=== PATIENT | male | born 1950 | race Caucasian/White ===

== ENCOUNTER 2019-01-24 13:00 | Inpatient (IN) | payer MEDICARE, MEDICAID ==
[~2019-01-24] VITALS: Ht 170.2 cm; Wt 74.9 kg
[2019-01-24] VITALS (24 sets, daily range): BP systolic 48–145; BP diastolic 33–108
[~2019-01-24 13:00] MED LIST: Cefepime HCl 1 GM in D5W 55 ML IVPB ONE; Vancomycin 1.5 GM in NS 275 ML IVPB ONE
--- NOTE | 2019-01-24 13:12 | NUR ---
ED Nurse Note: Pt brought in to ER by ambulance from [facility] due to chest congestion and low O2 sat. upon arrival pt had 3L/min via NC and O2 sat 76%. switched to non breather mask with 15L/min and RT at bedside but still 85%. ERMD at bedside and made aware. nasal suction done by RT. pt aao x 0 and non verbal, response to deep pain only. labored, lapid breathing noted with barking and congestion sound. pt is in gown and on layer up.
--- NOTE | 2019-01-24 13:52 | NUR ---
RESPIRATORY NOTE: Attemped ABG per MD order. Unable to successfully draw. Dr. Tavarez then attempted with the aid of ultrasound and was also unable to successfully draw. Will wait for pt's pressures to rise then will re-attempt draw at later time per MD.
[2019-01-24 13:53] LABS: BASOPHILS % (AUTO) 0.8 % (0.0-2.0); EOSINOPHILS % (AUTO) 0.3 % (0.0-3.0); HEMATOCRIT 44.8 % (42.0-52.0); HEMOGLOBIN 14.2 G/DL (14.2-18.0); LYMPHOCYTES % (AUTO) 21.5 % (20.0-45.0); MEAN CORPUSCULAR VOLUME 96 FL (80-99); MONOCYTES % (AUTO) 4.4 % (1.0-10.0); NEUTROPHILS % (AUTO) 73.1 % (45.0-75.0); PLATELET COUNT 240 K/UL (150-450); RED BLOOD COUNT 4.66 M/UL (4.70-6.10); RED CELL DISTRIBUTION WIDTH 13.8 % (11.6-14.8); WHITE BLOOD COUNT 13.9 K/UL (4.8-10.8)
--- NOTE | 2019-01-24 14:00 | NUR ---
HAND-OFF: Report given to EUGENIA Sterling. 1st IV ATB completed.
--- NOTE | 2019-01-24 14:09 | NUR ---
ED Nurse Note: RT at bedside for Bi-pap.
[2019-01-24 14:20] LABS: APPEARANCE,URINE SLIGHTLY CLOUDY; BILIRUBIN, URINE NEGATIVE (NEGATIVE); GLUCOSE, URINE (UA) NEGATIVE (NEGATIVE); KETONES,URINE NEGATIVE (NEGATIVE); LEUKOCYTE ESTERASE ,URINE 1+ (NEGATIVE); NITRITE,URINE POSITIVE (NEGATIVE); PH,URINE 6 (4.5-8.0); PROTEIN,URINE 1+ (NEGATIVE); UROBILINOGEN,URINE NORMAL MG/DL (0.0-1.0)
[2019-01-24 14:24] LABS: COLOR,URINE YELLOW
--- NOTE | 2019-01-24 14:27 | Emergency Room Report ---
History of Present Illness General Chief Complaint: Dyspnea/Respdistress Source: Medical Record (Kendall Tavarez MD) Present Illness HPI Patient is a 68-year-old male sent in by private ambulance after increased congestion and fever. Patient a prior history of COPD. He was noted to have increased temperature as well as increased difficulty with respirations. He had been previously hospitalized at [facility]. He is noted to have some COPD. History is limited by patient's mental status. (Kendall Tavarez MD) Allergies: Coded Allergies: No Known Allergies (Unverified , 01/24/19) Patient History Past Medical History: see triage record Reviewed Nursing Documentation: PMH: Agreed; PSxH: Agreed (Kendall Tavarez MD) Nursing Documentation-PMH Past Medical History: No History, Except For Hx Cardiac Problems: No - Anemia Hx Hypertension: Yes Hx COPD: Yes Hx Cancer: Yes - Hx Kidney CA, Hx Dialysis: No - Chronic Renal Disease Hx Neurological Problems: No - Osteoarthritis (Kendall Tavarez MD) Review of Systems All Other Systems: limited - Review of systems: Review systems is limited by patient's being a poor historian (Kendall Tavarez MD) Physical Exam Vital Signs Date Time Temp Pulse Resp B/P (MAP) Pulse Ox O2 Delivery O2 Flow Rate FiO2 01/24/19 13:02 97.9 116 20 129/76 (93) 97 Nasal Cannula 3.0 General Appearance: alert, mild distress, Chronically Ill Eyes: bilateral eye PERRL ENT: hearing grossly normal, dry mucus membranes, nasal congestion, pharyngeal erythema Neck: limited range of motion Respiratory: other - Coarse breath sounds bilaterally Cardiovascular #1: no JVD, other - Pulses present Gastrointestinal: normal inspection, normal bowel sounds, non tender, soft Musculoskeletal: decreased range of motion Neurologic: alert, responsive Skin: no rash (Kendall Tavarez MD) Procedures Critical Care Time Critical Care Time Given the critical condition in which the patient arrived, the patient was immediately assessed by myself and the nurse, and cardiac monitoring initiated due to the potential for rapid decompensation of the patient's clinical condition. During the course of the patient's stay, I spent a considerable amount of time at the bedside performing serial re-evaluations of the patient's hemodynamic and clinical status because of the recognized potential threat to life or limb in this condition. I then had a chance to review not only all of the available current laboratory and radiographic studies obtained today, but I also reviewed old records available to me at the time. Additionally, any ancillary information available including academic coordinator records were reviewed. Sequential vital signs were obtained. Critical Care time of 32 minutes was performed exclusive of billable procedures. (Dave Stevens MD) Central Line Central Line : Consent: Emergent Maximal Sterile Barrier Tech: yes cap, yes mask, yes sterile gown, yes sterile gloves, yes large sterile sheet, yes hand hygiene, yes chlorhexidine prep No Max Barrier Tech Because: emergency insertion Central Line Postion: femoral (R) Anesthesia: Lidocaine cc's of anesthesia: 5 Complications: none Central Line Post Position: sutured, good blood return Attempts: One Patient Tolerated: Well Complications: None (Dave Stevens MD) Intubation Intubation : Consent: Emergent Time of Intubation: 17:50 Intubation Method: orotracheal Tube Size (cm): 7.5 Medications: Etomidate, Rocuronium Breath Sounds after Intubation: equal Intubation Complications: no complications Post Intubation Xray: Yes Attempts: One Patient Tolerated: Well Complications: None (Dave Stevens MD) Medical Decision Making Diagnostic Impression: Primary Impression: Sepsis Qualified Codes: A41.9 - Sepsis, unspecified organism Additional Impressions: COPD (chronic obstructive pulmonary disease) Qualified Codes: J44.9 - Chronic obstructive pulmonary disease, unspecified Dehydration ER Course Patient presented for fever and increased congestion. Differential diagnosis include was not limited to pneumonia, chronic bronchitis, sepsis, among others. Because of complexity of patient's case laboratory tests and imaging studies were ordered. EKG interpreted by me showed sinus tachycardia. Patient was noted to have initial somnolence and was started on supplemental oxygen due to decreased oxygen saturation. He was noted to have symptoms consistent with sepsis and was started on IV antibiotics after blood cultures were obtained. Patient was noted to be normotensive. Patient is given IV fluids as well as IV antibiotics. He was started on BiPAP as well as end-tidal CO2 monitoring. Dr. Corey Short was contacted for inpatient management. Patient was endorsed to Dr. Stevens pending ABG. Labs Test 01/24/19 13:20 01/24/19 13:35 White Blood Count 13.9 K/UL (4.8-10.8) Red Blood Count 4.66 M/UL (4.70-6.10) Hemoglobin 14.2 G/DL (14.2-18.0) Hematocrit 44.8 % (42.0-52.0) Mean Corpuscular Volume 96 FL (80-99) Mean Corpuscular Hemoglobin 30.4 PG (27.0-31.0) Mean Corpuscular Hemoglobin Concent 31.6 G/DL (32.0-36.0) Red Cell Distribution Width 13.8 % (11.6-14.8) Platelet Count 240 K/UL (150-450) Mean Platelet Volume 6.2 FL (6.5-10.1) Neutrophils (%) (Auto) 73.1 % (45.0-75.0) Lymphocytes (%) (Auto) 21.5 % (20.0-45.0) Monocytes (%) (Auto) 4.4 % (1.0-10.0) Eosinophils (%) (Auto) 0.3 % (0.0-3.0) Basophils (%) (Auto) 0.8 % (0.0-2.0) Urine Color Yellow Urine Appearance Slightly cloudy Urine pH 6 (4.5-8.0) Urine Specific Stoddard 1.015 (1.005-1.035) Urine Protein 1+ (NEGATIVE) Urine Glucose (UA) Negative (NEGATIVE) Urine Ketones Negative (NEGATIVE) Urine Blood 2+ (NEGATIVE) Urine Nitrite Positive (NEGATIVE) Urine Bilirubin Negative (NEGATIVE) Urine Urobilinogen Normal MG/DL (0.0-1.0) Urine Leukocyte Esterase 1+ (NEGATIVE) Urine RBC 5-10 /HPF (0 - 0) Urine WBC 2-4 /HPF (0 - 0) Urine Squamous Epithelial Cells Few /LPF (NONE/OCC) Urine Bacteria Occasional /HPF (NONE) (Kendall Tavarez MD) ER Course Reevaluation 5:35 PM, patient became obtunded, hypotensive systolic blood pressure 70, requiring central line placement as well as intubation Patient will be upgraded to ICU Reevaluation 6:18 PM, blood pressures improving, fluid boluses started, norepinephrine titrated to effect Vent orders changed Dr. Short notified Laboratory Tests Test 01/24/19 13:20 01/24/19 13:35 01/24/19 15:15 White Blood Count 13.9 K/UL (4.8-10.8) H Red Blood Count 4.66 M/UL (4.70-6.10) L Hemoglobin 14.2 G/DL (14.2-18.0) Hematocrit 44.8 % (42.0-52.0) Mean Corpuscular Volume 96 FL (80-99) Mean Corpuscular Hemoglobin 30.4 PG (27.0-31.0) Mean Corpuscular Hemoglobin Concent 31.6 G/DL (32.0-36.0) L Red Cell Distribution Width 13.8 % (11.6-14.8) Platelet Count 240 K/UL (150-450) Mean Platelet Volume 6.2 FL (6.5-10.1) L Neutrophils (%) (Auto) 73.1 % (45.0-75.0) Lymphocytes (%) (Auto) 21.5 % (20.0-45.0) Monocytes (%) (Auto) 4.4 % (1.0-10.0) Eosinophils (%) (Auto) 0.3 % (0.0-3.0) Basophils (%) (Auto) 0.8 % (0.0-2.0) Urine Color Yellow Urine Appearance Slightly cloudy Urine pH 6 (4.5-8.0) Urine Specific Stoddard 1.015 (1.005-1.035) Urine Protein 1+ (NEGATIVE) H Urine Glucose (UA) Negative (NEGATIVE) Urine Ketones Negative (NEGATIVE) Urine Blood 2+ (NEGATIVE) H Urine Nitrite Positive (NEGATIVE) H Urine Bilirubin Negative (NEGATIVE) Urine Urobilinogen Normal MG/DL (0.0-1.0) Urine Leukocyte Esterase 1+ (NEGATIVE) H Urine RBC 5-10 /HPF (0 - 0) H Urine WBC 2-4 /HPF (0 - 0) Urine Squamous Epithelial Cells Few /LPF (NONE/OCC) Urine Bacteria Occasional /HPF (NONE) Arterial Blood pH 7.240 (7.350-7.450) Arterial Blood Partial Pressure CO2 61.6 mmHg (35.0-45.0) *H Arterial Blood Partial Pressure O2 23.0 mmHg (75.0-100.0) Arterial Blood HCO3 25.8 mmol/L (22.0-26.0) Arterial Blood Oxygen Saturation 28.5 % (95-100) *L Arterial Blood Base Excess -2.7 (-2-2) L Kvng Test N/a Microbiology Date/Time Source Procedure Growth Status 11/10/19 13:35 Nasal Nares - Final Complete 01/24/19 13:35 Nasal Nares - Final Complete (Dave Stevens MD) EKG Diagnostic Results Rate: tachycardiac Rhythm: NSR ST Segments: no acute changes (Kendall Tavarez MD) Last Vital Signs Date Time Temp Pulse Resp B/P (MAP) Pulse Ox O2 Delivery O2 Flow Rate FiO2 01/24/19 13:10 116 20 Non-Rebreather 15.0 01/24/19 13:10 97.9 98/56 78 Status: unchanged (Kendall Tavarez MD) Disposition: ADMITTED INPATIENT Condition: Serious Referrals: Corey Short DO (PCP) Kendall Tavarez MD Jan 24, 2019 14:27 Dave Stevens MD Jan 24, 2019 17:45
[2019-01-24] MEDS ORDERED: MULTIVITAMINS1 EAC2 ORAL (16:42)
[2019-01-24] MEDS ORDERED: LIDODERM700 M1 TOPIC (16:42)
[2019-01-24] MEDS ORDERED: ZINC SULFATE220 M1 ORAL (16:42)
[2019-01-24] MEDS ORDERED: PLAVIX75 MG ORAL (16:42)
[2019-01-24] MEDS ORDERED: FERROUS SULFAT325 MG ORAL (16:42)
[2019-01-24] MEDS ORDERED: ARICEPT5 MG ORAL (16:42)
[2019-01-24] MEDS ORDERED: PROTONIX40 MG ORAL (16:42)
[2019-01-24] MEDS ORDERED: VITAMIN B-12500 MCG ORAL (16:42)
[2019-01-24] MEDS ORDERED: NEURONTIN100 MG ORAL (16:42)
[2019-01-24] MEDS ORDERED: VITAMIN C500 M1 ORAL (16:42)
[2019-01-24] MEDS ORDERED: LOVENOX10 M4 SUBQ (16:42)
--- NOTE | 2019-01-24 17:15 | NUR ---
ED Nurse Note: ERMD at bedside, inserting central line in R femoral after BP found to be 88/45, pt tolerated well. Verbal order to start levophed per order and 2L NS. Levophed at 15mcg initially, monitoring at bedside. Please disregard 7391 entry on IV flow sheet.
--- NOTE | 2019-01-24 17:16 | NUR ---
NURSE NOTES: Report received from EUGENIA Fritz. awaiting for arrival to room 246-B.
[2019-01-24] MEDS ORDERED: Levophed 4mg/4mL Inj IV ONE (17:28)
[2019-01-24] MEDS ORDERED: Etomidate 40mg/20ml Inj IV ONE ×2 (17:45→20:37)
[2019-01-24] MEDS ORDERED: Rocuronium Bromide 50mg/5ml Inj IV ONE ×2 (17:45→20:37)
--- NOTE | 2019-01-24 17:45 | NUR ---
ED Nurse Note: ERMD at bedside intubating pt, RT present. Pt tolerating well. INtubation medications given per MD order.
--- NOTE | 2019-01-24 18:20 | NUR ---
ED Nurse Note: Levo titrated down to 10mcg. BP 147/72, ERMD aware
--- NOTE | 2019-01-24 18:25 | NUR ---
ED Nurse Note: Levo titrated down to 56mcg per ERMD order, BP 127/82
--- NOTE | 2019-01-24 18:40 | NUR ---
TRANSFER TO FLOOR: Patient transferred to as ordered, per DR Short. Report given to EUGENIA Cortes. Belongings and medications given to . Family and or S/O informed of transfer.
--- NOTE | 2019-01-24 19:00 | NUR ---
NURSE NOTES: Patient arrived from ICU with Levophed at 5mcg/min and propofol at 5mcg/kg/min, patient is saturating at 93-96% with RR of 22, Ventilator setting of ac 22, tv 480, FIO2 of 30% with peep of 5. ET-tube is 7.5 at 26 and awaiting for chest x-ray,
--- NOTE | 2019-01-24 19:30 | NUR ---
NURSE NOTES: Received report from Sebastian BELLO. patient in bed sedated Rass score -2, currently receiving Diprivan at 5mcg/kg/min and Levophed at 30mcg/min. pt bp @1914 48/36. Right femoral TLC intact, dressing dry and intact. s/p intubation in ER. Vent setting ETT 7.5/26cm AC 22, TV 480,Fi02 30%, peep of 5 satting 98%. SR on sous chef kitchen manager HR 88. Briar Shop Supervisor to redraw blood, previous lab drawn was hemolyzed.body assessment done. will follow wound care order. bed alarm on. bed locked and in low position. Will continue plan of care. will call MD for admission orders.
--- NOTE | 2019-01-24 19:31 | NUR ---
HAND-OFF: Report given to EUGENIA Winter.
--- NOTE | 2019-01-24 19:31 | NUR ---
NURSE NOTES: spoke with Dr. Anthony per he will place the admission order, and per MD D/C the Diprivan medication.
--- NOTE | 2019-01-24 19:50 | NUR ---
NURSE NOTES: Dr. Anthony placed an order noted and carried out.
[2019-01-24] MEDS ORDERED: Albuterol/Ipratropium 3ml neb HHN PRN (20:00)
[2019-01-24] MEDS ORDERED: Morphine Sulfate 4mg/ml Inj (IV USE ONLY) IVP PRN (20:00)
--- NOTE | 2019-01-24 20:00 | NUR ---
NURSE NOTES: Inserted OGT and Costello catheter per Md's order.
--- NOTE | 2019-01-24 20:00 | NUR ---
NURSE NOTES: Patient in bed sedated, no moaning no facial grimaces. Continue on Levophed @ 30mcg/min BP 127/61. turned and repositioned. Costello draining with dark danelle color urine. Kept clean and dry. No s/s of acute distress noted. frequent visual checks continued.
[2019-01-24] MEDS ORDERED: Norepinephrine Bitartrate 8 MG in D5W 500ml 550 ML IV SCH (20:15)
[2019-01-24] MEDS: Heparin 5000 units/ml inj SUBQ SCH (20:21)
[2019-01-24] MEDS ORDERED: Dyna-Hex 2% Top Sol 2oz TOPIC SCH (20:30)
[2019-01-24] MEDS: Norepinephrine Bitartrate 8 MG in D5W 500ml 492 ML IV SCH (20:58)
--- NOTE | 2019-01-24 21:07 | Diagnostic Imaging Report ---
Indication: NG tube placement Comparison: None Single view of the abdomen obtained Findings: The proximal port in the distal ports are both within the stomach. IMPRESSION: NG tube is satisfactory in position
[2019-01-24 21:12] LABS: ANION GAP 11 mmol/L (5-15); BLOOD UREA NITROGEN 33 mg/dL (7-18); CALCIUM 7.7 MG/DL (8.5-10.1); CARBON DIOXIDE 24 MMOL/L (21-32); CHLORIDE 109 MMOL/L (98-107); CREATININE 2.6 MG/DL (0.55-1.30); POTASSIUM 4.4 MMOL/L (3.5-5.1); SODIUM 144 MMOL/L (136-145)
[2019-01-24 21:25] LABS: ALANINE AMINOTRANSFERASE 18 U/L (12-78); ALBUMIN/GLOBULIN RATIO 0.4 (1.0-2.7); ALKALINE PHOSPHATASE 121 U/L (46-116); ASPARTATE AMINO TRANSFERASE 29 U/L (15-37); BILIRUBIN,TOTAL 0.9 MG/DL (0.2-1.0); CKMB 1.9 NG/ML (0.0-3.6); CREATINE KINASE 177 U/L (26-308); PHOSPHORUS 2.5 MG/DL (2.5-4.9)
[2019-01-24] MEDS ORDERED: Amikacin 1,000 MG in NS 110 ML IV SCH (22:00)
[2019-01-24] MEDS: Ertapenem 1 GM in NS 55 ML IV SCH (22:14)
[2019-01-24] MEDS ORDERED: Vancomycin 1 GM in D5W 275 ML IV SCH (23:45)
[2019-01-25] VITALS (64 sets, daily range): BP systolic 49–133; BP diastolic 31–90
--- NOTE | 2019-01-25 | NUR ---
NURSE NOTES: patient waking up with episode of trying to pull out tubing reality orientation provided, talk therapy provided and reposition patient not effective. MD aware with order bilateral soft wrist restraint. Titrated Levophed at 28mcg/min BP 127/61. will continue plan of care
--- NOTE | 2019-01-25 02:00 | NUR ---
NURSE NOTES: Bed bath given. temp 98 axillary. no s/s of acute distress noted.
[2019-01-25] MEDS: Norepinephrine Bitartrate 8 MG in D5W 500ml 492 ML IV SCH ×4 (02:05→17:29)
--- NOTE | 2019-01-25 03:00 | NUR ---
NURSE NOTES: Titrate Levophed at 26mcg/min BP 119/61, patient in bed with episode of pulling out tubing, bilateral soft wrist restraint checked every 2 hours. turned and repositioned. suctioned and oral care provided. frequent visual checks continued.
--- NOTE | 2019-01-25 04:31 | NUR ---
NURSE NOTES: wasted Diprivan 90ml with Charge Nurse, and signed wasted in Pyxis.
[2019-01-25 05:20] LABS: HEMATOCRIT 33.3 % (42.0-52.0); HEMOGLOBIN 10.6 G/DL (14.2-18.0); MEAN CORPUSCULAR VOLUME 95 FL (80-99); PLATELET COUNT 194 K/UL (150-450); RED BLOOD COUNT 3.53 M/UL (4.70-6.10); RED CELL DISTRIBUTION WIDTH 13.5 % (11.6-14.8)
[2019-01-25 05:40] LABS: WHITE BLOOD COUNT 29.7 K/UL (4.8-10.8)
[2019-01-25 05:46] LABS: ALANINE AMINOTRANSFERASE 11 U/L (12-78); ALBUMIN 1.6 G/DL (3.4-5.0); ALBUMIN/GLOBULIN RATIO 0.3 (1.0-2.7); ALKALINE PHOSPHATASE 104 U/L (46-116); ANION GAP 6 mmol/L (5-15); ASPARTATE AMINO TRANSFERASE 28 U/L (15-37); BILIRUBIN,DIRECT 0.1 MG/DL (0.0-0.3); BILIRUBIN,TOTAL 0.3 MG/DL (0.2-1.0); BLOOD UREA NITROGEN 29 mg/dL (7-18); CALCIUM 6.9 MG/DL (8.5-10.1); CARBON DIOXIDE 23 MMOL/L (21-32); CHLORIDE 111 MMOL/L (98-107); CREATININE 2.3 MG/DL (0.55-1.30); POTASSIUM 4.5 MMOL/L (3.5-5.1); SODIUM 140 MMOL/L (136-145)
--- NOTE | 2019-01-25 07:10 | NUR ---
HAND-OFF: Report given to Isreal Gracia RN.Endorsed to am nurse to follow up WBC to DR. Tesfaye. Dr. Anthony gave order for magnesium 1.7. give magnesium sulfate 2 gram noted and carried out.patient in bed resting. no s/s of acute distress noted.
--- NOTE | 2019-01-25 07:11 | NUR ---
NURSE NOTES: Received PT and report from EUGENIA Winter; PT received intubated ETT 7.5 @ 26cm at R-lip, vent settings AC 22; TV 500; 40%; peep 5; saturating at 100%; no respiratory distress noted, bilateral upper extremity is warm to touch, bilateral lower extremity is cool to touch, morning R-axillary temperature is 97.6; opens eyes with light sternal pain, has bilateral wrist restraints no S/S of injury, bilateral radial pulses present, will continue to monitor. VS stable, monitor showing SR @ HR 72; has R-fem TLC received infusing levophed @ 26mcg/min and NS @ 100cc. PT has mcmahon, patent and intact. Morning labs shows low Mg, will give PT Mg, followup on PT BS if sliding scale is needed. Will continue with plan of care and monitor PT.
[2019-01-25] MEDS: Pantoprazole Inj IVP SCH (08:43)
[2019-01-25] MEDS: Heparin 5000 units/ml inj SUBQ SCH ×2 (08:44→20:33)
--- NOTE | 2019-01-25 08:59 | NUR ---
NURSE NOTES: Morning meds given; PT has large oral sections, suctioning given, will continue to monitor. PT saturating at 99% after vent changes made.
[2019-01-25] MEDS ORDERED: NS 275ml ONE ×2 (09:03→16:21)
[2019-01-25] MEDS ORDERED: Tubing IV Secondary IV ONE ×2 (09:03→16:21)
[2019-01-25] MEDS ORDERED: NS Irrig 1000ml ONE (09:03)
[2019-01-25] MEDS ORDERED: Vancomycin 1.25gm/NS Premix q24h IVPB SCH (10:00)
--- NOTE | 2019-01-25 10:19 | Consultation ---
History of Present Illness General Date patient seen: Jan 25, 2019 Chief Complaint: Dyspnea/Respdistress Present Illness HPI 68 year old make with hx of dementia, schizophrenia, PVD with grafts, COPD, ? renal cell cancer, retirement resident presented to ER with CC of increasing shortness of breath. He was in respiratory failure in ER and got intubated and put on ventilator. He was hypotensive as well and needed Levophed drip. Allergies: Coded Allergies: No Known Allergies (Unverified , 01/24/19) Medication History Scheduled Ascorbic Acid* (Vitamin C*), 500 MG ORAL DAILY, (Reported) Clopidogrel Bisulfate* (Plavix*), 75 MG ORAL DAILY, (Reported) Cyanocobalamin (Vitamin B-12)* (Vitamin B-12*), 1,000 MCG ORAL QHS, (Reported) Donepezil Hcl* (Aricept*), 5 MG ORAL DAILY, (Reported) Enoxaparin* (Lovenox*), 40 MG SUBQ DAILY, (Reported) Ferrous Sulfate* (Ferrous Sulfate*), 325 MG ORAL DAILY, (Reported) Gabapentin* (Neurontin*), 300 MG ORAL THREE TIMES A DAY, (Reported) Lidocaine Patch* (Lidoderm Patch*), 1 PATCH TOPIC DAILY, (Reported) Multivitamins* (Multivitamins*), 1 TAB ORAL DAILY, (Reported) Pantoprazole* (Protonix*), 40 MG ORAL DAILY, (Reported) Zinc Sulfate (Zinc Sulfate*), 220 MG ORAL DAILY, (Reported) Patient History Healthcare decision maker Self Resuscitation status Full Code Advanced Directive on File No Past Medical/Surgical History Past Medical/Surgical History: (1) COPD (chronic obstructive pulmonary disease) (2) Chronic kidney disease (3) Malignant neoplasm of right kidney (4) PVD (peripheral vascular disease) (5) Schizophrenia Review of Systems All Other Systems: negative except mentioned in HPI Physical Exam General Appearance: WD/WN, no apparent distress Lines, tubes and drains: peripheral HEENT: normocephalic, atraumatic Neck: non-tender, normal alignment Respiratory/Chest: chest wall non-tender, lungs clear Breasts: no masses Cardiovascular/Chest: normal peripheral pulses Abdomen: normal bowel sounds, non tender Genitourinary/Rectal: normal genital exam, normal rectal exam Extremities: normal range of motion, non-tender Skin Exam: normal pigmentation 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 Last 24 Hour Vital Signs Date Time Temp Pulse Resp B/P (MAP) Pulse Ox O2 Delivery O2 Flow Rate FiO2 01/25/19 09:25 70 22 35 01/25/19 09:18 112/52 01/25/19 09:00 77 14 112/52 (72) 99 01/25/19 08:30 79 26 115/53 (73) 95 01/25/19 08:18 108/61 01/25/19 08:00 Mechanical Ventilator 01/25/19 08:00 40 01/25/19 08:00 74 22 108/61 (77) 99 01/25/19 07:30 97.6 71 23 121/57 (78) 100 01/25/19 07:18 106/87 01/25/19 07:07 67 22 106/87 (93) 93 01/25/19 07:06 74 23 40 01/25/19 07:05 65 22 49/31 (37) 95 01/25/19 07:00 66 22 55/33 (40) 97 01/25/19 07:00 106/87 01/25/19 06:45 66 22 112/52 (72) 97 01/25/19 06:30 62 22 115/56 (75) 99 01/25/19 06:15 62 22 111/56 (74) 99 01/25/19 06:00 63 22 112/59 (76) 99 01/25/19 06:00 111/56 01/25/19 05:45 67 22 115/60 (78) 99 01/25/19 05:30 68 22 115/57 (76) 100 01/25/19 05:15 65 22 40 01/25/19 05:15 67 21 114/57 (76) 100 01/25/19 05:00 114/57 01/25/19 05:00 68 21 112/56 (74) 100 01/25/19 04:45 69 22 115/58 (77) 98 01/25/19 04:30 71 24 118/58 (78) 99 01/25/19 04:19 73 19 113/56 (75) 100 01/25/19 04:15 72 22 87/51 (63) 100 01/25/19 04:00 40 01/25/19 04:00 116/58 01/25/19 04:00 97.9 71 22 116/58 (77) 99 01/25/19 04:00 Mechanical Ventilator 01/25/19 04:00 84 01/25/19 03:45 72 21 99/61 (74) 99 01/25/19 03:30 70 21 112/81 (91) 99 01/25/19 03:15 68 23 112/59 (76) 98 01/25/19 03:00 69 23 119/61 (80) 99 01/25/19 03:00 66 22 40 01/25/19 03:00 119/61 01/25/19 02:45 68 23 109/67 (81) 98 01/25/19 02:30 69 22 119/62 (81) 99 01/25/19 02:15 69 21 118/61 (80) 99 01/25/19 02:05 118/60 01/25/19 02:00 68 22 118/60 (79) 98 01/25/19 02:00 123/38 01/25/19 01:45 67 22 110/61 (77) 98 01/25/19 01:30 68 22 120/62 (81) 98 01/25/19 01:15 69 22 122/62 (82) 99 01/25/19 01:14 68 22 40 01/25/19 01:00 125/49 01/25/19 01:00 67 22 123/62 (82) 100 01/25/19 00:45 68 22 121/61 (81) 98 01/25/19 00:30 71 19 128/57 (80) 98 01/25/19 00:15 70 19 127/61 (83) 99 01/25/19 00:00 Mechanical Ventilator 01/25/19 00:00 Mechanical Ventilator 01/25/19 00:00 81 01/25/19 00:00 99.0 73 24 127/61 (83) 98 01/25/19 00:00 127/61 01/24/19 23:45 71 22 130/62 (84) 98 01/24/19 23:30 72 22 128/62 (84) 98 01/24/19 23:15 72 22 132/64 (86) 97 01/24/19 23:08 72 23 40 01/24/19 23:00 132/64 01/24/19 23:00 73 22 129/63 (85) 98 01/24/19 22:15 76 22 130/62 (84) 97 01/24/19 22:00 78 22 132/63 (86) 100 01/24/19 22:00 132/63 01/24/19 21:45 79 22 137/63 (87) 100 01/24/19 21:30 79 22 134/58 (83) 100 01/24/19 21:21 81 22 40 01/24/19 21:15 79 22 124/57 (79) 100 01/24/19 21:00 79 22 126/55 (78) 99 01/24/19 20:58 84/51 01/24/19 20:57 68/47 01/24/19 20:45 80 22 68/47 (54) 99 01/24/19 20:30 83 22 115/59 (77) 97 01/24/19 20:15 88 22 123/65 (84) 94 01/24/19 20:00 78 01/24/19 20:00 Mechanical Ventilator 01/24/19 20:00 30 01/24/19 20:00 123/65 01/24/19 20:00 89 22 122/62 (82) 94 01/24/19 19:45 89 22 122/62 (82) 94 01/24/19 19:30 22 127/62 Mechanical Ventilator 30 01/24/19 19:30 Endotracheal Tube 01/24/19 19:30 86 22 118/62 (80) 94 01/24/19 19:29 86 01/24/19 19:22 88 19 96 Mechanical Ventilator 30 01/24/19 19:15 99.4 89 22 48/36 (40) 94 01/24/19 19:14 48/36 01/24/19 19:05 96 01/24/19 19:00 100.0 96 22 125/66 (85) 92 01/24/19 18:56 90 22 30 01/24/19 18:40 98.2 95 25 127/82 100 Mechanical Ventilator 21 01/24/19 18:40 97.9 122 25 117/65 100 Mechanical Ventilator 6.0 21 01/24/19 18:38 25 117/65 Mechanical Ventilator 21 01/24/19 18:25 128/89 01/24/19 18:23 25 99/57 Mechanical Ventilator 21 01/24/19 18:20 147/80 01/24/19 18:10 90 24 21 01/24/19 17:53 77/52 01/24/19 17:52 77/52 01/24/19 17:30 98.4 105 25 77/52 100 21 01/24/19 17:00 94 24 100 Facial 100 01/24/19 17:00 98.2 96 25 60/33 100 6.0 100 01/24/19 15:00 97.9 126 25 145/105 100 6.0 100 01/24/19 15:00 88 26 100 Facial 100 01/24/19 14:00 90 24 98 Facial 40 01/24/19 14:00 97.9 122 24 118/108 98 Simple Mask 40 01/24/19 14:00 80 22 88 Simple Mask 6.0 44 01/24/19 13:10 116 20 Non-Rebreather 15.0 01/24/19 13:10 97.9 122 20 98/56 78 Non-Rebreather 15.0 01/24/19 13:02 97.9 116 20 129/76 (93) 97 Nasal Cannula 3.0 Intake and Output 01/24/19 01/25/19 19:00 07:00 Intake Total 0 ml 2593.898 ml Output Total 120 ml 900 ml Balance -120 ml 1693.898 ml Intake Oral 0 ml IV Total 2593.898 ml Output Urine Total 120 ml 900 ml Laboratory Tests Test 01/24/19 13:20 01/24/19 13:35 01/24/19 15:15 01/24/19 19:36 White Blood Count 13.9 K/UL (4.8-10.8) H Red Blood Count 4.66 M/UL (4.70-6.10) L Hemoglobin 14.2 G/DL (14.2-18.0) Hematocrit 44.8 % (42.0-52.0) Mean Corpuscular Volume 96 FL (80-99) Mean Corpuscular Hemoglobin 30.4 PG (27.0-31.0) Mean Corpuscular Hemoglobin Concent 31.6 G/DL (32.0-36.0) L Red Cell Distribution Width 13.8 % (11.6-14.8) Platelet Count 240 K/UL (150-450) Mean Platelet Volume 6.2 FL (6.5-10.1) L Neutrophils (%) (Auto) 73.1 % (45.0-75.0) Lymphocytes (%) (Auto) 21.5 % (20.0-45.0) Monocytes (%) (Auto) 4.4 % (1.0-10.0) Eosinophils (%) (Auto) 0.3 % (0.0-3.0) Basophils (%) (Auto) 0.8 % (0.0-2.0) Urine Color Yellow Urine Appearance Slightly cloudy Urine pH 6 (4.5-8.0) Urine Specific [place] 1.015 (1.005-1.035) Urine Protein 1+ (NEGATIVE) H Urine Glucose (UA) Negative (NEGATIVE) Urine Ketones Negative (NEGATIVE) Urine Blood 2+ (NEGATIVE) H Urine Nitrite Positive (NEGATIVE) H Urine Bilirubin Negative (NEGATIVE) Urine Urobilinogen Normal MG/DL (0.0-1.0) Urine Leukocyte Esterase 1+ (NEGATIVE) H Urine RBC 5-10 /HPF (0 - 0) H Urine WBC 2-4 /HPF (0 - 0) Urine Squamous Epithelial Cells Few /LPF (NONE/OCC) Urine Bacteria Occasional /HPF (NONE) Arterial Blood pH 7.240 (7.350-7.450) 7.381 (7.350-7.450) Arterial Blood Partial Pressure CO2 61.6 mmHg (35.0-45.0) *H 36.3 mmHg (35.0-45.0) Arterial Blood Partial Pressure O2 23.0 mmHg (75.0-100.0) 81.2 mmHg (75.0-100.0) Arterial Blood HCO3 25.8 mmol/L (22.0-26.0) 21.0 mmol/L (22.0-26.0) L Arterial Blood Oxygen Saturation 28.5 % (95-100) *L 95.0 % (95-100) Arterial Blood Base Excess -2.7 (-2-2) L -3.5 (-2-2) L Kvng Test N/a Positive Test 01/24/19 20:45 01/24/19 23:00 01/25/19 04:00 01/25/19 04:05 Sodium Level 144 MMOL/L (136-145) 140 MMOL/L (136-145) Potassium Level 4.4 MMOL/L (3.5-5.1) 4.5 MMOL/L (3.5-5.1) Chloride Level 109 MMOL/L (98-107) H 111 MMOL/L (98-107) H Carbon Dioxide Level 24 MMOL/L (21-32) 23 MMOL/L (21-32) Anion Gap 11 mmol/L (5-15) 6 mmol/L (5-15) Blood Urea Nitrogen 33 mg/dL (7-18) H 29 mg/dL (7-18) H Creatinine 2.6 MG/DL (0.55-1.30) H 2.3 MG/DL (0.55-1.30) H Estimat Glomerular Filtration Rate 24.7 mL/min (>60) 28.4 mL/min (>60) Glucose Level 222 MG/DL (74-106) H 260 MG/DL (74-106) H Lactic Acid Level 2.70 mmol/L (0.4-2.0) H 2.10 mmol/L (0.66-2.22) 2.80 mmol/L (0.4-2.0) H Calcium Level 7.7 MG/DL (8.5-10.1) L 6.9 MG/DL (8.5-10.1) L Phosphorus Level 2.5 MG/DL (2.5-4.9) Magnesium Level 1.7 MG/DL (1.8-2.4) L 1.6 MG/DL (1.8-2.4) L Total Bilirubin 0.9 MG/DL (0.2-1.0) 0.3 MG/DL (0.2-1.0) Aspartate Amino Transf (AST/SGOT) 29 U/L (15-37) 28 U/L (15-37) Alanine Aminotransferase (ALT/SGPT) 18 U/L (12-78) 11 U/L (12-78) L Alkaline Phosphatase 121 U/L (46-116) H 104 U/L (46-116) Total Creatine Kinase 177 U/L (26-308) Creatine Kinase MB 1.9 NG/ML (0.0-3.6) Creatine Kinase MB Relative Index 1.0 Troponin I 0.017 ng/mL (0.000-0.056) Pro-B-Type Natriuretic Peptide 2369 pg/mL (0-125) H Total Protein 6.9 G/DL (6.4-8.2) 6.2 G/DL (6.4-8.2) L Albumin 2.0 G/DL (3.4-5.0) L 1.6 G/DL (3.4-5.0) L Globulin 4.9 g/dL 4.6 g/dL Albumin/Globulin Ratio 0.4 (1.0-2.7) L 0.3 (1.0-2.7) L Triglycerides Level 61 MG/DL (30-150) Arterial Blood pH 7.357 (7.350-7.450) Arterial Blood Partial Pressure CO2 37.3 mmHg (35.0-45.0) Arterial Blood Partial Pressure O2 131.5 mmHg (75.0-100.0) H Arterial Blood HCO3 20.5 mmol/L (22.0-26.0) L Arterial Blood Oxygen Saturation 98.3 % (95-100) Arterial Blood Base Excess -4.5 (-2-2) L Kvng Test Positive White Blood Count 29.7 K/UL (4.8-10.8) #*H Red Blood Count 3.53 M/UL (4.70-6.10) L Hemoglobin 10.6 G/DL (14.2-18.0) L Hematocrit 33.3 % (42.0-52.0) L Mean Corpuscular Volume 95 FL (80-99) Mean Corpuscular Hemoglobin 30.2 PG (27.0-31.0) Mean Corpuscular Hemoglobin Concent 31.9 G/DL (32.0-36.0) L Red Cell Distribution Width 13.5 % (11.6-14.8) Platelet Count 194 K/UL (150-450) Mean Platelet Volume 5.6 FL (6.5-10.1) L Neutrophils (%) (Auto) % (45.0-75.0) Lymphocytes (%) (Auto) % (20.0-45.0) Monocytes (%) (Auto) % (1.0-10.0) Eosinophils (%) (Auto) % (0.0-3.0) Basophils (%) (Auto) % (0.0-2.0) Differential Total Cells Counted 100 Neutrophils % (Manual) 73 % (45-75) Lymphocytes % (Manual) 12 % (20-45) L Monocytes % (Manual) 9 % (1-10) Eosinophils % (Manual) 0 % (0-3) Basophils % (Manual) 0 % (0-2) Band Neutrophils 6 % (0-8) Platelet Estimate Adequate Platelet Morphology Normal Red Blood Cell Morphology Normal Direct Bilirubin 0.1 MG/DL (0.0-0.3) Random Vancomycin Level 12.7 ug/mL Test 01/25/19 06:20 Lactic Acid Level 2.20 mmol/L (0.66-2.22) Microbiology Date/Time Source Procedure Growth Status 01/24/19 13:35 Nasal Nares - Final Complete 01/24/19 13:35 Nasal Nares - Final Complete Height (Feet): 5 Height (Inches): 6.00 Weight (Pounds): 147 Medications Current Medications Medications (Trade) Dose Ordered Sig/Ricardo Route PRN Reason Start Time Stop Time Status Last Admin Dose Admin Acetaminophen (Tylenol) 650 mg Q4H PRN ORAL fever 01/24/19 20:00 02/23/19 19:59 Albuterol/ Ipratropium (Albuterol/ Ipratropium) 3 ml Q4H PRN HHN Shortness of Breath 01/24/19 20:00 01/29/19 19:59 Amikacin Sulfate 1000 mg/Sodium Chloride 114 ml @ 114 mls/hr ONCE IV 01/24/19 22:00 01/31/19 21:59 01/24/19 22:14 Chlorhexidine Gluconate (Roseanna-Hex 2%) 1 applic DAILY@2000 TOPIC 01/25/19 20:00 02/24/19 19:59 Dextrose (Dextrose 50%) 25 ml Q30M PRN IV Hypoglycemia 01/24/19 21:30 02/23/19 21:29 Dextrose (Dextrose 50%) 50 ml Q30M PRN IV Hypoglycemia 01/24/19 21:30 02/23/19 21:29 Ertapenem 1 gm/ Sodium Chloride 55 ml @ 110 mls/hr Q24H IV 01/24/19 23:00 01/29/19 22:59 01/24/19 22:14 Heparin Sodium (Porcine) (Heparin 5000 units/ml) 5,000 units EVERY 12 HOURS SUBQ 01/24/19 21:00 02/23/19 20:59 01/25/19 08:44 Lorazepam (Ativan 2mg/ml 1ml) 2 mg Q2H PRN IV For Anxiety 01/24/19 20:00 01/31/19 19:59 Magnesium Sulfate 100 ml @ 100 mls/hr Q1H IVPB 01/25/19 09:00 01/25/19 10:59 01/25/19 09:56 Morphine Sulfate (Morphine Sulfate) 4 mg Q4H PRN IVP Severe Pain (Pain Scale 7-10) 01/24/19 20:00 01/31/19 19:59 Norepinephrine Bitartrate 8 mg/ Dextrose 500 ml @ 0 mls/hr Q24H IV 01/24/19 21:00 02/23/19 20:14 01/25/19 07:18 Ondansetron HCl (Zofran) 4 mg Q6H PRN IVP Nausea & Vomiting 01/24/19 20:00 02/23/19 19:59 Pantoprazole (Protonix) 40 mg DAILY IVP 01/25/19 09:00 02/24/19 08:59 01/25/19 08:43 Polyethylene Glycol (Miralax) 17 gm DAILYPRN PRN ORAL Constipation 01/24/19 20:00 02/23/19 19:59 Propofol 100 ml @ 0 mls/hr Q24H IV 01/24/19 17:45 01/26/19 17:44 01/24/19 18:23 Sodium Chloride 1,000 ml @ 100 mls/hr Q10H IVLG 01/24/19 19:49 02/23/19 19:48 01/25/19 05:55 Vancomycin HCl (Vanco rx to dose) 1 ea DAILY PRN MISC . 01/25/19 06:15 02/24/19 06:14 Vancomycin/Sodium Chloride 275 ml @ 183.333 mls/hr ONCE IVPB 01/25/19 10:00 01/25/19 12:00 01/25/19 09:59 Assessment/Plan Problem List: (1) Acute respiratory failure ICD Codes: J96.00 - Acute respiratory failure, unspecified whether with hypoxia or hypercapnia SNOMED: 46953551 (2) Septic shock ICD Codes: A41.9 - Sepsis, unspecified organism; R65.21 - Severe sepsis with septic shock SNOMED: 59272406 (3) COPD (chronic obstructive pulmonary disease) ICD Codes: J44.9 - Chronic obstructive pulmonary disease, unspecified SNOMED: 92486417 Qualifiers: Qualified Codes: J44.9 - Chronic obstructive pulmonary disease, unspecified (4) Chronic kidney disease ICD Codes: N18.9 - Chronic kidney disease, unspecified SNOMED: 686510318 (5) Malignant neoplasm of right kidney ICD Codes: C64.1 - Malignant neoplasm of right kidney, except renal pelvis SNOMED: 358262482 (6) PVD (peripheral vascular disease) ICD Codes: I73.9 - Peripheral vascular disease, unspecified SNOMED: 431737849 (7) Schizophrenia ICD Codes: F20.9 - Schizophrenia, unspecified SNOMED: 90460085 Respiratory: monitor respiratory rate, adjust FIO2 Renal: F/U I&O, check electrolytes Infectious Disease: check cultures, add antibiotics Gastrointestinal: continue feedings/current rate Endocrine: monitor blood sugar Hematologic: monitor H/H, transfuse if hgb<8.5 Neurologic: PRN Ativan, keep patient comfortable Affect: PRN ativan Prophylaxis: Protonix Time Spent (Minutes): 30 Notes 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
--- NOTE | 2019-01-25 10:30 | NUR ---
NURSE NOTES: Late entry: Urine sample collected per MD Raj orders.
[2019-01-25 10:36] LABS: CREATINE KINASE 288 U/L (26-308)
[2019-01-25] MEDS: Hydrocortisone 100mg Inj IV SCH ×2 (10:57→21:33)
[2019-01-25] MEDS: NovoLOG Insulin Flexpen SUBQ SCH ×3 (11:02→23:43)
--- NOTE | 2019-01-25 11:30 | NUR ---
NURSE NOTES: PT remains on Levophed drip @ 26mcg/min, BP @ 117/57 on monitor. Will continue to monitor.
--- NOTE | 2019-01-25 11:44 | NUR ---
RD ASSESSMENT & RECOMMENDATIONS SEE CARE ACTIVITY FOR COMPLETE ASSESSMENT DAILY ESTIMATED NEEDS: Needs based on Critical care, sepsis, wounds 69kg 22-30 kcals/kg 3209-2462 total kcals 1.25-2 g protein/kg 86-138 g total protein 25-30 mL/kg 9073-5113 total fluid mLs NUTRITION DIAGNOSIS: Increased kcal and pro needs r/t sepsis, wound healing, and underweight status as evidenced by pt w respiratory distress now intubated, critically elev WBC (*29.7), elev BG (200's), w/ multiple wounds (refer to eval), pt is @88% if [place] Body Weight. CURRENT TF: Glucerna 1.2 @30ml ENTERAL NUTRITION RECOMMENDATIONS: VITAL AF 1.2 @60ml/hr x24 hrs to provide 1440ml, 1728 kcal, 108g pro, 1168ml free H2O - WITH HEMODYNAMIC STABILITY, rec TF change to VITAL 1.2 to better meet est needs. Start @20ml/hr for 6 hrs. Advance as tolerated 10ml/hr q4-6 hrs to goal. - Flush per MD. HOB over 30 degrees If pt remains on pressor support, rec trophic feeds of Vital 1.2 @5-10ml/hr to maintain gut integrity. ------ ADDITIONAL RECOMMENDATIONS: 1) Per SNF: HT 71 inches, 152 lbs (69.1kg) 2) Wound care: Add DANIELA in 4oz water BID via OGT + VIT C 250mg BID (f/up w/ WC specialist) 3) Monitor lytes daily, replete as needed 4) Daily calibrated bed scale wts
[2019-01-25 11:51] LABS: APPEARANCE,URINE CLEAR; BILIRUBIN, URINE NEGATIVE (NEGATIVE); COLOR,URINE PALE YELLOW; GLUCOSE, URINE (UA) NEGATIVE (NEGATIVE); KETONES,URINE NEGATIVE (NEGATIVE); LEUKOCYTE ESTERASE ,URINE 2+ (NEGATIVE); NITRITE,URINE NEGATIVE (NEGATIVE); PH,URINE 5 (4.5-8.0); PROTEIN,URINE 1+ (NEGATIVE); UROBILINOGEN,URINE NORMAL MG/DL (0.0-1.0)
--- NOTE | 2019-01-25 12:21 | NUR ---
NURSE NOTES: PT opened eyes, responds to questions, advised him that he is at a hospital in the ICU, asked if he wanted some medication for anxiety or comfort, PT denied by motioning his head left and right. PT remains on Levophed 26 mcg/min, will continue to monitor.
--- NOTE | 2019-01-25 12:52 | Diagnostic Imaging Report ---
Indication:Elevated Bun and Creatinine. Technique: Grayscale and duplex Doppler imaging of the kidneys performed. Comparison: None Findings: There are multiple cysts within the left kidney and a 3 cm simple cyst in the upper pole the right kidney. There are also echogenic foci in the left kidney possibly due to nonobstructive stones. There is no hydronephrosis. Visualization is in general limited due to body habitus.. The right kidney measures 10.1 cm. in length. The left kidney measures 10.4 cm. in length. The IVC is patent. Urinary bladder is unremarkable. IMPRESSION: Nonobstructive stones in the left kidney demonstrated. Bilateral renal cysts. Limited evaluation due to body habitus
--- NOTE | 2019-01-25 13:14 | Consultation ---
Consult Note Consult Note HPI: 68yo gentleman with PMH below presents with fever(100.1 is highest recorded in transfer packet) and worsened congestion from SNF. In the ED, pt was placed on oxygen then BiPAP but ultimately intubated. ID consulted for antimicrobial recommendation. ROS: unable to obtain PMH: h/o UTI COPD HTN Kidney cancer OA CKD Anemia Schizophrenia PVD CHF Meds: reviewed NKDA SHx: [facility] resident. h/o cigarette and etoh use. FHX: unable to obtain VS: afebrile Gen: NAD HEENT: ETT CV: RRR Resp: coarse. RRR Abd: soft. normoactive BS+. nondistended RLE: skin graft LE: no edema Neuro: sedated Labs: reviewed Assessment: Tmax 100.1 at long-term Leukocytosis, uptrending. no steroids. Lactic acidosis, fluctuating Shock on levophed, sepsis vs cardiogenic Possible PNA? COPD? CHF? thick secretions per nurse flu swab negative CXR: P TTE with EF 30-35% Possible UTI? new mcmahon placed in ED 01/25 UA 15-20 WBC Renal US: Nonobstructive stones in the left kidney demonstrated. Bilateral renal cysts. Limited evaluation due to body habitus. No diarrhea Ileus? RLE skin graft b/l LE heel pressure ulcers and sacral ulcer Tobacco abuse COPD HTN Kidney cancer OA CKD Anemia Schizophrenia PVD CHF Plan: continue ertapenem, amikacin, vancomycin #1 SP cefepime #1 SP flagyl #1 SP vancomycin #1 f/u Ucx f/u BCx f/u sputum cx HIV test urine legionella Thank you for this consult. [facility] will continue to follow the patient with you. Pili Lenz MD Jan 25, 2019 13:14
--- NOTE | 2019-01-25 14:24 | NUR ---
NURSE NOTES:WOUND CARE NOTES:Pt presented on admission with non-blanching erythema without induration to sacrum, R and L buttocks. Scattered darker areas noted within base of wound. Unstageable pressure injury L heel. Base of wound is q
--- NOTE | 2019-01-25 14:25 | Consultation ---
Consult Note Consult Note I was asked to evaluate at the request of Dr Short for renal failure Seen in ICU room B- Discussed with EUGENIA Bach examined data reviewed intubated has Costello Has OG tube ER: Patient is a 68-year-old male sent in by private ambulance after increased congestion and fever. Patient a prior history of COPD. He was noted to have increased temperature as well as increased difficulty with respirations. He had been previously hospitalized at [facility]. He is noted to have some COPD. History is limited by patient's mental status. No Known Allergies (Unverified , 01/24/19) Past Medical History: No History, Except For Hx Cardiac Problems: No - Anemia Hx Hypertension: Yes Hx COPD: Yes Hx Cancer: Yes - Hx Kidney CA, Hx Dialysis: No - Chronic Renal Disease Hx Neurological Problems: No - Osteoarthritis . Assessment/Plan Renal failure- Likely acute on Chronic Acute respiratory failure- intubated on Vent Septic Shock- On pressors COPD PVD Schizophrenia Hydrate 2D Echo Avoid nephrotoxics monitor renal parameters urine studies ADRIAN IMPRESSION: Nonobstructive stones in the left kidney demonstrated. Bilateral renal cysts. Bienvenido Gonzalez MD Jan 25, 2019 14:25
--- NOTE | 2019-01-25 14:29 | NUR ---
NURSE NOTES:WOUND CARE NOTES:Pt presented on admission with multiple pressure injuries.Non-blanching erythema without induration noted to sacrum ,R and L buttocks. Scattered areas that are darker and maroon in colour noted within base of wound.Scrotum is also erythematous. Unstageable pressure injury noted to L heel. Base of wound is 100% necrotic but with fluctuance.Erythematous margins with surrounding non-blanching erythema.(L)3.2cm x (W)3cm. R heel is boggy with non-blanching erythema.. Keloid scar noted distal R tibia. Partial thickness ulcer noted to dorsal R foot. Base of wound is moist and viable. Small amt serous exudate noted. Scattered small dry scabs noted to dorsal R foot. Tx.Plan: Swab Dorsal R foot and R heel with Betadine. Cover with Optifoam drsg. Change every 3 days and prn. Apply Moisture Barrier Paste to buttocks. Cover sacrum with Optifoam drsg. Change every 3 days and prn. Apply Cavilon Skin Barrier to L heel.Cover with Optifoam drsg. Change every 7 days and prn. APM/JELLY mattress. Reposition at least every 2hours or as tolerated. Off-load heels with pillow.
--- NOTE | 2019-01-25 15:37 | Diagnostic Imaging Report ---
Indication: Dyspnea Comparison: None A single view chest radiograph was obtained. Findings: Extensive opacities within upper lobes demonstrated. In addition there is generalized interstitial densities throughout both lung craig. Heart size is normal. The bones are osteopenic. IMPRESSION: Mixed interstitial alveolar infiltrates as described above.
--- NOTE | 2019-01-25 15:42 | Diagnostic Imaging Report ---
Indication: Dyspnea Comparison: 01/24/2019 A single view chest radiograph was obtained. Findings: Endotracheal tube is projected over the cristina and should be pulled back slightly. Bilateral infiltrates appear fairly extensive but unchanged. Heart size is stable. IMPRESSION: Endotracheal tube at the level of the cristina. This should be pulled back slightly. Bilateral infiltrates unchanged
--- NOTE | 2019-01-25 15:54 | Consultation ---
History of Present Illness General Date patient seen: Jan 25, 2019 Chief Complaint: Dyspnea/Respdistress Present Illness HPI I was asked by patient's physician of record to see patient in the intensive care unit and assist with the management. This is a very unfortunate 68-year- old male with multiple medical comorbidities who was brought in by EMS to the emergency department at [facility] for respiratory distress found to be in significant discomfort and distress. Patient was intubated and in the intensive care unit for remainder of care and management. He is currently on the ventilator support and very ill. He was noted to have worsening leukocytosis, anemia, resolving lactic acidosis, abnormal labs. Furthermore he was identified to have multiple wounds requiring care and management. Given his condition and care plan surgery was called to evaluate and assist with care and management. Patient seen, patient evaluated, chart reviewed. Patient on vent support minimally responsive only eyes open in the intensive care unit. Allergies: Coded Allergies: No Known Allergies (Unverified , 01/24/19) Medication History Scheduled Ascorbic Acid* (Vitamin C*), 500 MG ORAL DAILY, (Reported) Clopidogrel Bisulfate* (Plavix*), 75 MG ORAL DAILY, (Reported) Cyanocobalamin (Vitamin B-12)* (Vitamin B-12*), 1,000 MCG ORAL QHS, (Reported) Donepezil Hcl* (Aricept*), 5 MG ORAL DAILY, (Reported) Enoxaparin* (Lovenox*), 40 MG SUBQ DAILY, (Reported) Ferrous Sulfate* (Ferrous Sulfate*), 325 MG ORAL DAILY, (Reported) Gabapentin* (Neurontin*), 300 MG ORAL THREE TIMES A DAY, (Reported) Lidocaine Patch* (Lidoderm Patch*), 1 PATCH TOPIC DAILY, (Reported) Multivitamins* (Multivitamins*), 1 TAB ORAL DAILY, (Reported) Pantoprazole* (Protonix*), 40 MG ORAL DAILY, (Reported) Zinc Sulfate (Zinc Sulfate*), 220 MG ORAL DAILY, (Reported) Patient History Limited by: medical condition History Provided By: Medical Record, PMD Healthcare decision maker Self Resuscitation status Full Code Advanced Directive on File No Past Medical/Surgical History Past Medical/Surgical History: (1) COPD (chronic obstructive pulmonary disease) (2) Sepsis (3) Wound, open (4) Chronic kidney disease (5) Malignant neoplasm of right kidney (6) PVD (peripheral vascular disease) (7) Schizophrenia (8) Acute respiratory failure (9) Septic shock (10) Systolic heart failure Review of Systems ROS Narrative cannot obtain given patients medical condition Physical Exam General Appearance: mild distress Lines, tubes and drains: peripheral HEENT: mucous membranes moist Neck: normal inspection Respiratory/Chest: decreased breath sounds, on vent Cardiovascular/Chest: tachycardia Abdomen: soft, no organomegaly, no mass Skin Exam: warm/dry Neurologic: unresponsiveness Last 24 Hour Vital Signs Date Time Temp Pulse Resp B/P (MAP) Pulse Ox O2 Delivery O2 Flow Rate FiO2 01/25/19 15:30 80 23 35 01/25/19 15:25 124/81 01/25/19 15:00 72 18 125/61 (82) 98 01/25/19 14:30 74 27 103/79 (87) 99 01/25/19 14:25 125/61 01/25/19 14:00 70 26 120/55 (76) 99 01/25/19 13:30 67 27 120/59 (79) 99 01/25/19 13:27 65 22 35 01/25/19 13:25 120/59 01/25/19 13:00 65 27 118/58 (78) 97 01/25/19 12:30 65 31 118/58 (78) 98 01/25/19 12:25 111/57 01/25/19 12:00 40 01/25/19 12:00 98.3 67 23 111/57 (75) 98 01/25/19 12:00 Mechanical Ventilator 01/25/19 11:30 76 24 117/57 (77) 98 01/25/19 11:29 78 01/25/19 11:18 107/57 01/25/19 11:10 79 23 35 01/25/19 11:00 78 20 107/57 (74) 96 01/25/19 10:30 84 20 116/90 (99) 98 01/25/19 10:18 116/90 01/25/19 10:00 88 19 101/54 (70) 96 01/25/19 09:30 70 22 109/49 (69) 98 01/25/19 09:25 70 22 35 01/25/19 09:18 112/52 01/25/19 09:00 77 14 112/52 (72) 99 01/25/19 08:30 79 26 115/53 (73) 95 01/25/19 08:18 108/61 01/25/19 08:00 Mechanical Ventilator 01/25/19 08:00 40 01/25/19 08:00 73 01/25/19 08:00 74 22 108/61 (77) 99 01/25/19 07:30 97.6 71 23 121/57 (78) 100 01/25/19 07:18 106/87 01/25/19 07:07 67 22 106/87 (93) 93 01/25/19 07:06 74 23 40 01/25/19 07:05 65 22 49/31 (37) 95 01/25/19 07:00 66 22 55/33 (40) 97 01/25/19 07:00 106/87 01/25/19 06:45 66 22 112/52 (72) 97 01/25/19 06:30 62 22 115/56 (75) 99 01/25/19 06:15 62 22 111/56 (74) 99 01/25/19 06:00 63 22 112/59 (76) 99 01/25/19 06:00 111/56 01/25/19 05:45 67 22 115/60 (78) 99 01/25/19 05:30 68 22 115/57 (76) 100 01/25/19 05:15 65 22 40 01/25/19 05:15 67 21 114/57 (76) 100 01/25/19 05:00 114/57 01/25/19 05:00 68 21 112/56 (74) 100 01/25/19 04:45 69 22 115/58 (77) 98 01/25/19 04:30 71 24 118/58 (78) 99 01/25/19 04:19 73 19 113/56 (75) 100 01/25/19 04:15 72 22 87/51 (63) 100 01/25/19 04:00 40 01/25/19 04:00 116/58 01/25/19 04:00 97.9 71 22 116/58 (77) 99 01/25/19 04:00 Mechanical Ventilator 01/25/19 04:00 84 01/25/19 03:45 72 21 99/61 (74) 99 01/25/19 03:30 70 21 112/81 (91) 99 01/25/19 03:15 68 23 112/59 (76) 98 01/25/19 03:00 69 23 119/61 (80) 99 01/25/19 03:00 66 22 40 01/25/19 03:00 119/61 01/25/19 02:45 68 23 109/67 (81) 98 01/25/19 02:30 69 22 119/62 (81) 99 01/25/19 02:15 69 21 118/61 (80) 99 01/25/19 02:05 118/60 01/25/19 02:00 68 22 118/60 (79) 98 01/25/19 02:00 123/38 01/25/19 01:45 67 22 110/61 (77) 98 01/25/19 01:30 68 22 120/62 (81) 98 01/25/19 01:15 69 22 122/62 (82) 99 01/25/19 01:14 68 22 40 01/25/19 01:00 125/49 01/25/19 01:00 67 22 123/62 (82) 100 01/25/19 00:45 68 22 121/61 (81) 98 01/25/19 00:30 71 19 128/57 (80) 98 01/25/19 00:15 70 19 127/61 (83) 99 01/25/19 00:00 Mechanical Ventilator 01/25/19 00:00 Mechanical Ventilator 01/25/19 00:00 81 01/25/19 00:00 99.0 73 24 127/61 (83) 98 01/25/19 00:00 127/61 01/24/19 23:45 71 22 130/62 (84) 98 01/24/19 23:30 72 22 128/62 (84) 98 01/24/19 23:15 72 22 132/64 (86) 97 01/24/19 23:08 72 23 40 01/24/19 23:00 132/64 01/24/19 23:00 73 22 129/63 (85) 98 01/24/19 22:15 76 22 130/62 (84) 97 01/24/19 22:00 78 22 132/63 (86) 100 01/24/19 22:00 132/63 01/24/19 21:45 79 22 137/63 (87) 100 01/24/19 21:30 79 22 134/58 (83) 100 01/24/19 21:21 81 22 40 01/24/19 21:15 79 22 124/57 (79) 100 01/24/19 21:00 79 22 126/55 (78) 99 01/24/19 20:58 84/51 01/24/19 20:57 68/47 01/24/19 20:45 80 22 68/47 (54) 99 01/24/19 20:30 83 22 115/59 (77) 97 01/24/19 20:15 88 22 123/65 (84) 94 01/24/19 20:00 78 01/24/19 20:00 Mechanical Ventilator 01/24/19 20:00 30 01/24/19 20:00 123/65 01/24/19 20:00 89 22 122/62 (82) 94 01/24/19 19:45 89 22 122/62 (82) 94 01/24/19 19:30 22 127/62 Mechanical Ventilator 30 01/24/19 19:30 Endotracheal Tube 01/24/19 19:30 86 22 118/62 (80) 94 01/24/19 19:29 86 01/24/19 19:22 88 19 96 Mechanical Ventilator 30 01/24/19 19:15 99.4 89 22 48/36 (40) 94 01/24/19 19:14 48/36 01/24/19 19:05 96 01/24/19 19:00 100.0 96 22 125/66 (85) 92 01/24/19 18:56 90 22 30 01/24/19 18:40 98.2 95 25 127/82 100 Mechanical Ventilator 21 01/24/19 18:40 97.9 122 25 117/65 100 Mechanical Ventilator 6.0 21 01/24/19 18:38 25 117/65 Mechanical Ventilator 21 01/24/19 18:25 128/89 01/24/19 18:23 25 99/57 Mechanical Ventilator 21 01/24/19 18:20 147/80 01/24/19 18:10 90 24 21 01/24/19 17:53 77/52 01/24/19 17:52 77/52 01/24/19 17:30 98.4 105 25 77/52 100 21 01/24/19 17:00 94 24 100 Facial 100 01/24/19 17:00 98.2 96 25 60/33 100 6.0 100 Intake and Output 01/24/19 01/25/19 19:00 07:00 Intake Total 0 ml 2593.898 ml Output Total 120 ml 900 ml Balance -120 ml 1693.898 ml Intake Oral 0 ml IV Total 2593.898 ml Output Urine Total 120 ml 900 ml Laboratory Tests Test 01/24/19 19:36 01/24/19 20:45 01/24/19 23:00 01/25/19 04:00 Arterial Blood pH 7.381 (7.350-7.450) 7.357 (7.350-7.450) Arterial Blood Partial Pressure CO2 36.3 mmHg (35.0-45.0) 37.3 mmHg (35.0-45.0) Arterial Blood Partial Pressure O2 81.2 mmHg (75.0-100.0) 131.5 mmHg (75.0-100.0) H Arterial Blood HCO3 21.0 mmol/L (22.0-26.0) L 20.5 mmol/L (22.0-26.0) L Arterial Blood Oxygen Saturation 95.0 % (95-100) 98.3 % (95-100) Arterial Blood Base Excess -3.5 (-2-2) L -4.5 (-2-2) L Kvng Test Positive Positive Sodium Level 144 MMOL/L (136-145) Potassium Level 4.4 MMOL/L (3.5-5.1) Chloride Level 109 MMOL/L (98-107) H Carbon Dioxide Level 24 MMOL/L (21-32) Anion Gap 11 mmol/L (5-15) Blood Urea Nitrogen 33 mg/dL (7-18) H Creatinine 2.6 MG/DL (0.55-1.30) H Estimat Glomerular Filtration Rate 24.7 mL/min (>60) Glucose Level 222 MG/DL (74-106) H Lactic Acid Level 2.70 mmol/L (0.4-2.0) H 2.10 mmol/L (0.66-2.22) Calcium Level 7.7 MG/DL (8.5-10.1) L Phosphorus Level 2.5 MG/DL (2.5-4.9) Magnesium Level 1.7 MG/DL (1.8-2.4) L Total Bilirubin 0.9 MG/DL (0.2-1.0) Aspartate Amino Transf (AST/SGOT) 29 U/L (15-37) Alanine Aminotransferase (ALT/SGPT) 18 U/L (12-78) Alkaline Phosphatase 121 U/L (46-116) H Total Creatine Kinase 177 U/L (26-308) Creatine Kinase MB 1.9 NG/ML (0.0-3.6) Creatine Kinase MB Relative Index 1.0 Troponin I 0.017 ng/mL (0.000-0.056) Pro-B-Type Natriuretic Peptide 2369 pg/mL (0-125) H Total Protein 6.9 G/DL (6.4-8.2) Albumin 2.0 G/DL (3.4-5.0) L Globulin 4.9 g/dL Albumin/Globulin Ratio 0.4 (1.0-2.7) L Triglycerides Level 61 MG/DL (30-150) Test 01/25/19 04:05 01/25/19 06:20 01/25/19 10:30 01/25/19 13:15 White Blood Count 29.7 K/UL (4.8-10.8) #*H Red Blood Count 3.53 M/UL (4.70-6.10) L Hemoglobin 10.6 G/DL (14.2-18.0) L Hematocrit 33.3 % (42.0-52.0) L Mean Corpuscular Volume 95 FL (80-99) Mean Corpuscular Hemoglobin 30.2 PG (27.0-31.0) Mean Corpuscular Hemoglobin Concent 31.9 G/DL (32.0-36.0) L Red Cell Distribution Width 13.5 % (11.6-14.8) Platelet Count 194 K/UL (150-450) Mean Platelet Volume 5.6 FL (6.5-10.1) L Neutrophils (%) (Auto) % (45.0-75.0) Lymphocytes (%) (Auto) % (20.0-45.0) Monocytes (%) (Auto) % (1.0-10.0) Eosinophils (%) (Auto) % (0.0-3.0) Basophils (%) (Auto) % (0.0-2.0) Differential Total Cells Counted 100 Neutrophils % (Manual) 73 % (45-75) Lymphocytes % (Manual) 12 % (20-45) L Monocytes % (Manual) 9 % (1-10) Eosinophils % (Manual) 0 % (0-3) Basophils % (Manual) 0 % (0-2) Band Neutrophils 6 % (0-8) Platelet Estimate Adequate Platelet Morphology Normal Red Blood Cell Morphology Normal Sodium Level 140 MMOL/L (136-145) Potassium Level 4.5 MMOL/L (3.5-5.1) Chloride Level 111 MMOL/L (98-107) H Carbon Dioxide Level 23 MMOL/L (21-32) Anion Gap 6 mmol/L (5-15) Blood Urea Nitrogen 29 mg/dL (7-18) H Creatinine 2.3 MG/DL (0.55-1.30) H Estimat Glomerular Filtration Rate 28.4 mL/min (>60) Glucose Level 260 MG/DL (74-106) H Hemoglobin A1c 5.4 % (4.3-6.0) Lactic Acid Level 2.80 mmol/L (0.4-2.0) H 2.20 mmol/L (0.66-2.22) 1.70 mmol/L (0.4-2.0) Uric Acid 6.1 MG/DL (2.6-7.2) Calcium Level 6.9 MG/DL (8.5-10.1) L Magnesium Level 1.6 MG/DL (1.8-2.4) L Total Bilirubin 0.3 MG/DL (0.2-1.0) Direct Bilirubin 0.1 MG/DL (0.0-0.3) Aspartate Amino Transf (AST/SGOT) 28 U/L (15-37) Alanine Aminotransferase (ALT/SGPT) 11 U/L (12-78) L Alkaline Phosphatase 104 U/L (46-116) Total Creatine Kinase 288 U/L (26-308) Total Protein 6.2 G/DL (6.4-8.2) L Albumin 1.6 G/DL (3.4-5.0) L Globulin 4.6 g/dL Albumin/Globulin Ratio 0.3 (1.0-2.7) L Random Amikacin Level Pending Random Vancomycin Level 12.7 ug/mL HIV (1&2) Antibody Rapid Negative (NEGATIVE) Urine Color Pale yellow Urine Appearance Clear Urine pH 5 (4.5-8.0) Urine Specific [place] 1.010 (1.005-1.035) Urine Protein 1+ (NEGATIVE) H Urine Glucose (UA) Negative (NEGATIVE) Urine Ketones Negative (NEGATIVE) Urine Blood 2+ (NEGATIVE) H Urine Nitrite Negative (NEGATIVE) Urine Bilirubin Negative (NEGATIVE) Urine Urobilinogen Normal MG/DL (0.0-1.0) Urine Leukocyte Esterase 2+ (NEGATIVE) H Urine RBC 2-4 /HPF (0 - 0) H Urine WBC 15-20 /HPF (0 - 0) H Urine Squamous Epithelial Cells Occasional /LPF Urine Bacteria Occasional /HPF (NONE) Urine Eosinophils None seen (NONE SEEN) Urine Osmolality 323 mOsm/kg (429-449) L Urine Random Creatinine Pending Urine Random Microalbumin Pending Urine Random Sodium 98 mmol/L (20-110) Urine Microalbumin/Creatinine Ratio Pending Microbiology Date/Time Source Procedure Growth Status 01/25/19 03:00 Sputum Gram Stain - Final Resulted 01/25/19 03:00 Sputum Sputum Culture Pending Resulted Height (Feet): 5 Height (Inches): 6.00 Weight (Pounds): 147 Medications Current Medications Medications (Trade) Dose Ordered Sig/Ricardo Route PRN Reason Start Time Stop Time Status Last Admin Dose Admin Acetaminophen (Tylenol) 650 mg Q4H PRN ORAL fever 01/24/19 20:00 02/23/19 19:59 Albuterol/ Ipratropium (Albuterol/ Ipratropium) 3 ml Q4H PRN HHN Shortness of Breath 01/24/19 20:00 01/29/19 19:59 Amikacin Sulfate 1000 mg/Sodium Chloride 114 ml @ 114 mls/hr ONCE IV 01/24/19 22:00 01/31/19 21:59 01/24/19 22:14 Chlorhexidine Gluconate (Roseanna-Hex 2%) 1 applic DAILY@2000 TOPIC 01/25/19 20:00 02/24/19 19:59 Dextrose (Dextrose 50%) 25 ml Q30M PRN IV Hypoglycemia 01/24/19 21:30 02/23/19 21:29 Dextrose (Dextrose 50%) 50 ml Q30M PRN IV Hypoglycemia 01/24/19 21:30 02/23/19 21:29 Ertapenem 1 gm/ Sodium Chloride 55 ml @ 110 mls/hr Q24H IV 01/24/19 23:00 01/29/19 22:59 01/24/19 22:14 Heparin Sodium (Porcine) (Heparin 5000 units/ml) 5,000 units EVERY 12 HOURS SUBQ 01/24/19 21:00 02/23/19 20:59 01/25/19 08:44 Hydrocortisone (Solu-CORTEF) 100 mg EVERY 8 HOURS IV 01/25/19 11:00 02/24/19 10:59 01/25/19 10:57 Insulin Aspart (NovoLOG) BEFORE MEALS AND HS SUBQ 01/25/19 11:30 02/24/19 11:29 01/25/19 11:02 Lorazepam (Ativan 2mg/ml 1ml) 2 mg Q2H PRN IV For Anxiety 01/24/19 20:00 01/31/19 19:59 Morphine Sulfate (Morphine Sulfate) 4 mg Q4H PRN IVP Severe Pain (Pain Scale 7-10) 01/24/19 20:00 01/31/19 19:59 Norepinephrine Bitartrate 8 mg/ Dextrose 500 ml @ 0 mls/hr Q24H IV 01/24/19 21:00 02/23/19 20:14 01/25/19 12:25 Ondansetron HCl (Zofran) 4 mg Q6H PRN IVP Nausea & Vomiting 01/24/19 20:00 02/23/19 19:59 Pantoprazole (Protonix) 40 mg DAILY IVP 01/25/19 09:00 02/24/19 08:59 01/25/19 08:43 Polyethylene Glycol (Miralax) 17 gm DAILYPRN PRN ORAL Constipation 01/24/19 20:00 02/23/19 19:59 Propofol 100 ml @ 0 mls/hr Q24H IV 01/24/19 17:45 01/26/19 17:44 01/24/19 18:23 Sodium Chloride 1,000 ml @ 150 mls/hr Q6H40M IVLG 01/25/19 10:19 02/24/19 10:18 01/25/19 10:45 Vancomycin HCl (Vanco rx to dose) 1 ea DAILY PRN MISC . 01/25/19 06:15 02/24/19 06:14 Assessment/Plan Problem List: (1) Sepsis Assessment & Plan: low grade fever t max 100 tachycardic worsening leukocytosis lactic acidosis resolved ill appearing in ICU on vent support -IV fluids resuscitation -IV abx as per ID -trend labs -CXR noted; AM repeat -will follow with recs thank you ICD Codes: A41.9 - Sepsis, unspecified organism SNOMED: 03436812 Qualifiers: Qualified Codes: A41.9 - Sepsis, unspecified organism (2) Septic shock ICD Codes: A41.9 - Sepsis, unspecified organism; R65.21 - Severe sepsis with septic shock SNOMED: 88484339 (3) Wound, open Assessment & Plan: Patient presented on admission with multiple pressure injuries being identified. Non-blanching erythema without induration noted to sacrum ,Right and Left buttocks. Scattered areas that are darker and maroon in color noted within base of wound. Scrotum is also erythematous. Unstageable pressure injury noted to Left heel. Base of wound is 100% necrotic but soft. Erythematous margins with surrounding non-blanching erythema.(L)3.2cm x (W)3cm. no drainage Right heel is boggy with non-blanching erythema.. Keloid scar noted distal R tibia. Partial thickness ulcer noted to dorsal R foot. Base of wound is moist and viable. Small amt serous exudate noted. Scattered small dry scabs noted to dorsal R foot. Tx.Plan: Swab Dorsal R foot and R heel with Betadine. Cover with Optifoam drsg. Change every 3 days and prn. Apply Moisture Barrier Paste to buttocks. Cover sacrum with Optifoam drsg. Change every 3 days and prn. Apply Cavilon Skin Barrier to L heel.Cover with Optifoam drsg. Change every 7 days and prn. APM/JELLY mattress. Reposition at least every 2hours or as tolerated. Off-load heels with pillow. Nutritional Optimization Will monitor while in critical condition ICD Codes: T14.8XXA - Other injury of unspecified body region, initial encounter SNOMED: 518832156 Mauricio Anne Jan 25, 2019 15:54
[2019-01-25] MEDS: LORazepam Inj 2mg/ml 1ml IV PRN ×2 (15:55→21:33)
--- NOTE | 2019-01-25 16:10 | Diagnostic Imaging Report ---
Indication: Dyspnea Comparison: 01/24/2019 A single view chest radiograph was obtained. Findings: There is an increasing infiltrate at the right lung base. Stable upper lobe infiltrates and left basilar infiltrate and generalized interstitial prominence noted. Endotracheal tube is in good position about 2 cm above the cristina. Heart size is stable. IMPRESSION: Slightly increasing right basilar infiltrate. Fairly extensive bilateral upper lobe infiltrates and generalized interstitial disease noted
--- NOTE | 2019-01-25 16:29 | NUR ---
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 97.9 HR 116 RR 20 B/P 129/76 AC 22 TV 499 FIO2 1005 PEEP 5 WBC 13.9 BUN 33 CR 2.6 LACTID ACID 2.70 BNP 2369 PH 7.24 PCO2 61.6 PO2 23.0 O2 SAT 25.5 UA+ PROTEIN,BLOOD,NITRITES,LEUKOCYTE ESTERASE,RBC,WBC CXR= MIXED INTERSTITIAL ALVEOLAR INFILTRATES IS: VANCO IV CEFEPIME IV FLAGYL IV ADMITTED TO ICU ICU STATUS DCP PENDING HOSPITAL STAY
--- NOTE | 2019-01-25 16:45 | History and Physical Report ---
DATE OF ADMISSION: 01/24/2019 DATE AND TIME SEEN: 01/25/2019 at 10 a.m. CONSULTANTS: 1. Ron Anthony M.D. 2. Sammy Helm M.D. 3. Mauricio Anne M.D. 4. Michael Tesfaye M.D. CHIEF COMPLAINT: Respiratory failure, fever, sepsis, tachycardia, right heel and sacral wound. BRIEF HISTORY: This is a 68-year-old male from [facility], presented with above-mentioned diagnosis, went into respiratory failure, was intubated and admitted to ICU. Currently, intubated, sedated, lethargic in ICU, nonverbal. REVIEW OF SYSTEMS: Unavailable. PAST MEDICAL HISTORY: Include COPD, CKD, malignant neoplasm of the right kidney, PVD, schizophrenia. PAST SURGICAL HISTORY: Unknown. ALLERGIES: Denies. MEDICATIONS: Include chlorhexidine, vancomycin, pantoprazole, magnesium, ertapenem, norepinephrine, albuterol, lorazepam. SOCIAL HISTORY: Unable to obtain secondary to the patient's condition. PHYSICAL EXAMINATION: GENERAL: Intubated, sedated, lethargic in ICU, nonverbal. VITAL SIGNS: Pulse 70, respirations 20, blood pressure 112/52. CARDIOVASCULAR: No murmur. LUNGS: Poor air exchange. ABDOMEN: Bowel sounds distant. EXTREMITIES: No cyanosis or edema. LABORATORY AND DIAGNOSTIC DATA: Labs at this time show white count 29, H and H 10/33, and platelets 197,000. BMP shows sodium 111, BUN/creatinine 20/2.3. Calcium 6.9. Albumin 1.6. A 1+ leukocyte esterase in the urine. Urine tox is none available. ASSESSMENT: 1. Respiratory failure. 2. Fever. 3. Cough. 4. Leukocytosis. 5. Sepsis. 6. . 7. Tachycardia. 8. Right heel and sacral decubitus. 9. COPD. 10. CKD. 11. Cancer, right kidney. 12. PVD. 13. Schizophrenia. PLAN: 1. Vent per Pulmonary. 2. Antibiotics . 3. Wound care. 4. Blood pressure and blood sugar control. 5. We will add Nephrology evaluation. Corey Short D.O. DR: DANTE JOB#: [id number] CC:
--- NOTE | 2019-01-25 17:44 | NUR ---
NURSE NOTES: PT is more aware, but does not listen to commands. Bilateral wrist restraints still in place, no skin issues, bilateral radial pulses still present. PT is clean, no BM noted. Total linens changed. Will continue to monitor PT.
--- NOTE | 2019-01-25 19:15 | NUR ---
HAND-OFF: Report and PT given to Jaeln Weir RN.
--- NOTE | 2019-01-25 19:30 | NUR ---
NURSE NOTES: PATIENT OPEN EYES, RESPONSE TO NAME, ON ETT TO VENT, AC22/TV500/FIO2 35%/PEEP5, O2 SATURATION OVER 97% NOTED, HEART RATE 70'S/MIN SR NOTED, ABDOMEN SOFT, NON TENDER, NO BM NOTED, OGT INTACT AND PATENT, NO N/V STATUS, F/C INTACT AND PATENT, YELLOW URINE OUTED, TLC TO RIGHT FEMORAL, INTACT AND PATENT, ONGOING NS AT 150ML/HR AND LEVOPHED 24MCG/MIN VIA TLC, 2 POINT SOFT RESTRAINTS FOR SAFETY, ON P200 BED, LOCKED BED, KEPT HOB 30 DEGREES AND BED ALARM, PROVIDED CALL LIGHT WITHIN REACH, WILL CONTINUE TO MONITOR.
[2019-01-25] MEDS: Dyna-Hex 2% Top Sol 2oz TOPIC SCH (19:55)
[2019-01-25] MEDS ORDERED: Amikacin Rx to dose MISC PRN (20:45)
--- NOTE | 2019-01-25 21:33 | NUR ---
NURSE NOTES: GIVEN ATIVAN 2MG BY IVP SLOWLY PRN ORDER FOR ANXIETY, WILL CONTINUE TO MONITOR.
--- NOTE | 2019-01-25 22:10 | NUR ---
NURSE NOTES: PATIENT CALM, SLEEPING STATUS, WILL CONTINUE PLAN OF CARE.
[2019-01-25] MEDS: Ertapenem 1 GM in NS 55 ML IV SCH (22:40)
[2019-01-26] VITALS (50 sets, daily range): BP systolic 86–134; BP diastolic 53–105
[2019-01-26] MEDS: Norepinephrine Bitartrate 8 MG in D5W 500ml 492 ML IV SCH ×2 (00:12→11:00)
--- NOTE | 2019-01-26 00:30 | NUR ---
NURSE NOTES: PATIENT AWOKE, IRRITABLE IN BED, ORAL CARE WAS DONE, TRIED TO TOUCH ENDOTUBE, SECURED RESTRAINTS FOR SAFETY.
--- NOTE | 2019-01-26 02:22 | NUR ---
NURSE NOTES: VSS, ON LEVOPHED DRIP 14MCG/MIN VIA TLC, NO PAIN OR DISTRESS NOTED AT THIS TIME.
--- NOTE | 2019-01-26 04:10 | NUR ---
NURSE NOTES: MORNING CARE WAS DONE, NO BOWEL MOVEMENT STATUS.
[2019-01-26 05:09] LABS: HEMATOCRIT 32.1 % (42.0-52.0); HEMOGLOBIN 10.6 G/DL (14.2-18.0); MEAN CORPUSCULAR VOLUME 93 FL (80-99); PLATELET COUNT 215 K/UL (150-450); RED BLOOD COUNT 3.44 M/UL (4.70-6.10); RED CELL DISTRIBUTION WIDTH 13.5 % (11.6-14.8)
[2019-01-26 05:21] LABS: INR 1.1 (0.9-1.1)
[2019-01-26 05:31] LABS: ALANINE AMINOTRANSFERASE 17 U/L (12-78); ALBUMIN 1.7 G/DL (3.4-5.0); ALBUMIN/GLOBULIN RATIO 0.4 (1.0-2.7); ALKALINE PHOSPHATASE 109 U/L (46-116); ANION GAP 9 mmol/L (5-15); ASPARTATE AMINO TRANSFERASE 37 U/L (15-37); BILIRUBIN,TOTAL 0.3 MG/DL (0.2-1.0); BLOOD UREA NITROGEN 20 mg/dL (7-18); CALCIUM 7.3 MG/DL (8.5-10.1); CARBON DIOXIDE 24 MMOL/L (21-32); CHLORIDE 109 MMOL/L (98-107); CREATININE 1.6 MG/DL (0.55-1.30); PHOSPHORUS 2.2 MG/DL (2.5-4.9); POTASSIUM 3.9 MMOL/L (3.5-5.1); SODIUM 142 MMOL/L (136-145)
[2019-01-26 05:46] LABS: WHITE BLOOD COUNT 23.9 K/UL (4.8-10.8)
[2019-01-26] MEDS: Hydrocortisone 100mg Inj IV SCH ×3 (05:46→21:26)
[2019-01-26] MEDS: NovoLOG Insulin Flexpen SUBQ SCH ×4 (05:47→23:32)
[2019-01-26 05:52] LABS: FERRITIN 199 NG/ML (8-388); LACTATE DEHYDROGENASE 206 U/L (81-234)
--- NOTE | 2019-01-26 06:00 | NUR ---
NURSE NOTES: STARTED GLUCERNA 1.2 FEEDING AT 10ML/HR VIA OGT AT 0300AM, NO RESIDUE NOTED AT THIS TIME, KEPT HOB 30 DEGREES.
[2019-01-26 06:17] LABS: % IRON SATURATION 15 % (15-50); IRON 24 ug/dL (50-175); TOTAL IRON BINDING CAPACITY 159 ug/dL (250-450)
--- NOTE | 2019-01-26 06:20 | NUR ---
NURSE NOTES: NO ACUTE DISTRESS NOTED AT THIS SHIFT.
--- NOTE | 2019-01-26 06:32 | NUR ---
RESPIRATORY NOTE: Received pt on ETT 7.5@25cm lip line, secured with anchor fast, with current vent settings: AC 22-500-35%- peep 5. Pt is unable to follow commands, respond to stimuli. No SOB or resp distress noted at this time. Alarms are set and audible, vent is plugged into the red outlet, ambu bag is at bedside. Vent circuits and suction tubing are secured and out of the way. Will continue to monitor pt.
--- NOTE | 2019-01-26 07:05 | NUR ---
NURSE NOTES: ACCORDING TO THE RT, WEANING WILL BE START AT 0830AM, HOLD FEEDING. Addendum: 01/26/19 at 0734 aminah HIGHTOWER RN NURSE NOTES: WRONG PATIENT.
--- NOTE | 2019-01-26 07:15 | NUR ---
HAND-OFF: Report given to EUGENIA BOB. Addendum: 01/26/19 at 4660 aminah HIGHTOWER RN NURSE NOTES: WRONG PATIENT.
--- NOTE | 2019-01-26 07:32 | NUR ---
HAND-OFF: Report given to CN. MIKAYLA
--- NOTE | 2019-01-26 08:30 | NUR ---
NURSE NOTES: Received pt from EUGENIA Forde. Pt is obtunded, responds to shaking and deep pain. Levophed gtt running @ 14mcg/kg/hr via right femoral TLC. Orally intubated with ETT 7.5/26cm at lip line, AC 22/TV500/Fio2 35%/+5, SPO2 96%. moderate thick secretions. Bilateral wrist restraints in place, skin intact and warm to touch. SR on case monitor. Afebrile; ax temp 98.7. OGT running Glucerna 1.2@20ml/hr, HOB 35 degrees, no residual, tolerating well. Bed locked, alarmed and in lowest position. Oral care done.
--- NOTE | 2019-01-26 08:45 | NUR ---
RESPIRATORY NOTE: Placed pt on CPAP PS 8 per weaning protocol. Pt passed everything except for NIF -8.4. Pt failed the weaning criteria. Placed pt back on AC mode per weaning protocol. EUGENIA Dubon made aware. Awaiting for MD's order. Will continue to monitor pt.
--- NOTE | 2019-01-26 08:55 | NUR ---
RADIOLOGY DEPT.,CHEST X-RAY DONE.-P.DYE
[2019-01-26] MEDS: Pantoprazole Inj IVP SCH (09:25)
[2019-01-26] MEDS: Heparin 5000 units/ml inj SUBQ SCH ×2 (09:25→20:30)
--- NOTE | 2019-01-26 09:30 | NUR ---
NURSE NOTES: Titrated Levophed to 8mcg/min, BP 127/78. Turned and repositioned.
--- NOTE | 2019-01-26 10:06 | Pulmonolgy Critical Care Note ---
Critical Care - Asmt/Plan Problems: (1) Acute respiratory failure (2) Septic shock (3) Systolic heart failure (4) Chronic kidney disease (5) Malignant neoplasm of right kidney (6) COPD (chronic obstructive pulmonary disease) (7) Schizophrenia Respiratory: monitor respiratory rate, adjust FIO2, CXR Cardiac: continue pressors, continue to monitor HR/BP Renal: F/U I&O, check electrolytes Infectious Disease: check cultures, continue antibiotics Gastrointestinal: continue feedings/current rate, hold feedings Endocrine: monitor blood sugar, continue sliding scale insulin Hematologic: monitor H/H Neurologic: PRN Ativan Affect: PRN ativan Prophylaxis: Protonix Disposition: keep in ICU Notes Reviewed: cardio, renal Discussed with: nurses, consultants, high risk case managerrn manager - Objective Last 24 Hour Vital Signs Date Time Temp Pulse Resp B/P (MAP) Pulse Ox O2 Delivery O2 Flow Rate FiO2 01/26/19 09:30 82 20 115/68 (84) 97 01/26/19 09:28 83 22 121/73 (89) 97 01/26/19 09:00 87 25 133/77 (95) 96 01/26/19 08:45 88 29 35 01/26/19 08:30 97.6 92 24 127/77 (94) 95 01/26/19 08:00 90 24 133/77 (95) 95 01/26/19 08:00 127/77 01/26/19 08:00 35 01/26/19 08:00 90 01/26/19 08:00 Mechanical Ventilator 01/26/19 07:30 91 24 108/80 (89) 95 01/26/19 07:00 95 26 125/74 (91) 95 01/26/19 06:32 94 24 35 01/26/19 06:21 95 28 134/72 (92) 96 01/26/19 06:00 92 25 117/105 (109) 94 01/26/19 06:00 117/105 01/26/19 05:30 79 21 131/75 (93) 98 01/26/19 05:10 82 22 35 01/26/19 05:00 121/68 01/26/19 05:00 78 22 121/68 (85) 97 01/26/19 04:30 87 30 118/70 (86) 95 01/26/19 04:12 97.5 83 22 127/71 (89) 96 01/26/19 04:00 Mechanical Ventilator 01/26/19 04:00 35 01/26/19 03:49 83 01/26/19 03:20 78 22 35 01/26/19 03:16 80 29 117/72 (87) 96 01/26/19 03:00 86/74 01/26/19 03:00 76 21 86/74 (78) 97 01/26/19 02:30 79 23 118/73 (88) 95 01/26/19 02:00 121/80 01/26/19 02:00 76 22 121/80 (94) 98 01/26/19 01:30 84 24 123/71 (88) 97 01/26/19 01:03 80 27 35 01/26/19 01:00 86 23 121/72 (88) 96 01/26/19 01:00 121/72 01/26/19 00:30 81 26 120/72 (88) 97 01/26/19 00:12 121/74 01/26/19 00:00 80 01/26/19 00:00 35 01/26/19 00:00 97.8 80 28 121/74 (90) 98 01/26/19 00:00 Mechanical Ventilator 01/25/19 23:30 77 26 126/77 (93) 98 01/25/19 23:00 79 25 122/72 (89) 97 01/25/19 23:00 122/72 01/25/19 22:40 77 26 35 01/25/19 22:30 78 26 131/72 (91) 97 01/25/19 22:00 133/77 01/25/19 22:00 81 33 132/77 (95) 98 01/25/19 21:30 81 27 121/65 (83) 97 01/25/19 21:00 130/73 01/25/19 21:00 84 27 35 01/25/19 21:00 77 23 130/73 (92) 98 01/25/19 20:30 83 31 129/76 (93) 98 01/25/19 20:30 129/76 01/25/19 20:00 Mechanical Ventilator 01/25/19 20:00 35 01/25/19 20:00 80 01/25/19 20:00 133/71 01/25/19 20:00 97.7 80 32 133/71 (91) 98 01/25/19 19:30 119/69 01/25/19 19:30 80 26 119/69 (86) 97 01/25/19 19:00 80 38 133/74 (93) 100 01/25/19 18:54 83 30 35 01/25/19 18:29 127/76 01/25/19 18:00 77 26 131/76 (94) 99 01/25/19 17:30 76 13 122/81 (95) 99 01/25/19 17:29 100/59 01/25/19 17:29 27 100/59 Mechanical Ventilator 35 01/25/19 17:25 100/59 01/25/19 17:00 97.8 79 27 100/59 (73) 96 01/25/19 16:47 78 23 35 01/25/19 16:30 78 28 129/84 (99) 100 01/25/19 16:25 129/84 01/25/19 16:00 Mechanical Ventilator 01/25/19 16:00 97.8 82 23 120/65 (83) 99 01/25/19 16:00 78 01/25/19 16:00 35 01/25/19 15:30 80 20 124/81 (95) 99 01/25/19 15:30 80 23 35 01/25/19 15:25 124/81 01/25/19 15:00 72 18 125/61 (82) 98 01/25/19 14:30 74 27 103/79 (87) 99 01/25/19 14:25 125/61 01/25/19 14:00 70 26 120/55 (76) 99 01/25/19 13:30 67 27 120/59 (79) 99 01/25/19 13:27 65 22 35 01/25/19 13:25 120/59 01/25/19 13:00 65 27 118/58 (78) 97 01/25/19 12:30 65 31 118/58 (78) 98 01/25/19 12:25 111/57 01/25/19 12:00 35 01/25/19 12:00 98.3 67 23 111/57 (75) 98 01/25/19 12:00 Mechanical Ventilator 01/25/19 11:30 76 24 117/57 (77) 98 01/25/19 11:29 78 01/25/19 11:18 107/57 01/25/19 11:10 79 23 35 01/25/19 11:00 78 20 107/57 (74) 96 01/25/19 10:30 84 20 116/90 (99) 98 01/25/19 10:18 116/90 Status: obtunded Condition: critical HEENT: atraumatic Lungs: clear, chest wall tender Heart: HR/BP stable Abdomen: soft, active bowel sounds Extremities: no C/C/E Decubiti: location Micro: Microbiology Date/Time Source Procedure Growth Status 01/24/19 15:15 Blood Blood Culture - Preliminary NO GROWTH AFTER 24 HOURS Resulted 01/24/19 13:25 Blood Blood Culture - Preliminary NO GROWTH AFTER 24 HOURS Resulted 01/25/19 03:00 Sputum Gram Stain - Final Resulted 01/25/19 03:00 Sputum Sputum Culture Pending Resulted 01/24/19 16:20 Nasal Nares MRSA Culture - Final Staphylococcus Aureus - Mrsa Complete 01/24/19 13:35 Nasal Nares - Final Complete 01/24/19 13:35 Nasal Nares - Final Complete Accucheck: 162 Critical Care - Subjective ROS Limited/Unobtainable: Yes Condition: critical EKG Rhythm: Sinus Rhythm FI02: 35 Vent Support Breath Rate: 22 Vent Support Mode: AC Vent Tidal Volume: 500 Sputum Amount: Large PEEP: 5.0 PIP: 24 Tube Feeding Amount: 20 I&O: Intake and Output 01/25/19 01/26/19 19:00 07:00 Intake Total 3055.000 ml 2574.8 ml Output Total 985 ml 1435 ml Balance 2070.000 ml 1139.8 ml IV Total 3055.000 ml 2534.8 ml Tube Feeding 40 ml Output Urine Total 985 ml 1435 ml ET-Tube: 7.5 ET Position: 25 Labs: Laboratory Tests Test 01/25/19 10:30 01/25/19 13:15 01/25/19 21:04 01/26/19 02:50 Urine Color Pale yellow Urine Appearance Clear Urine pH 5 (4.5-8.0) Urine Specific Dorothy 1.010 (1.005-1.035) Urine Protein 1+ (NEGATIVE) H Urine Glucose (UA) Negative (NEGATIVE) Urine Ketones Negative (NEGATIVE) Urine Blood 2+ (NEGATIVE) H Urine Nitrite Negative (NEGATIVE) Urine Bilirubin Negative (NEGATIVE) Urine Urobilinogen Normal MG/DL (0.0-1.0) Urine Leukocyte Esterase 2+ (NEGATIVE) H Urine RBC 2-4 /HPF (0 - 0) H Urine WBC 15-20 /HPF (0 - 0) H Urine Squamous Epithelial Cells Occasional /LPF Urine Bacteria Occasional /HPF (NONE) Urine Eosinophils None seen (NONE SEEN) Urine Osmolality 323 mOsm/kg (429-449) L Urine Random Creatinine Pending Urine Random Microalbumin Pending Urine Random Sodium 98 mmol/L (20-110) 91 mmol/L (20-110) Urine Microalbumin/Creatinine Ratio Pending Lactic Acid Level 1.70 mmol/L (0.4-2.0) Urine Legionella Antigen Pending White Blood Count 23.9 K/UL (4.8-10.8) *H Red Blood Count 3.44 M/UL (4.70-6.10) L Hemoglobin 10.6 G/DL (14.2-18.0) L Hematocrit 32.1 % (42.0-52.0) L Mean Corpuscular Volume 93 FL (80-99) Mean Corpuscular Hemoglobin 30.7 PG (27.0-31.0) Mean Corpuscular Hemoglobin Concent 32.9 G/DL (32.0-36.0) Red Cell Distribution Width 13.5 % (11.6-14.8) Platelet Count 215 K/UL (150-450) Mean Platelet Volume 6.1 FL (6.5-10.1) L Neutrophils (%) (Auto) % (45.0-75.0) Lymphocytes (%) (Auto) % (20.0-45.0) Monocytes (%) (Auto) % (1.0-10.0) Eosinophils (%) (Auto) % (0.0-3.0) Basophils (%) (Auto) % (0.0-2.0) Differential Total Cells Counted 100 Neutrophils % (Manual) 90 % (45-75) H Lymphocytes % (Manual) 8 % (20-45) L Monocytes % (Manual) 2 % (1-10) Eosinophils % (Manual) 0 % (0-3) Basophils % (Manual) 0 % (0-2) Band Neutrophils 0 % (0-8) Platelet Estimate Adequate Platelet Morphology Normal Red Blood Cell Morphology Normal Erythrocyte Sedimentation Rate 100 MM/HR (0-20) H Reticulocyte Count Pending Prothrombin Time 12.0 SEC (9.30-11.50) H Prothromb Time International Ratio 1.1 (0.9-1.1) Activated Partial Thromboplast Time 31 SEC (23-33) Sodium Level 142 MMOL/L (136-145) Potassium Level 3.9 MMOL/L (3.5-5.1) Chloride Level 109 MMOL/L (98-107) H Carbon Dioxide Level 24 MMOL/L (21-32) Anion Gap 9 mmol/L (5-15) Blood Urea Nitrogen 20 mg/dL (7-18) H Creatinine 1.6 MG/DL (0.55-1.30) H Estimat Glomerular Filtration Rate 43.2 mL/min (>60) Glucose Level 129 MG/DL (74-106) #H Uric Acid 5.3 MG/DL (2.6-7.2) Calcium Level 7.3 MG/DL (8.5-10.1) L Phosphorus Level 2.2 MG/DL (2.5-4.9) L Magnesium Level 1.7 MG/DL (1.8-2.4) L Iron Level 24 ug/dL (50-175) L Total Iron Binding Capacity 159 ug/dL (250-450) L Percent Iron Saturation 15 % (15-50) Unsaturated Iron Binding 135 ug/dL (112-346) Ferritin 199 NG/ML (8-388) Total Bilirubin 0.3 MG/DL (0.2-1.0) Aspartate Amino Transf (AST/SGOT) 37 U/L (15-37) Alanine Aminotransferase (ALT/SGPT) 17 U/L (12-78) Alkaline Phosphatase 109 U/L (46-116) Lactate Dehydrogenase 206 U/L (81-234) C-Reactive Protein, Quantitative 24.8 mg/dL (0.00-0.90) H Pro-B-Type Natriuretic Peptide > 67429 pg/mL (0-125) H Total Protein 6.3 G/DL (6.4-8.2) L Albumin 1.7 G/DL (3.4-5.0) L Globulin 4.6 g/dL Albumin/Globulin Ratio 0.4 (1.0-2.7) L Carcinoembryonic Antigen Pending Vitamin B12 Level 989 PG/ML (193-986) H Folate 9.4 NG/ML (8.6-58.9) Test 01/26/19 04:35 01/26/19 09:24 Urine Eosinophils None seen (NONE SEEN) Arterial Blood pH 7.412 (7.350-7.450) Arterial Blood Partial Pressure CO2 33.2 mmHg (35.0-45.0) L Arterial Blood Partial Pressure O2 78.8 mmHg (75.0-100.0) Arterial Blood HCO3 20.7 mmol/L (22.0-26.0) L Arterial Blood Oxygen Saturation 95.6 % (95-100) Arterial Blood Base Excess -3.3 (-2-2) L Kvng Test Positive Ron Anthony MD Jan 26, 2019 10:06
[2019-01-26] MEDS: Amikacin 950 MG in NS 110 ML IV SCH (10:29)
[2019-01-26] MEDS ORDERED: Potassium Phosphate 30 MM in NS 275 ML IV ONE (11:00)
--- NOTE | 2019-01-26 11:20 | NUR ---
NURSE NOTES: Notified Dr. Lenz regarding positive MRSA in nares. No new orders given.
--- NOTE | 2019-01-26 11:38 | Infectious Diseases Prog Note ---
Assessment/Plan Assessment/Plan 68yo gentleman with PMH below presents with fever(100.1 is highest recorded in transfer packet) and worsened congestion from SNF. In the ED, pt was placed on oxygen then BiPAP but ultimately intubated. ID consulted for antimicrobial recommendation. Tmax 100.1 at long term Leukocytosis, uptrending, now improving. no steroids. Lactic acidosis, fluctuating Shock on levophed, sepsis vs cardiogenic Likely PNA COPD? CHF? thick secretions per nurse flu swab negative 01/24 CXR: Extensive opacities within upper lobes demonstrated. In addition there is generalized interstitial densities throughout both lung craig. 01/25 CXR: Bilateral infiltrates appear fairly extensive but unchanged. TTE with EF 30-35% 01/25 sputum cx: P 01/25 urine legionella ag: P Possible UTI? new mcmahon placed in ED 01/25 UA 15-20 WBC 01/25 Ucx: P Renal US: Nonobstructive stones in the left kidney demonstrated. Bilateral renal cysts. Limited evaluation due to body habitus. r/o bacteremia 01/25 BCx: P No diarrhea HIV test negative MRSA screen positive RLE skin graft b/l LE heel pressure ulcers and sacral ulcer Tobacco abuse COPD HTN Kidney cancer OA CKD Anemia Schizophrenia PVD CHF Plan: continue ertapenem, amikacin, vancomycin #2 while pending cultures SP cefepime #1 SP flagyl #1 SP vancomycin #1 f/u Ucx f/u BCx f/u sputum cx urine legionella Thank you for this consult. [facility] will continue to follow the patient with you. Subjective Allergies: Coded Allergies: No Known Allergies (Unverified , 01/24/19) Subjective Afebrile. Levophed @4. FiO2 down to 35% Objective Vital Signs Last 24 Hour Vital Signs Date Time Temp Pulse Resp B/P (MAP) Pulse Ox O2 Delivery O2 Flow Rate FiO2 01/26/19 11:00 115/68 01/26/19 10:53 84 23 35 01/26/19 09:30 82 20 115/68 (84) 97 01/26/19 09:28 83 22 121/73 (89) 97 01/26/19 09:00 87 25 133/77 (95) 96 01/26/19 08:45 88 29 35 01/26/19 08:30 97.6 92 24 127/77 (94) 95 01/26/19 08:00 90 24 133/77 (95) 95 01/26/19 08:00 127/77 01/26/19 08:00 35 01/26/19 08:00 90 01/26/19 08:00 Mechanical Ventilator 01/26/19 07:30 91 24 108/80 (89) 95 01/26/19 07:00 95 26 125/74 (91) 95 01/26/19 06:32 94 24 35 01/26/19 06:21 95 28 134/72 (92) 96 01/26/19 06:00 92 25 117/105 (109) 94 01/26/19 06:00 117/105 01/26/19 05:30 79 21 131/75 (93) 98 01/26/19 05:10 82 22 35 01/26/19 05:00 121/68 01/26/19 05:00 78 22 121/68 (85) 97 01/26/19 04:30 87 30 118/70 (86) 95 01/26/19 04:12 97.5 83 22 127/71 (89) 96 01/26/19 04:00 Mechanical Ventilator 01/26/19 04:00 35 01/26/19 03:49 83 01/26/19 03:20 78 22 35 01/26/19 03:16 80 29 117/72 (87) 96 01/26/19 03:00 86/74 01/26/19 03:00 76 21 86/74 (78) 97 01/26/19 02:30 79 23 118/73 (88) 95 01/26/19 02:00 121/80 01/26/19 02:00 76 22 121/80 (94) 98 01/26/19 01:30 84 24 123/71 (88) 97 01/26/19 01:03 80 27 35 01/26/19 01:00 86 23 121/72 (88) 96 01/26/19 01:00 121/72 01/26/19 00:30 81 26 120/72 (88) 97 01/26/19 00:12 121/74 01/26/19 00:00 80 01/26/19 00:00 35 01/26/19 00:00 97.8 80 28 121/74 (90) 98 01/26/19 00:00 Mechanical Ventilator 01/25/19 23:30 77 26 126/77 (93) 98 01/25/19 23:00 79 25 122/72 (89) 97 01/25/19 23:00 122/72 01/25/19 22:40 77 26 35 01/25/19 22:30 78 26 131/72 (91) 97 01/25/19 22:00 133/77 01/25/19 22:00 81 33 132/77 (95) 98 01/25/19 21:30 81 27 121/65 (83) 97 01/25/19 21:00 130/73 01/25/19 21:00 84 27 35 01/25/19 21:00 77 23 130/73 (92) 98 01/25/19 20:30 83 31 129/76 (93) 98 01/25/19 20:30 129/76 01/25/19 20:00 Mechanical Ventilator 01/25/19 20:00 35 01/25/19 20:00 80 01/25/19 20:00 133/71 01/25/19 20:00 97.7 80 32 133/71 (91) 98 01/25/19 19:30 119/69 01/25/19 19:30 80 26 119/69 (86) 97 01/25/19 19:00 80 38 133/74 (93) 100 01/25/19 18:54 83 30 35 01/25/19 18:29 127/76 01/25/19 18:00 77 26 131/76 (94) 99 01/25/19 17:30 76 13 122/81 (95) 99 01/25/19 17:29 100/59 01/25/19 17:29 27 100/59 Mechanical Ventilator 35 01/25/19 17:25 100/59 01/25/19 17:00 97.8 79 27 100/59 (73) 96 01/25/19 16:47 78 23 35 01/25/19 16:30 78 28 129/84 (99) 100 01/25/19 16:25 129/84 01/25/19 16:00 Mechanical Ventilator 01/25/19 16:00 97.8 82 23 120/65 (83) 99 01/25/19 16:00 78 01/25/19 16:00 35 01/25/19 15:30 80 20 124/81 (95) 99 01/25/19 15:30 80 23 35 01/25/19 15:25 124/81 01/25/19 15:00 72 18 125/61 (82) 98 01/25/19 14:30 74 27 103/79 (87) 99 01/25/19 14:25 125/61 01/25/19 14:00 70 26 120/55 (76) 99 01/25/19 13:30 67 27 120/59 (79) 99 01/25/19 13:27 65 22 35 01/25/19 13:25 120/59 01/25/19 13:00 65 27 118/58 (78) 97 01/25/19 12:30 65 31 118/58 (78) 98 01/25/19 12:25 111/57 01/25/19 12:00 35 01/25/19 12:00 98.3 67 23 111/57 (75) 98 01/25/19 12:00 Mechanical Ventilator Height (Feet): 5 Height (Inches): 6.00 Weight (Pounds): 154 Objective Gen: NAD HEENT: anicteric sclera. ETT CV: RRR. Resp: coarse. equal chest rise. Abd: soft. normoactive Bs+ Neuro: sedated Skin: RLE skin graft Microbiology Date/Time Source Procedure Growth Status 01/24/19 15:15 Blood Blood Culture - Preliminary NO GROWTH AFTER 24 HOURS Resulted 01/24/19 13:25 Blood Blood Culture - Preliminary NO GROWTH AFTER 24 HOURS Resulted 01/25/19 03:00 Sputum Gram Stain - Final Resulted 01/25/19 03:00 Sputum Sputum Culture Pending Resulted 01/24/19 16:20 Nasal Nares MRSA Culture - Final Staphylococcus Aureus - Mrsa Complete 01/24/19 13:35 Nasal Nares - Final Complete 01/24/19 13:35 Nasal Nares - Final Complete Laboratory Tests Test 01/25/19 13:15 01/25/19 21:04 01/26/19 02:50 01/26/19 04:35 Lactic Acid Level 1.70 mmol/L (0.4-2.0) Urine Random Sodium 91 mmol/L (20-110) Urine Legionella Antigen Pending White Blood Count 23.9 K/UL (4.8-10.8) *H Red Blood Count 3.44 M/UL (4.70-6.10) L Hemoglobin 10.6 G/DL (14.2-18.0) L Hematocrit 32.1 % (42.0-52.0) L Mean Corpuscular Volume 93 FL (80-99) Mean Corpuscular Hemoglobin 30.7 PG (27.0-31.0) Mean Corpuscular Hemoglobin Concent 32.9 G/DL (32.0-36.0) Red Cell Distribution Width 13.5 % (11.6-14.8) Platelet Count 215 K/UL (150-450) Mean Platelet Volume 6.1 FL (6.5-10.1) L Neutrophils (%) (Auto) % (45.0-75.0) Lymphocytes (%) (Auto) % (20.0-45.0) Monocytes (%) (Auto) % (1.0-10.0) Eosinophils (%) (Auto) % (0.0-3.0) Basophils (%) (Auto) % (0.0-2.0) Differential Total Cells Counted 100 Neutrophils % (Manual) 90 % (45-75) H Lymphocytes % (Manual) 8 % (20-45) L Monocytes % (Manual) 2 % (1-10) Eosinophils % (Manual) 0 % (0-3) Basophils % (Manual) 0 % (0-2) Band Neutrophils 0 % (0-8) Platelet Estimate Adequate Platelet Morphology Normal Red Blood Cell Morphology Normal Erythrocyte Sedimentation Rate 100 MM/HR (0-20) H Reticulocyte Count 1.0 % (0.5-2.0) Prothrombin Time 12.0 SEC (9.30-11.50) H Prothromb Time International Ratio 1.1 (0.9-1.1) Activated Partial Thromboplast Time 31 SEC (23-33) Sodium Level 142 MMOL/L (136-145) Potassium Level 3.9 MMOL/L (3.5-5.1) Chloride Level 109 MMOL/L (98-107) H Carbon Dioxide Level 24 MMOL/L (21-32) Anion Gap 9 mmol/L (5-15) Blood Urea Nitrogen 20 mg/dL (7-18) H Creatinine 1.6 MG/DL (0.55-1.30) H Estimat Glomerular Filtration Rate 43.2 mL/min (>60) Glucose Level 129 MG/DL (74-106) #H Uric Acid 5.3 MG/DL (2.6-7.2) Calcium Level 7.3 MG/DL (8.5-10.1) L Phosphorus Level 2.2 MG/DL (2.5-4.9) L Magnesium Level 1.7 MG/DL (1.8-2.4) L Iron Level 24 ug/dL (50-175) L Total Iron Binding Capacity 159 ug/dL (250-450) L Percent Iron Saturation 15 % (15-50) Unsaturated Iron Binding 135 ug/dL (112-346) Ferritin 199 NG/ML (8-388) Total Bilirubin 0.3 MG/DL (0.2-1.0) Aspartate Amino Transf (AST/SGOT) 37 U/L (15-37) Alanine Aminotransferase (ALT/SGPT) 17 U/L (12-78) Alkaline Phosphatase 109 U/L (46-116) Lactate Dehydrogenase 206 U/L (81-234) C-Reactive Protein, Quantitative 24.8 mg/dL (0.00-0.90) H Pro-B-Type Natriuretic Peptide > 45390 pg/mL (0-125) H Total Protein 6.3 G/DL (6.4-8.2) L Albumin 1.7 G/DL (3.4-5.0) L Globulin 4.6 g/dL Albumin/Globulin Ratio 0.4 (1.0-2.7) L Carcinoembryonic Antigen Pending Vitamin B12 Level 989 PG/ML (193-986) H Folate 9.4 NG/ML (8.6-58.9) Urine Eosinophils None seen (NONE SEEN) Test 01/26/19 09:24 Arterial Blood pH 7.412 (7.350-7.450) Arterial Blood Partial Pressure CO2 33.2 mmHg (35.0-45.0) L Arterial Blood Partial Pressure O2 78.8 mmHg (75.0-100.0) Arterial Blood HCO3 20.7 mmol/L (22.0-26.0) L Arterial Blood Oxygen Saturation 95.6 % (95-100) Arterial Blood Base Excess -3.3 (-2-2) L Kvng Test Positive Current Medications Medications (Trade) Dose Ordered Sig/Ricardo Route PRN Reason Start Time Stop Time Status Last Admin Dose Admin Acetaminophen (Tylenol) 650 mg Q4H PRN ORAL fever 01/24/19 20:00 02/23/19 19:59 Albuterol/ Ipratropium (Albuterol/ Ipratropium) 3 ml Q4H PRN HHN Shortness of Breath 01/24/19 20:00 01/29/19 19:59 Amikacin Protocol (Amikacin pharmacy to dose) 1 ea DAILY PRN MISC PER RX PROTOCOL 01/25/19 20:45 02/24/19 20:44 Amikacin Sulfate 950 mg/Sodium Chloride 113.8 ml @ 113.8 mls/ hr Q36H IV 01/26/19 10:00 02/02/19 09:59 01/26/19 10:29 Chlorhexidine Gluconate (Roseanna-Hex 2%) 1 applic DAILY@2000 TOPIC 01/25/19 20:00 02/24/19 19:59 01/25/19 19:55 Dextrose (Dextrose 50%) 25 ml Q30M PRN IV Hypoglycemia 01/25/19 19:00 02/24/19 18:59 Dextrose (Dextrose 50%) 50 ml Q30M PRN IV Hypoglycemia 01/25/19 19:00 02/24/19 18:59 Ertapenem 1 gm/ Sodium Chloride 55 ml @ 110 mls/hr Q24H IV 01/24/19 23:00 01/29/19 22:59 01/25/19 22:40 Heparin Sodium (Porcine) (Heparin 5000 units/ml) 5,000 units EVERY 12 HOURS SUBQ 01/24/19 21:00 02/23/19 20:59 01/26/19 09:25 Hydrocortisone (Solu-CORTEF) 100 mg EVERY 8 HOURS IV 01/25/19 11:00 02/24/19 10:59 01/26/19 05:46 Insulin Aspart (NovoLOG) EVERY 6 HOURS SUBQ 01/26/19 00:00 02/25/19 00:00 01/26/19 05:47 Lorazepam (Ativan 2mg/ml 1ml) 2 mg Q2H PRN IV For Anxiety 01/24/19 20:00 01/31/19 19:59 01/25/19 21:33 Magnesium Sulfate 100 ml @ 100 mls/hr Q1H IVPB 01/26/19 10:00 01/26/19 11:59 01/26/19 10:29 Morphine Sulfate (Morphine Sulfate) 4 mg Q4H PRN IVP Severe Pain (Pain Scale 7-10) 01/24/19 20:00 01/31/19 19:59 Norepinephrine Bitartrate 8 mg/ Dextrose 500 ml @ 0 mls/hr Q24H IV 01/24/19 21:00 02/23/19 20:14 01/26/19 11:00 Ondansetron HCl (Zofran) 4 mg Q6H PRN IVP Nausea & Vomiting 01/24/19 20:00 02/23/19 19:59 Pantoprazole (Protonix) 40 mg DAILY IVP 01/25/19 09:00 02/24/19 08:59 01/26/19 09:25 Polyethylene Glycol (Miralax) 17 gm DAILYPRN PRN ORAL Constipation 01/24/19 20:00 02/23/19 19:59 Potassium Phosphate 30 mm/ Sodium Chloride 285 ml @ 47.5 mls/hr ONCE ONCE IV 01/26/19 11:00 01/26/19 16:59 Sodium Chloride 1,000 ml @ 150 mls/hr Q6H40M IVLG 01/25/19 10:19 02/24/19 10:18 01/26/19 05:52 Vancomycin HCl (Vanco rx to dose) 1 ea DAILY PRN MISC . 01/25/19 06:15 02/24/19 06:14 Pili Lenz MD Jan 26, 2019 11:38
--- NOTE | 2019-01-26 11:45 | NUR ---
NURSE NOTES: Titrated Levophed to 4mcg/min, BP 117/69.
--- NOTE | 2019-01-26 12:15 | Nephrology Progress Note ---
Assessment/Plan Problem List: (1) Renal failure (ARF), acute on chronic (2) Acute respiratory failure (3) Septic shock (4) Cardiomyopathy Assessment Renal failure- Likely acute on Chronic- Cr lower Acute respiratory failure- intubated on Vent Septic Shock- On pressors COPD PVD Schizophrenia Plan down on hydration One dose IV Lasix mag and Phos and K supplement as needed 2D Echo Low Ej Fx - Global Hypokinesis Avoid nephrotoxics afterload reduction monitor renal parameters urine studies ADRIAN IMPRESSION: Nonobstructive stones in the left kidney demonstrated. Bilateral renal cysts. Subjective ROS Limited/Unobtainable: Yes Objective Objective Last 24 Hour Vital Signs Date Time Temp Pulse Resp B/P (MAP) Pulse Ox O2 Delivery O2 Flow Rate FiO2 01/26/19 11:45 111/72 01/26/19 11:00 115/68 01/26/19 10:53 84 23 35 01/26/19 09:30 82 20 115/68 (84) 97 01/26/19 09:28 83 22 121/73 (89) 97 01/26/19 09:00 87 25 133/77 (95) 96 01/26/19 08:45 88 29 35 01/26/19 08:30 97.6 92 24 127/77 (94) 95 01/26/19 08:00 90 24 133/77 (95) 95 01/26/19 08:00 127/77 01/26/19 08:00 35 01/26/19 08:00 90 01/26/19 08:00 Mechanical Ventilator 01/26/19 07:30 91 24 108/80 (89) 95 01/26/19 07:00 95 26 125/74 (91) 95 01/26/19 06:32 94 24 35 01/26/19 06:21 95 28 134/72 (92) 96 01/26/19 06:00 92 25 117/105 (109) 94 01/26/19 06:00 117/105 01/26/19 05:30 79 21 131/75 (93) 98 01/26/19 05:10 82 22 35 01/26/19 05:00 121/68 01/26/19 05:00 78 22 121/68 (85) 97 01/26/19 04:30 87 30 118/70 (86) 95 01/26/19 04:12 97.5 83 22 127/71 (89) 96 01/26/19 04:00 Mechanical Ventilator 01/26/19 04:00 35 01/26/19 03:49 83 01/26/19 03:20 78 22 35 01/26/19 03:16 80 29 117/72 (87) 96 01/26/19 03:00 86/74 01/26/19 03:00 76 21 86/74 (78) 97 01/26/19 02:30 79 23 118/73 (88) 95 01/26/19 02:00 121/80 01/26/19 02:00 76 22 121/80 (94) 98 01/26/19 01:30 84 24 123/71 (88) 97 01/26/19 01:03 80 27 35 01/26/19 01:00 86 23 121/72 (88) 96 01/26/19 01:00 121/72 01/26/19 00:30 81 26 120/72 (88) 97 01/26/19 00:12 121/74 01/26/19 00:00 80 01/26/19 00:00 35 01/26/19 00:00 97.8 80 28 121/74 (90) 98 01/26/19 00:00 Mechanical Ventilator 01/25/19 23:30 77 26 126/77 (93) 98 01/25/19 23:00 79 25 122/72 (89) 97 01/25/19 23:00 122/72 01/25/19 22:40 77 26 35 01/25/19 22:30 78 26 131/72 (91) 97 01/25/19 22:00 133/77 01/25/19 22:00 81 33 132/77 (95) 98 01/25/19 21:30 81 27 121/65 (83) 97 01/25/19 21:00 130/73 01/25/19 21:00 84 27 35 01/25/19 21:00 77 23 130/73 (92) 98 01/25/19 20:30 83 31 129/76 (93) 98 01/25/19 20:30 129/76 01/25/19 20:00 Mechanical Ventilator 01/25/19 20:00 35 01/25/19 20:00 80 01/25/19 20:00 133/71 01/25/19 20:00 97.7 80 32 133/71 (91) 98 01/25/19 19:30 119/69 01/25/19 19:30 80 26 119/69 (86) 97 01/25/19 19:00 80 38 133/74 (93) 100 01/25/19 18:54 83 30 35 01/25/19 18:29 127/76 01/25/19 18:00 77 26 131/76 (94) 99 01/25/19 17:30 76 13 122/81 (95) 99 01/25/19 17:29 100/59 01/25/19 17:29 27 100/59 Mechanical Ventilator 35 01/25/19 17:25 100/59 01/25/19 17:00 97.8 79 27 100/59 (73) 96 01/25/19 16:47 78 23 35 01/25/19 16:30 78 28 129/84 (99) 100 01/25/19 16:25 129/84 01/25/19 16:00 Mechanical Ventilator 01/25/19 16:00 97.8 82 23 120/65 (83) 99 01/25/19 16:00 78 01/25/19 16:00 35 01/25/19 15:30 80 20 124/81 (95) 99 01/25/19 15:30 80 23 35 01/25/19 15:25 124/81 01/25/19 15:00 72 18 125/61 (82) 98 01/25/19 14:30 74 27 103/79 (87) 99 01/25/19 14:25 125/61 01/25/19 14:00 70 26 120/55 (76) 99 01/25/19 13:30 67 27 120/59 (79) 99 01/25/19 13:27 65 22 35 01/25/19 13:25 120/59 01/25/19 13:00 65 27 118/58 (78) 97 01/25/19 12:30 65 31 118/58 (78) 98 01/25/19 12:25 111/57 Intake and Output 01/25/19 01/26/19 19:00 07:00 Intake Total 3055.000 ml 2574.8 ml Output Total 985 ml 1435 ml Balance 2070.000 ml 1139.8 ml IV Total 3055.000 ml 2534.8 ml Tube Feeding 40 ml Output Urine Total 985 ml 1435 ml Laboratory Tests 01/25/19 13:15: Lactic Acid Level 1.70 01/25/19 21:04: Urine Random Sodium 91, Urine Legionella Antigen [Pending] 01/26/19 02:50: White Blood Count 23.9*H, Red Blood Count 3.44L, Hemoglobin 10.6L, Hematocrit 32.1L, Mean Corpuscular Volume 93, Mean Corpuscular Hemoglobin 30.7, Mean Corpuscular Hemoglobin Concent 32.9, Red Cell Distribution Width 13.5, Platelet Count 215, Mean Platelet Volume 6.1L, Neutrophils (%) (Auto) , Lymphocytes (%) ( Auto) , Monocytes (%) (Auto) , Eosinophils (%) (Auto) , Basophils (%) (Auto) , Differential Total Cells Counted 100, Neutrophils % (Manual) 90H, Lymphocytes % (Manual) 8L, Monocytes % (Manual) 2, Eosinophils % (Manual) 0, Basophils % ( Manual) 0, Band Neutrophils 0, Platelet Estimate Adequate, Platelet Morphology Normal, Red Blood Cell Morphology Normal, Erythrocyte Sedimentation Rate 100H, Reticulocyte Count 1.0, Prothrombin Time 12.0H, Prothromb Time International Ratio 1.1, Activated Partial Thromboplast Time 31, Sodium Level 142, Potassium Level 3.9, Chloride Level 109H, Carbon Dioxide Level 24, Anion Gap 9, Blood Urea Nitrogen 20H, Creatinine 1.6H, Estimat Glomerular Filtration Rate 43.2, Glucose Level 129#H, Uric Acid 5.3, Calcium Level 7.3L, Phosphorus Level 2.2L, Magnesium Level 1.7L, Iron Level 24L, Total Iron Binding Capacity 159L, Percent Iron Saturation 15, Unsaturated Iron Binding 135, Ferritin 199, Total Bilirubin 0.3, Aspartate Amino Transf (AST/SGOT) 37, Alanine Aminotransferase (ALT/SGPT) 17, Alkaline Phosphatase 109, Lactate Dehydrogenase 206, C-Reactive Protein, Quantitative 24.8H, Pro-B-Type Natriuretic Peptide > 60477Y, Total Protein 6.3L , Albumin 1.7L, Globulin 4.6, Albumin/Globulin Ratio 0.4L, Carcinoembryonic Antigen [Pending], Vitamin B12 Level 989H, Folate 9.4 01/26/19 04:35: Urine Eosinophils None seen 01/26/19 09:24: Arterial Blood pH 7.412, Arterial Blood Partial Pressure CO2 33.2L, Arterial Blood Partial Pressure O2 78.8, Arterial Blood HCO3 20.7L, Arterial Blood Oxygen Saturation 95.6, Arterial Blood Base Excess -3.3L, Kvng Test Positive Height (Feet): 5 Height (Inches): 6.00 Weight (Pounds): 154 General Appearance: no apparent distress EENT: other - vented Cardiovascular: normal rate Respiratory/Chest: decreased breath sounds Abdomen: distended Bienvenido Gonzalez MD Jan 26, 2019 12:15
--- NOTE | 2019-01-26 14:22 | Diagnostic Imaging Report ---
Indication: Dyspnea Comparison: 03/27/2018 A single view chest radiograph was obtained. Findings: Extensive bilateral infiltrates demonstrated. Endotracheal tube is stable and just above the cristina. NG tube is in good position. Bones are osteopenic. Heart size is stable. IMPRESSION: Extensive infiltrates. No change
--- NOTE | 2019-01-26 14:50 | General Progress Note ---
Assessment/Plan Problem List: (1) Renal failure (ARF), acute on chronic ICD Codes: N17.9 - Acute kidney failure, unspecified; N18.9 - Chronic kidney disease, unspecified SNOMED: 179996341 (2) Sepsis ICD Codes: A41.9 - Sepsis, unspecified organism SNOMED: 19441980 Qualifiers: Qualified Codes: A41.9 - Sepsis, unspecified organism (3) Malignant neoplasm of right kidney ICD Codes: C64.1 - Malignant neoplasm of right kidney, except renal pelvis SNOMED: 634867485 (4) Acute respiratory failure ICD Codes: J96.00 - Acute respiratory failure, unspecified whether with hypoxia or hypercapnia SNOMED: 37408461 (5) PVD (peripheral vascular disease) ICD Codes: I73.9 - Peripheral vascular disease, unspecified SNOMED: 799534570 Status: unchanged Assessment/Plan: vent abx wound care cbc bmp am Subjective Constitutional: Reports: weakness Allergies: Coded Allergies: No Known Allergies (Unverified , 01/24/19) All Systems: reviewed and negative except above Subjective intubated in icu Objective Last 24 Hour Vital Signs Date Time Temp Pulse Resp B/P (MAP) Pulse Ox O2 Delivery O2 Flow Rate FiO2 01/26/19 14:00 70 24 101/54 (70) 95 01/26/19 13:30 72 24 101/54 (70) 95 01/26/19 13:00 91/68 01/26/19 13:00 79 20 104/62 (76) 96 01/26/19 12:50 76 22 35 01/26/19 12:30 78 22 104/64 (77) 96 01/26/19 12:15 69 22 99/54 (69) 96 01/26/19 12:00 Mechanical Ventilator 01/26/19 12:00 35 01/26/19 12:00 78 01/26/19 12:00 98.9 72 23 102/57 (72) 96 01/26/19 11:45 111/72 01/26/19 11:45 78 21 111/72 (85) 99 01/26/19 11:30 77 22 91/69 (76) 96 01/26/19 11:15 78 21 106/71 (83) 96 01/26/19 11:00 84 24 114/66 (82) 98 01/26/19 11:00 115/68 01/26/19 10:53 84 23 35 01/26/19 10:45 79 22 112/67 (82) 96 01/26/19 10:30 77 22 114/65 (81) 97 01/26/19 10:15 79 21 109/65 (80) 96 01/26/19 10:00 79 22 110/66 (81) 97 01/26/19 09:45 81 22 112/64 (80) 96 01/26/19 09:30 82 20 115/68 (84) 97 01/26/19 09:28 83 22 121/73 (89) 97 01/26/19 09:00 87 25 133/77 (95) 96 01/26/19 08:45 88 29 35 01/26/19 08:30 97.6 92 24 127/77 (94) 95 01/26/19 08:00 90 24 133/77 (95) 95 01/26/19 08:00 127/77 01/26/19 08:00 35 01/26/19 08:00 90 01/26/19 08:00 Mechanical Ventilator 01/26/19 07:30 91 24 108/80 (89) 95 01/26/19 07:00 95 26 125/74 (91) 95 01/26/19 06:32 94 24 35 01/26/19 06:21 95 28 134/72 (92) 96 01/26/19 06:00 92 25 117/105 (109) 94 01/26/19 06:00 117/105 01/26/19 05:30 79 21 131/75 (93) 98 01/26/19 05:10 82 22 35 01/26/19 05:00 121/68 01/26/19 05:00 78 22 121/68 (85) 97 01/26/19 04:30 87 30 118/70 (86) 95 01/26/19 04:12 97.5 83 22 127/71 (89) 96 01/26/19 04:00 Mechanical Ventilator 01/26/19 04:00 35 01/26/19 03:49 83 01/26/19 03:20 78 22 35 01/26/19 03:16 80 29 117/72 (87) 96 01/26/19 03:00 86/74 01/26/19 03:00 76 21 86/74 (78) 97 01/26/19 02:30 79 23 118/73 (88) 95 01/26/19 02:00 121/80 01/26/19 02:00 76 22 121/80 (94) 98 01/26/19 01:30 84 24 123/71 (88) 97 01/26/19 01:03 80 27 35 01/26/19 01:00 86 23 121/72 (88) 96 01/26/19 01:00 121/72 01/26/19 00:30 81 26 120/72 (88) 97 01/26/19 00:12 121/74 01/26/19 00:00 80 01/26/19 00:00 35 01/26/19 00:00 97.8 80 28 121/74 (90) 98 01/26/19 00:00 Mechanical Ventilator 01/25/19 23:30 77 26 126/77 (93) 98 01/25/19 23:00 79 25 122/72 (89) 97 01/25/19 23:00 122/72 01/25/19 22:40 77 26 35 01/25/19 22:30 78 26 131/72 (91) 97 01/25/19 22:00 133/77 01/25/19 22:00 81 33 132/77 (95) 98 01/25/19 21:30 81 27 121/65 (83) 97 01/25/19 21:00 130/73 01/25/19 21:00 84 27 35 01/25/19 21:00 77 23 130/73 (92) 98 01/25/19 20:30 83 31 129/76 (93) 98 01/25/19 20:30 129/76 01/25/19 20:00 Mechanical Ventilator 01/25/19 20:00 35 01/25/19 20:00 80 01/25/19 20:00 133/71 01/25/19 20:00 97.7 80 32 133/71 (91) 98 01/25/19 19:30 119/69 01/25/19 19:30 80 26 119/69 (86) 97 01/25/19 19:00 80 38 133/74 (93) 100 01/25/19 18:54 83 30 35 01/25/19 18:29 127/76 01/25/19 18:00 77 26 131/76 (94) 99 01/25/19 17:30 76 13 122/81 (95) 99 01/25/19 17:29 100/59 01/25/19 17:29 27 100/59 Mechanical Ventilator 35 01/25/19 17:25 100/59 01/25/19 17:00 97.8 79 27 100/59 (73) 96 01/25/19 16:47 78 23 35 01/25/19 16:30 78 28 129/84 (99) 100 01/25/19 16:25 129/84 01/25/19 16:00 Mechanical Ventilator 01/25/19 16:00 97.8 82 23 120/65 (83) 99 01/25/19 16:00 78 01/25/19 16:00 35 01/25/19 15:30 80 20 124/81 (95) 99 01/25/19 15:30 80 23 35 01/25/19 15:25 124/81 01/25/19 15:00 72 18 125/61 (82) 98 Intake and Output 01/25/19 01/26/19 19:00 07:00 Intake Total 3055.000 ml 2574.8 ml Output Total 985 ml 1435 ml Balance 2070.000 ml 1139.8 ml IV Total 3055.000 ml 2534.8 ml Tube Feeding 40 ml Output Urine Total 985 ml 1435 ml Laboratory Tests 01/25/19 21:04: Urine Random Sodium 91, Urine Legionella Antigen [Pending] 01/26/19 02:50: White Blood Count 23.9*H, Red Blood Count 3.44L, Hemoglobin 10.6L, Hematocrit 32.1L, Mean Corpuscular Volume 93, Mean Corpuscular Hemoglobin 30.7, Mean Corpuscular Hemoglobin Concent 32.9, Red Cell Distribution Width 13.5, Platelet Count 215, Mean Platelet Volume 6.1L, Neutrophils (%) (Auto) , Lymphocytes (%) ( Auto) , Monocytes (%) (Auto) , Eosinophils (%) (Auto) , Basophils (%) (Auto) , Differential Total Cells Counted 100, Neutrophils % (Manual) 90H, Lymphocytes % (Manual) 8L, Monocytes % (Manual) 2, Eosinophils % (Manual) 0, Basophils % ( Manual) 0, Band Neutrophils 0, Other Cell Type Pathologist review, Platelet Estimate Adequate, Platelet Morphology Normal, Red Blood Cell Morphology Normal , Erythrocyte Sedimentation Rate 100H, Reticulocyte Count 1.0, Prothrombin Time 12.0H, Prothromb Time International Ratio 1.1, Activated Partial Thromboplast Time 31, Sodium Level 142, Potassium Level 3.9, Chloride Level 109H, Carbon Dioxide Level 24, Anion Gap 9, Blood Urea Nitrogen 20H, Creatinine 1.6H, Estimat Glomerular Filtration Rate 43.2, Glucose Level 129#H, Uric Acid 5.3, Calcium Level 7.3L, Phosphorus Level 2.2L, Magnesium Level 1.7L, Iron Level 24L , Total Iron Binding Capacity 159L, Percent Iron Saturation 15, Unsaturated Iron Binding 135, Ferritin 199, Total Bilirubin 0.3, Aspartate Amino Transf (AST /SGOT) 37, Alanine Aminotransferase (ALT/SGPT) 17, Alkaline Phosphatase 109, Lactate Dehydrogenase 206, C-Reactive Protein, Quantitative 24.8H, Pro-B-Type Natriuretic Peptide > 52797M, Total Protein 6.3L, Albumin 1.7L, Globulin 4.6, Albumin/Globulin Ratio 0.4L, Carcinoembryonic Antigen [Pending], Vitamin B12 Level 989H, Folate 9.4 01/26/19 04:35: Urine Eosinophils None seen 01/26/19 09:24: Arterial Blood pH 7.412, Arterial Blood Partial Pressure CO2 33.2L, Arterial Blood Partial Pressure O2 78.8, Arterial Blood HCO3 20.7L, Arterial Blood Oxygen Saturation 95.6, Arterial Blood Base Excess -3.3L, Kvng Test Positive Height (Feet): 5 Height (Inches): 6.00 Weight (Pounds): 154 General Appearance: lethargic EENT: normal ENT inspection Neck: normal alignment Cardiovascular: normal peripheral pulses, normal rate, regular rhythm Respiratory/Chest: chest wall non-tender, lungs clear, normal breath sounds Abdomen: normal bowel sounds, non tender, soft Extremities: normal inspection Edema: no edema noted Arm (L), no edema noted Arm (R), no edema noted Leg (L), no edema noted Leg (R), no edema noted Pedal (L), no edema noted Pedal (R), no edema noted Generalized Neurologic: motor weakness Skin: normal pigmentation, warm/dry Corey Short DO Jan 26, 2019 14:50
--- NOTE | 2019-01-26 14:53 | NUR ---
NURSE NOTES: Turned and repositioned. Kept dry and clean. IVF changed to NS@40ml/hr, lasix ivp given.
--- NOTE | 2019-01-26 15:34 | Surgery Progress Note ---
Surgery Progress Note Subjective Additional Comments patient seen and examined at bedside a bit more responsive today and moving extremities on tube feeds at 20cc/hr tolerating levophed on pressors leukocytosis trending down Objective Last 24 Hour Vital Signs Date Time Temp Pulse Resp B/P (MAP) Pulse Ox O2 Delivery O2 Flow Rate FiO2 01/26/19 15:00 87 22 120/63 (82) 94 01/26/19 14:45 93 22 112/68 (83) 96 01/26/19 14:30 81 21 99/60 (73) 94 01/26/19 14:30 81 24 35 01/26/19 14:00 70 24 101/54 (70) 95 01/26/19 13:30 72 24 101/54 (70) 95 01/26/19 13:00 91/68 01/26/19 13:00 79 20 104/62 (76) 96 01/26/19 12:50 76 22 35 01/26/19 12:30 78 22 104/64 (77) 96 01/26/19 12:15 69 22 99/54 (69) 96 01/26/19 12:00 Mechanical Ventilator 01/26/19 12:00 35 01/26/19 12:00 78 01/26/19 12:00 98.9 72 23 102/57 (72) 96 01/26/19 11:45 111/72 01/26/19 11:45 78 21 111/72 (85) 99 01/26/19 11:30 77 22 91/69 (76) 96 01/26/19 11:15 78 21 106/71 (83) 96 01/26/19 11:00 84 24 114/66 (82) 98 01/26/19 11:00 115/68 01/26/19 10:53 84 23 35 01/26/19 10:45 79 22 112/67 (82) 96 01/26/19 10:30 77 22 114/65 (81) 97 01/26/19 10:15 79 21 109/65 (80) 96 01/26/19 10:00 79 22 110/66 (81) 97 01/26/19 09:45 81 22 112/64 (80) 96 01/26/19 09:30 82 20 115/68 (84) 97 01/26/19 09:28 83 22 121/73 (89) 97 01/26/19 09:00 87 25 133/77 (95) 96 01/26/19 08:45 88 29 35 01/26/19 08:30 97.6 92 24 127/77 (94) 95 01/26/19 08:00 90 24 133/77 (95) 95 01/26/19 08:00 127/77 01/26/19 08:00 35 01/26/19 08:00 90 01/26/19 08:00 Mechanical Ventilator 01/26/19 07:30 91 24 108/80 (89) 95 01/26/19 07:00 95 26 125/74 (91) 95 01/26/19 06:32 94 24 35 01/26/19 06:21 95 28 134/72 (92) 96 01/26/19 06:00 92 25 117/105 (109) 94 01/26/19 06:00 117/105 01/26/19 05:30 79 21 131/75 (93) 98 01/26/19 05:10 82 22 35 01/26/19 05:00 121/68 01/26/19 05:00 78 22 121/68 (85) 97 01/26/19 04:30 87 30 118/70 (86) 95 01/26/19 04:12 97.5 83 22 127/71 (89) 96 01/26/19 04:00 Mechanical Ventilator 01/26/19 04:00 35 01/26/19 03:49 83 01/26/19 03:20 78 22 35 01/26/19 03:16 80 29 117/72 (87) 96 01/26/19 03:00 86/74 01/26/19 03:00 76 21 86/74 (78) 97 01/26/19 02:30 79 23 118/73 (88) 95 01/26/19 02:00 121/80 01/26/19 02:00 76 22 121/80 (94) 98 01/26/19 01:30 84 24 123/71 (88) 97 01/26/19 01:03 80 27 35 01/26/19 01:00 86 23 121/72 (88) 96 01/26/19 01:00 121/72 01/26/19 00:30 81 26 120/72 (88) 97 01/26/19 00:12 121/74 01/26/19 00:00 80 01/26/19 00:00 35 01/26/19 00:00 97.8 80 28 121/74 (90) 98 01/26/19 00:00 Mechanical Ventilator 01/25/19 23:30 77 26 126/77 (93) 98 01/25/19 23:00 79 25 122/72 (89) 97 01/25/19 23:00 122/72 01/25/19 22:40 77 26 35 01/25/19 22:30 78 26 131/72 (91) 97 01/25/19 22:00 133/77 01/25/19 22:00 81 33 132/77 (95) 98 01/25/19 21:30 81 27 121/65 (83) 97 01/25/19 21:00 130/73 01/25/19 21:00 84 27 35 01/25/19 21:00 77 23 130/73 (92) 98 01/25/19 20:30 83 31 129/76 (93) 98 01/25/19 20:30 129/76 01/25/19 20:00 Mechanical Ventilator 01/25/19 20:00 35 01/25/19 20:00 80 01/25/19 20:00 133/71 01/25/19 20:00 97.7 80 32 133/71 (91) 98 01/25/19 19:30 119/69 01/25/19 19:30 80 26 119/69 (86) 97 01/25/19 19:00 80 38 133/74 (93) 100 01/25/19 18:54 83 30 35 01/25/19 18:29 127/76 01/25/19 18:00 77 26 131/76 (94) 99 01/25/19 17:30 76 13 122/81 (95) 99 01/25/19 17:29 100/59 01/25/19 17:29 27 100/59 Mechanical Ventilator 35 01/25/19 17:25 100/59 01/25/19 17:00 97.8 79 27 100/59 (73) 96 01/25/19 16:47 78 23 35 01/25/19 16:30 78 28 129/84 (99) 100 01/25/19 16:25 129/84 01/25/19 16:00 Mechanical Ventilator 01/25/19 16:00 97.8 82 23 120/65 (83) 99 01/25/19 16:00 78 01/25/19 16:00 35 I&O Intake and Output 01/25/19 01/26/19 19:00 07:00 Intake Total 3055.000 ml 2574.8 ml Output Total 985 ml 1435 ml Balance 2070.000 ml 1139.8 ml IV Total 3055.000 ml 2534.8 ml Tube Feeding 40 ml Output Urine Total 985 ml 1435 ml Dressing: other Wound: other Drains: other Cardiovascular: RSR Respiratory: decreased breath sounds Abdomen: soft, non-distended, decreased bowel sounds Extremities: no cyanosis, other Laboratory Tests Test 01/25/19 21:04 01/26/19 02:50 01/26/19 04:35 01/26/19 09:24 Urine Random Sodium 91 mmol/L (20-110) Urine Legionella Antigen Pending White Blood Count 23.9 K/UL (4.8-10.8) *H Red Blood Count 3.44 M/UL (4.70-6.10) L Hemoglobin 10.6 G/DL (14.2-18.0) L Hematocrit 32.1 % (42.0-52.0) L Mean Corpuscular Volume 93 FL (80-99) Mean Corpuscular Hemoglobin 30.7 PG (27.0-31.0) Mean Corpuscular Hemoglobin Concent 32.9 G/DL (32.0-36.0) Red Cell Distribution Width 13.5 % (11.6-14.8) Platelet Count 215 K/UL (150-450) Mean Platelet Volume 6.1 FL (6.5-10.1) L Neutrophils (%) (Auto) % (45.0-75.0) Lymphocytes (%) (Auto) % (20.0-45.0) Monocytes (%) (Auto) % (1.0-10.0) Eosinophils (%) (Auto) % (0.0-3.0) Basophils (%) (Auto) % (0.0-2.0) Differential Total Cells Counted 100 Neutrophils % (Manual) 90 % (45-75) H Lymphocytes % (Manual) 8 % (20-45) L Monocytes % (Manual) 2 % (1-10) Eosinophils % (Manual) 0 % (0-3) Basophils % (Manual) 0 % (0-2) Band Neutrophils 0 % (0-8) Other Cell Type Pathologist review Platelet Estimate Adequate Platelet Morphology Normal Red Blood Cell Morphology Normal Erythrocyte Sedimentation Rate 100 MM/HR (0-20) H Reticulocyte Count 1.0 % (0.5-2.0) Prothrombin Time 12.0 SEC (9.30-11.50) H Prothromb Time International Ratio 1.1 (0.9-1.1) Activated Partial Thromboplast Time 31 SEC (23-33) Sodium Level 142 MMOL/L (136-145) Potassium Level 3.9 MMOL/L (3.5-5.1) Chloride Level 109 MMOL/L (98-107) H Carbon Dioxide Level 24 MMOL/L (21-32) Anion Gap 9 mmol/L (5-15) Blood Urea Nitrogen 20 mg/dL (7-18) H Creatinine 1.6 MG/DL (0.55-1.30) H Estimat Glomerular Filtration Rate 43.2 mL/min (>60) Glucose Level 129 MG/DL (74-106) #H Uric Acid 5.3 MG/DL (2.6-7.2) Calcium Level 7.3 MG/DL (8.5-10.1) L Phosphorus Level 2.2 MG/DL (2.5-4.9) L Magnesium Level 1.7 MG/DL (1.8-2.4) L Iron Level 24 ug/dL (50-175) L Total Iron Binding Capacity 159 ug/dL (250-450) L Percent Iron Saturation 15 % (15-50) Unsaturated Iron Binding 135 ug/dL (112-346) Ferritin 199 NG/ML (8-388) Total Bilirubin 0.3 MG/DL (0.2-1.0) Aspartate Amino Transf (AST/SGOT) 37 U/L (15-37) Alanine Aminotransferase (ALT/SGPT) 17 U/L (12-78) Alkaline Phosphatase 109 U/L (46-116) Lactate Dehydrogenase 206 U/L (81-234) C-Reactive Protein, Quantitative 24.8 mg/dL (0.00-0.90) H Pro-B-Type Natriuretic Peptide > 53559 pg/mL (0-125) H Total Protein 6.3 G/DL (6.4-8.2) L Albumin 1.7 G/DL (3.4-5.0) L Globulin 4.6 g/dL Albumin/Globulin Ratio 0.4 (1.0-2.7) L Carcinoembryonic Antigen Pending Vitamin B12 Level 989 PG/ML (193-986) H Folate 9.4 NG/ML (8.6-58.9) Urine Eosinophils None seen (NONE SEEN) Arterial Blood pH 7.412 (7.350-7.450) Arterial Blood Partial Pressure CO2 33.2 mmHg (35.0-45.0) L Arterial Blood Partial Pressure O2 78.8 mmHg (75.0-100.0) Arterial Blood HCO3 20.7 mmol/L (22.0-26.0) L Arterial Blood Oxygen Saturation 95.6 % (95-100) Arterial Blood Base Excess -3.3 (-2-2) L Kvng Test Positive Plan Problems: (1) Sepsis Assessment & Plan: low grade fever t max 100 tachycardic leukocytosis trending down lactic acidosis resolved ill appearing in ICU on vent support -IV fluids resuscitation -IV abx as per ID -trend labs -CXR noted -cont tube feeds -will follow with recs thank you (2) Septic shock (3) Wound, open Assessment & Plan: Patient presented on admission with multiple pressure injuries being identified. Non-blanching erythema without induration noted to sacrum ,Right and Left buttocks. Scattered areas that are darker and maroon in color noted within base of wound. Scrotum is also erythematous. Unstageable pressure injury noted to Left heel. Base of wound is 100% necrotic but soft. Erythematous margins with surrounding non-blanching erythema.(L)3.2cm x (W)3cm. no drainage Right heel is boggy with non-blanching erythema.. Keloid scar noted distal R tibia. Partial thickness ulcer noted to dorsal R foot. Base of wound is moist and viable. Small amt serous exudate noted. Scattered small dry scabs noted to dorsal R foot. Tx.Plan: Swab Dorsal R foot and R heel with Betadine. Cover with Optifoam drsg. Change every 3 days and prn. Apply Moisture Barrier Paste to buttocks. Cover sacrum with Optifoam drsg. Change every 3 days and prn. Apply Cavilon Skin Barrier to L heel.Cover with Optifoam drsg. Change every 7 days and prn. APM/JELLY mattress. Reposition at least every 2hours or as tolerated. Off-load heels with pillow. Nutritional Optimization Will monitor while in critical condition Mauricio Anne Jan 26, 2019 15:34
--- NOTE | 2019-01-26 16:36 | NUR ---
NURSE NOTES: Turned Levophed off. MAP has been consistently >70 for 3 hours.
--- NOTE | 2019-01-26 16:52 | Cardiology Progress Note ---
Assessment/Plan Assessment/Plan [id number] echo poor lv fucntion to review vent dupport abx watch fluid administration repeat ekg and trop Objective Last 24 Hour Vital Signs Date Time Temp Pulse Resp B/P (MAP) Pulse Ox O2 Delivery O2 Flow Rate FiO2 01/26/19 16:00 35 01/26/19 16:00 110/61 01/26/19 16:00 Mechanical Ventilator 01/26/19 16:00 94 01/26/19 16:00 98.1 93 22 124/83 (97) 100 01/26/19 15:00 87 22 120/63 (82) 94 01/26/19 14:45 93 22 112/68 (83) 96 01/26/19 14:30 81 21 99/60 (73) 94 01/26/19 14:30 81 24 35 01/26/19 14:00 70 24 101/54 (70) 95 01/26/19 13:30 72 24 101/54 (70) 95 01/26/19 13:00 91/68 01/26/19 13:00 79 20 104/62 (76) 96 01/26/19 12:50 76 22 35 01/26/19 12:30 78 22 104/64 (77) 96 01/26/19 12:15 69 22 99/54 (69) 96 01/26/19 12:00 Mechanical Ventilator 01/26/19 12:00 35 01/26/19 12:00 78 01/26/19 12:00 98.9 72 23 102/57 (72) 96 01/26/19 11:45 111/72 01/26/19 11:45 78 21 111/72 (85) 99 01/26/19 11:30 77 22 91/69 (76) 96 01/26/19 11:15 78 21 106/71 (83) 96 01/26/19 11:00 84 24 114/66 (82) 98 01/26/19 11:00 115/68 01/26/19 10:53 84 23 35 01/26/19 10:45 79 22 112/67 (82) 96 01/26/19 10:30 77 22 114/65 (81) 97 01/26/19 10:15 79 21 109/65 (80) 96 01/26/19 10:00 79 22 110/66 (81) 97 01/26/19 09:45 81 22 112/64 (80) 96 01/26/19 09:30 82 20 115/68 (84) 97 01/26/19 09:28 83 22 121/73 (89) 97 01/26/19 09:00 87 25 133/77 (95) 96 01/26/19 08:45 88 29 35 01/26/19 08:30 97.6 92 24 127/77 (94) 95 01/26/19 08:00 90 24 133/77 (95) 95 01/26/19 08:00 127/77 01/26/19 08:00 35 01/26/19 08:00 90 01/26/19 08:00 Mechanical Ventilator 01/26/19 07:30 91 24 108/80 (89) 95 01/26/19 07:00 95 26 125/74 (91) 95 01/26/19 06:32 94 24 35 01/26/19 06:21 95 28 134/72 (92) 96 01/26/19 06:00 92 25 117/105 (109) 94 01/26/19 06:00 117/105 01/26/19 05:30 79 21 131/75 (93) 98 01/26/19 05:10 82 22 35 01/26/19 05:00 121/68 01/26/19 05:00 78 22 121/68 (85) 97 01/26/19 04:30 87 30 118/70 (86) 95 01/26/19 04:12 97.5 83 22 127/71 (89) 96 01/26/19 04:00 Mechanical Ventilator 01/26/19 04:00 35 01/26/19 03:49 83 01/26/19 03:20 78 22 35 01/26/19 03:16 80 29 117/72 (87) 96 01/26/19 03:00 86/74 01/26/19 03:00 76 21 86/74 (78) 97 01/26/19 02:30 79 23 118/73 (88) 95 01/26/19 02:00 121/80 01/26/19 02:00 76 22 121/80 (94) 98 01/26/19 01:30 84 24 123/71 (88) 97 01/26/19 01:03 80 27 35 01/26/19 01:00 86 23 121/72 (88) 96 01/26/19 01:00 121/72 01/26/19 00:30 81 26 120/72 (88) 97 01/26/19 00:12 121/74 01/26/19 00:00 80 01/26/19 00:00 35 01/26/19 00:00 97.8 80 28 121/74 (90) 98 01/26/19 00:00 Mechanical Ventilator 01/25/19 23:30 77 26 126/77 (93) 98 01/25/19 23:00 79 25 122/72 (89) 97 01/25/19 23:00 122/72 01/25/19 22:40 77 26 35 01/25/19 22:30 78 26 131/72 (91) 97 01/25/19 22:00 133/77 01/25/19 22:00 81 33 132/77 (95) 98 01/25/19 21:30 81 27 121/65 (83) 97 01/25/19 21:00 130/73 01/25/19 21:00 84 27 35 01/25/19 21:00 77 23 130/73 (92) 98 01/25/19 20:30 83 31 129/76 (93) 98 01/25/19 20:30 129/76 01/25/19 20:00 Mechanical Ventilator 01/25/19 20:00 35 01/25/19 20:00 80 01/25/19 20:00 133/71 01/25/19 20:00 97.7 80 32 133/71 (91) 98 01/25/19 19:30 119/69 01/25/19 19:30 80 26 119/69 (86) 97 01/25/19 19:00 80 38 133/74 (93) 100 01/25/19 18:54 83 30 35 01/25/19 18:29 127/76 01/25/19 18:00 77 26 131/76 (94) 99 01/25/19 17:30 76 13 122/81 (95) 99 01/25/19 17:29 100/59 01/25/19 17:29 27 100/59 Mechanical Ventilator 35 01/25/19 17:25 100/59 01/25/19 17:00 97.8 79 27 100/59 (73) 96 Intake and Output 01/25/19 01/26/19 19:00 07:00 Intake Total 3055.000 ml 2574.8 ml Output Total 985 ml 1435 ml Balance 2070.000 ml 1139.8 ml IV Total 3055.000 ml 2534.8 ml Tube Feeding 40 ml Output Urine Total 985 ml 1435 ml Laboratory Tests Test 01/25/19 21:04 01/26/19 02:50 01/26/19 04:35 01/26/19 09:24 Urine Random Sodium 91 mmol/L (20-110) Urine Legionella Antigen Pending White Blood Count 23.9 K/UL (4.8-10.8) *H Red Blood Count 3.44 M/UL (4.70-6.10) L Hemoglobin 10.6 G/DL (14.2-18.0) L Hematocrit 32.1 % (42.0-52.0) L Mean Corpuscular Volume 93 FL (80-99) Mean Corpuscular Hemoglobin 30.7 PG (27.0-31.0) Mean Corpuscular Hemoglobin Concent 32.9 G/DL (32.0-36.0) Red Cell Distribution Width 13.5 % (11.6-14.8) Platelet Count 215 K/UL (150-450) Mean Platelet Volume 6.1 FL (6.5-10.1) L Neutrophils (%) (Auto) % (45.0-75.0) Lymphocytes (%) (Auto) % (20.0-45.0) Monocytes (%) (Auto) % (1.0-10.0) Eosinophils (%) (Auto) % (0.0-3.0) Basophils (%) (Auto) % (0.0-2.0) Differential Total Cells Counted 100 Neutrophils % (Manual) 90 % (45-75) H Lymphocytes % (Manual) 8 % (20-45) L Monocytes % (Manual) 2 % (1-10) Eosinophils % (Manual) 0 % (0-3) Basophils % (Manual) 0 % (0-2) Band Neutrophils 0 % (0-8) Other Cell Type Pathologist review Platelet Estimate Adequate Platelet Morphology Normal Red Blood Cell Morphology Normal Erythrocyte Sedimentation Rate 100 MM/HR (0-20) H Reticulocyte Count 1.0 % (0.5-2.0) Prothrombin Time 12.0 SEC (9.30-11.50) H Prothromb Time International Ratio 1.1 (0.9-1.1) Activated Partial Thromboplast Time 31 SEC (23-33) Sodium Level 142 MMOL/L (136-145) Potassium Level 3.9 MMOL/L (3.5-5.1) Chloride Level 109 MMOL/L (98-107) H Carbon Dioxide Level 24 MMOL/L (21-32) Anion Gap 9 mmol/L (5-15) Blood Urea Nitrogen 20 mg/dL (7-18) H Creatinine 1.6 MG/DL (0.55-1.30) H Estimat Glomerular Filtration Rate 43.2 mL/min (>60) Glucose Level 129 MG/DL (74-106) #H Uric Acid 5.3 MG/DL (2.6-7.2) Calcium Level 7.3 MG/DL (8.5-10.1) L Phosphorus Level 2.2 MG/DL (2.5-4.9) L Magnesium Level 1.7 MG/DL (1.8-2.4) L Iron Level 24 ug/dL (50-175) L Total Iron Binding Capacity 159 ug/dL (250-450) L Percent Iron Saturation 15 % (15-50) Unsaturated Iron Binding 135 ug/dL (112-346) Ferritin 199 NG/ML (8-388) Total Bilirubin 0.3 MG/DL (0.2-1.0) Aspartate Amino Transf (AST/SGOT) 37 U/L (15-37) Alanine Aminotransferase (ALT/SGPT) 17 U/L (12-78) Alkaline Phosphatase 109 U/L (46-116) Lactate Dehydrogenase 206 U/L (81-234) C-Reactive Protein, Quantitative 24.8 mg/dL (0.00-0.90) H Pro-B-Type Natriuretic Peptide > 19317 pg/mL (0-125) H Total Protein 6.3 G/DL (6.4-8.2) L Albumin 1.7 G/DL (3.4-5.0) L Globulin 4.6 g/dL Albumin/Globulin Ratio 0.4 (1.0-2.7) L Carcinoembryonic Antigen Pending Vitamin B12 Level 989 PG/ML (193-986) H Folate 9.4 NG/ML (8.6-58.9) Urine Eosinophils None seen (NONE SEEN) Arterial Blood pH 7.412 (7.350-7.450) Arterial Blood Partial Pressure CO2 33.2 mmHg (35.0-45.0) L Arterial Blood Partial Pressure O2 78.8 mmHg (75.0-100.0) Arterial Blood HCO3 20.7 mmol/L (22.0-26.0) L Arterial Blood Oxygen Saturation 95.6 % (95-100) Arterial Blood Base Excess -3.3 (-2-2) L Kvng Test Positive Microbiology Date/Time Source Procedure Growth Status 01/24/19 15:15 Blood Blood Culture - Preliminary NO GROWTH AFTER 24 HOURS Resulted 01/24/19 13:25 Blood Blood Culture - Preliminary NO GROWTH AFTER 24 HOURS Resulted 01/25/19 03:00 Sputum Gram Stain - Final Resulted 01/25/19 03:00 Sputum Sputum Culture Pending Resulted 01/24/19 16:20 Nasal Nares MRSA Culture - Final Staphylococcus Aureus - Mrsa Complete 01/24/19 13:35 Nasal Nares - Final Complete 01/24/19 13:35 Nasal Nares - Final Complete Sammy Helm MD Jan 26, 2019 16:52
--- NOTE | 2019-01-26 17:29 | Consultation ---
History of Present Illness General Chief Complaint: Dyspnea/Respdistress Reason for Consultation: Left heel ulcer Present Illness HPI Asked to evaluated patient who was admitted from SNF for respiratory distress. He was intubated upon admission and is currently in ICU on pressor support. He is not able to given history due to medical status. Upon presentation he was noted to have an ulcer of the left heel. It is unclear whether he has been bedridden for an extensive period of time. Allergies: Coded Allergies: No Known Allergies (Unverified , 01/24/19) Medication History Scheduled Ascorbic Acid* (Vitamin C*), 500 MG ORAL DAILY, (Reported) Clopidogrel Bisulfate* (Plavix*), 75 MG ORAL DAILY, (Reported) Cyanocobalamin (Vitamin B-12)* (Vitamin B-12*), 1,000 MCG ORAL QHS, (Reported) Donepezil Hcl* (Aricept*), 5 MG ORAL DAILY, (Reported) Enoxaparin* (Lovenox*), 40 MG SUBQ DAILY, (Reported) Ferrous Sulfate* (Ferrous Sulfate*), 325 MG ORAL DAILY, (Reported) Gabapentin* (Neurontin*), 300 MG ORAL THREE TIMES A DAY, (Reported) Lidocaine Patch* (Lidoderm Patch*), 1 PATCH TOPIC DAILY, (Reported) Multivitamins* (Multivitamins*), 1 TAB ORAL DAILY, (Reported) Pantoprazole* (Protonix*), 40 MG ORAL DAILY, (Reported) Zinc Sulfate (Zinc Sulfate*), 220 MG ORAL DAILY, (Reported) Patient History Limited by: medical condition History Provided By: Medical Record Healthcare decision maker Self Resuscitation status Full Code Advanced Directive on File No Past Medical/Surgical History Past Medical/Surgical History: (1) Renal failure (ARF), acute on chronic (2) Cardiomyopathy (3) Schizophrenia (4) PVD (peripheral vascular disease) Review of Systems ROS Narrative Unable to obtain Physical Exam Lines, tubes and drains: peripheral, endotracheal tube, mcmahon cath Cardiovascular/Chest: other - Pedal pulses not palpable on the left. Skin Exam: other - Left heel with unstageable pressure injury. Eschar present but adherent. Periskin with no erythema or warmth. No crepitus. Left groin with healed incision similar to vascular intervention. Right dorsal distal leg with evidence of radial forearm free flap reconstruction over the tendon. Multiple healed STSG donor sites on b/l anterior thighs. Small superficial wound on the dorsal right foot. Last 24 Hour Vital Signs Date Time Temp Pulse Resp B/P (MAP) Pulse Ox O2 Delivery O2 Flow Rate FiO2 01/26/19 16:00 35 01/26/19 16:00 110/61 01/26/19 16:00 Mechanical Ventilator 01/26/19 16:00 94 01/26/19 16:00 98.1 93 22 124/83 (97) 100 01/26/19 15:00 87 22 120/63 (82) 94 01/26/19 14:45 93 22 112/68 (83) 96 01/26/19 14:30 81 21 99/60 (73) 94 01/26/19 14:30 81 24 35 01/26/19 14:00 70 24 101/54 (70) 95 01/26/19 13:30 72 24 101/54 (70) 95 01/26/19 13:00 91/68 01/26/19 13:00 79 20 104/62 (76) 96 01/26/19 12:50 76 22 35 01/26/19 12:30 78 22 104/64 (77) 96 01/26/19 12:15 69 22 99/54 (69) 96 01/26/19 12:00 Mechanical Ventilator 01/26/19 12:00 35 01/26/19 12:00 78 01/26/19 12:00 98.9 72 23 102/57 (72) 96 01/26/19 11:45 111/72 01/26/19 11:45 78 21 111/72 (85) 99 01/26/19 11:30 77 22 91/69 (76) 96 01/26/19 11:15 78 21 106/71 (83) 96 01/26/19 11:00 84 24 114/66 (82) 98 01/26/19 11:00 115/68 01/26/19 10:53 84 23 35 01/26/19 10:45 79 22 112/67 (82) 96 01/26/19 10:30 77 22 114/65 (81) 97 01/26/19 10:15 79 21 109/65 (80) 96 01/26/19 10:00 79 22 110/66 (81) 97 01/26/19 09:45 81 22 112/64 (80) 96 01/26/19 09:30 82 20 115/68 (84) 97 01/26/19 09:28 83 22 121/73 (89) 97 01/26/19 09:00 87 25 133/77 (95) 96 01/26/19 08:45 88 29 35 01/26/19 08:30 97.6 92 24 127/77 (94) 95 01/26/19 08:00 90 24 133/77 (95) 95 01/26/19 08:00 127/77 01/26/19 08:00 35 01/26/19 08:00 90 01/26/19 08:00 Mechanical Ventilator 01/26/19 07:30 91 24 108/80 (89) 95 01/26/19 07:00 95 26 125/74 (91) 95 01/26/19 06:32 94 24 35 01/26/19 06:21 95 28 134/72 (92) 96 01/26/19 06:00 92 25 117/105 (109) 94 01/26/19 06:00 117/105 01/26/19 05:30 79 21 131/75 (93) 98 01/26/19 05:10 82 22 35 01/26/19 05:00 121/68 01/26/19 05:00 78 22 121/68 (85) 97 01/26/19 04:30 87 30 118/70 (86) 95 01/26/19 04:12 97.5 83 22 127/71 (89) 96 01/26/19 04:00 Mechanical Ventilator 01/26/19 04:00 35 01/26/19 03:49 83 01/26/19 03:20 78 22 35 01/26/19 03:16 80 29 117/72 (87) 96 01/26/19 03:00 86/74 01/26/19 03:00 76 21 86/74 (78) 97 01/26/19 02:30 79 23 118/73 (88) 95 01/26/19 02:00 121/80 01/26/19 02:00 76 22 121/80 (94) 98 01/26/19 01:30 84 24 123/71 (88) 97 01/26/19 01:03 80 27 35 01/26/19 01:00 86 23 121/72 (88) 96 01/26/19 01:00 121/72 01/26/19 00:30 81 26 120/72 (88) 97 01/26/19 00:12 121/74 01/26/19 00:00 80 01/26/19 00:00 35 01/26/19 00:00 97.8 80 28 121/74 (90) 98 01/26/19 00:00 Mechanical Ventilator 01/25/19 23:30 77 26 126/77 (93) 98 01/25/19 23:00 79 25 122/72 (89) 97 01/25/19 23:00 122/72 01/25/19 22:40 77 26 35 01/25/19 22:30 78 26 131/72 (91) 97 01/25/19 22:00 133/77 01/25/19 22:00 81 33 132/77 (95) 98 01/25/19 21:30 81 27 121/65 (83) 97 01/25/19 21:00 130/73 01/25/19 21:00 84 27 35 01/25/19 21:00 77 23 130/73 (92) 98 01/25/19 20:30 83 31 129/76 (93) 98 01/25/19 20:30 129/76 01/25/19 20:00 Mechanical Ventilator 01/25/19 20:00 35 01/25/19 20:00 80 01/25/19 20:00 133/71 01/25/19 20:00 97.7 80 32 133/71 (91) 98 01/25/19 19:30 119/69 01/25/19 19:30 80 26 119/69 (86) 97 01/25/19 19:00 80 38 133/74 (93) 100 01/25/19 18:54 83 30 35 01/25/19 18:29 127/76 01/25/19 18:00 77 26 131/76 (94) 99 01/25/19 17:30 76 13 122/81 (95) 99 01/25/19 17:29 100/59 01/25/19 17:29 27 100/59 Mechanical Ventilator 35 01/25/19 17:25 100/59 Intake and Output 01/25/19 01/26/19 19:00 07:00 Intake Total 3055.000 ml 2574.8 ml Output Total 985 ml 1435 ml Balance 2070.000 ml 1139.8 ml IV Total 3055.000 ml 2534.8 ml Tube Feeding 40 ml Output Urine Total 985 ml 1435 ml Laboratory Tests Test 01/25/19 21:04 01/26/19 02:50 01/26/19 04:35 01/26/19 09:24 Urine Random Sodium 91 mmol/L (20-110) Urine Legionella Antigen Pending White Blood Count 23.9 K/UL (4.8-10.8) *H Red Blood Count 3.44 M/UL (4.70-6.10) L Hemoglobin 10.6 G/DL (14.2-18.0) L Hematocrit 32.1 % (42.0-52.0) L Mean Corpuscular Volume 93 FL (80-99) Mean Corpuscular Hemoglobin 30.7 PG (27.0-31.0) Mean Corpuscular Hemoglobin Concent 32.9 G/DL (32.0-36.0) Red Cell Distribution Width 13.5 % (11.6-14.8) Platelet Count 215 K/UL (150-450) Mean Platelet Volume 6.1 FL (6.5-10.1) L Neutrophils (%) (Auto) % (45.0-75.0) Lymphocytes (%) (Auto) % (20.0-45.0) Monocytes (%) (Auto) % (1.0-10.0) Eosinophils (%) (Auto) % (0.0-3.0) Basophils (%) (Auto) % (0.0-2.0) Differential Total Cells Counted 100 Neutrophils % (Manual) 90 % (45-75) H Lymphocytes % (Manual) 8 % (20-45) L Monocytes % (Manual) 2 % (1-10) Eosinophils % (Manual) 0 % (0-3) Basophils % (Manual) 0 % (0-2) Band Neutrophils 0 % (0-8) Other Cell Type Pathologist review Platelet Estimate Adequate Platelet Morphology Normal Red Blood Cell Morphology Normal Erythrocyte Sedimentation Rate 100 MM/HR (0-20) H Reticulocyte Count 1.0 % (0.5-2.0) Prothrombin Time 12.0 SEC (9.30-11.50) H Prothromb Time International Ratio 1.1 (0.9-1.1) Activated Partial Thromboplast Time 31 SEC (23-33) Sodium Level 142 MMOL/L (136-145) Potassium Level 3.9 MMOL/L (3.5-5.1) Chloride Level 109 MMOL/L (98-107) H Carbon Dioxide Level 24 MMOL/L (21-32) Anion Gap 9 mmol/L (5-15) Blood Urea Nitrogen 20 mg/dL (7-18) H Creatinine 1.6 MG/DL (0.55-1.30) H Estimat Glomerular Filtration Rate 43.2 mL/min (>60) Glucose Level 129 MG/DL (74-106) #H Uric Acid 5.3 MG/DL (2.6-7.2) Calcium Level 7.3 MG/DL (8.5-10.1) L Phosphorus Level 2.2 MG/DL (2.5-4.9) L Magnesium Level 1.7 MG/DL (1.8-2.4) L Iron Level 24 ug/dL (50-175) L Total Iron Binding Capacity 159 ug/dL (250-450) L Percent Iron Saturation 15 % (15-50) Unsaturated Iron Binding 135 ug/dL (112-346) Ferritin 199 NG/ML (8-388) Total Bilirubin 0.3 MG/DL (0.2-1.0) Aspartate Amino Transf (AST/SGOT) 37 U/L (15-37) Alanine Aminotransferase (ALT/SGPT) 17 U/L (12-78) Alkaline Phosphatase 109 U/L (46-116) Lactate Dehydrogenase 206 U/L (81-234) C-Reactive Protein, Quantitative 24.8 mg/dL (0.00-0.90) H Pro-B-Type Natriuretic Peptide > 18705 pg/mL (0-125) H Total Protein 6.3 G/DL (6.4-8.2) L Albumin 1.7 G/DL (3.4-5.0) L Globulin 4.6 g/dL Albumin/Globulin Ratio 0.4 (1.0-2.7) L Carcinoembryonic Antigen Pending Vitamin B12 Level 989 PG/ML (193-986) H Folate 9.4 NG/ML (8.6-58.9) Urine Eosinophils None seen (NONE SEEN) Arterial Blood pH 7.412 (7.350-7.450) Arterial Blood Partial Pressure CO2 33.2 mmHg (35.0-45.0) L Arterial Blood Partial Pressure O2 78.8 mmHg (75.0-100.0) Arterial Blood HCO3 20.7 mmol/L (22.0-26.0) L Arterial Blood Oxygen Saturation 95.6 % (95-100) Arterial Blood Base Excess -3.3 (-2-2) L Kvng Test Positive Height (Feet): 5 Height (Inches): 6.00 Weight (Pounds): 154 Medications Current Medications Medications (Trade) Dose Ordered Sig/Ricardo Route PRN Reason Start Time Stop Time Status Last Admin Dose Admin Acetaminophen (Tylenol) 650 mg Q4H PRN ORAL fever 01/24/19 20:00 02/23/19 19:59 Albuterol/ Ipratropium (Albuterol/ Ipratropium) 3 ml Q4H PRN HHN Shortness of Breath 01/24/19 20:00 01/29/19 19:59 Amikacin Protocol (Amikacin pharmacy to dose) 1 ea DAILY PRN MISC PER RX PROTOCOL 01/25/19 20:45 02/24/19 20:44 Amikacin Sulfate 950 mg/Sodium Chloride 113.8 ml @ 113.8 mls/ hr Q36H IV 01/26/19 10:00 02/02/19 09:59 01/26/19 10:29 Chlorhexidine Gluconate (Roseanna-Hex 2%) 1 applic DAILY@2000 TOPIC 01/25/19 20:00 02/24/19 19:59 01/25/19 19:55 Dextrose (Dextrose 50%) 25 ml Q30M PRN IV Hypoglycemia 01/25/19 19:00 02/24/19 18:59 Dextrose (Dextrose 50%) 50 ml Q30M PRN IV Hypoglycemia 01/25/19 19:00 02/24/19 18:59 Ertapenem 1 gm/ Sodium Chloride 55 ml @ 110 mls/hr Q24H IV 01/24/19 23:00 01/29/19 22:59 01/25/19 22:40 Heparin Sodium (Porcine) (Heparin 5000 units/ml) 5,000 units EVERY 12 HOURS SUBQ 01/24/19 21:00 02/23/19 20:59 01/26/19 09:25 Hydrocortisone (Solu-CORTEF) 100 mg EVERY 8 HOURS IV 01/25/19 11:00 02/24/19 10:59 01/26/19 14:44 Insulin Aspart (NovoLOG) EVERY 6 HOURS SUBQ 01/26/19 00:00 02/25/19 00:00 01/26/19 12:04 Lorazepam (Ativan 2mg/ml 1ml) 2 mg Q2H PRN IV For Anxiety 01/24/19 20:00 01/31/19 19:59 01/25/19 21:33 Morphine Sulfate (Morphine Sulfate) 4 mg Q4H PRN IVP Severe Pain (Pain Scale 7-10) 01/24/19 20:00 01/31/19 19:59 Norepinephrine Bitartrate 8 mg/ Dextrose 500 ml @ 0 mls/hr Q24H IV 01/24/19 21:00 02/23/19 20:14 01/26/19 11:00 Ondansetron HCl (Zofran) 4 mg Q6H PRN IVP Nausea & Vomiting 01/24/19 20:00 02/23/19 19:59 Pantoprazole (Protonix) 40 mg DAILY IVP 01/25/19 09:00 02/24/19 08:59 01/26/19 09:25 Polyethylene Glycol (Miralax) 17 gm DAILYPRN PRN ORAL Constipation 01/24/19 20:00 02/23/19 19:59 Sodium Chloride 1,000 ml @ 40 mls/hr Q24H IVLG 01/26/19 12:30 02/25/19 12:29 01/26/19 12:39 Vancomycin HCl (Vanco rx to dose) 1 ea DAILY PRN MISC . 01/25/19 06:15 02/24/19 06:14 Assessment/Plan Assessment/Plan: Patient with multiple medical issues currently. Although cannot rule out an arterial outflow issue as a contributing factor to the left heel ulcer, it is more likely to be a pressure injury in light of the clinical appearance and history. Recommend therahoney to loosen the eschar. Need to offload and best way is to float both feet with pillows. Need to delineate vascular status with arterial duplex as well. Likely needs to be more stable hemodynamically prior to obtaining this. No surgical intervention warranted at this time but once the eschar has loosened, it can be excised at the bedside. Discussed the care with the nurse. Thank you for involving me in the care of this patient. Surjit Daniel MD Jan 26, 2019 17:29
--- NOTE | 2019-01-26 18:10 | NUR ---
NURSE NOTES: Turned and repositioned. Pt had 2800ml output from mcmahon catheter during shift. no signs of distress. Dr. Daniel at bedside assessing patient's wounds. left heel is unstageable with eschar per Dr. Daniel.
--- NOTE | 2019-01-26 19:00 | NUR ---
HAND-OFF: Report given to Bhavani Castellanos RN.
--- NOTE | 2019-01-26 19:40 | NUR ---
NURSE NOTES: PATIENT RESPONSE TO NAME, ON ETT TO VENT, AC22/TV500/FIO2 40%/PEEP5, O2 SATURATION OVER 100% NOTED, HEART RATE 90'S/MIN SR NOTED, ABDOMEN SOFT, NON TENDER, NO BM NOTED, OGT INTACT AND PATENT, ONGOING GLUCERNA 1.2 AT 30ML/HR, RESIDUE 40ML NOTED, NO N/V STATUS, F/C INTACT AND PATENT, YELLOW URINE OUTED, TLC TO RIGHT FEMORAL, INTACT AND PATENT, ONGOING NS AT 40ML/HR VIA TLC, 2 POINT SOFT RESTRAINTS FOR SAFETY, ON P200 BED, LOCKED BED, KEPT HOB 30 DEGREES AND BED ALARM, PROVIDED CALL LIGHT WITHIN REACH, WILL CONTINUE TO MONITOR.
[2019-01-26] MEDS: Miralax 17gm pkt ORAL PRN (19:46)
[2019-01-26] MEDS: Dyna-Hex 2% Top Sol 2oz TOPIC SCH (19:46)
[2019-01-26] MEDS: LORazepam Inj 2mg/ml 1ml IV PRN (21:26)
--- NOTE | 2019-01-26 21:26 | NUR ---
NURSE NOTES: PATIENT ANXIOUS STATUS, GIVEN ATIVAN 2MG BY IVP SLOWLY PRN ORDER, WILL CONTINUE TO MONITOR.
--- NOTE | 2019-01-26 22:07 | NUR ---
NURSE NOTES: PATIENT ASLEEP STATUS, NO PAIN OR DISTRESS NOTED AT THIS TIME.
--- NOTE | 2019-01-26 22:30 | Consultation ---
DATE OF CONSULTATION: 01/26/2019 CARDIOLOGY CONSULTATION CONSULTING PHYSICIAN: Sammy Helm M.D. REFERRING PHYSICIAN: Corey Short D.O. REASON FOR REFERRAL: Hypotension and tachycardia. HISTORY OF PRESENT ILLNESS: This is a very unfortunate 68-year-old gentleman, who is really not able to provide any meaningful history whatsoever. Information is obtained from review of the patient's chart. I have attempted to see if any records from [facility] that I can review, unfortunately none available at that facility either. The patient is a resident of [facility] and has history of multiple medical problems and was transferred to [facility] because of respiratory issues, fever, sepsis, tachycardia, and he was noted to have significant tachycardia and respiratory failure, was intubated and he is on a mechanical ventilator at the present time. He is not able to provide any meaningful history whatsoever. PAST MEDICAL HISTORY: According to the records, he has history of urinary tract infection, leukocytosis, sepsis, peripheral vascular disease, status post left femoral-popliteal bypass surgery and left iliofemoral endarterectomy, and infected wound of the left foot with peripheral arterial disease. He has chronic kidney disease, chronic obstructive pulmonary disease, osteoarthritis, dementia, polyneuropathy, , anemia of chronic disease, protein-calorie malnutrition, schizophrenia, and history of anemia. SOCIAL HISTORY: He is a resident of [facility] and he apparently has a history of smoking and alcohol use previously. REVIEW OF SYSTEMS: Really, unable to obtain at the present time as the patient is on a mechanical ventilator. The patient's medications from the facility where he is residing includes Ativan, Seroquel, Tylenol, and [place]. Unfortunately, difficult to find the remainder of the list. PHYSICAL EXAMINATION: GENERAL: Shows an elderly gentleman, on a mechanical ventilator, looks older than stated age of 68, noncommunicative, but he ia minimally responsive, and agitated. VITAL SIGNS: The patient's latest vital signs, blood pressure has been ranging between 99/62, most recently 124/83, temperature 98.1 with the heart rate in the 90s, and his T-max overnight has been 100 degrees only. NECK: Supple. LUNGS: Anteriorly clear. CARDIAC: Regular rhythm. Tachycardic. ABDOMEN: Soft and nontender. Positive bowel sounds. EXTREMITIES: There is no edema. He does have demarcated area on the lateral aspect of the right leg below the knee, may be ischemia or skin graft. His blood tests, sodium 142, potassium 3.9, chloride 109, bicarb 20, and creatinine 1.6, creatinine was 2.6 at the time of his admission. dropped to 1.6 and glucose of 129. A1c of 5.3. Calcium is 7.3. Phosphorus of 2.2. Magnesium 1.7. Iron of 24, 15% saturation. Liver function tests are normal. Total protein of 6.3. Albumin of 1.7. B12 of 989. Folic acid of 9.1. ProBNP is greater than 35,000. CRP of 24.8. PH is 7.4, pCO2 32, pO2 of 78, and bicarbonate of 20. White count was 13.9, now 23.9, hemoglobin was 14.2, now 10.6, and platelet count of 242,000, now is 215,000. He has 90% polys and 8 lymphocytes. Sedimentation rate of 100. Retic count of 1. Coags, INR 1 and PTT of 31. Urinalysis shows evidence of urinary tract infection with 15 to 20 wbc's, 2 to 4 rbc's, and 2+ leukocyte esterase. Urine osmolality of 323. Urine sodium of 91. Urine eosinophils, none seen. Telemetry shows sinus rhythm. Electrocardiogram shows sinus tachycardia at the rate of 120, really no nonspecific T-wave changes are noted on this EKG. A chest x-ray was performed, which I reviewed personally, evidence of pneumonia, extensive bilateral infiltrate as read by the radiologist with the endotracheal tube above the cristina. ASSESSMENT AND PLAN: 1. Septic syndrome. 2. Respiratory failure requiring intubation. 3. Pneumonia. 4. Schizophrenia and dementia. 5. Urinary tract infection. 6. Renal failure. 7. Hypoalbuminemia/malnutrition. 8. Sinus tachycardia secondary to above. 9. Left ventricular systolic dysfunction. PLAN: Dr. Short, this patient was seen in cardiac consultation. The patient has had an echocardiogram that was technically difficult showing ejection fraction 30% to 35% on a preliminary report, which needs to be reviewed with the moderate diastolic dysfunction that has been documented on that echocardiogram. He does have respiratory failure, getting intravenous antibiotics, and ventilator support. In light of the fact that he has decreased LV dysfunction, we probably should be careful with the administration of intravenous piggyback to IV fluids if possible as they develop heart failure on top of his pneumonia thus worsening his failure. I will review the echocardiogram. Repeat the cardiac enzymes and EKG in the morning. Vasopressin support for any hypotension may be indicated rather than large doses of IV fluid boluses in the setting of cardiomyopathy although he has had some fluid administration already about 3 liters positive over the day today. I will follow the patient along with you. Sammy Helm M.D. DR: LA JOB#: [id number] CC:
[2019-01-26] MEDS: Ertapenem 1 GM in NS 55 ML IV SCH (22:34)
[2019-01-27] VITALS (29 sets, daily range): BP systolic 73–122; BP diastolic 36–76
--- NOTE | 2019-01-27 00:05 | NUR ---
NURSE NOTES: PATIENT ASLEEP STATUS, ORAL CARE WAS DONE, TOLERATED OGT FEEDING, KEPT HOB 30 DEGREES, RELEASED RESTRAINTS AND REAPPLIED, WILL CONTINUE TO MONITOR.
--- NOTE | 2019-01-27 02:10 | NUR ---
NURSE NOTES: NO ACUTE DISTRESS NOTED AT THIS TIME.
--- NOTE | 2019-01-27 04:00 | NUR ---
NURSE NOTES: MORNING CARE AND ORAL CARE WAS DONE.
[2019-01-27 05:16] LABS: BASOPHILS % (AUTO) 0.1 % (0.0-2.0); HEMATOCRIT 28.8 % (42.0-52.0); HEMOGLOBIN 9.4 G/DL (14.2-18.0); LYMPHOCYTES % (AUTO) 13.3 % (20.0-45.0); MEAN CORPUSCULAR VOLUME 93 FL (80-99); MONOCYTES % (AUTO) 3.8 % (1.0-10.0); NEUTROPHILS % (AUTO) 82.7 % (45.0-75.0); PLATELET COUNT 196 K/UL (150-450); RED BLOOD COUNT 3.12 M/UL (4.70-6.10); RED CELL DISTRIBUTION WIDTH 13.6 % (11.6-14.8); WHITE BLOOD COUNT 14.2 K/UL (4.8-10.8)
[2019-01-27] MEDS: Hydrocortisone 100mg Inj IV SCH ×3 (05:41→22:10)
[2019-01-27] MEDS: NovoLOG Insulin Flexpen SUBQ SCH ×4 (05:43→23:40)
[2019-01-27 05:58] LABS: ALANINE AMINOTRANSFERASE 46 U/L (12-78); ALBUMIN 1.6 G/DL (3.4-5.0); ALBUMIN/GLOBULIN RATIO 0.4 (1.0-2.7); ALKALINE PHOSPHATASE 97 U/L (46-116); ANION GAP 6 mmol/L (5-15); ASPARTATE AMINO TRANSFERASE 73 U/L (15-37); BILIRUBIN,TOTAL 0.3 MG/DL (0.2-1.0); BLOOD UREA NITROGEN 19 mg/dL (7-18); CALCIUM 7.4 MG/DL (8.5-10.1); CARBON DIOXIDE 28 MMOL/L (21-32); CHLORIDE 107 MMOL/L (98-107); CREATININE 1.5 MG/DL (0.55-1.30); POTASSIUM 3.1 MMOL/L (3.5-5.1); SODIUM 141 MMOL/L (136-145)
[2019-01-27 06:12] LABS: CHOLESTEROL 95 MG/DL (< 200); HDL CHOLESTEROL 31 MG/DL (40-60); TRIGLYCERIDES 51 MG/DL (30-150)
--- NOTE | 2019-01-27 06:26 | NUR ---
NURSE NOTES: HELD FEEDING SINCE 0400AM DUE TO WEANING PROTOCOLS, OLIGURIA NOTED, WILL CONTINUE TO MONITOR.
--- NOTE | 2019-01-27 07:14 | NUR ---
HAND-OFF: Report given to Sara EPPS RN.
--- NOTE | 2019-01-27 07:15 | NUR ---
NURSE NOTES: Received pt from EUGENIA Rao. Pt responds to name and touch. Orally intubated with ETT 7.5/26cm at lip line, AC 22/TV 500/Fio2 40%, Peep +5, Spo2 96%. Mary Beth heard bilateral b/s. OGT clamped and TF held for weaning trial. NS@40ml/hr running via right femoral TLC. Costello catheter draining clear yellow urine well to gravity. Bilateral soft wrist restraints in place, skin is intact and warm to touch. Bed locked, alarmed and in lowest position. Will continue plan of care.
[2019-01-27] MEDS: Pantoprazole Inj IVP SCH (08:11)
[2019-01-27] MEDS: Heparin 5000 units/ml inj SUBQ SCH ×2 (08:12→20:28)
--- NOTE | 2019-01-27 08:37 | NUR ---
NURSE NOTES: Received orders to start weaning for this patient today, per Dr. Anthony
--- NOTE | 2019-01-27 09:11 | NUR ---
RESPIRATORY NOTE: Placed pt on CPAP PS 8 per weaning protocol. Pt did not pass NIF -14 and VC 235. ABG done. Dr. Anthony aware. Placed pt back on AC mode. EUGENIA Dubon aware.
--- NOTE | 2019-01-27 09:33 | General Progress Note ---
Assessment/Plan Problem List: (1) Renal failure (ARF), acute on chronic ICD Codes: N17.9 - Acute kidney failure, unspecified; N18.9 - Chronic kidney disease, unspecified SNOMED: 831339918 (2) Sepsis ICD Codes: A41.9 - Sepsis, unspecified organism SNOMED: 06738439 Qualifiers: Qualified Codes: A41.9 - Sepsis, unspecified organism (3) Malignant neoplasm of right kidney ICD Codes: C64.1 - Malignant neoplasm of right kidney, except renal pelvis SNOMED: 209060811 (4) Acute respiratory failure ICD Codes: J96.00 - Acute respiratory failure, unspecified whether with hypoxia or hypercapnia SNOMED: 13747842 (5) PVD (peripheral vascular disease) ICD Codes: I73.9 - Peripheral vascular disease, unspecified SNOMED: 859822776 Status: unchanged Assessment/Plan: vent abx wound care cbc bmp am Subjective Constitutional: Reports: weakness Allergies: Coded Allergies: No Known Allergies (Unverified , 01/24/19) All Systems: reviewed and negative except above Subjective intubated in icu Objective Last 24 Hour Vital Signs Date Time Temp Pulse Resp B/P (MAP) Pulse Ox O2 Delivery O2 Flow Rate FiO2 01/27/19 09:21 97 01/27/19 09:11 69 24 40 01/27/19 09:00 71 24 97/53 (68) 98 01/27/19 08:30 64 20 107/54 (71) 98 01/27/19 08:00 98.6 61 22 100/52 (68) 98 01/27/19 08:00 Mechanical Ventilator 01/27/19 08:00 40 01/27/19 07:30 70 19 103/55 (71) 98 01/27/19 07:00 66 17 107/75 (86) 96 01/27/19 07:00 78 22 40 01/27/19 07:00 66 17 107/75 (86) 96 01/27/19 06:00 75 26 109/66 (80) 99 01/27/19 05:02 82 22 40 01/27/19 05:00 78 19 110/76 (87) 98 01/27/19 04:00 Mechanical Ventilator 01/27/19 04:00 98.2 78 15 110/74 (86) 97 01/27/19 04:00 40 01/27/19 03:20 83 01/27/19 03:06 82 25 40 01/27/19 03:00 78 36 107/72 (84) 96 01/27/19 02:30 96 18 122/73 (89) 93 01/27/19 02:00 77 21 99/36 (57) 96 01/27/19 01:30 84 22 102/57 (72) 98 01/27/19 01:26 84 18 104/43 (63) 97 01/27/19 01:00 82 20 73/57 (62) 95 01/27/19 00:39 79 23 40 01/27/19 00:00 Mechanical Ventilator 01/27/19 00:00 98.2 76 21 94/49 (64) 94 01/27/19 00:00 40 01/26/19 23:38 86 01/26/19 23:00 80 20 102/53 (69) 96 01/26/19 22:55 81 27 40 01/26/19 22:00 79 20 120/77 (91) 95 01/26/19 21:00 85 23 101/63 (76) 97 01/26/19 20:52 94 24 40 01/26/19 20:04 89 01/26/19 20:00 Mechanical Ventilator 01/26/19 20:00 98.6 93 22 101/59 (73) 96 01/26/19 20:00 40 01/26/19 19:00 90 23 107/90 (96) 98 01/26/19 18:35 92 26 40 01/26/19 18:00 91 23 106/69 (81) 96 01/26/19 17:30 89 24 114/66 (82) 96 01/26/19 17:00 87 18 94/58 (70) 95 01/26/19 16:32 91 26 40 01/26/19 16:30 94 25 110/61 (77) 93 01/26/19 16:00 35 01/26/19 16:00 110/61 01/26/19 16:00 Mechanical Ventilator 01/26/19 16:00 94 01/26/19 16:00 98.1 93 22 124/83 (97) 100 01/26/19 15:30 98 23 114/73 (87) 89 01/26/19 15:00 87 22 120/63 (82) 94 01/26/19 14:45 93 22 112/68 (83) 96 01/26/19 14:30 81 21 99/60 (73) 94 01/26/19 14:30 81 24 35 01/26/19 14:00 70 24 101/54 (70) 95 01/26/19 13:30 72 24 101/54 (70) 95 01/26/19 13:00 91/68 01/26/19 13:00 79 20 104/62 (76) 96 01/26/19 12:50 76 22 35 01/26/19 12:30 78 22 104/64 (77) 96 01/26/19 12:15 69 22 99/54 (69) 96 01/26/19 12:00 Mechanical Ventilator 01/26/19 12:00 35 01/26/19 12:00 78 01/26/19 12:00 98.9 72 23 102/57 (72) 96 01/26/19 11:45 111/72 01/26/19 11:45 78 21 111/72 (85) 99 01/26/19 11:30 77 22 91/69 (76) 96 01/26/19 11:15 78 21 106/71 (83) 96 01/26/19 11:00 84 24 114/66 (82) 98 01/26/19 11:00 115/68 01/26/19 10:53 84 23 35 01/26/19 10:45 79 22 112/67 (82) 96 01/26/19 10:30 77 22 114/65 (81) 97 01/26/19 10:15 79 21 109/65 (80) 96 01/26/19 10:00 79 22 110/66 (81) 97 01/26/19 09:45 81 22 112/64 (80) 96 Intake and Output 01/26/19 01/27/19 19:00 07:00 Intake Total 1453.0 ml 835 ml Output Total 2700 ml 755 ml Balance -1247.0 ml 80 ml Free Water 120 ml IV Total 1093.0 ml 535 ml Tube Feeding 240 ml 240 ml Other 60 ml Output Urine Total 2700 ml 755 ml Laboratory Tests 01/27/19 04:00: White Blood Count 14.2H, Red Blood Count 3.12L, Hemoglobin 9.4L, Hematocrit 28.8L, Mean Corpuscular Volume 93, Mean Corpuscular Hemoglobin 30.3, Mean Corpuscular Hemoglobin Concent 32.7, Red Cell Distribution Width 13.6, Platelet Count 196, Mean Platelet Volume 5.9L, Neutrophils (%) (Auto) 82.7H, Lymphocytes (%) (Auto) 13.3L, Monocytes (%) (Auto) 3.8, Eosinophils (%) (Auto) 0.0, Basophils (%) (Auto) 0.1, Sodium Level 141, Potassium Level 3.1L, Chloride Level 107, Carbon Dioxide Level 28, Anion Gap 6, Blood Urea Nitrogen 19H, Creatinine 1.5H, Estimat Glomerular Filtration Rate 46.5, Glucose Level 129H, Calcium Level 7.4L, Phosphorus Level 3.0, Magnesium Level 2.1, Total Bilirubin 0.3, Aspartate Amino Transf (AST/SGOT) 73H, Alanine Aminotransferase (ALT/SGPT) 46, Alkaline Phosphatase 97, Troponin I 0.333H, C-Reactive Protein, Quantitative 10.0H, Pro-B-Type Natriuretic Peptide > 94024F, Total Protein 6.0L , Albumin 1.6L, Globulin 4.4, Albumin/Globulin Ratio 0.4L, Triglycerides Level 51, Cholesterol Level 95, LDL Cholesterol 53, HDL Cholesterol 31L, Cholesterol/ HDL Ratio 3.1L, Thyroid Stimulating Hormone (TSH) 2.057, Random Vancomycin Level 9.7 Height (Feet): 5 Height (Inches): 6.00 Weight (Pounds): 153 General Appearance: lethargic EENT: normal ENT inspection Neck: normal alignment Cardiovascular: normal peripheral pulses, normal rate, regular rhythm Respiratory/Chest: chest wall non-tender, lungs clear, normal breath sounds Abdomen: normal bowel sounds, non tender, soft Extremities: normal inspection Edema: no edema noted Arm (L), no edema noted Arm (R), no edema noted Leg (L), no edema noted Leg (R), no edema noted Pedal (L), no edema noted Pedal (R), no edema noted Generalized Neurologic: motor weakness Skin: normal pigmentation, warm/dry Corey Short DO Jan 27, 2019 09:33
--- NOTE | 2019-01-27 09:57 | NUR ---
RADIOLOGY DEPT., CHEST X-RAY DONE.-P.DYE
[2019-01-27] MEDS ORDERED: Vancomycin 1.5gm/NS Premix q24h IVPB SCH (10:00)
--- NOTE | 2019-01-27 10:12 | NUR ---
NURSE NOTES: Turned and repositioned. Kept dry and clean. IVF infusing well. Sxn provided via ETT, moderate thick secretions noted.
--- NOTE | 2019-01-27 10:15 | Pulmonolgy Critical Care Note ---
Critical Care - Asmt/Plan Problems: (1) Acute respiratory failure (2) Septic shock (3) Systolic heart failure (4) Chronic kidney disease (5) Malignant neoplasm of right kidney (6) COPD (chronic obstructive pulmonary disease) (7) Schizophrenia Respiratory: monitor respiratory rate, adjust FIO2, CXR Cardiac: continue to monitor HR/BP Renal: F/U I&O, check electrolytes Infectious Disease: check cultures, continue antibiotics Gastrointestinal: continue feedings/current rate Endocrine: monitor blood sugar Hematologic: monitor H/H Neurologic: PRN Ativan, keep patient comfortable Affect: PRN ativan Time Spent (Minutes): 40 Notes Reviewed: managing consultant, cardio Discussed with: nurses, consultants, shoe parts 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 electronic - Objective Last 24 Hour Vital Signs Date Time Temp Pulse Resp B/P (MAP) Pulse Ox O2 Delivery O2 Flow Rate FiO2 01/27/19 09:21 97 01/27/19 09:11 69 24 01/27/19 09:00 71 24 97/53 (68) 98 01/27/19 08:30 64 20 107/54 (71) 98 01/27/19 08:00 98.6 61 22 100/52 (68) 98 01/27/19 08:00 Mechanical Ventilator 01/27/19 08:00 40 01/27/19 07:30 70 19 103/55 (71) 98 01/27/19 07:00 66 17 107/75 (86) 96 01/27/19 07:00 78 22 40 01/27/19 07:00 66 17 107/75 (86) 96 01/27/19 06:00 75 26 109/66 (80) 99 01/27/19 05:02 82 22 40 01/27/19 05:00 78 19 110/76 (87) 98 01/27/19 04:00 Mechanical Ventilator 01/27/19 04:00 98.2 78 15 110/74 (86) 97 01/27/19 04:00 40 01/27/19 03:20 83 01/27/19 03:06 82 25 40 01/27/19 03:00 78 36 107/72 (84) 96 01/27/19 02:30 96 18 122/73 (89) 93 01/27/19 02:00 77 21 99/36 (57) 96 01/27/19 01:30 84 22 102/57 (72) 98 01/27/19 01:26 84 18 104/43 (63) 97 01/27/19 01:00 82 20 73/57 (62) 95 01/27/19 00:39 79 23 40 01/27/19 00:00 Mechanical Ventilator 01/27/19 00:00 98.2 76 21 94/49 (64) 94 01/27/19 00:00 40 01/26/19 23:38 86 01/26/19 23:00 80 20 102/53 (69) 96 01/26/19 22:55 81 27 40 01/26/19 22:00 79 20 120/77 (91) 95 01/26/19 21:00 85 23 101/63 (76) 97 01/26/19 20:52 94 24 40 01/26/19 20:04 89 01/26/19 20:00 Mechanical Ventilator 01/26/19 20:00 98.6 93 22 101/59 (73) 96 01/26/19 20:00 40 01/26/19 19:00 90 23 107/90 (96) 98 01/26/19 18:35 92 26 40 01/26/19 18:00 91 23 106/69 (81) 96 01/26/19 17:30 89 24 114/66 (82) 96 01/26/19 17:00 87 18 94/58 (70) 95 01/26/19 16:32 91 26 40 01/26/19 16:30 94 25 110/61 (77) 93 01/26/19 16:00 35 01/26/19 16:00 110/61 01/26/19 16:00 Mechanical Ventilator 01/26/19 16:00 94 01/26/19 16:00 98.1 93 22 124/83 (97) 100 01/26/19 15:30 98 23 114/73 (87) 89 01/26/19 15:00 87 22 120/63 (82) 94 01/26/19 14:45 93 22 112/68 (83) 96 01/26/19 14:30 81 21 99/60 (73) 94 01/26/19 14:30 81 24 35 01/26/19 14:00 70 24 101/54 (70) 95 01/26/19 13:30 72 24 101/54 (70) 95 01/26/19 13:00 91/68 01/26/19 13:00 79 20 104/62 (76) 96 01/26/19 12:50 76 22 35 01/26/19 12:30 78 22 104/64 (77) 96 01/26/19 12:15 69 22 99/54 (69) 96 01/26/19 12:00 Mechanical Ventilator 01/26/19 12:00 35 01/26/19 12:00 78 01/26/19 12:00 98.9 72 23 102/57 (72) 96 01/26/19 11:45 111/72 01/26/19 11:45 78 21 111/72 (85) 99 01/26/19 11:30 77 22 91/69 (76) 96 01/26/19 11:15 78 21 106/71 (83) 96 01/26/19 11:00 84 24 114/66 (82) 98 01/26/19 11:00 115/68 01/26/19 10:53 84 23 35 01/26/19 10:45 79 22 112/67 (82) 96 01/26/19 10:30 77 22 114/65 (81) 97 01/26/19 10:15 79 21 109/65 (80) 96 Status: sedated Heart: HR/BP stable Abdomen: soft, active bowel sounds Extremities: no C/C/E Decubiti: location Micro: Microbiology Date/Time Source Procedure Growth Status 01/24/19 15:15 Blood Blood Culture - Preliminary NO GROWTH AFTER 48 HOURS Resulted 01/24/19 13:25 Blood Blood Culture - Preliminary NO GROWTH AFTER 48 HOURS Resulted 01/25/19 03:00 Sputum Gram Stain - Final Resulted 01/25/19 03:00 Sputum Sputum Culture Pending Resulted 01/24/19 16:20 Nasal Nares MRSA Culture - Final Staphylococcus Aureus - Mrsa Complete 01/24/19 13:35 Nasal Nares - Final Complete 01/24/19 13:35 Nasal Nares - Final Complete 01/25/19 10:30 Urine,Clean Catch Urine Culture - Preliminary NO GROWTH Resulted 01/24/19 16:20 Rectum - Final NO CARBAPENEM-RESISTANT ENTEROBACTERI... Complete 01/24/19 16:20 Rectum VRE Culture - Final Enterococcus Faecium - Vre Complete Accucheck: 128 Critical Care - Subjective ROS Limited/Unobtainable: No Condition: critical EKG Rhythm: Sinus Rhythm Vent Support Mode: CPAP Sputum Amount: Small PEEP: 5.0 PIP: 24 Tube Feeding Amount: 0 I&O: Intake and Output 01/26/19 01/27/19 19:00 07:00 Intake Total 1453.0 ml 835 ml Output Total 2700 ml 755 ml Balance -1247.0 ml 80 ml Free Water 120 ml IV Total 1093.0 ml 535 ml Tube Feeding 240 ml 240 ml Other 60 ml Output Urine Total 2700 ml 755 ml CXR: bilateral infiltrate ET-Tube: 7.5 ET Position: 25 Labs: Laboratory Tests Test 01/27/19 04:00 01/27/19 09:54 White Blood Count 14.2 K/UL (4.8-10.8) H Red Blood Count 3.12 M/UL (4.70-6.10) L Hemoglobin 9.4 G/DL (14.2-18.0) L Hematocrit 28.8 % (42.0-52.0) L Mean Corpuscular Volume 93 FL (80-99) Mean Corpuscular Hemoglobin 30.3 PG (27.0-31.0) Mean Corpuscular Hemoglobin Concent 32.7 G/DL (32.0-36.0) Red Cell Distribution Width 13.6 % (11.6-14.8) Platelet Count 196 K/UL (150-450) Mean Platelet Volume 5.9 FL (6.5-10.1) L Neutrophils (%) (Auto) 82.7 % (45.0-75.0) H Lymphocytes (%) (Auto) 13.3 % (20.0-45.0) L Monocytes (%) (Auto) 3.8 % (1.0-10.0) Eosinophils (%) (Auto) 0.0 % (0.0-3.0) Basophils (%) (Auto) 0.1 % (0.0-2.0) Sodium Level 141 MMOL/L (136-145) Potassium Level 3.1 MMOL/L (3.5-5.1) L Chloride Level 107 MMOL/L (98-107) Carbon Dioxide Level 28 MMOL/L (21-32) Anion Gap 6 mmol/L (5-15) Blood Urea Nitrogen 19 mg/dL (7-18) H Creatinine 1.5 MG/DL (0.55-1.30) H Estimat Glomerular Filtration Rate 46.5 mL/min (>60) Glucose Level 129 MG/DL (74-106) H Calcium Level 7.4 MG/DL (8.5-10.1) L Phosphorus Level 3.0 MG/DL (2.5-4.9) Magnesium Level 2.1 MG/DL (1.8-2.4) Total Bilirubin 0.3 MG/DL (0.2-1.0) Aspartate Amino Transf (AST/SGOT) 73 U/L (15-37) H Alanine Aminotransferase (ALT/SGPT) 46 U/L (12-78) Alkaline Phosphatase 97 U/L (46-116) Troponin I 0.333 ng/mL (0.000-0.056) C-Reactive Protein, Quantitative 10.0 mg/dL (0.00-0.90) H Pro-B-Type Natriuretic Peptide > 89466 pg/mL (0-125) H Total Protein 6.0 G/DL (6.4-8.2) L Albumin 1.6 G/DL (3.4-5.0) L Globulin 4.4 g/dL Albumin/Globulin Ratio 0.4 (1.0-2.7) L Triglycerides Level 51 MG/DL (30-150) Cholesterol Level 95 MG/DL (< 200) LDL Cholesterol 53 mg/dL (<100) HDL Cholesterol 31 MG/DL (40-60) L Cholesterol/HDL Ratio 3.1 (3.3-4.4) L Thyroid Stimulating Hormone (TSH) 2.057 uiU/mL (0.358-3.740) Random Vancomycin Level 9.7 ug/mL Arterial Blood pH 7.453 (7.350-7.450) Arterial Blood Partial Pressure CO2 34.7 mmHg (35.0-45.0) L Arterial Blood Partial Pressure O2 75.0 mmHg (75.0-100.0) Arterial Blood HCO3 23.7 mmol/L (22.0-26.0) Arterial Blood Oxygen Saturation 94.6 % (95-100) L Arterial Blood Base Excess 0.1 (-2-2) Kvng Test Positive Ron Anthony MD Jan 27, 2019 10:15
--- NOTE | 2019-01-27 11:35 | Nephrology Progress Note ---
Assessment/Plan Problem List: (1) Renal failure (ARF), acute on chronic (2) Acute respiratory failure (3) Septic shock (4) Cardiomyopathy Assessment Renal failure- Likely acute on Chronic- Cr lower Acute respiratory failure- intubated on Vent Septic Shock- On pressors COPD PVD Schizophrenia Plan K supplement down on hydration One dose IV Lasix mag and Phos and K supplement as needed 2D Echo Low Ej Fx - Global Hypokinesis Avoid nephrotoxics afterload reduction monitor renal parameters urine studies ADRIAN IMPRESSION: Nonobstructive stones in the left kidney demonstrated. Bilateral renal cysts. Subjective ROS Limited/Unobtainable: Yes Objective Objective Last 24 Hour Vital Signs Date Time Temp Pulse Resp B/P (MAP) Pulse Ox O2 Delivery O2 Flow Rate FiO2 01/27/19 09:21 97 01/27/19 09:11 69 24 01/27/19 09:00 71 24 97/53 (68) 98 01/27/19 08:30 64 20 107/54 (71) 98 01/27/19 08:00 98.6 61 22 100/52 (68) 98 01/27/19 08:00 Mechanical Ventilator 01/27/19 08:00 40 01/27/19 07:30 70 19 103/55 (71) 98 01/27/19 07:00 66 17 107/75 (86) 96 01/27/19 07:00 78 22 40 01/27/19 07:00 66 17 107/75 (86) 96 01/27/19 06:00 75 26 109/66 (80) 99 01/27/19 05:02 82 22 40 01/27/19 05:00 78 19 110/76 (87) 98 01/27/19 04:00 Mechanical Ventilator 01/27/19 04:00 98.2 78 15 110/74 (86) 97 01/27/19 04:00 40 01/27/19 03:20 83 01/27/19 03:06 82 25 40 01/27/19 03:00 78 36 107/72 (84) 96 01/27/19 02:30 96 18 122/73 (89) 93 01/27/19 02:00 77 21 99/36 (57) 96 01/27/19 01:30 84 22 102/57 (72) 98 01/27/19 01:26 84 18 104/43 (63) 97 01/27/19 01:00 82 20 73/57 (62) 95 01/27/19 00:39 79 23 40 01/27/19 00:00 Mechanical Ventilator 01/27/19 00:00 98.2 76 21 94/49 (64) 94 01/27/19 00:00 40 01/26/19 23:38 86 01/26/19 23:00 80 20 102/53 (69) 96 01/26/19 22:55 81 27 40 01/26/19 22:00 79 20 120/77 (91) 95 01/26/19 21:00 85 23 101/63 (76) 97 01/26/19 20:52 94 24 40 01/26/19 20:04 89 01/26/19 20:00 Mechanical Ventilator 01/26/19 20:00 98.6 93 22 101/59 (73) 96 01/26/19 20:00 40 01/26/19 19:00 90 23 107/90 (96) 98 01/26/19 18:35 92 26 40 01/26/19 18:00 91 23 106/69 (81) 96 01/26/19 17:30 89 24 114/66 (82) 96 01/26/19 17:00 87 18 94/58 (70) 95 01/26/19 16:32 91 26 40 01/26/19 16:30 94 25 110/61 (77) 93 01/26/19 16:00 35 01/26/19 16:00 110/61 01/26/19 16:00 Mechanical Ventilator 01/26/19 16:00 94 01/26/19 16:00 98.1 93 22 124/83 (97) 100 01/26/19 15:30 98 23 114/73 (87) 89 01/26/19 15:00 87 22 120/63 (82) 94 01/26/19 14:45 93 22 112/68 (83) 96 01/26/19 14:30 81 21 99/60 (73) 94 01/26/19 14:30 81 24 35 01/26/19 14:00 70 24 101/54 (70) 95 01/26/19 13:30 72 24 101/54 (70) 95 01/26/19 13:00 91/68 01/26/19 13:00 79 20 104/62 (76) 96 01/26/19 12:50 76 22 35 01/26/19 12:30 78 22 104/64 (77) 96 01/26/19 12:15 69 22 99/54 (69) 96 01/26/19 12:00 Mechanical Ventilator 01/26/19 12:00 35 01/26/19 12:00 78 01/26/19 12:00 98.9 72 23 102/57 (72) 96 01/26/19 11:45 111/72 01/26/19 11:45 78 21 111/72 (85) 99 Intake and Output 01/26/19 01/27/19 19:00 07:00 Intake Total 1453.0 ml 835 ml Output Total 2700 ml 755 ml Balance -1247.0 ml 80 ml Free Water 120 ml IV Total 1093.0 ml 535 ml Tube Feeding 240 ml 240 ml Other 60 ml Output Urine Total 2700 ml 755 ml Laboratory Tests 01/27/19 04:00: White Blood Count 14.2H, Red Blood Count 3.12L, Hemoglobin 9.4L, Hematocrit 28.8L, Mean Corpuscular Volume 93, Mean Corpuscular Hemoglobin 30.3, Mean Corpuscular Hemoglobin Concent 32.7, Red Cell Distribution Width 13.6, Platelet Count 196, Mean Platelet Volume 5.9L, Neutrophils (%) (Auto) 82.7H, Lymphocytes (%) (Auto) 13.3L, Monocytes (%) (Auto) 3.8, Eosinophils (%) (Auto) 0.0, Basophils (%) (Auto) 0.1, Sodium Level 141, Potassium Level 3.1L, Chloride Level 107, Carbon Dioxide Level 28, Anion Gap 6, Blood Urea Nitrogen 19H, Creatinine 1.5H, Estimat Glomerular Filtration Rate 46.5, Glucose Level 129H, Calcium Level 7.4L, Phosphorus Level 3.0, Magnesium Level 2.1, Total Bilirubin 0.3, Aspartate Amino Transf (AST/SGOT) 73H, Alanine Aminotransferase (ALT/SGPT) 46, Alkaline Phosphatase 97, Troponin I 0.333H, C-Reactive Protein, Quantitative 10.0H, Pro-B-Type Natriuretic Peptide > 54527T, Total Protein 6.0L , Albumin 1.6L, Globulin 4.4, Albumin/Globulin Ratio 0.4L, Triglycerides Level 51, Cholesterol Level 95, LDL Cholesterol 53, HDL Cholesterol 31L, Cholesterol/ HDL Ratio 3.1L, Thyroid Stimulating Hormone (TSH) 2.057, Random Vancomycin Level 9.7 01/27/19 09:54: Arterial Blood pH 7.453H, Arterial Blood Partial Pressure CO2 34.7L, Arterial Blood Partial Pressure O2 75.0, Arterial Blood HCO3 23.7, Arterial Blood Oxygen Saturation 94.6L, Arterial Blood Base Excess 0.1, Kvng Test Positive Height (Feet): 5 Height (Inches): 6.00 Weight (Pounds): 153 General Appearance: no apparent distress EENT: other - vented Cardiovascular: normal rate Respiratory/Chest: decreased breath sounds Abdomen: distended Bienvenido Gonzalez MD Jan 27, 2019 11:35
--- NOTE | 2019-01-27 11:49 | Diagnostic Imaging Report ---
Indication: Dyspnea Comparison: 01/26/2019 A single view chest radiograph was obtained. Findings: Extensive infiltrates bilaterally. Some degree of a superimposed interstitial edema has improved since the last exam. Endotracheal tube and NG tube remain in satisfactory in position. IMPRESSION: Improved pulmonary edema. Extensive bilateral infiltrates noted currently
--- NOTE | 2019-01-27 12:10 | NUR ---
NURSE NOTES: Turned and repositioned. VSS. RT titrated Fio2 to 35%, Spo2 98%, secretions are moderate and thick.
[2019-01-27] MEDS: LORazepam Inj 2mg/ml 1ml IV PRN ×2 (13:24→20:25)
--- NOTE | 2019-01-27 14:20 | NUR ---
NURSE NOTES: Oral care done. Kept dry and clean. Turned and repositioned. No signs of distress.
[2019-01-27] MEDS ORDERED: NS 275ml ONE ×3 (15:51→16:07)
--- NOTE | 2019-01-27 16:04 | Surgery Progress Note ---
Surgery Progress Note Subjective Additional Comments leukocytosis trending down labs improving exam stable ill appearing in ICU Objective Last 24 Hour Vital Signs Date Time Temp Pulse Resp B/P (MAP) Pulse Ox O2 Delivery O2 Flow Rate FiO2 01/27/19 14:40 78 24 30 01/27/19 13:02 78 23 35 01/27/19 13:00 81 21 106/66 (79) 95 01/27/19 12:00 30 01/27/19 12:00 Mechanical Ventilator 01/27/19 12:00 73 22 106/66 (79) 98 01/27/19 11:19 78 24 35 01/27/19 11:00 79 24 117/59 (78) 95 01/27/19 10:00 80 23 102/63 (76) 96 01/27/19 09:21 97 01/27/19 09:11 69 24 01/27/19 09:00 71 24 97/53 (68) 98 01/27/19 08:30 64 20 107/54 (71) 98 01/27/19 08:00 98.6 61 22 100/52 (68) 98 01/27/19 08:00 Mechanical Ventilator 01/27/19 08:00 40 01/27/19 07:30 70 19 103/55 (71) 98 01/27/19 07:00 66 17 107/75 (86) 96 01/27/19 07:00 78 22 40 01/27/19 07:00 66 17 107/75 (86) 96 01/27/19 06:00 75 26 109/66 (80) 99 01/27/19 05:02 82 22 40 01/27/19 05:00 78 19 110/76 (87) 98 01/27/19 04:00 Mechanical Ventilator 01/27/19 04:00 98.2 78 15 110/74 (86) 97 01/27/19 04:00 40 01/27/19 03:20 83 01/27/19 03:06 82 25 40 01/27/19 03:00 78 36 107/72 (84) 96 01/27/19 02:30 96 18 122/73 (89) 93 01/27/19 02:00 77 21 99/36 (57) 96 01/27/19 01:30 84 22 102/57 (72) 98 01/27/19 01:26 84 18 104/43 (63) 97 01/27/19 01:00 82 20 73/57 (62) 95 01/27/19 00:39 79 23 40 01/27/19 00:00 Mechanical Ventilator 01/27/19 00:00 98.2 76 21 94/49 (64) 94 01/27/19 00:00 40 01/26/19 23:38 86 01/26/19 23:00 80 20 102/53 (69) 96 01/26/19 22:55 81 27 40 01/26/19 22:00 79 20 120/77 (91) 95 01/26/19 21:00 85 23 101/63 (76) 97 01/26/19 20:52 94 24 40 01/26/19 20:04 89 01/26/19 20:00 Mechanical Ventilator 01/26/19 20:00 98.6 93 22 101/59 (73) 96 01/26/19 20:00 40 01/26/19 19:00 90 23 107/90 (96) 98 01/26/19 18:35 92 26 40 01/26/19 18:00 91 23 106/69 (81) 96 01/26/19 17:30 89 24 114/66 (82) 96 01/26/19 17:00 87 18 94/58 (70) 95 01/26/19 16:32 91 26 40 01/26/19 16:30 94 25 110/61 (77) 93 I&O Intake and Output 01/26/19 01/27/19 19:00 07:00 Intake Total 1453.0 ml 835 ml Output Total 2700 ml 755 ml Balance -1247.0 ml 80 ml Free Water 120 ml IV Total 1093.0 ml 535 ml Tube Feeding 240 ml 240 ml Other 60 ml Output Urine Total 2700 ml 755 ml Dressing: dry Wound: clean Cardiovascular: RSR Respiratory: decreased breath sounds Abdomen: soft, non-distended, decreased bowel sounds Extremities: no tenderness, no cyanosis, other Laboratory Tests Test 01/27/19 04:00 01/27/19 09:54 White Blood Count 14.2 K/UL (4.8-10.8) H Red Blood Count 3.12 M/UL (4.70-6.10) L Hemoglobin 9.4 G/DL (14.2-18.0) L Hematocrit 28.8 % (42.0-52.0) L Mean Corpuscular Volume 93 FL (80-99) Mean Corpuscular Hemoglobin 30.3 PG (27.0-31.0) Mean Corpuscular Hemoglobin Concent 32.7 G/DL (32.0-36.0) Red Cell Distribution Width 13.6 % (11.6-14.8) Platelet Count 196 K/UL (150-450) Mean Platelet Volume 5.9 FL (6.5-10.1) L Neutrophils (%) (Auto) 82.7 % (45.0-75.0) H Lymphocytes (%) (Auto) 13.3 % (20.0-45.0) L Monocytes (%) (Auto) 3.8 % (1.0-10.0) Eosinophils (%) (Auto) 0.0 % (0.0-3.0) Basophils (%) (Auto) 0.1 % (0.0-2.0) Sodium Level 141 MMOL/L (136-145) Potassium Level 3.1 MMOL/L (3.5-5.1) L Chloride Level 107 MMOL/L (98-107) Carbon Dioxide Level 28 MMOL/L (21-32) Anion Gap 6 mmol/L (5-15) Blood Urea Nitrogen 19 mg/dL (7-18) H Creatinine 1.5 MG/DL (0.55-1.30) H Estimat Glomerular Filtration Rate 46.5 mL/min (>60) Glucose Level 129 MG/DL (74-106) H Calcium Level 7.4 MG/DL (8.5-10.1) L Phosphorus Level 3.0 MG/DL (2.5-4.9) Magnesium Level 2.1 MG/DL (1.8-2.4) Total Bilirubin 0.3 MG/DL (0.2-1.0) Aspartate Amino Transf (AST/SGOT) 73 U/L (15-37) H Alanine Aminotransferase (ALT/SGPT) 46 U/L (12-78) Alkaline Phosphatase 97 U/L (46-116) Troponin I 0.333 ng/mL (0.000-0.056) C-Reactive Protein, Quantitative 10.0 mg/dL (0.00-0.90) H Pro-B-Type Natriuretic Peptide > 39934 pg/mL (0-125) H Total Protein 6.0 G/DL (6.4-8.2) L Albumin 1.6 G/DL (3.4-5.0) L Globulin 4.4 g/dL Albumin/Globulin Ratio 0.4 (1.0-2.7) L Triglycerides Level 51 MG/DL (30-150) Cholesterol Level 95 MG/DL (< 200) LDL Cholesterol 53 mg/dL (<100) HDL Cholesterol 31 MG/DL (40-60) L Cholesterol/HDL Ratio 3.1 (3.3-4.4) L Thyroid Stimulating Hormone (TSH) 2.057 uiU/mL (0.358-3.740) Random Vancomycin Level 9.7 ug/mL Arterial Blood pH 7.453 (7.350-7.450) Arterial Blood Partial Pressure CO2 34.7 mmHg (35.0-45.0) L Arterial Blood Partial Pressure O2 75.0 mmHg (75.0-100.0) Arterial Blood HCO3 23.7 mmol/L (22.0-26.0) Arterial Blood Oxygen Saturation 94.6 % (95-100) L Arterial Blood Base Excess 0.1 (-2-2) Kvng Test Positive Plan Problems: (1) Sepsis Assessment & Plan: low grade fever t max 100 tachycardic leukocytosis trending down lactic acidosis resolved ill appearing in ICU on vent support -IV fluids resuscitation -IV abx as per ID -trend labs -CXR noted -cont tube feeds -will follow with recs thank you (2) Septic shock (3) Wound, open Assessment & Plan: Patient presented on admission with multiple pressure injuries being identified. Non-blanching erythema without induration noted to sacrum ,Right and Left buttocks. Scattered areas that are darker and maroon in color noted within base of wound. Scrotum is also erythematous. Unstageable pressure injury noted to Left heel. Base of wound is 100% necrotic but soft. Erythematous margins with surrounding non-blanching erythema.(L)3.2cm x (W)3cm. no drainage Right heel is boggy with non-blanching erythema.. Keloid scar noted distal R tibia. Partial thickness ulcer noted to dorsal R foot. Base of wound is moist and viable. Small amt serous exudate noted. Scattered small dry scabs noted to dorsal R foot. Tx.Plan: Swab Dorsal R foot and R heel with Betadine. Cover with Optifoam drsg. Change every 3 days and prn. Apply Moisture Barrier Paste to buttocks. Cover sacrum with Optifoam drsg. Change every 3 days and prn. Apply Cavilon Skin Barrier to L heel.Cover with Optifoam drsg. Change every 7 days and prn. APM/JELLY mattress. Reposition at least every 2hours or as tolerated. Off-load heels with pillow. Nutritional Optimization Will monitor while in critical condition DAILY ESTIMATED NEEDS: Needs based on Critical care, sepsis, wounds 69kg 22-30 kcals/kg 0556-4411 total kcals 1.25-2 g protein/kg 86-138 g total protein 25-30 mL/kg 7616-5602 total fluid mLs NUTRITION DIAGNOSIS: Increased kcal and pro needs r/t sepsis, wound healing, and underweight status as evidenced by pt w respiratory distress now intubated, critically elev WBC (*29.7), elev BG (200's), w/ multiple wounds (refer to eval), pt is @88% if [place] Body Weight. CURRENT TF: Glucerna 1.2 @30ml ENTERAL NUTRITION RECOMMENDATIONS: VITAL AF 1.2 @60ml/hr x24 hrs to provide 1440ml, 1728 kcal, 108g pro, 1168ml free H2O - WITH HEMODYNAMIC STABILITY, rec TF change to VITAL 1.2 to better meet est needs. Start @20ml/hr for 6 hrs. Advance as tolerated 10ml/hr q4-6 hrs to goal. - Flush per HOB over 30 degrees If pt remains on pressor support, rec trophic feeds of Vital 1.2 @5-10ml/hr to maintain gut integrity. ------ ADDITIONAL RECOMMENDATIONS: 1) Per SNF: HT 71 inches, 152 lbs (69.1kg) 2) Wound care: Add DANIELA in 4oz water BID via OGT + VIT C 250mg BID (f/up w/ WC specialist) 3) Monitor lytes daily, replete as needed 4) Daily calibrated bed scale wts Mauricio Anne Jan 27, 2019 16:04
[2019-01-27] MEDS ORDERED: Tubing IV Secondary IV ONE (16:06)
--- NOTE | 2019-01-27 16:29 | Infectious Diseases Prog Note ---
Assessment/Plan Assessment/Plan 68yo gentleman with PMH below presents with fever(100.1 is highest recorded in transfer packet) and worsened congestion from SNF. In the ED, pt was placed on oxygen then BiPAP but ultimately intubated. ID consulted for antimicrobial recommendation. Tmax 100.1 at retirement Leukocytosis, uptrending, now improving. no steroids. Lactic acidosis, fluctuating Shock on levophed, sepsis vs cardiogenic Likely PNA COPD? CHF? thick secretions per nurse flu swab negative 01/24 CXR: Extensive opacities within upper lobes demonstrated. In addition there is generalized interstitial densities throughout both lung craig. 01/25 CXR: Bilateral infiltrates appear fairly extensive but unchanged. TTE with EF 30-35% 01/25 sputum cx: P 01/25 urine legionella ag: P Possible UTI? new mcmahon placed in ED 01/25 UA 15-20 WBC 01/25 Ucx: P Renal US: Nonobstructive stones in the left kidney demonstrated. Bilateral renal cysts. Limited evaluation due to body habitus. r/o bacteremia 01/25 BCx: P No diarrhea HIV test negative MRSA screen positive RLE skin graft b/l LE heel pressure ulcers and sacral ulcer Tobacco abuse COPD HTN Kidney cancer OA CKD Anemia Schizophrenia PVD CHF Plan: continue ertapenem, amikacin, vancomycin #3 while pending cultures SP cefepime #1 SP flagyl #1 SP vancomycin #1 f/u Ucx f/u BCx f/u sputum cx urine legionella Thank you for this consult. [facility] will continue to follow the patient with you. Subjective Allergies: Coded Allergies: No Known Allergies (Unverified , 01/24/19) Subjective Afebrile. off levophed. improved secretion. failed weaning. no diarrhea wbc better Objective Vital Signs Last 24 Hour Vital Signs Date Time Temp Pulse Resp B/P (MAP) Pulse Ox O2 Delivery O2 Flow Rate FiO2 01/27/19 16:00 Mechanical Ventilator 01/27/19 16:00 74 01/27/19 16:00 30 01/27/19 15:00 76 27 116/56 (76) 95 01/27/19 14:40 78 24 30 01/27/19 14:00 76 27 106/66 (79) 95 01/27/19 13:02 78 23 35 01/27/19 13:00 81 21 106/66 (79) 95 01/27/19 12:00 30 01/27/19 12:00 Mechanical Ventilator 01/27/19 12:00 73 22 106/66 (79) 98 01/27/19 12:00 76 01/27/19 11:19 78 24 35 01/27/19 11:00 79 24 117/59 (78) 95 01/27/19 10:00 80 23 102/63 (76) 96 01/27/19 09:21 97 01/27/19 09:11 69 24 01/27/19 09:00 71 24 97/53 (68) 98 01/27/19 08:30 64 20 107/54 (71) 98 01/27/19 08:00 98.6 61 22 100/52 (68) 98 01/27/19 08:00 75 01/27/19 08:00 Mechanical Ventilator 01/27/19 08:00 40 01/27/19 07:30 70 19 103/55 (71) 98 01/27/19 07:00 66 17 107/75 (86) 96 01/27/19 07:00 78 22 40 01/27/19 07:00 66 17 107/75 (86) 96 01/27/19 06:00 75 26 109/66 (80) 99 01/27/19 05:02 82 22 40 01/27/19 05:00 78 19 110/76 (87) 98 01/27/19 04:00 Mechanical Ventilator 01/27/19 04:00 98.2 78 15 110/74 (86) 97 01/27/19 04:00 40 01/27/19 03:20 83 01/27/19 03:06 82 25 40 01/27/19 03:00 78 36 107/72 (84) 96 01/27/19 02:30 96 18 122/73 (89) 93 01/27/19 02:00 77 21 99/36 (57) 96 01/27/19 01:30 84 22 102/57 (72) 98 01/27/19 01:26 84 18 104/43 (63) 97 01/27/19 01:00 82 20 73/57 (62) 95 01/27/19 00:39 79 23 40 01/27/19 00:00 Mechanical Ventilator 01/27/19 00:00 98.2 76 21 94/49 (64) 94 01/27/19 00:00 40 01/26/19 23:38 86 01/26/19 23:00 80 20 102/53 (69) 96 01/26/19 22:55 81 27 40 01/26/19 22:00 79 20 120/77 (91) 95 01/26/19 21:00 85 23 101/63 (76) 97 01/26/19 20:52 94 24 40 01/26/19 20:04 89 01/26/19 20:00 Mechanical Ventilator 01/26/19 20:00 98.6 93 22 101/59 (73) 96 01/26/19 20:00 40 01/26/19 19:00 90 23 107/90 (96) 98 01/26/19 18:35 92 26 40 01/26/19 18:00 91 23 106/69 (81) 96 01/26/19 17:30 89 24 114/66 (82) 96 01/26/19 17:00 87 18 94/58 (70) 95 01/26/19 16:32 91 26 40 01/26/19 16:30 94 25 110/61 (77) 93 Height (Feet): 5 Height (Inches): 6.00 Weight (Pounds): 153 Objective Gen: NAD HEENT: anicteric sclera. ETT CV: RRR. Resp: coarse. equal chest rise. Abd: soft. normoactive Bs+ Neuro: sedated Skin: RLE skin graft Microbiology Date/Time Source Procedure Growth Status 01/25/19 03:00 Sputum Gram Stain - Final Resulted 01/25/19 03:00 Sputum Sputum Culture Pending Resulted 01/25/19 10:30 Urine,Clean Catch Urine Culture - Preliminary NO GROWTH Resulted Laboratory Tests Test 01/27/19 04:00 01/27/19 09:54 White Blood Count 14.2 K/UL (4.8-10.8) H Red Blood Count 3.12 M/UL (4.70-6.10) L Hemoglobin 9.4 G/DL (14.2-18.0) L Hematocrit 28.8 % (42.0-52.0) L Mean Corpuscular Volume 93 FL (80-99) Mean Corpuscular Hemoglobin 30.3 PG (27.0-31.0) Mean Corpuscular Hemoglobin Concent 32.7 G/DL (32.0-36.0) Red Cell Distribution Width 13.6 % (11.6-14.8) Platelet Count 196 K/UL (150-450) Mean Platelet Volume 5.9 FL (6.5-10.1) L Neutrophils (%) (Auto) 82.7 % (45.0-75.0) H Lymphocytes (%) (Auto) 13.3 % (20.0-45.0) L Monocytes (%) (Auto) 3.8 % (1.0-10.0) Eosinophils (%) (Auto) 0.0 % (0.0-3.0) Basophils (%) (Auto) 0.1 % (0.0-2.0) Sodium Level 141 MMOL/L (136-145) Potassium Level 3.1 MMOL/L (3.5-5.1) L Chloride Level 107 MMOL/L (98-107) Carbon Dioxide Level 28 MMOL/L (21-32) Anion Gap 6 mmol/L (5-15) Blood Urea Nitrogen 19 mg/dL (7-18) H Creatinine 1.5 MG/DL (0.55-1.30) H Estimat Glomerular Filtration Rate 46.5 mL/min (>60) Glucose Level 129 MG/DL (74-106) H Calcium Level 7.4 MG/DL (8.5-10.1) L Phosphorus Level 3.0 MG/DL (2.5-4.9) Magnesium Level 2.1 MG/DL (1.8-2.4) Total Bilirubin 0.3 MG/DL (0.2-1.0) Aspartate Amino Transf (AST/SGOT) 73 U/L (15-37) H Alanine Aminotransferase (ALT/SGPT) 46 U/L (12-78) Alkaline Phosphatase 97 U/L (46-116) Troponin I 0.333 ng/mL (0.000-0.056) C-Reactive Protein, Quantitative 10.0 mg/dL (0.00-0.90) H Pro-B-Type Natriuretic Peptide > 09636 pg/mL (0-125) H Total Protein 6.0 G/DL (6.4-8.2) L Albumin 1.6 G/DL (3.4-5.0) L Globulin 4.4 g/dL Albumin/Globulin Ratio 0.4 (1.0-2.7) L Triglycerides Level 51 MG/DL (30-150) Cholesterol Level 95 MG/DL (< 200) LDL Cholesterol 53 mg/dL (<100) HDL Cholesterol 31 MG/DL (40-60) L Cholesterol/HDL Ratio 3.1 (3.3-4.4) L Thyroid Stimulating Hormone (TSH) 2.057 uiU/mL (0.358-3.740) Random Vancomycin Level 9.7 ug/mL Arterial Blood pH 7.453 (7.350-7.450) Arterial Blood Partial Pressure CO2 34.7 mmHg (35.0-45.0) L Arterial Blood Partial Pressure O2 75.0 mmHg (75.0-100.0) Arterial Blood HCO3 23.7 mmol/L (22.0-26.0) Arterial Blood Oxygen Saturation 94.6 % (95-100) L Arterial Blood Base Excess 0.1 (-2-2) Kvng Test Positive Current Medications Medications (Trade) Dose Ordered Sig/Ricardo Route PRN Reason Start Time Stop Time Status Last Admin Dose Admin Acetaminophen (Tylenol) 650 mg Q4H PRN ORAL fever 01/24/19 20:00 02/23/19 19:59 Albuterol/ Ipratropium (Albuterol/ Ipratropium) 3 ml Q4H PRN HHN Shortness of Breath 01/24/19 20:00 01/29/19 19:59 Amikacin Protocol (Amikacin pharmacy to dose) 1 ea DAILY PRN MISC PER RX PROTOCOL 01/25/19 20:45 02/24/19 20:44 Amikacin Sulfate 950 mg/Sodium Chloride 113.8 ml @ 113.8 mls/ hr Q36H IV 01/26/19 10:00 02/02/19 09:59 01/26/19 10:29 Ascorbic Acid (Vitamin C) 250 mg TWICE A DAY ORAL 01/27/19 18:00 02/26/19 17:59 Chlorhexidine Gluconate (Roseanna-Hex 2%) 1 applic DAILY@2000 TOPIC 01/25/19 20:00 02/24/19 19:59 01/26/19 19:46 Dextrose (Dextrose 50%) 25 ml Q30M PRN IV Hypoglycemia 01/25/19 19:00 02/24/19 18:59 Dextrose (Dextrose 50%) 50 ml Q30M PRN IV Hypoglycemia 01/25/19 19:00 02/24/19 18:59 Ertapenem 1 gm/ Sodium Chloride 55 ml @ 110 mls/hr Q24H IV 01/24/19 23:00 01/29/19 22:59 01/26/19 22:34 Heparin Sodium (Porcine) (Heparin 5000 units/ml) 5,000 units EVERY 12 HOURS SUBQ 01/24/19 21:00 02/23/19 20:59 01/27/19 08:12 Hydrocortisone (Solu-CORTEF) 100 mg EVERY 8 HOURS IV 01/25/19 11:00 02/24/19 10:59 01/27/19 13:06 Insulin Aspart (NovoLOG) EVERY 6 HOURS SUBQ 01/26/19 00:00 02/25/19 00:00 01/27/19 13:06 Lorazepam (Ativan 2mg/ml 1ml) 2 mg Q2H PRN IV For Anxiety 01/24/19 20:00 01/31/19 19:59 01/27/19 13:24 Morphine Sulfate (Morphine Sulfate) 4 mg Q4H PRN IVP Severe Pain (Pain Scale 7-10) 01/24/19 20:00 01/31/19 19:59 Norepinephrine Bitartrate 8 mg/ Dextrose 500 ml @ 0 mls/hr Q24H IV 01/24/19 21:00 02/23/19 20:14 01/26/19 11:00 Ondansetron HCl (Zofran) 4 mg Q6H PRN IVP Nausea & Vomiting 01/24/19 20:00 02/23/19 19:59 Pantoprazole (Protonix) 40 mg DAILY IVP 01/25/19 09:00 02/24/19 08:59 01/27/19 08:11 Polyethylene Glycol (Miralax) 17 gm DAILYPRN PRN ORAL Constipation 01/24/19 20:00 02/23/19 19:59 01/26/19 19:46 Potassium Chloride (K-Dur) 40 meq TWICE A DAY NG 01/27/19 11:45 02/26/19 11:44 01/27/19 13:24 Vancomycin HCl (Vanco rx to dose) 1 ea DAILY PRN MISC . 01/25/19 06:15 02/24/19 06:14 Pili Lenz MD Jan 27, 2019 16:29
--- NOTE | 2019-01-27 16:35 | NUR ---
NURSE NOTES: No signs of distress noted. Turned and repositioned. Afebrile. IVF infusing well.
[2019-01-27] MEDS: Ascorbic Acid 500mg tab ORAL SCH (17:59)
[2019-01-27] MEDS ORDERED: DULCOLAX10 MG RC (18:40)
[2019-01-27] MEDS ORDERED: LACTULOSE20 GM/301 ORAL (18:40)
[2019-01-27] MEDS ORDERED: DOCUSATE SODIU100 MG ORAL (18:40)
[2019-01-27] MEDS ORDERED: FLEET ENEMA133 ML RECTAL (18:40)
[2019-01-27] MEDS ORDERED: MILK OF MA400 MG/51 ORAL (18:43)
[2019-01-27] MEDS ORDERED: NORCO 5-325 TA1 EACH ORAL (18:43)
[2019-01-27] MEDS ORDERED: MULTIVITAMINS1 EAC8 ORAL (18:43)
[2019-01-27] MEDS ORDERED: VITAMIN B-121000 MCG PO (18:52)
--- NOTE | 2019-01-27 18:57 | NUR ---
NURSE NOTES: Turned and repositioned. Oral care done. No signs of distress.
[2019-01-27] MEDS ORDERED: SENNA8.6 M2 PO (18:58)
[2019-01-27] MEDS ORDERED: SEROQUEL100 MG ORAL (19:00)
[2019-01-27] MEDS ORDERED: QUETIAPINE FUM200 MG ORAL (19:00)
[2019-01-27] MEDS ORDERED: ACETAMINOPHEN325 M1 ORAL (19:04)
--- NOTE | 2019-01-27 19:14 | NUR ---
HAND-OFF: Report given to Bhavani Castellanos RN.
--- NOTE | 2019-01-27 19:18 | Cardiology Progress Note ---
Assessment/Plan Assessment/Plan 1. Septic syndrome. 2. Respiratory failure requiring intubation. 3. Pneumonia. 4. Schizophrenia and dementia. 5. Urinary tract infection. 6. Renal failure. 7. Hypoalbuminemia/malnutrition. 8. Sinus tachycardia secondary to above. 9. Left ventricular systolic dysfunction.\ cxr reviewed rernal fxn improved tele sinus off pressor will consider acei in futuer if renal fxn improves and bp remain strable Subjective ROS Limited/Unobtainable: Yes Objective Last 24 Hour Vital Signs Date Time Temp Pulse Resp B/P (MAP) Pulse Ox O2 Delivery O2 Flow Rate FiO2 01/27/19 19:01 79 23 30 01/27/19 19:00 89 24 113/63 (80) 97 01/27/19 18:00 84 24 104/65 (78) 94 01/27/19 17:00 98.9 76 24 112/60 (77) 95 01/27/19 16:40 75 22 30 01/27/19 16:00 Mechanical Ventilator 01/27/19 16:00 74 01/27/19 16:00 77 24 108/59 (75) 95 01/27/19 16:00 30 01/27/19 15:00 76 27 116/56 (76) 95 01/27/19 14:40 78 24 30 01/27/19 14:00 76 27 106/66 (79) 95 01/27/19 13:02 78 23 35 01/27/19 13:00 81 21 106/66 (79) 95 01/27/19 12:00 30 01/27/19 12:00 Mechanical Ventilator 01/27/19 12:00 73 22 106/66 (79) 98 01/27/19 12:00 76 01/27/19 11:19 78 24 35 01/27/19 11:00 79 24 117/59 (78) 95 01/27/19 10:00 80 23 102/63 (76) 96 01/27/19 09:21 97 01/27/19 09:11 69 24 01/27/19 09:00 71 24 97/53 (68) 98 01/27/19 08:30 64 20 107/54 (71) 98 01/27/19 08:00 98.6 61 22 100/52 (68) 98 01/27/19 08:00 75 01/27/19 08:00 Mechanical Ventilator 01/27/19 08:00 40 01/27/19 07:30 70 19 103/55 (71) 98 01/27/19 07:00 66 17 107/75 (86) 96 01/27/19 07:00 78 22 40 01/27/19 07:00 66 17 107/75 (86) 96 01/27/19 06:00 75 26 109/66 (80) 99 01/27/19 05:02 82 22 40 01/27/19 05:00 78 19 110/76 (87) 98 01/27/19 04:00 Mechanical Ventilator 01/27/19 04:00 98.2 78 15 110/74 (86) 97 01/27/19 04:00 40 01/27/19 03:20 83 01/27/19 03:06 82 25 40 01/27/19 03:00 78 36 107/72 (84) 96 01/27/19 02:30 96 18 122/73 (89) 93 01/27/19 02:00 77 21 99/36 (57) 96 01/27/19 01:30 84 22 102/57 (72) 98 01/27/19 01:26 84 18 104/43 (63) 97 01/27/19 01:00 82 20 73/57 (62) 95 01/27/19 00:39 79 23 40 01/27/19 00:00 Mechanical Ventilator 01/27/19 00:00 98.2 76 21 94/49 (64) 94 01/27/19 00:00 40 01/26/19 23:38 86 01/26/19 23:00 80 20 102/53 (69) 96 01/26/19 22:55 81 27 40 01/26/19 22:00 79 20 120/77 (91) 95 01/26/19 21:00 85 23 101/63 (76) 97 01/26/19 20:52 94 24 40 01/26/19 20:04 89 01/26/19 20:00 Mechanical Ventilator 01/26/19 20:00 98.6 93 22 101/59 (73) 96 01/26/19 20:00 40 General Appearance: on vent, patient on isolation Cardiovascular: normal rate Respiratory/Chest: rhonchi - bilaterally - min Abdomen: normal bowel sounds, non tender, soft Extremities: no swelling Intake and Output 01/26/19 01/27/19 19:00 07:00 Intake Total 1453.0 ml 835 ml Output Total 2700 ml 755 ml Balance -1247.0 ml 80 ml Free Water 120 ml IV Total 1093.0 ml 535 ml Tube Feeding 240 ml 240 ml Other 60 ml Output Urine Total 2700 ml 755 ml Laboratory Tests Test 01/27/19 04:00 01/27/19 09:54 White Blood Count 14.2 K/UL (4.8-10.8) H Red Blood Count 3.12 M/UL (4.70-6.10) L Hemoglobin 9.4 G/DL (14.2-18.0) L Hematocrit 28.8 % (42.0-52.0) L Mean Corpuscular Volume 93 FL (80-99) Mean Corpuscular Hemoglobin 30.3 PG (27.0-31.0) Mean Corpuscular Hemoglobin Concent 32.7 G/DL (32.0-36.0) Red Cell Distribution Width 13.6 % (11.6-14.8) Platelet Count 196 K/UL (150-450) Mean Platelet Volume 5.9 FL (6.5-10.1) L Neutrophils (%) (Auto) 82.7 % (45.0-75.0) H Lymphocytes (%) (Auto) 13.3 % (20.0-45.0) L Monocytes (%) (Auto) 3.8 % (1.0-10.0) Eosinophils (%) (Auto) 0.0 % (0.0-3.0) Basophils (%) (Auto) 0.1 % (0.0-2.0) Sodium Level 141 MMOL/L (136-145) Potassium Level 3.1 MMOL/L (3.5-5.1) L Chloride Level 107 MMOL/L (98-107) Carbon Dioxide Level 28 MMOL/L (21-32) Anion Gap 6 mmol/L (5-15) Blood Urea Nitrogen 19 mg/dL (7-18) H Creatinine 1.5 MG/DL (0.55-1.30) H Estimat Glomerular Filtration Rate 46.5 mL/min (>60) Glucose Level 129 MG/DL (74-106) H Calcium Level 7.4 MG/DL (8.5-10.1) L Phosphorus Level 3.0 MG/DL (2.5-4.9) Magnesium Level 2.1 MG/DL (1.8-2.4) Total Bilirubin 0.3 MG/DL (0.2-1.0) Aspartate Amino Transf (AST/SGOT) 73 U/L (15-37) H Alanine Aminotransferase (ALT/SGPT) 46 U/L (12-78) Alkaline Phosphatase 97 U/L (46-116) Troponin I 0.333 ng/mL (0.000-0.056) C-Reactive Protein, Quantitative 10.0 mg/dL (0.00-0.90) H Pro-B-Type Natriuretic Peptide > 66904 pg/mL (0-125) H Total Protein 6.0 G/DL (6.4-8.2) L Albumin 1.6 G/DL (3.4-5.0) L Globulin 4.4 g/dL Albumin/Globulin Ratio 0.4 (1.0-2.7) L Triglycerides Level 51 MG/DL (30-150) Cholesterol Level 95 MG/DL (< 200) LDL Cholesterol 53 mg/dL (<100) HDL Cholesterol 31 MG/DL (40-60) L Cholesterol/HDL Ratio 3.1 (3.3-4.4) L Thyroid Stimulating Hormone (TSH) 2.057 uiU/mL (0.358-3.740) Random Vancomycin Level 9.7 ug/mL Arterial Blood pH 7.453 (7.350-7.450) Arterial Blood Partial Pressure CO2 34.7 mmHg (35.0-45.0) L Arterial Blood Partial Pressure O2 75.0 mmHg (75.0-100.0) Arterial Blood HCO3 23.7 mmol/L (22.0-26.0) Arterial Blood Oxygen Saturation 94.6 % (95-100) L Arterial Blood Base Excess 0.1 (-2-2) Kvng Test Positive Microbiology Date/Time Source Procedure Growth Status 01/25/19 03:00 Sputum Gram Stain - Final Resulted 01/25/19 03:00 Sputum Sputum Culture Pending Resulted 01/25/19 10:30 Urine,Clean Catch Urine Culture - Preliminary NO GROWTH Resulted Sammy Helm MD Jan 27, 2019 19:18
--- NOTE | 2019-01-27 19:40 | NUR ---
NURSE NOTES: PATIENT IRRITABLE IN BED, ON ETT TO VENT, AC22/TV500/FIO2 30%/PEEP5, O2 SATURATION OVER 100% NOTED, HEART RATE 80'S/MIN SR NOTED, ABDOMEN SOFT, NON TENDER, NO BM NOTED, OGT INTACT AND PATENT, ONGOING GLUCERNA 1.2 AT 45ML/HR, NO RESIDUE NOTED, NO N/V STATUS, F/C INTACT AND PATENT, YELLOW URINE OUTED, TLC TO RIGHT FEMORAL, INTACT AND PATENT, 2 POINT SOFT RESTRAINTS FOR SAFETY, ON P200 BED, LOCKED BED, KEPT HOB 30 DEGREES AND BED ALARM, PROVIDED CALL LIGHT WITHIN REACH, WILL CONTINUE TO MONITOR.
[2019-01-27] MEDS: Dyna-Hex 2% Top Sol 2oz TOPIC SCH (20:01)
[2019-01-27] MEDS: Norepinephrine Bitartrate 8 MG in D5W 500ml 492 ML IV SCH (21:00)
--- NOTE | 2019-01-27 21:28 | NUR ---
NURSE NOTES: GIVEN ATIVAN 2MG BY IVP SLOWLY FOR ANXIOUS AND AGITATION AT 2024PM. PATIENT CALM STATUS AT THIS TIME.
--- NOTE | 2019-01-27 21:50 | NUR ---
NURSE NOTES: PENDING AMIKACIN TROUGH LEVEL AT THIS TIME.
[2019-01-27] MEDS: Amikacin 950 MG in NS 110 ML IV SCH (22:10)
[2019-01-27] MEDS: Ertapenem 1 GM in NS 55 ML IV SCH (22:44)
[2019-01-28] VITALS (35 sets, daily range): BP systolic 90–146; BP diastolic 49–94
--- NOTE | 2019-01-28 | NUR ---
NURSE NOTES: PATIENT SLEEPING ON AND OFF, TRIED TO TOUCH ENDOTUBE WHEN RELEASED RESTRAINTS, SECURED RESTRAINTS, WILL CONTINUE TO MONITOR.
--- NOTE | 2019-01-28 02:00 | NUR ---
NURSE NOTES: PATIENT ASLEEP STATUS, REPOSITIONED, NO RESISTANCE TO CARE, HR 50'S AGUILAR CARDIA NOTED, WILL CONTINUE TO MONITOR.
--- NOTE | 2019-01-28 03:40 | NUR ---
NURSE NOTES: MORNING CARE AND ORAL CARE WAS DONE, NO BOWEL MOVEMENT STATUS.
[2019-01-28] MEDS: Hydrocortisone 100mg Inj IV SCH ×3 (05:35→21:39)
[2019-01-28] MEDS: NovoLOG Insulin Flexpen SUBQ SCH ×4 (05:35→23:42)
--- NOTE | 2019-01-28 05:45 | NUR ---
NURSE NOTES: HEAT RATE 50'S/MIN SB NOTED, NO PAIN OR DISTRESS NOTED.
[2019-01-28 05:57] LABS: BASOPHILS % (AUTO) 0.3 % (0.0-2.0); HEMATOCRIT 30.1 % (42.0-52.0); HEMOGLOBIN 9.8 G/DL (14.2-18.0); LYMPHOCYTES % (AUTO) 13.2 % (20.0-45.0); MEAN CORPUSCULAR VOLUME 93 FL (80-99); MONOCYTES % (AUTO) 5.8 % (1.0-10.0); NEUTROPHILS % (AUTO) 80.8 % (45.0-75.0); PLATELET COUNT 202 K/UL (150-450); RED BLOOD COUNT 3.23 M/UL (4.70-6.10); RED CELL DISTRIBUTION WIDTH 13.6 % (11.6-14.8); WHITE BLOOD COUNT 12.6 K/UL (4.8-10.8)
[2019-01-28 06:25] LABS: ALANINE AMINOTRANSFERASE 44 U/L (12-78); ALBUMIN 1.7 G/DL (3.4-5.0); ALBUMIN/GLOBULIN RATIO 0.4 (1.0-2.7); ALKALINE PHOSPHATASE 99 U/L (46-116); ANION GAP 3 mmol/L (5-15); ASPARTATE AMINO TRANSFERASE 52 U/L (15-37); BILIRUBIN,TOTAL 0.2 MG/DL (0.2-1.0); BLOOD UREA NITROGEN 25 mg/dL (7-18); CALCIUM 7.5 MG/DL (8.5-10.1); CARBON DIOXIDE 31 MMOL/L (21-32); CHLORIDE 109 MMOL/L (98-107); CREATININE 1.5 MG/DL (0.55-1.30); PHOSPHORUS 2.4 MG/DL (2.5-4.9); POTASSIUM 4.3 MMOL/L (3.5-5.1); SODIUM 143 MMOL/L (136-145)
--- NOTE | 2019-01-28 07:15 | NUR ---
HAND-OFF: Report given to EUGENIA LIRA.
--- NOTE | 2019-01-28 07:17 | NUR ---
RESPIRATORY NOTES: Weaning trial started on Patient at 0717, however Patient did not pass NIF or VC. Patients NIF would not trigger, VC 175mL, Spontaneous VT 412mL, Spontaneous Rate 19, RSBI 45, VE 8. Will continue to have patient spontaneously breath and will draw ABG within the hour.
--- NOTE | 2019-01-28 07:25 | NUR ---
RESPIRATORY NOTES: Received Patient on ACVC 22, VT 500, FIO2 30%, Peep +5. Patient intubated with a 7.5 ETT at 25 cm at the lip. Patient currently in bed sleeping. Suctioned minimal clear secretions from ETT. Vent plugged into red outlet. Alarms are on and audible. Will continue to monitor.
--- NOTE | 2019-01-28 07:30 | NUR ---
RESPIRATORY NOTES: Patient failed weaning. VT dropped to below <200mL. RN aware. Placed back onto previous ACVC settings.
[2019-01-28] MEDS ORDERED: Vancomycin 1gm/D5W 275ml IVPB ONE ×2 (08:00)
--- NOTE | 2019-01-28 08:00 | NUR ---
NURSE NOTES: Received change of shift report from Jalen RN. Pt is asleep, awakens to touch, withdraws to pain. Pt is orally intubated, ETT 7.5 at 26cm right lipline, with vent settings, AC 22, VT 500, Peep 5.0, FIO2 30% with 96% O2Sat and bilateral diminished lung sounds. air sampling and monitoring displays SB, with heart rate in low 50's to high 40's, and weak peripheral pulses on palpation. Temp 97.7F axillary. Pt has central line on right femoral, TLC, currently TKO, patent/intact, dressing changed on 01/25/19. Abdomen is round, soft, nontender to touch with hypoactive bowel sounds. Pt has orogastric tube with feeding Glucerna 1.2 at 45ml/hour with no residual. Costello catheter is noted, draining clear/yellow urine. Pt is on P200 pressure releasing mattress, with head of bed at 30 degrees, and bilateral lower extremities elevated on pillows. Pt has bilateral soft wrist restraints to prevent self extubation, and pulling of the central femoral line, as pt is observed reaching for the ET tube and IV lines. Skin integrity at restraint site is within normal limits. Will continue to monitor and follow plan of care.
[2019-01-28] MEDS: DOPamine 400mg/250ml 250 ML IV SCH ×3 (09:00→21:40)
--- NOTE | 2019-01-28 09:00 | NUR ---
RADIOLOGY DEPT., CHEST X-RAY DONE.-P.DYE
[2019-01-28] MEDS: Pantoprazole Inj IVP SCH (09:19)
[2019-01-28] MEDS: Ascorbic Acid 500mg tab ORAL SCH ×2 (09:20→18:01)
[2019-01-28] MEDS: Heparin 5000 units/ml inj SUBQ SCH ×2 (09:22→20:37)
[2019-01-28] MEDS ORDERED: DOPamine 400mg/250ml 250 ML IV SCH (09:30)
[2019-01-28] MEDS ORDERED: Phospha 250 Neutral tab NG SCH (10:00)
--- NOTE | 2019-01-28 10:00 | NUR ---
NURSE NOTES: Pt was seen by Dr Gonzalez. aware of bradycardia and order was received for Dopamine to titrate. Order was processed and followed. Oral care was done and pt repositioned. Addendum: 01/28/19 at 1503 by ESTEFANI VALLEJO RN Dopamine drip was started per order at 10mcg/kg/min to maintain SBP above 90 and HR above 50.
--- NOTE | 2019-01-28 10:12 | Nephrology Progress Note ---
Assessment/Plan Problem List: (1) Renal failure (ARF), acute on chronic (2) Acute respiratory failure (3) Septic shock (4) Cardiomyopathy Assessment Renal failure- Likely acute on Chronic- Cr lower Acute respiratory failure- intubated on Vent Septic Shock- On pressors COPD PVD Schizophrenia Plan renal dose dopamin for low HR K supplement down on hydration One dose IV Lasix mag and Phos and K supplement as needed 2D Echo Low Ej Fx - Global Hypokinesis Avoid nephrotoxics afterload reduction monitor renal parameters urine studies ADRIAN IMPRESSION: Nonobstructive stones in the left kidney demonstrated. Bilateral renal cysts. Subjective ROS Limited/Unobtainable: Yes Objective Objective Last 24 Hour Vital Signs Date Time Temp Pulse Resp B/P (MAP) Pulse Ox O2 Delivery O2 Flow Rate FiO2 01/28/19 09:30 90 22 113/79 (90) 95 01/28/19 09:00 47 22 90/50 (63) 95 01/28/19 08:39 48 22 30 01/28/19 08:30 48 22 91/52 (65) 96 01/28/19 08:00 97.7 57 16 109/69 (82) 97 01/28/19 07:21 100 01/28/19 07:17 54 20 30 01/28/19 07:00 53 22 90/49 (63) 96 01/28/19 06:00 58 22 110/57 (74) 96 01/28/19 05:20 60 25 30 01/28/19 05:00 56 18 111/61 (78) 95 01/28/19 04:00 56 01/28/19 04:00 Mechanical Ventilator 01/28/19 04:00 30 01/28/19 04:00 97.6 56 22 107/55 (72) 95 01/28/19 03:17 66 24 30 01/28/19 03:00 71 18 114/66 (82) 97 01/28/19 02:00 56 22 108/60 (76) 98 01/28/19 01:30 49 22 30 01/28/19 01:00 49 22 97/58 (71) 94 01/28/19 00:00 Mechanical Ventilator 01/28/19 00:00 98.2 53 28 110/58 (75) 94 01/28/19 00:00 53 01/27/19 23:23 59 22 30 01/27/19 23:00 60 25 108/58 (75) 96 01/27/19 22:00 60 30 108/56 (73) 95 01/27/19 21:00 72 27 111/61 (78) 97 01/27/19 21:00 111/61 01/27/19 20:55 75 24 30 01/27/19 20:00 Mechanical Ventilator 01/27/19 20:00 98.1 76 19 115/75 (88) 96 01/27/19 20:00 30 01/27/19 19:19 78 01/27/19 19:01 79 23 30 01/27/19 19:00 89 24 113/63 (80) 97 01/27/19 18:00 84 24 104/65 (78) 94 01/27/19 17:00 98.9 76 24 112/60 (77) 95 01/27/19 16:40 75 22 30 01/27/19 16:00 Mechanical Ventilator 01/27/19 16:00 74 01/27/19 16:00 77 24 108/59 (75) 95 01/27/19 16:00 30 01/27/19 15:00 76 27 116/56 (76) 95 01/27/19 14:40 78 24 30 01/27/19 14:00 76 27 106/66 (79) 95 01/27/19 13:02 78 23 35 01/27/19 13:00 81 21 106/66 (79) 95 01/27/19 12:00 30 01/27/19 12:00 Mechanical Ventilator 01/27/19 12:00 73 22 106/66 (79) 98 01/27/19 12:00 76 01/27/19 11:19 78 24 35 01/27/19 11:00 79 24 117/59 (78) 95 Intake and Output 01/27/19 01/28/19 19:00 07:00 Intake Total 890 ml 713.8 ml Output Total 830 ml 465 ml Balance 60 ml 248.8 ml Free Water 120 ml 50 ml IV Total 380 ml 168.8 ml Tube Feeding 390 ml 495 ml Output Urine Total 830 ml 465 ml Laboratory Tests 01/27/19 20:38: Amikacin Level Trough 3.7L 01/28/19 04:00: Urine Eosinophils None seen 01/28/19 04:45: White Blood Count 12.6H, Red Blood Count 3.23L, Hemoglobin 9.8L, Hematocrit 30.1L, Mean Corpuscular Volume 93, Mean Corpuscular Hemoglobin 30.4, Mean Corpuscular Hemoglobin Concent 32.6, Red Cell Distribution Width 13.6, Platelet Count 202, Mean Platelet Volume 5.8L, Neutrophils (%) (Auto) 80.8H, Lymphocytes (%) (Auto) 13.2L, Monocytes (%) (Auto) 5.8, Eosinophils (%) (Auto) 0.0, Basophils (%) (Auto) 0.3, Sodium Level 143, Potassium Level 4.3, Chloride Level 109H, Carbon Dioxide Level 31, Anion Gap 3L, Blood Urea Nitrogen 25H, Creatinine 1.5H, Estimat Glomerular Filtration Rate 46.5, Glucose Level 153H, Calcium Level 7.5L, Phosphorus Level 2.4L, Magnesium Level 2.0, Total Bilirubin 0.2, Aspartate Amino Transf (AST/SGOT) 52H, Alanine Aminotransferase (ALT/SGPT) 44, Alkaline Phosphatase 99, Total Protein 5.9L, Albumin 1.7L, Globulin 4.2, Albumin/Globulin Ratio 0.4L, Random Vancomycin Level 16.9 Height (Feet): 5 Height (Inches): 6.00 Weight (Pounds): 157 General Appearance: no apparent distress EENT: other - vented Cardiovascular: bradycardia Respiratory/Chest: decreased breath sounds Abdomen: distended Bienvenido Gonzalez MD Jan 28, 2019 10:12
--- NOTE | 2019-01-28 11:00 | NUR ---
NURSE NOTES: Dopamine drip was titrated down to 6mcg/kg/min. RT at bedside, FIO2 was increased now to 50% to maintain O2Sat above 90, as pt is noted to desaturate.
--- NOTE | 2019-01-28 11:19 | Surgery Progress Note ---
Surgery Progress Note Subjective Additional Comments ill appearing in ICU leukocytosis trending down exam unchanged labs stable on support Objective Last 24 Hour Vital Signs Date Time Temp Pulse Resp B/P (MAP) Pulse Ox O2 Delivery O2 Flow Rate FiO2 01/28/19 10:57 122 24 50 01/28/19 09:30 90 22 113/79 (90) 95 01/28/19 09:00 47 22 90/50 (63) 95 01/28/19 08:39 48 22 30 01/28/19 08:30 48 22 91/52 (65) 96 01/28/19 08:00 97.7 57 16 109/69 (82) 97 01/28/19 07:21 100 01/28/19 07:17 54 20 30 01/28/19 07:00 53 22 90/49 (63) 96 01/28/19 06:00 58 22 110/57 (74) 96 01/28/19 05:20 60 25 30 01/28/19 05:00 56 18 111/61 (78) 95 01/28/19 04:00 56 01/28/19 04:00 Mechanical Ventilator 01/28/19 04:00 30 01/28/19 04:00 97.6 56 22 107/55 (72) 95 01/28/19 03:17 66 24 30 01/28/19 03:00 71 18 114/66 (82) 97 01/28/19 02:00 56 22 108/60 (76) 98 01/28/19 01:30 49 22 30 01/28/19 01:00 49 22 97/58 (71) 94 01/28/19 00:00 Mechanical Ventilator 01/28/19 00:00 98.2 53 28 110/58 (75) 94 01/28/19 00:00 53 01/27/19 23:23 59 22 30 01/27/19 23:00 60 25 108/58 (75) 96 01/27/19 22:00 60 30 108/56 (73) 95 01/27/19 21:00 72 27 111/61 (78) 97 01/27/19 21:00 111/61 01/27/19 20:55 75 24 30 01/27/19 20:00 Mechanical Ventilator 01/27/19 20:00 98.1 76 19 115/75 (88) 96 01/27/19 20:00 30 01/27/19 19:19 78 01/27/19 19:01 79 23 30 01/27/19 19:00 89 24 113/63 (80) 97 01/27/19 18:00 84 24 104/65 (78) 94 01/27/19 17:00 98.9 76 24 112/60 (77) 95 01/27/19 16:40 75 22 30 01/27/19 16:00 Mechanical Ventilator 01/27/19 16:00 74 01/27/19 16:00 77 24 108/59 (75) 95 01/27/19 16:00 30 01/27/19 15:00 76 27 116/56 (76) 95 01/27/19 14:40 78 24 30 01/27/19 14:00 76 27 106/66 (79) 95 01/27/19 13:02 78 23 35 01/27/19 13:00 81 21 106/66 (79) 95 01/27/19 12:00 30 01/27/19 12:00 Mechanical Ventilator 01/27/19 12:00 73 22 106/66 (79) 98 01/27/19 12:00 76 I&O Intake and Output 01/27/19 01/28/19 19:00 07:00 Intake Total 890 ml 713.8 ml Output Total 830 ml 465 ml Balance 60 ml 248.8 ml Free Water 120 ml 50 ml IV Total 380 ml 168.8 ml Tube Feeding 390 ml 495 ml Output Urine Total 830 ml 465 ml Dressing: other Wound: other Drains: other Cardiovascular: RSR Respiratory: decreased breath sounds Abdomen: soft, non-distended, decreased bowel sounds Extremities: no cyanosis, other Laboratory Tests Test 01/27/19 20:38 01/28/19 04:00 01/28/19 04:45 01/28/19 10:18 Amikacin Level Trough 3.7 ug/mL (4.0-8.0) L Urine Eosinophils None seen (NONE SEEN) White Blood Count 12.6 K/UL (4.8-10.8) H Red Blood Count 3.23 M/UL (4.70-6.10) L Hemoglobin 9.8 G/DL (14.2-18.0) L Hematocrit 30.1 % (42.0-52.0) L Mean Corpuscular Volume 93 FL (80-99) Mean Corpuscular Hemoglobin 30.4 PG (27.0-31.0) Mean Corpuscular Hemoglobin Concent 32.6 G/DL (32.0-36.0) Red Cell Distribution Width 13.6 % (11.6-14.8) Platelet Count 202 K/UL (150-450) Mean Platelet Volume 5.8 FL (6.5-10.1) L Neutrophils (%) (Auto) 80.8 % (45.0-75.0) H Lymphocytes (%) (Auto) 13.2 % (20.0-45.0) L Monocytes (%) (Auto) 5.8 % (1.0-10.0) Eosinophils (%) (Auto) 0.0 % (0.0-3.0) Basophils (%) (Auto) 0.3 % (0.0-2.0) Sodium Level 143 MMOL/L (136-145) Potassium Level 4.3 MMOL/L (3.5-5.1) Chloride Level 109 MMOL/L (98-107) H Carbon Dioxide Level 31 MMOL/L (21-32) Anion Gap 3 mmol/L (5-15) L Blood Urea Nitrogen 25 mg/dL (7-18) H Creatinine 1.5 MG/DL (0.55-1.30) H Estimat Glomerular Filtration Rate 46.5 mL/min (>60) Glucose Level 153 MG/DL (74-106) H Calcium Level 7.5 MG/DL (8.5-10.1) L Phosphorus Level 2.4 MG/DL (2.5-4.9) L Magnesium Level 2.0 MG/DL (1.8-2.4) Total Bilirubin 0.2 MG/DL (0.2-1.0) Aspartate Amino Transf (AST/SGOT) 52 U/L (15-37) H Alanine Aminotransferase (ALT/SGPT) 44 U/L (12-78) Alkaline Phosphatase 99 U/L (46-116) Total Protein 5.9 G/DL (6.4-8.2) L Albumin 1.7 G/DL (3.4-5.0) L Globulin 4.2 g/dL Albumin/Globulin Ratio 0.4 (1.0-2.7) L Random Vancomycin Level 16.9 ug/mL Arterial Blood pH 7.483 (7.350-7.450) Arterial Blood Partial Pressure CO2 36.2 mmHg (35.0-45.0) Arterial Blood Partial Pressure O2 55.1 mmHg (75.0-100.0) L Arterial Blood HCO3 26.5 mmol/L (22.0-26.0) H Arterial Blood Oxygen Saturation 88.6 % (95-100) *L Arterial Blood Base Excess 3.2 (-2-2) H Kvng Test Positive Plan Problems: (1) Sepsis Assessment & Plan: afebrile, HD improving tachycardic leukocytosis trending down lactic acidosis resolved ill appearing in ICU on vent support -IV fluids resuscitation -IV abx as per ID -trend labs -CXR noted -cont tube feeds -will follow with recs thank you (2) Septic shock (3) Wound, open Assessment & Plan: Patient presented on admission with multiple pressure injuries being identified. Non-blanching erythema without induration noted to sacrum ,Right and Left buttocks. Scattered areas that are darker and maroon in color noted within base of wound. Scrotum is also erythematous. Unstageable pressure injury noted to Left heel. Base of wound is 100% necrotic but soft. Erythematous margins with surrounding non-blanching erythema.(L)3.2cm x (W)3cm. no drainage Right heel is boggy with non-blanching erythema.. Keloid scar noted distal R tibia. Partial thickness ulcer noted to dorsal R foot. Base of wound is moist and viable. Small amt serous exudate noted. Scattered small dry scabs noted to dorsal R foot. Tx.Plan: Swab Dorsal R foot and R heel with Betadine. Cover with Optifoam drsg. Change every 3 days and prn. Apply Moisture Barrier Paste to buttocks. Cover sacrum with Optifoam drsg. Change every 3 days and prn. Apply Cavilon Skin Barrier to L heel.Cover with Optifoam drsg. Change every 7 days and prn. APM/JELLY mattress. Reposition at least every 2hours or as tolerated. Off-load heels with pillow. Nutritional Optimization Will monitor while in critical condition DAILY ESTIMATED NEEDS: Needs based on Critical care, sepsis, wounds 69kg 22-30 kcals/kg 6097-1113 total kcals 1.25-2 g protein/kg 86-138 g total protein 25-30 mL/kg 0264-2175 total fluid mLs NUTRITION DIAGNOSIS: Increased kcal and pro needs r/t sepsis, wound healing, and underweight status as evidenced by pt w respiratory distress now intubated, critically elev WBC (*29.7), elev BG (200's), w/ multiple wounds (refer to eval), pt is @88% if [place] Body Weight. CURRENT TF: Glucerna 1.2 @30ml ENTERAL NUTRITION RECOMMENDATIONS: VITAL AF 1.2 @60ml/hr x24 hrs to provide 1440ml, 1728 kcal, 108g pro, 1168ml free H2O - WITH HEMODYNAMIC STABILITY, rec TF change to VITAL 1.2 to better meet est needs. Start @20ml/hr for 6 hrs. Advance as tolerated 10ml/hr q4-6 hrs to goal. - Flush per . HOB over 30 degrees If pt remains on pressor support, rec trophic feeds of Vital 1.2 @5-10ml/hr to maintain gut integrity. ------ ADDITIONAL RECOMMENDATIONS: 1) Per SNF: HT 71 inches, 152 lbs (69.1kg) 2) Wound care: Add DANIELA in 4oz water BID via OGT + VIT C 250mg BID (f/up w/ WC specialist) 3) Monitor lytes daily, replete as needed 4) Daily calibrated bed scale wts Mauricio Anne Jan 28, 2019 11:19
--- NOTE | 2019-01-28 11:40 | NUR ---
RD ASSESSMENT & RECOMMENDATIONS SEE CARE ACTIVITY FOR COMPLETE ASSESSMENT DAILY ESTIMATED NEEDS: Needs based on Critical care, sepsis, wounds 69kg 22-30 kcals/kg 6017-8890 total kcals 1.25-2 g protein/kg 86-138 g total protein 25-30 mL/kg 2842-5021 total fluid mLs NUTRITION DIAGNOSIS: Increased kcal and pro needs r/t sepsis, wound healing, and underweight status as evidenced by pt w respiratory distress now intubated, critically elev WBC (*29.7-> 12.6 trend down), elev BG (200's-> POC 127-167 improved), w/ multiple wounds (refer to eval), pt is @88% if [place] Body Weight. CURRENT TF: Glucerna 1.2 @ 45ml/hr x 24 hrs ENTERAL NUTRITION RECOMMENDATIONS: Glucerna 1.5 @ 50ml/hr x 24 hrs to provide 1200ml, 1800kcal, 99g prot, 911ml free water - Rec TF change to Glucerna 1.5 for less free fluids (BNP >13560) - Start @ 30ml/hr for 6 hrs, advance as tolerated 10ml/hr q4-6 hrs to goal. - Flush per MD. HOB over 30 degrees ADDITIONAL RECOMMENDATIONS: 1) Per SNF: HT 71 inches, 152 lbs (69.1kg) 2) Wound care: Add DANIELA in 4oz water BID via OGT : Continue VIT C 250mg BID 3) Monitor lytes daily, replete as needed (low phos) 4) Daily calibrated bed scale wts 5) Consider adding daily bowel regimen (no BM recorded since adm)
--- NOTE | 2019-01-28 11:53 | Pulmonolgy Critical Care Note ---
Critical Care - Asmt/Plan Problems: (1) Acute respiratory failure (2) Septic shock (3) Systolic heart failure (4) Chronic kidney disease (5) Malignant neoplasm of right kidney (6) COPD (chronic obstructive pulmonary disease) (7) Schizophrenia Respiratory: monitor respiratory rate, adjust FIO2, CXR Cardiac: start pressors - on dopamin, continue to monitor HR/BP Renal: F/U I&O Infectious Disease: check cultures, continue antibiotics Gastrointestinal: continue feedings/current rate Endocrine: monitor blood sugar Hematologic: monitor H/H Neurologic: PRN Morphine Prophylaxis: Protonix, Heparin Disposition: keep in ICU Time Spent (Minutes): 40 Notes 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, 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, ID Discussed with: nurses, consultants, shelter case managerlegal support manager - Objective Last 24 Hour Vital Signs Date Time Temp Pulse Resp B/P (MAP) Pulse Ox O2 Delivery O2 Flow Rate FiO2 01/28/19 11:22 98/52 01/28/19 10:57 122 24 50 01/28/19 09:30 90 22 113/79 (90) 95 01/28/19 09:00 47 22 90/50 (63) 95 01/28/19 08:39 48 22 30 01/28/19 08:30 48 22 91/52 (65) 96 01/28/19 08:00 97.7 57 16 109/69 (82) 97 01/28/19 07:21 100 01/28/19 07:17 54 20 30 01/28/19 07:00 53 22 90/49 (63) 96 01/28/19 06:00 58 22 110/57 (74) 96 01/28/19 05:20 60 25 30 01/28/19 05:00 56 18 111/61 (78) 95 01/28/19 04:00 56 01/28/19 04:00 Mechanical Ventilator 01/28/19 04:00 30 01/28/19 04:00 97.6 56 22 107/55 (72) 95 01/28/19 03:17 66 24 30 01/28/19 03:00 71 18 114/66 (82) 97 01/28/19 02:00 56 22 108/60 (76) 98 01/28/19 01:30 49 22 30 01/28/19 01:00 49 22 97/58 (71) 94 01/28/19 00:00 Mechanical Ventilator 01/28/19 00:00 98.2 53 28 110/58 (75) 94 01/28/19 00:00 53 01/27/19 23:23 59 22 30 01/27/19 23:00 60 25 108/58 (75) 96 01/27/19 22:00 60 30 108/56 (73) 95 01/27/19 21:00 72 27 111/61 (78) 97 01/27/19 21:00 111/61 01/27/19 20:55 75 24 30 01/27/19 20:00 Mechanical Ventilator 01/27/19 20:00 98.1 76 19 115/75 (88) 96 01/27/19 20:00 30 01/27/19 19:19 78 01/27/19 19:01 79 23 30 01/27/19 19:00 89 24 113/63 (80) 97 01/27/19 18:00 84 24 104/65 (78) 94 01/27/19 17:00 98.9 76 24 112/60 (77) 95 01/27/19 16:40 75 22 30 01/27/19 16:00 Mechanical Ventilator 01/27/19 16:00 74 01/27/19 16:00 77 24 108/59 (75) 95 01/27/19 16:00 30 01/27/19 15:00 76 27 116/56 (76) 95 01/27/19 14:40 78 24 30 01/27/19 14:00 76 27 106/66 (79) 95 01/27/19 13:02 78 23 35 01/27/19 13:00 81 21 106/66 (79) 95 01/27/19 12:00 30 01/27/19 12:00 Mechanical Ventilator 01/27/19 12:00 73 22 106/66 (79) 98 01/27/19 12:00 76 Status: sedated Condition: critical HEENT: atraumatic Neck: full ROM Lungs: rales, rhonchi Heart: HR/BP stable Abdomen: soft, non-tender Extremities: no C/C/E, edema Accucheck: 167 Critical Care - Subjective ROS Limited/Unobtainable: Yes Condition: critical, improving EKG Rhythm: Sinus Rhythm FI02: 50 Vent Support Breath Rate: 22 Vent Support Mode: AC Vent Tidal Volume: 500 Sputum Amount: Moderate PEEP: 5.0 PIP: 22 Drips: dopamin drip Tube Feeding Amount: 0 I&O: Intake and Output 01/27/19 01/28/19 19:00 07:00 Intake Total 890 ml 713.8 ml Output Total 830 ml 465 ml Balance 60 ml 248.8 ml Free Water 120 ml 50 ml IV Total 380 ml 168.8 ml Tube Feeding 390 ml 495 ml Output Urine Total 830 ml 465 ml CXR: extensive bilateral infiltrate ET-Tube: 7.5 ET Position: 25 Labs: Laboratory Tests Test 01/27/19 20:38 01/28/19 04:00 01/28/19 04:45 01/28/19 10:18 Amikacin Level Trough 3.7 ug/mL (4.0-8.0) L Urine Eosinophils None seen (NONE SEEN) White Blood Count 12.6 K/UL (4.8-10.8) H Red Blood Count 3.23 M/UL (4.70-6.10) L Hemoglobin 9.8 G/DL (14.2-18.0) L Hematocrit 30.1 % (42.0-52.0) L Mean Corpuscular Volume 93 FL (80-99) Mean Corpuscular Hemoglobin 30.4 PG (27.0-31.0) Mean Corpuscular Hemoglobin Concent 32.6 G/DL (32.0-36.0) Red Cell Distribution Width 13.6 % (11.6-14.8) Platelet Count 202 K/UL (150-450) Mean Platelet Volume 5.8 FL (6.5-10.1) L Neutrophils (%) (Auto) 80.8 % (45.0-75.0) H Lymphocytes (%) (Auto) 13.2 % (20.0-45.0) L Monocytes (%) (Auto) 5.8 % (1.0-10.0) Eosinophils (%) (Auto) 0.0 % (0.0-3.0) Basophils (%) (Auto) 0.3 % (0.0-2.0) Sodium Level 143 MMOL/L (136-145) Potassium Level 4.3 MMOL/L (3.5-5.1) Chloride Level 109 MMOL/L (98-107) H Carbon Dioxide Level 31 MMOL/L (21-32) Anion Gap 3 mmol/L (5-15) L Blood Urea Nitrogen 25 mg/dL (7-18) H Creatinine 1.5 MG/DL (0.55-1.30) H Estimat Glomerular Filtration Rate 46.5 mL/min (>60) Glucose Level 153 MG/DL (74-106) H Calcium Level 7.5 MG/DL (8.5-10.1) L Phosphorus Level 2.4 MG/DL (2.5-4.9) L Magnesium Level 2.0 MG/DL (1.8-2.4) Total Bilirubin 0.2 MG/DL (0.2-1.0) Aspartate Amino Transf (AST/SGOT) 52 U/L (15-37) H Alanine Aminotransferase (ALT/SGPT) 44 U/L (12-78) Alkaline Phosphatase 99 U/L (46-116) Total Protein 5.9 G/DL (6.4-8.2) L Albumin 1.7 G/DL (3.4-5.0) L Globulin 4.2 g/dL Albumin/Globulin Ratio 0.4 (1.0-2.7) L Random Vancomycin Level 16.9 ug/mL Arterial Blood pH 7.483 (7.350-7.450) Arterial Blood Partial Pressure CO2 36.2 mmHg (35.0-45.0) Arterial Blood Partial Pressure O2 55.1 mmHg (75.0-100.0) L Arterial Blood HCO3 26.5 mmol/L (22.0-26.0) H Arterial Blood Oxygen Saturation 88.6 % (95-100) *L Arterial Blood Base Excess 3.2 (-2-2) H Kvng Test Positive Ron Anthony MD Jan 28, 2019 11:53
--- NOTE | 2019-01-28 12:00 | NUR ---
NURSE NOTES: Pt was repositioned with bilateral extremities elevated on pillows. Oral care was done.
--- NOTE | 2019-01-28 12:30 | NUR ---
NURSE NOTES: Pt was seen by Dr Anthony. updated on pt's status. Pt is maintained on Dopamine, and rate was titrated down to 4mcg/min. New order was noted and pt is started on NS at 125ml/hour.
--- NOTE | 2019-01-28 12:39 | Diagnostic Imaging Report ---
Indication: Dyspnea Comparison: 01/27/2019 A single view chest radiograph was obtained. Findings: Extensive bilateral infiltrates are again demonstrated without change. Tubes and lines are stable. IMPRESSION: No change from the prior day
--- NOTE | 2019-01-28 14:00 | NUR ---
NURSE NOTES: Dopamine drip is maintained and rate is now titrated up to 8mcg/kg/min to maintain HR and BP above 90 for renal perfusion per Dr Gonzalez's order. NS is infusing at 125ml/hour. Pt remains afebrile.
--- NOTE | 2019-01-28 14:31 | General Progress Note ---
Assessment/Plan Problem List: (1) Renal failure (ARF), acute on chronic ICD Codes: N17.9 - Acute kidney failure, unspecified; N18.9 - Chronic kidney disease, unspecified SNOMED: 743779776 (2) Sepsis ICD Codes: A41.9 - Sepsis, unspecified organism SNOMED: 49541640 Qualifiers: Qualified Codes: A41.9 - Sepsis, unspecified organism (3) Malignant neoplasm of right kidney ICD Codes: C64.1 - Malignant neoplasm of right kidney, except renal pelvis SNOMED: 697227583 (4) Acute respiratory failure ICD Codes: J96.00 - Acute respiratory failure, unspecified whether with hypoxia or hypercapnia SNOMED: 83336249 (5) PVD (peripheral vascular disease) ICD Codes: I73.9 - Peripheral vascular disease, unspecified SNOMED: 712375598 Status: unchanged Assessment/Plan: vent abx wound care cbc bmp am Subjective Constitutional: Reports: weakness Allergies: Coded Allergies: No Known Allergies (Unverified , 01/24/19) All Systems: reviewed and negative except above Subjective intubated in icu Objective Last 24 Hour Vital Signs Date Time Temp Pulse Resp B/P (MAP) Pulse Ox O2 Delivery O2 Flow Rate FiO2 01/28/19 14:00 52 22 128/59 (82) 100 01/28/19 13:02 84 22 50 01/28/19 13:00 70 20 146/72 (96) 99 01/28/19 12:00 50 01/28/19 12:00 86 01/28/19 12:00 98.5 63 21 131/67 (88) 98 01/28/19 12:00 Mechanical Ventilator 01/28/19 11:30 73 21 137/61 (86) 99 01/28/19 11:22 98/52 01/28/19 11:00 115 16 132/93 (106) 100 01/28/19 10:57 122 24 50 01/28/19 10:30 57 22 123/55 (77) 97 01/28/19 10:00 79 19 130/68 (88) 92 01/28/19 09:30 90 22 113/79 (90) 95 01/28/19 09:00 47 22 90/50 (63) 95 01/28/19 08:39 48 22 30 01/28/19 08:30 48 22 91/52 (65) 96 01/28/19 08:00 58 01/28/19 08:00 30 01/28/19 08:00 97.7 57 16 109/69 (82) 97 01/28/19 08:00 Mechanical Ventilator 01/28/19 07:21 100 01/28/19 07:17 54 20 30 01/28/19 07:00 53 22 90/49 (63) 96 01/28/19 06:00 58 22 110/57 (74) 96 01/28/19 05:20 60 25 30 01/28/19 05:00 56 18 111/61 (78) 95 01/28/19 04:00 56 01/28/19 04:00 Mechanical Ventilator 01/28/19 04:00 30 01/28/19 04:00 97.6 56 22 107/55 (72) 95 01/28/19 03:17 66 24 30 01/28/19 03:00 71 18 114/66 (82) 97 01/28/19 02:00 56 22 108/60 (76) 98 01/28/19 01:30 49 22 30 01/28/19 01:00 49 22 97/58 (71) 94 01/28/19 00:00 Mechanical Ventilator 01/28/19 00:00 98.2 53 28 110/58 (75) 94 01/28/19 00:00 53 01/27/19 23:23 59 22 30 01/27/19 23:00 60 25 108/58 (75) 96 01/27/19 22:00 60 30 108/56 (73) 95 01/27/19 21:00 72 27 111/61 (78) 97 01/27/19 21:00 111/61 01/27/19 20:55 75 24 30 01/27/19 20:00 Mechanical Ventilator 01/27/19 20:00 98.1 76 19 115/75 (88) 96 01/27/19 20:00 30 01/27/19 19:19 78 01/27/19 19:01 79 23 30 01/27/19 19:00 89 24 113/63 (80) 97 01/27/19 18:00 84 24 104/65 (78) 94 01/27/19 17:00 98.9 76 24 112/60 (77) 95 01/27/19 16:40 75 22 30 11/13/19 16:00 Mechanical Ventilator 01/27/19 16:00 74 01/27/19 16:00 77 24 108/59 (75) 95 01/27/19 16:00 30 01/27/19 15:00 76 27 116/56 (76) 95 01/27/19 14:40 78 24 30 Intake and Output 01/27/19 01/28/19 19:00 07:00 Intake Total 890 ml 713.8 ml Output Total 830 ml 465 ml Balance 60 ml 248.8 ml Free Water 120 ml 50 ml IV Total 380 ml 168.8 ml Tube Feeding 390 ml 495 ml Output Urine Total 830 ml 465 ml Laboratory Tests 01/27/19 20:38: Amikacin Level Trough 3.7L 01/28/19 04:00: Urine Eosinophils None seen 01/28/19 04:45: White Blood Count 12.6H, Red Blood Count 3.23L, Hemoglobin 9.8L, Hematocrit 30.1L, Mean Corpuscular Volume 93, Mean Corpuscular Hemoglobin 30.4, Mean Corpuscular Hemoglobin Concent 32.6, Red Cell Distribution Width 13.6, Platelet Count 202, Mean Platelet Volume 5.8L, Neutrophils (%) (Auto) 80.8H, Lymphocytes (%) (Auto) 13.2L, Monocytes (%) (Auto) 5.8, Eosinophils (%) (Auto) 0.0, Basophils (%) (Auto) 0.3, Sodium Level 143, Potassium Level 4.3, Chloride Level 109H, Carbon Dioxide Level 31, Anion Gap 3L, Blood Urea Nitrogen 25H, Creatinine 1.5H, Estimat Glomerular Filtration Rate 46.5, Glucose Level 153H, Calcium Level 7.5L, Phosphorus Level 2.4L, Magnesium Level 2.0, Total Bilirubin 0.2, Aspartate Amino Transf (AST/SGOT) 52H, Alanine Aminotransferase (ALT/SGPT) 44, Alkaline Phosphatase 99, Total Protein 5.9L, Albumin 1.7L, Globulin 4.2, Albumin/Globulin Ratio 0.4L, Random Vancomycin Level 16.9 01/28/19 10:18: Arterial Blood pH 7.483H, Arterial Blood Partial Pressure CO2 36.2, Arterial Blood Partial Pressure O2 55.1L, Arterial Blood HCO3 26.5H, Arterial Blood Oxygen Saturation 88.6*L, Arterial Blood Base Excess 3.2H, Kvng Test Positive Height (Feet): 5 Height (Inches): 6.00 Weight (Pounds): 157 General Appearance: lethargic EENT: normal ENT inspection Neck: normal alignment Cardiovascular: normal peripheral pulses, normal rate, regular rhythm Respiratory/Chest: chest wall non-tender, lungs clear, normal breath sounds Abdomen: normal bowel sounds, non tender, soft Extremities: normal inspection Edema: no edema noted Arm (L), no edema noted Arm (R), no edema noted Leg (L), no edema noted Leg (R), no edema noted Pedal (L), no edema noted Pedal (R), no edema noted Generalized Neurologic: motor weakness Skin: normal pigmentation, warm/dry Corey Short DO Jan 28, 2019 14:31
--- NOTE | 2019-01-28 14:45 | Infectious Diseases Prog Note ---
Assessment/Plan Assessment/Plan 68yo gentleman with PMH below presents with fever(100.1 is highest recorded in transfer packet) and worsened congestion from SNF. In the ED, pt was placed on oxygen then BiPAP but ultimately intubated. ID consulted for antimicrobial recommendation. Tmax 100.1 at long term, SP Leukocytosis, uptrending, now improving. no steroids. Lactic acidosis, SP Shock, was on levophed, titrated off, but now on dopamine Likely PNA COPD? CHF? thick secretions per nurse flu swab negative 01/24 CXR: Extensive opacities within upper lobes demonstrated. In addition there is generalized interstitial densities throughout both lung craig. 01/25 CXR: Bilateral infiltrates appear fairly extensive but unchanged. TTE with EF 30-35% 01/25 sputum cx: MRSA 01/25 urine legionella ag: P 01/27 CXR: Extensive infiltrates bilaterally. Some degree of a superimposed interstitial edema has improved since the last exam. Endotracheal tube and NG tube remain in satisfactory in position. 01/28 CXR: Extensive bilateral infiltrates are again demonstrated without change. Tubes and lines are stable. Possible UTI? new mcmahon placed in ED 01/25 UA 15-20 WBC 01/25 Ucx: P Renal US: Nonobstructive stones in the left kidney demonstrated. Bilateral renal cysts. Limited evaluation due to body habitus. r/o bacteremia 01/25 BCx: ngtd No diarrhea HIV test negative MRSA screen positive RLE skin graft b/l LE heel pressure ulcers and sacral ulcer Tobacco abuse COPD HTN Kidney cancer OA CKD Anemia Schizophrenia PVD CHF Plan: continue ertapenem, amikacin and vancomycin #4 Azithromycin #1 for atypicals SP cefepime #1 SP flagyl #1 SP vancomycin #1 f/u Ucx f/u BCx repeat sputum cx given desat urine legionella Thank you for this consult. [facility] will continue to follow the patient with you. Subjective Allergies: Coded Allergies: No Known Allergies (Unverified , 01/24/19) Subjective Afebrile. WBC better Became alanna, hypotensive and hypoxic. dopamine started. FiO2 increased to 50% Objective Vital Signs Last 24 Hour Vital Signs Date Time Temp Pulse Resp B/P (MAP) Pulse Ox O2 Delivery O2 Flow Rate FiO2 01/28/19 14:00 52 22 128/59 (82) 100 01/28/19 13:02 84 22 50 01/28/19 13:00 70 20 146/72 (96) 99 01/28/19 12:00 50 01/28/19 12:00 86 01/28/19 12:00 98.5 63 21 131/67 (88) 98 01/28/19 12:00 Mechanical Ventilator 01/28/19 11:30 73 21 137/61 (86) 99 01/28/19 11:22 98/52 01/28/19 11:00 115 16 132/93 (106) 100 01/28/19 10:57 122 24 50 01/28/19 10:30 57 22 123/55 (77) 97 01/28/19 10:00 79 19 130/68 (88) 92 01/28/19 09:30 90 22 113/79 (90) 95 01/28/19 09:00 47 22 90/50 (63) 95 01/28/19 08:39 48 22 30 01/28/19 08:30 48 22 91/52 (65) 96 01/28/19 08:00 58 01/28/19 08:00 30 01/28/19 08:00 97.7 57 16 109/69 (82) 97 01/28/19 08:00 Mechanical Ventilator 01/28/19 07:21 100 01/28/19 07:17 54 20 30 01/28/19 07:00 53 22 90/49 (63) 96 01/28/19 06:00 58 22 110/57 (74) 96 01/28/19 05:20 60 25 30 01/28/19 05:00 56 18 111/61 (78) 95 01/28/19 04:00 56 01/28/19 04:00 Mechanical Ventilator 01/28/19 04:00 30 01/28/19 04:00 97.6 56 22 107/55 (72) 95 01/28/19 03:17 66 24 30 01/28/19 03:00 71 18 114/66 (82) 97 01/28/19 02:00 56 22 108/60 (76) 98 01/28/19 01:30 49 22 30 01/28/19 01:00 49 22 97/58 (71) 94 01/28/19 00:00 Mechanical Ventilator 01/28/19 00:00 98.2 53 28 110/58 (75) 94 01/28/19 00:00 53 11/13/19 23:23 59 22 30 01/27/19 23:00 60 25 108/58 (75) 96 01/27/19 22:00 60 30 108/56 (73) 95 01/27/19 21:00 72 27 111/61 (78) 97 01/27/19 21:00 111/61 01/27/19 20:55 75 24 30 01/27/19 20:00 Mechanical Ventilator 01/27/19 20:00 98.1 76 19 115/75 (88) 96 01/27/19 20:00 30 01/27/19 19:19 78 01/27/19 19:01 79 23 30 01/27/19 19:00 89 24 113/63 (80) 97 01/27/19 18:00 84 24 104/65 (78) 94 01/27/19 17:00 98.9 76 24 112/60 (77) 95 01/27/19 16:40 75 22 30 01/27/19 16:00 Mechanical Ventilator 01/27/19 16:00 74 01/27/19 16:00 77 24 108/59 (75) 95 01/27/19 16:00 30 01/27/19 15:00 76 27 116/56 (76) 95 Height (Feet): 5 Height (Inches): 6.00 Weight (Pounds): 157 Objective Gen: NAD HEENT: anicteric sclera. ETT CV: RRR. Resp: coarse. equal chest rise. Abd: soft. normoactive Bs+ Neuro: sedated Skin: RLE skin graft Laboratory Tests Test 01/27/19 20:38 01/28/19 04:00 01/28/19 04:45 01/28/19 10:18 Amikacin Level Trough 3.7 ug/mL (4.0-8.0) L Urine Eosinophils None seen (NONE SEEN) White Blood Count 12.6 K/UL (4.8-10.8) H Red Blood Count 3.23 M/UL (4.70-6.10) L Hemoglobin 9.8 G/DL (14.2-18.0) L Hematocrit 30.1 % (42.0-52.0) L Mean Corpuscular Volume 93 FL (80-99) Mean Corpuscular Hemoglobin 30.4 PG (27.0-31.0) Mean Corpuscular Hemoglobin Concent 32.6 G/DL (32.0-36.0) Red Cell Distribution Width 13.6 % (11.6-14.8) Platelet Count 202 K/UL (150-450) Mean Platelet Volume 5.8 FL (6.5-10.1) L Neutrophils (%) (Auto) 80.8 % (45.0-75.0) H Lymphocytes (%) (Auto) 13.2 % (20.0-45.0) L Monocytes (%) (Auto) 5.8 % (1.0-10.0) Eosinophils (%) (Auto) 0.0 % (0.0-3.0) Basophils (%) (Auto) 0.3 % (0.0-2.0) Sodium Level 143 MMOL/L (136-145) Potassium Level 4.3 MMOL/L (3.5-5.1) Chloride Level 109 MMOL/L (98-107) H Carbon Dioxide Level 31 MMOL/L (21-32) Anion Gap 3 mmol/L (5-15) L Blood Urea Nitrogen 25 mg/dL (7-18) H Creatinine 1.5 MG/DL (0.55-1.30) H Estimat Glomerular Filtration Rate 46.5 mL/min (>60) Glucose Level 153 MG/DL (74-106) H Calcium Level 7.5 MG/DL (8.5-10.1) L Phosphorus Level 2.4 MG/DL (2.5-4.9) L Magnesium Level 2.0 MG/DL (1.8-2.4) Total Bilirubin 0.2 MG/DL (0.2-1.0) Aspartate Amino Transf (AST/SGOT) 52 U/L (15-37) H Alanine Aminotransferase (ALT/SGPT) 44 U/L (12-78) Alkaline Phosphatase 99 U/L (46-116) Total Protein 5.9 G/DL (6.4-8.2) L Albumin 1.7 G/DL (3.4-5.0) L Globulin 4.2 g/dL Albumin/Globulin Ratio 0.4 (1.0-2.7) L Random Vancomycin Level 16.9 ug/mL Arterial Blood pH 7.483 (7.350-7.450) Arterial Blood Partial Pressure CO2 36.2 mmHg (35.0-45.0) Arterial Blood Partial Pressure O2 55.1 mmHg (75.0-100.0) L Arterial Blood HCO3 26.5 mmol/L (22.0-26.0) H Arterial Blood Oxygen Saturation 88.6 % (95-100) *L Arterial Blood Base Excess 3.2 (-2-2) H Kvng Test Positive Current Medications Medications (Trade) Dose Ordered Sig/Ricardo Route PRN Reason Start Time Stop Time Status Last Admin Dose Admin Acetaminophen (Tylenol) 650 mg Q4H PRN ORAL fever 01/24/19 20:00 02/23/19 19:59 Albuterol/ Ipratropium (Albuterol/ Ipratropium) 3 ml Q4H PRN HHN Shortness of Breath 01/24/19 20:00 01/29/19 19:59 Amikacin Protocol (Amikacin pharmacy to dose) 1 ea DAILY PRN MISC PER RX PROTOCOL 01/25/19 20:45 02/24/19 20:44 Amikacin Sulfate 950 mg/Sodium Chloride 113.8 ml @ 113.8 mls/ hr Q36H IV 01/26/19 10:00 02/02/19 09:59 01/27/19 22:10 Ascorbic Acid (Vitamin C) 250 mg TWICE A DAY ORAL 01/27/19 18:00 02/26/19 17:59 01/28/19 09:20 Chlorhexidine Gluconate (Roseanna-Hex 2%) 1 applic DAILY@2000 TOPIC 01/25/19 20:00 02/24/19 19:59 01/27/19 20:01 Dextrose (Dextrose 50%) 25 ml Q30M PRN IV Hypoglycemia 01/25/19 19:00 02/24/19 18:59 Dextrose (Dextrose 50%) 50 ml Q30M PRN IV Hypoglycemia 01/25/19 19:00 02/24/19 18:59 Dopamine HCl/ Dextrose 250 ml @ 0 mls/hr Q24H IV 01/28/19 10:45 02/27/19 10:44 01/28/19 11:22 Ertapenem 1 gm/ Sodium Chloride 55 ml @ 110 mls/hr Q24H IV 01/24/19 23:00 01/29/19 22:59 01/27/19 22:44 Heparin Sodium (Porcine) (Heparin 5000 units/ml) 5,000 units EVERY 12 HOURS SUBQ 01/24/19 21:00 02/23/19 20:59 01/28/19 09:22 Hydrocortisone (Solu-CORTEF) 100 mg EVERY 8 HOURS IV 01/25/19 11:00 02/24/19 10:59 01/28/19 12:51 Insulin Aspart (NovoLOG) EVERY 6 HOURS SUBQ 01/26/19 00:00 02/25/19 00:00 01/28/19 12:52 Lorazepam (Ativan 2mg/ml 1ml) 2 mg Q2H PRN IV For Anxiety 01/24/19 20:00 01/31/19 19:59 01/27/19 20:25 Morphine Sulfate (Morphine Sulfate) 4 mg Q4H PRN IVP Severe Pain (Pain Scale 7-10) 01/24/19 20:00 01/31/19 19:59 Norepinephrine Bitartrate 8 mg/ Dextrose 500 ml @ 0 mls/hr Q24H IV 01/24/19 21:00 02/23/19 20:14 01/26/19 11:00 Ondansetron HCl (Zofran) 4 mg Q6H PRN IVP Nausea & Vomiting 01/24/19 20:00 02/23/19 19:59 Pantoprazole (Protonix) 40 mg DAILY IVP 01/25/19 09:00 02/24/19 08:59 01/28/19 09:19 Polyethylene Glycol (Miralax) 17 gm DAILYPRN PRN ORAL Constipation 01/24/19 20:00 02/23/19 19:59 01/26/19 19:46 Potassium Chloride (K-Dur) 40 meq TWICE A DAY NG 01/27/19 11:45 02/26/19 11:44 01/28/19 09:20 Sodium Chloride 1,000 ml @ 125 mls/hr Q8H IV 01/28/19 12:00 02/27/19 11:59 01/28/19 12:50 Vancomycin HCl (Vanco rx to dose) 1 ea DAILY PRN MISC . 01/25/19 06:15 02/24/19 06:14 Pili Lenz MD Jan 28, 2019 14:45
[2019-01-28] MEDS: LORazepam Inj 2mg/ml 1ml IV PRN (16:12)
--- NOTE | 2019-01-28 16:16 | NUR ---
NURSE NOTES: Pt was administered Ativan per PRN order for anxiety as he is noted to be very restless. Will reassess.
--- NOTE | 2019-01-28 18:00 | NUR ---
NURSE NOTES: Pt is maintained on Dopamine drip at 8mcg/kg/min for renal perfusion per Dr Gonzalez. Pt was cleaned, gown/bed linens were changed, dressing was changed. Pt was repositioned with bilateral lower extremities elevated on pillows.
--- NOTE | 2019-01-28 19:27 | NUR ---
HAND-OFF: Report given to Jalen RN. VS stable. Endorsed plan of care.
[2019-01-28] MEDS: Dyna-Hex 2% Top Sol 2oz TOPIC SCH (19:39)
--- NOTE | 2019-01-28 19:45 | NUR ---
NURSE NOTES: PATIENT ASLEEP, RESPONSE TO VOICE, ON ETT TO VENT, AC22/TV500/FIO2 50%/PEEP5, O2 SATURATION OVER 98% NOTED, HEART RATE 90'S/MIN SR NOTED, ABDOMEN SOFT, NON TENDER, NO BM NOTED, OGT INTACT AND PATENT, HELD GLUCERNA 1.2 AT 45ML/HR STATUS, NO RESIDUE NOTED, NO N/V STATUS, F/C INTACT AND PATENT, YELLOW URINE OUTED, TLC TO RIGHT FEMORAL, INTACT AND PATENT, ONGOING DOPAMINE 8MCG/KG/MIN AND NS AT 125ML/HR VIA TLC, 2 POINT SOFT RESTRAINTS FOR SAFETY, ON P200 BED, LOCKED BED, KEPT HOB 30 DEGREES AND BED ALARM, PROVIDED CALL LIGHT WITHIN REACH, WILL CONTINUE TO MONITOR.
[2019-01-28] MEDS ORDERED: Azithromycin 500 MG in D5W 275 ML IV ONE (20:00)
--- NOTE | 2019-01-28 20:13 | Cardiology Progress Note ---
Assessment/Plan Assessment/Plan 1. Septic syndrome. 2. Respiratory failure requiring intubation. 3. Pneumonia. 4. Schizophrenia and dementia. 5. Urinary tract infection. 6. Renal failure. 7. Hypoalbuminemia/malnutrition. 8. Sinus tachycardia secondary to above. 9. Left ventricular systolic dysfunction. 10. sinus alanna cxr reviewed rernal fxn improved tele sinus / lopez on dopamin for hr will consider acei in futuer if renal fxn improves and bp remain strable Subjective ROS Limited/Unobtainable: Yes Objective Last 24 Hour Vital Signs Date Time Temp Pulse Resp B/P (MAP) Pulse Ox O2 Delivery O2 Flow Rate FiO2 01/28/19 19:00 55 24 50 01/28/19 19:00 134/66 01/28/19 19:00 92 22 134/66 (88) 99 01/28/19 18:30 65 22 129/65 (86) 99 01/28/19 18:00 129/65 01/28/19 18:00 53 22 119/62 (81) 98 01/28/19 17:11 100 22 50 01/28/19 17:00 120 24 140/94 (109) 98 01/28/19 17:00 127/80 01/28/19 16:30 52 22 122/66 (84) 100 01/28/19 16:00 98.5 112 19 138/80 (99) 99 01/28/19 16:00 50 01/28/19 16:00 107 01/28/19 16:00 126/80 01/28/19 16:00 Mechanical Ventilator 01/28/19 15:29 97 24 50 01/28/19 15:00 89 24 145/85 (105) 100 01/28/19 15:00 120/70 01/28/19 14:00 52 22 128/59 (82) 100 01/28/19 14:00 127/63 01/28/19 13:02 84 22 50 01/28/19 13:00 70 20 146/72 (96) 99 01/28/19 13:00 113/62 01/28/19 12:00 50 01/28/19 12:00 86 01/28/19 12:00 122/79 01/28/19 12:00 98.5 63 21 131/67 (88) 98 01/28/19 12:00 Mechanical Ventilator 01/28/19 11:30 73 21 137/61 (86) 99 01/28/19 11:00 115 16 132/93 (106) 100 01/28/19 11:00 137/61 01/28/19 10:57 122 24 50 01/28/19 10:30 57 22 123/55 (77) 97 01/28/19 10:00 113/79 01/28/19 10:00 79 19 130/68 (88) 92 01/28/19 09:30 90 22 113/79 (90) 95 01/28/19 09:00 90/59 01/28/19 09:00 47 22 90/50 (63) 95 01/28/19 08:39 48 22 30 01/28/19 08:30 48 22 91/52 (65) 96 01/28/19 08:00 58 01/28/19 08:00 30 01/28/19 08:00 97.7 57 16 109/69 (82) 97 01/28/19 08:00 Mechanical Ventilator 01/28/19 07:21 100 01/28/19 07:17 54 20 30 01/28/19 07:00 53 22 90/49 (63) 96 01/28/19 06:00 58 22 110/57 (74) 96 01/28/19 05:20 60 25 30 01/28/19 05:00 56 18 111/61 (78) 95 01/28/19 04:00 56 01/28/19 04:00 Mechanical Ventilator 01/28/19 04:00 30 01/28/19 04:00 97.6 56 22 107/55 (72) 95 01/28/19 03:17 66 24 30 01/28/19 03:00 71 18 114/66 (82) 97 01/28/19 02:00 56 22 108/60 (76) 98 01/28/19 01:30 49 22 30 01/28/19 01:00 49 22 97/58 (71) 94 01/28/19 00:00 Mechanical Ventilator 01/28/19 00:00 98.2 53 28 110/58 (75) 94 01/28/19 00:00 53 01/27/19 23:23 59 22 30 01/27/19 23:00 60 25 108/58 (75) 96 01/27/19 22:00 60 30 108/56 (73) 95 01/27/19 21:00 72 27 111/61 (78) 97 01/27/19 21:00 111/61 01/27/19 20:55 75 24 30 General Appearance: on vent, patient on isolation Neck: supple Cardiovascular: normal rate, bradycardia - borderline Respiratory/Chest: rhonchi - bilaterally Abdomen: normal bowel sounds, non tender, soft Extremities: no swelling Intake and Output 01/27/19 01/28/19 19:00 07:00 Intake Total 890 ml 713.8 ml Output Total 830 ml 465 ml Balance 60 ml 248.8 ml Free Water 120 ml 50 ml IV Total 380 ml 168.8 ml Tube Feeding 390 ml 495 ml Output Urine Total 830 ml 465 ml Laboratory Tests Test 01/27/19 20:38 01/28/19 04:00 01/28/19 04:45 01/28/19 10:18 Amikacin Level Trough 3.7 ug/mL (4.0-8.0) L Urine Eosinophils None seen (NONE SEEN) White Blood Count 12.6 K/UL (4.8-10.8) H Red Blood Count 3.23 M/UL (4.70-6.10) L Hemoglobin 9.8 G/DL (14.2-18.0) L Hematocrit 30.1 % (42.0-52.0) L Mean Corpuscular Volume 93 FL (80-99) Mean Corpuscular Hemoglobin 30.4 PG (27.0-31.0) Mean Corpuscular Hemoglobin Concent 32.6 G/DL (32.0-36.0) Red Cell Distribution Width 13.6 % (11.6-14.8) Platelet Count 202 K/UL (150-450) Mean Platelet Volume 5.8 FL (6.5-10.1) L Neutrophils (%) (Auto) 80.8 % (45.0-75.0) H Lymphocytes (%) (Auto) 13.2 % (20.0-45.0) L Monocytes (%) (Auto) 5.8 % (1.0-10.0) Eosinophils (%) (Auto) 0.0 % (0.0-3.0) Basophils (%) (Auto) 0.3 % (0.0-2.0) Sodium Level 143 MMOL/L (136-145) Potassium Level 4.3 MMOL/L (3.5-5.1) Chloride Level 109 MMOL/L (98-107) H Carbon Dioxide Level 31 MMOL/L (21-32) Anion Gap 3 mmol/L (5-15) L Blood Urea Nitrogen 25 mg/dL (7-18) H Creatinine 1.5 MG/DL (0.55-1.30) H Estimat Glomerular Filtration Rate 46.5 mL/min (>60) Glucose Level 153 MG/DL (74-106) H Calcium Level 7.5 MG/DL (8.5-10.1) L Phosphorus Level 2.4 MG/DL (2.5-4.9) L Magnesium Level 2.0 MG/DL (1.8-2.4) Total Bilirubin 0.2 MG/DL (0.2-1.0) Aspartate Amino Transf (AST/SGOT) 52 U/L (15-37) H Alanine Aminotransferase (ALT/SGPT) 44 U/L (12-78) Alkaline Phosphatase 99 U/L (46-116) Total Protein 5.9 G/DL (6.4-8.2) L Albumin 1.7 G/DL (3.4-5.0) L Globulin 4.2 g/dL Albumin/Globulin Ratio 0.4 (1.0-2.7) L Random Vancomycin Level 16.9 ug/mL Arterial Blood pH 7.483 (7.350-7.450) Arterial Blood Partial Pressure CO2 36.2 mmHg (35.0-45.0) Arterial Blood Partial Pressure O2 55.1 mmHg (75.0-100.0) L Arterial Blood HCO3 26.5 mmol/L (22.0-26.0) H Arterial Blood Oxygen Saturation 88.6 % (95-100) *L Arterial Blood Base Excess 3.2 (-2-2) H Kvng Test Positive Sammy Helm MD Jan 28, 2019 20:13
--- NOTE | 2019-01-28 20:28 | NUR ---
NURSE NOTES: SEEN THE PATIENT BY DR. SCHAEFER.
[2019-01-28] MEDS: Norepinephrine Bitartrate 8 MG in D5W 500ml 492 ML IV SCH (21:00)
[2019-01-28] MEDS: Miralax 17gm pkt ORAL PRN (21:39)
--- NOTE | 2019-01-28 22:10 | NUR ---
NURSE NOTES: REPOSITIONED, RELEASED RESTRAINTS AND REAPPLIED FOR SAFETY.
[2019-01-28] MEDS: Ertapenem 1 GM in NS 55 ML IV SCH (23:09)
[2019-01-29] VITALS (41 sets, daily range): BP systolic 107–147; BP diastolic 57–96
--- NOTE | 2019-01-29 | NUR ---
NURSE NOTES: ORAL CARE AND REPOSITIONED, PATIENT TRIED TO TOUCH ENDOTUBE, SECURED RESTRAINTS, WILL CONTINUE TO MONITOR.
--- NOTE | 2019-01-29 02:00 | NUR ---
NURSE NOTES: NO PAIN OR DISTRESS NOTED, VSS STABLE ON DOPAMINE 8MCG/KG/MIN.
--- NOTE | 2019-01-29 03:40 | NUR ---
NURSE NOTES: MORNING CARE AND ORAL CARE WAS DONE, NO BOWEL MOVEMENT STATUS.
[2019-01-29] MEDS: Hydrocortisone 100mg Inj IV SCH ×3 (05:43→22:32)
[2019-01-29] MEDS: NovoLOG Insulin Flexpen SUBQ SCH ×4 (05:44→23:57)
[2019-01-29 05:48] LABS: HEMATOCRIT 39.1 % (42.0-52.0); HEMOGLOBIN 12.8 G/DL (14.2-18.0); MEAN CORPUSCULAR VOLUME 92 FL (80-99); PLATELET COUNT 279 K/UL (150-450); RED BLOOD COUNT 4.23 M/UL (4.70-6.10); RED CELL DISTRIBUTION WIDTH 13.8 % (11.6-14.8)
--- NOTE | 2019-01-29 06:00 | NUR ---
NURSE NOTES: HELD FEEDING SINCE 0400AM DUE TO WEANING PROTOCOLS, NO ACUTE DISTRESS NOTED AT THIS SHIFT.
[2019-01-29 06:18] LABS: ALANINE AMINOTRANSFERASE 48 U/L (12-78); ALBUMIN/GLOBULIN RATIO 0.4 (1.0-2.7); ALKALINE PHOSPHATASE 124 U/L (46-116); ANION GAP 10 mmol/L (5-15); ASPARTATE AMINO TRANSFERASE 46 U/L (15-37); BILIRUBIN,TOTAL 0.3 MG/DL (0.2-1.0); BLOOD UREA NITROGEN 21 mg/dL (7-18); CARBON DIOXIDE 27 MMOL/L (21-32); CHLORIDE 109 MMOL/L (98-107); CREATININE 1.3 MG/DL (0.55-1.30); POTASSIUM 3.6 MMOL/L (3.5-5.1); SODIUM 146 MMOL/L (136-145)
[2019-01-29 06:19] LABS: PHOSPHORUS 3.1 MG/DL (2.5-4.9)
--- NOTE | 2019-01-29 06:55 | NUR ---
RESPIRATORY NOTE: received pt orally intubated with ETT 7.5 placed 25cm at the lip. no resp distress noted on current vent settings. pt presents small amounts of thick, white secretions when sxn'd. etCO2 monitor attached with reading of 24. ETT is secured via anchor fast with no visible redness or skin wounds. will attempt to wean later this morning and cont to monitor. alarms are set and audible with ambu bag at bedside.
--- NOTE | 2019-01-29 07:10 | NUR ---
HAND-OFF: Report given to EUGENIA LIRA.
[2019-01-29] MEDS ORDERED: Vancomycin 1gm/D5W 275ml IVPB ONE ×2 (08:00)
--- NOTE | 2019-01-29 08:00 | NUR ---
NURSE NOTES: Received change of shift report from Jalen RN. Pt is awake, withdraws to pain. Pt is orally intubated, ETT 7.5 at 26cm left lipline, with vent settings, AC 22, VT 500, Peep 5.0, FIO2 50% with 100% O2Sat and bilateral diminished lung sounds. patient monitor displays SR, heart rate in the 80's while pt is maintained on Dopamine 8mcg/kg/min via central line on right femoral site. Abdomen is round, soft, nontender to touch with hypoactive bowel sounds. Pt has orogastric tube with feeding Glucerna 1.2 currently on hold for possible weaning if pt can be titrated off of Dopamine. Costello catheter is present, draining clear/yellow urine. Pt is on P200 pressure releasing mattress, with head of bed at 30 degrees, and bilateral lower extremities elevated on pillows. Pt has bilateral soft wrist restraints to prevent self extubation, and pulling of the central femoral line, as pt is observed reaching for the ET tube and IV lines. Skin integrity at restraint site is within normal limits. Will continue to monitor and follow plan of care.
--- NOTE | 2019-01-29 08:11 | Infectious Diseases Prog Note ---
Assessment/Plan Assessment/Plan 68yo gentleman with PMH below presents with fever(100.1 is highest recorded in transfer packet) and worsened congestion from SNF. In the ED, pt was placed on oxygen then BiPAP but ultimately intubated. ID consulted for antimicrobial recommendation. Tmax 100.1 at senior care, SP Leukocytosis, uptrending, hydrocortisone from 01/25 Lactic acidosis, SP Shock, was on levophed, titrated off, but now on dopamine Likely PNA COPD? CHF? thick secretions per nurse flu swab negative 01/24 CXR: Extensive opacities within upper lobes demonstrated. In addition there is generalized interstitial densities throughout both lung craig. 01/25 CXR: Bilateral infiltrates appear fairly extensive but unchanged. TTE with EF 30-35% 01/25 sputum cx: MRSA 01/25 urine legionella ag: P 01/27 CXR: Extensive infiltrates bilaterally. Some degree of a superimposed interstitial edema has improved since the last exam. Endotracheal tube and NG tube remain in satisfactory in position. 01/28 CXR: Extensive bilateral infiltrates are again demonstrated without change. Tubes and lines are stable. 01/28 sputum cx: P Possible UTI? new mcmahon placed in ED 01/25 UA 15-20 WBC 01/25 Ucx: NG Renal US: Nonobstructive stones in the left kidney demonstrated. Bilateral renal cysts. Limited evaluation due to body habitus. r/o bacteremia 01/25 BCx: ngtd No diarrhea HIV test negative MRSA screen positive RLE skin graft b/l LE heel pressure ulcers and sacral ulcer Tobacco abuse COPD HTN Kidney cancer OA CKD Anemia Schizophrenia PVD CHF Plan: continue ertapenem, amikacin and vancomycin #5 pending repeat cx Azithromycin #2 for atypicals SP cefepime #1 SP flagyl #1 SP vancomycin #1 f/u BCx f/u 01/28 repeat sputum cx given desat urine legionella Thank you for this consult. [facility] will continue to follow the patient with you. Subjective Allergies: Coded Allergies: No Known Allergies (Unverified , 01/24/19) Subjective Afebrile. Yesterday started on dopamine and FiO2 increased to 50%. Today WBC worse. FiO2 down to 40% and is tolerating weaning. dopamine still at 8 Objective Vital Signs Last 24 Hour Vital Signs Date Time Temp Pulse Resp B/P (MAP) Pulse Ox O2 Delivery O2 Flow Rate FiO2 01/29/19 08:03 40 01/29/19 07:00 135/77 01/29/19 07:00 73 27 135/77 (96) 100 01/29/19 06:50 75 22 50 01/29/19 06:30 70 21 137/69 (91) 100 01/29/19 06:00 67 23 128/74 (92) 99 01/29/19 06:00 128/74 01/29/19 05:30 84 22 134/67 (89) 98 01/29/19 05:10 84 22 50 01/29/19 05:00 58 22 133/66 (88) 98 01/29/19 05:00 133/66 01/29/19 04:30 83 23 134/86 (102) 98 01/29/19 04:00 98.2 69 23 131/77 (95) 98 01/29/19 04:00 50 01/29/19 04:00 131/77 01/29/19 04:00 Mechanical Ventilator 01/29/19 03:30 84 23 132/80 (97) 98 01/29/19 03:02 62 22 50 01/29/19 03:00 107/72 01/29/19 03:00 90 22 107/72 (84) 93 01/29/19 02:59 91 01/29/19 02:30 76 11 132/86 (101) 99 01/29/19 02:00 123/69 01/29/19 02:00 83 18 123/96 (105) 100 01/29/19 01:58 61 24 50 01/29/19 01:30 53 31 126/67 (86) 99 01/29/19 01:00 124/66 01/29/19 01:00 57 23 124/66 (85) 98 01/29/19 00:30 58 32 129/72 (91) 98 01/29/19 00:00 98.3 73 32 131/73 (92) 98 01/29/19 00:00 50 01/29/19 00:00 131/73 01/29/19 00:00 Mechanical Ventilator 01/28/19 23:30 74 40 130/71 (90) 97 01/28/19 23:30 86 22 50 01/28/19 23:23 81 01/28/19 23:00 129/85 01/28/19 23:00 70 23 129/85 (100) 98 01/28/19 22:30 76 21 134/81 (98) 98 01/28/19 22:00 87 20 131/79 (96) 98 01/28/19 22:00 131/79 01/28/19 21:40 126/80 01/28/19 21:30 96 22 126/80 (95) 100 01/28/19 21:29 96 24 50 01/28/19 21:00 99 22 118/78 (91) 98 01/28/19 21:00 118/78 01/28/19 21:00 126/80 01/28/19 20:30 90 22 119/77 (91) 98 01/28/19 20:00 Mechanical Ventilator 01/28/19 20:00 98.4 57 22 118/63 (81) 100 01/28/19 20:00 50 01/28/19 20:00 118/63 01/28/19 19:30 88 23 126/85 (99) 98 01/28/19 19:28 79 01/28/19 19:00 55 24 50 01/28/19 19:00 134/66 01/28/19 19:00 92 22 134/66 (88) 99 01/28/19 18:30 65 22 129/65 (86) 99 01/28/19 18:00 129/65 01/28/19 18:00 53 22 119/62 (81) 98 01/28/19 17:11 100 22 50 01/28/19 17:00 120 24 140/94 (109) 98 01/28/19 17:00 127/80 01/28/19 16:30 52 22 122/66 (84) 100 01/28/19 16:00 98.5 112 19 138/80 (99) 99 01/28/19 16:00 50 01/28/19 16:00 107 01/28/19 16:00 126/80 01/28/19 16:00 Mechanical Ventilator 01/28/19 15:29 97 24 50 01/28/19 15:00 89 24 145/85 (105) 100 01/28/19 15:00 120/70 01/28/19 14:00 52 22 128/59 (82) 100 01/28/19 14:00 127/63 01/28/19 13:02 84 22 50 01/28/19 13:00 70 20 146/72 (96) 99 01/28/19 13:00 113/62 01/28/19 12:00 50 01/28/19 12:00 86 01/28/19 12:00 122/79 01/28/19 12:00 98.5 63 21 131/67 (88) 98 01/28/19 12:00 Mechanical Ventilator 01/28/19 11:30 73 21 137/61 (86) 99 01/28/19 11:00 115 16 132/93 (106) 100 01/28/19 11:00 137/61 01/28/19 10:57 122 24 50 01/28/19 10:30 57 22 123/55 (77) 97 01/28/19 10:00 113/79 01/28/19 10:00 79 19 130/68 (88) 92 01/28/19 09:30 90 22 113/79 (90) 95 01/28/19 09:00 90/59 01/28/19 09:00 47 22 90/50 (63) 95 01/28/19 08:39 48 22 30 01/28/19 08:30 48 22 91/52 (65) 96 Height (Feet): 5 Height (Inches): 6.00 Weight (Pounds): 158 Objective Gen: NAD HEENT: anicteric sclera. ETT CV: RRR. Resp: coarse. equal chest rise. Abd: soft. normoactive Bs+ Neuro: sedated Skin: RLE skin graft Laboratory Tests Test 01/28/19 10:18 01/29/19 04:45 01/29/19 07:55 Arterial Blood pH 7.483 (7.350-7.450) 7.448 (7.350-7.450) Arterial Blood Partial Pressure CO2 36.2 mmHg (35.0-45.0) 36.6 mmHg (35.0-45.0) Arterial Blood Partial Pressure O2 55.1 mmHg (75.0-100.0) L 98.5 mmHg (75.0-100.0) Arterial Blood HCO3 26.5 mmol/L (22.0-26.0) H 24.8 mmol/L (22.0-26.0) Arterial Blood Oxygen Saturation 88.6 % (95-100) *L 97.2 % (95-100) Arterial Blood Base Excess 3.2 (-2-2) H 1.0 (-2-2) Kvng Test Positive Positive White Blood Count 20.0 K/UL (4.8-10.8) #H Red Blood Count 4.23 M/UL (4.70-6.10) L Hemoglobin 12.8 G/DL (14.2-18.0) #L Hematocrit 39.1 % (42.0-52.0) L Mean Corpuscular Volume 92 FL (80-99) Mean Corpuscular Hemoglobin 30.2 PG (27.0-31.0) Mean Corpuscular Hemoglobin Concent 32.7 G/DL (32.0-36.0) Red Cell Distribution Width 13.8 % (11.6-14.8) Platelet Count 279 K/UL (150-450) Mean Platelet Volume 5.2 FL (6.5-10.1) L Neutrophils (%) (Auto) % (45.0-75.0) Lymphocytes (%) (Auto) % (20.0-45.0) Monocytes (%) (Auto) % (1.0-10.0) Eosinophils (%) (Auto) % (0.0-3.0) Basophils (%) (Auto) % (0.0-2.0) Neutrophils % (Manual) Pending Lymphocytes % (Manual) Pending Platelet Estimate Pending Platelet Morphology Pending Sodium Level 146 MMOL/L (136-145) H Potassium Level 3.6 MMOL/L (3.5-5.1) Chloride Level 109 MMOL/L (98-107) H Carbon Dioxide Level 27 MMOL/L (21-32) Anion Gap 10 mmol/L (5-15) Blood Urea Nitrogen 21 mg/dL (7-18) H Creatinine 1.3 MG/DL (0.55-1.30) Estimat Glomerular Filtration Rate 54.9 mL/min (>60) Glucose Level 170 MG/DL (74-106) H Uric Acid 5.3 MG/DL (2.6-7.2) Calcium Level 8.0 MG/DL (8.5-10.1) L Phosphorus Level 3.1 MG/DL (2.5-4.9) Magnesium Level 1.8 MG/DL (1.8-2.4) Total Bilirubin 0.3 MG/DL (0.2-1.0) Aspartate Amino Transf (AST/SGOT) 46 U/L (15-37) H Alanine Aminotransferase (ALT/SGPT) 48 U/L (12-78) Alkaline Phosphatase 124 U/L (46-116) H Total Protein 7.1 G/DL (6.4-8.2) Albumin 2.0 G/DL (3.4-5.0) L Globulin 5.1 g/dL Albumin/Globulin Ratio 0.4 (1.0-2.7) L Random Vancomycin Level 17.2 ug/mL Current Medications Medications (Trade) Dose Ordered Sig/Ricardo Route PRN Reason Start Time Stop Time Status Last Admin Dose Admin Acetaminophen (Tylenol) 650 mg Q4H PRN ORAL fever 01/24/19 20:00 02/23/19 19:59 Albuterol/ Ipratropium (Albuterol/ Ipratropium) 3 ml Q4H PRN HHN Shortness of Breath 01/24/19 20:00 01/29/19 19:59 Amikacin Protocol (Amikacin pharmacy to dose) 1 ea DAILY PRN MISC PER RX PROTOCOL 01/25/19 20:45 02/24/19 20:44 Amikacin Sulfate 950 mg/Sodium Chloride 113.8 ml @ 113.8 mls/ hr Q36H IV 01/26/19 10:00 02/02/19 09:59 01/27/19 22:10 Ascorbic Acid (Vitamin C) 250 mg TWICE A DAY ORAL 01/27/19 18:00 02/26/19 17:59 01/28/19 18:01 Chlorhexidine Gluconate (Roseanna-Hex 2%) 1 applic DAILY@2000 TOPIC 01/25/19 20:00 02/24/19 19:59 01/28/19 19:39 Dextrose (Dextrose 50%) 25 ml Q30M PRN IV Hypoglycemia 01/25/19 19:00 02/24/19 18:59 Dextrose (Dextrose 50%) 50 ml Q30M PRN IV Hypoglycemia 01/25/19 19:00 02/24/19 18:59 Dopamine HCl/ Dextrose 250 ml @ 0 mls/hr Q24H IV 01/28/19 10:45 02/27/19 10:44 01/28/19 21:40 Ertapenem 1 gm/ Sodium Chloride 55 ml @ 110 mls/hr Q24H IV 01/24/19 23:00 01/29/19 22:59 01/28/19 23:09 Heparin Sodium (Porcine) (Heparin 5000 units/ml) 5,000 units EVERY 12 HOURS SUBQ 01/24/19 21:00 02/23/19 20:59 01/28/19 20:37 Hydrocortisone (Solu-CORTEF) 100 mg EVERY 8 HOURS IV 01/25/19 11:00 02/24/19 10:59 01/29/19 05:43 Insulin Aspart (NovoLOG) EVERY 6 HOURS SUBQ 01/26/19 00:00 02/25/19 00:00 01/29/19 05:44 Lorazepam (Ativan 2mg/ml 1ml) 2 mg Q2H PRN IV For Anxiety 01/24/19 20:00 01/31/19 19:59 01/28/19 16:12 Morphine Sulfate (Morphine Sulfate) 4 mg Q4H PRN IVP Severe Pain (Pain Scale 7-10) 01/24/19 20:00 01/31/19 19:59 Norepinephrine Bitartrate 8 mg/ Dextrose 500 ml @ 0 mls/hr Q24H IV 01/24/19 21:00 02/23/19 20:14 01/26/19 11:00 Pantoprazole (Protonix) 40 mg DAILY IVP 01/25/19 09:00 02/24/19 08:59 01/28/19 09:19 Polyethylene Glycol (Miralax) 17 gm DAILYPRN PRN ORAL Constipation 01/24/19 20:00 02/23/19 19:59 01/28/19 21:39 Potassium Chloride (K-Dur) 40 meq TWICE A DAY NG 01/27/19 11:45 02/26/19 11:44 01/28/19 18:01 Sodium Chloride 1,000 ml @ 125 mls/hr Q8H IV 01/28/19 12:00 02/27/19 11:59 01/29/19 03:58 Vancomycin HCl (Vanco rx to dose) 1 ea DAILY PRN MISC . 01/25/19 06:15 02/24/19 06:14 Vancomycin HCl 1 gm/Dextrose 275 ml @ 183.708 mls/hr NOW ONCE IVPB 01/29/19 08:00 01/29/19 09:29 Pili Lenz MD Jan 29, 2019 08:11
[2019-01-29] MEDS: Pantoprazole Inj IVP SCH (08:46)
[2019-01-29] MEDS: Ascorbic Acid 500mg tab ORAL SCH ×2 (08:46→18:07)
[2019-01-29] MEDS: Azithromycin 250mg tab ORAL SCH (08:46)
[2019-01-29] MEDS: Amikacin 950 MG in NS 110 ML IV SCH (08:47)
[2019-01-29] MEDS: Heparin 5000 units/ml inj SUBQ SCH ×2 (08:48→20:57)
--- NOTE | 2019-01-29 08:54 | NUR ---
RESPIRATORY NOTE: placed pt on CPAP PS8 fio2 40%. no resp distress noted. pt tolerating well. RN notified. will cont to monitor
--- NOTE | 2019-01-29 09:00 | NUR ---
NURSE NOTES: AM meds were administered. Oral care was done. Pt was repositioned in bed. Pt was seen by Dr Anthony. Per , no need for weaning while pt is still on Dopamine. RT at bedside, and pt is placed back on AC mode, with 100% O2Sat.
[2019-01-29] MEDS: DOPamine 400mg/250ml 250 ML IV SCH ×2 (09:06→20:56)
--- NOTE | 2019-01-29 09:34 | General Progress Note ---
Assessment/Plan Problem List: (1) Renal failure (ARF), acute on chronic ICD Codes: N17.9 - Acute kidney failure, unspecified; N18.9 - Chronic kidney disease, unspecified SNOMED: 713984282 (2) Sepsis ICD Codes: A41.9 - Sepsis, unspecified organism SNOMED: 37900253 Qualifiers: Qualified Codes: A41.9 - Sepsis, unspecified organism (3) Malignant neoplasm of right kidney ICD Codes: C64.1 - Malignant neoplasm of right kidney, except renal pelvis SNOMED: 369875050 (4) Acute respiratory failure ICD Codes: J96.00 - Acute respiratory failure, unspecified whether with hypoxia or hypercapnia SNOMED: 00501963 (5) PVD (peripheral vascular disease) ICD Codes: I73.9 - Peripheral vascular disease, unspecified SNOMED: 213901974 Status: unchanged Assessment/Plan: vent abx wound care cbc bmp am ltach eval Subjective Constitutional: Reports: weakness Allergies: Coded Allergies: No Known Allergies (Unverified , 01/24/19) All Systems: reviewed and negative except above Subjective intubated in icu Objective Last 24 Hour Vital Signs Date Time Temp Pulse Resp B/P (MAP) Pulse Ox O2 Delivery O2 Flow Rate FiO2 01/29/19 09:06 122/70 01/29/19 08:51 96 01/29/19 08:51 82 21 40 40 01/29/19 08:03 40 01/29/19 07:00 135/77 01/29/19 07:00 73 27 135/77 (96) 100 01/29/19 06:50 75 22 50 01/29/19 06:30 70 21 137/69 (91) 100 01/29/19 06:00 67 23 128/74 (92) 99 01/29/19 06:00 128/74 01/29/19 05:30 84 22 134/67 (89) 98 01/29/19 05:10 84 22 50 01/29/19 05:00 58 22 133/66 (88) 98 01/29/19 05:00 133/66 01/29/19 04:30 83 23 134/86 (102) 98 01/29/19 04:00 98.2 69 23 131/77 (95) 98 01/29/19 04:00 50 01/29/19 04:00 131/77 01/29/19 04:00 Mechanical Ventilator 01/29/19 03:30 84 23 132/80 (97) 98 01/29/19 03:02 62 22 50 01/29/19 03:00 107/72 01/29/19 03:00 90 22 107/72 (84) 93 01/29/19 02:59 91 01/29/19 02:30 76 11 132/86 (101) 99 01/29/19 02:00 123/69 01/29/19 02:00 83 18 123/96 (105) 100 01/29/19 01:58 61 24 50 01/29/19 01:30 53 31 126/67 (86) 99 01/29/19 01:00 124/66 01/29/19 01:00 57 23 124/66 (85) 98 01/29/19 00:30 58 32 129/72 (91) 98 01/29/19 00:00 98.3 73 32 131/73 (92) 98 01/29/19 00:00 50 01/29/19 00:00 131/73 01/29/19 00:00 Mechanical Ventilator 01/28/19 23:30 74 40 130/71 (90) 97 01/28/19 23:30 86 22 50 01/28/19 23:23 81 01/28/19 23:00 129/85 01/28/19 23:00 70 23 129/85 (100) 98 01/28/19 22:30 76 21 134/81 (98) 98 01/28/19 22:00 87 20 131/79 (96) 98 01/28/19 22:00 131/79 01/28/19 21:40 126/80 01/28/19 21:30 96 22 126/80 (95) 100 01/28/19 21:29 96 24 50 01/28/19 21:00 99 22 118/78 (91) 98 01/28/19 21:00 118/78 01/28/19 21:00 126/80 01/28/19 20:30 90 22 119/77 (91) 98 01/28/19 20:00 Mechanical Ventilator 01/28/19 20:00 98.4 57 22 118/63 (81) 100 01/28/19 20:00 50 01/28/19 20:00 118/63 01/28/19 19:30 88 23 126/85 (99) 98 01/28/19 19:28 79 01/28/19 19:00 55 24 50 01/28/19 19:00 134/66 01/28/19 19:00 92 22 134/66 (88) 99 01/28/19 18:30 65 22 129/65 (86) 99 01/28/19 18:00 129/65 01/28/19 18:00 53 22 119/62 (81) 98 01/28/19 17:11 100 22 50 01/28/19 17:00 120 24 140/94 (109) 98 01/28/19 17:00 127/80 01/28/19 16:30 52 22 122/66 (84) 100 01/28/19 16:00 98.5 112 19 138/80 (99) 99 01/28/19 16:00 50 01/28/19 16:00 107 01/28/19 16:00 126/80 01/28/19 16:00 Mechanical Ventilator 01/28/19 15:29 97 24 50 01/28/19 15:00 89 24 145/85 (105) 100 01/28/19 15:00 120/70 01/28/19 14:00 52 22 128/59 (82) 100 01/28/19 14:00 127/63 01/28/19 13:02 84 22 50 01/28/19 13:00 70 20 146/72 (96) 99 01/28/19 13:00 113/62 01/28/19 12:00 50 01/28/19 12:00 86 01/28/19 12:00 122/79 01/28/19 12:00 98.5 63 21 131/67 (88) 98 01/28/19 12:00 Mechanical Ventilator 01/28/19 11:30 73 21 137/61 (86) 99 01/28/19 11:00 115 16 132/93 (106) 100 01/28/19 11:00 137/61 01/28/19 10:57 122 24 50 01/28/19 10:30 57 22 123/55 (77) 97 01/28/19 10:00 113/79 01/28/19 10:00 79 19 130/68 (88) 92 Intake and Output 01/28/19 01/29/19 18:59 06:59 Intake Total 987.172 ml 2272.184 ml Output Total 480 ml 1010 ml Balance 507.172 ml 1262.184 ml Free Water 180 ml IV Total 807.172 ml 1812.184 ml Tube Feeding 0 ml 360 ml Other 100 ml Output Urine Total 480 ml 1010 ml Laboratory Tests 01/28/19 10:18: Arterial Blood pH 7.483H, Arterial Blood Partial Pressure CO2 36.2, Arterial Blood Partial Pressure O2 55.1L, Arterial Blood HCO3 26.5H, Arterial Blood Oxygen Saturation 88.6*L, Arterial Blood Base Excess 3.2H, Kvng Test Positive 01/29/19 04:45: White Blood Count 20.0#H, Red Blood Count 4.23L, Hemoglobin 12.8#L, Hematocrit 39.1L, Mean Corpuscular Volume 92, Mean Corpuscular Hemoglobin 30.2, Mean Corpuscular Hemoglobin Concent 32.7, Red Cell Distribution Width 13.8, Platelet Count 279, Mean Platelet Volume 5.2L, Neutrophils (%) (Auto) , Lymphocytes (%) ( Auto) , Monocytes (%) (Auto) , Eosinophils (%) (Auto) , Basophils (%) (Auto) , Differential Total Cells Counted 100, Neutrophils % (Manual) 87H, Lymphocytes % (Manual) 11L, Monocytes % (Manual) 2, Eosinophils % (Manual) 0, Basophils % ( Manual) 0, Band Neutrophils 0, Platelet Estimate Adequate, Platelet Morphology Normal, Sodium Level 146H, Potassium Level 3.6, Chloride Level 109H, Carbon Dioxide Level 27, Anion Gap 10, Blood Urea Nitrogen 21H, Creatinine 1.3, Estimat Glomerular Filtration Rate 54.9, Glucose Level 170H, Uric Acid 5.3, Calcium Level 8.0L, Phosphorus Level 3.1, Magnesium Level 1.8, Total Bilirubin 0.3, Aspartate Amino Transf (AST/SGOT) 46H, Alanine Aminotransferase (ALT/SGPT) 48, Alkaline Phosphatase 124H, Total Protein 7.1, Albumin 2.0L, Globulin 5.1, Albumin/Globulin Ratio 0.4L, Random Vancomycin Level 17.2 01/29/19 07:55: Arterial Blood pH 7.448, Arterial Blood Partial Pressure CO2 36.6, Arterial Blood Partial Pressure O2 98.5, Arterial Blood HCO3 24.8, Arterial Blood Oxygen Saturation 97.2, Arterial Blood Base Excess 1.0, Kvng Test Positive Height (Feet): 5 Height (Inches): 6.00 Weight (Pounds): 158 General Appearance: lethargic EENT: normal ENT inspection Neck: normal alignment Cardiovascular: normal peripheral pulses, normal rate, regular rhythm Respiratory/Chest: chest wall non-tender, lungs clear, normal breath sounds Abdomen: normal bowel sounds, non tender, soft Extremities: normal inspection Edema: no edema noted Arm (L), no edema noted Arm (R), no edema noted Leg (L), no edema noted Leg (R), no edema noted Pedal (L), no edema noted Pedal (R), no edema noted Generalized Neurologic: motor weakness Skin: normal pigmentation, warm/dry Corey Short DO Jan 29, 2019 09:34
--- NOTE | 2019-01-29 10:02 | Nephrology Progress Note ---
Assessment/Plan Problem List: (1) Renal failure (ARF), acute on chronic (2) Acute respiratory failure (3) Septic shock (4) Cardiomyopathy Assessment Renal failure- Likely acute on Chronic- Cr lower Acute respiratory failure- intubated on Vent Septic Shock- On pressors COPD PVD Schizophrenia Plan stop IV fluid renal dose dopamin for low HR K supplement down on hydration One dose IV Lasix mag and Phos and K supplement as needed 2D Echo Low Ej Fx - Global Hypokinesis Avoid nephrotoxics afterload reduction monitor renal parameters urine studies ADRIAN IMPRESSION: Nonobstructive stones in the left kidney demonstrated. Bilateral renal cysts. Subjective ROS Limited/Unobtainable: Yes Objective Objective Last 24 Hour Vital Signs Date Time Temp Pulse Resp B/P (MAP) Pulse Ox O2 Delivery O2 Flow Rate FiO2 01/29/19 09:06 122/70 01/29/19 08:51 96 01/29/19 08:51 82 21 40 40 01/29/19 08:03 40 01/29/19 07:00 135/77 01/29/19 07:00 73 27 135/77 (96) 100 01/29/19 06:50 75 22 50 01/29/19 06:30 70 21 137/69 (91) 100 01/29/19 06:00 67 23 128/74 (92) 99 01/29/19 06:00 128/74 01/29/19 05:30 84 22 134/67 (89) 98 01/29/19 05:10 84 22 50 01/29/19 05:00 58 22 133/66 (88) 98 01/29/19 05:00 133/66 01/29/19 04:30 83 23 134/86 (102) 98 01/29/19 04:00 98.2 69 23 131/77 (95) 98 01/29/19 04:00 50 01/29/19 04:00 131/77 01/29/19 04:00 Mechanical Ventilator 01/29/19 03:30 84 23 132/80 (97) 98 01/29/19 03:02 62 22 50 01/29/19 03:00 107/72 01/29/19 03:00 90 22 107/72 (84) 93 01/29/19 02:59 91 01/29/19 02:30 76 11 132/86 (101) 99 01/29/19 02:00 123/69 01/29/19 02:00 83 18 123/96 (105) 100 01/29/19 01:58 61 24 50 01/29/19 01:30 53 31 126/67 (86) 99 01/29/19 01:00 124/66 01/29/19 01:00 57 23 124/66 (85) 98 01/29/19 00:30 58 32 129/72 (91) 98 01/29/19 00:00 98.3 73 32 131/73 (92) 98 01/29/19 00:00 50 01/29/19 00:00 131/73 01/29/19 00:00 Mechanical Ventilator 01/28/19 23:30 74 40 130/71 (90) 97 01/28/19 23:30 86 22 50 01/28/19 23:23 81 01/28/19 23:00 129/85 01/28/19 23:00 70 23 129/85 (100) 98 01/28/19 22:30 76 21 134/81 (98) 98 01/28/19 22:00 87 20 131/79 (96) 98 01/28/19 22:00 131/79 01/28/19 21:40 126/80 01/28/19 21:30 96 22 126/80 (95) 100 01/28/19 21:29 96 24 50 01/28/19 21:00 99 22 118/78 (91) 98 01/28/19 21:00 118/78 01/28/19 21:00 126/80 01/28/19 20:30 90 22 119/77 (91) 98 01/28/19 20:00 Mechanical Ventilator 01/28/19 20:00 98.4 57 22 118/63 (81) 100 01/28/19 20:00 50 01/28/19 20:00 118/63 01/28/19 19:30 88 23 126/85 (99) 98 01/28/19 19:28 79 01/28/19 19:00 55 24 50 01/28/19 19:00 134/66 01/28/19 19:00 92 22 134/66 (88) 99 01/28/19 18:30 65 22 129/65 (86) 99 01/28/19 18:00 129/65 01/28/19 18:00 53 22 119/62 (81) 98 01/28/19 17:11 100 22 50 01/28/19 17:00 120 24 140/94 (109) 98 01/28/19 17:00 127/80 01/28/19 16:30 52 22 122/66 (84) 100 01/28/19 16:00 98.5 112 19 138/80 (99) 99 01/28/19 16:00 50 01/28/19 16:00 107 01/28/19 16:00 126/80 01/28/19 16:00 Mechanical Ventilator 01/28/19 15:29 97 24 50 01/28/19 15:00 89 24 145/85 (105) 100 01/28/19 15:00 120/70 01/28/19 14:00 52 22 128/59 (82) 100 01/28/19 14:00 127/63 01/28/19 13:02 84 22 50 01/28/19 13:00 70 20 146/72 (96) 99 01/28/19 13:00 113/62 01/28/19 12:00 50 01/28/19 12:00 86 01/28/19 12:00 122/79 01/28/19 12:00 98.5 63 21 131/67 (88) 98 01/28/19 12:00 Mechanical Ventilator 01/28/19 11:30 73 21 137/61 (86) 99 01/28/19 11:00 115 16 132/93 (106) 100 01/28/19 11:00 137/61 01/28/19 10:57 122 24 50 01/28/19 10:30 57 22 123/55 (77) 97 01/28/19 10:00 113/79 01/28/19 10:00 79 19 130/68 (88) 92 Intake and Output 01/28/19 01/29/19 18:59 06:59 Intake Total 987.172 ml 2272.184 ml Output Total 480 ml 1010 ml Balance 507.172 ml 1262.184 ml Free Water 180 ml IV Total 807.172 ml 1812.184 ml Tube Feeding 0 ml 360 ml Other 100 ml Output Urine Total 480 ml 1010 ml Laboratory Tests 01/28/19 10:18: Arterial Blood pH 7.483H, Arterial Blood Partial Pressure CO2 36.2, Arterial Blood Partial Pressure O2 55.1L, Arterial Blood HCO3 26.5H, Arterial Blood Oxygen Saturation 88.6*L, Arterial Blood Base Excess 3.2H, Kvng Test Positive 01/29/19 04:45: White Blood Count 20.0#H, Red Blood Count 4.23L, Hemoglobin 12.8#L, Hematocrit 39.1L, Mean Corpuscular Volume 92, Mean Corpuscular Hemoglobin 30.2, Mean Corpuscular Hemoglobin Concent 32.7, Red Cell Distribution Width 13.8, Platelet Count 279, Mean Platelet Volume 5.2L, Neutrophils (%) (Auto) , Lymphocytes (%) ( Auto) , Monocytes (%) (Auto) , Eosinophils (%) (Auto) , Basophils (%) (Auto) , Differential Total Cells Counted 100, Neutrophils % (Manual) 87H, Lymphocytes % (Manual) 11L, Monocytes % (Manual) 2, Eosinophils % (Manual) 0, Basophils % ( Manual) 0, Band Neutrophils 0, Platelet Estimate Adequate, Platelet Morphology Normal, Sodium Level 146H, Potassium Level 3.6, Chloride Level 109H, Carbon Dioxide Level 27, Anion Gap 10, Blood Urea Nitrogen 21H, Creatinine 1.3, Estimat Glomerular Filtration Rate 54.9, Glucose Level 170H, Uric Acid 5.3, Calcium Level 8.0L, Phosphorus Level 3.1, Magnesium Level 1.8, Total Bilirubin 0.3, Aspartate Amino Transf (AST/SGOT) 46H, Alanine Aminotransferase (ALT/SGPT) 48, Alkaline Phosphatase 124H, Total Protein 7.1, Albumin 2.0L, Globulin 5.1, Albumin/Globulin Ratio 0.4L, Random Vancomycin Level 17.2 01/29/19 07:55: Arterial Blood pH 7.448, Arterial Blood Partial Pressure CO2 36.6, Arterial Blood Partial Pressure O2 98.5, Arterial Blood HCO3 24.8, Arterial Blood Oxygen Saturation 97.2, Arterial Blood Base Excess 1.0, Kvng Test Positive Height (Feet): 5 Height (Inches): 6.00 Weight (Pounds): 158 General Appearance: no apparent distress EENT: other - vented Cardiovascular: normal rate Respiratory/Chest: decreased breath sounds Abdomen: distended Bienvenido Gonzalez MD Jan 29, 2019 10:02
--- NOTE | 2019-01-29 10:16 | Pulmonolgy Critical Care Note ---
Critical Care - Asmt/Plan Problems: (1) Acute respiratory failure (2) Septic shock (3) Systolic heart failure (4) Chronic kidney disease (5) Malignant neoplasm of right kidney (6) COPD (chronic obstructive pulmonary disease) (7) Schizophrenia Respiratory: monitor respiratory rate, adjust FIO2, CXR Cardiac: stop pressors, continue to monitor HR/BP Renal: F/U I&O Infectious Disease: continue antibiotics Gastrointestinal: continue feedings/current rate Endocrine: monitor blood sugar Hematologic: monitor H/H, transfuse if hgb<8.5 Neurologic: PRN Ativan, keep patient comfortable Time Spent (Minutes): 40 Notes Reviewed: outpatient interviewing clerk, cardio Discussed with: nurses, consultants, case management manageroutside sales account manager - Objective Last 24 Hour Vital Signs Date Time Temp Pulse Resp B/P (MAP) Pulse Ox O2 Delivery O2 Flow Rate FiO2 01/29/19 09:06 122/70 01/29/19 08:51 96 01/29/19 08:51 82 21 40 40 01/29/19 08:03 40 01/29/19 07:00 135/77 01/29/19 07:00 73 27 135/77 (96) 100 01/29/19 06:50 75 22 50 01/29/19 06:30 70 21 137/69 (91) 100 01/29/19 06:00 67 23 128/74 (92) 99 01/29/19 06:00 128/74 01/29/19 05:30 84 22 134/67 (89) 98 01/29/19 05:10 84 22 50 01/29/19 05:00 58 22 133/66 (88) 98 01/29/19 05:00 133/66 01/29/19 04:30 83 23 134/86 (102) 98 01/29/19 04:00 98.2 69 23 131/77 (95) 98 01/29/19 04:00 50 01/29/19 04:00 131/77 01/29/19 04:00 Mechanical Ventilator 01/29/19 03:30 84 23 132/80 (97) 98 01/29/19 03:02 62 22 50 01/29/19 03:00 107/72 01/29/19 03:00 90 22 107/72 (84) 93 01/29/19 02:59 91 01/29/19 02:30 76 11 132/86 (101) 99 01/29/19 02:00 123/69 01/29/19 02:00 83 18 123/96 (105) 100 01/29/19 01:58 61 24 50 01/29/19 01:30 53 31 126/67 (86) 99 01/29/19 01:00 124/66 01/29/19 01:00 57 23 124/66 (85) 98 01/29/19 00:30 58 32 129/72 (91) 98 01/29/19 00:00 98.3 73 32 131/73 (92) 98 01/29/19 00:00 50 01/29/19 00:00 131/73 01/29/19 00:00 Mechanical Ventilator 01/28/19 23:30 74 40 130/71 (90) 97 01/28/19 23:30 86 22 50 01/28/19 23:23 81 01/28/19 23:00 129/85 01/28/19 23:00 70 23 129/85 (100) 98 01/28/19 22:30 76 21 134/81 (98) 98 01/28/19 22:00 87 20 131/79 (96) 98 01/28/19 22:00 131/79 01/28/19 21:40 126/80 01/28/19 21:30 96 22 126/80 (95) 100 01/28/19 21:29 96 24 50 01/28/19 21:00 99 22 118/78 (91) 98 01/28/19 21:00 118/78 01/28/19 21:00 126/80 01/28/19 20:30 90 22 119/77 (91) 98 01/28/19 20:00 Mechanical Ventilator 01/28/19 20:00 98.4 57 22 118/63 (81) 100 01/28/19 20:00 50 01/28/19 20:00 118/63 01/28/19 19:30 88 23 126/85 (99) 98 01/28/19 19:28 79 01/28/19 19:00 55 24 50 01/28/19 19:00 134/66 01/28/19 19:00 92 22 134/66 (88) 99 01/28/19 18:30 65 22 129/65 (86) 99 01/28/19 18:00 129/65 01/28/19 18:00 53 22 119/62 (81) 98 01/28/19 17:11 100 22 50 01/28/19 17:00 120 24 140/94 (109) 98 01/28/19 17:00 127/80 01/28/19 16:30 52 22 122/66 (84) 100 01/28/19 16:00 98.5 112 19 138/80 (99) 99 01/28/19 16:00 50 01/28/19 16:00 107 01/28/19 16:00 126/80 01/28/19 16:00 Mechanical Ventilator 01/28/19 15:29 97 24 50 01/28/19 15:00 89 24 145/85 (105) 100 01/28/19 15:00 120/70 01/28/19 14:00 52 22 128/59 (82) 100 01/28/19 14:00 127/63 01/28/19 13:02 84 22 50 01/28/19 13:00 70 20 146/72 (96) 99 01/28/19 13:00 113/62 01/28/19 12:00 50 01/28/19 12:00 86 01/28/19 12:00 122/79 01/28/19 12:00 98.5 63 21 131/67 (88) 98 01/28/19 12:00 Mechanical Ventilator 01/28/19 11:30 73 21 137/61 (86) 99 01/28/19 11:00 115 16 132/93 (106) 100 01/28/19 11:00 137/61 01/28/19 10:57 122 24 50 01/28/19 10:30 57 22 123/55 (77) 97 Status: awake Condition: critical HEENT: atraumatic Neck: full ROM Lungs: clear Heart: HR/BP stable, regular Abdomen: soft Extremities: no C/C/E, edema Decubiti: location Micro: Microbiology Date/Time Source Procedure Growth Status 01/28/19 19:55 Sputum Gram Stain - Final Resulted 01/28/19 19:55 Sputum Sputum Culture Pending Resulted Accucheck: 159 Critical Care - Subjective ROS Limited/Unobtainable: Yes Interval Events: pt doesn't have any family member and doesn't have anybody to sing his consents. He is not capable of signing his consents. He needs a PICC line to receive iv abx. Condition: critical FI02: 40 Vent Support Breath Rate: 22 Vent Support Mode: CPAP Vent Tidal Volume: 500 Sputum Amount: Scant PEEP: 5.0 PIP: 14 Tube Feeding Amount: 0 I&O: Intake and Output 01/28/19 01/29/19 18:59 06:59 Intake Total 987.172 ml 2272.184 ml Output Total 480 ml 1010 ml Balance 507.172 ml 1262.184 ml Free Water 180 ml IV Total 807.172 ml 1812.184 ml Tube Feeding 0 ml 360 ml Other 100 ml Output Urine Total 480 ml 1010 ml CXR: extensive infiltrate ET-Tube: 7.5 ET Position: 25 Labs: Laboratory Tests Test 01/28/19 10:18 01/29/19 04:45 01/29/19 07:55 Arterial Blood pH 7.483 (7.350-7.450) 7.448 (7.350-7.450) Arterial Blood Partial Pressure CO2 36.2 mmHg (35.0-45.0) 36.6 mmHg (35.0-45.0) Arterial Blood Partial Pressure O2 55.1 mmHg (75.0-100.0) L 98.5 mmHg (75.0-100.0) Arterial Blood HCO3 26.5 mmol/L (22.0-26.0) H 24.8 mmol/L (22.0-26.0) Arterial Blood Oxygen Saturation 88.6 % (95-100) *L 97.2 % (95-100) Arterial Blood Base Excess 3.2 (-2-2) H 1.0 (-2-2) Kvng Test Positive Positive White Blood Count 20.0 K/UL (4.8-10.8) #H Red Blood Count 4.23 M/UL (4.70-6.10) L Hemoglobin 12.8 G/DL (14.2-18.0) #L Hematocrit 39.1 % (42.0-52.0) L Mean Corpuscular Volume 92 FL (80-99) Mean Corpuscular Hemoglobin 30.2 PG (27.0-31.0) Mean Corpuscular Hemoglobin Concent 32.7 G/DL (32.0-36.0) Red Cell Distribution Width 13.8 % (11.6-14.8) Platelet Count 279 K/UL (150-450) Mean Platelet Volume 5.2 FL (6.5-10.1) L Neutrophils (%) (Auto) % (45.0-75.0) Lymphocytes (%) (Auto) % (20.0-45.0) Monocytes (%) (Auto) % (1.0-10.0) Eosinophils (%) (Auto) % (0.0-3.0) Basophils (%) (Auto) % (0.0-2.0) Differential Total Cells Counted 100 Neutrophils % (Manual) 87 % (45-75) H Lymphocytes % (Manual) 11 % (20-45) L Monocytes % (Manual) 2 % (1-10) Eosinophils % (Manual) 0 % (0-3) Basophils % (Manual) 0 % (0-2) Band Neutrophils 0 % (0-8) Platelet Estimate Adequate Platelet Morphology Normal Sodium Level 146 MMOL/L (136-145) H Potassium Level 3.6 MMOL/L (3.5-5.1) Chloride Level 109 MMOL/L (98-107) H Carbon Dioxide Level 27 MMOL/L (21-32) Anion Gap 10 mmol/L (5-15) Blood Urea Nitrogen 21 mg/dL (7-18) H Creatinine 1.3 MG/DL (0.55-1.30) Estimat Glomerular Filtration Rate 54.9 mL/min (>60) Glucose Level 170 MG/DL (74-106) H Uric Acid 5.3 MG/DL (2.6-7.2) Calcium Level 8.0 MG/DL (8.5-10.1) L Phosphorus Level 3.1 MG/DL (2.5-4.9) Magnesium Level 1.8 MG/DL (1.8-2.4) Total Bilirubin 0.3 MG/DL (0.2-1.0) Aspartate Amino Transf (AST/SGOT) 46 U/L (15-37) H Alanine Aminotransferase (ALT/SGPT) 48 U/L (12-78) Alkaline Phosphatase 124 U/L (46-116) H Total Protein 7.1 G/DL (6.4-8.2) Albumin 2.0 G/DL (3.4-5.0) L Globulin 5.1 g/dL Albumin/Globulin Ratio 0.4 (1.0-2.7) L Random Vancomycin Level 17.2 ug/mL Ron Anthony MD Jan 29, 2019 10:16
[2019-01-29] MEDS ORDERED: Heparin1,000 units/500ml Premix(Conc:2 units/ml) IV PRN (10:30)
[2019-01-29] MEDS ORDERED: Lidocaine 1% Plain 30 ml INJ PRN (10:30)
--- NOTE | 2019-01-29 10:55 | NUR ---
*-* DISCHARGE PLANNING *-* PATIENT HAS BEEN REFERRED TO: [facility] P: [phone] [facility] F: [phone]
--- NOTE | 2019-01-29 11:24 | NUR ---
RADIOLOGY DEPT., CHEST X-RAY DONE.-P.DYE
--- NOTE | 2019-01-29 11:50 | Diagnostic Imaging Report ---
Indication: Dyspnea Comparison: 01/28/2019 A single view chest radiograph was obtained. Findings: Patchy interstitial/alveolar infiltrates demonstrated bilaterally. Heart size remains normal. Endotracheal tube is just above the cristina. NG tube tip and proximal port are both in the stomach. Graph impression: No change from the previous examination done one day earlier
--- NOTE | 2019-01-29 11:55 | NUR ---
RADIOLOGY NOTE: RIGHT UPPER EXTREMITY PICC PLACED.
--- NOTE | 2019-01-29 12:00 | NUR ---
NURSE NOTES: Pt is maintained on Dopamine drip at 8mcg/kg/min to maintain HR/SBP above 50's and 90. VS currently stable. Pt was seen by Dr Gonzalez. Order was noted, and IV fluid NS was discontinued. GT feeding is infusing at goal rate and pt is tolerating feeding well, no residual noted.
--- NOTE | 2019-01-29 13:00 | NUR ---
NURSE NOTES: PICC line was placed on right upper arm by radiologist, per Dr Anthony's order. Awaiting for xray and radiologist confirmation for correct placement.
--- NOTE | 2019-01-29 13:37 | NUR ---
Social Work This Sw received a consult to address end of life issues/decision making. Patient is currently in the ICU, confused and unable to make own decisions. Patient does not have a POLST on chart. This SW verified with Huseyin Frost that patient does not have any family or a decision maker. This Sw consulted with Dr. Galvez, Bioethics regarding code status/end of life decision making, who will review on Friday.
--- NOTE | 2019-01-29 13:45 | NUR ---
X RAY SERVICE TECHNICIANRADIOLOGY SUPERVISOR SI: RESP FAILURE ETT/VENT SUPPORT,SEPSIS T. 98.4 HR 56 RR 21 B/P 123/87 AC 22 TV 500 FIO2 50% PEEP 5 WBC 20.0 NA 146 BUN 21 AST 46 ALK PHOS 124 CXR=PATCHY INTERSTITIAL ALVEOLAR INFILTRATION IS: VANCO IV ERTAPENEM IV DOPAMINE GTT HEPARIN SUBC ICU STATUS
--- NOTE | 2019-01-29 14:09 | Diagnostic Imaging Report ---
Indication: supervisor intermediates venous access Findings: After the indications, procedure, risks, complications, and alternatives of the procedure were explained, written informed consent was obtained. The right upper extremity was prepped with alcohol. All elements of maximal sterile barrier technique were followed including usage of a cap, mask, sterile gown, sterile gloves, hand hygiene and a large sterile sheet. Sonographic evaluation of the upper extremity was performed demonstrating a patent and compressible basilic vein. Access was obtained under real-time ultrasound guidance (with utilization of sterile gel and sterile probe cover) and digital image was saved and archived. An .018 wire was introduced. Needle exchanged for a 5 Barb[place] peel-away sheath. Measurements were obtained. A 5 [place] dual-lumen Power PICC line catheter was cut to 35 cm and introduced over the wire. Peel-away sheath and wire were removed.Catheter was secured to the skin using 2-0 Prolene suture. Both ports aspirate and flush easily. Post procedure chest x-ray demonstrates good position of the PICC line catheter within the SVC. Impression: Successful placement of an upper extremity PICC line catheter
--- NOTE | 2019-01-29 15:42 | Surgery Progress Note ---
Surgery Progress Note Subjective Additional Comments picc line inserted leukocytosis h/h noted and okay exam unchanged ill appearing Dopa at 8 Objective Last 24 Hour Vital Signs Date Time Temp Pulse Resp B/P (MAP) Pulse Ox O2 Delivery O2 Flow Rate FiO2 01/29/19 15:00 81 33 130/73 (92) 97 01/29/19 14:39 84 23 50 01/29/19 14:30 78 21 131/75 (93) 99 01/29/19 14:00 72 20 113/65 (81) 96 01/29/19 13:30 72 22 129/67 (87) 96 01/29/19 13:00 63 22 125/70 (88) 97 01/29/19 12:41 56 22 50 01/29/19 12:00 98.4 56 21 123/57 (79) 95 01/29/19 12:00 40 01/29/19 12:00 83 01/29/19 12:00 Mechanical Ventilator 01/29/19 11:00 81 24 133/73 (93) 96 01/29/19 10:30 88 26 132/75 (94) 100 01/29/19 10:25 96 25 50 01/29/19 10:00 89 24 134/77 (96) 97 01/29/19 09:30 85 23 133/79 (97) 97 01/29/19 09:06 122/70 01/29/19 09:00 86 26 127/75 (92) 95 01/29/19 08:51 96 01/29/19 08:51 82 21 40 40 01/29/19 08:30 75 21 128/63 (84) 96 01/29/19 08:03 40 01/29/19 08:00 72 01/29/19 08:00 40 01/29/19 08:00 Mechanical Ventilator 01/29/19 08:00 98.4 56 23 131/64 (86) 99 01/29/19 07:00 135/77 01/29/19 07:00 73 27 135/77 (96) 100 01/29/19 06:50 75 22 50 01/29/19 06:30 70 21 137/69 (91) 100 01/29/19 06:00 67 23 128/74 (92) 99 01/29/19 06:00 128/74 01/29/19 05:30 84 22 134/67 (89) 98 01/29/19 05:10 84 22 50 01/29/19 05:00 58 22 133/66 (88) 98 01/29/19 05:00 133/66 01/29/19 04:30 83 23 134/86 (102) 98 01/29/19 04:00 98.2 69 23 131/77 (95) 98 01/29/19 04:00 50 01/29/19 04:00 131/77 01/29/19 04:00 Mechanical Ventilator 01/29/19 03:30 84 23 132/80 (97) 98 01/29/19 03:02 62 22 50 01/29/19 03:00 107/72 01/29/19 03:00 90 22 107/72 (84) 93 01/29/19 02:59 91 01/29/19 02:30 76 11 132/86 (101) 99 01/29/19 02:00 123/69 01/29/19 02:00 83 18 123/96 (105) 100 01/29/19 01:58 61 24 50 01/29/19 01:30 53 31 126/67 (86) 99 01/29/19 01:00 124/66 01/29/19 01:00 57 23 124/66 (85) 98 01/29/19 00:30 58 32 129/72 (91) 98 01/29/19 00:00 98.3 73 32 131/73 (92) 98 01/29/19 00:00 50 01/29/19 00:00 131/73 01/29/19 00:00 Mechanical Ventilator 01/28/19 23:30 74 40 130/71 (90) 97 01/28/19 23:30 86 22 50 01/28/19 23:23 81 01/28/19 23:00 129/85 01/28/19 23:00 70 23 129/85 (100) 98 01/28/19 22:30 76 21 134/81 (98) 98 01/28/19 22:00 87 20 131/79 (96) 98 01/28/19 22:00 131/79 01/28/19 21:40 126/80 01/28/19 21:30 96 22 126/80 (95) 100 01/28/19 21:29 96 24 50 01/28/19 21:00 99 22 118/78 (91) 98 01/28/19 21:00 118/78 01/28/19 21:00 126/80 01/28/19 20:30 90 22 119/77 (91) 98 01/28/19 20:00 Mechanical Ventilator 01/28/19 20:00 98.4 57 22 118/63 (81) 100 01/28/19 20:00 50 01/28/19 20:00 118/63 01/28/19 19:30 88 23 126/85 (99) 98 01/28/19 19:28 79 01/28/19 19:00 55 24 50 01/28/19 19:00 134/66 01/28/19 19:00 92 22 134/66 (88) 99 01/28/19 18:30 65 22 129/65 (86) 99 01/28/19 18:00 129/65 01/28/19 18:00 53 22 119/62 (81) 98 01/28/19 17:11 100 22 50 01/28/19 17:00 120 24 140/94 (109) 98 01/28/19 17:00 127/80 01/28/19 16:30 52 22 122/66 (84) 100 01/28/19 16:00 98.5 112 19 138/80 (99) 99 01/28/19 16:00 50 01/28/19 16:00 107 01/28/19 16:00 126/80 01/28/19 16:00 Mechanical Ventilator I&O Intake and Output 01/28/19 01/29/19 19:00 07:00 Intake Total 1133.604 ml 2272.184 ml Output Total 485 ml 1085 ml Balance 648.604 ml 1187.184 ml Free Water 180 ml IV Total 953.604 ml 1812.184 ml Tube Feeding 0 ml 360 ml Other 100 ml Output Urine Total 485 ml 1085 ml Dressing: other Wound: other Drains: other Cardiovascular: RSR Respiratory: decreased breath sounds Abdomen: soft, non-distended Extremities: no cyanosis, other Laboratory Tests Test 01/29/19 04:45 01/29/19 07:55 White Blood Count 20.0 K/UL (4.8-10.8) #H Red Blood Count 4.23 M/UL (4.70-6.10) L Hemoglobin 12.8 G/DL (14.2-18.0) #L Hematocrit 39.1 % (42.0-52.0) L Mean Corpuscular Volume 92 FL (80-99) Mean Corpuscular Hemoglobin 30.2 PG (27.0-31.0) Mean Corpuscular Hemoglobin Concent 32.7 G/DL (32.0-36.0) Red Cell Distribution Width 13.8 % (11.6-14.8) Platelet Count 279 K/UL (150-450) Mean Platelet Volume 5.2 FL (6.5-10.1) L Neutrophils (%) (Auto) % (45.0-75.0) Lymphocytes (%) (Auto) % (20.0-45.0) Monocytes (%) (Auto) % (1.0-10.0) Eosinophils (%) (Auto) % (0.0-3.0) Basophils (%) (Auto) % (0.0-2.0) Differential Total Cells Counted 100 Neutrophils % (Manual) 87 % (45-75) H Lymphocytes % (Manual) 11 % (20-45) L Monocytes % (Manual) 2 % (1-10) Eosinophils % (Manual) 0 % (0-3) Basophils % (Manual) 0 % (0-2) Band Neutrophils 0 % (0-8) Platelet Estimate Adequate Platelet Morphology Normal Sodium Level 146 MMOL/L (136-145) H Potassium Level 3.6 MMOL/L (3.5-5.1) Chloride Level 109 MMOL/L (98-107) H Carbon Dioxide Level 27 MMOL/L (21-32) Anion Gap 10 mmol/L (5-15) Blood Urea Nitrogen 21 mg/dL (7-18) H Creatinine 1.3 MG/DL (0.55-1.30) Estimat Glomerular Filtration Rate 54.9 mL/min (>60) Glucose Level 170 MG/DL (74-106) H Uric Acid 5.3 MG/DL (2.6-7.2) Calcium Level 8.0 MG/DL (8.5-10.1) L Phosphorus Level 3.1 MG/DL (2.5-4.9) Magnesium Level 1.8 MG/DL (1.8-2.4) Total Bilirubin 0.3 MG/DL (0.2-1.0) Aspartate Amino Transf (AST/SGOT) 46 U/L (15-37) H Alanine Aminotransferase (ALT/SGPT) 48 U/L (12-78) Alkaline Phosphatase 124 U/L (46-116) H Total Protein 7.1 G/DL (6.4-8.2) Albumin 2.0 G/DL (3.4-5.0) L Globulin 5.1 g/dL Albumin/Globulin Ratio 0.4 (1.0-2.7) L Random Vancomycin Level 17.2 ug/mL Arterial Blood pH 7.448 (7.350-7.450) Arterial Blood Partial Pressure CO2 36.6 mmHg (35.0-45.0) Arterial Blood Partial Pressure O2 98.5 mmHg (75.0-100.0) Arterial Blood HCO3 24.8 mmol/L (22.0-26.0) Arterial Blood Oxygen Saturation 97.2 % (95-100) Arterial Blood Base Excess 1.0 (-2-2) Kvng Test Positive Plan Problems: (1) Sepsis Assessment & Plan: afebrile, HD improving tachycardic leukocytosis lactic acidosis resolved ill appearing in ICU on support -IV fluids resuscitation -IV abx as per ID -trend labs -CXR noted -cont tube feeds -will follow with recs thank you (2) Septic shock (3) Wound, open Assessment & Plan: Patient presented on admission with multiple pressure injuries being identified. Non-blanching erythema without induration noted to sacrum ,Right and Left buttocks. Scattered areas that are darker and maroon in color noted within base of wound. Scrotum is also erythematous. Unstageable pressure injury noted to Left heel. Base of wound is 100% necrotic but soft. Erythematous margins with surrounding non-blanching erythema.(L)3.2cm x (W)3cm. no drainage Right heel is boggy with non-blanching erythema.. Keloid scar noted distal R tibia. Partial thickness ulcer noted to dorsal R foot. Base of wound is moist and viable. Small amt serous exudate noted. Scattered small dry scabs noted to dorsal R foot. Tx.Plan: Swab Dorsal R foot and R heel with Betadine. Cover with Optifoam drsg. Change every 3 days and prn. Apply Moisture Barrier Paste to buttocks. Cover sacrum with Optifoam drsg. Change every 3 days and prn. Apply Cavilon Skin Barrier to L heel.Cover with Optifoam drsg. Change every 7 days and prn. APM/JELLY mattress. Reposition at least every 2hours or as tolerated. Off-load heels with pillow. Nutritional Optimization Will monitor while in critical condition DAILY ESTIMATED NEEDS: Needs based on Critical care, sepsis, wounds 69kg 22-30 kcals/kg 6109-1749 total kcals 1.25-2 g protein/kg 86-138 g total protein 25-30 mL/kg 0808-1880 total fluid mLs NUTRITION DIAGNOSIS: Increased kcal and pro needs r/t sepsis, wound healing, and underweight status as evidenced by pt w respiratory distress now intubated, critically elev WBC (*29.7), elev BG (200's), w/ multiple wounds (refer to eval), pt is @88% if Shushan Body Weight. CURRENT TF: Glucerna 1.2 @30ml ENTERAL NUTRITION RECOMMENDATIONS: VITAL AF 1.2 @60ml/hr x24 hrs to provide 1440ml, 1728 kcal, 108g pro, 1168ml free H2O - WITH HEMODYNAMIC STABILITY, rec TF change to VITAL 1.2 to better meet est needs. Start @20ml/hr for 6 hrs. Advance as tolerated 10ml/hr q4-6 hrs to goal. - Flush per . HOB over 30 degrees If pt remains on pressor support, rec trophic feeds of Vital 1.2 @5-10ml/hr to maintain gut integrity. ------ ADDITIONAL RECOMMENDATIONS: 1) Per SNF: HT 71 inches, 152 lbs (69.1kg) 2) Wound care: Add DANIELA in 4oz water BID via OGT + VIT C 250mg BID (f/up w/ WC specialist) 3) Monitor lytes daily, replete as needed 4) Daily calibrated bed scale wtMauricio Harrison Jan 29, 2019 15:42
--- NOTE | 2019-01-29 16:00 | NUR ---
NURSE NOTES: Pt was repositioned. Oral care was done. VS stable while pt is maintained on Dopamine drip via central line.
--- NOTE | 2019-01-29 18:00 | NUR ---
NURSE NOTES: Femoral TLC central line was removed per MD order, and dressing placed on site, bleeding stopped. Right upper arm PICC is being used now, per radiologist note from xray confirming correct placement. Pt was cleaned, gown, bed linens were changed. Pt was repositioned, with bilateral extremities elevated on pillows. Pt is restless, attempting to reach ET tube, bilateral soft wrist restraints remain on pt to prevent self extubation. VS stable while pt remains on Dopamine at 8mcg/kg/min.
--- NOTE | 2019-01-29 19:30 | NUR ---
HAND-OFF: Report given to Yesy BELLO. Endorsed plan of care.
--- NOTE | 2019-01-29 19:31 | NUR ---
NURSE NOTES: Endorsement received from EUGENIA Bond. Opens eyes spontaneously, withdraws to pain. Does not track. Patient sinus rhythm on the monitor. Orally intubated, ET 7.5. 26 lipline. AC 22 VT 500, PEEP 5, 40%. OGT, placement rechecked per auscultation. On Glucerna 1.2, 45ml/hr. No residual. Right upper arm PICC. On Dopamine 8mcg/kg/min. IV pump parameters rechecked. Costello catheter in place. On P200 mattress. Head of bed elevated. Bed locked, in low position. Bed alarm on.
[2019-01-29] MEDS ORDERED: Dyna-Hex 2% Top Sol 2oz TOPIC SCH (20:00)
[2019-01-29] MEDS: Dyna-Hex 2% Top Sol 2oz TOPIC SCH (20:01)
[2019-01-29] MEDS: Norepinephrine Bitartrate 8 MG in D5W 500ml 492 ML IV SCH (20:59)
--- NOTE | 2019-01-29 21:00 | NUR ---
NURSE NOTES: Secretions suctioned. Patient repositioned.
--- NOTE | 2019-01-29 22:30 | NUR ---
NURSE NOTES: Patient tachycardic, 115bpm, SBP at 130s. Dopamine decreased to 6 mcg/kg/min
[2019-01-29] MEDS: Ertapenem 1 GM in NS 55 ML IV SCH (22:32)
--- NOTE | 2019-01-29 23:00 | NUR ---
NURSE NOTES: Heart rate at 55bpm, dopamine increased back to 8mcg/kg/min.
[2019-01-30] VITALS (52 sets, daily range): BP systolic 82–146; BP diastolic 49–101
--- NOTE | 2019-01-30 01:00 | NUR ---
NURSE NOTES: Patient asleep. Tolerating feeding. Head of bed kept elevated. Afebrile.
--- NOTE | 2019-01-30 03:00 | NUR ---
NURSE NOTES: Bed bath, oral care, change of linens done.
--- NOTE | 2019-01-30 05:00 | NUR ---
NURSE NOTES: Patient maintaining heart rate60 and above on dopamine at 8mcg/kg/min
[2019-01-30] MEDS: NovoLOG Insulin Flexpen SUBQ SCH ×4 (05:35→23:48)
[2019-01-30] MEDS: Hydrocortisone 100mg Inj IV SCH ×3 (05:38→22:29)
[2019-01-30] MEDS: Miralax 17gm pkt ORAL PRN (06:07)
[2019-01-30 06:09] LABS: HEMATOCRIT 38.8 % (42.0-52.0); HEMOGLOBIN 12.9 G/DL (14.2-18.0); MEAN CORPUSCULAR VOLUME 92 FL (80-99); PLATELET COUNT 297 K/UL (150-450); RED BLOOD COUNT 4.21 M/UL (4.70-6.10); RED CELL DISTRIBUTION WIDTH 13.3 % (11.6-14.8); WHITE BLOOD COUNT 19.7 K/UL (4.8-10.8)
--- NOTE | 2019-01-30 06:22 | NUR ---
NURSE NOTES: Blood sugar checked and covered as per sliding scale. PRN Miralax given.
--- NOTE | 2019-01-30 07:12 | NUR ---
HAND-OFF: Report given to EUGENIA Calvert.
--- NOTE | 2019-01-30 07:20 | NUR ---
NURSE NOTES: Report received from EUGENIA Winter
[2019-01-30 07:21] LABS: PHOSPHORUS 2.6 MG/DL (2.5-4.9)
[2019-01-30 07:23] LABS: ALANINE AMINOTRANSFERASE 42 U/L (12-78); ALBUMIN 1.9 G/DL (3.4-5.0); ALBUMIN/GLOBULIN RATIO 0.4 (1.0-2.7); ALKALINE PHOSPHATASE 117 U/L (46-116); ANION GAP 7 mmol/L (5-15); ASPARTATE AMINO TRANSFERASE 38 U/L (15-37); BILIRUBIN,TOTAL 0.3 MG/DL (0.2-1.0); BLOOD UREA NITROGEN 18 mg/dL (7-18); CALCIUM 7.5 MG/DL (8.5-10.1); CARBON DIOXIDE 32 MMOL/L (21-32); CHLORIDE 104 MMOL/L (98-107); CREATININE 1.2 MG/DL (0.55-1.30); POTASSIUM 3.5 MMOL/L (3.5-5.1); SODIUM 143 MMOL/L (136-145)
[2019-01-30] MEDS ORDERED: Morphine Sulfate 4mg/ml Inj (IV USE ONLY) IVP PRN (08:00)
[2019-01-30] MEDS ORDERED: LORazepam Inj 2mg/ml 1ml IV PRN (08:00)
[2019-01-30] MEDS ORDERED: Albuterol/Ipratropium 3ml neb HHN PRN (08:00)
[2019-01-30] MEDS: Ascorbic Acid 500mg tab ORAL SCH ×2 (08:07→17:17)
[2019-01-30] MEDS: Pantoprazole Inj IVP SCH (08:09)
[2019-01-30] MEDS: Azithromycin 250mg tab ORAL SCH (08:11)
[2019-01-30] MEDS: Heparin 5000 units/ml inj SUBQ SCH ×2 (08:15→21:06)
--- NOTE | 2019-01-30 08:15 | NUR ---
NURSE NOTES: Patient awake when received, restless will follow up with medication.Awake and non verbal, no apparent acute distress.Orally intubated with current settings AC 22 Vt 500 FiO2 40% Peep 5.Picc line right UA running dopamine at 8mcg/hr. Sacral redness and left heel unstageable pressure injury with dark tissues, right heel DTI , wound clean and dry and protocol treatment done.Dressing changed and picture taken.Costello catheter in place draining yellow urine with no sediments.Abdomen soft and non distended with bowel sounds present in all 4 quadrants.Will continue close monitoring
[2019-01-30] MEDS ORDERED: Vancomycin 1gm/D5W 275ml IVPB SCH ×2 (09:00)
[2019-01-30] MEDS: DOPamine 400mg/250ml 250 ML IV SCH ×2 (09:03→21:05)
--- NOTE | 2019-01-30 10:12 | General Progress Note ---
Assessment/Plan Problem List: (1) Renal failure (ARF), acute on chronic ICD Codes: N17.9 - Acute kidney failure, unspecified; N18.9 - Chronic kidney disease, unspecified SNOMED: 072581020 (2) Sepsis ICD Codes: A41.9 - Sepsis, unspecified organism SNOMED: 75133186 Qualifiers: Qualified Codes: A41.9 - Sepsis, unspecified organism (3) Malignant neoplasm of right kidney ICD Codes: C64.1 - Malignant neoplasm of right kidney, except renal pelvis SNOMED: 467047951 (4) Acute respiratory failure ICD Codes: J96.00 - Acute respiratory failure, unspecified whether with hypoxia or hypercapnia SNOMED: 20088979 (5) PVD (peripheral vascular disease) ICD Codes: I73.9 - Peripheral vascular disease, unspecified SNOMED: 008878347 Status: unchanged Assessment/Plan: vent abx wound care cbc bmp am ltach eval Subjective Constitutional: Reports: weakness Allergies: Coded Allergies: No Known Allergies (Unverified , 01/24/19) All Systems: reviewed and negative except above Subjective intubated in icu Objective Last 24 Hour Vital Signs Date Time Temp Pulse Resp B/P (MAP) Pulse Ox O2 Delivery O2 Flow Rate FiO2 01/30/19 09:37 65 22 40 01/30/19 09:03 53/37 01/30/19 07:03 75 22 40 01/30/19 07:00 60 22 123/68 (86) 97 01/30/19 06:30 66 22 126/53 (77) 97 01/30/19 06:00 69 20 109/57 (74) 96 01/30/19 06:00 109/57 01/30/19 05:30 62 21 117/56 (76) 97 01/30/19 05:12 78 22 40 01/30/19 05:00 129/73 01/30/19 05:00 80 23 129/73 (91) 96 01/30/19 04:30 78 18 125/79 (94) 96 01/30/19 04:00 98.2 75 19 132/77 (95) 97 01/30/19 04:00 Mechanical Ventilator 01/30/19 04:00 132/77 01/30/19 04:00 40 01/30/19 04:00 65 01/30/19 03:30 78 18 132/81 (98) 97 01/30/19 03:29 77 22 40 01/30/19 03:00 82 18 126/75 (92) 01/30/19 03:00 126/75 01/30/19 02:30 103 25 123/77 (92) 01/30/19 02:00 84 21 136/79 (98) 97 01/30/19 02:00 136/79 01/30/19 01:30 69 21 130/75 (93) 97 01/30/19 01:00 128/80 01/30/19 01:00 70 21 128/80 (96) 96 01/30/19 00:50 86 26 40 01/30/19 00:30 87 20 136/82 (100) 96 01/30/19 00:00 73 01/30/19 00:00 98.3 91 22 139/86 (103) 96 01/30/19 00:00 139/86 01/30/19 00:00 Mechanical Ventilator 01/30/19 00:00 40 01/29/19 23:30 91 20 137/86 (103) 97 01/29/19 23:16 82 23 40 01/29/19 23:00 58 21 122/69 (86) 95 01/29/19 23:00 122/69 01/29/19 22:45 83 18 113/60 (77) 95 01/29/19 22:30 116 15 138/95 (109) 96 01/29/19 22:00 82 20 138/76 (96) 97 01/29/19 22:00 138/76 01/29/19 21:30 85 22 123/83 (96) 96 01/29/19 21:00 116/66 01/29/19 21:00 78 22 116/66 (83) 96 01/29/19 20:59 131/72 01/29/19 20:56 131/72 01/29/19 20:37 85 24 97 Mechanical Ventilator 40 01/29/19 20:36 85 24 40 01/29/19 20:30 78 23 131/72 (91) 96 01/29/19 20:00 84 01/29/19 20:00 98.1 80 20 147/67 (93) 97 01/29/19 20:00 40 01/29/19 20:00 Mechanical Ventilator 01/29/19 20:00 147/67 01/29/19 19:28 63 23 40 01/29/19 19:00 77 19 128/60 (82) 97 01/29/19 19:00 123/67 01/29/19 18:00 79 22 123/67 (85) 97 01/29/19 18:00 131/69 01/29/19 17:00 98.4 84 19 131/69 (89) 98 01/29/19 17:00 132/77 01/29/19 16:49 86 22 40 01/29/19 16:00 84 01/29/19 16:00 40 01/29/19 16:00 82 22 126/72 (90) 98 01/29/19 16:00 130/71 01/29/19 16:00 Mechanical Ventilator 01/29/19 15:00 81 33 130/73 (92) 97 01/29/19 15:00 130/73 01/29/19 14:39 84 23 40 01/29/19 14:30 78 21 131/75 (93) 99 01/29/19 14:00 72 20 113/65 (81) 96 01/29/19 14:00 131/75 01/29/19 13:30 72 22 129/67 (87) 96 01/29/19 13:00 113/65 01/29/19 13:00 63 22 125/70 (88) 97 01/29/19 12:41 56 22 40 01/29/19 12:00 98.4 56 21 123/57 (79) 95 01/29/19 12:00 40 01/29/19 12:00 83 01/29/19 12:00 125/70 01/29/19 12:00 Mechanical Ventilator 01/29/19 11:00 81 24 133/73 (93) 96 01/29/19 11:00 134/77 01/29/19 10:30 88 26 132/75 (94) 100 01/29/19 10:25 96 25 40 Intake and Output 01/29/19 01/30/19 18:59 06:59 Intake Total 1310.984 ml 996.826 ml Output Total 660 ml 1340 ml Balance 650.984 ml -343.174 ml Free Water 150 ml IV Total 995.984 ml 306.826 ml Tube Feeding 315 ml 540 ml Output Urine Total 660 ml 1340 ml Laboratory Tests 01/30/19 04:00: Arterial Blood pH 7.549H, Arterial Blood Partial Pressure CO2 34.2L, Arterial Blood Partial Pressure O2 82.9, Arterial Blood HCO3 29.2H, Arterial Blood Oxygen Saturation 96.1, Arterial Blood Base Excess 6.8H, Kvng Test Positive 01/30/19 04:55: White Blood Count 19.7H, Red Blood Count 4.21L, Hemoglobin 12.9L, Hematocrit 38.8L, Mean Corpuscular Volume 92, Mean Corpuscular Hemoglobin 30.5, Mean Corpuscular Hemoglobin Concent 33.2, Red Cell Distribution Width 13.3, Platelet Count 297, Mean Platelet Volume 5.0L, Neutrophils (%) (Auto) , Lymphocytes (%) ( Auto) , Monocytes (%) (Auto) , Eosinophils (%) (Auto) , Basophils (%) (Auto) , Neutrophils % (Manual) [Pending], Lymphocytes % (Manual) [Pending], Platelet Estimate [Pending], Platelet Morphology [Pending], Sodium Level 143, Potassium Level 3.5, Chloride Level 104, Carbon Dioxide Level 32, Anion Gap 7, Blood Urea Nitrogen 18, Creatinine 1.2, Estimat Glomerular Filtration Rate > 60, Glucose Level 174H, Calcium Level 7.5L, Phosphorus Level 2.6, Magnesium Level 1.6L, Total Bilirubin 0.3, Aspartate Amino Transf (AST/SGOT) 38H, Alanine Aminotransferase (ALT/SGPT) 42, Alkaline Phosphatase 117H, Total Protein 6.5, Albumin 1.9L, Globulin 4.6, Albumin/Globulin Ratio 0.4L Height (Feet): 5 Height (Inches): 6.00 Weight (Pounds): 155 General Appearance: lethargic EENT: normal ENT inspection Neck: normal alignment Cardiovascular: normal peripheral pulses, normal rate, regular rhythm Respiratory/Chest: chest wall non-tender, lungs clear, normal breath sounds Abdomen: normal bowel sounds, non tender, soft Extremities: normal inspection Edema: no edema noted Arm (L), no edema noted Arm (R), no edema noted Leg (L), no edema noted Leg (R), no edema noted Pedal (L), no edema noted Pedal (R), no edema noted Generalized Neurologic: motor weakness Skin: normal pigmentation, warm/dry Corey Short DO Jan 30, 2019 10:12
--- NOTE | 2019-01-30 10:24 | NUR ---
NURSE NOTES: Seen by Dr Gonzalez and will follow up with new orders.Magnesium covered, turned and repositioned for skin management.Will continue to monitor
--- NOTE | 2019-01-30 10:30 | Diagnostic Imaging Report ---
EXAM: XR Chest, 1 View CLINICAL HISTORY: DYSPNEA TECHNIQUE: Frontal view of the chest. COMPARISON: Chest radiograph on 01 29 2019 FINDINGS: Hardware: Endotracheal tube terminates in the region of the lower thoracic aorta above the cristina. Enteric tube courses past the diaphragm and out of the [id number], but the sidehole is seen near the GE junction. Lungs pleura: Overall similar patchy opacities in the lungs, most prominently in the right upper lung and right mid and lower lung. Probable small bilateral pleural effusions. Mild elevation of the right hemidiaphragm. Heart mediastinum: Atherosclerotic calcifications in the aorta. No cardiomegaly. Soft tissues: Unremarkable. Bones: No acute fracture. Degenerative changes of the acromioclavicular joints and spine. Upper abdomen: Normal. IMPRESSION: 1. Overall similar patchy opacities in the lungs, most prominently in the right upper lung and right mid and lower lung. Probable small bilateral pleural effusions. 2. Endotracheal tube terminates in the region of the lower thoracic aorta above the cristina. Enteric tube courses past the diaphragm and out of the [id number], but the sidehole is seen near the GE junction.
--- NOTE | 2019-01-30 10:56 | Pulmonolgy Critical Care Note ---
Critical Care - Asmt/Plan Assessment/Plan: ASSESSMENT Acute respiratory failure requiring intubation Septic shock Probably pneumonia Acute on chronic renal failure Anemia Sinus bradycardia Systolic dysfunction Cardiomyopathy with EF 30 to 35% COPD Diabetes mellitus Multiple pressure injury present on admission Schizophrenia Hypo Mg PLAN OF CARE ICU vent support , pulmonary toilet ABG noted this am , decrease AC rate to 20 fup with CXR and ABG wean as tolerated when ready off Levophed now on dopamine /not renal dose- 8 mcg/kg/min ; HR stabilized on current dose, titrate to wean abx as per ID Echo with EF 30 to 35% global LV hypokinesis creat trending down ; monitor renal parameters, lytes ; correct electrolytes as needed ; avoid nephrotoxic replace Mg DVT prophylaxis BS management with SSI monitor H&H with goal to keep Hgb above 7 wound care as per surgeon recommendation strict aspiration precaution ; tube feeding supportive care case discussed and evaluated by supervising physician Critical Care - Objective Last 24 Hour Vital Signs Date Time Temp Pulse Resp B/P (MAP) Pulse Ox O2 Delivery O2 Flow Rate FiO2 01/30/19 10:30 60 22 127/69 (88) 97 01/30/19 10:00 79 36 135/76 (95) 97 01/30/19 09:37 65 22 40 01/30/19 09:30 61 23 130/68 (88) 98 01/30/19 09:03 53/37 01/30/19 09:00 70 22 128/70 (89) 94 01/30/19 08:30 63 22 128/70 (89) 98 01/30/19 08:15 62 22 129/72 (91) 97 01/30/19 08:00 98.8 80 20 133/77 (95) 98 01/30/19 07:03 75 22 40 01/30/19 07:00 60 22 123/68 (86) 97 01/30/19 06:30 66 22 126/53 (77) 97 01/30/19 06:00 69 20 109/57 (74) 96 01/30/19 06:00 109/57 01/30/19 05:30 62 21 117/56 (76) 97 01/30/19 05:12 78 22 40 01/30/19 05:00 129/73 01/30/19 05:00 80 23 129/73 (91) 96 11/16/19 04:30 78 18 125/79 (94) 96 01/30/19 04:00 98.2 75 19 132/77 (95) 97 01/30/19 04:00 Mechanical Ventilator 01/30/19 04:00 132/77 01/30/19 04:00 40 01/30/19 04:00 65 01/30/19 03:30 78 18 132/81 (98) 97 01/30/19 03:29 77 22 40 01/30/19 03:00 82 18 126/75 (92) 01/30/19 03:00 126/75 01/30/19 02:30 103 25 123/77 (92) 01/30/19 02:00 84 21 136/79 (98) 97 01/30/19 02:00 136/79 01/30/19 01:30 69 21 130/75 (93) 97 01/30/19 01:00 128/80 01/30/19 01:00 70 21 128/80 (96) 96 01/30/19 00:50 86 26 40 01/30/19 00:30 87 20 136/82 (100) 96 01/30/19 00:00 73 01/30/19 00:00 98.3 91 22 139/86 (103) 96 01/30/19 00:00 139/86 01/30/19 00:00 Mechanical Ventilator 01/30/19 00:00 40 01/29/19 23:30 91 20 137/86 (103) 97 01/29/19 23:16 82 23 40 01/29/19 23:00 58 21 122/69 (86) 95 01/29/19 23:00 122/69 01/29/19 22:45 83 18 113/60 (77) 95 01/29/19 22:30 116 15 138/95 (109) 96 01/29/19 22:00 82 20 138/76 (96) 97 01/29/19 22:00 138/76 01/29/19 21:30 85 22 123/83 (96) 96 01/29/19 21:00 116/66 01/29/19 21:00 78 22 116/66 (83) 96 01/29/19 20:59 131/72 01/29/19 20:56 131/72 01/29/19 20:37 85 24 97 Mechanical Ventilator 40 01/29/19 20:36 85 24 40 01/29/19 20:30 78 23 131/72 (91) 96 01/29/19 20:00 84 01/29/19 20:00 98.1 80 20 147/67 (93) 97 01/29/19 20:00 40 01/29/19 20:00 Mechanical Ventilator 01/29/19 20:00 147/67 01/29/19 19:28 63 23 40 01/29/19 19:00 77 19 128/60 (82) 97 01/29/19 19:00 123/67 01/29/19 18:00 79 22 123/67 (85) 97 01/29/19 18:00 131/69 01/29/19 17:00 98.4 84 19 131/69 (89) 98 01/29/19 17:00 132/77 01/29/19 16:49 86 22 40 01/29/19 16:00 84 01/29/19 16:00 40 01/29/19 16:00 82 22 126/72 (90) 98 01/29/19 16:00 130/71 01/29/19 16:00 Mechanical Ventilator 01/29/19 15:00 81 33 130/73 (92) 97 01/29/19 15:00 130/73 01/29/19 14:39 84 23 40 01/29/19 14:30 78 21 131/75 (93) 99 01/29/19 14:00 72 20 113/65 (81) 96 01/29/19 14:00 131/75 01/29/19 13:30 72 22 129/67 (87) 96 01/29/19 13:00 113/65 01/29/19 13:00 63 22 125/70 (88) 97 01/29/19 12:41 56 22 40 01/29/19 12:00 98.4 56 21 123/57 (79) 95 01/29/19 12:00 40 01/29/19 12:00 83 01/29/19 12:00 125/70 01/29/19 12:00 Mechanical Ventilator 01/29/19 11:00 81 24 133/73 (93) 96 01/29/19 11:00 134/77 Status: sedated Condition: critical HEENT: atraumatic, normocephalic, other - OP with ET in place, intact, OP with TF Lungs: rhonchi - few isoalted Heart: HR/BP stable Abdomen: soft, non-tender, other - [place] Extremities: no C/C/E Micro: Microbiology Date/Time Source Procedure Growth Status 01/28/19 19:55 Sputum Gram Stain - Final Resulted 01/28/19 19:55 Sputum Culture - Preliminary Staphylococcus Aureus Resulted Accucheck: 180 Critical Care - Subjective ROS Limited/Unobtainable: Yes Interval Events: off Levophed started on Dopamine renal dose for low HR, HR stable, BP stable, however now on 8 mcg/kg/min still with leukocytosis, no fever no signs of resp distress ABG noted with resp alkalosis Mg-1.6 Condition: critical IV Access: PICC - RUE intact EKG Rhythm: Sinus Rhythm FI02: 40 Vent Support Breath Rate: 22 Vent Support Mode: AC Vent Tidal Volume: 500 Sputum Amount: Scant PEEP: 5.0 PIP: 25 Drips: Dopamine gtt 8 mcg/kg/min Tube Feeding Amount: 45 I&O: Intake and Output 01/29/19 01/30/19 18:59 06:59 Intake Total 1310.984 ml 996.826 ml Output Total 660 ml 1340 ml Balance 650.984 ml -343.174 ml Free Water 150 ml IV Total 995.984 ml 306.826 ml Tube Feeding 315 ml 540 ml Output Urine Total 660 ml 1340 ml CXR: CXR 01/30 1. Overall similar patchy opacities in the lungs, most prominently in the right upper lung and right mid and lower lung. Probable small bilateral pleural effusions. 2. Endotracheal tube terminates in the region of the lower thoracic aorta above the cristina. Enteric tube courses past the diaphragm and out of the [id number], but the sidehole is seen near the GE junction. ET-Tube: 7.5 ET Position: 26 Thelma Cano NP Jan 30, 2019 10:56
--- NOTE | 2019-01-30 11:53 | Nephrology Progress Note ---
Assessment/Plan Problem List: (1) Renal failure (ARF), acute on chronic (2) Acute respiratory failure (3) Septic shock (4) Cardiomyopathy Assessment Renal failure- Likely acute on Chronic- Cr lower Acute respiratory failure- intubated on Vent Septic Shock- On pressors COPD PVD Schizophrenia Plan stop IV fluid renal dose dopamin for low HR K supplement down on hydration One dose IV Lasix mag and Phos and K supplement as needed 2D Echo Low Ej Fx - Global Hypokinesis Avoid nephrotoxics afterload reduction monitor renal parameters urine studies ADRIAN IMPRESSION: Nonobstructive stones in the left kidney demonstrated. Bilateral renal cysts. Subjective ROS Limited/Unobtainable: Yes Objective Objective Last 24 Hour Vital Signs Date Time Temp Pulse Resp B/P (MAP) Pulse Ox O2 Delivery O2 Flow Rate FiO2 01/30/19 11:19 35 01/30/19 11:02 73 22 40 01/30/19 11:00 64 22 127/67 (87) 96 01/30/19 10:30 60 22 127/69 (88) 97 01/30/19 10:00 79 36 135/76 (95) 97 01/30/19 09:37 65 22 40 01/30/19 09:30 61 23 130/68 (88) 98 01/30/19 09:09 98.8 01/30/19 09:03 53/37 01/30/19 09:00 70 22 128/70 (89) 94 01/30/19 08:30 63 22 128/70 (89) 98 01/30/19 08:15 62 22 129/72 (91) 97 01/30/19 08:00 98.8 80 20 133/77 (95) 98 01/30/19 08:00 40 01/30/19 08:00 84 01/30/19 08:00 Mechanical Ventilator 01/30/19 07:03 75 22 40 01/30/19 07:00 60 22 123/68 (86) 97 01/30/19 06:30 66 22 126/53 (77) 97 01/30/19 06:00 69 20 109/57 (74) 96 01/30/19 06:00 109/57 01/30/19 05:30 62 21 117/56 (76) 97 01/30/19 05:12 78 22 40 01/30/19 05:00 129/73 01/30/19 05:00 80 23 129/73 (91) 96 01/30/19 04:30 78 18 125/79 (94) 96 01/30/19 04:00 98.2 75 19 132/77 (95) 97 01/30/19 04:00 Mechanical Ventilator 01/30/19 04:00 132/77 01/30/19 04:00 40 01/30/19 04:00 65 01/30/19 03:30 78 18 132/81 (98) 97 01/30/19 03:29 77 22 40 01/30/19 03:00 82 18 126/75 (92) 01/30/19 03:00 126/75 01/30/19 02:30 103 25 123/77 (92) 01/30/19 02:00 84 21 136/79 (98) 97 01/30/19 02:00 136/79 01/30/19 01:30 69 21 130/75 (93) 97 01/30/19 01:00 128/80 01/30/19 01:00 70 21 128/80 (96) 96 01/30/19 00:50 86 26 40 01/30/19 00:30 87 20 136/82 (100) 96 01/30/19 00:00 73 01/30/19 00:00 98.3 91 22 139/86 (103) 96 01/30/19 00:00 139/86 01/30/19 00:00 Mechanical Ventilator 01/30/19 00:00 40 01/29/19 23:30 91 20 137/86 (103) 97 01/29/19 23:16 82 23 40 01/29/19 23:00 58 21 122/69 (86) 95 01/29/19 23:00 122/69 01/29/19 22:45 83 18 113/60 (77) 95 01/29/19 22:30 116 15 138/95 (109) 96 01/29/19 22:00 82 20 138/76 (96) 97 01/29/19 22:00 138/76 01/29/19 21:30 85 22 123/83 (96) 96 01/29/19 21:00 116/66 01/29/19 21:00 78 22 116/66 (83) 96 01/29/19 20:59 131/72 01/29/19 20:56 131/72 01/29/19 20:37 85 24 97 Mechanical Ventilator 40 01/29/19 20:36 85 24 40 01/29/19 20:30 78 23 131/72 (91) 96 01/29/19 20:00 84 01/29/19 20:00 98.1 80 20 147/67 (93) 97 01/29/19 20:00 40 01/29/19 20:00 Mechanical Ventilator 01/29/19 20:00 147/67 01/29/19 19:28 63 23 40 01/29/19 19:00 77 19 128/60 (82) 97 01/29/19 19:00 123/67 01/29/19 18:00 79 22 123/67 (85) 97 01/29/19 18:00 131/69 01/29/19 17:00 98.4 84 19 131/69 (89) 98 01/29/19 17:00 132/77 01/29/19 16:49 86 22 40 01/29/19 16:00 84 01/29/19 16:00 40 01/29/19 16:00 82 22 126/72 (90) 98 01/29/19 16:00 130/71 01/29/19 16:00 Mechanical Ventilator 01/29/19 15:00 81 33 130/73 (92) 97 01/29/19 15:00 130/73 01/29/19 14:39 84 23 40 01/29/19 14:30 78 21 131/75 (93) 99 01/29/19 14:00 72 20 113/65 (81) 96 01/29/19 14:00 131/75 01/29/19 13:30 72 22 129/67 (87) 96 01/29/19 13:00 113/65 01/29/19 13:00 63 22 125/70 (88) 97 01/29/19 12:41 56 22 40 01/29/19 12:00 98.4 56 21 123/57 (79) 95 01/29/19 12:00 40 01/29/19 12:00 83 01/29/19 12:00 125/70 01/29/19 12:00 Mechanical Ventilator Intake and Output 01/29/19 01/30/19 18:59 06:59 Intake Total 1310.984 ml 996.826 ml Output Total 660 ml 1340 ml Balance 650.984 ml -343.174 ml Free Water 150 ml IV Total 995.984 ml 306.826 ml Tube Feeding 315 ml 540 ml Output Urine Total 660 ml 1340 ml Laboratory Tests 01/30/19 04:00: Arterial Blood pH 7.549H, Arterial Blood Partial Pressure CO2 34.2L, Arterial Blood Partial Pressure O2 82.9, Arterial Blood HCO3 29.2H, Arterial Blood Oxygen Saturation 96.1, Arterial Blood Base Excess 6.8H, Kvng Test Positive 01/30/19 04:55: White Blood Count 19.7H, Red Blood Count 4.21L, Hemoglobin 12.9L, Hematocrit 38.8L, Mean Corpuscular Volume 92, Mean Corpuscular Hemoglobin 30.5, Mean Corpuscular Hemoglobin Concent 33.2, Red Cell Distribution Width 13.3, Platelet Count 297, Mean Platelet Volume 5.0L, Neutrophils (%) (Auto) , Lymphocytes (%) ( Auto) , Monocytes (%) (Auto) , Eosinophils (%) (Auto) , Basophils (%) (Auto) , Differential Total Cells Counted 100, Neutrophils % (Manual) 79H, Lymphocytes % (Manual) 14L, Monocytes % (Manual) 7, Eosinophils % (Manual) 0, Basophils % ( Manual) 0, Band Neutrophils 0, Platelet Estimate Adequate, Platelet Morphology Normal, Red Blood Cell Morphology Normal, Sodium Level 143, Potassium Level 3.5 , Chloride Level 104, Carbon Dioxide Level 32, Anion Gap 7, Blood Urea Nitrogen 18, Creatinine 1.2, Estimat Glomerular Filtration Rate > 60, Glucose Level 174H , Calcium Level 7.5L, Phosphorus Level 2.6, Magnesium Level 1.6L, Total Bilirubin 0.3, Aspartate Amino Transf (AST/SGOT) 38H, Alanine Aminotransferase ( ALT/SGPT) 42, Alkaline Phosphatase 117H, Total Protein 6.5, Albumin 1.9L, Globulin 4.6, Albumin/Globulin Ratio 0.4L Height (Feet): 5 Height (Inches): 6.00 Weight (Pounds): 155 General Appearance: no apparent distress EENT: other - vented Cardiovascular: normal rate Respiratory/Chest: decreased breath sounds Abdomen: distended Bienvenido Gonzalez MD Jan 30, 2019 11:53
--- NOTE | 2019-01-30 12:10 | NUR ---
NURSE NOTES: Turned and repositioned for comfort and skin management.No significant change of conditions at this time, will continue to monitor, mouth care done and suctioned as tolerated
--- NOTE | 2019-01-30 13:10 | General Progress Note ---
Assessment/Plan Status: stable, unchanged Assessment/Plan: Patient with multiple medical issues currently. Need to continue therahoney to the ulcer to loosen the eschar enough to allow removal of it. Continue to float the heels on pillows. Once the eschar has loosened can excise at the bedside. THis will then allow more definite wound care recommendations as well as define the true stage of the ulcer. Subjective Date patient seen: Jan 30, 2019 Time patient seen: 13:06 Allergies: Coded Allergies: No Known Allergies (Unverified , 01/24/19) Subjective Follow up evaluation on patient with a left heel unstageable pressure ulcer. Patient is still intubated. Biotene dressing in place and heels are floating. Objective Last 24 Hour Vital Signs Date Time Temp Pulse Resp B/P (MAP) Pulse Ox O2 Delivery O2 Flow Rate FiO2 01/30/19 12:00 61 01/30/19 12:00 97.8 77 20 111/59 (76) 95 01/30/19 12:00 Mechanical Ventilator 01/30/19 12:00 35 01/30/19 11:30 67 20 127/61 (83) 95 01/30/19 11:19 35 01/30/19 11:02 73 22 40 01/30/19 11:00 64 22 127/67 (87) 96 01/30/19 10:30 60 22 127/69 (88) 97 01/30/19 10:00 79 36 135/76 (95) 97 01/30/19 09:37 65 22 40 01/30/19 09:30 61 23 130/68 (88) 98 01/30/19 09:09 98.8 01/30/19 09:03 53/37 01/30/19 09:00 70 22 128/70 (89) 94 01/30/19 08:30 63 22 128/70 (89) 98 01/30/19 08:15 62 22 129/72 (91) 97 01/30/19 08:00 98.8 80 20 133/77 (95) 98 01/30/19 08:00 40 01/30/19 08:00 84 01/30/19 08:00 Mechanical Ventilator 01/30/19 07:03 75 22 40 01/30/19 07:00 60 22 123/68 (86) 97 01/30/19 06:30 66 22 126/53 (77) 97 01/30/19 06:00 69 20 109/57 (74) 96 01/30/19 06:00 109/57 01/30/19 05:30 62 21 117/56 (76) 97 01/30/19 05:12 78 22 40 01/30/19 05:00 129/73 01/30/19 05:00 80 23 129/73 (91) 96 01/30/19 04:30 78 18 125/79 (94) 96 01/30/19 04:00 98.2 75 19 132/77 (95) 97 01/30/19 04:00 Mechanical Ventilator 01/30/19 04:00 132/77 01/30/19 04:00 40 01/30/19 04:00 65 01/30/19 03:30 78 18 132/81 (98) 97 01/30/19 03:29 77 22 40 01/30/19 03:00 82 18 126/75 (92) 01/30/19 03:00 126/75 01/30/19 02:30 103 25 123/77 (92) 01/30/19 02:00 84 21 136/79 (98) 97 01/30/19 02:00 136/79 01/30/19 01:30 69 21 130/75 (93) 97 01/30/19 01:00 128/80 01/30/19 01:00 70 21 128/80 (96) 96 01/30/19 00:50 86 26 40 01/30/19 00:30 87 20 136/82 (100) 96 01/30/19 00:00 73 01/30/19 00:00 98.3 91 22 139/86 (103) 96 01/30/19 00:00 139/86 01/30/19 00:00 Mechanical Ventilator 01/30/19 00:00 40 01/29/19 23:30 91 20 137/86 (103) 97 01/29/19 23:16 82 23 40 01/29/19 23:00 58 21 122/69 (86) 95 01/29/19 23:00 122/69 01/29/19 22:45 83 18 113/60 (77) 95 01/29/19 22:30 116 15 138/95 (109) 96 01/29/19 22:00 82 20 138/76 (96) 97 01/29/19 22:00 138/76 01/29/19 21:30 85 22 123/83 (96) 96 01/29/19 21:00 116/66 01/29/19 21:00 78 22 116/66 (83) 96 01/29/19 20:59 131/72 01/29/19 20:56 131/72 01/29/19 20:37 85 24 97 Mechanical Ventilator 40 01/29/19 20:36 85 24 40 01/29/19 20:30 78 23 131/72 (91) 96 01/29/19 20:00 84 01/29/19 20:00 98.1 80 20 147/67 (93) 97 01/29/19 20:00 40 01/29/19 20:00 Mechanical Ventilator 01/29/19 20:00 147/67 01/29/19 19:28 63 23 40 01/29/19 19:00 77 19 128/60 (82) 97 01/29/19 19:00 123/67 01/29/19 18:00 79 22 123/67 (85) 97 01/29/19 18:00 131/69 01/29/19 17:00 98.4 84 19 131/69 (89) 98 01/29/19 17:00 132/77 01/29/19 16:49 86 22 40 01/29/19 16:00 84 01/29/19 16:00 40 01/29/19 16:00 82 22 126/72 (90) 98 01/29/19 16:00 130/71 01/29/19 16:00 Mechanical Ventilator 01/29/19 15:00 81 33 130/73 (92) 97 01/29/19 15:00 130/73 01/29/19 14:39 84 23 40 01/29/19 14:30 78 21 131/75 (93) 99 01/29/19 14:00 72 20 113/65 (81) 96 01/29/19 14:00 131/75 01/29/19 13:30 72 22 129/67 (87) 96 Intake and Output 01/29/19 01/30/19 18:59 06:59 Intake Total 1310.984 ml 996.826 ml Output Total 660 ml 1340 ml Balance 650.984 ml -343.174 ml Free Water 150 ml IV Total 995.984 ml 306.826 ml Tube Feeding 315 ml 540 ml Output Urine Total 660 ml 1340 ml Laboratory Tests 01/30/19 04:00: Arterial Blood pH 7.549H, Arterial Blood Partial Pressure CO2 34.2L, Arterial Blood Partial Pressure O2 82.9, Arterial Blood HCO3 29.2H, Arterial Blood Oxygen Saturation 96.1, Arterial Blood Base Excess 6.8H, Kvng Test Positive 01/30/19 04:55: White Blood Count 19.7H, Red Blood Count 4.21L, Hemoglobin 12.9L, Hematocrit 38.8L, Mean Corpuscular Volume 92, Mean Corpuscular Hemoglobin 30.5, Mean Corpuscular Hemoglobin Concent 33.2, Red Cell Distribution Width 13.3, Platelet Count 297, Mean Platelet Volume 5.0L, Neutrophils (%) (Auto) , Lymphocytes (%) ( Auto) , Monocytes (%) (Auto) , Eosinophils (%) (Auto) , Basophils (%) (Auto) , Differential Total Cells Counted 100, Neutrophils % (Manual) 79H, Lymphocytes % (Manual) 14L, Monocytes % (Manual) 7, Eosinophils % (Manual) 0, Basophils % ( Manual) 0, Band Neutrophils 0, Platelet Estimate Adequate, Platelet Morphology Normal, Red Blood Cell Morphology Normal, Sodium Level 143, Potassium Level 3.5 , Chloride Level 104, Carbon Dioxide Level 32, Anion Gap 7, Blood Urea Nitrogen 18, Creatinine 1.2, Estimat Glomerular Filtration Rate > 60, Glucose Level 174H , Calcium Level 7.5L, Phosphorus Level 2.6, Magnesium Level 1.6L, Total Bilirubin 0.3, Aspartate Amino Transf (AST/SGOT) 38H, Alanine Aminotransferase ( ALT/SGPT) 42, Alkaline Phosphatase 117H, Total Protein 6.5, Albumin 1.9L, Globulin 4.6, Albumin/Globulin Ratio 0.4L Height (Feet): 5 Height (Inches): 6.00 Weight (Pounds): 155 General Appearance: no apparent distress Skin: other - Eschar on the left heel ulcer still dry and intact. Periskin with no erythema or warmth. No fluctuance. Surjit Daniel MD Jan 30, 2019 13:09
[2019-01-30] MEDS: Midodrine 10mg tab NG SCH ×2 (13:11→17:17)
--- NOTE | 2019-01-30 13:17 | Cardiology Progress Note ---
Assessment/Plan Problem List: (1) Cardiomyopathy (2) COPD (chronic obstructive pulmonary disease) (3) Sepsis (4) Chronic kidney disease (5) Acute respiratory failure (6) Septic shock Status: stable, not improved, unchanged Status Narrative Mr Riojas remains sedated/ on vent and pressor (dopamine) support. His HRs have improved, to 70s, sinus rhythm, and BP 90s systolic Cultures - + staph aureus in sputum. CXR w/ upper lobe infiltrates. He has cardiomyopathy, ? ischemic vs dilated, w/ EF 30-35% by echo this adm Assessment/Plan Continue vent support, wean as tolerated Continue dopamine to maintain SBP > 90/ MAP 60 Iv antibiotics and followup culture results. Decreased LV systolic fxn by echo, but does not clinically appear in CHF. Monitor vol status. Subjective ROS Limited/Unobtainable: Yes Subjective Intubated, not responsive Objective Last 24 Hour Vital Signs Date Time Temp Pulse Resp B/P (MAP) Pulse Ox O2 Delivery O2 Flow Rate FiO2 01/30/19 12:00 61 01/30/19 12:00 97.8 77 20 111/59 (76) 95 01/30/19 12:00 Mechanical Ventilator 01/30/19 12:00 35 01/30/19 11:30 67 20 127/61 (83) 95 01/30/19 11:19 35 01/30/19 11:02 73 22 40 01/30/19 11:00 64 22 127/67 (87) 96 01/30/19 10:30 60 22 127/69 (88) 97 01/30/19 10:00 79 36 135/76 (95) 97 01/30/19 09:37 65 22 40 01/30/19 09:30 61 23 130/68 (88) 98 01/30/19 09:09 98.8 01/30/19 09:03 53/37 01/30/19 09:00 70 22 128/70 (89) 94 01/30/19 08:30 63 22 128/70 (89) 98 01/30/19 08:15 62 22 129/72 (91) 97 01/30/19 08:00 98.8 80 20 133/77 (95) 98 01/30/19 08:00 40 01/30/19 08:00 84 01/30/19 08:00 Mechanical Ventilator 11/16/19 07:03 75 22 40 01/30/19 07:00 60 22 123/68 (86) 97 01/30/19 06:30 66 22 126/53 (77) 97 01/30/19 06:00 69 20 109/57 (74) 96 01/30/19 06:00 109/57 01/30/19 05:30 62 21 117/56 (76) 97 01/30/19 05:12 78 22 40 01/30/19 05:00 129/73 01/30/19 05:00 80 23 129/73 (91) 96 01/30/19 04:30 78 18 125/79 (94) 96 01/30/19 04:00 98.2 75 19 132/77 (95) 97 01/30/19 04:00 Mechanical Ventilator 01/30/19 04:00 132/77 01/30/19 04:00 40 01/30/19 04:00 65 01/30/19 03:30 78 18 132/81 (98) 97 01/30/19 03:29 77 22 40 01/30/19 03:00 82 18 126/75 (92) 01/30/19 03:00 126/75 01/30/19 02:30 103 25 123/77 (92) 01/30/19 02:00 84 21 136/79 (98) 97 01/30/19 02:00 136/79 01/30/19 01:30 69 21 130/75 (93) 97 01/30/19 01:00 128/80 01/30/19 01:00 70 21 128/80 (96) 96 01/30/19 00:50 86 26 40 01/30/19 00:30 87 20 136/82 (100) 96 01/30/19 00:00 73 01/30/19 00:00 98.3 91 22 139/86 (103) 96 01/30/19 00:00 139/86 01/30/19 00:00 Mechanical Ventilator 01/30/19 00:00 40 01/29/19 23:30 91 20 137/86 (103) 97 01/29/19 23:16 82 23 40 01/29/19 23:00 58 21 122/69 (86) 95 01/29/19 23:00 122/69 01/29/19 22:45 83 18 113/60 (77) 95 01/29/19 22:30 116 15 138/95 (109) 96 01/29/19 22:00 82 20 138/76 (96) 97 01/29/19 22:00 138/76 01/29/19 21:30 85 22 123/83 (96) 96 01/29/19 21:00 116/66 01/29/19 21:00 78 22 116/66 (83) 96 01/29/19 20:59 131/72 01/29/19 20:56 131/72 01/29/19 20:37 85 24 97 Mechanical Ventilator 40 01/29/19 20:36 85 24 40 01/29/19 20:30 78 23 131/72 (91) 96 01/29/19 20:00 84 01/29/19 20:00 98.1 80 20 147/67 (93) 97 01/29/19 20:00 40 01/29/19 20:00 Mechanical Ventilator 01/29/19 20:00 147/67 01/29/19 19:28 63 23 40 01/29/19 19:00 77 19 128/60 (82) 97 01/29/19 19:00 123/67 01/29/19 18:00 79 22 123/67 (85) 97 01/29/19 18:00 131/69 01/29/19 17:00 98.4 84 19 131/69 (89) 98 01/29/19 17:00 132/77 01/29/19 16:49 86 22 40 01/29/19 16:00 84 01/29/19 16:00 40 01/29/19 16:00 82 22 126/72 (90) 98 01/29/19 16:00 130/71 01/29/19 16:00 Mechanical Ventilator 01/29/19 15:00 81 33 130/73 (92) 97 01/29/19 15:00 130/73 01/29/19 14:39 84 23 40 01/29/19 14:30 78 21 131/75 (93) 99 01/29/19 14:00 72 20 113/65 (81) 96 01/29/19 14:00 131/75 01/29/19 13:30 72 22 129/67 (87) 96 General Appearance: lethargic, on vent EENT: other - et tube Neck: no JVD Rhythm: NSR Cardiovascular: normal rate, regular rhythm, no gallop/murmur Respiratory/Chest: other - occ rhonchi bilat Abdomen: non tender, soft, no mass Extremities: no swelling Intake and Output 01/29/19 01/30/19 18:59 06:59 Intake Total 1310.984 ml 996.826 ml Output Total 660 ml 1340 ml Balance 650.984 ml -343.174 ml Free Water 150 ml IV Total 995.984 ml 306.826 ml Tube Feeding 315 ml 540 ml Output Urine Total 660 ml 1340 ml Laboratory Tests Test 01/30/19 04:00 01/30/19 04:55 Arterial Blood pH 7.549 (7.350-7.450) Arterial Blood Partial Pressure CO2 34.2 mmHg (35.0-45.0) L Arterial Blood Partial Pressure O2 82.9 mmHg (75.0-100.0) Arterial Blood HCO3 29.2 mmol/L (22.0-26.0) H Arterial Blood Oxygen Saturation 96.1 % (95-100) Arterial Blood Base Excess 6.8 (-2-2) H Kvng Test Positive White Blood Count 19.7 K/UL (4.8-10.8) H Red Blood Count 4.21 M/UL (4.70-6.10) L Hemoglobin 12.9 G/DL (14.2-18.0) L Hematocrit 38.8 % (42.0-52.0) L Mean Corpuscular Volume 92 FL (80-99) Mean Corpuscular Hemoglobin 30.5 PG (27.0-31.0) Mean Corpuscular Hemoglobin Concent 33.2 G/DL (32.0-36.0) Red Cell Distribution Width 13.3 % (11.6-14.8) Platelet Count 297 K/UL (150-450) Mean Platelet Volume 5.0 FL (6.5-10.1) L Neutrophils (%) (Auto) % (45.0-75.0) Lymphocytes (%) (Auto) % (20.0-45.0) Monocytes (%) (Auto) % (1.0-10.0) Eosinophils (%) (Auto) % (0.0-3.0) Basophils (%) (Auto) % (0.0-2.0) Differential Total Cells Counted 100 Neutrophils % (Manual) 79 % (45-75) H Lymphocytes % (Manual) 14 % (20-45) L Monocytes % (Manual) 7 % (1-10) Eosinophils % (Manual) 0 % (0-3) Basophils % (Manual) 0 % (0-2) Band Neutrophils 0 % (0-8) Platelet Estimate Adequate Platelet Morphology Normal Red Blood Cell Morphology Normal Sodium Level 143 MMOL/L (136-145) Potassium Level 3.5 MMOL/L (3.5-5.1) Chloride Level 104 MMOL/L (98-107) Carbon Dioxide Level 32 MMOL/L (21-32) Anion Gap 7 mmol/L (5-15) Blood Urea Nitrogen 18 mg/dL (7-18) Creatinine 1.2 MG/DL (0.55-1.30) Estimat Glomerular Filtration Rate > 60 mL/min (>60) Glucose Level 174 MG/DL (74-106) H Calcium Level 7.5 MG/DL (8.5-10.1) L Phosphorus Level 2.6 MG/DL (2.5-4.9) Magnesium Level 1.6 MG/DL (1.8-2.4) L Total Bilirubin 0.3 MG/DL (0.2-1.0) Aspartate Amino Transf (AST/SGOT) 38 U/L (15-37) H Alanine Aminotransferase (ALT/SGPT) 42 U/L (12-78) Alkaline Phosphatase 117 U/L (46-116) H Total Protein 6.5 G/DL (6.4-8.2) Albumin 1.9 G/DL (3.4-5.0) L Globulin 4.6 g/dL Albumin/Globulin Ratio 0.4 (1.0-2.7) L Microbiology Date/Time Source Procedure Growth Status 01/28/19 19:55 Sputum Gram Stain - Final Resulted 01/28/19 19:55 Sputum Culture - Preliminary Staphylococcus Aureus Resulted Rolanda Shahid MD Jan 30, 2019 13:17
--- NOTE | 2019-01-30 14:00 | NUR ---
NURSE NOTES: No significant change of condition at this time, Dopamine titrated to 6 mcg with a drop of HR to 51 in less than a minute, put back to 8mcg/hr.Will continue to monitor
--- NOTE | 2019-01-30 14:30 | Surgery Progress Note ---
Surgery Progress Note Subjective Additional Comments ill appearing in ICU on vent support non responsive exam unchanged restrains leukocytosis Objective Last 24 Hour Vital Signs Date Time Temp Pulse Resp B/P (MAP) Pulse Ox O2 Delivery O2 Flow Rate FiO2 01/30/19 14:00 69 20 93/68 (76) 97 01/30/19 13:30 72 20 93/61 (72) 97 01/30/19 13:20 73 20 35 01/30/19 13:00 69 20 95/62 (73) 96 01/30/19 12:00 61 01/30/19 12:00 97.8 77 20 111/59 (76) 95 01/30/19 12:00 Mechanical Ventilator 01/30/19 12:00 35 01/30/19 11:30 67 20 127/61 (83) 95 01/30/19 11:19 35 01/30/19 11:02 73 22 40 01/30/19 11:00 64 22 127/67 (87) 96 01/30/19 10:30 60 22 127/69 (88) 97 01/30/19 10:00 79 36 135/76 (95) 97 01/30/19 09:37 65 22 40 01/30/19 09:30 61 23 130/68 (88) 98 01/30/19 09:09 98.8 01/30/19 09:03 53/37 01/30/19 09:00 70 22 128/70 (89) 94 01/30/19 08:30 63 22 128/70 (89) 98 01/30/19 08:15 62 22 129/72 (91) 97 01/30/19 08:00 98.8 80 20 133/77 (95) 98 01/30/19 08:00 40 01/30/19 08:00 84 01/30/19 08:00 Mechanical Ventilator 01/30/19 07:03 75 22 40 01/30/19 07:00 60 22 123/68 (86) 97 01/30/19 06:30 66 22 126/53 (77) 97 01/30/19 06:00 69 20 109/57 (74) 96 01/30/19 06:00 109/57 01/30/19 05:30 62 21 117/56 (76) 97 01/30/19 05:12 78 22 40 01/30/19 05:00 129/73 01/30/19 05:00 80 23 129/73 (91) 96 01/30/19 04:30 78 18 125/79 (94) 96 01/30/19 04:00 98.2 75 19 132/77 (95) 97 01/30/19 04:00 Mechanical Ventilator 01/30/19 04:00 132/77 01/30/19 04:00 40 01/30/19 04:00 65 01/30/19 03:30 78 18 132/81 (98) 97 01/30/19 03:29 77 22 40 01/30/19 03:00 82 18 126/75 (92) 01/30/19 03:00 126/75 01/30/19 02:30 103 25 123/77 (92) 01/30/19 02:00 84 21 136/79 (98) 97 01/30/19 02:00 136/79 01/30/19 01:30 69 21 130/75 (93) 97 01/30/19 01:00 128/80 01/30/19 01:00 70 21 128/80 (96) 96 01/30/19 00:50 86 26 40 01/30/19 00:30 87 20 136/82 (100) 96 01/30/19 00:00 73 01/30/19 00:00 98.3 91 22 139/86 (103) 96 01/30/19 00:00 139/86 01/30/19 00:00 Mechanical Ventilator 01/30/19 00:00 40 01/29/19 23:30 91 20 137/86 (103) 97 01/29/19 23:16 82 23 40 01/29/19 23:00 58 21 122/69 (86) 95 01/29/19 23:00 122/69 01/29/19 22:45 83 18 113/60 (77) 95 01/29/19 22:30 116 15 138/95 (109) 96 01/29/19 22:00 82 20 138/76 (96) 97 01/29/19 22:00 138/76 01/29/19 21:30 85 22 123/83 (96) 96 01/29/19 21:00 116/66 01/29/19 21:00 78 22 116/66 (83) 96 01/29/19 20:59 131/72 01/29/19 20:56 131/72 01/29/19 20:37 85 24 97 Mechanical Ventilator 40 01/29/19 20:36 85 24 40 01/29/19 20:30 78 23 131/72 (91) 96 01/29/19 20:00 84 01/29/19 20:00 98.1 80 20 147/67 (93) 97 01/29/19 20:00 40 01/29/19 20:00 Mechanical Ventilator 01/29/19 20:00 147/67 01/29/19 19:28 63 23 40 01/29/19 19:00 77 19 128/60 (82) 97 01/29/19 19:00 123/67 01/29/19 18:00 79 22 123/67 (85) 97 01/29/19 18:00 131/69 01/29/19 17:00 98.4 84 19 131/69 (89) 98 01/29/19 17:00 132/77 01/29/19 16:49 86 22 40 01/29/19 16:00 84 01/29/19 16:00 40 01/29/19 16:00 82 22 126/72 (90) 98 01/29/19 16:00 130/71 01/29/19 16:00 Mechanical Ventilator 01/29/19 15:00 81 33 130/73 (92) 97 01/29/19 15:00 130/73 01/29/19 14:39 84 23 40 01/29/19 14:30 78 21 131/75 (93) 99 I&O Intake and Output 01/29/19 01/30/19 19:00 07:00 Intake Total 1230.984 ml 996.826 ml Output Total 590 ml 1400 ml Balance 640.984 ml -403.174 ml Free Water 150 ml IV Total 870.984 ml 306.826 ml Tube Feeding 360 ml 540 ml Output Urine Total 590 ml 1400 ml Dressing: dry Wound: clean Cardiovascular: RSR Respiratory: decreased breath sounds Abdomen: soft, present bowel sounds, non-distended Extremities: no cyanosis, other Laboratory Tests Test 01/30/19 04:00 01/30/19 04:55 Arterial Blood pH 7.549 (7.350-7.450) Arterial Blood Partial Pressure CO2 34.2 mmHg (35.0-45.0) L Arterial Blood Partial Pressure O2 82.9 mmHg (75.0-100.0) Arterial Blood HCO3 29.2 mmol/L (22.0-26.0) H Arterial Blood Oxygen Saturation 96.1 % (95-100) Arterial Blood Base Excess 6.8 (-2-2) H Kvng Test Positive White Blood Count 19.7 K/UL (4.8-10.8) H Red Blood Count 4.21 M/UL (4.70-6.10) L Hemoglobin 12.9 G/DL (14.2-18.0) L Hematocrit 38.8 % (42.0-52.0) L Mean Corpuscular Volume 92 FL (80-99) Mean Corpuscular Hemoglobin 30.5 PG (27.0-31.0) Mean Corpuscular Hemoglobin Concent 33.2 G/DL (32.0-36.0) Red Cell Distribution Width 13.3 % (11.6-14.8) Platelet Count 297 K/UL (150-450) Mean Platelet Volume 5.0 FL (6.5-10.1) L Neutrophils (%) (Auto) % (45.0-75.0) Lymphocytes (%) (Auto) % (20.0-45.0) Monocytes (%) (Auto) % (1.0-10.0) Eosinophils (%) (Auto) % (0.0-3.0) Basophils (%) (Auto) % (0.0-2.0) Differential Total Cells Counted 100 Neutrophils % (Manual) 79 % (45-75) H Lymphocytes % (Manual) 14 % (20-45) L Monocytes % (Manual) 7 % (1-10) Eosinophils % (Manual) 0 % (0-3) Basophils % (Manual) 0 % (0-2) Band Neutrophils 0 % (0-8) Platelet Estimate Adequate Platelet Morphology Normal Red Blood Cell Morphology Normal Sodium Level 143 MMOL/L (136-145) Potassium Level 3.5 MMOL/L (3.5-5.1) Chloride Level 104 MMOL/L (98-107) Carbon Dioxide Level 32 MMOL/L (21-32) Anion Gap 7 mmol/L (5-15) Blood Urea Nitrogen 18 mg/dL (7-18) Creatinine 1.2 MG/DL (0.55-1.30) Estimat Glomerular Filtration Rate > 60 mL/min (>60) Glucose Level 174 MG/DL (74-106) H Calcium Level 7.5 MG/DL (8.5-10.1) L Phosphorus Level 2.6 MG/DL (2.5-4.9) Magnesium Level 1.6 MG/DL (1.8-2.4) L Total Bilirubin 0.3 MG/DL (0.2-1.0) Aspartate Amino Transf (AST/SGOT) 38 U/L (15-37) H Alanine Aminotransferase (ALT/SGPT) 42 U/L (12-78) Alkaline Phosphatase 117 U/L (46-116) H Total Protein 6.5 G/DL (6.4-8.2) Albumin 1.9 G/DL (3.4-5.0) L Globulin 4.6 g/dL Albumin/Globulin Ratio 0.4 (1.0-2.7) L Plan Problems: (1) Sepsis Assessment & Plan: afebrile, HD improving tachycardic leukocytosis lactic acidosis resolved ill appearing in ICU on support -IV fluids resuscitation -IV abx as per ID -trend labs -CXR noted -cont tube feeds -will follow with recs thank you (2) Septic shock (3) Wound, open Assessment & Plan: Patient presented on admission with multiple pressure injuries being identified. Non-blanching erythema without induration noted to sacrum ,Right and Left buttocks. Scattered areas that are darker and maroon in color noted within base of wound. Scrotum is also erythematous. Unstageable pressure injury noted to Left heel. Base of wound is 100% necrotic but soft. Erythematous margins with surrounding non-blanching erythema.(L)3.2cm x (W)3cm. no drainage Right heel is boggy with non-blanching erythema.. Keloid scar noted distal R tibia. Partial thickness ulcer noted to dorsal R foot. Base of wound is moist and viable. Small amt serous exudate noted. Scattered small dry scabs noted to dorsal R foot. Tx.Plan: Swab Dorsal R foot and R heel with Betadine. Cover with Optifoam drsg. Change every 3 days and prn. Apply Moisture Barrier Paste to buttocks. Cover sacrum with Optifoam drsg. Change every 3 days and prn. Apply Cavilon Skin Barrier to L heel.Cover with Optifoam drsg. Change every 7 days and prn. APM/JELLY mattress. Reposition at least every 2hours or as tolerated. Off-load heels with pillow. Nutritional Optimization Will monitor while in critical condition DAILY ESTIMATED NEEDS: Needs based on Critical care, sepsis, wounds 69kg 22-30 kcals/kg 8523-5050 total kcals 1.25-2 g protein/kg 86-138 g total protein 25-30 mL/kg 4601-6173 total fluid mLs NUTRITION DIAGNOSIS: Increased kcal and pro needs r/t sepsis, wound healing, and underweight status as evidenced by pt w respiratory distress now intubated, critically elev WBC (*29.7), elev BG (200's), w/ multiple wounds (refer to eval), pt is @88% if [place] Body Weight. CURRENT TF: Glucerna 1.2 @30ml ENTERAL NUTRITION RECOMMENDATIONS: VITAL AF 1.2 @60ml/hr x24 hrs to provide 1440ml, 1728 kcal, 108g pro, 1168ml free H2O - WITH HEMODYNAMIC STABILITY, rec TF change to VITAL 1.2 to better meet est needs. Start @20ml/hr for 6 hrs. Advance as tolerated 10ml/hr q4-6 hrs to goal. - Flush per . HOB over 30 degrees If pt remains on pressor support, rec trophic feeds of Vital 1.2 @5-10ml/hr to maintain gut integrity. ------ ADDITIONAL RECOMMENDATIONS: 1) Per SNF: HT 71 inches, 152 lbs (69.1kg) 2) Wound care: Add DANIELA in 4oz water BID via OGT + VIT C 250mg BID (f/up w/ WC specialist) 3) Monitor lytes daily, replete as needed 4) Daily calibrated bed scale wts Mauricio Anne Jan 30, 2019 14:30
--- NOTE | 2019-01-30 16:11 | NUR ---
NURSE NOTES: Patient turned and repositioned.Mouth care done, will continue to monitor.No significant change in condition at this time.
--- NOTE | 2019-01-30 18:22 | NUR ---
NURSE NOTES: ADLS DONE, PT TURNED AND REPOSITIONED.HOB ELEVATED AT 35 DEGREE TO PREVENT ASPIRATION.NO SIGNIFICANT CHANGE IN CONDITION.WILL CONTINUE SAME CARE PLAN
--- NOTE | 2019-01-30 19:03 | NUR ---
HAND-OFF: Report given to EUGENIA Hayward.
--- NOTE | 2019-01-30 19:04 | NUR ---
NURSE NOTES: Endorsement received from EUGENIA Calvert. Opens eyes spontaneously, does not track. Withdraws to pain. Patient sinus rhythm on the monitor. Orally intubated, ET 7.5. 26 lipline. AC 20 VT 500, PEEP 5, 35% FiO2. With OGT. Rechecked placement per auscultation. Receiving Glucerna 1.2, 45ml/hr. No residual. Right upper arm PICC. On Dopamine 8mcg/kg/min. Costello catheter in place. On P200 mattress. Head of bed elevated. Bed locked, in low position. Bed alarm on.
[2019-01-30] MEDS: Dyna-Hex 2% Top Sol 2oz TOPIC SCH (19:46)
[2019-01-30] MEDS: Norepinephrine Bitartrate 8 MG in D5W 500ml 492 ML IV SCH (21:00)
--- NOTE | 2019-01-30 22:00 | NUR ---
NURSE NOTES: Patient still bradycardic, 52-55 BPM on Dopamine 8mcg/kg/min. Increased to 10mcg/kg/min. Will continue to monitor
[2019-01-30] MEDS: Amikacin 950 MG in NS 110 ML IV SCH (22:29)
--- NOTE | 2019-01-30 23:00 | NUR ---
NURSE NOTES: Patient on 8mck/kg/min
[2019-01-30] MEDS: Ertapenem 1 GM in NS 55 ML IV SCH (23:48)
[2019-01-31] VITALS (60 sets, daily range): BP systolic 71–155; BP diastolic 48–92
--- NOTE | 2019-01-31 01:00 | NUR ---
NURSE NOTES: Patient appears comfortable, no sign of pain or discomfort. Tolerating feeding. Oral care, bed bath change of linens done
--- NOTE | 2019-01-31 03:00 | NUR ---
NURSE NOTES: Bed bath. Oral care, change of linens done.
[2019-01-31 04:46] LABS: HEMATOCRIT 38.9 % (42.0-52.0); HEMOGLOBIN 13.2 G/DL (14.2-18.0); MEAN CORPUSCULAR VOLUME 91 FL (80-99); PLATELET COUNT 313 K/UL (150-450); RED BLOOD COUNT 4.27 M/UL (4.70-6.10); RED CELL DISTRIBUTION WIDTH 13.5 % (11.6-14.8); WHITE BLOOD COUNT 20.6 K/UL (4.8-10.8)
--- NOTE | 2019-01-31 05:00 | NUR ---
NURSE NOTES: Patient heart rate between high 40s to low 50s when asleep, sinus rhythm when awake on dopamine 8mcg/kg/min
[2019-01-31 05:14] LABS: ANION GAP 3 mmol/L (5-15); BLOOD UREA NITROGEN 19 mg/dL (7-18); CALCIUM 7.9 MG/DL (8.5-10.1); CARBON DIOXIDE 34 MMOL/L (21-32); CHLORIDE 103 MMOL/L (98-107); CREATININE 1.4 MG/DL (0.55-1.30); POTASSIUM 3.9 MMOL/L (3.5-5.1); SODIUM 140 MMOL/L (136-145)
[2019-01-31] MEDS: Hydrocortisone 100mg Inj IV SCH ×3 (05:26→22:44)
[2019-01-31] MEDS: Miralax 17gm pkt ORAL PRN (05:26)
[2019-01-31 05:27] LABS: ALANINE AMINOTRANSFERASE 55 U/L (12-78); ALBUMIN 1.9 G/DL (3.4-5.0); ALKALINE PHOSPHATASE 130 U/L (46-116); ASPARTATE AMINO TRANSFERASE 40 U/L (15-37); BILIRUBIN,DIRECT 0.1 MG/DL (0.0-0.3); BILIRUBIN,TOTAL 0.3 MG/DL (0.2-1.0)
[2019-01-31] MEDS: NovoLOG Insulin Flexpen SUBQ SCH ×3 (05:28→17:49)
--- NOTE | 2019-01-31 07:10 | NUR ---
HAND-OFF: Report given to EUGENIA Diaz.
--- NOTE | 2019-01-31 07:11 | NUR ---
NURSE NOTES: Endorsement received from EUGENIA Hayward. Opens eyes spontaneously, does not track. Withdraws to pain. Sinus bradycardia on the cardiac technologist. Orally intubated, ET 7.5, 26 @ lipline. AC 20 VT 500, PEEP 5, 35% FiO2. With OGT, auscultated to check placement, receiving Glucerna 1.2, 45ml/hr. No residual noted. Right upper arm double lumen PICC. Increased Dopamine to 9mcg/kg/min. Costello catheter in place, draining yellow urine. On P200 mattress. Head of bed elevated. Bed locked, in low position. Bed alarm on. Will resume plan of care. Addendum: 01/31/19 at 1015 by Emily Sagastume RN Dopamine remains at 8mcg/kg/min.
--- NOTE | 2019-01-31 07:12 | NUR ---
RESPIRATORY NOTE: Received pt on ETT 7.5@25cm lip line, secured with anchor fast, with current vent settings: AC 20-500-35%- peep 5. Pt is resting in bed, unable to follow commands, respond to stimuli. No SOB or resp distress noted at this time. oral care done, moved ETT to the right. Alarms are set and audible, vent is plugged into the red outlet, ambu bag is at bedside. Vent circuits and suction tubing are secured and out of the way. Will continue to monitor pt.
--- NOTE | 2019-01-31 08:01 | Infectious Diseases Prog Note ---
Assessment/Plan Assessment/Plan 68yo gentleman with PMH below presents with fever(100.1 is highest recorded in transfer packet) and worsened congestion from SNF. In the ED, pt was placed on oxygen then BiPAP but ultimately intubated. ID consulted for antimicrobial recommendation. Tmax 100.1 at snf, SP Leukocytosis, uptrending, hydrocortisone from 01/25 Lactic acidosis, SP Shock, was on levophed, titrated off, but now on dopamine Likely MRSA PNA COPD? CHF? thick secretions per nurse flu swab negative 01/24 CXR: Extensive opacities within upper lobes demonstrated. In addition there is generalized interstitial densities throughout both lung craig. 01/25 CXR: Bilateral infiltrates appear fairly extensive but unchanged. TTE with EF 30-35% 01/25 sputum cx: MRSA 01/25 urine legionella ag: P 01/27 CXR: Extensive infiltrates bilaterally. Some degree of a superimposed interstitial edema has improved since the last exam. Endotracheal tube and NG tube remain in satisfactory in position. 01/28 CXR: Extensive bilateral infiltrates are again demonstrated without change. Tubes and lines are stable. 01/28 sputum cx: MRSA 01/30 CXR: 1. Overall similar patchy opacities in the lungs, most prominently in the right upper lung and right mid and lower lung. Probable small bilateral pleural effusions. 2. Endotracheal tube terminates in the region of the lower thoracic aorta above the cristina. Enteric tube courses past the diaphragm and out of the [id number], but the sidehole is seen near the GE junction. Possible UTI? new mcmahon placed in ED 01/25 UA 15-20 WBC 01/25 Ucx: NG Renal US: Nonobstructive stones in the left kidney demonstrated. Bilateral renal cysts. Limited evaluation due to body habitus. r/o bacteremia 01/25 BCx: ngtd No diarrhea HIV test negative MRSA screen positive RLE skin graft b/l LE heel pressure ulcers and sacral ulcer Tobacco abuse COPD HTN Kidney cancer OA CKD Anemia Schizophrenia PVD CHF Plan: Linezolid #1 DC Amikacin and vancomycin #6 continue ertapenem #7 Azithromycin #4 for atypicals SP cefepime #1 SP flagyl #1 SP vancomycin #1 repeat bcx aspiration precaution, elevate HOB, ETT care, oral care DVT PPX Thank you for this consult. [facility] will continue to follow the patient with you. Subjective Allergies: Coded Allergies: No Known Allergies (Unverified , 01/24/19) Subjective Afebrile. Persistent leukocytosis Still on dopamine FiO2 35% Objective Vital Signs Last 24 Hour Vital Signs Date Time Temp Pulse Resp B/P (MAP) Pulse Ox O2 Delivery O2 Flow Rate FiO2 01/31/19 07:30 48 20 122/53 (76) 99 01/31/19 07:12 47 20 35 01/31/19 07:00 47 20 113/55 (74) 98 01/31/19 06:00 133/57 01/31/19 06:00 51 20 132/56 (81) 98 01/31/19 05:30 55 20 121/52 (75) 99 01/31/19 05:05 55 20 35 01/31/19 05:00 71 18 123/55 (77) 98 01/31/19 05:00 117/51 01/31/19 04:30 46 20 125/52 (76) 98 01/31/19 04:00 35 01/31/19 04:00 98.1 51 20 126/58 (80) 98 01/31/19 04:00 122/53 01/31/19 04:00 Mechanical Ventilator 01/31/19 04:00 60 01/31/19 03:30 51 20 121/62 (81) 98 01/31/19 03:09 64 19 35 01/31/19 03:00 121/58 01/31/19 03:00 53 20 132/68 (89) 98 01/31/19 02:30 53 21 112/58 (76) 98 01/31/19 02:00 50 20 119/58 (78) 98 01/31/19 02:00 119/58 01/31/19 01:45 50 20 121/59 (79) 98 01/31/19 01:30 77 24 113/56 (75) 98 01/31/19 01:25 50 20 35 01/31/19 01:00 81 26 131/65 (87) 99 01/31/19 01:00 131/65 01/31/19 00:45 72 19 127/67 (87) 97 01/31/19 00:30 52 19 130/74 (92) 97 01/31/19 00:15 54 18 122/63 (82) 96 01/31/19 00:00 Mechanical Ventilator 01/31/19 00:00 62 01/31/19 00:00 92/52 01/31/19 00:00 98.0 56 20 92/53 (66) 97 01/30/19 23:45 58 20 100/56 (71) 97 01/30/19 23:30 58 20 114/59 (77) 97 01/30/19 23:16 64 20 35 01/30/19 23:15 64 20 119/70 (86) 97 01/30/19 23:00 111 18 144/101 (115) 98 01/30/19 23:00 144/101 01/30/19 22:45 74 20 146/82 (103) 98 01/30/19 22:30 52 20 130/58 (82) 98 01/30/19 22:15 53 20 131/64 (86) 98 01/30/19 22:00 54 20 130/63 (85) 98 01/30/19 22:00 130/63 01/30/19 21:45 52 20 127/69 (88) 98 01/30/19 21:30 53 20 131/61 (84) 98 01/30/19 21:15 53 20 130/63 (85) 98 01/30/19 21:05 128/63 01/30/19 21:01 55 20 35 01/30/19 21:00 128/63 01/30/19 21:00 128/63 01/30/19 21:00 56 20 128/63 (84) 98 01/30/19 20:45 57 19 128/66 (86) 98 01/30/19 20:30 71 18 128/66 (86) 98 01/30/19 20:15 52 20 125/61 (82) 98 01/30/19 20:00 35 01/30/19 20:00 Mechanical Ventilator 01/30/19 20:00 113/56 01/30/19 20:00 98.3 52 20 113/56 (75) 98 01/30/19 20:00 54 01/30/19 19:30 61 22 130/65 (86) 97 01/30/19 19:02 55 20 35 01/30/19 19:00 129/62 01/30/19 19:00 54 20 129/62 (84) 98 01/30/19 18:00 70 20 127/64 (85) 98 01/30/19 18:00 125/68 01/30/19 17:30 50 20 118/60 (79) 97 01/30/19 17:03 51 20 35 01/30/19 17:00 53 20 82/49 (60) 97 01/30/19 17:00 82/49 01/30/19 16:30 55 20 114/57 (76) 97 01/30/19 16:00 58 01/30/19 16:00 Mechanical Ventilator 01/30/19 16:00 98.4 54 20 117/58 (77) 97 01/30/19 16:00 117/58 01/30/19 16:00 35 01/30/19 15:03 54 20 35 01/30/19 15:00 53 20 114/58 (76) 97 01/30/19 14:00 69 20 93/68 (76) 97 01/30/19 14:00 109/56 01/30/19 13:30 72 20 93/61 (72) 97 01/30/19 13:20 73 20 35 01/30/19 13:00 91/60 01/30/19 13:00 69 20 95/62 (73) 96 01/30/19 12:00 61 01/30/19 12:00 85/53 01/30/19 12:00 97.8 77 20 111/59 (76) 95 01/30/19 12:00 Mechanical Ventilator 01/30/19 12:00 35 01/30/19 11:30 67 20 127/61 (83) 95 01/30/19 11:19 35 01/30/19 11:02 73 22 40 01/30/19 11:00 64 22 127/67 (87) 96 01/30/19 11:00 115/60 01/30/19 10:30 60 22 127/69 (88) 97 01/30/19 10:00 79 36 135/76 (95) 97 01/30/19 10:00 130/69 01/30/19 09:37 65 22 40 01/30/19 09:30 61 23 130/68 (88) 98 01/30/19 09:09 98.8 01/30/19 09:03 53/37 01/30/19 09:00 70 22 128/70 (89) 94 01/30/19 08:30 63 22 128/70 (89) 98 01/30/19 08:15 62 22 129/72 (91) 97 01/30/19 08:00 98.8 80 20 133/77 (95) 98 01/30/19 08:00 40 01/30/19 08:00 133/77 01/30/19 08:00 84 01/30/19 08:00 Mechanical Ventilator Height (Feet): 5 Height (Inches): 6.00 Weight (Pounds): 155 Objective Gen: NAD HEENT: anicteric sclera. ETT CV: RRR. Resp: coarse. equal chest rise. Abd: soft. normoactive Bs+ Neuro: sedated Skin: RLE skin graft Microbiology Date/Time Source Procedure Growth Status 01/28/19 19:55 Sputum Gram Stain - Final Complete 01/28/19 19:55 Sputum Culture - Final Staphylococcus Aureus - Mrsa Complete Laboratory Tests Test 01/31/19 04:05 White Blood Count 20.6 K/UL (4.8-10.8) H Red Blood Count 4.27 M/UL (4.70-6.10) L Hemoglobin 13.2 G/DL (14.2-18.0) L Hematocrit 38.9 % (42.0-52.0) L Mean Corpuscular Volume 91 FL (80-99) Mean Corpuscular Hemoglobin 30.9 PG (27.0-31.0) Mean Corpuscular Hemoglobin Concent 33.9 G/DL (32.0-36.0) Red Cell Distribution Width 13.5 % (11.6-14.8) Platelet Count 313 K/UL (150-450) Mean Platelet Volume 4.9 FL (6.5-10.1) L Neutrophils (%) (Auto) % (45.0-75.0) Lymphocytes (%) (Auto) % (20.0-45.0) Monocytes (%) (Auto) % (1.0-10.0) Eosinophils (%) (Auto) % (0.0-3.0) Basophils (%) (Auto) % (0.0-2.0) Neutrophils % (Manual) Pending Lymphocytes % (Manual) Pending Platelet Estimate Pending Platelet Morphology Pending Sodium Level 140 MMOL/L (136-145) Potassium Level 3.9 MMOL/L (3.5-5.1) Chloride Level 103 MMOL/L (98-107) Carbon Dioxide Level 34 MMOL/L (21-32) H Anion Gap 3 mmol/L (5-15) L Blood Urea Nitrogen 19 mg/dL (7-18) H Creatinine 1.4 MG/DL (0.55-1.30) H Estimat Glomerular Filtration Rate 50.4 mL/min (>60) Glucose Level 185 MG/DL (74-106) H Uric Acid 5.0 MG/DL (2.6-7.2) Calcium Level 7.9 MG/DL (8.5-10.1) L Phosphorus Level 3.0 MG/DL (2.5-4.9) Magnesium Level 2.5 MG/DL (1.8-2.4) H Total Bilirubin 0.3 MG/DL (0.2-1.0) Direct Bilirubin 0.1 MG/DL (0.0-0.3) Aspartate Amino Transf (AST/SGOT) 40 U/L (15-37) H Alanine Aminotransferase (ALT/SGPT) 55 U/L (12-78) Alkaline Phosphatase 130 U/L (46-116) H Total Protein 6.1 G/DL (6.4-8.2) L Albumin 1.9 G/DL (3.4-5.0) L Current Medications Medications (Trade) Dose Ordered Sig/Ricardo Route PRN Reason Start Time Stop Time Status Last Admin Dose Admin Acetaminophen (Tylenol) 650 mg Q4H PRN ORAL fever 01/24/19 20:00 02/23/19 19:59 Albuterol/ Ipratropium (Albuterol/ Ipratropium) 3 ml Q4HRT PRN HHN sob 01/30/19 08:00 02/04/19 07:59 Amikacin Protocol (Amikacin pharmacy to dose) 1 ea DAILY PRN MISC PER RX PROTOCOL 01/25/19 20:45 02/24/19 20:44 Amikacin Sulfate 950 mg/Sodium Chloride 113.8 ml @ 113.8 mls/ hr Q36H IV 01/26/19 10:00 02/02/19 09:59 01/30/19 22:29 Ascorbic Acid (Vitamin C) 250 mg TWICE A DAY ORAL 01/27/19 18:00 02/26/19 17:59 01/30/19 17:17 Azithromycin (Zithromax) 250 mg DAILY ORAL 01/29/19 09:00 02/05/19 08:59 01/30/19 08:11 Chlorhexidine Gluconate (Roseanna-Hex 2%) 1 applic DAILY@2000 TOPIC 01/25/19 20:00 02/24/19 19:59 01/30/19 19:46 Dextrose (Dextrose 50%) 25 ml Q30M PRN IV Hypoglycemia 01/25/19 19:00 02/24/19 18:59 Dextrose (Dextrose 50%) 50 ml Q30M PRN IV Hypoglycemia 01/25/19 19:00 02/24/19 18:59 Dopamine HCl/ Dextrose 250 ml @ 0 mls/hr Q24H IV 01/28/19 10:45 02/27/19 10:44 01/30/19 21:05 Ertapenem 1 gm/ Sodium Chloride 55 ml @ 110 mls/hr Q24H IV 01/24/19 23:00 02/01/19 22:59 01/30/19 23:48 Heparin Sodium (Porcine) (Heparin 5000 units/ml) 5,000 units EVERY 12 HOURS SUBQ 01/24/19 21:00 02/23/19 20:59 01/30/19 21:06 Heparin Sodium/ Sodium Chloride (Heparin 1000 units/500ml Premix) 1,000 unit ONCE PRN IV PICC LINE 01/29/19 10:30 01/31/19 10:29 Hydrocortisone (Solu-CORTEF) 100 mg EVERY 8 HOURS IV 01/25/19 11:00 02/24/19 10:59 01/31/19 05:26 Insulin Aspart (NovoLOG) EVERY 6 HOURS SUBQ 01/26/19 00:00 02/25/19 00:00 01/31/19 05:28 Lidocaine HCl (Xylocaine 1% 30ml) 30 ml ONCE PRN INJ PICC LINE 01/29/19 10:30 01/31/19 10:30 Lorazepam (Ativan 2mg/ml 1ml) 2 mg Q2H PRN IV For Anxiety 01/30/19 08:00 02/06/19 07:59 Midodrine (Pro-Amatine) 10 mg THREE TIMES A DAY NG 01/30/19 13:00 03/01/19 12:59 01/30/19 17:17 Morphine Sulfate (Morphine Sulfate) 4 mg Q4H PRN IVP Severe Pain (Pain Scale 7-10) 01/30/19 08:00 02/06/19 07:59 01/30/19 08:39 Norepinephrine Bitartrate 8 mg/ Dextrose 500 ml @ 0 mls/hr Q24H IV 01/24/19 21:00 02/23/19 20:14 01/26/19 11:00 Pantoprazole (Protonix) 40 mg DAILY IVP 01/25/19 09:00 02/24/19 08:59 01/30/19 08:09 Polyethylene Glycol (Miralax) 17 gm DAILYPRN PRN ORAL Constipation 01/24/19 20:00 02/23/19 19:59 01/31/19 05:26 Potassium Chloride (K-Dur) 40 meq TWICE A DAY NG 01/27/19 11:45 02/26/19 11:44 01/30/19 17:17 Vancomycin HCl (Vanco rx to dose) 1 ea DAILY PRN MISC . 01/25/19 06:15 02/24/19 06:14 Vancomycin HCl 1 gm/Dextrose 275 ml @ 183.708 mls/hr Q24H IVPB 01/30/19 09:00 02/04/19 08:59 01/30/19 11:55 Pili Lenz MD Jan 31, 2019 08:01
[2019-01-31] MEDS: Midodrine 10mg tab NG SCH ×3 (08:17→17:47)
[2019-01-31] MEDS: Pantoprazole Inj IVP SCH (08:17)
[2019-01-31] MEDS: Ascorbic Acid 500mg tab ORAL SCH ×2 (08:19→17:47)
[2019-01-31] MEDS: Azithromycin 250mg tab ORAL SCH (08:19)
[2019-01-31] MEDS: DOPamine 400mg/250ml 250 ML IV SCH ×2 (08:22→22:40)
[2019-01-31] MEDS: Heparin 5000 units/ml inj SUBQ SCH ×2 (08:25→20:25)
--- NOTE | 2019-01-31 09:06 | General Progress Note ---
Assessment/Plan Problem List: (1) Renal failure (ARF), acute on chronic ICD Codes: N17.9 - Acute kidney failure, unspecified; N18.9 - Chronic kidney disease, unspecified SNOMED: 802876499 (2) Sepsis ICD Codes: A41.9 - Sepsis, unspecified organism SNOMED: 65196183 Qualifiers: Qualified Codes: A41.9 - Sepsis, unspecified organism (3) Malignant neoplasm of right kidney ICD Codes: C64.1 - Malignant neoplasm of right kidney, except renal pelvis SNOMED: 945048271 (4) Acute respiratory failure ICD Codes: J96.00 - Acute respiratory failure, unspecified whether with hypoxia or hypercapnia SNOMED: 99420087 (5) PVD (peripheral vascular disease) ICD Codes: I73.9 - Peripheral vascular disease, unspecified SNOMED: 893506372 Status: unchanged Assessment/Plan: vent abx wound care cbc bmp am ltach eval Subjective Constitutional: Reports: weakness Allergies: Coded Allergies: No Known Allergies (Unverified , 01/24/19) All Systems: reviewed and negative except above Subjective intubated in icu Objective Last 24 Hour Vital Signs Date Time Temp Pulse Resp B/P (MAP) Pulse Ox O2 Delivery O2 Flow Rate FiO2 01/31/19 08:59 53 20 35 01/31/19 08:30 98.3 74 16 94/55 (68) 98 01/31/19 08:22 121/51 01/31/19 08:00 35 01/31/19 08:00 75 21 118/72 (87) 98 01/31/19 08:00 Mechanical Ventilator 01/31/19 07:30 48 20 122/53 (76) 99 01/31/19 07:12 47 20 35 01/31/19 07:00 47 20 113/55 (74) 98 01/31/19 06:00 133/57 01/31/19 06:00 51 20 132/56 (81) 98 01/31/19 05:30 55 20 121/52 (75) 99 01/31/19 05:05 55 20 35 01/31/19 05:00 71 18 123/55 (77) 98 01/31/19 05:00 117/51 01/31/19 04:30 46 20 125/52 (76) 98 01/31/19 04:00 35 01/31/19 04:00 98.1 51 20 126/58 (80) 98 01/31/19 04:00 122/53 01/31/19 04:00 Mechanical Ventilator 01/31/19 04:00 60 01/31/19 03:30 51 20 121/62 (81) 98 01/31/19 03:09 64 19 35 01/31/19 03:00 121/58 01/31/19 03:00 53 20 132/68 (89) 98 01/31/19 02:30 53 21 112/58 (76) 98 01/31/19 02:00 50 20 119/58 (78) 98 01/31/19 02:00 119/58 01/31/19 01:45 50 20 121/59 (79) 98 01/31/19 01:30 77 24 113/56 (75) 98 01/31/19 01:25 50 20 35 01/31/19 01:00 81 26 131/65 (87) 99 01/31/19 01:00 131/65 01/31/19 00:45 72 19 127/67 (87) 97 01/31/19 00:30 52 19 130/74 (92) 97 01/31/19 00:15 54 18 122/63 (82) 96 01/31/19 00:00 Mechanical Ventilator 01/31/19 00:00 62 01/31/19 00:00 92/52 01/31/19 00:00 98.0 56 20 92/53 (66) 97 01/30/19 23:45 58 20 100/56 (71) 97 01/30/19 23:30 58 20 114/59 (77) 97 01/30/19 23:16 64 20 35 01/30/19 23:15 64 20 119/70 (86) 97 01/30/19 23:00 111 18 144/101 (115) 98 01/30/19 23:00 144/101 01/30/19 22:45 74 20 146/82 (103) 98 01/30/19 22:30 52 20 130/58 (82) 98 01/30/19 22:15 53 20 131/64 (86) 98 01/30/19 22:00 54 20 130/63 (85) 98 01/30/19 22:00 130/63 01/30/19 21:45 52 20 127/69 (88) 98 01/30/19 21:30 53 20 131/61 (84) 98 01/30/19 21:15 53 20 130/63 (85) 98 01/30/19 21:05 128/63 01/30/19 21:01 55 20 35 01/30/19 21:00 128/63 01/30/19 21:00 128/63 01/30/19 21:00 56 20 128/63 (84) 98 01/30/19 20:45 57 19 128/66 (86) 98 01/30/19 20:30 71 18 128/66 (86) 98 01/30/19 20:15 52 20 125/61 (82) 98 01/30/19 20:00 35 01/30/19 20:00 Mechanical Ventilator 01/30/19 20:00 113/56 01/30/19 20:00 98.3 52 20 113/56 (75) 98 01/30/19 20:00 54 01/30/19 19:30 61 22 130/65 (86) 97 01/30/19 19:02 55 20 35 01/30/19 19:00 129/62 01/30/19 19:00 54 20 129/62 (84) 98 01/30/19 18:00 70 20 127/64 (85) 98 01/30/19 18:00 125/68 01/30/19 17:30 50 20 118/60 (79) 97 01/30/19 17:03 51 20 35 01/30/19 17:00 53 20 82/49 (60) 97 01/30/19 17:00 82/49 01/30/19 16:30 55 20 114/57 (76) 97 01/30/19 16:00 58 01/30/19 16:00 Mechanical Ventilator 01/30/19 16:00 98.4 54 20 117/58 (77) 97 01/30/19 16:00 117/58 01/30/19 16:00 35 01/30/19 15:03 54 20 35 01/30/19 15:00 53 20 114/58 (76) 97 01/30/19 14:00 69 20 93/68 (76) 97 01/30/19 14:00 109/56 01/30/19 13:30 72 20 93/61 (72) 97 01/30/19 13:20 73 20 35 01/30/19 13:00 91/60 01/30/19 13:00 69 20 95/62 (73) 96 01/30/19 12:00 61 01/30/19 12:00 85/53 01/30/19 12:00 97.8 77 20 111/59 (76) 95 01/30/19 12:00 Mechanical Ventilator 01/30/19 12:00 35 01/30/19 11:30 67 20 127/61 (83) 95 01/30/19 11:19 35 01/30/19 11:02 73 22 40 01/30/19 11:00 64 22 127/67 (87) 96 01/30/19 11:00 115/60 01/30/19 10:30 60 22 127/69 (88) 97 01/30/19 10:00 79 36 135/76 (95) 97 01/30/19 10:00 130/69 01/30/19 09:37 65 22 40 01/30/19 09:30 61 23 130/68 (88) 98 01/30/19 09:09 98.8 Intake and Output 01/30/19 01/31/19 19:00 07:00 Intake Total 1584.600 ml 1049.910 ml Output Total 1340 ml 860 ml Balance 244.600 ml 189.910 ml Free Water 120 ml 100 ml IV Total 924.600 ml 409.910 ml Tube Feeding 540 ml 540 ml Output Urine Total 1340 ml 860 ml Laboratory Tests 01/31/19 04:05: White Blood Count 20.6H, Red Blood Count 4.27L, Hemoglobin 13.2L, Hematocrit 38.9L, Mean Corpuscular Volume 91, Mean Corpuscular Hemoglobin 30.9, Mean Corpuscular Hemoglobin Concent 33.9, Red Cell Distribution Width 13.5, Platelet Count 313, Mean Platelet Volume 4.9L, Neutrophils (%) (Auto) , Lymphocytes (%) ( Auto) , Monocytes (%) (Auto) , Eosinophils (%) (Auto) , Basophils (%) (Auto) , Differential Total Cells Counted 100, Neutrophils % (Manual) 88H, Lymphocytes % (Manual) 9L, Monocytes % (Manual) 3, Eosinophils % (Manual) 0, Basophils % ( Manual) 0, Band Neutrophils 0, Platelet Estimate Adequate, Platelet Morphology Normal, Red Blood Cell Morphology Normal, Sodium Level 140, Potassium Level 3.9 , Chloride Level 103, Carbon Dioxide Level 34H, Anion Gap 3L, Blood Urea Nitrogen 19H, Creatinine 1.4H, Estimat Glomerular Filtration Rate 50.4, Glucose Level 185H, Uric Acid 5.0, Calcium Level 7.9L, Phosphorus Level 3.0, Magnesium Level 2.5H, Total Bilirubin 0.3, Direct Bilirubin 0.1, Aspartate Amino Transf ( AST/SGOT) 40H, Alanine Aminotransferase (ALT/SGPT) 55, Alkaline Phosphatase 130H , Total Protein 6.1L, Albumin 1.9L 01/31/19 07:49: Arterial Blood pH 7.497H, Arterial Blood Partial Pressure CO2 37.7, Arterial Blood Partial Pressure O2 88.6, Arterial Blood HCO3 28.5H, Arterial Blood Oxygen Saturation 96.7, Arterial Blood Base Excess 5.2H, Kvng Test Positive Height (Feet): 5 Height (Inches): 6.00 Weight (Pounds): 155 General Appearance: lethargic EENT: normal ENT inspection Neck: normal alignment Cardiovascular: normal peripheral pulses, normal rate, regular rhythm Respiratory/Chest: chest wall non-tender, lungs clear, normal breath sounds Abdomen: normal bowel sounds, non tender, soft Extremities: normal inspection Edema: no edema noted Arm (L), no edema noted Arm (R), no edema noted Leg (L), no edema noted Leg (R), no edema noted Pedal (L), no edema noted Pedal (R), no edema noted Generalized Neurologic: motor weakness Skin: normal pigmentation, warm/dry Corey Short DO Jan 31, 2019 09:06
--- NOTE | 2019-01-31 09:18 | Pulmonolgy Critical Care Note ---
Critical Care - Asmt/Plan Assessment/Plan: ASSESSMENT Acute respiratory failure requiring intubation Septic shock Probably pneumonia Acute on chronic renal failure Anemia Sinus bradycardia Systolic dysfunction Cardiomyopathy with EF 30 to 35% COPD Diabetes mellitus Multiple pressure injury present on admission Schizophrenia Hypo Mg PLAN OF CARE ICU vent support , pulmonary toilet ABG this am, noted, better with AC 20 fup with CXR and ABG wean as tolerated when ready-failing off Levophed now on dopamine /not renal dose- 8 mcg/kg/min ; abx as per ID Echo with EF 30 to 35% global LV hypokinesis monitor renal parameters, lytes ; correct electrolytes as needed ; avoid nephrotoxic DVT prophylaxis BS management with SSI monitor H&H with goal to keep Hgb above 7 wound care as per surgeon recommendation strict aspiration precaution ; tube feeding supportive care case discussed and evaluated by supervising physician Critical Care - Objective Last 24 Hour Vital Signs Date Time Temp Pulse Resp B/P (MAP) Pulse Ox O2 Delivery O2 Flow Rate FiO2 01/31/19 08:59 53 20 35 01/31/19 08:30 98.3 74 16 94/55 (68) 98 01/31/19 08:22 121/51 01/31/19 08:00 35 01/31/19 08:00 75 21 118/72 (87) 98 01/31/19 08:00 Mechanical Ventilator 01/31/19 07:30 48 20 122/53 (76) 99 01/31/19 07:12 47 20 35 01/31/19 07:00 47 20 113/55 (74) 98 01/31/19 06:00 133/57 01/31/19 06:00 51 20 132/56 (81) 98 01/31/19 05:30 55 20 121/52 (75) 99 01/31/19 05:05 55 20 35 01/31/19 05:00 71 18 123/55 (77) 98 01/31/19 05:00 117/51 01/31/19 04:30 46 20 125/52 (76) 98 01/31/19 04:00 35 01/31/19 04:00 98.1 51 20 126/58 (80) 98 01/31/19 04:00 122/53 01/31/19 04:00 Mechanical Ventilator 01/31/19 04:00 60 01/31/19 03:30 51 20 121/62 (81) 98 01/31/19 03:09 64 19 35 01/31/19 03:00 121/58 01/31/19 03:00 53 20 132/68 (89) 98 01/31/19 02:30 53 21 112/58 (76) 98 01/31/19 02:00 50 20 119/58 (78) 98 01/31/19 02:00 119/58 01/31/19 01:45 50 20 121/59 (79) 98 01/31/19 01:30 77 24 113/56 (75) 98 01/31/19 01:25 50 20 35 01/31/19 01:00 81 26 131/65 (87) 99 01/31/19 01:00 131/65 01/31/19 00:45 72 19 127/67 (87) 97 01/31/19 00:30 52 19 130/74 (92) 97 01/31/19 00:15 54 18 122/63 (82) 96 01/31/19 00:00 Mechanical Ventilator 01/31/19 00:00 62 01/31/19 00:00 92/52 01/31/19 00:00 98.0 56 20 92/53 (66) 97 01/30/19 23:45 58 20 100/56 (71) 97 01/30/19 23:30 58 20 114/59 (77) 97 01/30/19 23:16 64 20 35 01/30/19 23:15 64 20 119/70 (86) 97 01/30/19 23:00 111 18 144/101 (115) 98 01/30/19 23:00 144/101 01/30/19 22:45 74 20 146/82 (103) 98 01/30/19 22:30 52 20 130/58 (82) 98 01/30/19 22:15 53 20 131/64 (86) 98 01/30/19 22:00 54 20 130/63 (85) 98 01/30/19 22:00 130/63 01/30/19 21:45 52 20 127/69 (88) 98 01/30/19 21:30 53 20 131/61 (84) 98 01/30/19 21:15 53 20 130/63 (85) 98 01/30/19 21:05 128/63 11/16/19 21:01 55 20 35 01/30/19 21:00 128/63 01/30/19 21:00 128/63 01/30/19 21:00 56 20 128/63 (84) 98 01/30/19 20:45 57 19 128/66 (86) 98 01/30/19 20:30 71 18 128/66 (86) 98 01/30/19 20:15 52 20 125/61 (82) 98 01/30/19 20:00 35 01/30/19 20:00 Mechanical Ventilator 01/30/19 20:00 113/56 01/30/19 20:00 98.3 52 20 113/56 (75) 98 01/30/19 20:00 54 01/30/19 19:30 61 22 130/65 (86) 97 01/30/19 19:02 55 20 35 01/30/19 19:00 129/62 01/30/19 19:00 54 20 129/62 (84) 98 01/30/19 18:00 70 20 127/64 (85) 98 01/30/19 18:00 125/68 01/30/19 17:30 50 20 118/60 (79) 97 01/30/19 17:03 51 20 35 01/30/19 17:00 53 20 82/49 (60) 97 01/30/19 17:00 82/49 01/30/19 16:30 55 20 114/57 (76) 97 01/30/19 16:00 58 01/30/19 16:00 Mechanical Ventilator 01/30/19 16:00 98.4 54 20 117/58 (77) 97 01/30/19 16:00 117/58 01/30/19 16:00 35 01/30/19 15:03 54 20 35 01/30/19 15:00 53 20 114/58 (76) 97 01/30/19 14:00 69 20 93/68 (76) 97 01/30/19 14:00 109/56 01/30/19 13:30 72 20 93/61 (72) 97 01/30/19 13:20 73 20 35 01/30/19 13:00 91/60 01/30/19 13:00 69 20 95/62 (73) 96 01/30/19 12:00 61 01/30/19 12:00 85/53 01/30/19 12:00 97.8 77 20 111/59 (76) 95 01/30/19 12:00 Mechanical Ventilator 01/30/19 12:00 35 01/30/19 11:30 67 20 127/61 (83) 95 01/30/19 11:19 35 01/30/19 11:02 73 22 40 01/30/19 11:00 64 22 127/67 (87) 96 01/30/19 11:00 115/60 01/30/19 10:30 60 22 127/69 (88) 97 01/30/19 10:00 79 36 135/76 (95) 97 01/30/19 10:00 130/69 01/30/19 09:37 65 22 40 01/30/19 09:30 61 23 130/68 (88) 98 Objective: Status: sedated Condition: critical HEENT: atraumatic, normocephalic, OP with ET in place, intact, OP with TF Lungs: rhonchi - few isolated Heart: alanna, Abdomen: soft, non-tender, [place] Extremities: no C/C/E Micro: Microbiology Date/Time Source Procedure Growth Status 01/28/19 19:55 Sputum Gram Stain - Final Complete 01/28/19 19:55 Sputum Culture - Final Staphylococcus Aureus - Mrsa Complete Accucheck: 199 Critical Care - Subjective ROS Limited/Unobtainable: Yes Condition: critical IV Access: PICC - RUE intact EKG Rhythm: Sinus Bradycardia FI02: 35 Vent Support Breath Rate: 20 Vent Support Mode: AC Vent Tidal Volume: 500 Sputum Amount: Small PEEP: 5.0 PIP: 23 Drips: Dopamine gtt at 8 mcg/kg/min Tube Feeding Amount: 45 I&O: Intake and Output 01/30/19 01/31/19 19:00 07:00 Intake Total 1584.600 ml 1049.910 ml Output Total 1340 ml 860 ml Balance 244.600 ml 189.910 ml Free Water 120 ml 100 ml IV Total 924.600 ml 409.910 ml Tube Feeding 540 ml 540 ml Output Urine Total 1340 ml 860 ml CXR: CXR 01/30 1. Overall similar patchy opacities in the lungs, most prominently in the right upper lung and right mid and lower lung. Probable small bilateral pleural effusions. 2. Endotracheal tube terminates in the region of the lower thoracic aorta above the cristina. Enteric tube courses past the diaphragm and out of the [id number], but the sidehole is seen near the GE junction. ET-Tube: 7.5 ET Position: 26 Thelma Cano NP Jan 31, 2019 09:18
--- NOTE | 2019-01-31 10:00 | NUR ---
NURSE NOTES: Pt remains on 2 point wrist restraints for safety. Pulses palpable. Dopamine continues to run at 8mcg/kg/min. Heart rate continues to be bradycardic, 40's-50's when pt is asleep. Dr Gonzalez assessed pt. Updated him on patients current condition. No new orders at this time.
--- NOTE | 2019-01-31 10:05 | Nephrology Progress Note ---
Assessment/Plan Problem List: (1) Renal failure (ARF), acute on chronic (2) Acute respiratory failure (3) Septic shock (4) Cardiomyopathy (5) Bradyarrhythmia Assessment Renal failure- Likely acute on Chronic- Cr lower Acute respiratory failure- intubated on Vent Septic Shock- On pressors COPD PVD Schizophrenia Plan stop IV fluid renal dose dopamin for low HR K supplement down on hydration One dose IV Lasix mag and Phos and K supplement as needed 2D Echo Low Ej Fx - Global Hypokinesis Avoid nephrotoxics afterload reduction monitor renal parameters urine studies ADRIAN IMPRESSION: Nonobstructive stones in the left kidney demonstrated. Bilateral renal cysts. Subjective ROS Limited/Unobtainable: Yes Objective Objective Last 24 Hour Vital Signs Date Time Temp Pulse Resp B/P (MAP) Pulse Ox O2 Delivery O2 Flow Rate FiO2 01/31/19 08:59 53 20 35 01/31/19 08:30 98.3 74 16 94/55 (68) 98 01/31/19 08:22 121/51 01/31/19 08:00 35 01/31/19 08:00 75 21 118/72 (87) 98 01/31/19 08:00 Mechanical Ventilator 01/31/19 07:30 48 20 122/53 (76) 99 01/31/19 07:12 47 20 35 01/31/19 07:00 47 20 113/55 (74) 98 01/31/19 06:00 133/57 01/31/19 06:00 51 20 132/56 (81) 98 01/31/19 05:30 55 20 121/52 (75) 99 01/31/19 05:05 55 20 35 01/31/19 05:00 71 18 123/55 (77) 98 01/31/19 05:00 117/51 01/31/19 04:30 46 20 125/52 (76) 98 01/31/19 04:00 35 01/31/19 04:00 98.1 51 20 126/58 (80) 98 01/31/19 04:00 122/53 01/31/19 04:00 Mechanical Ventilator 01/31/19 04:00 60 01/31/19 03:30 51 20 121/62 (81) 98 01/31/19 03:09 64 19 35 01/31/19 03:00 121/58 01/31/19 03:00 53 20 132/68 (89) 98 01/31/19 02:30 53 21 112/58 (76) 98 01/31/19 02:00 50 20 119/58 (78) 98 01/31/19 02:00 119/58 01/31/19 01:45 50 20 121/59 (79) 98 01/31/19 01:30 77 24 113/56 (75) 98 01/31/19 01:25 50 20 35 01/31/19 01:00 81 26 131/65 (87) 99 01/31/19 01:00 131/65 01/31/19 00:45 72 19 127/67 (87) 97 01/31/19 00:30 52 19 130/74 (92) 97 01/31/19 00:15 54 18 122/63 (82) 96 01/31/19 00:00 Mechanical Ventilator 01/31/19 00:00 62 01/31/19 00:00 92/52 01/31/19 00:00 98.0 56 20 92/53 (66) 97 01/30/19 23:45 58 20 100/56 (71) 97 01/30/19 23:30 58 20 114/59 (77) 97 01/30/19 23:16 64 20 35 01/30/19 23:15 64 20 119/70 (86) 97 01/30/19 23:00 111 18 144/101 (115) 98 01/30/19 23:00 144/101 01/30/19 22:45 74 20 146/82 (103) 98 01/30/19 22:30 52 20 130/58 (82) 98 01/30/19 22:15 53 20 131/64 (86) 98 01/30/19 22:00 54 20 130/63 (85) 98 01/30/19 22:00 130/63 01/30/19 21:45 52 20 127/69 (88) 98 01/30/19 21:30 53 20 131/61 (84) 98 01/30/19 21:15 53 20 130/63 (85) 98 01/30/19 21:05 128/63 01/30/19 21:01 55 20 35 01/30/19 21:00 128/63 01/30/19 21:00 128/63 01/30/19 21:00 56 20 128/63 (84) 98 01/30/19 20:45 57 19 128/66 (86) 98 01/30/19 20:30 71 18 128/66 (86) 98 01/30/19 20:15 52 20 125/61 (82) 98 01/30/19 20:00 35 01/30/19 20:00 Mechanical Ventilator 01/30/19 20:00 113/56 01/30/19 20:00 98.3 52 20 113/56 (75) 98 01/30/19 20:00 54 01/30/19 19:30 61 22 130/65 (86) 97 01/30/19 19:02 55 20 35 01/30/19 19:00 129/62 01/30/19 19:00 54 20 129/62 (84) 98 01/30/19 18:00 70 20 127/64 (85) 98 01/30/19 18:00 125/68 01/30/19 17:30 50 20 118/60 (79) 97 01/30/19 17:03 51 20 35 01/30/19 17:00 53 20 82/49 (60) 97 01/30/19 17:00 82/49 01/30/19 16:30 55 20 114/57 (76) 97 01/30/19 16:00 58 01/30/19 16:00 Mechanical Ventilator 01/30/19 16:00 98.4 54 20 117/58 (77) 97 01/30/19 16:00 117/58 01/30/19 16:00 35 01/30/19 15:03 54 20 35 01/30/19 15:00 53 20 114/58 (76) 97 01/30/19 14:00 69 20 93/68 (76) 97 01/30/19 14:00 109/56 01/30/19 13:30 72 20 93/61 (72) 97 01/30/19 13:20 73 20 35 01/30/19 13:00 91/60 01/30/19 13:00 69 20 95/62 (73) 96 01/30/19 12:00 61 01/30/19 12:00 85/53 01/30/19 12:00 97.8 77 20 111/59 (76) 95 01/30/19 12:00 Mechanical Ventilator 01/30/19 12:00 35 01/30/19 11:30 67 20 127/61 (83) 95 01/30/19 11:19 35 01/30/19 11:02 73 22 40 01/30/19 11:00 64 22 127/67 (87) 96 01/30/19 11:00 115/60 01/30/19 10:30 60 22 127/69 (88) 97 Intake and Output 01/30/19 01/31/19 18:59 06:59 Intake Total 1524.600 ml 1131.342 ml Output Total 1300 ml 865 ml Balance 224.600 ml 266.342 ml Free Water 60 ml 160 ml IV Total 924.600 ml 431.342 ml Tube Feeding 540 ml 540 ml Output Urine Total 1300 ml 865 ml Laboratory Tests 01/31/19 04:05: White Blood Count 20.6H, Red Blood Count 4.27L, Hemoglobin 13.2L, Hematocrit 38.9L, Mean Corpuscular Volume 91, Mean Corpuscular Hemoglobin 30.9, Mean Corpuscular Hemoglobin Concent 33.9, Red Cell Distribution Width 13.5, Platelet Count 313, Mean Platelet Volume 4.9L, Neutrophils (%) (Auto) , Lymphocytes (%) ( Auto) , Monocytes (%) (Auto) , Eosinophils (%) (Auto) , Basophils (%) (Auto) , Differential Total Cells Counted 100, Neutrophils % (Manual) 88H, Lymphocytes % (Manual) 9L, Monocytes % (Manual) 3, Eosinophils % (Manual) 0, Basophils % ( Manual) 0, Band Neutrophils 0, Platelet Estimate Adequate, Platelet Morphology Normal, Red Blood Cell Morphology Normal, Sodium Level 140, Potassium Level 3.9 , Chloride Level 103, Carbon Dioxide Level 34H, Anion Gap 3L, Blood Urea Nitrogen 19H, Creatinine 1.4H, Estimat Glomerular Filtration Rate 50.4, Glucose Level 185H, Uric Acid 5.0, Calcium Level 7.9L, Phosphorus Level 3.0, Magnesium Level 2.5H, Total Bilirubin 0.3, Direct Bilirubin 0.1, Aspartate Amino Transf ( AST/SGOT) 40H, Alanine Aminotransferase (ALT/SGPT) 55, Alkaline Phosphatase 130H , Total Protein 6.1L, Albumin 1.9L 01/31/19 07:49: Arterial Blood pH 7.497H, Arterial Blood Partial Pressure CO2 37.7, Arterial Blood Partial Pressure O2 88.6, Arterial Blood HCO3 28.5H, Arterial Blood Oxygen Saturation 96.7, Arterial Blood Base Excess 5.2H, Kvng Test Positive Height (Feet): 5 Height (Inches): 6.00 Weight (Pounds): 155 General Appearance: no apparent distress EENT: other - vented Cardiovascular: bradycardia Respiratory/Chest: decreased breath sounds Abdomen: distended Bienvenido Gonzalez MD Jan 31, 2019 10:05
--- NOTE | 2019-01-31 10:31 | Diagnostic Imaging Report ---
EXAM: XR Chest, 1 View CLINICAL HISTORY: SOB TECHNIQUE: Frontal view of the chest. COMPARISON: Chest radiograph on 01 30 2019 FINDINGS: Hardware: Endotracheal tube terminates in the region of the mid lower thoracic trachea. Right-sided PICC line terminates in the region of the SVC. Enteric tube terminates in the region of the stomach with sidehole near the GE junction. Lungs pleura: Similar small right pleural effusion and possible small left pleural effusion. Stable patchy opacities at the lung bases and lung apices. Heart mediastinum: Atherosclerotic calcifications of the aorta. No cardiomegaly. Soft tissues: Unremarkable. Bones: No acute fracture. Degenerative changes of the spine. Upper abdomen: Normal. IMPRESSION: 1. Similar small right pleural effusion and possible small left pleural effusion. Stable patchy opacities at the lung bases and lung apices. 2. Stable lines and tubes.
--- NOTE | 2019-01-31 11:00 | NUR ---
NURSE NOTES: Dopamine 8mcg/kg/min decreased to Dopamine 6mcg/kg/min. B/P: 145/90, HR: 121
[2019-01-31] MEDS ORDERED: Tubing IV Secondary IV ONE ×2 (11:04→11:05)
[2019-01-31] MEDS ORDERED: NS 275ml ONE (11:04)
[2019-01-31] MEDS ORDERED: Sterile Water Irrig 1000ml IRRIG ONE (11:05)
--- NOTE | 2019-01-31 11:10 | Surgery Progress Note ---
Surgery Progress Note Subjective Additional Comments more awake and responsive today on vent support comfortable appearing labs noted Objective Last 24 Hour Vital Signs Date Time Temp Pulse Resp B/P (MAP) Pulse Ox O2 Delivery O2 Flow Rate FiO2 01/31/19 10:00 132/58 01/31/19 10:00 54 20 134/55 (81) 98 01/31/19 09:30 82 20 143/73 (96) 98 01/31/19 09:00 53 20 134/60 (84) 99 01/31/19 09:00 137/56 01/31/19 08:59 53 20 35 01/31/19 08:30 98.3 74 16 94/55 (68) 98 01/31/19 08:22 121/51 01/31/19 08:00 35 01/31/19 08:00 118/72 01/31/19 08:00 75 21 118/72 (87) 98 01/31/19 08:00 Mechanical Ventilator 01/31/19 07:50 49 01/31/19 07:30 48 20 122/53 (76) 99 01/31/19 07:12 47 20 35 01/31/19 07:00 123/54 01/31/19 07:00 47 20 113/55 (74) 98 01/31/19 06:00 133/57 01/31/19 06:00 51 20 132/56 (81) 98 01/31/19 05:30 55 20 121/52 (75) 99 01/31/19 05:05 55 20 35 01/31/19 05:00 71 18 123/55 (77) 98 01/31/19 05:00 117/51 01/31/19 04:30 46 20 125/52 (76) 98 01/31/19 04:00 35 01/31/19 04:00 98.1 51 20 126/58 (80) 98 01/31/19 04:00 122/53 01/31/19 04:00 Mechanical Ventilator 01/31/19 04:00 60 01/31/19 03:30 51 20 121/62 (81) 98 01/31/19 03:09 64 19 35 01/31/19 03:00 121/58 01/31/19 03:00 53 20 132/68 (89) 98 01/31/19 02:30 53 21 112/58 (76) 98 01/31/19 02:00 50 20 119/58 (78) 98 01/31/19 02:00 119/58 01/31/19 01:45 50 20 121/59 (79) 98 01/31/19 01:30 77 24 113/56 (75) 98 01/31/19 01:25 50 20 35 01/31/19 01:00 81 26 131/65 (87) 99 01/31/19 01:00 131/65 01/31/19 00:45 72 19 127/67 (87) 97 01/31/19 00:30 52 19 130/74 (92) 97 01/31/19 00:15 54 18 122/63 (82) 96 01/31/19 00:00 Mechanical Ventilator 01/31/19 00:00 62 01/31/19 00:00 92/52 01/31/19 00:00 98.0 56 20 92/53 (66) 97 01/30/19 23:45 58 20 100/56 (71) 97 01/30/19 23:30 58 20 114/59 (77) 97 01/30/19 23:16 64 20 35 01/30/19 23:15 64 20 119/70 (86) 97 01/30/19 23:00 111 18 144/101 (115) 98 01/30/19 23:00 144/101 01/30/19 22:45 74 20 146/82 (103) 98 01/30/19 22:30 52 20 130/58 (82) 98 01/30/19 22:15 53 20 131/64 (86) 98 01/30/19 22:00 54 20 130/63 (85) 98 01/30/19 22:00 130/63 01/30/19 21:45 52 20 127/69 (88) 98 01/30/19 21:30 53 20 131/61 (84) 98 01/30/19 21:15 53 20 130/63 (85) 98 01/30/19 21:05 128/63 01/30/19 21:01 55 20 35 01/30/19 21:00 128/63 01/30/19 21:00 128/63 01/30/19 21:00 56 20 128/63 (84) 98 01/30/19 20:45 57 19 128/66 (86) 98 01/30/19 20:30 71 18 128/66 (86) 98 01/30/19 20:15 52 20 125/61 (82) 98 01/30/19 20:00 35 01/30/19 20:00 Mechanical Ventilator 01/30/19 20:00 113/56 01/30/19 20:00 98.3 52 20 113/56 (75) 98 01/30/19 20:00 54 01/30/19 19:30 61 22 130/65 (86) 97 01/30/19 19:02 55 20 35 01/30/19 19:00 129/62 01/30/19 19:00 54 20 129/62 (84) 98 01/30/19 18:00 70 20 127/64 (85) 98 01/30/19 18:00 125/68 01/30/19 17:30 50 20 118/60 (79) 97 01/30/19 17:03 51 20 35 01/30/19 17:00 53 20 82/49 (60) 97 01/30/19 17:00 82/49 01/30/19 16:30 55 20 114/57 (76) 97 01/30/19 16:00 58 01/30/19 16:00 Mechanical Ventilator 01/30/19 16:00 98.4 54 20 117/58 (77) 97 01/30/19 16:00 117/58 01/30/19 16:00 35 01/30/19 15:03 54 20 35 01/30/19 15:00 53 20 114/58 (76) 97 01/30/19 14:00 69 20 93/68 (76) 97 01/30/19 14:00 109/56 01/30/19 13:30 72 20 93/61 (72) 97 01/30/19 13:20 73 20 35 01/30/19 13:00 91/60 01/30/19 13:00 69 20 95/62 (73) 96 01/30/19 12:00 61 01/30/19 12:00 85/53 01/30/19 12:00 97.8 77 20 111/59 (76) 95 01/30/19 12:00 Mechanical Ventilator 01/30/19 12:00 35 01/30/19 11:30 67 20 127/61 (83) 95 01/30/19 11:19 35 I&O Intake and Output 01/30/19 01/31/19 19:00 07:00 Intake Total 1584.600 ml 1071.342 ml Output Total 1340 ml 860 ml Balance 244.600 ml 211.342 ml Free Water 120 ml 100 ml IV Total 924.600 ml 431.342 ml Tube Feeding 540 ml 540 ml Output Urine Total 1340 ml 860 ml Dressing: other Wound: other Drains: other Cardiovascular: RSR Respiratory: decreased breath sounds Abdomen: soft, present bowel sounds Extremities: no cyanosis Laboratory Tests Test 01/31/19 04:05 01/31/19 07:49 White Blood Count 20.6 K/UL (4.8-10.8) H Red Blood Count 4.27 M/UL (4.70-6.10) L Hemoglobin 13.2 G/DL (14.2-18.0) L Hematocrit 38.9 % (42.0-52.0) L Mean Corpuscular Volume 91 FL (80-99) Mean Corpuscular Hemoglobin 30.9 PG (27.0-31.0) Mean Corpuscular Hemoglobin Concent 33.9 G/DL (32.0-36.0) Red Cell Distribution Width 13.5 % (11.6-14.8) Platelet Count 313 K/UL (150-450) Mean Platelet Volume 4.9 FL (6.5-10.1) L Neutrophils (%) (Auto) % (45.0-75.0) Lymphocytes (%) (Auto) % (20.0-45.0) Monocytes (%) (Auto) % (1.0-10.0) Eosinophils (%) (Auto) % (0.0-3.0) Basophils (%) (Auto) % (0.0-2.0) Differential Total Cells Counted 100 Neutrophils % (Manual) 88 % (45-75) H Lymphocytes % (Manual) 9 % (20-45) L Monocytes % (Manual) 3 % (1-10) Eosinophils % (Manual) 0 % (0-3) Basophils % (Manual) 0 % (0-2) Band Neutrophils 0 % (0-8) Platelet Estimate Adequate Platelet Morphology Normal Red Blood Cell Morphology Normal Sodium Level 140 MMOL/L (136-145) Potassium Level 3.9 MMOL/L (3.5-5.1) Chloride Level 103 MMOL/L (98-107) Carbon Dioxide Level 34 MMOL/L (21-32) H Anion Gap 3 mmol/L (5-15) L Blood Urea Nitrogen 19 mg/dL (7-18) H Creatinine 1.4 MG/DL (0.55-1.30) H Estimat Glomerular Filtration Rate 50.4 mL/min (>60) Glucose Level 185 MG/DL (74-106) H Uric Acid 5.0 MG/DL (2.6-7.2) Calcium Level 7.9 MG/DL (8.5-10.1) L Phosphorus Level 3.0 MG/DL (2.5-4.9) Magnesium Level 2.5 MG/DL (1.8-2.4) H Total Bilirubin 0.3 MG/DL (0.2-1.0) Direct Bilirubin 0.1 MG/DL (0.0-0.3) Aspartate Amino Transf (AST/SGOT) 40 U/L (15-37) H Alanine Aminotransferase (ALT/SGPT) 55 U/L (12-78) Alkaline Phosphatase 130 U/L (46-116) H Total Protein 6.1 G/DL (6.4-8.2) L Albumin 1.9 G/DL (3.4-5.0) L Arterial Blood pH 7.497 (7.350-7.450) Arterial Blood Partial Pressure CO2 37.7 mmHg (35.0-45.0) Arterial Blood Partial Pressure O2 88.6 mmHg (75.0-100.0) Arterial Blood HCO3 28.5 mmol/L (22.0-26.0) H Arterial Blood Oxygen Saturation 96.7 % (95-100) Arterial Blood Base Excess 5.2 (-2-2) H Kvng Test Positive Plan Problems: (1) Sepsis Assessment & Plan: afebrile, HD improving tachycardic leukocytosis lactic acidosis resolved ill appearing in ICU on support -IV fluids resuscitation -IV abx as per ID -trend labs -CXR noted -cont tube feeds -will follow with recs thank you (2) Septic shock (3) Wound, open Assessment & Plan: Patient presented on admission with multiple pressure injuries being identified. Non-blanching erythema without induration noted to sacrum ,Right and Left buttocks. Scattered areas that are darker and maroon in color noted within base of wound. Scrotum is also erythematous. Unstageable pressure injury noted to Left heel. Base of wound is 100% necrotic but soft. Erythematous margins with surrounding non-blanching erythema.(L)3.2cm x (W)3cm. no drainage Right heel is boggy with non-blanching erythema.. Keloid scar noted distal R tibia. Partial thickness ulcer noted to dorsal R foot. Base of wound is moist and viable. Small amt serous exudate noted. Scattered small dry scabs noted to dorsal R foot. Tx.Plan: Swab Dorsal R foot and R heel with Betadine. Cover with Optifoam drsg. Change every 3 days and prn. Apply Moisture Barrier Paste to buttocks. Cover sacrum with Optifoam drsg. Change every 3 days and prn. Apply Cavilon Skin Barrier to L heel.Cover with Optifoam drsg. Change every 7 days and prn. APM/JELLY mattress. Reposition at least every 2hours or as tolerated. Off-load heels with pillow. Nutritional Optimization Will monitor while in critical condition DAILY ESTIMATED NEEDS: Needs based on Critical care, sepsis, wounds 69kg 22-30 kcals/kg 5668-1159 total kcals 1.25-2 g protein/kg 86-138 g total protein 25-30 mL/kg 5169-2890 total fluid mLs NUTRITION DIAGNOSIS: Increased kcal and pro needs r/t sepsis, wound healing, and underweight status as evidenced by pt w respiratory distress now intubated, critically elev WBC (*29.7), elev BG (200's), w/ multiple wounds (refer to eval), pt is @88% if [place] Body Weight. CURRENT TF: Glucerna 1.2 @30ml ENTERAL NUTRITION RECOMMENDATIONS: VITAL AF 1.2 @60ml/hr x24 hrs to provide 1440ml, 1728 kcal, 108g pro, 1168ml free H2O - WITH HEMODYNAMIC STABILITY, rec TF change to VITAL 1.2 to better meet est needs. Start @20ml/hr for 6 hrs. Advance as tolerated 10ml/hr q4-6 hrs to goal. - Flush per MD. HOB over 30 degrees If pt remains on pressor support, rec trophic feeds of Vital 1.2 @5-10ml/hr to maintain gut integrity. ------ ADDITIONAL RECOMMENDATIONS: 1) Per SNF: HT 71 inches, 152 lbs (69.1kg) 2) Wound care: Add DANIELA in 4oz water BID via OGT + VIT C 250mg BID (f/up w/ WC specialist) 3) Monitor lytes daily, replete as needed 4) Daily calibrated bed scale wts Mauricio Anne Jan 31, 2019 11:10
--- NOTE | 2019-01-31 14:00 | NUR ---
NURSE NOTES: Pt repositioned and oral care completed. No distress noted at this time. Pt remains on Dopamine 6mcg/kg/min. Will continue to monitor.
--- NOTE | 2019-01-31 14:07 | Cardiology Progress Note ---
Assessment/Plan Problem List: (1) Cardiomyopathy (2) COPD (chronic obstructive pulmonary disease) (3) Sepsis (4) Chronic kidney disease (5) Acute respiratory failure (6) Septic shock Status: stable, progressing Status Narrative Mr Riojas remains sedated/ on vent . Dopamine is being weaned. His HRs have improved, to 70s, sinus rhythm, and BP 90s systolic Cultures - + staph aureus in sputum. CXR w/ upper lobe infiltrates. He has cardiomyopathy, ? ischemic vs dilated, w/ EF 30-35% by echo this adm Assessment/Plan Continue vent support, wean as tolerated Attempt to wean off dopamine, keeping MAP > 60 Iv antibiotics and followup culture results. Decreased LV systolic fxn by echo, but does not clinically appear in CHF. Monitor vol status. Consider w/u for ischemia when more stable. Subjective ROS Limited/Unobtainable: Yes Subjective Intubated, opens eyes to voice Objective Last 24 Hour Vital Signs Date Time Temp Pulse Resp B/P (MAP) Pulse Ox O2 Delivery O2 Flow Rate FiO2 01/31/19 13:30 107 20 131/77 (95) 98 01/31/19 13:00 118 22 144/91 (108) 100 01/31/19 13:00 146/87 01/31/19 12:54 108 20 35 01/31/19 12:30 90 19 140/77 (98) 98 01/31/19 12:00 Mechanical Ventilator 01/31/19 12:00 35 01/31/19 12:00 145/76 01/31/19 12:00 98.7 104 25 142/80 (100) 97 01/31/19 11:30 118 27 130/77 (94) 96 01/31/19 11:27 120 01/31/19 11:00 123 17 145/90 (108) 98 01/31/19 11:00 145/90 01/31/19 10:56 75 20 35 01/31/19 10:00 132/58 01/31/19 10:00 54 20 134/55 (81) 98 01/31/19 09:30 82 20 143/73 (96) 98 01/31/19 09:00 53 20 134/60 (84) 99 01/31/19 09:00 137/56 01/31/19 08:59 53 20 35 01/31/19 08:30 98.3 74 16 94/55 (68) 98 01/31/19 08:22 121/51 01/31/19 08:00 35 01/31/19 08:00 118/72 01/31/19 08:00 75 21 118/72 (87) 98 01/31/19 08:00 Mechanical Ventilator 01/31/19 07:50 49 01/31/19 07:30 48 20 122/53 (76) 99 01/31/19 07:12 47 20 35 01/31/19 07:00 123/54 01/31/19 07:00 47 20 113/55 (74) 98 01/31/19 06:00 133/57 01/31/19 06:00 51 20 132/56 (81) 98 01/31/19 05:30 55 20 121/52 (75) 99 01/31/19 05:05 55 20 35 01/31/19 05:00 71 18 123/55 (77) 98 01/31/19 05:00 117/51 01/31/19 04:30 46 20 125/52 (76) 98 01/31/19 04:00 35 01/31/19 04:00 98.1 51 20 126/58 (80) 98 01/31/19 04:00 122/53 01/31/19 04:00 Mechanical Ventilator 01/31/19 04:00 60 01/31/19 03:30 51 20 121/62 (81) 98 01/31/19 03:09 64 19 35 01/31/19 03:00 121/58 01/31/19 03:00 53 20 132/68 (89) 98 01/31/19 02:30 53 21 112/58 (76) 98 01/31/19 02:00 50 20 119/58 (78) 98 01/31/19 02:00 119/58 01/31/19 01:45 50 20 121/59 (79) 98 01/31/19 01:30 77 24 113/56 (75) 98 01/31/19 01:25 50 20 35 01/31/19 01:00 81 26 131/65 (87) 99 01/31/19 01:00 131/65 01/31/19 00:45 72 19 127/67 (87) 97 01/31/19 00:30 52 19 130/74 (92) 97 01/31/19 00:15 54 18 122/63 (82) 96 01/31/19 00:00 Mechanical Ventilator 01/31/19 00:00 62 01/31/19 00:00 92/52 01/31/19 00:00 98.0 56 20 92/53 (66) 97 01/30/19 23:45 58 20 100/56 (71) 97 01/30/19 23:30 58 20 114/59 (77) 97 01/30/19 23:16 64 20 35 01/30/19 23:15 64 20 119/70 (86) 97 01/30/19 23:00 111 18 144/101 (115) 98 01/30/19 23:00 144/101 01/30/19 22:45 74 20 146/82 (103) 98 01/30/19 22:30 52 20 130/58 (82) 98 01/30/19 22:15 53 20 131/64 (86) 98 01/30/19 22:00 54 20 130/63 (85) 98 01/30/19 22:00 130/63 01/30/19 21:45 52 20 127/69 (88) 98 01/30/19 21:30 53 20 131/61 (84) 98 01/30/19 21:15 53 20 130/63 (85) 98 01/30/19 21:05 128/63 01/30/19 21:01 55 20 35 01/30/19 21:00 128/63 01/30/19 21:00 128/63 01/30/19 21:00 56 20 128/63 (84) 98 01/30/19 20:45 57 19 128/66 (86) 98 01/30/19 20:30 71 18 128/66 (86) 98 01/30/19 20:15 52 20 125/61 (82) 98 01/30/19 20:00 35 01/30/19 20:00 Mechanical Ventilator 01/30/19 20:00 113/56 01/30/19 20:00 98.3 52 20 113/56 (75) 98 01/30/19 20:00 54 01/30/19 19:30 61 22 130/65 (86) 97 01/30/19 19:02 55 20 35 01/30/19 19:00 129/62 01/30/19 19:00 54 20 129/62 (84) 98 01/30/19 18:00 70 20 127/64 (85) 98 01/30/19 18:00 125/68 01/30/19 17:30 50 20 118/60 (79) 97 01/30/19 17:03 51 20 35 01/30/19 17:00 53 20 82/49 (60) 97 01/30/19 17:00 82/49 01/30/19 16:30 55 20 114/57 (76) 97 01/30/19 16:00 58 01/30/19 16:00 Mechanical Ventilator 01/30/19 16:00 98.4 54 20 117/58 (77) 97 01/30/19 16:00 117/58 01/30/19 16:00 35 01/30/19 15:03 54 20 35 01/30/19 15:00 53 20 114/58 (76) 97 General Appearance: WD/WN, on vent EENT: PERRL/EOMI, other - et , og tubes Neck: no JVD Rhythm: NSR, SB Cardiovascular: bradycardia, systolic murmur Respiratory/Chest: lungs clear Abdomen: non tender, soft, no mass Extremities: no swelling, other - r foot surg scar, dressing over ulceration Intake and Output 01/30/19 01/31/19 18:59 06:59 Intake Total 1524.600 ml 1131.342 ml Output Total 1300 ml 865 ml Balance 224.600 ml 266.342 ml Free Water 60 ml 160 ml IV Total 924.600 ml 431.342 ml Tube Feeding 540 ml 540 ml Output Urine Total 1300 ml 865 ml Laboratory Tests Test 01/31/19 04:05 01/31/19 07:49 White Blood Count 20.6 K/UL (4.8-10.8) H Red Blood Count 4.27 M/UL (4.70-6.10) L Hemoglobin 13.2 G/DL (14.2-18.0) L Hematocrit 38.9 % (42.0-52.0) L Mean Corpuscular Volume 91 FL (80-99) Mean Corpuscular Hemoglobin 30.9 PG (27.0-31.0) Mean Corpuscular Hemoglobin Concent 33.9 G/DL (32.0-36.0) Red Cell Distribution Width 13.5 % (11.6-14.8) Platelet Count 313 K/UL (150-450) Mean Platelet Volume 4.9 FL (6.5-10.1) L Neutrophils (%) (Auto) % (45.0-75.0) Lymphocytes (%) (Auto) % (20.0-45.0) Monocytes (%) (Auto) % (1.0-10.0) Eosinophils (%) (Auto) % (0.0-3.0) Basophils (%) (Auto) % (0.0-2.0) Differential Total Cells Counted 100 Neutrophils % (Manual) 88 % (45-75) H Lymphocytes % (Manual) 9 % (20-45) L Monocytes % (Manual) 3 % (1-10) Eosinophils % (Manual) 0 % (0-3) Basophils % (Manual) 0 % (0-2) Band Neutrophils 0 % (0-8) Platelet Estimate Adequate Platelet Morphology Normal Red Blood Cell Morphology Normal Sodium Level 140 MMOL/L (136-145) Potassium Level 3.9 MMOL/L (3.5-5.1) Chloride Level 103 MMOL/L (98-107) Carbon Dioxide Level 34 MMOL/L (21-32) H Anion Gap 3 mmol/L (5-15) L Blood Urea Nitrogen 19 mg/dL (7-18) H Creatinine 1.4 MG/DL (0.55-1.30) H Estimat Glomerular Filtration Rate 50.4 mL/min (>60) Glucose Level 185 MG/DL (74-106) H Uric Acid 5.0 MG/DL (2.6-7.2) Calcium Level 7.9 MG/DL (8.5-10.1) L Phosphorus Level 3.0 MG/DL (2.5-4.9) Magnesium Level 2.5 MG/DL (1.8-2.4) H Total Bilirubin 0.3 MG/DL (0.2-1.0) Direct Bilirubin 0.1 MG/DL (0.0-0.3) Aspartate Amino Transf (AST/SGOT) 40 U/L (15-37) H Alanine Aminotransferase (ALT/SGPT) 55 U/L (12-78) Alkaline Phosphatase 130 U/L (46-116) H Total Protein 6.1 G/DL (6.4-8.2) L Albumin 1.9 G/DL (3.4-5.0) L Arterial Blood pH 7.497 (7.350-7.450) Arterial Blood Partial Pressure CO2 37.7 mmHg (35.0-45.0) Arterial Blood Partial Pressure O2 88.6 mmHg (75.0-100.0) Arterial Blood HCO3 28.5 mmol/L (22.0-26.0) H Arterial Blood Oxygen Saturation 96.7 % (95-100) Arterial Blood Base Excess 5.2 (-2-2) H Kvng Test Positive Microbiology Date/Time Source Procedure Growth Status 01/28/19 19:55 Sputum Gram Stain - Final Complete 01/28/19 19:55 Sputum Culture - Final Staphylococcus Aureus - Mrsa Complete Rolanda Shahid MD Jan 31, 2019 14:07
--- NOTE | 2019-01-31 18:00 | NUR ---
NURSE NOTES: Dopamine increased to 8mcg/kg/min. B/P: 73/49 HR: 62. Pt cleaned, repositioned, oral care completed. No distress noted at this time. Will continue to monitor.
--- NOTE | 2019-01-31 19:04 | NUR ---
HAND-OFF: Report given to EUGENIA Hayward.
--- NOTE | 2019-01-31 19:05 | NUR ---
NURSE NOTES: Endorsement received from EUGENIA Diaz. Opens eyes spontaneously. Does not track, does make eye contact. Withdraws to pain. Patient sinus rhythm on the monitor. Orally intubated, ET 7.5. 26 lipline. AC 20 VT 500, PEEP 5, 35% FiO2. With OGT. Rechecked placement per auscultation. Receiving Glucerna 1.2, 45ml/hr. No residual. Right upper arm PICC. On Dopamine 6mcg/kg/min. Costello catheter in place. On P200 mattress. Head of bed elevated. Bed locked, in low position. Bed alarm on.
[2019-01-31] MEDS: Dyna-Hex 2% Top Sol 2oz TOPIC SCH (20:23)
[2019-01-31] MEDS: Norepinephrine Bitartrate 8 MG in D5W 500ml 492 ML IV SCH (21:00)
--- NOTE | 2019-01-31 21:00 | NUR ---
NURSE NOTES: Patient awake, follows simple commands periodically.
[2019-01-31] MEDS ORDERED: Ertapenem 1 GM in NS 55 ML IVPB SCH (23:00)
--- NOTE | 2019-01-31 23:00 | NUR ---
NURSE NOTES: Secretions suctioned. Tolerating feeding
[2019-02-01] VITALS (59 sets, daily range): BP systolic 85–165; BP diastolic 48–105
[2019-02-01] MEDS: NovoLOG Insulin Flexpen SUBQ SCH ×5 (00:45→23:31)
--- NOTE | 2019-02-01 01:00 | NUR ---
NURSE NOTES: Patient asleep. Vital signs stable. Dopamine at 4mcg/kg/min
--- NOTE | 2019-02-01 03:00 | NUR ---
NURSE NOTES: Bed bath, oral care, change of linens done
[2019-02-01 05:09] LABS: BASOPHILS % (AUTO) 0.6 % (0.0-2.0); HEMATOCRIT 37.8 % (42.0-52.0); HEMOGLOBIN 13.2 G/DL (14.2-18.0); LYMPHOCYTES % (AUTO) 10.8 % (20.0-45.0); MEAN CORPUSCULAR VOLUME 88 FL (80-99); MONOCYTES % (AUTO) 7.8 % (1.0-10.0); NEUTROPHILS % (AUTO) 80.8 % (45.0-75.0); PLATELET COUNT 306 K/UL (150-450); RED CELL DISTRIBUTION WIDTH 12.4 % (11.6-14.8); WHITE BLOOD COUNT 16.7 K/UL (4.8-10.8)
[2019-02-01 05:41] LABS: ALANINE AMINOTRANSFERASE 96 U/L (12-78); ALBUMIN 1.8 G/DL (3.4-5.0); ALBUMIN/GLOBULIN RATIO 0.4 (1.0-2.7); ALKALINE PHOSPHATASE 135 U/L (46-116); ANION GAP 6 mmol/L (5-15); ASPARTATE AMINO TRANSFERASE 89 U/L (15-37); BILIRUBIN,TOTAL 0.3 MG/DL (0.2-1.0); BLOOD UREA NITROGEN 23 mg/dL (7-18); CALCIUM 7.6 MG/DL (8.5-10.1); CARBON DIOXIDE 33 MMOL/L (21-32); CHLORIDE 104 MMOL/L (98-107); CREATININE 1.3 MG/DL (0.55-1.30); PHOSPHORUS 2.8 MG/DL (2.5-4.9); POTASSIUM 3.5 MMOL/L (3.5-5.1); SODIUM 143 MMOL/L (136-145)
[2019-02-01] MEDS: Miralax 17gm pkt ORAL PRN (05:47)
[2019-02-01] MEDS: Hydrocortisone 100mg Inj IV SCH ×3 (05:47→22:31)
--- NOTE | 2019-02-01 06:00 | NUR ---
NURSE NOTES: Blood sugar checked and covered per sliding scale. PRN Miralax given
--- NOTE | 2019-02-01 07:00 | NUR ---
HAND-OFF: Report given to Ling Bolden RN.
--- NOTE | 2019-02-01 07:01 | NUR ---
NURSE NOTES: Received patient from EUGENIA Hayward. Patient opens eyes and follows some commands and makes eye contact. Patient HR low at 55 at this time. Patient on dopamine drip at 4mcg/kg/min at this time. Will continue to monitor HR and titrate dopamine per protocol. All other vital sign stable. Patient orally intubated with ET tube 7.5cm with 26cm at the lip line. Ventilator setting AC 20, tidal volume 500, FiO2 30%, and PEEP 5. Patient has oral gastric tube that is patient, asymptomatic, verified with auscultation and aspiration, and running Glucerna 1.2 at 45mL/hr at this time. Patient has not had a BM since 01/27 despite multiple administrations of laxatives. Will follow with primary MD. Patient has Costello for urine retention that is patent, asymptomatic, and draining straw yellow urine. Patient on low air loss mattress with left heel unstageable pressure ulcer and right heel DTI. All dressing dry and intact. Patient has right upper arm PICC line that is patent, asymptomatic, and running dopamine at 4mcg/kg/min at this time. Patient bed in low position with bed alarm on and call light in reach at this time. Patient repositioned and oral care performed at this time.
--- NOTE | 2019-02-01 07:30 | NUR ---
NURSE NOTES: Patient HR in the 40's at this time. Dopamine increased to 6mcg/kg/min at 0715 and increased to 8mcg/kg/min at 0730. Will continue to monitor and titrate per protocol.
--- NOTE | 2019-02-01 08:07 | NUR ---
NURSE NOTES: HR 92 and BP 145/87 at this time. Dopamine decreased to 6mcg/kg/min at this time. Will continue to monitor and titrate per protocol.
[2019-02-01] MEDS: Pantoprazole Inj IVP SCH (09:17)
[2019-02-01] MEDS: Azithromycin 250mg tab ORAL SCH (09:18)
[2019-02-01] MEDS: Midodrine 10mg tab NG SCH ×3 (09:18→18:00)
[2019-02-01] MEDS: Ascorbic Acid 500mg tab ORAL SCH ×2 (09:18→18:00)
[2019-02-01] MEDS: Heparin 5000 units/ml inj SUBQ SCH ×2 (09:19→20:55)
--- NOTE | 2019-02-01 09:48 | General Progress Note ---
Assessment/Plan Problem List: (1) Renal failure (ARF), acute on chronic ICD Codes: N17.9 - Acute kidney failure, unspecified; N18.9 - Chronic kidney disease, unspecified SNOMED: 913183081 (2) Sepsis ICD Codes: A41.9 - Sepsis, unspecified organism SNOMED: 95285713 Qualifiers: Qualified Codes: A41.9 - Sepsis, unspecified organism (3) Malignant neoplasm of right kidney ICD Codes: C64.1 - Malignant neoplasm of right kidney, except renal pelvis SNOMED: 669629470 (4) Acute respiratory failure ICD Codes: J96.00 - Acute respiratory failure, unspecified whether with hypoxia or hypercapnia SNOMED: 99950650 (5) PVD (peripheral vascular disease) ICD Codes: I73.9 - Peripheral vascular disease, unspecified SNOMED: 882787959 Status: unchanged Assessment/Plan: vent abx wound care cbc bmp am ltach eval Subjective Constitutional: Reports: weakness Allergies: Coded Allergies: No Known Allergies (Unverified , 01/24/19) All Systems: reviewed and negative except above Subjective intubated in icu Objective Last 24 Hour Vital Signs Date Time Temp Pulse Resp B/P (MAP) Pulse Ox O2 Delivery O2 Flow Rate FiO2 02/01/19 09:10 55 20 35 02/01/19 08:15 87 21 145/87 (106) 98 02/01/19 08:00 Mechanical Ventilator 02/01/19 08:00 35 02/01/19 08:00 145/87 02/01/19 08:00 98.5 87 21 145/87 (106) 98 02/01/19 07:45 67 20 152/85 (107) 100 02/01/19 07:30 114/58 02/01/19 07:30 44 20 114/58 (76) 99 02/01/19 07:15 114/58 02/01/19 07:15 57 19 122/57 (78) 100 02/01/19 07:11 56 20 35 02/01/19 07:00 122/57 02/01/19 07:00 56 19 109/56 (73) 99 02/01/19 06:30 52 11 116/56 (76) 99 02/01/19 06:00 119/83 02/01/19 06:00 56 20 115/57 (76) 98 02/01/19 05:45 57 18 103/60 (74) 98 02/01/19 05:30 57 18 109/58 (75) 98 02/01/19 05:20 57 21 35 02/01/19 05:00 108/57 02/01/19 05:00 60 20 101/52 (68) 98 02/01/19 04:30 59 20 98/58 (71) 98 02/01/19 04:00 35 02/01/19 04:00 98/57 02/01/19 04:00 98.0 57 20 105/59 (74) 98 02/01/19 04:00 Mechanical Ventilator 02/01/19 04:00 79 02/01/19 03:30 61 20 127/65 (85) 98 02/01/19 03:30 63 21 35 02/01/19 03:15 61 20 94/56 (69) 98 02/01/19 03:00 80/52 02/01/19 03:00 63 22 85/56 (66) 97 02/01/19 02:30 66 20 118/65 (82) 99 02/01/19 02:00 115/62 02/01/19 02:00 69 0 105/61 (76) 98 02/01/19 01:30 67 21 35 02/01/19 01:30 70 19 102/53 (69) 98 02/01/19 01:00 126/66 02/01/19 01:00 74 21 119/65 (83) 97 02/01/19 00:30 72 126/66 (86) 97 02/01/19 00:15 76 128/75 (92) 97 02/01/19 00:00 35 02/01/19 00:00 128/75 02/01/19 00:00 Mechanical Ventilator 02/01/19 00:00 98.7 82 21 113/66 (82) 97 02/01/19 00:00 84 01/31/19 23:45 87 20 106/73 (84) 97 01/31/19 23:30 85 19 125/70 (88) 97 01/31/19 23:15 80 21 143/75 (97) 97 01/31/19 23:00 143/75 01/31/19 23:00 88 20 154/84 (107) 97 01/31/19 22:49 83 22 35 11/17/19 22:45 74 23 143/81 (101) 97 01/31/19 22:40 71/49 01/31/19 22:30 95 18 71/49 (56) 95 01/31/19 22:15 103 28 143/88 (106) 97 01/31/19 22:00 143/88 01/31/19 22:00 112 21 137/83 (101) 96 01/31/19 21:45 112 19 150/92 (111) 97 01/31/19 21:30 105 23 155/88 (110) 97 01/31/19 21:15 101 22 151/84 (106) 98 01/31/19 21:09 72 20 35 01/31/19 21:00 151/84 01/31/19 21:00 154/85 01/31/19 21:00 89 27 154/85 (108) 98 01/31/19 20:45 79 21 152/79 (103) 99 01/31/19 20:30 72 24 136/68 (90) 98 01/31/19 20:15 75 16 128/64 (85) 98 01/31/19 20:00 Mechanical Ventilator 01/31/19 20:00 98.0 71 16 133/66 (88) 98 01/31/19 20:00 35 01/31/19 20:00 128/64 01/31/19 20:00 76 01/31/19 19:30 69 21 35 01/31/19 19:30 73 23 129/68 (88) 98 01/31/19 19:00 83 20 134/69 (90) 97 01/31/19 19:00 134/69 01/31/19 18:45 83 23 155/86 (109) 98 01/31/19 18:45 155/86 01/31/19 18:30 86 20 144/85 (104) 99 01/31/19 18:15 58 23 148/69 (95) 99 01/31/19 18:02 58 19 83/51 (62) 97 01/31/19 18:00 62 19 79/48 (58) 97 01/31/19 18:00 79/48 01/31/19 17:30 73 26 90/52 (65) 100 01/31/19 17:00 108 26 117/88 (98) 100 01/31/19 17:00 117/88 01/31/19 16:45 89 20 35 01/31/19 16:30 78 26 146/77 (100) 99 01/31/19 16:00 98.9 81 22 144/73 (96) 98 01/31/19 16:00 Mechanical Ventilator 01/31/19 16:00 144/73 01/31/19 16:00 35 01/31/19 15:30 73 01/31/19 15:30 70 29 147/72 (97) 99 01/31/19 15:00 85 41 143/74 (97) 98 01/31/19 15:00 145/73 01/31/19 14:30 75 22 35 01/31/19 14:15 86 22 142/61 (88) 99 01/31/19 14:00 142/61 01/31/19 14:00 78 22 137/70 (92) 99 01/31/19 13:30 107 20 131/77 (95) 98 01/31/19 13:00 118 22 144/91 (108) 100 01/31/19 13:00 146/87 01/31/19 12:54 108 20 35 01/31/19 12:30 90 19 140/77 (98) 98 01/31/19 12:00 Mechanical Ventilator 01/31/19 12:00 35 01/31/19 12:00 145/76 01/31/19 12:00 98.7 104 25 142/80 (100) 97 01/31/19 11:30 118 27 130/77 (94) 96 01/31/19 11:27 120 01/31/19 11:00 123 17 145/90 (108) 98 01/31/19 11:00 145/90 01/31/19 10:56 75 20 35 01/31/19 10:00 132/58 01/31/19 10:00 54 20 134/55 (81) 98 Intake and Output 01/31/19 02/01/19 19:00 07:00 Intake Total 1338.606 ml 694.666 ml Output Total 1570 ml 1300 ml Balance -231.394 ml -605.334 ml Free Water 100 ml IV Total 538.606 ml 199.666 ml Tube Feeding 540 ml 495 ml Other 160 ml Output Urine Total 1570 ml 1300 ml Laboratory Tests 02/01/19 04:20: White Blood Count 16.7H, Red Blood Count 4.30L, Hemoglobin 13.2L, Hematocrit 37.8L, Mean Corpuscular Volume 88, Mean Corpuscular Hemoglobin 30.8, Mean Corpuscular Hemoglobin Concent 35.0, Red Cell Distribution Width 12.4, Platelet Count 306, Mean Platelet Volume 5.0L, Neutrophils (%) (Auto) 80.8H, Lymphocytes (%) (Auto) 10.8L, Monocytes (%) (Auto) 7.8, Eosinophils (%) (Auto) 0.0, Basophils (%) (Auto) 0.6, Sodium Level 143, Potassium Level 3.5, Chloride Level 104, Carbon Dioxide Level 33H, Anion Gap 6, Blood Urea Nitrogen 23H, Creatinine 1.3, Estimat Glomerular Filtration Rate 54.9, Glucose Level 178H, Calcium Level 7.6L, Phosphorus Level 2.8, Magnesium Level 2.1, Total Bilirubin 0.3, Aspartate Amino Transf (AST/SGOT) 89H, Alanine Aminotransferase (ALT/SGPT) 96H, Alkaline Phosphatase 135H, C-Reactive Protein, Quantitative 1.4H, Pro-B-Type Natriuretic Peptide > 98347F, Total Protein 5.9L, Albumin 1.8L, Globulin 4.1, Albumin/ Globulin Ratio 0.4L Height (Feet): 5 Height (Inches): 6.00 Weight (Pounds): 155 General Appearance: lethargic EENT: normal ENT inspection Neck: normal alignment Cardiovascular: normal peripheral pulses, normal rate, regular rhythm Respiratory/Chest: chest wall non-tender, lungs clear, normal breath sounds Abdomen: normal bowel sounds, non tender, soft Extremities: normal inspection Edema: no edema noted Arm (L), no edema noted Arm (R), no edema noted Leg (L), no edema noted Leg (R), no edema noted Pedal (L), no edema noted Pedal (R), no edema noted Generalized Neurologic: motor weakness Skin: normal pigmentation, warm/dry Corey Short DO Feb 01, 2019 09:48
--- NOTE | 2019-02-01 09:59 | Infectious Diseases Prog Note ---
Assessment/Plan Assessment/Plan 68yo gentleman with PMH below presents with fever(100.1 is highest recorded in transfer packet) and worsened congestion from SNF. In the ED, pt was placed on oxygen then BiPAP but ultimately intubated. ID consulted for antimicrobial recommendation. Tmax 100.1 at half-way, SP Leukocytosis, uptrending, hydrocortisone from 01/25 Lactic acidosis, SP Shock, was on levophed, titrated off, but now on dopamine Likely MRSA PNA COPD? CHF? thick secretions per nurse flu swab negative 01/24 CXR: Extensive opacities within upper lobes demonstrated. In addition there is generalized interstitial densities throughout both lung craig. 01/25 CXR: Bilateral infiltrates appear fairly extensive but unchanged. TTE with EF 30-35% 01/25 sputum cx: MRSA 01/25 urine legionella ag: P 01/27 CXR: Extensive infiltrates bilaterally. Some degree of a superimposed interstitial edema has improved since the last exam. Endotracheal tube and NG tube remain in satisfactory in position. 01/28 CXR: Extensive bilateral infiltrates are again demonstrated without change. Tubes and lines are stable. 01/28 sputum cx: MRSA 01/30 CXR: 1. Overall similar patchy opacities in the lungs, most prominently in the right upper lung and right mid and lower lung. Probable small bilateral pleural effusions. 2. Endotracheal tube terminates in the region of the lower thoracic aorta above the cristina. Enteric tube courses past the diaphragm and out of the [id number], but the sidehole is seen near the GE junction. Possible UTI? new mcmahon placed in ED 01/25 UA 15-20 WBC 01/25 Ucx: NG Renal US: Nonobstructive stones in the left kidney demonstrated. Bilateral renal cysts. Limited evaluation due to body habitus. r/o bacteremia 01/25 BCx: ngtd No diarrhea HIV test negative MRSA screen positive RLE skin graft b/l LE heel pressure ulcers and sacral ulcer Tobacco abuse COPD HTN Kidney cancer OA CKD Anemia Schizophrenia PVD CHF Plan: Linezolid #2 Azithromycin #5/5 for atypicals 01/31 Ertapenem #8 01/31 DC Amikacin and vancomycin #6 SP cefepime #1 SP flagyl #1 SP vancomycin #1 repeat bcx aspiration precaution, elevate HOB, ETT care, oral care DVT PPX discussed with RN Thank you for this consult. [facility] will continue to follow the patient with you. Subjective Allergies: Coded Allergies: No Known Allergies (Unverified , 01/24/19) Subjective Afebrile. still on dopamine. WBC better Secretion better No bowel movement Objective Vital Signs Last 24 Hour Vital Signs Date Time Temp Pulse Resp B/P (MAP) Pulse Ox O2 Delivery O2 Flow Rate FiO2 02/01/19 09:10 55 20 35 02/01/19 08:15 87 21 145/87 (106) 98 02/01/19 08:00 Mechanical Ventilator 02/01/19 08:00 35 02/01/19 08:00 145/87 02/01/19 08:00 98.5 87 21 145/87 (106) 98 02/01/19 07:45 67 20 152/85 (107) 100 02/01/19 07:30 114/58 02/01/19 07:30 44 20 114/58 (76) 99 02/01/19 07:15 114/58 02/01/19 07:15 57 19 122/57 (78) 100 02/01/19 07:11 56 20 35 02/01/19 07:00 122/57 02/01/19 07:00 56 19 109/56 (73) 99 02/01/19 06:30 52 11 116/56 (76) 99 02/01/19 06:00 119/83 02/01/19 06:00 56 20 115/57 (76) 98 02/01/19 05:45 57 18 103/60 (74) 98 02/01/19 05:30 57 18 109/58 (75) 98 02/01/19 05:20 57 21 35 02/01/19 05:00 108/57 02/01/19 05:00 60 20 101/52 (68) 98 02/01/19 04:30 59 20 98/58 (71) 98 02/01/19 04:00 35 02/01/19 04:00 98/57 02/01/19 04:00 98.0 57 20 105/59 (74) 98 02/01/19 04:00 Mechanical Ventilator 02/01/19 04:00 79 02/01/19 03:30 61 20 127/65 (85) 98 02/01/19 03:30 63 21 35 02/01/19 03:15 61 20 94/56 (69) 98 02/01/19 03:00 80/52 02/01/19 03:00 63 22 85/56 (66) 97 02/01/19 02:30 66 20 118/65 (82) 99 02/01/19 02:00 115/62 02/01/19 02:00 69 0 105/61 (76) 98 02/01/19 01:30 67 21 35 02/01/19 01:30 70 19 102/53 (69) 98 02/01/19 01:00 126/66 02/01/19 01:00 74 21 119/65 (83) 97 02/01/19 00:30 72 126/66 (86) 97 02/01/19 00:15 76 128/75 (92) 97 02/01/19 00:00 35 02/01/19 00:00 128/75 02/01/19 00:00 Mechanical Ventilator 02/01/19 00:00 98.7 82 21 113/66 (82) 97 02/01/19 00:00 84 01/31/19 23:45 87 20 106/73 (84) 97 01/31/19 23:30 85 19 125/70 (88) 97 01/31/19 23:15 80 21 143/75 (97) 97 01/31/19 23:00 143/75 01/31/19 23:00 88 20 154/84 (107) 97 01/31/19 22:49 83 22 35 01/31/19 22:45 74 23 143/81 (101) 97 01/31/19 22:40 71/49 01/31/19 22:30 95 18 71/49 (56) 95 01/31/19 22:15 103 28 143/88 (106) 97 01/31/19 22:00 143/88 01/31/19 22:00 112 21 137/83 (101) 96 01/31/19 21:45 112 19 150/92 (111) 97 01/31/19 21:30 105 23 155/88 (110) 97 01/31/19 21:15 101 22 151/84 (106) 98 01/31/19 21:09 72 20 35 01/31/19 21:00 151/84 01/31/19 21:00 154/85 01/31/19 21:00 89 27 154/85 (108) 98 01/31/19 20:45 79 21 152/79 (103) 99 01/31/19 20:30 72 24 136/68 (90) 98 01/31/19 20:15 75 16 128/64 (85) 98 01/31/19 20:00 Mechanical Ventilator 01/31/19 20:00 98.0 71 16 133/66 (88) 98 01/31/19 20:00 35 01/31/19 20:00 128/64 01/31/19 20:00 76 01/31/19 19:30 69 21 35 01/31/19 19:30 73 23 129/68 (88) 98 01/31/19 19:00 83 20 134/69 (90) 97 01/31/19 19:00 134/69 01/31/19 18:45 83 23 155/86 (109) 98 01/31/19 18:45 155/86 01/31/19 18:30 86 20 144/85 (104) 99 01/31/19 18:15 58 23 148/69 (95) 99 01/31/19 18:02 58 19 83/51 (62) 97 01/31/19 18:00 62 19 79/48 (58) 97 01/31/19 18:00 79/48 01/31/19 17:30 73 26 90/52 (65) 100 01/31/19 17:00 108 26 117/88 (98) 100 01/31/19 17:00 117/88 01/31/19 16:45 89 20 35 01/31/19 16:30 78 26 146/77 (100) 99 01/31/19 16:00 98.9 81 22 144/73 (96) 98 01/31/19 16:00 Mechanical Ventilator 01/31/19 16:00 144/73 01/31/19 16:00 35 01/31/19 15:30 73 01/31/19 15:30 70 29 147/72 (97) 99 01/31/19 15:00 85 41 143/74 (97) 98 01/31/19 15:00 145/73 01/31/19 14:30 75 22 35 01/31/19 14:15 86 22 142/61 (88) 99 01/31/19 14:00 142/61 01/31/19 14:00 78 22 137/70 (92) 99 01/31/19 13:30 107 20 131/77 (95) 98 01/31/19 13:00 118 22 144/91 (108) 100 01/31/19 13:00 146/87 01/31/19 12:54 108 20 35 01/31/19 12:30 90 19 140/77 (98) 98 01/31/19 12:00 Mechanical Ventilator 01/31/19 12:00 35 01/31/19 12:00 145/76 01/31/19 12:00 98.7 104 25 142/80 (100) 97 01/31/19 11:30 118 27 130/77 (94) 96 01/31/19 11:27 120 01/31/19 11:00 123 17 145/90 (108) 98 01/31/19 11:00 145/90 01/31/19 10:56 75 20 35 01/31/19 10:00 132/58 01/31/19 10:00 54 20 134/55 (81) 98 Height (Feet): 5 Height (Inches): 6.00 Weight (Pounds): 155 Objective Gen: NAD HEENT: anicteric sclera. ETT CV: RRR. Resp: coarse. equal chest rise. Abd: soft. normoactive Bs+ Neuro: sedated Skin: RLE skin graft Laboratory Tests Test 02/01/19 04:20 White Blood Count 16.7 K/UL (4.8-10.8) H Red Blood Count 4.30 M/UL (4.70-6.10) L Hemoglobin 13.2 G/DL (14.2-18.0) L Hematocrit 37.8 % (42.0-52.0) L Mean Corpuscular Volume 88 FL (80-99) Mean Corpuscular Hemoglobin 30.8 PG (27.0-31.0) Mean Corpuscular Hemoglobin Concent 35.0 G/DL (32.0-36.0) Red Cell Distribution Width 12.4 % (11.6-14.8) Platelet Count 306 K/UL (150-450) Mean Platelet Volume 5.0 FL (6.5-10.1) L Neutrophils (%) (Auto) 80.8 % (45.0-75.0) H Lymphocytes (%) (Auto) 10.8 % (20.0-45.0) L Monocytes (%) (Auto) 7.8 % (1.0-10.0) Eosinophils (%) (Auto) 0.0 % (0.0-3.0) Basophils (%) (Auto) 0.6 % (0.0-2.0) Sodium Level 143 MMOL/L (136-145) Potassium Level 3.5 MMOL/L (3.5-5.1) Chloride Level 104 MMOL/L (98-107) Carbon Dioxide Level 33 MMOL/L (21-32) H Anion Gap 6 mmol/L (5-15) Blood Urea Nitrogen 23 mg/dL (7-18) H Creatinine 1.3 MG/DL (0.55-1.30) Estimat Glomerular Filtration Rate 54.9 mL/min (>60) Glucose Level 178 MG/DL (74-106) H Calcium Level 7.6 MG/DL (8.5-10.1) L Phosphorus Level 2.8 MG/DL (2.5-4.9) Magnesium Level 2.1 MG/DL (1.8-2.4) Total Bilirubin 0.3 MG/DL (0.2-1.0) Aspartate Amino Transf (AST/SGOT) 89 U/L (15-37) H Alanine Aminotransferase (ALT/SGPT) 96 U/L (12-78) H Alkaline Phosphatase 135 U/L (46-116) H C-Reactive Protein, Quantitative 1.4 mg/dL (0.00-0.90) H Pro-B-Type Natriuretic Peptide > 76030 pg/mL (0-125) H Total Protein 5.9 G/DL (6.4-8.2) L Albumin 1.8 G/DL (3.4-5.0) L Globulin 4.1 g/dL Albumin/Globulin Ratio 0.4 (1.0-2.7) L Current Medications Medications (Trade) Dose Ordered Sig/Ricardo Route PRN Reason Start Time Stop Time Status Last Admin Dose Admin Acetaminophen (Tylenol) 650 mg Q4H PRN ORAL fever 01/24/19 20:00 02/23/19 19:59 Albuterol/ Ipratropium (Albuterol/ Ipratropium) 3 ml Q4HRT PRN HHN sob 01/30/19 08:00 02/04/19 07:59 Ascorbic Acid (Vitamin C) 250 mg TWICE A DAY ORAL 01/27/19 18:00 02/26/19 17:59 02/01/19 09:18 Azithromycin (Zithromax) 250 mg DAILY ORAL 01/29/19 09:00 02/05/19 08:59 02/01/19 09:18 Chlorhexidine Gluconate (Roseanna-Hex 2%) 1 applic DAILY@2000 TOPIC 01/25/19 20:00 02/24/19 19:59 01/31/19 20:23 Dextrose (Dextrose 50%) 25 ml Q30M PRN IV Hypoglycemia 01/25/19 19:00 02/24/19 18:59 Dextrose (Dextrose 50%) 50 ml Q30M PRN IV Hypoglycemia 01/25/19 19:00 02/24/19 18:59 Dopamine HCl/ Dextrose 250 ml @ 0 mls/hr Q24H IV 01/28/19 10:45 02/27/19 10:44 01/31/19 22:40 Ertapenem 1 gm/ Sodium Chloride 55 ml @ 110 mls/hr Q24H IVPB 01/31/19 23:00 02/05/19 22:59 01/31/19 22:42 Heparin Sodium (Porcine) (Heparin 5000 units/ml) 5,000 units EVERY 12 HOURS SUBQ 01/24/19 21:00 02/23/19 20:59 02/01/19 09:19 Hydrocortisone (Solu-CORTEF) 100 mg EVERY 8 HOURS IV 01/25/19 11:00 02/24/19 10:59 02/01/19 05:47 Insulin Aspart (NovoLOG) EVERY 6 HOURS SUBQ 01/26/19 00:00 02/25/19 00:00 02/01/19 05:47 Linezolid 300 ml @ 300 mls/hr Q12HR IVPB 01/31/19 09:00 02/07/19 08:59 02/01/19 09:17 Lorazepam (Ativan 2mg/ml 1ml) 2 mg Q2H PRN IV For Anxiety 01/30/19 08:00 02/06/19 07:59 Midodrine (Pro-Amatine) 10 mg THREE TIMES A DAY NG 01/30/19 13:00 03/01/19 12:59 02/01/19 09:18 Morphine Sulfate (Morphine Sulfate) 4 mg Q4H PRN IVP Severe Pain (Pain Scale 7-10) 01/30/19 08:00 02/06/19 07:59 01/30/19 08:39 Norepinephrine Bitartrate 8 mg/ Dextrose 500 ml @ 0 mls/hr Q24H IV 01/24/19 21:00 02/23/19 20:14 01/26/19 11:00 Pantoprazole (Protonix) 40 mg DAILY IVP 01/25/19 09:00 02/24/19 08:59 02/01/19 09:17 Polyethylene Glycol (Miralax) 17 gm DAILYPRN PRN ORAL Constipation 01/24/19 20:00 02/23/19 19:59 02/01/19 05:47 Potassium Chloride (K-Dur) 40 meq TWICE A DAY NG 01/27/19 11:45 02/26/19 11:44 02/01/19 09:18 Pili Lenz MD Feb 01, 2019 09:59
--- NOTE | 2019-02-01 10:00 | NUR ---
NURSE NOTES: Patient cleaned and repositioned at this time. Patient had a large, soft bowel movement at this time. Patient HR 95 and blood pressure 158/91. Dopamine drip running at 6mcg/kg/min at this time. Will continue to monitor and titrate per protocol. Patient showing no sign of acute distress. Spoke with Dr Lenz, Dr Mcdaniel, Dr Anthony, and Dr Short regarding patient's current condition this morning when they rounded on the patient. Dr Anthony ordered for patient to begin weaning trials. Will await order to be placed and follow up with respiratory therapist when order is in. Will continue to monitor.
--- NOTE | 2019-02-01 10:18 | Pulmonolgy Critical Care Note ---
Critical Care - Asmt/Plan Problems: (1) Acute respiratory failure (2) Septic shock (3) Systolic heart failure (4) Chronic kidney disease (5) Malignant neoplasm of right kidney (6) COPD (chronic obstructive pulmonary disease) (7) Schizophrenia Respiratory: monitor respiratory rate, adjust FIO2, CXR Cardiac: continue to monitor HR/BP Renal: F/U I&O, keep IV fluid Infectious Disease: check cultures Gastrointestinal: continue feedings/current rate, hold feedings Endocrine: monitor blood sugar Hematologic: transfuse if hgb<8.5 Neurologic: PRN Ativan, keep patient comfortable Affect: PRN ativan Prophylaxis: Heparin Disposition: keep in ICU Notes Reviewed: 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, renal Discussed with: nurses, consultants, 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 - Objective Last 24 Hour Vital Signs Date Time Temp Pulse Resp B/P (MAP) Pulse Ox O2 Delivery O2 Flow Rate FiO2 02/01/19 09:10 55 20 35 02/01/19 08:15 87 21 145/87 (106) 98 02/01/19 08:00 Mechanical Ventilator 02/01/19 08:00 35 02/01/19 08:00 145/87 02/01/19 08:00 98.5 87 21 145/87 (106) 98 02/01/19 07:45 67 20 152/85 (107) 100 02/01/19 07:30 114/58 02/01/19 07:30 44 20 114/58 (76) 99 02/01/19 07:15 114/58 02/01/19 07:15 57 19 122/57 (78) 100 02/01/19 07:11 56 20 35 02/01/19 07:00 122/57 02/01/19 07:00 56 19 109/56 (73) 99 02/01/19 06:30 52 11 116/56 (76) 99 02/01/19 06:00 119/83 02/01/19 06:00 56 20 115/57 (76) 98 02/01/19 05:45 57 18 103/60 (74) 98 02/01/19 05:30 57 18 109/58 (75) 98 02/01/19 05:20 57 21 35 02/01/19 05:00 108/57 02/01/19 05:00 60 20 101/52 (68) 98 11/18/19 04:30 59 20 98/58 (71) 98 02/01/19 04:00 35 02/01/19 04:00 98/57 02/01/19 04:00 98.0 57 20 105/59 (74) 98 02/01/19 04:00 Mechanical Ventilator 02/01/19 04:00 79 02/01/19 03:30 61 20 127/65 (85) 98 02/01/19 03:30 63 21 35 02/01/19 03:15 61 20 94/56 (69) 98 02/01/19 03:00 80/52 02/01/19 03:00 63 22 85/56 (66) 97 02/01/19 02:30 66 20 118/65 (82) 99 02/01/19 02:00 115/62 02/01/19 02:00 69 0 105/61 (76) 98 02/01/19 01:30 67 21 35 02/01/19 01:30 70 19 102/53 (69) 98 02/01/19 01:00 126/66 02/01/19 01:00 74 21 119/65 (83) 97 02/01/19 00:30 72 126/66 (86) 97 02/01/19 00:15 76 128/75 (92) 97 02/01/19 00:00 35 02/01/19 00:00 128/75 02/01/19 00:00 Mechanical Ventilator 02/01/19 00:00 98.7 82 21 113/66 (82) 97 02/01/19 00:00 84 01/31/19 23:45 87 20 106/73 (84) 97 01/31/19 23:30 85 19 125/70 (88) 97 01/31/19 23:15 80 21 143/75 (97) 97 01/31/19 23:00 143/75 01/31/19 23:00 88 20 154/84 (107) 97 01/31/19 22:49 83 22 35 01/31/19 22:45 74 23 143/81 (101) 97 01/31/19 22:40 71/49 01/31/19 22:30 95 18 71/49 (56) 95 01/31/19 22:15 103 28 143/88 (106) 97 01/31/19 22:00 143/88 01/31/19 22:00 112 21 137/83 (101) 96 01/31/19 21:45 112 19 150/92 (111) 97 01/31/19 21:30 105 23 155/88 (110) 97 01/31/19 21:15 101 22 151/84 (106) 98 01/31/19 21:09 72 20 35 01/31/19 21:00 151/84 01/31/19 21:00 154/85 01/31/19 21:00 89 27 154/85 (108) 98 01/31/19 20:45 79 21 152/79 (103) 99 01/31/19 20:30 72 24 136/68 (90) 98 01/31/19 20:15 75 16 128/64 (85) 98 01/31/19 20:00 Mechanical Ventilator 01/31/19 20:00 98.0 71 16 133/66 (88) 98 01/31/19 20:00 35 01/31/19 20:00 128/64 01/31/19 20:00 76 01/31/19 19:30 69 21 35 01/31/19 19:30 73 23 129/68 (88) 98 01/31/19 19:00 83 20 134/69 (90) 97 01/31/19 19:00 134/69 01/31/19 18:45 83 23 155/86 (109) 98 01/31/19 18:45 155/86 01/31/19 18:30 86 20 144/85 (104) 99 01/31/19 18:15 58 23 148/69 (95) 99 01/31/19 18:02 58 19 83/51 (62) 97 01/31/19 18:00 62 19 79/48 (58) 97 01/31/19 18:00 79/48 01/31/19 17:30 73 26 90/52 (65) 100 01/31/19 17:00 108 26 117/88 (98) 100 01/31/19 17:00 117/88 01/31/19 16:45 89 20 35 01/31/19 16:30 78 26 146/77 (100) 99 01/31/19 16:00 98.9 81 22 144/73 (96) 98 01/31/19 16:00 Mechanical Ventilator 01/31/19 16:00 144/73 01/31/19 16:00 35 01/31/19 15:30 73 01/31/19 15:30 70 29 147/72 (97) 99 01/31/19 15:00 85 41 143/74 (97) 98 01/31/19 15:00 145/73 01/31/19 14:30 75 22 35 01/31/19 14:15 86 22 142/61 (88) 99 01/31/19 14:00 142/61 01/31/19 14:00 78 22 137/70 (92) 99 01/31/19 13:30 107 20 131/77 (95) 98 01/31/19 13:00 118 22 144/91 (108) 100 01/31/19 13:00 146/87 01/31/19 12:54 108 20 35 01/31/19 12:30 90 19 140/77 (98) 98 01/31/19 12:00 Mechanical Ventilator 01/31/19 12:00 35 01/31/19 12:00 145/76 01/31/19 12:00 98.7 104 25 142/80 (100) 97 01/31/19 11:30 118 27 130/77 (94) 96 01/31/19 11:27 120 01/31/19 11:00 123 17 145/90 (108) 98 01/31/19 11:00 145/90 01/31/19 10:56 75 20 35 Status: awake Condition: critical HEENT: atraumatic Neck: full ROM Lungs: chest wall tender Heart: HR/BP stable Abdomen: soft, active bowel sounds Extremities: no C/C/E Accucheck: 162 Critical Care - Subjective ROS Limited/Unobtainable: Yes Condition: critical EKG Rhythm: Sinus Rhythm FI02: 35 Vent Support Breath Rate: 20 Vent Support Mode: AC Vent Tidal Volume: 500 Sputum Amount: Scant PEEP: 5.0 PIP: 23 Tube Feeding Amount: 45 I&O: Intake and Output 01/31/19 02/01/19 19:00 07:00 Intake Total 1338.606 ml 739.666 ml Output Total 1570 ml 1400 ml Balance -231.394 ml -660.334 ml Free Water 100 ml IV Total 538.606 ml 199.666 ml Tube Feeding 540 ml 540 ml Other 160 ml Output Urine Total 1570 ml 1400 ml CXR: ET in good position, minimal pulmonary edema ET-Tube: 7.5 ET Position: 26 Labs: Laboratory Tests Test 02/01/19 04:20 White Blood Count 16.7 K/UL (4.8-10.8) H Red Blood Count 4.30 M/UL (4.70-6.10) L Hemoglobin 13.2 G/DL (14.2-18.0) L Hematocrit 37.8 % (42.0-52.0) L Mean Corpuscular Volume 88 FL (80-99) Mean Corpuscular Hemoglobin 30.8 PG (27.0-31.0) Mean Corpuscular Hemoglobin Concent 35.0 G/DL (32.0-36.0) Red Cell Distribution Width 12.4 % (11.6-14.8) Platelet Count 306 K/UL (150-450) Mean Platelet Volume 5.0 FL (6.5-10.1) L Neutrophils (%) (Auto) 80.8 % (45.0-75.0) H Lymphocytes (%) (Auto) 10.8 % (20.0-45.0) L Monocytes (%) (Auto) 7.8 % (1.0-10.0) Eosinophils (%) (Auto) 0.0 % (0.0-3.0) Basophils (%) (Auto) 0.6 % (0.0-2.0) Sodium Level 143 MMOL/L (136-145) Potassium Level 3.5 MMOL/L (3.5-5.1) Chloride Level 104 MMOL/L (98-107) Carbon Dioxide Level 33 MMOL/L (21-32) H Anion Gap 6 mmol/L (5-15) Blood Urea Nitrogen 23 mg/dL (7-18) H Creatinine 1.3 MG/DL (0.55-1.30) Estimat Glomerular Filtration Rate 54.9 mL/min (>60) Glucose Level 178 MG/DL (74-106) H Calcium Level 7.6 MG/DL (8.5-10.1) L Phosphorus Level 2.8 MG/DL (2.5-4.9) Magnesium Level 2.1 MG/DL (1.8-2.4) Total Bilirubin 0.3 MG/DL (0.2-1.0) Aspartate Amino Transf (AST/SGOT) 89 U/L (15-37) H Alanine Aminotransferase (ALT/SGPT) 96 U/L (12-78) H Alkaline Phosphatase 135 U/L (46-116) H C-Reactive Protein, Quantitative 1.4 mg/dL (0.00-0.90) H Pro-B-Type Natriuretic Peptide > 97271 pg/mL (0-125) H Total Protein 5.9 G/DL (6.4-8.2) L Albumin 1.8 G/DL (3.4-5.0) L Globulin 4.1 g/dL Albumin/Globulin Ratio 0.4 (1.0-2.7) L Ron Anthony MD Feb 01, 2019 10:18
--- NOTE | 2019-02-01 10:32 | NUR ---
RADIOLOGY DEPT., CHEST X-RAY DONE.-P.DYE
--- NOTE | 2019-02-01 10:33 | Diagnostic Imaging Report ---
Indication: Dyspnea Technique: One view of the chest Comparison: 01/31/2019 Findings: Stable positions of endotracheal tube, nasogastric tube, right arm PICC. Mostly interstitial opacities are again demonstrated bilaterally, unchanged. There is probably trace pleural fluid bilaterally Impression: Unchanged, over one day, findings as above.
--- NOTE | 2019-02-01 10:35 | Nephrology Progress Note ---
Assessment/Plan Problem List: (1) Renal failure (ARF), acute on chronic (2) Acute respiratory failure (3) Septic shock (4) Cardiomyopathy (5) Bradyarrhythmia Assessment Renal failure- Likely acute on Chronic- Cr lower Acute respiratory failure- intubated on Vent Septic Shock- On pressors COPD PVD Schizophrenia Plan stop IV fluid renal dose dopamin for low HR K supplement down on hydration One dose IV Lasix mag and Phos and K supplement as needed 2D Echo Low Ej Fx - Global Hypokinesis Avoid nephrotoxics afterload reduction monitor renal parameters urine studies ADIRAN IMPRESSION: Nonobstructive stones in the left kidney demonstrated. Bilateral renal cysts. Subjective ROS Limited/Unobtainable: Yes Objective Objective Last 24 Hour Vital Signs Date Time Temp Pulse Resp B/P (MAP) Pulse Ox O2 Delivery O2 Flow Rate FiO2 02/01/19 10:00 51 21 141/72 (95) 98 02/01/19 09:30 62 17 116/65 (82) 98 02/01/19 09:15 71 16 126/62 (83) 98 02/01/19 09:10 55 20 35 02/01/19 09:00 69 14 121/59 (79) 98 02/01/19 08:45 57 20 132/59 (83) 98 02/01/19 08:30 69 19 128/63 (84) 98 02/01/19 08:15 87 21 145/87 (106) 98 02/01/19 08:00 Mechanical Ventilator 02/01/19 08:00 35 02/01/19 08:00 145/87 02/01/19 08:00 98.5 87 21 145/87 (106) 98 02/01/19 07:45 67 20 152/85 (107) 100 02/01/19 07:30 114/58 02/01/19 07:30 44 20 114/58 (76) 99 02/01/19 07:15 114/58 02/01/19 07:15 57 19 122/57 (78) 100 02/01/19 07:11 56 20 35 02/01/19 07:00 122/57 02/01/19 07:00 56 19 109/56 (73) 99 02/01/19 06:30 52 11 116/56 (76) 99 02/01/19 06:00 119/83 02/01/19 06:00 56 20 115/57 (76) 98 02/01/19 05:45 57 18 103/60 (74) 98 02/01/19 05:30 57 18 109/58 (75) 98 02/01/19 05:20 57 21 35 02/01/19 05:00 108/57 02/01/19 05:00 60 20 101/52 (68) 98 02/01/19 04:30 59 20 98/58 (71) 98 02/01/19 04:00 35 02/01/19 04:00 98/57 02/01/19 04:00 98.0 57 20 105/59 (74) 98 02/01/19 04:00 Mechanical Ventilator 02/01/19 04:00 79 02/01/19 03:30 61 20 127/65 (85) 98 02/01/19 03:30 63 21 35 02/01/19 03:15 61 20 94/56 (69) 98 02/01/19 03:00 80/52 02/01/19 03:00 63 22 85/56 (66) 97 02/01/19 02:30 66 20 118/65 (82) 99 02/01/19 02:00 115/62 02/01/19 02:00 69 0 105/61 (76) 98 02/01/19 01:30 67 21 35 02/01/19 01:30 70 19 102/53 (69) 98 02/01/19 01:00 126/66 02/01/19 01:00 74 21 119/65 (83) 97 02/01/19 00:30 72 126/66 (86) 97 02/01/19 00:15 76 128/75 (92) 97 02/01/19 00:00 35 02/01/19 00:00 128/75 02/01/19 00:00 Mechanical Ventilator 02/01/19 00:00 98.7 82 21 113/66 (82) 97 02/01/19 00:00 84 01/31/19 23:45 87 20 106/73 (84) 97 01/31/19 23:30 85 19 125/70 (88) 97 01/31/19 23:15 80 21 143/75 (97) 97 01/31/19 23:00 143/75 01/31/19 23:00 88 20 154/84 (107) 97 01/31/19 22:49 83 22 35 01/31/19 22:45 74 23 143/81 (101) 97 01/31/19 22:40 71/49 01/31/19 22:30 95 18 71/49 (56) 95 01/31/19 22:15 103 28 143/88 (106) 97 01/31/19 22:00 143/88 01/31/19 22:00 112 21 137/83 (101) 96 01/31/19 21:45 112 19 150/92 (111) 97 01/31/19 21:30 105 23 155/88 (110) 97 01/31/19 21:15 101 22 151/84 (106) 98 01/31/19 21:09 72 20 35 01/31/19 21:00 151/84 01/31/19 21:00 154/85 01/31/19 21:00 89 27 154/85 (108) 98 01/31/19 20:45 79 21 152/79 (103) 99 01/31/19 20:30 72 24 136/68 (90) 98 01/31/19 20:15 75 16 128/64 (85) 98 01/31/19 20:00 Mechanical Ventilator 01/31/19 20:00 98.0 71 16 133/66 (88) 98 01/31/19 20:00 35 01/31/19 20:00 128/64 01/31/19 20:00 76 01/31/19 19:30 69 21 35 01/31/19 19:30 73 23 129/68 (88) 98 01/31/19 19:00 83 20 134/69 (90) 97 01/31/19 19:00 134/69 01/31/19 18:45 83 23 155/86 (109) 98 01/31/19 18:45 155/86 01/31/19 18:30 86 20 144/85 (104) 99 01/31/19 18:15 58 23 148/69 (95) 99 01/31/19 18:02 58 19 83/51 (62) 97 01/31/19 18:00 62 19 79/48 (58) 97 01/31/19 18:00 79/48 01/31/19 17:30 73 26 90/52 (65) 100 01/31/19 17:00 108 26 117/88 (98) 100 01/31/19 17:00 117/88 01/31/19 16:45 89 20 35 01/31/19 16:30 78 26 146/77 (100) 99 01/31/19 16:00 98.9 81 22 144/73 (96) 98 01/31/19 16:00 Mechanical Ventilator 01/31/19 16:00 144/73 01/31/19 16:00 35 01/31/19 15:30 73 01/31/19 15:30 70 29 147/72 (97) 99 01/31/19 15:00 85 41 143/74 (97) 98 01/31/19 15:00 145/73 01/31/19 14:30 75 22 35 01/31/19 14:15 86 22 142/61 (88) 99 01/31/19 14:00 142/61 01/31/19 14:00 78 22 137/70 (92) 99 01/31/19 13:30 107 20 131/77 (95) 98 01/31/19 13:00 118 22 144/91 (108) 100 01/31/19 13:00 146/87 01/31/19 12:54 108 20 35 01/31/19 12:30 90 19 140/77 (98) 98 01/31/19 12:00 Mechanical Ventilator 01/31/19 12:00 35 01/31/19 12:00 145/76 01/31/19 12:00 98.7 104 25 142/80 (100) 97 01/31/19 11:30 118 27 130/77 (94) 96 01/31/19 11:27 120 01/31/19 11:00 123 17 145/90 (108) 98 01/31/19 11:00 145/90 01/31/19 10:56 75 20 35 Intake and Output 01/31/19 02/01/19 19:00 07:00 Intake Total 1338.606 ml 739.666 ml Output Total 1570 ml 1400 ml Balance -231.394 ml -660.334 ml Free Water 100 ml IV Total 538.606 ml 199.666 ml Tube Feeding 540 ml 540 ml Other 160 ml Output Urine Total 1570 ml 1400 ml Laboratory Tests 02/01/19 04:20: White Blood Count 16.7H, Red Blood Count 4.30L, Hemoglobin 13.2L, Hematocrit 37.8L, Mean Corpuscular Volume 88, Mean Corpuscular Hemoglobin 30.8, Mean Corpuscular Hemoglobin Concent 35.0, Red Cell Distribution Width 12.4, Platelet Count 306, Mean Platelet Volume 5.0L, Neutrophils (%) (Auto) 80.8H, Lymphocytes (%) (Auto) 10.8L, Monocytes (%) (Auto) 7.8, Eosinophils (%) (Auto) 0.0, Basophils (%) (Auto) 0.6, Sodium Level 143, Potassium Level 3.5, Chloride Level 104, Carbon Dioxide Level 33H, Anion Gap 6, Blood Urea Nitrogen 23H, Creatinine 1.3, Estimat Glomerular Filtration Rate 54.9, Glucose Level 178H, Calcium Level 7.6L, Phosphorus Level 2.8, Magnesium Level 2.1, Total Bilirubin 0.3, Aspartate Amino Transf (AST/SGOT) 89H, Alanine Aminotransferase (ALT/SGPT) 96H, Alkaline Phosphatase 135H, C-Reactive Protein, Quantitative 1.4H, Pro-B-Type Natriuretic Peptide > 22224H, Total Protein 5.9L, Albumin 1.8L, Globulin 4.1, Albumin/ Globulin Ratio 0.4L Height (Feet): 5 Height (Inches): 6.00 Weight (Pounds): 155 General Appearance: no apparent distress EENT: other - vented Cardiovascular: bradycardia Abdomen: distended Bienvenido Gonzalez MD Feb 01, 2019 10:35
--- NOTE | 2019-02-01 10:36 | Surgery Progress Note ---
Surgery Progress Note Subjective Additional Comments leukocytosis improving on dopa HR still very variable and sudden alanna somewhat responsive tolerating feeds on vent support Objective Last 24 Hour Vital Signs Date Time Temp Pulse Resp B/P (MAP) Pulse Ox O2 Delivery O2 Flow Rate FiO2 02/01/19 10:00 51 21 141/72 (95) 98 02/01/19 09:30 62 17 116/65 (82) 98 02/01/19 09:15 71 16 126/62 (83) 98 02/01/19 09:10 55 20 35 02/01/19 09:00 69 14 121/59 (79) 98 02/01/19 08:45 57 20 132/59 (83) 98 02/01/19 08:30 69 19 128/63 (84) 98 02/01/19 08:15 87 21 145/87 (106) 98 02/01/19 08:00 Mechanical Ventilator 02/01/19 08:00 35 02/01/19 08:00 145/87 02/01/19 08:00 98.5 87 21 145/87 (106) 98 02/01/19 07:45 67 20 152/85 (107) 100 02/01/19 07:30 114/58 02/01/19 07:30 44 20 114/58 (76) 99 02/01/19 07:15 114/58 02/01/19 07:15 57 19 122/57 (78) 100 02/01/19 07:11 56 20 35 02/01/19 07:00 122/57 02/01/19 07:00 56 19 109/56 (73) 99 02/01/19 06:30 52 11 116/56 (76) 99 02/01/19 06:00 119/83 02/01/19 06:00 56 20 115/57 (76) 98 02/01/19 05:45 57 18 103/60 (74) 98 02/01/19 05:30 57 18 109/58 (75) 98 02/01/19 05:20 57 21 35 02/01/19 05:00 108/57 02/01/19 05:00 60 20 101/52 (68) 98 02/01/19 04:30 59 20 98/58 (71) 98 02/01/19 04:00 35 02/01/19 04:00 98/57 02/01/19 04:00 98.0 57 20 105/59 (74) 98 02/01/19 04:00 Mechanical Ventilator 02/01/19 04:00 79 02/01/19 03:30 61 20 127/65 (85) 98 02/01/19 03:30 63 21 35 02/01/19 03:15 61 20 94/56 (69) 98 02/01/19 03:00 80/52 02/01/19 03:00 63 22 85/56 (66) 97 02/01/19 02:30 66 20 118/65 (82) 99 02/01/19 02:00 115/62 02/01/19 02:00 69 0 105/61 (76) 98 02/01/19 01:30 67 21 35 02/01/19 01:30 70 19 102/53 (69) 98 02/01/19 01:00 126/66 02/01/19 01:00 74 21 119/65 (83) 97 02/01/19 00:30 72 126/66 (86) 97 02/01/19 00:15 76 128/75 (92) 97 02/01/19 00:00 35 02/01/19 00:00 128/75 02/01/19 00:00 Mechanical Ventilator 02/01/19 00:00 98.7 82 21 113/66 (82) 97 02/01/19 00:00 84 01/31/19 23:45 87 20 106/73 (84) 97 01/31/19 23:30 85 19 125/70 (88) 97 01/31/19 23:15 80 21 143/75 (97) 97 01/31/19 23:00 143/75 01/31/19 23:00 88 20 154/84 (107) 97 01/31/19 22:49 83 22 35 01/31/19 22:45 74 23 143/81 (101) 97 01/31/19 22:40 71/49 01/31/19 22:30 95 18 71/49 (56) 95 01/31/19 22:15 103 28 143/88 (106) 97 01/31/19 22:00 143/88 01/31/19 22:00 112 21 137/83 (101) 96 01/31/19 21:45 112 19 150/92 (111) 97 01/31/19 21:30 105 23 155/88 (110) 97 01/31/19 21:15 101 22 151/84 (106) 98 01/31/19 21:09 72 20 35 01/31/19 21:00 151/84 01/31/19 21:00 154/85 01/31/19 21:00 89 27 154/85 (108) 98 01/31/19 20:45 79 21 152/79 (103) 99 01/31/19 20:30 72 24 136/68 (90) 98 01/31/19 20:15 75 16 128/64 (85) 98 01/31/19 20:00 Mechanical Ventilator 01/31/19 20:00 98.0 71 16 133/66 (88) 98 01/31/19 20:00 35 01/31/19 20:00 128/64 01/31/19 20:00 76 01/31/19 19:30 69 21 35 01/31/19 19:30 73 23 129/68 (88) 98 01/31/19 19:00 83 20 134/69 (90) 97 01/31/19 19:00 134/69 01/31/19 18:45 83 23 155/86 (109) 98 01/31/19 18:45 155/86 01/31/19 18:30 86 20 144/85 (104) 99 01/31/19 18:15 58 23 148/69 (95) 99 01/31/19 18:02 58 19 83/51 (62) 97 01/31/19 18:00 62 19 79/48 (58) 97 01/31/19 18:00 79/48 01/31/19 17:30 73 26 90/52 (65) 100 01/31/19 17:00 108 26 117/88 (98) 100 01/31/19 17:00 117/88 01/31/19 16:45 89 20 35 01/31/19 16:30 78 26 146/77 (100) 99 01/31/19 16:00 98.9 81 22 144/73 (96) 98 01/31/19 16:00 Mechanical Ventilator 01/31/19 16:00 144/73 01/31/19 16:00 35 01/31/19 15:30 73 01/31/19 15:30 70 29 147/72 (97) 99 01/31/19 15:00 85 41 143/74 (97) 98 01/31/19 15:00 145/73 01/31/19 14:30 75 22 35 01/31/19 14:15 86 22 142/61 (88) 99 01/31/19 14:00 142/61 01/31/19 14:00 78 22 137/70 (92) 99 01/31/19 13:30 107 20 131/77 (95) 98 01/31/19 13:00 118 22 144/91 (108) 100 01/31/19 13:00 146/87 01/31/19 12:54 108 20 35 01/31/19 12:30 90 19 140/77 (98) 98 01/31/19 12:00 Mechanical Ventilator 01/31/19 12:00 35 01/31/19 12:00 145/76 01/31/19 12:00 98.7 104 25 142/80 (100) 97 01/31/19 11:30 118 27 130/77 (94) 96 01/31/19 11:27 120 01/31/19 11:00 123 17 145/90 (108) 98 01/31/19 11:00 145/90 01/31/19 10:56 75 20 35 I&O Intake and Output 01/31/19 02/01/19 19:00 07:00 Intake Total 1338.606 ml 739.666 ml Output Total 1570 ml 1400 ml Balance -231.394 ml -660.334 ml Free Water 100 ml IV Total 538.606 ml 199.666 ml Tube Feeding 540 ml 540 ml Other 160 ml Output Urine Total 1570 ml 1400 ml Dressing: other Wound: other Drains: other Cardiovascular: RSR Respiratory: clear Abdomen: soft, non-tender, present bowel sounds Extremities: no cyanosis Laboratory Tests Test 02/01/19 04:20 White Blood Count 16.7 K/UL (4.8-10.8) H Red Blood Count 4.30 M/UL (4.70-6.10) L Hemoglobin 13.2 G/DL (14.2-18.0) L Hematocrit 37.8 % (42.0-52.0) L Mean Corpuscular Volume 88 FL (80-99) Mean Corpuscular Hemoglobin 30.8 PG (27.0-31.0) Mean Corpuscular Hemoglobin Concent 35.0 G/DL (32.0-36.0) Red Cell Distribution Width 12.4 % (11.6-14.8) Platelet Count 306 K/UL (150-450) Mean Platelet Volume 5.0 FL (6.5-10.1) L Neutrophils (%) (Auto) 80.8 % (45.0-75.0) H Lymphocytes (%) (Auto) 10.8 % (20.0-45.0) L Monocytes (%) (Auto) 7.8 % (1.0-10.0) Eosinophils (%) (Auto) 0.0 % (0.0-3.0) Basophils (%) (Auto) 0.6 % (0.0-2.0) Sodium Level 143 MMOL/L (136-145) Potassium Level 3.5 MMOL/L (3.5-5.1) Chloride Level 104 MMOL/L (98-107) Carbon Dioxide Level 33 MMOL/L (21-32) H Anion Gap 6 mmol/L (5-15) Blood Urea Nitrogen 23 mg/dL (7-18) H Creatinine 1.3 MG/DL (0.55-1.30) Estimat Glomerular Filtration Rate 54.9 mL/min (>60) Glucose Level 178 MG/DL (74-106) H Calcium Level 7.6 MG/DL (8.5-10.1) L Phosphorus Level 2.8 MG/DL (2.5-4.9) Magnesium Level 2.1 MG/DL (1.8-2.4) Total Bilirubin 0.3 MG/DL (0.2-1.0) Aspartate Amino Transf (AST/SGOT) 89 U/L (15-37) H Alanine Aminotransferase (ALT/SGPT) 96 U/L (12-78) H Alkaline Phosphatase 135 U/L (46-116) H C-Reactive Protein, Quantitative 1.4 mg/dL (0.00-0.90) H Pro-B-Type Natriuretic Peptide > 21423 pg/mL (0-125) H Total Protein 5.9 G/DL (6.4-8.2) L Albumin 1.8 G/DL (3.4-5.0) L Globulin 4.1 g/dL Albumin/Globulin Ratio 0.4 (1.0-2.7) L Plan Problems: (1) Sepsis Assessment & Plan: afebrile, HD improving HR sick sinus leukocytosis improving lactic acidosis resolved ill appearing in ICU on support -IV abx as per ID -trend labs -CXR noted -cont tube feeds -wean vent; sbt -will follow with recs thank you (2) Septic shock (3) Wound, open Assessment & Plan: Patient presented on admission with multiple pressure injuries being identified. Non-blanching erythema without induration noted to sacrum ,Right and Left buttocks. Scattered areas that are darker and maroon in color noted within base of wound. Scrotum is also erythematous. Unstageable pressure injury noted to Left heel. Base of wound is 100% necrotic but soft. Erythematous margins with surrounding non-blanching erythema.(L)3.2cm x (W)3cm. no drainage Right heel is boggy with non-blanching erythema.. Keloid scar noted distal R tibia. Partial thickness ulcer noted to dorsal R foot. Base of wound is moist and viable. Small amt serous exudate noted. Scattered small dry scabs noted to dorsal R foot. Tx.Plan: Swab Dorsal R foot and R heel with Betadine. Cover with Optifoam drsg. Change every 3 days and prn. Apply Moisture Barrier Paste to buttocks. Cover sacrum with Optifoam drsg. Change every 3 days and prn. Apply Cavilon Skin Barrier to L heel.Cover with Optifoam drsg. Change every 7 days and prn. APM/JELLY mattress. Reposition at least every 2hours or as tolerated. Off-load heels with pillow. Nutritional Optimization Will monitor while in critical condition DAILY ESTIMATED NEEDS: Needs based on Critical care, sepsis, wounds 69kg 22-30 kcals/kg 2451-8944 total kcals 1.25-2 g protein/kg 86-138 g total protein 25-30 mL/kg 4617-2050 total fluid mLs NUTRITION DIAGNOSIS: Increased kcal and pro needs r/t sepsis, wound healing, and underweight status as evidenced by pt w respiratory distress now intubated, critically elev WBC (*29.7), elev BG (200's), w/ multiple wounds (refer to eval), pt is @88% if [place] Body Weight. CURRENT TF: Glucerna 1.2 @30ml ENTERAL NUTRITION RECOMMENDATIONS: VITAL AF 1.2 @60ml/hr x24 hrs to provide 1440ml, 1728 kcal, 108g pro, 1168ml free H2O - WITH HEMODYNAMIC STABILITY, rec TF change to VITAL 1.2 to better meet est needs. Start @20ml/hr for 6 hrs. Advance as tolerated 10ml/hr q4-6 hrs to goal. - Flush per MD. HOB over 30 degrees If pt remains on pressor support, rec trophic feeds of Vital 1.2 @5-10ml/hr to maintain gut integrity. ------ ADDITIONAL RECOMMENDATIONS: 1) Per SNF: HT 71 inches, 152 lbs (69.1kg) 2) Wound care: Add DANIELA in 4oz water BID via OGT + VIT C 250mg BID (f/up w/ WC specialist) 3) Monitor lytes daily, replete as needed 4) Daily calibrated bed scale wts Mauricio Anne Feb 01, 2019 10:36
--- NOTE | 2019-02-01 12:00 | NUR ---
NURSE NOTES: Patient opens eyes and follows some commands and makes eye contact. Patient HR stable at 64 at this time with dopamine running at 4mcg/kg/min at this time. Will continue to monitor HR and titrate dopamine per protocol. Patient orally intubated with ET tube 7.5cm with 26cm at the lip line. Ventilator setting AC 20, tidal volume 500, FiO2 30%, and PEEP 5. Oral gastric tube remains patent, asymptomatic, reverified with auscultation and aspiration, and running Glucerna 1.2 at 45mL/hr at this time with no residual. Patient had a large bowel movement this morning. Costello remains patent, asymptomatic, and draining straw yellow urine. All wound dressing dry and intact. Right upper arm PICC line remains patent, asymptomatic, and running dopamine at 4mcg/kg/min at this time. Patient bed in low position with bed alarm on and call light in reach at this time. Patient repositioned and oral care performed at this time.
--- NOTE | 2019-02-01 13:24 | NUR ---
RESPIRATORY NOTE: Pt placed on CPAP +5, PS 8 35%. Pt tolerating well. No respiratory distress noted. SaO2 98%. Will continue to monitor. Ling BELLO aware.
--- NOTE | 2019-02-01 14:30 | NUR ---
NURSE NOTES: Patient HR 61 beats per minute and blood pressure 125/66 on dopamine 4mcg/kg/min. Will continue to monitor and titrate dopamine drip per protocol. Patient repositioned and bed bath done at this time. HOB 30 degrees. Patient on CPAP with pressure support 8 with 35% FiO2 at this time. Patient tolerating weaning without sign of respiratory distress. Will continue to monitor.Bed in low position with bed bed alarm on and call light in reach at this time.
--- NOTE | 2019-02-01 14:55 | NUR ---
RESPIRATORY NOTE: Pt extubated, per Dr. Anthony. Pt placed on cool aerosol 30% 6LPM. SaO2 96%. No signs of distress. Will continue to monitor. EUGENIA jane.
--- NOTE | 2019-02-01 15:31 | NUR ---
RD ASSESSMENT & RECOMMENDATIONS SEE CARE ACTIVITY FOR COMPLETE ASSESSMENT DAILY ESTIMATED NEEDS: Needs based on Critical care, sepsis, wounds 69kg 22-30 kcals/kg 2846-4832 total kcals 1.25-2 g protein/kg 86-138 g total protein 25-30 mL/kg 4831-4680 total fluid mLs NUTRITION DIAGNOSIS: Increased kcal and pro needs r/t sepsis, wound healing, and underweight status as evidenced by pt w respiratory distress now intubated, critically elev WBC (*29.7-> 16.7), elev BGs w/ POC (162-210), w/ multiple wounds (refer to eval), pt is @88% if [place] Body Weight. CURRENT TF: Glucerna 1.2 @ 45ml/hr x 24 hrs PO DIET RECOMMENDATIONS: GRAVEL WEIGHER eval post extubation -> CCHO MED, LOW NA ENTERAL NUTRITION RECOMMENDATIONS: Glucerna 1.5 @ 50ml/hr x 24 hrs to provide 1200ml, 1800kcal, 99g prot, 911ml free water - Rec TF change to Glucerna 1.5 for less free fluids (BNP >14233) - Start @ 30ml/hr for 6 hrs, advance as tolerated 10ml/hr q4-6 hrs to goal. - Flush per MD. HOB over 30 degrees ADDITIONAL RECOMMENDATIONS: 1) Per SNF: HT 71 inches, 152 lbs (69.1kg) 2) Wound care: Add DANIELA in 4oz water BID via OGT : Continue VIT C 250mg BID 3) Monitor lytes daily, replete as needed 4) Daily calibrated bed scale wts 5) Monitor BGs closely, need for long acting insulin -> elev BGs + on steroidal med
--- NOTE | 2019-02-01 15:37 | NUR ---
NURSE NOTES: Left telephone message for Dr Anthony. Reported ABG result and current status on weaning trial with CPAP pressure support 8, 30% FiO2. Awaiting call back.
--- NOTE | 2019-02-01 15:51 | NUR ---
RESPIRATORY NOTE: Pt placed back on AC R20 VT 500 FIO2 35% PEEP +5. ABG drawn. No new orders from Dr. Anthony. EUGENIA Dubon aware.
--- NOTE | 2019-02-01 16:00 | NUR ---
INDIRA NOTES: Patient opens eyes and follows some commands and makes eye contact. Patient HR stable at 70 at this time with dopamine running at 4mcg/kg/min at this time. Will continue to monitor HR and titrate dopamine per protocol. Patient orally intubated with ET tube 7.5cm with 26cm at the lip line. Ventilator setting AC 20, tidal volume 500, FiO2 30%, and PEEP 5. Oral gastric tube remains patent, asymptomatic, reverified with auscultation and aspiration, and running Glucerna 1.2 at 45mL/hr at this time with no residual. Patient had a large bowel movement this morning. Costello remains patent, asymptomatic, and draining straw yellow urine. All wound dressing dry and intact. Right upper arm PICC line remains patent, asymptomatic, and running dopamine at 4mcg/kg/min at this time. Patient bed in low position with bed alarm on and call light in reach at this time. Patient repositioned and oral care performed at this time.
--- NOTE | 2019-02-01 16:01 | NUR ---
NURSE NOTES: Received telephone order from Dr Anthony for extubation and cool aerosol mask post extubation. Asked if he wanted ABG post extubation. He reported that he does not want ABG post extubation. Orders read back, verified, and placed at this time. RT notified.
--- NOTE | 2019-02-01 16:40 | NUR ---
DISCHARGE PLANNING Discharge order noted Patient has been referred to [facility] Await Acceptance
--- NOTE | 2019-02-01 17:30 | NUR ---
NURSE NOTES: Patient extubated at 1655 and placed on cool aerosol mask at 40% FiO2. Patient tolerating mask at 99% SpO2. Attempted to placed new NGT as previous OGT removed with extubation. Insertion of NGT unsuccessful. senior resident care director also attempted new NGT insertion unsuccessfully. OGT placed. Will follow up with [facility]. placement confirmed with auscultation and aspiration.
--- NOTE | 2019-02-01 18:10 | Diagnostic Imaging Report ---
Indication: Post nasogastric tube placement Technique: Supine view of the upper abdomen Comparison: 01/24/2019 Findings: Nasogastric tube tip projects at the level of the gastric fundus body junction. However, the proximal port projects at the level of the gastroesophageal junction. The visualized lungs demonstrate interstitial disease diffusely. Impression: Slightly high position of nasogastric tube. Advancement recommended. Other findings as noted This agrees with the preliminary interpretation provided overnight by [facility] teleradiology service.
--- NOTE | 2019-02-01 18:30 | NUR ---
NURSE NOTES: Patient oxygen saturation dropped to 88% and he is coughing around the OGT tube. OGT removed at this time. Oxygen saturation now 98-99%. Dr Short notified. Received telephone order for GI consult for Dr Valderrama. Will follow up with Dr Valderrama for further orders. Patient will remain NPO at this time.
[2019-02-01] MEDS: DOPamine 400mg/250ml 250 ML IV SCH (19:02)
--- NOTE | 2019-02-01 19:15 | NUR ---
HAND-OFF: Report given to EUGENIA Henry. Patient vital signs stable. Blood pressure dropped to 84/44. DOpamine increased to 6mcg/kg/min at this time. Endorsed to follow up and endorsed to follow up with Dr Valderrama for NPO order.
--- NOTE | 2019-02-01 19:30 | NUR ---
NURSE NOTES: Received pt in no acute distress. Awake, alert but confused. Moves all extremities and quite restless and combative. Pt able to talk clearly. Swears. No respiratory difficulty noted. On 35% cool aerosol and saturating 97%.. chest sounds with scattered rhonchi. NSR on the monitor. No alanna arrythmic episode noted. BP stable. Afebrile. Bilateral soft wrist restraints maintained as pt tends to be impulsive and pulls O2 and lines out. PICC on JONATHAN intact, dressing clean and dry. Currently with Dopamine gtt infusing at 6mcg/kg/min. FC intact, draining large amt of clear light danelle urine. Will continue to monitor for alanna arrythmias and BP.
--- NOTE | 2019-02-01 20:00 | NUR ---
NURSE NOTES: Incontinent for large amt of soft semi liquid stool. Bathed and applied optifoam to buttock area.
[2019-02-01] MEDS: Dyna-Hex 2% Top Sol 2oz TOPIC SCH (20:52)
[2019-02-01] MEDS: Norepinephrine Bitartrate 8 MG in D5W 500ml 492 ML IV SCH (21:00)
--- NOTE | 2019-02-01 22:00 | NUR ---
NURSE NOTES: Awake but calm, passive. Remains restrained. BP elevated, HR stable; titrated Dopamine down to 3mcg/kg/min. Will continue to monitor
[2019-02-02] VITALS (46 sets, daily range): BP systolic 81–177; BP diastolic 39–85
--- NOTE | 2019-02-02 | NUR ---
NURSE NOTES: Sleeping, no distress. Afebrile. HR 57 BP stable. On Dopamine at 3mcg/kg/min. Calm, passive. Hand off to Leno Moreno RN
--- NOTE | 2019-02-02 | NUR ---
NURSE NOTES: Received pt and report from EUGENIA Henry. Pt's resting in bed in no acute distress, asleep with eyes closed. Bed locked and in low position. Call light within reach. Will continue to monitor.
--- NOTE | 2019-02-02 02:00 | NUR ---
NURSE NOTES: Pt's resting in bed, in no acute distress, asleep with eyes closed. O2 sat 97% with cool air aerosol 35% . VS stable. Will continue to monitor.
--- NOTE | 2019-02-02 04:00 | NUR ---
NURSE NOTES: Pt's resting in bed, in no acute distress. VS stable. Asleep with eyes closed. Will continue to monitor.
[2019-02-02 04:36] LABS: BASOPHILS % (AUTO) 0.5 % (0.0-2.0); EOSINOPHILS % (AUTO) 0.1 % (0.0-3.0); HEMATOCRIT 38.1 % (42.0-52.0); MEAN CORPUSCULAR VOLUME 90 FL (80-99); MONOCYTES % (AUTO) 5.1 % (1.0-10.0); NEUTROPHILS % (AUTO) 84.3 % (45.0-75.0); PLATELET COUNT 279 K/UL (150-450); RED BLOOD COUNT 4.23 M/UL (4.70-6.10); RED CELL DISTRIBUTION WIDTH 13.1 % (11.6-14.8); WHITE BLOOD COUNT 16.6 K/UL (4.8-10.8)
[2019-02-02 05:07] LABS: ALANINE AMINOTRANSFERASE 116 U/L (12-78); ALBUMIN 1.9 G/DL (3.4-5.0); ALBUMIN/GLOBULIN RATIO 0.5 (1.0-2.7); ALKALINE PHOSPHATASE 136 U/L (46-116); ANION GAP 4 mmol/L (5-15); ASPARTATE AMINO TRANSFERASE 70 U/L (15-37); BILIRUBIN,TOTAL 0.3 MG/DL (0.2-1.0); BLOOD UREA NITROGEN 24 mg/dL (7-18); CALCIUM 7.5 MG/DL (8.5-10.1); CARBON DIOXIDE 35 MMOL/L (21-32); CHLORIDE 103 MMOL/L (98-107); CREATININE 1.2 MG/DL (0.55-1.30); POTASSIUM 3.4 MMOL/L (3.5-5.1); SODIUM 142 MMOL/L (136-145)
[2019-02-02] MEDS: Hydrocortisone 100mg Inj IV SCH (05:54)
[2019-02-02] MEDS: NovoLOG Insulin Flexpen SUBQ SCH ×4 (05:55→23:42)
--- NOTE | 2019-02-02 06:00 | NUR ---
NURSE NOTES: Pt's resting in bed, in no acute distress, increased Dopamine to 4mcg/kig/min due to drop of BP. Will continue to monitor.
--- NOTE | 2019-02-02 07:11 | NUR ---
HAND-OFF: Report given to EUGENIA Cortes.
--- NOTE | 2019-02-02 08:15 | NUR ---
NURSE NOTES: Patient orally suctioned since saturations was 85-87% while on cool aerosol mask at 35%, after suctioning saturations increased to 95-97%, thick white sputum suctioned from mouth and throat.
--- NOTE | 2019-02-02 09:04 | NUR ---
RADIOLOGY DEPT., CHEST X-RAY DONE.-P.DYE
--- NOTE | 2019-02-02 09:05 | Cardiology Progress Note ---
Assessment/Plan Assessment/Plan 1. Septic syndrome. 2. Respiratory failure now extubated 3. Pneumonia. 4. Schizophrenia and dementia. 5. Urinary tract infection. 6. Renal failure. 7. Hypoalbuminemia/malnutrition. 8. Sinus tachycardia secondary to above resolved 9. Left ventricular systolic dysfunction. 10. sinus alanna cxr reviewed personally rernal fxn improved tele sinus / alanna off dopamine will consider acei in future if renal fxn improves and bp remain strable is now extubated heart rate in the 50s he seem ore awake still with some sbp less thatn 100 but mostly above avoid any neg chronotropic agents echo report not availabe will need to review with dept Subjective Cardiovascular: Denies: chest pain Respiratory: Denies: shortness of breath Gastrointestinal/Abdominal: Denies: abdominal pain Genitourinary: Reports: no symptoms Objective Last 24 Hour Vital Signs Date Time Temp Pulse Resp B/P (MAP) Pulse Ox O2 Delivery O2 Flow Rate FiO2 02/02/19 07:00 113/56 02/02/19 07:00 54 19 113/56 (75) 97 02/02/19 06:54 97 Cool Aerosol 8.0 30 02/02/19 06:30 58 16 119/51 (73) 97 02/02/19 06:00 57 7 94/45 (61) 91 02/02/19 06:00 82/40 02/02/19 05:46 65 19 100 Cool Aerosol 8.0 30 62 17 98 02/02/19 05:00 55 7 103/52 (69) 97 02/02/19 05:00 116/52 02/02/19 04:30 55 15 117/51 (73) 97 02/02/19 04:00 56 13 100/52 (68) 98 02/02/19 04:00 100/52 02/02/19 04:00 Venturi Mask 10.0 Venturi Mask 02/02/19 04:00 57 02/02/19 03:30 58 18 107/51 (69) 99 02/02/19 03:00 110/56 02/02/19 03:00 98.0 58 16 110/57 (74) 97 02/02/19 02:30 55 19 116/50 (72) 97 02/02/19 02:00 57 18 114/49 (70) 100 02/02/19 02:00 116/54 02/02/19 01:35 100 Cool Aerosol 8.0 30 02/02/19 01:00 55 13 106/47 (66) 99 02/02/19 01:00 106/47 02/02/19 00:00 58 13 114/57 (76) 99 02/02/19 00:00 54 02/02/19 00:00 Venturi Mask 10.0 Venturi Mask 02/02/19 00:00 114/57 02/01/19 23:30 97.7 66 17 146/68 (94) 100 02/01/19 23:00 141/64 02/01/19 23:00 64 14 141/64 (89) 99 02/01/19 22:30 89 16 137/75 (95) 98 02/01/19 22:00 164/90 02/01/19 22:00 85 16 164/90 (114) 99 02/01/19 21:30 72 16 161/76 (104) 99 02/01/19 21:00 59 18 147/57 (87) 99 02/01/19 21:00 147/57 02/01/19 21:00 164/90 02/01/19 20:30 77 17 142/55 (84) 97 02/01/19 20:00 98.5 79 16 158/61 (93) 99 02/01/19 20:00 159/61 02/01/19 20:00 Venturi Mask 10.0 Venturi Mask 02/01/19 20:00 67 02/01/19 19:30 67 15 158/48 (84) 99 02/01/19 19:05 84/44 02/01/19 19:02 97 Cool Aerosol 8.0 30 02/01/19 19:02 84/44 02/01/19 19:00 119/52 02/01/19 18:57 80 13 136/63 (87) 98 02/01/19 18:30 75 12 119/52 (74) 93 02/01/19 18:00 138/60 02/01/19 18:00 72 18 138/60 (86) 92 02/01/19 17:30 79 16 135/63 (87) 97 02/01/19 17:00 76 16 125/64 (84) 97 02/01/19 17:00 125/64 02/01/19 16:30 73 17 140/57 (84) 97 02/01/19 16:00 35 02/01/19 16:00 98.6 63 14 144/62 (89) 100 02/01/19 16:00 Mechanical Ventilator 02/01/19 16:00 144/62 02/01/19 16:00 58 02/01/19 15:30 58 14 144/76 (98) 100 02/01/19 15:01 58 16 35 02/01/19 15:00 83 16 141/66 (91) 100 02/01/19 15:00 141/66 02/01/19 14:55 Venturi Mask 6.0 30 02/01/19 14:30 92 13 104/69 (81) 97 02/01/19 14:00 71 14 146/64 (91) 97 02/01/19 14:00 146/64 02/01/19 13:30 65 13 129/59 (82) 99 02/01/19 13:24 63 12 35 02/01/19 13:24 98 02/01/19 13:00 62 8 112/54 (73) 94 02/01/19 13:00 112/54 02/01/19 12:30 55 20 131/60 (83) 96 02/01/19 12:00 Mechanical Ventilator 02/01/19 12:00 35 02/01/19 12:00 50 02/01/19 12:00 112/63 02/01/19 12:00 98.5 65 20 112/63 (79) 98 02/01/19 11:45 70 18 107/60 (76) 99 02/01/19 11:30 65 20 104/63 (77) 98 02/01/19 11:20 55 20 35 02/01/19 11:15 56 20 126/56 (79) 98 02/01/19 11:00 146/82 02/01/19 11:00 102 20 146/82 (103) 98 02/01/19 10:45 165/105 02/01/19 10:45 109 20 165/105 (125) 98 02/01/19 10:30 112 19 134/98 (110) 88 02/01/19 10:00 51 21 141/72 (95) 98 02/01/19 10:00 158/91 02/01/19 09:30 62 17 116/65 (82) 98 02/01/19 09:15 71 16 126/62 (83) 98 02/01/19 09:10 55 20 35 General Appearance: no apparent distress, alert, patient on isolation Cardiovascular: normal rate Respiratory/Chest: lungs clear Abdomen: normal bowel sounds, non tender, soft Extremities: no swelling Intake and Output 02/01/19 02/02/19 19:00 07:00 Intake Total 885.0235 ml 417.876 ml Output Total 1240 ml 1575 ml Balance -354.9765 ml -1157.124 ml Free Water 30 ml IV Total 450.0235 ml 417.876 ml Tube Feeding 405 ml 0 ml Output Urine Total 1240 ml 1575 ml # Bowel Movements 3 1 Laboratory Tests Test 02/01/19 15:21 02/02/19 02:45 Arterial Blood pH 7.526 (7.350-7.450) Arterial Blood Partial Pressure CO2 41.0 mmHg (35.0-45.0) Arterial Blood Partial Pressure O2 87.2 mmHg (75.0-100.0) Arterial Blood HCO3 33.2 mmol/L (22.0-26.0) H Arterial Blood Oxygen Saturation 96.7 % (95-100) Arterial Blood Base Excess 9.6 (-2-2) *H Kvng Test Positive White Blood Count 16.6 K/UL (4.8-10.8) H Red Blood Count 4.23 M/UL (4.70-6.10) L Hemoglobin 13.0 G/DL (14.2-18.0) L Hematocrit 38.1 % (42.0-52.0) L Mean Corpuscular Volume 90 FL (80-99) Mean Corpuscular Hemoglobin 30.6 PG (27.0-31.0) Mean Corpuscular Hemoglobin Concent 34.1 G/DL (32.0-36.0) Red Cell Distribution Width 13.1 % (11.6-14.8) Platelet Count 279 K/UL (150-450) Mean Platelet Volume 4.9 FL (6.5-10.1) L Neutrophils (%) (Auto) 84.3 % (45.0-75.0) H Lymphocytes (%) (Auto) 10.0 % (20.0-45.0) L Monocytes (%) (Auto) 5.1 % (1.0-10.0) Eosinophils (%) (Auto) 0.1 % (0.0-3.0) Basophils (%) (Auto) 0.5 % (0.0-2.0) Sodium Level 142 MMOL/L (136-145) Potassium Level 3.4 MMOL/L (3.5-5.1) L Chloride Level 103 MMOL/L (98-107) Carbon Dioxide Level 35 MMOL/L (21-32) H Anion Gap 4 mmol/L (5-15) L Blood Urea Nitrogen 24 mg/dL (7-18) H Creatinine 1.2 MG/DL (0.55-1.30) Estimat Glomerular Filtration Rate > 60 mL/min (>60) Glucose Level 169 MG/DL (74-106) H Calcium Level 7.5 MG/DL (8.5-10.1) L Total Bilirubin 0.3 MG/DL (0.2-1.0) Aspartate Amino Transf (AST/SGOT) 70 U/L (15-37) H Alanine Aminotransferase (ALT/SGPT) 116 U/L (12-78) H Alkaline Phosphatase 136 U/L (46-116) H Pro-B-Type Natriuretic Peptide 01516 pg/mL (0-125) H Total Protein 5.9 G/DL (6.4-8.2) L Albumin 1.9 G/DL (3.4-5.0) L Globulin 4.0 g/dL Albumin/Globulin Ratio 0.5 (1.0-2.7) L Microbiology Date/Time Source Procedure Growth Status 01/31/19 10:10 Blood Blood Culture - Preliminary NO GROWTH AFTER 24 HOURS Resulted 01/31/19 09:55 Blood Blood Culture - Preliminary NO GROWTH AFTER 24 HOURS Resulted Sammy Helm MD Feb 02, 2019 09:05
--- NOTE | 2019-02-02 09:35 | NUR ---
NURSE NOTES: Dr. Gonzalez ordered to have a magnesium and phosphorus labs drawn. green top taken to lab for analysis.
[2019-02-02 09:43] LABS: PHOSPHORUS 3.6 MG/DL (2.5-4.9)
[2019-02-02] MEDS: Pantoprazole Inj IVP SCH (10:01)
[2019-02-02] MEDS: Ascorbic Acid 500mg tab ORAL SCH ×2 (10:02→20:36)
[2019-02-02] MEDS: Midodrine 10mg tab NG SCH ×3 (10:02→20:36)
[2019-02-02] MEDS: Heparin 5000 units/ml inj SUBQ SCH ×2 (10:04→20:38)
[2019-02-02] MEDS ORDERED: Heparin1,000 units/500ml Premix(Conc:2 units/ml) ONE (10:21)
[2019-02-02] MEDS ORDERED: Lidocaine 1% Plain 30 ml INJ ONE (10:21)
--- NOTE | 2019-02-02 10:22 | Surgery Progress Note ---
Surgery Progress Note Subjective Additional Comments patient seen and examined at bedside he has since been extubated and doing well responsive eyes open to command leukocytosis lft's mildly elevated not tolerated ng or og tube Objective Last 24 Hour Vital Signs Date Time Temp Pulse Resp B/P (MAP) Pulse Ox O2 Delivery O2 Flow Rate FiO2 02/02/19 07:00 113/56 02/02/19 07:00 54 19 113/56 (75) 97 02/02/19 06:54 97 Cool Aerosol 8.0 30 02/02/19 06:30 58 16 119/51 (73) 97 02/02/19 06:00 57 7 94/45 (61) 91 02/02/19 06:00 82/40 02/02/19 05:46 65 19 100 Cool Aerosol 8.0 30 62 17 98 02/02/19 05:00 55 7 103/52 (69) 97 02/02/19 05:00 116/52 02/02/19 04:30 55 15 117/51 (73) 97 02/02/19 04:00 56 13 100/52 (68) 98 02/02/19 04:00 100/52 02/02/19 04:00 Venturi Mask 10.0 Venturi Mask 02/02/19 04:00 57 02/02/19 03:30 58 18 107/51 (69) 99 02/02/19 03:00 110/56 02/02/19 03:00 98.0 58 16 110/57 (74) 97 02/02/19 02:30 55 19 116/50 (72) 97 02/02/19 02:00 57 18 114/49 (70) 100 02/02/19 02:00 116/54 02/02/19 01:35 100 Cool Aerosol 8.0 30 02/02/19 01:00 55 13 106/47 (66) 99 02/02/19 01:00 106/47 02/02/19 00:00 58 13 114/57 (76) 99 02/02/19 00:00 54 02/02/19 00:00 Venturi Mask 10.0 Venturi Mask 02/02/19 00:00 114/57 02/01/19 23:30 97.7 66 17 146/68 (94) 100 02/01/19 23:00 141/64 02/01/19 23:00 64 14 141/64 (89) 99 02/01/19 22:30 89 16 137/75 (95) 98 02/01/19 22:00 164/90 02/01/19 22:00 85 16 164/90 (114) 99 02/01/19 21:30 72 16 161/76 (104) 99 02/01/19 21:00 59 18 147/57 (87) 99 02/01/19 21:00 147/57 02/01/19 21:00 164/90 02/01/19 20:30 77 17 142/55 (84) 97 02/01/19 20:00 98.5 79 16 158/61 (93) 99 02/01/19 20:00 159/61 02/01/19 20:00 Venturi Mask 10.0 Venturi Mask 02/01/19 20:00 67 02/01/19 19:30 67 15 158/48 (84) 99 02/01/19 19:05 84/44 02/01/19 19:02 97 Cool Aerosol 8.0 30 02/01/19 19:02 84/44 02/01/19 19:00 119/52 02/01/19 18:57 80 13 136/63 (87) 98 02/01/19 18:30 75 12 119/52 (74) 93 02/01/19 18:00 138/60 02/01/19 18:00 72 18 138/60 (86) 92 02/01/19 17:30 79 16 135/63 (87) 97 02/01/19 17:00 76 16 125/64 (84) 97 02/01/19 17:00 125/64 02/01/19 16:30 73 17 140/57 (84) 97 02/01/19 16:00 35 02/01/19 16:00 98.6 63 14 144/62 (89) 100 02/01/19 16:00 Mechanical Ventilator 02/01/19 16:00 144/62 02/01/19 16:00 58 02/01/19 15:30 58 14 144/76 (98) 100 02/01/19 15:01 58 16 35 02/01/19 15:00 83 16 141/66 (91) 100 02/01/19 15:00 141/66 02/01/19 14:55 Venturi Mask 6.0 30 02/01/19 14:30 92 13 104/69 (81) 97 02/01/19 14:00 71 14 146/64 (91) 97 02/01/19 14:00 146/64 02/01/19 13:30 65 13 129/59 (82) 99 02/01/19 13:24 63 12 35 02/01/19 13:24 98 02/01/19 13:00 62 8 112/54 (73) 94 02/01/19 13:00 112/54 02/01/19 12:30 55 20 131/60 (83) 96 02/01/19 12:00 Mechanical Ventilator 02/01/19 12:00 35 02/01/19 12:00 50 02/01/19 12:00 112/63 02/01/19 12:00 98.5 65 20 112/63 (79) 98 02/01/19 11:45 70 18 107/60 (76) 99 02/01/19 11:30 65 20 104/63 (77) 98 02/01/19 11:20 55 20 35 02/01/19 11:15 56 20 126/56 (79) 98 02/01/19 11:00 146/82 02/01/19 11:00 102 20 146/82 (103) 98 02/01/19 10:45 165/105 02/01/19 10:45 109 20 165/105 (125) 98 02/01/19 10:30 112 19 134/98 (110) 88 I&O Intake and Output 02/01/19 02/02/19 19:00 07:00 Intake Total 885.0235 ml 417.876 ml Output Total 1240 ml 1575 ml Balance -354.9765 ml -1157.124 ml Free Water 30 ml IV Total 450.0235 ml 417.876 ml Tube Feeding 405 ml 0 ml Output Urine Total 1240 ml 1575 ml # Bowel Movements 3 1 Dressing: other Wound: other Drains: other Cardiovascular: RSR Respiratory: decreased breath sounds Abdomen: soft, non-distended, decreased bowel sounds Extremities: no cyanosis, other Laboratory Tests Test 02/01/19 15:21 02/02/19 02:45 Arterial Blood pH 7.526 (7.350-7.450) Arterial Blood Partial Pressure CO2 41.0 mmHg (35.0-45.0) Arterial Blood Partial Pressure O2 87.2 mmHg (75.0-100.0) Arterial Blood HCO3 33.2 mmol/L (22.0-26.0) H Arterial Blood Oxygen Saturation 96.7 % (95-100) Arterial Blood Base Excess 9.6 (-2-2) *H Kvng Test Positive White Blood Count 16.6 K/UL (4.8-10.8) H Red Blood Count 4.23 M/UL (4.70-6.10) L Hemoglobin 13.0 G/DL (14.2-18.0) L Hematocrit 38.1 % (42.0-52.0) L Mean Corpuscular Volume 90 FL (80-99) Mean Corpuscular Hemoglobin 30.6 PG (27.0-31.0) Mean Corpuscular Hemoglobin Concent 34.1 G/DL (32.0-36.0) Red Cell Distribution Width 13.1 % (11.6-14.8) Platelet Count 279 K/UL (150-450) Mean Platelet Volume 4.9 FL (6.5-10.1) L Neutrophils (%) (Auto) 84.3 % (45.0-75.0) H Lymphocytes (%) (Auto) 10.0 % (20.0-45.0) L Monocytes (%) (Auto) 5.1 % (1.0-10.0) Eosinophils (%) (Auto) 0.1 % (0.0-3.0) Basophils (%) (Auto) 0.5 % (0.0-2.0) Sodium Level 142 MMOL/L (136-145) Potassium Level 3.4 MMOL/L (3.5-5.1) L Chloride Level 103 MMOL/L (98-107) Carbon Dioxide Level 35 MMOL/L (21-32) H Anion Gap 4 mmol/L (5-15) L Blood Urea Nitrogen 24 mg/dL (7-18) H Creatinine 1.2 MG/DL (0.55-1.30) Estimat Glomerular Filtration Rate > 60 mL/min (>60) Glucose Level 169 MG/DL (74-106) H Calcium Level 7.5 MG/DL (8.5-10.1) L Phosphorus Level 3.6 MG/DL (2.5-4.9) Magnesium Level 2.0 MG/DL (1.8-2.4) Total Bilirubin 0.3 MG/DL (0.2-1.0) Aspartate Amino Transf (AST/SGOT) 70 U/L (15-37) H Alanine Aminotransferase (ALT/SGPT) 116 U/L (12-78) H Alkaline Phosphatase 136 U/L (46-116) H Pro-B-Type Natriuretic Peptide 51653 pg/mL (0-125) H Total Protein 5.9 G/DL (6.4-8.2) L Albumin 1.9 G/DL (3.4-5.0) L Globulin 4.0 g/dL Albumin/Globulin Ratio 0.5 (1.0-2.7) L Plan Problems: (1) Sepsis Assessment & Plan: afebrile, HD improving HR -noted cardiology input leukocytosis lactic acidosis resolved slowly improving -IV abx as per ID -trend labs -swallow eval once more responsive -will follow with recs thank you (2) Septic shock (3) Wound, open Assessment & Plan: Patient presented on admission with multiple pressure injuries being identified. Non-blanching erythema without induration noted to sacrum ,Right and Left buttocks. Scattered areas that are darker and maroon in color noted within base of wound. Scrotum is also erythematous. Unstageable pressure injury noted to Left heel. Base of wound is 100% necrotic but soft. Erythematous margins with surrounding non-blanching erythema.(L)3.2cm x (W)3cm. no drainage Right heel is boggy with non-blanching erythema.. Keloid scar noted distal R tibia. Partial thickness ulcer noted to dorsal R foot. Base of wound is moist and viable. Small amt serous exudate noted. Scattered small dry scabs noted to dorsal R foot. Tx.Plan: Swab Dorsal R foot and R heel with Betadine. Cover with Optifoam drsg. Change every 3 days and prn. Apply Moisture Barrier Paste to buttocks. Cover sacrum with Optifoam drsg. Change every 3 days and prn. Apply Cavilon Skin Barrier to L heel.Cover with Optifoam drsg. Change every 7 days and prn. APM/JELLY mattress. Reposition at least every 2hours or as tolerated. Off-load heels with pillow. Nutritional Optimization Will monitor while in critical condition DAILY ESTIMATED NEEDS: Needs based on Critical care, sepsis, wounds 69kg 22-30 kcals/kg 4607-9161 total kcals 1.25-2 g protein/kg 86-138 g total protein 25-30 mL/kg 3944-7433 total fluid mLs NUTRITION DIAGNOSIS: Increased kcal and pro needs r/t sepsis, wound healing, and underweight status as evidenced by pt w respiratory distress now intubated, critically elev WBC (*29.7), elev BG (200's), w/ multiple wounds (refer to eval), pt is @88% if [place] Body Weight. CURRENT TF: Glucerna 1.2 @30ml ENTERAL NUTRITION RECOMMENDATIONS: VITAL AF 1.2 @60ml/hr x24 hrs to provide 1440ml, 1728 kcal, 108g pro, 1168ml free H2O - WITH HEMODYNAMIC STABILITY, rec TF change to VITAL 1.2 to better meet est needs. Start @20ml/hr for 6 hrs. Advance as tolerated 10ml/hr q4-6 hrs to goal. - Flush per . HOB over 30 degrees If pt remains on pressor support, rec trophic feeds of Vital 1.2 @5-10ml/hr to maintain gut integrity. ------ ADDITIONAL RECOMMENDATIONS: 1) Per SNF: HT 71 inches, 152 lbs (69.1kg) 2) Wound care: Add DANIELA in 4oz water BID via OGT + VIT C 250mg BID (f/up w/ WC specialist) 3) Monitor lytes daily, replete as needed 4) Daily calibrated bed scale wtMauricio Harrisno Feb 02, 2019 10:22
--- NOTE | 2019-02-02 10:34 | Diagnostic Imaging Report ---
Indication: Shortness of breath Technique: One view of the chest Comparison: 02/01/2019 Findings: Interim removal of previously demonstrated nasogastric tube and endotracheal tube. Right arm PICC remains. Bilateral fairly extensive interstitial opacities persist, unchanged. There is a small left pleural effusion again demonstrated Impression: Interim endotracheal and nasogastric extubation Otherwise little blade changer one day
--- NOTE | 2019-02-02 10:35 | Pulmonolgy Critical Care Note ---
Critical Care - Asmt/Plan Problems: (1) Acute respiratory failure (2) Septic shock (3) Systolic heart failure (4) Chronic kidney disease (5) Malignant neoplasm of right kidney (6) COPD (chronic obstructive pulmonary disease) (7) Schizophrenia Respiratory: monitor respiratory rate, adjust FIO2 Cardiac: continue to monitor HR/BP, cardiac imaging - echo ordered, f/u BNP Renal: F/U I&O Infectious Disease: check cultures, continue antibiotics Gastrointestinal: continue feedings/current rate Endocrine: monitor blood sugar, other - dc steroids Hematologic: monitor H/H, transfuse if hgb<8.5 Neurologic: PRN Ativan, keep patient comfortable Affect: PRN ativan Prophylaxis: Heparin Disposition: keep in ICU Notes Reviewed: renal Discussed with: nurses, consultants, rn field case managerservices account manager - Objective Last 24 Hour Vital Signs Date Time Temp Pulse Resp B/P (MAP) Pulse Ox O2 Delivery O2 Flow Rate FiO2 02/02/19 07:00 113/56 02/02/19 07:00 54 19 113/56 (75) 97 02/02/19 06:54 97 Cool Aerosol 8.0 30 02/02/19 06:30 58 16 119/51 (73) 97 02/02/19 06:00 57 7 94/45 (61) 91 02/02/19 06:00 82/40 02/02/19 05:46 65 19 100 Cool Aerosol 8.0 30 62 17 98 02/02/19 05:00 55 7 103/52 (69) 97 02/02/19 05:00 116/52 02/02/19 04:30 55 15 117/51 (73) 97 02/02/19 04:00 56 13 100/52 (68) 98 02/02/19 04:00 100/52 02/02/19 04:00 Venturi Mask 10.0 Venturi Mask 02/02/19 04:00 57 02/02/19 03:30 58 18 107/51 (69) 99 02/02/19 03:00 110/56 02/02/19 03:00 98.0 58 16 110/57 (74) 97 02/02/19 02:30 55 19 116/50 (72) 97 02/02/19 02:00 57 18 114/49 (70) 100 02/02/19 02:00 116/54 02/02/19 01:35 100 Cool Aerosol 8.0 30 02/02/19 01:00 55 13 106/47 (66) 99 02/02/19 01:00 106/47 02/02/19 00:00 58 13 114/57 (76) 99 02/02/19 00:00 54 02/02/19 00:00 Venturi Mask 10.0 Venturi Mask 02/02/19 00:00 114/57 02/01/19 23:30 97.7 66 17 146/68 (94) 100 02/01/19 23:00 141/64 02/01/19 23:00 64 14 141/64 (89) 99 02/01/19 22:30 89 16 137/75 (95) 98 02/01/19 22:00 164/90 02/01/19 22:00 85 16 164/90 (114) 99 02/01/19 21:30 72 16 161/76 (104) 99 02/01/19 21:00 59 18 147/57 (87) 99 02/01/19 21:00 147/57 02/01/19 21:00 164/90 02/01/19 20:30 77 17 142/55 (84) 97 02/01/19 20:00 98.5 79 16 158/61 (93) 99 02/01/19 20:00 159/61 02/01/19 20:00 Venturi Mask 10.0 Venturi Mask 02/01/19 20:00 67 02/01/19 19:30 67 15 158/48 (84) 99 02/01/19 19:05 84/44 02/01/19 19:02 97 Cool Aerosol 8.0 30 02/01/19 19:02 84/44 02/01/19 19:00 119/52 02/01/19 18:57 80 13 136/63 (87) 98 02/01/19 18:30 75 12 119/52 (74) 93 02/01/19 18:00 138/60 02/01/19 18:00 72 18 138/60 (86) 92 02/01/19 17:30 79 16 135/63 (87) 97 02/01/19 17:00 76 16 125/64 (84) 97 02/01/19 17:00 125/64 02/01/19 16:30 73 17 140/57 (84) 97 02/01/19 16:00 35 02/01/19 16:00 98.6 63 14 144/62 (89) 100 02/01/19 16:00 Mechanical Ventilator 02/01/19 16:00 144/62 02/01/19 16:00 58 02/01/19 15:30 58 14 144/76 (98) 100 02/01/19 15:01 58 16 35 02/01/19 15:00 83 16 141/66 (91) 100 02/01/19 15:00 141/66 02/01/19 14:55 Venturi Mask 6.0 30 02/01/19 14:30 92 13 104/69 (81) 97 02/01/19 14:00 71 14 146/64 (91) 97 02/01/19 14:00 146/64 02/01/19 13:30 65 13 129/59 (82) 99 02/01/19 13:24 63 12 35 02/01/19 13:24 98 02/01/19 13:00 62 8 112/54 (73) 94 02/01/19 13:00 112/54 02/01/19 12:30 55 20 131/60 (83) 96 02/01/19 12:00 Mechanical Ventilator 02/01/19 12:00 35 02/01/19 12:00 50 02/01/19 12:00 112/63 02/01/19 12:00 98.5 65 20 112/63 (79) 98 02/01/19 11:45 70 18 107/60 (76) 99 02/01/19 11:30 65 20 104/63 (77) 98 02/01/19 11:20 55 20 35 02/01/19 11:15 56 20 126/56 (79) 98 02/01/19 11:00 146/82 02/01/19 11:00 102 20 146/82 (103) 98 02/01/19 10:45 165/105 02/01/19 10:45 109 20 165/105 (125) 98 02/01/19 10:30 112 19 134/98 (110) 88 Status: awake Condition: critical Neck: full ROM Lungs: rales, rhonchi Heart: HR/BP stable Abdomen: soft, non-tender Extremities: no C/C/E Micro: Microbiology Date/Time Source Procedure Growth Status 01/31/19 10:10 Blood Blood Culture - Preliminary NO GROWTH AFTER 24 HOURS Resulted 01/31/19 09:55 Blood Blood Culture - Preliminary NO GROWTH AFTER 24 HOURS Resulted Accucheck: 146 Critical Care - Subjective ICU Day: 9 Interval Events: more awake, tolerating extubation FI02: 30 Vent Support Breath Rate: 20 Vent Support Mode: CPAP Vent Tidal Volume: 500 Sputum Amount: None PEEP: 5.0 PIP: 13 Tube Feeding Amount: 0 I&O: Intake and Output 02/01/19 02/02/19 19:00 07:00 Intake Total 885.0235 ml 417.876 ml Output Total 1240 ml 1575 ml Balance -354.9765 ml -1157.124 ml Free Water 30 ml IV Total 450.0235 ml 417.876 ml Tube Feeding 405 ml 0 ml Output Urine Total 1240 ml 1575 ml # Bowel Movements 3 1 CXR: interstitial infiltrate ET-Tube: 7.5 ET Position: 26 Labs: Laboratory Tests Test 02/01/19 15:21 02/02/19 02:45 Arterial Blood pH 7.526 (7.350-7.450) Arterial Blood Partial Pressure CO2 41.0 mmHg (35.0-45.0) Arterial Blood Partial Pressure O2 87.2 mmHg (75.0-100.0) Arterial Blood HCO3 33.2 mmol/L (22.0-26.0) H Arterial Blood Oxygen Saturation 96.7 % (95-100) Arterial Blood Base Excess 9.6 (-2-2) *H Kvng Test Positive White Blood Count 16.6 K/UL (4.8-10.8) H Red Blood Count 4.23 M/UL (4.70-6.10) L Hemoglobin 13.0 G/DL (14.2-18.0) L Hematocrit 38.1 % (42.0-52.0) L Mean Corpuscular Volume 90 FL (80-99) Mean Corpuscular Hemoglobin 30.6 PG (27.0-31.0) Mean Corpuscular Hemoglobin Concent 34.1 G/DL (32.0-36.0) Red Cell Distribution Width 13.1 % (11.6-14.8) Platelet Count 279 K/UL (150-450) Mean Platelet Volume 4.9 FL (6.5-10.1) L Neutrophils (%) (Auto) 84.3 % (45.0-75.0) H Lymphocytes (%) (Auto) 10.0 % (20.0-45.0) L Monocytes (%) (Auto) 5.1 % (1.0-10.0) Eosinophils (%) (Auto) 0.1 % (0.0-3.0) Basophils (%) (Auto) 0.5 % (0.0-2.0) Sodium Level 142 MMOL/L (136-145) Potassium Level 3.4 MMOL/L (3.5-5.1) L Chloride Level 103 MMOL/L (98-107) Carbon Dioxide Level 35 MMOL/L (21-32) H Anion Gap 4 mmol/L (5-15) L Blood Urea Nitrogen 24 mg/dL (7-18) H Creatinine 1.2 MG/DL (0.55-1.30) Estimat Glomerular Filtration Rate > 60 mL/min (>60) Glucose Level 169 MG/DL (74-106) H Calcium Level 7.5 MG/DL (8.5-10.1) L Phosphorus Level 3.6 MG/DL (2.5-4.9) Magnesium Level 2.0 MG/DL (1.8-2.4) Total Bilirubin 0.3 MG/DL (0.2-1.0) Aspartate Amino Transf (AST/SGOT) 70 U/L (15-37) H Alanine Aminotransferase (ALT/SGPT) 116 U/L (12-78) H Alkaline Phosphatase 136 U/L (46-116) H Pro-B-Type Natriuretic Peptide 38940 pg/mL (0-125) H Total Protein 5.9 G/DL (6.4-8.2) L Albumin 1.9 G/DL (3.4-5.0) L Globulin 4.0 g/dL Albumin/Globulin Ratio 0.5 (1.0-2.7) L Ron Anthony MD Feb 02, 2019 10:35
--- NOTE | 2019-02-02 10:35 | Nephrology Progress Note ---
Assessment/Plan Problem List: (1) Renal failure (ARF), acute on chronic (2) Acute respiratory failure (3) Septic shock (4) Cardiomyopathy (5) Bradyarrhythmia Assessment Renal failure- Likely acute on Chronic- Cr lower Acute respiratory failure- intubated on Vent Septic Shock- On pressors COPD PVD Schizophrenia Plan Now ( 02/02) extubated pulmonary support stop IV fluid renal dose dopamin for low HR K supplement down on hydration One dose IV Lasix mag and Phos and K supplement as needed 2D Echo Low Ej Fx - Global Hypokinesis Avoid nephrotoxics afterload reduction monitor renal parameters urine studies ADRIAN IMPRESSION: Nonobstructive stones in the left kidney demonstrated. Bilateral renal cysts. Subjective ROS Limited/Unobtainable: No Constitutional: Reports: malaise, weakness Objective Objective Last 24 Hour Vital Signs Date Time Temp Pulse Resp B/P (MAP) Pulse Ox O2 Delivery O2 Flow Rate FiO2 02/02/19 07:00 113/56 02/02/19 07:00 54 19 113/56 (75) 97 02/02/19 06:54 97 Cool Aerosol 8.0 30 02/02/19 06:30 58 16 119/51 (73) 97 02/02/19 06:00 57 7 94/45 (61) 91 02/02/19 06:00 82/40 02/02/19 05:46 65 19 100 Cool Aerosol 8.0 30 62 17 98 02/02/19 05:00 55 7 103/52 (69) 97 02/02/19 05:00 116/52 02/02/19 04:30 55 15 117/51 (73) 97 02/02/19 04:00 56 13 100/52 (68) 98 02/02/19 04:00 100/52 02/02/19 04:00 Venturi Mask 10.0 Venturi Mask 02/02/19 04:00 57 02/02/19 03:30 58 18 107/51 (69) 99 02/02/19 03:00 110/56 02/02/19 03:00 98.0 58 16 110/57 (74) 97 02/02/19 02:30 55 19 116/50 (72) 97 02/02/19 02:00 57 18 114/49 (70) 100 02/02/19 02:00 116/54 02/02/19 01:35 100 Cool Aerosol 8.0 30 02/02/19 01:00 55 13 106/47 (66) 99 02/02/19 01:00 106/47 02/02/19 00:00 58 13 114/57 (76) 99 02/02/19 00:00 54 02/02/19 00:00 Venturi Mask 10.0 Venturi Mask 02/02/19 00:00 114/57 02/01/19 23:30 97.7 66 17 146/68 (94) 100 02/01/19 23:00 141/64 02/01/19 23:00 64 14 141/64 (89) 99 02/01/19 22:30 89 16 137/75 (95) 98 02/01/19 22:00 164/90 02/01/19 22:00 85 16 164/90 (114) 99 02/01/19 21:30 72 16 161/76 (104) 99 02/01/19 21:00 59 18 147/57 (87) 99 02/01/19 21:00 147/57 02/01/19 21:00 164/90 02/01/19 20:30 77 17 142/55 (84) 97 02/01/19 20:00 98.5 79 16 158/61 (93) 99 02/01/19 20:00 159/61 02/01/19 20:00 Venturi Mask 10.0 Venturi Mask 02/01/19 20:00 67 02/01/19 19:30 67 15 158/48 (84) 99 02/01/19 19:05 84/44 02/01/19 19:02 97 Cool Aerosol 8.0 30 02/01/19 19:02 84/44 02/01/19 19:00 119/52 02/01/19 18:57 80 13 136/63 (87) 98 02/01/19 18:30 75 12 119/52 (74) 93 02/01/19 18:00 138/60 02/01/19 18:00 72 18 138/60 (86) 92 02/01/19 17:30 79 16 135/63 (87) 97 02/01/19 17:00 76 16 125/64 (84) 97 02/01/19 17:00 125/64 02/01/19 16:30 73 17 140/57 (84) 97 02/01/19 16:00 35 02/01/19 16:00 98.6 63 14 144/62 (89) 100 02/01/19 16:00 Mechanical Ventilator 02/01/19 16:00 144/62 02/01/19 16:00 58 02/01/19 15:30 58 14 144/76 (98) 100 02/01/19 15:01 58 16 35 02/01/19 15:00 83 16 141/66 (91) 100 02/01/19 15:00 141/66 02/01/19 14:55 Venturi Mask 6.0 30 02/01/19 14:30 92 13 104/69 (81) 97 02/01/19 14:00 71 14 146/64 (91) 97 02/01/19 14:00 146/64 02/01/19 13:30 65 13 129/59 (82) 99 02/01/19 13:24 63 12 35 02/01/19 13:24 98 02/01/19 13:00 62 8 112/54 (73) 94 02/01/19 13:00 112/54 02/01/19 12:30 55 20 131/60 (83) 96 02/01/19 12:00 Mechanical Ventilator 02/01/19 12:00 35 02/01/19 12:00 50 02/01/19 12:00 112/63 02/01/19 12:00 98.5 65 20 112/63 (79) 98 02/01/19 11:45 70 18 107/60 (76) 99 02/01/19 11:30 65 20 104/63 (77) 98 02/01/19 11:20 55 20 35 02/01/19 11:15 56 20 126/56 (79) 98 02/01/19 11:00 146/82 02/01/19 11:00 102 20 146/82 (103) 98 02/01/19 10:45 165/105 02/01/19 10:45 109 20 165/105 (125) 98 Intake and Output 02/01/19 02/02/19 19:00 07:00 Intake Total 885.0235 ml 417.876 ml Output Total 1240 ml 1575 ml Balance -354.9765 ml -1157.124 ml Free Water 30 ml IV Total 450.0235 ml 417.876 ml Tube Feeding 405 ml 0 ml Output Urine Total 1240 ml 1575 ml # Bowel Movements 3 1 Laboratory Tests 02/01/19 15:21: Arterial Blood pH 7.526H, Arterial Blood Partial Pressure CO2 41.0, Arterial Blood Partial Pressure O2 87.2, Arterial Blood HCO3 33.2H, Arterial Blood Oxygen Saturation 96.7, Arterial Blood Base Excess 9.6*H, Kvng Test Positive 02/02/19 02:45: White Blood Count 16.6H, Red Blood Count 4.23L, Hemoglobin 13.0L, Hematocrit 38.1L, Mean Corpuscular Volume 90, Mean Corpuscular Hemoglobin 30.6, Mean Corpuscular Hemoglobin Concent 34.1, Red Cell Distribution Width 13.1, Platelet Count 279, Mean Platelet Volume 4.9L, Neutrophils (%) (Auto) 84.3H, Lymphocytes (%) (Auto) 10.0L, Monocytes (%) (Auto) 5.1, Eosinophils (%) (Auto) 0.1, Basophils (%) (Auto) 0.5, Sodium Level 142, Potassium Level 3.4L, Chloride Level 103, Carbon Dioxide Level 35H, Anion Gap 4L, Blood Urea Nitrogen 24H, Creatinine 1.2, Estimat Glomerular Filtration Rate > 60, Glucose Level 169H, Calcium Level 7.5L, Phosphorus Level 3.6, Magnesium Level 2.0, Total Bilirubin 0.3, Aspartate Amino Transf (AST/SGOT) 70H, Alanine Aminotransferase (ALT/SGPT) 116H, Alkaline Phosphatase 136H, Pro-B-Type Natriuretic Peptide 36566Z, Total Protein 5.9L, Albumin 1.9L, Globulin 4.0, Albumin/Globulin Ratio 0.5L Height (Feet): 5 Height (Inches): 6.00 Weight (Pounds): 154 General Appearance: no apparent distress, lethargic Cardiovascular: bradycardia Respiratory/Chest: decreased breath sounds Abdomen: distended Bienvenido Gonzalez MD Feb 02, 2019 10:35
--- NOTE | 2019-02-02 10:55 | NUR ---
NURSE NOTES: Dr. Anthony placed ordered for patient after reviewing chart, no verbal orders given at this time.
--- NOTE | 2019-02-02 11:30 | NUR ---
NURSE NOTES: 2D-Echo competed at the bedside and awaiting for results.
--- NOTE | 2019-02-02 11:55 | NUR ---
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 98.6 HR 54 RR 17 B/P 98/49 VENTI MASK WBC 16.6 BUN 24 K 3.4 BNP 13194 AST 70 ALT 116 ALK PHOS 136 IS: DOPAMINE GTT ZYVOX IV PROTONIX IV ICU STATUS
--- NOTE | 2019-02-02 12:16 | NUR ---
RD ASSESSMENT & RECOMMENDATIONS SEE CARE ACTIVITY FOR COMPLETE ASSESSMENT DAILY ESTIMATED NEEDS: Needs based on Pulmonary, sepsis, wounds 69kg 28-33 kcals/kg 4458-1829 total kcals 1.25-2 g protein/kg 86-138 g total protein 25-30 mL/kg 8896-8433 total fluid mLs NUTRITION DIAGNOSIS: Increased kcal and pro needs r/t sepsis, wound healing, and underweight status as evidenced by pt w respiratory distress now s/p extubation, critically elev WBC (*29.7-> 16.7), elev BGs w/ POC (162-210), w/ multiple wounds (refer to eval), pt is @88% if [place] Body Weight. (CURRENT TF:Glucerna 1.2 @45) PO DIET RECOMMENDATIONS: SOFTWARE DEVELOPMENT ADVISOR eval post extubation -> CCHO MED, LOW NA + Glucerna w/ meals ADDITIONAL RECOMMENDATIONS: 1) Per SNF: HT 71 inches, 152 lbs (69.1kg) 2) Wound care: Add DANIELA in 4oz water BID via OGT Continue VIT C 250mg BID 3) Monitor lytes daily, replete as needed (K low) 4) Daily calibrated bed scale wts 5) Monitor BGs closely, need for long acting insulin -> elev BGs + on steroidal med
--- NOTE | 2019-02-02 12:18 | Cardiology Report ---
APPROVED REPORT EXAM: Two-dimensional and M-mode echocardiogram with Doppler and color Doppler. INDICATION 2ND DEGREE HEART BLOCK M-Mode DIMENSIONS IVSd1.0 (0.7-1.1cm)Left Atrium (MM)3.7 (1.6-4.0cm) LVDd4.4 (3.5-5.6cm)Aortic Root3.3 (2.0-3.7cm) PWd0.8 (0.7-1.1cm)Aortic Cusp Exc.1.5 (1.5-2.0cm) IVSs1.1 cm LVDs3.4 (2.5-4.0cm) PWs1.2 cm Technically difficult study due to poor acoustical windows. Study quality precludes accurate assessment of regional wall motion. Global hypokinesis to the extent visulaized , EF estimated 35-40% No left ventricular hypertrophy. No pericardial effusion. All other cardiac chamber sizes are within normal limits. Focal aortic valve sclerosis with adequate cusp excursion. Moderately thickened mitral valve leaflets with normal excursion. Mitral annulus and aortic root calcification. Pulmonic valve not well visualized. Normal tricuspid valve structure. A color flow and spectral Doppler study was performed and revealed: No aortic insufficiency. Trace mitral regurgitation. Mitral diastolic velocities suggest reduced left ventricular relaxation c/w mild LV diastolic dysfunction (Grade I ). Trace tricuspid regurgitation. Tricuspid systolic velocities suggests peak right ventricular systolic pressure of 18 mmHg.
--- NOTE | 2019-02-02 12:54 | NUR ---
ST NOTES: REFERRED BY DR ORTIZ FOR A SWALLOW EVALUATION, SEE FULL REPORT. DYSPHAGIA RISK FACTORS FOR THIS 68 Y.O.M.: ACUTE ISSUES: POSSIBLE PNA AND H/O PNA (?ASPIRATION HE HAS A H/O DYSPHAGIA WAS AT [facility] PREVIOUSLY), LUNG CONGESTION/FEVER, RESPIRATORY DISTRESS/FAILURE INTUBATED AND OGT PLACED 01/24 TO 02/01/19 (ONE DAY POST EXTUBATION), AMS AND RESTLESSNESS, SEPTIC SHOCK (UROSEPSIS), DEHYDRATION H/O ADVANCED AGE, DYSPHAGIA AT SNF, GERD MEDS, PROTEIN-MAGGIE MALNUTRITION, (UNDERWEIGHT PER RD), DEMENTIA, PNA, COPD, PSYCH (SCHIZOPHRENIA AND ANXIETY ON SEROQUEL), CKD, HTN, CARDIAC D/O, RECENT FEMORAL BYPASS SURGERY 12/14/18, SMOKING DEP. NO POLST/AD REGARDING TF. HAD OGT FROM 01/25 TO 02/01/19 PULLED OUT WHEN EXTUBATED YESTERDAY (WAS ON GLUCERNA FORMULA) AND NOW NPO EXCEPT MEDS AT SNF ON AMANDA PUREED AND NTL (WAS ON MECH SOFT CHOPPED AND NTL) AND SAW ST PER RD WHEN GIVEN PO, ORDER CCHO-MED LOW NA DIET TYPE. ALERT BUT CONFUSED AND NOT ALWAYS FOLLOWING ORAL COMMANDS NOR ANSWERING SOME QUESTIONS. HAD SOME DENTITION. PT SAID HE HAD A MOD BARIUM SWALLOW STUDY A LONG TIME AGO. INITIAL IMPRESSIONS: HIGH RISK FOR PERSISTENT OR WORSENED OROPHARYNGEAL DYSPHAGIA OP DYSPHAGIA FOR ORAL SECRETIONS PER RT AND RN (NEEDS ORAL SUCTION) HIGH RISK FOR SILENT ASPIRATION GIVEN HIS DX OF DEMENTIA AND COPD (HIGH RESP RATE TO 24 AT TIMES) RECOMMENDATIONS: KEEP NPO NO PO MEDS AND INITIATE NGT FEEDINGS (12 COSTA RICAN) AND CONTINUE WITH ORAL CARE/SUCTION AND ASPIRATION PRECAUTIONS WITH SECRETIONS AND FUTURE NGT FEEDINGS. MOD BARIUM SWALLOW STUDY WHEN READY AND IF RECEPTIVE. SKILLED DYSPHAGIA MANAGEMENT AND TX AND COG-COM EVAL/TX D/W DR ORTIZ WHO AGREED TO RECOMMENDATION D/W EUGENIA [place] Addendum: 11/19/19 at 1257 by BERKLEY EDMOND PER FELIX BELLO, PATIENT APPEARED TO TOLERATE CRUSHED MEDS AND APPLESAUCE W/O OVERT ASPIRATION.
--- NOTE | 2019-02-02 12:57 | Infectious Diseases Prog Note ---
Assessment/Plan Assessment/Plan 68yo gentleman with PMH below presents with fever(100.1 is highest recorded in transfer packet) and worsened congestion from SNF. In the ED, pt was placed on oxygen then BiPAP but ultimately intubated. ID consulted for antimicrobial recommendation. Tmax 100.1 at retirement, SP Leukocytosis, uptrending, hydrocortisone 01/25-02/02 Lactic acidosis, SP Shock, was on levophed, titrated off, but now on dopamine Likely MRSA PNA COPD? CHF? thick secretions per nurse flu swab negative 01/24 CXR: Extensive opacities within upper lobes demonstrated. In addition there is generalized interstitial densities throughout both lung craig. 01/25 CXR: Bilateral infiltrates appear fairly extensive but unchanged. TTE with EF 30-35% 01/25 sputum cx: MRSA 01/25 urine legionella ag: P 01/27 CXR: Extensive infiltrates bilaterally. Some degree of a superimposed interstitial edema has improved since the last exam. Endotracheal tube and NG tube remain in satisfactory in position. 01/28 CXR: Extensive bilateral infiltrates are again demonstrated without change. Tubes and lines are stable. 01/28 sputum cx: MRSA 01/30 CXR: 1. Overall similar patchy opacities in the lungs, most prominently in the right upper lung and right mid and lower lung. Probable small bilateral pleural effusions. 2. Endotracheal tube terminates in the region of the lower thoracic aorta above the cristina. Enteric tube courses past the diaphragm and out of the [id number], but the sidehole is seen near the GE junction. 02/02 CXR: Interim removal of previously demonstrated nasogastric tube and endotracheal tube. Right arm PICC remains. Bilateral fairly extensive interstitial opacities persist, unchanged. There is a small left pleural effusion again demonstrated Possible UTI? new mcmahon placed in ED 01/25 UA 15-20 WBC 01/25 Ucx: NG Renal US: Nonobstructive stones in the left kidney demonstrated. Bilateral renal cysts. Limited evaluation due to body habitus. r/o bacteremia 01/25 BCx: ngtd 01/31 bcx: ngtd No diarrhea HIV test negative MRSA screen positive RLE skin graft b/l LE heel pressure ulcers and sacral ulcer Tobacco abuse COPD HTN Kidney cancer OA CKD Anemia Schizophrenia PVD CHF Plan: Linezolid #3/10 02/01 SP Azithromycin #5/5 for atypicals 01/31 Ertapenem #8 01/31 DC Amikacin and vancomycin #6 SP cefepime #1 SP flagyl #1 SP vancomycin #1 repeat bcx aspiration precaution, elevate HOB, ETT care, oral care pulmonary toilet, chest PT DVT PPX discussed with RN Thank you for this consult. [facility] will continue to follow the patient with you. Subjective Allergies: Coded Allergies: No Known Allergies (Unverified , 01/24/19) Subjective Afebrile. extubated yesterday. WBC stable still on dopamine awake alert. states he is comfortable Objective Vital Signs Last 24 Hour Vital Signs Date Time Temp Pulse Resp B/P (MAP) Pulse Ox O2 Delivery O2 Flow Rate FiO2 02/02/19 11:30 76 15 159/78 (105) 97 02/02/19 11:00 64 15 154/73 (100) 99 02/02/19 10:30 66 15 110/59 (76) 98 02/02/19 10:00 55 15 108/54 (72) 98 02/02/19 09:30 55 16 103/53 (70) 99 02/02/19 09:00 55 15 90/52 (65) 98 02/02/19 08:30 56 15 113/52 (72) 97 02/02/19 08:00 Venturi Mask 10.0 Venturi Mask 02/02/19 08:00 98.6 57 17 98/49 (65) 94 02/02/19 08:00 54 02/02/19 07:30 56 18 113/51 (71) 97 02/02/19 07:00 113/56 02/02/19 07:00 54 19 113/56 (75) 97 02/02/19 06:54 97 Cool Aerosol 8.0 30 02/02/19 06:30 58 16 119/51 (73) 97 02/02/19 06:00 57 7 94/45 (61) 91 02/02/19 06:00 82/40 02/02/19 05:46 65 19 100 Cool Aerosol 8.0 30 62 17 98 02/02/19 05:00 55 7 103/52 (69) 97 02/02/19 05:00 116/52 02/02/19 04:30 55 15 117/51 (73) 97 02/02/19 04:00 56 13 100/52 (68) 98 02/02/19 04:00 100/52 02/02/19 04:00 Venturi Mask 10.0 Venturi Mask 02/02/19 04:00 57 02/02/19 03:30 58 18 107/51 (69) 99 02/02/19 03:00 110/56 02/02/19 03:00 98.0 58 16 110/57 (74) 97 02/02/19 02:30 55 19 116/50 (72) 97 02/02/19 02:00 57 18 114/49 (70) 100 02/02/19 02:00 116/54 02/02/19 01:35 100 Cool Aerosol 8.0 30 02/02/19 01:00 55 13 106/47 (66) 99 02/02/19 01:00 106/47 02/02/19 00:00 58 13 114/57 (76) 99 02/02/19 00:00 54 02/02/19 00:00 Venturi Mask 10.0 Venturi Mask 02/02/19 00:00 114/57 02/01/19 23:30 97.7 66 17 146/68 (94) 100 02/01/19 23:00 141/64 02/01/19 23:00 64 14 141/64 (89) 99 02/01/19 22:30 89 16 137/75 (95) 98 02/01/19 22:00 164/90 02/01/19 22:00 85 16 164/90 (114) 99 02/01/19 21:30 72 16 161/76 (104) 99 02/01/19 21:00 59 18 147/57 (87) 99 02/01/19 21:00 147/57 02/01/19 21:00 164/90 02/01/19 20:30 77 17 142/55 (84) 97 02/01/19 20:00 98.5 79 16 158/61 (93) 99 02/01/19 20:00 159/61 02/01/19 20:00 Venturi Mask 10.0 Venturi Mask 02/01/19 20:00 67 02/01/19 19:30 67 15 158/48 (84) 99 02/01/19 19:05 84/44 02/01/19 19:02 97 Cool Aerosol 8.0 30 02/01/19 19:02 84/44 02/01/19 19:00 119/52 02/01/19 18:57 80 13 136/63 (87) 98 02/01/19 18:30 75 12 119/52 (74) 93 02/01/19 18:00 138/60 02/01/19 18:00 72 18 138/60 (86) 92 02/01/19 17:30 79 16 135/63 (87) 97 02/01/19 17:00 76 16 125/64 (84) 97 02/01/19 17:00 125/64 02/01/19 16:30 73 17 140/57 (84) 97 02/01/19 16:00 35 02/01/19 16:00 98.6 63 14 144/62 (89) 100 02/01/19 16:00 Mechanical Ventilator 02/01/19 16:00 144/62 02/01/19 16:00 58 02/01/19 15:30 58 14 144/76 (98) 100 02/01/19 15:01 58 16 35 02/01/19 15:00 83 16 141/66 (91) 100 02/01/19 15:00 141/66 02/01/19 14:55 Venturi Mask 6.0 30 02/01/19 14:30 92 13 104/69 (81) 97 02/01/19 14:00 71 14 146/64 (91) 97 02/01/19 14:00 146/64 02/01/19 13:30 65 13 129/59 (82) 99 02/01/19 13:24 63 12 35 02/01/19 13:24 98 02/01/19 13:00 62 8 112/54 (73) 94 02/01/19 13:00 112/54 Height (Feet): 5 Height (Inches): 6.00 Weight (Pounds): 154 Objective Gen: NAD HEENT: anicteric sclera. CV: RRR. Resp: coarse. equal chest rise. Abd: soft. normoactive Bs+ Neuro: awake. appropriate Skin: RLE skin graft Microbiology Date/Time Source Procedure Growth Status 01/31/19 10:10 Blood Blood Culture - Preliminary NO GROWTH AFTER 24 HOURS Resulted 01/31/19 09:55 Blood Blood Culture - Preliminary NO GROWTH AFTER 24 HOURS Resulted Laboratory Tests Test 02/01/19 15:21 02/02/19 02:45 Arterial Blood pH 7.526 (7.350-7.450) Arterial Blood Partial Pressure CO2 41.0 mmHg (35.0-45.0) Arterial Blood Partial Pressure O2 87.2 mmHg (75.0-100.0) Arterial Blood HCO3 33.2 mmol/L (22.0-26.0) H Arterial Blood Oxygen Saturation 96.7 % (95-100) Arterial Blood Base Excess 9.6 (-2-2) *H Kvng Test Positive White Blood Count 16.6 K/UL (4.8-10.8) H Red Blood Count 4.23 M/UL (4.70-6.10) L Hemoglobin 13.0 G/DL (14.2-18.0) L Hematocrit 38.1 % (42.0-52.0) L Mean Corpuscular Volume 90 FL (80-99) Mean Corpuscular Hemoglobin 30.6 PG (27.0-31.0) Mean Corpuscular Hemoglobin Concent 34.1 G/DL (32.0-36.0) Red Cell Distribution Width 13.1 % (11.6-14.8) Platelet Count 279 K/UL (150-450) Mean Platelet Volume 4.9 FL (6.5-10.1) L Neutrophils (%) (Auto) 84.3 % (45.0-75.0) H Lymphocytes (%) (Auto) 10.0 % (20.0-45.0) L Monocytes (%) (Auto) 5.1 % (1.0-10.0) Eosinophils (%) (Auto) 0.1 % (0.0-3.0) Basophils (%) (Auto) 0.5 % (0.0-2.0) Sodium Level 142 MMOL/L (136-145) Potassium Level 3.4 MMOL/L (3.5-5.1) L Chloride Level 103 MMOL/L (98-107) Carbon Dioxide Level 35 MMOL/L (21-32) H Anion Gap 4 mmol/L (5-15) L Blood Urea Nitrogen 24 mg/dL (7-18) H Creatinine 1.2 MG/DL (0.55-1.30) Estimat Glomerular Filtration Rate > 60 mL/min (>60) Glucose Level 169 MG/DL (74-106) H Calcium Level 7.5 MG/DL (8.5-10.1) L Phosphorus Level 3.6 MG/DL (2.5-4.9) Magnesium Level 2.0 MG/DL (1.8-2.4) Total Bilirubin 0.3 MG/DL (0.2-1.0) Aspartate Amino Transf (AST/SGOT) 70 U/L (15-37) H Alanine Aminotransferase (ALT/SGPT) 116 U/L (12-78) H Alkaline Phosphatase 136 U/L (46-116) H Pro-B-Type Natriuretic Peptide 98794 pg/mL (0-125) H Total Protein 5.9 G/DL (6.4-8.2) L Albumin 1.9 G/DL (3.4-5.0) L Globulin 4.0 g/dL Albumin/Globulin Ratio 0.5 (1.0-2.7) L Current Medications Medications (Trade) Dose Ordered Sig/Ricardo Route PRN Reason Start Time Stop Time Status Last Admin Dose Admin Acetaminophen (Tylenol) 650 mg Q4H PRN ORAL fever 01/24/19 20:00 02/23/19 19:59 Albuterol/ Ipratropium (Albuterol/ Ipratropium) 3 ml Q4HRT PRN HHN sob 01/30/19 08:00 02/04/19 07:59 02/02/19 05:45 Ascorbic Acid (Vitamin C) 250 mg TWICE A DAY ORAL 01/27/19 18:00 02/26/19 17:59 02/02/19 10:02 Chlorhexidine Gluconate (Roseanna-Hex 2%) 1 applic DAILY@2000 TOPIC 01/25/19 20:00 02/24/19 19:59 02/01/19 20:52 Dextrose (Dextrose 50%) 25 ml Q30M PRN IV Hypoglycemia 01/25/19 19:00 02/24/19 18:59 Dextrose (Dextrose 50%) 50 ml Q30M PRN IV Hypoglycemia 01/25/19 19:00 02/24/19 18:59 Dopamine HCl/ Dextrose 250 ml @ 0 mls/hr Q24H IV 01/28/19 10:45 02/27/19 10:44 02/01/19 19:02 Heparin Sodium (Porcine) (Heparin 5000 units/ml) 5,000 units EVERY 12 HOURS SUBQ 01/24/19 21:00 02/23/19 20:59 02/02/19 10:04 Insulin Aspart (NovoLOG) EVERY 6 HOURS SUBQ 01/26/19 00:00 02/25/19 00:00 02/01/19 11:59 Linezolid 300 ml @ 300 mls/hr Q12HR IVPB 01/31/19 09:00 02/07/19 08:59 02/02/19 10:02 Lorazepam (Ativan 2mg/ml 1ml) 2 mg Q2H PRN IV For Anxiety 01/30/19 08:00 02/06/19 07:59 Midodrine (Pro-Amatine) 10 mg THREE TIMES A DAY NG 01/30/19 13:00 03/01/19 12:59 02/02/19 10:02 Pantoprazole (Protonix) 40 mg DAILY IVP 01/25/19 09:00 02/24/19 08:59 02/02/19 10:01 Polyethylene Glycol (Miralax) 17 gm DAILYPRN PRN ORAL Constipation 01/24/19 20:00 02/23/19 19:59 02/01/19 05:47 Potassium Chloride (K-Dur) 40 meq TWICE A DAY NG 01/27/19 11:45 02/26/19 11:44 02/02/19 10:02 Pili Lenz MD Feb 02, 2019 12:57
--- NOTE | 2019-02-02 13:51 | GI Initial Consult Note ---
History of Present Illness General Date patient seen: Feb 02, 2019 Time patient seen: 13:46 Reason for Hospitalization: Dyspnea/Respdistress Referring physician: MARLEN MANE Reason for Consultation: TF INTOLERANCE/PEG EVALUATION Present Illness HPI Patient is a 68-year-old male sent in by private ambulance after increased congestion and fever. Patient a prior history of COPD. He was noted to have increased temperature as well as increased difficulty with respirations. He had been previously hospitalized at [facility]. He is noted to have some COPD. History is limited by patient's mental status. GI consulted for reported tube feeding intolerance versus PEG evaluation. ROS limited, patient seen in ICU status post extubation yesterday. Patient is pending video swallow evaluation study, which was unable to be performed due to to the patient's medical status. At the time of evaluation, the nasogastric tube has been self removed pending replacement today. Home Meds Reported Medications Acetaminophen* (ACETAMINOPHEN 325MG TABLET*) 325 Mg Tablet, 650 MG ORAL Q4H PRN for Mild Pain/Temp > 100.5, TAB 01/27/19 Quetiapine Fumarate* (SEROQUEL*) 200 Mg Tablet, 200 MG ORAL QHS, TAB 01/27/19 Quetiapine Fumarate* (SEROQUEL*) 100 Mg Tablet, 100 MG ORAL TWICE A DAY, TAB 01/27/19 Sennosides (SENNA) 8.6 Mg Tablet, 2 TAB PO QHS, TAB 01/27/19 Cyanocobalamin (Vitamin B-12) (VITAMIN B-12) 1,000 Mcg Tablet, 1000 MCG PO DAILY , TAB 01/27/19 Hydrocodone Bit/Acetaminophen 5-325* (NORCO 5-325*) 1 Each Tablet, 1 TAB ORAL Q4H PRN for Severe Pain (Pain Scale 7-10), TAB 01/27/19 Magnesium Hydroxide* (MILK OF MAGNESIA*) 400 Mg/5 Ml Oral.susp, 30 ML ORAL DAILY PRN for Constipation, ML 01/27/19 Multivitamin With Minerals (MULTIVITAMINS WITH MINERALS*) 1 Each Tablet, 1 TAB ORAL DAILY, TAB 01/27/19 Lactulose (LACTULOSE*) 20 Gm/30 Ml Solution, 30 ML ORAL DAILY, ML 0 Refills 01/27/19 Na Phos,M-B/Na Phos,Di-Ba* (FLEET ENEMA*) 133 Ml Enema, 133 ML RECTAL DAILY PRN for IF DULCOLAX INEFFECTIVE, ML 0 Refills 01/27/19 Bisacodyl (DULCOLAX) 10 Mg Supp.rect, 10 MG RC PRN PRN for IF MOM INEFFECTIVE, SUPP 01/27/19 Docusate Sodium* (DOCUSATE SODIUM*) 100 Mg Capsule, 100 MG ORAL DAILY, CAP 01/27/19 Clopidogrel Bisulfate* (PLAVIX*) 75 Mg Tablet, 75 MG ORAL DAILY, TAB 01/24/19 Ferrous Sulfate* (FERROUS SULFATE*) 325 Mg Tablet, 325 MG ORAL DAILY, #30 TAB 0 Refills 01/24/19 Zinc Sulfate (ZINC SULFATE*) 220 Mg Capsule, 220 MG ORAL DAILY, CAP 0 Refills 01/24/19 Donepezil Hcl* (ARICEPT*) 5 Mg Tablet, 5 MG ORAL DAILY, TAB 01/24/19 Gabapentin* (NEURONTIN*) 100 Mg Capsule, 300 MG ORAL THREE TIMES A DAY, CAP 0 Refills 01/24/19 Lidocaine Patch* (Lidoderm Patch*) 1 Each Adh..patch, 1 PATCH TOPIC DAILY, PATCH 0 Refills Patch(es) may remain in place for up to 12 hours in any 24-hour period. 01/24/19 Pantoprazole* (PROTONIX*) 40 Mg Tablet.dr, 40 MG ORAL DAILY, TAB 01/24/19 Ascorbic Acid* (VITAMIN C*) 500 Mg Tablet, 500 MG ORAL DAILY, #30 TAB 0 Refills 01/24/19 Enoxaparin* (LOVENOX*) 40 Mg/0.4 Ml Inj, 40 MG SUBQ DAILY 01/24/19 Discontinued Reported Medications Multivitamins* (MULTIVITAMINS*) 1 Each Tablet, 1 TAB ORAL DAILY, TAB 0 Refills 01/24/19 Cyanocobalamin (Vitamin B-12)* (VITAMIN B-12*) 500 Mcg Tablet, 1000 MCG ORAL QHS , #30 TAB 0 Refills 01/24/19 Med list reviewed/reconciled: Yes Allergies: Coded Allergies: No Known Allergies (Unverified , 01/24/19) Patient History Limited by: medical condition History Provided By: Medical Record PMH Narrative Past Medical History: see triage record Reviewed Nursing Documentation: PMH: Agreed; PSxH: Agreed Nursing Documentation-PM Past Medical History: No History, Except For Hx Cardiac Problems: No - Anemia Hx Hypertension: Yes Hx COPD: Yes Hx Cancer: Yes - Hx Kidney CA, Hx Dialysis: No - Chronic Renal Disease Hx Neurological Problems: No - Osteoarthritis Review of Systems All Other Systems: limited Physical Exam Vital Signs Date Time Temp Pulse Resp B/P (MAP) Pulse Ox O2 Delivery O2 Flow Rate FiO2 01/29/19 07:00 73 27 135/77 (96) 100 01/29/19 08:00 98.4 01/29/19 08:00 Mechanical Ventilator 01/29/19 08:00 40 02/01/19 14:55 6.0 Sp02 EP Interpretation: reviewed Labs Laboratory Tests Test 02/01/19 15:21 02/02/19 02:45 Arterial Blood pH 7.526 (7.350-7.450) Arterial Blood Partial Pressure CO2 41.0 mmHg (35.0-45.0) Arterial Blood Partial Pressure O2 87.2 mmHg (75.0-100.0) Arterial Blood HCO3 33.2 mmol/L (22.0-26.0) H Arterial Blood Oxygen Saturation 96.7 % (95-100) Arterial Blood Base Excess 9.6 (-2-2) *H Kvng Test Positive White Blood Count 16.6 K/UL (4.8-10.8) H Red Blood Count 4.23 M/UL (4.70-6.10) L Hemoglobin 13.0 G/DL (14.2-18.0) L Hematocrit 38.1 % (42.0-52.0) L Mean Corpuscular Volume 90 FL (80-99) Mean Corpuscular Hemoglobin 30.6 PG (27.0-31.0) Mean Corpuscular Hemoglobin Concent 34.1 G/DL (32.0-36.0) Red Cell Distribution Width 13.1 % (11.6-14.8) Platelet Count 279 K/UL (150-450) Mean Platelet Volume 4.9 FL (6.5-10.1) L Neutrophils (%) (Auto) 84.3 % (45.0-75.0) H Lymphocytes (%) (Auto) 10.0 % (20.0-45.0) L Monocytes (%) (Auto) 5.1 % (1.0-10.0) Eosinophils (%) (Auto) 0.1 % (0.0-3.0) Basophils (%) (Auto) 0.5 % (0.0-2.0) Sodium Level 142 MMOL/L (136-145) Potassium Level 3.4 MMOL/L (3.5-5.1) L Chloride Level 103 MMOL/L (98-107) Carbon Dioxide Level 35 MMOL/L (21-32) H Anion Gap 4 mmol/L (5-15) L Blood Urea Nitrogen 24 mg/dL (7-18) H Creatinine 1.2 MG/DL (0.55-1.30) Estimat Glomerular Filtration Rate > 60 mL/min (>60) Glucose Level 169 MG/DL (74-106) H Calcium Level 7.5 MG/DL (8.5-10.1) L Phosphorus Level 3.6 MG/DL (2.5-4.9) Magnesium Level 2.0 MG/DL (1.8-2.4) Total Bilirubin 0.3 MG/DL (0.2-1.0) Aspartate Amino Transf (AST/SGOT) 70 U/L (15-37) H Alanine Aminotransferase (ALT/SGPT) 116 U/L (12-78) H Alkaline Phosphatase 136 U/L (46-116) H Pro-B-Type Natriuretic Peptide 39697 pg/mL (0-125) H Total Protein 5.9 G/DL (6.4-8.2) L Albumin 1.9 G/DL (3.4-5.0) L Globulin 4.0 g/dL Albumin/Globulin Ratio 0.5 (1.0-2.7) L General Appearance: no apparent distress Head: normocephalic EENT: normal ENT inspection Neck: supple Respiratory: normal breath sounds Cardiovascular: normal rate Gastrointestinal: soft Rectal: deferred Neurologic: alert, responsive Psychiatric: normal inspection, judgement/insight normal Current Medications Current Medications Medications (Trade) Dose Ordered Sig/Ricardo Route PRN Reason Start Time Stop Time Status Last Admin Dose Admin Acetaminophen (Tylenol) 650 mg Q4H PRN ORAL fever 01/24/19 20:00 02/23/19 19:59 Albuterol/ Ipratropium (Albuterol/ Ipratropium) 3 ml Q4HRT PRN HHN sob 01/30/19 08:00 02/04/19 07:59 02/02/19 05:45 Ascorbic Acid (Vitamin C) 250 mg TWICE A DAY ORAL 01/27/19 18:00 02/26/19 17:59 02/02/19 10:02 Chlorhexidine Gluconate (Roseanna-Hex 2%) 1 applic DAILY@2000 TOPIC 01/25/19 20:00 02/24/19 19:59 02/01/19 20:52 Dextrose (Dextrose 50%) 25 ml Q30M PRN IV Hypoglycemia 01/25/19 19:00 02/24/19 18:59 Dextrose (Dextrose 50%) 50 ml Q30M PRN IV Hypoglycemia 01/25/19 19:00 02/24/19 18:59 Dopamine HCl/ Dextrose 250 ml @ 0 mls/hr Q24H IV 01/28/19 10:45 02/27/19 10:44 02/01/19 19:02 Heparin Sodium (Porcine) (Heparin 5000 units/ml) 5,000 units EVERY 12 HOURS SUBQ 01/24/19 21:00 02/23/19 20:59 02/02/19 10:04 Insulin Aspart (NovoLOG) EVERY 6 HOURS SUBQ 01/26/19 00:00 02/25/19 00:00 02/01/19 11:59 Linezolid 300 ml @ 300 mls/hr Q12HR IVPB 01/31/19 09:00 02/07/19 08:59 02/02/19 10:02 Lorazepam (Ativan 2mg/ml 1ml) 2 mg Q2H PRN IV For Anxiety 01/30/19 08:00 02/06/19 07:59 Midodrine (Pro-Amatine) 10 mg THREE TIMES A DAY NG 01/30/19 13:00 03/01/19 12:59 02/02/19 10:02 Pantoprazole (Protonix) 40 mg DAILY IVP 01/25/19 09:00 02/24/19 08:59 02/02/19 10:01 Polyethylene Glycol (Miralax) 17 gm DAILYPRN PRN ORAL Constipation 01/24/19 20:00 02/23/19 19:59 02/01/19 05:47 Potassium Chloride (K-Dur) 40 meq TWICE A DAY NG 01/27/19 11:45 02/26/19 11:44 02/02/19 10:02 GI: Plan Problems: (1) Encounter for PEG (percutaneous endoscopic gastrostomy) (2) Dysphagia (3) Sepsis Plan Status post extubation yesterday Will consider PEG placement if necessary. Follow-up swallow evaluation Reinsert nasogastric tube Start tube feedings after imaging confirmation Follow-up on a daily basis with additional recommendations Discussed with Dr. Valderrama. Thank you for this patient referral, we will follow. The patient was seen and examined at bedside and all new and available data was reviewed in the patients chart. I agree with the above findings, impression and plan. (Patient seen earlier today. Signature stamp does not reflect patient encounter time.). - MD Milka SweeneyCity [facility], [place] DIRECTOR [employer] Feb 02, 2019 13:51
--- NOTE | 2019-02-02 14:39 | General Progress Note ---
Assessment/Plan Problem List: (1) Renal failure (ARF), acute on chronic ICD Codes: N17.9 - Acute kidney failure, unspecified; N18.9 - Chronic kidney disease, unspecified SNOMED: 718251132 (2) Sepsis ICD Codes: A41.9 - Sepsis, unspecified organism SNOMED: 97578492 Qualifiers: Qualified Codes: A41.9 - Sepsis, unspecified organism (3) Malignant neoplasm of right kidney ICD Codes: C64.1 - Malignant neoplasm of right kidney, except renal pelvis SNOMED: 224503405 (4) Acute respiratory failure ICD Codes: J96.00 - Acute respiratory failure, unspecified whether with hypoxia or hypercapnia SNOMED: 09842404 (5) PVD (peripheral vascular disease) ICD Codes: I73.9 - Peripheral vascular disease, unspecified SNOMED: 321701516 Status: unchanged Assessment/Plan: vent abx wound care cbc bmp am ltach eval Subjective Constitutional: Reports: weakness Respiratory: Reports: shortness of breath Allergies: Coded Allergies: No Known Allergies (Unverified , 01/24/19) All Systems: reviewed and negative except above Subjective o2 mask in icu Objective Last 24 Hour Vital Signs Date Time Temp Pulse Resp B/P (MAP) Pulse Ox O2 Delivery O2 Flow Rate FiO2 02/02/19 12:00 78 02/02/19 11:30 76 15 159/78 (105) 97 02/02/19 11:00 64 15 154/73 (100) 99 02/02/19 10:30 66 15 110/59 (76) 98 02/02/19 10:00 55 15 108/54 (72) 98 02/02/19 09:30 55 16 103/53 (70) 99 02/02/19 09:00 55 15 90/52 (65) 98 02/02/19 08:30 56 15 113/52 (72) 97 02/02/19 08:00 Venturi Mask 10.0 Venturi Mask 02/02/19 08:00 98.6 57 17 98/49 (65) 94 02/02/19 08:00 54 02/02/19 07:30 56 18 113/51 (71) 97 02/02/19 07:00 113/56 02/02/19 07:00 54 19 113/56 (75) 97 11/19/19 06:54 97 Cool Aerosol 8.0 30 02/02/19 06:30 58 16 119/51 (73) 97 02/02/19 06:00 57 7 94/45 (61) 91 02/02/19 06:00 82/40 02/02/19 05:46 65 19 100 Cool Aerosol 8.0 30 62 17 98 02/02/19 05:00 55 7 103/52 (69) 97 02/02/19 05:00 116/52 02/02/19 04:30 55 15 117/51 (73) 97 02/02/19 04:00 56 13 100/52 (68) 98 02/02/19 04:00 100/52 02/02/19 04:00 Venturi Mask 10.0 Venturi Mask 02/02/19 04:00 57 02/02/19 03:30 58 18 107/51 (69) 99 02/02/19 03:00 110/56 02/02/19 03:00 98.0 58 16 110/57 (74) 97 02/02/19 02:30 55 19 116/50 (72) 97 02/02/19 02:00 57 18 114/49 (70) 100 02/02/19 02:00 116/54 02/02/19 01:35 100 Cool Aerosol 8.0 30 02/02/19 01:00 55 13 106/47 (66) 99 02/02/19 01:00 106/47 02/02/19 00:00 58 13 114/57 (76) 99 02/02/19 00:00 54 02/02/19 00:00 Venturi Mask 10.0 Venturi Mask 02/02/19 00:00 114/57 02/01/19 23:30 97.7 66 17 146/68 (94) 100 02/01/19 23:00 141/64 02/01/19 23:00 64 14 141/64 (89) 99 02/01/19 22:30 89 16 137/75 (95) 98 02/01/19 22:00 164/90 02/01/19 22:00 85 16 164/90 (114) 99 02/01/19 21:30 72 16 161/76 (104) 99 02/01/19 21:00 59 18 147/57 (87) 99 02/01/19 21:00 147/57 02/01/19 21:00 164/90 02/01/19 20:30 77 17 142/55 (84) 97 02/01/19 20:00 98.5 79 16 158/61 (93) 99 02/01/19 20:00 159/61 02/01/19 20:00 Venturi Mask 10.0 Venturi Mask 02/01/19 20:00 67 02/01/19 19:30 67 15 158/48 (84) 99 02/01/19 19:05 84/44 02/01/19 19:02 97 Cool Aerosol 8.0 30 02/01/19 19:02 84/44 02/01/19 19:00 119/52 02/01/19 18:57 80 13 136/63 (87) 98 02/01/19 18:30 75 12 119/52 (74) 93 02/01/19 18:00 138/60 02/01/19 18:00 72 18 138/60 (86) 92 02/01/19 17:30 79 16 135/63 (87) 97 02/01/19 17:00 76 16 125/64 (84) 97 02/01/19 17:00 125/64 02/01/19 16:30 73 17 140/57 (84) 97 02/01/19 16:00 35 02/01/19 16:00 98.6 63 14 144/62 (89) 100 02/01/19 16:00 Mechanical Ventilator 02/01/19 16:00 144/62 02/01/19 16:00 58 02/01/19 15:30 58 14 144/76 (98) 100 02/01/19 15:01 58 16 35 02/01/19 15:00 83 16 141/66 (91) 100 02/01/19 15:00 141/66 02/01/19 14:55 Venturi Mask 6.0 30 Intake and Output 02/01/19 02/02/19 19:00 07:00 Intake Total 885.0235 ml 417.876 ml Output Total 1240 ml 1575 ml Balance -354.9765 ml -1157.124 ml Free Water 30 ml IV Total 450.0235 ml 417.876 ml Tube Feeding 405 ml 0 ml Output Urine Total 1240 ml 1575 ml # Bowel Movements 3 1 Laboratory Tests 02/01/19 15:21: Arterial Blood pH 7.526H, Arterial Blood Partial Pressure CO2 41.0, Arterial Blood Partial Pressure O2 87.2, Arterial Blood HCO3 33.2H, Arterial Blood Oxygen Saturation 96.7, Arterial Blood Base Excess 9.6*H, Kvng Test Positive 02/02/19 02:45: White Blood Count 16.6H, Red Blood Count 4.23L, Hemoglobin 13.0L, Hematocrit 38.1L, Mean Corpuscular Volume 90, Mean Corpuscular Hemoglobin 30.6, Mean Corpuscular Hemoglobin Concent 34.1, Red Cell Distribution Width 13.1, Platelet Count 279, Mean Platelet Volume 4.9L, Neutrophils (%) (Auto) 84.3H, Lymphocytes (%) (Auto) 10.0L, Monocytes (%) (Auto) 5.1, Eosinophils (%) (Auto) 0.1, Basophils (%) (Auto) 0.5, Sodium Level 142, Potassium Level 3.4L, Chloride Level 103, Carbon Dioxide Level 35H, Anion Gap 4L, Blood Urea Nitrogen 24H, Creatinine 1.2, Estimat Glomerular Filtration Rate > 60, Glucose Level 169H, Calcium Level 7.5L, Phosphorus Level 3.6, Magnesium Level 2.0, Total Bilirubin 0.3, Aspartate Amino Transf (AST/SGOT) 70H, Alanine Aminotransferase (ALT/SGPT) 116H, Alkaline Phosphatase 136H, Pro-B-Type Natriuretic Peptide 69424P, Total Protein 5.9L, Albumin 1.9L, Globulin 4.0, Albumin/Globulin Ratio 0.5L Height (Feet): 5 Height (Inches): 6.00 Weight (Pounds): 154 General Appearance: lethargic EENT: normal ENT inspection Neck: normal alignment Cardiovascular: normal peripheral pulses, normal rate, regular rhythm Respiratory/Chest: chest wall non-tender, lungs clear, normal breath sounds Abdomen: normal bowel sounds, non tender, soft Extremities: normal inspection Edema: no edema noted Arm (L), no edema noted Arm (R), no edema noted Leg (L), no edema noted Leg (R), no edema noted Pedal (L), no edema noted Pedal (R), no edema noted Generalized Neurologic: motor weakness Skin: normal pigmentation, warm/dry Corey Short DO Feb 02, 2019 14:39
--- NOTE | 2019-02-02 16:30 | NUR ---
NURSE NOTES: NG-tube placed on second attempt, first attempt patient cough up tube and had to be repositioned, on second attempt tube went down with no resistance and is at 70cm on the right NAre, patient remains saturating at 95-97% on face mask at 35%, placed air in tube and confirmed with another RN but awaiting for abdominal X-ray confirmation on NG tip location, he has a gag reflex and is able to cough up phlegm to back of throat,
--- NOTE | 2019-02-02 18:24 | NUR ---
NURSE NOTES: patient remains NPO, awaiting for X-ray taken and awaiting for results to initiate tube feeding.
--- NOTE | 2019-02-02 18:52 | Diagnostic Imaging Report ---
Indication: Post nasogastric tube placement Technique: Supine view of the abdomen Comparison: 02/01/2019 Findings: Interim advancement of the nasogastric tube, now coiled in the gastric fundus with the tip projecting at the level of the antrum body junction. Considerable bowel gas is seen in the upper abdomen, predominantly within the colon Impression: Satisfactory position of nasogastric tube This agrees with the preliminary interpretation provided overnight by [facility] teleradiology service.
--- NOTE | 2019-02-02 19:31 | NUR ---
HAND-OFF: Report given to EUGENIA Rao.
[2019-02-02] MEDS: DOPamine 400mg/250ml 250 ML IV SCH (19:35)
--- NOTE | 2019-02-02 19:40 | NUR ---
NURSE NOTES: PATIENT AWOKE, CONFUSED TO TIME, PLACE AND SITUATION, ON FIO2 30 % COOL AEROSOL MASK, O2 SATURATION OVER 98% NOTED, HEART RATE 90'S/MIN SR NOTED, ABDOMEN SOFT, NON TENDER, NO BM NOTED, RIGHT SIDE NGT INTACT AND PATENT, HELD FEEDING STATUS DUE TO PENDING X-RAY RESULT, NO N/V STATUS, F/C INTACT AND PATENT, THIN YELLOW URINE OUTED, PICC LINE TO RIGHT UPPER ARM, INTACT AND PATENT, ONGOING DOPAMINE 4MCG/KG/MIN VIA PICC LINE, 2 POINT SOFT RESTRAINTS FOR SAFETY, ON P200 BED, LOCKED BED, KEPT HOB 30 DEGREES AND BED ALARM, PROVIDED CALL LIGHT WITHIN REACH, WILL CONTINUE TO MONITOR.
[2019-02-02] MEDS: Dyna-Hex 2% Top Sol 2oz TOPIC SCH (19:50)
--- NOTE | 2019-02-02 21:50 | NUR ---
NURSE NOTES: PATIENT TRIED TO PULL NGT OUT, GIVEN REDIRECTION AND SECURED RESTRAINTS FOR SAFETY, WILL CONTINUE TO MONITOR.
--- NOTE | 2019-02-02 23:55 | NUR ---
NURSE NOTES: ORAL CARE WAS DONE, DENIED PAIN OR SOB AT THIS TIME, ONGOING DOPAMINE 4MCG/KG/MIN VIA PICC LINE, WILL CONTINUE PLAN OF CARE.
[2019-02-03] VITALS (48 sets, daily range): BP systolic 56–147; BP diastolic 40–79
--- NOTE | 2019-02-03 01:50 | NUR ---
NURSE NOTES: PATIENT AWOKE, CALM IN BED, CONFUSED, ABLE TO COMMUNICATION AT THIS TIME, WILL CONTINUE TO MONITOR.
--- NOTE | 2019-02-03 03:50 | NUR ---
NURSE NOTES: MORNING CARE AND ORAL CARE WAS DONE, NO RESISTANCE TO CARE WHILE CARE.
--- NOTE | 2019-02-03 05:30 | NUR ---
NURSE NOTES: TOLERATED NGT FEEDING, NO RESIDUE NOTED, NO PAIN OR DISTRESS NOTED AT THIS SHIFT.
[2019-02-03 05:33] LABS: BASOPHILS % (AUTO) 1.3 % (0.0-2.0); HEMATOCRIT 40.5 % (42.0-52.0); LYMPHOCYTES % (AUTO) 10.1 % (20.0-45.0); MEAN CORPUSCULAR VOLUME 95 FL (80-99); MONOCYTES % (AUTO) 6.7 % (1.0-10.0); NEUTROPHILS % (AUTO) 81.8 % (45.0-75.0); PLATELET COUNT 302 K/UL (150-450); RED BLOOD COUNT 4.27 M/UL (4.70-6.10); RED CELL DISTRIBUTION WIDTH 14.5 % (11.6-14.8); WHITE BLOOD COUNT 16.5 K/UL (4.8-10.8)
[2019-02-03] MEDS: NovoLOG Insulin Flexpen SUBQ SCH ×3 (05:50→17:19)
[2019-02-03 05:51] LABS: ALANINE AMINOTRANSFERASE 109 U/L (12-78); ALBUMIN/GLOBULIN RATIO 0.5 (1.0-2.7); ALKALINE PHOSPHATASE 124 U/L (46-116); ANION GAP 3 mmol/L (5-15); ASPARTATE AMINO TRANSFERASE 75 U/L (15-37); BILIRUBIN,TOTAL 0.3 MG/DL (0.2-1.0); BLOOD UREA NITROGEN 25 mg/dL (7-18); CALCIUM 7.5 MG/DL (8.5-10.1); CARBON DIOXIDE 35 MMOL/L (21-32); CHLORIDE 102 MMOL/L (98-107); CREATININE 1.3 MG/DL (0.55-1.30); POTASSIUM 3.6 MMOL/L (3.5-5.1); SODIUM 140 MMOL/L (136-145)
--- NOTE | 2019-02-03 06:42 | NUR ---
NURSE NOTES: PATIENT SLEEPING STATUS, VSS ON DOPAMINE 4MCG/KG/MIN, WILL CONTINUE PLAN OF CARE.
--- NOTE | 2019-02-03 07:10 | NUR ---
HAND-OFF: Report given to EUGENIA HUDSON.
--- NOTE | 2019-02-03 07:11 | NUR ---
NURSE NOTES: RECEIVED REPORT FROM EUGENIA OLIVAS. PATIENT OBSERVED LAYING IN BED, ALERT, FOLLOWING COMMANDS, WITH PERIODS OF CONFUSION. ON FIO2 30 % COOL AEROSOL MASK, O2 SATURATION 99%, RIGHT SIDE NGT INTACT AND PATENT. TUBE FEEDS CURRENTLY ON HOLD FOR VIDEO SWALLOW EVAL THAT IS SCHEDULED FOR TODAY. F/C INTACT AND PATENT DRAINING YELLOW URINE. RIGHT UPPER ARM PICC LINE, INTACT AND PATENT, RUNNING DOPAMINE 4MCG/KG/MIN. RECEIVED AND MAINTAINED ON 2 POINT SOFT RESTRAINTS FOR SAFETY D/T PT ATTEMPTING TO PULL AT MEDICALLY NECESSARY TUBING, ON P200 BED, BED LOCKED AND IN LOWEST POSITION, KEPT HOB 30 DEGREES AND BED ALARM ON, CALL LIGHT WITHIN REACH, WILL WILL RESUME PLAN OF CARE.
--- NOTE | 2019-02-03 08:07 | Infectious Diseases Prog Note ---
Assessment/Plan Assessment/Plan 68yo gentleman with PMH below presents with fever(100.1 is highest recorded in transfer packet) and worsened congestion from SNF. In the ED, pt was placed on oxygen then BiPAP but ultimately intubated. ID consulted for antimicrobial recommendation. Tmax 100.1 at assisted, SP Leukocytosis, hydrocortisone 01/25-02/02 Lactic acidosis, SP Shock, was on levophed, titrated off, but now on dopamine Likely MRSA PNA COPD? CHF? thick secretions per nurse flu swab negative 01/24 CXR: Extensive opacities within upper lobes demonstrated. In addition there is generalized interstitial densities throughout both lung craig. 01/25 CXR: Bilateral infiltrates appear fairly extensive but unchanged. TTE with EF 30-35% 01/25 sputum cx: MRSA 01/25 urine legionella ag: P 01/27 CXR: Extensive infiltrates bilaterally. Some degree of a superimposed interstitial edema has improved since the last exam. Endotracheal tube and NG tube remain in satisfactory in position. 01/28 CXR: Extensive bilateral infiltrates are again demonstrated without change. Tubes and lines are stable. 01/28 sputum cx: MRSA 01/30 CXR: 1. Overall similar patchy opacities in the lungs, most prominently in the right upper lung and right mid and lower lung. Probable small bilateral pleural effusions. 2. Endotracheal tube terminates in the region of the lower thoracic aorta above the cristina. Enteric tube courses past the diaphragm and out of the [id number], but the sidehole is seen near the GE junction. 02/02 CXR: Interim removal of previously demonstrated nasogastric tube and endotracheal tube. Right arm PICC remains. Bilateral fairly extensive interstitial opacities persist, unchanged. There is a small left pleural effusion again demonstrated Possible UTI? new mcmahon placed in ED 01/25 UA 15-20 WBC 01/25 Ucx: NG Renal US: Nonobstructive stones in the left kidney demonstrated. Bilateral renal cysts. Limited evaluation due to body habitus. r/o bacteremia 01/25 BCx: ngtd 01/31 bcx: ngtd No diarrhea HIV test negative MRSA screen positive RLE skin graft b/l LE heel pressure ulcers and sacral ulcer Tobacco abuse COPD HTN Kidney cancer OA CKD Anemia Schizophrenia PVD CHF Plan: Linezolid #4/10 02/01 SP Azithromycin #5/5 for atypicals 01/31 Ertapenem #8 01/31 DC Amikacin and vancomycin #6 SP cefepime #1 SP flagyl #1 SP vancomycin #1 f/u repeat bcx aspiration precaution, elevate HOB, oral care, frequent suction pulmonary toilet, chest PT DVT PPX discussed with RN Thank you for this consult. [facility] will continue to follow the patient with you. Subjective Allergies: Coded Allergies: No Known Allergies (Unverified , 01/24/19) Subjective Afebrile. WBC slowly downtrending. Still on dopamine @4. Denies SOB. lots of upper airway secretion stable 8L Objective Vital Signs Last 24 Hour Vital Signs Date Time Temp Pulse Resp B/P (MAP) Pulse Ox O2 Delivery O2 Flow Rate FiO2 02/03/19 07:09 77 21 81/40 (54) 95 02/03/19 07:02 98 Cool Aerosol 8.0 30 02/03/19 07:00 76 19 71/43 (52) 98 02/03/19 07:00 71/43 02/03/19 06:31 62 19 90/50 (63) 98 02/03/19 06:30 63 19 88/48 (61) 98 02/03/19 06:05 58 4 90/43 (59) 97 02/03/19 06:00 89/45 02/03/19 06:00 64 16 89/45 (60) 100 02/03/19 05:30 64 9 91/48 (62) 91 02/03/19 05:00 115/56 02/03/19 05:00 70 17 115/56 (75) 100 02/03/19 04:30 60 7 131/60 (83) 98 02/03/19 04:06 89 18 88/58 (68) 98 02/03/19 04:00 Simple Mask 8.0 02/03/19 04:00 56/44 02/03/19 04:00 97.7 75 19 56/44 (48) 89 02/03/19 03:30 60 02/03/19 03:30 59 22 93/51 (65) 99 02/03/19 03:00 66 0 119/55 (76) 99 02/03/19 03:00 119/55 02/03/19 02:30 60 17 114/57 (76) 99 02/03/19 02:00 63 20 125/65 (85) 96 02/03/19 02:00 125/65 02/03/19 01:30 63 12 123/59 (80) 96 02/03/19 01:00 67 19 127/76 (93) 99 02/03/19 01:00 127/76 02/03/19 00:41 99 Cool Aerosol 8.0 30 02/03/19 00:30 60 15 132/55 (80) 99 02/03/19 00:00 Simple Mask 8.0 02/03/19 00:00 147/66 02/03/19 00:00 97.4 60 17 147/66 (93) 97 02/02/19 23:30 64 15 148/66 (93) 98 02/02/19 23:17 61 02/02/19 23:00 150/65 02/02/19 23:00 65 16 150/65 (93) 97 02/02/19 22:30 50 18 165/71 (102) 99 02/02/19 22:27 50 12 154/59 (90) 98 02/02/19 22:00 60 19 81/50 (60) 92 02/02/19 22:00 81/50 02/02/19 21:30 92 18 177/85 (115) 98 02/02/19 21:00 63 14 127/63 (84) 98 02/02/19 21:00 127/63 02/02/19 20:30 59 13 136/61 (86) 100 02/02/19 20:00 148/73 02/02/19 20:00 97.7 64 15 148/73 (98) 99 02/02/19 20:00 Simple Mask 8.0 02/02/19 19:35 84/56 02/02/19 19:30 86 17 84/56 (65) 96 02/02/19 19:01 101 02/02/19 19:01 96 Cool Aerosol 8.0 30 02/02/19 19:00 82 17 130/77 (94) 97 02/02/19 18:30 62 11 136/53 (80) 98 02/02/19 18:00 62 13 137/65 (89) 93 02/02/19 17:30 70 14 105/85 (92) 95 02/02/19 17:00 69 16 109/53 (71) 100 02/02/19 16:30 73 18 98/47 (64) 98 02/02/19 16:00 Venturi Mask 10.0 02/02/19 16:00 58 02/02/19 16:00 97.7 76 17 116/55 (75) 94 02/02/19 15:30 60 13 144/43 (76) 95 02/02/19 15:00 57 12 138/40 (72) 100 02/02/19 14:37 98 Cool Aerosol 8.0 30 02/02/19 14:30 54 18 107/43 (64) 98 02/02/19 14:00 55 17 123/49 (73) 99 02/02/19 13:30 59 12 108/42 (64) 98 02/02/19 13:00 60 15 110/39 (62) 98 02/02/19 12:30 66 16 155/65 (95) 97 02/02/19 12:00 Venturi Mask 10.0 Venturi Mask 02/02/19 12:00 97.3 66 15 155/74 (101) 97 02/02/19 12:00 78 02/02/19 11:30 76 15 159/78 (105) 97 02/02/19 11:00 64 15 154/73 (100) 99 02/02/19 10:30 66 15 110/59 (76) 98 02/02/19 10:00 55 15 108/54 (72) 98 02/02/19 09:30 55 16 103/53 (70) 99 02/02/19 09:00 55 15 90/52 (65) 98 02/02/19 08:30 56 15 113/52 (72) 97 Height (Feet): 5 Height (Inches): 6.00 Weight (Pounds): 143 Objective Gen: NAD HEENT: anicteric sclera. CV: RRR. Resp: coarse. equal chest rise. Abd: soft. normoactive Bs+ Neuro: awake. appropriate Skin: RLE skin graft Microbiology Date/Time Source Procedure Growth Status 01/31/19 10:10 Blood Blood Culture - Preliminary NO GROWTH AFTER 48 HOURS Resulted 01/31/19 09:55 Blood Blood Culture - Preliminary NO GROWTH AFTER 48 HOURS Resulted Laboratory Tests Test 02/03/19 03:25 White Blood Count 16.5 K/UL (4.8-10.8) H Red Blood Count 4.27 M/UL (4.70-6.10) L Hemoglobin 13.0 G/DL (14.2-18.0) L Hematocrit 40.5 % (42.0-52.0) L Mean Corpuscular Volume 95 FL (80-99) Mean Corpuscular Hemoglobin 30.5 PG (27.0-31.0) Mean Corpuscular Hemoglobin Concent 32.1 G/DL (32.0-36.0) Red Cell Distribution Width 14.5 % (11.6-14.8) Platelet Count 302 K/UL (150-450) Mean Platelet Volume 4.5 FL (6.5-10.1) L Neutrophils (%) (Auto) 81.8 % (45.0-75.0) H Lymphocytes (%) (Auto) 10.1 % (20.0-45.0) L Monocytes (%) (Auto) 6.7 % (1.0-10.0) Eosinophils (%) (Auto) 0.0 % (0.0-3.0) Basophils (%) (Auto) 1.3 % (0.0-2.0) Sodium Level 140 MMOL/L (136-145) Potassium Level 3.6 MMOL/L (3.5-5.1) Chloride Level 102 MMOL/L (98-107) Carbon Dioxide Level 35 MMOL/L (21-32) H Anion Gap 3 mmol/L (5-15) L Blood Urea Nitrogen 25 mg/dL (7-18) H Creatinine 1.3 MG/DL (0.55-1.30) Estimat Glomerular Filtration Rate 54.9 mL/min (>60) Glucose Level 130 MG/DL (74-106) H Calcium Level 7.5 MG/DL (8.5-10.1) L Total Bilirubin 0.3 MG/DL (0.2-1.0) Aspartate Amino Transf (AST/SGOT) 75 U/L (15-37) H Alanine Aminotransferase (ALT/SGPT) 109 U/L (12-78) H Alkaline Phosphatase 124 U/L (46-116) H Pro-B-Type Natriuretic Peptide 55562 pg/mL (0-125) H Total Protein 6.0 G/DL (6.4-8.2) L Albumin 2.0 G/DL (3.4-5.0) L Globulin 4.0 g/dL Albumin/Globulin Ratio 0.5 (1.0-2.7) L Current Medications Medications (Trade) Dose Ordered Sig/Ricardo Route PRN Reason Start Time Stop Time Status Last Admin Dose Admin Acetaminophen (Tylenol) 650 mg Q4H PRN ORAL fever 01/24/19 20:00 02/23/19 19:59 Albuterol/ Ipratropium (Albuterol/ Ipratropium) 3 ml Q4HRT PRN HHN sob 01/30/19 08:00 02/04/19 07:59 02/02/19 05:45 Ascorbic Acid (Vitamin C) 250 mg TWICE A DAY ORAL 01/27/19 18:00 02/26/19 17:59 02/02/19 20:36 Chlorhexidine Gluconate (Roseanna-Hex 2%) 1 applic DAILY@1999 TOPIC 01/25/19 20:00 02/24/19 19:59 02/02/19 19:50 Dextrose (Dextrose 50%) 25 ml Q30M PRN IV Hypoglycemia 01/25/19 19:00 02/24/19 18:59 Dextrose (Dextrose 50%) 50 ml Q30M PRN IV Hypoglycemia 01/25/19 19:00 02/24/19 18:59 Dopamine HCl/ Dextrose 250 ml @ 0 mls/hr Q24H IV 01/28/19 10:45 02/27/19 10:44 02/02/19 19:35 Heparin Sodium (Porcine) (Heparin 5000 units/ml) 5,000 units EVERY 12 HOURS SUBQ 01/24/19 21:00 02/23/19 20:59 02/02/19 20:38 Insulin Aspart (NovoLOG) EVERY 6 HOURS SUBQ 01/26/19 00:00 02/25/19 00:00 02/03/19 05:50 Linezolid 300 ml @ 300 mls/hr Q12HR IVPB 01/31/19 09:00 02/07/19 08:59 02/02/19 20:36 Lorazepam (Ativan 2mg/ml 1ml) 2 mg Q2H PRN IV For Anxiety 01/30/19 08:00 02/06/19 07:59 Midodrine (Pro-Amatine) 10 mg THREE TIMES A DAY NG 01/30/19 13:00 03/01/19 12:59 02/02/19 20:36 Pantoprazole (Protonix) 40 mg DAILY IVP 01/25/19 09:00 02/24/19 08:59 02/02/19 10:01 Polyethylene Glycol (Miralax) 17 gm DAILYPRN PRN ORAL Constipation 01/24/19 20:00 02/23/19 19:59 02/01/19 05:47 Potassium Chloride (K-Dur) 40 meq TWICE A DAY NG 01/27/19 11:45 02/26/19 11:44 02/02/19 20:37 Pili Lenz MD Feb 03, 2019 08:07
--- NOTE | 2019-02-03 08:13 | Cardiology Report ---
APPROVED REPORT EXAM: Two-dimensional and M-mode echocardiogram with Doppler and color Doppler. INDICATION LV FUNCTION M-Mode DIMENSIONS IVSd0.9 (0.7-1.1cm)Left Atrium (MM)4.0 (1.6-4.0cm) LVDd3.1 (3.5-5.6cm)Aortic Root2.5 (2.0-3.7cm) PWd1.0 (0.7-1.1cm)Aortic Cusp Exc.1.7 (1.5-2.0cm) IVSs1.4 cm LVDs2.6 (2.5-4.0cm) PWs1.3 cm Technically difficult study due to poor acoustical windows. Normal left ventricular chamber size. Global left ventricular hypokinesia except the basal segemnts, apical ballooning syndrome or Takotsubo cardiomyopathy cannot be excluded. Left ventricular ejection fraction estimated to be 30-35%. Study quality precludes accurate assessment of regional wall motion. All other cardiac chamber sizes are within normal limits. Focal aortic valve sclerosis with adequate cusp excursion. Thickened mitral valve leaflets with normal excursion. Mitral annulus and aortic root calcification. Pulmonic valve not well visualized. Normal tricuspid valve structure. IVC at normal size without physiologic collapse. A color flow and spectral Doppler study was performed and revealed: Trace mitral regurgitation. Mitral inflow velocities indicates possible pseudo normalization pattern implying moderately elevated left atrial pressure (Grade II ). Mild tricuspid regurgitation. Tricuspid systolic velocities suggests peak right ventricular systolic pressure of 19 mmHg.
[2019-02-03] MEDS: Ascorbic Acid 500mg tab ORAL SCH ×2 (08:25→17:05)
[2019-02-03] MEDS: Pantoprazole Inj IVP SCH (08:25)
[2019-02-03] MEDS: Midodrine 10mg tab NG SCH ×3 (08:25→17:05)
[2019-02-03] MEDS: Heparin 5000 units/ml inj SUBQ SCH ×2 (08:27→20:37)
[2019-02-03 08:35] LABS: PHOSPHORUS 3.4 MG/DL (2.5-4.9)
--- NOTE | 2019-02-03 08:39 | Cardiology Report ---
APPROVED REPORT EKG Measurement Heart [id number] Sinus tachycardia Rightward axis Borderline ECG
--- NOTE | 2019-02-03 10:00 | NUR ---
NURSE NOTES: NGT completely clogged, despite several attempts to unclog it. Tube was removed and medical writer will reinsert after video swallow eval later today.
--- NOTE | 2019-02-03 10:23 | Pulmonolgy Critical Care Note ---
Critical Care - Asmt/Plan Problems: (1) Acute respiratory failure (2) Septic shock (3) Systolic heart failure (4) Chronic kidney disease (5) Malignant neoplasm of right kidney (6) COPD (chronic obstructive pulmonary disease) (7) Schizophrenia Respiratory: monitor respiratory rate, adjust FIO2, CXR Cardiac: continue to monitor HR/BP Renal: F/U I&O, check electrolytes Infectious Disease: check cultures Gastrointestinal: continue feedings/current rate Endocrine: monitor blood sugar, check TSH Hematologic: monitor H/H, transfuse if hgb<8.5 Neurologic: PRN Ativan, keep patient comfortable Affect: PRN ativan Prophylaxis: Protonix, Heparin Notes 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, 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 Discussed with: nurses, consultants, case foldermanager credit - Objective Last 24 Hour Vital Signs Date Time Temp Pulse Resp B/P (MAP) Pulse Ox O2 Delivery O2 Flow Rate FiO2 02/03/19 10:00 108/64 02/03/19 10:00 70 19 108/64 (79) 99 02/03/19 09:30 80 24 145/70 (95) 100 02/03/19 09:00 145/70 02/03/19 09:00 58 23 108/79 (89) 100 02/03/19 08:00 Simple Mask 8.0 02/03/19 08:00 98.7 67 21 83/44 (57) 93 02/03/19 08:00 83/44 02/03/19 08:00 64 02/03/19 07:09 77 21 81/40 (54) 95 02/03/19 07:02 98 Cool Aerosol 8.0 30 02/03/19 07:00 76 19 71/43 (52) 98 02/03/19 07:00 71/43 02/03/19 06:31 62 19 90/50 (63) 98 02/03/19 06:30 63 19 88/48 (61) 98 02/03/19 06:05 58 4 90/43 (59) 97 02/03/19 06:00 89/45 02/03/19 06:00 64 16 89/45 (60) 100 02/03/19 05:30 64 9 91/48 (62) 91 02/03/19 05:00 115/56 02/03/19 05:00 70 17 115/56 (75) 100 02/03/19 04:30 60 7 131/60 (83) 98 02/03/19 04:06 89 18 88/58 (68) 98 02/03/19 04:00 Simple Mask 8.0 02/03/19 04:00 56/44 02/03/19 04:00 97.7 75 19 56/44 (48) 89 02/03/19 03:30 60 02/03/19 03:30 59 22 93/51 (65) 99 02/03/19 03:00 66 0 119/55 (76) 99 02/03/19 03:00 119/55 02/03/19 02:30 60 17 114/57 (76) 99 02/03/19 02:00 63 20 125/65 (85) 96 02/03/19 02:00 125/65 02/03/19 01:30 63 12 123/59 (80) 96 02/03/19 01:00 67 19 127/76 (93) 99 02/03/19 01:00 127/76 02/03/19 00:41 99 Cool Aerosol 8.0 30 02/03/19 00:30 60 15 132/55 (80) 99 02/03/19 00:00 Simple Mask 8.0 02/03/19 00:00 147/66 02/03/19 00:00 97.4 60 17 147/66 (93) 97 02/02/19 23:30 64 15 148/66 (93) 98 02/02/19 23:17 61 02/02/19 23:00 150/65 02/02/19 23:00 65 16 150/65 (93) 97 02/02/19 22:30 50 18 165/71 (102) 99 02/02/19 22:27 50 12 154/59 (90) 98 02/02/19 22:00 60 19 81/50 (60) 92 02/02/19 22:00 81/50 02/02/19 21:30 92 18 177/85 (115) 98 02/02/19 21:00 63 14 127/63 (84) 98 02/02/19 21:00 127/63 02/02/19 20:30 59 13 136/61 (86) 100 02/02/19 20:00 148/73 02/02/19 20:00 97.7 64 15 148/73 (98) 99 02/02/19 20:00 Simple Mask 8.0 02/02/19 19:35 84/56 02/02/19 19:30 86 17 84/56 (65) 96 02/02/19 19:01 101 02/02/19 19:01 96 Cool Aerosol 8.0 30 02/02/19 19:00 82 17 130/77 (94) 97 02/02/19 18:30 62 11 136/53 (80) 98 02/02/19 18:00 62 13 137/65 (89) 93 02/02/19 17:30 70 14 105/85 (92) 95 02/02/19 17:00 69 16 109/53 (71) 100 02/02/19 16:30 73 18 98/47 (64) 98 02/02/19 16:00 Venturi Mask 10.0 02/02/19 16:00 58 02/02/19 16:00 97.7 76 17 116/55 (75) 94 02/02/19 15:30 60 13 144/43 (76) 95 02/02/19 15:00 57 12 138/40 (72) 100 02/02/19 14:37 98 Cool Aerosol 8.0 30 02/02/19 14:30 54 18 107/43 (64) 98 02/02/19 14:00 55 17 123/49 (73) 99 02/02/19 13:30 59 12 108/42 (64) 98 02/02/19 13:00 60 15 110/39 (62) 98 02/02/19 12:30 66 16 155/65 (95) 97 02/02/19 12:00 Venturi Mask 10.0 Venturi Mask 02/02/19 12:00 97.3 66 15 155/74 (101) 97 02/02/19 12:00 78 02/02/19 11:30 76 15 159/78 (105) 97 02/02/19 11:00 64 15 154/73 (100) 99 02/02/19 10:30 66 15 110/59 (76) 98 Status: awake Condition: critical, improving HEENT: atraumatic Neck: full ROM Lungs: chest wall tender Heart: HR/BP stable Abdomen: soft, non-tender Extremities: no C/C/E Decubiti: location Accucheck: 111 Critical Care - Subjective ROS Limited/Unobtainable: No ICU Day: 10 Interval Events: tolerating extubation, lots of secretions. FI02: 30 Vent Support Breath Rate: 20 Vent Support Mode: CPAP Vent Tidal Volume: 500 Sputum Amount: None PEEP: 5.0 PIP: 13 I&O: Intake and Output 02/02/19 02/03/19 19:00 07:00 Intake Total 478.592 ml 713.234 ml Output Total 1090 ml 1740 ml Balance -611.408 ml -1026.766 ml IV Total 428.592 ml 423.234 ml Tube Feeding 210 ml Other 50 ml 80 ml Output Urine Total 1090 ml 1740 ml # Bowel Movements 2 CXR: no change ET-Tube: 7.5 ET Position: 26 Labs: Laboratory Tests Test 02/03/19 03:25 White Blood Count 16.5 K/UL (4.8-10.8) H Red Blood Count 4.27 M/UL (4.70-6.10) L Hemoglobin 13.0 G/DL (14.2-18.0) L Hematocrit 40.5 % (42.0-52.0) L Mean Corpuscular Volume 95 FL (80-99) Mean Corpuscular Hemoglobin 30.5 PG (27.0-31.0) Mean Corpuscular Hemoglobin Concent 32.1 G/DL (32.0-36.0) Red Cell Distribution Width 14.5 % (11.6-14.8) Platelet Count 302 K/UL (150-450) Mean Platelet Volume 4.5 FL (6.5-10.1) L Neutrophils (%) (Auto) 81.8 % (45.0-75.0) H Lymphocytes (%) (Auto) 10.1 % (20.0-45.0) L Monocytes (%) (Auto) 6.7 % (1.0-10.0) Eosinophils (%) (Auto) 0.0 % (0.0-3.0) Basophils (%) (Auto) 1.3 % (0.0-2.0) Sodium Level 140 MMOL/L (136-145) Potassium Level 3.6 MMOL/L (3.5-5.1) Chloride Level 102 MMOL/L (98-107) Carbon Dioxide Level 35 MMOL/L (21-32) H Anion Gap 3 mmol/L (5-15) L Blood Urea Nitrogen 25 mg/dL (7-18) H Creatinine 1.3 MG/DL (0.55-1.30) Estimat Glomerular Filtration Rate 54.9 mL/min (>60) Glucose Level 130 MG/DL (74-106) H Calcium Level 7.5 MG/DL (8.5-10.1) L Phosphorus Level 3.4 MG/DL (2.5-4.9) Magnesium Level 2.1 MG/DL (1.8-2.4) Total Bilirubin 0.3 MG/DL (0.2-1.0) Aspartate Amino Transf (AST/SGOT) 75 U/L (15-37) H Alanine Aminotransferase (ALT/SGPT) 109 U/L (12-78) H Alkaline Phosphatase 124 U/L (46-116) H Pro-B-Type Natriuretic Peptide 54461 pg/mL (0-125) H Total Protein 6.0 G/DL (6.4-8.2) L Albumin 2.0 G/DL (3.4-5.0) L Globulin 4.0 g/dL Albumin/Globulin Ratio 0.5 (1.0-2.7) L Ron Anthony MD Feb 03, 2019 10:23
--- NOTE | 2019-02-03 10:36 | General Progress Note ---
Assessment/Plan Problem List: (1) DM (diabetes mellitus) ICD Codes: E11.9 - Type 2 diabetes mellitus without complications SNOMED: 55604907 (2) cardiomyopathy with EF of 35% (3) Encounter for PEG (percutaneous endoscopic gastrostomy) ICD Codes: Z43.1 - Encounter for attention to gastrostomy SNOMED: 600397282, 963438850 (4) Dysphagia ICD Codes: R13.10 - Dysphagia, unspecified SNOMED: 97376201, 839377513 (5) Bradyarrhythmia ICD Codes: I49.8 - Other specified cardiac arrhythmias SNOMED: 838061934 (6) Systolic heart failure ICD Codes: I50.20 - Unspecified systolic (congestive) heart failure SNOMED: 697635376 (7) Schizophrenia ICD Codes: F20.9 - Schizophrenia, unspecified SNOMED: 84539367 (8) COPD (chronic obstructive pulmonary disease) ICD Codes: J44.9 - Chronic obstructive pulmonary disease, unspecified SNOMED: 50928311 Qualifiers: Qualified Codes: J44.9 - Chronic obstructive pulmonary disease, unspecified Status: unchanged Assessment/Plan: NGT clogged and removed pending VAS consider PEG if fails and family agrees abd us repeat LFTS in am Subjective ROS Limited/Unobtainable: No Allergies: Coded Allergies: No Known Allergies (Unverified , 01/24/19) Objective Last 24 Hour Vital Signs Date Time Temp Pulse Resp B/P (MAP) Pulse Ox O2 Delivery O2 Flow Rate FiO2 02/03/19 10:00 108/64 02/03/19 10:00 70 19 108/64 (79) 99 02/03/19 09:30 80 24 145/70 (95) 100 02/03/19 09:00 145/70 02/03/19 09:00 58 23 108/79 (89) 100 02/03/19 08:00 Simple Mask 8.0 02/03/19 08:00 98.7 67 21 83/44 (57) 93 02/03/19 08:00 83/44 02/03/19 08:00 64 02/03/19 07:09 77 21 81/40 (54) 95 02/03/19 07:02 98 Cool Aerosol 8.0 30 02/03/19 07:00 76 19 71/43 (52) 98 11/20/19 07:00 71/43 02/03/19 06:31 62 19 90/50 (63) 98 02/03/19 06:30 63 19 88/48 (61) 98 02/03/19 06:05 58 4 90/43 (59) 97 02/03/19 06:00 89/45 02/03/19 06:00 64 16 89/45 (60) 100 02/03/19 05:30 64 9 91/48 (62) 91 02/03/19 05:00 115/56 02/03/19 05:00 70 17 115/56 (75) 100 02/03/19 04:30 60 7 131/60 (83) 98 02/03/19 04:06 89 18 88/58 (68) 98 02/03/19 04:00 Simple Mask 8.0 02/03/19 04:00 56/44 02/03/19 04:00 97.7 75 19 56/44 (48) 89 02/03/19 03:30 60 02/03/19 03:30 59 22 93/51 (65) 99 02/03/19 03:00 66 0 119/55 (76) 99 02/03/19 03:00 119/55 02/03/19 02:30 60 17 114/57 (76) 99 02/03/19 02:00 63 20 125/65 (85) 96 02/03/19 02:00 125/65 02/03/19 01:30 63 12 123/59 (80) 96 02/03/19 01:00 67 19 127/76 (93) 99 02/03/19 01:00 127/76 02/03/19 00:41 99 Cool Aerosol 8.0 30 02/03/19 00:30 60 15 132/55 (80) 99 02/03/19 00:00 Simple Mask 8.0 02/03/19 00:00 147/66 02/03/19 00:00 97.4 60 17 147/66 (93) 97 02/02/19 23:30 64 15 148/66 (93) 98 02/02/19 23:17 61 02/02/19 23:00 150/65 02/02/19 23:00 65 16 150/65 (93) 97 02/02/19 22:30 50 18 165/71 (102) 99 02/02/19 22:27 50 12 154/59 (90) 98 02/02/19 22:00 60 19 81/50 (60) 92 02/02/19 22:00 81/50 02/02/19 21:30 92 18 177/85 (115) 98 02/02/19 21:00 63 14 127/63 (84) 98 02/02/19 21:00 127/63 02/02/19 20:30 59 13 136/61 (86) 100 02/02/19 20:00 148/73 02/02/19 20:00 97.7 64 15 148/73 (98) 99 02/02/19 20:00 Simple Mask 8.0 02/02/19 19:35 84/56 02/02/19 19:30 86 17 84/56 (65) 96 02/02/19 19:01 101 02/02/19 19:01 96 Cool Aerosol 8.0 30 02/02/19 19:00 82 17 130/77 (94) 97 02/02/19 18:30 62 11 136/53 (80) 98 02/02/19 18:00 62 13 137/65 (89) 93 02/02/19 17:30 70 14 105/85 (92) 95 02/02/19 17:00 69 16 109/53 (71) 100 02/02/19 16:30 73 18 98/47 (64) 98 02/02/19 16:00 Venturi Mask 10.0 02/02/19 16:00 58 02/02/19 16:00 97.7 76 17 116/55 (75) 94 02/02/19 15:30 60 13 144/43 (76) 95 02/02/19 15:00 57 12 138/40 (72) 100 02/02/19 14:37 98 Cool Aerosol 8.0 30 02/02/19 14:30 54 18 107/43 (64) 98 02/02/19 14:00 55 17 123/49 (73) 99 02/02/19 13:30 59 12 108/42 (64) 98 02/02/19 13:00 60 15 110/39 (62) 98 02/02/19 12:30 66 16 155/65 (95) 97 02/02/19 12:00 Venturi Mask 10.0 Venturi Mask 02/02/19 12:00 97.3 66 15 155/74 (101) 97 02/02/19 12:00 78 02/02/19 11:30 76 15 159/78 (105) 97 02/02/19 11:00 64 15 154/73 (100) 99 Intake and Output 02/02/19 02/03/19 19:00 07:00 Intake Total 478.592 ml 713.234 ml Output Total 1090 ml 1740 ml Balance -611.408 ml -1026.766 ml IV Total 428.592 ml 423.234 ml Tube Feeding 210 ml Other 50 ml 80 ml Output Urine Total 1090 ml 1740 ml # Bowel Movements 2 Laboratory Tests 02/03/19 03:25: White Blood Count 16.5H, Red Blood Count 4.27L, Hemoglobin 13.0L, Hematocrit 40.5L, Mean Corpuscular Volume 95, Mean Corpuscular Hemoglobin 30.5, Mean Corpuscular Hemoglobin Concent 32.1, Red Cell Distribution Width 14.5, Platelet Count 302, Mean Platelet Volume 4.5L, Neutrophils (%) (Auto) 81.8H, Lymphocytes (%) (Auto) 10.1L, Monocytes (%) (Auto) 6.7, Eosinophils (%) (Auto) 0.0, Basophils (%) (Auto) 1.3, Sodium Level 140, Potassium Level 3.6, Chloride Level 102, Carbon Dioxide Level 35H, Anion Gap 3L, Blood Urea Nitrogen 25H, Creatinine 1.3, Estimat Glomerular Filtration Rate 54.9, Glucose Level 130H, Calcium Level 7.5L, Phosphorus Level 3.4, Magnesium Level 2.1, Total Bilirubin 0.3, Aspartate Amino Transf (AST/SGOT) 75H, Alanine Aminotransferase (ALT/SGPT) 109H, Alkaline Phosphatase 124H, Pro-B-Type Natriuretic Peptide 66225I, Total Protein 6.0L, Albumin 2.0L, Globulin 4.0, Albumin/Globulin Ratio 0.5L Height (Feet): 5 Height (Inches): 6.00 Weight (Pounds): 143 General Appearance: confused EENT: normal ENT inspection Neck: supple Cardiovascular: tachycardia Respiratory/Chest: accessory muscle use Abdomen: normal bowel sounds, non tender, soft Extremities: non-tender Leonel Valderrama MD Feb 03, 2019 10:36
--- NOTE | 2019-02-03 10:40 | Nephrology Progress Note ---
Assessment/Plan Problem List: (1) Renal failure (ARF), acute on chronic (2) Acute respiratory failure (3) Septic shock (4) Bradyarrhythmia Assessment Renal failure- Likely acute on Chronic- Cr lower Acute respiratory failure- intubated on Vent Septic Shock- On pressors COPD PVD Schizophrenia Plan Now ( 02/02) extubated- tolerating well pulmonary support stop IV fluid renal dose dopamin for low HR K supplement down on hydration One dose IV Lasix mag and Phos and K supplement as needed 2D Echo Low Ej Fx - Global Hypokinesis Avoid nephrotoxics afterload reduction monitor renal parameters urine studies ADRIAN IMPRESSION: Nonobstructive stones in the left kidney demonstrated. Bilateral renal cysts. Subjective ROS Limited/Unobtainable: No Constitutional: Reports: malaise, weakness Objective Objective Last 24 Hour Vital Signs Date Time Temp Pulse Resp B/P (MAP) Pulse Ox O2 Delivery O2 Flow Rate FiO2 02/03/19 10:00 108/64 02/03/19 10:00 70 19 108/64 (79) 99 02/03/19 09:30 80 24 145/70 (95) 100 02/03/19 09:00 145/70 02/03/19 09:00 58 23 108/79 (89) 100 02/03/19 08:00 Simple Mask 8.0 02/03/19 08:00 98.7 67 21 83/44 (57) 93 02/03/19 08:00 83/44 02/03/19 08:00 64 02/03/19 07:09 77 21 81/40 (54) 95 02/03/19 07:02 98 Cool Aerosol 8.0 30 02/03/19 07:00 76 19 71/43 (52) 98 02/03/19 07:00 71/43 02/03/19 06:31 62 19 90/50 (63) 98 02/03/19 06:30 63 19 88/48 (61) 98 02/03/19 06:05 58 4 90/43 (59) 97 02/03/19 06:00 89/45 02/03/19 06:00 64 16 89/45 (60) 100 02/03/19 05:30 64 9 91/48 (62) 91 02/03/19 05:00 115/56 02/03/19 05:00 70 17 115/56 (75) 100 02/03/19 04:30 60 7 131/60 (83) 98 02/03/19 04:06 89 18 88/58 (68) 98 02/03/19 04:00 Simple Mask 8.0 02/03/19 04:00 56/44 02/03/19 04:00 97.7 75 19 56/44 (48) 89 02/03/19 03:30 60 02/03/19 03:30 59 22 93/51 (65) 99 02/03/19 03:00 66 0 119/55 (76) 99 02/03/19 03:00 119/55 02/03/19 02:30 60 17 114/57 (76) 99 02/03/19 02:00 63 20 125/65 (85) 96 02/03/19 02:00 125/65 02/03/19 01:30 63 12 123/59 (80) 96 02/03/19 01:00 67 19 127/76 (93) 99 02/03/19 01:00 127/76 02/03/19 00:41 99 Cool Aerosol 8.0 30 02/03/19 00:30 60 15 132/55 (80) 99 02/03/19 00:00 Simple Mask 8.0 02/03/19 00:00 147/66 02/03/19 00:00 97.4 60 17 147/66 (93) 97 02/02/19 23:30 64 15 148/66 (93) 98 02/02/19 23:17 61 02/02/19 23:00 150/65 02/02/19 23:00 65 16 150/65 (93) 97 02/02/19 22:30 50 18 165/71 (102) 99 02/02/19 22:27 50 12 154/59 (90) 98 02/02/19 22:00 60 19 81/50 (60) 92 02/02/19 22:00 81/50 02/02/19 21:30 92 18 177/85 (115) 98 02/02/19 21:00 63 14 127/63 (84) 98 02/02/19 21:00 127/63 02/02/19 20:30 59 13 136/61 (86) 100 02/02/19 20:00 148/73 02/02/19 20:00 97.7 64 15 148/73 (98) 99 02/02/19 20:00 Simple Mask 8.0 02/02/19 19:35 84/56 02/02/19 19:30 86 17 84/56 (65) 96 02/02/19 19:01 101 02/02/19 19:01 96 Cool Aerosol 8.0 30 02/02/19 19:00 82 17 130/77 (94) 97 02/02/19 18:30 62 11 136/53 (80) 98 02/02/19 18:00 62 13 137/65 (89) 93 02/02/19 17:30 70 14 105/85 (92) 95 02/02/19 17:00 69 16 109/53 (71) 100 02/02/19 16:30 73 18 98/47 (64) 98 02/02/19 16:00 Venturi Mask 10.0 02/02/19 16:00 58 02/02/19 16:00 97.7 76 17 116/55 (75) 94 02/02/19 15:30 60 13 144/43 (76) 95 02/02/19 15:00 57 12 138/40 (72) 100 02/02/19 14:37 98 Cool Aerosol 8.0 30 02/02/19 14:30 54 18 107/43 (64) 98 02/02/19 14:00 55 17 123/49 (73) 99 02/02/19 13:30 59 12 108/42 (64) 98 02/02/19 13:00 60 15 110/39 (62) 98 02/02/19 12:30 66 16 155/65 (95) 97 02/02/19 12:00 Venturi Mask 10.0 Venturi Mask 02/02/19 12:00 97.3 66 15 155/74 (101) 97 02/02/19 12:00 78 02/02/19 11:30 76 15 159/78 (105) 97 02/02/19 11:00 64 15 154/73 (100) 99 Intake and Output 02/02/19 02/03/19 19:00 07:00 Intake Total 478.592 ml 713.234 ml Output Total 1090 ml 1740 ml Balance -611.408 ml -1026.766 ml IV Total 428.592 ml 423.234 ml Tube Feeding 210 ml Other 50 ml 80 ml Output Urine Total 1090 ml 1740 ml # Bowel Movements 2 Laboratory Tests 02/03/19 03:25: White Blood Count 16.5H, Red Blood Count 4.27L, Hemoglobin 13.0L, Hematocrit 40.5L, Mean Corpuscular Volume 95, Mean Corpuscular Hemoglobin 30.5, Mean Corpuscular Hemoglobin Concent 32.1, Red Cell Distribution Width 14.5, Platelet Count 302, Mean Platelet Volume 4.5L, Neutrophils (%) (Auto) 81.8H, Lymphocytes (%) (Auto) 10.1L, Monocytes (%) (Auto) 6.7, Eosinophils (%) (Auto) 0.0, Basophils (%) (Auto) 1.3, Sodium Level 140, Potassium Level 3.6, Chloride Level 102, Carbon Dioxide Level 35H, Anion Gap 3L, Blood Urea Nitrogen 25H, Creatinine 1.3, Estimat Glomerular Filtration Rate 54.9, Glucose Level 130H, Calcium Level 7.5L, Phosphorus Level 3.4, Magnesium Level 2.1, Total Bilirubin 0.3, Aspartate Amino Transf (AST/SGOT) 75H, Alanine Aminotransferase (ALT/SGPT) 109H, Alkaline Phosphatase 124H, Pro-B-Type Natriuretic Peptide 94010Z, Total Protein 6.0L, Albumin 2.0L, Globulin 4.0, Albumin/Globulin Ratio 0.5L Height (Feet): 5 Height (Inches): 6.00 Weight (Pounds): 143 General Appearance: no apparent distress Cardiovascular: normal rate Respiratory/Chest: decreased breath sounds Abdomen: soft, distended Bienveniod Gonzalez MD Feb 03, 2019 10:40
[2019-02-03] MEDS: DOPamine 400mg/250ml 250 ML IV SCH (11:37)
--- NOTE | 2019-02-03 11:51 | NUR ---
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 98.7 HR 58 RR 21 B/P 83/44 WBC 16.5 BUN 25 AST 75 ALT 109 ALK PHOS 124 BNP [id number] IS: ZYVOX IV DOPAMINE GTT PROTONIX IV HEPARIN SUBC ICU STATUS
--- NOTE | 2019-02-03 12:00 | NUR ---
NURSE NOTES: Oral care performed. Pt remains on restraints for safety, removed and reapplied at this time. Pulses palpable, no swelling noted. Will continue to monitor.
--- NOTE | 2019-02-03 14:00 | NUR ---
NURSE NOTES: Pt unable to have video swallow eval today d/t radiology being unavailable. Speech therapist was on the unit, did a repeat swallow eval. Pt tolerated nectar thick water well. Diet remains NPO except for ice chips and Meds. Meds to be given with nectar thick water. Pt observed in bed, awake and alert, no distress noted, O2Sat: 97%. Pt remains on Dopamine 4mcg/kg/min to maintain HR >60. Will continue to monitor.
--- NOTE | 2019-02-03 14:50 | General Progress Note ---
Assessment/Plan Problem List: (1) Renal failure (ARF), acute on chronic ICD Codes: N17.9 - Acute kidney failure, unspecified; N18.9 - Chronic kidney disease, unspecified SNOMED: 816245737 (2) Sepsis ICD Codes: A41.9 - Sepsis, unspecified organism SNOMED: 19042348 Qualifiers: Qualified Codes: A41.9 - Sepsis, unspecified organism (3) Malignant neoplasm of right kidney ICD Codes: C64.1 - Malignant neoplasm of right kidney, except renal pelvis SNOMED: 973822472 (4) Acute respiratory failure ICD Codes: J96.00 - Acute respiratory failure, unspecified whether with hypoxia or hypercapnia SNOMED: 02476540 (5) PVD (peripheral vascular disease) ICD Codes: I73.9 - Peripheral vascular disease, unspecified SNOMED: 345296897 Status: unchanged Assessment/Plan: vent abx wound care cbc bmp am ltach eval Subjective Constitutional: Reports: weakness Allergies: Coded Allergies: No Known Allergies (Unverified , 01/24/19) All Systems: reviewed and negative except above Subjective o2 mask in icu Objective Last 24 Hour Vital Signs Date Time Temp Pulse Resp B/P (MAP) Pulse Ox O2 Delivery O2 Flow Rate FiO2 02/03/19 14:00 79 22 84/51 (62) 100 02/03/19 14:00 84/51 02/03/19 13:30 72 23 101/54 (70) 100 02/03/19 13:00 65 25 97/47 (64) 100 02/03/19 13:00 97/47 02/03/19 12:47 100 Cool Aerosol 8.0 30 02/03/19 12:30 88 22 115/57 (76) 100 02/03/19 12:00 Simple Mask 8.0 02/03/19 12:00 119/55 02/03/19 11:59 68 02/03/19 11:58 99.5 71 25 104/56 (72) 100 02/03/19 11:37 104/56 02/03/19 11:00 82 19 85/49 (61) 97 02/03/19 11:00 85/49 02/03/19 10:30 78 15 140/61 (87) 100 02/03/19 10:00 108/64 02/03/19 10:00 70 19 108/64 (79) 99 02/03/19 09:30 80 24 145/70 (95) 100 02/03/19 09:00 145/70 02/03/19 09:00 58 23 108/79 (89) 100 02/03/19 08:30 67 23 80/42 (55) 100 02/03/19 08:00 Simple Mask 8.0 02/03/19 08:00 98.7 67 21 83/44 (57) 93 02/03/19 08:00 83/44 02/03/19 08:00 64 02/03/19 07:09 77 21 81/40 (54) 95 02/03/19 07:02 98 Cool Aerosol 8.0 30 02/03/19 07:00 76 19 71/43 (52) 98 02/03/19 07:00 71/43 02/03/19 06:31 62 19 90/50 (63) 98 02/03/19 06:30 63 19 88/48 (61) 98 02/03/19 06:05 58 4 90/43 (59) 97 02/03/19 06:00 89/45 02/03/19 06:00 64 16 89/45 (60) 100 02/03/19 05:30 64 9 91/48 (62) 91 02/03/19 05:00 115/56 02/03/19 05:00 70 17 115/56 (75) 100 02/03/19 04:30 60 7 131/60 (83) 98 02/03/19 04:06 89 18 88/58 (68) 98 02/03/19 04:00 Simple Mask 8.0 02/03/19 04:00 56/44 02/03/19 04:00 97.7 75 19 56/44 (48) 89 02/03/19 03:30 60 02/03/19 03:30 59 22 93/51 (65) 99 02/03/19 03:00 66 0 119/55 (76) 99 02/03/19 03:00 119/55 02/03/19 02:30 60 17 114/57 (76) 99 02/03/19 02:00 63 20 125/65 (85) 96 02/03/19 02:00 125/65 02/03/19 01:30 63 12 123/59 (80) 96 02/03/19 01:00 67 19 127/76 (93) 99 02/03/19 01:00 127/76 02/03/19 00:41 99 Cool Aerosol 8.0 30 02/03/19 00:30 60 15 132/55 (80) 99 02/03/19 00:00 Simple Mask 8.0 02/03/19 00:00 147/66 02/03/19 00:00 97.4 60 17 147/66 (93) 97 02/02/19 23:30 64 15 148/66 (93) 98 02/02/19 23:17 61 02/02/19 23:00 150/65 02/02/19 23:00 65 16 150/65 (93) 97 02/02/19 22:30 50 18 165/71 (102) 99 02/02/19 22:27 50 12 154/59 (90) 98 02/02/19 22:00 60 19 81/50 (60) 92 02/02/19 22:00 81/50 02/02/19 21:30 92 18 177/85 (115) 98 02/02/19 21:00 63 14 127/63 (84) 98 02/02/19 21:00 127/63 02/02/19 20:30 59 13 136/61 (86) 100 02/02/19 20:00 148/73 02/02/19 20:00 97.7 64 15 148/73 (98) 99 02/02/19 20:00 Simple Mask 8.0 02/02/19 19:35 84/56 02/02/19 19:30 86 17 84/56 (65) 96 02/02/19 19:01 101 02/02/19 19:01 96 Cool Aerosol 8.0 30 02/02/19 19:00 82 17 130/77 (94) 97 02/02/19 18:30 62 11 136/53 (80) 98 02/02/19 18:00 62 13 137/65 (89) 93 02/02/19 17:30 70 14 105/85 (92) 95 02/02/19 17:00 69 16 109/53 (71) 100 02/02/19 16:30 73 18 98/47 (64) 98 02/02/19 16:00 Venturi Mask 10.0 02/02/19 16:00 58 02/02/19 16:00 97.7 76 17 116/55 (75) 94 02/02/19 15:30 60 13 144/43 (76) 95 02/02/19 15:00 57 12 138/40 (72) 100 Intake and Output 02/02/19 02/03/19 19:00 07:00 Intake Total 478.592 ml 713.234 ml Output Total 1090 ml 1740 ml Balance -611.408 ml -1026.766 ml IV Total 428.592 ml 423.234 ml Tube Feeding 210 ml Other 50 ml 80 ml Output Urine Total 1090 ml 1740 ml # Bowel Movements 2 Laboratory Tests 02/03/19 03:25: White Blood Count 16.5H, Red Blood Count 4.27L, Hemoglobin 13.0L, Hematocrit 40.5L, Mean Corpuscular Volume 95, Mean Corpuscular Hemoglobin 30.5, Mean Corpuscular Hemoglobin Concent 32.1, Red Cell Distribution Width 14.5, Platelet Count 302, Mean Platelet Volume 4.5L, Neutrophils (%) (Auto) 81.8H, Lymphocytes (%) (Auto) 10.1L, Monocytes (%) (Auto) 6.7, Eosinophils (%) (Auto) 0.0, Basophils (%) (Auto) 1.3, Sodium Level 140, Potassium Level 3.6, Chloride Level 102, Carbon Dioxide Level 35H, Anion Gap 3L, Blood Urea Nitrogen 25H, Creatinine 1.3, Estimat Glomerular Filtration Rate 54.9, Glucose Level 130H, Calcium Level 7.5L, Phosphorus Level 3.4, Magnesium Level 2.1, Total Bilirubin 0.3, Aspartate Amino Transf (AST/SGOT) 75H, Alanine Aminotransferase (ALT/SGPT) 109H, Alkaline Phosphatase 124H, Pro-B-Type Natriuretic Peptide 76640W, Total Protein 6.0L, Albumin 2.0L, Globulin 4.0, Albumin/Globulin Ratio 0.5L Height (Feet): 5 Height (Inches): 6.00 Weight (Pounds): 143 General Appearance: lethargic EENT: normal ENT inspection Neck: normal alignment Cardiovascular: normal peripheral pulses, normal rate, regular rhythm Respiratory/Chest: chest wall non-tender, lungs clear, normal breath sounds Abdomen: normal bowel sounds, non tender, soft Extremities: normal inspection Edema: no edema noted Arm (L), no edema noted Arm (R), no edema noted Leg (L), no edema noted Leg (R), no edema noted Pedal (L), no edema noted Pedal (R), no edema noted Generalized Neurologic: responsive, motor weakness Skin: normal pigmentation, warm/dry Corey Short DO Feb 03, 2019 14:50
--- NOTE | 2019-02-03 14:59 | NUR ---
SWALLOW STATUS: PATIENT IS ALERT BUT STILL CONFUSED. HIS 14 FR NGT KEPT WAS DIFFICULT TO INSERT. LAST HAD FEEDINGS THROUGH [facility]GT ON 02/01/19. UNABLE TO HAVE MOD BARIUM SWALLOW STUDY TODAY DUE TO SCHEDULE CONFLICTS. RESP RATE IS FROM 22 UP TO 25 (HIGH) AT REST. REQUIRES ASSIST WITH PHLEGM/SECRETIONS. Oxygen Flow Rate 8.0 L/min PO TRIALS WITH NECTAR THICK LIQUID WATER TSP LEVEL X2, TRIGGERED SWALLOW AFTER 4-9 SECONDS (MAY BE SAVORING THE WATER PER PT). HAD NO ORAL RESIDUE NOR OVERT ASPIRATION. HAS A HIGH SILENT ASP RISK DUE TO HIS DEMENTIA DX AND HAS CURRENT PNA AND PRIOR PNA. PLAN: CONTINUE WITH NPO FOR NOW EXCEPT MEDS (CAN CRUSH AND ADD TO NECTAR THICK WATER SINCE UNABLE TO GIVE IV PER RN) PATIENT NOT RECEPTIVE TO REINSERTION OF NGT AT THIS TIME. CONTINUE WITH ORAL CARE/SUCTION PRN D/W TRISTAN BELLO. 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 There is a small left pleural effusion again demonstrated
[2019-02-03] MEDS: Theophylline ER 100mg ORAL SCH ×2 (15:06→20:36)
--- NOTE | 2019-02-03 15:21 | Diagnostic Imaging Report ---
Indication: Abdominal pain, abnormal liver function tests Technique: Juárez-scale and duplex images of the upper abdomen were obtained Comparison: one Findings: Gallbladder is unremarkable, without stones, wall thickening, nor pericholecystic fluid. Sonographic Salazar's sign is negative. Common bile duct measures 3 mm in diameter. No intrahepatic biliary ductal dilatation. Liver demonstrates coarsened echogenicity. No focal abnormality. No surface nodularity Portal vein and hepatic veins are patent. Pancreas is obscured by bowel gas. Spleen is poorly visualized, no gross abnormality Left kidney measures 10.6 cm in length. Right kidney measures 9.6 cm length. Both kidneys demonstrate normal echogenicity. There is no hydronephrosis. There are bilateral renal cysts . Abdominal aorta is partially obscured by bowel gas, visualized portions are non-aneurysmal . Impression: Negative for gallstones or dilated bile ducts Coarsened hepatic echogenicity, may indicate hepatocellular disease Limited exam, with nonvisualization the pancreas, suboptimal visualization of the aorta and spleen Incidental finding bilateral renal cysts
--- NOTE | 2019-02-03 17:15 | Consultation ---
DATE OF CONSULTATION: 02/03/2019 INITIAL PSYCHIATRIC EVALUATION CONSULTING PHYSICIAN: Stacie Paige M.D. HISTORY OF PRESENT ILLNESS: This is a 68-year-old male patient. Basically, this patient is in the hospital secondary to respiratory failure, sepsis, tachycardia, and right heel and sacral wound. Came from [facility]. I actually see this patient at the shelter, but this patient has an overlying diagnosis of paranoid schizophrenia, so he is normally treated with psychotropic medications and treated by Psychiatry and followed at shelter, but normally he does have some psychomotor agitation, but he is very confused, disorganized. He is in ICU. He has significant respiratory insufficiency and significant decline in cognition below his baseline. As far as medication management, normally he has altered mental status and required medications to prevent any further decline in cognition. Also required mood stabilizers such as Seroquel in the past. So there was a psychiatric consultation to help evaluate and manage this patient's psychotropic medication. This patient does have some mood lability and altered mental status currently, but it appears though he does not have much to help stabilize his mood at this time. MEDICAL HISTORY: The patient has prior history of COPD, chronic renal disease. He has peripheral vascular disease and malignant neoplasm of the right kidney. ALLERGIES: He has no known drug allergies. PSYCHOTROPIC MEDICATIONS ON ADMISSION: Per history, he is on Aricept, Namenda, and Seroquel. SOCIAL HISTORY: Lives in shelter. Financially supported by [employer] and Medicare. No known legal problems. PAIN ASSESSMENT: 0/10 pain. DEVELOPMENT PROBLEMS: Denies. FAMILY PSYCHIATRIC HISTORY: No known family psych history. SUBSTANCE ABUSE HISTORY: No known history of drug or alcohol use. PSYCHIATRIC HISTORY: He has a history of paranoid schizophrenia, rule out dementia with psychosis. STRENGTHS: He is motivated to get better and has a place to live. WEAKNESSES: Impulsive, minimal support system, poor finances. MENTAL STATUS EXAMINATION: This is a 68-year-old male. Appearance is disheveled. Attitude, irritable and agitated. Affect is flat. Intellect is poor because he does know current events, does not know last four presidents. Mood, depressed and anxious. Motor activity, psychomotor retardation. Attention span is poor because he cannot do serial sevens or spell world backwards. Orientation x1 to person only at the time of interview. Speech is nonsensical. Thought process, disorganized and illogical. Thought content, slight paranoia. Perception is poor because he has perceptual disturbances and paranoia. Abstract reasoning is poor. This patient does not understand proverbs, only has concrete thinking. Insight is poor because he does not recognize having a psych disorder. Judgment is poor. He does not understand consequences for his actions. Short-term memory is 0/3 of a 3-word recall, still poor short-term memory. Long-term memory is poor because he has difficulty to recall any long-term events in his life such as high school that he went to. Poor long-term memory as well. DIAGNOSES: 1. Paranoid schizophrenia with acute exacerbation. 2. Secondary, none. 3. Medical, COPD, chronic renal disease, malignant neoplasm of the right kidney, peripheral vascular disease. 4. Psychosocial stressors, financial. 5. Functional impairment is mild. PLAN: I am going to restart this patient on a few medications to help reduce mood lability and agitation now to prevent any further decline in his cognition. I am going to start this patient on a medication regimen of Namenda 5 mg daily for now. Given his respiratory status, I am going to give him a very low dose of Seroquel at nighttime to help him with resting and . I am going to put him on low doses to make sure that it does not negatively affect his respiratory status and he will continue to be followed by Psychiatry throughout hospital course. Seen and assessed in ICU. I would like to thank, Dr. Corey Short, for this interesting consultation. I will be happy to follow this patient with you throughout the hospital course. Chart reviewed. Discussed with staff. 20 minutes of behavioral management provided. Stacie Paige M.D. DR: CELINE JOB#: [id number] CC:
--- NOTE | 2019-02-03 17:30 | NUR ---
NURSE NOTES: Pt cleaned and repositioned. Oral care completed. No distress noted at this time.
--- NOTE | 2019-02-03 17:30 | Surgery Progress Note ---
Surgery Progress Note Subjective Symptoms: improved, passing flatus Additional Comments swallow not ready awake responsive cursing labs noted exam stable Objective Last 24 Hour Vital Signs Date Time Temp Pulse Resp B/P (MAP) Pulse Ox O2 Delivery O2 Flow Rate FiO2 02/03/19 17:00 68 15 81/53 (62) 95 02/03/19 16:25 88 19 80/44 (56) 93 02/03/19 16:00 83 02/03/19 16:00 100.0 93 16 67/46 (53) 95 02/03/19 16:00 67/46 02/03/19 16:00 Simple Mask 8.0 02/03/19 15:30 87 25 79/57 (64) 93 02/03/19 15:00 73 24 82/45 (57) 94 02/03/19 15:00 82/45 02/03/19 14:30 77 21 88/44 (59) 100 02/03/19 14:00 79 22 84/51 (62) 100 02/03/19 14:00 84/51 02/03/19 13:30 72 23 101/54 (70) 100 02/03/19 13:00 65 25 97/47 (64) 100 02/03/19 13:00 97/47 02/03/19 12:47 100 Cool Aerosol 8.0 30 02/03/19 12:30 88 22 115/57 (76) 100 02/03/19 12:00 Simple Mask 8.0 02/03/19 12:00 119/55 02/03/19 11:59 68 02/03/19 11:58 99.5 71 25 104/56 (72) 100 02/03/19 11:37 104/56 02/03/19 11:00 82 19 85/49 (61) 97 02/03/19 11:00 85/49 02/03/19 10:30 78 15 140/61 (87) 100 02/03/19 10:00 108/64 02/03/19 10:00 70 19 108/64 (79) 99 02/03/19 09:30 80 24 145/70 (95) 100 02/03/19 09:00 145/70 02/03/19 09:00 58 23 108/79 (89) 100 02/03/19 08:30 67 23 80/42 (55) 100 02/03/19 08:00 Simple Mask 8.0 02/03/19 08:00 98.7 67 21 83/44 (57) 93 02/03/19 08:00 83/44 02/03/19 08:00 64 02/03/19 07:09 77 21 81/40 (54) 95 02/03/19 07:02 98 Cool Aerosol 8.0 30 02/03/19 07:00 76 19 71/43 (52) 98 02/03/19 07:00 71/43 02/03/19 06:31 62 19 90/50 (63) 98 02/03/19 06:30 63 19 88/48 (61) 98 02/03/19 06:05 58 4 90/43 (59) 97 02/03/19 06:00 89/45 02/03/19 06:00 64 16 89/45 (60) 100 02/03/19 05:30 64 9 91/48 (62) 91 02/03/19 05:00 115/56 02/03/19 05:00 70 17 115/56 (75) 100 02/03/19 04:30 60 7 131/60 (83) 98 02/03/19 04:06 89 18 88/58 (68) 98 02/03/19 04:00 Simple Mask 8.0 02/03/19 04:00 56/44 02/03/19 04:00 97.7 75 19 56/44 (48) 89 02/03/19 03:30 60 02/03/19 03:30 59 22 93/51 (65) 99 02/03/19 03:00 66 0 119/55 (76) 99 02/03/19 03:00 119/55 02/03/19 02:30 60 17 114/57 (76) 99 02/03/19 02:00 63 20 125/65 (85) 96 02/03/19 02:00 125/65 02/03/19 01:30 63 12 123/59 (80) 96 02/03/19 01:00 67 19 127/76 (93) 99 02/03/19 01:00 127/76 02/03/19 00:41 99 Cool Aerosol 8.0 30 02/03/19 00:30 60 15 132/55 (80) 99 02/03/19 00:00 Simple Mask 8.0 02/03/19 00:00 147/66 02/03/19 00:00 97.4 60 17 147/66 (93) 97 02/02/19 23:30 64 15 148/66 (93) 98 02/02/19 23:17 61 02/02/19 23:00 150/65 02/02/19 23:00 65 16 150/65 (93) 97 02/02/19 22:30 50 18 165/71 (102) 99 02/02/19 22:27 50 12 154/59 (90) 98 02/02/19 22:00 60 19 81/50 (60) 92 02/02/19 22:00 81/50 02/02/19 21:30 92 18 177/85 (115) 98 02/02/19 21:00 63 14 127/63 (84) 98 02/02/19 21:00 127/63 02/02/19 20:30 59 13 136/61 (86) 100 02/02/19 20:00 148/73 02/02/19 20:00 97.7 64 15 148/73 (98) 99 02/02/19 20:00 Simple Mask 8.0 02/02/19 19:35 84/56 02/02/19 19:30 86 17 84/56 (65) 96 02/02/19 19:01 101 02/02/19 19:01 96 Cool Aerosol 8.0 30 02/02/19 19:00 82 17 130/77 (94) 97 02/02/19 18:30 62 11 136/53 (80) 98 02/02/19 18:00 62 13 137/65 (89) 93 02/02/19 17:30 70 14 105/85 (92) 95 I&O Intake and Output 02/02/19 02/03/19 19:00 07:00 Intake Total 478.592 ml 713.234 ml Output Total 1090 ml 1740 ml Balance -611.408 ml -1026.766 ml IV Total 428.592 ml 423.234 ml Tube Feeding 210 ml Other 50 ml 80 ml Output Urine Total 1090 ml 1740 ml # Bowel Movements 2 Dressing: other Wound: other Cardiovascular: RSR Respiratory: decreased breath sounds Abdomen: soft, present bowel sounds, non-distended Extremities: no cyanosis, other Laboratory Tests Test 02/03/19 03:25 White Blood Count 16.5 K/UL (4.8-10.8) H Red Blood Count 4.27 M/UL (4.70-6.10) L Hemoglobin 13.0 G/DL (14.2-18.0) L Hematocrit 40.5 % (42.0-52.0) L Mean Corpuscular Volume 95 FL (80-99) Mean Corpuscular Hemoglobin 30.5 PG (27.0-31.0) Mean Corpuscular Hemoglobin Concent 32.1 G/DL (32.0-36.0) Red Cell Distribution Width 14.5 % (11.6-14.8) Platelet Count 302 K/UL (150-450) Mean Platelet Volume 4.5 FL (6.5-10.1) L Neutrophils (%) (Auto) 81.8 % (45.0-75.0) H Lymphocytes (%) (Auto) 10.1 % (20.0-45.0) L Monocytes (%) (Auto) 6.7 % (1.0-10.0) Eosinophils (%) (Auto) 0.0 % (0.0-3.0) Basophils (%) (Auto) 1.3 % (0.0-2.0) Sodium Level 140 MMOL/L (136-145) Potassium Level 3.6 MMOL/L (3.5-5.1) Chloride Level 102 MMOL/L (98-107) Carbon Dioxide Level 35 MMOL/L (21-32) H Anion Gap 3 mmol/L (5-15) L Blood Urea Nitrogen 25 mg/dL (7-18) H Creatinine 1.3 MG/DL (0.55-1.30) Estimat Glomerular Filtration Rate 54.9 mL/min (>60) Glucose Level 130 MG/DL (74-106) H Calcium Level 7.5 MG/DL (8.5-10.1) L Phosphorus Level 3.4 MG/DL (2.5-4.9) Magnesium Level 2.1 MG/DL (1.8-2.4) Total Bilirubin 0.3 MG/DL (0.2-1.0) Aspartate Amino Transf (AST/SGOT) 75 U/L (15-37) H Alanine Aminotransferase (ALT/SGPT) 109 U/L (12-78) H Alkaline Phosphatase 124 U/L (46-116) H Pro-B-Type Natriuretic Peptide 11443 pg/mL (0-125) H Total Protein 6.0 G/DL (6.4-8.2) L Albumin 2.0 G/DL (3.4-5.0) L Globulin 4.0 g/dL Albumin/Globulin Ratio 0.5 (1.0-2.7) L Plan Problems: (1) Sepsis Assessment & Plan: afebrile, HD improving HR -noted cardiology input leukocytosis lactic acidosis resolved slowly improving -IV abx as per ID -trend labs -swallow eval not ready so wait until once more responsive -PEG as per GI? -will follow with recs thank you PATIENT IS ALERT BUT STILL CONFUSED. HIS 14 FR NGT KEPT WAS DIFFICULT TO INSERT. LAST HAD FEEDINGS THROUGH OGT ON 02/01/19. UNABLE TO HAVE MOD BARIUM SWALLOW STUDY TODAY DUE TO SCHEDULE CONFLICTS. RESP RATE IS FROM 22 UP TO 25 (HIGH) AT REST. REQUIRES ASSIST WITH PHLEGM/SECRETIONS. Oxygen Flow Rate 8.0 L/min PO TRIALS WITH NECTAR THICK LIQUID WATER TSP LEVEL X2, TRIGGERED SWALLOW AFTER 4-9 SECONDS (MAY BE SAVORING THE WATER PER PT). HAD NO ORAL RESIDUE NOR OVERT ASPIRATION. HAS A HIGH SILENT ASP RISK DUE TO HIS DEMENTIA DX AND HAS CURRENT PNA AND PRIOR PNA. PLAN: CONTINUE WITH NPO FOR NOW EXCEPT MEDS (CAN CRUSH AND ADD TO NECTAR THICK WATER SINCE UNABLE TO GIVE IV PER RN) PATIENT NOT RECEPTIVE TO REINSERTION OF NGT AT THIS TIME. replace NG tube if possible (2) Septic shock (3) Wound, open Assessment & Plan: Patient presented on admission with multiple pressure injuries being identified. Non-blanching erythema without induration noted to sacrum ,Right and Left buttocks. Scattered areas that are darker and maroon in color noted within base of wound. Scrotum is also erythematous. Unstageable pressure injury noted to Left heel. Base of wound is 100% necrotic but soft. Erythematous margins with surrounding non-blanching erythema.(L)3.2cm x (W)3cm. no drainage Right heel is boggy with non-blanching erythema.. Keloid scar noted distal R tibia. Partial thickness ulcer noted to dorsal R foot. Base of wound is moist and viable. Small amt serous exudate noted. Scattered small dry scabs noted to dorsal R foot. Tx.Plan: Swab Dorsal R foot and R heel with Betadine. Cover with Optifoam drsg. Change every 3 days and prn. Apply Moisture Barrier Paste to buttocks. Cover sacrum with Optifoam drsg. Change every 3 days and prn. Apply Cavilon Skin Barrier to L heel.Cover with Optifoam drsg. Change every 7 days and prn. APM/JELLY mattress. Reposition at least every 2hours or as tolerated. Off-load heels with pillow. Nutritional Optimization Will monitor while in critical condition DAILY ESTIMATED NEEDS: Needs based on Critical care, sepsis, wounds 69kg 22-30 kcals/kg 4675-9708 total kcals 1.25-2 g protein/kg 86-138 g total protein 25-30 mL/kg 1592-4357 total fluid mLs NUTRITION DIAGNOSIS: Increased kcal and pro needs r/t sepsis, wound healing, and underweight status as evidenced by pt w respiratory distress now intubated, critically elev WBC (*29.7), elev BG (200's), w/ multiple wounds (refer to eval), pt is @88% if [place] Body Weight. CURRENT TF: Glucerna 1.2 @30ml ENTERAL NUTRITION RECOMMENDATIONS: VITAL AF 1.2 @60ml/hr x24 hrs to provide 1440ml, 1728 kcal, 108g pro, 1168ml free H2O - WITH HEMODYNAMIC STABILITY, rec TF change to VITAL 1.2 to better meet est needs. Start @20ml/hr for 6 hrs. Advance as tolerated 10ml/hr q4-6 hrs to goal. - Flush per . HOB over 30 degrees If pt remains on pressor support, rec trophic feeds of Vital 1.2 @5-10ml/hr to maintain gut integrity. ------ ADDITIONAL RECOMMENDATIONS: 1) Per SNF: HT 71 inches, 152 lbs (69.1kg) 2) Wound care: Add DANIELA in 4oz water BID via OGT + VIT C 250mg BID (f/up w/ WC specialist) 3) Monitor lytes daily, replete as needed 4) Daily calibrated bed scale wts Mauricio Anne Feb 03, 2019 17:30
--- NOTE | 2019-02-03 19:10 | NUR ---
HAND-OFF: Report given to EUGENIA Rao.
[2019-02-03] MEDS: Dyna-Hex 2% Top Sol 2oz TOPIC SCH (19:37)
--- NOTE | 2019-02-03 19:45 | NUR ---
NURSE NOTES: PATIENT AWOKE, CONFUSED TO TIME, PLACE AND SITUATION, ABLE TO COMMUNICATION, RESISTANCE TO CARE STATUS, ON FIO2 30 % COOL AEROSOL MASK, O2 SATURATION OVER 100% NOTED, HEART RATE 70'S/MIN SR NOTED, ABDOMEN SOFT, NON TENDER, NO BM NOTED, KEPT NPO EXCEPT MED, NO N/V STATUS, F/C INTACT AND PATENT, THIN YELLOW URINE OUTED, PICC LINE TO RIGHT UPPER ARM, INTACT AND PATENT, ONGOING DOPAMINE 4MCG/KG/MIN VIA PICC LINE, 2 POINT SOFT RESTRAINTS FOR SAFETY, ON P200 BED, LOCKED BED, KEPT HOB 30 DEGREES AND BED ALARM, PROVIDED CALL LIGHT WITHIN REACH, WILL CONTINUE TO MONITOR. Addendum: 02/04/19 at 2018 by DEISY HIGHTOWER RN NURSE NOTES: PATIENT AWOKE, CONFUSED TO TIME, PLACE AND SITUATION, ABLE TO COMMUNICATION, RESISTANCE TO CARE STATUS, ON FIO2 30 % COOL AEROSOL MASK, O2 SATURATION 100% NOTED, HEART RATE 70'S/MIN SR NOTED, ABDOMEN SOFT, NON TENDER, NO BM NOTED, KEPT NPO EXCEPT MED, NO N/V STATUS, F/C INTACT AND PATENT, THIN YELLOW URINE OUTED, PICC LINE TO RIGHT UPPER ARM, INTACT AND PATENT, ONGOING DOPAMINE 4MCG/KG/MIN VIA PICC LINE, 2 POINT SOFT RESTRAINTS FOR SAFETY, ON P200 BED, LOCKED BED, KEPT HOB 30 DEGREES AND BED ALARM, PROVIDED CALL LIGHT WITHIN REACH, WILL CONTINUE TO MONITOR.
--- NOTE | 2019-02-03 20:34 | NUR ---
NURSE NOTES: MD Helm here to see the patient. order is to start titrating the dopamine down by 1 mcg/min at 5am tomorrow. if patient becomes alanna then simulate him and see if his heart rate increases.
--- NOTE | 2019-02-03 20:40 | Cardiology Progress Note ---
Assessment/Plan Assessment/Plan 1. Septic syndrome. 2. Respiratory failure now extubated 3. Pneumonia. 4. Schizophrenia and dementia. 5. Urinary tract infection. 6. Renal failure. 7. Hypoalbuminemia/malnutrition. 8. Sinus tachycardia secondary to above resolved 9. Left ventricular systolic dysfunction. 10. sinus alanna cxr reviewed personally rernal fxn improved tele sinus / alanna on dopamine for alanna is now extubated still with some sbp less thatn 100 but mostly above avoid any neg chronotropic agents as long as sinus alanna should not need DA karthik titrate off Subjective ROS Limited/Unobtainable: Yes Cardiovascular: Reports: chest pain Objective Last 24 Hour Vital Signs Date Time Temp Pulse Resp B/P (MAP) Pulse Ox O2 Delivery O2 Flow Rate FiO2 02/03/19 20:00 72 17 96/54 (68) 99 02/03/19 20:00 Simple Mask 8.0 02/03/19 19:45 79 02/03/19 19:30 72 22 93/51 (65) 99 02/03/19 19:10 77 21 99 Cool Aerosol 8.0 30 02/03/19 19:10 99 Cool Aerosol 8.0 30 02/03/19 19:00 70 28 84/66 (72) 100 02/03/19 18:00 70 14 118/58 (78) 100 02/03/19 17:00 68 15 81/53 (62) 95 02/03/19 17:00 91/55 02/03/19 16:25 88 19 80/44 (56) 93 02/03/19 16:00 83 02/03/19 16:00 100.0 93 16 67/46 (53) 95 02/03/19 16:00 67/46 02/03/19 16:00 Simple Mask 8.0 02/03/19 15:30 87 25 79/57 (64) 93 02/03/19 15:00 73 24 82/45 (57) 94 02/03/19 15:00 82/45 02/03/19 14:30 77 21 88/44 (59) 100 02/03/19 14:00 79 22 84/51 (62) 100 02/03/19 14:00 84/51 02/03/19 13:30 72 23 101/54 (70) 100 02/03/19 13:00 65 25 97/47 (64) 100 02/03/19 13:00 97/47 02/03/19 12:47 100 Cool Aerosol 8.0 30 02/03/19 12:30 88 22 115/57 (76) 100 02/03/19 12:00 Simple Mask 8.0 02/03/19 12:00 119/55 02/03/19 11:59 68 02/03/19 11:58 99.5 71 25 104/56 (72) 100 02/03/19 11:37 104/56 02/03/19 11:00 82 19 85/49 (61) 97 02/03/19 11:00 85/49 02/03/19 10:30 78 15 140/61 (87) 100 02/03/19 10:00 108/64 02/03/19 10:00 70 19 108/64 (79) 99 02/03/19 09:30 80 24 145/70 (95) 100 02/03/19 09:00 145/70 02/03/19 09:00 58 23 108/79 (89) 100 02/03/19 08:30 67 23 80/42 (55) 100 02/03/19 08:00 Simple Mask 8.0 02/03/19 08:00 98.7 67 21 83/44 (57) 93 02/03/19 08:00 83/44 02/03/19 08:00 64 02/03/19 07:09 77 21 81/40 (54) 95 02/03/19 07:02 98 Cool Aerosol 8.0 30 02/03/19 07:00 76 19 71/43 (52) 98 02/03/19 07:00 71/43 02/03/19 06:31 62 19 90/50 (63) 98 02/03/19 06:30 63 19 88/48 (61) 98 02/03/19 06:05 58 4 90/43 (59) 97 02/03/19 06:00 89/45 02/03/19 06:00 64 16 89/45 (60) 100 02/03/19 05:30 64 9 91/48 (62) 91 02/03/19 05:00 115/56 02/03/19 05:00 70 17 115/56 (75) 100 02/03/19 04:30 60 7 131/60 (83) 98 02/03/19 04:06 89 18 88/58 (68) 98 02/03/19 04:00 Simple Mask 8.0 02/03/19 04:00 56/44 02/03/19 04:00 97.7 75 19 56/44 (48) 89 02/03/19 03:30 60 02/03/19 03:30 59 22 93/51 (65) 99 02/03/19 03:00 66 0 119/55 (76) 99 02/03/19 03:00 119/55 02/03/19 02:30 60 17 114/57 (76) 99 02/03/19 02:00 63 20 125/65 (85) 96 02/03/19 02:00 125/65 02/03/19 01:30 63 12 123/59 (80) 96 02/03/19 01:00 67 19 127/76 (93) 99 02/03/19 01:00 127/76 02/03/19 00:41 99 Cool Aerosol 8.0 30 02/03/19 00:30 60 15 132/55 (80) 99 02/03/19 00:00 Simple Mask 8.0 02/03/19 00:00 147/66 02/03/19 00:00 97.4 60 17 147/66 (93) 97 02/02/19 23:30 64 15 148/66 (93) 98 02/02/19 23:17 61 02/02/19 23:00 150/65 02/02/19 23:00 65 16 150/65 (93) 97 02/02/19 22:30 50 18 165/71 (102) 99 02/02/19 22:27 50 12 154/59 (90) 98 02/02/19 22:00 60 19 81/50 (60) 92 02/02/19 22:00 81/50 02/02/19 21:30 92 18 177/85 (115) 98 02/02/19 21:00 63 14 127/63 (84) 98 02/02/19 21:00 127/63 General Appearance: no apparent distress, alert Cardiovascular: normal rate Respiratory/Chest: lungs clear Abdomen: normal bowel sounds, non tender, soft Extremities: no swelling Intake and Output 02/02/19 02/03/19 18:59 06:59 Intake Total 478.592 ml 688.234 ml Output Total 1215 ml 1680 ml Balance -736.408 ml -991.766 ml IV Total 428.592 ml 423.234 ml Tube Feeding 0 ml 185 ml Other 50 ml 80 ml Output Urine Total 1215 ml 1680 ml # Bowel Movements 2 Laboratory Tests Test 02/03/19 03:25 White Blood Count 16.5 K/UL (4.8-10.8) H Red Blood Count 4.27 M/UL (4.70-6.10) L Hemoglobin 13.0 G/DL (14.2-18.0) L Hematocrit 40.5 % (42.0-52.0) L Mean Corpuscular Volume 95 FL (80-99) Mean Corpuscular Hemoglobin 30.5 PG (27.0-31.0) Mean Corpuscular Hemoglobin Concent 32.1 G/DL (32.0-36.0) Red Cell Distribution Width 14.5 % (11.6-14.8) Platelet Count 302 K/UL (150-450) Mean Platelet Volume 4.5 FL (6.5-10.1) L Neutrophils (%) (Auto) 81.8 % (45.0-75.0) H Lymphocytes (%) (Auto) 10.1 % (20.0-45.0) L Monocytes (%) (Auto) 6.7 % (1.0-10.0) Eosinophils (%) (Auto) 0.0 % (0.0-3.0) Basophils (%) (Auto) 1.3 % (0.0-2.0) Sodium Level 140 MMOL/L (136-145) Potassium Level 3.6 MMOL/L (3.5-5.1) Chloride Level 102 MMOL/L (98-107) Carbon Dioxide Level 35 MMOL/L (21-32) H Anion Gap 3 mmol/L (5-15) L Blood Urea Nitrogen 25 mg/dL (7-18) H Creatinine 1.3 MG/DL (0.55-1.30) Estimat Glomerular Filtration Rate 54.9 mL/min (>60) Glucose Level 130 MG/DL (74-106) H Calcium Level 7.5 MG/DL (8.5-10.1) L Phosphorus Level 3.4 MG/DL (2.5-4.9) Magnesium Level 2.1 MG/DL (1.8-2.4) Total Bilirubin 0.3 MG/DL (0.2-1.0) Aspartate Amino Transf (AST/SGOT) 75 U/L (15-37) H Alanine Aminotransferase (ALT/SGPT) 109 U/L (12-78) H Alkaline Phosphatase 124 U/L (46-116) H Pro-B-Type Natriuretic Peptide 60434 pg/mL (0-125) H Total Protein 6.0 G/DL (6.4-8.2) L Albumin 2.0 G/DL (3.4-5.0) L Globulin 4.0 g/dL Albumin/Globulin Ratio 0.5 (1.0-2.7) L Sammy Helm MD Feb 03, 2019 20:40
--- NOTE | 2019-02-03 20:50 | NUR ---
NURSE NOTES: GIVEN MED WITH THICKEN WATER, NO ASPIRATION OR COUGH SIGN NOTED, KEPT HOB OVER 30 DEGREES, WILL CONTINUE TO MONITOR.
--- NOTE | 2019-02-03 22:16 | NUR ---
NURSE NOTES: PATIENT CALM, SLEEPING STATUS, WILL CONTINUE PLAN OF CARE.
[2019-02-04] VITALS (62 sets, daily range): BP systolic 52–177; BP diastolic 35–101
--- NOTE | 2019-02-04 00:20 | NUR ---
NURSE NOTES: RELEASED RESTRAINTS AND REAPPLIED FOR SAFETY, NO PAIN OR DISTRESS NOTED AT THIS TIME.
--- NOTE | 2019-02-04 01:20 | NUR ---
NURSE NOTES: CHANGED TO NC 3LPM VIA NC, NASOTRACHEAL SUCTION WAS DONE BY RT, O2 SATURATION OVER 95% NOTED.
--- NOTE | 2019-02-04 02:12 | NUR ---
NURSE NOTES: ONGOING DOPAMINE 5MCG/KG/MIN VIA PICC LINE, VSS AT THIS TIME, WILL CONTINUE TO MONITOR.
--- NOTE | 2019-02-04 02:50 | NUR ---
NURSE NOTES: DESATURATION 85%-88% NOTED THAT CALLED RT. RT CHANGED TO FIO2 30 % VENTURI MASK, WILL CONTINUE TO MONITOR.
[2019-02-04 04:58] LABS: BASOPHILS % (AUTO) 0.6 % (0.0-2.0); EOSINOPHILS % (AUTO) 0.5 % (0.0-3.0); HEMATOCRIT 42.5 % (42.0-52.0); HEMOGLOBIN 13.8 G/DL (14.2-18.0); LYMPHOCYTES % (AUTO) 12.3 % (20.0-45.0); MEAN CORPUSCULAR VOLUME 93 FL (80-99); MONOCYTES % (AUTO) 6.7 % (1.0-10.0); PLATELET COUNT 198 K/UL (150-450); RED BLOOD COUNT 4.54 M/UL (4.70-6.10); RED CELL DISTRIBUTION WIDTH 14.4 % (11.6-14.8); WHITE BLOOD COUNT 14.7 K/UL (4.8-10.8)
--- NOTE | 2019-02-04 05:10 | NUR ---
NURSE NOTES: MORNING CARE WAS DONE.
--- NOTE | 2019-02-04 05:22 | NUR ---
NURSE NOTES: TITRATED DOPAMINE 1MCG/KG/MIN DR. SCHAEFER' ORDER FOR HEART RATE MONITOR THAT NOTED HEART RATE 90'S /MIN WHILE DECREASING DOPAMINE FOR OVER 5 MINS AND BP DROPPED TO 55/38 MMHG, PATIENT ASLEEP STATUS.
[2019-02-04] MEDS: NovoLOG Insulin Flexpen SUBQ SCH ×5 (05:31→23:48)
[2019-02-04 05:39] LABS: ALANINE AMINOTRANSFERASE 82 U/L (12-78); ALBUMIN 2.2 G/DL (3.4-5.0); ALBUMIN/GLOBULIN RATIO 0.6 (1.0-2.7); ALKALINE PHOSPHATASE 123 U/L (46-116); ANION GAP -1 mmol/L (5-15); ASPARTATE AMINO TRANSFERASE 50 U/L (15-37); BILIRUBIN,TOTAL 0.7 MG/DL (0.2-1.0); BLOOD UREA NITROGEN 22 mg/dL (7-18); CALCIUM 7.7 MG/DL (8.5-10.1); CARBON DIOXIDE 38 MMOL/L (21-32); CHLORIDE 101 MMOL/L (98-107); CREATININE 1.4 MG/DL (0.55-1.30); POTASSIUM 4.1 MMOL/L (3.5-5.1); SODIUM 138 MMOL/L (136-145)
--- NOTE | 2019-02-04 05:46 | NUR ---
NURSE NOTES: BP 88/55MMHG AND HEART RATE 82/MIN SR NOTED ON DOPAMINE DRIP 5MCG/KG/MIN AT THIS TIME.
--- NOTE | 2019-02-04 07:17 | NUR ---
HAND-OFF: Report given to EUGENIA Gillespie.
--- NOTE | 2019-02-04 07:22 | NUR ---
NURSE NOTES: Report received from Jalen RN. Pt sleeping, easily arousable. Pt alert and oriented x 1-2, confused at times. Pt SR on pelt grader. Pt on 30% venturimask, saturation is 100%. Costello noted and intact draining clear, yellow urine to gravity. JONATHAN PICC noted and intact. Dopamine is running at 6 mcg/min. Bilateral soft wrist restraints noted and intact without injury, pt attempting to pull out lines and get OOB. Safety measures in place with bed locked and in lowest position, side rails x3 up and bed alarm on. Will continue to monitor and continue plan of care.
[2019-02-04] MEDS: Midodrine 10mg tab NG SCH ×3 (08:43→17:50)
[2019-02-04] MEDS: Theophylline ER 100mg ORAL SCH ×2 (08:43→21:00)
[2019-02-04] MEDS: Memantine 5 MG TAB ORAL SCH (08:43)
[2019-02-04] MEDS: Pantoprazole Inj IVP SCH (08:44)
[2019-02-04] MEDS: Ascorbic Acid 500mg tab ORAL SCH ×2 (08:44→17:50)
[2019-02-04] MEDS: Heparin 5000 units/ml inj SUBQ SCH ×2 (08:47→21:08)
[2019-02-04] MEDS: DOPamine 400mg/250ml 250 ML IV SCH ×2 (09:05→19:48)
[2019-02-04 09:13] LABS: PHOSPHORUS 2.9 MG/DL (2.5-4.9)
--- NOTE | 2019-02-04 09:27 | NUR ---
RADIOLOGY DEPT.,CHEST X-RAY DONE.-P.DYE
[2019-02-04] MEDS ORDERED: Varibar Nectar 240ml MC PRN (09:30)
[2019-02-04] MEDS ORDERED: Varibar Honey 250ml MC PRN (09:30)
[2019-02-04] MEDS ORDERED: Varibar Pudding 230ml MC PRN (09:30)
--- NOTE | 2019-02-04 09:30 | NUR ---
NURSE NOTES: Video swallow scheduled for 1129. Dr Sanabria here to see pt. No new orders. Will continue to monitor.
--- NOTE | 2019-02-04 11:39 | NUR ---
NURSE NOTES: Pt just returned from swallow eval. Pt wasnt able to pass swallow eval. Dr Valderrama here to see pt. Bioethics consult ordered for peg placement. Will continue to monitor.
--- NOTE | 2019-02-04 11:47 | General Progress Note ---
Assessment/Plan Problem List: (1) DM (diabetes mellitus) ICD Codes: E11.9 - Type 2 diabetes mellitus without complications SNOMED: 93046787 (2) cardiomyopathy with EF of 35% (3) Encounter for PEG (percutaneous endoscopic gastrostomy) ICD Codes: Z43.1 - Encounter for attention to gastrostomy SNOMED: 604769916, 481379426 (4) Dysphagia ICD Codes: R13.10 - Dysphagia, unspecified SNOMED: 20195857, 531325065 (5) Bradyarrhythmia ICD Codes: I49.8 - Other specified cardiac arrhythmias SNOMED: 010245115 (6) Systolic heart failure ICD Codes: I50.20 - Unspecified systolic (congestive) heart failure SNOMED: 588779395 (7) Schizophrenia ICD Codes: F20.9 - Schizophrenia, unspecified SNOMED: 95574040 (8) COPD (chronic obstructive pulmonary disease) ICD Codes: J44.9 - Chronic obstructive pulmonary disease, unspecified SNOMED: 27686192 Qualifiers: Qualified Codes: J44.9 - Chronic obstructive pulmonary disease, unspecified Status: unchanged Assessment/Plan: NGT clogged and removed abd us repeat LFTS in am failed swallow eval needs peg ordered Bioethic consult Subjective ROS Limited/Unobtainable: No Allergies: Coded Allergies: No Known Allergies (Unverified , 01/24/19) Objective Last 24 Hour Vital Signs Date Time Temp Pulse Resp B/P (MAP) Pulse Ox O2 Delivery O2 Flow Rate FiO2 02/04/19 11:31 157/73 (101) 02/04/19 11:00 02/04/19 10:30 98 26 116/67 (83) 99 02/04/19 10:00 109 32 130/76 (94) 97 02/04/19 09:30 105 36 167/85 (112) 95 02/04/19 09:05 104/59 02/04/19 09:00 101 25 101/57 (72) 98 02/04/19 08:30 105 32 86/55 (65) 87 02/04/19 08:00 93 02/04/19 08:00 Venturi Mask 4.0 02/04/19 08:00 100.0 90 25 89/51 (64) 97 02/04/19 07:30 87 30 107/59 (75) 100 02/04/19 07:23 97 Venturi Mask 8.0 30 02/04/19 07:00 84 26 112/59 (76) 99 02/04/19 07:00 104/59 02/04/19 06:30 87 29 102/62 (75) 100 02/04/19 06:00 82 30 81/48 (59) 100 02/04/19 06:00 81/48 02/04/19 05:45 85 20 88/55 (66) 100 02/04/19 05:35 82 20 75/45 (55) 100 02/04/19 05:30 73 23 60/38 (45) 99 02/04/19 05:26 91 19 52/38 (43) 02/04/19 05:25 88 22 02/04/19 05:25 88 22 02/04/19 05:21 92 24 55/38 (44) 99 02/04/19 05:20 93 25 99 02/04/19 05:19 95 26 99 02/04/19 05:18 96 26 98 02/04/19 05:17 93 24 97 02/04/19 05:16 95 25 97 02/04/19 05:15 97 26 97 02/04/19 05:09 111 22 85/54 (64) 99 02/04/19 05:00 108 23 74/52 (59) 99 02/04/19 05:00 94/52 02/04/19 04:30 90 22 127/66 (86) 97 02/04/19 04:00 86/57 02/04/19 04:00 99.8 94 26 86/57 (67) 99 02/04/19 04:00 Venturi Mask 4.0 02/04/19 03:41 91 02/04/19 03:30 92 17 67/46 (53) 99 02/04/19 03:15 114 21 71/43 (52) 02/04/19 03:00 106 26 60/46 (51) 91 02/04/19 03:00 60/46 02/04/19 02:30 91 27 84/50 (61) 95 02/04/19 02:00 82 24 110/58 (75) 100 02/04/19 02:00 110/58 02/04/19 01:30 82 24 119/57 (77) 100 02/04/19 01:00 68 20 128/80 (96) 100 02/04/19 01:00 128/80 02/04/19 00:30 81 24 80/48 (59) 100 02/04/19 00:00 Simple Mask 8.0 02/04/19 00:00 87/48 02/04/19 00:00 98.8 76 24 87/48 (61) 100 02/03/19 23:30 81 25 78/46 (57) 100 02/03/19 23:10 83 02/03/19 23:00 86 23 78/44 (55) 100 02/03/19 23:00 78/44 02/03/19 22:30 97 20 73/47 (56) 100 02/03/19 22:00 98/56 02/03/19 22:00 97 25 98/56 (70) 99 02/03/19 21:30 105 20 147/76 (99) 99 02/03/19 21:00 134/74 02/03/19 21:00 72 23 134/74 (94) 100 02/03/19 20:30 99.0 71 21 87/50 (62) 99 02/03/19 20:00 72 17 96/54 (68) 99 02/03/19 20:00 Simple Mask 8.0 02/03/19 20:00 96/54 02/03/19 19:45 79 02/03/19 19:30 72 22 93/51 (65) 99 02/03/19 19:10 77 21 99 Cool Aerosol 8.0 30 02/03/19 19:10 99 Cool Aerosol 8.0 30 02/03/19 19:00 70 28 84/66 (72) 100 02/03/19 19:00 84/66 02/03/19 18:00 70 14 118/58 (78) 100 02/03/19 17:00 68 15 81/53 (62) 95 02/03/19 17:00 91/55 02/03/19 16:25 88 19 80/44 (56) 93 02/03/19 16:00 83 02/03/19 16:00 100.0 93 16 67/46 (53) 95 02/03/19 16:00 67/46 02/03/19 16:00 Simple Mask 8.0 02/03/19 15:30 87 25 79/57 (64) 93 02/03/19 15:00 73 24 82/45 (57) 94 02/03/19 15:00 82/45 02/03/19 14:30 77 21 88/44 (59) 100 02/03/19 14:00 79 22 84/51 (62) 100 02/03/19 14:00 84/51 02/03/19 13:30 72 23 101/54 (70) 100 02/03/19 13:00 65 25 97/47 (64) 100 02/03/19 13:00 97/47 02/03/19 12:47 100 Cool Aerosol 8.0 30 02/03/19 12:30 88 22 115/57 (76) 100 02/03/19 12:00 Simple Mask 8.0 02/03/19 12:00 119/55 02/03/19 11:59 68 02/03/19 11:58 99.5 71 25 104/56 (72) 100 Intake and Output 02/03/19 02/04/19 19:00 07:00 Intake Total 417.876 ml 502.703 ml Output Total 865 ml 935 ml Balance -447.124 ml -432.297 ml IV Total 417.876 ml 452.703 ml Other 50 ml Output Urine Total 865 ml 935 ml Laboratory Tests 02/04/19 03:50: White Blood Count 14.7H, Red Blood Count 4.54L, Hemoglobin 13.8L, Hematocrit 42.5, Mean Corpuscular Volume 93, Mean Corpuscular Hemoglobin 30.4, Mean Corpuscular Hemoglobin Concent 32.5, Red Cell Distribution Width 14.4, Platelet Count 198, Mean Platelet Volume 5.1L, Neutrophils (%) (Auto) 80.0H, Lymphocytes (%) (Auto) 12.3L, Monocytes (%) (Auto) 6.7, Eosinophils (%) (Auto) 0.5, Basophils (%) (Auto) 0.6, Sodium Level 138, Potassium Level 4.1, Chloride Level 101, Carbon Dioxide Level 38H, Anion Gap -1L, Blood Urea Nitrogen 22H, Creatinine 1.4H, Estimat Glomerular Filtration Rate 50.4, Glucose Level 126H, Calcium Level 7.7L, Total Bilirubin 0.7, Aspartate Amino Transf (AST/SGOT) 50H, Alanine Aminotransferase (ALT/SGPT) 82H, Alkaline Phosphatase 123H, Pro-B-Type Natriuretic Peptide 32062I, Total Protein 6.2L, Albumin 2.2L, Globulin 4.0, Albumin/Globulin Ratio 0.6L 02/04/19 05:05: Phosphorus Level 2.9, Magnesium Level 2.0 Height (Feet): 5 Height (Inches): 6.00 Weight (Pounds): 141 General Appearance: no apparent distress EENT: normal ENT inspection Neck: supple Cardiovascular: normal rate Respiratory/Chest: decreased breath sounds Abdomen: normal bowel sounds, non tender, soft Extremities: non-tender Leonel Valderrama MD Feb 04, 2019 11:47
--- NOTE | 2019-02-04 13:14 | Diagnostic Imaging Report ---
Indication: Dyspnea Comparison: 02/02/2019 A single view chest radiograph was obtained. Findings: Patchy interstitial prominence demonstrated bilaterally. Heart size is stable. IMPRESSION: No change of the one-day
--- NOTE | 2019-02-04 13:22 | NUR ---
NURSE NOTES: SBP labile 70s-160s, Dopamine is being titrated accordingly. Will continue to monitor.
--- NOTE | 2019-02-04 13:22 | NUR ---
ST NOTES: MODIFIED BARIUM SWALLOW STUDY COMPLETED, FULL REPORT TO FOLLOW. PER RNSUZETTE WHO IS PRESENT, PATIENT REQUIRED DEEP NASAL SUCTION PRIOR TO STUDY. VITALS STABLE THROUGHOUT STUDY RR RRATE 18-19, 02 SATS 100 HR 80 ON 8 LITERS 02 ON VENTURIMASK. INITIAL IMPRESSIONS: SEVERE OROPHARYNGEAL DYSPHAGIA (LEVEL 1 SEVERE ON THE EHSAN DYSPHAGIA OUTCOME SEVERITY SCALE) DUE TO SENSORIMOTOR DEFICITS AND COGNITIVE-BEHAVIORAL AND/OR PSYCHIATRIC DEFICITS/ISSUES (REFUSES TO COMPLY WITH CUES TO SWALLOW AGAIN USE OTHER SWALLOW STRATEGIES/ASPIRATION PRECAUTIONS). LIMITED PO GIVEN DUE TO SEVERITY OF SWALLOWING PROBLEM, SIGNIFICANT ASPIRATION, POOR COMPLIANCE IN USING SWALLOW STRATEGIES, AND NEED FOR OROPHARYNGEAL SUCTION. SIGNIFICANT (>10%) SILENT AND LATER AUDIBLE ASPIRATION ON THIN LIQUIDS VIA STRAW (ASKED TO COMPLETE SINGLE BUT PATIENT IMPULSIVELY TOOK SEQUENTIAL SIPS) HE REFUSED CUP SIP. ASPIRATION DUE ON 2ND SWALLOW AND MOSTLY DUE TO SIGNIFICANT PHARYNGEAL DYSMOTILITY. REQUIRED MAX CUES TO SWALLOW AGAIN WHICH CLEARED HIS PYRIFORM SINUSES BETTER THAN THE VALLECULAE. NO ASPIRATION WITH THIN LIQUID TSP, HAD RISK MOSTLY AFTER THE SWALLOW DUE PHARYNGEAL DYSMOTILITY AND RESULTING RESIDUE (POOR SENSATION FOR RESIDUE). PATIENT ALSO TALKED WITH RESIDUE IN HIS THROAT. GIVEN TSP NECTAR THICK LIQUID, NO ASPIRATION BUT HAD DEEP AND SILENT TRACE LARYNGEAL PENETRATION TO THE LEVEL OF THE VOCAL FOLDS W/O EJECTION DURING AND THE SWALLOW DUE TO DELAYED SWALLOW LATE AND INCOMPLETE CLOSURE OF LARYNGEAL VESTIBULE (SPILLED FROM PYRIFORM SINUSES) AND REDUCED TONGUE BASE RETRACTION (RESIDUE SPILLED OVER FROM THE VALLECULAE INTO AIRWAY AND TO THE PYRIFORM SINUSES). REQUIRED PHARYNGEAL SUCTION OF MODERATE AMOUNTS OF VALLECULAR AND PYRIFORM SINUS RESIDUE BY RN PT COULD NOT EXPEL THE RESIDUE AND HE DID NOT OR WOULD NOT SWALLOW HARD TO CLEAR. 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 pharyngeal swallow (delayed or absent second swallow to clear pharyngeal > oral residue) Pharyngeal Impairment Laryngeal elevation (LE) Ant. hyoid excursion Epiglottic movement Laryng vestibular closure Pharyngeal stripping wave Pharyngoesophageal segment opening Tongue base retraction Pharyngeal residue Decreased pharyngeal sensation TRIAL TX: POOR COMPLIANCE WITH HARD SECOND SWALLOW, CHIN TUCK, AND OTHER STRATEGIES. RECOMMENDATIONS: CONTINUE WIT NPO STATUS AND ORAL CARE (NO PO MEDS EXPLORE ALTERNATIVES WITH PHARMACY) AND INSERT NGT IF POSSIBLE. CONSIDER LONGER TERM NONORAL FEEDING OPTIONS. SKILLED DYSPHAGIA MANAGEMENT AND TX (TRIAL TX ? COMPLIANCE IP AND AT SNF). WILL NEED A REPEAT MOD BARIUM SWALLOW STUDY AN OP AFTER TX AND TIME (2-4 WEEKS) PRIOR TO PO TRIALS AND CLEARANCE FOR MEALS. D/W RN, MD, AND PATIENT (WHO IS CONFUSED AND HAS PSYCH CHALLENGES - PSYCHIATRIST IS ON THE CASE PER RN) D/W DR ORTIZ AND GI DR HOUSE
--- NOTE | 2019-02-04 13:28 | Pulmonolgy Critical Care Note ---
Critical Care - Asmt/Plan Problems: (1) Acute respiratory failure (2) Septic shock (3) Systolic heart failure (4) Chronic kidney disease (5) Malignant neoplasm of right kidney (6) COPD (chronic obstructive pulmonary disease) (7) Schizophrenia Respiratory: monitor respiratory rate, adjust FIO2, CXR Cardiac: continue to monitor HR/BP Renal: F/U I&O, check electrolytes Infectious Disease: check cultures, continue antibiotics Gastrointestinal: continue feedings/current rate Endocrine: monitor blood sugar Hematologic: transfuse if hgb<8.5 Neurologic: PRN Ativan, keep patient comfortable Prophylaxis: Heparin Time Spent (Minutes): 40 Notes Reviewed: cardio, renal Discussed with: nurses, consultants, caseworker intakedigital content manager - Objective Last 24 Hour Vital Signs Date Time Temp Pulse Resp B/P (MAP) Pulse Ox O2 Delivery O2 Flow Rate FiO2 02/04/19 13:00 128 20 72/45 (54) 96 02/04/19 12:30 114 19 177/95 (122) 96 02/04/19 12:00 Venturi Mask 4.0 02/04/19 12:00 98.7 62 40 173/101 (125) 97 02/04/19 12:00 107 02/04/19 11:31 157/73 (101) 02/04/19 11:00 02/04/19 10:30 98 26 116/67 (83) 99 02/04/19 10:00 109 32 130/76 (94) 97 02/04/19 09:30 105 36 167/85 (112) 95 02/04/19 09:05 104/59 02/04/19 09:00 101 25 101/57 (72) 98 02/04/19 08:30 105 32 86/55 (65) 87 02/04/19 08:00 93 02/04/19 08:00 Venturi Mask 4.0 02/04/19 08:00 100.0 90 25 89/51 (64) 97 02/04/19 07:30 87 30 107/59 (75) 100 02/04/19 07:23 97 Venturi Mask 8.0 30 02/04/19 07:00 84 26 112/59 (76) 99 02/04/19 07:00 104/59 02/04/19 06:30 87 29 102/62 (75) 100 02/04/19 06:00 82 30 81/48 (59) 100 02/04/19 06:00 81/48 02/04/19 05:45 85 20 88/55 (66) 100 02/04/19 05:35 82 20 75/45 (55) 100 02/04/19 05:30 73 23 60/38 (45) 99 02/04/19 05:26 91 19 52/38 (43) 02/04/19 05:25 88 22 02/04/19 05:25 88 22 02/04/19 05:21 92 24 55/38 (44) 99 02/04/19 05:20 93 25 99 02/04/19 05:19 95 26 99 02/04/19 05:18 96 26 98 02/04/19 05:17 93 24 97 02/04/19 05:16 95 25 97 02/04/19 05:15 97 26 97 02/04/19 05:09 111 22 85/54 (64) 99 02/04/19 05:00 108 23 74/52 (59) 99 02/04/19 05:00 94/52 02/04/19 04:30 90 22 127/66 (86) 97 02/04/19 04:00 86/57 02/04/19 04:00 99.8 94 26 86/57 (67) 99 02/04/19 04:00 Venturi Mask 4.0 02/04/19 03:41 91 02/04/19 03:30 92 17 67/46 (53) 99 02/04/19 03:15 114 21 71/43 (52) 02/04/19 03:00 106 26 60/46 (51) 91 02/04/19 03:00 60/46 02/04/19 02:30 91 27 84/50 (61) 95 02/04/19 02:00 82 24 110/58 (75) 100 02/04/19 02:00 110/58 02/04/19 01:30 82 24 119/57 (77) 100 02/04/19 01:00 68 20 128/80 (96) 100 02/04/19 01:00 128/80 02/04/19 00:30 81 24 80/48 (59) 100 02/04/19 00:00 Simple Mask 8.0 02/04/19 00:00 87/48 02/04/19 00:00 98.8 76 24 87/48 (61) 100 02/03/19 23:30 81 25 78/46 (57) 100 02/03/19 23:10 83 02/03/19 23:00 86 23 78/44 (55) 100 02/03/19 23:00 78/44 02/03/19 22:30 97 20 73/47 (56) 100 02/03/19 22:00 98/56 02/03/19 22:00 97 25 98/56 (70) 99 02/03/19 21:30 105 20 147/76 (99) 99 02/03/19 21:00 134/74 02/03/19 21:00 72 23 134/74 (94) 100 02/03/19 20:30 99.0 71 21 87/50 (62) 99 02/03/19 20:00 72 17 96/54 (68) 99 02/03/19 20:00 Simple Mask 8.0 02/03/19 20:00 96/54 02/03/19 19:45 79 02/03/19 19:30 72 22 93/51 (65) 99 02/03/19 19:10 77 21 99 Cool Aerosol 8.0 30 02/03/19 19:10 99 Cool Aerosol 8.0 30 02/03/19 19:00 70 28 84/66 (72) 100 02/03/19 19:00 84/66 02/03/19 18:00 70 14 118/58 (78) 100 02/03/19 17:00 68 15 81/53 (62) 95 02/03/19 17:00 91/55 02/03/19 16:25 88 19 80/44 (56) 93 02/03/19 16:00 83 02/03/19 16:00 100.0 93 16 67/46 (53) 95 02/03/19 16:00 67/46 02/03/19 16:00 Simple Mask 8.0 02/03/19 15:30 87 25 79/57 (64) 93 02/03/19 15:00 73 24 82/45 (57) 94 02/03/19 15:00 82/45 02/03/19 14:30 77 21 88/44 (59) 100 02/03/19 14:00 79 22 84/51 (62) 100 02/03/19 14:00 84/51 02/03/19 13:30 72 23 101/54 (70) 100 Status: awake Condition: critical Neck: full ROM Lungs: chest wall tender Heart: HR/BP unstable Abdomen: non-tender Extremities: no C/C/E, edema Accucheck: 102 Critical Care - Subjective ROS Limited/Unobtainable: Yes Interval Events: had swallow study Condition: critical EKG Rhythm: Sinus Rhythm FI02: 30 Vent Support Breath Rate: 20 Vent Support Mode: CPAP Vent Tidal Volume: 500 Sputum Amount: Small PEEP: 5.0 PIP: 13 I&O: Intake and Output 02/03/19 02/04/19 19:00 07:00 Intake Total 417.876 ml 502.703 ml Output Total 865 ml 935 ml Balance -447.124 ml -432.297 ml IV Total 417.876 ml 452.703 ml Other 50 ml Output Urine Total 865 ml 935 ml CXR: no change ET-Tube: 7.5 ET Position: 26 Labs: Laboratory Tests Test 02/04/19 03:50 02/04/19 05:05 White Blood Count 14.7 K/UL (4.8-10.8) H Red Blood Count 4.54 M/UL (4.70-6.10) L Hemoglobin 13.8 G/DL (14.2-18.0) L Hematocrit 42.5 % (42.0-52.0) Mean Corpuscular Volume 93 FL (80-99) Mean Corpuscular Hemoglobin 30.4 PG (27.0-31.0) Mean Corpuscular Hemoglobin Concent 32.5 G/DL (32.0-36.0) Red Cell Distribution Width 14.4 % (11.6-14.8) Platelet Count 198 K/UL (150-450) Mean Platelet Volume 5.1 FL (6.5-10.1) L Neutrophils (%) (Auto) 80.0 % (45.0-75.0) H Lymphocytes (%) (Auto) 12.3 % (20.0-45.0) L Monocytes (%) (Auto) 6.7 % (1.0-10.0) Eosinophils (%) (Auto) 0.5 % (0.0-3.0) Basophils (%) (Auto) 0.6 % (0.0-2.0) Sodium Level 138 MMOL/L (136-145) Potassium Level 4.1 MMOL/L (3.5-5.1) Chloride Level 101 MMOL/L (98-107) Carbon Dioxide Level 38 MMOL/L (21-32) H Anion Gap -1 mmol/L (5-15) L Blood Urea Nitrogen 22 mg/dL (7-18) H Creatinine 1.4 MG/DL (0.55-1.30) H Estimat Glomerular Filtration Rate 50.4 mL/min (>60) Glucose Level 126 MG/DL (74-106) H Calcium Level 7.7 MG/DL (8.5-10.1) L Total Bilirubin 0.7 MG/DL (0.2-1.0) Aspartate Amino Transf (AST/SGOT) 50 U/L (15-37) H Alanine Aminotransferase (ALT/SGPT) 82 U/L (12-78) H Alkaline Phosphatase 123 U/L (46-116) H Pro-B-Type Natriuretic Peptide 71953 pg/mL (0-125) H Total Protein 6.2 G/DL (6.4-8.2) L Albumin 2.2 G/DL (3.4-5.0) L Globulin 4.0 g/dL Albumin/Globulin Ratio 0.6 (1.0-2.7) L Phosphorus Level 2.9 MG/DL (2.5-4.9) Magnesium Level 2.0 MG/DL (1.8-2.4) Ron Anthony MD Feb 04, 2019 13:28
--- NOTE | 2019-02-04 13:44 | General Progress Note ---
Assessment/Plan Problem List: (1) Renal failure (ARF), acute on chronic ICD Codes: N17.9 - Acute kidney failure, unspecified; N18.9 - Chronic kidney disease, unspecified SNOMED: 839330816 (2) Sepsis ICD Codes: A41.9 - Sepsis, unspecified organism SNOMED: 89329911 Qualifiers: Qualified Codes: A41.9 - Sepsis, unspecified organism (3) Malignant neoplasm of right kidney ICD Codes: C64.1 - Malignant neoplasm of right kidney, except renal pelvis SNOMED: 647401102 (4) Acute respiratory failure ICD Codes: J96.00 - Acute respiratory failure, unspecified whether with hypoxia or hypercapnia SNOMED: 52327611 (5) PVD (peripheral vascular disease) ICD Codes: I73.9 - Peripheral vascular disease, unspecified SNOMED: 978288890 Status: unchanged Assessment/Plan: vent abx wound care cbc bmp am ltach eval Subjective Constitutional: Reports: weakness Allergies: Coded Allergies: No Known Allergies (Unverified , 01/24/19) All Systems: reviewed and negative except above Subjective o2 mask in icu Objective Last 24 Hour Vital Signs Date Time Temp Pulse Resp B/P (MAP) Pulse Ox O2 Delivery O2 Flow Rate FiO2 02/04/19 13:00 128 20 72/45 (54) 96 02/04/19 12:30 114 19 177/95 (122) 96 02/04/19 12:00 Venturi Mask 4.0 02/04/19 12:00 98.7 62 40 173/101 (125) 97 02/04/19 12:00 107 02/04/19 11:31 157/73 (101) 02/04/19 11:00 02/04/19 10:30 98 26 116/67 (83) 99 02/04/19 10:00 109 32 130/76 (94) 97 02/04/19 09:30 105 36 167/85 (112) 95 02/04/19 09:05 104/59 02/04/19 09:00 101 25 101/57 (72) 98 02/04/19 08:30 105 32 86/55 (65) 87 02/04/19 08:00 93 02/04/19 08:00 Venturi Mask 4.0 02/04/19 08:00 100.0 90 25 89/51 (64) 97 02/04/19 07:30 87 30 107/59 (75) 100 02/04/19 07:23 97 Venturi Mask 8.0 30 02/04/19 07:00 84 26 112/59 (76) 99 02/04/19 07:00 104/59 02/04/19 06:30 87 29 102/62 (75) 100 02/04/19 06:00 82 30 81/48 (59) 100 02/04/19 06:00 81/48 02/04/19 05:45 85 20 88/55 (66) 100 02/04/19 05:35 82 20 75/45 (55) 100 02/04/19 05:30 73 23 60/38 (45) 99 02/04/19 05:26 91 19 52/38 (43) 02/04/19 05:25 88 22 02/04/19 05:25 88 22 02/04/19 05:21 92 24 55/38 (44) 99 02/04/19 05:20 93 25 99 02/04/19 05:19 95 26 99 02/04/19 05:18 96 26 98 02/04/19 05:17 93 24 97 02/04/19 05:16 95 25 97 02/04/19 05:15 97 26 97 02/04/19 05:09 111 22 85/54 (64) 99 02/04/19 05:00 108 23 74/52 (59) 99 02/04/19 05:00 94/52 02/04/19 04:30 90 22 127/66 (86) 97 02/04/19 04:00 86/57 02/04/19 04:00 99.8 94 26 86/57 (67) 99 02/04/19 04:00 Venturi Mask 4.0 02/04/19 03:41 91 02/04/19 03:30 92 17 67/46 (53) 99 02/04/19 03:15 114 21 71/43 (52) 02/04/19 03:00 106 26 60/46 (51) 91 02/04/19 03:00 60/46 02/04/19 02:30 91 27 84/50 (61) 95 02/04/19 02:00 82 24 110/58 (75) 100 02/04/19 02:00 110/58 02/04/19 01:30 82 24 119/57 (77) 100 02/04/19 01:00 68 20 128/80 (96) 100 02/04/19 01:00 128/80 02/04/19 00:30 81 24 80/48 (59) 100 02/04/19 00:00 Simple Mask 8.0 02/04/19 00:00 87/48 02/04/19 00:00 98.8 76 24 87/48 (61) 100 02/03/19 23:30 81 25 78/46 (57) 100 02/03/19 23:10 83 02/03/19 23:00 86 23 78/44 (55) 100 02/03/19 23:00 78/44 02/03/19 22:30 97 20 73/47 (56) 100 02/03/19 22:00 98/56 02/03/19 22:00 97 25 98/56 (70) 99 02/03/19 21:30 105 20 147/76 (99) 99 02/03/19 21:00 134/74 02/03/19 21:00 72 23 134/74 (94) 100 02/03/19 20:30 99.0 71 21 87/50 (62) 99 02/03/19 20:00 72 17 96/54 (68) 99 02/03/19 20:00 Simple Mask 8.0 02/03/19 20:00 96/54 02/03/19 19:45 79 02/03/19 19:30 72 22 93/51 (65) 99 02/03/19 19:10 77 21 99 Cool Aerosol 8.0 30 02/03/19 19:10 99 Cool Aerosol 8.0 30 02/03/19 19:00 70 28 84/66 (72) 100 02/03/19 19:00 84/66 02/03/19 18:00 70 14 118/58 (78) 100 02/03/19 17:00 68 15 81/53 (62) 95 02/03/19 17:00 91/55 02/03/19 16:25 88 19 80/44 (56) 93 02/03/19 16:00 83 02/03/19 16:00 100.0 93 16 67/46 (53) 95 02/03/19 16:00 67/46 02/03/19 16:00 Simple Mask 8.0 02/03/19 15:30 87 25 79/57 (64) 93 02/03/19 15:00 73 24 82/45 (57) 94 02/03/19 15:00 82/45 02/03/19 14:30 77 21 88/44 (59) 100 02/03/19 14:00 79 22 84/51 (62) 100 02/03/19 14:00 84/51 Intake and Output 02/03/19 02/04/19 19:00 07:00 Intake Total 417.876 ml 502.703 ml Output Total 865 ml 935 ml Balance -447.124 ml -432.297 ml IV Total 417.876 ml 452.703 ml Other 50 ml Output Urine Total 865 ml 935 ml Laboratory Tests 02/04/19 03:50: White Blood Count 14.7H, Red Blood Count 4.54L, Hemoglobin 13.8L, Hematocrit 42.5, Mean Corpuscular Volume 93, Mean Corpuscular Hemoglobin 30.4, Mean Corpuscular Hemoglobin Concent 32.5, Red Cell Distribution Width 14.4, Platelet Count 198, Mean Platelet Volume 5.1L, Neutrophils (%) (Auto) 80.0H, Lymphocytes (%) (Auto) 12.3L, Monocytes (%) (Auto) 6.7, Eosinophils (%) (Auto) 0.5, Basophils (%) (Auto) 0.6, Sodium Level 138, Potassium Level 4.1, Chloride Level 101, Carbon Dioxide Level 38H, Anion Gap -1L, Blood Urea Nitrogen 22H, Creatinine 1.4H, Estimat Glomerular Filtration Rate 50.4, Glucose Level 126H, Calcium Level 7.7L, Total Bilirubin 0.7, Aspartate Amino Transf (AST/SGOT) 50H, Alanine Aminotransferase (ALT/SGPT) 82H, Alkaline Phosphatase 123H, Pro-B-Type Natriuretic Peptide 21658X, Total Protein 6.2L, Albumin 2.2L, Globulin 4.0, Albumin/Globulin Ratio 0.6L 02/04/19 05:05: Phosphorus Level 2.9, Magnesium Level 2.0 Height (Feet): 5 Height (Inches): 6.00 Weight (Pounds): 141 General Appearance: lethargic EENT: normal ENT inspection Neck: normal alignment Cardiovascular: normal peripheral pulses, normal rate, regular rhythm Respiratory/Chest: chest wall non-tender, lungs clear, normal breath sounds Abdomen: normal bowel sounds, non tender, soft Extremities: normal inspection Edema: no edema noted Arm (L), no edema noted Arm (R), no edema noted Leg (L), no edema noted Leg (R), no edema noted Pedal (L), no edema noted Pedal (R), no edema noted Generalized Neurologic: motor weakness Skin: normal pigmentation, warm/dry Corey Short DO Feb 04, 2019 13:44
--- NOTE | 2019-02-04 13:54 | Infectious Diseases Prog Note ---
Assessment/Plan Assessment/Plan 68yo gentleman with PMH below presents with fever(100.1 is highest recorded in transfer packet) and worsened congestion from SNF. In the ED, pt was placed on oxygen then BiPAP but ultimately intubated. ID consulted for antimicrobial recommendation. Tmax 100.1 at custodial, SP Leukocytosis, hydrocortisone 01/25-02/02 Lactic acidosis, SP Shock, was on levophed, titrated off, but now on dopamine Likely MRSA PNA COPD? CHF? thick secretions per nurse flu swab negative 01/24 CXR: Extensive opacities within upper lobes demonstrated. In addition there is generalized interstitial densities throughout both lung craig. 01/25 CXR: Bilateral infiltrates appear fairly extensive but unchanged. TTE with EF 30-35% 01/25 sputum cx: MRSA 01/25 urine legionella ag: P 01/27 CXR: Extensive infiltrates bilaterally. Some degree of a superimposed interstitial edema has improved since the last exam. Endotracheal tube and NG tube remain in satisfactory in position. 01/28 CXR: Extensive bilateral infiltrates are again demonstrated without change. Tubes and lines are stable. 01/28 sputum cx: MRSA 01/30 CXR: 1. Overall similar patchy opacities in the lungs, most prominently in the right upper lung and right mid and lower lung. Probable small bilateral pleural effusions. 2. Endotracheal tube terminates in the region of the lower thoracic aorta above the cristina. Enteric tube courses past the diaphragm and out of the [id number], but the sidehole is seen near the GE junction. 02/02 CXR: Interim removal of previously demonstrated nasogastric tube and endotracheal tube. Right arm PICC remains. Bilateral fairly extensive interstitial opacities persist, unchanged. There is a small left pleural effusion again demonstrated 02/04 CXR: Patchy interstitial prominence demonstrated bilaterally. Heart size is stable. Possible UTI? new mcmahon placed in ED 01/25 UA 15-20 WBC 01/25 Ucx: NG Renal US: Nonobstructive stones in the left kidney demonstrated. Bilateral renal cysts. Limited evaluation due to body habitus. r/o bacteremia 01/25 BCx: ngtd 01/31 bcx: ngtd Failed Swallow evaluation 02/04 at risk for aspiration pneumonitis and pneumonia No diarrhea HIV test negative MRSA screen positive RLE skin graft b/l LE heel pressure ulcers and sacral ulcer Tobacco abuse COPD HTN Kidney cancer OA CKD Anemia Schizophrenia PVD CHF Plan: Linezolid #5/10 02/01 SP Azithromycin #5/5 for atypicals 01/31 Ertapenem #8 01/31 DC Amikacin and vancomycin #6 SP cefepime #1 SP flagyl #1 SP vancomycin #1 f/u repeat bcx aspiration precaution, elevate HOB, oral care, frequent suction pulmonary toilet, chest PT DVT PPX discussed with RN Thank you for this consult. [facility] will continue to follow the patient with you. Subjective Allergies: Coded Allergies: No Known Allergies (Unverified , 01/24/19) Subjective Afebrile. WBC slowly downtrending. Very sensitive to dopamine and HR fluctuates. Still on 4L. Slightly confused but denies sob, chest pain, abdominal pain, chills. Objective Vital Signs Last 24 Hour Vital Signs Date Time Temp Pulse Resp B/P (MAP) Pulse Ox O2 Delivery O2 Flow Rate FiO2 02/04/19 13:00 128 20 72/45 (54) 96 02/04/19 12:30 114 19 177/95 (122) 96 02/04/19 12:00 Venturi Mask 4.0 02/04/19 12:00 98.7 62 40 173/101 (125) 97 02/04/19 12:00 107 02/04/19 11:31 157/73 (101) 02/04/19 11:00 02/04/19 10:30 98 26 116/67 (83) 99 02/04/19 10:00 109 32 130/76 (94) 97 02/04/19 09:30 105 36 167/85 (112) 95 02/04/19 09:05 104/59 02/04/19 09:00 101 25 101/57 (72) 98 02/04/19 08:30 105 32 86/55 (65) 87 02/04/19 08:00 93 02/04/19 08:00 Venturi Mask 4.0 02/04/19 08:00 100.0 90 25 89/51 (64) 97 02/04/19 07:30 87 30 107/59 (75) 100 02/04/19 07:23 97 Venturi Mask 8.0 30 02/04/19 07:00 84 26 112/59 (76) 99 02/04/19 07:00 104/59 02/04/19 06:30 87 29 102/62 (75) 100 02/04/19 06:00 82 30 81/48 (59) 100 02/04/19 06:00 81/48 02/04/19 05:45 85 20 88/55 (66) 100 02/04/19 05:35 82 20 75/45 (55) 100 02/04/19 05:30 73 23 60/38 (45) 99 02/04/19 05:26 91 19 52/38 (43) 02/04/19 05:25 88 22 02/04/19 05:25 88 22 02/04/19 05:21 92 24 55/38 (44) 99 02/04/19 05:20 93 25 99 02/04/19 05:19 95 26 99 02/04/19 05:18 96 26 98 02/04/19 05:17 93 24 97 02/04/19 05:16 95 25 97 02/04/19 05:15 97 26 97 02/04/19 05:09 111 22 85/54 (64) 99 02/04/19 05:00 108 23 74/52 (59) 99 02/04/19 05:00 94/52 02/04/19 04:30 90 22 127/66 (86) 97 02/04/19 04:00 86/57 02/04/19 04:00 99.8 94 26 86/57 (67) 99 02/04/19 04:00 Venturi Mask 4.0 02/04/19 03:41 91 02/04/19 03:30 92 17 67/46 (53) 99 02/04/19 03:15 114 21 71/43 (52) 02/04/19 03:00 106 26 60/46 (51) 91 02/04/19 03:00 60/46 02/04/19 02:30 91 27 84/50 (61) 95 02/04/19 02:00 82 24 110/58 (75) 100 02/04/19 02:00 110/58 02/04/19 01:30 82 24 119/57 (77) 100 02/04/19 01:00 68 20 128/80 (96) 100 02/04/19 01:00 128/80 02/04/19 00:30 81 24 80/48 (59) 100 02/04/19 00:00 Simple Mask 8.0 02/04/19 00:00 87/48 02/04/19 00:00 98.8 76 24 87/48 (61) 100 02/03/19 23:30 81 25 78/46 (57) 100 02/03/19 23:10 83 02/03/19 23:00 86 23 78/44 (55) 100 02/03/19 23:00 78/44 02/03/19 22:30 97 20 73/47 (56) 100 02/03/19 22:00 98/56 02/03/19 22:00 97 25 98/56 (70) 99 02/03/19 21:30 105 20 147/76 (99) 99 02/03/19 21:00 134/74 02/03/19 21:00 72 23 134/74 (94) 100 02/03/19 20:30 99.0 71 21 87/50 (62) 99 02/03/19 20:00 72 17 96/54 (68) 99 02/03/19 20:00 Simple Mask 8.0 02/03/19 20:00 96/54 02/03/19 19:45 79 02/03/19 19:30 72 22 93/51 (65) 99 02/03/19 19:10 77 21 99 Cool Aerosol 8.0 30 02/03/19 19:10 99 Cool Aerosol 8.0 30 02/03/19 19:00 70 28 84/66 (72) 100 02/03/19 19:00 84/66 02/03/19 18:00 70 14 118/58 (78) 100 02/03/19 17:00 68 15 81/53 (62) 95 02/03/19 17:00 91/55 02/03/19 16:25 88 19 80/44 (56) 93 02/03/19 16:00 83 02/03/19 16:00 100.0 93 16 67/46 (53) 95 02/03/19 16:00 67/46 02/03/19 16:00 Simple Mask 8.0 02/03/19 15:30 87 25 79/57 (64) 93 02/03/19 15:00 73 24 82/45 (57) 94 02/03/19 15:00 82/45 02/03/19 14:30 77 21 88/44 (59) 100 02/03/19 14:00 79 22 84/51 (62) 100 02/03/19 14:00 84/51 Height (Feet): 5 Height (Inches): 6.00 Weight (Pounds): 141 Objective Gen: NAD HEENT: anicteric sclera. CV: RRR. Resp: coarse. equal chest rise. Abd: soft. normoactive Bs+ Neuro: awake. appropriate Skin: RLE skin graft Laboratory Tests Test 02/04/19 03:50 02/04/19 05:05 White Blood Count 14.7 K/UL (4.8-10.8) H Red Blood Count 4.54 M/UL (4.70-6.10) L Hemoglobin 13.8 G/DL (14.2-18.0) L Hematocrit 42.5 % (42.0-52.0) Mean Corpuscular Volume 93 FL (80-99) Mean Corpuscular Hemoglobin 30.4 PG (27.0-31.0) Mean Corpuscular Hemoglobin Concent 32.5 G/DL (32.0-36.0) Red Cell Distribution Width 14.4 % (11.6-14.8) Platelet Count 198 K/UL (150-450) Mean Platelet Volume 5.1 FL (6.5-10.1) L Neutrophils (%) (Auto) 80.0 % (45.0-75.0) H Lymphocytes (%) (Auto) 12.3 % (20.0-45.0) L Monocytes (%) (Auto) 6.7 % (1.0-10.0) Eosinophils (%) (Auto) 0.5 % (0.0-3.0) Basophils (%) (Auto) 0.6 % (0.0-2.0) Sodium Level 138 MMOL/L (136-145) Potassium Level 4.1 MMOL/L (3.5-5.1) Chloride Level 101 MMOL/L (98-107) Carbon Dioxide Level 38 MMOL/L (21-32) H Anion Gap -1 mmol/L (5-15) L Blood Urea Nitrogen 22 mg/dL (7-18) H Creatinine 1.4 MG/DL (0.55-1.30) H Estimat Glomerular Filtration Rate 50.4 mL/min (>60) Glucose Level 126 MG/DL (74-106) H Calcium Level 7.7 MG/DL (8.5-10.1) L Total Bilirubin 0.7 MG/DL (0.2-1.0) Aspartate Amino Transf (AST/SGOT) 50 U/L (15-37) H Alanine Aminotransferase (ALT/SGPT) 82 U/L (12-78) H Alkaline Phosphatase 123 U/L (46-116) H Pro-B-Type Natriuretic Peptide 57323 pg/mL (0-125) H Total Protein 6.2 G/DL (6.4-8.2) L Albumin 2.2 G/DL (3.4-5.0) L Globulin 4.0 g/dL Albumin/Globulin Ratio 0.6 (1.0-2.7) L Phosphorus Level 2.9 MG/DL (2.5-4.9) Magnesium Level 2.0 MG/DL (1.8-2.4) Current Medications Medications (Trade) Dose Ordered Sig/Ricardo Route PRN Reason Start Time Stop Time Status Last Admin Dose Admin Acetaminophen (Tylenol) 650 mg Q4H PRN ORAL fever 01/24/19 20:00 02/23/19 19:59 Ascorbic Acid (Vitamin C) 250 mg TWICE A DAY ORAL 01/27/19 18:00 02/26/19 17:59 02/04/19 08:44 Barium Sulfate (Varibar Honey) 250 ml NOW PRN RAD 02/04/19 09:30 02/07/19 09:17 Barium Sulfate (Varibar Tarkio) 240 ml NOW PRN RAD 02/04/19 09:30 02/07/19 09:17 Barium Sulfate (Varibar Pudding) 230 ml NOW PRN RAD 02/04/19 09:30 02/07/19 09:17 Chlorhexidine Gluconate (Roseanna-Hex 2%) 1 applic DAILY@2000 TOPIC 01/25/19 20:00 02/24/19 19:59 02/03/19 19:37 Dextrose (Dextrose 50%) 25 ml Q30M PRN IV Hypoglycemia 01/25/19 19:00 02/24/19 18:59 Dextrose (Dextrose 50%) 50 ml Q30M PRN IV Hypoglycemia 01/25/19 19:00 02/24/19 18:59 Dopamine HCl/ Dextrose 250 ml @ 0 mls/hr Q24H IV 01/28/19 10:45 02/27/19 10:44 02/04/19 09:05 Heparin Sodium (Porcine) (Heparin 5000 units/ml) 5,000 units EVERY 12 HOURS SUBQ 01/24/19 21:00 02/23/19 20:59 02/04/19 08:47 Insulin Aspart (NovoLOG) EVERY 6 HOURS SUBQ 01/26/19 00:00 02/25/19 00:00 02/03/19 17:19 Linezolid 300 ml @ 300 mls/hr Q12HR IVPB 01/31/19 09:00 02/08/19 23:59 02/04/19 08:42 Lorazepam (Ativan 2mg/ml 1ml) 2 mg Q2H PRN IV For Anxiety 01/30/19 08:00 02/06/19 07:59 Memantine (Namenda) 5 mg DAILY ORAL 02/04/19 09:00 03/06/19 08:59 02/04/19 08:43 Midodrine (Pro-Amatine) 10 mg THREE TIMES A DAY NG 01/30/19 13:00 03/01/19 12:59 02/04/19 08:43 Pantoprazole (Protonix) 40 mg DAILY IVP 01/25/19 09:00 02/24/19 08:59 02/04/19 08:44 Polyethylene Glycol (Miralax) 17 gm DAILYPRN PRN ORAL Constipation 01/24/19 20:00 02/23/19 19:59 02/01/19 05:47 Potassium Chloride (K-Dur) 40 meq TWICE A DAY NG 01/27/19 11:45 02/26/19 11:44 02/04/19 08:44 Quetiapine Fumarate (SEROqueL) 25 mg QHS ORAL 02/03/19 21:00 03/05/19 20:59 02/03/19 20:36 Theophylline (Saw-Dur) 100 mg EVERY 12 HOURS ORAL 02/03/19 13:15 03/05/19 13:14 02/04/19 08:43 Pili Lenz MD Feb 04, 2019 13:54
--- NOTE | 2019-02-04 14:42 | Nephrology Progress Note ---
Assessment/Plan Problem List: (1) Renal failure (ARF), acute on chronic (2) Acute respiratory failure (3) Septic shock (4) Bradyarrhythmia Assessment Renal failure- Likely acute on Chronic- Cr lower Acute respiratory failure- intubated on Vent Septic Shock- On pressors COPD PVD Schizophrenia Plan Now ( 02/02) extubated- tolerating well pulmonary support stop IV fluid renal dose dopamin for low HR K supplement down on hydration One dose IV Lasix mag and Phos and K supplement as needed 2D Echo Low Ej Fx - Global Hypokinesis Avoid nephrotoxics afterload reduction monitor renal parameters urine studies ADRIAN IMPRESSION: Nonobstructive stones in the left kidney demonstrated. Bilateral renal cysts. Subjective ROS Limited/Unobtainable: No Constitutional: Reports: malaise Objective Objective Last 24 Hour Vital Signs Date Time Temp Pulse Resp B/P (MAP) Pulse Ox O2 Delivery O2 Flow Rate FiO2 02/04/19 14:00 94 29 93/60 (71) 99 02/04/19 13:30 93 24 147/88 (107) 98 02/04/19 13:00 128 20 72/45 (54) 96 02/04/19 12:30 114 19 177/95 (122) 96 02/04/19 12:00 Venturi Mask 4.0 02/04/19 12:00 98.7 62 40 173/101 (125) 97 02/04/19 12:00 107 02/04/19 11:31 157/73 (101) 02/04/19 11:00 02/04/19 10:30 98 26 116/67 (83) 99 02/04/19 10:00 109 32 130/76 (94) 97 02/04/19 09:30 105 36 167/85 (112) 95 02/04/19 09:05 104/59 02/04/19 09:00 101 25 101/57 (72) 98 02/04/19 08:30 105 32 86/55 (65) 87 02/04/19 08:00 93 02/04/19 08:00 Venturi Mask 4.0 02/04/19 08:00 100.0 90 25 89/51 (64) 97 02/04/19 07:30 87 30 107/59 (75) 100 02/04/19 07:23 97 Venturi Mask 8.0 30 02/04/19 07:00 84 26 112/59 (76) 99 02/04/19 07:00 104/59 02/04/19 06:30 87 29 102/62 (75) 100 02/04/19 06:00 82 30 81/48 (59) 100 02/04/19 06:00 81/48 02/04/19 05:45 85 20 88/55 (66) 100 02/04/19 05:35 82 20 75/45 (55) 100 02/04/19 05:30 73 23 60/38 (45) 99 02/04/19 05:26 91 19 52/38 (43) 02/04/19 05:25 88 22 02/04/19 05:25 88 22 02/04/19 05:21 92 24 55/38 (44) 99 02/04/19 05:20 93 25 99 02/04/19 05:19 95 26 99 02/04/19 05:18 96 26 98 02/04/19 05:17 93 24 97 02/04/19 05:16 95 25 97 02/04/19 05:15 97 26 97 02/04/19 05:09 111 22 85/54 (64) 99 02/04/19 05:00 108 23 74/52 (59) 99 02/04/19 05:00 94/52 02/04/19 04:30 90 22 127/66 (86) 97 02/04/19 04:00 86/57 02/04/19 04:00 99.8 94 26 86/57 (67) 99 02/04/19 04:00 Venturi Mask 4.0 02/04/19 03:41 91 02/04/19 03:30 92 17 67/46 (53) 99 02/04/19 03:15 114 21 71/43 (52) 02/04/19 03:00 106 26 60/46 (51) 91 02/04/19 03:00 60/46 02/04/19 02:30 91 27 84/50 (61) 95 02/04/19 02:00 82 24 110/58 (75) 100 02/04/19 02:00 110/58 02/04/19 01:30 82 24 119/57 (77) 100 02/04/19 01:00 68 20 128/80 (96) 100 02/04/19 01:00 128/80 02/04/19 00:30 81 24 80/48 (59) 100 02/04/19 00:00 Simple Mask 8.0 02/04/19 00:00 87/48 02/04/19 00:00 98.8 76 24 87/48 (61) 100 02/03/19 23:30 81 25 78/46 (57) 100 02/03/19 23:10 83 02/03/19 23:00 86 23 78/44 (55) 100 02/03/19 23:00 78/44 02/03/19 22:30 97 20 73/47 (56) 100 02/03/19 22:00 98/56 02/03/19 22:00 97 25 98/56 (70) 99 02/03/19 21:30 105 20 147/76 (99) 99 02/03/19 21:00 134/74 02/03/19 21:00 72 23 134/74 (94) 100 02/03/19 20:30 99.0 71 21 87/50 (62) 99 02/03/19 20:00 72 17 96/54 (68) 99 02/03/19 20:00 Simple Mask 8.0 02/03/19 20:00 96/54 02/03/19 19:45 79 02/03/19 19:30 72 22 93/51 (65) 99 02/03/19 19:10 77 21 99 Cool Aerosol 8.0 30 02/03/19 19:10 99 Cool Aerosol 8.0 30 02/03/19 19:00 70 28 84/66 (72) 100 02/03/19 19:00 84/66 02/03/19 18:00 70 14 118/58 (78) 100 02/03/19 17:00 68 15 81/53 (62) 95 02/03/19 17:00 91/55 02/03/19 16:25 88 19 80/44 (56) 93 02/03/19 16:00 83 02/03/19 16:00 100.0 93 16 67/46 (53) 95 02/03/19 16:00 67/46 02/03/19 16:00 Simple Mask 8.0 02/03/19 15:30 87 25 79/57 (64) 93 02/03/19 15:00 73 24 82/45 (57) 94 02/03/19 15:00 82/45 Intake and Output 02/03/19 02/04/19 19:00 07:00 Intake Total 417.876 ml 502.703 ml Output Total 865 ml 935 ml Balance -447.124 ml -432.297 ml IV Total 417.876 ml 452.703 ml Other 50 ml Output Urine Total 865 ml 935 ml Laboratory Tests 02/04/19 03:50: White Blood Count 14.7H, Red Blood Count 4.54L, Hemoglobin 13.8L, Hematocrit 42.5, Mean Corpuscular Volume 93, Mean Corpuscular Hemoglobin 30.4, Mean Corpuscular Hemoglobin Concent 32.5, Red Cell Distribution Width 14.4, Platelet Count 198, Mean Platelet Volume 5.1L, Neutrophils (%) (Auto) 80.0H, Lymphocytes (%) (Auto) 12.3L, Monocytes (%) (Auto) 6.7, Eosinophils (%) (Auto) 0.5, Basophils (%) (Auto) 0.6, Sodium Level 138, Potassium Level 4.1, Chloride Level 101, Carbon Dioxide Level 38H, Anion Gap -1L, Blood Urea Nitrogen 22H, Creatinine 1.4H, Estimat Glomerular Filtration Rate 50.4, Glucose Level 126H, Calcium Level 7.7L, Total Bilirubin 0.7, Aspartate Amino Transf (AST/SGOT) 50H, Alanine Aminotransferase (ALT/SGPT) 82H, Alkaline Phosphatase 123H, Pro-B-Type Natriuretic Peptide 19000I, Total Protein 6.2L, Albumin 2.2L, Globulin 4.0, Albumin/Globulin Ratio 0.6L 02/04/19 05:05: Phosphorus Level 2.9, Magnesium Level 2.0 Height (Feet): 5 Height (Inches): 6.00 Weight (Pounds): 141 Cardiovascular: other - variable Respiratory/Chest: decreased breath sounds Abdomen: distended Bienvenido Gonzalez MD Feb 04, 2019 14:42
--- NOTE | 2019-02-04 15:30 | NUR ---
NURSE NOTES: Pt turned and repositioned. Pt suctioned orally. No acute distress. Will continue to monitor.
--- NOTE | 2019-02-04 17:11 | NUR ---
NURSE NOTES: Attempting to titrate down levophed, BP drops to 70s. Dr Gonzalez called and he said to consult with Dr Helm, awaiting call back. Will continue to monitor.
--- NOTE | 2019-02-04 17:15 | Progress Note ---
DATE: 02/04/2019 SUBJECTIVE: This is a 68-year-old male patient with sepsis and dehydration. He is a 68-year-old male patient. He is confused, disorganized with no logical plan for his own self-care and he has low energy, poor appetite, loss of interest in activity. That is why, he does require daily psychiatric consultation at this time. The patient is a 68-year-old male patient. He has sepsis, tachycardia, problems and respiratory failure. The patient is currently in the ICU with altered mental status, confusion, and decline in cognition below his baseline. That is why, his attending has requested daily psychiatric consultation. MENTAL STATUS EXAMINATION: This is a 68-year-old male. Appearance is disheveled. Attitude, irritable and agitated. Affect, guarded and restricted. Intellect poor. Mood, depressed and anxious. Motor activity, psychomotor agitation. Insight and judgment is poor. DIAGNOSIS: Paranoid schizophrenia with acute exacerbation. PLAN: My plan for this patient is I am going to treat this patient with psychotropic medication regimen consisting of Seroquel 25 mg at bedtime and Ativan 2 mg IV every 2 hours p.r.n. anxiety and agitation and encouraged him to interact appropriately with staff. The patient is on Namenda 5 mg daily. A 20 minutes of reality-based supportive psychotherapy. Chart reviewed, discussed with staff. Seen and assessed at bedside. A 20 minutes of reality-based supportive psychotherapy provided. Stacie Paige M.D. DR: WANDA JOB#: [id number] CC:
--- NOTE | 2019-02-04 17:51 | Surgery Progress Note ---
Surgery Progress Note Subjective Additional Comments more comfortable no n/v/fc labs noted exam stable Objective Last 24 Hour Vital Signs Date Time Temp Pulse Resp B/P (MAP) Pulse Ox O2 Delivery O2 Flow Rate FiO2 02/04/19 17:00 81 30 135/71 (92) 99 02/04/19 16:00 98.4 90 20 121/74 (90) 99 02/04/19 16:00 Venturi Mask 4.0 02/04/19 16:00 91 02/04/19 15:30 94 25 146/76 (99) 99 02/04/19 15:00 91 31 123/67 (85) 98 02/04/19 14:30 94 39 144/71 (95) 99 02/04/19 14:00 94 29 93/60 (71) 99 02/04/19 13:30 93 24 147/88 (107) 98 02/04/19 13:00 128 20 72/45 (54) 96 02/04/19 12:30 114 19 177/95 (122) 96 02/04/19 12:00 Venturi Mask 4.0 02/04/19 12:00 98.7 62 40 173/101 (125) 97 02/04/19 12:00 107 02/04/19 11:31 157/73 (101) 02/04/19 11:00 02/04/19 10:30 98 26 116/67 (83) 99 02/04/19 10:00 109 32 130/76 (94) 97 02/04/19 09:30 105 36 167/85 (112) 95 02/04/19 09:05 104/59 02/04/19 09:00 101 25 101/57 (72) 98 02/04/19 08:30 105 32 86/55 (65) 87 02/04/19 08:00 93 02/04/19 08:00 Venturi Mask 4.0 02/04/19 08:00 100.0 90 25 89/51 (64) 97 02/04/19 07:30 87 30 107/59 (75) 100 02/04/19 07:23 97 Venturi Mask 8.0 30 02/04/19 07:00 84 26 112/59 (76) 99 02/04/19 07:00 104/59 02/04/19 06:30 87 29 102/62 (75) 100 02/04/19 06:00 82 30 81/48 (59) 100 02/04/19 06:00 81/48 02/04/19 05:45 85 20 88/55 (66) 100 02/04/19 05:35 82 20 75/45 (55) 100 02/04/19 05:30 73 23 60/38 (45) 99 02/04/19 05:26 91 19 52/38 (43) 02/04/19 05:25 88 22 02/04/19 05:25 88 22 02/04/19 05:21 92 24 55/38 (44) 99 02/04/19 05:20 93 25 99 02/04/19 05:19 95 26 99 02/04/19 05:18 96 26 98 02/04/19 05:17 93 24 97 02/04/19 05:16 95 25 97 02/04/19 05:15 97 26 97 02/04/19 05:09 111 22 85/54 (64) 99 02/04/19 05:00 108 23 74/52 (59) 99 02/04/19 05:00 94/52 02/04/19 04:30 90 22 127/66 (86) 97 02/04/19 04:00 86/57 02/04/19 04:00 99.8 94 26 86/57 (67) 99 02/04/19 04:00 Venturi Mask 4.0 02/04/19 03:41 91 02/04/19 03:30 92 17 67/46 (53) 99 02/04/19 03:15 114 21 71/43 (52) 02/04/19 03:00 106 26 60/46 (51) 91 02/04/19 03:00 60/46 02/04/19 02:30 91 27 84/50 (61) 95 02/04/19 02:00 82 24 110/58 (75) 100 02/04/19 02:00 110/58 02/04/19 01:30 82 24 119/57 (77) 100 02/04/19 01:00 68 20 128/80 (96) 100 02/04/19 01:00 128/80 02/04/19 00:30 81 24 80/48 (59) 100 02/04/19 00:00 Simple Mask 8.0 02/04/19 00:00 87/48 02/04/19 00:00 98.8 76 24 87/48 (61) 100 02/03/19 23:30 81 25 78/46 (57) 100 02/03/19 23:10 83 02/03/19 23:00 86 23 78/44 (55) 100 02/03/19 23:00 78/44 02/03/19 22:30 97 20 73/47 (56) 100 02/03/19 22:00 98/56 02/03/19 22:00 97 25 98/56 (70) 99 02/03/19 21:30 105 20 147/76 (99) 99 02/03/19 21:00 134/74 02/03/19 21:00 72 23 134/74 (94) 100 02/03/19 20:30 99.0 71 21 87/50 (62) 99 02/03/19 20:00 72 17 96/54 (68) 99 02/03/19 20:00 Simple Mask 8.0 02/03/19 20:00 96/54 02/03/19 19:45 79 02/03/19 19:30 72 22 93/51 (65) 99 02/03/19 19:10 77 21 99 Cool Aerosol 8.0 30 02/03/19 19:10 99 Cool Aerosol 8.0 30 02/03/19 19:00 70 28 84/66 (72) 100 02/03/19 19:00 84/66 02/03/19 18:00 70 14 118/58 (78) 100 I&O Intake and Output 02/03/19 02/04/19 19:00 07:00 Intake Total 417.876 ml 502.703 ml Output Total 865 ml 935 ml Balance -447.124 ml -432.297 ml IV Total 417.876 ml 452.703 ml Other 50 ml Output Urine Total 865 ml 935 ml Dressing: saturated Wound: clean Cardiovascular: RSR Respiratory: clear, decreased breath sounds Abdomen: soft, present bowel sounds Extremities: no cyanosis, other Laboratory Tests Test 02/04/19 03:50 02/04/19 05:05 White Blood Count 14.7 K/UL (4.8-10.8) H Red Blood Count 4.54 M/UL (4.70-6.10) L Hemoglobin 13.8 G/DL (14.2-18.0) L Hematocrit 42.5 % (42.0-52.0) Mean Corpuscular Volume 93 FL (80-99) Mean Corpuscular Hemoglobin 30.4 PG (27.0-31.0) Mean Corpuscular Hemoglobin Concent 32.5 G/DL (32.0-36.0) Red Cell Distribution Width 14.4 % (11.6-14.8) Platelet Count 198 K/UL (150-450) Mean Platelet Volume 5.1 FL (6.5-10.1) L Neutrophils (%) (Auto) 80.0 % (45.0-75.0) H Lymphocytes (%) (Auto) 12.3 % (20.0-45.0) L Monocytes (%) (Auto) 6.7 % (1.0-10.0) Eosinophils (%) (Auto) 0.5 % (0.0-3.0) Basophils (%) (Auto) 0.6 % (0.0-2.0) Sodium Level 138 MMOL/L (136-145) Potassium Level 4.1 MMOL/L (3.5-5.1) Chloride Level 101 MMOL/L (98-107) Carbon Dioxide Level 38 MMOL/L (21-32) H Anion Gap -1 mmol/L (5-15) L Blood Urea Nitrogen 22 mg/dL (7-18) H Creatinine 1.4 MG/DL (0.55-1.30) H Estimat Glomerular Filtration Rate 50.4 mL/min (>60) Glucose Level 126 MG/DL (74-106) H Calcium Level 7.7 MG/DL (8.5-10.1) L Total Bilirubin 0.7 MG/DL (0.2-1.0) Aspartate Amino Transf (AST/SGOT) 50 U/L (15-37) H Alanine Aminotransferase (ALT/SGPT) 82 U/L (12-78) H Alkaline Phosphatase 123 U/L (46-116) H Pro-B-Type Natriuretic Peptide 61228 pg/mL (0-125) H Total Protein 6.2 G/DL (6.4-8.2) L Albumin 2.2 G/DL (3.4-5.0) L Globulin 4.0 g/dL Albumin/Globulin Ratio 0.6 (1.0-2.7) L Phosphorus Level 2.9 MG/DL (2.5-4.9) Magnesium Level 2.0 MG/DL (1.8-2.4) Plan Problems: (1) Sepsis Assessment & Plan: afebrile, HD improving HR -noted cardiology input leukocytosis lactic acidosis resolved slowly improving -IV abx as per ID -trend labs -swallow eval not ready so wait until once more responsive -PEG as per GI CONTINUE WIT NPO STATUS AND ORAL CARE (NO PO MEDS EXPLORE ALTERNATIVES WITH PHARMACY) AND INSERT NGT IF POSSIBLE. CONSIDER LONGER TERM NONORAL FEEDING OPTIONS. SKILLED DYSPHAGIA MANAGEMENT AND TX (TRIAL TX ? COMPLIANCE IP AND AT SNF). WILL NEED A REPEAT MOD BARIUM SWALLOW STUDY AN OP AFTER TX AND TIME (2-4 WEEKS) PRIOR TO PO TRIALS AND CLEARANCE FOR MEALS. -will follow with recs thank you (2) Septic shock (3) Wound, open Assessment & Plan: Patient presented on admission with multiple pressure injuries being identified. Non-blanching erythema without induration noted to sacrum ,Right and Left buttocks. Scattered areas that are darker and maroon in color noted within base of wound. Scrotum is also erythematous. Unstageable pressure injury noted to Left heel. Base of wound is 100% necrotic but soft. Erythematous margins with surrounding non-blanching erythema.(L)3.2cm x (W)3cm. no drainage Right heel is boggy with non-blanching erythema.. Keloid scar noted distal R tibia. Partial thickness ulcer noted to dorsal R foot. Base of wound is moist and viable. Small amt serous exudate noted. Scattered small dry scabs noted to dorsal R foot. Tx.Plan: Swab Dorsal R foot and R heel with Betadine. Cover with Optifoam drsg. Change every 3 days and prn. Apply Moisture Barrier Paste to buttocks. Cover sacrum with Optifoam drsg. Change every 3 days and prn. Apply Cavilon Skin Barrier to L heel.Cover with Optifoam drsg. Change every 7 days and prn. APM/JELLY mattress. Reposition at least every 2hours or as tolerated. Off-load heels with pillow. Nutritional Optimization Will monitor while in critical condition DAILY ESTIMATED NEEDS: Needs based on Critical care, sepsis, wounds 69kg 22-30 kcals/kg 1046-3967 total kcals 1.25-2 g protein/kg 86-138 g total protein 25-30 mL/kg 6805-3407 total fluid mLs NUTRITION DIAGNOSIS: Increased kcal and pro needs r/t sepsis, wound healing, and underweight status as evidenced by pt w respiratory distress now intubated, critically elev WBC (*29.7), elev BG (200's), w/ multiple wounds (refer to eval), pt is @88% if [place] Body Weight. CURRENT TF: Glucerna 1.2 @30ml ENTERAL NUTRITION RECOMMENDATIONS: VITAL AF 1.2 @60ml/hr x24 hrs to provide 1440ml, 1728 kcal, 108g pro, 1168ml free H2O - WITH HEMODYNAMIC STABILITY, rec TF change to VITAL 1.2 to better meet est needs. Start @20ml/hr for 6 hrs. Advance as tolerated 10ml/hr q4-6 hrs to goal. - Flush per . HOB over 30 degrees If pt remains on pressor support, rec trophic feeds of Vital 1.2 @5-10ml/hr to maintain gut integrity. ------ ADDITIONAL RECOMMENDATIONS: 1) Per SNF: HT 71 inches, 152 lbs (69.1kg) 2) Wound care: Add DANIELA in 4oz water BID via OGT + VIT C 250mg BID (f/up w/ WC specialist) 3) Monitor lytes daily, replete as needed 4) Daily calibrated bed scale wts Mauricio Anne Feb 04, 2019 17:51
--- NOTE | 2019-02-04 19:25 | NUR ---
HAND-OFF: Report given to Jalen BELLO.
--- NOTE | 2019-02-04 19:35 | Cardiology Progress Note ---
Assessment/Plan Assessment/Plan 1. Septic syndrome. 2. Respiratory failure now extubated 3. Pneumonia. 4. Schizophrenia and dementia. 5. Urinary tract infection. 6. Renal failure. 7. Hypoalbuminemia/malnutrition. 8. Sinus tachycardia secondary to above resolved 9. Left ventricular systolic dysfunction. 10. sinus alanna cxr reviewed personally rernal fxn improved tele sinus / alanna on dopamine for hypootension nwo avoid any neg chronotropic agents as long as sinus alanna should not need DA karthik titrate off bp has janki gross lowering dopain will bolus 500 cc nsand 100 cc /hr and start slwo titration ofter that Subjective Cardiovascular: Denies: chest pain, irregular heart rate, lightheadedness Respiratory: Denies: shortness of breath Gastrointestinal/Abdominal: Denies: abdominal pain Genitourinary: Denies: no symptoms Objective Last 24 Hour Vital Signs Date Time Temp Pulse Resp B/P (MAP) Pulse Ox O2 Delivery O2 Flow Rate FiO2 02/04/19 19:00 75 29 97/47 (64) 99 02/04/19 18:30 81 22 88/44 (59) 99 02/04/19 18:00 81 26 80/53 (62) 98 02/04/19 17:00 81 30 135/71 (92) 99 02/04/19 16:00 98.4 90 20 121/74 (90) 99 02/04/19 16:00 Venturi Mask 4.0 02/04/19 16:00 91 02/04/19 15:30 94 25 146/76 (99) 99 02/04/19 15:00 91 31 123/67 (85) 98 02/04/19 14:30 94 39 144/71 (95) 99 02/04/19 14:00 94 29 93/60 (71) 99 02/04/19 13:30 93 24 147/88 (107) 98 02/04/19 13:00 128 20 72/45 (54) 96 02/04/19 12:30 114 19 177/95 (122) 96 02/04/19 12:00 Venturi Mask 4.0 02/04/19 12:00 98.7 62 40 173/101 (125) 97 02/04/19 12:00 107 02/04/19 11:31 157/73 (101) 02/04/19 11:00 02/04/19 10:30 98 26 116/67 (83) 99 02/04/19 10:00 109 32 130/76 (94) 97 02/04/19 09:30 105 36 167/85 (112) 95 02/04/19 09:05 104/59 02/04/19 09:00 101 25 101/57 (72) 98 02/04/19 08:30 105 32 86/55 (65) 87 02/04/19 08:00 93 02/04/19 08:00 Venturi Mask 4.0 02/04/19 08:00 100.0 90 25 89/51 (64) 97 02/04/19 07:30 87 30 107/59 (75) 100 02/04/19 07:23 97 Venturi Mask 8.0 30 02/04/19 07:00 84 26 112/59 (76) 99 02/04/19 07:00 104/59 02/04/19 06:30 87 29 102/62 (75) 100 02/04/19 06:00 82 30 81/48 (59) 100 02/04/19 06:00 81/48 02/04/19 05:45 85 20 88/55 (66) 100 02/04/19 05:35 82 20 75/45 (55) 100 02/04/19 05:30 73 23 60/38 (45) 99 02/04/19 05:26 91 19 52/38 (43) 02/04/19 05:25 88 22 02/04/19 05:25 88 22 02/04/19 05:21 92 24 55/38 (44) 99 02/04/19 05:20 93 25 99 02/04/19 05:19 95 26 99 02/04/19 05:18 96 26 98 02/04/19 05:17 93 24 97 02/04/19 05:16 95 25 97 02/04/19 05:15 97 26 97 02/04/19 05:09 111 22 85/54 (64) 99 02/04/19 05:00 108 23 74/52 (59) 99 02/04/19 05:00 94/52 02/04/19 04:30 90 22 127/66 (86) 97 02/04/19 04:00 86/57 02/04/19 04:00 99.8 94 26 86/57 (67) 99 02/04/19 04:00 Venturi Mask 4.0 02/04/19 03:41 91 02/04/19 03:30 92 17 67/46 (53) 99 02/04/19 03:15 114 21 71/43 (52) 02/04/19 03:00 106 26 60/46 (51) 91 02/04/19 03:00 60/46 02/04/19 02:30 91 27 84/50 (61) 95 02/04/19 02:00 82 24 110/58 (75) 100 02/04/19 02:00 110/58 02/04/19 01:30 82 24 119/57 (77) 100 02/04/19 01:00 68 20 128/80 (96) 100 02/04/19 01:00 128/80 02/04/19 00:30 81 24 80/48 (59) 100 02/04/19 00:00 Simple Mask 8.0 02/04/19 00:00 87/48 02/04/19 00:00 98.8 76 24 87/48 (61) 100 02/03/19 23:30 81 25 78/46 (57) 100 02/03/19 23:10 83 02/03/19 23:00 86 23 78/44 (55) 100 02/03/19 23:00 78/44 02/03/19 22:30 97 20 73/47 (56) 100 02/03/19 22:00 98/56 02/03/19 22:00 97 25 98/56 (70) 99 02/03/19 21:30 105 20 147/76 (99) 99 02/03/19 21:00 134/74 02/03/19 21:00 72 23 134/74 (94) 100 02/03/19 20:30 99.0 71 21 87/50 (62) 99 02/03/19 20:00 72 17 96/54 (68) 99 02/03/19 20:00 Simple Mask 8.0 02/03/19 20:00 96/54 02/03/19 19:45 79 General Appearance: no apparent distress, alert, patient on isolation Neck: supple Cardiovascular: normal rate Respiratory/Chest: lungs clear Abdomen: normal bowel sounds, non tender, soft Extremities: no swelling Intake and Output 02/03/19 02/04/19 19:00 07:00 Intake Total 417.876 ml 502.703 ml Output Total 865 ml 935 ml Balance -447.124 ml -432.297 ml IV Total 417.876 ml 452.703 ml Other 50 ml Output Urine Total 865 ml 935 ml Laboratory Tests Test 02/04/19 03:50 02/04/19 05:05 White Blood Count 14.7 K/UL (4.8-10.8) H Red Blood Count 4.54 M/UL (4.70-6.10) L Hemoglobin 13.8 G/DL (14.2-18.0) L Hematocrit 42.5 % (42.0-52.0) Mean Corpuscular Volume 93 FL (80-99) Mean Corpuscular Hemoglobin 30.4 PG (27.0-31.0) Mean Corpuscular Hemoglobin Concent 32.5 G/DL (32.0-36.0) Red Cell Distribution Width 14.4 % (11.6-14.8) Platelet Count 198 K/UL (150-450) Mean Platelet Volume 5.1 FL (6.5-10.1) L Neutrophils (%) (Auto) 80.0 % (45.0-75.0) H Lymphocytes (%) (Auto) 12.3 % (20.0-45.0) L Monocytes (%) (Auto) 6.7 % (1.0-10.0) Eosinophils (%) (Auto) 0.5 % (0.0-3.0) Basophils (%) (Auto) 0.6 % (0.0-2.0) Sodium Level 138 MMOL/L (136-145) Potassium Level 4.1 MMOL/L (3.5-5.1) Chloride Level 101 MMOL/L (98-107) Carbon Dioxide Level 38 MMOL/L (21-32) H Anion Gap -1 mmol/L (5-15) L Blood Urea Nitrogen 22 mg/dL (7-18) H Creatinine 1.4 MG/DL (0.55-1.30) H Estimat Glomerular Filtration Rate 50.4 mL/min (>60) Glucose Level 126 MG/DL (74-106) H Calcium Level 7.7 MG/DL (8.5-10.1) L Total Bilirubin 0.7 MG/DL (0.2-1.0) Aspartate Amino Transf (AST/SGOT) 50 U/L (15-37) H Alanine Aminotransferase (ALT/SGPT) 82 U/L (12-78) H Alkaline Phosphatase 123 U/L (46-116) H Pro-B-Type Natriuretic Peptide 09683 pg/mL (0-125) H Total Protein 6.2 G/DL (6.4-8.2) L Albumin 2.2 G/DL (3.4-5.0) L Globulin 4.0 g/dL Albumin/Globulin Ratio 0.6 (1.0-2.7) L Phosphorus Level 2.9 MG/DL (2.5-4.9) Magnesium Level 2.0 MG/DL (1.8-2.4) Sammy Helm MD Feb 04, 2019 19:35
--- NOTE | 2019-02-04 19:42 | NUR ---
NURSE NOTES: SEEN THE PATIENT BY DR. SCHAEFER.
--- NOTE | 2019-02-04 19:45 | NUR ---
NURSE NOTES: PATIENT AWOKE, ORIENTED X1 TO NAME, CONFUSED TO TIME, PLACE AND SITUATION, RESISTANCE TO CARE STATUS, ON FIO2 30 % VENTURI MASK, O2 SATURATION OVER 96%, COUGH WITH DISCHARGE NOTED, HEART RATE 70'S/MIN SR NOTED, ABDOMEN SOFT, NON TENDER, NO BM NOTED, KEPT NPO EXCEPT MED AND ICE CHIPS, NO N/V STATUS, F/C INTACT AND PATENT, THIN YELLOW URINE OUTED, PICC LINE TO RIGHT UPPER ARM, INTACT AND PATENT, 2 POINT SOFT RESTRAINTS FOR SAFETY, ON P200 BED, LOCKED BED, KEPT HOB 30 DEGREES AND BED ALARM, PROVIDED CALL LIGHT WITHIN REACH, WILL CONTINUE TO MONITOR.
[2019-02-04] MEDS: Dyna-Hex 2% Top Sol 2oz TOPIC SCH (19:52)
--- NOTE | 2019-02-04 20:50 | NUR ---
NURSE NOTES: NOTED DIARRHEA, CLEANED THE PATIENT, WILL CONTINUE TO MONITOR.
--- NOTE | 2019-02-04 21:45 | NUR ---
NURSE NOTES: PATIENT HAS PEG PLACEMENT SCHEDULE BY DR. HOUSE TOMORROW 1200, KEPT NPO.
--- NOTE | 2019-02-04 23:29 | NUR ---
NURSE NOTES: PATIENT CALM, DENIED PAIN OR SOB, WILL CONTINUE TO MONITOR.
[2019-02-05] VITALS (76 sets, daily range): BP systolic 61–150; BP diastolic 32–63
--- NOTE | 2019-02-05 01:00 | NUR ---
NURSE NOTES: PATIENT ASLEEP STATUS, BP 85/37MMHG, HEART RATE 70'S/MIN SR NOTED ON DOPAMINE DRIP 8.38ML/HR (3.494MCG/KG/MIN), WILL CONTINUE TO MONITOR.
--- NOTE | 2019-02-05 03:30 | NUR ---
NURSE NOTES: MORNING CARE AND ORAL CARE WAS DONE, NO BOWEL MOVEMENT, NO RESISTANCE TO CARE AT THIS TIME.
[2019-02-05 04:55] LABS: BASOPHILS % (AUTO) 4.8 % (0.0-2.0); HEMATOCRIT 41.9 % (42.0-52.0); HEMOGLOBIN 13.5 G/DL (14.2-18.0); LYMPHOCYTES % (AUTO) 12.3 % (20.0-45.0); MEAN CORPUSCULAR VOLUME 94 FL (80-99); MONOCYTES % (AUTO) 3.1 % (1.0-10.0); NEUTROPHILS % (AUTO) 79.7 % (45.0-75.0); PLATELET COUNT 292 K/UL (150-450); RED BLOOD COUNT 4.48 M/UL (4.70-6.10); RED CELL DISTRIBUTION WIDTH 14.2 % (11.6-14.8); WHITE BLOOD COUNT 14.9 K/UL (4.8-10.8)
--- NOTE | 2019-02-05 05:21 | NUR ---
NURSE NOTES: PATIENT COUGH WITH WHITISH THICK DISCHARGE, SUCTIONED, DENIED SOB, O2 SATURATION OVER 97% ON FIO2 30% VENTURI MASK, VSS ON DOPAMINE 10.38ML/HR, WILL CONTINUE PLAN OF CARE.
[2019-02-05 05:22] LABS: INR 1.2 (0.9-1.1)
[2019-02-05] MEDS: NovoLOG Insulin Flexpen SUBQ SCH ×4 (05:31→23:57)
[2019-02-05 05:53] LABS: ALANINE AMINOTRANSFERASE 54 U/L (12-78); ALBUMIN 1.8 G/DL (3.4-5.0); ALBUMIN/GLOBULIN RATIO 0.5 (1.0-2.7); ALKALINE PHOSPHATASE 98 U/L (46-116); ANION GAP -1 mmol/L (5-15); ASPARTATE AMINO TRANSFERASE 41 U/L (15-37); BILIRUBIN,TOTAL 0.6 MG/DL (0.2-1.0); BLOOD UREA NITROGEN 17 mg/dL (7-18); CALCIUM 7.3 MG/DL (8.5-10.1); CARBON DIOXIDE 35 MMOL/L (21-32); CHLORIDE 102 MMOL/L (98-107); CREATININE 1.4 MG/DL (0.55-1.30); POTASSIUM 3.9 MMOL/L (3.5-5.1); SODIUM 136 MMOL/L (136-145)
--- NOTE | 2019-02-05 06:24 | NUR ---
NURSE NOTES: KEPT NPO, NO ACUTE DISTRESS NOTED AT THIS SHIFT.
--- NOTE | 2019-02-05 07:14 | NUR ---
HAND-OFF: Report given to EUGENIA AYERS.
--- NOTE | 2019-02-05 07:24 | NUR ---
NURSE NOTES: Received report from edwardo. pt in bed. vs: BP 117/51, HR 68. pt is verbal. a/ox1 to self. Able to move extremities. Venturi mask on fi02 30% sating 97%RR 26, HOB 35. Lung sounds rhonchi throughout. notable cough, productive thick secretions via oral suction. abdomen round, non tender. bowel sounds hypoactive. pt npo except meds and ice chips. Costello secure, draining yellow urine below bladder by gravity. IV access JONATHAN PICC,dressing intact, patent. dopamine running at 3.8777/hr-10.388ml/hr. NS at 100ml/hr. bilateral wrist restraints noted, circulation check completed. skin-see assessment. bed locked, in low position, bed alarm on, side rails x3, call light within reach. plan of care: peg placement today. Educate pt on medication side effects and restraint removal criteria. will continue to monitor pt.
[2019-02-05] MEDS: Heparin 5000 units/ml inj SUBQ SCH ×2 (09:00→20:52)
[2019-02-05] MEDS: Theophylline ER 100mg ORAL SCH ×2 (09:00→20:55)
[2019-02-05] MEDS: Ascorbic Acid 500mg tab ORAL SCH ×2 (09:00→17:48)
[2019-02-05] MEDS: Midodrine 10mg tab NG SCH ×3 (09:00→17:48)
[2019-02-05] MEDS: Memantine 5 MG TAB ORAL SCH (09:00)
--- NOTE | 2019-02-05 09:23 | General Progress Note ---
Assessment/Plan Problem List: (1) Renal failure (ARF), acute on chronic ICD Codes: N17.9 - Acute kidney failure, unspecified; N18.9 - Chronic kidney disease, unspecified SNOMED: 632661534 (2) Sepsis ICD Codes: A41.9 - Sepsis, unspecified organism SNOMED: 19855628 Qualifiers: Qualified Codes: A41.9 - Sepsis, unspecified organism (3) Malignant neoplasm of right kidney ICD Codes: C64.1 - Malignant neoplasm of right kidney, except renal pelvis SNOMED: 505318420 (4) Acute respiratory failure ICD Codes: J96.00 - Acute respiratory failure, unspecified whether with hypoxia or hypercapnia SNOMED: 22414384 (5) PVD (peripheral vascular disease) ICD Codes: I73.9 - Peripheral vascular disease, unspecified SNOMED: 484292438 Status: unchanged Assessment/Plan: vent abx wound care cbc bmp am ltach eval Subjective Constitutional: Reports: weakness Allergies: Coded Allergies: No Known Allergies (Unverified , 01/24/19) All Systems: reviewed and negative except above Subjective o2 mask in icu Objective Last 24 Hour Vital Signs Date Time Temp Pulse Resp B/P (MAP) Pulse Ox O2 Delivery O2 Flow Rate FiO2 02/05/19 08:15 74 28 106/56 (73) 99 02/05/19 08:00 81 17 108/48 (68) 97 02/05/19 08:00 Venturi Mask 4.0 02/05/19 07:00 70 21 109/53 (71) 98 02/05/19 07:00 109/53 02/05/19 06:50 99 Venturi Mask 4.0 31 02/05/19 06:30 66 22 104/51 (68) 97 02/05/19 06:00 117/54 02/05/19 06:00 73 26 117/54 (75) 99 02/05/19 05:45 80 25 111/48 (69) 95 02/05/19 05:30 72 22 110/51 (70) 97 02/05/19 05:15 72 24 115/63 (80) 98 02/05/19 05:00 77 21 109/59 (76) 98 02/05/19 04:45 89 21 78/50 (59) 95 02/05/19 04:37 93 20 65/44 (51) 94 02/05/19 04:30 61/32 02/05/19 04:30 80 24 61/32 (42) 90 02/05/19 04:15 78 24 89/56 (67) 97 02/05/19 04:08 79 22 91/51 (64) 94 02/05/19 04:00 Venturi Mask 4.0 02/05/19 04:00 75/49 02/05/19 04:00 99.0 75 18 75/49 (58) 96 02/05/19 03:45 70 27 97/52 (67) 98 02/05/19 03:30 77 23 91/52 (65) 99 02/05/19 03:18 76 02/05/19 03:16 87 25 80/47 (58) 94 02/05/19 03:15 83 18 74/46 (55) 93 02/05/19 03:00 93/48 02/05/19 03:00 70 29 93/48 (63) 93 02/05/19 02:45 74 29 96/52 (67) 96 02/05/19 02:30 68 34 82/49 (60) 88 02/05/19 02:15 71 26 97/53 (68) 98 02/05/19 02:00 103/58 02/05/19 02:00 76 21 103/58 (73) 98 02/05/19 01:45 72 27 86/49 (61) 94 02/05/19 01:30 72 22 90/53 (65) 98 02/05/19 01:23 71 26 83/47 (59) 95 02/05/19 01:15 72 27 77/43 (54) 94 02/05/19 01:00 78 23 85/37 (53) 96 02/05/19 01:00 85/37 02/05/19 00:45 70 26 92/52 (65) 96 02/05/19 00:30 97/51 02/05/19 00:30 70 24 97/51 (66) 98 02/05/19 00:15 80 24 86/52 (63) 99 02/05/19 00:00 98.4 76 29 88/50 (63) 99 02/05/19 00:00 75 02/05/19 00:00 Venturi Mask 4.0 02/05/19 00:00 88/50 02/04/19 23:45 76 25 102/57 (72) 99 02/04/19 23:30 75 29 100/59 (73) 99 02/04/19 23:15 81 21 82/52 (62) 95 02/04/19 23:00 74 29 97/52 (67) 98 02/04/19 23:00 97/52 02/04/19 22:45 75 31 94/52 (66) 97 02/04/19 22:45 94/52 02/04/19 22:30 76 19 60/51 (54) 98 02/04/19 22:15 74 36 125/67 (86) 99 02/04/19 22:15 128/67 02/04/19 22:00 66 35 152/64 (93) 99 02/04/19 21:45 67 33 148/68 (94) 100 02/04/19 21:45 148/68 02/04/19 21:30 83 21 112/57 (75) 98 02/04/19 21:15 82 21 81/51 (61) 97 02/04/19 21:00 87 27 97/61 (73) 94 02/04/19 21:00 97/61 02/04/19 20:54 96 23 59/47 (51) 97 02/04/19 20:45 96 02/04/19 20:30 75 21 96/56 (69) 98 02/04/19 20:30 96/56 02/04/19 20:15 79 24 82/46 (58) 98 02/04/19 20:05 73 18 83/54 (64) 98 02/04/19 20:03 100 Venturi Mask 4.0 30 02/04/19 20:00 Venturi Mask 4.0 02/04/19 20:00 53/35 02/04/19 20:00 97.7 71 22 53/35 (41) 99 02/04/19 19:48 76/48 02/04/19 19:45 73 23 76/48 (57) 99 02/04/19 19:30 77 23 84/54 (64) 99 02/04/19 19:29 83 02/04/19 19:15 82 29 106/65 (79) 98 02/04/19 19:00 75 29 97/47 (64) 99 02/04/19 18:30 81 22 88/44 (59) 99 02/04/19 18:00 81 26 80/53 (62) 98 02/04/19 17:00 81 30 135/71 (92) 99 02/04/19 16:00 98.4 90 20 121/74 (90) 99 02/04/19 16:00 Venturi Mask 4.0 02/04/19 16:00 91 02/04/19 15:30 94 25 146/76 (99) 99 02/04/19 15:00 91 31 123/67 (85) 98 02/04/19 14:30 94 39 144/71 (95) 99 02/04/19 14:00 94 29 93/60 (71) 99 02/04/19 13:30 93 24 147/88 (107) 98 02/04/19 13:00 128 20 72/45 (54) 96 02/04/19 12:30 114 19 177/95 (122) 96 02/04/19 12:00 Venturi Mask 4.0 02/04/19 12:00 98.7 62 40 173/101 (125) 97 02/04/19 12:00 107 02/04/19 11:31 157/73 (101) 02/04/19 11:00 02/04/19 10:30 98 26 116/67 (83) 99 02/04/19 10:00 109 32 130/76 (94) 97 02/04/19 09:30 105 36 167/85 (112) 95 Intake and Output 02/04/19 02/05/19 19:00 07:00 Intake Total 417.876 ml 2029.78 ml Output Total 795 ml 1330 ml Balance -377.124 ml 699.78 ml IV Total 417.876 ml 2029.78 ml Output Urine Total 795 ml 1330 ml # Bowel Movements 2 Laboratory Tests 02/05/19 03:00: White Blood Count 14.9H, Red Blood Count 4.48L, Hemoglobin 13.5L, Hematocrit 41.9L, Mean Corpuscular Volume 94, Mean Corpuscular Hemoglobin 30.1, Mean Corpuscular Hemoglobin Concent 32.2, Red Cell Distribution Width 14.2, Platelet Count 292, Mean Platelet Volume 4.5L, Neutrophils (%) (Auto) 79.7H, Lymphocytes (%) (Auto) 12.3L, Monocytes (%) (Auto) 3.1, Eosinophils (%) (Auto) 0.0, Basophils (%) (Auto) 4.8H, Prothrombin Time 13.1H, Prothromb Time International Ratio 1.2H, Activated Partial Thromboplast Time 35H, Sodium Level 136, Potassium Level 3.9, Chloride Level 102, Carbon Dioxide Level 35H, Anion Gap -1L , Blood Urea Nitrogen 17, Creatinine 1.4H, Estimat Glomerular Filtration Rate 50.4, Glucose Level 98, Calcium Level 7.3L, Total Bilirubin 0.6, Aspartate Amino Transf (AST/SGOT) 41H, Alanine Aminotransferase (ALT/SGPT) 54, Alkaline Phosphatase 98, Total Protein 5.5L, Albumin 1.8L, Globulin 3.7, Albumin/ Globulin Ratio 0.5L Height (Feet): 5 Height (Inches): 7.00 Weight (Pounds): 140 General Appearance: lethargic EENT: normal ENT inspection Neck: normal alignment Cardiovascular: normal peripheral pulses, normal rate, regular rhythm Respiratory/Chest: chest wall non-tender, lungs clear, normal breath sounds Abdomen: normal bowel sounds, non tender, soft Extremities: normal inspection Edema: no edema noted Arm (L), no edema noted Arm (R), no edema noted Leg (L), no edema noted Leg (R), no edema noted Pedal (L), no edema noted Pedal (R), no edema noted Generalized Neurologic: motor weakness Skin: normal pigmentation, warm/dry Corey Short DO Feb 05, 2019 09:23
--- NOTE | 2019-02-05 09:32 | NUR ---
NURSE NOTES: CALLED R.T TO SUCTION PT. SATING 93%. RR 40'S. SUCTIONED NASOPHARYNGEALLY. SECRETIONS THICK, PINK TINGED W/ RED SPECKS. REPLACED VENTURI MASK, PT SATING 97%, RR 22
[2019-02-05] MEDS: Pantoprazole Inj IVP SCH (09:36)
--- NOTE | 2019-02-05 09:38 | NUR ---
RD ASSESSMENT & RECOMMENDATIONS SEE CARE ACTIVITY FOR COMPLETE ASSESSMENT DAILY ESTIMATED NEEDS: Needs based on Pulmonary, sepsis, wounds 69kg 28-33 kcals/kg 6667-5453 total kcals 1.25-2 g protein/kg 86-138 g total protein 25-30 mL/kg 4805-3535 total fluid mLs NUTRITION DIAGNOSIS: Increased kcal and pro needs r/t sepsis, wound healing, and underweight status as evidenced by pt w respiratory distress now s/p extubation, critically elev WBC (*29.7-> 16.7), elev BGs w/ POC (162-210), w/ multiple wounds (refer to eval), pt is @88% if Mallory Body Weight. 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 oral diet Continue VIT C 250mg BID w/ oral diet 3) Monitor lytes daily, replete as needed 4) NPO day 2 from extubation/ consider non oral feeds reintroduced 5) Monitor BGs closely, need for long acting insulin .
--- NOTE | 2019-02-05 09:47 | Pulmonolgy Critical Care Note ---
Critical Care - Asmt/Plan Problems: (1) Acute respiratory failure (2) Septic shock (3) Systolic heart failure (4) Chronic kidney disease (5) Malignant neoplasm of right kidney (6) COPD (chronic obstructive pulmonary disease) (7) Schizophrenia Respiratory: monitor respiratory rate, adjust FIO2, CXR Cardiac: continue pressors Infectious Disease: check cultures Gastrointestinal: continue feedings/current rate Endocrine: monitor blood sugar Hematologic: monitor H/H, transfuse if hgb<8.5 Neurologic: PRN Ativan, PRN Morphine, keep patient comfortable Affect: PRN ativan Prophylaxis: Protonix, Heparin Disposition: keep in ICU 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, 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, 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 Discussed with: nurses, consultants Critical Care - Objective Last 24 Hour Vital Signs Date Time Temp Pulse Resp B/P (MAP) Pulse Ox O2 Delivery O2 Flow Rate FiO2 02/05/19 08:15 74 28 106/56 (73) 99 02/05/19 08:00 81 17 108/48 (68) 97 02/05/19 08:00 Venturi Mask 4.0 02/05/19 08:00 73 02/05/19 07:00 70 21 109/53 (71) 98 02/05/19 07:00 109/53 02/05/19 06:50 99 Venturi Mask 4.0 31 02/05/19 06:30 66 22 104/51 (68) 97 02/05/19 06:00 117/54 02/05/19 06:00 73 26 117/54 (75) 99 02/05/19 05:45 80 25 111/48 (69) 95 02/05/19 05:30 72 22 110/51 (70) 97 02/05/19 05:15 72 24 115/63 (80) 98 02/05/19 05:00 77 21 109/59 (76) 98 02/05/19 04:45 89 21 78/50 (59) 95 02/05/19 04:37 93 20 65/44 (51) 94 02/05/19 04:30 61/32 02/05/19 04:30 80 24 61/32 (42) 90 02/05/19 04:15 78 24 89/56 (67) 97 02/05/19 04:08 79 22 91/51 (64) 94 02/05/19 04:00 Venturi Mask 4.0 02/05/19 04:00 75/49 02/05/19 04:00 99.0 75 18 75/49 (58) 96 02/05/19 03:45 70 27 97/52 (67) 98 02/05/19 03:30 77 23 91/52 (65) 99 02/05/19 03:18 76 02/05/19 03:16 87 25 80/47 (58) 94 02/05/19 03:15 83 18 74/46 (55) 93 02/05/19 03:00 93/48 02/05/19 03:00 70 29 93/48 (63) 93 02/05/19 02:45 74 29 96/52 (67) 96 02/05/19 02:30 68 34 82/49 (60) 88 02/05/19 02:15 71 26 97/53 (68) 98 02/05/19 02:00 103/58 02/05/19 02:00 76 21 103/58 (73) 98 02/05/19 01:45 72 27 86/49 (61) 94 02/05/19 01:30 72 22 90/53 (65) 98 02/05/19 01:23 71 26 83/47 (59) 95 02/05/19 01:15 72 27 77/43 (54) 94 02/05/19 01:00 78 23 85/37 (53) 96 02/05/19 01:00 85/37 02/05/19 00:45 70 26 92/52 (65) 96 02/05/19 00:30 97/51 02/05/19 00:30 70 24 97/51 (66) 98 02/05/19 00:15 80 24 86/52 (63) 99 02/05/19 00:00 98.4 76 29 88/50 (63) 99 02/05/19 00:00 75 02/05/19 00:00 Venturi Mask 4.0 02/05/19 00:00 88/50 02/04/19 23:45 76 25 102/57 (72) 99 02/04/19 23:30 75 29 100/59 (73) 99 02/04/19 23:15 81 21 82/52 (62) 95 02/04/19 23:00 74 29 97/52 (67) 98 02/04/19 23:00 97/52 02/04/19 22:45 75 31 94/52 (66) 97 02/04/19 22:45 94/52 02/04/19 22:30 76 19 60/51 (54) 98 02/04/19 22:15 74 36 125/67 (86) 99 02/04/19 22:15 128/67 02/04/19 22:00 66 35 152/64 (93) 99 02/04/19 21:45 67 33 148/68 (94) 100 02/04/19 21:45 148/68 02/04/19 21:30 83 21 112/57 (75) 98 02/04/19 21:15 82 21 81/51 (61) 97 02/04/19 21:00 87 27 97/61 (73) 94 02/04/19 21:00 97/61 02/04/19 20:54 96 23 59/47 (51) 97 02/04/19 20:45 96 02/04/19 20:30 75 21 96/56 (69) 98 02/04/19 20:30 96/56 02/04/19 20:15 79 24 82/46 (58) 98 02/04/19 20:05 73 18 83/54 (64) 98 02/04/19 20:03 100 Venturi Mask 4.0 30 02/04/19 20:00 Venturi Mask 4.0 02/04/19 20:00 53/35 02/04/19 20:00 97.7 71 22 53/35 (41) 99 02/04/19 19:48 76/48 02/04/19 19:45 73 23 76/48 (57) 99 02/04/19 19:30 77 23 84/54 (64) 99 02/04/19 19:29 83 02/04/19 19:15 82 29 106/65 (79) 98 02/04/19 19:00 75 29 97/47 (64) 99 02/04/19 18:30 81 22 88/44 (59) 99 02/04/19 18:00 81 26 80/53 (62) 98 02/04/19 17:00 81 30 135/71 (92) 99 02/04/19 16:00 98.4 90 20 121/74 (90) 99 02/04/19 16:00 Venturi Mask 4.0 02/04/19 16:00 91 02/04/19 15:30 94 25 146/76 (99) 99 02/04/19 15:00 91 31 123/67 (85) 98 02/04/19 14:30 94 39 144/71 (95) 99 02/04/19 14:00 94 29 93/60 (71) 99 02/04/19 13:30 93 24 147/88 (107) 98 02/04/19 13:00 128 20 72/45 (54) 96 02/04/19 12:30 114 19 177/95 (122) 96 02/04/19 12:00 Venturi Mask 4.0 02/04/19 12:00 98.7 62 40 173/101 (125) 97 02/04/19 12:00 107 02/04/19 11:31 157/73 (101) 02/04/19 11:00 02/04/19 10:30 98 26 116/67 (83) 99 02/04/19 10:00 109 32 130/76 (94) 97 Status: awake Condition: critical, improving HEENT: atraumatic Neck: full ROM Lungs: rales, rhonchi Heart: HR/BP unstable - on dopamin Abdomen: soft, non-tender Accucheck: 82 Critical Care - Subjective ROS Limited/Unobtainable: Yes Condition: critical EKG Rhythm: Sinus Rhythm FI02: 31 Vent Support Breath Rate: 20 Vent Support Mode: CPAP Vent Tidal Volume: 500 Sputum Amount: Small PEEP: 5.0 PIP: 13 I&O: Intake and Output 02/04/19 02/05/19 19:00 07:00 Intake Total 417.876 ml 2029.78 ml Output Total 795 ml 1330 ml Balance -377.124 ml 699.78 ml IV Total 417.876 ml 2029.78 ml Output Urine Total 795 ml 1330 ml # Bowel Movements 2 CXR: no change ET-Tube: 7.5 ET Position: 26 Labs: Laboratory Tests Test 02/05/19 03:00 White Blood Count 14.9 K/UL (4.8-10.8) H Red Blood Count 4.48 M/UL (4.70-6.10) L Hemoglobin 13.5 G/DL (14.2-18.0) L Hematocrit 41.9 % (42.0-52.0) L Mean Corpuscular Volume 94 FL (80-99) Mean Corpuscular Hemoglobin 30.1 PG (27.0-31.0) Mean Corpuscular Hemoglobin Concent 32.2 G/DL (32.0-36.0) Red Cell Distribution Width 14.2 % (11.6-14.8) Platelet Count 292 K/UL (150-450) Mean Platelet Volume 4.5 FL (6.5-10.1) L Neutrophils (%) (Auto) 79.7 % (45.0-75.0) H Lymphocytes (%) (Auto) 12.3 % (20.0-45.0) L Monocytes (%) (Auto) 3.1 % (1.0-10.0) Eosinophils (%) (Auto) 0.0 % (0.0-3.0) Basophils (%) (Auto) 4.8 % (0.0-2.0) H Prothrombin Time 13.1 SEC (9.30-11.50) H Prothromb Time International Ratio 1.2 (0.9-1.1) H Activated Partial Thromboplast Time 35 SEC (23-33) H Sodium Level 136 MMOL/L (136-145) Potassium Level 3.9 MMOL/L (3.5-5.1) Chloride Level 102 MMOL/L (98-107) Carbon Dioxide Level 35 MMOL/L (21-32) H Anion Gap -1 mmol/L (5-15) L Blood Urea Nitrogen 17 mg/dL (7-18) Creatinine 1.4 MG/DL (0.55-1.30) H Estimat Glomerular Filtration Rate 50.4 mL/min (>60) Glucose Level 98 MG/DL (74-106) Calcium Level 7.3 MG/DL (8.5-10.1) L Total Bilirubin 0.6 MG/DL (0.2-1.0) Aspartate Amino Transf (AST/SGOT) 41 U/L (15-37) H Alanine Aminotransferase (ALT/SGPT) 54 U/L (12-78) Alkaline Phosphatase 98 U/L (46-116) Total Protein 5.5 G/DL (6.4-8.2) L Albumin 1.8 G/DL (3.4-5.0) L Globulin 3.7 g/dL Albumin/Globulin Ratio 0.5 (1.0-2.7) L Ron Anthony MD Feb 05, 2019 09:46
--- NOTE | 2019-02-05 09:48 | NUR ---
NURSE NOTES: MD YOST HERE TO SEE PT. WANTS DOPAMINE TO BE WEANED OFF. IT WAS FOR HR AND NOT BP CONTROL.
--- NOTE | 2019-02-05 09:49 | NUR ---
NURSE NOTES: MD ORTIZ HERE TO SEE PT. WANTS PT ON NC. PT SATING 98%, RR 24. WILL INFORM R.T
--- NOTE | 2019-02-05 10:28 | NUR ---
NURSE NOTES: Placed pt on nasal cannula 3L. Pt sating 98%, RR 24. Hob30. BP 93/51. Educated pt on inhaling through nose and blow out through mouth.
--- NOTE | 2019-02-05 10:40 | NUR ---
NURSE NOTES: Late entry: Placed call to case coordinator. Left message regarding bioethic status for peg placement on pt. Awaiting call back.
--- NOTE | 2019-02-05 10:46 | NUR ---
Social Work This SW spoke with Dr. Galvez in bioethics who has not seen patient. This Sw made another referral to Dr. Galvez, Bioethics for peg tube placement. Eula, ICU hospice fellow aware.
--- NOTE | 2019-02-05 10:49 | General Progress Note ---
Assessment/Plan Problem List: (1) DM (diabetes mellitus) ICD Codes: E11.9 - Type 2 diabetes mellitus without complications SNOMED: 03699761 (2) cardiomyopathy with EF of 35% (3) Encounter for PEG (percutaneous endoscopic gastrostomy) ICD Codes: Z43.1 - Encounter for attention to gastrostomy SNOMED: 064410543, 253441734 (4) Dysphagia ICD Codes: R13.10 - Dysphagia, unspecified SNOMED: 22334371, 663441133 (5) Bradyarrhythmia ICD Codes: I49.8 - Other specified cardiac arrhythmias SNOMED: 765343853 (6) Systolic heart failure ICD Codes: I50.20 - Unspecified systolic (congestive) heart failure SNOMED: 931673646 (7) Schizophrenia ICD Codes: F20.9 - Schizophrenia, unspecified SNOMED: 81558426 (8) COPD (chronic obstructive pulmonary disease) ICD Codes: J44.9 - Chronic obstructive pulmonary disease, unspecified SNOMED: 18768380 Qualifiers: Qualified Codes: J44.9 - Chronic obstructive pulmonary disease, unspecified Status: unchanged Assessment/Plan: NGT clogged and removed abd us reviewed repeat LFTS in am failed swallow eval needs peg Bioethic consult pending Subjective ROS Limited/Unobtainable: No Allergies: Coded Allergies: No Known Allergies (Unverified , 01/24/19) Objective Last 24 Hour Vital Signs Date Time Temp Pulse Resp B/P (MAP) Pulse Ox O2 Delivery O2 Flow Rate FiO2 02/05/19 09:30 85 24 100/50 (67) 91 02/05/19 09:21 77 22 86/42 (57) 95 02/05/19 09:20 78 25 87/51 (63) 95 02/05/19 09:15 68 32 87/41 (56) 94 02/05/19 09:00 100/50 02/05/19 09:00 99.7 66 24 94/42 (59) 99 02/05/19 08:15 74 28 106/56 (73) 99 02/05/19 08:00 81 17 108/48 (68) 97 02/05/19 08:00 Venturi Mask 4.0 02/05/19 08:00 73 02/05/19 07:00 70 21 109/53 (71) 98 02/05/19 07:00 109/53 1122/19 06:50 99 Venturi Mask 4.0 31 02/05/19 06:30 66 22 104/51 (68) 97 02/05/19 06:00 117/54 02/05/19 06:00 73 26 117/54 (75) 99 02/05/19 05:45 80 25 111/48 (69) 95 02/05/19 05:30 72 22 110/51 (70) 97 02/05/19 05:15 72 24 115/63 (80) 98 02/05/19 05:00 77 21 109/59 (76) 98 02/05/19 04:45 89 21 78/50 (59) 95 02/05/19 04:37 93 20 65/44 (51) 94 02/05/19 04:30 61/32 02/05/19 04:30 80 24 61/32 (42) 90 02/05/19 04:15 78 24 89/56 (67) 97 02/05/19 04:08 79 22 91/51 (64) 94 02/05/19 04:00 Venturi Mask 4.0 02/05/19 04:00 75/49 02/05/19 04:00 99.0 75 18 75/49 (58) 96 02/05/19 03:45 70 27 97/52 (67) 98 02/05/19 03:30 77 23 91/52 (65) 99 02/05/19 03:18 76 02/05/19 03:16 87 25 80/47 (58) 94 02/05/19 03:15 83 18 74/46 (55) 93 02/05/19 03:00 93/48 02/05/19 03:00 70 29 93/48 (63) 93 02/05/19 02:45 74 29 96/52 (67) 96 02/05/19 02:30 68 34 82/49 (60) 88 02/05/19 02:15 71 26 97/53 (68) 98 02/05/19 02:00 103/58 02/05/19 02:00 76 21 103/58 (73) 98 02/05/19 01:45 72 27 86/49 (61) 94 02/05/19 01:30 72 22 90/53 (65) 98 11/22/19 01:23 71 26 83/47 (59) 95 02/05/19 01:15 72 27 77/43 (54) 94 02/05/19 01:00 78 23 85/37 (53) 96 02/05/19 01:00 85/37 02/05/19 00:45 70 26 92/52 (65) 96 02/05/19 00:30 97/51 02/05/19 00:30 70 24 97/51 (66) 98 02/05/19 00:15 80 24 86/52 (63) 99 02/05/19 00:00 98.4 76 29 88/50 (63) 99 02/05/19 00:00 75 02/05/19 00:00 Venturi Mask 4.0 02/05/19 00:00 88/50 02/04/19 23:45 76 25 102/57 (72) 99 02/04/19 23:30 75 29 100/59 (73) 99 02/04/19 23:15 81 21 82/52 (62) 95 02/04/19 23:00 74 29 97/52 (67) 98 02/04/19 23:00 97/52 02/04/19 22:45 75 31 94/52 (66) 97 02/04/19 22:45 94/52 02/04/19 22:30 76 19 60/51 (54) 98 02/04/19 22:15 74 36 125/67 (86) 99 02/04/19 22:15 128/67 02/04/19 22:00 66 35 152/64 (93) 99 02/04/19 21:45 67 33 148/68 (94) 100 02/04/19 21:45 148/68 02/04/19 21:30 83 21 112/57 (75) 98 02/04/19 21:15 82 21 81/51 (61) 97 02/04/19 21:00 87 27 97/61 (73) 94 02/04/19 21:00 97/61 02/04/19 20:54 96 23 59/47 (51) 97 02/04/19 20:45 96 02/04/19 20:30 75 21 96/56 (69) 98 02/04/19 20:30 96/56 02/04/19 20:15 79 24 82/46 (58) 98 02/04/19 20:05 73 18 83/54 (64) 98 02/04/19 20:03 100 Venturi Mask 4.0 30 02/04/19 20:00 Venturi Mask 4.0 02/04/19 20:00 53/35 02/04/19 20:00 97.7 71 22 53/35 (41) 99 02/04/19 19:48 76/48 02/04/19 19:45 73 23 76/48 (57) 99 02/04/19 19:30 77 23 84/54 (64) 99 02/04/19 19:29 83 02/04/19 19:15 82 29 106/65 (79) 98 02/04/19 19:00 75 29 97/47 (64) 99 02/04/19 18:30 81 22 88/44 (59) 99 02/04/19 18:00 81 26 80/53 (62) 98 02/04/19 17:00 81 30 135/71 (92) 99 02/04/19 16:00 98.4 90 20 121/74 (90) 99 02/04/19 16:00 Venturi Mask 4.0 02/04/19 16:00 91 02/04/19 15:30 94 25 146/76 (99) 99 02/04/19 15:00 91 31 123/67 (85) 98 02/04/19 14:30 94 39 144/71 (95) 99 02/04/19 14:00 94 29 93/60 (71) 99 02/04/19 13:30 93 24 147/88 (107) 98 02/04/19 13:00 128 20 72/45 (54) 96 02/04/19 12:30 114 19 177/95 (122) 96 02/04/19 12:00 Venturi Mask 4.0 02/04/19 12:00 98.7 62 40 173/101 (125) 97 02/04/19 12:00 107 02/04/19 11:31 157/73 (101) 02/04/19 11:00 Intake and Output 02/04/19 02/05/19 19:00 07:00 Intake Total 417.876 ml 2029.78 ml Output Total 795 ml 1330 ml Balance -377.124 ml 699.78 ml IV Total 417.876 ml 2029.78 ml Output Urine Total 795 ml 1330 ml # Bowel Movements 2 Laboratory Tests 02/05/19 03:00: White Blood Count 14.9H, Red Blood Count 4.48L, Hemoglobin 13.5L, Hematocrit 41.9L, Mean Corpuscular Volume 94, Mean Corpuscular Hemoglobin 30.1, Mean Corpuscular Hemoglobin Concent 32.2, Red Cell Distribution Width 14.2, Platelet Count 292, Mean Platelet Volume 4.5L, Neutrophils (%) (Auto) 79.7H, Lymphocytes (%) (Auto) 12.3L, Monocytes (%) (Auto) 3.1, Eosinophils (%) (Auto) 0.0, Basophils (%) (Auto) 4.8H, Prothrombin Time 13.1H, Prothromb Time International Ratio 1.2H, Activated Partial Thromboplast Time 35H, Sodium Level 136, Potassium Level 3.9, Chloride Level 102, Carbon Dioxide Level 35H, Anion Gap -1L , Blood Urea Nitrogen 17, Creatinine 1.4H, Estimat Glomerular Filtration Rate 50.4, Glucose Level 98, Calcium Level 7.3L, Total Bilirubin 0.6, Aspartate Amino Transf (AST/SGOT) 41H, Alanine Aminotransferase (ALT/SGPT) 54, Alkaline Phosphatase 98, Total Protein 5.5L, Albumin 1.8L, Globulin 3.7, Albumin/ Globulin Ratio 0.5L Height (Feet): 5 Height (Inches): 7.00 Weight (Pounds): 140 General Appearance: alert EENT: normal ENT inspection Neck: supple Cardiovascular: normal rate Respiratory/Chest: decreased breath sounds Abdomen: normal bowel sounds, non tender, soft Extremities: non-tender Leonel Valderrama MD Feb 05, 2019 10:49
--- NOTE | 2019-02-05 11:19 | NUR ---
NURSE NOTES: second call placed for caser, left message regarding bioethic status for peg placement on pt. awaiting call back.
--- NOTE | 2019-02-05 11:27 | NUR ---
NURSE NOTES: received call from MD Valderrama, updated on pt status, no response from rehabilitation caseworker regarding status for bioethic. MD needs bioethic consent to place. Pt currently NPO. pt has removed both NG and OGT. replacement was difficult due to coiling per pm RN. requests call when consent obtained.
--- NOTE | 2019-02-05 11:39 | NUR ---
NURSE NOTES: Received call from Randolph Lepe, spoke with MD Sparks. Will contact MD Valderrama with status update.
--- NOTE | 2019-02-05 11:51 | Infectious Diseases Prog Note ---
Assessment/Plan Assessment/Plan 68yo gentleman with PMH below presents with fever(100.1 is highest recorded in transfer packet) and worsened congestion from SNF. In the ED, pt was placed on oxygen then BiPAP but ultimately intubated. ID consulted for antimicrobial recommendation. Tmax 100.1 at halfway, SP Leukocytosis, hydrocortisone 01/25-02/02 Lactic acidosis, SP Shock, was on levophed, titrated off, but now on dopamine Likely MRSA PNA COPD? CHF? thick secretions per nurse flu swab negative 01/24 CXR: Extensive opacities within upper lobes demonstrated. In addition there is generalized interstitial densities throughout both lung craig. 01/25 CXR: Bilateral infiltrates appear fairly extensive but unchanged. TTE with EF 30-35% 01/25 sputum cx: MRSA 01/25 urine legionella ag: P 01/27 CXR: Extensive infiltrates bilaterally. Some degree of a superimposed interstitial edema has improved since the last exam. Endotracheal tube and NG tube remain in satisfactory in position. 01/28 CXR: Extensive bilateral infiltrates are again demonstrated without change. Tubes and lines are stable. 01/28 sputum cx: MRSA 01/30 CXR: 1. Overall similar patchy opacities in the lungs, most prominently in the right upper lung and right mid and lower lung. Probable small bilateral pleural effusions. 2. Endotracheal tube terminates in the region of the lower thoracic aorta above the cristina. Enteric tube courses past the diaphragm and out of the [id number], but the sidehole is seen near the GE junction. 02/02 CXR: Interim removal of previously demonstrated nasogastric tube and endotracheal tube. Right arm PICC remains. Bilateral fairly extensive interstitial opacities persist, unchanged. There is a small left pleural effusion again demonstrated 02/04 CXR: Patchy interstitial prominence demonstrated bilaterally. Heart size is stable. Possible UTI? new mcmahon placed in ED 01/25 UA 15-20 WBC 01/25 Ucx: NG Renal US: Nonobstructive stones in the left kidney demonstrated. Bilateral renal cysts. Limited evaluation due to body habitus. r/o bacteremia 01/25 BCx: ngtd 01/31 bcx: ngtd Failed Swallow evaluation 02/04 at risk for aspiration pneumonitis and pneumonia No diarrhea HIV test negative MRSA screen positive RLE skin graft b/l LE heel pressure ulcers and sacral ulcer Tobacco abuse COPD HTN Kidney cancer OA CKD Anemia Schizophrenia PVD CHF Plan: Linezolid #6/10 02/01 SP Azithromycin #5/5 for atypicals 01/31 Ertapenem #8 01/31 DC Amikacin and vancomycin #6 SP cefepime #1 SP flagyl #1 SP vancomycin #1 f/u repeat bcx aspiration precaution, elevate HOB, oral care, frequent suction pulmonary toilet, chest PT DVT PPX discussed with RN Thank you for this consult. [facility] will continue to follow the patient with you. Subjective Allergies: Coded Allergies: No Known Allergies (Unverified , 01/24/19) Subjective Afebrile. WBC stable. Denies sob or abdominal pain. Doapmine @3 failed swallow. Ethics declined PEG. NGT planned for today. One large soft BM at 4AM pooling oral secretion. Objective Vital Signs Last 24 Hour Vital Signs Date Time Temp Pulse Resp B/P (MAP) Pulse Ox O2 Delivery O2 Flow Rate FiO2 02/05/19 11:00 107/50 02/05/19 10:45 69 29 101/46 (64) 93 02/05/19 10:30 73 18 89/55 (66) 97 02/05/19 10:15 73 20 74/51 (59) 97 02/05/19 10:00 64 26 78/42 (54) 99 02/05/19 09:30 85 24 100/50 (67) 91 02/05/19 09:21 77 22 86/42 (57) 95 02/05/19 09:20 78 25 87/51 (63) 95 02/05/19 09:15 68 32 87/41 (56) 94 02/05/19 09:00 100/50 02/05/19 09:00 99.7 66 24 94/42 (59) 99 02/05/19 08:15 74 28 106/56 (73) 99 02/05/19 08:00 81 17 108/48 (68) 97 02/05/19 08:00 Venturi Mask 4.0 02/05/19 08:00 73 02/05/19 07:00 70 21 109/53 (71) 98 02/05/19 07:00 109/53 02/05/19 06:50 99 Venturi Mask 4.0 31 02/05/19 06:30 66 22 104/51 (68) 97 11/22/19 06:00 117/54 02/05/19 06:00 73 26 117/54 (75) 99 02/05/19 05:45 80 25 111/48 (69) 95 02/05/19 05:30 72 22 110/51 (70) 97 02/05/19 05:15 72 24 115/63 (80) 98 02/05/19 05:00 77 21 109/59 (76) 98 02/05/19 04:45 89 21 78/50 (59) 95 02/05/19 04:37 93 20 65/44 (51) 94 02/05/19 04:30 61/32 02/05/19 04:30 80 24 61/32 (42) 90 02/05/19 04:15 78 24 89/56 (67) 97 02/05/19 04:08 79 22 91/51 (64) 94 02/05/19 04:00 Venturi Mask 4.0 02/05/19 04:00 75/49 02/05/19 04:00 99.0 75 18 75/49 (58) 96 02/05/19 03:45 70 27 97/52 (67) 98 02/05/19 03:30 77 23 91/52 (65) 99 02/05/19 03:18 76 02/05/19 03:16 87 25 80/47 (58) 94 02/05/19 03:15 83 18 74/46 (55) 93 02/05/19 03:00 93/48 02/05/19 03:00 70 29 93/48 (63) 93 02/05/19 02:45 74 29 96/52 (67) 96 02/05/19 02:30 68 34 82/49 (60) 88 02/05/19 02:15 71 26 97/53 (68) 98 02/05/19 02:00 103/58 02/05/19 02:00 76 21 103/58 (73) 98 02/05/19 01:45 72 27 86/49 (61) 94 02/05/19 01:30 72 22 90/53 (65) 98 02/05/19 01:23 71 26 83/47 (59) 95 02/05/19 01:15 72 27 77/43 (54) 94 02/05/19 01:00 78 23 85/37 (53) 96 02/05/19 01:00 85/37 02/05/19 00:45 70 26 92/52 (65) 96 02/05/19 00:30 97/51 02/05/19 00:30 70 24 97/51 (66) 98 02/05/19 00:15 80 24 86/52 (63) 99 02/05/19 00:00 98.4 76 29 88/50 (63) 99 02/05/19 00:00 75 02/05/19 00:00 Venturi Mask 4.0 02/05/19 00:00 88/50 02/04/19 23:45 76 25 102/57 (72) 99 02/04/19 23:30 75 29 100/59 (73) 99 02/04/19 23:15 81 21 82/52 (62) 95 02/04/19 23:00 74 29 97/52 (67) 98 02/04/19 23:00 97/52 02/04/19 22:45 75 31 94/52 (66) 97 02/04/19 22:45 94/52 02/04/19 22:30 76 19 60/51 (54) 98 02/04/19 22:15 74 36 125/67 (86) 99 02/04/19 22:15 128/67 02/04/19 22:00 66 35 152/64 (93) 99 02/04/19 21:45 67 33 148/68 (94) 100 02/04/19 21:45 148/68 02/04/19 21:30 83 21 112/57 (75) 98 02/04/19 21:15 82 21 81/51 (61) 97 02/04/19 21:00 87 27 97/61 (73) 94 02/04/19 21:00 97/61 02/04/19 20:54 96 23 59/47 (51) 97 02/04/19 20:45 96 02/04/19 20:30 75 21 96/56 (69) 98 02/04/19 20:30 96/56 02/04/19 20:15 79 24 82/46 (58) 98 02/04/19 20:05 73 18 83/54 (64) 98 02/04/19 20:03 100 Venturi Mask 4.0 30 02/04/19 20:00 Venturi Mask 4.0 02/04/19 20:00 53/35 02/04/19 20:00 97.7 71 22 53/35 (41) 99 02/04/19 19:48 76/48 02/04/19 19:45 73 23 76/48 (57) 99 02/04/19 19:30 77 23 84/54 (64) 99 02/04/19 19:29 83 02/04/19 19:15 82 29 106/65 (79) 98 02/04/19 19:00 75 29 97/47 (64) 99 02/04/19 18:30 81 22 88/44 (59) 99 02/04/19 18:00 81 26 80/53 (62) 98 02/04/19 17:00 81 30 135/71 (92) 99 02/04/19 16:00 98.4 90 20 121/74 (90) 99 02/04/19 16:00 Venturi Mask 4.0 02/04/19 16:00 91 02/04/19 15:30 94 25 146/76 (99) 99 02/04/19 15:00 91 31 123/67 (85) 98 02/04/19 14:30 94 39 144/71 (95) 99 02/04/19 14:00 94 29 93/60 (71) 99 02/04/19 13:30 93 24 147/88 (107) 98 02/04/19 13:00 128 20 72/45 (54) 96 02/04/19 12:30 114 19 177/95 (122) 96 02/04/19 12:00 Venturi Mask 4.0 02/04/19 12:00 98.7 62 40 173/101 (125) 97 02/04/19 12:00 107 Height (Feet): 5 Height (Inches): 7.00 Weight (Pounds): 140 Objective Gen: NAD HEENT: anicteric sclera. CV: RRR. Resp: coarse. equal chest rise. Abd: soft. normoactive Bs+ Neuro: awake. appropriate Skin: RLE skin graft Laboratory Tests Test 02/05/19 03:00 White Blood Count 14.9 K/UL (4.8-10.8) H Red Blood Count 4.48 M/UL (4.70-6.10) L Hemoglobin 13.5 G/DL (14.2-18.0) L Hematocrit 41.9 % (42.0-52.0) L Mean Corpuscular Volume 94 FL (80-99) Mean Corpuscular Hemoglobin 30.1 PG (27.0-31.0) Mean Corpuscular Hemoglobin Concent 32.2 G/DL (32.0-36.0) Red Cell Distribution Width 14.2 % (11.6-14.8) Platelet Count 292 K/UL (150-450) Mean Platelet Volume 4.5 FL (6.5-10.1) L Neutrophils (%) (Auto) 79.7 % (45.0-75.0) H Lymphocytes (%) (Auto) 12.3 % (20.0-45.0) L Monocytes (%) (Auto) 3.1 % (1.0-10.0) Eosinophils (%) (Auto) 0.0 % (0.0-3.0) Basophils (%) (Auto) 4.8 % (0.0-2.0) H Prothrombin Time 13.1 SEC (9.30-11.50) H Prothromb Time International Ratio 1.2 (0.9-1.1) H Activated Partial Thromboplast Time 35 SEC (23-33) H Sodium Level 136 MMOL/L (136-145) Potassium Level 3.9 MMOL/L (3.5-5.1) Chloride Level 102 MMOL/L (98-107) Carbon Dioxide Level 35 MMOL/L (21-32) H Anion Gap -1 mmol/L (5-15) L Blood Urea Nitrogen 17 mg/dL (7-18) Creatinine 1.4 MG/DL (0.55-1.30) H Estimat Glomerular Filtration Rate 50.4 mL/min (>60) Glucose Level 98 MG/DL (74-106) Calcium Level 7.3 MG/DL (8.5-10.1) L Total Bilirubin 0.6 MG/DL (0.2-1.0) Aspartate Amino Transf (AST/SGOT) 41 U/L (15-37) H Alanine Aminotransferase (ALT/SGPT) 54 U/L (12-78) Alkaline Phosphatase 98 U/L (46-116) Total Protein 5.5 G/DL (6.4-8.2) L Albumin 1.8 G/DL (3.4-5.0) L Globulin 3.7 g/dL Albumin/Globulin Ratio 0.5 (1.0-2.7) L Current Medications Medications (Trade) Dose Ordered Sig/Ricardo Route PRN Reason Start Time Stop Time Status Last Admin Dose Admin Acetaminophen (Tylenol) 650 mg Q4H PRN ORAL fever 01/24/19 20:00 02/23/19 19:59 Ascorbic Acid (Vitamin C) 250 mg TWICE A DAY ORAL 01/27/19 18:00 02/26/19 17:59 02/04/19 08:44 Barium Sulfate (Varibar Honey) 250 ml NOW PRN RAD 02/04/19 09:30 02/07/19 09:17 Barium Sulfate (Varibar [place]) 240 ml NOW PRN RAD 02/04/19 09:30 02/07/19 09:17 Barium Sulfate (Varibar Pudding) 230 ml NOW PRN RAD 02/04/19 09:30 02/07/19 09:17 Chlorhexidine Gluconate (Roseanna-Hex 2%) 1 applic DAILY@2000 TOPIC 01/25/19 20:00 02/24/19 19:59 02/04/19 19:52 Dextrose (Dextrose 50%) 25 ml Q30M PRN IV Hypoglycemia 01/25/19 19:00 02/24/19 18:59 Dextrose (Dextrose 50%) 50 ml Q30M PRN IV Hypoglycemia 01/25/19 19:00 02/24/19 18:59 Dopamine HCl/ Dextrose 250 ml @ 0 mls/hr Q24H IV 02/04/19 19:44 03/06/19 19:43 02/04/19 19:48 Heparin Sodium (Porcine) (Heparin 5000 units/ml) 5,000 units EVERY 12 HOURS SUBQ 01/24/19 21:00 02/23/19 20:59 02/04/19 21:08 Insulin Aspart (NovoLOG) EVERY 6 HOURS SUBQ 01/26/19 00:00 02/25/19 00:00 02/03/19 17:19 Linezolid 300 ml @ 300 mls/hr Q12HR IVPB 01/31/19 09:00 02/08/19 23:59 02/05/19 09:36 Lorazepam (Ativan 2mg/ml 1ml) 2 mg Q2H PRN IV For Anxiety 01/30/19 08:00 02/06/19 07:59 Memantine (Namenda) 5 mg DAILY ORAL 02/04/19 09:00 03/06/19 08:59 02/04/19 08:43 Midodrine (Pro-Amatine) 10 mg THREE TIMES A DAY NG 02/04/19 18:00 03/01/19 12:59 Pantoprazole (Protonix) 40 mg DAILY IVP 01/25/19 09:00 02/24/19 08:59 02/05/19 09:36 Polyethylene Glycol (Miralax) 17 gm DAILYPRN PRN ORAL Constipation 01/24/19 20:00 02/23/19 19:59 02/01/19 05:47 Potassium Chloride (K-Dur) 40 meq TWICE A DAY NG 01/27/19 11:45 02/26/19 11:44 02/04/19 08:44 Quetiapine Fumarate (SEROqueL) 25 mg QHS ORAL 02/03/19 21:00 03/05/19 20:59 02/03/19 20:36 Sodium Chloride 1,000 ml @ 100 mls/hr Q10H IV 02/04/19 19:45 03/06/19 19:44 02/05/19 05:31 Theophylline (Saw-Dur) 100 mg EVERY 12 HOURS ORAL 02/03/19 13:15 03/05/19 13:14 02/04/19 08:43 Pili Lenz MD Feb 05, 2019 11:51
--- NOTE | 2019-02-05 12:29 | General Progress Note ---
Progress Note Progress Note Bioethics Asked to consult on this 68 year old unrepresented male who has diagnoses on chart of dementia/schizophrenia and multiple medical problems including renal ca and recent sepsis. He has failed swallow study and is considered for PEG. Dr. Knowles (cardiology ) reports that the patient has responded appropriately to his questions some days but has not been responsive on others. If his dementia is advanced it would be inappropriate to place a feeding tube according to guidelines of several organizations including the Biomedical Ethics Committee of the [facility] and [facility] [place] If however his dementia is not advanced a G tube might be appropriate. This can best be assessed by the Attending Physician. Will present at the next full Bioethics Committee Meeting. Manuel Yoon MD, MD Feb 05, 2019 12:29
--- NOTE | 2019-02-05 12:47 | NUR ---
NURSE NOTES: pt restless. Ativan 2mg/1ml ivp administered per order. bp 120/56. sating 98%. MD Lenz here to see pt. no peg tube placement for now, will attempt ngt insertion.
--- NOTE | 2019-02-05 13:00 | NUR ---
NURSE NOTES: Late entry: pt positioned in high fowlers. attempt made three separate times to place ngt 12fr. pt struggles and tubing coils and comes out mouth. will contact Gi to place tubing.
--- NOTE | 2019-02-05 13:13 | Nephrology Progress Note ---
Assessment/Plan Problem List: (1) Renal failure (ARF), acute on chronic (2) Acute respiratory failure (3) Septic shock (4) Bradyarrhythmia Assessment Renal failure- Likely acute on Chronic- Cr lower Acute respiratory failure- intubated on Vent Septic Shock- On pressors COPD PVD Schizophrenia Plan Now ( 02/02) extubated- tolerating well pulmonary support aim to taper dopamin stop IV fluid renal dose dopamin for low HR K supplement down on hydration One dose IV Lasix mag and Phos and K supplement as needed 2D Echo Low Ej Fx - Global Hypokinesis Avoid nephrotoxics afterload reduction monitor renal parameters urine studies ADRIAN IMPRESSION: Nonobstructive stones in the left kidney demonstrated. Bilateral renal cysts. Subjective ROS Limited/Unobtainable: No Constitutional: Reports: malaise, weakness Objective Objective Last 24 Hour Vital Signs Date Time Temp Pulse Resp B/P (MAP) Pulse Ox O2 Delivery O2 Flow Rate FiO2 02/05/19 13:00 73 41 118/58 (78) 92 02/05/19 12:45 69 35 133/59 (83) 99 02/05/19 12:30 98.8 76 28 120/56 (77) 97 02/05/19 12:00 Nasal Cannula 3.0 02/05/19 12:00 74 46 129/58 (81) 95 02/05/19 12:00 120/56 02/05/19 12:00 74 46 129/58 (81) 95 02/05/19 12:00 73 02/05/19 11:45 82 24 150/58 (88) 100 02/05/19 11:30 69 28 130/54 (79) 95 02/05/19 11:15 62 29 107/50 (69) 100 02/05/19 11:00 107/50 02/05/19 11:00 66 30 114/51 (72) 94 02/05/19 10:45 69 29 101/46 (64) 93 02/05/19 10:30 73 18 89/55 (66) 97 02/05/19 10:15 73 20 74/51 (59) 97 02/05/19 10:00 64 26 78/42 (54) 99 02/05/19 09:30 85 24 100/50 (67) 91 02/05/19 09:21 77 22 86/42 (57) 95 02/05/19 09:20 78 25 87/51 (63) 95 02/05/19 09:15 68 32 87/41 (56) 94 02/05/19 09:00 100/50 02/05/19 09:00 99.7 66 24 94/42 (59) 99 02/05/19 08:15 74 28 106/56 (73) 99 02/05/19 08:00 81 17 108/48 (68) 97 02/05/19 08:00 Venturi Mask 4.0 02/05/19 08:00 73 02/05/19 07:00 70 21 109/53 (71) 98 02/05/19 07:00 109/53 02/05/19 06:50 99 Venturi Mask 4.0 31 02/05/19 06:30 66 22 104/51 (68) 97 02/05/19 06:00 117/54 02/05/19 06:00 73 26 117/54 (75) 99 02/05/19 05:45 80 25 111/48 (69) 95 02/05/19 05:30 72 22 110/51 (70) 97 02/05/19 05:15 72 24 115/63 (80) 98 02/05/19 05:00 77 21 109/59 (76) 98 02/05/19 04:45 89 21 78/50 (59) 95 02/05/19 04:37 93 20 65/44 (51) 94 02/05/19 04:30 61/32 02/05/19 04:30 80 24 61/32 (42) 90 02/05/19 04:15 78 24 89/56 (67) 97 02/05/19 04:08 79 22 91/51 (64) 94 02/05/19 04:00 Venturi Mask 4.0 02/05/19 04:00 75/49 02/05/19 04:00 99.0 75 18 75/49 (58) 96 02/05/19 03:45 70 27 97/52 (67) 98 02/05/19 03:30 77 23 91/52 (65) 99 02/05/19 03:18 76 02/05/19 03:16 87 25 80/47 (58) 94 02/05/19 03:15 83 18 74/46 (55) 93 02/05/19 03:00 93/48 02/05/19 03:00 70 29 93/48 (63) 93 02/05/19 02:45 74 29 96/52 (67) 96 02/05/19 02:30 68 34 82/49 (60) 88 02/05/19 02:15 71 26 97/53 (68) 98 02/05/19 02:00 103/58 02/05/19 02:00 76 21 103/58 (73) 98 02/05/19 01:45 72 27 86/49 (61) 94 02/05/19 01:30 72 22 90/53 (65) 98 02/05/19 01:23 71 26 83/47 (59) 95 02/05/19 01:15 72 27 77/43 (54) 94 02/05/19 01:00 78 23 85/37 (53) 96 02/05/19 01:00 85/37 02/05/19 00:45 70 26 92/52 (65) 96 02/05/19 00:30 97/51 02/05/19 00:30 70 24 97/51 (66) 98 02/05/19 00:15 80 24 86/52 (63) 99 02/05/19 00:00 98.4 76 29 88/50 (63) 99 02/05/19 00:00 75 02/05/19 00:00 Venturi Mask 4.0 02/05/19 00:00 88/50 02/04/19 23:45 76 25 102/57 (72) 99 02/04/19 23:30 75 29 100/59 (73) 99 02/04/19 23:15 81 21 82/52 (62) 95 02/04/19 23:00 74 29 97/52 (67) 98 02/04/19 23:00 97/52 02/04/19 22:45 75 31 94/52 (66) 97 02/04/19 22:45 94/52 02/04/19 22:30 76 19 60/51 (54) 98 02/04/19 22:15 74 36 125/67 (86) 99 02/04/19 22:15 128/67 02/04/19 22:00 66 35 152/64 (93) 99 02/04/19 21:45 67 33 148/68 (94) 100 02/04/19 21:45 148/68 02/04/19 21:30 83 21 112/57 (75) 98 02/04/19 21:15 82 21 81/51 (61) 97 02/04/19 21:00 87 27 97/61 (73) 94 02/04/19 21:00 97/61 02/04/19 20:54 96 23 59/47 (51) 97 02/04/19 20:45 96 02/04/19 20:30 75 21 96/56 (69) 98 02/04/19 20:30 96/56 02/04/19 20:15 79 24 82/46 (58) 98 02/04/19 20:05 73 18 83/54 (64) 98 02/04/19 20:03 100 Venturi Mask 4.0 30 02/04/19 20:00 Venturi Mask 4.0 02/04/19 20:00 53/35 02/04/19 20:00 97.7 71 22 53/35 (41) 99 02/04/19 19:48 76/48 02/04/19 19:45 73 23 76/48 (57) 99 02/04/19 19:30 77 23 84/54 (64) 99 02/04/19 19:29 83 02/04/19 19:15 82 29 106/65 (79) 98 02/04/19 19:00 75 29 97/47 (64) 99 02/04/19 18:30 81 22 88/44 (59) 99 02/04/19 18:00 81 26 80/53 (62) 98 02/04/19 17:00 81 30 135/71 (92) 99 02/04/19 16:00 98.4 90 20 121/74 (90) 99 02/04/19 16:00 Venturi Mask 4.0 02/04/19 16:00 91 02/04/19 15:30 94 25 146/76 (99) 99 02/04/19 15:00 91 31 123/67 (85) 98 02/04/19 14:30 94 39 144/71 (95) 99 02/04/19 14:00 94 29 93/60 (71) 99 02/04/19 13:30 93 24 147/88 (107) 98 Intake and Output 02/04/19 02/05/19 19:00 07:00 Intake Total 417.876 ml 2029.78 ml Output Total 795 ml 1330 ml Balance -377.124 ml 699.78 ml IV Total 417.876 ml 2029.78 ml Output Urine Total 795 ml 1330 ml # Bowel Movements 2 Laboratory Tests 02/05/19 03:00: White Blood Count 14.9H, Red Blood Count 4.48L, Hemoglobin 13.5L, Hematocrit 41.9L, Mean Corpuscular Volume 94, Mean Corpuscular Hemoglobin 30.1, Mean Corpuscular Hemoglobin Concent 32.2, Red Cell Distribution Width 14.2, Platelet Count 292, Mean Platelet Volume 4.5L, Neutrophils (%) (Auto) 79.7H, Lymphocytes (%) (Auto) 12.3L, Monocytes (%) (Auto) 3.1, Eosinophils (%) (Auto) 0.0, Basophils (%) (Auto) 4.8H, Prothrombin Time 13.1H, Prothromb Time International Ratio 1.2H, Activated Partial Thromboplast Time 35H, Sodium Level 136, Potassium Level 3.9, Chloride Level 102, Carbon Dioxide Level 35H, Anion Gap -1L , Blood Urea Nitrogen 17, Creatinine 1.4H, Estimat Glomerular Filtration Rate 50.4, Glucose Level 98, Calcium Level 7.3L, Total Bilirubin 0.6, Aspartate Amino Transf (AST/SGOT) 41H, Alanine Aminotransferase (ALT/SGPT) 54, Alkaline Phosphatase 98, Total Protein 5.5L, Albumin 1.8L, Globulin 3.7, Albumin/ Globulin Ratio 0.5L Height (Feet): 5 Height (Inches): 7.00 Weight (Pounds): 140 General Appearance: no apparent distress Cardiovascular: normal rate Respiratory/Chest: decreased breath sounds Abdomen: soft Bienvenido Gonzalez MD Feb 05, 2019 13:13
--- NOTE | 2019-02-05 13:36 | NUR ---
ST NOTES: SWALLOW STATUS: PATIENT VARIABLY ALERT. REFUSING PEG PER RNARMEN. REVIEWED MOD BARIUM SWALLOW STUDY WITH RN AND COMPLETED REPORT (SEE FULL REPORT). RN TO PUT NGT IN IF POSSIBLE. STAFF AWARE OF ASPIRATION PRECAUTIONS WITH TUBE FEEDINGS WHEN RUNNING. PLAN: CONTINUE WITH ORAL CARE AND NONORAL FEEDINGS. TRIAL TX WITH IT ADMINISTRATOR ON FRIDAY FOR SWALLOW TX.
--- NOTE | 2019-02-05 14:36 | NUR ---
NURSE NOTES: pt desating to 80's. RR 24. attempt made to suction pt. pt resistive to care. shakes head and bites on yanker. able to obtain sats low 90's. called R.T for deep suction.
--- NOTE | 2019-02-05 14:45 | Progress Note ---
DATE: 02/05/2019 SUBJECTIVE: This is a 68-year-old male patient, who confusion. He has poor appetite and loss of interest in activity. That is why, he does require daily psychiatric consultation. He has sepsis, tachycardia, respiratory insufficiency. He has altered mental status as well and confusion, decline in cognition below his baseline. That is why, his attending physician has requested daily psychiatric consultation. MENTAL STATUS EXAMINATION: This is a 68-year-old male. Appearance is disheveled. Attitude, irritable and agitated. Affect, guarded and restricted. Intellect poor. Mood, depressed and anxious. Motor activity, psychomotor agitation. Attention span is poor. Orientation x2. Speech is low volume, slurred. Thought process, disorganized and illogical. Insight and judgment is poor. DIAGNOSIS: Paranoid schizophrenia with acute exacerbation. PLAN: Plan for this patient, treat him with psychotropic medication regimen consisting of Ativan 2 mg IV q.2 hours p.r.n. anxiety and agitation, Namenda 5 mg daily, and Seroquel 25 mg at bedtime. A 20 minutes of cognitive behavioral therapy to help him identify automatic negative thoughts . A 20 minutes of behavioral management provided. Chart reviewed. Discussed with staff. Seen and assessed at bedside. Stacie Paige M.D. DR: MEY JOB#: [id number] CC:
--- NOTE | 2019-02-05 15:37 | Surgery Progress Note ---
Surgery Progress Note Subjective Additional Comments awake responsive combative does not answer to questions asked bioethics input appreciated and noted unfortunately patient does not tolerate ng tube so if plan to cont with full care should have peg Objective Last 24 Hour Vital Signs Date Time Temp Pulse Resp B/P (MAP) Pulse Ox O2 Delivery O2 Flow Rate FiO2 02/05/19 15:00 101/55 02/05/19 15:00 79 28 101/55 (70) 97 02/05/19 14:54 74 26 73/39 (50) 80 02/05/19 14:45 75 24 70/42 (51) 74 02/05/19 14:30 94 24 85/49 (61) 85 02/05/19 14:15 73 31 106/54 (71) 97 02/05/19 14:00 66 35 104/56 (72) 100 02/05/19 13:00 73 41 118/58 (78) 92 02/05/19 12:45 69 35 133/59 (83) 99 02/05/19 12:30 98.8 76 28 120/56 (77) 97 02/05/19 12:00 Nasal Cannula 3.0 02/05/19 12:00 74 46 129/58 (81) 95 02/05/19 12:00 120/56 02/05/19 12:00 74 46 129/58 (81) 95 02/05/19 12:00 73 02/05/19 11:45 82 24 150/58 (88) 100 02/05/19 11:30 69 28 130/54 (79) 95 02/05/19 11:15 62 29 107/50 (69) 100 02/05/19 11:00 107/50 02/05/19 11:00 66 30 114/51 (72) 94 02/05/19 10:45 69 29 101/46 (64) 93 02/05/19 10:30 73 18 89/55 (66) 97 02/05/19 10:15 73 20 74/51 (59) 97 02/05/19 10:00 64 26 78/42 (54) 99 02/05/19 09:30 85 24 100/50 (67) 91 02/05/19 09:21 77 22 86/42 (57) 95 02/05/19 09:20 78 25 87/51 (63) 95 02/05/19 09:15 68 32 87/41 (56) 94 02/05/19 09:00 100/50 02/05/19 09:00 99.7 66 24 94/42 (59) 99 02/05/19 08:15 74 28 106/56 (73) 99 02/05/19 08:00 81 17 108/48 (68) 97 02/05/19 08:00 Venturi Mask 4.0 02/05/19 08:00 73 02/05/19 07:00 70 21 109/53 (71) 98 02/05/19 07:00 109/53 02/05/19 06:50 99 Venturi Mask 4.0 31 02/05/19 06:30 66 22 104/51 (68) 97 02/05/19 06:00 117/54 02/05/19 06:00 73 26 117/54 (75) 99 02/05/19 05:45 80 25 111/48 (69) 95 02/05/19 05:30 72 22 110/51 (70) 97 02/05/19 05:15 72 24 115/63 (80) 98 02/05/19 05:00 77 21 109/59 (76) 98 02/05/19 04:45 89 21 78/50 (59) 95 02/05/19 04:37 93 20 65/44 (51) 94 02/05/19 04:30 61/32 02/05/19 04:30 80 24 61/32 (42) 90 02/05/19 04:15 78 24 89/56 (67) 97 02/05/19 04:08 79 22 91/51 (64) 94 02/05/19 04:00 Venturi Mask 4.0 02/05/19 04:00 75/49 02/05/19 04:00 99.0 75 18 75/49 (58) 96 02/05/19 03:45 70 27 97/52 (67) 98 02/05/19 03:30 77 23 91/52 (65) 99 02/05/19 03:18 76 02/05/19 03:16 87 25 80/47 (58) 94 02/05/19 03:15 83 18 74/46 (55) 93 02/05/19 03:00 93/48 02/05/19 03:00 70 29 93/48 (63) 93 02/05/19 02:45 74 29 96/52 (67) 96 02/05/19 02:30 68 34 82/49 (60) 88 02/05/19 02:15 71 26 97/53 (68) 98 02/05/19 02:00 103/58 02/05/19 02:00 76 21 103/58 (73) 98 02/05/19 01:45 72 27 86/49 (61) 94 02/05/19 01:30 72 22 90/53 (65) 98 02/05/19 01:23 71 26 83/47 (59) 95 02/05/19 01:15 72 27 77/43 (54) 94 02/05/19 01:00 78 23 85/37 (53) 96 02/05/19 01:00 85/37 02/05/19 00:45 70 26 92/52 (65) 96 02/05/19 00:30 97/51 02/05/19 00:30 70 24 97/51 (66) 98 02/05/19 00:15 80 24 86/52 (63) 99 02/05/19 00:00 98.4 76 29 88/50 (63) 99 02/05/19 00:00 75 02/05/19 00:00 Venturi Mask 4.0 02/05/19 00:00 88/50 02/04/19 23:45 76 25 102/57 (72) 99 02/04/19 23:30 75 29 100/59 (73) 99 02/04/19 23:15 81 21 82/52 (62) 95 02/04/19 23:00 74 29 97/52 (67) 98 02/04/19 23:00 97/52 02/04/19 22:45 75 31 94/52 (66) 97 02/04/19 22:45 94/52 02/04/19 22:30 76 19 60/51 (54) 98 02/04/19 22:15 74 36 125/67 (86) 99 02/04/19 22:15 128/67 02/04/19 22:00 66 35 152/64 (93) 99 02/04/19 21:45 67 33 148/68 (94) 100 02/04/19 21:45 148/68 02/04/19 21:30 83 21 112/57 (75) 98 02/04/19 21:15 82 21 81/51 (61) 97 02/04/19 21:00 87 27 97/61 (73) 94 02/04/19 21:00 97/61 02/04/19 20:54 96 23 59/47 (51) 97 02/04/19 20:45 96 02/04/19 20:30 75 21 96/56 (69) 98 02/04/19 20:30 96/56 02/04/19 20:15 79 24 82/46 (58) 98 02/04/19 20:05 73 18 83/54 (64) 98 02/04/19 20:03 100 Venturi Mask 4.0 30 02/04/19 20:00 Venturi Mask 4.0 02/04/19 20:00 53/35 02/04/19 20:00 97.7 71 22 53/35 (41) 99 02/04/19 19:48 76/48 02/04/19 19:45 73 23 76/48 (57) 99 02/04/19 19:30 77 23 84/54 (64) 99 02/04/19 19:29 83 02/04/19 19:15 82 29 106/65 (79) 98 02/04/19 19:00 75 29 97/47 (64) 99 02/04/19 18:30 81 22 88/44 (59) 99 02/04/19 18:00 81 26 80/53 (62) 98 02/04/19 17:00 81 30 135/71 (92) 99 02/04/19 16:00 98.4 90 20 121/74 (90) 99 02/04/19 16:00 Venturi Mask 4.0 02/04/19 16:00 91 I&O Intake and Output 02/04/19 02/05/19 19:00 07:00 Intake Total 417.876 ml 2029.78 ml Output Total 795 ml 1330 ml Balance -377.124 ml 699.78 ml IV Total 417.876 ml 2029.78 ml Output Urine Total 795 ml 1330 ml # Bowel Movements 2 Dressing: other Wound: other Drains: other Cardiovascular: RSR Respiratory: decreased breath sounds Abdomen: soft, present bowel sounds, non-distended Extremities: no cyanosis, other Laboratory Tests Test 02/05/19 03:00 White Blood Count 14.9 K/UL (4.8-10.8) H Red Blood Count 4.48 M/UL (4.70-6.10) L Hemoglobin 13.5 G/DL (14.2-18.0) L Hematocrit 41.9 % (42.0-52.0) L Mean Corpuscular Volume 94 FL (80-99) Mean Corpuscular Hemoglobin 30.1 PG (27.0-31.0) Mean Corpuscular Hemoglobin Concent 32.2 G/DL (32.0-36.0) Red Cell Distribution Width 14.2 % (11.6-14.8) Platelet Count 292 K/UL (150-450) Mean Platelet Volume 4.5 FL (6.5-10.1) L Neutrophils (%) (Auto) 79.7 % (45.0-75.0) H Lymphocytes (%) (Auto) 12.3 % (20.0-45.0) L Monocytes (%) (Auto) 3.1 % (1.0-10.0) Eosinophils (%) (Auto) 0.0 % (0.0-3.0) Basophils (%) (Auto) 4.8 % (0.0-2.0) H Prothrombin Time 13.1 SEC (9.30-11.50) H Prothromb Time International Ratio 1.2 (0.9-1.1) H Activated Partial Thromboplast Time 35 SEC (23-33) H Sodium Level 136 MMOL/L (136-145) Potassium Level 3.9 MMOL/L (3.5-5.1) Chloride Level 102 MMOL/L (98-107) Carbon Dioxide Level 35 MMOL/L (21-32) H Anion Gap -1 mmol/L (5-15) L Blood Urea Nitrogen 17 mg/dL (7-18) Creatinine 1.4 MG/DL (0.55-1.30) H Estimat Glomerular Filtration Rate 50.4 mL/min (>60) Glucose Level 98 MG/DL (74-106) Calcium Level 7.3 MG/DL (8.5-10.1) L Total Bilirubin 0.6 MG/DL (0.2-1.0) Aspartate Amino Transf (AST/SGOT) 41 U/L (15-37) H Alanine Aminotransferase (ALT/SGPT) 54 U/L (12-78) Alkaline Phosphatase 98 U/L (46-116) Total Protein 5.5 G/DL (6.4-8.2) L Albumin 1.8 G/DL (3.4-5.0) L Globulin 3.7 g/dL Albumin/Globulin Ratio 0.5 (1.0-2.7) L Plan Problems: (1) Sepsis Assessment & Plan: afebrile, HD improving HR -noted cardiology input leukocytosis lactic acidosis resolved slowly improving -IV abx as per ID -trend labs -swallow eval not ready so wait until once more responsive -PEG as per GI CONTINUE WIT NPO STATUS AND ORAL CARE (NO PO MEDS EXPLORE ALTERNATIVES WITH PHARMACY) AND INSERT NGT IF POSSIBLE. CONSIDER LONGER TERM NONORAL FEEDING OPTIONS. SKILLED DYSPHAGIA MANAGEMENT AND TX (TRIAL TX ? COMPLIANCE IP AND AT SNF). WILL NEED A REPEAT MOD BARIUM SWALLOW STUDY AN OP AFTER TX AND TIME (2-4 WEEKS) PRIOR TO PO TRIALS AND CLEARANCE FOR MEALS. plan for trial swallow again next week if cont to fail will discuss with team about peg as currently he is fairly alert -will follow with recs thank you (2) Septic shock (3) Wound, open Assessment & Plan: Patient presented on admission with multiple pressure injuries being identified. Non-blanching erythema without induration noted to sacrum ,Right and Left buttocks. Scattered areas that are darker and maroon in color noted within base of wound. Scrotum is also erythematous. Unstageable pressure injury noted to Left heel. Base of wound is 100% necrotic but soft. Erythematous margins with surrounding non-blanching erythema.(L)3.2cm x (W)3cm. no drainage Right heel is boggy with non-blanching erythema.. Keloid scar noted distal R tibia. Partial thickness ulcer noted to dorsal R foot. Base of wound is moist and viable. Small amt serous exudate noted. Scattered small dry scabs noted to dorsal R foot. Tx.Plan: Swab Dorsal R foot and R heel with Betadine. Cover with Optifoam drsg. Change every 3 days and prn. Apply Moisture Barrier Paste to buttocks. Cover sacrum with Optifoam drsg. Change every 3 days and prn. Apply Cavilon Skin Barrier to L heel.Cover with Optifoam drsg. Change every 7 days and prn. APM/JELLY mattress. Reposition at least every 2hours or as tolerated. Off-load heels with pillow. Nutritional Optimization Will monitor while in critical condition DAILY ESTIMATED NEEDS: Needs based on Critical care, sepsis, wounds 69kg 22-30 kcals/kg 8578-1565 total kcals 1.25-2 g protein/kg 86-138 g total protein 25-30 mL/kg 8728-1252 total fluid mLs NUTRITION DIAGNOSIS: Increased kcal and pro needs r/t sepsis, wound healing, and underweight status as evidenced by pt w respiratory distress now intubated, critically elev WBC (*29.7), elev BG (200's), w/ multiple wounds (refer to eval), pt is @88% if [place] Body Weight. CURRENT TF: Glucerna 1.2 @30ml ENTERAL NUTRITION RECOMMENDATIONS: VITAL AF 1.2 @60ml/hr x24 hrs to provide 1440ml, 1728 kcal, 108g pro, 1168ml free H2O - WITH HEMODYNAMIC STABILITY, rec TF change to VITAL 1.2 to better meet est needs. Start @20ml/hr for 6 hrs. Advance as tolerated 10ml/hr q4-6 hrs to goal. - Flush per . HOB over 30 degrees If pt remains on pressor support, rec trophic feeds of Vital 1.2 @5-10ml/hr to maintain gut integrity. ------ ADDITIONAL RECOMMENDATIONS: 1) Per SNF: HT 71 inches, 152 lbs (69.1kg) 2) Wound care: Add DANIELA in 4oz water BID via OGT + VIT C 250mg BID (f/up w/ WC specialist) 3) Monitor lytes daily, replete as needed 4) Daily calibrated bed scale wts Mauricio Anne Feb 05, 2019 15:37
--- NOTE | 2019-02-05 16:01 | NUR ---
NURSE NOTES: pt in bed. vs: BP 1/51, HR 68. pt is verbal. a/ox1 to self. pt in no acute distress. 3L NC sating 98%RR 26, HOB 35. Lung sounds rhonchi throughout. notable cough, productive thick secretions via oral suction. pt npo , NGT placement unsuccessful. Costello draining yellow urine. IV access JONATHAN PICC,dressing intact, patent. dopamine running at 2.2432mcg/kg/min. NS at 100ml/hr. bilateral wrist restraints noted, circulation check completed. pt cleaned and repostioned. bed locked, in low position, will continue to monitor pt.
--- NOTE | 2019-02-05 17:15 | Consultation ---
DATE OF CONSULTATION: 02/04/2019 NOTE: "POOR AUDIO QUALITY" PSYCHOTHERAPY CONSULTATION PROGRESS NOTE CONSULTING PHYSICIAN: Marga Guzman PsyD. TREATING ATTENDING PHYSICIAN: Corey Short D.O. HISTORY OF PRESENT ILLNESS: This patient is a male patient, who is 68 years old. The patient does have a history of schizophrenia. The patient was brought into the hospital for congestion. This patient since has been confused, extremely agitated, and restless. For these reasons, he was referred for psychotherapeutic services. The patient is communicative. He is disorganized and does not recall why he was brought into the hospital. He knows that he is being treated by me, but he could not recall his date, does not recall which hospital this is. The patient has been restless and anxious, requiring soft restraints. He has been helpless. The patient denies suicidal or homicidal thoughts of ideation. At this time, there is no indication of auditory or visual hallucinations. The patient is anxious and restless. PAST MEDICAL HISTORY: Includes history of peripheral vascular disease, COPD, and chronic renal disease. ALLERGIES: The patient has no known drug allergies. SUBSTANCE ABUSE HISTORY: There is no indication of alcohol use, illicit substance use, or smoking cigarettes. PSYCHIATRIC HISTORY: The patient has a history of schizophrenia and has been treated with psychotropic medications in the past. SOCIAL HISTORY: The patient is a 68-year-old single male patient from a senior care facility. Financially sustained through [employer]. MENTAL STATUS EXAMINATION: He is alert and oriented to person. Mood is anxious. Affect is blunted. Thought process is disorganized. He has poor attention and concentration. Poor insight, judgment, and impulse control. DIAGNOSIS: Paranoid schizophrenia. PLAN OF TREATMENT: I assessed this patient. 1. Reality orientation focused on improving cognitive level of function of the patient, who is very confused and disorganized. Oriented to person, place, time, and situation. 2. Attempted to provide him with supportive psychotherapy, encouraging him to address his . I had an extensive review of records. Encouraging the patient to communicate his needs. Plan is to make him medication compliant with positive coping skills . This clinician has reviewed his chart. Discussed treatment with treatment team. Psychotherapeutic service 45 minutes. Marga Guzman PsyD. DR: GANESH JOB#: [id number] CC:
--- NOTE | 2019-02-05 18:00 | NUR ---
NURSE NOTES: late entry: pt required suctioning. desat to 80's post cleaning and reposition. suction provided and 02 sat increased to 95%, rr 21. will continue to monitor pt. called MD Valderrama call center left message regarding unsuccessful placement of ngt, that pt remains npo. awaiting call back
--- NOTE | 2019-02-05 19:21 | NUR ---
NURSE NOTES: Called MD Short regarding changing maintenance fluid to d5w. Left message with call center spoke with Isiah. Awaiting call back.
--- NOTE | 2019-02-05 19:26 | NUR ---
HAND-OFF: Report given to Jalen King pt in no acute distress. endorsed f/u w/ fliud change and npo status
--- NOTE | 2019-02-05 19:30 | NUR ---
NURSE NOTES: CALLED BACK FROM [facility] REGARDING PT'S SITUATION THAT INFORMED PT'S SITUATION, MAREK SAID, WILL CALL BACK SOON. Addendum: 02/05/19 at 1947 by DEISY HIGHTOWER RN NURSE NOTES: WRONG PATIENT.
[2019-02-05] MEDS: Dyna-Hex 2% Top Sol 2oz TOPIC SCH (19:36)
[2019-02-05] MEDS: DOPamine 400mg/250ml 250 ML IV SCH (19:39)
--- NOTE | 2019-02-05 19:55 | NUR ---
NURSE NOTES: PATIENT AWOKE, ORIENTED X1 TO NAME, CONFUSED TO TIME, PLACE AND SITUATION, RESISTANCE TO CARE STATUS, ON FIO2 30 % VENTURI MASK, O2 SATURATION OVER 97%, COUGH WITH DISCHARGE NOTED, HEART RATE 70'S/MIN SR NOTED, ABDOMEN SOFT, NON TENDER, NO BM NOTED, KEPT NPO, NO N/V STATUS, F/C INTACT AND PATENT, THIN YELLOW URINE OUTED, PICC LINE TO RIGHT UPPER ARM, INTACT AND PATENT, ONGOING NS AT 100ML/HR AND DOPAMINE 4.38ML/HR VIA PICC LINE, 2 POINT SOFT RESTRAINTS FOR SAFETY, ON P200 BED, LOCKED BED, KEPT HOB 30 DEGREES AND BED ALARM, PROVIDED CALL LIGHT WITHIN REACH, WILL CONTINUE TO MONITOR.
--- NOTE | 2019-02-05 20:28 | NUR ---
NURSE NOTES: CALLED BACK FROM DR. YOST THAT SAID, "CALL DR. SCHAEFER, ASK NS IV FLUID CONTINUE OR CHANGE REASON WHY EF 30%." AT 2018PM. CALLED DR. SCHAEFER REGARDING DR. YOST'S ORDER THAT MD WAS AWARE, INFORMED PT'S LAB RESULT, VS AND URINE OUT PUT, RECEIVED NEW ORDER AND CARRIED OUT AT 2019PM.
[2019-02-05] MEDS: Hydrocortisone 100mg Inj IV SCH (22:02)
--- NOTE | 2019-02-05 22:10 | NUR ---
NURSE NOTES: REPOSITIONED, RELEASED RESTRAINTS DUE TO FOLLOW COMMANDS, WILL CONTINUE TO MONITOR.
--- NOTE | 2019-02-05 23:49 | NUR ---
NURSE NOTES: PATIENT CALM, NO RESISTANCE TO CARE AND FOLLOW COMMANDS STATUS, DISCONTINUE 2 POINT SOFT RESTRAINTS AT 2345PM, WILL CONTINUE TO MONITOR..
[2019-02-06] VITALS (59 sets, daily range): BP systolic 75–152; BP diastolic 40–79
--- NOTE | 2019-02-06 02:14 | NUR ---
NURSE NOTES: PATIENT ASLEEP STATUS, ON FIO2 30% VENTURI MASK, NO PAIN OR SOB NOTED, WILL CONTINUE TO MONITOR.
--- NOTE | 2019-02-06 04:24 | NUR ---
NURSE NOTES: MORNING CARE WAS DONE, NO BOWEL MOVEMENT STATUS, PATIENT NO RESISTANCE TO CARE, WILL CONTINUE PLAN OF CARE.
--- NOTE | 2019-02-06 05:32 | NUR ---
HAND-OFF: Report given to EUGENIA SARAVIA.
--- NOTE | 2019-02-06 05:33 | NUR ---
NURSE NOTES: Received endorsement from Jalen for continuity of care. Patient opens eyes spontaneously. Able to communicate needs. No shortness of breath. Sinus alanna on the monitor. Dopamine currently at 1.822mcg/kg/min to titrate 1ml Q30 as per order. Patient has lost more than 1kg, order for Dopamine updated. Head of bed elevated. Call light within reach. Bed locked and in low position. Bed alarm on.
[2019-02-06] MEDS ORDERED: DOPamine 400mg/250ml 250 ML IV SCH (05:45)
[2019-02-06 05:48] LABS: HEMATOCRIT 35.9 % (42.0-52.0); HEMOGLOBIN 11.9 G/DL (14.2-18.0); MEAN CORPUSCULAR VOLUME 92 FL (80-99); PLATELET COUNT 83 K/UL (150-450); RED BLOOD COUNT 3.89 M/UL (4.70-6.10); RED CELL DISTRIBUTION WIDTH 14.3 % (11.6-14.8); WHITE BLOOD COUNT 10.4 K/UL (4.8-10.8)
[2019-02-06] MEDS: Hydrocortisone 100mg Inj IV SCH ×3 (05:59→21:56)
[2019-02-06] MEDS: NovoLOG Insulin Flexpen SUBQ SCH ×3 (05:59→18:00)
[2019-02-06] MEDS: DOPamine 400mg/250ml 250 ML IV SCH (06:01)
[2019-02-06 06:15] LABS: ALANINE AMINOTRANSFERASE 47 U/L (12-78); ALBUMIN 1.9 G/DL (3.4-5.0); ALBUMIN/GLOBULIN RATIO 0.5 (1.0-2.7); ALKALINE PHOSPHATASE 102 U/L (46-116); ANION GAP 6 mmol/L (5-15); ASPARTATE AMINO TRANSFERASE 33 U/L (15-37); BILIRUBIN,TOTAL 0.6 MG/DL (0.2-1.0); BLOOD UREA NITROGEN 13 mg/dL (7-18); CALCIUM 7.4 MG/DL (8.5-10.1); CARBON DIOXIDE 29 MMOL/L (21-32); CHLORIDE 103 MMOL/L (98-107); CREATININE 1.2 MG/DL (0.55-1.30); POTASSIUM 3.8 MMOL/L (3.5-5.1); SODIUM 138 MMOL/L (136-145)
[2019-02-06 06:21] LABS: PHOSPHORUS 2.7 MG/DL (2.5-4.9)
--- NOTE | 2019-02-06 06:55 | NUR ---
NURSE NOTES: Patient seen and examined by Dr. Valderrama. Attempted to insert Dubhoff catheter, catheter coils in the mouth.
--- NOTE | 2019-02-06 07:19 | NUR ---
HAND-OFF: Report given to Sebastian Muhammad per SBAR.
--- NOTE | 2019-02-06 07:34 | General Progress Note ---
Assessment/Plan Problem List: (1) DM (diabetes mellitus) ICD Codes: E11.9 - Type 2 diabetes mellitus without complications SNOMED: 38284089 (2) cardiomyopathy with EF of 35% (3) Encounter for PEG (percutaneous endoscopic gastrostomy) ICD Codes: Z43.1 - Encounter for attention to gastrostomy SNOMED: 944472075, 538186648 (4) Dysphagia ICD Codes: R13.10 - Dysphagia, unspecified SNOMED: 26490861, 715489551 (5) Bradyarrhythmia ICD Codes: I49.8 - Other specified cardiac arrhythmias SNOMED: 132130699 (6) Systolic heart failure ICD Codes: I50.20 - Unspecified systolic (congestive) heart failure SNOMED: 435408125 (7) Schizophrenia ICD Codes: F20.9 - Schizophrenia, unspecified SNOMED: 80203191 (8) COPD (chronic obstructive pulmonary disease) ICD Codes: J44.9 - Chronic obstructive pulmonary disease, unspecified SNOMED: 78364039 Qualifiers: Qualified Codes: J44.9 - Chronic obstructive pulmonary disease, unspecified Status: unchanged Assessment/Plan: NGT clogged and removed abd us reviewed repeat LFTS in am failed swallow eval needs peg Bioethic consult recommended against peg if dementia is severe recommend nuerology consult attempt to place NGT failed by me again will try again tomorrow Subjective ROS Limited/Unobtainable: No Allergies: Coded Allergies: No Known Allergies (Unverified , 01/24/19) Objective Last 24 Hour Vital Signs Date Time Temp Pulse Resp B/P (MAP) Pulse Ox O2 Delivery O2 Flow Rate FiO2 02/06/19 06:45 68 22 90/49 (63) 92 02/06/19 06:30 66 23 101/50 (67) 96 02/06/19 06:15 58 25 102/52 (69) 98 02/06/19 06:01 98/48 02/06/19 06:00 64 22 96/48 (64) 98 02/06/19 05:45 69 18 92/51 (65) 100 02/06/19 05:30 56 23 114/52 (72) 99 02/06/19 05:00 114/54 02/06/19 05:00 63 23 114/54 (74) 98 02/06/19 04:45 53 23 117/54 (75) 100 02/06/19 04:30 69 20 85/48 (60) 96 02/06/19 04:15 75 26 83/52 (62) 97 02/06/19 04:00 Venturi Mask 4.0 02/06/19 04:00 100/52 02/06/19 04:00 97.6 76 24 100/52 (68) 96 02/06/19 03:45 67 24 104/56 (72) 91 02/06/19 03:30 73 23 91/51 (64) 98 02/06/19 03:15 64 36 143/66 (91) 98 02/06/19 03:11 71 45 138/61 (86) 96 02/06/19 03:02 74 02/06/19 03:00 144/67 02/06/19 03:00 66 43 144/67 (92) 91 02/06/19 02:45 71 35 141/67 (91) 98 02/06/19 02:30 74 27 123/69 (87) 89 02/06/19 02:00 58 31 114/56 (75) 98 02/06/19 02:00 114/56 02/06/19 01:45 55 37 109/68 (82) 99 02/06/19 01:37 63 27 88/51 (63) 89 02/06/19 01:31 61 26 75/41 (52) 90 02/06/19 01:30 75/41 02/06/19 01:30 62 26 91 02/06/19 01:17 60 26 85/45 (58) 98 02/06/19 01:00 93/48 02/06/19 01:00 63 29 93/48 (63) 98 02/06/19 00:30 69 34 109/59 (76) 97 02/06/19 00:00 97.7 64 34 96/46 (63) 98 02/06/19 00:00 Venturi Mask 4.0 02/06/19 00:00 96/46 02/05/19 23:30 81 20 103/54 (70) 95 02/05/19 23:00 68 26 107/56 (73) 95 02/05/19 23:00 107/56 02/05/19 22:57 67 02/05/19 22:30 68 26 108/56 (73) 96 02/05/19 22:00 104/55 02/05/19 22:00 77 20 104/55 (71) 95 02/05/19 21:30 71 27 107/58 (74) 93 02/05/19 21:21 98 Venturi Mask 4.0 30 02/05/19 21:15 73 20 109/55 (73) 95 02/05/19 21:00 60 18 98/56 (70) 95 02/05/19 21:00 98/56 02/05/19 20:45 70 22 107/62 (77) 98 02/05/19 20:30 76 20 93/54 (67) 96 02/05/19 20:15 68 25 81/51 (61) 95 02/05/19 20:00 Venturi Mask 4.0 02/05/19 20:00 95/54 02/05/19 20:00 97.7 76 21 95/54 (68) 96 02/05/19 19:45 69 25 100/58 (72) 98 02/05/19 19:44 71 02/05/19 19:39 100/50 02/05/19 19:30 70 23 100/50 (67) 96 02/05/19 19:15 67 26 105/63 (77) 98 02/05/19 19:00 63 28 91/53 (66) 98 02/05/19 18:45 70 22 92/54 (67) 96 02/05/19 18:30 70 29 78/43 (55) 96 02/05/19 18:00 71 24 107/57 (74) 97 02/05/19 17:00 72 22 93/49 (64) 95 02/05/19 16:00 99.2 72 29 117/53 (74) 98 02/05/19 16:00 67 02/05/19 16:00 Nasal Cannula 3.0 02/05/19 15:00 101/55 02/05/19 15:00 79 28 101/55 (70) 97 02/05/19 14:54 74 26 73/39 (50) 80 02/05/19 14:45 75 24 70/42 (51) 74 02/05/19 14:30 94 24 85/49 (61) 85 02/05/19 14:15 73 31 106/54 (71) 97 02/05/19 14:00 66 35 104/56 (72) 100 02/05/19 13:00 73 41 118/58 (78) 92 02/05/19 12:45 69 35 133/59 (83) 99 02/05/19 12:30 98.8 76 28 120/56 (77) 97 02/05/19 12:00 Nasal Cannula 3.0 02/05/19 12:00 74 46 129/58 (81) 95 02/05/19 12:00 120/56 02/05/19 12:00 74 46 129/58 (81) 95 02/05/19 12:00 73 02/05/19 11:45 82 24 150/58 (88) 100 02/05/19 11:30 69 28 130/54 (79) 95 02/05/19 11:15 62 29 107/50 (69) 100 02/05/19 11:00 107/50 02/05/19 11:00 66 30 114/51 (72) 94 02/05/19 10:45 69 29 101/46 (64) 93 02/05/19 10:30 73 18 89/55 (66) 97 02/05/19 10:15 73 20 74/51 (59) 97 02/05/19 10:00 64 26 78/42 (54) 99 02/05/19 09:30 85 24 100/50 (67) 91 02/05/19 09:21 77 22 86/42 (57) 95 02/05/19 09:20 78 25 87/51 (63) 95 02/05/19 09:15 68 32 87/41 (56) 94 02/05/19 09:00 100/50 02/05/19 09:00 99.7 66 24 94/42 (59) 99 02/05/19 08:15 74 28 106/56 (73) 99 02/05/19 08:00 81 17 108/48 (68) 97 02/05/19 08:00 Venturi Mask 4.0 02/05/19 08:00 73 Intake and Output 02/05/19 02/06/19 18:59 06:59 Intake Total 1594.869 ml 1089.70 ml Output Total 575 ml 915 ml Balance 1019.869 ml 174.70 ml IV Total 1594.869 ml 1089.70 ml Output Urine Total 575 ml 915 ml Laboratory Tests 02/06/19 04:33: White Blood Count 10.4, Red Blood Count 3.89L, Hemoglobin 11.9L, Hematocrit 35.9L, Mean Corpuscular Volume 92, Mean Corpuscular Hemoglobin 30.6, Mean Corpuscular Hemoglobin Concent 33.1, Red Cell Distribution Width 14.3, Platelet Count 83#L, Mean Platelet Volume 6.0L, Neutrophils (%) (Auto) , Lymphocytes (%) (Auto) , Monocytes (%) (Auto) , Eosinophils (%) (Auto) , Basophils (%) (Auto) , Neutrophils % (Manual) [Pending], Lymphocytes % (Manual) [Pending], Platelet Estimate [Pending], Platelet Morphology [Pending], Sodium Level 138, Potassium Level 3.8, Chloride Level 103, Carbon Dioxide Level 29, Anion Gap 6, Blood Urea Nitrogen 13, Creatinine 1.2, Estimat Glomerular Filtration Rate > 60, Glucose Level 135H, Calcium Level 7.4L, Phosphorus Level 2.7, Magnesium Level 1.7L, Total Bilirubin 0.6, Aspartate Amino Transf (AST/SGOT) 33, Alanine Aminotransferase (ALT/SGPT) 47, Alkaline Phosphatase 102, Total Protein 5.8L, Albumin 1.9L, Globulin 3.9, Albumin/Globulin Ratio 0.5L Height (Feet): 5 Height (Inches): 7.00 Weight (Pounds): 137 General Appearance: lethargic EENT: normal ENT inspection Neck: supple Cardiovascular: normal rate Respiratory/Chest: decreased breath sounds Abdomen: normal bowel sounds, non tender, soft Extremities: non-tender Leonel Valderrama MD Feb 06, 2019 07:34
--- NOTE | 2019-02-06 08:03 | NUR ---
NURSE NOTES: Patient report received from EUGENIA Abebe patient is awake and talkative, responds to light touch by opening eyes and communicates with a low flat tone of voice, he is requesting to be left alone and not be surprised, denies any pain, currently he is breathing on a venti mask at 35% with saturations 99-100% no use of retractions noted, Costello remains draining clear yellow pale urine. PICC line on right upper arm running dopamine at 4ml/hr at 1.717 mcg/kg/min.
[2019-02-06] MEDS: Heparin 5000 units/ml inj SUBQ SCH ×2 (09:00→20:45)
[2019-02-06] MEDS: Memantine 5 MG TAB ORAL SCH (09:00)
[2019-02-06] MEDS: Ascorbic Acid 500mg tab ORAL SCH ×2 (09:00→18:00)
[2019-02-06] MEDS: Midodrine 10mg tab NG SCH ×3 (09:00→18:00)
[2019-02-06] MEDS: Theophylline ER 100mg ORAL SCH ×2 (09:00→20:40)
[2019-02-06] MEDS: Pantoprazole Inj IVP SCH (09:25)
--- NOTE | 2019-02-06 09:36 | General Progress Note ---
Assessment/Plan Problem List: (1) Renal failure (ARF), acute on chronic ICD Codes: N17.9 - Acute kidney failure, unspecified; N18.9 - Chronic kidney disease, unspecified SNOMED: 833181117 (2) Sepsis ICD Codes: A41.9 - Sepsis, unspecified organism SNOMED: 44910032 Qualifiers: Qualified Codes: A41.9 - Sepsis, unspecified organism (3) Malignant neoplasm of right kidney ICD Codes: C64.1 - Malignant neoplasm of right kidney, except renal pelvis SNOMED: 671194338 (4) Acute respiratory failure ICD Codes: J96.00 - Acute respiratory failure, unspecified whether with hypoxia or hypercapnia SNOMED: 32529205 (5) PVD (peripheral vascular disease) ICD Codes: I73.9 - Peripheral vascular disease, unspecified SNOMED: 539103120 Status: unchanged Assessment/Plan: vent abx wound care cbc bmp am ltach eval Subjective Constitutional: Reports: weakness Allergies: Coded Allergies: No Known Allergies (Unverified , 01/24/19) All Systems: reviewed and negative except above Subjective o2 mask in icu Objective Last 24 Hour Vital Signs Date Time Temp Pulse Resp B/P (MAP) Pulse Ox O2 Delivery O2 Flow Rate FiO2 02/06/19 06:45 68 22 90/49 (63) 92 02/06/19 06:30 66 23 101/50 (67) 96 02/06/19 06:15 58 25 102/52 (69) 98 02/06/19 06:01 98/48 02/06/19 06:00 64 22 96/48 (64) 98 02/06/19 05:45 69 18 92/51 (65) 100 02/06/19 05:30 56 23 114/52 (72) 99 02/06/19 05:00 114/54 02/06/19 05:00 63 23 114/54 (74) 98 02/06/19 04:45 53 23 117/54 (75) 100 02/06/19 04:30 69 20 85/48 (60) 96 02/06/19 04:15 75 26 83/52 (62) 97 02/06/19 04:00 Venturi Mask 4.0 02/06/19 04:00 100/52 02/06/19 04:00 97.6 76 24 100/52 (68) 96 02/06/19 03:45 67 24 104/56 (72) 91 02/06/19 03:30 73 23 91/51 (64) 98 02/06/19 03:15 64 36 143/66 (91) 98 02/06/19 03:11 71 45 138/61 (86) 96 02/06/19 03:02 74 02/06/19 03:00 144/67 02/06/19 03:00 66 43 144/67 (92) 91 02/06/19 02:45 71 35 141/67 (91) 98 02/06/19 02:30 74 27 123/69 (87) 89 02/06/19 02:00 58 31 114/56 (75) 98 02/06/19 02:00 114/56 02/06/19 01:45 55 37 109/68 (82) 99 02/06/19 01:37 63 27 88/51 (63) 89 02/06/19 01:31 61 26 75/41 (52) 90 02/06/19 01:30 75/41 02/06/19 01:30 62 26 91 02/06/19 01:17 60 26 85/45 (58) 98 02/06/19 01:00 93/48 02/06/19 01:00 63 29 93/48 (63) 98 02/06/19 00:30 69 34 109/59 (76) 97 02/06/19 00:00 97.7 64 34 96/46 (63) 98 02/06/19 00:00 Venturi Mask 4.0 02/06/19 00:00 96/46 02/05/19 23:30 81 20 103/54 (70) 95 02/05/19 23:00 68 26 107/56 (73) 95 02/05/19 23:00 107/56 02/05/19 22:57 67 02/05/19 22:30 68 26 108/56 (73) 96 02/05/19 22:00 104/55 02/05/19 22:00 77 20 104/55 (71) 95 02/05/19 21:30 71 27 107/58 (74) 93 02/05/19 21:21 98 Venturi Mask 4.0 30 02/05/19 21:15 73 20 109/55 (73) 95 02/05/19 21:00 60 18 98/56 (70) 95 02/05/19 21:00 98/56 02/05/19 20:45 70 22 107/62 (77) 98 02/05/19 20:30 76 20 93/54 (67) 96 02/05/19 20:15 68 25 81/51 (61) 95 02/05/19 20:00 Venturi Mask 4.0 02/05/19 20:00 95/54 02/05/19 20:00 97.7 76 21 95/54 (68) 96 02/05/19 19:45 69 25 100/58 (72) 98 02/05/19 19:44 71 02/05/19 19:39 100/50 02/05/19 19:30 70 23 100/50 (67) 96 02/05/19 19:15 67 26 105/63 (77) 98 02/05/19 19:00 63 28 91/53 (66) 98 02/05/19 18:45 70 22 92/54 (67) 96 02/05/19 18:30 70 29 78/43 (55) 96 02/05/19 18:00 71 24 107/57 (74) 97 02/05/19 17:00 72 22 93/49 (64) 95 02/05/19 16:00 99.2 72 29 117/53 (74) 98 02/05/19 16:00 67 02/05/19 16:00 Nasal Cannula 3.0 02/05/19 15:00 101/55 02/05/19 15:00 79 28 101/55 (70) 97 02/05/19 14:54 74 26 73/39 (50) 80 02/05/19 14:45 75 24 70/42 (51) 74 02/05/19 14:30 94 24 85/49 (61) 85 02/05/19 14:15 73 31 106/54 (71) 97 02/05/19 14:00 66 35 104/56 (72) 100 02/05/19 13:00 73 41 118/58 (78) 92 02/05/19 12:45 69 35 133/59 (83) 99 02/05/19 12:30 98.8 76 28 120/56 (77) 97 02/05/19 12:00 Nasal Cannula 3.0 02/05/19 12:00 74 46 129/58 (81) 95 02/05/19 12:00 120/56 02/05/19 12:00 74 46 129/58 (81) 95 02/05/19 12:00 73 02/05/19 11:45 82 24 150/58 (88) 100 02/05/19 11:30 69 28 130/54 (79) 95 02/05/19 11:15 62 29 107/50 (69) 100 02/05/19 11:00 107/50 02/05/19 11:00 66 30 114/51 (72) 94 02/05/19 10:45 69 29 101/46 (64) 93 02/05/19 10:30 73 18 89/55 (66) 97 02/05/19 10:15 73 20 74/51 (59) 97 02/05/19 10:00 64 26 78/42 (54) 99 Intake and Output 02/05/19 02/06/19 19:00 07:00 Intake Total 1588.869 ml 985.32 ml Output Total 530 ml 930 ml Balance 1058.869 ml 55.32 ml IV Total 1588.869 ml 985.32 ml Output Urine Total 530 ml 930 ml Laboratory Tests 02/06/19 04:33: White Blood Count 10.4, Red Blood Count 3.89L, Hemoglobin 11.9L, Hematocrit 35.9L, Mean Corpuscular Volume 92, Mean Corpuscular Hemoglobin 30.6, Mean Corpuscular Hemoglobin Concent 33.1, Red Cell Distribution Width 14.3, Platelet Count 83#L, Mean Platelet Volume 6.0L, Neutrophils (%) (Auto) , Lymphocytes (%) (Auto) , Monocytes (%) (Auto) , Eosinophils (%) (Auto) , Basophils (%) (Auto) , Differential Total Cells Counted 100, Neutrophils % (Manual) 87H, Lymphocytes % (Manual) 10L, Monocytes % (Manual) 1, Eosinophils % (Manual) 0, Basophils % ( Manual) 0, Band Neutrophils 2, Platelet Estimate DecreasedL, Platelet Morphology Normal, Red Blood Cell Morphology Normal, Sodium Level 138, Potassium Level 3.8, Chloride Level 103, Carbon Dioxide Level 29, Anion Gap 6, Blood Urea Nitrogen 13, Creatinine 1.2, Estimat Glomerular Filtration Rate > 60 , Glucose Level 135H, Calcium Level 7.4L, Phosphorus Level 2.7, Magnesium Level 1.7L, Total Bilirubin 0.6, Aspartate Amino Transf (AST/SGOT) 33, Alanine Aminotransferase (ALT/SGPT) 47, Alkaline Phosphatase 102, Total Protein 5.8L, Albumin 1.9L, Globulin 3.9, Albumin/Globulin Ratio 0.5L Height (Feet): 5 Height (Inches): 7.00 Weight (Pounds): 137 General Appearance: lethargic EENT: normal ENT inspection Neck: normal alignment Cardiovascular: normal peripheral pulses, normal rate, regular rhythm Respiratory/Chest: chest wall non-tender, lungs clear, normal breath sounds Abdomen: normal bowel sounds, non tender, soft Extremities: normal inspection Edema: no edema noted Arm (L), no edema noted Arm (R), no edema noted Leg (L), no edema noted Leg (R), no edema noted Pedal (L), no edema noted Pedal (R), no edema noted Generalized Neurologic: motor weakness Skin: normal pigmentation, warm/dry Corey Short DO Feb 06, 2019 09:36
[2019-02-06] MEDS ORDERED: NS 500ML ONE (10:04)
[2019-02-06] MEDS ORDERED: NS 275ml ONE ×2 (10:04→16:05)
[2019-02-06] MEDS ORDERED: D5W 275ml ONE (10:04)
--- NOTE | 2019-02-06 11:15 | NUR ---
NURSE NOTES: wound care provided with pictures taken, no pain indicated by patient while providing wound care, see wound care assessment,
--- NOTE | 2019-02-06 13:25 | NUR ---
NURSE NOTES: Dr. Tenorio assessing patient at the bedside, no verbal orders given at this time.
--- NOTE | 2019-02-06 13:29 | Cardiology Progress Note ---
Assessment/Plan Problem List: (1) COPD (chronic obstructive pulmonary disease) (2) Sepsis (3) Chronic kidney disease (4) Acute respiratory failure (5) Septic shock Status: stable, progressing Status Narrative Mr Riojas has been extubated. Respiratory status is improving. He failed video swallow study, and PEG is being considered. He has cardiomyopathy, ? ischemic vs dilated, w/ EF 30-35% by echo this adm, but does not appear in CHF. Wt down 7 kg since adm but overall i/os + ? accurate Assessment/Plan Attempt to wean off dopamine, keeping MAP > 60 Unable to start GUILLERMO/ ARB or coreg due to low HR, BP. Cardiac status stable for PEG if indicated. Subjective ROS Limited/Unobtainable: No Subjective Extubated, on FM o2. Alert, responsive. Asking for food. Objective Last 24 Hour Vital Signs Date Time Temp Pulse Resp B/P (MAP) Pulse Ox O2 Delivery O2 Flow Rate FiO2 02/06/19 13:00 58 16 125/63 (83) 100 02/06/19 12:30 57 19 118/67 (84) 99 02/06/19 12:00 97.5 67 21 112/53 (72) 98 02/06/19 12:00 Venturi Mask 4.0 02/06/19 12:00 67 02/06/19 11:30 64 22 126/51 (76) 98 02/06/19 11:00 74 17 126/79 (95) 98 02/06/19 10:30 66 19 130/56 (80) 99 02/06/19 10:00 65 22 75/40 (52) 98 02/06/19 09:30 59 20 152/76 (101) 100 02/06/19 09:00 63 22 105/53 (70) 100 02/06/19 08:30 65 25 115/55 (75) 92 02/06/19 08:00 Venturi Mask 4.0 02/06/19 08:00 97.7 57 24 104/52 (69) 98 02/06/19 08:00 63 02/06/19 07:30 54 22 107/51 (69) 100 02/06/19 06:45 68 22 90/49 (63) 92 02/06/19 06:30 66 23 101/50 (67) 96 02/06/19 06:15 58 25 102/52 (69) 98 02/06/19 06:01 98/48 02/06/19 06:00 64 22 96/48 (64) 98 02/06/19 05:45 69 18 92/51 (65) 100 02/06/19 05:30 56 23 114/52 (72) 99 02/06/19 05:00 114/54 02/06/19 05:00 63 23 114/54 (74) 98 02/06/19 04:45 53 23 117/54 (75) 100 02/06/19 04:30 69 20 85/48 (60) 96 02/06/19 04:15 75 26 83/52 (62) 97 02/06/19 04:00 Venturi Mask 4.0 02/06/19 04:00 100/52 02/06/19 04:00 97.6 76 24 100/52 (68) 96 02/06/19 03:45 67 24 104/56 (72) 91 02/06/19 03:30 73 23 91/51 (64) 98 02/06/19 03:15 64 36 143/66 (91) 98 02/06/19 03:11 71 45 138/61 (86) 96 02/06/19 03:02 74 02/06/19 03:00 144/67 02/06/19 03:00 66 43 144/67 (92) 91 02/06/19 02:45 71 35 141/67 (91) 98 02/06/19 02:30 74 27 123/69 (87) 89 02/06/19 02:00 58 31 114/56 (75) 98 02/06/19 02:00 114/56 02/06/19 01:45 55 37 109/68 (82) 99 02/06/19 01:37 63 27 88/51 (63) 89 02/06/19 01:31 61 26 75/41 (52) 90 02/06/19 01:30 75/41 02/06/19 01:30 62 26 91 02/06/19 01:17 60 26 85/45 (58) 98 02/06/19 01:00 93/48 02/06/19 01:00 63 29 93/48 (63) 98 02/06/19 00:30 69 34 109/59 (76) 97 02/06/19 00:00 97.7 64 34 96/46 (63) 98 02/06/19 00:00 Venturi Mask 4.0 02/06/19 00:00 96/46 02/05/19 23:30 81 20 103/54 (70) 95 02/05/19 23:00 68 26 107/56 (73) 95 02/05/19 23:00 107/56 02/05/19 22:57 67 02/05/19 22:30 68 26 108/56 (73) 96 02/05/19 22:00 104/55 02/05/19 22:00 77 20 104/55 (71) 95 02/05/19 21:30 71 27 107/58 (74) 93 02/05/19 21:21 98 Venturi Mask 4.0 30 02/05/19 21:15 73 20 109/55 (73) 95 02/05/19 21:00 60 18 98/56 (70) 95 02/05/19 21:00 98/56 02/05/19 20:45 70 22 107/62 (77) 98 02/05/19 20:30 76 20 93/54 (67) 96 02/05/19 20:15 68 25 81/51 (61) 95 02/05/19 20:00 Venturi Mask 4.0 02/05/19 20:00 95/54 02/05/19 20:00 97.7 76 21 95/54 (68) 96 02/05/19 19:45 69 25 100/58 (72) 98 02/05/19 19:44 71 02/05/19 19:39 100/50 02/05/19 19:30 70 23 100/50 (67) 96 02/05/19 19:15 67 26 105/63 (77) 98 02/05/19 19:00 63 28 91/53 (66) 98 02/05/19 18:45 70 22 92/54 (67) 96 02/05/19 18:30 70 29 78/43 (55) 96 02/05/19 18:00 71 24 107/57 (74) 97 02/05/19 17:00 72 22 93/49 (64) 95 02/05/19 16:00 99.2 72 29 117/53 (74) 98 02/05/19 16:00 67 02/05/19 16:00 Nasal Cannula 3.0 11/22/19 15:00 101/55 02/05/19 15:00 79 28 101/55 (70) 97 02/05/19 14:54 74 26 73/39 (50) 80 02/05/19 14:45 75 24 70/42 (51) 74 02/05/19 14:30 94 24 85/49 (61) 85 02/05/19 14:15 73 31 106/54 (71) 97 02/05/19 14:00 66 35 104/56 (72) 100 General Appearance: WD/WN, no apparent distress EENT: PERRL/EOMI, other Neck: supple, no JVD Rhythm: NSR Cardiovascular: regular rhythm, no gallop/murmur, bradycardia Respiratory/Chest: other - bilat scattered rhonchi Abdomen: non tender, soft, no organomegaly Extremities: no swelling Neurologic: alert, other - oriented to person, hospital , does not know day, date, month Intake and Output 02/05/19 02/06/19 19:00 07:00 Intake Total 1588.869 ml 985.32 ml Output Total 530 ml 930 ml Balance 1058.869 ml 55.32 ml IV Total 1588.869 ml 985.32 ml Output Urine Total 530 ml 930 ml Laboratory Tests Test 02/06/19 04:33 White Blood Count 10.4 K/UL (4.8-10.8) Red Blood Count 3.89 M/UL (4.70-6.10) L Hemoglobin 11.9 G/DL (14.2-18.0) L Hematocrit 35.9 % (42.0-52.0) L Mean Corpuscular Volume 92 FL (80-99) Mean Corpuscular Hemoglobin 30.6 PG (27.0-31.0) Mean Corpuscular Hemoglobin Concent 33.1 G/DL (32.0-36.0) Red Cell Distribution Width 14.3 % (11.6-14.8) Platelet Count 83 K/UL (150-450) #L Mean Platelet Volume 6.0 FL (6.5-10.1) L Neutrophils (%) (Auto) % (45.0-75.0) Lymphocytes (%) (Auto) % (20.0-45.0) Monocytes (%) (Auto) % (1.0-10.0) Eosinophils (%) (Auto) % (0.0-3.0) Basophils (%) (Auto) % (0.0-2.0) Differential Total Cells Counted 100 Neutrophils % (Manual) 87 % (45-75) H Lymphocytes % (Manual) 10 % (20-45) L Monocytes % (Manual) 1 % (1-10) Eosinophils % (Manual) 0 % (0-3) Basophils % (Manual) 0 % (0-2) Band Neutrophils 2 % (0-8) Platelet Estimate Decreased L Platelet Morphology Normal Red Blood Cell Morphology Normal Sodium Level 138 MMOL/L (136-145) Potassium Level 3.8 MMOL/L (3.5-5.1) Chloride Level 103 MMOL/L (98-107) Carbon Dioxide Level 29 MMOL/L (21-32) Anion Gap 6 mmol/L (5-15) Blood Urea Nitrogen 13 mg/dL (7-18) Creatinine 1.2 MG/DL (0.55-1.30) Estimat Glomerular Filtration Rate > 60 mL/min (>60) Glucose Level 135 MG/DL (74-106) H Calcium Level 7.4 MG/DL (8.5-10.1) L Phosphorus Level 2.7 MG/DL (2.5-4.9) Magnesium Level 1.7 MG/DL (1.8-2.4) L Total Bilirubin 0.6 MG/DL (0.2-1.0) Aspartate Amino Transf (AST/SGOT) 33 U/L (15-37) Alanine Aminotransferase (ALT/SGPT) 47 U/L (12-78) Alkaline Phosphatase 102 U/L (46-116) Total Protein 5.8 G/DL (6.4-8.2) L Albumin 1.9 G/DL (3.4-5.0) L Globulin 3.9 g/dL Albumin/Globulin Ratio 0.5 (1.0-2.7) Rolanda Palomo MD Feb 06, 2019 13:29
--- NOTE | 2019-02-06 13:56 | NUR ---
NURSE NOTES: Dr. Daniel assessing patient for wound on the left heel, will place orders for wound care.
--- NOTE | 2019-02-06 13:59 | Plastic Surgery Progress Note ---
Plastic Surgery-Progress Note Subjective Additional Comments Follow up evaluation on patient with left heel pressure injury. Since last eval he has been extubated. He is awake, alert, and communicative. No complaints of pain in the left foot. Objective Last 24 Hour Vital Signs Date Time Temp Pulse Resp B/P (MAP) Pulse Ox O2 Delivery O2 Flow Rate FiO2 02/06/19 13:00 58 16 125/63 (83) 100 02/06/19 12:30 57 19 118/67 (84) 99 02/06/19 12:00 97.5 67 21 112/53 (72) 98 02/06/19 12:00 Venturi Mask 4.0 02/06/19 12:00 67 02/06/19 11:30 64 22 126/51 (76) 98 02/06/19 11:00 74 17 126/79 (95) 98 02/06/19 10:30 66 19 130/56 (80) 99 02/06/19 10:00 65 22 75/40 (52) 98 02/06/19 09:30 59 20 152/76 (101) 100 02/06/19 09:00 63 22 105/53 (70) 100 02/06/19 08:30 65 25 115/55 (75) 92 02/06/19 08:00 Venturi Mask 4.0 02/06/19 08:00 97.7 57 24 104/52 (69) 98 02/06/19 08:00 63 02/06/19 07:30 54 22 107/51 (69) 100 02/06/19 06:45 68 22 90/49 (63) 92 02/06/19 06:30 66 23 101/50 (67) 96 02/06/19 06:15 58 25 102/52 (69) 98 02/06/19 06:01 98/48 02/06/19 06:00 64 22 96/48 (64) 98 02/06/19 05:45 69 18 92/51 (65) 100 02/06/19 05:30 56 23 114/52 (72) 99 02/06/19 05:00 114/54 02/06/19 05:00 63 23 114/54 (74) 98 02/06/19 04:45 53 23 117/54 (75) 100 02/06/19 04:30 69 20 85/48 (60) 96 02/06/19 04:15 75 26 83/52 (62) 97 02/06/19 04:00 Venturi Mask 4.0 02/06/19 04:00 100/52 02/06/19 04:00 97.6 76 24 100/52 (68) 96 02/06/19 03:45 67 24 104/56 (72) 91 02/06/19 03:30 73 23 91/51 (64) 98 02/06/19 03:15 64 36 143/66 (91) 98 02/06/19 03:11 71 45 138/61 (86) 96 02/06/19 03:02 74 02/06/19 03:00 144/67 02/06/19 03:00 66 43 144/67 (92) 91 02/06/19 02:45 71 35 141/67 (91) 98 02/06/19 02:30 74 27 123/69 (87) 89 02/06/19 02:00 58 31 114/56 (75) 98 02/06/19 02:00 114/56 02/06/19 01:45 55 37 109/68 (82) 99 02/06/19 01:37 63 27 88/51 (63) 89 02/06/19 01:31 61 26 75/41 (52) 90 02/06/19 01:30 75/41 02/06/19 01:30 62 26 91 02/06/19 01:17 60 26 85/45 (58) 98 02/06/19 01:00 93/48 02/06/19 01:00 63 29 93/48 (63) 98 02/06/19 00:30 69 34 109/59 (76) 97 02/06/19 00:00 97.7 64 34 96/46 (63) 98 02/06/19 00:00 Venturi Mask 4.0 02/06/19 00:00 96/46 02/05/19 23:30 81 20 103/54 (70) 95 02/05/19 23:00 68 26 107/56 (73) 95 02/05/19 23:00 107/56 02/05/19 22:57 67 02/05/19 22:30 68 26 108/56 (73) 96 02/05/19 22:00 104/55 11/22/19 22:00 77 20 104/55 (71) 95 02/05/19 21:30 71 27 107/58 (74) 93 02/05/19 21:21 98 Venturi Mask 4.0 30 02/05/19 21:15 73 20 109/55 (73) 95 02/05/19 21:00 60 18 98/56 (70) 95 02/05/19 21:00 98/56 02/05/19 20:45 70 22 107/62 (77) 98 02/05/19 20:30 76 20 93/54 (67) 96 02/05/19 20:15 68 25 81/51 (61) 95 02/05/19 20:00 Venturi Mask 4.0 02/05/19 20:00 95/54 02/05/19 20:00 97.7 76 21 95/54 (68) 96 02/05/19 19:45 69 25 100/58 (72) 98 02/05/19 19:44 71 02/05/19 19:39 100/50 02/05/19 19:30 70 23 100/50 (67) 96 02/05/19 19:15 67 26 105/63 (77) 98 02/05/19 19:00 63 28 91/53 (66) 98 02/05/19 18:45 70 22 92/54 (67) 96 02/05/19 18:30 70 29 78/43 (55) 96 02/05/19 18:00 71 24 107/57 (74) 97 02/05/19 17:00 72 22 93/49 (64) 95 02/05/19 16:00 99.2 72 29 117/53 (74) 98 02/05/19 16:00 67 02/05/19 16:00 Nasal Cannula 3.0 02/05/19 15:00 101/55 02/05/19 15:00 79 28 101/55 (70) 97 02/05/19 14:54 74 26 73/39 (50) 80 02/05/19 14:45 75 24 70/42 (51) 74 02/05/19 14:30 94 24 85/49 (61) 85 02/05/19 14:15 73 31 106/54 (71) 97 02/05/19 14:00 66 35 104/56 (72) 100 I&O Intake and Output 02/05/19 02/06/19 19:00 07:00 Intake Total 1588.869 ml 985.32 ml Output Total 530 ml 930 ml Balance 1058.869 ml 55.32 ml IV Total 1588.869 ml 985.32 ml Output Urine Total 530 ml 930 ml Dressing: dry Wound: other - Left heel ulcer is unstageable. Eschar starting to softne but still adherent. Periskin with no erythema or warmth. No swelling. Drains: none Laboratory Tests Test 02/06/19 04:33 White Blood Count 10.4 K/UL (4.8-10.8) Red Blood Count 3.89 M/UL (4.70-6.10) L Hemoglobin 11.9 G/DL (14.2-18.0) L Hematocrit 35.9 % (42.0-52.0) L Mean Corpuscular Volume 92 FL (80-99) Mean Corpuscular Hemoglobin 30.6 PG (27.0-31.0) Mean Corpuscular Hemoglobin Concent 33.1 G/DL (32.0-36.0) Red Cell Distribution Width 14.3 % (11.6-14.8) Platelet Count 83 K/UL (150-450) #L Mean Platelet Volume 6.0 FL (6.5-10.1) L Neutrophils (%) (Auto) % (45.0-75.0) Lymphocytes (%) (Auto) % (20.0-45.0) Monocytes (%) (Auto) % (1.0-10.0) Eosinophils (%) (Auto) % (0.0-3.0) Basophils (%) (Auto) % (0.0-2.0) Differential Total Cells Counted 100 Neutrophils % (Manual) 87 % (45-75) H Lymphocytes % (Manual) 10 % (20-45) L Monocytes % (Manual) 1 % (1-10) Eosinophils % (Manual) 0 % (0-3) Basophils % (Manual) 0 % (0-2) Band Neutrophils 2 % (0-8) Platelet Estimate Decreased L Platelet Morphology Normal Red Blood Cell Morphology Normal Sodium Level 138 MMOL/L (136-145) Potassium Level 3.8 MMOL/L (3.5-5.1) Chloride Level 103 MMOL/L (98-107) Carbon Dioxide Level 29 MMOL/L (21-32) Anion Gap 6 mmol/L (5-15) Blood Urea Nitrogen 13 mg/dL (7-18) Creatinine 1.2 MG/DL (0.55-1.30) Estimat Glomerular Filtration Rate > 60 mL/min (>60) Glucose Level 135 MG/DL (74-106) H Calcium Level 7.4 MG/DL (8.5-10.1) L Phosphorus Level 2.7 MG/DL (2.5-4.9) Magnesium Level 1.7 MG/DL (1.8-2.4) L Total Bilirubin 0.6 MG/DL (0.2-1.0) Aspartate Amino Transf (AST/SGOT) 33 U/L (15-37) Alanine Aminotransferase (ALT/SGPT) 47 U/L (12-78) Alkaline Phosphatase 102 U/L (46-116) Total Protein 5.8 G/DL (6.4-8.2) L Albumin 1.9 G/DL (3.4-5.0) L Globulin 3.9 g/dL Albumin/Globulin Ratio 0.5 (1.0-2.7) L Plan Additional Comments Patient with unstageable left heel pressure injury. Will start therihoney to accelerate loosening of the eschar. For now the eschar is acting as a biologic dressing. Continue to offload the heels by floating them. Medical management per rest of the team. Surjit Daniel MD Feb 06, 2019 13:59
--- NOTE | 2019-02-06 13:59 | NUR ---
NURSE NOTES: Dr. Gonzalez made aware of patient renal status and continued use of dopamine, no verbal orders given at this time.
--- NOTE | 2019-02-06 14:02 | Pulmonolgy Critical Care Note ---
Critical Care - Asmt/Plan Problems: (1) Acute respiratory failure (2) Septic shock (3) Systolic heart failure (4) Chronic kidney disease (5) Malignant neoplasm of right kidney (6) COPD (chronic obstructive pulmonary disease) (7) Schizophrenia Respiratory: monitor respiratory rate, adjust FIO2, CXR Cardiac: continue pressors - still on heparin drip, stop pressors, continue to monitor HR/BP Infectious Disease: continue antibiotics Gastrointestinal: continue feedings/current rate Endocrine: monitor blood sugar Hematologic: transfuse if hgb<8.5 Neurologic: keep patient comfortable Affect: PRN ativan Prophylaxis: Protonix Disposition: keep in ICU Time Spent (Minutes): 40 Notes 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: 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, renal, ID, GI Discussed with: nurses, consultants, director of 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 - Objective Last 24 Hour Vital Signs Date Time Temp Pulse Resp B/P (MAP) Pulse Ox O2 Delivery O2 Flow Rate FiO2 02/06/19 13:00 58 16 125/63 (83) 100 02/06/19 12:30 57 19 118/67 (84) 99 02/06/19 12:00 97.5 67 21 112/53 (72) 98 02/06/19 12:00 Venturi Mask 4.0 02/06/19 12:00 67 02/06/19 11:30 64 22 126/51 (76) 98 02/06/19 11:00 74 17 126/79 (95) 98 02/06/19 10:30 66 19 130/56 (80) 99 02/06/19 10:00 65 22 75/40 (52) 98 02/06/19 09:30 59 20 152/76 (101) 100 02/06/19 09:00 63 22 105/53 (70) 100 02/06/19 08:30 65 25 115/55 (75) 92 02/06/19 08:00 Venturi Mask 4.0 02/06/19 08:00 97.7 57 24 104/52 (69) 98 02/06/19 08:00 63 02/06/19 07:30 54 22 107/51 (69) 100 02/06/19 06:45 68 22 90/49 (63) 92 02/06/19 06:30 66 23 101/50 (67) 96 02/06/19 06:15 58 25 102/52 (69) 98 02/06/19 06:01 98/48 02/06/19 06:00 64 22 96/48 (64) 98 02/06/19 05:45 69 18 92/51 (65) 100 02/06/19 05:30 56 23 114/52 (72) 99 02/06/19 05:00 114/54 02/06/19 05:00 63 23 114/54 (74) 98 02/06/19 04:45 53 23 117/54 (75) 100 02/06/19 04:30 69 20 85/48 (60) 96 02/06/19 04:15 75 26 83/52 (62) 97 02/06/19 04:00 Venturi Mask 4.0 02/06/19 04:00 100/52 02/06/19 04:00 97.6 76 24 100/52 (68) 96 02/06/19 03:45 67 24 104/56 (72) 91 02/06/19 03:30 73 23 91/51 (64) 98 02/06/19 03:15 64 36 143/66 (91) 98 02/06/19 03:11 71 45 138/61 (86) 96 02/06/19 03:02 74 02/06/19 03:00 144/67 02/06/19 03:00 66 43 144/67 (92) 91 02/06/19 02:45 71 35 141/67 (91) 98 02/06/19 02:30 74 27 123/69 (87) 89 02/06/19 02:00 58 31 114/56 (75) 98 02/06/19 02:00 114/56 02/06/19 01:45 55 37 109/68 (82) 99 02/06/19 01:37 63 27 88/51 (63) 89 02/06/19 01:31 61 26 75/41 (52) 90 02/06/19 01:30 75/41 02/06/19 01:30 62 26 91 02/06/19 01:17 60 26 85/45 (58) 98 02/06/19 01:00 93/48 02/06/19 01:00 63 29 93/48 (63) 98 02/06/19 00:30 69 34 109/59 (76) 97 02/06/19 00:00 97.7 64 34 96/46 (63) 98 02/06/19 00:00 Venturi Mask 4.0 02/06/19 00:00 96/46 02/05/19 23:30 81 20 103/54 (70) 95 02/05/19 23:00 68 26 107/56 (73) 95 02/05/19 23:00 107/56 02/05/19 22:57 67 02/05/19 22:30 68 26 108/56 (73) 96 02/05/19 22:00 104/55 02/05/19 22:00 77 20 104/55 (71) 95 02/05/19 21:30 71 27 107/58 (74) 93 02/05/19 21:21 98 Venturi Mask 4.0 30 02/05/19 21:15 73 20 109/55 (73) 95 02/05/19 21:00 60 18 98/56 (70) 95 02/05/19 21:00 98/56 02/05/19 20:45 70 22 107/62 (77) 98 02/05/19 20:30 76 20 93/54 (67) 96 02/05/19 20:15 68 25 81/51 (61) 95 02/05/19 20:00 Venturi Mask 4.0 02/05/19 20:00 95/54 02/05/19 20:00 97.7 76 21 95/54 (68) 96 02/05/19 19:45 69 25 100/58 (72) 98 02/05/19 19:44 71 02/05/19 19:39 100/50 02/05/19 19:30 70 23 100/50 (67) 96 02/05/19 19:15 67 26 105/63 (77) 98 02/05/19 19:00 63 28 91/53 (66) 98 02/05/19 18:45 70 22 92/54 (67) 96 02/05/19 18:30 70 29 78/43 (55) 96 02/05/19 18:00 71 24 107/57 (74) 97 02/05/19 17:00 72 22 93/49 (64) 95 02/05/19 16:00 99.2 72 29 117/53 (74) 98 02/05/19 16:00 67 02/05/19 16:00 Nasal Cannula 3.0 02/05/19 15:00 101/55 02/05/19 15:00 79 28 101/55 (70) 97 02/05/19 14:54 74 26 73/39 (50) 80 02/05/19 14:45 75 24 70/42 (51) 74 02/05/19 14:30 94 24 85/49 (61) 85 02/05/19 14:15 73 31 106/54 (71) 97 02/05/19 14:00 66 35 104/56 (72) 100 Status: awake Condition: critical HEENT: atraumatic Lungs: clear Heart: HR/BP stable Abdomen: soft, non-tender Extremities: no C/C/E Accucheck: 173 Critical Care - Subjective FI02: 30 Vent Support Breath Rate: 20 Vent Support Mode: CPAP Vent Tidal Volume: 500 Sputum Amount: Small PEEP: 5.0 PIP: 13 I&O: Intake and Output 02/05/19 02/06/19 19:00 07:00 Intake Total 1588.869 ml 985.32 ml Output Total 530 ml 930 ml Balance 1058.869 ml 55.32 ml IV Total 1588.869 ml 985.32 ml Output Urine Total 530 ml 930 ml ET-Tube: 7.5 ET Position: 26 Labs: no change Ron Anthony MD Feb 06, 2019 14:02
--- NOTE | 2019-02-06 14:20 | NUR ---
NURSE NOTES: Therahoney applied to left heel and covered covered. would remains with scant serous drainage with center black and edges remains yellowish-white.
--- NOTE | 2019-02-06 15:01 | Nephrology Progress Note ---
Assessment/Plan Problem List: (1) Renal failure (ARF), acute on chronic (2) Acute respiratory failure (3) Septic shock (4) Bradyarrhythmia Assessment Renal failure- Likely acute on Chronic- Cr lower Acute respiratory failure- intubated on Vent Septic Shock- On pressors COPD PVD Schizophrenia Plan NGT out Now ( 02/02) extubated- tolerating well pulmonary support aim to taper dopamin stop IV fluid renal dose dopamin for low HR K supplement down on hydration One dose IV Lasix mag and Phos and K supplement as needed 2D Echo Low Ej Fx - Global Hypokinesis Avoid nephrotoxics afterload reduction monitor renal parameters urine studies ADRIAN IMPRESSION: Nonobstructive stones in the left kidney demonstrated. Bilateral renal cysts. Subjective ROS Limited/Unobtainable: No Constitutional: Reports: malaise, weakness Objective Objective Last 24 Hour Vital Signs Date Time Temp Pulse Resp B/P (MAP) Pulse Ox O2 Delivery O2 Flow Rate FiO2 02/06/19 14:30 54 15 117/58 (77) 100 02/06/19 14:00 55 22 116/52 (73) 98 02/06/19 13:00 58 16 125/63 (83) 100 02/06/19 12:30 57 19 118/67 (84) 99 02/06/19 12:00 97.5 67 21 112/53 (72) 98 02/06/19 12:00 Venturi Mask 4.0 02/06/19 12:00 67 02/06/19 11:30 64 22 126/51 (76) 98 02/06/19 11:00 74 17 126/79 (95) 98 02/06/19 10:30 66 19 130/56 (80) 99 02/06/19 10:00 65 22 75/40 (52) 98 02/06/19 09:30 59 20 152/76 (101) 100 02/06/19 09:00 63 22 105/53 (70) 100 02/06/19 08:30 65 25 115/55 (75) 92 02/06/19 08:00 Venturi Mask 4.0 02/06/19 08:00 97.7 57 24 104/52 (69) 98 02/06/19 08:00 63 02/06/19 07:30 54 22 107/51 (69) 100 02/06/19 06:45 68 22 90/49 (63) 92 02/06/19 06:30 66 23 101/50 (67) 96 02/06/19 06:15 58 25 102/52 (69) 98 02/06/19 06:01 98/48 02/06/19 06:00 64 22 96/48 (64) 98 02/06/19 05:45 69 18 92/51 (65) 100 02/06/19 05:30 56 23 114/52 (72) 99 02/06/19 05:00 114/54 02/06/19 05:00 63 23 114/54 (74) 98 02/06/19 04:45 53 23 117/54 (75) 100 02/06/19 04:30 69 20 85/48 (60) 96 02/06/19 04:15 75 26 83/52 (62) 97 02/06/19 04:00 Venturi Mask 4.0 02/06/19 04:00 100/52 02/06/19 04:00 97.6 76 24 100/52 (68) 96 02/06/19 03:45 67 24 104/56 (72) 91 02/06/19 03:30 73 23 91/51 (64) 98 02/06/19 03:15 64 36 143/66 (91) 98 02/06/19 03:11 71 45 138/61 (86) 96 02/06/19 03:02 74 02/06/19 03:00 144/67 02/06/19 03:00 66 43 144/67 (92) 91 02/06/19 02:45 71 35 141/67 (91) 98 02/06/19 02:30 74 27 123/69 (87) 89 02/06/19 02:00 58 31 114/56 (75) 98 02/06/19 02:00 114/56 02/06/19 01:45 55 37 109/68 (82) 99 02/06/19 01:37 63 27 88/51 (63) 89 02/06/19 01:31 61 26 75/41 (52) 90 02/06/19 01:30 75/41 02/06/19 01:30 62 26 91 02/06/19 01:17 60 26 85/45 (58) 98 02/06/19 01:00 93/48 02/06/19 01:00 63 29 93/48 (63) 98 02/06/19 00:30 69 34 109/59 (76) 97 02/06/19 00:00 97.7 64 34 96/46 (63) 98 02/06/19 00:00 Venturi Mask 4.0 02/06/19 00:00 96/46 02/05/19 23:30 81 20 103/54 (70) 95 02/05/19 23:00 68 26 107/56 (73) 95 02/05/19 23:00 107/56 02/05/19 22:57 67 02/05/19 22:30 68 26 108/56 (73) 96 02/05/19 22:00 104/55 02/05/19 22:00 77 20 104/55 (71) 95 02/05/19 21:30 71 27 107/58 (74) 93 02/05/19 21:21 98 Venturi Mask 4.0 30 02/05/19 21:15 73 20 109/55 (73) 95 02/05/19 21:00 60 18 98/56 (70) 95 02/05/19 21:00 98/56 02/05/19 20:45 70 22 107/62 (77) 98 02/05/19 20:30 76 20 93/54 (67) 96 02/05/19 20:15 68 25 81/51 (61) 95 02/05/19 20:00 Venturi Mask 4.0 02/05/19 20:00 95/54 02/05/19 20:00 97.7 76 21 95/54 (68) 96 02/05/19 19:45 69 25 100/58 (72) 98 02/05/19 19:44 71 02/05/19 19:39 100/50 02/05/19 19:30 70 23 100/50 (67) 96 02/05/19 19:15 67 26 105/63 (77) 98 02/05/19 19:00 63 28 91/53 (66) 98 02/05/19 18:45 70 22 92/54 (67) 96 02/05/19 18:30 70 29 78/43 (55) 96 02/05/19 18:00 71 24 107/57 (74) 97 02/05/19 17:00 72 22 93/49 (64) 95 11/22/19 16:00 99.2 72 29 117/53 (74) 98 02/05/19 16:00 67 02/05/19 16:00 Nasal Cannula 3.0 Intake and Output 02/05/19 02/06/19 19:00 07:00 Intake Total 1588.869 ml 985.32 ml Output Total 530 ml 930 ml Balance 1058.869 ml 55.32 ml IV Total 1588.869 ml 985.32 ml Output Urine Total 530 ml 930 ml Laboratory Tests 02/06/19 04:33: White Blood Count 10.4, Red Blood Count 3.89L, Hemoglobin 11.9L, Hematocrit 35.9L, Mean Corpuscular Volume 92, Mean Corpuscular Hemoglobin 30.6, Mean Corpuscular Hemoglobin Concent 33.1, Red Cell Distribution Width 14.3, Platelet Count 83#L, Mean Platelet Volume 6.0L, Neutrophils (%) (Auto) , Lymphocytes (%) (Auto) , Monocytes (%) (Auto) , Eosinophils (%) (Auto) , Basophils (%) (Auto) , Differential Total Cells Counted 100, Neutrophils % (Manual) 87H, Lymphocytes % (Manual) 10L, Monocytes % (Manual) 1, Eosinophils % (Manual) 0, Basophils % ( Manual) 0, Band Neutrophils 2, Platelet Estimate DecreasedL, Platelet Morphology Normal, Red Blood Cell Morphology Normal, Sodium Level 138, Potassium Level 3.8, Chloride Level 103, Carbon Dioxide Level 29, Anion Gap 6, Blood Urea Nitrogen 13, Creatinine 1.2, Estimat Glomerular Filtration Rate > 60 , Glucose Level 135H, Calcium Level 7.4L, Phosphorus Level 2.7, Magnesium Level 1.7L, Total Bilirubin 0.6, Aspartate Amino Transf (AST/SGOT) 33, Alanine Aminotransferase (ALT/SGPT) 47, Alkaline Phosphatase 102, Total Protein 5.8L, Albumin 1.9L, Globulin 3.9, Albumin/Globulin Ratio 0.5L Height (Feet): 5 Height (Inches): 7.00 Weight (Pounds): 137 General Appearance: no apparent distress Cardiovascular: normal rate Respiratory/Chest: decreased breath sounds Abdomen: distended Bienvenido Gonzalez MD Feb 06, 2019 15:01
--- NOTE | 2019-02-06 15:20 | NUR ---
NURSE NOTES: Dr. Aguiar made aware of consultation from Dr. Short for to assess patient for PeG placement, will assess patient neuro status for possible peg placement.
--- NOTE | 2019-02-06 16:15 | Progress Note ---
DATE: 02/06/2019 SUBJECTIVE: This is a 68-year-old male patient with sepsis and dehydration, currently in intensive care unit. He has altered mental status and confusion. He has got decline in cognition below his baseline. That is why, his attending has requested daily psychiatric consultation. MENTAL STATUS EXAMINATION: This is a 68-year-old male. Appearance is disheveled. Attitude, irritable and agitated. Affect, guarded and restricted. Intellect, poor. Mood, depressed and anxious. Motor activity, psychomotor agitation. Attention span is poor. Orientation x2. Speech is low volume, slurred. Thought process, disorganized and illogical. Insight and judgment is poor. DIAGNOSIS: Paranoid schizophrenia with acute exacerbation. PLAN: I am going to continue treatment with medications to stabilize his mood. Provide him with 20 minutes of reality-based supportive psychotherapy. 20 minutes of behavioral management provided. Chart reviewed. Discussed with staff. Seen and assessed in his room. Stacie Paige M.D. DR: JARRED JOB#: [id number] CC:
--- NOTE | 2019-02-06 19:25 | Surgery Progress Note ---
Surgery Progress Note Subjective Additional Comments no acute events comfortable agitated when awake wbc resolved plt 83? - repeat in AM exam stable Objective Last 24 Hour Vital Signs Date Time Temp Pulse Resp B/P (MAP) Pulse Ox O2 Delivery O2 Flow Rate FiO2 02/06/19 18:55 97 Room Air 21 02/06/19 17:00 54 16 118/54 (75) 96 02/06/19 16:30 57 20 111/52 (71) 95 02/06/19 16:00 Room Air 02/06/19 16:00 57 02/06/19 16:00 97.0 58 19 120/56 (77) 95 02/06/19 15:30 56 19 120/55 (76) 100 02/06/19 15:00 57 19 118/55 (76) 99 02/06/19 15:00 118/55 02/06/19 14:30 54 15 117/58 (77) 100 02/06/19 14:00 116/52 02/06/19 14:00 55 22 116/52 (73) 98 02/06/19 13:30 58 23 128/54 (78) 100 02/06/19 13:00 58 16 125/63 (83) 100 02/06/19 13:00 125/63 02/06/19 12:30 57 19 118/67 (84) 99 02/06/19 12:00 97.5 67 21 112/53 (72) 98 02/06/19 12:00 112/53 02/06/19 12:00 Venturi Mask 4.0 02/06/19 12:00 67 02/06/19 11:30 64 22 126/51 (76) 98 02/06/19 11:00 74 17 126/79 (95) 98 02/06/19 11:00 126/79 02/06/19 10:30 66 19 130/56 (80) 99 02/06/19 10:00 75/40 02/06/19 10:00 65 22 75/40 (52) 98 02/06/19 09:30 152/76 02/06/19 09:30 59 20 152/76 (101) 100 02/06/19 09:00 63 22 105/53 (70) 100 02/06/19 09:00 105/53 02/06/19 08:30 65 25 115/55 (75) 92 02/06/19 08:00 Venturi Mask 4.0 02/06/19 08:00 97.7 57 24 104/52 (69) 98 02/06/19 08:00 63 02/06/19 08:00 104/52 02/06/19 07:30 54 22 107/51 (69) 100 02/06/19 07:00 99/49 02/06/19 06:45 68 22 90/49 (63) 92 02/06/19 06:30 66 23 101/50 (67) 96 02/06/19 06:15 58 25 102/52 (69) 98 02/06/19 06:01 98/48 02/06/19 06:00 64 22 96/48 (64) 98 02/06/19 05:45 69 18 92/51 (65) 100 02/06/19 05:30 56 23 114/52 (72) 99 02/06/19 05:00 114/54 02/06/19 05:00 63 23 114/54 (74) 98 02/06/19 04:45 53 23 117/54 (75) 100 02/06/19 04:30 69 20 85/48 (60) 96 02/06/19 04:15 75 26 83/52 (62) 97 02/06/19 04:00 Venturi Mask 4.0 02/06/19 04:00 100/52 02/06/19 04:00 97.6 76 24 100/52 (68) 96 02/06/19 03:45 67 24 104/56 (72) 91 02/06/19 03:30 73 23 91/51 (64) 98 02/06/19 03:15 64 36 143/66 (91) 98 02/06/19 03:11 71 45 138/61 (86) 96 02/06/19 03:02 74 02/06/19 03:00 144/67 02/06/19 03:00 66 43 144/67 (92) 91 02/06/19 02:45 71 35 141/67 (91) 98 02/06/19 02:30 74 27 123/69 (87) 89 02/06/19 02:00 58 31 114/56 (75) 98 02/06/19 02:00 114/56 02/06/19 01:45 55 37 109/68 (82) 99 02/06/19 01:37 63 27 88/51 (63) 89 02/06/19 01:31 61 26 75/41 (52) 90 02/06/19 01:30 75/41 02/06/19 01:30 62 26 91 02/06/19 01:17 60 26 85/45 (58) 98 02/06/19 01:00 93/48 02/06/19 01:00 63 29 93/48 (63) 98 02/06/19 00:30 69 34 109/59 (76) 97 02/06/19 00:00 97.7 64 34 96/46 (63) 98 02/06/19 00:00 Venturi Mask 4.0 02/06/19 00:00 96/46 02/05/19 23:30 81 20 103/54 (70) 95 02/05/19 23:00 68 26 107/56 (73) 95 02/05/19 23:00 107/56 02/05/19 22:57 67 02/05/19 22:30 68 26 108/56 (73) 96 02/05/19 22:00 104/55 02/05/19 22:00 77 20 104/55 (71) 95 02/05/19 21:30 71 27 107/58 (74) 93 02/05/19 21:21 98 Venturi Mask 4.0 30 02/05/19 21:15 73 20 109/55 (73) 95 02/05/19 21:00 60 18 98/56 (70) 95 02/05/19 21:00 98/56 02/05/19 20:45 70 22 107/62 (77) 98 02/05/19 20:30 76 20 93/54 (67) 96 02/05/19 20:15 68 25 81/51 (61) 95 02/05/19 20:00 Venturi Mask 4.0 02/05/19 20:00 95/54 02/05/19 20:00 97.7 76 21 95/54 (68) 96 02/05/19 19:45 69 25 100/58 (72) 98 02/05/19 19:44 71 02/05/19 19:39 100/50 02/05/19 19:30 70 23 100/50 (67) 96 I&O Intake and Output 02/05/19 02/06/19 19:00 07:00 Intake Total 1588.869 ml 1039.321 ml Output Total 530 ml 930 ml Balance 1058.869 ml 109.321 ml IV Total 1588.869 ml 1039.321 ml Output Urine Total 530 ml 930 ml Dressing: other Wound: other Drains: other Cardiovascular: RSR Respiratory: decreased breath sounds Abdomen: soft, present bowel sounds, non-distended Extremities: no cyanosis, other Laboratory Tests Test 02/06/19 04:33 White Blood Count 10.4 K/UL (4.8-10.8) Red Blood Count 3.89 M/UL (4.70-6.10) L Hemoglobin 11.9 G/DL (14.2-18.0) L Hematocrit 35.9 % (42.0-52.0) L Mean Corpuscular Volume 92 FL (80-99) Mean Corpuscular Hemoglobin 30.6 PG (27.0-31.0) Mean Corpuscular Hemoglobin Concent 33.1 G/DL (32.0-36.0) Red Cell Distribution Width 14.3 % (11.6-14.8) Platelet Count 83 K/UL (150-450) #L Mean Platelet Volume 6.0 FL (6.5-10.1) L Neutrophils (%) (Auto) % (45.0-75.0) Lymphocytes (%) (Auto) % (20.0-45.0) Monocytes (%) (Auto) % (1.0-10.0) Eosinophils (%) (Auto) % (0.0-3.0) Basophils (%) (Auto) % (0.0-2.0) Differential Total Cells Counted 100 Neutrophils % (Manual) 87 % (45-75) H Lymphocytes % (Manual) 10 % (20-45) L Monocytes % (Manual) 1 % (1-10) Eosinophils % (Manual) 0 % (0-3) Basophils % (Manual) 0 % (0-2) Band Neutrophils 2 % (0-8) Platelet Estimate Decreased L Platelet Morphology Normal Red Blood Cell Morphology Normal Sodium Level 138 MMOL/L (136-145) Potassium Level 3.8 MMOL/L (3.5-5.1) Chloride Level 103 MMOL/L (98-107) Carbon Dioxide Level 29 MMOL/L (21-32) Anion Gap 6 mmol/L (5-15) Blood Urea Nitrogen 13 mg/dL (7-18) Creatinine 1.2 MG/DL (0.55-1.30) Estimat Glomerular Filtration Rate > 60 mL/min (>60) Glucose Level 135 MG/DL (74-106) H Calcium Level 7.4 MG/DL (8.5-10.1) L Phosphorus Level 2.7 MG/DL (2.5-4.9) Magnesium Level 1.7 MG/DL (1.8-2.4) L Total Bilirubin 0.6 MG/DL (0.2-1.0) Aspartate Amino Transf (AST/SGOT) 33 U/L (15-37) Alanine Aminotransferase (ALT/SGPT) 47 U/L (12-78) Alkaline Phosphatase 102 U/L (46-116) Total Protein 5.8 G/DL (6.4-8.2) L Albumin 1.9 G/DL (3.4-5.0) L Globulin 3.9 g/dL Albumin/Globulin Ratio 0.5 (1.0-2.7) L Plan Problems: (1) Sepsis Assessment & Plan: afebrile, HD improving HR -noted cardiology input leukocytosis lactic acidosis resolved slowly improving -IV abx as per ID -trend labs -swallow eval not ready so wait until once more responsive -PEG as per GI CONTINUE WIT NPO STATUS AND ORAL CARE (NO PO MEDS EXPLORE ALTERNATIVES WITH PHARMACY) AND INSERT NGT IF POSSIBLE. CONSIDER LONGER TERM NONORAL FEEDING OPTIONS. SKILLED DYSPHAGIA MANAGEMENT AND TX (TRIAL TX ? COMPLIANCE IP AND AT SNF). WILL NEED A REPEAT MOD BARIUM SWALLOW STUDY AN OP AFTER TX AND TIME (2-4 WEEKS) PRIOR TO PO TRIALS AND CLEARANCE FOR MEALS. plan for trial swallow again next week if cont to fail will discuss with team about peg as currently he is fairly alert discussed with GI. reviewed bioethics Neuro eval for dementia -will follow with recs thank you (2) Septic shock (3) Wound, open Assessment & Plan: Patient presented on admission with multiple pressure injuries being identified. Non-blanching erythema without induration noted to sacrum ,Right and Left buttocks. Scattered areas that are darker and maroon in color noted within base of wound. Scrotum is also erythematous. Unstageable pressure injury noted to Left heel. Base of wound is 100% necrotic but soft. Erythematous margins with surrounding non-blanching erythema.(L)3.2cm x (W)3cm. no drainage Right heel is boggy with non-blanching erythema.. Keloid scar noted distal R tibia. Partial thickness ulcer noted to dorsal R foot. Base of wound is moist and viable. Small amt serous exudate noted. Scattered small dry scabs noted to dorsal R foot. Tx.Plan: Swab Dorsal R foot and R heel with Betadine. Cover with Optifoam drsg. Change every 3 days and prn. Apply Moisture Barrier Paste to buttocks. Cover sacrum with Optifoam drsg. Change every 3 days and prn. Apply Cavilon Skin Barrier to L heel.Cover with Optifoam drsg. Change every 7 days and prn. APM/JELLY mattress. Reposition at least every 2hours or as tolerated. Off-load heels with pillow. Nutritional Optimization Will monitor while in critical condition DAILY ESTIMATED NEEDS: Needs based on Critical care, sepsis, wounds 69kg 22-30 kcals/kg 0724-0176 total kcals 1.25-2 g protein/kg 86-138 g total protein 25-30 mL/kg 2714-4356 total fluid mLs NUTRITION DIAGNOSIS: Increased kcal and pro needs r/t sepsis, wound healing, and underweight status as evidenced by pt w respiratory distress now intubated, critically elev WBC (*29.7), elev BG (200's), w/ multiple wounds (refer to eval), pt is @88% if [place] Body Weight. CURRENT TF: Glucerna 1.2 @30ml ENTERAL NUTRITION RECOMMENDATIONS: VITAL AF 1.2 @60ml/hr x24 hrs to provide 1440ml, 1728 kcal, 108g pro, 1168ml free H2O - WITH HEMODYNAMIC STABILITY, rec TF change to VITAL 1.2 to better meet est needs. Start @20ml/hr for 6 hrs. Advance as tolerated 10ml/hr q4-6 hrs to goal. - Flush per HOB over 30 degrees If pt remains on pressor support, rec trophic feeds of Vital 1.2 @5-10ml/hr to maintain gut integrity. ------ ADDITIONAL RECOMMENDATIONS: 1) Per SNF: HT 71 inches, 152 lbs (69.1kg) 2) Wound care: Add DANIELA in 4oz water BID via OGT + VIT C 250mg BID (f/up w/ WC specialist) 3) Monitor lytes daily, replete as needed 4) Daily calibrated bed scale wts Mauricio Anne Feb 06, 2019 19:25
--- NOTE | 2019-02-06 19:37 | NUR ---
HAND-OFF: Report given to EUGENIA Bui patient is now on room air with saturations at 95% with RR of 20-22 RR non labored and able to cough up phlegm. remains on dopamine at 4ml/hr with 1.717mcg/kg/min,
--- NOTE | 2019-02-06 19:46 | NUR ---
NURSE NOTES: received report fr perez rn pt awake but confuse on RA O2SAT 97 NO ACUTE RESP DISTRESS NO REPOSITION WELLS TO BEDSIDE DRAINAGE ON LEVO DRIP AT 1.717MCG/KG/MIN
[2019-02-06] MEDS: Dyna-Hex 2% Top Sol 2oz TOPIC SCH (20:39)
--- NOTE | 2019-02-06 22:00 | NUR ---
NURSE NOTES: reposition asleep at interval DOPA DRIP AT1.717 MCG / KG/MIN WITH 94/45-104/52
[2019-02-07] VITALS (48 sets, daily range): BP systolic 80–150; BP diastolic 45–77
--- NOTE | 2019-02-07 | NUR ---
NURSE NOTES: bs 163 insulin coverage given as order reposition
[2019-02-07] MEDS: NovoLOG Insulin Flexpen SUBQ SCH ×4 (00:16→18:00)
--- NOTE | 2019-02-07 02:00 | NUR ---
NURSE NOTES: pt asleep no apparent acute resp distress note
--- NOTE | 2019-02-07 04:00 | NUR ---
NURSE NOTES: complete bed bath oral care back care done reposition
[2019-02-07 04:45] LABS: HEMATOCRIT 35.5 % (42.0-52.0); HEMOGLOBIN 11.9 G/DL (14.2-18.0); MEAN CORPUSCULAR VOLUME 91 FL (80-99); PLATELET COUNT 76 K/UL (150-450); RED BLOOD COUNT 3.89 M/UL (4.70-6.10); RED CELL DISTRIBUTION WIDTH 13.7 % (11.6-14.8); WHITE BLOOD COUNT 9.5 K/UL (4.8-10.8)
[2019-02-07 05:05] LABS: ALANINE AMINOTRANSFERASE 39 U/L (12-78); ALBUMIN 1.9 G/DL (3.4-5.0); ALBUMIN/GLOBULIN RATIO 0.5 (1.0-2.7); ALKALINE PHOSPHATASE 96 U/L (46-116); ANION GAP 8 mmol/L (5-15); ASPARTATE AMINO TRANSFERASE 25 U/L (15-37); BILIRUBIN,TOTAL 0.5 MG/DL (0.2-1.0); BLOOD UREA NITROGEN 14 mg/dL (7-18); CALCIUM 7.6 MG/DL (8.5-10.1); CARBON DIOXIDE 29 MMOL/L (21-32); CHLORIDE 104 MMOL/L (98-107); CREATININE 1.1 MG/DL (0.55-1.30); SODIUM 141 MMOL/L (136-145)
--- NOTE | 2019-02-07 06:00 | NUR ---
NURSE NOTES:1 pt bs 108 no insulin coverage rh 56-60 dopa drip 717 NURSE NOTES: BS 108 NO INSULIN COVERAGE HR 56-63
[2019-02-07] MEDS: DOPamine 400mg/250ml 250 ML IV SCH (06:06)
[2019-02-07] MEDS: Hydrocortisone 100mg Inj IV SCH ×3 (06:06→22:45)
--- NOTE | 2019-02-07 08:12 | General Progress Note ---
Assessment/Plan Problem List: (1) Renal failure (ARF), acute on chronic ICD Codes: N17.9 - Acute kidney failure, unspecified; N18.9 - Chronic kidney disease, unspecified SNOMED: 710024823 (2) Sepsis ICD Codes: A41.9 - Sepsis, unspecified organism SNOMED: 51558004 Qualifiers: Qualified Codes: A41.9 - Sepsis, unspecified organism (3) Malignant neoplasm of right kidney ICD Codes: C64.1 - Malignant neoplasm of right kidney, except renal pelvis SNOMED: 626904450 (4) Acute respiratory failure ICD Codes: J96.00 - Acute respiratory failure, unspecified whether with hypoxia or hypercapnia SNOMED: 39113574 (5) PVD (peripheral vascular disease) ICD Codes: I73.9 - Peripheral vascular disease, unspecified SNOMED: 582335066 Status: stable, progressing Assessment/Plan: vent abx wound care cbc bmp am ltach eval Subjective Constitutional: Reports: weakness Allergies: Coded Allergies: No Known Allergies (Unverified , 01/24/19) All Systems: reviewed and negative except above Subjective sleepy in icu Objective Last 24 Hour Vital Signs Date Time Temp Pulse Resp B/P (MAP) Pulse Ox O2 Delivery O2 Flow Rate FiO2 02/07/19 08:00 97.2 81 18 127/67 (87) 96 02/07/19 07:53 Room Air 02/07/19 07:30 75 22 118/55 (76) 96 02/07/19 07:00 60 22 115/59 (77) 94 02/07/19 07:00 115/59 02/07/19 06:30 64 16 112/54 (73) 95 02/07/19 06:06 116/56 02/07/19 06:00 60 20 116/56 (76) 94 02/07/19 06:00 112/54 02/07/19 05:30 62 31 98/50 (66) 96 02/07/19 05:00 108/56 02/07/19 05:00 57 42 118/54 (75) 95 02/07/19 04:30 81 26 94/77 (83) 92 02/07/19 04:00 Room Air 02/07/19 04:00 98.5 65 21 100/56 (71) 95 02/07/19 04:00 86/62 02/07/19 04:00 62 02/07/19 03:30 65 26 104/60 (75) 94 02/07/19 03:15 61 19 103/58 (73) 95 02/07/19 03:02 60 19 104/58 (73) 95 02/07/19 03:00 58 24 111/59 (76) 94 02/07/19 03:00 101/61 02/07/19 02:30 64 23 96/51 (66) 94 02/07/19 02:00 95/55 02/07/19 02:00 62 23 97/53 (68) 95 02/07/19 01:30 65 32 93/57 (69) 97 02/07/19 01:00 97/48 02/07/19 01:00 75 22 80/59 (66) 92 02/07/19 00:30 98.6 73 26 123/66 (85) 93 02/07/19 00:00 73 02/07/19 00:00 100/66 02/07/19 00:00 Room Air 02/07/19 00:00 65 20 123/62 (82) 95 02/06/19 23:30 65 28 108/47 (67) 93 02/06/19 23:00 66 18 104/62 (76) 94 02/06/19 23:00 104/52 02/06/19 22:30 61 16 104/60 (75) 95 02/06/19 22:00 96/54 02/06/19 22:00 98.4 76 24 108/53 (71) 93 02/06/19 21:30 62 18 106/54 (71) 94 02/06/19 21:00 107/55 02/06/19 21:00 65 22 95/56 (69) 94 02/06/19 20:30 61 17 115/49 (71) 96 02/06/19 20:00 61 17 115/52 (73) 97 02/06/19 20:00 61 02/06/19 20:00 96/60 02/06/19 20:00 Room Air 02/06/19 19:30 61 17 112/51 (71) 95 02/06/19 19:00 110/55 02/06/19 19:00 65 15 110/55 (73) 95 02/06/19 18:55 97 Room Air 21 11/23/19 18:30 66 16 110/56 (74) 96 02/06/19 18:00 62 18 118/56 (76) 96 02/06/19 18:00 118/56 02/06/19 17:30 59 16 112/56 (74) 96 02/06/19 17:00 54 16 118/54 (75) 96 02/06/19 17:00 120/56 02/06/19 16:30 57 20 111/52 (71) 95 02/06/19 16:00 Room Air 02/06/19 16:00 57 02/06/19 16:00 118/55 02/06/19 16:00 97.0 58 19 120/56 (77) 95 02/06/19 15:30 56 19 120/55 (76) 100 02/06/19 15:00 57 19 118/55 (76) 99 02/06/19 15:00 118/55 02/06/19 14:30 54 15 117/58 (77) 100 02/06/19 14:00 116/52 02/06/19 14:00 55 22 116/52 (73) 98 02/06/19 13:30 58 23 128/54 (78) 100 02/06/19 13:00 58 16 125/63 (83) 100 02/06/19 13:00 125/63 02/06/19 12:30 57 19 118/67 (84) 99 02/06/19 12:00 97.5 67 21 112/53 (72) 98 02/06/19 12:00 112/53 02/06/19 12:00 Venturi Mask 4.0 02/06/19 12:00 67 02/06/19 11:30 64 22 126/51 (76) 98 02/06/19 11:00 74 17 126/79 (95) 98 02/06/19 11:00 126/79 02/06/19 10:30 66 19 130/56 (80) 99 02/06/19 10:00 75/40 02/06/19 10:00 65 22 75/40 (52) 98 02/06/19 09:30 152/76 02/06/19 09:30 59 20 152/76 (101) 100 02/06/19 09:00 63 22 105/53 (70) 100 02/06/19 09:00 105/53 02/06/19 08:30 65 25 115/55 (75) 92 Intake and Output 02/06/19 02/07/19 18:59 06:59 Intake Total 978.015 ml 948.012 ml Output Total 785 ml 870 ml Balance 193.015 ml 78.012 ml IV Total 948.015 ml 948.012 ml Other 30 ml Output Urine Total 785 ml 870 ml Laboratory Tests 02/07/19 04:02: White Blood Count 9.5, Red Blood Count 3.89L, Hemoglobin 11.9L, Hematocrit 35.5L , Mean Corpuscular Volume 91, Mean Corpuscular Hemoglobin 30.5, Mean Corpuscular Hemoglobin Concent 33.4, Red Cell Distribution Width 13.7, Platelet Count 76L, Mean Platelet Volume 6.4L, Neutrophils (%) (Auto) , Lymphocytes (%) ( Auto) , Monocytes (%) (Auto) , Eosinophils (%) (Auto) , Basophils (%) (Auto) , Neutrophils % (Manual) [Pending], Lymphocytes % (Manual) [Pending], Platelet Estimate [Pending], Platelet Morphology [Pending], Erythrocyte Sedimentation Rate 31H, Sodium Level 141, Potassium Level 3.0L, Chloride Level 104, Carbon Dioxide Level 29, Anion Gap 8, Blood Urea Nitrogen 14, Creatinine 1.1, Estimat Glomerular Filtration Rate > 60, Glucose Level 124H, Calcium Level 7.6L, Phosphorus Level 2.0L, Magnesium Level 2.0, Total Bilirubin 0.5, Aspartate Amino Transf (AST/SGOT) 25, Alanine Aminotransferase (ALT/SGPT) 39, Alkaline Phosphatase 96, C-Reactive Protein, Quantitative 8.1H, Total Protein 5.7L, Albumin 1.9L, Globulin 3.8, Albumin/Globulin Ratio 0.5L Height (Feet): 5 Height (Inches): 7.00 Weight (Pounds): 142 General Appearance: lethargic EENT: normal ENT inspection Neck: non-tender Cardiovascular: normal peripheral pulses, normal rate, regular rhythm Respiratory/Chest: chest wall non-tender, lungs clear, normal breath sounds Abdomen: normal bowel sounds, non tender, soft Extremities: normal inspection Edema: no edema noted Arm (L), no edema noted Arm (R), no edema noted Leg (L), no edema noted Leg (R), no edema noted Pedal (L), no edema noted Pedal (R), no edema noted Generalized Neurologic: motor weakness Skin: normal pigmentation, warm/dry Corey Short DO Feb 07, 2019 08:12
--- NOTE | 2019-02-07 08:45 | Progress Note ---
DATE: 02/07/2019 SUBJECTIVE: This is a 68-year-old male with sepsis and dehydration. This patient still has some confusion, some disorganized thought process, and mood lability. He has got initially no mood lability, but he is very confused, disorganized, and altered mental status. MENTAL STATUS EXAMINATION: This is a 68-year-old male. Appearance is disheveled. Attitude, irritable and agitated. Affect, guarded and restricted. Intellect, poor. Mood, depressed and anxious. Motor activity, psychomotor agitation. Attention span is poor. Orientation x2. Speech is low volume, slurred. Thought process, disorganized and illogical. Insight and judgment is poor. DIAGNOSIS: . PLAN: Plan for this patient, treat him with psychotropic medications to stabilize his mood. Provided him with 20 minutes of behavioral management. Chart reviewed. Discussed with staff. Seen and assessed at bedside. Stacie Paige M.D. DR: MEY JOB#: [id number] CC:
[2019-02-07] MEDS: Ascorbic Acid 500mg tab ORAL SCH ×2 (09:00→18:00)
[2019-02-07] MEDS: Midodrine 10mg tab NG SCH ×3 (09:00→18:00)
[2019-02-07] MEDS: Heparin 5000 units/ml inj SUBQ SCH ×2 (09:00→20:27)
[2019-02-07] MEDS: Memantine 5 MG TAB ORAL SCH (09:00)
--- NOTE | 2019-02-07 09:13 | General Progress Note ---
Assessment/Plan Problem List: (1) DM (diabetes mellitus) ICD Codes: E11.9 - Type 2 diabetes mellitus without complications SNOMED: 10832224 (2) cardiomyopathy with EF of 35% (3) Encounter for PEG (percutaneous endoscopic gastrostomy) ICD Codes: Z43.1 - Encounter for attention to gastrostomy SNOMED: 093809739, 463723316 (4) Dysphagia ICD Codes: R13.10 - Dysphagia, unspecified SNOMED: 54357160, 593225978 (5) Bradyarrhythmia ICD Codes: I49.8 - Other specified cardiac arrhythmias SNOMED: 017729822 (6) Systolic heart failure ICD Codes: I50.20 - Unspecified systolic (congestive) heart failure SNOMED: 159966169 (7) Schizophrenia ICD Codes: F20.9 - Schizophrenia, unspecified SNOMED: 02628096 (8) COPD (chronic obstructive pulmonary disease) ICD Codes: J44.9 - Chronic obstructive pulmonary disease, unspecified SNOMED: 30465620 Qualifiers: Qualified Codes: J44.9 - Chronic obstructive pulmonary disease, unspecified Status: stable, progressing Assessment/Plan: NGT clogged and removed abd us reviewed repeat LFTS in am failed swallow eval needs peg Bioethic consult recommended against peg if dementia is severe recommend neurology consult>> pending for today attempt to place NGT failed repeat swallow eval on Friday Subjective Allergies: Coded Allergies: No Known Allergies (Unverified , 01/24/19) Objective Last 24 Hour Vital Signs Date Time Temp Pulse Resp B/P (MAP) Pulse Ox O2 Delivery O2 Flow Rate FiO2 02/07/19 08:00 97.2 81 18 127/67 (87) 96 02/07/19 08:00 69 02/07/19 07:53 Room Air 02/07/19 07:30 75 22 118/55 (76) 96 02/07/19 07:00 60 22 115/59 (77) 94 02/07/19 07:00 115/59 02/07/19 06:30 64 16 112/54 (73) 95 02/07/19 06:06 116/56 02/07/19 06:00 60 20 116/56 (76) 94 02/07/19 06:00 112/54 02/07/19 05:30 62 31 98/50 (66) 96 02/07/19 05:00 108/56 02/07/19 05:00 57 42 118/54 (75) 95 02/07/19 04:30 81 26 94/77 (83) 92 02/07/19 04:00 Room Air 02/07/19 04:00 98.5 65 21 100/56 (71) 95 02/07/19 04:00 86/62 02/07/19 04:00 62 02/07/19 03:30 65 26 104/60 (75) 94 02/07/19 03:15 61 19 103/58 (73) 95 02/07/19 03:02 60 19 104/58 (73) 95 02/07/19 03:00 58 24 111/59 (76) 94 02/07/19 03:00 101/61 02/07/19 02:30 64 23 96/51 (66) 94 02/07/19 02:00 95/55 02/07/19 02:00 62 23 97/53 (68) 95 02/07/19 01:30 65 32 93/57 (69) 97 02/07/19 01:00 97/48 02/07/19 01:00 75 22 80/59 (66) 92 02/07/19 00:30 98.6 73 26 123/66 (85) 93 02/07/19 00:00 73 02/07/19 00:00 100/66 02/07/19 00:00 Room Air 02/07/19 00:00 65 20 123/62 (82) 95 02/06/19 23:30 65 28 108/47 (67) 93 02/06/19 23:00 66 18 104/62 (76) 94 02/06/19 23:00 104/52 02/06/19 22:30 61 16 104/60 (75) 95 02/06/19 22:00 96/54 02/06/19 22:00 98.4 76 24 108/53 (71) 93 02/06/19 21:30 62 18 106/54 (71) 94 02/06/19 21:00 107/55 02/06/19 21:00 65 22 95/56 (69) 94 02/06/19 20:30 61 17 115/49 (71) 96 02/06/19 20:00 61 17 115/52 (73) 97 02/06/19 20:00 61 02/06/19 20:00 96/60 02/06/19 20:00 Room Air 02/06/19 19:30 61 17 112/51 (71) 95 02/06/19 19:00 110/55 02/06/19 19:00 65 15 110/55 (73) 95 02/06/19 18:55 97 Room Air 21 02/06/19 18:30 66 16 110/56 (74) 96 02/06/19 18:00 62 18 118/56 (76) 96 02/06/19 18:00 118/56 02/06/19 17:30 59 16 112/56 (74) 96 02/06/19 17:00 54 16 118/54 (75) 96 02/06/19 17:00 120/56 02/06/19 16:30 57 20 111/52 (71) 95 02/06/19 16:00 Room Air 02/06/19 16:00 57 02/06/19 16:00 118/55 02/06/19 16:00 97.0 58 19 120/56 (77) 95 02/06/19 15:30 56 19 120/55 (76) 100 02/06/19 15:00 57 19 118/55 (76) 99 02/06/19 15:00 118/55 02/06/19 14:30 54 15 117/58 (77) 100 02/06/19 14:00 116/52 02/06/19 14:00 55 22 116/52 (73) 98 02/06/19 13:30 58 23 128/54 (78) 100 02/06/19 13:00 58 16 125/63 (83) 100 02/06/19 13:00 125/63 02/06/19 12:30 57 19 118/67 (84) 99 02/06/19 12:00 97.5 67 21 112/53 (72) 98 02/06/19 12:00 112/53 02/06/19 12:00 Venturi Mask 4.0 02/06/19 12:00 67 02/06/19 11:30 64 22 126/51 (76) 98 02/06/19 11:00 74 17 126/79 (95) 98 02/06/19 11:00 126/79 02/06/19 10:30 66 19 130/56 (80) 99 02/06/19 10:00 75/40 02/06/19 10:00 65 22 75/40 (52) 98 02/06/19 09:30 152/76 02/06/19 09:30 59 20 152/76 (101) 100 Intake and Output 02/06/19 02/07/19 18:59 06:59 Intake Total 978.015 ml 948.012 ml Output Total 785 ml 870 ml Balance 193.015 ml 78.012 ml IV Total 948.015 ml 948.012 ml Other 30 ml Output Urine Total 785 ml 870 ml Laboratory Tests 02/07/19 04:02: White Blood Count 9.5, Red Blood Count 3.89L, Hemoglobin 11.9L, Hematocrit 35.5L , Mean Corpuscular Volume 91, Mean Corpuscular Hemoglobin 30.5, Mean Corpuscular Hemoglobin Concent 33.4, Red Cell Distribution Width 13.7, Platelet Count 76L, Mean Platelet Volume 6.4L, Neutrophils (%) (Auto) , Lymphocytes (%) ( Auto) , Monocytes (%) (Auto) , Eosinophils (%) (Auto) , Basophils (%) (Auto) , Differential Total Cells Counted 100, Neutrophils % (Manual) 81H, Lymphocytes % (Manual) 14L, Monocytes % (Manual) 5, Eosinophils % (Manual) 0, Basophils % ( Manual) 0, Band Neutrophils 0, Platelet Estimate DecreasedL, Platelet Morphology Normal, Red Blood Cell Morphology Normal, Erythrocyte Sedimentation Rate 31H, Sodium Level 141, Potassium Level 3.0L, Chloride Level 104, Carbon Dioxide Level 29, Anion Gap 8, Blood Urea Nitrogen 14, Creatinine 1.1, Estimat Glomerular Filtration Rate > 60, Glucose Level 124H, Calcium Level 7.6L, Phosphorus Level 2.0L, Magnesium Level 2.0, Total Bilirubin 0.5, Aspartate Amino Transf (AST/SGOT) 25, Alanine Aminotransferase (ALT/SGPT) 39, Alkaline Phosphatase 96, C-Reactive Protein, Quantitative 8.1H, Total Protein 5.7L, Albumin 1.9L, Globulin 3.8, Albumin/Globulin Ratio 0.5L Height (Feet): 5 Height (Inches): 7.00 Weight (Pounds): 142 General Appearance: alert EENT: PERRL/EOMI Neck: supple Cardiovascular: normal rate Respiratory/Chest: decreased breath sounds Abdomen: normal bowel sounds, non tender, soft Extremities: non-tender Leonel Valderrama MD Feb 07, 2019 09:12
--- NOTE | 2019-02-07 09:32 | NUR ---
NURSE NOTES: Dr. Valderrama rounded on patient and completed assessment, made aware Dr. Aguiar will assess patient this afternoon for possible PEG placement, would like to order swallow evaluation to be done this Friday.
[2019-02-07] MEDS: Theophylline ER 100mg ORAL SCH ×2 (09:56→20:25)
[2019-02-07] MEDS: Pantoprazole Inj IVP SCH (09:56)
--- NOTE | 2019-02-07 10:50 | NUR ---
NURSE NOTES: Dr. Gonzalez made aware of patient potassium level of 3.0 and Phosphorus level of 2.0, ordered to give potassium phosphorus 3mm for electrolyte replacement.
--- NOTE | 2019-02-07 11:30 | Nephrology Progress Note ---
Assessment/Plan Problem List: (1) Renal failure (ARF), acute on chronic (2) Acute respiratory failure (3) Septic shock (4) Bradyarrhythmia Assessment Renal failure- Likely acute on Chronic- Cr lower Acute respiratory failure- intubated on Vent Septic Shock- On pressors COPD PVD Schizophrenia Plan NGT out K Phos IV Now ( 02/02) extubated- tolerating well pulmonary support aim to taper dopamine stop IV fluid renal dose dopamin for low HR K supplement down on hydration One dose IV Lasix mag and Phos and K supplement as needed 2D Echo Low Ej Fx - Global Hypokinesis Avoid nephrotoxics afterload reduction monitor renal parameters urine studies ADRIAN IMPRESSION: Nonobstructive stones in the left kidney demonstrated. Bilateral renal cysts. Subjective ROS Limited/Unobtainable: No Constitutional: Reports: malaise, weakness Objective Objective Last 24 Hour Vital Signs Date Time Temp Pulse Resp B/P (MAP) Pulse Ox O2 Delivery O2 Flow Rate FiO2 02/07/19 11:00 117/55 02/07/19 11:00 59 20 117/55 (75) 94 02/07/19 10:30 75 21 111/55 (73) 93 02/07/19 10:00 90 20 113/64 (80) 97 02/07/19 10:00 133/62 02/07/19 09:30 71 18 130/71 (90) 96 02/07/19 09:00 62 23 119/59 (79) 95 02/07/19 09:00 119/56 02/07/19 08:30 71 16 119/62 (81) 96 02/07/19 08:00 97.2 81 18 127/67 (87) 96 02/07/19 08:00 69 02/07/19 07:53 Room Air 02/07/19 07:30 75 22 118/55 (76) 96 02/07/19 07:00 60 22 115/59 (77) 94 02/07/19 07:00 115/59 02/07/19 06:30 64 16 112/54 (73) 95 02/07/19 06:06 116/56 02/07/19 06:00 60 20 116/56 (76) 94 02/07/19 06:00 112/54 02/07/19 05:30 62 31 98/50 (66) 96 02/07/19 05:00 108/56 02/07/19 05:00 57 42 118/54 (75) 95 02/07/19 04:30 81 26 94/77 (83) 92 02/07/19 04:00 Room Air 02/07/19 04:00 98.5 65 21 100/56 (71) 95 02/07/19 04:00 86/62 02/07/19 04:00 62 02/07/19 03:30 65 26 104/60 (75) 94 02/07/19 03:15 61 19 103/58 (73) 95 02/07/19 03:02 60 19 104/58 (73) 95 02/07/19 03:00 58 24 111/59 (76) 94 02/07/19 03:00 101/61 02/07/19 02:30 64 23 96/51 (66) 94 02/07/19 02:00 95/55 02/07/19 02:00 62 23 97/53 (68) 95 02/07/19 01:30 65 32 93/57 (69) 97 02/07/19 01:00 97/48 02/07/19 01:00 75 22 80/59 (66) 92 02/07/19 00:30 98.6 73 26 123/66 (85) 93 02/07/19 00:00 73 02/07/19 00:00 100/66 02/07/19 00:00 Room Air 02/07/19 00:00 65 20 123/62 (82) 95 02/06/19 23:30 65 28 108/47 (67) 93 02/06/19 23:00 66 18 104/62 (76) 94 02/06/19 23:00 104/52 02/06/19 22:30 61 16 104/60 (75) 95 02/06/19 22:00 96/54 02/06/19 22:00 98.4 76 24 108/53 (71) 93 02/06/19 21:30 62 18 106/54 (71) 94 02/06/19 21:00 107/55 02/06/19 21:00 65 22 95/56 (69) 94 02/06/19 20:30 61 17 115/49 (71) 96 02/06/19 20:00 61 17 115/52 (73) 97 02/06/19 20:00 61 02/06/19 20:00 96/60 02/06/19 20:00 Room Air 02/06/19 19:30 61 17 112/51 (71) 95 02/06/19 19:00 110/55 02/06/19 19:00 65 15 110/55 (73) 95 02/06/19 18:55 97 Room Air 21 02/06/19 18:30 66 16 110/56 (74) 96 02/06/19 18:00 62 18 118/56 (76) 96 02/06/19 18:00 118/56 02/06/19 17:30 59 16 112/56 (74) 96 02/06/19 17:00 54 16 118/54 (75) 96 02/06/19 17:00 120/56 02/06/19 16:30 57 20 111/52 (71) 95 02/06/19 16:00 Room Air 02/06/19 16:00 57 02/06/19 16:00 118/55 02/06/19 16:00 97.0 58 19 120/56 (77) 95 02/06/19 15:30 56 19 120/55 (76) 100 02/06/19 15:00 57 19 118/55 (76) 99 02/06/19 15:00 118/55 02/06/19 14:30 54 15 117/58 (77) 100 02/06/19 14:00 116/52 02/06/19 14:00 55 22 116/52 (73) 98 02/06/19 13:30 58 23 128/54 (78) 100 02/06/19 13:00 58 16 125/63 (83) 100 02/06/19 13:00 125/63 02/06/19 12:30 57 19 118/67 (84) 99 02/06/19 12:00 97.5 67 21 112/53 (72) 98 02/06/19 12:00 112/53 02/06/19 12:00 Venturi Mask 4.0 02/06/19 12:00 67 02/06/19 11:30 64 22 126/51 (76) 98 Intake and Output 02/06/19 02/07/19 18:59 06:59 Intake Total 978.015 ml 948.012 ml Output Total 785 ml 870 ml Balance 193.015 ml 78.012 ml IV Total 948.015 ml 948.012 ml Other 30 ml Output Urine Total 785 ml 870 ml Laboratory Tests 02/07/19 04:02: White Blood Count 9.5, Red Blood Count 3.89L, Hemoglobin 11.9L, Hematocrit 35.5L , Mean Corpuscular Volume 91, Mean Corpuscular Hemoglobin 30.5, Mean Corpuscular Hemoglobin Concent 33.4, Red Cell Distribution Width 13.7, Platelet Count 76L, Mean Platelet Volume 6.4L, Neutrophils (%) (Auto) , Lymphocytes (%) ( Auto) , Monocytes (%) (Auto) , Eosinophils (%) (Auto) , Basophils (%) (Auto) , Differential Total Cells Counted 100, Neutrophils % (Manual) 81H, Lymphocytes % (Manual) 14L, Monocytes % (Manual) 5, Eosinophils % (Manual) 0, Basophils % ( Manual) 0, Band Neutrophils 0, Platelet Estimate DecreasedL, Platelet Morphology Normal, Red Blood Cell Morphology Normal, Erythrocyte Sedimentation Rate 31H, Sodium Level 141, Potassium Level 3.0L, Chloride Level 104, Carbon Dioxide Level 29, Anion Gap 8, Blood Urea Nitrogen 14, Creatinine 1.1, Estimat Glomerular Filtration Rate > 60, Glucose Level 124H, Calcium Level 7.6L, Phosphorus Level 2.0L, Magnesium Level 2.0, Total Bilirubin 0.5, Aspartate Amino Transf (AST/SGOT) 25, Alanine Aminotransferase (ALT/SGPT) 39, Alkaline Phosphatase 96, C-Reactive Protein, Quantitative 8.1H, Total Protein 5.7L, Albumin 1.9L, Globulin 3.8, Albumin/Globulin Ratio 0.5L Height (Feet): 5 Height (Inches): 7.00 Weight (Pounds): 142 General Appearance: no apparent distress Cardiovascular: normal rate Respiratory/Chest: decreased breath sounds Abdomen: soft Bienvenido Gonzalez MD Feb 07, 2019 11:30
[2019-02-07] MEDS ORDERED: Potassium Phosphate 30 MM in NS 275 ML IV SCH (12:00)
--- NOTE | 2019-02-07 12:16 | Infectious Diseases Prog Note ---
Assessment/Plan Assessment/Plan 68yo gentleman with PMH below presents with fever(100.1 is highest recorded in transfer packet) and worsened congestion from SNF. In the ED, pt was placed on oxygen then BiPAP but ultimately intubated. ID consulted for antimicrobial recommendation. Tmax 100.1 at halfway, SP Leukocytosis, hydrocortisone 01/25-02/02 Lactic acidosis, SP Shock, was on levophed, titrated off, but now on dopamine Likely MRSA PNA COPD? CHF? thick secretions per nurse flu swab negative 01/24 CXR: Extensive opacities within upper lobes demonstrated. In addition there is generalized interstitial densities throughout both lung craig. 01/25 CXR: Bilateral infiltrates appear fairly extensive but unchanged. TTE with EF 30-35% 01/25 sputum cx: MRSA 01/25 urine legionella ag: P 01/27 CXR: Extensive infiltrates bilaterally. Some degree of a superimposed interstitial edema has improved since the last exam. Endotracheal tube and NG tube remain in satisfactory in position. 01/28 CXR: Extensive bilateral infiltrates are again demonstrated without change. Tubes and lines are stable. 01/28 sputum cx: MRSA 01/30 CXR: 1. Overall similar patchy opacities in the lungs, most prominently in the right upper lung and right mid and lower lung. Probable small bilateral pleural effusions. 2. Endotracheal tube terminates in the region of the lower thoracic aorta above the cristina. Enteric tube courses past the diaphragm and out of the [id number], but the sidehole is seen near the GE junction. 02/02 CXR: Interim removal of previously demonstrated nasogastric tube and endotracheal tube. Right arm PICC remains. Bilateral fairly extensive interstitial opacities persist, unchanged. There is a small left pleural effusion again demonstrated 02/04 CXR: Patchy interstitial prominence demonstrated bilaterally. Heart size is stable. Possible UTI? new mcmahon placed in ED 01/25 UA 15-20 WBC 01/25 Ucx: NG Renal US: Nonobstructive stones in the left kidney demonstrated. Bilateral renal cysts. Limited evaluation due to body habitus. r/o bacteremia 01/25 BCx: ngtd 01/31 bcx: ngtd Failed Swallow evaluation 02/04 at risk for aspiration pneumonitis and pneumonia No diarrhea HIV test negative MRSA screen positive RLE skin graft b/l LE heel pressure ulcers and sacral ulcer Tobacco abuse COPD HTN Kidney cancer OA CKD Anemia Schizophrenia PVD CHF Plan: Linezolid #8/10 02/01 SP Azithromycin #5/5 for atypicals 01/31 Ertapenem #8 01/31 DC Amikacin and vancomycin #6 SP cefepime #1 SP flagyl #1 SP vancomycin #1 aspiration precaution, elevate HOB, oral care, frequent suction pulmonary toilet, chest PT DVT PPX discussed with RN Thank you for this consult. [facility] will continue to follow the patient with you. Subjective Allergies: Coded Allergies: No Known Allergies (Unverified , 01/24/19) Subjective Afebrile. Leukocytosis resolved. Pt denies sob Dopa @1 Objective Vital Signs Last 24 Hour Vital Signs Date Time Temp Pulse Resp B/P (MAP) Pulse Ox O2 Delivery O2 Flow Rate FiO2 02/07/19 12:00 Room Air 02/07/19 12:00 97.8 70 20 99/51 (67) 95 02/07/19 12:00 72 02/07/19 11:30 63 19 110/58 (75) 96 02/07/19 11:00 117/55 02/07/19 11:00 59 20 117/55 (75) 94 02/07/19 10:30 75 21 111/55 (73) 93 02/07/19 10:00 90 20 113/64 (80) 97 02/07/19 10:00 133/62 02/07/19 09:30 71 18 130/71 (90) 96 02/07/19 09:00 62 23 119/59 (79) 95 02/07/19 09:00 119/56 02/07/19 08:30 71 16 119/62 (81) 96 02/07/19 08:00 97.2 81 18 127/67 (87) 96 02/07/19 08:00 69 02/07/19 07:53 Room Air 02/07/19 07:30 75 22 118/55 (76) 96 02/07/19 07:00 60 22 115/59 (77) 94 02/07/19 07:00 115/59 02/07/19 06:30 64 16 112/54 (73) 95 02/07/19 06:06 116/56 02/07/19 06:00 60 20 116/56 (76) 94 02/07/19 06:00 112/54 02/07/19 05:30 62 31 98/50 (66) 96 02/07/19 05:00 108/56 02/07/19 05:00 57 42 118/54 (75) 95 02/07/19 04:30 81 26 94/77 (83) 92 02/07/19 04:00 Room Air 02/07/19 04:00 98.5 65 21 100/56 (71) 95 02/07/19 04:00 86/62 02/07/19 04:00 62 02/07/19 03:30 65 26 104/60 (75) 94 02/07/19 03:15 61 19 103/58 (73) 95 02/07/19 03:02 60 19 104/58 (73) 95 02/07/19 03:00 58 24 111/59 (76) 94 02/07/19 03:00 101/61 02/07/19 02:30 64 23 96/51 (66) 94 02/07/19 02:00 95/55 02/07/19 02:00 62 23 97/53 (68) 95 02/07/19 01:30 65 32 93/57 (69) 97 02/07/19 01:00 97/48 02/07/19 01:00 75 22 80/59 (66) 92 02/07/19 00:30 98.6 73 26 123/66 (85) 93 02/07/19 00:00 73 02/07/19 00:00 100/66 02/07/19 00:00 Room Air 02/07/19 00:00 65 20 123/62 (82) 95 02/06/19 23:30 65 28 108/47 (67) 93 02/06/19 23:00 66 18 104/62 (76) 94 02/06/19 23:00 104/52 02/06/19 22:30 61 16 104/60 (75) 95 02/06/19 22:00 96/54 02/06/19 22:00 98.4 76 24 108/53 (71) 93 02/06/19 21:30 62 18 106/54 (71) 94 02/06/19 21:00 107/55 02/06/19 21:00 65 22 95/56 (69) 94 02/06/19 20:30 61 17 115/49 (71) 96 02/06/19 20:00 61 17 115/52 (73) 97 02/06/19 20:00 61 02/06/19 20:00 96/60 02/06/19 20:00 Room Air 02/06/19 19:30 61 17 112/51 (71) 95 02/06/19 19:00 110/55 02/06/19 19:00 65 15 110/55 (73) 95 02/06/19 18:55 97 Room Air 21 02/06/19 18:30 66 16 110/56 (74) 96 02/06/19 18:00 62 18 118/56 (76) 96 02/06/19 18:00 118/56 02/06/19 17:30 59 16 112/56 (74) 96 02/06/19 17:00 54 16 118/54 (75) 96 02/06/19 17:00 120/56 02/06/19 16:30 57 20 111/52 (71) 95 02/06/19 16:00 Room Air 02/06/19 16:00 57 02/06/19 16:00 118/55 02/06/19 16:00 97.0 58 19 120/56 (77) 95 02/06/19 15:30 56 19 120/55 (76) 100 02/06/19 15:00 57 19 118/55 (76) 99 02/06/19 15:00 118/55 02/06/19 14:30 54 15 117/58 (77) 100 02/06/19 14:00 116/52 02/06/19 14:00 55 22 116/52 (73) 98 02/06/19 13:30 58 23 128/54 (78) 100 02/06/19 13:00 58 16 125/63 (83) 100 02/06/19 13:00 125/63 02/06/19 12:30 57 19 118/67 (84) 99 Height (Feet): 5 Height (Inches): 7.00 Weight (Pounds): 142 Objective Gen: NAD HEENT: anicteric sclera. CV: RRR. Resp: coarse. equal chest rise. Abd: soft. normoactive Bs+ Neuro: awake. appropriate Skin: RLE skin graft Laboratory Tests Test 02/07/19 04:02 White Blood Count 9.5 K/UL (4.8-10.8) Red Blood Count 3.89 M/UL (4.70-6.10) L Hemoglobin 11.9 G/DL (14.2-18.0) L Hematocrit 35.5 % (42.0-52.0) L Mean Corpuscular Volume 91 FL (80-99) Mean Corpuscular Hemoglobin 30.5 PG (27.0-31.0) Mean Corpuscular Hemoglobin Concent 33.4 G/DL (32.0-36.0) Red Cell Distribution Width 13.7 % (11.6-14.8) Platelet Count 76 K/UL (150-450) L Mean Platelet Volume 6.4 FL (6.5-10.1) L Neutrophils (%) (Auto) % (45.0-75.0) Lymphocytes (%) (Auto) % (20.0-45.0) Monocytes (%) (Auto) % (1.0-10.0) Eosinophils (%) (Auto) % (0.0-3.0) Basophils (%) (Auto) % (0.0-2.0) Differential Total Cells Counted 100 Neutrophils % (Manual) 81 % (45-75) H Lymphocytes % (Manual) 14 % (20-45) L Monocytes % (Manual) 5 % (1-10) Eosinophils % (Manual) 0 % (0-3) Basophils % (Manual) 0 % (0-2) Band Neutrophils 0 % (0-8) Platelet Estimate Decreased L Platelet Morphology Normal Red Blood Cell Morphology Normal Erythrocyte Sedimentation Rate 31 MM/HR (0-20) H Sodium Level 141 MMOL/L (136-145) Potassium Level 3.0 MMOL/L (3.5-5.1) L Chloride Level 104 MMOL/L (98-107) Carbon Dioxide Level 29 MMOL/L (21-32) Anion Gap 8 mmol/L (5-15) Blood Urea Nitrogen 14 mg/dL (7-18) Creatinine 1.1 MG/DL (0.55-1.30) Estimat Glomerular Filtration Rate > 60 mL/min (>60) Glucose Level 124 MG/DL (74-106) H Calcium Level 7.6 MG/DL (8.5-10.1) L Phosphorus Level 2.0 MG/DL (2.5-4.9) L Magnesium Level 2.0 MG/DL (1.8-2.4) Total Bilirubin 0.5 MG/DL (0.2-1.0) Aspartate Amino Transf (AST/SGOT) 25 U/L (15-37) Alanine Aminotransferase (ALT/SGPT) 39 U/L (12-78) Alkaline Phosphatase 96 U/L (46-116) C-Reactive Protein, Quantitative 8.1 mg/dL (0.00-0.90) H Total Protein 5.7 G/DL (6.4-8.2) L Albumin 1.9 G/DL (3.4-5.0) L Globulin 3.8 g/dL Albumin/Globulin Ratio 0.5 (1.0-2.7) L Current Medications Medications (Trade) Dose Ordered Sig/Ricardo Route PRN Reason Start Time Stop Time Status Last Admin Dose Admin Acetaminophen (Tylenol) 650 mg Q4H PRN ORAL fever 01/24/19 20:00 02/23/19 19:59 Ascorbic Acid (Vitamin C) 250 mg TWICE A DAY ORAL 01/27/19 18:00 02/26/19 17:59 02/04/19 08:44 Chlorhexidine Gluconate (Roseanna-Hex 2%) 1 applic DAILY@2000 TOPIC 01/25/19 20:00 02/24/19 19:59 02/06/19 20:39 Dextrose (Dextrose 50%) 25 ml Q30M PRN IV Hypoglycemia 01/25/19 19:00 02/24/19 18:59 Dextrose (Dextrose 50%) 50 ml Q30M PRN IV Hypoglycemia 01/25/19 19:00 02/24/19 18:59 Dopamine HCl/ Dextrose 250 ml @ 0 mls/hr Q24H IV 02/06/19 06:00 03/08/19 05:59 02/07/19 06:06 Heparin Sodium (Porcine) (Heparin 5000 units/ml) 5,000 units EVERY 12 HOURS SUBQ 01/24/19 21:00 02/23/19 20:59 02/06/19 20:45 Hydrocortisone (Solu-CORTEF) 100 mg EVERY 8 HOURS IV 02/05/19 22:00 03/07/19 21:59 02/07/19 06:06 Insulin Aspart (NovoLOG) EVERY 6 HOURS SUBQ 01/26/19 00:00 02/25/19 00:00 02/07/19 00:16 Linezolid 300 ml @ 300 mls/hr Q12HR IVPB 01/31/19 09:00 02/09/19 23:59 02/07/19 09:57 Memantine (Namenda) 5 mg DAILY ORAL 02/04/19 09:00 03/06/19 08:59 02/04/19 08:43 Midodrine (Pro-Amatine) 10 mg THREE TIMES A DAY NG 02/04/19 18:00 03/01/19 12:59 Pantoprazole (Protonix) 40 mg DAILY IVP 01/25/19 09:00 02/24/19 08:59 02/07/19 09:56 Polyethylene Glycol (Miralax) 17 gm DAILYPRN PRN ORAL Constipation 01/24/19 20:00 02/23/19 19:59 02/01/19 05:47 Potassium Phosphate 30 mm/ Sodium Chloride 285 ml @ 47.5 mls/hr ONCE IV 02/07/19 12:00 02/07/19 18:00 Potassium Chloride (K-Dur) 40 meq TWICE A DAY NG 01/27/19 11:45 02/26/19 11:44 02/04/19 08:44 Quetiapine Fumarate (SEROqueL) 25 mg QHS ORAL 02/03/19 21:00 03/05/19 20:59 02/06/19 20:40 Sodium Chloride 1,000 ml @ 50 mls/hr Q20H IV 02/05/19 20:29 03/07/19 20:28 02/07/19 09:57 Theophylline (Saw-Dur) 100 mg EVERY 12 HOURS ORAL 02/03/19 13:15 03/05/19 13:14 02/07/19 09:56 Pili Lenz MD Feb 07, 2019 12:16
--- NOTE | 2019-02-07 12:39 | Surgery Progress Note ---
Surgery Progress Note Subjective Additional Comments no acute events improved no n/v/c/f comfortable labs improved exam stable dressing changes going well Objective Last 24 Hour Vital Signs Date Time Temp Pulse Resp B/P (MAP) Pulse Ox O2 Delivery O2 Flow Rate FiO2 02/07/19 12:00 Room Air 02/07/19 12:00 97.8 70 20 99/51 (67) 95 02/07/19 12:00 72 02/07/19 11:30 63 19 110/58 (75) 96 02/07/19 11:00 117/55 02/07/19 11:00 59 20 117/55 (75) 94 02/07/19 10:30 75 21 111/55 (73) 93 02/07/19 10:00 90 20 113/64 (80) 97 02/07/19 10:00 133/62 02/07/19 09:30 71 18 130/71 (90) 96 02/07/19 09:00 62 23 119/59 (79) 95 02/07/19 09:00 119/56 02/07/19 08:30 71 16 119/62 (81) 96 02/07/19 08:00 97.2 81 18 127/67 (87) 96 02/07/19 08:00 69 02/07/19 07:53 Room Air 02/07/19 07:30 75 22 118/55 (76) 96 02/07/19 07:00 60 22 115/59 (77) 94 02/07/19 07:00 115/59 02/07/19 06:30 64 16 112/54 (73) 95 02/07/19 06:06 116/56 02/07/19 06:00 60 20 116/56 (76) 94 02/07/19 06:00 112/54 02/07/19 05:30 62 31 98/50 (66) 96 02/07/19 05:00 108/56 02/07/19 05:00 57 42 118/54 (75) 95 02/07/19 04:30 81 26 94/77 (83) 92 02/07/19 04:00 Room Air 02/07/19 04:00 98.5 65 21 100/56 (71) 95 02/07/19 04:00 86/62 02/07/19 04:00 62 11/24/19 03:30 65 26 104/60 (75) 94 02/07/19 03:15 61 19 103/58 (73) 95 02/07/19 03:02 60 19 104/58 (73) 95 02/07/19 03:00 58 24 111/59 (76) 94 02/07/19 03:00 101/61 02/07/19 02:30 64 23 96/51 (66) 94 02/07/19 02:00 95/55 02/07/19 02:00 62 23 97/53 (68) 95 02/07/19 01:30 65 32 93/57 (69) 97 02/07/19 01:00 97/48 02/07/19 01:00 75 22 80/59 (66) 92 02/07/19 00:30 98.6 73 26 123/66 (85) 93 02/07/19 00:00 73 02/07/19 00:00 100/66 02/07/19 00:00 Room Air 02/07/19 00:00 65 20 123/62 (82) 95 02/06/19 23:30 65 28 108/47 (67) 93 02/06/19 23:00 66 18 104/62 (76) 94 02/06/19 23:00 104/52 02/06/19 22:30 61 16 104/60 (75) 95 02/06/19 22:00 96/54 02/06/19 22:00 98.4 76 24 108/53 (71) 93 02/06/19 21:30 62 18 106/54 (71) 94 02/06/19 21:00 107/55 02/06/19 21:00 65 22 95/56 (69) 94 02/06/19 20:30 61 17 115/49 (71) 96 02/06/19 20:00 61 17 115/52 (73) 97 02/06/19 20:00 61 02/06/19 20:00 96/60 02/06/19 20:00 Room Air 02/06/19 19:30 61 17 112/51 (71) 95 02/06/19 19:00 110/55 02/06/19 19:00 65 15 110/55 (73) 95 02/06/19 18:55 97 Room Air 21 02/06/19 18:30 66 16 110/56 (74) 96 11/23/19 18:00 62 18 118/56 (76) 96 02/06/19 18:00 118/56 02/06/19 17:30 59 16 112/56 (74) 96 02/06/19 17:00 54 16 118/54 (75) 96 02/06/19 17:00 120/56 02/06/19 16:30 57 20 111/52 (71) 95 02/06/19 16:00 Room Air 02/06/19 16:00 57 02/06/19 16:00 118/55 02/06/19 16:00 97.0 58 19 120/56 (77) 95 02/06/19 15:30 56 19 120/55 (76) 100 02/06/19 15:00 57 19 118/55 (76) 99 02/06/19 15:00 118/55 02/06/19 14:30 54 15 117/58 (77) 100 02/06/19 14:00 116/52 02/06/19 14:00 55 22 116/52 (73) 98 02/06/19 13:30 58 23 128/54 (78) 100 02/06/19 13:00 58 16 125/63 (83) 100 02/06/19 13:00 125/63 I&O Intake and Output 02/06/19 02/07/19 18:59 06:59 Intake Total 978.015 ml 948.012 ml Output Total 785 ml 870 ml Balance 193.015 ml 78.012 ml IV Total 948.015 ml 948.012 ml Other 30 ml Output Urine Total 785 ml 870 ml Dressing: saturated Wound: clean Cardiovascular: RSR Respiratory: clear, decreased breath sounds Abdomen: soft, present bowel sounds Extremities: no cyanosis, other Laboratory Tests Test 02/07/19 04:02 White Blood Count 9.5 K/UL (4.8-10.8) Red Blood Count 3.89 M/UL (4.70-6.10) L Hemoglobin 11.9 G/DL (14.2-18.0) L Hematocrit 35.5 % (42.0-52.0) L Mean Corpuscular Volume 91 FL (80-99) Mean Corpuscular Hemoglobin 30.5 PG (27.0-31.0) Mean Corpuscular Hemoglobin Concent 33.4 G/DL (32.0-36.0) Red Cell Distribution Width 13.7 % (11.6-14.8) Platelet Count 76 K/UL (150-450) L Mean Platelet Volume 6.4 FL (6.5-10.1) L Neutrophils (%) (Auto) % (45.0-75.0) Lymphocytes (%) (Auto) % (20.0-45.0) Monocytes (%) (Auto) % (1.0-10.0) Eosinophils (%) (Auto) % (0.0-3.0) Basophils (%) (Auto) % (0.0-2.0) Differential Total Cells Counted 100 Neutrophils % (Manual) 81 % (45-75) H Lymphocytes % (Manual) 14 % (20-45) L Monocytes % (Manual) 5 % (1-10) Eosinophils % (Manual) 0 % (0-3) Basophils % (Manual) 0 % (0-2) Band Neutrophils 0 % (0-8) Platelet Estimate Decreased L Platelet Morphology Normal Red Blood Cell Morphology Normal Erythrocyte Sedimentation Rate 31 MM/HR (0-20) H Sodium Level 141 MMOL/L (136-145) Potassium Level 3.0 MMOL/L (3.5-5.1) L Chloride Level 104 MMOL/L (98-107) Carbon Dioxide Level 29 MMOL/L (21-32) Anion Gap 8 mmol/L (5-15) Blood Urea Nitrogen 14 mg/dL (7-18) Creatinine 1.1 MG/DL (0.55-1.30) Estimat Glomerular Filtration Rate > 60 mL/min (>60) Glucose Level 124 MG/DL (74-106) H Calcium Level 7.6 MG/DL (8.5-10.1) L Phosphorus Level 2.0 MG/DL (2.5-4.9) L Magnesium Level 2.0 MG/DL (1.8-2.4) Total Bilirubin 0.5 MG/DL (0.2-1.0) Aspartate Amino Transf (AST/SGOT) 25 U/L (15-37) Alanine Aminotransferase (ALT/SGPT) 39 U/L (12-78) Alkaline Phosphatase 96 U/L (46-116) C-Reactive Protein, Quantitative 8.1 mg/dL (0.00-0.90) H Total Protein 5.7 G/DL (6.4-8.2) L Albumin 1.9 G/DL (3.4-5.0) L Globulin 3.8 g/dL Albumin/Globulin Ratio 0.5 (1.0-2.7) L Plan Problems: (1) Sepsis Assessment & Plan: afebrile, HD improving HR -noted cardiology input leukocytosis lactic acidosis resolved slowly improving -IV abx as per ID -trend labs -swallow eval not ready so wait until once more responsive plan for trial swallow again next week if cont to fail will discuss with team about peg as currently he is fairly alert discussed with GI. reviewed bioethics Neuro eval for dementia -will follow with recs thank you (2) Septic shock (3) Wound, open Assessment & Plan: Patient presented on admission with multiple pressure injuries being identified. Non-blanching erythema without induration noted to sacrum ,Right and Left buttocks. Scattered areas that are darker and maroon in color noted within base of wound. Scrotum is also erythematous. Unstageable pressure injury noted to Left heel. Base of wound is 100% necrotic but soft. Erythematous margins with surrounding non-blanching erythema.(L)3.2cm x (W)3cm. no drainage Right heel is boggy with non-blanching erythema.. Keloid scar noted distal R tibia. Partial thickness ulcer noted to dorsal R foot. Base of wound is moist and viable. Small amt serous exudate noted. Scattered small dry scabs noted to dorsal R foot. Tx.Plan: Swab Dorsal R foot and R heel with Betadine. Cover with Optifoam drsg. Change every 3 days and prn. Apply Moisture Barrier Paste to buttocks. Cover sacrum with Optifoam drsg. Change every 3 days and prn. Apply Cavilon Skin Barrier to L heel.Cover with Optifoam drsg. Change every 7 days and prn. APM/JELLY mattress. Reposition at least every 2hours or as tolerated. Off-load heels with pillow. Nutritional Optimization Will monitor while in critical condition DAILY ESTIMATED NEEDS: Needs based on Critical care, sepsis, wounds 69kg 22-30 kcals/kg 0643-1081 total kcals 1.25-2 g protein/kg 86-138 g total protein 25-30 mL/kg 9080-1775 total fluid mLs NUTRITION DIAGNOSIS: Increased kcal and pro needs r/t sepsis, wound healing, and underweight status as evidenced by pt w respiratory distress now intubated, critically elev WBC (*29.7), elev BG (200's), w/ multiple wounds (refer to eval), pt is @88% if Hecker Body Weight. CURRENT TF: Glucerna 1.2 @30ml ENTERAL NUTRITION RECOMMENDATIONS: VITAL AF 1.2 @60ml/hr x24 hrs to provide 1440ml, 1728 kcal, 108g pro, 1168ml free H2O - WITH HEMODYNAMIC STABILITY, rec TF change to VITAL 1.2 to better meet est needs. Start @20ml/hr for 6 hrs. Advance as tolerated 10ml/hr q4-6 hrs to goal. - Flush per . HOB over 30 degrees If pt remains on pressor support, rec trophic feeds of Vital 1.2 @5-10ml/hr to maintain gut integrity. ------ ADDITIONAL RECOMMENDATIONS: 1) Per SNF: HT 71 inches, 152 lbs (69.1kg) 2) Wound care: Add DANIELA in 4oz water BID via OGT + VIT C 250mg BID (f/up w/ WC specialist) 3) Monitor lytes daily, replete as needed 4) Daily calibrated bed scale Mauricio Jack Feb 07, 2019 12:39
--- NOTE | 2019-02-07 15:49 | Pulmonolgy Critical Care Note ---
Critical Care - Asmt/Plan Problems: (1) Acute respiratory failure (2) Septic shock (3) Systolic heart failure (4) Chronic kidney disease (5) Malignant neoplasm of right kidney (6) COPD (chronic obstructive pulmonary disease) (7) Schizophrenia Respiratory: monitor respiratory rate, adjust FIO2, CXR Cardiac: continue pressors, continue to monitor HR/BP Renal: F/U I&O, keep IV fluid Infectious Disease: check cultures Gastrointestinal: continue feedings/current rate Endocrine: monitor blood sugar Hematologic: monitor H/H, transfuse if hgb<8.5 Neurologic: keep patient comfortable Affect: PRN ativan Prophylaxis: Heparin Time Spent (Minutes): 30 Notes Reviewed: cardio, renal Critical Care - Objective Last 24 Hour Vital Signs Date Time Temp Pulse Resp B/P (MAP) Pulse Ox O2 Delivery O2 Flow Rate FiO2 02/07/19 15:00 66 20 129/65 (86) 92 02/07/19 14:00 63 21 122/62 (82) 95 02/07/19 13:00 65 16 110/70 (83) 95 02/07/19 12:00 Room Air 02/07/19 12:00 97.8 70 20 99/51 (67) 95 02/07/19 12:00 72 02/07/19 11:30 63 19 110/58 (75) 96 02/07/19 11:00 117/55 02/07/19 11:00 59 20 117/55 (75) 94 02/07/19 10:30 75 21 111/55 (73) 93 02/07/19 10:00 90 20 113/64 (80) 97 02/07/19 10:00 133/62 02/07/19 09:30 71 18 130/71 (90) 96 02/07/19 09:00 62 23 119/59 (79) 95 02/07/19 09:00 119/56 02/07/19 08:30 71 16 119/62 (81) 96 02/07/19 08:00 97.2 81 18 127/67 (87) 96 02/07/19 08:00 69 02/07/19 07:53 Room Air 02/07/19 07:30 75 22 118/55 (76) 96 02/07/19 07:00 60 22 115/59 (77) 94 02/07/19 07:00 115/59 02/07/19 06:30 64 16 112/54 (73) 95 02/07/19 06:06 116/56 02/07/19 06:00 60 20 116/56 (76) 94 02/07/19 06:00 112/54 02/07/19 05:30 62 31 98/50 (66) 96 02/07/19 05:00 108/56 02/07/19 05:00 57 42 118/54 (75) 95 02/07/19 04:30 81 26 94/77 (83) 92 02/07/19 04:00 Room Air 02/07/19 04:00 98.5 65 21 100/56 (71) 95 02/07/19 04:00 86/62 02/07/19 04:00 62 02/07/19 03:30 65 26 104/60 (75) 94 02/07/19 03:15 61 19 103/58 (73) 95 02/07/19 03:02 60 19 104/58 (73) 95 02/07/19 03:00 58 24 111/59 (76) 94 02/07/19 03:00 101/61 02/07/19 02:30 64 23 96/51 (66) 94 02/07/19 02:00 95/55 02/07/19 02:00 62 23 97/53 (68) 95 02/07/19 01:30 65 32 93/57 (69) 97 02/07/19 01:00 97/48 02/07/19 01:00 75 22 80/59 (66) 92 02/07/19 00:30 98.6 73 26 123/66 (85) 93 02/07/19 00:00 73 02/07/19 00:00 100/66 02/07/19 00:00 Room Air 02/07/19 00:00 65 20 123/62 (82) 95 02/06/19 23:30 65 28 108/47 (67) 93 02/06/19 23:00 66 18 104/62 (76) 94 02/06/19 23:00 104/52 02/06/19 22:30 61 16 104/60 (75) 95 02/06/19 22:00 96/54 02/06/19 22:00 98.4 76 24 108/53 (71) 93 02/06/19 21:30 62 18 106/54 (71) 94 02/06/19 21:00 107/55 02/06/19 21:00 65 22 95/56 (69) 94 02/06/19 20:30 61 17 115/49 (71) 96 02/06/19 20:00 61 17 115/52 (73) 97 02/06/19 20:00 61 02/06/19 20:00 96/60 02/06/19 20:00 Room Air 02/06/19 19:30 61 17 112/51 (71) 95 02/06/19 19:00 110/55 02/06/19 19:00 65 15 110/55 (73) 95 02/06/19 18:55 97 Room Air 21 02/06/19 18:30 66 16 110/56 (74) 96 02/06/19 18:00 62 18 118/56 (76) 96 02/06/19 18:00 118/56 02/06/19 17:30 59 16 112/56 (74) 96 02/06/19 17:00 54 16 118/54 (75) 96 02/06/19 17:00 120/56 02/06/19 16:30 57 20 111/52 (71) 95 02/06/19 16:00 Room Air 02/06/19 16:00 57 02/06/19 16:00 118/55 02/06/19 16:00 97.0 58 19 120/56 (77) 95 Status: awake Condition: critical, improving HEENT: atraumatic Heart: HR/BP stable Abdomen: non-tender, feeding tube Accucheck: 165 Critical Care - Subjective ROS Limited/Unobtainable: Yes Condition: critical FI02: 21 Vent Support Breath Rate: 20 Vent Support Mode: CPAP Vent Tidal Volume: 500 Sputum Amount: Small PEEP: 5.0 PIP: 13 I&O: Intake and Output 02/06/19 02/07/19 19:00 07:00 Intake Total 978.015 ml 948.012 ml Output Total 770 ml 895 ml Balance 208.015 ml 53.012 ml IV Total 948.015 ml 948.012 ml Other 30 ml Output Urine Total 770 ml 895 ml ET-Tube: 7.5 ET Position: 26 Labs: Laboratory Tests Test 11/24/19 04:02 White Blood Count 9.5 K/UL (4.8-10.8) Red Blood Count 3.89 M/UL (4.70-6.10) L Hemoglobin 11.9 G/DL (14.2-18.0) L Hematocrit 35.5 % (42.0-52.0) L Mean Corpuscular Volume 91 FL (80-99) Mean Corpuscular Hemoglobin 30.5 PG (27.0-31.0) Mean Corpuscular Hemoglobin Concent 33.4 G/DL (32.0-36.0) Red Cell Distribution Width 13.7 % (11.6-14.8) Platelet Count 76 K/UL (150-450) L Mean Platelet Volume 6.4 FL (6.5-10.1) L Neutrophils (%) (Auto) % (45.0-75.0) Lymphocytes (%) (Auto) % (20.0-45.0) Monocytes (%) (Auto) % (1.0-10.0) Eosinophils (%) (Auto) % (0.0-3.0) Basophils (%) (Auto) % (0.0-2.0) Differential Total Cells Counted 100 Neutrophils % (Manual) 81 % (45-75) H Lymphocytes % (Manual) 14 % (20-45) L Monocytes % (Manual) 5 % (1-10) Eosinophils % (Manual) 0 % (0-3) Basophils % (Manual) 0 % (0-2) Band Neutrophils 0 % (0-8) Platelet Estimate Decreased L Platelet Morphology Normal Red Blood Cell Morphology Normal Erythrocyte Sedimentation Rate 31 MM/HR (0-20) H Sodium Level 141 MMOL/L (136-145) Potassium Level 3.0 MMOL/L (3.5-5.1) L Chloride Level 104 MMOL/L (98-107) Carbon Dioxide Level 29 MMOL/L (21-32) Anion Gap 8 mmol/L (5-15) Blood Urea Nitrogen 14 mg/dL (7-18) Creatinine 1.1 MG/DL (0.55-1.30) Estimat Glomerular Filtration Rate > 60 mL/min (>60) Glucose Level 124 MG/DL (74-106) H Calcium Level 7.6 MG/DL (8.5-10.1) L Phosphorus Level 2.0 MG/DL (2.5-4.9) L Magnesium Level 2.0 MG/DL (1.8-2.4) Total Bilirubin 0.5 MG/DL (0.2-1.0) Aspartate Amino Transf (AST/SGOT) 25 U/L (15-37) Alanine Aminotransferase (ALT/SGPT) 39 U/L (12-78) Alkaline Phosphatase 96 U/L (46-116) C-Reactive Protein, Quantitative 8.1 mg/dL (0.00-0.90) H Total Protein 5.7 G/DL (6.4-8.2) L Albumin 1.9 G/DL (3.4-5.0) L Globulin 3.8 g/dL Albumin/Globulin Ratio 0.5 (1.0-2.7) L Ron Anthony MD Feb 07, 2019 15:48
[2019-02-07] MEDS ORDERED: Heparin1,000 units/500ml Premix(Conc:2 units/ml) IV PRN (18:45)
[2019-02-07] MEDS ORDERED: Lidocaine 1% Plain 30 ml INJ PRN (18:45)
--- NOTE | 2019-02-07 19:26 | NUR ---
HAND-OFF: Report given to EUGENIA Go.
--- NOTE | 2019-02-07 20:00 | NUR ---
NURSE NOTES: received pt report chris awake and alert but confuse follows simple command o2 sat 96 0/o on ra on dopa drip at 1.717 mcg/kg /min unable to titrate due hr <50 at interval reposition on acute resp distress noted
[2019-02-07] MEDS: Dyna-Hex 2% Top Sol 2oz TOPIC SCH (20:24)
--- NOTE | 2019-02-07 22:00 | NUR ---
NURSE NOTES: asleep on acute distress noted
[2019-02-08] VITALS (42 sets, daily range): BP systolic 95–148; BP diastolic 48–87
--- NOTE | 2019-02-08 | NUR ---
NURSE NOTES: bs 150 insulin coverage given as order
[2019-02-08] MEDS: NovoLOG Insulin Flexpen SUBQ SCH ×4 (00:21→17:32)
--- NOTE | 2019-02-08 02:50 | NUR ---
NURSE NOTES: asleep no acute resp distress note
--- NOTE | 2019-02-08 04:00 | NUR ---
NURSE NOTES: complete bed bath reposition
[2019-02-08] MEDS: DOPamine 400mg/250ml 250 ML IV SCH (05:38)
[2019-02-08] MEDS: Hydrocortisone 100mg Inj IV SCH ×3 (05:38→22:10)
--- NOTE | 2019-02-08 06:00 | NUR ---
NURSE NOTES: pt refuse lab work done bs 110 no coverage
--- NOTE | 2019-02-08 07:38 | NUR ---
HAND-OFF: Report given to divine fox using. s bar
--- NOTE | 2019-02-08 07:39 | NUR ---
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 Upper extremities cool to touch, bilateral lower extremities elevated on pillows, remains on P200 mattress; mcmahon intact and draining. Will continue with plan of care for PT.
[2019-02-08 08:22] LABS: HEMATOCRIT 37.3 % (42.0-52.0); HEMOGLOBIN 12.6 G/DL (14.2-18.0); MEAN CORPUSCULAR VOLUME 90 FL (80-99); PLATELET COUNT 86 K/UL (150-450); RED BLOOD COUNT 4.15 M/UL (4.70-6.10); RED CELL DISTRIBUTION WIDTH 13.9 % (11.6-14.8); WHITE BLOOD COUNT 11.7 K/UL (4.8-10.8)
[2019-02-08 08:43] LABS: PHOSPHORUS 2.5 MG/DL (2.5-4.9)
[2019-02-08 08:51] LABS: ALANINE AMINOTRANSFERASE 44 U/L (12-78); ALBUMIN/GLOBULIN RATIO 0.6 (1.0-2.7); ALKALINE PHOSPHATASE 92 U/L (46-116); ANION GAP -1 mmol/L (5-15); ASPARTATE AMINO TRANSFERASE 29 U/L (15-37); BILIRUBIN,TOTAL 0.5 MG/DL (0.2-1.0); BLOOD UREA NITROGEN 12 mg/dL (7-18); CALCIUM 7.1 MG/DL (8.5-10.1); CARBON DIOXIDE 35 MMOL/L (21-32); CHLORIDE 105 MMOL/L (98-107); CREATININE 1.1 MG/DL (0.55-1.30); SODIUM 139 MMOL/L (136-145)
[2019-02-08] MEDS: Heparin 5000 units/ml inj SUBQ SCH ×2 (08:54→20:51)
--- NOTE | 2019-02-08 08:56 | NUR ---
NURSE NOTES: Heparin 5000u not given, morning labs shows PT platelet @ 86. CN Anay made aware.
[2019-02-08 09:01] LABS: POTASSIUM 2.7 MMOL/L (3.5-5.1)
[2019-02-08] MEDS: Theophylline ER 100mg ORAL SCH ×2 (09:02→20:50)
[2019-02-08] MEDS: Memantine 5 MG TAB ORAL SCH (09:02)
[2019-02-08] MEDS: Midodrine 10mg tab NG SCH ×3 (09:02→17:32)
[2019-02-08] MEDS: Ascorbic Acid 500mg tab ORAL SCH ×2 (09:02→17:51)
[2019-02-08] MEDS: Pantoprazole Inj IVP SCH (09:03)
--- NOTE | 2019-02-08 09:34 | NUR ---
NURSE NOTES: Morning meds given, PT is A/O x 2, able to recall that PT was in [employer], able to recall ID number, full name. Morning meds given, no difficulty swallowing noted, no coughing. PT was combative attempting assault, reorientation given, de-escalated, JD Cueva made aware.
--- NOTE | 2019-02-08 09:49 | Pulmonolgy Critical Care Note ---
Critical Care - Asmt/Plan Problems: (1) Acute respiratory failure (2) Septic shock (3) Systolic heart failure (4) Chronic kidney disease (5) Malignant neoplasm of right kidney (6) COPD (chronic obstructive pulmonary disease) (7) Schizophrenia Respiratory: monitor respiratory rate, adjust FIO2, CXR Cardiac: continue pressors, continue to monitor HR/BP Renal: F/U I&O, keep IV fluid Infectious Disease: check cultures Gastrointestinal: continue feedings/current rate Endocrine: monitor blood sugar, continue sliding scale insulin Hematologic: monitor H/H Neurologic: PRN Ativan Affect: PRN ativan Notes 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, 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 Discussed with: nurses, consultants, 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 - Objective Last 24 Hour Vital Signs Date Time Temp Pulse Resp B/P (MAP) Pulse Ox O2 Delivery O2 Flow Rate FiO2 02/08/19 09:00 69 14 114/61 (78) 87 02/08/19 08:30 64 32 122/56 (78) 02/08/19 08:00 117/58 02/08/19 08:00 Room Air 02/08/19 08:00 57 18 114/50 (71) 02/08/19 07:30 65 23 126/66 (86) 02/08/19 07:00 129/64 02/08/19 07:00 98.3 65 19 122/66 (84) 02/08/19 06:00 110/5 02/08/19 06:00 70 19 103/54 (70) 02/08/19 05:38 114/56 02/08/19 05:30 101 22 114/56 (75) 95 02/08/19 05:00 110/56 02/08/19 05:00 61 20 148/63 (91) 95 02/08/19 04:30 98.6 64 23 121/53 (75) 95 02/08/19 04:00 67 27 120/61 (80) 95 02/08/19 04:00 63 02/08/19 04:00 Room Air 02/08/19 04:00 100/50 02/08/19 03:30 64 19 109/57 (74) 95 02/08/19 03:00 110/50 02/08/19 03:00 70 20 120/55 (76) 02/08/19 02:30 60 22 110/52 (71) 02/08/19 02:00 55 22 117/52 (73) 96 02/08/19 02:00 112/55 02/08/19 02:00 55 22 117/52 (73) 95 02/08/19 01:30 61 26 99/62 (74) 95 02/08/19 01:00 100/53 02/08/19 01:00 58 25 120/57 (78) 95 02/08/19 00:30 69 35 116/62 (80) 95 02/08/19 00:00 70 02/08/19 00:00 Room Air 02/08/19 00:00 113/65 02/08/19 00:00 98.0 61 22 113/65 (81) 95 02/07/19 23:30 58 34 134/66 (88) 95 02/07/19 23:00 62 19 133/65 (87) 94 02/07/19 23:00 110/54 02/07/19 22:00 60 15 118/73 (88) 93 02/07/19 22:00 105/71 02/07/19 21:30 62 20 150/71 (97) 92 02/07/19 21:00 128/77 02/07/19 21:00 61 17 129/59 (82) 96 02/07/19 20:30 80 19 89/56 (67) 94 02/07/19 20:00 65 02/07/19 20:00 Room Air 02/07/19 20:00 105/58 02/07/19 20:00 98.6 54 23 105/58 (74) 95 02/07/19 19:30 66 21 119/57 (77) 94 02/07/19 19:00 78 18 115/55 (75) 93 02/07/19 19:00 111/57 02/07/19 18:40 96 Room Air 21 02/07/19 18:30 64 16 103/70 (81) 92 02/07/19 18:00 60 16 116/45 (68) 94 02/07/19 17:30 92 20 109/56 (73) 93 02/07/19 17:00 69 20 127/57 (80) 93 02/07/19 16:30 70 18 127/57 (80) 93 02/07/19 16:00 Room Air 02/07/19 16:00 68 19 125/51 (75) 93 02/07/19 16:00 65 02/07/19 15:30 97.6 63 18 114/58 (76) 93 02/07/19 15:00 66 20 129/65 (86) 92 02/07/19 14:30 60 18 128/56 (80) 93 02/07/19 14:00 63 21 122/62 (82) 95 02/07/19 13:30 64 21 110/63 (79) 96 02/07/19 13:00 65 16 110/70 (83) 95 02/07/19 12:00 Room Air 02/07/19 12:00 97.8 70 20 99/51 (67) 95 02/07/19 12:00 72 02/07/19 11:30 63 19 110/58 (75) 96 02/07/19 11:00 117/55 02/07/19 11:00 59 20 117/55 (75) 94 02/07/19 10:30 75 21 111/55 (73) 93 02/07/19 10:00 90 20 113/64 (80) 97 02/07/19 10:00 133/62 Status: awake Condition: critical HEENT: atraumatic Neck: full ROM Lungs: clear, chest wall tender Heart: HR/BP stable Abdomen: soft, non-tender Extremities: no C/C/E Decubiti: location Accucheck: 110 Critical Care - Subjective ROS Limited/Unobtainable: Yes ICU Day: 15 Interval Events: still needs Dopamin drip FI02: 21 Vent Support Breath Rate: 20 Vent Support Mode: CPAP Vent Tidal Volume: 500 Sputum Amount: Small PEEP: 5.0 PIP: 13 Fluids: NS 50 cc/hour Drips: Dopamin 1.1 ugm I&O: Intake and Output 02/07/19 02/08/19 18:59 06:59 Intake Total 610.005 ml 4949.012 ml Output Total 905 ml 1270 ml Balance -294.995 ml 3679.012 ml IV Total 570.005 ml 4949.012 ml Other 40 ml Output Urine Total 905 ml 1270 ml CXR: pending ET-Tube: 7.5 ET Position: 26 Labs: Laboratory Tests Test 02/08/19 07:35 White Blood Count 11.7 K/UL (4.8-10.8) H Red Blood Count 4.15 M/UL (4.70-6.10) L Hemoglobin 12.6 G/DL (14.2-18.0) L Hematocrit 37.3 % (42.0-52.0) L Mean Corpuscular Volume 90 FL (80-99) Mean Corpuscular Hemoglobin 30.4 PG (27.0-31.0) Mean Corpuscular Hemoglobin Concent 33.8 G/DL (32.0-36.0) Red Cell Distribution Width 13.9 % (11.6-14.8) Platelet Count 86 K/UL (150-450) L Mean Platelet Volume 6.6 FL (6.5-10.1) Neutrophils (%) (Auto) % (45.0-75.0) Lymphocytes (%) (Auto) % (20.0-45.0) Monocytes (%) (Auto) % (1.0-10.0) Eosinophils (%) (Auto) % (0.0-3.0) Basophils (%) (Auto) % (0.0-2.0) Neutrophils % (Manual) Pending Lymphocytes % (Manual) Pending Platelet Estimate Pending Platelet Morphology Pending Erythrocyte Sedimentation Rate Pending Sodium Level 139 MMOL/L (136-145) Potassium Level 2.7 MMOL/L (3.5-5.1) *L Chloride Level 105 MMOL/L (98-107) Carbon Dioxide Level 35 MMOL/L (21-32) H Anion Gap -1 mmol/L (5-15) L Blood Urea Nitrogen 12 mg/dL (7-18) Creatinine 1.1 MG/DL (0.55-1.30) Estimat Glomerular Filtration Rate > 60 mL/min (>60) Glucose Level 129 MG/DL (74-106) H Calcium Level 7.1 MG/DL (8.5-10.1) L Phosphorus Level 2.5 MG/DL (2.5-4.9) Magnesium Level 1.7 MG/DL (1.8-2.4) L Total Bilirubin 0.5 MG/DL (0.2-1.0) Aspartate Amino Transf (AST/SGOT) 29 U/L (15-37) Alanine Aminotransferase (ALT/SGPT) 44 U/L (12-78) Alkaline Phosphatase 92 U/L (46-116) C-Reactive Protein, Quantitative 4.5 mg/dL (0.00-0.90) H Total Protein 5.4 G/DL (6.4-8.2) L Albumin 2.0 G/DL (3.4-5.0) L Globulin 3.4 g/dL Albumin/Globulin Ratio 0.6 (1.0-2.7) L Ron Anthony MD Feb 08, 2019 09:49
--- NOTE | 2019-02-08 09:53 | General Progress Note ---
Assessment/Plan Problem List: (1) Renal failure (ARF), acute on chronic ICD Codes: N17.9 - Acute kidney failure, unspecified; N18.9 - Chronic kidney disease, unspecified SNOMED: 242755560 (2) Sepsis ICD Codes: A41.9 - Sepsis, unspecified organism SNOMED: 45383484 Qualifiers: Qualified Codes: A41.9 - Sepsis, unspecified organism (3) Malignant neoplasm of right kidney ICD Codes: C64.1 - Malignant neoplasm of right kidney, except renal pelvis SNOMED: 094169620 (4) Acute respiratory failure ICD Codes: J96.00 - Acute respiratory failure, unspecified whether with hypoxia or hypercapnia SNOMED: 52848486 (5) PVD (peripheral vascular disease) ICD Codes: I73.9 - Peripheral vascular disease, unspecified SNOMED: 572529519 Status: stable, progressing, unchanged Assessment/Plan: vent abx wound care cbc bmp am ltach Subjective Allergies: Coded Allergies: No Known Allergies (Unverified , 01/24/19) All Systems: reviewed and negative except above Subjective sleepy in icu Objective Last 24 Hour Vital Signs Date Time Temp Pulse Resp B/P (MAP) Pulse Ox O2 Delivery O2 Flow Rate FiO2 02/08/19 09:00 69 14 114/61 (78) 87 02/08/19 08:30 64 32 122/56 (78) 02/08/19 08:00 117/58 02/08/19 08:00 Room Air 02/08/19 08:00 54 02/08/19 08:00 57 18 114/50 (71) 02/08/19 07:30 65 23 126/66 (86) 02/08/19 07:00 129/64 02/08/19 07:00 98.3 65 19 122/66 (84) 02/08/19 06:00 110/5 02/08/19 06:00 70 19 103/54 (70) 02/08/19 05:38 114/56 02/08/19 05:30 101 22 114/56 (75) 95 02/08/19 05:00 110/56 02/08/19 05:00 61 20 148/63 (91) 95 02/08/19 04:30 98.6 64 23 121/53 (75) 95 02/08/19 04:00 67 27 120/61 (80) 95 02/08/19 04:00 63 02/08/19 04:00 Room Air 02/08/19 04:00 100/50 02/08/19 03:30 64 19 109/57 (74) 95 02/08/19 03:00 110/50 02/08/19 03:00 70 20 120/55 (76) 95 02/08/19 02:30 60 22 110/52 (71) 95 02/08/19 02:00 55 22 117/52 (73) 96 02/08/19 02:00 112/55 02/08/19 02:00 55 22 117/52 (73) 95 02/08/19 01:30 61 26 99/62 (74) 95 02/08/19 01:00 100/53 02/08/19 01:00 58 25 120/57 (78) 95 02/08/19 00:30 69 35 116/62 (80) 95 02/08/19 00:00 70 02/08/19 00:00 Room Air 02/08/19 00:00 113/65 02/08/19 00:00 98.0 61 22 113/65 (81) 95 02/07/19 23:30 58 34 134/66 (88) 95 02/07/19 23:00 62 19 133/65 (87) 94 02/07/19 23:00 110/54 02/07/19 22:00 60 15 118/73 (88) 93 02/07/19 22:00 105/71 02/07/19 21:30 62 20 150/71 (97) 92 02/07/19 21:00 128/77 02/07/19 21:00 61 17 129/59 (82) 96 02/07/19 20:30 80 19 89/56 (67) 94 02/07/19 20:00 65 02/07/19 20:00 Room Air 02/07/19 20:00 105/58 02/07/19 20:00 98.6 54 23 105/58 (74) 95 02/07/19 19:30 66 21 119/57 (77) 94 02/07/19 19:00 78 18 115/55 (75) 93 02/07/19 19:00 111/57 02/07/19 18:40 96 Room Air 21 02/07/19 18:30 64 16 103/70 (81) 92 02/07/19 18:00 60 16 116/45 (68) 94 02/07/19 17:30 92 20 109/56 (73) 93 02/07/19 17:00 69 20 127/57 (80) 93 02/07/19 16:30 70 18 127/57 (80) 93 02/07/19 16:00 Room Air 02/07/19 16:00 68 19 125/51 (75) 93 02/07/19 16:00 65 02/07/19 15:30 97.6 63 18 114/58 (76) 93 02/07/19 15:00 66 20 129/65 (86) 92 02/07/19 14:30 60 18 128/56 (80) 93 02/07/19 14:00 63 21 122/62 (82) 95 02/07/19 13:30 64 21 110/63 (79) 96 02/07/19 13:00 65 16 110/70 (83) 95 02/07/19 12:00 Room Air 02/07/19 12:00 97.8 70 20 99/51 (67) 95 02/07/19 12:00 72 02/07/19 11:30 63 19 110/58 (75) 96 02/07/19 11:00 117/55 02/07/19 11:00 59 20 117/55 (75) 94 02/07/19 10:30 75 21 111/55 (73) 93 02/07/19 10:00 90 20 113/64 (80) 97 02/07/19 10:00 133/62 Intake and Output 02/07/19 02/08/19 18:59 06:59 Intake Total 610.005 ml 4949.012 ml Output Total 905 ml 1270 ml Balance -294.995 ml 3679.012 ml IV Total 570.005 ml 4949.012 ml Other 40 ml Output Urine Total 905 ml 1270 ml Laboratory Tests 02/08/19 07:35: White Blood Count 11.7H, Red Blood Count 4.15L, Hemoglobin 12.6L, Hematocrit 37.3L, Mean Corpuscular Volume 90, Mean Corpuscular Hemoglobin 30.4, Mean Corpuscular Hemoglobin Concent 33.8, Red Cell Distribution Width 13.9, Platelet Count 86L, Mean Platelet Volume 6.6, Neutrophils (%) (Auto) , Lymphocytes (%) ( Auto) , Monocytes (%) (Auto) , Eosinophils (%) (Auto) , Basophils (%) (Auto) , Neutrophils % (Manual) [Pending], Lymphocytes % (Manual) [Pending], Platelet Estimate [Pending], Platelet Morphology [Pending], Erythrocyte Sedimentation Rate [Pending], Sodium Level 139, Potassium Level 2.7*L, Chloride Level 105, Carbon Dioxide Level 35H, Anion Gap -1L, Blood Urea Nitrogen 12, Creatinine 1.1 , Estimat Glomerular Filtration Rate > 60, Glucose Level 129H, Calcium Level 7.1L, Phosphorus Level 2.5, Magnesium Level 1.7L, Total Bilirubin 0.5, Aspartate Amino Transf (AST/SGOT) 29, Alanine Aminotransferase (ALT/SGPT) 44, Alkaline Phosphatase 92, C-Reactive Protein, Quantitative 4.5H, Total Protein 5.4L, Albumin 2.0L, Globulin 3.4, Albumin/Globulin Ratio 0.6L Height (Feet): 5 Height (Inches): 7.00 Weight (Pounds): 110 General Appearance: lethargic EENT: normal ENT inspection Neck: normal alignment Cardiovascular: normal peripheral pulses, normal rate, regular rhythm Respiratory/Chest: chest wall non-tender, lungs clear, normal breath sounds Abdomen: normal bowel sounds, non tender, soft Extremities: normal inspection Edema: no edema noted Arm (L), no edema noted Arm (R), no edema noted Leg (L), no edema noted Leg (R), no edema noted Pedal (L), no edema noted Pedal (R), no edema noted Generalized Neurologic: motor weakness Skin: normal pigmentation, warm/dry Corey Short DO Feb 08, 2019 09:53
--- NOTE | 2019-02-08 09:56 | General Progress Note ---
Assessment/Plan Problem List: (1) DM (diabetes mellitus) ICD Codes: E11.9 - Type 2 diabetes mellitus without complications SNOMED: 81012061 (2) cardiomyopathy with EF of 35% (3) Encounter for PEG (percutaneous endoscopic gastrostomy) ICD Codes: Z43.1 - Encounter for attention to gastrostomy SNOMED: 181224695, 709427291 (4) Dysphagia ICD Codes: R13.10 - Dysphagia, unspecified SNOMED: 03849275, 439993867 (5) Bradyarrhythmia ICD Codes: I49.8 - Other specified cardiac arrhythmias SNOMED: 772414716 (6) Systolic heart failure ICD Codes: I50.20 - Unspecified systolic (congestive) heart failure SNOMED: 859346077 (7) Schizophrenia ICD Codes: F20.9 - Schizophrenia, unspecified SNOMED: 43696872 (8) COPD (chronic obstructive pulmonary disease) ICD Codes: J44.9 - Chronic obstructive pulmonary disease, unspecified SNOMED: 62181159 Qualifiers: Qualified Codes: J44.9 - Chronic obstructive pulmonary disease, unspecified Status: stable, progressing, unchanged Assessment/Plan: failed swallow eval needs peg Bioethic consult recommended against peg if dementia is severe recommend neurology consult>> pending for today attempt to place NGT failed plan PEG for tomorrow if consented Subjective ROS Limited/Unobtainable: No Allergies: Coded Allergies: No Known Allergies (Unverified , 01/24/19) Objective Last 24 Hour Vital Signs Date Time Temp Pulse Resp B/P (MAP) Pulse Ox O2 Delivery O2 Flow Rate FiO2 02/08/19 09:00 69 14 114/61 (78) 87 02/08/19 08:30 64 32 122/56 (78) 02/08/19 08:00 117/58 02/08/19 08:00 Room Air 02/08/19 08:00 54 02/08/19 08:00 57 18 114/50 (71) 02/08/19 07:30 65 23 126/66 (86) 02/08/19 07:00 129/64 02/08/19 07:00 98.3 65 19 122/66 (84) 02/08/19 06:00 110/5 02/08/19 06:00 70 19 103/54 (70) 02/08/19 05:38 114/56 02/08/19 05:30 101 22 114/56 (75) 95 02/08/19 05:00 110/56 02/08/19 05:00 61 20 148/63 (91) 95 02/08/19 04:30 98.6 64 23 121/53 (75) 95 02/08/19 04:00 67 27 120/61 (80) 95 02/08/19 04:00 63 02/08/19 04:00 Room Air 02/08/19 04:00 100/50 02/08/19 03:30 64 19 109/57 (74) 95 02/08/19 03:00 110/50 02/08/19 03:00 70 20 120/55 (76) 95 02/08/19 02:30 60 22 110/52 (71) 95 02/08/19 02:00 55 22 117/52 (73) 96 02/08/19 02:00 112/55 02/08/19 02:00 55 22 117/52 (73) 95 02/08/19 01:30 61 26 99/62 (74) 95 02/08/19 01:00 100/53 02/08/19 01:00 58 25 120/57 (78) 95 02/08/19 00:30 69 35 116/62 (80) 95 02/08/19 00:00 70 02/08/19 00:00 Room Air 02/08/19 00:00 113/65 02/08/19 00:00 98.0 61 22 113/65 (81) 95 02/07/19 23:30 58 34 134/66 (88) 95 02/07/19 23:00 62 19 133/65 (87) 94 02/07/19 23:00 110/54 02/07/19 22:00 60 15 118/73 (88) 93 02/07/19 22:00 105/71 02/07/19 21:30 62 20 150/71 (97) 92 02/07/19 21:00 128/77 02/07/19 21:00 61 17 129/59 (82) 96 02/07/19 20:30 80 19 89/56 (67) 94 02/07/19 20:00 65 02/07/19 20:00 Room Air 02/07/19 20:00 105/58 02/07/19 20:00 98.6 54 23 105/58 (74) 95 02/07/19 19:30 66 21 119/57 (77) 94 02/07/19 19:00 78 18 115/55 (75) 93 02/07/19 19:00 111/57 02/07/19 18:40 96 Room Air 21 02/07/19 18:30 64 16 103/70 (81) 92 02/07/19 18:00 60 16 116/45 (68) 94 02/07/19 17:30 92 20 109/56 (73) 93 02/07/19 17:00 69 20 127/57 (80) 93 02/07/19 16:30 70 18 127/57 (80) 93 02/07/19 16:00 Room Air 02/07/19 16:00 68 19 125/51 (75) 93 02/07/19 16:00 65 02/07/19 15:30 97.6 63 18 114/58 (76) 93 02/07/19 15:00 66 20 129/65 (86) 92 02/07/19 14:30 60 18 128/56 (80) 93 02/07/19 14:00 63 21 122/62 (82) 95 02/07/19 13:30 64 21 110/63 (79) 96 02/07/19 13:00 65 16 110/70 (83) 95 02/07/19 12:00 Room Air 02/07/19 12:00 97.8 70 20 99/51 (67) 95 02/07/19 12:00 72 02/07/19 11:30 63 19 110/58 (75) 96 02/07/19 11:00 117/55 02/07/19 11:00 59 20 117/55 (75) 94 02/07/19 10:30 75 21 111/55 (73) 93 02/07/19 10:00 90 20 113/64 (80) 97 02/07/19 10:00 133/62 Intake and Output 02/07/19 02/08/19 18:59 06:59 Intake Total 610.005 ml 4949.012 ml Output Total 905 ml 1270 ml Balance -294.995 ml 3679.012 ml IV Total 570.005 ml 4949.012 ml Other 40 ml Output Urine Total 905 ml 1270 ml Laboratory Tests 02/08/19 07:35: White Blood Count 11.7H, Red Blood Count 4.15L, Hemoglobin 12.6L, Hematocrit 37.3L, Mean Corpuscular Volume 90, Mean Corpuscular Hemoglobin 30.4, Mean Corpuscular Hemoglobin Concent 33.8, Red Cell Distribution Width 13.9, Platelet Count 86L, Mean Platelet Volume 6.6, Neutrophils (%) (Auto) , Lymphocytes (%) ( Auto) , Monocytes (%) (Auto) , Eosinophils (%) (Auto) , Basophils (%) (Auto) , Neutrophils % (Manual) [Pending], Lymphocytes % (Manual) [Pending], Platelet Estimate [Pending], Platelet Morphology [Pending], Erythrocyte Sedimentation Rate [Pending], Sodium Level 139, Potassium Level 2.7*L, Chloride Level 105, Carbon Dioxide Level 35H, Anion Gap -1L, Blood Urea Nitrogen 12, Creatinine 1.1 , Estimat Glomerular Filtration Rate > 60, Glucose Level 129H, Calcium Level 7.1L, Phosphorus Level 2.5, Magnesium Level 1.7L, Total Bilirubin 0.5, Aspartate Amino Transf (AST/SGOT) 29, Alanine Aminotransferase (ALT/SGPT) 44, Alkaline Phosphatase 92, C-Reactive Protein, Quantitative 4.5H, Total Protein 5.4L, Albumin 2.0L, Globulin 3.4, Albumin/Globulin Ratio 0.6L Height (Feet): 5 Height (Inches): 7.00 Weight (Pounds): 110 General Appearance: no apparent distress EENT: normal ENT inspection Neck: normal alignment Cardiovascular: normal rate Respiratory/Chest: decreased breath sounds Abdomen: normal bowel sounds, non tender, soft Extremities: non-tender Leonel Valderrama MD Feb 08, 2019 09:56
--- NOTE | 2019-02-08 10:36 | Infectious Diseases Prog Note ---
Assessment/Plan Assessment/Plan 68yo gentleman with PMH below presents with fever(100.1 is highest recorded in transfer packet) and worsened congestion from SNF. In the ED, pt was placed on oxygen then BiPAP but ultimately intubated. ID consulted for antimicrobial recommendation. Tmax 100.1 at custodial, SP Leukocytosis, hydrocortisone 01/25-02/02 Lactic acidosis, SP Shock, was on levophed, titrated off, but now on dopamine Likely MRSA PNA COPD? CHF? thick secretions per nurse flu swab negative 01/24 CXR: Extensive opacities within upper lobes demonstrated. In addition there is generalized interstitial densities throughout both lung craig. 01/25 CXR: Bilateral infiltrates appear fairly extensive but unchanged. TTE with EF 30-35% 01/25 sputum cx: MRSA 01/25 urine legionella ag: P 01/27 CXR: Extensive infiltrates bilaterally. Some degree of a superimposed interstitial edema has improved since the last exam. Endotracheal tube and NG tube remain in satisfactory in position. 01/28 CXR: Extensive bilateral infiltrates are again demonstrated without change. Tubes and lines are stable. 01/28 sputum cx: MRSA 01/30 CXR: 1. Overall similar patchy opacities in the lungs, most prominently in the right upper lung and right mid and lower lung. Probable small bilateral pleural effusions. 2. Endotracheal tube terminates in the region of the lower thoracic aorta above the cristina. Enteric tube courses past the diaphragm and out of the [id number], but the sidehole is seen near the GE junction. 02/02 CXR: Interim removal of previously demonstrated nasogastric tube and endotracheal tube. Right arm PICC remains. Bilateral fairly extensive interstitial opacities persist, unchanged. There is a small left pleural effusion again demonstrated 02/04 CXR: Patchy interstitial prominence demonstrated bilaterally. Heart size is stable. Possible UTI? new mcmahon placed in ED 01/25 UA 15-20 WBC 01/25 Ucx: NG Renal US: Nonobstructive stones in the left kidney demonstrated. Bilateral renal cysts. Limited evaluation due to body habitus. r/o bacteremia 01/25 BCx: ngtd 01/31 bcx: ngtd Failed Swallow evaluation 02/04 at risk for aspiration pneumonitis and pneumonia Thrombocytopenia No diarrhea HIV test negative MRSA screen positive RLE skin graft b/l LE heel pressure ulcers and sacral ulcer Tobacco abuse COPD HTN Kidney cancer OA CKD Anemia Schizophrenia PVD CHF Plan: Switch Linezolid #9/10 to PO doxycycline 100mg bid for MRSA PNA given thrombocytopenia 02/01 SP Azithromycin #5/5 for atypicals 01/31 Ertapenem #8 01/31 DC Amikacin and vancomycin #6 SP cefepime #1 SP flagyl #1 SP vancomycin #1 aspiration precaution, elevate HOB, oral care, frequent suction pulmonary toilet, chest PT DVT PPX discussed with RN Thank you for this consult. [facility] will continue to follow the patient with you. Subjective Allergies: Coded Allergies: No Known Allergies (Unverified , 01/24/19) Subjective afebrile mild leukocytosis at RA Objective Vital Signs Last 24 Hour Vital Signs Date Time Temp Pulse Resp B/P (MAP) Pulse Ox O2 Delivery O2 Flow Rate FiO2 02/08/19 10:00 76 19 107/63 (78) 87 02/08/19 10:00 105/53 02/08/19 09:00 69 14 114/61 (78) 87 02/08/19 09:00 108/56 02/08/19 08:30 64 32 122/56 (78) 02/08/19 08:00 117/58 02/08/19 08:00 Room Air 02/08/19 08:00 54 02/08/19 08:00 57 18 114/50 (71) 02/08/19 07:30 65 23 126/66 (86) 02/08/19 07:00 129/64 02/08/19 07:00 98.3 65 19 122/66 (84) 02/08/19 06:00 110/5 02/08/19 06:00 70 19 103/54 (70) 02/08/19 05:38 114/56 02/08/19 05:30 101 22 114/56 (75) 95 02/08/19 05:00 110/56 02/08/19 05:00 61 20 148/63 (91) 95 02/08/19 04:30 98.6 64 23 121/53 (75) 95 02/08/19 04:00 67 27 120/61 (80) 95 02/08/19 04:00 63 02/08/19 04:00 Room Air 02/08/19 04:00 100/50 02/08/19 03:30 64 19 109/57 (74) 95 02/08/19 03:00 110/50 02/08/19 03:00 70 20 120/55 (76) 95 02/08/19 02:30 60 22 110/52 (71) 95 02/08/19 02:00 55 22 117/52 (73) 96 02/08/19 02:00 112/55 02/08/19 02:00 55 22 117/52 (73) 95 02/08/19 01:30 61 26 99/62 (74) 95 02/08/19 01:00 100/53 02/08/19 01:00 58 25 120/57 (78) 95 02/08/19 00:30 69 35 116/62 (80) 95 02/08/19 00:00 70 02/08/19 00:00 Room Air 02/08/19 00:00 113/65 02/08/19 00:00 98.0 61 22 113/65 (81) 95 02/07/19 23:30 58 34 134/66 (88) 95 02/07/19 23:00 62 19 133/65 (87) 94 02/07/19 23:00 110/54 02/07/19 22:00 60 15 118/73 (88) 93 02/07/19 22:00 105/71 02/07/19 21:30 62 20 150/71 (97) 92 02/07/19 21:00 128/77 02/07/19 21:00 61 17 129/59 (82) 96 02/07/19 20:30 80 19 89/56 (67) 94 02/07/19 20:00 65 02/07/19 20:00 Room Air 02/07/19 20:00 105/58 02/07/19 20:00 98.6 54 23 105/58 (74) 95 02/07/19 19:30 66 21 119/57 (77) 94 02/07/19 19:00 78 18 115/55 (75) 93 02/07/19 19:00 111/57 02/07/19 18:40 96 Room Air 21 02/07/19 18:30 64 16 103/70 (81) 92 02/07/19 18:00 60 16 116/45 (68) 94 02/07/19 17:30 92 20 109/56 (73) 93 02/07/19 17:00 69 20 127/57 (80) 93 02/07/19 16:30 70 18 127/57 (80) 93 02/07/19 16:00 Room Air 02/07/19 16:00 68 19 125/51 (75) 93 02/07/19 16:00 65 02/07/19 15:30 97.6 63 18 114/58 (76) 93 02/07/19 15:00 66 20 129/65 (86) 92 02/07/19 14:30 60 18 128/56 (80) 93 02/07/19 14:00 63 21 122/62 (82) 95 02/07/19 13:30 64 21 110/63 (79) 96 02/07/19 13:00 65 16 110/70 (83) 95 02/07/19 12:00 Room Air 02/07/19 12:00 97.8 70 20 99/51 (67) 95 02/07/19 12:00 72 02/07/19 11:30 63 19 110/58 (75) 96 02/07/19 11:00 117/55 02/07/19 11:00 59 20 117/55 (75) 94 02/07/19 10:30 75 21 111/55 (73) 93 Height (Feet): 5 Height (Inches): 7.00 Weight (Pounds): 110 Objective Gen: NAD HEENT: anicteric sclera. CV: RRR. Resp: coarse. equal chest rise. Abd: soft. normoactive Bs+ Neuro: awake. appropriate Skin: RLE skin graft Laboratory Tests Test 02/08/19 07:35 White Blood Count 11.7 K/UL (4.8-10.8) H Red Blood Count 4.15 M/UL (4.70-6.10) L Hemoglobin 12.6 G/DL (14.2-18.0) L Hematocrit 37.3 % (42.0-52.0) L Mean Corpuscular Volume 90 FL (80-99) Mean Corpuscular Hemoglobin 30.4 PG (27.0-31.0) Mean Corpuscular Hemoglobin Concent 33.8 G/DL (32.0-36.0) Red Cell Distribution Width 13.9 % (11.6-14.8) Platelet Count 86 K/UL (150-450) L Mean Platelet Volume 6.6 FL (6.5-10.1) Neutrophils (%) (Auto) % (45.0-75.0) Lymphocytes (%) (Auto) % (20.0-45.0) Monocytes (%) (Auto) % (1.0-10.0) Eosinophils (%) (Auto) % (0.0-3.0) Basophils (%) (Auto) % (0.0-2.0) Differential Total Cells Counted 100 Neutrophils % (Manual) 88 % (45-75) H Lymphocytes % (Manual) 9 % (20-45) L Monocytes % (Manual) 3 % (1-10) Eosinophils % (Manual) 0 % (0-3) Basophils % (Manual) 0 % (0-2) Band Neutrophils 0 % (0-8) Platelet Estimate Decreased L Platelet Morphology Normal Red Blood Cell Morphology Normal Erythrocyte Sedimentation Rate 22 MM/HR (0-20) H Sodium Level 139 MMOL/L (136-145) Potassium Level 2.7 MMOL/L (3.5-5.1) *L Chloride Level 105 MMOL/L (98-107) Carbon Dioxide Level 35 MMOL/L (21-32) H Anion Gap -1 mmol/L (5-15) L Blood Urea Nitrogen 12 mg/dL (7-18) Creatinine 1.1 MG/DL (0.55-1.30) Estimat Glomerular Filtration Rate > 60 mL/min (>60) Glucose Level 129 MG/DL (74-106) H Calcium Level 7.1 MG/DL (8.5-10.1) L Phosphorus Level 2.5 MG/DL (2.5-4.9) Magnesium Level 1.7 MG/DL (1.8-2.4) L Total Bilirubin 0.5 MG/DL (0.2-1.0) Aspartate Amino Transf (AST/SGOT) 29 U/L (15-37) Alanine Aminotransferase (ALT/SGPT) 44 U/L (12-78) Alkaline Phosphatase 92 U/L (46-116) C-Reactive Protein, Quantitative 4.5 mg/dL (0.00-0.90) H Total Protein 5.4 G/DL (6.4-8.2) L Albumin 2.0 G/DL (3.4-5.0) L Globulin 3.4 g/dL Albumin/Globulin Ratio 0.6 (1.0-2.7) L Current Medications Medications (Trade) Dose Ordered Sig/Ricardo Route PRN Reason Start Time Stop Time Status Last Admin Dose Admin Acetaminophen (Tylenol) 650 mg Q4H PRN ORAL fever 01/24/19 20:00 02/23/19 19:59 Ascorbic Acid (Vitamin C) 250 mg TWICE A DAY ORAL 01/27/19 18:00 02/26/19 17:59 02/08/19 09:02 Chlorhexidine Gluconate (Roseanna-Hex 2%) 1 applic DAILY@2000 TOPIC 02/07/19 20:00 03/09/19 19:59 02/07/19 20:24 Dextrose (Dextrose 50%) 25 ml Q30M PRN IV Hypoglycemia 01/25/19 19:00 02/24/19 18:59 Dextrose (Dextrose 50%) 50 ml Q30M PRN IV Hypoglycemia 01/25/19 19:00 02/24/19 18:59 Dopamine HCl/ Dextrose 250 ml @ 0 mls/hr Q24H IV 02/06/19 06:00 03/08/19 05:59 02/08/19 05:38 Heparin Sodium (Porcine) (Heparin 5000 units/ml) 5,000 units EVERY 12 HOURS SUBQ 01/24/19 21:00 02/23/19 20:59 02/06/19 20:45 Heparin Sodium/ Sodium Chloride (Heparin 1000 units/500ml Premix) 1,000 unit ONCE PRN IV picc line placement 02/07/19 18:45 02/09/19 18:44 Hydrocortisone (Solu-CORTEF) 100 mg EVERY 8 HOURS IV 02/05/19 22:00 03/07/19 21:59 02/08/19 05:38 Insulin Aspart (NovoLOG) EVERY 6 HOURS SUBQ 01/26/19 00:00 02/25/19 00:00 02/08/19 00:21 Lidocaine HCl (Xylocaine 1% 30ml) 30 ml ONCE PRN INJ picc line placement 02/07/19 18:45 02/09/19 18:44 Linezolid 300 ml @ 300 mls/hr Q12HR IVPB 01/31/19 09:00 02/09/19 23:59 02/08/19 09:04 Magnesium Sulfate 100 ml @ 100 mls/hr Q1H IVPB 02/08/19 12:45 02/08/19 14:44 Memantine (Namenda) 5 mg DAILY ORAL 02/04/19 09:00 03/06/19 08:59 02/08/19 09:02 Midodrine (Pro-Amatine) 10 mg THREE TIMES A DAY NG 02/04/19 18:00 03/01/19 12:59 02/08/19 09:02 Pantoprazole (Protonix) 40 mg DAILY IVP 01/25/19 09:00 02/24/19 08:59 02/08/19 09:03 Polyethylene Glycol (Miralax) 17 gm DAILYPRN PRN ORAL Constipation 01/24/19 20:00 02/23/19 19:59 02/01/19 05:47 Potassium Chloride (K-Dur) 40 meq TWICE A DAY NG 01/27/19 11:45 02/26/19 11:44 02/08/19 09:04 Quetiapine Fumarate (SEROqueL) 25 mg QHS ORAL 02/03/19 21:00 03/05/19 20:59 02/07/19 20:26 Sodium Chloride 1,000 ml @ 50 mls/hr Q20H IV 02/05/19 20:29 03/07/19 20:28 02/08/19 05:40 Theophylline (Saw-Dur) 100 mg EVERY 12 HOURS ORAL 02/03/19 13:15 03/05/19 13:14 02/08/19 09:02 Lesli Michaels M.D. Feb 08, 2019 10:36
--- NOTE | 2019-02-08 11:46 | Diagnostic Imaging Report ---
Indication: Dyspnea Comparison: 02/04/2019 A single view chest radiograph was obtained. Findings: Bilateral infiltrates again demonstrated without change. Heart size is stable. PICC line is present in good position unchanged. IMPRESSION: No significant change compared to the prior exam
--- NOTE | 2019-02-08 12:16 | NUR ---
NURSE NOTES: PT BS is 193, PT is NPO status, 4 units per protocol, but 2 units novolog given.
--- NOTE | 2019-02-08 12:29 | Nephrology Progress Note ---
Assessment/Plan Problem List: (1) Renal failure (ARF), acute on chronic (2) Acute respiratory failure (3) Septic shock (4) Bradyarrhythmia Assessment Renal failure- Likely acute on Chronic- Cr lower Acute respiratory failure- intubated on Vent Septic Shock- On pressors COPD PVD Schizophrenia Plan NGT out K IV Now ( 02/02) extubated- tolerating well pulmonary support aim to taper dopamine stop IV fluid renal dose dopamin for low HR K supplement down on hydration One dose IV Lasix mag and Phos and K supplement as needed 2D Echo Low Ej Fx - Global Hypokinesis Avoid nephrotoxics afterload reduction monitor renal parameters urine studies ADRIAN IMPRESSION: Nonobstructive stones in the left kidney demonstrated. Bilateral renal cysts. Subjective ROS Limited/Unobtainable: No Constitutional: Reports: malaise Objective Objective Last 24 Hour Vital Signs Date Time Temp Pulse Resp B/P (MAP) Pulse Ox O2 Delivery O2 Flow Rate FiO2 02/08/19 12:00 98.2 66 23 132/60 (84) 90 02/08/19 12:00 130/50 02/08/19 12:00 Room Air 02/08/19 11:47 60 02/08/19 11:30 61 21 126/53 (77) 92 02/08/19 11:00 80 16 126/61 (82) 84 02/08/19 11:00 111/54 02/08/19 10:30 62 18 137/61 (86) 91 02/08/19 10:00 76 19 107/63 (78) 87 02/08/19 10:00 105/53 02/08/19 09:30 65 18 120/62 (81) 80 02/08/19 09:00 69 14 114/61 (78) 87 02/08/19 09:00 108/56 02/08/19 08:30 64 32 122/56 (78) 02/08/19 08:00 117/58 02/08/19 08:00 Room Air 02/08/19 08:00 54 02/08/19 08:00 57 18 114/50 (71) 02/08/19 07:30 65 23 126/66 (86) 02/08/19 07:00 129/64 02/08/19 07:00 98.3 65 19 122/66 (84) 02/08/19 06:00 110/5 02/08/19 06:00 70 19 103/54 (70) 02/08/19 05:38 114/56 02/08/19 05:30 101 22 114/56 (75) 95 02/08/19 05:00 110/56 02/08/19 05:00 61 20 148/63 (91) 95 02/08/19 04:30 98.6 64 23 121/53 (75) 95 02/08/19 04:00 67 27 120/61 (80) 95 02/08/19 04:00 63 02/08/19 04:00 Room Air 02/08/19 04:00 100/50 02/08/19 03:30 64 19 109/57 (74) 95 02/08/19 03:00 110/50 02/08/19 03:00 70 20 120/55 (76) 95 02/08/19 02:30 60 22 110/52 (71) 95 02/08/19 02:00 55 22 117/52 (73) 96 02/08/19 02:00 112/55 02/08/19 02:00 55 22 117/52 (73) 95 02/08/19 01:30 61 26 99/62 (74) 95 02/08/19 01:00 100/53 02/08/19 01:00 58 25 120/57 (78) 95 02/08/19 00:30 69 35 116/62 (80) 95 02/08/19 00:00 70 02/08/19 00:00 Room Air 02/08/19 00:00 113/65 02/08/19 00:00 98.0 61 22 113/65 (81) 95 02/07/19 23:30 58 34 134/66 (88) 95 02/07/19 23:00 62 19 133/65 (87) 94 02/07/19 23:00 110/54 02/07/19 22:00 60 15 118/73 (88) 93 02/07/19 22:00 105/71 02/07/19 21:30 62 20 150/71 (97) 92 02/07/19 21:00 128/77 02/07/19 21:00 61 17 129/59 (82) 96 02/07/19 20:30 80 19 89/56 (67) 94 02/07/19 20:00 65 02/07/19 20:00 Room Air 02/07/19 20:00 105/58 02/07/19 20:00 98.6 54 23 105/58 (74) 95 02/07/19 19:30 66 21 119/57 (77) 94 02/07/19 19:00 78 18 115/55 (75) 93 02/07/19 19:00 111/57 02/07/19 18:40 96 Room Air 21 02/07/19 18:30 64 16 103/70 (81) 92 02/07/19 18:00 60 16 116/45 (68) 94 02/07/19 17:30 92 20 109/56 (73) 93 02/07/19 17:00 69 20 127/57 (80) 93 02/07/19 16:30 70 18 127/57 (80) 93 02/07/19 16:00 Room Air 02/07/19 16:00 68 19 125/51 (75) 93 02/07/19 16:00 65 02/07/19 15:30 97.6 63 18 114/58 (76) 93 02/07/19 15:00 66 20 129/65 (86) 92 02/07/19 14:30 60 18 128/56 (80) 93 02/07/19 14:00 63 21 122/62 (82) 95 02/07/19 13:30 64 21 110/63 (79) 96 02/07/19 13:00 65 16 110/70 (83) 95 Intake and Output 02/07/19 02/08/19 18:59 06:59 Intake Total 610.005 ml 4949.012 ml Output Total 905 ml 1270 ml Balance -294.995 ml 3679.012 ml IV Total 570.005 ml 4949.012 ml Other 40 ml Output Urine Total 905 ml 1270 ml Laboratory Tests 02/08/19 07:35: White Blood Count 11.7H, Red Blood Count 4.15L, Hemoglobin 12.6L, Hematocrit 37.3L, Mean Corpuscular Volume 90, Mean Corpuscular Hemoglobin 30.4, Mean Corpuscular Hemoglobin Concent 33.8, Red Cell Distribution Width 13.9, Platelet Count 86L, Mean Platelet Volume 6.6, Neutrophils (%) (Auto) , Lymphocytes (%) ( Auto) , Monocytes (%) (Auto) , Eosinophils (%) (Auto) , Basophils (%) (Auto) , Differential Total Cells Counted 100, Neutrophils % (Manual) 88H, Lymphocytes % (Manual) 9L, Monocytes % (Manual) 3, Eosinophils % (Manual) 0, Basophils % ( Manual) 0, Band Neutrophils 0, Platelet Estimate DecreasedL, Platelet Morphology Normal, Red Blood Cell Morphology Normal, Erythrocyte Sedimentation Rate 22H, Sodium Level 139, Potassium Level 2.7*L, Chloride Level 105, Carbon Dioxide Level 35H, Anion Gap -1L, Blood Urea Nitrogen 12, Creatinine 1.1, Estimat Glomerular Filtration Rate > 60, Glucose Level 129H, Calcium Level 7.1L , Phosphorus Level 2.5, Magnesium Level 1.7L, Total Bilirubin 0.5, Aspartate Amino Transf (AST/SGOT) 29, Alanine Aminotransferase (ALT/SGPT) 44, Alkaline Phosphatase 92, C-Reactive Protein, Quantitative 4.5H, Total Protein 5.4L, Albumin 2.0L, Globulin 3.4, Albumin/Globulin Ratio 0.6L Height (Feet): 5 Height (Inches): 7.00 Weight (Pounds): 110 General Appearance: no apparent distress Cardiovascular: normal rate Respiratory/Chest: decreased breath sounds Abdomen: soft Bienvenido Gonzalez MD Feb 08, 2019 12:29
--- NOTE | 2019-02-08 12:51 | NUR ---
BAR PILOTMEAT MOLDER SI; SEPSIS,DEHYDRATION T. 98.2 HR 66 RR 21 B/P 126/53 RA 95% WBC 11.7 PLT 86 ESR 22 MG 1.7 K 2.7 IS: DOPAMINE GTT KCL IV MG IV IVF NS @ 50ML/HR ICU STATUS
--- NOTE | 2019-02-08 14:38 | NUR ---
RD ASSESSMENT & RECOMMENDATIONS SEE CARE ACTIVITY FOR COMPLETE ASSESSMENT DAILY ESTIMATED NEEDS: Needs based on Pulmonary, sepsis, wounds 69kg 28-33 kcals/kg 7139-6996 total kcals 1.25-2 g protein/kg 86-138 g total protein 25-30 mL/kg 0437-1074 total fluid mLs NUTRITION DIAGNOSIS: Increased kcal and pro needs r/t sepsis, wound healing, and underweight status as evidenced by pt w respiratory distress now s/p extubation, critically elev WBC (*29.7-> 11.7), elev BGs w/ POC (110-193), w/ multiple wounds (refer to eval), pt is @88% if [place] Body Weight. CURRENT TF:NPO PO DIET RECOMMENDATIONS: IF SAFE FOR ORAL DIET: CCHO MED, LOW NA + Glucerna w/ meals ENTERAL NUTRITION RECOMMENDATIONS: Glucerna 1.5 @ 50ml/hr x24 hrs to provide 1200ml, 1800 kcal, 99g pro, 911ml free H2o * IF TF INDICATED AND PART OF POC -> Obtain GI access, initiate Glucerna 1.5 @ 20ml/hr x 6 hrs -> Advance 10ml q 4-6 hrs as tolerated to goal rate. . -> HOB over 30 degrees/ water flush per MD ADDITIONAL RECOMMENDATIONS: 1) Per SNF: HT 71 inches, 152 lbs (69.1kg) + daily calibrated bedscale wts 2) Wound care: Continue Vit C; add MVI : Christian 1pkt BID w/ oral diet or w/ GI access 3) Monitor lytes daily, replete as needed (low K and mag) 4) NPO day 5 from extubation -> rec nonoral feeds if not safe for oral diet 5) Monitor BGs closely, need for long acting insulin .
--- NOTE | 2019-02-08 15:13 | NUR ---
NURSE NOTES: GI freddy Telles RN called, PT to be NPO midnight, will go down for PEG tomorrow morning 729, PM nurse to make sure lab is called to draw 02/09/19 labs at 0400 / 0500.
--- NOTE | 2019-02-08 15:15 | Progress Note ---
DATE: 02/08/2019 SUBJECTIVE: This is a 68-year-old male patient. The patient is still in the ICU. Still has some confusion, disorganized thought process, and mood lability. Because of decline in cognition, his attending has requested daily psychiatric consultation. MENTAL STATUS EXAMINATION: This is a 68-year-old male. Appearance is disheveled. Attitude, irritable and agitated. Affect, guarded and restricted. Intellect poor. Mood depressed and anxious. Motor activity, psychomotor agitation. Insight and judgment is poor. DIAGNOSIS: Paranoid schizophrenia, acute exacerbation. PLAN: Seroquel 25 mg at bedtime, Ativan 2 mg IV every 2 hours p.r.n. anxiety and agitation, Namenda 5 mg daily. 20 minutes of behavioral management provided. Chart reviewed. Discussed with staff. Seen and assessed in the ICU. Stacie Paige M.D. DR: CELINE JOB#: [id number] CC:
--- NOTE | 2019-02-08 15:57 | Diagnostic Imaging Report ---
Indication: Dysphagia Procedure and findings: A single advance scout fluoroscopic image of the neck performed in the lateral projection followed by real-time fluoroscopic video/cine imaging performed in a lateral projection in conjunction with the speech pathologist evaluation. Variable consistencies of barium given per mouth. Findings: Significant abnormalities of both oral and pharyngeal phases of swallowing are demonstrated. Total fluoroscopic time: 209 seconds. Total number of fluoroscopic images obtained: 8 Study was somewhat limited. Patient had poor compliance. Aspiration was noted with thin barium. Laryngeal penetration demonstrated on other consistencies such as nectar/thick Abnormal video swallow. Please refer to speech pathology evaluation for more information.
[2019-02-08 17:29] LABS: ALANINE AMINOTRANSFERASE 42 U/L (12-78); ALBUMIN/GLOBULIN RATIO 0.5 (1.0-2.7); ALKALINE PHOSPHATASE 103 U/L (46-116); ANION GAP 7 mmol/L (5-15); ASPARTATE AMINO TRANSFERASE 31 U/L (15-37); BILIRUBIN,TOTAL 0.6 MG/DL (0.2-1.0); BLOOD UREA NITROGEN 13 mg/dL (7-18); CALCIUM 7.1 MG/DL (8.5-10.1); CARBON DIOXIDE 30 MMOL/L (21-32); CHLORIDE 104 MMOL/L (98-107); CREATININE 1.1 MG/DL (0.55-1.30); POTASSIUM 3.1 MMOL/L (3.5-5.1); SODIUM 141 MMOL/L (136-145)
--- NOTE | 2019-02-08 18:50 | Surgery Progress Note ---
Surgery Progress Note Subjective Additional Comments awake, responsive but not very pleasant labs noted pending neuro eval ?today pending PEG Objective Last 24 Hour Vital Signs Date Time Temp Pulse Resp B/P (MAP) Pulse Ox O2 Delivery O2 Flow Rate FiO2 02/08/19 18:00 57 16 108/48 (68) 93 02/08/19 18:00 108/48 02/08/19 17:30 66 16 112/53 (72) 88 02/08/19 17:00 123/53 02/08/19 17:00 61 20 119/54 (75) 90 02/08/19 16:30 54 20 121/56 (77) 88 02/08/19 16:00 55 02/08/19 16:00 114/61 02/08/19 16:00 Room Air 02/08/19 16:00 97.6 56 21 114/61 (78) 88 02/08/19 15:30 60 19 111/61 (78) 93 02/08/19 15:00 115/56 02/08/19 15:00 56 15 116/56 (76) 88 02/08/19 14:30 73 16 105/53 (70) 86 02/08/19 14:00 123/60 02/08/19 14:00 57 18 116/87 (97) 89 02/08/19 14:00 69 17 123/60 (81) 87 02/08/19 13:30 60 21 130/63 (85) 90 02/08/19 13:00 62 22 140/72 (94) 92 02/08/19 13:00 130/63 02/08/19 12:30 53 22 136/58 (84) 90 02/08/19 12:00 98.2 66 23 132/60 (84) 90 02/08/19 12:00 130/50 02/08/19 12:00 Room Air 02/08/19 11:47 60 02/08/19 11:30 61 21 126/53 (77) 92 02/08/19 11:00 80 16 126/61 (82) 84 02/08/19 11:00 111/54 02/08/19 10:30 62 18 137/61 (86) 91 02/08/19 10:00 76 19 107/63 (78) 87 02/08/19 10:00 105/53 02/08/19 09:30 65 18 120/62 (81) 80 02/08/19 09:00 69 14 114/61 (78) 87 02/08/19 09:00 108/56 02/08/19 08:30 64 32 122/56 (78) 02/08/19 08:00 117/58 02/08/19 08:00 Room Air 02/08/19 08:00 54 02/08/19 08:00 57 18 114/50 (71) 02/08/19 07:30 65 23 126/66 (86) 02/08/19 07:00 129/64 02/08/19 07:00 98.3 65 19 122/66 (84) 02/08/19 06:00 110/5 02/08/19 06:00 70 19 103/54 (70) 02/08/19 05:38 114/56 02/08/19 05:30 101 22 114/56 (75) 95 02/08/19 05:00 110/56 02/08/19 05:00 61 20 148/63 (91) 95 02/08/19 04:30 98.6 64 23 121/53 (75) 95 02/08/19 04:00 67 27 120/61 (80) 95 02/08/19 04:00 63 02/08/19 04:00 Room Air 02/08/19 04:00 100/50 02/08/19 03:30 64 19 109/57 (74) 95 02/08/19 03:00 110/50 02/08/19 03:00 70 20 120/55 (76) 95 02/08/19 02:30 60 22 110/52 (71) 95 02/08/19 02:00 55 22 117/52 (73) 96 02/08/19 02:00 112/55 02/08/19 02:00 55 22 117/52 (73) 95 02/08/19 01:30 61 26 99/62 (74) 95 02/08/19 01:00 100/53 02/08/19 01:00 58 25 120/57 (78) 95 02/08/19 00:30 69 35 116/62 (80) 95 02/08/19 00:00 70 02/08/19 00:00 Room Air 02/08/19 00:00 113/65 02/08/19 00:00 98.0 61 22 113/65 (81) 95 02/07/19 23:30 58 34 134/66 (88) 95 02/07/19 23:00 62 19 133/65 (87) 94 02/07/19 23:00 110/54 02/07/19 22:00 60 15 118/73 (88) 93 02/07/19 22:00 105/71 02/07/19 21:30 62 20 150/71 (97) 92 02/07/19 21:00 128/77 02/07/19 21:00 61 17 129/59 (82) 96 02/07/19 20:30 80 19 89/56 (67) 94 02/07/19 20:00 65 02/07/19 20:00 Room Air 02/07/19 20:00 105/58 02/07/19 20:00 98.6 54 23 105/58 (74) 95 02/07/19 19:30 66 21 119/57 (77) 94 02/07/19 19:00 78 18 115/55 (75) 93 02/07/19 19:00 111/57 I&O Intake and Output 02/07/19 02/08/19 19:00 07:00 Intake Total 610.005 ml 4949.012 ml Output Total 895 ml 1370 ml Balance -284.995 ml 3579.012 ml IV Total 570.005 ml 4949.012 ml Other 40 ml Output Urine Total 895 ml 1370 ml Dressing: saturated Wound: other Drains: other Cardiovascular: RSR Respiratory: decreased breath sounds Abdomen: soft, present bowel sounds Extremities: no cyanosis, other Laboratory Tests Test 02/08/19 07:35 02/08/19 16:55 White Blood Count 11.7 K/UL (4.8-10.8) H Red Blood Count 4.15 M/UL (4.70-6.10) L Hemoglobin 12.6 G/DL (14.2-18.0) L Hematocrit 37.3 % (42.0-52.0) L Mean Corpuscular Volume 90 FL (80-99) Mean Corpuscular Hemoglobin 30.4 PG (27.0-31.0) Mean Corpuscular Hemoglobin Concent 33.8 G/DL (32.0-36.0) Red Cell Distribution Width 13.9 % (11.6-14.8) Platelet Count 86 K/UL (150-450) L Mean Platelet Volume 6.6 FL (6.5-10.1) Neutrophils (%) (Auto) % (45.0-75.0) Lymphocytes (%) (Auto) % (20.0-45.0) Monocytes (%) (Auto) % (1.0-10.0) Eosinophils (%) (Auto) % (0.0-3.0) Basophils (%) (Auto) % (0.0-2.0) Differential Total Cells Counted 100 Neutrophils % (Manual) 88 % (45-75) H Lymphocytes % (Manual) 9 % (20-45) L Monocytes % (Manual) 3 % (1-10) Eosinophils % (Manual) 0 % (0-3) Basophils % (Manual) 0 % (0-2) Band Neutrophils 0 % (0-8) Platelet Estimate Decreased L Platelet Morphology Normal Red Blood Cell Morphology Normal Erythrocyte Sedimentation Rate 22 MM/HR (0-20) H Sodium Level 139 MMOL/L (136-145) 141 MMOL/L (136-145) Potassium Level 2.7 MMOL/L (3.5-5.1) *L 3.1 MMOL/L (3.5-5.1) L Chloride Level 105 MMOL/L (98-107) 104 MMOL/L (98-107) Carbon Dioxide Level 35 MMOL/L (21-32) H 30 MMOL/L (21-32) Anion Gap -1 mmol/L (5-15) L 7 mmol/L (5-15) Blood Urea Nitrogen 12 mg/dL (7-18) 13 mg/dL (7-18) Creatinine 1.1 MG/DL (0.55-1.30) 1.1 MG/DL (0.55-1.30) Estimat Glomerular Filtration Rate > 60 mL/min (>60) > 60 mL/min (>60) Glucose Level 129 MG/DL (74-106) H 152 MG/DL (74-106) H Calcium Level 7.1 MG/DL (8.5-10.1) L 7.1 MG/DL (8.5-10.1) L Phosphorus Level 2.5 MG/DL (2.5-4.9) Magnesium Level 1.7 MG/DL (1.8-2.4) L Total Bilirubin 0.5 MG/DL (0.2-1.0) 0.6 MG/DL (0.2-1.0) Aspartate Amino Transf (AST/SGOT) 29 U/L (15-37) 31 U/L (15-37) Alanine Aminotransferase (ALT/SGPT) 44 U/L (12-78) 42 U/L (12-78) Alkaline Phosphatase 92 U/L (46-116) 103 U/L (46-116) C-Reactive Protein, Quantitative 4.5 mg/dL (0.00-0.90) H Total Protein 5.4 G/DL (6.4-8.2) L 5.8 G/DL (6.4-8.2) L Albumin 2.0 G/DL (3.4-5.0) L 2.0 G/DL (3.4-5.0) L Globulin 3.4 g/dL 3.8 g/dL Albumin/Globulin Ratio 0.6 (1.0-2.7) L 0.5 (1.0-2.7) L Plan Problems: (1) Sepsis Assessment & Plan: afebrile, HD improving HR -noted cardiology input leukocytosis lactic acidosis resolved slowly improving -IV abx as per ID -trend labs -swallow eval not ready so wait until once more responsive plan for trial swallow again next week if cont to fail will discuss with team about peg as currently he is fairly alert discussed with GI. reviewed bioethics Neuro eval for dementia -will follow with recs thank you (2) Septic shock (3) Wound, open Assessment & Plan: Patient presented on admission with multiple pressure injuries being identified. Non-blanching erythema without induration noted to sacrum ,Right and Left buttocks. Scattered areas that are darker and maroon in color noted within base of wound. Scrotum is also erythematous. Unstageable pressure injury noted to Left heel. Base of wound is 100% necrotic but soft. Erythematous margins with surrounding non-blanching erythema.(L)3.2cm x (W)3cm. no drainage Right heel is boggy with non-blanching erythema.. Keloid scar noted distal R tibia. Partial thickness ulcer noted to dorsal R foot. Base of wound is moist and viable. Small amt serous exudate noted. Scattered small dry scabs noted to dorsal R foot. Tx.Plan: Swab Dorsal R foot and R heel with Betadine. Cover with Optifoam drsg. Change every 3 days and prn. Apply Moisture Barrier Paste to buttocks. Cover sacrum with Optifoam drsg. Change every 3 days and prn. Apply Cavilon Skin Barrier to L heel.Cover with Optifoam drsg. Change every 7 days and prn. APM/JELLY mattress. Reposition at least every 2hours or as tolerated. Off-load heels with pillow. Nutritional Optimization Will monitor while in critical condition DAILY ESTIMATED NEEDS: Needs based on Critical care, sepsis, wounds 69kg 22-30 kcals/kg 8422-8074 total kcals 1.25-2 g protein/kg 86-138 g total protein 25-30 mL/kg 5766-6633 total fluid mLs NUTRITION DIAGNOSIS: Increased kcal and pro needs r/t sepsis, wound healing, and underweight status as evidenced by pt w respiratory distress now intubated, critically elev WBC (*29.7), elev BG (200's), w/ multiple wounds (refer to eval), pt is @88% if [place] Body Weight. CURRENT TF: Glucerna 1.2 @30ml ENTERAL NUTRITION RECOMMENDATIONS: VITAL AF 1.2 @60ml/hr x24 hrs to provide 1440ml, 1728 kcal, 108g pro, 1168ml free H2O - WITH HEMODYNAMIC STABILITY, rec TF change to VITAL 1.2 to better meet est needs. Start @20ml/hr for 6 hrs. Advance as tolerated 10ml/hr q4-6 hrs to goal. - Flush per . HOB over 30 degrees If pt remains on pressor support, rec trophic feeds of Vital 1.2 @5-10ml/hr to maintain gut integrity. ------ ADDITIONAL RECOMMENDATIONS: 1) Per SNF: HT 71 inches, 152 lbs (69.1kg) 2) Wound care: Add DANIELA in 4oz water BID via OGT + VIT C 250mg BID (f/up w/ WC specialist) 3) Monitor lytes daily, replete as needed 4) Daily calibrated bed scale wts Mauricio Anne Feb 08, 2019 18:50
--- NOTE | 2019-02-08 19:21 | NUR ---
HAND-OFF: Report and PT given to EUGENIA Henry.
--- NOTE | 2019-02-08 19:30 | NUR ---
NURSE NOTES: Received pt in no acute distress, calm, asleep but arousable to name and touch. Currently on room air, denies SOB, denies pains. Afebrile, SR/SB on the monitor; BP stable. PICC on JONATHAN intact with Dopamine gtt still infusing at 1.717 mcg/kg/min. Main IVF of NS infuses at 50ml/h. Received with #4 bag of KCL 10 meq infusing. FC intact. draining good amt of clear urine. Pt for planned PEG placement in AM but no consent yet; pt unable due to dementia. Called Dr Short but out of town. Called Dr Anthony, awaiting response.
[2019-02-08] MEDS: Dyna-Hex 2% Top Sol 2oz TOPIC SCH (19:39)
[2019-02-08] MEDS: Doxycycline Monohydrate 100mg ORAL SCH (20:49)
--- NOTE | 2019-02-08 21:00 | NUR ---
NURSE NOTES: Still no response from Dr Anthony; call placed to Dr Valderrama, awaiting response. Pt awake at this time and passive-aggressive. Swearing and screaming and claims he is hungry and wants some solid food. Heparin subcut injection held due to low platelets
[2019-02-09] VITALS (38 sets, daily range): BP systolic 86–142; BP diastolic 33–75
--- NOTE | 2019-02-09 | NUR ---
NURSE NOTES: Awake, passive-aggressive. Refuses procedures at times. Bradycardic to 54-60bpm but asymptomatic. BP stable, afebrile. Accucheck 118; coverage held due to NPO.
--- NOTE | 2019-02-09 02:00 | NUR ---
NURSE NOTES: Sleeping; no distress; VSS
--- NOTE | 2019-02-09 04:00 | NUR ---
NURSE NOTES: Awake, calm, passive Able to render AM care but refused oral care. No BM NPO for PEG placement today. Still no consent for procedure but MD notified. dopamine gtt continues at 1.717mcg/kg/min. Pt bradycardic to 52-57 bu asymptomatic. BP stable; afebrile.
[2019-02-09 04:46] LABS: HEMATOCRIT 34.4 % (42.0-52.0); HEMOGLOBIN 11.5 G/DL (14.2-18.0); MEAN CORPUSCULAR VOLUME 91 FL (80-99); PLATELET COUNT 74 K/UL (150-450); RED BLOOD COUNT 3.77 M/UL (4.70-6.10); RED CELL DISTRIBUTION WIDTH 14.3 % (11.6-14.8); WHITE BLOOD COUNT 9.5 K/UL (4.8-10.8)
[2019-02-09 05:04] LABS: ALANINE AMINOTRANSFERASE 45 U/L (12-78); ALBUMIN/GLOBULIN RATIO 0.6 (1.0-2.7); ALKALINE PHOSPHATASE 99 U/L (46-116); ANION GAP 6 mmol/L (5-15); ASPARTATE AMINO TRANSFERASE 32 U/L (15-37); BILIRUBIN,TOTAL 0.7 MG/DL (0.2-1.0); BLOOD UREA NITROGEN 13 mg/dL (7-18); CALCIUM 7.1 MG/DL (8.5-10.1); CARBON DIOXIDE 30 MMOL/L (21-32); CHLORIDE 105 MMOL/L (98-107); PHOSPHORUS 1.8 MG/DL (2.5-4.9); POTASSIUM 3.3 MMOL/L (3.5-5.1); SODIUM 141 MMOL/L (136-145)
[2019-02-09] MEDS: DOPamine 400mg/250ml 250 ML IV SCH (05:05)
[2019-02-09] MEDS: NovoLOG Insulin Flexpen SUBQ SCH ×5 (05:43→23:57)
[2019-02-09] MEDS: Hydrocortisone 100mg Inj IV SCH ×3 (05:51→22:27)
--- NOTE | 2019-02-09 06:31 | NUR ---
NURSE NOTES: Dr. Izquierdo at bedside rounding on patient. Ordered to given 1 unit of platelets prior to GT placement.
--- NOTE | 2019-02-09 07:05 | NUR ---
NURSE NOTES: Pt received from EUGENIA Dahl in stable condition without cardiopulmonary distress. Pt is awake in bed, AAOx1 on 2L O2 via NC. F/C noted draining clear yellow urine. Skin alterations ntoed. Pt has a JONATHAN PICC infusing dopamine at 1.717 mcg/kg/min. Pt hooked to hall monitor currently SB 55 bpm. Bed is in lowest position, alarm on, side rails up x 3, call light within reach. Will continue to monitor. Addendum: 02/09/19 at 0818 by Allison Palacios RN Late Entry: JONATHAN PICC also noted infusing NS at 50cc/hr
--- NOTE | 2019-02-09 07:05 | NUR ---
HAND-OFF: Report given to Nehal BELLO.
[2019-02-09] MEDS ORDERED: fentaNYL 100 mcg/2 mL IV PRN (07:15)
[2019-02-09] MEDS ORDERED: DiphenhydrAMINE 50mg/ml Inj IVP PRN (07:15)
[2019-02-09] MEDS ORDERED: Midazolam 2mg/2ml Inj IVP PRN (07:15)
[2019-02-09] MEDS ORDERED: Atropine Inj 1mg/10ml Syr IV PRN (07:15)
--- NOTE | 2019-02-09 08:03 | General Progress Note ---
Assessment/Plan Problem List: (1) DM (diabetes mellitus) ICD Codes: E11.9 - Type 2 diabetes mellitus without complications SNOMED: 00048643 (2) cardiomyopathy with EF of 35% (3) Encounter for PEG (percutaneous endoscopic gastrostomy) ICD Codes: Z43.1 - Encounter for attention to gastrostomy SNOMED: 347581571, 635602845 (4) Dysphagia ICD Codes: R13.10 - Dysphagia, unspecified SNOMED: 93832260, 135601364 (5) Bradyarrhythmia ICD Codes: I49.8 - Other specified cardiac arrhythmias SNOMED: 329427382 (6) Systolic heart failure ICD Codes: I50.20 - Unspecified systolic (congestive) heart failure SNOMED: 550482543 (7) Schizophrenia ICD Codes: F20.9 - Schizophrenia, unspecified SNOMED: 65796332 (8) COPD (chronic obstructive pulmonary disease) ICD Codes: J44.9 - Chronic obstructive pulmonary disease, unspecified SNOMED: 61755504 Qualifiers: Qualified Codes: J44.9 - Chronic obstructive pulmonary disease, unspecified Status: stable, progressing, unchanged Assessment/Plan: failed swallow eval needs peg Bioethic consult recommended against peg if dementia is severe recommend neurology consult attempt to place NGT failed again today plan PEG for tomorrow if consented Subjective ROS Limited/Unobtainable: No Allergies: Coded Allergies: No Known Allergies (Unverified , 01/24/19) Objective Last 24 Hour Vital Signs Date Time Temp Pulse Resp B/P (MAP) Pulse Ox O2 Delivery O2 Flow Rate FiO2 02/09/19 07:54 93 Room Air 21 02/09/19 06:02 62 16 121/57 (78) 96 02/09/19 06:00 121/57 02/09/19 05:05 98/52 02/09/19 05:00 98/52 02/09/19 05:00 52 21 98/52 (67) 100 02/09/19 04:00 64 02/09/19 04:00 142/75 02/09/19 04:00 97.8 61 22 142/75 (97) 100 02/09/19 04:00 Room Air 02/09/19 03:00 58 21 124/61 (82) 100 02/09/19 03:00 124/61 02/09/19 02:00 60 20 133/66 (88) 92 02/09/19 02:00 133/66 02/09/19 01:00 125/56 02/09/19 01:00 52 23 125/56 (79) 92 02/09/19 00:00 97.7 49 28 124/57 (79) 90 02/09/19 00:00 Room Air 02/09/19 00:00 124/57 02/09/19 00:00 51 02/08/19 23:00 115/58 02/08/19 23:00 58 23 115/58 (77) 89 02/08/19 22:00 112/53 02/08/19 22:00 67 22 112/53 (72) 92 02/08/19 21:00 58 18 95/70 (78) 89 02/08/19 21:00 95/70 02/08/19 20:00 54 02/08/19 20:00 109/48 02/08/19 20:00 Room Air 02/08/19 20:00 98.0 53 19 109/48 (68) 93 02/08/19 19:30 52 17 113/52 (72) 92 02/08/19 19:06 94 Room Air 21 02/08/19 19:06 51 19 94 Room Air 21 02/08/19 19:00 58 21 120/53 (75) 93 02/08/19 19:00 120/53 02/08/19 18:00 57 16 108/48 (68) 93 02/08/19 18:00 108/48 02/08/19 17:30 66 16 112/53 (72) 88 02/08/19 17:00 123/53 02/08/19 17:00 61 20 119/54 (75) 90 02/08/19 16:30 54 20 121/56 (77) 88 02/08/19 16:00 55 02/08/19 16:00 114/61 02/08/19 16:00 Room Air 02/08/19 16:00 97.6 56 21 114/61 (78) 88 02/08/19 15:30 60 19 111/61 (78) 93 02/08/19 15:00 115/56 02/08/19 15:00 56 15 116/56 (76) 88 02/08/19 14:30 73 16 105/53 (70) 86 02/08/19 14:00 123/60 02/08/19 14:00 57 18 116/87 (97) 89 02/08/19 14:00 69 17 123/60 (81) 87 02/08/19 13:30 60 21 130/63 (85) 90 02/08/19 13:00 62 22 140/72 (94) 92 02/08/19 13:00 130/63 02/08/19 12:30 53 22 136/58 (84) 90 02/08/19 12:00 98.2 66 23 132/60 (84) 90 02/08/19 12:00 130/50 02/08/19 12:00 Room Air 02/08/19 11:47 60 02/08/19 11:30 61 21 126/53 (77) 92 02/08/19 11:00 80 16 126/61 (82) 84 02/08/19 11:00 111/54 02/08/19 10:30 62 18 137/61 (86) 91 02/08/19 10:00 76 19 107/63 (78) 87 02/08/19 10:00 105/53 02/08/19 09:30 65 18 120/62 (81) 80 02/08/19 09:00 69 14 114/61 (78) 87 02/08/19 09:00 108/56 02/08/19 08:30 64 32 122/56 (78) Intake and Output 02/08/19 02/09/19 19:00 07:00 Intake Total 1466.012 ml 794.011 ml Output Total 1105 ml 960 ml Balance 361.012 ml -165.989 ml IV Total 1348.012 ml 794.011 ml Other 118 ml Output Urine Total 1105 ml 960 ml Laboratory Tests 02/08/19 16:55: Sodium Level 141, Potassium Level 3.1L, Chloride Level 104, Carbon Dioxide Level 30, Anion Gap 7, Blood Urea Nitrogen 13, Creatinine 1.1, Estimat Glomerular Filtration Rate > 60, Glucose Level 152H, Calcium Level 7.1L, Total Bilirubin 0.6, Aspartate Amino Transf (AST/SGOT) 31, Alanine Aminotransferase ( ALT/SGPT) 42, Alkaline Phosphatase 103, Total Protein 5.8L, Albumin 2.0L, Globulin 3.8, Albumin/Globulin Ratio 0.5L 11/26/19 03:30: Sodium Level 141, Potassium Level 3.3L, Chloride Level 105, Carbon Dioxide Level 30, Anion Gap 6, Blood Urea Nitrogen 13, Creatinine 1.0, Estimat Glomerular Filtration Rate > 60, Glucose Level 133H, Calcium Level 7.1L, Total Bilirubin 0.7, Aspartate Amino Transf (AST/SGOT) 32, Alanine Aminotransferase ( ALT/SGPT) 45, Alkaline Phosphatase 99, Total Protein 5.5L, Albumin 2.0L, Globulin 3.5, Albumin/Globulin Ratio 0.6L, White Blood Count 9.5, Red Blood Count 3.77L, Hemoglobin 11.5L, Hematocrit 34.4L, Mean Corpuscular Volume 91, Mean Corpuscular Hemoglobin 30.5, Mean Corpuscular Hemoglobin Concent 33.4, Red Cell Distribution Width 14.3, Platelet Count 74L, Mean Platelet Volume 6.5, Neutrophils (%) (Auto) , Lymphocytes (%) (Auto) , Monocytes (%) (Auto) , Eosinophils (%) (Auto) , Basophils (%) (Auto) , Neutrophils % (Manual) [Pending] , Lymphocytes % (Manual) [Pending], Platelet Estimate [Pending], Platelet Morphology [Pending], Erythrocyte Sedimentation Rate 24H, Phosphorus Level 1.8L , Magnesium Level 1.9, C-Reactive Protein, Quantitative 3.4H Height (Feet): 5 Height (Inches): 7.00 Weight (Pounds): 157 General Appearance: alert EENT: normal ENT inspection Neck: supple Cardiovascular: normal rate Respiratory/Chest: decreased breath sounds Abdomen: normal bowel sounds, non tender, soft Extremities: non-tender Leonel Valderrama MD Feb 09, 2019 08:03
[2019-02-09] MEDS: Doxycycline Monohydrate 100mg ORAL SCH ×2 (08:53→20:53)
[2019-02-09] MEDS: Ascorbic Acid 500mg tab ORAL SCH ×2 (08:54→17:32)
[2019-02-09] MEDS: Midodrine 10mg tab NG SCH ×3 (08:54→18:27)
[2019-02-09] MEDS: Theophylline ER 100mg ORAL SCH (08:54)
[2019-02-09] MEDS: Pantoprazole Inj IVP SCH (08:54)
[2019-02-09] MEDS: Heparin 5000 units/ml inj SUBQ SCH (08:55)
[2019-02-09] MEDS: Memantine 5 MG TAB ORAL SCH (08:55)
--- NOTE | 2019-02-09 09:00 | NUR ---
NURSE NOTES: Pt repositioned, wound care performed. Medications administered. Pt in stable condition, no acute distress noted. Bed in lowest position, alarm on, side rails up x 2, will continue to monitor.
--- NOTE | 2019-02-09 10:12 | Pulmonolgy Critical Care Note ---
Critical Care - Asmt/Plan Problems: (1) Acute respiratory failure (2) Septic shock (3) Systolic heart failure (4) Chronic kidney disease (5) Malignant neoplasm of right kidney (6) COPD (chronic obstructive pulmonary disease) (7) Schizophrenia Respiratory: monitor respiratory rate, adjust FIO2, CXR Cardiac: continue pressors, continue to monitor HR/BP Renal: F/U I&O Infectious Disease: check cultures Gastrointestinal: continue feedings/current rate Endocrine: monitor blood sugar Neurologic: PRN Morphine, keep patient comfortable Prophylaxis: Heparin Time Spent (Minutes): 40 Notes Reviewed: cardio, renal Discussed with: nurses, consultants, case hardeneronline community manager - Objective Last 24 Hour Vital Signs Date Time Temp Pulse Resp B/P (MAP) Pulse Ox O2 Delivery O2 Flow Rate FiO2 02/09/19 10:00 61 18 129/60 (83) 93 02/09/19 09:30 56 29 91/51 (64) 90 02/09/19 09:00 70 22 100/63 (75) 85 02/09/19 08:30 69 19 100/63 (75) 89 02/09/19 08:00 130/33 02/09/19 08:00 63 02/09/19 08:00 104 30 130/33 (65) 82 02/09/19 08:00 Nasal Cannula 2.0 02/09/19 07:54 93 Room Air 21 02/09/19 07:30 72 21 130/33 (65) 90 02/09/19 07:00 119/59 02/09/19 07:00 98.1 48 26 119/59 (79) 99 02/09/19 06:02 62 16 121/57 (78) 96 02/09/19 06:00 121/57 02/09/19 05:05 98/52 02/09/19 05:00 98/52 02/09/19 05:00 52 21 98/52 (67) 100 02/09/19 04:00 64 02/09/19 04:00 142/75 02/09/19 04:00 97.8 61 22 142/75 (97) 100 02/09/19 04:00 Room Air 02/09/19 03:00 58 21 124/61 (82) 100 02/09/19 03:00 124/61 02/09/19 02:00 60 20 133/66 (88) 92 02/09/19 02:00 133/66 02/09/19 01:00 125/56 02/09/19 01:00 52 23 125/56 (79) 92 02/09/19 00:00 97.7 49 28 124/57 (79) 90 02/09/19 00:00 Room Air 02/09/19 00:00 124/57 02/09/19 00:00 51 02/08/19 23:00 115/58 02/08/19 23:00 58 23 115/58 (77) 89 02/08/19 22:00 112/53 02/08/19 22:00 67 22 112/53 (72) 92 02/08/19 21:00 58 18 95/70 (78) 89 02/08/19 21:00 95/70 02/08/19 20:00 54 02/08/19 20:00 109/48 02/08/19 20:00 Room Air 02/08/19 20:00 98.0 53 19 109/48 (68) 93 02/08/19 19:30 52 17 113/52 (72) 92 02/08/19 19:06 94 Room Air 21 02/08/19 19:06 51 19 94 Room Air 21 02/08/19 19:00 58 21 120/53 (75) 93 02/08/19 19:00 120/53 02/08/19 18:00 57 16 108/48 (68) 93 02/08/19 18:00 108/48 02/08/19 17:30 66 16 112/53 (72) 88 02/08/19 17:00 123/53 02/08/19 17:00 61 20 119/54 (75) 90 02/08/19 16:30 54 20 121/56 (77) 88 02/08/19 16:00 55 02/08/19 16:00 114/61 02/08/19 16:00 Room Air 02/08/19 16:00 97.6 56 21 114/61 (78) 88 02/08/19 15:30 60 19 111/61 (78) 93 02/08/19 15:00 115/56 02/08/19 15:00 56 15 116/56 (76) 88 02/08/19 14:30 73 16 105/53 (70) 86 02/08/19 14:00 123/60 02/08/19 14:00 57 18 116/87 (97) 89 02/08/19 14:00 69 17 123/60 (81) 87 02/08/19 13:30 60 21 130/63 (85) 90 02/08/19 13:00 62 22 140/72 (94) 92 02/08/19 13:00 130/63 02/08/19 12:30 53 22 136/58 (84) 90 02/08/19 12:00 98.2 66 23 132/60 (84) 90 02/08/19 12:00 130/50 02/08/19 12:00 Room Air 02/08/19 11:47 60 02/08/19 11:30 61 21 126/53 (77) 92 02/08/19 11:00 80 16 126/61 (82) 84 02/08/19 11:00 111/54 02/08/19 10:30 62 18 137/61 (86) 91 Status: awake Condition: critical HEENT: atraumatic Neck: full ROM Lungs: clear Heart: HR/BP unstable, other - still needs dopamin drip Abdomen: soft, non-tender Extremities: no C/C/E Accucheck: 133 Critical Care - Subjective ROS Limited/Unobtainable: Yes ICU Day: 16 Interval Events: refusing NG tube Condition: critical EKG Rhythm: Sinus Rhythm FI02: 21 Vent Support Breath Rate: 20 Vent Support Mode: CPAP Vent Tidal Volume: 500 Sputum Amount: None PEEP: 5.0 PIP: 13 Drips: dopamin drip I&O: Intake and Output 02/08/19 02/09/19 19:00 07:00 Intake Total 1466.012 ml 848.012 ml Output Total 1105 ml 1010 ml Balance 361.012 ml -161.988 ml IV Total 1348.012 ml 848.012 ml Other 118 ml Output Urine Total 1105 ml 1010 ml ET-Tube: 7.5 ET Position: 26 Labs: Laboratory Tests Test 02/08/19 16:55 02/09/19 03:30 Sodium Level 141 MMOL/L (136-145) 141 MMOL/L (136-145) Potassium Level 3.1 MMOL/L (3.5-5.1) L 3.3 MMOL/L (3.5-5.1) L Chloride Level 104 MMOL/L (98-107) 105 MMOL/L (98-107) Carbon Dioxide Level 30 MMOL/L (21-32) 30 MMOL/L (21-32) Anion Gap 7 mmol/L (5-15) 6 mmol/L (5-15) Blood Urea Nitrogen 13 mg/dL (7-18) 13 mg/dL (7-18) Creatinine 1.1 MG/DL (0.55-1.30) 1.0 MG/DL (0.55-1.30) Estimat Glomerular Filtration Rate > 60 mL/min (>60) > 60 mL/min (>60) Glucose Level 152 MG/DL (74-106) H 133 MG/DL (74-106) H Calcium Level 7.1 MG/DL (8.5-10.1) L 7.1 MG/DL (8.5-10.1) L Total Bilirubin 0.6 MG/DL (0.2-1.0) 0.7 MG/DL (0.2-1.0) Aspartate Amino Transf (AST/SGOT) 31 U/L (15-37) 32 U/L (15-37) Alanine Aminotransferase (ALT/SGPT) 42 U/L (12-78) 45 U/L (12-78) Alkaline Phosphatase 103 U/L (46-116) 99 U/L (46-116) Total Protein 5.8 G/DL (6.4-8.2) L 5.5 G/DL (6.4-8.2) L Albumin 2.0 G/DL (3.4-5.0) L 2.0 G/DL (3.4-5.0) L Globulin 3.8 g/dL 3.5 g/dL Albumin/Globulin Ratio 0.5 (1.0-2.7) L 0.6 (1.0-2.7) L White Blood Count 9.5 K/UL (4.8-10.8) Red Blood Count 3.77 M/UL (4.70-6.10) L Hemoglobin 11.5 G/DL (14.2-18.0) L Hematocrit 34.4 % (42.0-52.0) L Mean Corpuscular Volume 91 FL (80-99) Mean Corpuscular Hemoglobin 30.5 PG (27.0-31.0) Mean Corpuscular Hemoglobin Concent 33.4 G/DL (32.0-36.0) Red Cell Distribution Width 14.3 % (11.6-14.8) Platelet Count 74 K/UL (150-450) L Mean Platelet Volume 6.5 FL (6.5-10.1) Neutrophils (%) (Auto) % (45.0-75.0) Lymphocytes (%) (Auto) % (20.0-45.0) Monocytes (%) (Auto) % (1.0-10.0) Eosinophils (%) (Auto) % (0.0-3.0) Basophils (%) (Auto) % (0.0-2.0) Differential Total Cells Counted 100 Neutrophils % (Manual) 91 % (45-75) H Lymphocytes % (Manual) 5 % (20-45) L Monocytes % (Manual) 4 % (1-10) Eosinophils % (Manual) 0 % (0-3) Basophils % (Manual) 0 % (0-2) Band Neutrophils 0 % (0-8) Platelet Estimate Decreased L Platelet Morphology Normal Erythrocyte Sedimentation Rate 24 MM/HR (0-20) H Phosphorus Level 1.8 MG/DL (2.5-4.9) L Magnesium Level 1.9 MG/DL (1.8-2.4) C-Reactive Protein, Quantitative 3.4 mg/dL (0.00-0.90) H Ron Anthony MD Feb 09, 2019 10:12
--- NOTE | 2019-02-09 10:30 | NUR ---
NURSE NOTES: Dr. Valderrama came in to see pt and attempted NGT insertion however pt was combative and multiple insertion attempts failed. Per Dr. Valderrama, PEG insertion to be rescheduled. Platelet transfusion will also be rescheduled to be given on day of surgery per Dr. Izquierdo.
--- NOTE | 2019-02-09 10:34 | Infectious Diseases Prog Note ---
Assessment/Plan Assessment/Plan 68yo gentleman with PMH below presents with fever(100.1 is highest recorded in transfer packet) and worsened congestion from SNF. In the ED, pt was placed on oxygen then BiPAP but ultimately intubated. ID consulted for antimicrobial recommendation. Tmax 100.1 at [facility], SP Leukocytosis, hydrocortisone 01/25-02/02;' SP Lactic acidosis, SP Shock, was on levophed, titrated off, but now on dopamine Likely MRSA PNA COPD? CHF? thick secretions per nurse flu swab negative 01/24 CXR: Extensive opacities within upper lobes demonstrated. In addition there is generalized interstitial densities throughout both lung craig. 01/25 CXR: Bilateral infiltrates appear fairly extensive but unchanged. TTE with EF 30-35% 01/25 sputum cx: MRSA 01/25 urine legionella ag: P 01/27 CXR: Extensive infiltrates bilaterally. Some degree of a superimposed interstitial edema has improved since the last exam. Endotracheal tube and NG tube remain in satisfactory in position. 01/28 CXR: Extensive bilateral infiltrates are again demonstrated without change. Tubes and lines are stable. 01/28 sputum cx: MRSA 01/30 CXR: 1. Overall similar patchy opacities in the lungs, most prominently in the right upper lung and right mid and lower lung. Probable small bilateral pleural effusions. 2. Endotracheal tube terminates in the region of the lower thoracic aorta above the cristina. Enteric tube courses past the diaphragm and out of the [id number], but the sidehole is seen near the GE junction. 02/02 CXR: Interim removal of previously demonstrated nasogastric tube and endotracheal tube. Right arm PICC remains. Bilateral fairly extensive interstitial opacities persist, unchanged. There is a small left pleural effusion again demonstrated 02/04 CXR: Patchy interstitial prominence demonstrated bilaterally. Heart size is stable. 02/08 CXR: No significant change compared to the prior exam Possible UTI? new mcmahon placed in ED 01/25 UA 15-20 WBC 01/25 Ucx: NG Renal US: Nonobstructive stones in the left kidney demonstrated. Bilateral renal cysts. Limited evaluation due to body habitus. r/o bacteremia 01/25 BCx: ngtd 01/31 bcx: ngtd Failed Swallow evaluation 02/04 at risk for aspiration pneumonitis and pneumonia Thrombocytopenia No diarrhea HIV test negative MRSA screen positive RLE skin graft b/l LE heel pressure ulcers and sacral ulcer Tobacco abuse COPD HTN Kidney cancer OA CKD Anemia Schizophrenia PVD CHF Plan: Continue PO doxycycline 100mg bid #2 (abx d #12/24) for MRSA PNA given thrombocytopenia 02/01 SP Azithromycin #5/5 for atypicals 01/31 Ertapenem #8 01/31 DC Amikacin and vancomycin #6 SP cefepime #1 SP flagyl #1 SP vancomycin #1 aspiration precaution, elevate HOB, oral care, frequent suction pulmonary toilet, chest PT DVT PPX discussed with RN Thank you for this consult. [facility] will continue to follow the patient with you. Subjective Allergies: Coded Allergies: No Known Allergies (Unverified , 01/24/19) Subjective afebrile no leukocytosis Objective Vital Signs Last 24 Hour Vital Signs Date Time Temp Pulse Resp B/P (MAP) Pulse Ox O2 Delivery O2 Flow Rate FiO2 02/09/19 10:00 61 18 129/60 (83) 93 02/09/19 10:00 129/60 02/09/19 09:30 56 29 91/51 (64) 90 02/09/19 09:00 100/63 02/09/19 09:00 70 22 100/63 (75) 85 02/09/19 08:30 69 19 100/63 (75) 89 02/09/19 08:00 130/33 02/09/19 08:00 63 02/09/19 08:00 104 30 130/33 (65) 82 02/09/19 08:00 Nasal Cannula 2.0 02/09/19 07:54 93 Room Air 21 02/09/19 07:30 72 21 130/33 (65) 90 02/09/19 07:00 119/59 02/09/19 07:00 98.1 48 26 119/59 (79) 99 02/09/19 06:02 62 16 121/57 (78) 96 02/09/19 06:00 121/57 02/09/19 05:05 98/52 02/09/19 05:00 98/52 02/09/19 05:00 52 21 98/52 (67) 100 02/09/19 04:00 64 02/09/19 04:00 142/75 02/09/19 04:00 97.8 61 22 142/75 (97) 100 11/26/19 04:00 Room Air 02/09/19 03:00 58 21 124/61 (82) 100 02/09/19 03:00 124/61 02/09/19 02:00 60 20 133/66 (88) 92 02/09/19 02:00 133/66 02/09/19 01:00 125/56 02/09/19 01:00 52 23 125/56 (79) 92 02/09/19 00:00 97.7 49 28 124/57 (79) 90 02/09/19 00:00 Room Air 02/09/19 00:00 124/57 02/09/19 00:00 51 02/08/19 23:00 115/58 02/08/19 23:00 58 23 115/58 (77) 89 02/08/19 22:00 112/53 02/08/19 22:00 67 22 112/53 (72) 92 02/08/19 21:00 58 18 95/70 (78) 89 02/08/19 21:00 95/70 02/08/19 20:00 54 02/08/19 20:00 109/48 02/08/19 20:00 Room Air 02/08/19 20:00 98.0 53 19 109/48 (68) 93 02/08/19 19:30 52 17 113/52 (72) 92 02/08/19 19:06 94 Room Air 21 02/08/19 19:06 51 19 94 Room Air 21 02/08/19 19:00 58 21 120/53 (75) 93 02/08/19 19:00 120/53 02/08/19 18:00 57 16 108/48 (68) 93 02/08/19 18:00 108/48 02/08/19 17:30 66 16 112/53 (72) 88 02/08/19 17:00 123/53 02/08/19 17:00 61 20 119/54 (75) 90 02/08/19 16:30 54 20 121/56 (77) 88 02/08/19 16:00 55 02/08/19 16:00 114/61 02/08/19 16:00 Room Air 02/08/19 16:00 97.6 56 21 114/61 (78) 88 02/08/19 15:30 60 19 111/61 (78) 93 02/08/19 15:00 115/56 02/08/19 15:00 56 15 116/56 (76) 88 02/08/19 14:30 73 16 105/53 (70) 86 02/08/19 14:00 123/60 02/08/19 14:00 57 18 116/87 (97) 89 02/08/19 14:00 69 17 123/60 (81) 87 02/08/19 13:30 60 21 130/63 (85) 90 02/08/19 13:00 62 22 140/72 (94) 92 02/08/19 13:00 130/63 02/08/19 12:30 53 22 136/58 (84) 90 02/08/19 12:00 98.2 66 23 132/60 (84) 90 02/08/19 12:00 130/50 02/08/19 12:00 Room Air 02/08/19 11:47 60 02/08/19 11:30 61 21 126/53 (77) 92 02/08/19 11:00 80 16 126/61 (82) 84 02/08/19 11:00 111/54 Height (Feet): 5 Height (Inches): 7.00 Weight (Pounds): 157 Objective Gen: NAD HEENT: anicteric sclera. CV: RRR. Resp: coarse. equal chest rise. Abd: soft. normoactive Bs+ Neuro: awake. appropriate Skin: RLE skin graft Laboratory Tests Test 02/08/19 16:55 02/09/19 03:30 Sodium Level 141 MMOL/L (136-145) 141 MMOL/L (136-145) Potassium Level 3.1 MMOL/L (3.5-5.1) L 3.3 MMOL/L (3.5-5.1) L Chloride Level 104 MMOL/L (98-107) 105 MMOL/L (98-107) Carbon Dioxide Level 30 MMOL/L (21-32) 30 MMOL/L (21-32) Anion Gap 7 mmol/L (5-15) 6 mmol/L (5-15) Blood Urea Nitrogen 13 mg/dL (7-18) 13 mg/dL (7-18) Creatinine 1.1 MG/DL (0.55-1.30) 1.0 MG/DL (0.55-1.30) Estimat Glomerular Filtration Rate > 60 mL/min (>60) > 60 mL/min (>60) Glucose Level 152 MG/DL (74-106) H 133 MG/DL (74-106) H Calcium Level 7.1 MG/DL (8.5-10.1) L 7.1 MG/DL (8.5-10.1) L Total Bilirubin 0.6 MG/DL (0.2-1.0) 0.7 MG/DL (0.2-1.0) Aspartate Amino Transf (AST/SGOT) 31 U/L (15-37) 32 U/L (15-37) Alanine Aminotransferase (ALT/SGPT) 42 U/L (12-78) 45 U/L (12-78) Alkaline Phosphatase 103 U/L (46-116) 99 U/L (46-116) Total Protein 5.8 G/DL (6.4-8.2) L 5.5 G/DL (6.4-8.2) L Albumin 2.0 G/DL (3.4-5.0) L 2.0 G/DL (3.4-5.0) L Globulin 3.8 g/dL 3.5 g/dL Albumin/Globulin Ratio 0.5 (1.0-2.7) L 0.6 (1.0-2.7) L White Blood Count 9.5 K/UL (4.8-10.8) Red Blood Count 3.77 M/UL (4.70-6.10) L Hemoglobin 11.5 G/DL (14.2-18.0) L Hematocrit 34.4 % (42.0-52.0) L Mean Corpuscular Volume 91 FL (80-99) Mean Corpuscular Hemoglobin 30.5 PG (27.0-31.0) Mean Corpuscular Hemoglobin Concent 33.4 G/DL (32.0-36.0) Red Cell Distribution Width 14.3 % (11.6-14.8) Platelet Count 74 K/UL (150-450) L Mean Platelet Volume 6.5 FL (6.5-10.1) Neutrophils (%) (Auto) % (45.0-75.0) Lymphocytes (%) (Auto) % (20.0-45.0) Monocytes (%) (Auto) % (1.0-10.0) Eosinophils (%) (Auto) % (0.0-3.0) Basophils (%) (Auto) % (0.0-2.0) Differential Total Cells Counted 100 Neutrophils % (Manual) 91 % (45-75) H Lymphocytes % (Manual) 5 % (20-45) L Monocytes % (Manual) 4 % (1-10) Eosinophils % (Manual) 0 % (0-3) Basophils % (Manual) 0 % (0-2) Band Neutrophils 0 % (0-8) Platelet Estimate Decreased L Platelet Morphology Normal Erythrocyte Sedimentation Rate 24 MM/HR (0-20) H Phosphorus Level 1.8 MG/DL (2.5-4.9) L Magnesium Level 1.9 MG/DL (1.8-2.4) C-Reactive Protein, Quantitative 3.4 mg/dL (0.00-0.90) H Current Medications Medications (Trade) Dose Ordered Sig/Ricardo Route PRN Reason Start Time Stop Time Status Last Admin Dose Admin Acetaminophen (Tylenol) 650 mg Q4H PRN ORAL fever 01/24/19 20:00 02/23/19 19:59 Acetaminophen (Tylenol) 650 mg Q4H PRN ORAL Mild Pain (Pain Scale 1-3) 02/09/19 07:15 02/09/19 14:00 Ascorbic Acid (Vitamin C) 250 mg TWICE A DAY ORAL 01/27/19 18:00 02/26/19 17:59 02/09/19 08:54 Atropine Sulfate (Atropine) 0.5 mg Q5M PRN IV bpm less than 45 02/09/19 07:15 02/09/19 14:00 Chlorhexidine Gluconate (Roseanna-Hex 2%) 1 applic DAILY@2000 TOPIC 02/07/19 20:00 03/09/19 19:59 02/08/19 19:39 Dextrose (Dextrose 50%) 25 ml Q30M PRN IV Hypoglycemia 01/25/19 19:00 02/24/19 18:59 Dextrose (Dextrose 50%) 50 ml Q30M PRN IV Hypoglycemia 01/25/19 19:00 02/24/19 18:59 Dextrose/ Electrolytes 1,000 ml @ 50 mls/hr Q20H IV 02/09/19 17:00 03/11/19 16:59 Diphenhydramine HCl (Benadryl) 25 mg Q15M PRN IVP Itching 02/09/19 07:15 02/09/19 14:00 Dopamine HCl/ Dextrose 250 ml @ 0 mls/hr Q24H IV 02/06/19 06:00 03/08/19 05:59 02/09/19 05:05 Doxycycline Monohydrate (Doxycycline Monohydrate) 100 mg EVERY 12 HOURS ORAL 02/08/19 21:00 02/15/19 20:59 02/09/19 08:53 Fentanyl Citrate (Sublimaze 100 mcg/2 mL) 25 mcg Q10M PRN IV Moderate Pain (Pain Scale 4-6) 02/09/19 07:15 02/09/19 14:00 Hydralazine HCl (Apresoline) 5 mg Q30M PRN IV SBP>160 OR___/DBP>90 OR___ 02/09/19 07:15 02/09/19 14:00 Hydrocortisone (Solu-CORTEF) 100 mg EVERY 8 HOURS IV 02/05/19 22:00 03/07/19 21:59 02/09/19 05:51 Insulin Aspart (NovoLOG) EVERY 6 HOURS SUBQ 01/26/19 00:00 02/25/19 00:00 02/08/19 12:15 Lidocaine HCl (Xylocaine 1% 30ml) 30 ml ONCE PRN INJ picc line placement 02/07/19 18:45 02/09/19 18:44 Memantine (Namenda) 5 mg DAILY ORAL 02/04/19 09:00 03/06/19 08:59 02/09/19 08:55 Midodrine (Pro-Amatine) 10 mg THREE TIMES A DAY NG 02/04/19 18:00 03/01/19 12:59 02/09/19 08:54 Polyethylene Glycol (Miralax) 17 gm DAILYPRN PRN ORAL Constipation 01/24/19 20:00 02/23/19 19:59 02/01/19 05:47 Potassium Phosphate 30 mm/ Sodium Chloride 285 ml @ 47.5 mls/hr ONCE ONCE IV 02/09/19 11:00 02/09/19 16:59 Potassium Chloride (K-Dur) 40 meq TWICE A DAY NG 01/27/19 11:45 02/26/19 11:44 02/09/19 08:54 Quetiapine Fumarate (SEROqueL) 25 mg QHS ORAL 02/03/19 21:00 03/05/19 20:59 02/08/19 20:50 Sodium Chloride 1,000 ml @ 10 mls/hr Q24H IVLG 02/09/19 07:08 02/09/19 14:00 Lesli Michaels M.D. Feb 09, 2019 10:34
[2019-02-09] MEDS ORDERED: Potassium Phosphate 30 MM in NS 275 ML IV ONE (11:00)
--- NOTE | 2019-02-09 11:40 | Surgery Progress Note ---
Surgery Progress Note Subjective Additional Comments no acute events comfortable no n/v/f/c labs noted pending PEG decision Objective Last 24 Hour Vital Signs Date Time Temp Pulse Resp B/P (MAP) Pulse Ox O2 Delivery O2 Flow Rate FiO2 02/09/19 11:00 61 16 131/67 (88) 92 02/09/19 10:30 68 19 127/59 (81) 91 02/09/19 10:00 61 18 129/60 (83) 93 02/09/19 10:00 129/60 02/09/19 09:30 56 29 91/51 (64) 90 02/09/19 09:00 100/63 02/09/19 09:00 70 22 100/63 (75) 85 02/09/19 08:30 69 19 100/63 (75) 89 02/09/19 08:00 130/33 02/09/19 08:00 63 02/09/19 08:00 104 30 130/33 (65) 82 02/09/19 08:00 Nasal Cannula 2.0 02/09/19 07:54 93 Room Air 21 02/09/19 07:30 72 21 130/33 (65) 90 02/09/19 07:00 119/59 02/09/19 07:00 98.1 48 26 119/59 (79) 99 02/09/19 06:02 62 16 121/57 (78) 96 02/09/19 06:00 121/57 02/09/19 05:05 98/52 02/09/19 05:00 98/52 02/09/19 05:00 52 21 98/52 (67) 100 02/09/19 04:00 64 02/09/19 04:00 142/75 02/09/19 04:00 97.8 61 22 142/75 (97) 100 02/09/19 04:00 Room Air 02/09/19 03:00 58 21 124/61 (82) 100 02/09/19 03:00 124/61 02/09/19 02:00 60 20 133/66 (88) 92 02/09/19 02:00 133/66 02/09/19 01:00 125/56 02/09/19 01:00 52 23 125/56 (79) 92 02/09/19 00:00 97.7 49 28 124/57 (79) 90 02/09/19 00:00 Room Air 02/09/19 00:00 124/57 02/09/19 00:00 51 02/08/19 23:00 115/58 02/08/19 23:00 58 23 115/58 (77) 89 02/08/19 22:00 112/53 02/08/19 22:00 67 22 112/53 (72) 92 02/08/19 21:00 58 18 95/70 (78) 89 02/08/19 21:00 95/70 02/08/19 20:00 54 02/08/19 20:00 109/48 02/08/19 20:00 Room Air 02/08/19 20:00 98.0 53 19 109/48 (68) 93 02/08/19 19:30 52 17 113/52 (72) 92 02/08/19 19:06 94 Room Air 21 02/08/19 19:06 51 19 94 Room Air 21 02/08/19 19:00 58 21 120/53 (75) 93 02/08/19 19:00 120/53 02/08/19 18:00 57 16 108/48 (68) 93 02/08/19 18:00 108/48 02/08/19 17:30 66 16 112/53 (72) 88 02/08/19 17:00 123/53 02/08/19 17:00 61 20 119/54 (75) 90 02/08/19 16:30 54 20 121/56 (77) 88 02/08/19 16:00 55 02/08/19 16:00 114/61 02/08/19 16:00 Room Air 02/08/19 16:00 97.6 56 21 114/61 (78) 88 02/08/19 15:30 60 19 111/61 (78) 93 02/08/19 15:00 115/56 02/08/19 15:00 56 15 116/56 (76) 88 02/08/19 14:30 73 16 105/53 (70) 86 02/08/19 14:00 123/60 02/08/19 14:00 57 18 116/87 (97) 89 02/08/19 14:00 69 17 123/60 (81) 87 02/08/19 13:30 60 21 130/63 (85) 90 02/08/19 13:00 62 22 140/72 (94) 92 02/08/19 13:00 130/63 02/08/19 12:30 53 22 136/58 (84) 90 02/08/19 12:00 98.2 66 23 132/60 (84) 90 02/08/19 12:00 130/50 02/08/19 12:00 Room Air 02/08/19 11:47 60 I&O Intake and Output 02/08/19 02/09/19 18:59 06:59 Intake Total 1466.012 ml 848.012 ml Output Total 1205 ml 1010 ml Balance 261.012 ml -161.988 ml IV Total 1348.012 ml 848.012 ml Other 118 ml Output Urine Total 1205 ml 1010 ml Dressing: other Wound: other Drains: other Cardiovascular: RSR Respiratory: decreased breath sounds Abdomen: soft, present bowel sounds, non-distended Extremities: no cyanosis Laboratory Tests Test 02/08/19 16:55 02/09/19 03:30 Sodium Level 141 MMOL/L (136-145) 141 MMOL/L (136-145) Potassium Level 3.1 MMOL/L (3.5-5.1) L 3.3 MMOL/L (3.5-5.1) L Chloride Level 104 MMOL/L (98-107) 105 MMOL/L (98-107) Carbon Dioxide Level 30 MMOL/L (21-32) 30 MMOL/L (21-32) Anion Gap 7 mmol/L (5-15) 6 mmol/L (5-15) Blood Urea Nitrogen 13 mg/dL (7-18) 13 mg/dL (7-18) Creatinine 1.1 MG/DL (0.55-1.30) 1.0 MG/DL (0.55-1.30) Estimat Glomerular Filtration Rate > 60 mL/min (>60) > 60 mL/min (>60) Glucose Level 152 MG/DL (74-106) H 133 MG/DL (74-106) H Calcium Level 7.1 MG/DL (8.5-10.1) L 7.1 MG/DL (8.5-10.1) L Total Bilirubin 0.6 MG/DL (0.2-1.0) 0.7 MG/DL (0.2-1.0) Aspartate Amino Transf (AST/SGOT) 31 U/L (15-37) 32 U/L (15-37) Alanine Aminotransferase (ALT/SGPT) 42 U/L (12-78) 45 U/L (12-78) Alkaline Phosphatase 103 U/L (46-116) 99 U/L (46-116) Total Protein 5.8 G/DL (6.4-8.2) L 5.5 G/DL (6.4-8.2) L Albumin 2.0 G/DL (3.4-5.0) L 2.0 G/DL (3.4-5.0) L Globulin 3.8 g/dL 3.5 g/dL Albumin/Globulin Ratio 0.5 (1.0-2.7) L 0.6 (1.0-2.7) L White Blood Count 9.5 K/UL (4.8-10.8) Red Blood Count 3.77 M/UL (4.70-6.10) L Hemoglobin 11.5 G/DL (14.2-18.0) L Hematocrit 34.4 % (42.0-52.0) L Mean Corpuscular Volume 91 FL (80-99) Mean Corpuscular Hemoglobin 30.5 PG (27.0-31.0) Mean Corpuscular Hemoglobin Concent 33.4 G/DL (32.0-36.0) Red Cell Distribution Width 14.3 % (11.6-14.8) Platelet Count 74 K/UL (150-450) L Mean Platelet Volume 6.5 FL (6.5-10.1) Neutrophils (%) (Auto) % (45.0-75.0) Lymphocytes (%) (Auto) % (20.0-45.0) Monocytes (%) (Auto) % (1.0-10.0) Eosinophils (%) (Auto) % (0.0-3.0) Basophils (%) (Auto) % (0.0-2.0) Differential Total Cells Counted 100 Neutrophils % (Manual) 91 % (45-75) H Lymphocytes % (Manual) 5 % (20-45) L Monocytes % (Manual) 4 % (1-10) Eosinophils % (Manual) 0 % (0-3) Basophils % (Manual) 0 % (0-2) Band Neutrophils 0 % (0-8) Platelet Estimate Decreased L Platelet Morphology Normal Erythrocyte Sedimentation Rate 24 MM/HR (0-20) H Phosphorus Level 1.8 MG/DL (2.5-4.9) L Magnesium Level 1.9 MG/DL (1.8-2.4) C-Reactive Protein, Quantitative 3.4 mg/dL (0.00-0.90) H Plan Problems: (1) Sepsis Assessment & Plan: afebrile, HD improving HR -noted cardiology input leukocytosis lactic acidosis resolved slowly improving -IV abx as per ID -trend labs -swallow eval not ready so wait until once more responsive plan for trial swallow again next week if cont to fail will discuss with team about peg as currently he is fairly alert discussed with GI. reviewed bioethics Neuro eval for dementia -will follow with recs thank you (2) Septic shock (3) Wound, open Assessment & Plan: Patient presented on admission with multiple pressure injuries being identified. Non-blanching erythema without induration noted to sacrum ,Right and Left buttocks. Scattered areas that are darker and maroon in color noted within base of wound. Scrotum is also erythematous. Unstageable pressure injury noted to Left heel. Base of wound is 100% necrotic but soft. Erythematous margins with surrounding non-blanching erythema.(L)3.2cm x (W)3cm. no drainage Right heel is boggy with non-blanching erythema.. Keloid scar noted distal R tibia. Partial thickness ulcer noted to dorsal R foot. Base of wound is moist and viable. Small amt serous exudate noted. Scattered small dry scabs noted to dorsal R foot. Tx.Plan: Swab Dorsal R foot and R heel with Betadine. Cover with Optifoam drsg. Change every 3 days and prn. Apply Moisture Barrier Paste to buttocks. Cover sacrum with Optifoam drsg. Change every 3 days and prn. Apply Cavilon Skin Barrier to L heel.Cover with Optifoam drsg. Change every 7 days and prn. APM/JELLY mattress. Reposition at least every 2hours or as tolerated. Off-load heels with pillow. Nutritional Optimization Will monitor while in critical condition DAILY ESTIMATED NEEDS: Needs based on Critical care, sepsis, wounds 69kg 22-30 kcals/kg 4105-2394 total kcals 1.25-2 g protein/kg 86-138 g total protein 25-30 mL/kg 1765-9266 total fluid mLs NUTRITION DIAGNOSIS: Increased kcal and pro needs r/t sepsis, wound healing, and underweight status as evidenced by pt w respiratory distress now intubated, critically elev WBC (*29.7), elev BG (200's), w/ multiple wounds (refer to eval), pt is @88% if [place] Body Weight. CURRENT TF: Glucerna 1.2 @30ml ENTERAL NUTRITION RECOMMENDATIONS: VITAL AF 1.2 @60ml/hr x24 hrs to provide 1440ml, 1728 kcal, 108g pro, 1168ml free H2O - WITH HEMODYNAMIC STABILITY, rec TF change to VITAL 1.2 to better meet est needs. Start @20ml/hr for 6 hrs. Advance as tolerated 10ml/hr q4-6 hrs to goal. - Flush per MD. HOB over 30 degrees If pt remains on pressor support, rec trophic feeds of Vital 1.2 @5-10ml/hr to maintain gut integrity. ------ ADDITIONAL RECOMMENDATIONS: 1) Per SNF: HT 71 inches, 152 lbs (69.1kg) 2) Wound care: Add DANIELA in 4oz water BID via OGT + VIT C 250mg BID (f/up w/ WC specialist) 3) Monitor lytes daily, replete as needed 4) Daily calibrated bed scale wts Mauricio Anne Feb 09, 2019 11:40
--- NOTE | 2019-02-09 12:08 | Nephrology Progress Note ---
Assessment/Plan Problem List: (1) Renal failure (ARF), acute on chronic (2) Acute respiratory failure (3) Septic shock (4) Bradyarrhythmia Assessment Renal failure- Likely acute on Chronic- Cr lower Acute respiratory failure- intubated on Vent Septic Shock- On pressors COPD PVD Schizophrenia Plan NGT out K and Phos IV Now ( 02/02) extubated- tolerating well pulmonary support aim to taper dopamine stop IV fluid renal dose dopamin for low HR K supplement down on hydration One dose IV Lasix mag and Phos and K supplement as needed 2D Echo Low Ej Fx - Global Hypokinesis Avoid nephrotoxics afterload reduction monitor renal parameters urine studies ADRIAN IMPRESSION: Nonobstructive stones in the left kidney demonstrated. Bilateral renal cysts. Subjective ROS Limited/Unobtainable: No Constitutional: Reports: malaise, weakness Objective Objective Last 24 Hour Vital Signs Date Time Temp Pulse Resp B/P (MAP) Pulse Ox O2 Delivery O2 Flow Rate FiO2 02/09/19 11:00 61 16 131/67 (88) 92 02/09/19 10:30 68 19 127/59 (81) 91 02/09/19 10:00 61 18 129/60 (83) 93 02/09/19 10:00 129/60 02/09/19 09:30 56 29 91/51 (64) 90 02/09/19 09:00 100/63 02/09/19 09:00 70 22 100/63 (75) 85 02/09/19 08:30 69 19 100/63 (75) 89 02/09/19 08:00 130/33 02/09/19 08:00 63 02/09/19 08:00 104 30 130/33 (65) 82 02/09/19 08:00 Nasal Cannula 2.0 02/09/19 07:54 93 Room Air 21 02/09/19 07:30 72 21 130/33 (65) 90 02/09/19 07:00 119/59 02/09/19 07:00 98.1 48 26 119/59 (79) 99 02/09/19 06:02 62 16 121/57 (78) 96 02/09/19 06:00 121/57 02/09/19 05:05 98/52 02/09/19 05:00 98/52 02/09/19 05:00 52 21 98/52 (67) 100 02/09/19 04:00 64 02/09/19 04:00 142/75 02/09/19 04:00 97.8 61 22 142/75 (97) 100 02/09/19 04:00 Room Air 02/09/19 03:00 58 21 124/61 (82) 100 02/09/19 03:00 124/61 02/09/19 02:00 60 20 133/66 (88) 92 02/09/19 02:00 133/66 02/09/19 01:00 125/56 02/09/19 01:00 52 23 125/56 (79) 92 02/09/19 00:00 97.7 49 28 124/57 (79) 90 02/09/19 00:00 Room Air 02/09/19 00:00 124/57 02/09/19 00:00 51 02/08/19 23:00 115/58 02/08/19 23:00 58 23 115/58 (77) 89 02/08/19 22:00 112/53 02/08/19 22:00 67 22 112/53 (72) 92 02/08/19 21:00 58 18 95/70 (78) 89 02/08/19 21:00 95/70 02/08/19 20:00 54 02/08/19 20:00 109/48 02/08/19 20:00 Room Air 02/08/19 20:00 98.0 53 19 109/48 (68) 93 02/08/19 19:30 52 17 113/52 (72) 92 02/08/19 19:06 94 Room Air 21 02/08/19 19:06 51 19 94 Room Air 21 02/08/19 19:00 58 21 120/53 (75) 93 02/08/19 19:00 120/53 02/08/19 18:00 57 16 108/48 (68) 93 02/08/19 18:00 108/48 02/08/19 17:30 66 16 112/53 (72) 88 02/08/19 17:00 123/53 02/08/19 17:00 61 20 119/54 (75) 90 02/08/19 16:30 54 20 121/56 (77) 88 02/08/19 16:00 55 02/08/19 16:00 114/61 11/25/19 16:00 Room Air 02/08/19 16:00 97.6 56 21 114/61 (78) 88 02/08/19 15:30 60 19 111/61 (78) 93 02/08/19 15:00 115/56 02/08/19 15:00 56 15 116/56 (76) 88 02/08/19 14:30 73 16 105/53 (70) 86 02/08/19 14:00 123/60 02/08/19 14:00 57 18 116/87 (97) 89 02/08/19 14:00 69 17 123/60 (81) 87 02/08/19 13:30 60 21 130/63 (85) 90 02/08/19 13:00 62 22 140/72 (94) 92 02/08/19 13:00 130/63 02/08/19 12:30 53 22 136/58 (84) 90 Intake and Output 02/08/19 02/09/19 19:00 07:00 Intake Total 1466.012 ml 848.012 ml Output Total 1105 ml 1010 ml Balance 361.012 ml -161.988 ml IV Total 1348.012 ml 848.012 ml Other 118 ml Output Urine Total 1105 ml 1010 ml Laboratory Tests 02/08/19 16:55: Sodium Level 141, Potassium Level 3.1L, Chloride Level 104, Carbon Dioxide Level 30, Anion Gap 7, Blood Urea Nitrogen 13, Creatinine 1.1, Estimat Glomerular Filtration Rate > 60, Glucose Level 152H, Calcium Level 7.1L, Total Bilirubin 0.6, Aspartate Amino Transf (AST/SGOT) 31, Alanine Aminotransferase ( ALT/SGPT) 42, Alkaline Phosphatase 103, Total Protein 5.8L, Albumin 2.0L, Globulin 3.8, Albumin/Globulin Ratio 0.5L 02/09/19 03:30: Sodium Level 141, Potassium Level 3.3L, Chloride Level 105, Carbon Dioxide Level 30, Anion Gap 6, Blood Urea Nitrogen 13, Creatinine 1.0, Estimat Glomerular Filtration Rate > 60, Glucose Level 133H, Calcium Level 7.1L, Total Bilirubin 0.7, Aspartate Amino Transf (AST/SGOT) 32, Alanine Aminotransferase ( ALT/SGPT) 45, Alkaline Phosphatase 99, Total Protein 5.5L, Albumin 2.0L, Globulin 3.5, Albumin/Globulin Ratio 0.6L, White Blood Count 9.5, Red Blood Count 3.77L, Hemoglobin 11.5L, Hematocrit 34.4L, Mean Corpuscular Volume 91, Mean Corpuscular Hemoglobin 30.5, Mean Corpuscular Hemoglobin Concent 33.4, Red Cell Distribution Width 14.3, Platelet Count 74L, Mean Platelet Volume 6.5, Neutrophils (%) (Auto) , Lymphocytes (%) (Auto) , Monocytes (%) (Auto) , Eosinophils (%) (Auto) , Basophils (%) (Auto) , Differential Total Cells Counted 100, Neutrophils % (Manual) 91H, Lymphocytes % (Manual) 5L, Monocytes % (Manual) 4, Eosinophils % (Manual) 0, Basophils % (Manual) 0, Band Neutrophils 0 , Platelet Estimate DecreasedL, Platelet Morphology Normal, Erythrocyte Sedimentation Rate 24H, Phosphorus Level 1.8L, Magnesium Level 1.9, C-Reactive Protein, Quantitative 3.4H Height (Feet): 5 Height (Inches): 7.00 Weight (Pounds): 157 Cardiovascular: normal rate Respiratory/Chest: decreased breath sounds Abdomen: soft Bienvenido Gonzalez MD Feb 09, 2019 12:08
--- NOTE | 2019-02-09 12:36 | NUR ---
NURSE NOTES: Venous duplex performed and results relayed to Dr. Anthony and Dr. Izquierdo. Pt positive for acute DVT in left superficial femoral vein. Per Dr. Anthony, pt is candidate for IVC filter. Dr. Frost informed. No new orders at this time. Pt is asleep in no acute distress.
--- NOTE | 2019-02-09 13:33 | Consultation ---
History of Present Illness General Chief Complaint: Dyspnea/Respdistress Referring physician: MARLEN MANE Reason for Consultation: TF INTOLERANCE/PEG EVALUATION Present Illness Allergies: Coded Allergies: No Known Allergies (Unverified , 01/24/19) Medication History Scheduled Ascorbic Acid* (Vitamin C*), 500 MG ORAL DAILY, (Reported) Clopidogrel Bisulfate* (Plavix*), 75 MG ORAL DAILY, (Reported) Cyanocobalamin (Vitamin B-12) (Vitamin B-12), 1,000 MCG PO DAILY, (Reported) Docusate Sodium* (Docusate Sodium*), 100 MG ORAL DAILY, (Reported) Donepezil Hcl* (Aricept*), 5 MG ORAL DAILY, (Reported) Enoxaparin* (Lovenox*), 40 MG SUBQ DAILY, (Reported) Ferrous Sulfate* (Ferrous Sulfate*), 325 MG ORAL DAILY, (Reported) Gabapentin* (Neurontin*), 300 MG ORAL THREE TIMES A DAY, (Reported) Lactulose (Lactulose*), 30 ML ORAL DAILY, (Reported) Lidocaine Patch* (Lidoderm Patch*), 1 PATCH TOPIC DAILY, (Reported) Multivitamin With Minerals (Multivitamins With Minerals*), 1 TAB ORAL DAILY, ( Reported) Pantoprazole* (Protonix*), 40 MG ORAL DAILY, (Reported) Quetiapine Fumarate* (Seroquel*), 100 MG ORAL TWICE A DAY, (Reported) Quetiapine Fumarate* (Seroquel*), 200 MG ORAL QHS, (Reported) Sennosides (Senna), 2 TAB PO QHS, (Reported) Zinc Sulfate (Zinc Sulfate*), 220 MG ORAL DAILY, (Reported) Scheduled PRN Acetaminophen* (Acetaminophen 325MG Tablet*), 650 MG ORAL Q4H PRN for Mild Pain/ Temp > 100.5, (Reported) Bisacodyl (Dulcolax), 10 MG RC PRN PRN for IF MOM INEFFECTIVE, (Reported) Hydrocodone Bit/Acetaminophen 5-325* ([place] 5-325*), 1 TAB ORAL Q4H PRN for Severe Pain (Pain Scale 7-10), (Reported) Magnesium Hydroxide* (Milk Of Magnesia*), 30 ML ORAL DAILY PRN for Constipation, (Reported) Na Phos,M-B/Na Phos,Di-Ba* (Fleet Enema*), 133 ML RECTAL DAILY PRN for IF DULCOLAX INEFFECTIVE, (Reported) Patient History Healthcare decision maker Self Resuscitation status Full Code Advanced Directive on File No Physical Exam Last 24 Hour Vital Signs Date Time Temp Pulse Resp B/P (MAP) Pulse Ox O2 Delivery O2 Flow Rate FiO2 02/09/19 12:30 54 20 119/51 (73) 91 02/09/19 12:00 58 02/09/19 12:00 50 22 112/49 (70) 90 02/09/19 12:00 112/49 02/09/19 12:00 Room Air 02/09/19 11:30 61 17 114/48 (70) 92 02/09/19 11:00 61 16 131/67 (88) 92 02/09/19 11:00 131/67 02/09/19 10:30 68 19 127/59 (81) 91 02/09/19 10:00 61 18 129/60 (83) 93 02/09/19 10:00 129/60 02/09/19 09:30 56 29 91/51 (64) 90 02/09/19 09:00 100/63 02/09/19 09:00 70 22 100/63 (75) 85 02/09/19 08:30 69 19 100/63 (75) 89 02/09/19 08:00 130/33 02/09/19 08:00 63 02/09/19 08:00 104 30 130/33 (65) 82 02/09/19 08:00 Nasal Cannula 2.0 02/09/19 07:54 93 Room Air 21 02/09/19 07:30 72 21 130/33 (65) 90 02/09/19 07:00 119/59 02/09/19 07:00 98.1 48 26 119/59 (79) 99 02/09/19 06:02 62 16 121/57 (78) 96 02/09/19 06:00 121/57 02/09/19 05:05 98/52 02/09/19 05:00 98/52 02/09/19 05:00 52 21 98/52 (67) 100 02/09/19 04:00 64 02/09/19 04:00 142/75 02/09/19 04:00 97.8 61 22 142/75 (97) 100 02/09/19 04:00 Room Air 02/09/19 03:00 58 21 124/61 (82) 100 02/09/19 03:00 124/61 02/09/19 02:00 60 20 133/66 (88) 92 02/09/19 02:00 133/66 02/09/19 01:00 125/56 02/09/19 01:00 52 23 125/56 (79) 92 02/09/19 00:00 97.7 49 28 124/57 (79) 90 02/09/19 00:00 Room Air 02/09/19 00:00 124/57 02/09/19 00:00 51 02/08/19 23:00 115/58 02/08/19 23:00 58 23 115/58 (77) 89 02/08/19 22:00 112/53 02/08/19 22:00 67 22 112/53 (72) 92 02/08/19 21:00 58 18 95/70 (78) 89 02/08/19 21:00 95/70 02/08/19 20:00 54 02/08/19 20:00 109/48 02/08/19 20:00 Room Air 02/08/19 20:00 98.0 53 19 109/48 (68) 93 02/08/19 19:30 52 17 113/52 (72) 92 02/08/19 19:06 94 Room Air 21 02/08/19 19:06 51 19 94 Room Air 21 02/08/19 19:00 58 21 120/53 (75) 93 02/08/19 19:00 120/53 02/08/19 18:00 57 16 108/48 (68) 93 02/08/19 18:00 108/48 02/08/19 17:30 66 16 112/53 (72) 88 02/08/19 17:00 123/53 02/08/19 17:00 61 20 119/54 (75) 90 02/08/19 16:30 54 20 121/56 (77) 88 02/08/19 16:00 55 02/08/19 16:00 114/61 02/08/19 16:00 Room Air 02/08/19 16:00 97.6 56 21 114/61 (78) 88 11/25/19 15:30 60 19 111/61 (78) 93 02/08/19 15:00 115/56 02/08/19 15:00 56 15 116/56 (76) 88 02/08/19 14:30 73 16 105/53 (70) 86 02/08/19 14:00 123/60 02/08/19 14:00 57 18 116/87 (97) 89 02/08/19 14:00 69 17 123/60 (81) 87 Intake and Output 02/08/19 02/09/19 19:00 07:00 Intake Total 1466.012 ml 848.012 ml Output Total 1105 ml 1010 ml Balance 361.012 ml -161.988 ml IV Total 1348.012 ml 848.012 ml Other 118 ml Output Urine Total 1105 ml 1010 ml Laboratory Tests Test 02/08/19 16:55 02/09/19 03:30 Sodium Level 141 MMOL/L (136-145) 141 MMOL/L (136-145) Potassium Level 3.1 MMOL/L (3.5-5.1) L 3.3 MMOL/L (3.5-5.1) L Chloride Level 104 MMOL/L (98-107) 105 MMOL/L (98-107) Carbon Dioxide Level 30 MMOL/L (21-32) 30 MMOL/L (21-32) Anion Gap 7 mmol/L (5-15) 6 mmol/L (5-15) Blood Urea Nitrogen 13 mg/dL (7-18) 13 mg/dL (7-18) Creatinine 1.1 MG/DL (0.55-1.30) 1.0 MG/DL (0.55-1.30) Estimat Glomerular Filtration Rate > 60 mL/min (>60) > 60 mL/min (>60) Glucose Level 152 MG/DL (74-106) H 133 MG/DL (74-106) H Calcium Level 7.1 MG/DL (8.5-10.1) L 7.1 MG/DL (8.5-10.1) L Total Bilirubin 0.6 MG/DL (0.2-1.0) 0.7 MG/DL (0.2-1.0) Aspartate Amino Transf (AST/SGOT) 31 U/L (15-37) 32 U/L (15-37) Alanine Aminotransferase (ALT/SGPT) 42 U/L (12-78) 45 U/L (12-78) Alkaline Phosphatase 103 U/L (46-116) 99 U/L (46-116) Total Protein 5.8 G/DL (6.4-8.2) L 5.5 G/DL (6.4-8.2) L Albumin 2.0 G/DL (3.4-5.0) L 2.0 G/DL (3.4-5.0) L Globulin 3.8 g/dL 3.5 g/dL Albumin/Globulin Ratio 0.5 (1.0-2.7) L 0.6 (1.0-2.7) L White Blood Count 9.5 K/UL (4.8-10.8) Red Blood Count 3.77 M/UL (4.70-6.10) L Hemoglobin 11.5 G/DL (14.2-18.0) L Hematocrit 34.4 % (42.0-52.0) L Mean Corpuscular Volume 91 FL (80-99) Mean Corpuscular Hemoglobin 30.5 PG (27.0-31.0) Mean Corpuscular Hemoglobin Concent 33.4 G/DL (32.0-36.0) Red Cell Distribution Width 14.3 % (11.6-14.8) Platelet Count 74 K/UL (150-450) L Mean Platelet Volume 6.5 FL (6.5-10.1) Neutrophils (%) (Auto) % (45.0-75.0) Lymphocytes (%) (Auto) % (20.0-45.0) Monocytes (%) (Auto) % (1.0-10.0) Eosinophils (%) (Auto) % (0.0-3.0) Basophils (%) (Auto) % (0.0-2.0) Differential Total Cells Counted 100 Neutrophils % (Manual) 91 % (45-75) H Lymphocytes % (Manual) 5 % (20-45) L Monocytes % (Manual) 4 % (1-10) Eosinophils % (Manual) 0 % (0-3) Basophils % (Manual) 0 % (0-2) Band Neutrophils 0 % (0-8) Platelet Estimate Decreased L Platelet Morphology Normal Erythrocyte Sedimentation Rate 24 MM/HR (0-20) H Phosphorus Level 1.8 MG/DL (2.5-4.9) L Magnesium Level 1.9 MG/DL (1.8-2.4) C-Reactive Protein, Quantitative 3.4 mg/dL (0.00-0.90) H Height (Feet): 5 Height (Inches): 7.00 Weight (Pounds): 157 Medications Current Medications Medications (Trade) Dose Ordered Sig/Ricardo Route PRN Reason Start Time Stop Time Status Last Admin Dose Admin Acetaminophen (Tylenol) 650 mg Q4H PRN ORAL fever 01/24/19 20:00 02/23/19 19:59 Ascorbic Acid (Vitamin C) 250 mg TWICE A DAY ORAL 01/27/19 18:00 02/26/19 17:59 02/09/19 08:54 Chlorhexidine Gluconate (Roseanna-Hex 2%) 1 applic DAILY@2000 TOPIC 02/07/19 20:00 03/09/19 19:59 02/08/19 19:39 Dextrose (Dextrose 50%) 25 ml Q30M PRN IV Hypoglycemia 01/25/19 19:00 02/24/19 18:59 Dextrose (Dextrose 50%) 50 ml Q30M PRN IV Hypoglycemia 01/25/19 19:00 02/24/19 18:59 Dextrose/ Electrolytes 1,000 ml @ 50 mls/hr Q20H IV 02/09/19 17:00 03/11/19 16:59 Dopamine HCl/ Dextrose 250 ml @ 0 mls/hr Q24H IV 02/06/19 06:00 03/08/19 05:59 02/09/19 05:05 Doxycycline Monohydrate (Doxycycline Monohydrate) 100 mg EVERY 12 HOURS ORAL 02/08/19 21:00 02/15/19 20:59 02/09/19 08:53 Hydrocortisone (Solu-CORTEF) 100 mg EVERY 8 HOURS IV 02/05/19 22:00 03/07/19 21:59 02/09/19 05:51 Insulin Aspart (NovoLOG) EVERY 6 HOURS SUBQ 01/26/19 00:00 02/25/19 00:00 02/08/19 12:15 Lidocaine HCl (Xylocaine 1% 30ml) 30 ml ONCE PRN INJ picc line placement 02/07/19 18:45 02/09/19 18:44 Memantine (Namenda) 5 mg DAILY ORAL 02/04/19 09:00 03/06/19 08:59 02/09/19 08:55 Midodrine (Pro-Amatine) 10 mg THREE TIMES A DAY NG 02/04/19 18:00 03/01/19 12:59 02/09/19 08:54 Polyethylene Glycol (Miralax) 17 gm DAILYPRN PRN ORAL Constipation 01/24/19 20:00 02/23/19 19:59 02/01/19 05:47 Potassium Phosphate 30 mm/ Sodium Chloride 285 ml @ 47.5 mls/hr ONCE ONCE IV 02/09/19 11:00 02/09/19 16:59 02/09/19 10:39 Potassium Chloride (K-Dur) 40 meq TWICE A DAY NG 01/27/19 11:45 02/26/19 11:44 02/09/19 08:54 Quetiapine Fumarate (SEROqueL) 25 mg QHS ORAL 02/03/19 21:00 03/05/19 20:59 02/08/19 20:50 Assessment/Plan Assessment/Plan: Hematology Consultation Note Referring physician: MARLEN MANE Reason for Consultation: THROMBOCYTOPENIA AND DVT EVAL DOS 02/09/19 HPI 68-year-old male sent in by private ambulance after increased congestion and fever. Patient a prior history of COPD. He was noted to have increased temperature as well as increased difficulty with respirations. He had been previously hospitalized at [facility]. He is noted to have some COPD. History is limited by patient's mental status. GI consulted for reported tube feeding intolerance versus PEG evaluation. ROS limited, patient seen in ICU, has now been extubated. With ng tube, noticed at this time to have developed low platelets that have downtrended over last few days and hematology service was consulted. US reviewed and shows: Negative for gallstones or dilated bile ducts Coarsened hepatic echogenicity, may indicate hepatocellular disease, Limited exam, with nonvisualization the pancreas, suboptimal visualization of the aorta and spleen. Incidental finding bilateral renal cysts. Smear reviewed. Home Meds Reported Medications Acetaminophen* (ACETAMINOPHEN 325MG TABLET*) 325 Mg Tablet, 650 MG ORAL Q4H PRN for Mild Pain/Temp > 100.5, TAB 01/27/19 Quetiapine Fumarate* (SEROQUEL*) 200 Mg Tablet, 200 MG ORAL QHS, TAB 01/27/19 Quetiapine Fumarate* (SEROQUEL*) 100 Mg Tablet, 100 MG ORAL TWICE A DAY, TAB 01/27/19 Sennosides (SENNA) 8.6 Mg Tablet, 2 TAB PO QHS, TAB 01/27/19 Cyanocobalamin (Vitamin B-12) (VITAMIN B-12) 1,000 Mcg Tablet, 1000 MCG PO DAILY , TAB 01/27/19 Hydrocodone Bit/Acetaminophen 5-325* ([place] 5-325*) 1 Each Tablet, 1 TAB ORAL Q4H PRN for Severe Pain (Pain Scale 7-10), TAB 01/27/19 Magnesium Hydroxide* (MILK OF MAGNESIA*) 400 Mg/5 Ml Oral.susp, 30 ML ORAL DAILY PRN for Constipation, ML 01/27/19 Multivitamin With Minerals (MULTIVITAMINS WITH MINERALS*) 1 Each Tablet, 1 TAB ORAL DAILY, TAB 01/27/19 Lactulose (LACTULOSE*) 20 Gm/30 Ml Solution, 30 ML ORAL DAILY, ML 0 Refills 01/27/19 Na Phos,M-B/Na Phos,Di-Ba* (FLEET ENEMA*) 133 Ml Enema, 133 ML RECTAL DAILY PRN for IF DULCOLAX INEFFECTIVE, ML 0 Refills 01/27/19 Bisacodyl (DULCOLAX) 10 Mg Supp.rect, 10 MG RC PRN PRN for IF MOM INEFFECTIVE, SUPP 01/27/19 Docusate Sodium* (DOCUSATE SODIUM*) 100 Mg Capsule, 100 MG ORAL DAILY, CAP 01/27/19 Clopidogrel Bisulfate* (PLAVIX*) 75 Mg Tablet, 75 MG ORAL DAILY, TAB 01/24/19 Ferrous Sulfate* (FERROUS SULFATE*) 325 Mg Tablet, 325 MG ORAL DAILY, #30 TAB 0 Refills 01/24/19 Zinc Sulfate (ZINC SULFATE*) 220 Mg Capsule, 220 MG ORAL DAILY, CAP 0 Refills 01/24/19 Donepezil Hcl* (ARICEPT*) 5 Mg Tablet, 5 MG ORAL DAILY, TAB 01/24/19 Gabapentin* (NEURONTIN*) 100 Mg Capsule, 300 MG ORAL THREE TIMES A DAY, CAP 0 Refills 01/24/19 Lidocaine Patch* (Lidoderm Patch*) 1 Each Adh..patch, 1 PATCH TOPIC DAILY, PATCH 0 Refills Patch(es) may remain in place for up to 12 hours in any 24-hour period. 01/24/19 Pantoprazole* (PROTONIX*) 40 Mg Tablet.dr, 40 MG ORAL DAILY, TAB 01/24/19 Ascorbic Acid* (VITAMIN C*) 500 Mg Tablet, 500 MG ORAL DAILY, #30 TAB 0 Refills 01/24/19 Enoxaparin* (LOVENOX*) 40 Mg/0.4 Ml Inj, 40 MG SUBQ DAILY 01/24/19 Discontinued Reported Medications Multivitamins* (MULTIVITAMINS*) 1 Each Tablet, 1 TAB ORAL DAILY, TAB 0 Refills 01/24/19 Cyanocobalamin (Vitamin B-12)* (VITAMIN B-12*) 500 Mcg Tablet, 1000 MCG ORAL QHS , #30 TAB 0 Refills 01/24/19 Med list reviewed/reconciled: Yes Allergies: Coded Allergies: No Known Allergies (Unverified , 01/24/19) Patient History Limited by: medical condition History Provided By: Medical Record PMH Narrative Past Medical History: see triage record Reviewed Nursing Documentation: PMH: Agreed; PSxH: Agreed Past Medical History: No History, Except For Hx Cardiac Problems: No - Anemia Hx Hypertension: Yes Hx COPD: Yes Hx Cancer: Yes - Hx Kidney CA, Hx Dialysis: No - Chronic Renal Disease Hx Neurological Problems: No - Osteoarthritis Review of Systems All Other Systems: limited Physical Exam Vital Signs noted Head: normocephalic EENT: normal ENT inspection Neck: supple Respiratory: normal breath sounds Cardiovascular: normal rate Gastrointestinal: soft Rectal: deferred Neurologic: alert, responsive Labs: noted Imaging: noted Assessment and Recs: # Thrombocytopenia - potential causes multifactorial, evaluate liver and viral etiologies to begin, us abd shows Coarsened hepatic echogenicity, may indicate hepatocellular disease, INr also high, also may be related to sepsis, recovery --> Hep panel and HIV ordered --> US abd does show some coarsened liver, query cirrhosis, Inr also high --> Peripheral smear ordered to evaluate for blasts /schistocytes --> abx and other meds have been reviewed --> ok for ppx if plt >50k w/ either heparin or lovenox --> Transfuse if Plt < 20k and fever, or if Plt < 10k without fever # Dvt of the lower left superficial femoral vein with low platelets --> ordered ivc filter, as per pulm--> at this time, contraindicated for anticoagulants --> obtain consent --> no further heparin # Dysphagia, necessitating ng and peg --> ng unsuccesful --> as per gi, pending peg with consent # Septic shock with multiple infection --> on abx per id # Resp failure s/p intubation --> extubated 02/02 # COPD # PVD # Schizophrenia # Cardiomyopathy # Dvt ppx scds, needs ivcf DW Rn and appreciate consultation. Med Izquierdo MD Feb 09, 2019 13:33
--- NOTE | 2019-02-09 13:38 | NUR ---
HAND-OFF: Report given to EUGENIA Malhotra . Pt in stable condition.
--- NOTE | 2019-02-09 13:40 | NUR ---
NURSE NOTES: Received the patient from EUGENIA Cooper. Patient is awake, aox1, confused, able to follow some commands. SB in 50s noted on cardiac cath technician. Patient on 2L O2 via NC. No distress noted. right upper arm PICC line intact, dressing intact, asymptomatic. Dopamine gtt running at 1.717mcg/kg/min and Kphos running at 47.5ml/hr via JONATHAN PICC. Costello cath intact, draining yellow urine by gravity. Patient kept NPO. Wound dressings intact, clean and dry. Bed in lowest position, locked, side rails upx3. Bed alarm on. Call light within reach. Will continue to monitor.
--- NOTE | 2019-02-09 14:30 | Progress Note ---
DATE: 02/09/2019 SUBJECTIVE: This is a 68-year-old patient with sepsis and dehydration. This patient is in the ICU. Continues to have sepsis and dehydration causing him to have altered mental status, confusion, disorganized thought process, so that is why his attending has requested daily psychiatric consultation. MENTAL STATUS EXAMINATION: This is a 68-year-old male. Appearance is disheveled. Attitude, irritable and agitated. Affect, guarded and restricted. Intellect, poor. Mood, depressed and anxious. Motor activity, psychomotor agitation. Attention span is poor. Orientation x2. Speech is low volume, slurred. Thought process, disorganized and illogical. Insight and judgment is poor. DIAGNOSIS: Paranoid schizophrenia with acute exacerbation. PLAN: Continue treatment with medications to stabilize his mood. 20 minutes of behavioral management provided. Chart reviewed. Discussed with staff. Seen and assessed in his room. Stacie Paige M.D. DR: CELINE JOB#: [id number] CC:
--- NOTE | 2019-02-09 14:44 | Cardiology Progress Note ---
Assessment/Plan Assessment/Plan 1. Septic syndrome. 2. Respiratory failure now extubated 3. Pneumonia. 4. Schizophrenia and dementia. 5. Urinary tract infection. 6. Renal failure. 7. Hypoalbuminemia/malnutrition. 8. Sinus tachycardia secondary to above resolved 9. Left ventricular systolic dysfunction. 10. sinus alanna cxr reviewed personally 02/09 renal fxn improved tele sinus / alanna on dopamine but "renal dose" only avoid any neg chronotropic agents , sinus alanna only no pauses on tele bp seem fien he seems awake and responsive and is aware he is at a hospital but not oriented to year or city he indicates he is hungry he has removed his NGT unfortunetely maybe beign considered for peg placment Subjective Cardiovascular: Denies: chest pain, lightheadedness Gastrointestinal/Abdominal: Reports: other - hungry Genitourinary: Denies: no symptoms Objective Last 24 Hour Vital Signs Date Time Temp Pulse Resp B/P (MAP) Pulse Ox O2 Delivery O2 Flow Rate FiO2 02/09/19 14:00 51 20 114/52 (72) 90 02/09/19 13:30 57 17 112/48 (69) 93 02/09/19 13:00 115/55 02/09/19 13:00 97.5 60 15 115/55 (75) 93 02/09/19 12:30 54 20 119/51 (73) 91 02/09/19 12:00 58 02/09/19 12:00 50 22 112/49 (70) 90 02/09/19 12:00 112/49 02/09/19 12:00 Room Air 02/09/19 11:30 61 17 114/48 (70) 92 02/09/19 11:00 61 16 131/67 (88) 92 02/09/19 11:00 131/67 02/09/19 10:30 68 19 127/59 (81) 91 02/09/19 10:00 61 18 129/60 (83) 93 02/09/19 10:00 129/60 02/09/19 09:30 56 29 91/51 (64) 90 02/09/19 09:00 100/63 02/09/19 09:00 70 22 100/63 (75) 85 02/09/19 08:30 69 19 100/63 (75) 89 02/09/19 08:00 130/33 02/09/19 08:00 63 02/09/19 08:00 104 30 130/33 (65) 82 02/09/19 08:00 Nasal Cannula 2.0 02/09/19 07:54 93 Room Air 21 02/09/19 07:30 72 21 130/33 (65) 90 02/09/19 07:00 119/59 02/09/19 07:00 98.1 48 26 119/59 (79) 99 02/09/19 06:02 62 16 121/57 (78) 96 02/09/19 06:00 121/57 02/09/19 05:05 98/52 02/09/19 05:00 98/52 02/09/19 05:00 52 21 98/52 (67) 100 02/09/19 04:00 64 02/09/19 04:00 142/75 02/09/19 04:00 97.8 61 22 142/75 (97) 100 02/09/19 04:00 Room Air 02/09/19 03:00 58 21 124/61 (82) 100 02/09/19 03:00 124/61 02/09/19 02:00 60 20 133/66 (88) 92 02/09/19 02:00 133/66 02/09/19 01:00 125/56 02/09/19 01:00 52 23 125/56 (79) 92 02/09/19 00:00 97.7 49 28 124/57 (79) 90 02/09/19 00:00 Room Air 02/09/19 00:00 124/57 02/09/19 00:00 51 02/08/19 23:00 115/58 02/08/19 23:00 58 23 115/58 (77) 89 02/08/19 22:00 112/53 02/08/19 22:00 67 22 112/53 (72) 92 02/08/19 21:00 58 18 95/70 (78) 89 02/08/19 21:00 95/70 02/08/19 20:00 54 02/08/19 20:00 109/48 02/08/19 20:00 Room Air 02/08/19 20:00 98.0 53 19 109/48 (68) 93 02/08/19 19:30 52 17 113/52 (72) 92 02/08/19 19:06 94 Room Air 21 02/08/19 19:06 51 19 94 Room Air 21 02/08/19 19:00 58 21 120/53 (75) 93 02/08/19 19:00 120/53 02/08/19 18:00 57 16 108/48 (68) 93 02/08/19 18:00 108/48 02/08/19 17:30 66 16 112/53 (72) 88 02/08/19 17:00 123/53 02/08/19 17:00 61 20 119/54 (75) 90 02/08/19 16:30 54 20 121/56 (77) 88 02/08/19 16:00 55 02/08/19 16:00 114/61 02/08/19 16:00 Room Air 02/08/19 16:00 97.6 56 21 114/61 (78) 88 02/08/19 15:30 60 19 111/61 (78) 93 02/08/19 15:00 115/56 02/08/19 15:00 56 15 116/56 (76) 88 General Appearance: no apparent distress, alert, other - communicative , follwos aiyana e simple commnad , he indicates he is hungry , oriented to "hospital " but nto to year or city Intake and Output 02/08/19 02/09/19 18:59 06:59 Intake Total 1466.012 ml 848.012 ml Output Total 1205 ml 1010 ml Balance 261.012 ml -161.988 ml IV Total 1348.012 ml 848.012 ml Other 118 ml Output Urine Total 1205 ml 1010 ml Laboratory Tests Test 02/08/19 16:55 02/09/19 03:30 Sodium Level 141 MMOL/L (136-145) 141 MMOL/L (136-145) Potassium Level 3.1 MMOL/L (3.5-5.1) L 3.3 MMOL/L (3.5-5.1) L Chloride Level 104 MMOL/L (98-107) 105 MMOL/L (98-107) Carbon Dioxide Level 30 MMOL/L (21-32) 30 MMOL/L (21-32) Anion Gap 7 mmol/L (5-15) 6 mmol/L (5-15) Blood Urea Nitrogen 13 mg/dL (7-18) 13 mg/dL (7-18) Creatinine 1.1 MG/DL (0.55-1.30) 1.0 MG/DL (0.55-1.30) Estimat Glomerular Filtration Rate > 60 mL/min (>60) > 60 mL/min (>60) Glucose Level 152 MG/DL (74-106) H 133 MG/DL (74-106) H Calcium Level 7.1 MG/DL (8.5-10.1) L 7.1 MG/DL (8.5-10.1) L Total Bilirubin 0.6 MG/DL (0.2-1.0) 0.7 MG/DL (0.2-1.0) Aspartate Amino Transf (AST/SGOT) 31 U/L (15-37) 32 U/L (15-37) Alanine Aminotransferase (ALT/SGPT) 42 U/L (12-78) 45 U/L (12-78) Alkaline Phosphatase 103 U/L (46-116) 99 U/L (46-116) Total Protein 5.8 G/DL (6.4-8.2) L 5.5 G/DL (6.4-8.2) L Albumin 2.0 G/DL (3.4-5.0) L 2.0 G/DL (3.4-5.0) L Globulin 3.8 g/dL 3.5 g/dL Albumin/Globulin Ratio 0.5 (1.0-2.7) L 0.6 (1.0-2.7) L White Blood Count 9.5 K/UL (4.8-10.8) Red Blood Count 3.77 M/UL (4.70-6.10) L Hemoglobin 11.5 G/DL (14.2-18.0) L Hematocrit 34.4 % (42.0-52.0) L Mean Corpuscular Volume 91 FL (80-99) Mean Corpuscular Hemoglobin 30.5 PG (27.0-31.0) Mean Corpuscular Hemoglobin Concent 33.4 G/DL (32.0-36.0) Red Cell Distribution Width 14.3 % (11.6-14.8) Platelet Count 74 K/UL (150-450) L Mean Platelet Volume 6.5 FL (6.5-10.1) Neutrophils (%) (Auto) % (45.0-75.0) Lymphocytes (%) (Auto) % (20.0-45.0) Monocytes (%) (Auto) % (1.0-10.0) Eosinophils (%) (Auto) % (0.0-3.0) Basophils (%) (Auto) % (0.0-2.0) Differential Total Cells Counted 100 Neutrophils % (Manual) 91 % (45-75) H Lymphocytes % (Manual) 5 % (20-45) L Monocytes % (Manual) 4 % (1-10) Eosinophils % (Manual) 0 % (0-3) Basophils % (Manual) 0 % (0-2) Band Neutrophils 0 % (0-8) Platelet Estimate Decreased L Platelet Morphology Normal Erythrocyte Sedimentation Rate 24 MM/HR (0-20) H Phosphorus Level 1.8 MG/DL (2.5-4.9) L Magnesium Level 1.9 MG/DL (1.8-2.4) C-Reactive Protein, Quantitative 3.4 mg/dL (0.00-0.90) H Sammy Helm MD Feb 09, 2019 14:44
[2019-02-09 15:00] LABS: INR 1.2 (0.9-1.1)
--- NOTE | 2019-02-09 15:00 | NUR ---
NURSE NOTES: Dopamine decreased to 3ml/hr. Patient resting in bed comfortably.
--- NOTE | 2019-02-09 15:35 | NUR ---
NURSE NOTES: Patient seen by Dr. Helm. Notified MD of SB-SR 50s-70s. Patient on Dopamine gtt at 4ml/hr. Per MD, okay to dc by titrating down by 1ml/hr every 1hr.
--- NOTE | 2019-02-09 16:17 | NUR ---
WEEKLY SWALLOW/SPEECH THERAPY SUMMARY: PATIENT SEEN FOR DYSPHAGIA, SEE SWALLOW EVAL AND MOD BARIUM SWALLOW STUDY. PATIENT NON-COMPLIANT IN ALLOWING FOR PLACEMENT OF NGT. SEEN BY BIOETHICS MD. AWAITING CONSENT FOR PEG POST CONSULT WITH NEUROLOGIST. PLAN: F/UP WITH DYSPHAGIA MANAGEMENT AND TX POST PEG PLACEMENT CONTINUE WITH ORAL CARE D/W STAFF AND PATIENT
--- NOTE | 2019-02-09 17:18 | NUR ---
NURSE NOTES: Spoke with Neurologist, Dr. Aguiar to f/u with new consultation. to see the patient tomorrow in am.
[2019-02-09] MEDS: D5 1/2NS w/KCl 40meq 1000ml 1,000 ML IV SCH (17:32)
--- NOTE | 2019-02-09 18:15 | NUR ---
NURSE NOTES: Called Dr. Helm and informed MD that patient noted with SB, HR dropped to 40, patient is asymptomatic. HR increases to 60s-70s when pt was stimulated. Per MD, still okay to dc dopamine as long as patient has Sinus alanna. dopamine turned off. Patient asleep, easily arousable.
--- NOTE | 2019-02-09 19:30 | NUR ---
HAND-OFF: Report given to EUGENIA Rao.
--- NOTE | 2019-02-09 19:50 | NUR ---
NURSE NOTES: PATIENT ALERT, ORIENTED TO NAME AND PLACE BUT COULD NOT RECALL HOSPITAL NAME, FOLLOWED COMMANDS, RESPIRATION REGULAR, [place], COUGH WITH WHITISH DISCHARGE, O2 SATURATION OVER 92% ON ROOM AIR, DENIED SOB OR DISTRESS, ABDOMEN SOFT, HYPERACTIVE BOWEL SOUND TO 4 QUADRANTS, NO BOWEL MOVEMENT STATUS, F/C INTACT AND PATENT, YELLOW URINE OUTED GRAVITY, PICC LINE TO RIGHT UPPER ARM, INTACT AND PATENT, ONGOING IV FLUID D5W 1/2NS W/KCL 40MEQ AT 50ML/HR VIA PICC LINE, ON P200 BED, ON BED ALARM AND LOCKED, MADE LOWER BED POSITION, PROVIDED CALL LIGHT WITHIN REACH, WILL CONTINUE TO MONITOR.
[2019-02-09] MEDS: Dyna-Hex 2% Top Sol 2oz TOPIC SCH (19:52)
--- NOTE | 2019-02-09 21:31 | NUR ---
NURSE NOTES: HEART RATE 39-42/MIN SB WAS NOTED AT 2128PM AND GOES BACT TO 50'S/MIN SINUS AGUILAR STATUS, PATIENT AWOKE, DENIED CHEST PAIN OR DISCOMFORT, WILL CONTINUE TO MONITOR.
--- NOTE | 2019-02-09 21:32 | General Progress Note ---
Assessment/Plan Problem List: (1) COPD (chronic obstructive pulmonary disease) ICD Codes: J44.9 - Chronic obstructive pulmonary disease, unspecified SNOMED: 13725314 Qualifiers: Qualified Codes: J44.9 - Chronic obstructive pulmonary disease, unspecified (2) DM (diabetes mellitus) ICD Codes: E11.9 - Type 2 diabetes mellitus without complications SNOMED: 00057920 (3) Thrombocytopenia ICD Codes: D69.6 - Thrombocytopenia, unspecified SNOMED: 935305957 (4) Sepsis ICD Codes: A41.9 - Sepsis, unspecified organism SNOMED: 59545169 Qualifiers: Qualified Codes: A41.9 - Sepsis, unspecified organism (5) Wound, open ICD Codes: T14.8XXA - Other injury of unspecified body region, initial encounter SNOMED: 141937341 (6) Chronic kidney disease ICD Codes: N18.9 - Chronic kidney disease, unspecified SNOMED: 406794872 (7) Malignant neoplasm of right kidney ICD Codes: C64.1 - Malignant neoplasm of right kidney, except renal pelvis SNOMED: 211632856 (8) PVD (peripheral vascular disease) ICD Codes: I73.9 - Peripheral vascular disease, unspecified SNOMED: 423436129 (9) Schizophrenia ICD Codes: F20.9 - Schizophrenia, unspecified SNOMED: 97590932 (10) Acute respiratory failure ICD Codes: J96.00 - Acute respiratory failure, unspecified whether with hypoxia or hypercapnia SNOMED: 15706019 (11) Septic shock ICD Codes: A41.9 - Sepsis, unspecified organism; R65.21 - Severe sepsis with septic shock SNOMED: 38918182 (12) Systolic heart failure ICD Codes: I50.20 - Unspecified systolic (congestive) heart failure SNOMED: 627248641 (13) Renal failure (ARF), acute on chronic ICD Codes: N17.9 - Acute kidney failure, unspecified; N18.9 - Chronic kidney disease, unspecified SNOMED: 947852114 (14) Bradyarrhythmia ICD Codes: I49.8 - Other specified cardiac arrhythmias SNOMED: 878280816 (15) Dysphagia ICD Codes: R13.10 - Dysphagia, unspecified SNOMED: 42287037, 434333458 (16) Encounter for PEG (percutaneous endoscopic gastrostomy) ICD Codes: Z43.1 - Encounter for attention to gastrostomy SNOMED: 037114096, 540507690 (17) cardiomyopathy with EF of 35% Status: stable, progressing, unchanged Assessment/Plan: tachy alanna syndrome afebrile azotemia chf vitals stable Subjective ROS Limited/Unobtainable: Yes Allergies: Coded Allergies: No Known Allergies (Unverified , 01/24/19) Objective Last 24 Hour Vital Signs Date Time Temp Pulse Resp B/P (MAP) Pulse Ox O2 Delivery O2 Flow Rate FiO2 02/09/19 21:00 48 19 109/60 (76) 94 02/09/19 20:00 97.5 54 22 116/49 (71) 93 02/09/19 20:00 Room Air 02/09/19 19:30 63 21 97/53 (68) 93 02/09/19 19:00 63 18 107/52 (70) 94 02/09/19 18:30 67 17 106/52 (70) 95 02/09/19 18:15 98/53 02/09/19 18:00 47 22 98/53 (68) 97 02/09/19 17:30 49 22 97/48 (64) 92 02/09/19 17:00 53 18 97/55 (69) 99 02/09/19 17:00 97/55 02/09/19 16:30 61 17 102/46 (64) 98 02/09/19 16:00 Room Air 02/09/19 16:00 68 02/09/19 16:00 114/47 02/09/19 16:00 97.5 60 18 114/47 (69) 92 02/09/19 15:30 55 18 104/45 (64) 93 02/09/19 15:00 65 29 105/47 (66) 93 02/09/19 15:00 105/47 02/09/19 14:30 78 25 102/44 (63) 92 02/09/19 14:00 51 20 114/52 (72) 90 02/09/19 14:00 114/52 02/09/19 13:30 57 17 112/48 (69) 93 02/09/19 13:00 115/55 02/09/19 13:00 97.5 60 15 115/55 (75) 93 02/09/19 12:30 54 20 119/51 (73) 91 02/09/19 12:00 58 02/09/19 12:00 50 22 112/49 (70) 90 02/09/19 12:00 112/49 02/09/19 12:00 Room Air 02/09/19 11:30 61 17 114/48 (70) 92 02/09/19 11:00 61 16 131/67 (88) 92 02/09/19 11:00 131/67 02/09/19 10:30 68 19 127/59 (81) 91 02/09/19 10:00 61 18 129/60 (83) 93 02/09/19 10:00 129/60 02/09/19 09:30 56 29 91/51 (64) 90 02/09/19 09:00 100/63 02/09/19 09:00 70 22 100/63 (75) 85 02/09/19 08:30 69 19 100/63 (75) 89 02/09/19 08:00 130/33 02/09/19 08:00 63 02/09/19 08:00 104 30 130/33 (65) 82 02/09/19 08:00 Nasal Cannula 2.0 02/09/19 07:54 93 Room Air 21 02/09/19 07:30 72 21 130/33 (65) 90 02/09/19 07:00 119/59 02/09/19 07:00 98.1 48 26 119/59 (79) 99 02/09/19 06:02 62 16 121/57 (78) 96 02/09/19 06:00 121/57 02/09/19 05:05 98/52 02/09/19 05:00 98/52 02/09/19 05:00 52 21 98/52 (67) 100 02/09/19 04:00 64 02/09/19 04:00 142/75 02/09/19 04:00 97.8 61 22 142/75 (97) 100 02/09/19 04:00 Room Air 02/09/19 03:00 58 21 124/61 (82) 100 02/09/19 03:00 124/61 02/09/19 02:00 60 20 133/66 (88) 92 02/09/19 02:00 133/66 02/09/19 01:00 125/56 02/09/19 01:00 52 23 125/56 (79) 92 02/09/19 00:00 97.7 49 28 124/57 (79) 90 02/09/19 00:00 Room Air 02/09/19 00:00 124/57 02/09/19 00:00 51 02/08/19 23:00 115/58 02/08/19 23:00 58 23 115/58 (77) 89 02/08/19 22:00 112/53 02/08/19 22:00 67 22 112/53 (72) 92 Intake and Output 02/08/19 02/09/19 19:00 07:00 Intake Total 1466.012 ml 848.012 ml Output Total 1105 ml 1010 ml Balance 361.012 ml -161.988 ml IV Total 1348.012 ml 848.012 ml Other 118 ml Output Urine Total 1105 ml 1010 ml Laboratory Tests 02/09/19 03:30: White Blood Count 9.5, Red Blood Count 3.77L, Hemoglobin 11.5L, Hematocrit 34.4L , Mean Corpuscular Volume 91, Mean Corpuscular Hemoglobin 30.5, Mean Corpuscular Hemoglobin Concent 33.4, Red Cell Distribution Width 14.3, Platelet Count 74L, Mean Platelet Volume 6.5, Neutrophils (%) (Auto) , Lymphocytes (%) ( Auto) , Monocytes (%) (Auto) , Eosinophils (%) (Auto) , Basophils (%) (Auto) , Differential Total Cells Counted 100, Neutrophils % (Manual) 91H, Lymphocytes % (Manual) 5L, Monocytes % (Manual) 4, Eosinophils % (Manual) 0, Basophils % ( Manual) 0, Band Neutrophils 0, Platelet Estimate DecreasedL, Platelet Morphology Normal, Erythrocyte Sedimentation Rate 24H, Sodium Level 141, Potassium Level 3.3L, Chloride Level 105, Carbon Dioxide Level 30, Anion Gap 6, Blood Urea Nitrogen 13, Creatinine 1.0, Estimat Glomerular Filtration Rate > 60 , Glucose Level 133H, Calcium Level 7.1L, Phosphorus Level 1.8L, Magnesium Level 1.9, Total Bilirubin 0.7, Aspartate Amino Transf (AST/SGOT) 32, Alanine Aminotransferase (ALT/SGPT) 45, Alkaline Phosphatase 99, C-Reactive Protein, Quantitative 3.4H, Total Protein 5.5L, Albumin 2.0L, Globulin 3.5, Albumin/ Globulin Ratio 0.6L 02/09/19 14:30: Prothrombin Time 12.5H, Prothromb Time International Ratio 1.2H, Hepatitis A IgM Antibody [Pending], Hepatitis B Surface Antigen [Pending], Hepatitis B Core IgM Antibody [Pending], Hepatitis C Antibody [Pending] Height (Feet): 5 Height (Inches): 7.00 Weight (Pounds): 157 Cardiovascular: normal rate Respiratory/Chest: chest wall non-tender Tomeka Holloway MD Feb 09, 2019 21:32
[2019-02-10] VITALS (27 sets, daily range): BP systolic 73–138; BP diastolic 44–93
--- NOTE | 2019-02-10 00:09 | NUR ---
NURSE NOTES: PATIENT ASLEEP STATUS, NO PAIN OR SOB NOTED AT THIS TIME, WILL CONTINUE PLAN OF CARE.
--- NOTE | 2019-02-10 02:10 | NUR ---
NURSE NOTES: PATIENT SLEEPING STATUS, NO DISTRESS NOTED, WILL CONTINUE PLAN OF CARE.
[2019-02-10 04:35] LABS: HEMATOCRIT 33.6 % (42.0-52.0); HEMOGLOBIN 11.1 G/DL (14.2-18.0); MEAN CORPUSCULAR VOLUME 92 FL (80-99); PLATELET COUNT 70 K/UL (150-450); RED BLOOD COUNT 3.65 M/UL (4.70-6.10); RED CELL DISTRIBUTION WIDTH 14.5 % (11.6-14.8); WHITE BLOOD COUNT 9.7 K/UL (4.8-10.8)
--- NOTE | 2019-02-10 05:00 | NUR ---
NURSE NOTES: NO PAIN OR DISTRESS NOTED.
[2019-02-10] MEDS: Hydrocortisone 100mg Inj IV SCH ×3 (05:31→21:32)
[2019-02-10] MEDS: DOPamine 400mg/250ml 250 ML IV SCH (05:38)
[2019-02-10] MEDS: NovoLOG Insulin Flexpen SUBQ SCH ×3 (05:38→18:48)
--- NOTE | 2019-02-10 06:11 | NUR ---
NURSE NOTES: MORNING CARE WAS DONE, NO BM STATUS, NO ACUTE DISTRESS NOTED AT THIS SHIFT.
--- NOTE | 2019-02-10 06:15 | General Progress Note ---
Assessment/Plan Problem List: (1) DM (diabetes mellitus) ICD Codes: E11.9 - Type 2 diabetes mellitus without complications SNOMED: 46363244 (2) cardiomyopathy with EF of 35% (3) Encounter for PEG (percutaneous endoscopic gastrostomy) ICD Codes: Z43.1 - Encounter for attention to gastrostomy SNOMED: 352815688, 521719139 (4) Dysphagia ICD Codes: R13.10 - Dysphagia, unspecified SNOMED: 79960158, 965330210 (5) Bradyarrhythmia ICD Codes: I49.8 - Other specified cardiac arrhythmias SNOMED: 553305250 (6) Systolic heart failure ICD Codes: I50.20 - Unspecified systolic (congestive) heart failure SNOMED: 847846557 (7) Schizophrenia ICD Codes: F20.9 - Schizophrenia, unspecified SNOMED: 91441301 (8) COPD (chronic obstructive pulmonary disease) ICD Codes: J44.9 - Chronic obstructive pulmonary disease, unspecified SNOMED: 20024099 Qualifiers: Qualified Codes: J44.9 - Chronic obstructive pulmonary disease, unspecified Status: stable, progressing, unchanged Assessment/Plan: failed swallow eval needs peg Bioethic consult recommended against peg if dementia is severe recommend neurology consult multiple attempt to place NGT failed plan PEG for tomorrow if consented Subjective ROS Limited/Unobtainable: No Allergies: Coded Allergies: No Known Allergies (Unverified , 01/24/19) Objective Last 24 Hour Vital Signs Date Time Temp Pulse Resp B/P (MAP) Pulse Ox O2 Delivery O2 Flow Rate FiO2 02/10/19 06:03 67 18 106/44 (64) 93 02/10/19 06:00 85 29 73/60 (64) 96 02/10/19 05:38 114/69 02/10/19 05:00 54 21 112/48 (69) 97 02/10/19 04:00 Room Air 02/10/19 04:00 98.2 71 27 123/56 (78) 86 02/10/19 03:24 53 02/10/19 03:00 53 23 123/44 (70) 90 02/10/19 02:00 51 25 114/46 (68) 90 02/10/19 01:30 54 24 112/54 (73) 89 02/10/19 01:00 49 25 125/47 (73) 90 02/10/19 00:00 98.2 56 20 118/57 (77) 87 02/10/19 00:00 Room Air 02/09/19 23:28 46 02/09/19 23:00 45 24 108/51 (70) 91 02/09/19 22:30 59 27 86/69 (75) 90 02/09/19 22:00 57 18 102/60 (74) 94 02/09/19 21:00 48 19 109/60 (76) 94 02/09/19 20:00 97.5 54 22 116/49 (71) 93 02/09/19 20:00 Room Air 02/09/19 19:30 63 21 97/53 (68) 93 02/09/19 19:29 61 02/09/19 19:00 63 18 107/52 (70) 94 02/09/19 18:30 67 17 106/52 (70) 95 02/09/19 18:15 98/53 02/09/19 18:00 47 22 98/53 (68) 97 02/09/19 17:30 49 22 97/48 (64) 92 02/09/19 17:00 53 18 97/55 (69) 99 02/09/19 17:00 97/55 02/09/19 16:30 61 17 102/46 (64) 98 02/09/19 16:00 Room Air 02/09/19 16:00 68 02/09/19 16:00 114/47 02/09/19 16:00 97.5 60 18 114/47 (69) 92 02/09/19 15:30 55 18 104/45 (64) 93 02/09/19 15:00 65 29 105/47 (66) 93 02/09/19 15:00 105/47 02/09/19 14:30 78 25 102/44 (63) 92 02/09/19 14:00 51 20 114/52 (72) 90 02/09/19 14:00 114/52 02/09/19 13:30 57 17 112/48 (69) 93 02/09/19 13:00 115/55 02/09/19 13:00 97.5 60 15 115/55 (75) 93 02/09/19 12:30 54 20 119/51 (73) 91 02/09/19 12:00 58 02/09/19 12:00 50 22 112/49 (70) 90 02/09/19 12:00 112/49 02/09/19 12:00 Room Air 02/09/19 11:30 61 17 114/48 (70) 92 02/09/19 11:00 61 16 131/67 (88) 92 02/09/19 11:00 131/67 02/09/19 10:30 68 19 127/59 (81) 91 02/09/19 10:00 61 18 129/60 (83) 93 02/09/19 10:00 129/60 02/09/19 09:30 56 29 91/51 (64) 90 02/09/19 09:00 100/63 02/09/19 09:00 70 22 100/63 (75) 85 02/09/19 08:30 69 19 100/63 (75) 89 02/09/19 08:00 130/33 02/09/19 08:00 63 02/09/19 08:00 104 30 130/33 (65) 82 02/09/19 08:00 Nasal Cannula 2.0 02/09/19 07:54 93 Room Air 21 02/09/19 07:30 72 21 130/33 (65) 90 02/09/19 07:00 119/59 02/09/19 07:00 98.1 48 26 119/59 (79) 99 Intake and Output 02/09/19 02/10/19 19:00 07:00 Intake Total 571.258 ml 580 ml Output Total 630 ml 795 ml Balance -58.742 ml -215 ml IV Total 571.258 ml 550 ml Other 30 ml Output Urine Total 630 ml 795 ml Laboratory Tests 02/09/19 14:30: Prothrombin Time 12.5H, Prothromb Time International Ratio 1.2H, Hepatitis A IgM Antibody [Pending], Hepatitis B Surface Antigen [Pending], Hepatitis B Core IgM Antibody [Pending], Hepatitis C Antibody [Pending] 02/10/19 04:00: White Blood Count 9.7, Red Blood Count 3.65L, Hemoglobin 11.1L, Hematocrit 33.6L , Mean Corpuscular Volume 92, Mean Corpuscular Hemoglobin 30.5, Mean Corpuscular Hemoglobin Concent 33.1, Red Cell Distribution Width 14.5, Platelet Count 70L, Mean Platelet Volume 6.6, Neutrophils (%) (Auto) , Lymphocytes (%) ( Auto) , Monocytes (%) (Auto) , Eosinophils (%) (Auto) , Basophils (%) (Auto) , Neutrophils % (Manual) [Pending], Lymphocytes % (Manual) [Pending], Platelet Estimate [Pending], Platelet Morphology [Pending], Erythrocyte Sedimentation Rate 20, Sodium Level [Pending], Potassium Level [Pending], Chloride Level [ Pending], Carbon Dioxide Level [Pending], Blood Urea Nitrogen [Pending], Creatinine [Pending], Estimat Glomerular Filtration Rate [Pending], Glucose Level [Pending], Calcium Level [Pending], Phosphorus Level [Pending], Magnesium Level [Pending], Total Bilirubin [Pending], Aspartate Amino Transf (AST/SGOT) [ Pending], Alanine Aminotransferase (ALT/SGPT) [Pending], Alkaline Phosphatase [ Pending], C-Reactive Protein, Quantitative [Pending], Total Protein [Pending], Albumin [Pending], Globulin [Pending] Height (Feet): 5 Height (Inches): 7.00 Weight (Pounds): 148 General Appearance: lethargic EENT: normal ENT inspection Neck: supple Cardiovascular: normal rate Respiratory/Chest: decreased breath sounds Abdomen: normal bowel sounds, non tender, soft Extremities: non-tender Leonel Valderrama MD Feb 10, 2019 06:15
[2019-02-10 06:36] LABS: ALANINE AMINOTRANSFERASE 60 U/L (12-78); ALBUMIN/GLOBULIN RATIO 0.6 (1.0-2.7); ALKALINE PHOSPHATASE 106 U/L (46-116); ANION GAP 6 mmol/L (5-15); ASPARTATE AMINO TRANSFERASE 43 U/L (15-37); BILIRUBIN,TOTAL 0.6 MG/DL (0.2-1.0); BLOOD UREA NITROGEN 15 mg/dL (7-18); CALCIUM 7.2 MG/DL (8.5-10.1); CARBON DIOXIDE 30 MMOL/L (21-32); CHLORIDE 108 MMOL/L (98-107); CREATININE 1.1 MG/DL (0.55-1.30); PHOSPHORUS 2.4 MG/DL (2.5-4.9); SODIUM 143 MMOL/L (136-145)
--- NOTE | 2019-02-10 07:15 | NUR ---
HAND-OFF: Report given to EUGENIA LIRA.
--- NOTE | 2019-02-10 08:00 | NUR ---
NURSE NOTES: Received change of shift report from Jalen RN. Pt is awake, alert, confused, agitated, and noncompliant. Pt is on 2L of oxygen via nasal cannula at 98% O2Sat. Bilateral diminished lung sounds are noted on auscultation. 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 Temp 97.6F axillary. Pt is currently NPO, with IV fluid D5 0.45%NS with KCL 40meq infusing at 50ml/hour via right UA PICC line. Abdomen is round, soft, nontender to touch with hypoactive bowel sounds. Costello catheter is present, draining clear/yellow urine. Skin has sacral, and bilateral heel dressings in place, dry/intact. Pt is on P200 pressure releasing mattress. Head of bed is at 30 degrees, bed locked, in lowest position, with three side rails up, and call light within reach. Will continue to monitor pt and follow plan of care per MD order and protocol.
[2019-02-10] MEDS: Doxycycline Monohydrate 100mg ORAL SCH (08:56)
[2019-02-10] MEDS: Memantine 5 MG TAB ORAL SCH (08:56)
[2019-02-10] MEDS: Midodrine 10mg tab NG SCH ×3 (08:56→18:00)
[2019-02-10] MEDS: Ascorbic Acid 500mg tab ORAL SCH ×2 (08:56→18:43)
--- NOTE | 2019-02-10 09:41 | Nephrology Progress Note ---
Assessment/Plan Problem List: (1) Renal failure (ARF), acute on chronic (2) Acute respiratory failure (3) Septic shock (4) Bradyarrhythmia Assessment Renal failure- Likely acute on Chronic- Cr lower Acute respiratory failure- intubated on Vent Septic Shock- On pressors COPD PVD Schizophrenia Plan NGT out K and Phos IV Now ( 02/02) extubated- tolerating well pulmonary support aim to taper dopamine stop IV fluid renal dose dopamin for low HR K supplement down on hydration One dose IV Lasix mag and Phos and K supplement as needed 2D Echo Low Ej Fx - Global Hypokinesis Avoid nephrotoxics afterload reduction monitor renal parameters urine studies ADRIAN IMPRESSION: Nonobstructive stones in the left kidney demonstrated. Bilateral renal cysts. Subjective ROS Limited/Unobtainable: No Constitutional: Reports: malaise, weakness Objective Objective Last 24 Hour Vital Signs Date Time Temp Pulse Resp B/P (MAP) Pulse Ox O2 Delivery O2 Flow Rate FiO2 02/10/19 09:00 76 26 130/57 (81) 90 02/10/19 08:30 59 23 120/93 (102) 95 02/10/19 08:00 97.6 50 20 118/52 (74) 94 02/10/19 07:00 51 23 124/47 (72) 93 02/10/19 06:03 67 18 106/44 (64) 93 02/10/19 06:00 85 29 73/60 (64) 96 02/10/19 05:38 114/69 02/10/19 05:00 54 21 112/48 (69) 97 02/10/19 04:00 Room Air 02/10/19 04:00 98.2 71 27 123/56 (78) 86 02/10/19 03:24 53 02/10/19 03:00 53 23 123/44 (70) 90 02/10/19 02:00 51 25 114/46 (68) 90 02/10/19 01:30 54 24 112/54 (73) 89 02/10/19 01:00 49 25 125/47 (73) 90 02/10/19 00:00 98.2 56 20 118/57 (77) 87 02/10/19 00:00 Room Air 02/09/19 23:28 46 02/09/19 23:00 45 24 108/51 (70) 91 02/09/19 22:30 59 27 86/69 (75) 90 02/09/19 22:00 57 18 102/60 (74) 94 02/09/19 21:00 48 19 109/60 (76) 94 02/09/19 20:00 97.5 54 22 116/49 (71) 93 02/09/19 20:00 Room Air 02/09/19 19:30 63 21 97/53 (68) 93 02/09/19 19:29 61 02/09/19 19:00 63 18 107/52 (70) 94 02/09/19 18:30 67 17 106/52 (70) 95 02/09/19 18:15 98/53 02/09/19 18:00 47 22 98/53 (68) 97 02/09/19 17:30 49 22 97/48 (64) 92 02/09/19 17:00 53 18 97/55 (69) 99 02/09/19 17:00 97/55 02/09/19 16:30 61 17 102/46 (64) 98 02/09/19 16:00 Room Air 02/09/19 16:00 68 02/09/19 16:00 114/47 02/09/19 16:00 97.5 60 18 114/47 (69) 92 02/09/19 15:30 55 18 104/45 (64) 93 02/09/19 15:00 65 29 105/47 (66) 93 02/09/19 15:00 105/47 02/09/19 14:30 78 25 102/44 (63) 92 02/09/19 14:00 51 20 114/52 (72) 90 02/09/19 14:00 114/52 02/09/19 13:30 57 17 112/48 (69) 93 02/09/19 13:00 115/55 02/09/19 13:00 97.5 60 15 115/55 (75) 93 02/09/19 12:30 54 20 119/51 (73) 91 02/09/19 12:00 58 02/09/19 12:00 50 22 112/49 (70) 90 02/09/19 12:00 112/49 02/09/19 12:00 Room Air 02/09/19 11:30 61 17 114/48 (70) 92 02/09/19 11:00 61 16 131/67 (88) 92 02/09/19 11:00 131/67 02/09/19 10:30 68 19 127/59 (81) 91 02/09/19 10:00 61 18 129/60 (83) 93 02/09/19 10:00 129/60 Intake and Output 02/09/19 02/10/19 19:00 07:00 Intake Total 571.258 ml 630 ml Output Total 630 ml 855 ml Balance -58.742 ml -225 ml IV Total 571.258 ml 600 ml Other 30 ml Output Urine Total 630 ml 855 ml Laboratory Tests 02/09/19 14:30: Prothrombin Time 12.5H, Prothromb Time International Ratio 1.2H, Hepatitis A IgM Antibody [Pending], Hepatitis B Surface Antigen [Pending], Hepatitis B Core IgM Antibody [Pending], Hepatitis C Antibody [Pending] 02/10/19 04:00: White Blood Count 9.7, Red Blood Count 3.65L, Hemoglobin 11.1L, Hematocrit 33.6L , Mean Corpuscular Volume 92, Mean Corpuscular Hemoglobin 30.5, Mean Corpuscular Hemoglobin Concent 33.1, Red Cell Distribution Width 14.5, Platelet Count 70L, Mean Platelet Volume 6.6, Neutrophils (%) (Auto) , Lymphocytes (%) ( Auto) , Monocytes (%) (Auto) , Eosinophils (%) (Auto) , Basophils (%) (Auto) , Differential Total Cells Counted 100, Neutrophils % (Manual) 77H, Lymphocytes % (Manual) 16L, Monocytes % (Manual) 7, Eosinophils % (Manual) 0, Basophils % ( Manual) 0, Band Neutrophils 0, Platelet Estimate DecreasedL, Platelet Morphology Normal, Hypochromasia 1+, Erythrocyte Sedimentation Rate 20, Sodium Level 143, Potassium Level 4.0, Chloride Level 108H, Carbon Dioxide Level 30, Anion Gap 6, Blood Urea Nitrogen 15, Creatinine 1.1, Estimat Glomerular Filtration Rate > 60, Glucose Level 147H, Calcium Level 7.2L, Phosphorus Level 2.4L, Magnesium Level 1.9, Total Bilirubin 0.6, Aspartate Amino Transf (AST/SGOT ) 43H, Alanine Aminotransferase (ALT/SGPT) 60, Alkaline Phosphatase 106, C- Reactive Protein, Quantitative 2.8H, Total Protein 5.6L, Albumin 2.0L, Globulin 3.6, Albumin/Globulin Ratio 0.6L 02/10/19 09:15: Ammonia [Pending] Height (Feet): 5 Height (Inches): 7.00 Weight (Pounds): 148 General Appearance: no apparent distress Cardiovascular: bradycardia Respiratory/Chest: decreased breath sounds Abdomen: soft Bienvenido Gonzalez MD Feb 10, 2019 09:41
[2019-02-10] MEDS ORDERED: Sodium Phosphate 15 MM in NS 275 ML IVPB SCH (10:00)
--- NOTE | 2019-02-10 10:58 | Pulmonolgy Critical Care Note ---
Critical Care - Asmt/Plan Problems: (1) Acute respiratory failure (2) Acute DVT (deep venous thrombosis) (3) Septic shock (4) Thrombocytopenia (5) Systolic heart failure (6) Chronic kidney disease (7) Malignant neoplasm of right kidney (8) COPD (chronic obstructive pulmonary disease) (9) Schizophrenia (10) cardiomyopathy with EF of 35% Respiratory: monitor respiratory rate, adjust FIO2 Cardiac: continue pressors Renal: F/U I&O, check electrolytes Gastrointestinal: continue feedings/current rate Endocrine: monitor blood sugar Hematologic: monitor H/H, transfuse if hgb<8.5 Neurologic: PRN Ativan, PRN Morphine, keep patient comfortable Prophylaxis: SCDs Disposition: keep in ICU Time Spent (Minutes): 40 Notes 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, 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, renal, ID, GI Discussed with: nurses, consultants, case foldermanager field investigations - Objective Last 24 Hour Vital Signs Date Time Temp Pulse Resp B/P (MAP) Pulse Ox O2 Delivery O2 Flow Rate FiO2 02/10/19 09:00 76 26 130/57 (81) 90 02/10/19 08:30 59 23 120/93 (102) 95 02/10/19 08:00 97.6 50 20 118/52 (74) 94 02/10/19 07:00 51 23 124/47 (72) 93 02/10/19 06:03 67 18 106/44 (64) 93 02/10/19 06:00 85 29 73/60 (64) 96 02/10/19 05:38 114/69 02/10/19 05:00 54 21 112/48 (69) 97 02/10/19 04:00 Room Air 02/10/19 04:00 98.2 71 27 123/56 (78) 86 02/10/19 03:24 53 02/10/19 03:00 53 23 123/44 (70) 90 02/10/19 02:00 51 25 114/46 (68) 90 02/10/19 01:30 54 24 112/54 (73) 89 02/10/19 01:00 49 25 125/47 (73) 90 02/10/19 00:00 98.2 56 20 118/57 (77) 87 02/10/19 00:00 Room Air 02/09/19 23:28 46 02/09/19 23:00 45 24 108/51 (70) 91 02/09/19 22:30 59 27 86/69 (75) 90 02/09/19 22:00 57 18 102/60 (74) 94 02/09/19 21:00 48 19 109/60 (76) 94 02/09/19 20:00 97.5 54 22 116/49 (71) 93 02/09/19 20:00 Room Air 02/09/19 19:30 63 21 97/53 (68) 93 02/09/19 19:29 61 02/09/19 19:00 63 18 107/52 (70) 94 02/09/19 18:30 67 17 106/52 (70) 95 02/09/19 18:15 98/53 02/09/19 18:00 47 22 98/53 (68) 97 02/09/19 17:30 49 22 97/48 (64) 92 02/09/19 17:00 53 18 97/55 (69) 99 02/09/19 17:00 97/55 02/09/19 16:30 61 17 102/46 (64) 98 02/09/19 16:00 Room Air 02/09/19 16:00 68 02/09/19 16:00 114/47 02/09/19 16:00 97.5 60 18 114/47 (69) 92 02/09/19 15:30 55 18 104/45 (64) 93 02/09/19 15:00 65 29 105/47 (66) 93 02/09/19 15:00 105/47 02/09/19 14:30 78 25 102/44 (63) 92 02/09/19 14:00 51 20 114/52 (72) 90 02/09/19 14:00 114/52 02/09/19 13:30 57 17 112/48 (69) 93 02/09/19 13:00 115/55 02/09/19 13:00 97.5 60 15 115/55 (75) 93 02/09/19 12:30 54 20 119/51 (73) 91 02/09/19 12:00 58 02/09/19 12:00 50 22 112/49 (70) 90 02/09/19 12:00 112/49 02/09/19 12:00 Room Air 02/09/19 11:30 61 17 114/48 (70) 92 02/09/19 11:00 61 16 131/67 (88) 92 02/09/19 11:00 131/67 Status: awake Condition: critical HEENT: atraumatic Lungs: clear Heart: HR/BP stable Abdomen: soft, active bowel sounds, feeding tube Decubiti: location Accucheck: 129 Critical Care - Subjective ROS Limited/Unobtainable: Yes Interval Events: neuro declared the pt incompetent in terms of making decisions FI02: 21 Vent Support Breath Rate: 20 Vent Support Mode: CPAP Vent Tidal Volume: 500 Sputum Amount: None PEEP: 5.0 PIP: 13 I&O: Intake and Output 02/09/19 02/10/19 19:00 07:00 Intake Total 571.258 ml 630 ml Output Total 630 ml 855 ml Balance -58.742 ml -225 ml IV Total 571.258 ml 600 ml Other 30 ml Output Urine Total 630 ml 855 ml CXR: no change ET-Tube: 7.5 ET Position: 26 Labs: Laboratory Tests Test 02/09/19 14:30 02/10/19 04:00 02/10/19 09:15 Prothrombin Time 12.5 SEC (9.30-11.50) H Prothromb Time International Ratio 1.2 (0.9-1.1) H Hepatitis A IgM Antibody Pending Hepatitis B Surface Antigen Pending Hepatitis B Core IgM Antibody Pending Hepatitis C Antibody Pending White Blood Count 9.7 K/UL (4.8-10.8) Red Blood Count 3.65 M/UL (4.70-6.10) L Hemoglobin 11.1 G/DL (14.2-18.0) L Hematocrit 33.6 % (42.0-52.0) L Mean Corpuscular Volume 92 FL (80-99) Mean Corpuscular Hemoglobin 30.5 PG (27.0-31.0) Mean Corpuscular Hemoglobin Concent 33.1 G/DL (32.0-36.0) Red Cell Distribution Width 14.5 % (11.6-14.8) Platelet Count 70 K/UL (150-450) L Mean Platelet Volume 6.6 FL (6.5-10.1) Neutrophils (%) (Auto) % (45.0-75.0) Lymphocytes (%) (Auto) % (20.0-45.0) Monocytes (%) (Auto) % (1.0-10.0) Eosinophils (%) (Auto) % (0.0-3.0) Basophils (%) (Auto) % (0.0-2.0) Differential Total Cells Counted 100 Neutrophils % (Manual) 77 % (45-75) H Lymphocytes % (Manual) 16 % (20-45) L Monocytes % (Manual) 7 % (1-10) Eosinophils % (Manual) 0 % (0-3) Basophils % (Manual) 0 % (0-2) Band Neutrophils 0 % (0-8) Platelet Estimate Decreased L Platelet Morphology Normal Hypochromasia 1+ Erythrocyte Sedimentation Rate 20 MM/HR (0-20) Sodium Level 143 MMOL/L (136-145) Potassium Level 4.0 MMOL/L (3.5-5.1) Chloride Level 108 MMOL/L (98-107) H Carbon Dioxide Level 30 MMOL/L (21-32) Anion Gap 6 mmol/L (5-15) Blood Urea Nitrogen 15 mg/dL (7-18) Creatinine 1.1 MG/DL (0.55-1.30) Estimat Glomerular Filtration Rate > 60 mL/min (>60) Glucose Level 147 MG/DL (74-106) H Calcium Level 7.2 MG/DL (8.5-10.1) L Phosphorus Level 2.4 MG/DL (2.5-4.9) L Magnesium Level 1.9 MG/DL (1.8-2.4) Total Bilirubin 0.6 MG/DL (0.2-1.0) Aspartate Amino Transf (AST/SGOT) 43 U/L (15-37) H Alanine Aminotransferase (ALT/SGPT) 60 U/L (12-78) Alkaline Phosphatase 106 U/L (46-116) C-Reactive Protein, Quantitative 2.8 mg/dL (0.00-0.90) H Total Protein 5.6 G/DL (6.4-8.2) L Albumin 2.0 G/DL (3.4-5.0) L Globulin 3.6 g/dL Albumin/Globulin Ratio 0.6 (1.0-2.7) L Ammonia 21 umol/L (11-32) Ron Anthony MD Feb 10, 2019 10:58
[2019-02-10] MEDS: D5 1/2NS w/KCl 40meq 1000ml 1,000 ML IV SCH (10:59)
--- NOTE | 2019-02-10 11:19 | NUR ---
ST NOTES: SWALLOW STATUS: PATIENT SEEN BY DR SEO, NEUROLOGIST, WHO AGREED PT UNABLE TO MAKE HEALTH DECISIONS NOW. PER RN, PATIENT LIKELY TO HAVE PEG. PER RN, SINCE PATIENT IS NOT ALLOWING NGT INSERTION, HE MUST TAKE PO MEDS. ADVISED HER TO USE NECTAR THICK WATER WITH CRUSHED MEDS AND OROPHARYNGEAL SUCTION AFTER TO ASSURE HE TOLERATED IT. PLAN: F/UP AFTER PEG PLACEMENT CONTINUE WITH ORAL CARE/SUCTION PRN
--- NOTE | 2019-02-10 11:29 | NUR ---
UPDATED SWALLOW STATUS: PATIENT NOT ALERT. PER RN, PATIENT COMBATIVE AND PULLS OUT HIS 02 NASAL CANNULA. RN TO CALL PSYCHIATRIST DR EDGE TO LET HIM KNOW PT IS STILL COMBATIVE AND NOT WILLING TO WEAR HIS NASAL CANNULA EVEN WITH ON SEROQUEL. PATIENT SEEN BY DR SEO, NEUROLOGIST, WHO AGREED PT UNABLE TO MAKE HEALTH DECISIONS NOW. PER RN, PATIENT LIKELY TO HAVE PEG. EDUCATED/TRAINED RN IN ASPIRATION PRECAUTIONS WITH PO MEDS: PER SORAYA BELLO, SINCE PATIENT IS NOT ALLOWING NGT INSERTION, HE MUST TAKE PO MEDS. ADVISED RN TO USE NECTAR THICK WATER WITH CRUSHED MEDS AND OROPHARYNGEAL SUCTION AFTER TO ASSURE HE TOLERATED IT. PLAN: F/UP AFTER PEG PLACEMENT CONTINUE WITH ORAL CARE/SUCTION PRN CONSIDER REPEAT MOD BARIUM SWALLOW (AFTER PEG PLACEMENT) AND FOR ORAL GRATIFICATION AND QUALITY OF LIFE PURPOSES. CAN COMPLETE INPATIENT OR OP IF PT TO BE D/C.
--- NOTE | 2019-02-10 12:00 | NUR ---
NURSE NOTES: Pt was seen by Dr Aguiar for neuro consult. Per MD, unable to complete neuro consult due to pt being very combative. Per Md, pt is unable to give consent for any procedures. Waiting for bioethics for consent for IVC filter placement and PEG placement.
--- NOTE | 2019-02-10 12:57 | NUR ---
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 97.6 HR 50 RR 20 B/P 118/52 AST 43 VENOUS DOPPLER= LEFT LEG DVT IS; K-PHOS IV IVF D5NS@ 50ML/HR DOPAMINE GTT SOLU MEDROL IV ICU STATUS
--- NOTE | 2019-02-10 15:13 | Hematology/Onc Progress Note ---
Assessment/Plan Assessment/Plan Assessment and Recs: # Dvt of the lower left superficial femoral vein with low platelets id contraindicated for ATC therapy --> ordered ivc filter, as per pulm--> at this time, contraindicated for anticoagulants --> obtain consent --> no further heparin # Thrombocytopenia - potential causes multifactorial, evaluate liver and viral etiologies to begin, us abd shows Coarsened hepatic echogenicity, may indicate hepatocellular disease, INr also high, also may be related to sepsis, recovery may have HEP C --> Hep panel and HIV ordered --> US abd does show some coarsened liver, query cirrhosis, Inr also high --> Peripheral smear ordered to evaluate for blasts /schistocytes --> abx and other meds have been reviewed --> ok for ppx if plt >50k w/ either heparin or lovenox --> Transfuse if Plt < 20k and fever, or if Plt < 10k without fever --> plt trend 74-->70 # Anemia of chronic disease, borderline --> hgb trend 11 # Dysphagia, necessitating ng and peg --> ng unsuccesful --> as per gi, pending peg with consent # Septic shock with multiple infection --> on abx per id # Resp failure s/p intubation --> extubated 02/02 --> on nc # COPD # PVD # Schizophrenia # Cardiomyopathy # Dvt ppx scds, needs ivcf DW Rn and appreciate consultation. Subjective Constitutional: Denies: no symptoms, chills, fever, malaise, weakness, other HEENT: Denies: no symptoms, eye pain, blurred vision, tearing, double vision, ear pain, ear discharge, nose pain, nose congestion, throat pain, throat swelling, mouth pain, mouth swelling, other Cardiovascular: Denies: no symptoms, chest pain, edema, irregular heart rate, lightheadedness, palpitations, syncope, other Respiratory: Denies: no symptoms, cough, shortness of breath, SOB with excertion, SOB at rest, sputum, wheezing, other Genitourinary: Denies: no symptoms, burning, discharge, frequency, flank pain, hematuria, incontinence, pain, urgency, other Neurologic/Psychiatric: Denies: no symptoms, anxiety, depressed, emotional problems, headache, numbness, paresthesia, pre-existing deficit, seizure, tingling, tremors, weakness, other Allergies: Coded Allergies: No Known Allergies (Unverified , 01/24/19) Subjective 02/10: remains in the icu, labs noted, reviewed, no bleeding or chills, hep panel pend Objective Objective Current Medications Medications (Trade) Dose Ordered Sig/Ricardo Route PRN Reason Start Time Stop Time Status Last Admin Dose Admin Acetaminophen (Tylenol) 650 mg Q4H PRN ORAL fever 01/24/19 20:00 02/23/19 19:59 Ascorbic Acid (Vitamin C) 250 mg TWICE A DAY ORAL 01/27/19 18:00 02/26/19 17:59 02/10/19 08:56 Chlorhexidine Gluconate (Roseanna-Hex 2%) 1 applic DAILY@2000 TOPIC 02/07/19 20:00 03/09/19 19:59 02/09/19 19:52 Dextrose (Dextrose 50%) 25 ml Q30M PRN IV Hypoglycemia 01/25/19 19:00 02/24/19 18:59 Dextrose (Dextrose 50%) 50 ml Q30M PRN IV Hypoglycemia 01/25/19 19:00 02/24/19 18:59 Dextrose/ Electrolytes 1,000 ml @ 50 mls/hr Q20H IV 02/09/19 17:00 03/11/19 16:59 02/10/19 10:59 Dopamine HCl/ Dextrose 250 ml @ 0 mls/hr Q24H IV 02/06/19 06:00 03/08/19 05:59 02/09/19 05:05 Doxycycline Monohydrate (Doxycycline Monohydrate) 100 mg EVERY 12 HOURS ORAL 02/08/19 21:00 02/15/19 20:59 02/10/19 08:56 Hydrocortisone (Solu-CORTEF) 100 mg EVERY 8 HOURS IV 02/05/19 22:00 03/07/19 21:59 02/10/19 12:46 Insulin Aspart (NovoLOG) EVERY 6 HOURS SUBQ 01/26/19 00:00 02/25/19 00:00 02/10/19 12:46 Memantine (Namenda) 5 mg DAILY ORAL 02/04/19 09:00 03/06/19 08:59 02/10/19 08:56 Midodrine (Pro-Amatine) 10 mg THREE TIMES A DAY NG 02/04/19 18:00 03/01/19 12:59 02/10/19 12:46 Polyethylene Glycol (Miralax) 17 gm DAILYPRN PRN ORAL Constipation 01/24/19 20:00 02/23/19 19:59 02/01/19 05:47 Potassium Chloride (K-Dur) 40 meq TWICE A DAY NG 01/27/19 11:45 02/26/19 11:44 02/10/19 08:56 Quetiapine Fumarate (SEROqueL) 25 mg QHS ORAL 02/03/19 21:00 03/05/19 20:59 02/09/19 20:53 Sodium Phosphate 15 mm/Sodium Chloride 280 ml @ 70.273 mls/ hr ONCE IVPB 02/10/19 10:00 02/10/19 18:00 02/10/19 10:59 Last 24 Hour Vital Signs Date Time Temp Pulse Resp B/P (MAP) Pulse Ox O2 Delivery O2 Flow Rate FiO2 02/10/19 13:00 62 19 126/58 (80) 99 02/10/19 12:00 44 02/10/19 12:00 47 20 126/47 (73) 93 02/10/19 12:00 Room Air 02/10/19 11:00 50 22 119/51 (73) 92 02/10/19 10:00 51 16 122/55 (77) 94 02/10/19 09:00 76 26 130/57 (81) 90 02/10/19 08:30 59 23 120/93 (102) 95 02/10/19 08:00 Room Air 02/10/19 08:00 56 02/10/19 08:00 97.6 50 20 118/52 (74) 94 02/10/19 07:00 51 23 124/47 (72) 93 02/10/19 06:03 67 18 106/44 (64) 93 02/10/19 06:00 85 29 73/60 (64) 96 02/10/19 05:38 114/69 02/10/19 05:00 54 21 112/48 (69) 97 02/10/19 04:00 Room Air 02/10/19 04:00 98.2 71 27 123/56 (78) 86 02/10/19 03:24 53 02/10/19 03:00 53 23 123/44 (70) 90 02/10/19 02:00 51 25 114/46 (68) 90 02/10/19 01:30 54 24 112/54 (73) 89 02/10/19 01:00 49 25 125/47 (73) 90 02/10/19 00:00 98.2 56 20 118/57 (77) 87 02/10/19 00:00 Room Air 02/09/19 23:28 46 02/09/19 23:00 45 24 108/51 (70) 91 02/09/19 22:30 59 27 86/69 (75) 90 02/09/19 22:00 57 18 102/60 (74) 94 02/09/19 21:00 48 19 109/60 (76) 94 02/09/19 20:00 97.5 54 22 116/49 (71) 93 02/09/19 20:00 Room Air 02/09/19 19:30 63 21 97/53 (68) 93 02/09/19 19:29 61 02/09/19 19:00 63 18 107/52 (70) 94 02/09/19 18:30 67 17 106/52 (70) 95 02/09/19 18:15 98/53 02/09/19 18:00 47 22 98/53 (68) 97 02/09/19 17:30 49 22 97/48 (64) 92 02/09/19 17:00 53 18 97/55 (69) 99 02/09/19 17:00 97/55 02/09/19 16:30 61 17 102/46 (64) 98 02/09/19 16:00 Room Air 02/09/19 16:00 68 02/09/19 16:00 114/47 02/09/19 16:00 97.5 60 18 114/47 (69) 92 02/09/19 15:30 55 18 104/45 (64) 93 02/09/19 15:00 65 29 105/47 (66) 93 02/09/19 15:00 105/47 02/09/19 14:30 78 25 102/44 (63) 92 02/09/19 14:00 51 20 114/52 (72) 90 02/09/19 14:00 114/52 02/09/19 13:30 57 17 112/48 (69) 93 02/09/19 13:00 115/55 02/09/19 13:00 97.5 60 15 115/55 (75) 93 02/09/19 12:30 54 20 119/51 (73) 91 02/09/19 12:00 58 02/09/19 12:00 50 22 112/49 (70) 90 02/09/19 12:00 112/49 02/09/19 12:00 Room Air 02/09/19 11:30 61 17 114/48 (70) 92 02/09/19 11:00 61 16 131/67 (88) 92 02/09/19 11:00 131/67 02/09/19 10:30 68 19 127/59 (81) 91 02/09/19 10:00 61 18 129/60 (83) 93 02/09/19 10:00 129/60 02/09/19 09:30 56 29 91/51 (64) 90 02/09/19 09:00 100/63 02/09/19 09:00 70 22 100/63 (75) 85 02/09/19 08:30 69 19 100/63 (75) 89 02/09/19 08:00 130/33 02/09/19 08:00 63 02/09/19 08:00 104 30 130/33 (65) 82 02/09/19 08:00 Nasal Cannula 2.0 02/09/19 07:54 93 Room Air 21 02/09/19 07:30 72 21 130/33 (65) 90 02/09/19 07:00 119/59 02/09/19 07:00 98.1 48 26 119/59 (79) 99 02/09/19 06:02 62 16 121/57 (78) 96 02/09/19 06:00 121/57 02/09/19 05:05 98/52 02/09/19 05:00 98/52 02/09/19 05:00 52 21 98/52 (67) 100 02/09/19 04:00 64 02/09/19 04:00 142/75 02/09/19 04:00 97.8 61 22 142/75 (97) 100 02/09/19 04:00 Room Air 02/09/19 03:00 58 21 124/61 (82) 100 02/09/19 03:00 124/61 02/09/19 02:00 60 20 133/66 (88) 92 02/09/19 02:00 133/66 02/09/19 01:00 125/56 02/09/19 01:00 52 23 125/56 (79) 92 02/09/19 00:00 97.7 49 28 124/57 (79) 90 02/09/19 00:00 Room Air 02/09/19 00:00 124/57 02/09/19 00:00 51 02/08/19 23:00 115/58 02/08/19 23:00 58 23 115/58 (77) 89 02/08/19 22:00 112/53 02/08/19 22:00 67 22 112/53 (72) 92 02/08/19 21:00 58 18 95/70 (78) 89 02/08/19 21:00 95/70 02/08/19 20:00 54 02/08/19 20:00 109/48 02/08/19 20:00 Room Air 02/08/19 20:00 98.0 53 19 109/48 (68) 93 02/08/19 19:30 52 17 113/52 (72) 92 02/08/19 19:06 94 Room Air 21 02/08/19 19:06 51 19 94 Room Air 21 02/08/19 19:00 58 21 120/53 (75) 93 02/08/19 19:00 120/53 02/08/19 18:00 57 16 108/48 (68) 93 02/08/19 18:00 108/48 02/08/19 17:30 66 16 112/53 (72) 88 02/08/19 17:00 123/53 02/08/19 17:00 61 20 119/54 (75) 90 02/08/19 16:30 54 20 121/56 (77) 88 02/08/19 16:00 55 02/08/19 16:00 114/61 02/08/19 16:00 Room Air 02/08/19 16:00 97.6 56 21 114/61 (78) 88 02/08/19 15:30 60 19 111/61 (78) 93 Intake and Output 02/09/19 02/10/19 19:00 07:00 Intake Total 571.258 ml 630 ml Output Total 630 ml 855 ml Balance -58.742 ml -225 ml IV Total 571.258 ml 600 ml Other 30 ml Output Urine Total 630 ml 855 ml Labs Test 02/08/19 07:35 02/08/19 16:55 02/09/19 03:30 02/09/19 14:30 White Blood Count 11.7 K/UL (4.8-10.8) 9.5 K/UL (4.8-10.8) Red Blood Count 4.15 M/UL (4.70-6.10) 3.77 M/UL (4.70-6.10) Hemoglobin 12.6 G/DL (14.2-18.0) 11.5 G/DL (14.2-18.0) Hematocrit 37.3 % (42.0-52.0) 34.4 % (42.0-52.0) Mean Corpuscular Volume 90 FL (80-99) 91 FL (80-99) Mean Corpuscular Hemoglobin 30.4 PG (27.0-31.0) 30.5 PG (27.0-31.0) Mean Corpuscular Hemoglobin Concent 33.8 G/DL (32.0-36.0) 33.4 G/DL (32.0-36.0) Red Cell Distribution Width 13.9 % (11.6-14.8) 14.3 % (11.6-14.8) Platelet Count 86 K/UL (150-450) 74 K/UL (150-450) Mean Platelet Volume 6.6 FL (6.5-10.1) 6.5 FL (6.5-10.1) Neutrophils (%) (Auto) % (45.0-75.0) % (45.0-75.0) Lymphocytes (%) (Auto) % (20.0-45.0) % (20.0-45.0) Monocytes (%) (Auto) % (1.0-10.0) % (1.0-10.0) Eosinophils (%) (Auto) % (0.0-3.0) % (0.0-3.0) Basophils (%) (Auto) % (0.0-2.0) % (0.0-2.0) Differential Total Cells Counted 100 100 Neutrophils % (Manual) 88 % (45-75) 91 % (45-75) Lymphocytes % (Manual) 9 % (20-45) 5 % (20-45) Monocytes % (Manual) 3 % (1-10) 4 % (1-10) Eosinophils % (Manual) 0 % (0-3) 0 % (0-3) Basophils % (Manual) 0 % (0-2) 0 % (0-2) Band Neutrophils 0 % (0-8) 0 % (0-8) Platelet Estimate Decreased Decreased Platelet Morphology Normal Normal Red Blood Cell Morphology Normal Erythrocyte Sedimentation Rate 22 MM/HR (0-20) 24 MM/HR (0-20) Sodium Level 139 MMOL/L (136-145) 141 MMOL/L (136-145) 141 MMOL/L (136-145) Potassium Level 2.7 MMOL/L (3.5-5.1) 3.1 MMOL/L (3.5-5.1) 3.3 MMOL/L (3.5-5.1) Chloride Level 105 MMOL/L (98-107) 104 MMOL/L (98-107) 105 MMOL/L (98-107) Carbon Dioxide Level 35 MMOL/L (21-32) 30 MMOL/L (21-32) 30 MMOL/L (21-32) Anion Gap -1 mmol/L (5-15) 7 mmol/L (5-15) 6 mmol/L (5-15) Blood Urea Nitrogen 12 mg/dL (7-18) 13 mg/dL (7-18) 13 mg/dL (7-18) Creatinine 1.1 MG/DL (0.55-1.30) 1.1 MG/DL (0.55-1.30) 1.0 MG/DL (0.55-1.30) Estimat Glomerular Filtration Rate > 60 mL/min (>60) > 60 mL/min (>60) > 60 mL/min (>60) Glucose Level 129 MG/DL (74-106) 152 MG/DL (74-106) 133 MG/DL (74-106) Calcium Level 7.1 MG/DL (8.5-10.1) 7.1 MG/DL (8.5-10.1) 7.1 MG/DL (8.5-10.1) Phosphorus Level 2.5 MG/DL (2.5-4.9) 1.8 MG/DL (2.5-4.9) Magnesium Level 1.7 MG/DL (1.8-2.4) 1.9 MG/DL (1.8-2.4) Total Bilirubin 0.5 MG/DL (0.2-1.0) 0.6 MG/DL (0.2-1.0) 0.7 MG/DL (0.2-1.0) Aspartate Amino Transf (AST/SGOT) 29 U/L (15-37) 31 U/L (15-37) 32 U/L (15-37) Alanine Aminotransferase (ALT/SGPT) 44 U/L (12-78) 42 U/L (12-78) 45 U/L (12-78) Alkaline Phosphatase 92 U/L (46-116) 103 U/L (46-116) 99 U/L (46-116) C-Reactive Protein, Quantitative 4.5 mg/dL (0.00-0.90) 3.4 mg/dL (0.00-0.90) Total Protein 5.4 G/DL (6.4-8.2) 5.8 G/DL (6.4-8.2) 5.5 G/DL (6.4-8.2) Albumin 2.0 G/DL (3.4-5.0) 2.0 G/DL (3.4-5.0) 2.0 G/DL (3.4-5.0) Globulin 3.4 g/dL 3.8 g/dL 3.5 g/dL Albumin/Globulin Ratio 0.6 (1.0-2.7) 0.5 (1.0-2.7) 0.6 (1.0-2.7) Prothrombin Time 12.5 SEC (9.30-11.50) Prothromb Time International Ratio 1.2 (0.9-1.1) Test 02/10/19 04:00 02/10/19 09:15 White Blood Count 9.7 K/UL (4.8-10.8) Red Blood Count 3.65 M/UL (4.70-6.10) Hemoglobin 11.1 G/DL (14.2-18.0) Hematocrit 33.6 % (42.0-52.0) Mean Corpuscular Volume 92 FL (80-99) Mean Corpuscular Hemoglobin 30.5 PG (27.0-31.0) Mean Corpuscular Hemoglobin Concent 33.1 G/DL (32.0-36.0) Red Cell Distribution Width 14.5 % (11.6-14.8) Platelet Count 70 K/UL (150-450) Mean Platelet Volume 6.6 FL (6.5-10.1) Neutrophils (%) (Auto) % (45.0-75.0) Lymphocytes (%) (Auto) % (20.0-45.0) Monocytes (%) (Auto) % (1.0-10.0) Eosinophils (%) (Auto) % (0.0-3.0) Basophils (%) (Auto) % (0.0-2.0) Differential Total Cells Counted 100 Neutrophils % (Manual) 77 % (45-75) Lymphocytes % (Manual) 16 % (20-45) Monocytes % (Manual) 7 % (1-10) Eosinophils % (Manual) 0 % (0-3) Basophils % (Manual) 0 % (0-2) Band Neutrophils 0 % (0-8) Platelet Estimate Decreased Platelet Morphology Normal Hypochromasia 1+ Erythrocyte Sedimentation Rate 20 MM/HR (0-20) Sodium Level 143 MMOL/L (136-145) Potassium Level 4.0 MMOL/L (3.5-5.1) Chloride Level 108 MMOL/L (98-107) Carbon Dioxide Level 30 MMOL/L (21-32) Anion Gap 6 mmol/L (5-15) Blood Urea Nitrogen 15 mg/dL (7-18) Creatinine 1.1 MG/DL (0.55-1.30) Estimat Glomerular Filtration Rate > 60 mL/min (>60) Glucose Level 147 MG/DL (74-106) Calcium Level 7.2 MG/DL (8.5-10.1) Phosphorus Level 2.4 MG/DL (2.5-4.9) Magnesium Level 1.9 MG/DL (1.8-2.4) Total Bilirubin 0.6 MG/DL (0.2-1.0) Aspartate Amino Transf (AST/SGOT) 43 U/L (15-37) Alanine Aminotransferase (ALT/SGPT) 60 U/L (12-78) Alkaline Phosphatase 106 U/L (46-116) C-Reactive Protein, Quantitative 2.8 mg/dL (0.00-0.90) Total Protein 5.6 G/DL (6.4-8.2) Albumin 2.0 G/DL (3.4-5.0) Globulin 3.6 g/dL Albumin/Globulin Ratio 0.6 (1.0-2.7) Ammonia 21 umol/L (11-32) Height (Feet): 5 Height (Inches): 7.00 Weight (Pounds): 148 Objective Physical Exam Vital Signs noted Gen: agitated Neck: supple Respiratory: normal breath sounds + 2l nc Cardiovascular: normal rate Gastrointestinal: soft Rectal: deferred Neurologic: alert, responsive Med Izquierdo MD Feb 10, 2019 15:13
--- NOTE | 2019-02-10 16:35 | Infectious Diseases Prog Note ---
Assessment/Plan Assessment/Plan 68yo gentleman with PMH below presents with fever(100.1 is highest recorded in transfer packet) and worsened congestion from SNF. In the ED, pt was placed on oxygen then BiPAP but ultimately intubated. ID consulted for antimicrobial recommendation. Fever (Tmax 100.1) at half-way, SP Leukocytosis, hydrocortisone 01/25-02/02;' SP Lactic acidosis, SP Shock, was on levophed, titrated off, but now on dopamine MRSA PNA COPD? CHF? thick secretions per nurse flu swab negative 01/24 CXR: Extensive opacities within upper lobes demonstrated. In addition there is generalized interstitial densities throughout both lung craig. 01/25 CXR: Bilateral infiltrates appear fairly extensive but unchanged. TTE with EF 30-35% 01/25 sputum cx: MRSA 01/25 urine legionella ag: P 01/27 CXR: Extensive infiltrates bilaterally. Some degree of a superimposed interstitial edema has improved since the last exam. Endotracheal tube and NG tube remain in satisfactory in position. 01/28 CXR: Extensive bilateral infiltrates are again demonstrated without change. Tubes and lines are stable. 01/28 sputum cx: MRSA 01/30 CXR: 1. Overall similar patchy opacities in the lungs, most prominently in the right upper lung and right mid and lower lung. Probable small bilateral pleural effusions. 2. Endotracheal tube terminates in the region of the lower thoracic aorta above the cristina. Enteric tube courses past the diaphragm and out of the [id number], but the sidehole is seen near the GE junction. 02/02 CXR: Interim removal of previously demonstrated nasogastric tube and endotracheal tube. Right arm PICC remains. Bilateral fairly extensive interstitial opacities persist, unchanged. There is a small left pleural effusion again demonstrated 02/04 CXR: Patchy interstitial prominence demonstrated bilaterally. Heart size is stable. 02/08 CXR: No significant change compared to the prior exam Possible UTI? new mcmahon placed in ED 01/25 UA 15-20 WBC 01/25 Ucx: NG Renal US: Nonobstructive stones in the left kidney demonstrated. Bilateral renal cysts. Limited evaluation due to body habitus. 01/25 BCx: ngtd 01/31 bcx: ngtd Failed Swallow evaluation 02/04 at risk for aspiration pneumonitis and pneumonia Thrombocytopenia No diarrhea HIV test negative MRSA screen positive RLE skin graft b/l LE heel pressure ulcers and sacral ulcer Tobacco abuse COPD HTN Kidney cancer OA CKD Anemia Schizophrenia PVD CHF Plan: D/c PO doxycycline 100mg bid #3 (abx d #01/24) for MRSA PNA and monitor off abx 02/01 SP Azithromycin #5/5 for atypicals 01/31 Ertapenem #8 01/31 DC Amikacin and vancomycin #6 SP cefepime #1 SP flagyl #1 SP vancomycin #1 aspiration precaution, elevate HOB, oral care, frequent suction pulmonary toilet, chest PT DVT PPX discussed with RN Thank you for this consult. [facility] will continue to follow the patient with you. Subjective Allergies: Coded Allergies: No Known Allergies (Unverified , 01/24/19) Subjective afebrile no leukocytosis Objective Vital Signs Last 24 Hour Vital Signs Date Time Temp Pulse Resp B/P (MAP) Pulse Ox O2 Delivery O2 Flow Rate FiO2 02/10/19 15:00 45 18 128/50 (76) 100 02/10/19 14:00 46 21 124/52 (76) 99 02/10/19 13:00 62 19 126/58 (80) 99 02/10/19 12:00 44 02/10/19 12:00 47 20 126/47 (73) 93 02/10/19 12:00 Room Air 02/10/19 11:00 50 22 119/51 (73) 92 02/10/19 10:00 51 16 122/55 (77) 94 02/10/19 09:00 76 26 130/57 (81) 90 02/10/19 08:30 59 23 120/93 (102) 95 02/10/19 08:00 Room Air 02/10/19 08:00 56 02/10/19 08:00 97.6 50 20 118/52 (74) 94 02/10/19 07:00 51 23 124/47 (72) 93 02/10/19 06:03 67 18 106/44 (64) 93 02/10/19 06:00 85 29 73/60 (64) 96 02/10/19 05:38 114/69 02/10/19 05:00 54 21 112/48 (69) 97 02/10/19 04:00 Room Air 02/10/19 04:00 98.2 71 27 123/56 (78) 86 02/10/19 03:24 53 02/10/19 03:00 53 23 123/44 (70) 90 02/10/19 02:00 51 25 114/46 (68) 90 02/10/19 01:30 54 24 112/54 (73) 89 02/10/19 01:00 49 25 125/47 (73) 90 02/10/19 00:00 98.2 56 20 118/57 (77) 87 02/10/19 00:00 Room Air 02/09/19 23:28 46 02/09/19 23:00 45 24 108/51 (70) 91 02/09/19 22:30 59 27 86/69 (75) 90 02/09/19 22:00 57 18 102/60 (74) 94 02/09/19 21:00 48 19 109/60 (76) 94 02/09/19 20:00 97.5 54 22 116/49 (71) 93 02/09/19 20:00 Room Air 02/09/19 19:30 63 21 97/53 (68) 93 02/09/19 19:29 61 02/09/19 19:00 63 18 107/52 (70) 94 02/09/19 18:30 67 17 106/52 (70) 95 02/09/19 18:15 98/53 02/09/19 18:00 47 22 98/53 (68) 97 02/09/19 17:30 49 22 97/48 (64) 92 02/09/19 17:00 53 18 97/55 (69) 99 02/09/19 17:00 97/55 Height (Feet): 5 Height (Inches): 7.00 Weight (Pounds): 148 Objective Gen: NAD HEENT: anicteric sclera. CV: RRR. Resp: coarse. equal chest rise. Abd: soft. normoactive Bs+ Neuro: awake. appropriate Skin: RLE skin graft Laboratory Tests Test 02/10/19 04:00 02/10/19 09:15 White Blood Count 9.7 K/UL (4.8-10.8) Red Blood Count 3.65 M/UL (4.70-6.10) L Hemoglobin 11.1 G/DL (14.2-18.0) L Hematocrit 33.6 % (42.0-52.0) L Mean Corpuscular Volume 92 FL (80-99) Mean Corpuscular Hemoglobin 30.5 PG (27.0-31.0) Mean Corpuscular Hemoglobin Concent 33.1 G/DL (32.0-36.0) Red Cell Distribution Width 14.5 % (11.6-14.8) Platelet Count 70 K/UL (150-450) L Mean Platelet Volume 6.6 FL (6.5-10.1) Neutrophils (%) (Auto) % (45.0-75.0) Lymphocytes (%) (Auto) % (20.0-45.0) Monocytes (%) (Auto) % (1.0-10.0) Eosinophils (%) (Auto) % (0.0-3.0) Basophils (%) (Auto) % (0.0-2.0) Differential Total Cells Counted 100 Neutrophils % (Manual) 77 % (45-75) H Lymphocytes % (Manual) 16 % (20-45) L Monocytes % (Manual) 7 % (1-10) Eosinophils % (Manual) 0 % (0-3) Basophils % (Manual) 0 % (0-2) Band Neutrophils 0 % (0-8) Platelet Estimate Decreased L Platelet Morphology Normal Hypochromasia 1+ Erythrocyte Sedimentation Rate 20 MM/HR (0-20) Sodium Level 143 MMOL/L (136-145) Potassium Level 4.0 MMOL/L (3.5-5.1) Chloride Level 108 MMOL/L (98-107) H Carbon Dioxide Level 30 MMOL/L (21-32) Anion Gap 6 mmol/L (5-15) Blood Urea Nitrogen 15 mg/dL (7-18) Creatinine 1.1 MG/DL (0.55-1.30) Estimat Glomerular Filtration Rate > 60 mL/min (>60) Glucose Level 147 MG/DL (74-106) H Calcium Level 7.2 MG/DL (8.5-10.1) L Phosphorus Level 2.4 MG/DL (2.5-4.9) L Magnesium Level 1.9 MG/DL (1.8-2.4) Total Bilirubin 0.6 MG/DL (0.2-1.0) Aspartate Amino Transf (AST/SGOT) 43 U/L (15-37) H Alanine Aminotransferase (ALT/SGPT) 60 U/L (12-78) Alkaline Phosphatase 106 U/L (46-116) C-Reactive Protein, Quantitative 2.8 mg/dL (0.00-0.90) H Total Protein 5.6 G/DL (6.4-8.2) L Albumin 2.0 G/DL (3.4-5.0) L Globulin 3.6 g/dL Albumin/Globulin Ratio 0.6 (1.0-2.7) L Ammonia 21 umol/L (11-32) Current Medications Medications (Trade) Dose Ordered Sig/Ricardo Route PRN Reason Start Time Stop Time Status Last Admin Dose Admin Acetaminophen (Tylenol) 650 mg Q4H PRN ORAL fever 01/24/19 20:00 02/23/19 19:59 Ascorbic Acid (Vitamin C) 250 mg TWICE A DAY ORAL 01/27/19 18:00 02/26/19 17:59 02/10/19 08:56 Chlorhexidine Gluconate (Roseanna-Hex 2%) 1 applic DAILY@2000 TOPIC 02/07/19 20:00 03/09/19 19:59 02/09/19 19:52 Dextrose (Dextrose 50%) 25 ml Q30M PRN IV Hypoglycemia 01/25/19 19:00 02/24/19 18:59 Dextrose (Dextrose 50%) 50 ml Q30M PRN IV Hypoglycemia 01/25/19 19:00 02/24/19 18:59 Dextrose/ Electrolytes 1,000 ml @ 50 mls/hr Q20H IV 02/09/19 17:00 03/11/19 16:59 02/10/19 10:59 Dopamine HCl/ Dextrose 250 ml @ 0 mls/hr Q24H IV 02/06/19 06:00 03/08/19 05:59 02/09/19 05:05 Doxycycline Monohydrate (Doxycycline Monohydrate) 100 mg EVERY 12 HOURS ORAL 02/08/19 21:00 02/15/19 20:59 02/10/19 08:56 Hydrocortisone (Solu-CORTEF) 100 mg EVERY 8 HOURS IV 02/05/19 22:00 03/07/19 21:59 02/10/19 12:46 Insulin Aspart (NovoLOG) EVERY 6 HOURS SUBQ 01/26/19 00:00 02/25/19 00:00 02/10/19 12:46 Memantine (Namenda) 5 mg DAILY ORAL 02/04/19 09:00 03/06/19 08:59 02/10/19 08:56 Midodrine (Pro-Amatine) 10 mg THREE TIMES A DAY NG 02/04/19 18:00 03/01/19 12:59 02/10/19 12:46 Polyethylene Glycol (Miralax) 17 gm DAILYPRN PRN ORAL Constipation 01/24/19 20:00 02/23/19 19:59 02/01/19 05:47 Potassium Chloride (K-Dur) 40 meq TWICE A DAY NG 01/27/19 11:45 02/26/19 11:44 02/10/19 08:56 Quetiapine Fumarate (SEROqueL) 25 mg QHS ORAL 02/03/19 21:00 03/05/19 20:59 02/09/19 20:53 Sodium Phosphate 15 mm/Sodium Chloride 280 ml @ 70.273 mls/ hr ONCE IVPB 02/10/19 10:00 02/10/19 18:00 02/10/19 10:59 Lesli Michaels M.D. Feb 10, 2019 16:35
--- NOTE | 2019-02-10 17:01 | NUR ---
NURSE NOTES: Dr Paige was contacted and message left regarding pt's agitation, noncompliance and pt being combative. Awaiting for call back.
--- NOTE | 2019-02-10 17:53 | General Progress Note ---
Assessment/Plan Problem List: (1) COPD (chronic obstructive pulmonary disease) ICD Codes: J44.9 - Chronic obstructive pulmonary disease, unspecified SNOMED: 49310970 Qualifiers: Qualified Codes: J44.9 - Chronic obstructive pulmonary disease, unspecified (2) DM (diabetes mellitus) ICD Codes: E11.9 - Type 2 diabetes mellitus without complications SNOMED: 58462633 (3) Thrombocytopenia ICD Codes: D69.6 - Thrombocytopenia, unspecified SNOMED: 779627725 (4) Sepsis ICD Codes: A41.9 - Sepsis, unspecified organism SNOMED: 06232549 Qualifiers: Qualified Codes: A41.9 - Sepsis, unspecified organism (5) Wound, open ICD Codes: T14.8XXA - Other injury of unspecified body region, initial encounter SNOMED: 953163945 (6) Chronic kidney disease ICD Codes: N18.9 - Chronic kidney disease, unspecified SNOMED: 440506907 (7) Malignant neoplasm of right kidney ICD Codes: C64.1 - Malignant neoplasm of right kidney, except renal pelvis SNOMED: 208204293 (8) PVD (peripheral vascular disease) ICD Codes: I73.9 - Peripheral vascular disease, unspecified SNOMED: 852019525 (9) Schizophrenia ICD Codes: F20.9 - Schizophrenia, unspecified SNOMED: 71253373 (10) Acute respiratory failure ICD Codes: J96.00 - Acute respiratory failure, unspecified whether with hypoxia or hypercapnia SNOMED: 97431901 (11) Septic shock ICD Codes: A41.9 - Sepsis, unspecified organism; R65.21 - Severe sepsis with septic shock SNOMED: 74257607 (12) Systolic heart failure ICD Codes: I50.20 - Unspecified systolic (congestive) heart failure SNOMED: 529785662 (13) Renal failure (ARF), acute on chronic ICD Codes: N17.9 - Acute kidney failure, unspecified; N18.9 - Chronic kidney disease, unspecified SNOMED: 093463756 (14) Bradyarrhythmia ICD Codes: I49.8 - Other specified cardiac arrhythmias SNOMED: 981665582 (15) Dysphagia ICD Codes: R13.10 - Dysphagia, unspecified SNOMED: 82556825, 313301183 (16) Encounter for PEG (percutaneous endoscopic gastrostomy) ICD Codes: Z43.1 - Encounter for attention to gastrostomy SNOMED: 362770627, 526168559 (17) cardiomyopathy with EF of 35% Status: stable, progressing, unchanged Assessment/Plan: tachy alanna syndrome cAD AZOTEMIA reviewed chart and labs poor prognosis sepsis afebrile fluid management per renal chf vitals stable Subjective ROS Limited/Unobtainable: Yes Allergies: Coded Allergies: No Known Allergies (Unverified , 01/24/19) Objective Last 24 Hour Vital Signs Date Time Temp Pulse Resp B/P (MAP) Pulse Ox O2 Delivery O2 Flow Rate FiO2 02/10/19 15:00 45 18 128/50 (76) 100 02/10/19 14:00 46 21 124/52 (76) 99 02/10/19 13:00 62 19 126/58 (80) 99 02/10/19 12:00 44 02/10/19 12:00 47 20 126/47 (73) 93 02/10/19 12:00 Room Air 02/10/19 11:00 50 22 119/51 (73) 92 02/10/19 10:00 51 16 122/55 (77) 94 02/10/19 09:00 76 26 130/57 (81) 90 02/10/19 08:30 59 23 120/93 (102) 95 02/10/19 08:00 Room Air 02/10/19 08:00 56 02/10/19 08:00 97.6 50 20 118/52 (74) 94 02/10/19 07:00 51 23 124/47 (72) 93 02/10/19 06:03 67 18 106/44 (64) 93 02/10/19 06:00 85 29 73/60 (64) 96 02/10/19 05:38 114/69 02/10/19 05:00 54 21 112/48 (69) 97 02/10/19 04:00 Room Air 02/10/19 04:00 98.2 71 27 123/56 (78) 86 02/10/19 03:24 53 02/10/19 03:00 53 23 123/44 (70) 90 02/10/19 02:00 51 25 114/46 (68) 90 02/10/19 01:30 54 24 112/54 (73) 89 02/10/19 01:00 49 25 125/47 (73) 90 02/10/19 00:00 98.2 56 20 118/57 (77) 87 02/10/19 00:00 Room Air 02/09/19 23:28 46 02/09/19 23:00 45 24 108/51 (70) 91 02/09/19 22:30 59 27 86/69 (75) 90 02/09/19 22:00 57 18 102/60 (74) 94 02/09/19 21:00 48 19 109/60 (76) 94 02/09/19 20:00 97.5 54 22 116/49 (71) 93 02/09/19 20:00 Room Air 02/09/19 19:30 63 21 97/53 (68) 93 02/09/19 19:29 61 02/09/19 19:00 63 18 107/52 (70) 94 02/09/19 18:30 67 17 106/52 (70) 95 02/09/19 18:15 98/53 02/09/19 18:00 47 22 98/53 (68) 97 Intake and Output 02/09/19 02/10/19 18:59 06:59 Intake Total 575.259 ml 630 ml Output Total 620 ml 855 ml Balance -44.741 ml -225 ml IV Total 575.259 ml 600 ml Other 30 ml Output Urine Total 620 ml 855 ml Laboratory Tests 02/10/19 04:00: White Blood Count 9.7, Red Blood Count 3.65L, Hemoglobin 11.1L, Hematocrit 33.6L , Mean Corpuscular Volume 92, Mean Corpuscular Hemoglobin 30.5, Mean Corpuscular Hemoglobin Concent 33.1, Red Cell Distribution Width 14.5, Platelet Count 70L, Mean Platelet Volume 6.6, Neutrophils (%) (Auto) , Lymphocytes (%) ( Auto) , Monocytes (%) (Auto) , Eosinophils (%) (Auto) , Basophils (%) (Auto) , Differential Total Cells Counted 100, Neutrophils % (Manual) 77H, Lymphocytes % (Manual) 16L, Monocytes % (Manual) 7, Eosinophils % (Manual) 0, Basophils % ( Manual) 0, Band Neutrophils 0, Platelet Estimate DecreasedL, Platelet Morphology Normal, Hypochromasia 1+, Erythrocyte Sedimentation Rate 20, Sodium Level 143, Potassium Level 4.0, Chloride Level 108H, Carbon Dioxide Level 30, Anion Gap 6, Blood Urea Nitrogen 15, Creatinine 1.1, Estimat Glomerular Filtration Rate > 60, Glucose Level 147H, Calcium Level 7.2L, Phosphorus Level 2.4L, Magnesium Level 1.9, Total Bilirubin 0.6, Aspartate Amino Transf (AST/SGOT ) 43H, Alanine Aminotransferase (ALT/SGPT) 60, Alkaline Phosphatase 106, C- Reactive Protein, Quantitative 2.8H, Total Protein 5.6L, Albumin 2.0L, Globulin 3.6, Albumin/Globulin Ratio 0.6L 02/10/19 09:15: Ammonia 21 Height (Feet): 5 Height (Inches): 7.00 Weight (Pounds): 148 General Appearance: confused Respiratory/Chest: lungs clear Abdomen: soft Tomeka Holloway MD Feb 10, 2019 17:53
--- NOTE | 2019-02-10 18:00 | NUR ---
NURSE NOTES: Pt is very combative, states "I will kill you!!!" "I will put a hole in your head!!!" "leave me alone!!!". Awaiting for call back from Dr Paige. VS remain stable. Pt refused to be touched or gown changed.
--- NOTE | 2019-02-10 19:24 | Surgery Progress Note ---
Surgery Progress Note Subjective Symptoms: other Objective Last 24 Hour Vital Signs Date Time Temp Pulse Resp B/P (MAP) Pulse Ox O2 Delivery O2 Flow Rate FiO2 02/10/19 19:00 76 16 99/75 (83) 02/10/19 18:00 63 16 124/53 (76) 98 02/10/19 17:00 63 17 117/54 (75) 97 02/10/19 16:00 Room Air 02/10/19 16:00 50 02/10/19 16:00 97.6 56 15 132/54 (80) 100 02/10/19 15:00 45 18 128/50 (76) 100 02/10/19 14:00 46 21 124/52 (76) 99 02/10/19 13:00 62 19 126/58 (80) 99 02/10/19 12:00 44 02/10/19 12:00 97.0 47 20 126/47 (73) 93 02/10/19 12:00 Room Air 02/10/19 11:00 50 22 119/51 (73) 92 02/10/19 10:00 51 16 122/55 (77) 94 02/10/19 09:00 76 26 130/57 (81) 90 02/10/19 08:30 59 23 120/93 (102) 95 02/10/19 08:00 Room Air 02/10/19 08:00 56 02/10/19 08:00 97.6 50 20 118/52 (74) 94 02/10/19 07:00 51 23 124/47 (72) 93 02/10/19 06:03 67 18 106/44 (64) 93 02/10/19 06:00 85 29 73/60 (64) 96 02/10/19 05:38 114/69 02/10/19 05:00 54 21 112/48 (69) 97 02/10/19 04:00 Room Air 02/10/19 04:00 98.2 71 27 123/56 (78) 86 02/10/19 03:24 53 02/10/19 03:00 53 23 123/44 (70) 90 02/10/19 02:00 51 25 114/46 (68) 90 02/10/19 01:30 54 24 112/54 (73) 89 02/10/19 01:00 49 25 125/47 (73) 90 02/10/19 00:00 98.2 56 20 118/57 (77) 87 02/10/19 00:00 Room Air 02/09/19 23:28 46 02/09/19 23:00 45 24 108/51 (70) 91 02/09/19 22:30 59 27 86/69 (75) 90 02/09/19 22:00 57 18 102/60 (74) 94 02/09/19 21:00 48 19 109/60 (76) 94 02/09/19 20:00 97.5 54 22 116/49 (71) 93 02/09/19 20:00 Room Air 02/09/19 19:30 63 21 97/53 (68) 93 02/09/19 19:29 61 I&O Intake and Output 02/09/19 02/10/19 18:59 06:59 Intake Total 575.259 ml 630 ml Output Total 620 ml 855 ml Balance -44.741 ml -225 ml IV Total 575.259 ml 600 ml Other 30 ml Output Urine Total 620 ml 855 ml Dressing: other Wound: other Drains: other Cardiovascular: RSR Respiratory: decreased breath sounds Abdomen: soft, present bowel sounds, non-distended Extremities: no cyanosis, other Laboratory Tests Test 02/10/19 04:00 02/10/19 09:15 White Blood Count 9.7 K/UL (4.8-10.8) Red Blood Count 3.65 M/UL (4.70-6.10) L Hemoglobin 11.1 G/DL (14.2-18.0) L Hematocrit 33.6 % (42.0-52.0) L Mean Corpuscular Volume 92 FL (80-99) Mean Corpuscular Hemoglobin 30.5 PG (27.0-31.0) Mean Corpuscular Hemoglobin Concent 33.1 G/DL (32.0-36.0) Red Cell Distribution Width 14.5 % (11.6-14.8) Platelet Count 70 K/UL (150-450) L Mean Platelet Volume 6.6 FL (6.5-10.1) Neutrophils (%) (Auto) % (45.0-75.0) Lymphocytes (%) (Auto) % (20.0-45.0) Monocytes (%) (Auto) % (1.0-10.0) Eosinophils (%) (Auto) % (0.0-3.0) Basophils (%) (Auto) % (0.0-2.0) Differential Total Cells Counted 100 Neutrophils % (Manual) 77 % (45-75) H Lymphocytes % (Manual) 16 % (20-45) L Monocytes % (Manual) 7 % (1-10) Eosinophils % (Manual) 0 % (0-3) Basophils % (Manual) 0 % (0-2) Band Neutrophils 0 % (0-8) Platelet Estimate Decreased L Platelet Morphology Normal Hypochromasia 1+ Erythrocyte Sedimentation Rate 20 MM/HR (0-20) Sodium Level 143 MMOL/L (136-145) Potassium Level 4.0 MMOL/L (3.5-5.1) Chloride Level 108 MMOL/L (98-107) H Carbon Dioxide Level 30 MMOL/L (21-32) Anion Gap 6 mmol/L (5-15) Blood Urea Nitrogen 15 mg/dL (7-18) Creatinine 1.1 MG/DL (0.55-1.30) Estimat Glomerular Filtration Rate > 60 mL/min (>60) Glucose Level 147 MG/DL (74-106) H Calcium Level 7.2 MG/DL (8.5-10.1) L Phosphorus Level 2.4 MG/DL (2.5-4.9) L Magnesium Level 1.9 MG/DL (1.8-2.4) Total Bilirubin 0.6 MG/DL (0.2-1.0) Aspartate Amino Transf (AST/SGOT) 43 U/L (15-37) H Alanine Aminotransferase (ALT/SGPT) 60 U/L (12-78) Alkaline Phosphatase 106 U/L (46-116) C-Reactive Protein, Quantitative 2.8 mg/dL (0.00-0.90) H Total Protein 5.6 G/DL (6.4-8.2) L Albumin 2.0 G/DL (3.4-5.0) L Globulin 3.6 g/dL Albumin/Globulin Ratio 0.6 (1.0-2.7) L Ammonia 21 umol/L (11-32) Plan Problems: (1) Sepsis Assessment & Plan: afebrile, HD improving HR -noted cardiology input leukocytosis lactic acidosis resolved slowly improving -IV abx as per ID -trend labs -swallow eval not ready so wait until once more responsive plan for trial swallow again next week if cont to fail will discuss with team about peg as currently he is fairly alert discussed with GI. reviewed bioethics Neuro eval for dementia -will follow with recs thank you (2) Septic shock (3) Wound, open Assessment & Plan: Patient presented on admission with multiple pressure injuries being identified. Non-blanching erythema without induration noted to sacrum ,Right and Left buttocks. Scattered areas that are darker and maroon in color noted within base of wound. Scrotum is also erythematous. Unstageable pressure injury noted to Left heel. Base of wound is 100% necrotic but soft. Erythematous margins with surrounding non-blanching erythema.(L)3.2cm x (W)3cm. no drainage Right heel is boggy with non-blanching erythema.. Keloid scar noted distal R tibia. Partial thickness ulcer noted to dorsal R foot. Base of wound is moist and viable. Small amt serous exudate noted. Scattered small dry scabs noted to dorsal R foot. Tx.Plan: Swab Dorsal R foot and R heel with Betadine. Cover with Optifoam drsg. Change every 3 days and prn. Apply Moisture Barrier Paste to buttocks. Cover sacrum with Optifoam drsg. Change every 3 days and prn. Apply Cavilon Skin Barrier to L heel.Cover with Optifoam drsg. Change every 7 days and prn. APM/JELLY mattress. Reposition at least every 2hours or as tolerated. Off-load heels with pillow. Nutritional Optimization Will monitor while in critical condition DAILY ESTIMATED NEEDS: Needs based on Critical care, sepsis, wounds 69kg 22-30 kcals/kg 8804-0801 total kcals 1.25-2 g protein/kg 86-138 g total protein 25-30 mL/kg 9366-8621 total fluid mLs NUTRITION DIAGNOSIS: Increased kcal and pro needs r/t sepsis, wound healing, and underweight status as evidenced by pt w respiratory distress now intubated, critically elev WBC (*29.7), elev BG (200's), w/ multiple wounds (refer to eval), pt is @88% if Spruce Body Weight. CURRENT TF: Glucerna 1.2 @30ml ENTERAL NUTRITION RECOMMENDATIONS: VITAL AF 1.2 @60ml/hr x24 hrs to provide 1440ml, 1728 kcal, 108g pro, 1168ml free H2O - WITH HEMODYNAMIC STABILITY, rec TF change to VITAL 1.2 to better meet est needs. Start @20ml/hr for 6 hrs. Advance as tolerated 10ml/hr q4-6 hrs to goal. - Flush per MD. HOB over 30 degrees If pt remains on pressor support, rec trophic feeds of Vital 1.2 @5-10ml/hr to maintain gut integrity. ------ ADDITIONAL RECOMMENDATIONS: 1) Per SNF: HT 71 inches, 152 lbs (69.1kg) 2) Wound care: Add DANIELA in 4oz water BID via OGT + VIT C 250mg BID (f/up w/ WC specialist) 3) Monitor lytes daily, replete as needed 4) Daily calibrated bed scale wts Mauricio Anne Feb 10, 2019 19:24
--- NOTE | 2019-02-10 19:32 | NUR ---
NURSE NOTES: Received report from EUGENIA Bond. Patient in bed awake,alert able to verbalize needs to staff. alert to name, with confusion and disorientation. Reality orientation provided and re-oriented x3 with incoherent responds. patient with episode of removing oxygen,verbally abusive to staff, cursing and hitting. encouraged patient to verbalized needs, fears and feelings to staff, per patient he wants to sleep. explained the importance v/s risk and benefits of oxygen. placed oxygen 2 Liters via n/c satting 98-100%. no s/s of hypo/hyperglycemia. denies any pain or discomfort. Costello draining. Right upper arm PICC intact runningD5 1/2 NS with KCL 40 mEq at 50cc/hr. wound dressing intact. with P 200 mattress for wound management. instructed patient to use call light for assistance. bed alarm on. bed locked and in low position. will continue plan of care.
--- NOTE | 2019-02-10 19:48 | NUR ---
HAND-OFF: Report given to Maggy BELLO. Endorsed plan of care.
[2019-02-10] MEDS: Dyna-Hex 2% Top Sol 2oz TOPIC SCH (20:58)
--- NOTE | 2019-02-10 21:32 | NUR ---
NURSE NOTES: Explained to patient the side effect of medications. Seroquel given by mouth with apple sauce tolerated well. no coughing.
--- NOTE | 2019-02-10 22:45 | Progress Note ---
DATE: 02/10/2019 SUBJECTIVE: The patient is a 68-year-old male with sepsis and dehydration. The patient is seen and assessed in ICU. Continues to have some confusion, some disorganized thought process, decline in cognition below his baseline. That is why, the patient has continued to request daily psychiatric consultation because of his altered mental status, confusion, and decline in cognition below his baseline. . MENTAL STATUS EXAMINATION: This is a 68-year-old male. Appearance is disheveled. Attitude, irritable and agitated. Affect, guarded and restricted. Intellect, poor. Mood, depressed and anxious. Motor activity, psychomotor agitation. Insight and judgment is poor. DIAGNOSIS: Paranoid schizophrenia with acute exacerbation. PLAN: Continue to treat this patient with psychotropic medication regimen consisting of Seroquel 25 mg at bedtime and Namenda 5 mg p.o. daily. A 20 minutes of behavioral management. Chart reviewed. Discussed with staff. Seen and assessed at bedside. Stacie Paige M.D. DR: MEY JOB#: [id number] CC:
--- NOTE | 2019-02-10 23:30 | NUR ---
NURSE NOTES: Patient in bed sleeping comfortably. No s/s of acute respiratory and cardiac distress. on2L oxygen via N/C satting 100%. turned and repositioned q2 hour. call light within easy raech. no maoning no facila grimaces. will continue to monitor patient. Addendum: 02/11/19 at 0025 by ALENA BUSTAMANTE RN NURSE NOTES: Patient in bed sleeping comfortably. No s/s of acute respiratory and cardiac distress. on2L oxygen via N/C satting 100%. turned and repositioned q2 hour. call light within easy reach. no moaning no facial grimaces. will continue to monitor patient.
[2019-02-11] VITALS (24 sets, daily range): BP systolic 111–145; BP diastolic 47–104
--- NOTE | 2019-02-11 01:30 | NUR ---
NURSE NOTES: Patient in bed sleeping comfortably. No s/s of acute respiratory and cardiac distress. on2L oxygen via N/C satting 100%. turned and repositioned q2 hour. call light within easy reach. no moaning no facial grimaces. will continue to monitor patient.
--- NOTE | 2019-02-11 03:19 | Consultation ---
DATE OF CONSULTATION: 02/09/2019 NOTE: VERY POOR AUDIO NEUROLOGIC CONSULTATION CONSULTING PHYSICIAN: Demian Aguiar M.D. HISTORY OF PRESENT ILLNESS: The patient is a 68-year-old white male who has a history of schizophrenia. The patient was brought to the hospital with dyspnea. I was asked to see the patient to decide the question whether or he is capable of making decisions. The patient was subsequently to have opacity in the left upper lung field. Last chest x-ray done 2 days ago reveals no change . The patient is currently on dopamine drip, potassium phosphate, acetaminophen, chlorhexidine, doxycycline monohydrate, hydrocortisone 100 mg q.8 h., Namenda 5 mg His blood culture revealed no growth. . His urine revealed no bacterial growth. Initially, white count was elevated at 29,700. Today his white count is normal. platelets are low at 70,000 Generally it is around 150 or less. Liver function tests were normal. Calcium is low. His albumin is also low at 2 . The patient cannot give a history. PAST MEDICAL HISTORY: 1. see chart. 2. Chronic kidney disease. 3. Right renal carcinoma. 4. Schizophrenia. 5. Peripheral vascular disease. ALLERGIES: No known allergies. SOCIAL HISTORY: Unobtainable. HABITS: Unobtainable. PHYSICAL EXAMINATION: The patient is combative and agitated. VITAL SIGNS: blood pressure see chart, pulse is 51, temperature is 98.3 degrees. HEENT: Reveals poor dentition. NECK: Supple. . LUNGS: Breath sounds are decreased. CARDIOVASCULAR: heart tones were distant. NEUROLOGIC EXAMINATION: MENTAL STATUS: The patient is awake and alert he did not know the date. He did not know where he was.Knows his name. CRANIAL NERVE EXAMINATION: CRANIAL NERVE II: probably. CRANIAL NERVE III, IV, AND : Pupils are approximately 4 mm LIGHT REACTIVE. CRANIAL NERVE V: Corneals are intact. CRANIAL NERVE VII: Facial muscle strength seemed to be bilaterally symmetrical. CRANIAL NERVE VIII: Auditory acuity is partially intact. CRANIAL NERVES IX-XII: Could not be tested. MUSCLE EXAMINATION: He can move all 4 extremities . Reflexes could not be done. Rest of the exam could not be done. IMPRESSION: This patient has a history of schizophrenia and also has a metabolic encephalopathy related to his pulmonary disease and anemia and renal disease. He cannot comprehend and agree to decision making. He is significantly impaired with encephalopathy and cannot make decisions at least at this point. The patient is significantly confused to make decision to essentially exclude any rational decision making. . PLAN: the patient should improve with resolution of his encephalopathy. Demian Aguiar MD DR: Zheng JOB#: [id number] CC: JOSE ELIAS
--- NOTE | 2019-02-11 03:30 | NUR ---
NURSE NOTES: Bed bath given tolerated well. no s/s of hypo/hyperglycemia. no fever. no n/v. on P200 mattress for wound management. contact isolation maintained and observed.turned and repositioned. frequent visual checks continued.
[2019-02-11 05:12] LABS: HEMATOCRIT 32.5 % (42.0-52.0); HEMOGLOBIN 10.7 G/DL (14.2-18.0); MEAN CORPUSCULAR VOLUME 92 FL (80-99); PLATELET COUNT 59 K/UL (150-450); RED BLOOD COUNT 3.52 M/UL (4.70-6.10); RED CELL DISTRIBUTION WIDTH 14.4 % (11.6-14.8); WHITE BLOOD COUNT 8.9 K/UL (4.8-10.8)
[2019-02-11 05:30] LABS: ANION GAP 4 mmol/L (5-15); BLOOD UREA NITROGEN 15 mg/dL (7-18); CALCIUM 7.7 MG/DL (8.5-10.1); CARBON DIOXIDE 32 MMOL/L (21-32); CHLORIDE 109 MMOL/L (98-107); CREATININE 1.1 MG/DL (0.55-1.30); POTASSIUM 4.6 MMOL/L (3.5-5.1); SODIUM 145 MMOL/L (136-145)
--- NOTE | 2019-02-11 05:30 | NUR ---
NURSE NOTES: patient in bed awake,alert able to make needs known to staff. no episode of agitation, no restlessness. encouraged patient to verbalize needs, fears and feelings to staff. patient is happy and verbalizes appreciation of taking care of him. all needs attended promptly.call light within easy reach.
[2019-02-11] MEDS: DOPamine 400mg/250ml 250 ML IV SCH (06:00)
[2019-02-11] MEDS: D5 1/2NS w/KCl 40meq 1000ml 1,000 ML IV SCH (06:25)
[2019-02-11] MEDS: NovoLOG Insulin Flexpen SUBQ SCH ×5 (06:26→18:06)
[2019-02-11] MEDS: Hydrocortisone 100mg Inj IV SCH ×3 (06:27→21:05)
--- NOTE | 2019-02-11 07:06 | NUR ---
HAND-OFF: Report given to Ronda BELLO. patient in bed sleeping comfortably. no s/s of acute distress noted. call light within easy reach.
--- NOTE | 2019-02-11 07:54 | General Progress Note ---
Assessment/Plan Problem List: (1) DM (diabetes mellitus) ICD Codes: E11.9 - Type 2 diabetes mellitus without complications SNOMED: 48946328 (2) cardiomyopathy with EF of 35% (3) Encounter for PEG (percutaneous endoscopic gastrostomy) ICD Codes: Z43.1 - Encounter for attention to gastrostomy SNOMED: 923874604, 517066094 (4) Dysphagia ICD Codes: R13.10 - Dysphagia, unspecified SNOMED: 17289638, 649008033 (5) Bradyarrhythmia ICD Codes: I49.8 - Other specified cardiac arrhythmias SNOMED: 179279356 (6) Systolic heart failure ICD Codes: I50.20 - Unspecified systolic (congestive) heart failure SNOMED: 175590869 (7) Schizophrenia ICD Codes: F20.9 - Schizophrenia, unspecified SNOMED: 40860314 (8) COPD (chronic obstructive pulmonary disease) ICD Codes: J44.9 - Chronic obstructive pulmonary disease, unspecified SNOMED: 82801633 Qualifiers: Qualified Codes: J44.9 - Chronic obstructive pulmonary disease, unspecified Status: stable, progressing, unchanged Assessment/Plan: failed swallow eval needs peg Bioethic consult recommended against peg if dementia is severe neuro eval appreciated>>> limited evaluation multiple attempt to place NGT failed needs Bioethic re evaluation and clearance for PEG Subjective ROS Limited/Unobtainable: No Allergies: Coded Allergies: No Known Allergies (Unverified , 01/24/19) Objective Last 24 Hour Vital Signs Date Time Temp Pulse Resp B/P (MAP) Pulse Ox O2 Delivery O2 Flow Rate FiO2 02/11/19 07:00 60 11 145/59 (87) 97 02/11/19 06:00 55 19 125/47 (73) 97 02/11/19 06:00 125/47 02/11/19 05:00 91 17 118/72 (87) 100 02/11/19 04:00 74 02/11/19 04:00 Nasal Cannula 2.0 02/11/19 04:00 98.0 77 24 134/104 (114) 89 02/11/19 03:00 56 20 124/57 (79) 100 02/11/19 02:00 55 19 121/57 (78) 93 02/11/19 01:00 53 21 128/53 (78) 02/11/19 00:00 Room Air 02/11/19 00:00 98.0 61 18 119/55 (76) 100 02/10/19 23:00 59 21 138/50 (79) 100 02/10/19 22:00 53 22 131/60 (83) 95 02/10/19 21:00 75 17 113/57 (75) 95 02/10/19 20:00 57 02/10/19 20:00 97.9 94 18 101/57 (72) 94 02/10/19 20:00 Nasal Cannula 2.0 02/10/19 19:00 76 16 99/75 (83) 02/10/19 18:00 63 16 124/53 (76) 98 02/10/19 17:00 63 17 117/54 (75) 97 02/10/19 16:00 Room Air 02/10/19 16:00 50 02/10/19 16:00 97.6 56 15 132/54 (80) 100 02/10/19 15:00 45 18 128/50 (76) 100 02/10/19 14:00 46 21 124/52 (76) 99 02/10/19 13:00 62 19 126/58 (80) 99 02/10/19 12:00 44 02/10/19 12:00 97.0 47 20 126/47 (73) 93 02/10/19 12:00 Room Air 02/10/19 11:00 50 22 119/51 (73) 92 02/10/19 10:00 51 16 122/55 (77) 94 02/10/19 09:00 76 26 130/57 (81) 90 02/10/19 08:30 59 23 120/93 (102) 95 02/10/19 08:00 Room Air 02/10/19 08:00 56 02/10/19 08:00 97.6 50 20 118/52 (74) 94 Intake and Output 02/10/19 02/11/19 19:00 07:00 Intake Total 881.092 ml 550 ml Output Total 690 ml 895 ml Balance 191.092 ml -345 ml IV Total 881.092 ml 550 ml Output Urine Total 690 ml 895 ml Laboratory Tests 02/10/19 09:15: Ammonia 21 02/11/19 03:30: White Blood Count 8.9, Red Blood Count 3.52L, Hemoglobin 10.7L, Hematocrit 32.5L , Mean Corpuscular Volume 92, Mean Corpuscular Hemoglobin 30.3, Mean Corpuscular Hemoglobin Concent 32.8, Red Cell Distribution Width 14.4, Platelet Count 59L, Mean Platelet Volume 6.7, Neutrophils (%) (Auto) , Lymphocytes (%) ( Auto) , Monocytes (%) (Auto) , Eosinophils (%) (Auto) , Basophils (%) (Auto) , Neutrophils % (Manual) [Pending], Lymphocytes % (Manual) [Pending], Platelet Estimate [Pending], Platelet Morphology [Pending], Sodium Level 145, Potassium Level 4.6, Chloride Level 109H, Carbon Dioxide Level 32, Anion Gap 4L, Blood Urea Nitrogen 15, Creatinine 1.1, Estimat Glomerular Filtration Rate > 60, Glucose Level 135H, Calcium Level 7.7L Height (Feet): 5 Height (Inches): 7.00 Weight (Pounds): 150 General Appearance: confused EENT: normal ENT inspection Neck: supple Cardiovascular: normal rate Respiratory/Chest: decreased breath sounds Abdomen: normal bowel sounds, non tender, soft Extremities: non-tender Leonel Valderrama MD Feb 11, 2019 07:54
--- NOTE | 2019-02-11 08:00 | NUR ---
NURSE NOTES: Received change of shift report from Maggy BELLO. Pt is awake, alert, confused, restless, irritable. Pt is currently on 2L of oxygen via nasal cannula with saturation 100%. Bilateral diminished lung sounds are noted with mild rhonchi. threat monitoring analyst displays NSR, heart rate 62, with weak peripheral pulses. Right upper arm double lumen PICC line is in place with IV fluid D5 0.45% NS KCL 40meq infusing at 50ml/hour. Abdomen is round, soft, nontender to touch with hypoactive bowel sounds. Diet remains NPO except for meds/ice chips. Costello catheter is draining clear/yellow urine. Skin has left heel unstageable wound, right heel stage 1, covered with optifoam dressings. Pt is on P200 pressure releasing mattress. Head of bed at 30 degrees, bed in lowest position, three side rails up, bed locked, and call light within reach. Will continue with plan of care.
[2019-02-11] MEDS: Midodrine 10mg tab NG SCH ×3 (09:00→17:03)
--- NOTE | 2019-02-11 09:00 | NUR ---
NURSE NOTES: Spoke with Dr Valderrama over the phone. Per MD, plan for PEG will be placed on hold while pt's platelet is low at 70. Per MD, no PEG until pt is transfused platelets. Dr Valderrama stated that himself attempted to insert NG tube x5 with no success due to pt being confused and uncooperative. Diet will remain NPO except for meds/ice chips at this time.
--- NOTE | 2019-02-11 09:43 | Pulmonolgy Critical Care Note ---
Critical Care - Asmt/Plan Problems: (1) Acute respiratory failure (2) Acute DVT (deep venous thrombosis) (3) Septic shock (4) Thrombocytopenia (5) Systolic heart failure (6) Chronic kidney disease (7) Malignant neoplasm of right kidney (8) COPD (chronic obstructive pulmonary disease) (9) Schizophrenia (10) cardiomyopathy with EF of 35% Respiratory: adjust tidal volume, adjust FIO2, CXR Cardiac: continue to monitor HR/BP Renal: keep IV fluid, check electrolytes Infectious Disease: check cultures, continue antibiotics Gastrointestinal: hold feedings Endocrine: monitor blood sugar Hematologic: monitor H/H, transfuse if hgb<8.5 Neurologic: PRN Ativan, keep patient comfortable Affect: PRN ativan Prophylaxis: Protonix, Heparin Notes Reviewed: inside sales advertising executive, cardio Discussed with: nurses, consultants, onsite case managermanager shop - Objective Last 24 Hour Vital Signs Date Time Temp Pulse Resp B/P (MAP) Pulse Ox O2 Delivery O2 Flow Rate FiO2 02/11/19 09:00 54 18 127/49 (75) 98 02/11/19 08:00 53 20 131/52 (78) 99 02/11/19 07:00 60 11 145/59 (87) 97 02/11/19 06:00 55 19 125/47 (73) 97 02/11/19 06:00 125/47 02/11/19 05:00 91 17 118/72 (87) 100 02/11/19 04:00 74 02/11/19 04:00 Nasal Cannula 2.0 02/11/19 04:00 98.0 77 24 134/104 (114) 89 02/11/19 03:00 56 20 124/57 (79) 100 02/11/19 02:00 55 19 121/57 (78) 93 02/11/19 01:00 53 21 128/53 (78) 02/11/19 00:00 Room Air 02/11/19 00:00 98.0 61 18 119/55 (76) 100 02/10/19 23:00 59 21 138/50 (79) 100 02/10/19 22:00 53 22 131/60 (83) 95 02/10/19 21:00 75 17 113/57 (75) 95 02/10/19 20:00 57 02/10/19 20:00 97.9 94 18 101/57 (72) 94 02/10/19 20:00 Nasal Cannula 2.0 02/10/19 19:00 76 16 99/75 (83) 02/10/19 18:00 63 16 124/53 (76) 98 02/10/19 17:00 63 17 117/54 (75) 97 02/10/19 16:00 Room Air 02/10/19 16:00 50 02/10/19 16:00 97.6 56 15 132/54 (80) 100 02/10/19 15:00 45 18 128/50 (76) 100 02/10/19 14:00 46 21 124/52 (76) 99 02/10/19 13:00 62 19 126/58 (80) 99 02/10/19 12:00 44 02/10/19 12:00 97.0 47 20 126/47 (73) 93 02/10/19 12:00 Room Air 02/10/19 11:00 50 22 119/51 (73) 92 02/10/19 10:00 51 16 122/55 (77) 94 Status: awake Condition: critical, improving HEENT: atraumatic Neck: full ROM Heart: HR/BP stable, HR/BP unstable Abdomen: soft, non-tender Extremities: no C/C/E Accucheck: 135 Critical Care - Subjective ROS Limited/Unobtainable: Yes Interval Events: no new events Condition: critical EKG Rhythm: Sinus Rhythm FI02: 21 Vent Support Breath Rate: 20 Vent Support Mode: CPAP Vent Tidal Volume: 500 Sputum Amount: None PEEP: 5.0 PIP: 13 Drips: off dopamin drip I&O: Intake and Output 02/10/19 02/11/19 19:00 07:00 Intake Total 881.092 ml 550 ml Output Total 690 ml 895 ml Balance 191.092 ml -345 ml IV Total 881.092 ml 550 ml Output Urine Total 690 ml 895 ml ET-Tube: 7.5 ET Position: 26 Labs: Laboratory Tests Test 02/11/19 03:30 White Blood Count 8.9 K/UL (4.8-10.8) Red Blood Count 3.52 M/UL (4.70-6.10) L Hemoglobin 10.7 G/DL (14.2-18.0) L Hematocrit 32.5 % (42.0-52.0) L Mean Corpuscular Volume 92 FL (80-99) Mean Corpuscular Hemoglobin 30.3 PG (27.0-31.0) Mean Corpuscular Hemoglobin Concent 32.8 G/DL (32.0-36.0) Red Cell Distribution Width 14.4 % (11.6-14.8) Platelet Count 59 K/UL (150-450) L Mean Platelet Volume 6.7 FL (6.5-10.1) Neutrophils (%) (Auto) % (45.0-75.0) Lymphocytes (%) (Auto) % (20.0-45.0) Monocytes (%) (Auto) % (1.0-10.0) Eosinophils (%) (Auto) % (0.0-3.0) Basophils (%) (Auto) % (0.0-2.0) Differential Total Cells Counted 100 Neutrophils % (Manual) 73 % (45-75) Lymphocytes % (Manual) 18 % (20-45) L Monocytes % (Manual) 9 % (1-10) Eosinophils % (Manual) 0 % (0-3) Basophils % (Manual) 0 % (0-2) Band Neutrophils 0 % (0-8) Platelet Estimate Decreased L Platelet Morphology Normal Hypochromasia 1+ Anisocytosis 1+ Sodium Level 145 MMOL/L (136-145) Potassium Level 4.6 MMOL/L (3.5-5.1) Chloride Level 109 MMOL/L (98-107) H Carbon Dioxide Level 32 MMOL/L (21-32) Anion Gap 4 mmol/L (5-15) L Blood Urea Nitrogen 15 mg/dL (7-18) Creatinine 1.1 MG/DL (0.55-1.30) Estimat Glomerular Filtration Rate > 60 mL/min (>60) Glucose Level 135 MG/DL (74-106) H Calcium Level 7.7 MG/DL (8.5-10.1) Ron Ayoub MD Feb 11, 2019 09:43
--- NOTE | 2019-02-11 10:06 | Nephrology Progress Note ---
Assessment/Plan Problem List: (1) Renal failure (ARF), acute on chronic (2) Acute respiratory failure (3) Septic shock (4) Bradyarrhythmia Assessment Renal failure- Likely acute on Chronic- Cr lower Acute respiratory failure- intubated on Vent Septic Shock- On pressors COPD PVD Schizophrenia Plan NGT out K and Phos IV as needed Haldol PRN Now ( 02/02) extubated- tolerating well pulmonary support aim to taper dopamine stop IV fluid renal dose dopamin for low HR K supplement down on hydration One dose IV Lasix mag and Phos and K supplement as needed 2D Echo Low Ej Fx - Global Hypokinesis Avoid nephrotoxics afterload reduction monitor renal parameters urine studies ADRIAN IMPRESSION: Nonobstructive stones in the left kidney demonstrated. Bilateral renal cysts. Subjective ROS Limited/Unobtainable: No Constitutional: Reports: malaise Objective Objective Last 24 Hour Vital Signs Date Time Temp Pulse Resp B/P (MAP) Pulse Ox O2 Delivery O2 Flow Rate FiO2 02/11/19 09:00 54 18 127/49 (75) 98 02/11/19 08:00 53 20 131/52 (78) 99 02/11/19 07:00 60 11 145/59 (87) 97 02/11/19 06:00 55 19 125/47 (73) 97 02/11/19 06:00 125/47 02/11/19 05:00 91 17 118/72 (87) 100 02/11/19 04:00 74 02/11/19 04:00 Nasal Cannula 2.0 02/11/19 04:00 98.0 77 24 134/104 (114) 89 02/11/19 03:00 56 20 124/57 (79) 100 02/11/19 02:00 55 19 121/57 (78) 93 02/11/19 01:00 53 21 128/53 (78) 02/11/19 00:00 Room Air 02/11/19 00:00 98.0 61 18 119/55 (76) 100 02/10/19 23:00 59 21 138/50 (79) 100 02/10/19 22:00 53 22 131/60 (83) 95 02/10/19 21:00 75 17 113/57 (75) 95 02/10/19 20:00 57 02/10/19 20:00 97.9 94 18 101/57 (72) 94 02/10/19 20:00 Nasal Cannula 2.0 02/10/19 19:00 76 16 99/75 (83) 02/10/19 18:00 63 16 124/53 (76) 98 02/10/19 17:00 63 17 117/54 (75) 97 02/10/19 16:00 Room Air 02/10/19 16:00 50 02/10/19 16:00 97.6 56 15 132/54 (80) 100 02/10/19 15:00 45 18 128/50 (76) 100 02/10/19 14:00 46 21 124/52 (76) 99 02/10/19 13:00 62 19 126/58 (80) 99 02/10/19 12:00 44 02/10/19 12:00 97.0 47 20 126/47 (73) 93 02/10/19 12:00 Room Air 02/10/19 11:00 50 22 119/51 (73) 92 Intake and Output 02/10/19 02/11/19 19:00 07:00 Intake Total 881.092 ml 550 ml Output Total 690 ml 895 ml Balance 191.092 ml -345 ml IV Total 881.092 ml 550 ml Output Urine Total 690 ml 895 ml Laboratory Tests 02/11/19 03:30: White Blood Count 8.9, Red Blood Count 3.52L, Hemoglobin 10.7L, Hematocrit 32.5L , Mean Corpuscular Volume 92, Mean Corpuscular Hemoglobin 30.3, Mean Corpuscular Hemoglobin Concent 32.8, Red Cell Distribution Width 14.4, Platelet Count 59L, Mean Platelet Volume 6.7, Neutrophils (%) (Auto) , Lymphocytes (%) ( Auto) , Monocytes (%) (Auto) , Eosinophils (%) (Auto) , Basophils (%) (Auto) , Differential Total Cells Counted 100, Neutrophils % (Manual) 73, Lymphocytes % ( Manual) 18L, Monocytes % (Manual) 9, Eosinophils % (Manual) 0, Basophils % ( Manual) 0, Band Neutrophils 0, Platelet Estimate DecreasedL, Platelet Morphology Normal, Hypochromasia 1+, Anisocytosis 1+, Sodium Level 145, Potassium Level 4.6, Chloride Level 109H, Carbon Dioxide Level 32, Anion Gap 4L , Blood Urea Nitrogen 15, Creatinine 1.1, Estimat Glomerular Filtration Rate > 60, Glucose Level 135H, Calcium Level 7.7L Height (Feet): 5 Height (Inches): 7.00 Weight (Pounds): 150 General Appearance: agitated - at times Cardiovascular: bradycardia Respiratory/Chest: decreased breath sounds Abdomen: distended Bienvenido Gonzalez MD Feb 11, 2019 10:06
[2019-02-11] MEDS ORDERED: Haloperidol 5mg/ml Inj IM PRN (10:15)
--- NOTE | 2019-02-11 10:30 | NUR ---
NURSE NOTES: Pt was administered PRN Haldol per MD order for agitation. Pt was seen by Dr Gonzalez. IV fluid is being changed to D5 0.45NS at 50ml/hour. Orders noted to increase frequency of Seroquel. MD aware of pt's episodes of increased agitation, restlessness. VS remain stable. Addendum: 02/11/19 at 1553 by ESTEFANI VALLEJO RN MD added PRN Haldol Q4 hours for agitation and changed Seroquel to BID.
[2019-02-11] MEDS: Ascorbic Acid 500mg tab ORAL SCH ×2 (10:38→18:05)
[2019-02-11] MEDS: D5 1/2NS 1,000 ML IV SCH (10:38)
[2019-02-11] MEDS: Haloperidol 5mg/ml Inj IM PRN ×2 (10:39→22:11)
--- NOTE | 2019-02-11 12:30 | NUR ---
NURSE NOTES: Pt is resting with stable VS. Pt was seen by Dr Helm and Dr Anne. No new orders at this time. Plan for IVC filter is pending MD/bioethics agreement on the procedure. Pt was repositioned. VS remain stable. Pt is afebrile. Costello catheter continues to drain clear/yellow urine at an average of 50ml/hourly. IV fluid is infusing D5 0.45NS at 50ml/hour.
--- NOTE | 2019-02-11 12:55 | Cardiology Progress Note ---
Assessment/Plan Assessment/Plan 1. Septic syndrome. 2. Respiratory failure now extubated 3. Pneumonia. 4. Schizophrenia and dementia. 5. Urinary tract infection. 6. Renal failure. 7. Hypoalbuminemia/malnutrition. 8. Sinus tachycardia secondary to above resolved 9. Left ventricular systolic dysfunction. 10. sinus alanna cxr reviewed personally 02/09 renal fxn improved tele sinus / alanna on dopamine but "renal dose" only avoid any neg chronotropic agents , sinus alanna only no pauses on tele bp seem fien off dopamine awiats peg and ivc filter ? he ahs been awake to day has shown aggression Subjective Subjective he sasy he is sick but denies cp or sob Objective Last 24 Hour Vital Signs Date Time Temp Pulse Resp B/P (MAP) Pulse Ox O2 Delivery O2 Flow Rate FiO2 02/11/19 10:00 61 14 123/50 (74) 95 02/11/19 09:00 54 18 127/49 (75) 98 02/11/19 08:00 53 20 131/52 (78) 99 02/11/19 07:00 60 11 145/59 (87) 97 02/11/19 06:00 55 19 125/47 (73) 97 02/11/19 06:00 125/47 02/11/19 05:00 91 17 118/72 (87) 100 02/11/19 04:00 74 02/11/19 04:00 Nasal Cannula 2.0 02/11/19 04:00 98.0 77 24 134/104 (114) 89 02/11/19 03:00 56 20 124/57 (79) 100 02/11/19 02:00 55 19 121/57 (78) 93 02/11/19 01:00 53 21 128/53 (78) 02/11/19 00:00 Room Air 02/11/19 00:00 98.0 61 18 119/55 (76) 100 02/10/19 23:00 59 21 138/50 (79) 100 02/10/19 22:00 53 22 131/60 (83) 95 02/10/19 21:00 75 17 113/57 (75) 95 02/10/19 20:00 57 02/10/19 20:00 97.9 94 18 101/57 (72) 94 02/10/19 20:00 Nasal Cannula 2.0 02/10/19 19:00 76 16 99/75 (83) 02/10/19 18:00 63 16 124/53 (76) 98 02/10/19 17:00 63 17 117/54 (75) 97 02/10/19 16:00 Room Air 02/10/19 16:00 50 02/10/19 16:00 97.6 56 15 132/54 (80) 100 02/10/19 15:00 45 18 128/50 (76) 100 02/10/19 14:00 46 21 124/52 (76) 99 02/10/19 13:00 62 19 126/58 (80) 99 General Appearance: no apparent distress, alert, patient on isolation Cardiovascular: normal rate Respiratory/Chest: lungs clear Abdomen: normal bowel sounds, non tender, soft Extremities: no swelling Intake and Output 02/10/19 02/11/19 19:00 07:00 Intake Total 881.092 ml 550 ml Output Total 690 ml 895 ml Balance 191.092 ml -345 ml IV Total 881.092 ml 550 ml Output Urine Total 690 ml 895 ml Laboratory Tests Test 02/11/19 03:30 White Blood Count 8.9 K/UL (4.8-10.8) Red Blood Count 3.52 M/UL (4.70-6.10) L Hemoglobin 10.7 G/DL (14.2-18.0) L Hematocrit 32.5 % (42.0-52.0) L Mean Corpuscular Volume 92 FL (80-99) Mean Corpuscular Hemoglobin 30.3 PG (27.0-31.0) Mean Corpuscular Hemoglobin Concent 32.8 G/DL (32.0-36.0) Red Cell Distribution Width 14.4 % (11.6-14.8) Platelet Count 59 K/UL (150-450) L Mean Platelet Volume 6.7 FL (6.5-10.1) Neutrophils (%) (Auto) % (45.0-75.0) Lymphocytes (%) (Auto) % (20.0-45.0) Monocytes (%) (Auto) % (1.0-10.0) Eosinophils (%) (Auto) % (0.0-3.0) Basophils (%) (Auto) % (0.0-2.0) Differential Total Cells Counted 100 Neutrophils % (Manual) 73 % (45-75) Lymphocytes % (Manual) 18 % (20-45) L Monocytes % (Manual) 9 % (1-10) Eosinophils % (Manual) 0 % (0-3) Basophils % (Manual) 0 % (0-2) Band Neutrophils 0 % (0-8) Platelet Estimate Decreased L Platelet Morphology Normal Hypochromasia 1+ Anisocytosis 1+ Sodium Level 145 MMOL/L (136-145) Potassium Level 4.6 MMOL/L (3.5-5.1) Chloride Level 109 MMOL/L (98-107) H Carbon Dioxide Level 32 MMOL/L (21-32) Anion Gap 4 mmol/L (5-15) L Blood Urea Nitrogen 15 mg/dL (7-18) Creatinine 1.1 MG/DL (0.55-1.30) Estimat Glomerular Filtration Rate > 60 mL/min (>60) Glucose Level 135 MG/DL (74-106) H Calcium Level 7.7 MG/DL (8.5-10.1) L Sammy Helm MD Feb 11, 2019 12:55
[2019-02-11] MEDS ORDERED: NS 275ml ONE (13:19)
--- NOTE | 2019-02-11 13:21 | Surgery Progress Note ---
Surgery Progress Note Subjective Additional Comments more aggressive today spitting hostile at times Objective Last 24 Hour Vital Signs Date Time Temp Pulse Resp B/P (MAP) Pulse Ox O2 Delivery O2 Flow Rate FiO2 02/11/19 13:00 74 17 128/58 (81) 96 02/11/19 12:00 54 02/11/19 12:00 Nasal Cannula 2.0 02/11/19 12:00 58 20 121/52 (75) 96 02/11/19 11:00 62 19 128/57 (80) 94 02/11/19 10:00 61 14 123/50 (74) 95 02/11/19 09:00 54 18 127/49 (75) 98 02/11/19 08:00 Nasal Cannula 2.0 02/11/19 08:00 53 20 131/52 (78) 99 02/11/19 08:00 53 02/11/19 07:00 60 11 145/59 (87) 97 02/11/19 06:00 55 19 125/47 (73) 97 02/11/19 06:00 125/47 02/11/19 05:00 91 17 118/72 (87) 100 02/11/19 04:00 74 02/11/19 04:00 Nasal Cannula 2.0 02/11/19 04:00 98.0 77 24 134/104 (114) 89 02/11/19 03:00 56 20 124/57 (79) 100 02/11/19 02:00 55 19 121/57 (78) 93 02/11/19 01:00 53 21 128/53 (78) 02/11/19 00:00 Room Air 02/11/19 00:00 98.0 61 18 119/55 (76) 100 02/10/19 23:00 59 21 138/50 (79) 100 02/10/19 22:00 53 22 131/60 (83) 95 02/10/19 21:00 75 17 113/57 (75) 95 02/10/19 20:00 57 02/10/19 20:00 97.9 94 18 101/57 (72) 94 02/10/19 20:00 Nasal Cannula 2.0 02/10/19 19:00 76 16 99/75 (83) 02/10/19 18:00 63 16 124/53 (76) 98 02/10/19 17:00 63 17 117/54 (75) 97 02/10/19 16:00 Room Air 02/10/19 16:00 50 02/10/19 16:00 97.6 56 15 132/54 (80) 100 02/10/19 15:00 45 18 128/50 (76) 100 02/10/19 14:00 46 21 124/52 (76) 99 I&O Intake and Output 02/10/19 02/11/19 19:00 07:00 Intake Total 881.092 ml 550 ml Output Total 690 ml 895 ml Balance 191.092 ml -345 ml IV Total 881.092 ml 550 ml Output Urine Total 690 ml 895 ml Dressing: other Wound: other Drains: other Cardiovascular: RSR Respiratory: decreased breath sounds Abdomen: soft, present bowel sounds Extremities: no cyanosis, other Laboratory Tests Test 02/11/19 03:30 White Blood Count 8.9 K/UL (4.8-10.8) Red Blood Count 3.52 M/UL (4.70-6.10) L Hemoglobin 10.7 G/DL (14.2-18.0) L Hematocrit 32.5 % (42.0-52.0) L Mean Corpuscular Volume 92 FL (80-99) Mean Corpuscular Hemoglobin 30.3 PG (27.0-31.0) Mean Corpuscular Hemoglobin Concent 32.8 G/DL (32.0-36.0) Red Cell Distribution Width 14.4 % (11.6-14.8) Platelet Count 59 K/UL (150-450) L Mean Platelet Volume 6.7 FL (6.5-10.1) Neutrophils (%) (Auto) % (45.0-75.0) Lymphocytes (%) (Auto) % (20.0-45.0) Monocytes (%) (Auto) % (1.0-10.0) Eosinophils (%) (Auto) % (0.0-3.0) Basophils (%) (Auto) % (0.0-2.0) Differential Total Cells Counted 100 Neutrophils % (Manual) 73 % (45-75) Lymphocytes % (Manual) 18 % (20-45) L Monocytes % (Manual) 9 % (1-10) Eosinophils % (Manual) 0 % (0-3) Basophils % (Manual) 0 % (0-2) Band Neutrophils 0 % (0-8) Platelet Estimate Decreased L Platelet Morphology Normal Hypochromasia 1+ Anisocytosis 1+ Sodium Level 145 MMOL/L (136-145) Potassium Level 4.6 MMOL/L (3.5-5.1) Chloride Level 109 MMOL/L (98-107) H Carbon Dioxide Level 32 MMOL/L (21-32) Anion Gap 4 mmol/L (5-15) L Blood Urea Nitrogen 15 mg/dL (7-18) Creatinine 1.1 MG/DL (0.55-1.30) Estimat Glomerular Filtration Rate > 60 mL/min (>60) Glucose Level 135 MG/DL (74-106) H Calcium Level 7.7 MG/DL (8.5-10.1) L Plan Problems: (1) Sepsis Assessment & Plan: afebrile, HD improving HR -noted cardiology input leukocytosis lactic acidosis resolved slowly improving -IV abx as per ID -trend labs -swallow eval not ready so wait until once more responsive plan for trial swallow again next week if cont to fail will discuss with team about peg as currently he is fairly alert discussed with GI. reviewed bioethics Neuro eval for dementia -will follow with recs thank you (2) Septic shock (3) Wound, open Assessment & Plan: Patient presented on admission with multiple pressure injuries being identified. Non-blanching erythema without induration noted to sacrum ,Right and Left buttocks. Scattered areas that are darker and maroon in color noted within base of wound. Scrotum is also erythematous. Unstageable pressure injury noted to Left heel. Base of wound is 100% necrotic but soft. Erythematous margins with surrounding non-blanching erythema.(L)3.2cm x (W)3cm. no drainage Right heel is boggy with non-blanching erythema.. Keloid scar noted distal R tibia. Partial thickness ulcer noted to dorsal R foot. Base of wound is moist and viable. Small amt serous exudate noted. Scattered small dry scabs noted to dorsal R foot. Tx.Plan: Swab Dorsal R foot and R heel with Betadine. Cover with Optifoam drsg. Change every 3 days and prn. Apply Moisture Barrier Paste to buttocks. Cover sacrum with Optifoam drsg. Change every 3 days and prn. Apply Cavilon Skin Barrier to L heel.Cover with Optifoam drsg. Change every 7 days and prn. APM/JELLY mattress. Reposition at least every 2hours or as tolerated. Off-load heels with pillow. Nutritional Optimization Will monitor while in critical condition DAILY ESTIMATED NEEDS: Needs based on Critical care, sepsis, wounds 69kg 22-30 kcals/kg 0806-3673 total kcals 1.25-2 g protein/kg 86-138 g total protein 25-30 mL/kg 6751-9948 total fluid mLs NUTRITION DIAGNOSIS: Increased kcal and pro needs r/t sepsis, wound healing, and underweight status as evidenced by pt w respiratory distress now intubated, critically elev WBC (*29.7), elev BG (200's), w/ multiple wounds (refer to eval), pt is @88% if [place] Body Weight. CURRENT TF: Glucerna 1.2 @30ml ENTERAL NUTRITION RECOMMENDATIONS: VITAL AF 1.2 @60ml/hr x24 hrs to provide 1440ml, 1728 kcal, 108g pro, 1168ml free H2O - WITH HEMODYNAMIC STABILITY, rec TF change to VITAL 1.2 to better meet est needs. Start @20ml/hr for 6 hrs. Advance as tolerated 10ml/hr q4-6 hrs to goal. - Flush per MD. HOB over 30 degrees If pt remains on pressor support, rec trophic feeds of Vital 1.2 @5-10ml/hr to maintain gut integrity. ------ ADDITIONAL RECOMMENDATIONS: 1) Per SNF: HT 71 inches, 152 lbs (69.1kg) 2) Wound care: Add DANIELA in 4oz water BID via OGT + VIT C 250mg BID (f/up w/ WC specialist) 3) Monitor lytes daily, replete as needed 4) Daily calibrated bed scale wts Mauricio Anne Feb 11, 2019 13:21
--- NOTE | 2019-02-11 13:57 | Hematology/Onc Progress Note ---
Assessment/Plan Assessment/Plan Assessment and Recs: # Dvt of the lower left superficial femoral vein with low platelets id contraindicated for ATC therapy --> ordered ivc filter, as per pulm--> at this time, contraindicated for anticoagulants --> no further heparin given low counts --> lack of consent, this is an emergency procedure # Thrombocytopenia - potential causes multifactorial, evaluate liver and viral etiologies to begin, us abd shows Coarsened hepatic echogenicity, may indicate hepatocellular disease, INr also high, also may be related to sepsis, recovery may have HEP C --> Hep panel and HIV ordered --> US abd does show some coarsened liver, query cirrhosis, Inr also high --> Peripheral smear ordered to evaluate for blasts /schistocytes --> abx and other meds have been reviewed --> ok for ppx if plt >50k w/ either heparin or lovenox --> Transfuse if Plt < 20k and fever, or if Plt < 10k without fever --> plt trend 74-->70->59k --> platelets to be given before procedure, this is an emergency procedure # Anemia of chronic disease, borderline --> hgb trend 11-->10.7 --> panel has been reviewed # Dysphagia, necessitating ng and peg --> ng unsuccesful --> as per gi, pending peg with consent # Septic shock with multiple infection --> on abx per id # Resp failure s/p intubation --> extubated 02/02 --> on nc # COPD # PVD # Schizophrenia # Cardiomyopathy # Dvt ppx scds, needs ivcf DW Rn and appreciate consultation. Subjective Allergies: Coded Allergies: No Known Allergies (Unverified , 01/24/19) Subjective 02/10: remains in the icu, labs noted, reviewed, no bleeding or chills, hep panel pend Objective Objective Current Medications Medications (Trade) Dose Ordered Sig/Ricardo Route PRN Reason Start Time Stop Time Status Last Admin Dose Admin Acetaminophen (Tylenol) 650 mg Q4H PRN ORAL fever 01/24/19 20:00 02/23/19 19:59 Ascorbic Acid (Vitamin C) 250 mg TWICE A DAY ORAL 01/27/19 18:00 02/26/19 17:59 02/11/19 10:38 Chlorhexidine Gluconate (Roseanna-Hex 2%) 1 applic DAILY@1999 TOPIC 02/07/19 20:00 03/09/19 19:59 02/10/19 20:58 Dextrose (Dextrose 50%) 25 ml Q30M PRN IV Hypoglycemia 01/25/19 19:00 02/24/19 18:59 Dextrose (Dextrose 50%) 50 ml Q30M PRN IV Hypoglycemia 01/25/19 19:00 02/24/19 18:59 Dextrose/Sodium Chloride 1,000 ml @ 50 mls/hr Q20H IV 02/11/19 10:15 03/13/19 10:14 02/11/19 10:38 Dopamine HCl/ Dextrose 250 ml @ 0 mls/hr Q24H IV 02/06/19 06:00 03/08/19 05:59 02/09/19 05:05 Haloperidol Lactate (Haldol) 2 mg Q4H PRN IM Agitation 02/11/19 10:15 03/13/19 10:14 02/11/19 10:39 Haloperidol Lactate (Haldol) 2.5 mg Q4H PRN IM Agitation 02/11/19 10:15 03/13/19 10:14 Hydrocortisone (Solu-CORTEF) 100 mg EVERY 8 HOURS IV 02/05/19 22:00 03/07/19 21:59 02/11/19 06:27 Insulin Aspart (NovoLOG) EVERY 6 HOURS SUBQ 01/26/19 00:00 02/25/19 00:00 02/11/19 06:26 Midodrine (Pro-Amatine) 10 mg THREE TIMES A DAY NG 02/04/19 18:00 03/01/19 12:59 02/10/19 12:46 Polyethylene Glycol (Miralax) 17 gm DAILYPRN PRN ORAL Constipation 01/24/19 20:00 02/23/19 19:59 02/01/19 05:47 Quetiapine Fumarate (SEROqueL) 25 mg Q12HR ORAL 02/11/19 10:15 03/13/19 10:14 02/11/19 10:39 Last 24 Hour Vital Signs Date Time Temp Pulse Resp B/P (MAP) Pulse Ox O2 Delivery O2 Flow Rate FiO2 02/11/19 13:00 74 17 128/58 (81) 96 02/11/19 12:00 54 02/11/19 12:00 Nasal Cannula 2.0 02/11/19 12:00 58 20 121/52 (75) 96 02/11/19 11:00 62 19 128/57 (80) 94 02/11/19 10:00 61 14 123/50 (74) 95 02/11/19 09:00 54 18 127/49 (75) 98 02/11/19 08:00 Nasal Cannula 2.0 02/11/19 08:00 53 20 131/52 (78) 99 02/11/19 08:00 53 02/11/19 07:00 60 11 145/59 (87) 97 02/11/19 06:00 55 19 125/47 (73) 97 02/11/19 06:00 125/47 02/11/19 05:00 91 17 118/72 (87) 100 02/11/19 04:00 74 02/11/19 04:00 Nasal Cannula 2.0 02/11/19 04:00 98.0 77 24 134/104 (114) 89 02/11/19 03:00 56 20 124/57 (79) 100 02/11/19 02:00 55 19 121/57 (78) 93 02/11/19 01:00 53 21 128/53 (78) 02/11/19 00:00 Room Air 02/11/19 00:00 98.0 61 18 119/55 (76) 100 02/10/19 23:00 59 21 138/50 (79) 100 02/10/19 22:00 53 22 131/60 (83) 95 02/10/19 21:00 75 17 113/57 (75) 95 02/10/19 20:00 57 02/10/19 20:00 97.9 94 18 101/57 (72) 94 02/10/19 20:00 Nasal Cannula 2.0 02/10/19 19:00 76 16 99/75 (83) 02/10/19 18:00 63 16 124/53 (76) 98 02/10/19 17:00 63 17 117/54 (75) 97 02/10/19 16:00 Room Air 02/10/19 16:00 50 02/10/19 16:00 97.6 56 15 132/54 (80) 100 02/10/19 15:00 45 18 128/50 (76) 100 02/10/19 14:00 46 21 124/52 (76) 99 02/10/19 13:00 62 19 126/58 (80) 99 02/10/19 12:00 44 02/10/19 12:00 97.0 47 20 126/47 (73) 93 02/10/19 12:00 Room Air 02/10/19 11:00 50 22 119/51 (73) 92 02/10/19 10:00 51 16 122/55 (77) 94 02/10/19 09:00 76 26 130/57 (81) 90 02/10/19 08:30 59 23 120/93 (102) 95 02/10/19 08:00 Room Air 02/10/19 08:00 56 02/10/19 08:00 97.6 50 20 118/52 (74) 94 02/10/19 07:00 51 23 124/47 (72) 93 02/10/19 06:03 67 18 106/44 (64) 93 02/10/19 06:00 85 29 73/60 (64) 96 02/10/19 05:38 114/69 02/10/19 05:00 54 21 112/48 (69) 97 02/10/19 04:00 Room Air 02/10/19 04:00 98.2 71 27 123/56 (78) 86 02/10/19 03:24 53 02/10/19 03:00 53 23 123/44 (70) 90 02/10/19 02:00 51 25 114/46 (68) 90 02/10/19 01:30 54 24 112/54 (73) 89 02/10/19 01:00 49 25 125/47 (73) 90 02/10/19 00:00 98.2 56 20 118/57 (77) 87 02/10/19 00:00 Room Air 02/09/19 23:28 46 02/09/19 23:00 45 24 108/51 (70) 91 02/09/19 22:30 59 27 86/69 (75) 90 02/09/19 22:00 57 18 102/60 (74) 94 02/09/19 21:00 48 19 109/60 (76) 94 02/09/19 20:00 97.5 54 22 116/49 (71) 93 02/09/19 20:00 Room Air 02/09/19 19:30 63 21 97/53 (68) 93 02/09/19 19:29 61 02/09/19 19:00 63 18 107/52 (70) 94 02/09/19 18:30 67 17 106/52 (70) 95 02/09/19 18:15 98/53 02/09/19 18:00 47 22 98/53 (68) 97 02/09/19 17:30 49 22 97/48 (64) 92 02/09/19 17:00 53 18 97/55 (69) 99 02/09/19 17:00 97/55 02/09/19 16:30 61 17 102/46 (64) 98 02/09/19 16:00 Room Air 02/09/19 16:00 68 02/09/19 16:00 114/47 02/09/19 16:00 97.5 60 18 114/47 (69) 92 02/09/19 15:30 55 18 104/45 (64) 93 02/09/19 15:00 65 29 105/47 (66) 93 02/09/19 15:00 105/47 02/09/19 14:30 78 25 102/44 (63) 92 02/09/19 14:00 51 20 114/52 (72) 90 02/09/19 14:00 114/52 Intake and Output 02/10/19 02/11/19 19:00 07:00 Intake Total 881.092 ml 550 ml Output Total 690 ml 895 ml Balance 191.092 ml -345 ml IV Total 881.092 ml 550 ml Output Urine Total 690 ml 895 ml Labs Test 02/08/19 16:55 02/09/19 03:30 02/09/19 14:30 02/10/19 04:00 Sodium Level 141 MMOL/L (136-145) 141 MMOL/L (136-145) 143 MMOL/L (136-145) Potassium Level 3.1 MMOL/L (3.5-5.1) 3.3 MMOL/L (3.5-5.1) 4.0 MMOL/L (3.5-5.1) Chloride Level 104 MMOL/L (98-107) 105 MMOL/L (98-107) 108 MMOL/L (98-107) Carbon Dioxide Level 30 MMOL/L (21-32) 30 MMOL/L (21-32) 30 MMOL/L (21-32) Anion Gap 7 mmol/L (5-15) 6 mmol/L (5-15) 6 mmol/L (5-15) Blood Urea Nitrogen 13 mg/dL (7-18) 13 mg/dL (7-18) 15 mg/dL (7-18) Creatinine 1.1 MG/DL (0.55-1.30) 1.0 MG/DL (0.55-1.30) 1.1 MG/DL (0.55-1.30) Estimat Glomerular Filtration Rate > 60 mL/min (>60) > 60 mL/min (>60) > 60 mL/min (>60) Glucose Level 152 MG/DL (74-106) 133 MG/DL (74-106) 147 MG/DL (74-106) Calcium Level 7.1 MG/DL (8.5-10.1) 7.1 MG/DL (8.5-10.1) 7.2 MG/DL (8.5-10.1) Total Bilirubin 0.6 MG/DL (0.2-1.0) 0.7 MG/DL (0.2-1.0) 0.6 MG/DL (0.2-1.0) Aspartate Amino Transf (AST/SGOT) 31 U/L (15-37) 32 U/L (15-37) 43 U/L (15-37) Alanine Aminotransferase (ALT/SGPT) 42 U/L (12-78) 45 U/L (12-78) 60 U/L (12-78) Alkaline Phosphatase 103 U/L (46-116) 99 U/L (46-116) 106 U/L (46-116) Total Protein 5.8 G/DL (6.4-8.2) 5.5 G/DL (6.4-8.2) 5.6 G/DL (6.4-8.2) Albumin 2.0 G/DL (3.4-5.0) 2.0 G/DL (3.4-5.0) 2.0 G/DL (3.4-5.0) Globulin 3.8 g/dL 3.5 g/dL 3.6 g/dL Albumin/Globulin Ratio 0.5 (1.0-2.7) 0.6 (1.0-2.7) 0.6 (1.0-2.7) White Blood Count 9.5 K/UL (4.8-10.8) 9.7 K/UL (4.8-10.8) Red Blood Count 3.77 M/UL (4.70-6.10) 3.65 M/UL (4.70-6.10) Hemoglobin 11.5 G/DL (14.2-18.0) 11.1 G/DL (14.2-18.0) Hematocrit 34.4 % (42.0-52.0) 33.6 % (42.0-52.0) Mean Corpuscular Volume 91 FL (80-99) 92 FL (80-99) Mean Corpuscular Hemoglobin 30.5 PG (27.0-31.0) 30.5 PG (27.0-31.0) Mean Corpuscular Hemoglobin Concent 33.4 G/DL (32.0-36.0) 33.1 G/DL (32.0-36.0) Red Cell Distribution Width 14.3 % (11.6-14.8) 14.5 % (11.6-14.8) Platelet Count 74 K/UL (150-450) 70 K/UL (150-450) Mean Platelet Volume 6.5 FL (6.5-10.1) 6.6 FL (6.5-10.1) Neutrophils (%) (Auto) % (45.0-75.0) % (45.0-75.0) Lymphocytes (%) (Auto) % (20.0-45.0) % (20.0-45.0) Monocytes (%) (Auto) % (1.0-10.0) % (1.0-10.0) Eosinophils (%) (Auto) % (0.0-3.0) % (0.0-3.0) Basophils (%) (Auto) % (0.0-2.0) % (0.0-2.0) Differential Total Cells Counted 100 100 Neutrophils % (Manual) 91 % (45-75) 77 % (45-75) Lymphocytes % (Manual) 5 % (20-45) 16 % (20-45) Monocytes % (Manual) 4 % (1-10) 7 % (1-10) Eosinophils % (Manual) 0 % (0-3) 0 % (0-3) Basophils % (Manual) 0 % (0-2) 0 % (0-2) Band Neutrophils 0 % (0-8) 0 % (0-8) Platelet Estimate Decreased Decreased Platelet Morphology Normal Normal Erythrocyte Sedimentation Rate 24 MM/HR (0-20) 20 MM/HR (0-20) Phosphorus Level 1.8 MG/DL (2.5-4.9) 2.4 MG/DL (2.5-4.9) Magnesium Level 1.9 MG/DL (1.8-2.4) 1.9 MG/DL (1.8-2.4) C-Reactive Protein, Quantitative 3.4 mg/dL (0.00-0.90) 2.8 mg/dL (0.00-0.90) Prothrombin Time 12.5 SEC (9.30-11.50) Prothromb Time International Ratio 1.2 (0.9-1.1) Hypochromasia 1+ Test 02/10/19 09:15 02/11/19 03:30 Ammonia 21 umol/L (11-32) White Blood Count 8.9 K/UL (4.8-10.8) Red Blood Count 3.52 M/UL (4.70-6.10) Hemoglobin 10.7 G/DL (14.2-18.0) Hematocrit 32.5 % (42.0-52.0) Mean Corpuscular Volume 92 FL (80-99) Mean Corpuscular Hemoglobin 30.3 PG (27.0-31.0) Mean Corpuscular Hemoglobin Concent 32.8 G/DL (32.0-36.0) Red Cell Distribution Width 14.4 % (11.6-14.8) Platelet Count 59 K/UL (150-450) Mean Platelet Volume 6.7 FL (6.5-10.1) Neutrophils (%) (Auto) % (45.0-75.0) Lymphocytes (%) (Auto) % (20.0-45.0) Monocytes (%) (Auto) % (1.0-10.0) Eosinophils (%) (Auto) % (0.0-3.0) Basophils (%) (Auto) % (0.0-2.0) Differential Total Cells Counted 100 Neutrophils % (Manual) 73 % (45-75) Lymphocytes % (Manual) 18 % (20-45) Monocytes % (Manual) 9 % (1-10) Eosinophils % (Manual) 0 % (0-3) Basophils % (Manual) 0 % (0-2) Band Neutrophils 0 % (0-8) Platelet Estimate Decreased Platelet Morphology Normal Hypochromasia 1+ Anisocytosis 1+ Sodium Level 145 MMOL/L (136-145) Potassium Level 4.6 MMOL/L (3.5-5.1) Chloride Level 109 MMOL/L (98-107) Carbon Dioxide Level 32 MMOL/L (21-32) Anion Gap 4 mmol/L (5-15) Blood Urea Nitrogen 15 mg/dL (7-18) Creatinine 1.1 MG/DL (0.55-1.30) Estimat Glomerular Filtration Rate > 60 mL/min (>60) Glucose Level 135 MG/DL (74-106) Calcium Level 7.7 MG/DL (8.5-10.1) Height (Feet): 5 Height (Inches): 7.00 Weight (Pounds): 150 Objective Physical Exam Vital Signs noted Gen: agitated Neck: supple Respiratory: normal breath sounds + 2l nc Cardiovascular: normal rate Gastrointestinal: soft Rectal: deferred Neurologic: alert, responsive Med Izquierdo MD Feb 11, 2019 13:57
--- NOTE | 2019-02-11 15:00 | NUR ---
NURSE NOTES: Order was received from Dr Izquierdo to transfuse pt with 1 unit of platelet. Consent form was signed by and submitted to blood bank along with MD note indicating need for transfusion as pt is unable to sign consent and does not have family to sign on his behalf. Paperwork was submitted to Skyler Gibbons (receiver/laborer) at the blood bank. Per Skyler, pathologist from lab/blood bank will contact Dr Izquierdo prior to dispensing platelet due to protocol (infuse platelet if level below 20K). Awaiting for blood bank-response/update.
--- NOTE | 2019-02-11 16:00 | NUR ---
NURSE NOTES: Spoke with weight reducing technician at blood back, 1 unit of platelet has just been ordered through [facility], waiting for delivery. Pt is resting with stable VS and in no apparent distress.
--- NOTE | 2019-02-11 18:30 | NUR ---
NURSE NOTES: Pt was cleaned, gown/bed linens were changed, dressings changed. Pt was repositioned with bilateral extremities elevated on pillows.
--- NOTE | 2019-02-11 19:15 | NUR ---
HAND-OFF: Report given to Maggy BELLO. VS remain stable. Endorsed plan of care.
--- NOTE | 2019-02-11 19:30 | NUR ---
NURSE NOTES: Received report from EUGENIA Bond. Patient in bed resting awake,alert able to verbalize needs to staff. alert to name, patient is calm and no episode of restless, no anxiety. encouraged patient to verbalized needs, fears and feelings to staff. explained the importance v/s risk and benefits of oxygen, satting 98-100%. no s/s of hypo/hyperglycemia. denies any pain or discomfort. Costello draining. Right upper arm PICC intact running D5 1/2 NS with at 50cc/hr. wound dressing intact. with P 200 mattress for wound management. instructed patient to use call light for assistance. bed alarm on. bed locked and in low position. will continue plan of care.
--- NOTE | 2019-02-11 20:16 | Progress Note ---
DATE: 02/11/2019 SUBJECTIVE: This is a 68-year-old male with sepsis and dehydration. He is confused, disorganized, and mood labile. He has no logical plan for his own self care. He . He is very confused and disorganized. He also had lot of psychomotor agitation in the ER. MENTAL STATUS EXAMINATION: This is a 58-year-old male. Appearance is disheveled. Attitude, irritable and agitated. Affect, guarded and restricted. Intellect, poor. Mood, depressed and anxious. Motor activity, psychomotor agitation. Attention span is poor. Orientation x2. Speech is pressured. Thought process, disorganized and illogical. Insight and judgment is poor. DIAGNOSIS: Paranoid schizophrenia, acute exacerbation. PLAN: Continue to monitor this patient to prevent any further decline in his cognition. Provided with 20 minutes of reality-based supportive psychotherapy. Chart reviewed. Discussed with staff. Seen and assessed at bedside. A 20 minutes of behavioral management provided. Stacie Paige M.D. DR: JRARED JOB#: [id number] CC:
[2019-02-11] MEDS: Dyna-Hex 2% Top Sol 2oz TOPIC SCH (21:05)
--- NOTE | 2019-02-11 22:19 | NUR ---
NURSE NOTES: patient non-compliant removing oxygen and pulling out PICC line, hitting staff and verbally abusive encouraged patient to verbalized needs,fears and feelings to staff. Reality orientation provided. explained the importance v/s risk and benefits of keeping oxygen via n/c and PICC line offered TV, talk therapy and repositioned not effective. oxygen saturation without 02 86%. Haldol 2mg IVP given on right deltoid. Call light within easy reach. will continue to monitor patient.
--- NOTE | 2019-02-11 22:21 | General Progress Note ---
Assessment/Plan Problem List: (1) COPD (chronic obstructive pulmonary disease) ICD Codes: J44.9 - Chronic obstructive pulmonary disease, unspecified SNOMED: 15850359 Qualifiers: Qualified Codes: J44.9 - Chronic obstructive pulmonary disease, unspecified (2) DM (diabetes mellitus) ICD Codes: E11.9 - Type 2 diabetes mellitus without complications SNOMED: 15881661 (3) Thrombocytopenia ICD Codes: D69.6 - Thrombocytopenia, unspecified SNOMED: 524578116 (4) Sepsis ICD Codes: A41.9 - Sepsis, unspecified organism SNOMED: 87874913 Qualifiers: Qualified Codes: A41.9 - Sepsis, unspecified organism (5) Wound, open ICD Codes: T14.8XXA - Other injury of unspecified body region, initial encounter SNOMED: 937469680 (6) Chronic kidney disease ICD Codes: N18.9 - Chronic kidney disease, unspecified SNOMED: 185274079 (7) Malignant neoplasm of right kidney ICD Codes: C64.1 - Malignant neoplasm of right kidney, except renal pelvis SNOMED: 399673996 (8) PVD (peripheral vascular disease) ICD Codes: I73.9 - Peripheral vascular disease, unspecified SNOMED: 855161706 (9) Schizophrenia ICD Codes: F20.9 - Schizophrenia, unspecified SNOMED: 39354618 (10) Acute respiratory failure ICD Codes: J96.00 - Acute respiratory failure, unspecified whether with hypoxia or hypercapnia SNOMED: 98787765 (11) Septic shock ICD Codes: A41.9 - Sepsis, unspecified organism; R65.21 - Severe sepsis with septic shock SNOMED: 87248283 (12) Systolic heart failure ICD Codes: I50.20 - Unspecified systolic (congestive) heart failure SNOMED: 289159305 (13) Renal failure (ARF), acute on chronic ICD Codes: N17.9 - Acute kidney failure, unspecified; N18.9 - Chronic kidney disease, unspecified SNOMED: 062578863 (14) Bradyarrhythmia ICD Codes: I49.8 - Other specified cardiac arrhythmias SNOMED: 901960637 (15) Dysphagia ICD Codes: R13.10 - Dysphagia, unspecified SNOMED: 17838549, 248037305 (16) Encounter for PEG (percutaneous endoscopic gastrostomy) ICD Codes: Z43.1 - Encounter for attention to gastrostomy SNOMED: 574472489, 511914542 (17) cardiomyopathy with EF of 35% Status: stable, progressing, unchanged Assessment/Plan: tachy alanna syndrome renal failure not improving reviewed chart and labs sepsis afebrile fluid management per renal chf vitals stable Subjective ROS Limited/Unobtainable: Yes Constitutional: Reports: no symptoms Allergies: Coded Allergies: No Known Allergies (Unverified , 01/24/19) Objective Last 24 Hour Vital Signs Date Time Temp Pulse Resp B/P (MAP) Pulse Ox O2 Delivery O2 Flow Rate FiO2 02/11/19 21:00 56 18 125/58 (80) 99 02/11/19 20:00 Nasal Cannula 2.0 02/11/19 20:00 98.4 82 17 129/50 (76) 94 02/11/19 19:00 56 19 120/50 (73) 96 02/11/19 18:00 79 18 124/53 (76) 96 02/11/19 17:00 59 18 120/54 (76) 96 02/11/19 16:00 98.5 77 21 123/57 (79) 93 02/11/19 16:00 61 02/11/19 16:00 Nasal Cannula 2.0 02/11/19 15:00 80 21 135/73 (93) 91 02/11/19 14:00 59 17 136/65 (88) 97 02/11/19 13:00 74 17 128/58 (81) 96 02/11/19 12:00 54 02/11/19 12:00 Nasal Cannula 2.0 02/11/19 12:00 97.9 58 20 121/52 (75) 96 02/11/19 11:00 62 19 128/57 (80) 94 02/11/19 10:00 61 14 123/50 (74) 95 02/11/19 09:00 54 18 127/49 (75) 98 02/11/19 08:00 Nasal Cannula 2.0 02/11/19 08:00 53 20 131/52 (78) 99 02/11/19 08:00 53 02/11/19 07:00 60 11 145/59 (87) 97 02/11/19 06:00 55 19 125/47 (73) 97 02/11/19 06:00 125/47 02/11/19 05:00 91 17 118/72 (87) 100 02/11/19 04:00 74 02/11/19 04:00 Nasal Cannula 2.0 02/11/19 04:00 98.0 77 24 134/104 (114) 89 02/11/19 03:00 56 20 124/57 (79) 100 02/11/19 02:00 55 19 121/57 (78) 93 02/11/19 01:00 53 21 128/53 (78) 02/11/19 00:00 Room Air 02/11/19 00:00 98.0 61 18 119/55 (76) 100 02/10/19 23:00 59 21 138/50 (79) 100 Intake and Output 02/10/19 02/11/19 18:59 06:59 Intake Total 881.092 ml 600 ml Output Total 680 ml 885 ml Balance 201.092 ml -285 ml IV Total 881.092 ml 600 ml Output Urine Total 680 ml 885 ml Laboratory Tests 02/11/19 03:30: White Blood Count 8.9, Red Blood Count 3.52L, Hemoglobin 10.7L, Hematocrit 32.5L , Mean Corpuscular Volume 92, Mean Corpuscular Hemoglobin 30.3, Mean Corpuscular Hemoglobin Concent 32.8, Red Cell Distribution Width 14.4, Platelet Count 59L, Mean Platelet Volume 6.7, Neutrophils (%) (Auto) , Lymphocytes (%) ( Auto) , Monocytes (%) (Auto) , Eosinophils (%) (Auto) , Basophils (%) (Auto) , Differential Total Cells Counted 100, Neutrophils % (Manual) 73, Lymphocytes % ( Manual) 18L, Monocytes % (Manual) 9, Eosinophils % (Manual) 0, Basophils % ( Manual) 0, Band Neutrophils 0, Platelet Estimate DecreasedL, Platelet Morphology Normal, Hypochromasia 1+, Anisocytosis 1+, Sodium Level 145, Potassium Level 4.6, Chloride Level 109H, Carbon Dioxide Level 32, Anion Gap 4L , Blood Urea Nitrogen 15, Creatinine 1.1, Estimat Glomerular Filtration Rate > 60, Glucose Level 135H, Calcium Level 7.7L Height (Feet): 5 Height (Inches): 7.00 Weight (Pounds): 150 Cardiovascular: normal rate Respiratory/Chest: lungs clear Abdomen: soft Hadadz,Ali MD Feb 11, 2019 22:21
--- NOTE | 2019-02-11 22:49 | NUR ---
NURSE NOTES: Patient in bed watching TV, no episode of agitation, no restlessness, no anxiety, no hitting staff. patient is calm. denies any pain or discomfort. no s/s of acute and cardiac distress noted. No fever. no n/v. frequent visual checks continued. will continue plan of care.
[2019-02-12] VITALS (24 sets, daily range): BP systolic 107–138; BP diastolic 45–82
--- NOTE | 2019-02-12 00:49 | NUR ---
NURSE NOTES: patient in bed sleeping comfortably. no s/s of acute distress noted. turned and repositioned Q2hr. call light within easy reach. On P200 mattress for wound management. will continue plan of care.
[2019-02-12] MEDS: D5 1/2NS 1,000 ML IV SCH (03:59)
--- NOTE | 2019-02-12 04:49 | NUR ---
NURSE NOTES: Patient in bed watching TV. no agitation. no restlessness. encouraged patient to verbalized needs, fears and feelings to staff. no s/s of hypo/hyperglycemia. denies any pain or discomfort. Costello draining. Right upper arm PICC intact running D5 1/2 NS with at 50cc/hr. Costello intact. no urine output from [id number]. at 0400 patient had 500cc light danelle urine.wound dressing intact. with P 200 mattress for wound management. instructed patient to use call light for assistance. bed alarm on. bed locked and in low position. will continue plan of care.
[2019-02-12 05:28] LABS: HEMATOCRIT 30.6 % (42.0-52.0); HEMOGLOBIN 10.2 G/DL (14.2-18.0); MEAN CORPUSCULAR VOLUME 92 FL (80-99); PLATELET COUNT 46 K/UL (150-450); RED BLOOD COUNT 3.34 M/UL (4.70-6.10); RED CELL DISTRIBUTION WIDTH 14.4 % (11.6-14.8); WHITE BLOOD COUNT 7.7 K/UL (4.8-10.8)
[2019-02-12] MEDS: DOPamine 400mg/250ml 250 ML IV SCH (06:00)
[2019-02-12 06:01] LABS: PHOSPHORUS 2.1 MG/DL (2.5-4.9)
[2019-02-12 06:03] LABS: ALANINE AMINOTRANSFERASE 60 U/L (12-78); ALBUMIN/GLOBULIN RATIO 0.6 (1.0-2.7); ALKALINE PHOSPHATASE 103 U/L (46-116); ANION GAP 3 mmol/L (5-15); ASPARTATE AMINO TRANSFERASE 41 U/L (15-37); BILIRUBIN,TOTAL 0.7 MG/DL (0.2-1.0); BLOOD UREA NITROGEN 11 mg/dL (7-18); CALCIUM 7.5 MG/DL (8.5-10.1); CARBON DIOXIDE 34 MMOL/L (21-32); CHLORIDE 106 MMOL/L (98-107); POTASSIUM 3.7 MMOL/L (3.5-5.1); SODIUM 142 MMOL/L (136-145)
[2019-02-12] MEDS: Hydrocortisone 100mg Inj IV SCH ×3 (06:25→21:56)
[2019-02-12] MEDS: NovoLOG Insulin Flexpen SUBQ SCH ×4 (06:26→17:58)
--- NOTE | 2019-02-12 07:08 | Hematology/Onc Progress Note ---
Assessment/Plan Assessment/Plan Assessment and Recs: # Dvt of the lower left superficial femoral vein with low platelets id contraindicated for ATC therapy --> ordered ivc filter, as per pulm--> at this time, contraindicated for anticoagulants --> no further heparin given low counts --> lack of consent, this is an emergency procedure --> pending bioethics eval # Thrombocytopenia - potential causes multifactorial, evaluate liver and viral etiologies to begin, us abd shows Coarsened hepatic echogenicity, may indicate hepatocellular disease, INr also high, also may be related to sepsis, recovery may have HEP C --> Hep panel and HIV ordered --> US abd does show some coarsened liver, query cirrhosis, Inr also high --> Peripheral smear ordered to evaluate for blasts /schistocytes --> abx and other meds have been reviewed --> ok for ppx if plt >50k w/ either heparin or lovenox --> Transfuse if Plt < 20k and fever, or if Plt < 10k without fever --> plt trend 74-->70->59k-->46k --> platelets to be given before procedure, this is an emergency procedure # Anemia of chronic disease, borderline --> hgb trend 11-->10.7 --> panel has been reviewed # Dysphagia, necessitating ng and peg --> ng unsuccesful --> as per gi, pending peg with consent # Septic shock with multiple infection --> on abx per id # Resp failure s/p intubation --> extubated 02/02 --> on nc # COPD # PVD # Schizophrenia # Cardiomyopathy # Dvt ppx scds, needs ivcf DW Rn and appreciate consultation. Subjective HEENT: Denies: no symptoms, eye pain, blurred vision, tearing, double vision, ear pain, ear discharge, nose pain, nose congestion, throat pain, throat swelling, mouth pain, mouth swelling, other Cardiovascular: Denies: no symptoms, chest pain, edema, irregular heart rate, lightheadedness, palpitations, syncope, other Respiratory: Denies: no symptoms, cough, shortness of breath, SOB with excertion, SOB at rest, sputum, wheezing, other Genitourinary: Denies: no symptoms, burning, discharge, frequency, flank pain, hematuria, incontinence, pain, urgency, other Neurologic/Psychiatric: Denies: no symptoms, anxiety, depressed, emotional problems, headache, numbness, paresthesia, pre-existing deficit, seizure, tingling, tremors, weakness, other Endocrine: Denies: no symptoms, excessive sweating, flushing, intolerance to cold, intolerance to heat, increased hunger, increased thirst, increased urine, unexplained weight gain, unexplained weight loss, other Allergies: Coded Allergies: No Known Allergies (Unverified , 01/24/19) Subjective 02/11: remains in the icu, labs noted, reviewed, no bleeding or chills, hep panel pend 02/12: no events noted, remains in icu, needs bioethics pending eval, plts pending Objective Objective Current Medications Medications (Trade) Dose Ordered Sig/Ricardo Route PRN Reason Start Time Stop Time Status Last Admin Dose Admin Acetaminophen (Tylenol) 650 mg Q4H PRN ORAL fever 01/24/19 20:00 02/23/19 19:59 Ascorbic Acid (Vitamin C) 250 mg TWICE A DAY ORAL 01/27/19 18:00 02/26/19 17:59 02/11/19 18:05 Chlorhexidine Gluconate (Roseanna-Hex 2%) 1 applic DAILY@2000 TOPIC 02/07/19 20:00 03/09/19 19:59 02/11/19 21:05 Dextrose (Dextrose 50%) 25 ml Q30M PRN IV Hypoglycemia 01/25/19 19:00 02/24/19 18:59 Dextrose (Dextrose 50%) 50 ml Q30M PRN IV Hypoglycemia 01/25/19 19:00 02/24/19 18:59 Dextrose/Sodium Chloride 1,000 ml @ 50 mls/hr Q20H IV 02/11/19 10:15 03/13/19 10:14 02/12/19 03:59 Dopamine HCl/ Dextrose 250 ml @ 0 mls/hr Q24H IV 02/06/19 06:00 03/08/19 05:59 02/09/19 05:05 Haloperidol Lactate (Haldol) 2 mg Q4H PRN IM Agitation 02/11/19 10:15 03/13/19 10:14 02/11/19 22:11 Hydrocortisone (Solu-CORTEF) 100 mg EVERY 8 HOURS IV 02/05/19 22:00 03/07/19 21:59 02/12/19 06:25 Insulin Aspart (NovoLOG) EVERY 6 HOURS SUBQ 01/26/19 00:00 02/25/19 00:00 02/12/19 06:26 Midodrine (Pro-Amatine) 10 mg THREE TIMES A DAY NG 02/04/19 18:00 03/01/19 12:59 02/10/19 12:46 Polyethylene Glycol (Miralax) 17 gm DAILYPRN PRN ORAL Constipation 01/24/19 20:00 02/23/19 19:59 02/01/19 05:47 Quetiapine Fumarate (SEROqueL) 25 mg Q12HR ORAL 02/11/19 10:15 03/13/19 10:14 02/11/19 21:05 Last 24 Hour Vital Signs Date Time Temp Pulse Resp B/P (MAP) Pulse Ox O2 Delivery O2 Flow Rate FiO2 02/12/19 06:00 136/69 02/12/19 06:00 54 18 136/69 (91) 99 02/12/19 05:00 53 18 111/58 (75) 99 02/12/19 04:00 98.5 81 19 126/60 (82) 98 02/12/19 04:00 70 02/12/19 04:00 Nasal Cannula 2.0 02/12/19 03:00 52 18 138/56 (83) 100 02/12/19 02:00 53 16 137/48 (77) 100 02/12/19 01:00 71 17 127/55 (79) 100 02/12/19 00:00 56 19 120/51 (74) 100 02/12/19 00:00 98.0 56 19 120/51 (74) 100 02/12/19 00:00 Nasal Cannula 2.0 02/11/19 23:00 69 18 121/54 (76) 97 02/11/19 22:00 87 18 111/59 (76) 94 02/11/19 21:00 56 18 125/58 (80) 99 02/11/19 20:00 Nasal Cannula 2.0 02/11/19 20:00 98.4 82 17 129/50 (76) 94 02/11/19 20:00 57 02/11/19 19:00 56 19 120/50 (73) 96 02/11/19 18:00 79 18 124/53 (76) 96 02/11/19 17:00 59 18 120/54 (76) 96 02/11/19 16:00 98.5 77 21 123/57 (79) 93 02/11/19 16:00 61 02/11/19 16:00 Nasal Cannula 2.0 02/11/19 15:00 80 21 135/73 (93) 91 02/11/19 14:00 59 17 136/65 (88) 97 02/11/19 13:00 74 17 128/58 (81) 96 02/11/19 12:00 54 02/11/19 12:00 Nasal Cannula 2.0 02/11/19 12:00 97.9 58 20 121/52 (75) 96 02/11/19 11:00 62 19 128/57 (80) 94 02/11/19 10:00 61 14 123/50 (74) 95 02/11/19 09:00 54 18 127/49 (75) 98 02/11/19 08:00 Nasal Cannula 2.0 02/11/19 08:00 53 20 131/52 (78) 99 02/11/19 08:00 53 02/11/19 07:00 60 11 145/59 (87) 97 02/11/19 06:00 55 19 125/47 (73) 97 02/11/19 06:00 125/47 02/11/19 05:00 91 17 118/72 (87) 100 02/11/19 04:00 74 02/11/19 04:00 Nasal Cannula 2.0 02/11/19 04:00 98.0 77 24 134/104 (114) 89 02/11/19 03:00 56 20 124/57 (79) 100 02/11/19 02:00 55 19 121/57 (78) 93 02/11/19 01:00 53 21 128/53 (78) 02/11/19 00:00 Room Air 02/11/19 00:00 98.0 61 18 119/55 (76) 100 02/10/19 23:00 59 21 138/50 (79) 100 02/10/19 22:00 53 22 131/60 (83) 95 02/10/19 21:00 75 17 113/57 (75) 95 02/10/19 20:00 57 02/10/19 20:00 97.9 94 18 101/57 (72) 94 02/10/19 20:00 Nasal Cannula 2.0 02/10/19 19:00 76 16 99/75 (83) 02/10/19 18:00 63 16 124/53 (76) 98 02/10/19 17:00 63 17 117/54 (75) 97 02/10/19 16:00 Room Air 02/10/19 16:00 50 02/10/19 16:00 97.6 56 15 132/54 (80) 100 02/10/19 15:00 45 18 128/50 (76) 100 02/10/19 14:00 46 21 124/52 (76) 99 02/10/19 13:00 62 19 126/58 (80) 99 02/10/19 12:00 44 02/10/19 12:00 97.0 47 20 126/47 (73) 93 02/10/19 12:00 Room Air 02/10/19 11:00 50 22 119/51 (73) 92 02/10/19 10:00 51 16 122/55 (77) 94 02/10/19 09:00 76 26 130/57 (81) 90 02/10/19 08:30 59 23 120/93 (102) 95 02/10/19 08:00 Room Air 02/10/19 08:00 56 02/10/19 08:00 97.6 50 20 118/52 (74) 94 Intake and Output 02/11/19 02/12/19 19:00 07:00 Intake Total 575 ml 498 ml Output Total 825 ml 1130 ml Balance -250 ml -632 ml IV Total 575 ml 498 ml Output Urine Total 825 ml 1130 ml # Bowel Movements 2 Labs Test 02/09/19 14:30 02/10/19 04:00 02/10/19 09:15 02/11/19 03:30 Prothrombin Time 12.5 SEC (9.30-11.50) Prothromb Time International Ratio 1.2 (0.9-1.1) White Blood Count 9.7 K/UL (4.8-10.8) 8.9 K/UL (4.8-10.8) Red Blood Count 3.65 M/UL (4.70-6.10) 3.52 M/UL (4.70-6.10) Hemoglobin 11.1 G/DL (14.2-18.0) 10.7 G/DL (14.2-18.0) Hematocrit 33.6 % (42.0-52.0) 32.5 % (42.0-52.0) Mean Corpuscular Volume 92 FL (80-99) 92 FL (80-99) Mean Corpuscular Hemoglobin 30.5 PG (27.0-31.0) 30.3 PG (27.0-31.0) Mean Corpuscular Hemoglobin Concent 33.1 G/DL (32.0-36.0) 32.8 G/DL (32.0-36.0) Red Cell Distribution Width 14.5 % (11.6-14.8) 14.4 % (11.6-14.8) Platelet Count 70 K/UL (150-450) 59 K/UL (150-450) Mean Platelet Volume 6.6 FL (6.5-10.1) 6.7 FL (6.5-10.1) Neutrophils (%) (Auto) % (45.0-75.0) % (45.0-75.0) Lymphocytes (%) (Auto) % (20.0-45.0) % (20.0-45.0) Monocytes (%) (Auto) % (1.0-10.0) % (1.0-10.0) Eosinophils (%) (Auto) % (0.0-3.0) % (0.0-3.0) Basophils (%) (Auto) % (0.0-2.0) % (0.0-2.0) Differential Total Cells Counted 100 100 Neutrophils % (Manual) 77 % (45-75) 73 % (45-75) Lymphocytes % (Manual) 16 % (20-45) 18 % (20-45) Monocytes % (Manual) 7 % (1-10) 9 % (1-10) Eosinophils % (Manual) 0 % (0-3) 0 % (0-3) Basophils % (Manual) 0 % (0-2) 0 % (0-2) Band Neutrophils 0 % (0-8) 0 % (0-8) Platelet Estimate Decreased Decreased Platelet Morphology Normal Normal Hypochromasia 1+ 1+ Erythrocyte Sedimentation Rate 20 MM/HR (0-20) Sodium Level 143 MMOL/L (136-145) 145 MMOL/L (136-145) Potassium Level 4.0 MMOL/L (3.5-5.1) 4.6 MMOL/L (3.5-5.1) Chloride Level 108 MMOL/L (98-107) 109 MMOL/L (98-107) Carbon Dioxide Level 30 MMOL/L (21-32) 32 MMOL/L (21-32) Anion Gap 6 mmol/L (5-15) 4 mmol/L (5-15) Blood Urea Nitrogen 15 mg/dL (7-18) 15 mg/dL (7-18) Creatinine 1.1 MG/DL (0.55-1.30) 1.1 MG/DL (0.55-1.30) Estimat Glomerular Filtration Rate > 60 mL/min (>60) > 60 mL/min (>60) Glucose Level 147 MG/DL (74-106) 135 MG/DL (74-106) Calcium Level 7.2 MG/DL (8.5-10.1) 7.7 MG/DL (8.5-10.1) Phosphorus Level 2.4 MG/DL (2.5-4.9) Magnesium Level 1.9 MG/DL (1.8-2.4) Total Bilirubin 0.6 MG/DL (0.2-1.0) Aspartate Amino Transf (AST/SGOT) 43 U/L (15-37) Alanine Aminotransferase (ALT/SGPT) 60 U/L (12-78) Alkaline Phosphatase 106 U/L (46-116) C-Reactive Protein, Quantitative 2.8 mg/dL (0.00-0.90) Total Protein 5.6 G/DL (6.4-8.2) Albumin 2.0 G/DL (3.4-5.0) Globulin 3.6 g/dL Albumin/Globulin Ratio 0.6 (1.0-2.7) Ammonia 21 umol/L (11-32) Anisocytosis 1+ Test 02/12/19 03:30 White Blood Count 7.7 K/UL (4.8-10.8) Red Blood Count 3.34 M/UL (4.70-6.10) Hemoglobin 10.2 G/DL (14.2-18.0) Hematocrit 30.6 % (42.0-52.0) Mean Corpuscular Volume 92 FL (80-99) Mean Corpuscular Hemoglobin 30.5 PG (27.0-31.0) Mean Corpuscular Hemoglobin Concent 33.3 G/DL (32.0-36.0) Red Cell Distribution Width 14.4 % (11.6-14.8) Platelet Count 46 K/UL (150-450) Mean Platelet Volume 6.5 FL (6.5-10.1) Neutrophils (%) (Auto) % (45.0-75.0) Lymphocytes (%) (Auto) % (20.0-45.0) Monocytes (%) (Auto) % (1.0-10.0) Eosinophils (%) (Auto) % (0.0-3.0) Basophils (%) (Auto) % (0.0-2.0) Sodium Level 142 MMOL/L (136-145) Potassium Level 3.7 MMOL/L (3.5-5.1) Chloride Level 106 MMOL/L (98-107) Carbon Dioxide Level 34 MMOL/L (21-32) Anion Gap 3 mmol/L (5-15) Blood Urea Nitrogen 11 mg/dL (7-18) Creatinine 1.0 MG/DL (0.55-1.30) Estimat Glomerular Filtration Rate > 60 mL/min (>60) Glucose Level 132 MG/DL (74-106) Calcium Level 7.5 MG/DL (8.5-10.1) Phosphorus Level 2.1 MG/DL (2.5-4.9) Magnesium Level 1.6 MG/DL (1.8-2.4) Total Bilirubin 0.7 MG/DL (0.2-1.0) Aspartate Amino Transf (AST/SGOT) 41 U/L (15-37) Alanine Aminotransferase (ALT/SGPT) 60 U/L (12-78) Alkaline Phosphatase 103 U/L (46-116) C-Reactive Protein, Quantitative 2.1 mg/dL (0.00-0.90) Pro-B-Type Natriuretic Peptide 14473 pg/mL (0-125) Total Protein 5.3 G/DL (6.4-8.2) Albumin 2.0 G/DL (3.4-5.0) Globulin 3.3 g/dL Albumin/Globulin Ratio 0.6 (1.0-2.7) Height (Feet): 5 Height (Inches): 7.00 Weight (Pounds): 150 Objective Physical Exam Vital Signs noted Gen: agitated Neck: supple Respiratory: normal breath sounds + 2l nc Cardiovascular: normal rate Gastrointestinal: soft Rectal: deferred Neurologic: alert, responsive Med Izquierdo MD Feb 12, 2019 07:08
--- NOTE | 2019-02-12 07:08 | General Progress Note ---
Assessment/Plan Problem List: (1) DM (diabetes mellitus) ICD Codes: E11.9 - Type 2 diabetes mellitus without complications SNOMED: 16613377 (2) cardiomyopathy with EF of 35% (3) Encounter for PEG (percutaneous endoscopic gastrostomy) ICD Codes: Z43.1 - Encounter for attention to gastrostomy SNOMED: 366795895, 765031410 (4) Dysphagia ICD Codes: R13.10 - Dysphagia, unspecified SNOMED: 75955320, 391199157 (5) Bradyarrhythmia ICD Codes: I49.8 - Other specified cardiac arrhythmias SNOMED: 526180249 (6) Systolic heart failure ICD Codes: I50.20 - Unspecified systolic (congestive) heart failure SNOMED: 697864450 (7) Schizophrenia ICD Codes: F20.9 - Schizophrenia, unspecified SNOMED: 21726508 (8) COPD (chronic obstructive pulmonary disease) ICD Codes: J44.9 - Chronic obstructive pulmonary disease, unspecified SNOMED: 83957985 Qualifiers: Qualified Codes: J44.9 - Chronic obstructive pulmonary disease, unspecified Status: stable, progressing, unchanged Assessment/Plan: failed swallow eval needs peg Bioethic consult recommended against peg if dementia is severe neuro eval appreciated>>> limited evaluation multiple attempt to place NGT failed needs Bioethic re evaluation and clearance for PEG Subjective ROS Limited/Unobtainable: Yes Allergies: Coded Allergies: No Known Allergies (Unverified , 01/24/19) Objective Last 24 Hour Vital Signs Date Time Temp Pulse Resp B/P (MAP) Pulse Ox O2 Delivery O2 Flow Rate FiO2 02/12/19 06:00 136/69 02/12/19 06:00 54 18 136/69 (91) 99 02/12/19 05:00 53 18 111/58 (75) 99 02/12/19 04:00 98.5 81 19 126/60 (82) 98 02/12/19 04:00 70 02/12/19 04:00 Nasal Cannula 2.0 02/12/19 03:00 52 18 138/56 (83) 100 02/12/19 02:00 53 16 137/48 (77) 100 02/12/19 01:00 71 17 127/55 (79) 100 02/12/19 00:00 56 19 120/51 (74) 100 02/12/19 00:00 98.0 56 19 120/51 (74) 100 02/12/19 00:00 Nasal Cannula 2.0 02/11/19 23:00 69 18 121/54 (76) 97 02/11/19 22:00 87 18 111/59 (76) 94 02/11/19 21:00 56 18 125/58 (80) 99 02/11/19 20:00 Nasal Cannula 2.0 02/11/19 20:00 98.4 82 17 129/50 (76) 94 02/11/19 20:00 57 02/11/19 19:00 56 19 120/50 (73) 96 02/11/19 18:00 79 18 124/53 (76) 96 02/11/19 17:00 59 18 120/54 (76) 96 02/11/19 16:00 98.5 77 21 123/57 (79) 93 02/11/19 16:00 61 02/11/19 16:00 Nasal Cannula 2.0 02/11/19 15:00 80 21 135/73 (93) 91 02/11/19 14:00 59 17 136/65 (88) 97 02/11/19 13:00 74 17 128/58 (81) 96 02/11/19 12:00 54 02/11/19 12:00 Nasal Cannula 2.0 02/11/19 12:00 97.9 58 20 121/52 (75) 96 02/11/19 11:00 62 19 128/57 (80) 94 02/11/19 10:00 61 14 123/50 (74) 95 02/11/19 09:00 54 18 127/49 (75) 98 02/11/19 08:00 Nasal Cannula 2.0 02/11/19 08:00 53 20 131/52 (78) 99 02/11/19 08:00 53 Intake and Output 02/11/19 02/12/19 19:00 07:00 Intake Total 575 ml 498 ml Output Total 825 ml 1130 ml Balance -250 ml -632 ml IV Total 575 ml 498 ml Output Urine Total 825 ml 1130 ml # Bowel Movements 2 Laboratory Tests 02/12/19 03:30: White Blood Count 7.7, Red Blood Count 3.34L, Hemoglobin 10.2L, Hematocrit 30.6L , Mean Corpuscular Volume 92, Mean Corpuscular Hemoglobin 30.5, Mean Corpuscular Hemoglobin Concent 33.3, Red Cell Distribution Width 14.4, Platelet Count 46L, Mean Platelet Volume 6.5, Neutrophils (%) (Auto) , Lymphocytes (%) ( Auto) , Monocytes (%) (Auto) , Eosinophils (%) (Auto) , Basophils (%) (Auto) , Neutrophils % (Manual) [Pending], Lymphocytes % (Manual) [Pending], Platelet Estimate [Pending], Platelet Morphology [Pending], Sodium Level 142, Potassium Level 3.7, Chloride Level 106, Carbon Dioxide Level 34H, Anion Gap 3L, Blood Urea Nitrogen 11, Creatinine 1.0, Estimat Glomerular Filtration Rate > 60, Glucose Level 132H, Calcium Level 7.5L, Phosphorus Level 2.1L, Magnesium Level 1.6L, Total Bilirubin 0.7, Aspartate Amino Transf (AST/SGOT) 41H, Alanine Aminotransferase (ALT/SGPT) 60, Alkaline Phosphatase 103, C-Reactive Protein, Quantitative 2.1H, Pro-B-Type Natriuretic Peptide 16364N, Total Protein 5.3L, Albumin 2.0L, Globulin 3.3, Albumin/Globulin Ratio 0.6L Height (Feet): 5 Height (Inches): 7.00 Weight (Pounds): 150 General Appearance: alert EENT: normal ENT inspection Neck: supple Cardiovascular: normal rate Respiratory/Chest: decreased breath sounds Abdomen: normal bowel sounds, non tender, soft Extremities: non-tender Leonel Valderrama MD Feb 12, 2019 07:08
--- NOTE | 2019-02-12 07:20 | NUR ---
NURSE NOTES: Dr Izquierdo here to see the patient. mine shifter RN updated him with pt's current condition. Dr Izquierdo ordered platelet to give today regardless of IVC filter insertion when Nepro agrees. Will ask Dr Gonzalez for platelet transfusion.
--- NOTE | 2019-02-12 07:20 | NUR ---
HAND-OFF: Report given to Thony BELLO.
--- NOTE | 2019-02-12 07:21 | NUR ---
NURSE NOTES: Report received from EUGENIA Winter. Pt is sleeping in bed. Easily able to wake up. Resistive to care and confused at times. On N/C 2L. O2 sat 99%. Productive cough with phlegm noted. Sinus alanna on quality assurance monitor final 50's. Kept NPO as ordered. JONATHAN PICC line patent and asymptomatic. Pt is on D51/2NS at 50cc/hr. Costello in pace draining yellow urine to gravity. Bed in lowest position. Side rails up x3. Call light within reach. Will resume plan of care.
[2019-02-12] MEDS: Midodrine 10mg tab NG SCH ×3 (08:25→17:56)
[2019-02-12] MEDS: Ascorbic Acid 500mg tab ORAL SCH ×2 (08:26→17:57)
--- NOTE | 2019-02-12 08:42 | NUR ---
RD ASSESSMENT & RECOMMENDATIONS SEE CARE ACTIVITY FOR COMPLETE ASSESSMENT DAILY ESTIMATED NEEDS: Needs based on Pulmonary, sepsis, wounds 69kg 25-30 kcals/kg 5874-9385 total kcals 1.25-2 g protein/kg 86-138 g total protein 25-30 mL/kg 3316-0169 total fluid mLs NUTRITION DIAGNOSIS: *Swallowing difficulty R/T dysphagia, confusion as evidenced by s/p pt failed MBSS, SHELL CORE AND MOLDING SUPERVISOR recommends nonoral feeding, s/p failed attempts to insert NGT, no consent yet for PEG, pt is NPO day 9. *Increased kcal and pro needs r/t sepsis, wound healing, and underweight status as evidenced by pt w respiratory distress now s/p extubation, critically elev WBC (*29.7-> wnl), elev BGs-> now improved, w/ multiple wounds (refer to eval), pt is @88% if [place] Body Weight. CURRENT TF:NPO PO DIET RECOMMENDATIONS: IF SAFE FOR ORAL DIET: CCHO MED, LOW NA + Glucerna TID w/ meals ENTERAL NUTRITION RECOMMENDATIONS: Glucerna 1.5 @ 50ml/hr x24 hrs to provide 1200ml, 1800 kcal, 99g pro, 911ml free H2o -> W/ GI access, initiate Glucerna 1.5 @ 10ml/hr x 6 hrs -> Advance 10ml q 4-6 hrs as tolerated to goal rate. . -> HOB over 30 degrees/ water flush per MD ADDITIONAL RECOMMENDATIONS: 1) Per SNF: HT 71 inches, 152 lbs (69.1kg) + daily calibrated bedscale wts 2) Wound care: Continue Vit C; add MVI : Christian 1pkt BID w/ oral diet or w/ GI access 3) Monitor lytes daily, replete as needed (low mag and phos) 4) PT IS NPO DAY 9. REC SHELL CORE AND MOLDING SUPERVISOR RE-EVAL VS OBTAIN PEG CONSENT 5) Monitor BGs closely while on Solumedrol .
--- NOTE | 2019-02-12 08:45 | NUR ---
radiology: cxr completed 0830 hrs. nf
--- NOTE | 2019-02-12 09:00 | NUR ---
NURSE NOTES: ET CO2 monitor connected to pt by RT. Will monitor CO2 level. O2 sat 97-98% on NC 2L. No signs of pain or discomfort noted.
--- NOTE | 2019-02-12 09:51 | Infectious Diseases Prog Note ---
Assessment/Plan Assessment/Plan 68yo gentleman with PMH below presents with fever(100.1 is highest recorded in transfer packet) and worsened congestion from SNF. In the ED, pt was placed on oxygen then BiPAP but ultimately intubated. ID consulted for antimicrobial recommendation. Fever (Tmax 100.1) at shelter, SP Leukocytosis, hydrocortisone 01/25-02/02;' SP Lactic acidosis, SP Shock, was on levophed, titrated off, but now on dopamine MRSA PNA COPD? CHF? thick secretions per nurse flu swab negative 01/24 CXR: Extensive opacities within upper lobes demonstrated. In addition there is generalized interstitial densities throughout both lung craig. 01/25 CXR: Bilateral infiltrates appear fairly extensive but unchanged. TTE with EF 30-35% 01/25 sputum cx: MRSA 01/25 urine legionella ag: P 01/27 CXR: Extensive infiltrates bilaterally. Some degree of a superimposed interstitial edema has improved since the last exam. Endotracheal tube and NG tube remain in satisfactory in position. 01/28 CXR: Extensive bilateral infiltrates are again demonstrated without change. Tubes and lines are stable. 01/28 sputum cx: MRSA 01/30 CXR: 1. Overall similar patchy opacities in the lungs, most prominently in the right upper lung and right mid and lower lung. Probable small bilateral pleural effusions. 2. Endotracheal tube terminates in the region of the lower thoracic aorta above the cristina. Enteric tube courses past the diaphragm and out of the [id number], but the sidehole is seen near the GE junction. 02/02 CXR: Interim removal of previously demonstrated nasogastric tube and endotracheal tube. Right arm PICC remains. Bilateral fairly extensive interstitial opacities persist, unchanged. There is a small left pleural effusion again demonstrated 02/04 CXR: Patchy interstitial prominence demonstrated bilaterally. Heart size is stable. 02/08 CXR: No significant change compared to the prior exam Possible UTI? new mcmahon placed in ED 01/25 UA 15-20 WBC 01/25 Ucx: NG Renal US: Nonobstructive stones in the left kidney demonstrated. Bilateral renal cysts. Limited evaluation due to body habitus. 01/25 BCx: ngtd 01/31 bcx: ngtd Failed Swallow evaluation 02/04 at risk for aspiration pneumonitis and pneumonia Thrombocytopenia No diarrhea HIV test negative MRSA screen positive RLE skin graft b/l LE heel pressure ulcers and sacral ulcer Tobacco abuse COPD HTN Kidney cancer OA CKD Anemia Schizophrenia PVD CHF Plan: Continue to monitor off abx 02/11 SP Doxycycline #11 02/01 SP Azithromycin #5/5 for atypicals 01/31 Ertapenem #8 01/31 DC Amikacin and vancomycin #6 SP cefepime #1 SP flagyl #1 SP vancomycin #1 aspiration precaution, elevate HOB, oral care, frequent suction pulmonary toilet, chest PT DVT PPX discussed with RN Thank you for this consult. [facility] will continue to follow the patient with you. Subjective Allergies: Coded Allergies: No Known Allergies (Unverified , 01/24/19) Subjective afebrile no leukocytosis at 2L NC Objective Vital Signs Last 24 Hour Vital Signs Date Time Temp Pulse Resp B/P (MAP) Pulse Ox O2 Delivery O2 Flow Rate FiO2 02/12/19 09:00 53 14 127/66 (86) 99 02/12/19 08:30 94 Nasal Cannula 2.0 28 02/12/19 08:00 97.5 58 17 121/60 (80) 99 02/12/19 08:00 Nasal Cannula 2.0 02/12/19 07:37 56 02/12/19 07:00 51 18 123/55 (77) 100 02/12/19 06:00 136/69 02/12/19 06:00 54 18 136/69 (91) 99 02/12/19 05:00 53 18 111/58 (75) 99 02/12/19 04:00 98.5 81 19 126/60 (82) 98 02/12/19 04:00 70 02/12/19 04:00 Nasal Cannula 2.0 02/12/19 03:00 52 18 138/56 (83) 100 02/12/19 02:00 53 16 137/48 (77) 100 02/12/19 01:00 71 17 127/55 (79) 100 02/12/19 00:00 56 19 120/51 (74) 100 02/12/19 00:00 98.0 56 19 120/51 (74) 100 02/12/19 00:00 Nasal Cannula 2.0 02/11/19 23:00 69 18 121/54 (76) 97 02/11/19 22:00 87 18 111/59 (76) 94 02/11/19 21:00 56 18 125/58 (80) 99 02/11/19 20:00 Nasal Cannula 2.0 02/11/19 20:00 98.4 82 17 129/50 (76) 94 02/11/19 20:00 57 02/11/19 19:00 56 19 120/50 (73) 96 02/11/19 18:00 79 18 124/53 (76) 96 02/11/19 17:00 59 18 120/54 (76) 96 02/11/19 16:00 98.5 77 21 123/57 (79) 93 02/11/19 16:00 61 02/11/19 16:00 Nasal Cannula 2.0 02/11/19 15:00 80 21 135/73 (93) 91 02/11/19 14:00 59 17 136/65 (88) 97 02/11/19 13:00 74 17 128/58 (81) 96 02/11/19 12:00 54 02/11/19 12:00 Nasal Cannula 2.0 02/11/19 12:00 97.9 58 20 121/52 (75) 96 02/11/19 11:00 62 19 128/57 (80) 94 02/11/19 10:00 61 14 123/50 (74) 95 Height (Feet): 5 Height (Inches): 7.00 Weight (Pounds): 150 Objective Gen: NAD HEENT: anicteric sclera. CV: RRR. Resp: coarse. equal chest rise. Abd: soft. normoactive Bs+ Neuro: awake. appropriate Skin: RLE skin graft Laboratory Tests Test 02/12/19 03:30 White Blood Count 7.7 K/UL (4.8-10.8) Red Blood Count 3.34 M/UL (4.70-6.10) L Hemoglobin 10.2 G/DL (14.2-18.0) L Hematocrit 30.6 % (42.0-52.0) L Mean Corpuscular Volume 92 FL (80-99) Mean Corpuscular Hemoglobin 30.5 PG (27.0-31.0) Mean Corpuscular Hemoglobin Concent 33.3 G/DL (32.0-36.0) Red Cell Distribution Width 14.4 % (11.6-14.8) Platelet Count 46 K/UL (150-450) L Mean Platelet Volume 6.5 FL (6.5-10.1) Neutrophils (%) (Auto) % (45.0-75.0) Lymphocytes (%) (Auto) % (20.0-45.0) Monocytes (%) (Auto) % (1.0-10.0) Eosinophils (%) (Auto) % (0.0-3.0) Basophils (%) (Auto) % (0.0-2.0) Differential Total Cells Counted 100 Neutrophils % (Manual) 83 % (45-75) H Lymphocytes % (Manual) 13 % (20-45) L Monocytes % (Manual) 4 % (1-10) Eosinophils % (Manual) 0 % (0-3) Basophils % (Manual) 0 % (0-2) Band Neutrophils 0 % (0-8) Platelet Estimate Decreased L Platelet Morphology Normal Anisocytosis 1+ Sodium Level 142 MMOL/L (136-145) Potassium Level 3.7 MMOL/L (3.5-5.1) Chloride Level 106 MMOL/L (98-107) Carbon Dioxide Level 34 MMOL/L (21-32) H Anion Gap 3 mmol/L (5-15) L Blood Urea Nitrogen 11 mg/dL (7-18) Creatinine 1.0 MG/DL (0.55-1.30) Estimat Glomerular Filtration Rate > 60 mL/min (>60) Glucose Level 132 MG/DL (74-106) H Calcium Level 7.5 MG/DL (8.5-10.1) L Phosphorus Level 2.1 MG/DL (2.5-4.9) L Magnesium Level 1.6 MG/DL (1.8-2.4) L Total Bilirubin 0.7 MG/DL (0.2-1.0) Aspartate Amino Transf (AST/SGOT) 41 U/L (15-37) H Alanine Aminotransferase (ALT/SGPT) 60 U/L (12-78) Alkaline Phosphatase 103 U/L (46-116) C-Reactive Protein, Quantitative 2.1 mg/dL (0.00-0.90) H Pro-B-Type Natriuretic Peptide 79870 pg/mL (0-125) H Total Protein 5.3 G/DL (6.4-8.2) L Albumin 2.0 G/DL (3.4-5.0) L Globulin 3.3 g/dL Albumin/Globulin Ratio 0.6 (1.0-2.7) L Current Medications Medications (Trade) Dose Ordered Sig/Ricardo Route PRN Reason Start Time Stop Time Status Last Admin Dose Admin Acetaminophen (Tylenol) 650 mg Q4H PRN ORAL fever 01/24/19 20:00 02/23/19 19:59 Ascorbic Acid (Vitamin C) 250 mg TWICE A DAY ORAL 01/27/19 18:00 02/26/19 17:59 02/12/19 08:26 Chlorhexidine Gluconate (Roseanna-Hex 2%) 1 applic DAILY@2000 TOPIC 02/07/19 20:00 03/09/19 19:59 02/11/19 21:05 Dextrose (Dextrose 50%) 25 ml Q30M PRN IV Hypoglycemia 01/25/19 19:00 02/24/19 18:59 Dextrose (Dextrose 50%) 50 ml Q30M PRN IV Hypoglycemia 01/25/19 19:00 02/24/19 18:59 Dextrose/Sodium Chloride 1,000 ml @ 50 mls/hr Q20H IV 02/11/19 10:15 03/13/19 10:14 02/12/19 03:59 Dopamine HCl/ Dextrose 250 ml @ 0 mls/hr Q24H IV 02/06/19 06:00 03/08/19 05:59 02/09/19 05:05 Haloperidol Lactate (Haldol) 2 mg Q4H PRN IM Agitation 02/11/19 10:15 03/13/19 10:14 02/11/19 22:11 Hydrocortisone (Solu-CORTEF) 100 mg EVERY 8 HOURS IV 02/05/19 22:00 03/07/19 21:59 02/12/19 06:25 Insulin Aspart (NovoLOG) EVERY 6 HOURS SUBQ 01/26/19 00:00 02/25/19 00:00 02/12/19 06:26 Magnesium Sulfate 100 ml @ 100 mls/hr Q1H IVPB 02/12/19 10:00 02/12/19 13:59 Midodrine (Pro-Amatine) 10 mg THREE TIMES A DAY NG 02/04/19 18:00 03/01/19 12:59 02/12/19 08:25 Polyethylene Glycol (Miralax) 17 gm DAILYPRN PRN ORAL Constipation 01/24/19 20:00 02/23/19 19:59 02/01/19 05:47 Potassium Phosphate 30 mm/ Sodium Chloride 285 ml @ 47.5 mls/hr ONCE ONCE IV 02/12/19 14:00 02/12/19 19:59 Quetiapine Fumarate (SEROqueL) 50 mg Q12HR ORAL 02/12/19 21:00 03/13/19 10:14 Lesli Michaels M.D. Feb 12, 2019 09:51
--- NOTE | 2019-02-12 09:52 | NUR ---
NURSE NOTES: Speech therapist is at bedside, assessing the patient. Dr Gonzalez is here to see the patient. His orders are already in for abnormal lab electrolytes. Will carry out the orders.
--- NOTE | 2019-02-12 09:59 | NUR ---
NURSE NOTES: Notified Dr Izquierdo that platelet administration is up to hematology as per Dr Gonzalez. Dr Porras ordered to give platelet only if IVC filter insertion is scheduled. Addendum: 02/12/19 at 1156 by PALMER GANT RN RN NURSE NOTES: Notified Dr Izquierdo that platelet administration is up to hematology as per Dr Gonzalez. Dr Porras ordered to give platelet only if IVC filter insertion is scheduled. Will hold platelet administration as per order.
--- NOTE | 2019-02-12 10:10 | Diagnostic Imaging Report ---
Indication: Dyspnea Comparison: 02/08/2019 A single view chest radiograph was obtained. Findings: Patchy interstitial and alveolar densities demonstrated throughout the lungs bilaterally slightly worse compared to the prior occasion and most likely on the basis of interstitial edema. Heart size is relatively normal. Lung volumes are low. IMPRESSION: Suspected moderate pulmonary edema
--- NOTE | 2019-02-12 10:21 | NUR ---
ST NOTES: SWALLOW STATUS: PATIENT HAS NOT HAD TUBE FEEDINGS SINCE 02/03 PER EUGENIA BYNUM AND GEORGIANA PHILLIP. PATIENT REFUSING NGT PLACEMENT MULTIPLE TIMES AND MAY PULL. UPDATES PER SPECIALISTS: PER NEUROLOGIST, DR SEO: This patient has a history of schizophrenia and also has a metabolic encephalopathy related to his pulmonary disease and anemia and renal disease. comprehend and agree to decision making. He is significantly impaired with and cannot make decisions at least at this point. The patient is significantly confused to make decision to essentially exclude any rational decision making. . PLAN: the patient should improve . PER PSYCHIATRIST, DR EDGE 02/11/2019 WHERE HE STATES IS JUDGEMENT IS POOR: SUBJECTIVE: This is a 68-year-old male with sepsis and dehydration. He is confused, disorganized, and mood labile. He has no logical plan for his own self care. He . He is very confused and disorganized. He also had lot of psychomotor agitation in the ER. MENTAL STATUS EXAMINATION: This is a 58-year-old male. Appearance is disheveled. Attitude, irritable and agitated. Affect, guarded and restricted. Intellect, poor. Mood, depressed and anxious. Motor activity, psychomotor agitation. Attention span is poor. Orientation x2. Speech is pressured. Thought process, disorganized and illogical. Insight and judgment is poor. DIAGNOSIS: Paranoid schizophrenia, acute exacerbation. PLAN: Continue to monitor this patient to prevent any further decline in his cognition. Provided with 20 minutes of reality-based supportive psychotherapy. Chart reviewed. Discussed with staff. Seen and assessed at bedside. A 20 minutes of behavioral management provided. MOD BARIUM SWALLOW STUDY COMPLETED 02/04/19 ABOUT 8 DAYS AGO. ALTHOUGH HE MAY AT TIMES ASK FOR FOOD/DRINK, HE IS NOT THE BEST CANDIDATE TO REPEAT THIS STUDY HE INITIALLY REFUSED PO TRIALS WITH ST AND THEN ONLY TOOK 4 TSPS AND REFUSED ADDITIONAL PO TRIALS. UNLIKELY TO MEET NUTRITIONAL/HYDRATIONAL NEEDS IRRELEVANT OF ASPIRATION RISKS. ADDITIONALLY, LESS ALERT MANY TIMES THROUGHOUT DAY DUE TO PSYCH AND OTHER MEDS THAT MAY MAKE HIM SLEEPY. LUNGS STILL HAVE BILATERAL INFILTRATES AND HE REQUIRES OROPHARYNGEAL SUCTION OF MILD AMOUNTS OF SECRETIONS BACK OF THROAT AND THE SIDES OF HIS MOUTH. PATIENT STRONGLY DISLIKES OROPHARYNGEAL SUCTIONING. GIVEN TSP NECTAR THICK WATER, TOOK 4 SECONDS TO SWALLOW AND HAD WET VOICE AFTER THE SWALLOW, DID NOT ALLOW FOR OP SUCTION. GIVEN TSP (X3) OF JELLO, HE CHEWED IT FOR 4 SECONDS AND SWALLOWED NO ORAL RESIDUE AND NO OVERT S/S OF ASPIRATION BUT HAS SILENT ASPIRATION RISK. DID NOT ALLOW OP SUCTION. REFUSED MORE PO TRIALS AFTER THAT. D/W DR HOUSE WHO IS AWAITING BIOETHICS DECISION REGARDING PEG. PLAN: F/UP ON FRIDAY PER DR HOUSE REGARDING PEG PLACEMENT. IF PATIENT CONTINUES TO REFUSE NONORAL FEEDINGS AND IS GIVEN PO INTAKE FOR QUALITY OF LIFE OR COMFORT FEEDING PURPOSES, CONSIDER INITIATING LIQUIFIED PUREED LIKE NECTAR THICK LIQUIDS TSP ONLY USING STRICT ASPIRATION PRECAUTIONS AND ONE TO ONE FEEDING. SUCTION PRN AND CALORIE COUNT. PER RD, DIET TYPE SHOULD BE CCHO MED, LOW NA + Glucerna TID w/ meals. D/W DR SINCLAIR, FLETCHER BELLO, AND DR HOUSE D/W DR YOST WHO WILL D/W OTHER PHYSICIANS ON THE TEAM. Addendum: 02/12/19 at 1035 by BERKLEY NG MILIEU COUNSELOR ADDENDUM: DR ORTIZ WANTS PT TO HAVE A TRIAL PO FEEDING FOR NOW. EDUCATED/TRAINED EUGENIA BYNUM IN ASP PRECAUTIONS.
--- NOTE | 2019-02-12 10:24 | Nephrology Progress Note ---
Assessment/Plan Problem List: (1) Renal failure (ARF), acute on chronic (2) Acute respiratory failure (3) Septic shock (4) Bradyarrhythmia Assessment Renal failure- Likely acute on Chronic- Cr lower Acute respiratory failure- intubated on Vent Septic Shock- On pressors COPD PVD Schizophrenia Plan not eating - need PEG NGT could not be inserted in past trials K and Phos IV as needed Haldol PRN Now ( 02/02) extubated- tolerating well pulmonary support aim to taper dopamine stop IV fluid renal dose dopamin for low HR K supplement down on hydration One dose IV Lasix mag and Phos and K supplement as needed 2D Echo Low Ej Fx - Global Hypokinesis Avoid nephrotoxics afterload reduction monitor renal parameters urine studies ADRIAN IMPRESSION: Nonobstructive stones in the left kidney demonstrated. Bilateral renal cysts. Subjective ROS Limited/Unobtainable: No Constitutional: Reports: malaise, weakness Objective Objective Last 24 Hour Vital Signs Date Time Temp Pulse Resp B/P (MAP) Pulse Ox O2 Delivery O2 Flow Rate FiO2 02/12/19 09:00 53 14 127/66 (86) 99 02/12/19 08:30 94 Nasal Cannula 2.0 28 02/12/19 08:00 97.5 58 17 121/60 (80) 99 02/12/19 08:00 Nasal Cannula 2.0 02/12/19 07:37 56 02/12/19 07:00 51 18 123/55 (77) 100 02/12/19 06:00 136/69 02/12/19 06:00 54 18 136/69 (91) 99 02/12/19 05:00 53 18 111/58 (75) 99 02/12/19 04:00 98.5 81 19 126/60 (82) 98 02/12/19 04:00 70 02/12/19 04:00 Nasal Cannula 2.0 02/12/19 03:00 52 18 138/56 (83) 100 02/12/19 02:00 53 16 137/48 (77) 100 02/12/19 01:00 71 17 127/55 (79) 100 02/12/19 00:00 56 19 120/51 (74) 100 02/12/19 00:00 98.0 56 19 120/51 (74) 100 02/12/19 00:00 Nasal Cannula 2.0 02/11/19 23:00 69 18 121/54 (76) 97 02/11/19 22:00 87 18 111/59 (76) 94 02/11/19 21:00 56 18 125/58 (80) 99 02/11/19 20:00 Nasal Cannula 2.0 02/11/19 20:00 98.4 82 17 129/50 (76) 94 02/11/19 20:00 57 02/11/19 19:00 56 19 120/50 (73) 96 02/11/19 18:00 79 18 124/53 (76) 96 02/11/19 17:00 59 18 120/54 (76) 96 02/11/19 16:00 98.5 77 21 123/57 (79) 93 02/11/19 16:00 61 02/11/19 16:00 Nasal Cannula 2.0 02/11/19 15:00 80 21 135/73 (93) 91 02/11/19 14:00 59 17 136/65 (88) 97 02/11/19 13:00 74 17 128/58 (81) 96 02/11/19 12:00 54 02/11/19 12:00 Nasal Cannula 2.0 02/11/19 12:00 97.9 58 20 121/52 (75) 96 02/11/19 11:00 62 19 128/57 (80) 94 Intake and Output 02/11/19 02/12/19 19:00 07:00 Intake Total 575 ml 598 ml Output Total 825 ml 1180 ml Balance -250 ml -582 ml IV Total 575 ml 598 ml Output Urine Total 825 ml 1180 ml # Bowel Movements 2 Laboratory Tests 02/12/19 03:30: White Blood Count 7.7, Red Blood Count 3.34L, Hemoglobin 10.2L, Hematocrit 30.6L , Mean Corpuscular Volume 92, Mean Corpuscular Hemoglobin 30.5, Mean Corpuscular Hemoglobin Concent 33.3, Red Cell Distribution Width 14.4, Platelet Count 46L, Mean Platelet Volume 6.5, Neutrophils (%) (Auto) , Lymphocytes (%) ( Auto) , Monocytes (%) (Auto) , Eosinophils (%) (Auto) , Basophils (%) (Auto) , Differential Total Cells Counted 100, Neutrophils % (Manual) 83H, Lymphocytes % (Manual) 13L, Monocytes % (Manual) 4, Eosinophils % (Manual) 0, Basophils % ( Manual) 0, Band Neutrophils 0, Platelet Estimate DecreasedL, Platelet Morphology Normal, Anisocytosis 1+, Sodium Level 142, Potassium Level 3.7, Chloride Level 106, Carbon Dioxide Level 34H, Anion Gap 3L, Blood Urea Nitrogen 11, Creatinine 1.0, Estimat Glomerular Filtration Rate > 60, Glucose Level 132H , Calcium Level 7.5L, Phosphorus Level 2.1L, Magnesium Level 1.6L, Total Bilirubin 0.7, Aspartate Amino Transf (AST/SGOT) 41H, Alanine Aminotransferase ( ALT/SGPT) 60, Alkaline Phosphatase 103, C-Reactive Protein, Quantitative 2.1H, Pro-B-Type Natriuretic Peptide 42608N, Total Protein 5.3L, Albumin 2.0L, Globulin 3.3, Albumin/Globulin Ratio 0.6L Height (Feet): 5 Height (Inches): 7.00 Weight (Pounds): 150 General Appearance: no apparent distress, lethargic Objective no change Bienvenido Gonzalez MD Feb 12, 2019 10:24
--- NOTE | 2019-02-12 10:33 | NUR ---
NURSE NOTES: Wound care nurse came and assessed the wound. Sacral redness and right heel DTI noted. Dressing done as per protocol by wound care nurse. Turned and repositioned pt. Diet changed to liquified pureed like nectar think soup as per speech therapist. Will proceed the order. Addendum: 02/12/19 at 1049 by PALMER GANT RN RN NURSE NOTES: Wound care nurse came and assessed the wound. Sacral redness and left heel unstageable wound noted. Dressing done as per protocol by wound care nurse. Turned and repositioned pt. Diet changed to liquified pureed like nectar think soup as per speech therapist. Will proceed the order.
--- NOTE | 2019-02-12 10:35 | Pulmonolgy Critical Care Note ---
Critical Care - Asmt/Plan Problems: (1) Acute respiratory failure (2) Acute DVT (deep venous thrombosis) (3) Septic shock (4) Thrombocytopenia (5) Systolic heart failure (6) Chronic kidney disease (7) Malignant neoplasm of right kidney (8) COPD (chronic obstructive pulmonary disease) (9) Schizophrenia (10) cardiomyopathy with EF of 35% Respiratory: monitor respiratory rate, adjust FIO2, CXR Cardiac: stop pressors, continue to monitor HR/BP Renal: F/U I&O Infectious Disease: check cultures, continue antibiotics Gastrointestinal: continue feedings/current rate Endocrine: monitor blood sugar Hematologic: monitor H/H, transfuse if hgb<8.5, other - ivc filter Neurologic: PRN Ativan, keep patient comfortable Disposition: transfer to Notes Reviewed: appeals examiner, renal Discussed with: nurses, consultants, case finishing machine adjusteroutcomes manager - Objective Last 24 Hour Vital Signs Date Time Temp Pulse Resp B/P (MAP) Pulse Ox O2 Delivery O2 Flow Rate FiO2 02/12/19 10:00 63 16 114/49 (70) 100 02/12/19 09:00 53 14 127/66 (86) 99 02/12/19 08:30 94 Nasal Cannula 2.0 28 02/12/19 08:00 97.5 58 17 121/60 (80) 99 02/12/19 08:00 Nasal Cannula 2.0 02/12/19 07:37 56 02/12/19 07:00 51 18 123/55 (77) 100 02/12/19 06:00 136/69 02/12/19 06:00 54 18 136/69 (91) 99 02/12/19 05:00 53 18 111/58 (75) 99 02/12/19 04:00 98.5 81 19 126/60 (82) 98 02/12/19 04:00 70 02/12/19 04:00 Nasal Cannula 2.0 02/12/19 03:00 52 18 138/56 (83) 100 02/12/19 02:00 53 16 137/48 (77) 100 02/12/19 01:00 71 17 127/55 (79) 100 02/12/19 00:00 56 19 120/51 (74) 100 02/12/19 00:00 98.0 56 19 120/51 (74) 100 02/12/19 00:00 Nasal Cannula 2.0 02/11/19 23:00 69 18 121/54 (76) 97 02/11/19 22:00 87 18 111/59 (76) 94 02/11/19 21:00 56 18 125/58 (80) 99 02/11/19 20:00 Nasal Cannula 2.0 02/11/19 20:00 98.4 82 17 129/50 (76) 94 02/11/19 20:00 57 02/11/19 19:00 56 19 120/50 (73) 96 02/11/19 18:00 79 18 124/53 (76) 96 02/11/19 17:00 59 18 120/54 (76) 96 02/11/19 16:00 98.5 77 21 123/57 (79) 93 02/11/19 16:00 61 02/11/19 16:00 Nasal Cannula 2.0 02/11/19 15:00 80 21 135/73 (93) 91 02/11/19 14:00 59 17 136/65 (88) 97 02/11/19 13:00 74 17 128/58 (81) 96 02/11/19 12:00 54 02/11/19 12:00 Nasal Cannula 2.0 02/11/19 12:00 97.9 58 20 121/52 (75) 96 02/11/19 11:00 62 19 128/57 (80) 94 Status: awake Condition: critical, improving Neck: full ROM Lungs: rales, rhonchi Heart: HR/BP stable Abdomen: soft, non-tender Extremities: no C/C/E Accucheck: 132 Critical Care - Subjective Condition: critical FI02: 28 Vent Support Breath Rate: 20 Vent Support Mode: CPAP Vent Tidal Volume: 500 Sputum Amount: None PEEP: 5.0 PIP: 13 I&O: Intake and Output 02/11/19 02/12/19 19:00 07:00 Intake Total 575 ml 598 ml Output Total 825 ml 1180 ml Balance -250 ml -582 ml IV Total 575 ml 598 ml Output Urine Total 825 ml 1180 ml # Bowel Movements 2 CXR: more pulmonary edema ET-Tube: 7.5 ET Position: 26 Labs: Laboratory Tests Test 02/12/19 03:30 White Blood Count 7.7 K/UL (4.8-10.8) Red Blood Count 3.34 M/UL (4.70-6.10) L Hemoglobin 10.2 G/DL (14.2-18.0) L Hematocrit 30.6 % (42.0-52.0) L Mean Corpuscular Volume 92 FL (80-99) Mean Corpuscular Hemoglobin 30.5 PG (27.0-31.0) Mean Corpuscular Hemoglobin Concent 33.3 G/DL (32.0-36.0) Red Cell Distribution Width 14.4 % (11.6-14.8) Platelet Count 46 K/UL (150-450) L Mean Platelet Volume 6.5 FL (6.5-10.1) Neutrophils (%) (Auto) % (45.0-75.0) Lymphocytes (%) (Auto) % (20.0-45.0) Monocytes (%) (Auto) % (1.0-10.0) Eosinophils (%) (Auto) % (0.0-3.0) Basophils (%) (Auto) % (0.0-2.0) Differential Total Cells Counted 100 Neutrophils % (Manual) 83 % (45-75) H Lymphocytes % (Manual) 13 % (20-45) L Monocytes % (Manual) 4 % (1-10) Eosinophils % (Manual) 0 % (0-3) Basophils % (Manual) 0 % (0-2) Band Neutrophils 0 % (0-8) Platelet Estimate Decreased L Platelet Morphology Normal Anisocytosis 1+ Sodium Level 142 MMOL/L (136-145) Potassium Level 3.7 MMOL/L (3.5-5.1) Chloride Level 106 MMOL/L (98-107) Carbon Dioxide Level 34 MMOL/L (21-32) H Anion Gap 3 mmol/L (5-15) L Blood Urea Nitrogen 11 mg/dL (7-18) Creatinine 1.0 MG/DL (0.55-1.30) Estimat Glomerular Filtration Rate > 60 mL/min (>60) Glucose Level 132 MG/DL (74-106) H Calcium Level 7.5 MG/DL (8.5-10.1) L Phosphorus Level 2.1 MG/DL (2.5-4.9) L Magnesium Level 1.6 MG/DL (1.8-2.4) L Total Bilirubin 0.7 MG/DL (0.2-1.0) Aspartate Amino Transf (AST/SGOT) 41 U/L (15-37) H Alanine Aminotransferase (ALT/SGPT) 60 U/L (12-78) Alkaline Phosphatase 103 U/L (46-116) C-Reactive Protein, Quantitative 2.1 mg/dL (0.00-0.90) H Pro-B-Type Natriuretic Peptide 47718 pg/mL (0-125) H Total Protein 5.3 G/DL (6.4-8.2) L Albumin 2.0 G/DL (3.4-5.0) L Globulin 3.3 g/dL Albumin/Globulin Ratio 0.6 (1.0-2.7) L Ron Anthony MD Feb 12, 2019 10:35
[2019-02-12] MEDS ORDERED: NS 275ml ONE (10:44)
[2019-02-12] MEDS ORDERED: D5 1/2NS 1000ml IV ONE (10:44)
--- NOTE | 2019-02-12 11:59 | NUR ---
NURSE NOTES: Pt was complaining that he is hungry. Total 1:1 feeder. HOB elevated all the way and fed the patient nectar thick soup like lunch as ordered. Pt had about 10 spoons of soup and wanted to take a break. Will try to feed the patient again later. Pt went back to sleep in bed.
--- NOTE | 2019-02-12 13:20 | NUR ---
NURSE NOTES: Fed the patient about 5 spoons of soup at bedside. Pt had a weak cough afterwards and wanted to take a break, so feeding stopped. Will continue to monitor.
--- NOTE | 2019-02-12 13:40 | General Progress Note ---
Assessment/Plan Problem List: (1) COPD (chronic obstructive pulmonary disease) ICD Codes: J44.9 - Chronic obstructive pulmonary disease, unspecified SNOMED: 73465696 Qualifiers: Qualified Codes: J44.9 - Chronic obstructive pulmonary disease, unspecified (2) DM (diabetes mellitus) ICD Codes: E11.9 - Type 2 diabetes mellitus without complications SNOMED: 90918792 (3) Thrombocytopenia ICD Codes: D69.6 - Thrombocytopenia, unspecified SNOMED: 089144605 (4) Sepsis ICD Codes: A41.9 - Sepsis, unspecified organism SNOMED: 96653783 Qualifiers: Qualified Codes: A41.9 - Sepsis, unspecified organism (5) Wound, open ICD Codes: T14.8XXA - Other injury of unspecified body region, initial encounter SNOMED: 644365243 (6) Chronic kidney disease ICD Codes: N18.9 - Chronic kidney disease, unspecified SNOMED: 211312812 (7) Malignant neoplasm of right kidney ICD Codes: C64.1 - Malignant neoplasm of right kidney, except renal pelvis SNOMED: 059268705 (8) PVD (peripheral vascular disease) ICD Codes: I73.9 - Peripheral vascular disease, unspecified SNOMED: 473596533 (9) Schizophrenia ICD Codes: F20.9 - Schizophrenia, unspecified SNOMED: 24907720 (10) Acute respiratory failure ICD Codes: J96.00 - Acute respiratory failure, unspecified whether with hypoxia or hypercapnia SNOMED: 11923044 (11) Septic shock ICD Codes: A41.9 - Sepsis, unspecified organism; R65.21 - Severe sepsis with septic shock SNOMED: 56982199 (12) Systolic heart failure ICD Codes: I50.20 - Unspecified systolic (congestive) heart failure SNOMED: 273653248 (13) Renal failure (ARF), acute on chronic ICD Codes: N17.9 - Acute kidney failure, unspecified; N18.9 - Chronic kidney disease, unspecified SNOMED: 183547937 (14) Bradyarrhythmia ICD Codes: I49.8 - Other specified cardiac arrhythmias SNOMED: 818523171 (15) Dysphagia ICD Codes: R13.10 - Dysphagia, unspecified SNOMED: 93796271, 084334244 (16) Encounter for PEG (percutaneous endoscopic gastrostomy) ICD Codes: Z43.1 - Encounter for attention to gastrostomy SNOMED: 347756858, 648601348 (17) cardiomyopathy with EF of 35% Status: stable, progressing, unchanged Assessment/Plan: no change no sob no cp edema reviewed chart and labs sepsis fluid management per renal chf decompensated Subjective ROS Limited/Unobtainable: Yes Allergies: Coded Allergies: No Known Allergies (Unverified , 01/24/19) Objective Last 24 Hour Vital Signs Date Time Temp Pulse Resp B/P (MAP) Pulse Ox O2 Delivery O2 Flow Rate FiO2 02/12/19 13:00 63 17 123/53 (76) 94 02/12/19 12:33 54 02/12/19 12:00 98.0 62 16 107/82 (90) 97 02/12/19 12:00 Nasal Cannula 2.0 02/12/19 11:00 50 17 120/45 (70) 100 02/12/19 10:00 63 16 114/49 (70) 100 02/12/19 09:00 53 14 127/66 (86) 99 02/12/19 08:30 94 Nasal Cannula 2.0 28 02/12/19 08:00 97.5 58 17 121/60 (80) 99 02/12/19 08:00 Nasal Cannula 2.0 02/12/19 07:37 56 02/12/19 07:00 51 18 123/55 (77) 100 02/12/19 06:00 136/69 02/12/19 06:00 54 18 136/69 (91) 99 02/12/19 05:00 53 18 111/58 (75) 99 02/12/19 04:00 98.5 81 19 126/60 (82) 98 02/12/19 04:00 70 02/12/19 04:00 Nasal Cannula 2.0 02/12/19 03:00 52 18 138/56 (83) 100 02/12/19 02:00 53 16 137/48 (77) 100 02/12/19 01:00 71 17 127/55 (79) 100 02/12/19 00:00 56 19 120/51 (74) 100 02/12/19 00:00 98.0 56 19 120/51 (74) 100 02/12/19 00:00 Nasal Cannula 2.0 02/11/19 23:00 69 18 121/54 (76) 97 02/11/19 22:00 87 18 111/59 (76) 94 02/11/19 21:00 56 18 125/58 (80) 99 02/11/19 20:00 Nasal Cannula 2.0 02/11/19 20:00 98.4 82 17 129/50 (76) 94 02/11/19 20:00 57 02/11/19 19:00 56 19 120/50 (73) 96 02/11/19 18:00 79 18 124/53 (76) 96 02/11/19 17:00 59 18 120/54 (76) 96 02/11/19 16:00 98.5 77 21 123/57 (79) 93 02/11/19 16:00 61 02/11/19 16:00 Nasal Cannula 2.0 02/11/19 15:00 80 21 135/73 (93) 91 02/11/19 14:00 59 17 136/65 (88) 97 Intake and Output 02/11/19 02/12/19 19:00 07:00 Intake Total 575 ml 598 ml Output Total 825 ml 1180 ml Balance -250 ml -582 ml IV Total 575 ml 598 ml Output Urine Total 825 ml 1180 ml # Bowel Movements 2 Laboratory Tests 02/12/19 03:30: White Blood Count 7.7, Red Blood Count 3.34L, Hemoglobin 10.2L, Hematocrit 30.6L , Mean Corpuscular Volume 92, Mean Corpuscular Hemoglobin 30.5, Mean Corpuscular Hemoglobin Concent 33.3, Red Cell Distribution Width 14.4, Platelet Count 46L, Mean Platelet Volume 6.5, Neutrophils (%) (Auto) , Lymphocytes (%) ( Auto) , Monocytes (%) (Auto) , Eosinophils (%) (Auto) , Basophils (%) (Auto) , Differential Total Cells Counted 100, Neutrophils % (Manual) 83H, Lymphocytes % (Manual) 13L, Monocytes % (Manual) 4, Eosinophils % (Manual) 0, Basophils % ( Manual) 0, Band Neutrophils 0, Platelet Estimate DecreasedL, Platelet Morphology Normal, Anisocytosis 1+, Sodium Level 142, Potassium Level 3.7, Chloride Level 106, Carbon Dioxide Level 34H, Anion Gap 3L, Blood Urea Nitrogen 11, Creatinine 1.0, Estimat Glomerular Filtration Rate > 60, Glucose Level 132H , Calcium Level 7.5L, Phosphorus Level 2.1L, Magnesium Level 1.6L, Total Bilirubin 0.7, Aspartate Amino Transf (AST/SGOT) 41H, Alanine Aminotransferase ( ALT/SGPT) 60, Alkaline Phosphatase 103, C-Reactive Protein, Quantitative 2.1H, Pro-B-Type Natriuretic Peptide 28306T, Total Protein 5.3L, Albumin 2.0L, Globulin 3.3, Albumin/Globulin Ratio 0.6L Height (Feet): 5 Height (Inches): 7.00 Weight (Pounds): 150 General Appearance: confused Tomeka Holloway MD Feb 12, 2019 13:40
--- NOTE | 2019-02-12 13:47 | Cardiology Progress Note ---
Assessment/Plan Assessment/Plan 1. Septic syndrome. 2. Respiratory failure now extubated 3. Pneumonia. 4. Schizophrenia and dementia. 5. Urinary tract infection. 6. Renal failure. 7. Hypoalbuminemia/malnutrition. 8. Sinus tachycardia secondary to above resolved 9. Left ventricular systolic dysfunction. 10. sinus alanna cxr reviewed personally 02/12 renal fxn improved tele sinus / alanna of all pressors avoid any neg chronotropic agents , sinus alanna only no pauses on tele bp seem fien off dopamine awiats peg and ivc filter , coughing pos eating trial asn is congested cxr notes would not diurese unless he has sob or is low in oxygen as he will becoemr hypotensive Subjective Respiratory: Reports: cough, shortness of breath Objective Last 24 Hour Vital Signs Date Time Temp Pulse Resp B/P (MAP) Pulse Ox O2 Delivery O2 Flow Rate FiO2 02/12/19 13:00 63 17 123/53 (76) 94 02/12/19 12:33 54 02/12/19 12:00 98.0 62 16 107/82 (90) 97 02/12/19 12:00 Nasal Cannula 2.0 02/12/19 11:00 50 17 120/45 (70) 100 02/12/19 10:00 63 16 114/49 (70) 100 02/12/19 09:00 53 14 127/66 (86) 99 02/12/19 08:30 94 Nasal Cannula 2.0 28 02/12/19 08:00 97.5 58 17 121/60 (80) 99 02/12/19 08:00 Nasal Cannula 2.0 02/12/19 07:37 56 02/12/19 07:00 51 18 123/55 (77) 100 02/12/19 06:00 136/69 02/12/19 06:00 54 18 136/69 (91) 99 02/12/19 05:00 53 18 111/58 (75) 99 02/12/19 04:00 98.5 81 19 126/60 (82) 98 02/12/19 04:00 70 02/12/19 04:00 Nasal Cannula 2.0 02/12/19 03:00 52 18 138/56 (83) 100 02/12/19 02:00 53 16 137/48 (77) 100 02/12/19 01:00 71 17 127/55 (79) 100 02/12/19 00:00 56 19 120/51 (74) 100 02/12/19 00:00 98.0 56 19 120/51 (74) 100 02/12/19 00:00 Nasal Cannula 2.0 02/11/19 23:00 69 18 121/54 (76) 97 02/11/19 22:00 87 18 111/59 (76) 94 02/11/19 21:00 56 18 125/58 (80) 99 02/11/19 20:00 Nasal Cannula 2.0 02/11/19 20:00 98.4 82 17 129/50 (76) 94 02/11/19 20:00 57 02/11/19 19:00 56 19 120/50 (73) 96 02/11/19 18:00 79 18 124/53 (76) 96 02/11/19 17:00 59 18 120/54 (76) 96 02/11/19 16:00 98.5 77 21 123/57 (79) 93 02/11/19 16:00 61 02/11/19 16:00 Nasal Cannula 2.0 02/11/19 15:00 80 21 135/73 (93) 91 02/11/19 14:00 59 17 136/65 (88) 97 General Appearance: no apparent distress, alert Cardiovascular: normal rate Respiratory/Chest: rhonchi - bilaterally Abdomen: normal bowel sounds, non tender, soft Extremities: no swelling Intake and Output 02/11/19 02/12/19 19:00 07:00 Intake Total 575 ml 598 ml Output Total 825 ml 1180 ml Balance -250 ml -582 ml IV Total 575 ml 598 ml Output Urine Total 825 ml 1180 ml # Bowel Movements 2 Laboratory Tests Test 02/12/19 03:30 White Blood Count 7.7 K/UL (4.8-10.8) Red Blood Count 3.34 M/UL (4.70-6.10) L Hemoglobin 10.2 G/DL (14.2-18.0) L Hematocrit 30.6 % (42.0-52.0) L Mean Corpuscular Volume 92 FL (80-99) Mean Corpuscular Hemoglobin 30.5 PG (27.0-31.0) Mean Corpuscular Hemoglobin Concent 33.3 G/DL (32.0-36.0) Red Cell Distribution Width 14.4 % (11.6-14.8) Platelet Count 46 K/UL (150-450) L Mean Platelet Volume 6.5 FL (6.5-10.1) Neutrophils (%) (Auto) % (45.0-75.0) Lymphocytes (%) (Auto) % (20.0-45.0) Monocytes (%) (Auto) % (1.0-10.0) Eosinophils (%) (Auto) % (0.0-3.0) Basophils (%) (Auto) % (0.0-2.0) Differential Total Cells Counted 100 Neutrophils % (Manual) 83 % (45-75) H Lymphocytes % (Manual) 13 % (20-45) L Monocytes % (Manual) 4 % (1-10) Eosinophils % (Manual) 0 % (0-3) Basophils % (Manual) 0 % (0-2) Band Neutrophils 0 % (0-8) Platelet Estimate Decreased L Platelet Morphology Normal Anisocytosis 1+ Sodium Level 142 MMOL/L (136-145) Potassium Level 3.7 MMOL/L (3.5-5.1) Chloride Level 106 MMOL/L (98-107) Carbon Dioxide Level 34 MMOL/L (21-32) H Anion Gap 3 mmol/L (5-15) L Blood Urea Nitrogen 11 mg/dL (7-18) Creatinine 1.0 MG/DL (0.55-1.30) Estimat Glomerular Filtration Rate > 60 mL/min (>60) Glucose Level 132 MG/DL (74-106) H Calcium Level 7.5 MG/DL (8.5-10.1) L Phosphorus Level 2.1 MG/DL (2.5-4.9) L Magnesium Level 1.6 MG/DL (1.8-2.4) L Total Bilirubin 0.7 MG/DL (0.2-1.0) Aspartate Amino Transf (AST/SGOT) 41 U/L (15-37) H Alanine Aminotransferase (ALT/SGPT) 60 U/L (12-78) Alkaline Phosphatase 103 U/L (46-116) C-Reactive Protein, Quantitative 2.1 mg/dL (0.00-0.90) H Pro-B-Type Natriuretic Peptide 51882 pg/mL (0-125) H Total Protein 5.3 G/DL (6.4-8.2) L Albumin 2.0 G/DL (3.4-5.0) L Globulin 3.3 g/dL Albumin/Globulin Ratio 0.6 (1.0-2.7) L Sammy Helm MD Feb 12, 2019 13:47
--- NOTE | 2019-02-12 13:49 | NUR ---
INTEGRATION PROJECT MANAGERVASCULAR SONOGRAPHER SI: SEPSIS,BRADYCARDIA T. 98.0 HR 50 RR 16 B/P 123/53 2L NC O2 SAT @ 98% MG 1.6 AST 41 BNP [id number] IS: IVF D5NS@ 50ML/HR SOLU CORTEF IV MG IV K-PHOS IV ICU STATUS
--- NOTE | 2019-02-12 13:57 | NUR ---
NURSE NOTES: Dr Helm here to see the patient. Updated him with pt's current condition including bioethics comment regarding PEG placement. No new orders.
[2019-02-12] MEDS ORDERED: Potassium Phosphate 30 MM in NS 275 ML IV ONE (14:00)
--- NOTE | 2019-02-12 15:15 | Progress Note ---
DATE: 02/12/2019 SUBJECTIVE: This is a 68-year-old male patient who continues to have some mood lability, confusion, disorganized thought process, and agitation on the ICU unit. He was seen and assessed in ICU, still has decline in cognition below baseline, agitation, irritability. MENTAL STATUS EXAMINATION: This is a 68-year-old male. Appearance is disheveled. Attitude, irritable and agitated. Affect guarded and restricted. Intellect poor. Mood, depressed and anxious. Motor activity, psychomotor agitation. Insight and judgment is poor. DIAGNOSIS: Paranoid schizophrenia with acute exacerbation PLAN: Treat this patient with a psychotropic medication regimen consisting of Namenda 5 mg daily to prevent further decline in his cognition and also I am going to titrate up on his Seroquel to a dose of 50 mg q.12 hours to reduce agitation. He does have intermittent bouts of psychomotor agitation. Provide him with 20 minutes of minutes of behavioral management. Chart reviewed. Discussed with staff. Seen and assessed at ICU. Stacie Paige M.D. DR: Laron JOB#: [id number] CC:
--- NOTE | 2019-02-12 16:02 | NUR ---
NURSE NOTES:WOUND CARE FOLLOW-UP NOTES: Non-blanching erythema without induration sacrum. R heel boggy but blanchable. Unstageable pressure injury L heel. Soft necrosis with detached borders. Scattered Slough, erythema along borders. Mild odor noted.(L)2.4cm x (W)3.5cm. Non-blanching erythema with fluctuance periwound.Wound Tx. are effective and continued as ordered. All wound prevention protocols continued as care-planned.
--- NOTE | 2019-02-12 16:12 | NUR ---
HAND-OFF: Report given to EUGENIA Appiah.
--- NOTE | 2019-02-12 17:18 | Surgery Progress Note ---
Surgery Progress Note Subjective Additional Comments labs noted exam stable pending PEG friday as per GI Objective Last 24 Hour Vital Signs Date Time Temp Pulse Resp B/P (MAP) Pulse Ox O2 Delivery O2 Flow Rate FiO2 02/12/19 16:00 Nasal Cannula 1.0 02/12/19 16:00 98.1 67 19 115/64 (81) 97 02/12/19 15:52 54 02/12/19 15:00 54 11 127/55 (79) 95 02/12/19 14:00 52 19 112/59 (76) 95 02/12/19 13:00 63 17 123/53 (76) 94 02/12/19 12:33 54 02/12/19 12:00 98.0 62 16 107/82 (90) 97 02/12/19 12:00 Nasal Cannula 1.0 02/12/19 11:00 50 17 120/45 (70) 100 02/12/19 10:00 63 16 114/49 (70) 100 02/12/19 09:00 53 14 127/66 (86) 99 02/12/19 08:30 94 Nasal Cannula 2.0 28 02/12/19 08:00 97.5 58 17 121/60 (80) 99 02/12/19 08:00 Nasal Cannula 2.0 02/12/19 07:37 56 02/12/19 07:00 51 18 123/55 (77) 100 02/12/19 06:00 136/69 02/12/19 06:00 54 18 136/69 (91) 99 02/12/19 05:00 53 18 111/58 (75) 99 02/12/19 04:00 98.5 81 19 126/60 (82) 98 02/12/19 04:00 70 02/12/19 04:00 Nasal Cannula 2.0 02/12/19 03:00 52 18 138/56 (83) 100 02/12/19 02:00 53 16 137/48 (77) 100 02/12/19 01:00 71 17 127/55 (79) 100 02/12/19 00:00 56 19 120/51 (74) 100 02/12/19 00:00 98.0 56 19 120/51 (74) 100 02/12/19 00:00 Nasal Cannula 2.0 02/11/19 23:00 69 18 121/54 (76) 97 02/11/19 22:00 87 18 111/59 (76) 94 02/11/19 21:00 56 18 125/58 (80) 99 02/11/19 20:00 Nasal Cannula 2.0 02/11/19 20:00 98.4 82 17 129/50 (76) 94 02/11/19 20:00 57 02/11/19 19:00 56 19 120/50 (73) 96 02/11/19 18:00 79 18 124/53 (76) 96 I&O Intake and Output 02/11/19 02/12/19 19:00 07:00 Intake Total 575 ml 598 ml Output Total 825 ml 1180 ml Balance -250 ml -582 ml IV Total 575 ml 598 ml Output Urine Total 825 ml 1180 ml # Bowel Movements 2 Dressing: other Wound: other Drains: other Cardiovascular: RSR Respiratory: decreased breath sounds Abdomen: soft, present bowel sounds, non-distended Extremities: no cyanosis, other Laboratory Tests Test 02/12/19 03:30 White Blood Count 7.7 K/UL (4.8-10.8) Red Blood Count 3.34 M/UL (4.70-6.10) L Hemoglobin 10.2 G/DL (14.2-18.0) L Hematocrit 30.6 % (42.0-52.0) L Mean Corpuscular Volume 92 FL (80-99) Mean Corpuscular Hemoglobin 30.5 PG (27.0-31.0) Mean Corpuscular Hemoglobin Concent 33.3 G/DL (32.0-36.0) Red Cell Distribution Width 14.4 % (11.6-14.8) Platelet Count 46 K/UL (150-450) L Mean Platelet Volume 6.5 FL (6.5-10.1) Neutrophils (%) (Auto) % (45.0-75.0) Lymphocytes (%) (Auto) % (20.0-45.0) Monocytes (%) (Auto) % (1.0-10.0) Eosinophils (%) (Auto) % (0.0-3.0) Basophils (%) (Auto) % (0.0-2.0) Differential Total Cells Counted 100 Neutrophils % (Manual) 83 % (45-75) H Lymphocytes % (Manual) 13 % (20-45) L Monocytes % (Manual) 4 % (1-10) Eosinophils % (Manual) 0 % (0-3) Basophils % (Manual) 0 % (0-2) Band Neutrophils 0 % (0-8) Platelet Estimate Decreased L Platelet Morphology Normal Anisocytosis 1+ Sodium Level 142 MMOL/L (136-145) Potassium Level 3.7 MMOL/L (3.5-5.1) Chloride Level 106 MMOL/L (98-107) Carbon Dioxide Level 34 MMOL/L (21-32) H Anion Gap 3 mmol/L (5-15) L Blood Urea Nitrogen 11 mg/dL (7-18) Creatinine 1.0 MG/DL (0.55-1.30) Estimat Glomerular Filtration Rate > 60 mL/min (>60) Glucose Level 132 MG/DL (74-106) H Calcium Level 7.5 MG/DL (8.5-10.1) L Phosphorus Level 2.1 MG/DL (2.5-4.9) L Magnesium Level 1.6 MG/DL (1.8-2.4) L Total Bilirubin 0.7 MG/DL (0.2-1.0) Aspartate Amino Transf (AST/SGOT) 41 U/L (15-37) H Alanine Aminotransferase (ALT/SGPT) 60 U/L (12-78) Alkaline Phosphatase 103 U/L (46-116) C-Reactive Protein, Quantitative 2.1 mg/dL (0.00-0.90) H Pro-B-Type Natriuretic Peptide 84386 pg/mL (0-125) H Total Protein 5.3 G/DL (6.4-8.2) L Albumin 2.0 G/DL (3.4-5.0) L Globulin 3.3 g/dL Albumin/Globulin Ratio 0.6 (1.0-2.7) L Plan Problems: (1) Sepsis Assessment & Plan: afebrile, HD improving HR -noted cardiology input leukocytosis lactic acidosis resolved slowly improving -IV abx as per ID -trend labs -swallow eval not ready so wait until once more responsive plan for trial swallow again next week if cont to fail will discuss with team about peg as currently he is fairly alert discussed with GI. reviewed bioethics Neuro eval for dementia PEG friday. medically necessary and indicated -will follow with recs thank you (2) Septic shock (3) Wound, open Assessment & Plan: Patient presented on admission with multiple pressure injuries being identified. Non-blanching erythema without induration noted to sacrum ,Right and Left buttocks. Scattered areas that are darker and maroon in color noted within base of wound. Scrotum is also erythematous. Unstageable pressure injury noted to Left heel. Base of wound is 100% necrotic but soft. Erythematous margins with surrounding non-blanching erythema.(L)3.2cm x (W)3cm. no drainage Right heel is boggy with non-blanching erythema.. Keloid scar noted distal R tibia. Partial thickness ulcer noted to dorsal R foot. Base of wound is moist and viable. Small amt serous exudate noted. Scattered small dry scabs noted to dorsal R foot. Non-blanching erythema without induration sacrum. R heel boggy but blanchable. Unstageable pressure injury L heel. Soft necrosis with detached borders. Scattered Slough, erythema along borders. Mild odor noted.(L)2.4cm x (W)3.5cm. Non-blanching erythema with fluctuance periwound.Wound Tx. are effective and continued as ordered. All wound prevention protocols continued as care-planned. Tx.Plan: Swab Dorsal R foot and R heel with Betadine. Cover with Optifoam drsg. Change every 3 days and prn. Apply Moisture Barrier Paste to buttocks. Cover sacrum with Optifoam drsg. Change every 3 days and prn. Apply Cavilon Skin Barrier to L heel.Cover with Optifoam drsg. Change every 7 days and prn. APM/JELLY mattress. Reposition at least every 2hours or as tolerated. Off-load heels with pillow. Nutritional Optimization Will monitor while in critical condition DAILY ESTIMATED NEEDS: Needs based on Critical care, sepsis, wounds 69kg 22-30 kcals/kg 6684-9914 total kcals 1.25-2 g protein/kg 86-138 g total protein 25-30 mL/kg 1344-4987 total fluid mLs NUTRITION DIAGNOSIS: Increased kcal and pro needs r/t sepsis, wound healing, and underweight status as evidenced by pt w respiratory distress now intubated, critically elev WBC (*29.7), elev BG (200's), w/ multiple wounds (refer to eval), pt is @88% if [place] Body Weight. CURRENT TF: Glucerna 1.2 @30ml ENTERAL NUTRITION RECOMMENDATIONS: VITAL AF 1.2 @60ml/hr x24 hrs to provide 1440ml, 1728 kcal, 108g pro, 1168ml free H2O - WITH HEMODYNAMIC STABILITY, rec TF change to VITAL 1.2 to better meet est needs. Start @20ml/hr for 6 hrs. Advance as tolerated 10ml/hr q4-6 hrs to goal. - Flush per . HOB over 30 degrees If pt remains on pressor support, rec trophic feeds of Vital 1.2 @5-10ml/hr to maintain gut integrity. ------ ADDITIONAL RECOMMENDATIONS: 1) Per SNF: HT 71 inches, 152 lbs (69.1kg) 2) Wound care: Add DANIELA in 4oz water BID via OGT + VIT C 250mg BID (f/up w/ WC specialist) 3) Monitor lytes daily, replete as needed 4) Daily calibrated bed scale wts Mauricio Anne Feb 12, 2019 17:18
--- NOTE | 2019-02-12 18:14 | NUR ---
NURSE NOTES: Fed the patient about 12 teaspoons of soup = 10% of dinner. Pt coughed after eating and wanted to try dinner again later. Pt refused oral care, stating "I don't have any teeth. Don't bother me any more".
--- NOTE | 2019-02-12 20:00 | NUR ---
NURSE NOTES: SBAR received from Bijal BELLO. Patient is awake and alert at this time. Patient has NC at 1L with saturations of 97%. Patient has JONATHAN PICC line infusing D51/2NS at 50ml/hr. Wounds noted, P200 mattress on. Patient Vitals are stable at this time, no acute distress. Bed in lowest position and bed alarm is on. Safety measures are in place. Will continue to monitor.
[2019-02-12] MEDS: Dyna-Hex 2% Top Sol 2oz TOPIC SCH (20:53)
--- NOTE | 2019-02-12 22:00 | NUR ---
NURSE NOTES: Patient repositioned and oral care was provided. Patient is calm and collected at this time. Vitals are stable, Sinus alanna at times, asymptomatic.
[2019-02-13] VITALS (18 sets, daily range): BP systolic 108–146; BP diastolic 40–89
[2019-02-13] MEDS: D5 1/2NS 1,000 ML IV SCH
--- NOTE | 2019-02-13 00:19 | NUR ---
NURSE NOTES: Glucose is 125. Patient repositioned and given oral care. Patient is sleeping at this time, HR sometimes Sinus alanna but asymptomatic. Will continue to monitor.
--- NOTE | 2019-02-13 00:51 | NUR ---
NURSE NOTES: Levophed standard dose started. Patients BP 76/36. pressors started at 8mcg. Feeds on hold while blood pressure stabilizes. Supine position. Addendum: 02/13/19 at 0158 by RANDY SIMONS RN NURSE NOTES: Wrong patient entry, disregard this note.
--- NOTE | 2019-02-13 02:00 | NUR ---
NURSE NOTES: Patient repositioned. HR is 52 Sinus Andres but asymptomatic. Blood pressure has stayed stable. Patient is more passive and quite. Patient seems to be more cooperative than previously.
--- NOTE | 2019-02-13 04:00 | NUR ---
NURSE NOTES: Patient cleaned and repositioned. Blood drawn and sent to lab. Patient able to follow simple commands. Behavior is flat and passive. Non combative or resistant at this time. Breathing is fine and other vitals are stable, afebrile.
[2019-02-13] MEDS: Hydrocortisone 100mg Inj IV SCH ×3 (05:44→21:25)
[2019-02-13] MEDS: NovoLOG Insulin Flexpen SUBQ SCH ×4 (05:45→18:19)
[2019-02-13] MEDS: DOPamine 400mg/250ml 250 ML IV SCH (06:00)
--- NOTE | 2019-02-13 06:00 | NUR ---
NURSE NOTES: Patient repositioned and given nectar thick fluid for oral gratification. Did not cough or gag. Drank about 20ml. Patients vital signs have been stable throughout the night, and with no fevers. Patient has been passive with flat affect with periods of sleep during power and recovery shift engineer. No outburst or resistance noted. Costello care given. Breathing pattern is fine, no distress, remains on nasal canula at 1L with saturations of 94%. Call light within reach and bed alarm on.
[2019-02-13 06:11] LABS: HEMATOCRIT 31.8 % (42.0-52.0); HEMOGLOBIN 10.4 G/DL (14.2-18.0); MEAN CORPUSCULAR VOLUME 91 FL (80-99); PLATELET COUNT 46 K/UL (150-450); RED BLOOD COUNT 3.51 M/UL (4.70-6.10); RED CELL DISTRIBUTION WIDTH 13.8 % (11.6-14.8); WHITE BLOOD COUNT 7.1 K/UL (4.8-10.8)
[2019-02-13 06:14] LABS: ALANINE AMINOTRANSFERASE 57 U/L (12-78); ALBUMIN/GLOBULIN RATIO 0.6 (1.0-2.7); ALKALINE PHOSPHATASE 105 U/L (46-116); ANION GAP 2 mmol/L (5-15); ASPARTATE AMINO TRANSFERASE 38 U/L (15-37); BILIRUBIN,TOTAL 0.7 MG/DL (0.2-1.0); BLOOD UREA NITROGEN 10 mg/dL (7-18); CALCIUM 7.3 MG/DL (8.5-10.1); CARBON DIOXIDE 34 MMOL/L (21-32); CHLORIDE 104 MMOL/L (98-107); CREATININE 0.9 MG/DL (0.55-1.30); POTASSIUM 3.1 MMOL/L (3.5-5.1); SODIUM 140 MMOL/L (136-145)
[2019-02-13 06:15] LABS: INR 1.2 (0.9-1.1)
--- NOTE | 2019-02-13 07:03 | Hematology/Onc Progress Note ---
Assessment/Plan Assessment/Plan Assessment and Recs: # Dvt of the lower left superficial femoral vein with low platelets id contraindicated for ATC therapy --> ordered ivc filter, as per pulm--> at this time, contraindicated for anticoagulants --> no further heparin given low counts --> lack of consent, this is an emergency procedure --> pending bioethics eval # Thrombocytopenia - potential causes multifactorial, evaluate liver and viral etiologies to begin, us abd shows Coarsened hepatic echogenicity, may indicate hepatocellular disease, INr also high, also may be related to sepsis, recovery may have HEP C --> Hep panel and HIV ordered --> US abd does show some coarsened liver, query cirrhosis, Inr also high --> Peripheral smear ordered to evaluate for blasts /schistocytes --> abx and other meds have been reviewed --> ok for ppx if plt >50k w/ either heparin or lovenox --> Transfuse if Plt < 20k and fever, or if Plt < 10k without fever --> plt trend 74-->70->59k-->46k --> platelets to be given before procedure, this is an emergency procedure # Anemia of chronic disease, borderline --> hgb trend 11-->10.7-->10.4 --> panel has been reviewed --> no bleeding noted # Dysphagia, necessitating ng and peg --> ng unsuccesful --> as per gi, pending peg with consent # Septic shock with multiple infection --> on abx per id # Resp failure s/p intubation --> extubated 02/02 --> on nc # COPD # PVD # Schizophrenia # Cardiomyopathy # Dvt ppx scds, needs ivcf DW Rn and appreciate consultation. Subjective HEENT: Denies: no symptoms, eye pain, blurred vision, tearing, double vision, ear pain, ear discharge, nose pain, nose congestion, throat pain, throat swelling, mouth pain, mouth swelling, other Cardiovascular: Denies: no symptoms, chest pain, edema, irregular heart rate, lightheadedness, palpitations, syncope, other Respiratory: Denies: no symptoms, cough, shortness of breath, SOB with excertion, SOB at rest, sputum, wheezing, other Gastrointestinal/Abdominal: Denies: no symptoms, abdomen distended, abdominal pain, black stools, tarry stools, blood in stool, constipated, diarrhea, difficulty swallowing, nausea, poor appetite, poor fluid intake, rectal bleeding , vomiting, other Genitourinary: Denies: no symptoms, burning, discharge, frequency, flank pain, hematuria, incontinence, pain, urgency, other Neurologic/Psychiatric: Denies: no symptoms, anxiety, depressed, emotional problems, headache, numbness, paresthesia, pre-existing deficit, seizure, tingling, tremors, weakness, other Endocrine: Denies: no symptoms, excessive sweating, flushing, intolerance to cold, intolerance to heat, increased hunger, increased thirst, increased urine, unexplained weight gain, unexplained weight loss, other Allergies: Coded Allergies: No Known Allergies (Unverified , 01/24/19) Subjective 02/11: remains in the icu, labs noted, reviewed, no bleeding or chills, hep panel pend 02/12: no events noted, remains in icu, needs bioethics pending eval, plts pending 02/13: no major changes, on nc, no bleeding, labs plt 46k, to get 1 unit plts Objective Objective Current Medications Medications (Trade) Dose Ordered Sig/Ricardo Route PRN Reason Start Time Stop Time Status Last Admin Dose Admin Acetaminophen (Tylenol) 650 mg Q4H PRN ORAL fever 01/24/19 20:00 02/23/19 19:59 Ascorbic Acid (Vitamin C) 250 mg TWICE A DAY ORAL 01/27/19 18:00 02/26/19 17:59 02/12/19 17:57 Chlorhexidine Gluconate (Roseanna-Hex 2%) 1 applic DAILY@2000 TOPIC 02/07/19 20:00 03/09/19 19:59 02/12/19 20:53 Dextrose (Dextrose 50%) 25 ml Q30M PRN IV Hypoglycemia 01/25/19 19:00 02/24/19 18:59 Dextrose (Dextrose 50%) 50 ml Q30M PRN IV Hypoglycemia 01/25/19 19:00 02/24/19 18:59 Dextrose/Sodium Chloride 1,000 ml @ 50 mls/hr Q20H IV 02/11/19 10:15 03/13/19 10:14 02/13/19 00:00 Dopamine HCl/ Dextrose 250 ml @ 0 mls/hr Q24H IV 02/06/19 06:00 03/08/19 05:59 02/09/19 05:05 Haloperidol Lactate (Haldol) 2 mg Q4H PRN IM Agitation 02/11/19 10:15 03/13/19 10:14 02/11/19 22:11 Hydrocortisone (Solu-CORTEF) 100 mg EVERY 8 HOURS IV 02/05/19 22:00 03/07/19 21:59 02/13/19 05:44 Insulin Aspart (NovoLOG) EVERY 6 HOURS SUBQ 01/26/19 00:00 02/25/19 00:00 02/13/19 05:45 Midodrine (Pro-Amatine) 10 mg THREE TIMES A DAY NG 02/04/19 18:00 03/01/19 12:59 02/12/19 12:48 Polyethylene Glycol (Miralax) 17 gm DAILYPRN PRN ORAL Constipation 01/24/19 20:00 02/23/19 19:59 02/01/19 05:47 Quetiapine Fumarate (SEROqueL) 50 mg Q12HR ORAL 02/12/19 21:00 03/13/19 10:14 02/12/19 20:54 Last 24 Hour Vital Signs Date Time Temp Pulse Resp B/P (MAP) Pulse Ox O2 Delivery O2 Flow Rate FiO2 02/13/19 06:00 62 18 108/40 (62) 95 02/13/19 05:00 57 15 120/55 (76) 96 02/13/19 04:00 Nasal Cannula 1.0 02/13/19 04:00 98.1 63 17 127/47 (73) 92 02/13/19 03:00 74 14 126/66 (86) 94 02/13/19 02:00 50 17 108/51 (70) 96 02/13/19 01:00 50 11 128/50 (76) 98 02/13/19 00:00 Nasal Cannula 1.0 02/13/19 00:00 48 02/13/19 00:00 99.2 51 19 111/55 (73) 100 02/12/19 23:00 55 16 111/56 (74) 100 02/12/19 22:00 68 18 117/63 (81) 02/12/19 21:00 Nasal Cannula 1.0 02/12/19 21:00 57 19 110/55 (73) 96 02/12/19 21:00 54 02/12/19 20:00 51 17 108/48 (68) 93 02/12/19 19:03 93 Nasal Cannula 2.0 28 02/12/19 19:00 62 18 122/67 (85) 96 02/12/19 18:00 57 22 114/60 (78) 94 02/12/19 17:00 77 22 135/67 (89) 93 02/12/19 16:00 Nasal Cannula 1.0 02/12/19 16:00 98.1 67 19 115/64 (81) 97 02/12/19 15:52 54 02/12/19 15:00 54 11 127/55 (79) 95 02/12/19 14:00 52 19 112/59 (76) 95 02/12/19 13:00 63 17 123/53 (76) 94 02/12/19 12:33 54 02/12/19 12:00 98.0 62 16 107/82 (90) 97 02/12/19 12:00 Nasal Cannula 1.0 02/12/19 11:00 50 17 120/45 (70) 100 02/12/19 10:00 63 16 114/49 (70) 100 02/12/19 09:00 53 14 127/66 (86) 99 02/12/19 08:30 94 Nasal Cannula 2.0 28 02/12/19 08:00 97.5 58 17 121/60 (80) 99 02/12/19 08:00 Nasal Cannula 2.0 02/12/19 07:37 56 02/12/19 07:00 51 18 123/55 (77) 100 02/12/19 06:00 136/69 02/12/19 06:00 54 18 136/69 (91) 99 02/12/19 05:00 53 18 111/58 (75) 99 02/12/19 04:00 98.5 81 19 126/60 (82) 98 02/12/19 04:00 70 02/12/19 04:00 Nasal Cannula 2.0 02/12/19 03:00 52 18 138/56 (83) 100 02/12/19 02:00 53 16 137/48 (77) 100 02/12/19 01:00 71 17 127/55 (79) 100 02/12/19 00:00 56 19 120/51 (74) 100 02/12/19 00:00 98.0 56 19 120/51 (74) 100 02/12/19 00:00 Nasal Cannula 2.0 02/11/19 23:00 69 18 121/54 (76) 97 02/11/19 22:00 87 18 111/59 (76) 94 02/11/19 21:00 56 18 125/58 (80) 99 02/11/19 20:00 Nasal Cannula 2.0 02/11/19 20:00 98.4 82 17 129/50 (76) 94 02/11/19 20:00 57 02/11/19 19:00 56 19 120/50 (73) 96 02/11/19 18:00 79 18 124/53 (76) 96 02/11/19 17:00 59 18 120/54 (76) 96 02/11/19 16:00 98.5 77 21 123/57 (79) 93 02/11/19 16:00 61 02/11/19 16:00 Nasal Cannula 2.0 02/11/19 15:00 80 21 135/73 (93) 91 02/11/19 14:00 59 17 136/65 (88) 97 02/11/19 13:00 74 17 128/58 (81) 96 02/11/19 12:00 54 02/11/19 12:00 Nasal Cannula 2.0 02/11/19 12:00 97.9 58 20 121/52 (75) 96 02/11/19 11:00 62 19 128/57 (80) 94 02/11/19 10:00 61 14 123/50 (74) 95 02/11/19 09:00 54 18 127/49 (75) 98 02/11/19 08:00 Nasal Cannula 2.0 02/11/19 08:00 53 20 131/52 (78) 99 02/11/19 08:00 53 Intake and Output 02/12/19 02/13/19 19:00 07:00 Intake Total 897.5 ml 700 ml Output Total 1255 ml 555 ml Balance -357.5 ml 145 ml IV Total 897.5 ml 700 ml Output Urine Total 1255 ml 555 ml Labs Test 02/10/19 09:15 02/11/19 03:30 02/12/19 03:30 02/13/19 04:00 Ammonia 21 umol/L (11-32) White Blood Count 8.9 K/UL (4.8-10.8) 7.7 K/UL (4.8-10.8) 7.1 K/UL (4.8-10.8) Red Blood Count 3.52 M/UL (4.70-6.10) 3.34 M/UL (4.70-6.10) 3.51 M/UL (4.70-6.10) Hemoglobin 10.7 G/DL (14.2-18.0) 10.2 G/DL (14.2-18.0) 10.4 G/DL (14.2-18.0) Hematocrit 32.5 % (42.0-52.0) 30.6 % (42.0-52.0) 31.8 % (42.0-52.0) Mean Corpuscular Volume 92 FL (80-99) 92 FL (80-99) 91 FL (80-99) Mean Corpuscular Hemoglobin 30.3 PG (27.0-31.0) 30.5 PG (27.0-31.0) 29.8 PG (27.0-31.0) Mean Corpuscular Hemoglobin Concent 32.8 G/DL (32.0-36.0) 33.3 G/DL (32.0-36.0) 32.9 G/DL (32.0-36.0) Red Cell Distribution Width 14.4 % (11.6-14.8) 14.4 % (11.6-14.8) 13.8 % (11.6-14.8) Platelet Count 59 K/UL (150-450) 46 K/UL (150-450) 46 K/UL (150-450) Mean Platelet Volume 6.7 FL (6.5-10.1) 6.5 FL (6.5-10.1) 8.0 FL (6.5-10.1) Neutrophils (%) (Auto) % (45.0-75.0) % (45.0-75.0) % (45.0-75.0) Lymphocytes (%) (Auto) % (20.0-45.0) % (20.0-45.0) % (20.0-45.0) Monocytes (%) (Auto) % (1.0-10.0) % (1.0-10.0) % (1.0-10.0) Eosinophils (%) (Auto) % (0.0-3.0) % (0.0-3.0) % (0.0-3.0) Basophils (%) (Auto) % (0.0-2.0) % (0.0-2.0) % (0.0-2.0) Differential Total Cells Counted 100 100 Neutrophils % (Manual) 73 % (45-75) 83 % (45-75) Lymphocytes % (Manual) 18 % (20-45) 13 % (20-45) Monocytes % (Manual) 9 % (1-10) 4 % (1-10) Eosinophils % (Manual) 0 % (0-3) 0 % (0-3) Basophils % (Manual) 0 % (0-2) 0 % (0-2) Band Neutrophils 0 % (0-8) 0 % (0-8) Platelet Estimate Decreased Decreased Platelet Morphology Normal Normal Hypochromasia 1+ Anisocytosis 1+ 1+ Sodium Level 145 MMOL/L (136-145) 142 MMOL/L (136-145) 140 MMOL/L (136-145) Potassium Level 4.6 MMOL/L (3.5-5.1) 3.7 MMOL/L (3.5-5.1) 3.1 MMOL/L (3.5-5.1) Chloride Level 109 MMOL/L (98-107) 106 MMOL/L (98-107) 104 MMOL/L (98-107) Carbon Dioxide Level 32 MMOL/L (21-32) 34 MMOL/L (21-32) 34 MMOL/L (21-32) Anion Gap 4 mmol/L (5-15) 3 mmol/L (5-15) 2 mmol/L (5-15) Blood Urea Nitrogen 15 mg/dL (7-18) 11 mg/dL (7-18) 10 mg/dL (7-18) Creatinine 1.1 MG/DL (0.55-1.30) 1.0 MG/DL (0.55-1.30) 0.9 MG/DL (0.55-1.30) Estimat Glomerular Filtration Rate > 60 mL/min (>60) > 60 mL/min (>60) > 60 mL/min (>60) Glucose Level 135 MG/DL (74-106) 132 MG/DL (74-106) 135 MG/DL (74-106) Calcium Level 7.7 MG/DL (8.5-10.1) 7.5 MG/DL (8.5-10.1) 7.3 MG/DL (8.5-10.1) Phosphorus Level 2.1 MG/DL (2.5-4.9) 3.0 MG/DL (2.5-4.9) Magnesium Level 1.6 MG/DL (1.8-2.4) 2.1 MG/DL (1.8-2.4) Total Bilirubin 0.7 MG/DL (0.2-1.0) 0.7 MG/DL (0.2-1.0) Aspartate Amino Transf (AST/SGOT) 41 U/L (15-37) 38 U/L (15-37) Alanine Aminotransferase (ALT/SGPT) 60 U/L (12-78) 57 U/L (12-78) Alkaline Phosphatase 103 U/L (46-116) 105 U/L (46-116) C-Reactive Protein, Quantitative 2.1 mg/dL (0.00-0.90) Pro-B-Type Natriuretic Peptide 85107 pg/mL (0-125) Total Protein 5.3 G/DL (6.4-8.2) 5.4 G/DL (6.4-8.2) Albumin 2.0 G/DL (3.4-5.0) 2.0 G/DL (3.4-5.0) Globulin 3.3 g/dL 3.4 g/dL Albumin/Globulin Ratio 0.6 (1.0-2.7) 0.6 (1.0-2.7) Prothrombin Time 12.4 SEC (9.30-11.50) Prothromb Time International Ratio 1.2 (0.9-1.1) Activated Partial Thromboplast Time 26 SEC (23-33) Height (Feet): 5 Height (Inches): 7.00 Weight (Pounds): 157 Objective Physical Exam Vital Signs noted Gen: agitated Neck: supple Respiratory: normal breath sounds + 2l nc Cardiovascular: normal rate Gastrointestinal: soft Rectal: deferred Neurologic: alert, responsive Med Izquierdo MD Feb 13, 2019 07:03
--- NOTE | 2019-02-13 07:04 | NUR ---
HAND-OFF: Report given to Bijal BELLO.
--- NOTE | 2019-02-13 07:30 | NUR ---
NURSE NOTES: LATE ENTRY: RECEIVED REPORT FROM RANDY BELLO. PT IN BED RESTING, DROWSY, AROUSE TO SHAKING, FLAT EFFECT, FALLS BACK TO SLEEP. A/OX1. NO C/O PAIN. PUPILS 3MM SLUGGISH. ON 2L NC SATING 90%, ETCO2 25. HOB30. VS: BP 118/ 55, HR 53, RR 18. NO RESPIRATORY DISTRESS NOTED. LUNG SOUNDS RHONCHI BILATERAL LOWER LOBES, MILD COUGH, NO SPUTUM AT THIS TIME. ABDOMEN ROUND, SOFT, NON TENDER. NO BM SINCE 02/12. WELLS CATH PRESENT, SECURE TO LEG, DRAINING BELOW BLADDER, YELLOW URINE. SKIN-SEE ASSESSMENT. JONATHAN PICC, DRESSING INTACT. RUNNING D51/2 NS AT 50ML/HR. PT ON CALORIE COUNT. DIET LIQUIFIED PUREE, NEEDS FEEDER. CONTACT PRECAUTIONS IN PLACE. CALL LIGHT IN REACH, BED LOCKED IN LOW POSITION. WILL CONTINUE TO MONITOR PT.
--- NOTE | 2019-02-13 07:39 | Pulmonolgy Critical Care Note ---
Critical Care - Asmt/Plan Assessment/Plan: ASSESSMENT Acute respiratory failure requiring intubation, s/p extubation 02/02 Septic shock -resolved Acute metabolic encephalopathy Lactic acidosis MRSA pneumonia Acute on chronic renal failure Anemia Sinus bradycardia LV Systolic dysfunction Cardiomyopathy with EF 30 to 35% COPD Acute DVT LLE Diabetes mellitus Multiple pressure injury present on admission Paranoid schizophrenia with acute exacerbation Thrombocytopenia PLAN OF CARE ICU, off pressors, on Midodrine extubated 02/02 O2 HHN prn fup with CXR abx as per ID-completed Echo with EF 30 to 35% global LV hypokinesis monitor renal parameters, lytes ; correct electrolytes as needed ; avoid nephrotoxic ; replace K today Venous Duplex 02/09 + acute DVT LLE No a/c given low PLT ; need IVC filter DVT prophylaxis swallow eval / BSSE and VSSE noted, recommended NPO, awaiting PEG BS management with SSI monitor H&H with goal to keep Hgb above 7 wound care as per surgeon recommendation strict aspiration precaution ; tube feeding heme follows, transfuse PLT as per heme order supportive care transfer to tele case discussed and evaluated by supervising physician Critical Care - Objective Last 24 Hour Vital Signs Date Time Temp Pulse Resp B/P (MAP) Pulse Ox O2 Delivery O2 Flow Rate FiO2 02/13/19 07:00 53 18 118/55 (76) 90 02/13/19 06:00 62 18 108/40 (62) 95 02/13/19 05:00 57 15 120/55 (76) 96 02/13/19 04:00 Nasal Cannula 1.0 02/13/19 04:00 98.1 63 17 127/47 (73) 92 02/13/19 03:00 74 14 126/66 (86) 94 02/13/19 02:00 50 17 108/51 (70) 96 02/13/19 01:00 50 11 128/50 (76) 98 02/13/19 00:00 Nasal Cannula 1.0 02/13/19 00:00 48 02/13/19 00:00 99.2 51 19 111/55 (73) 100 02/12/19 23:00 55 16 111/56 (74) 100 02/12/19 22:00 68 18 117/63 (81) 02/12/19 21:00 Nasal Cannula 1.0 02/12/19 21:00 57 19 110/55 (73) 96 02/12/19 21:00 54 02/12/19 20:00 51 17 108/48 (68) 93 02/12/19 19:03 93 Nasal Cannula 2.0 28 02/12/19 19:00 62 18 122/67 (85) 96 02/12/19 18:00 57 22 114/60 (78) 94 02/12/19 17:00 77 22 135/67 (89) 93 02/12/19 16:00 Nasal Cannula 1.0 02/12/19 16:00 98.1 67 19 115/64 (81) 97 02/12/19 15:52 54 02/12/19 15:00 54 11 127/55 (79) 95 02/12/19 14:00 52 19 112/59 (76) 95 02/12/19 13:00 63 17 123/53 (76) 94 02/12/19 12:33 54 02/12/19 12:00 98.0 62 16 107/82 (90) 97 02/12/19 12:00 Nasal Cannula 1.0 02/12/19 11:00 50 17 120/45 (70) 100 02/12/19 10:00 63 16 114/49 (70) 100 02/12/19 09:00 53 14 127/66 (86) 99 02/12/19 08:30 94 Nasal Cannula 2.0 28 02/12/19 08:00 97.5 58 17 121/60 (80) 99 02/12/19 08:00 Nasal Cannula 2.0 02/12/19 07:37 56 Objective: Status: awake, responsive Condition: improving HEENT: atraumatic, normocephalic, NGT Lungs: CTAB Heart: alanan, Abdomen: soft, non-tender, : Costello Extremities: no C/C/E Accucheck: 125 Critical Care - Subjective ROS Limited/Unobtainable: Yes Interval Events: afebrile, no leukocytosis, on O2 via NC no signs of resp distress low PLT-46, transfusion ordered K-3.1 Condition: critical IV Access: PICC - RUE intact EKG Rhythm: Sinus Bradycardia FI02: 28 Sputum Amount: None Fluids: D51/2 NS at 50 I&O: Intake and Output 02/12/19 02/13/19 19:00 07:00 Intake Total 897.5 ml 750 ml Output Total 1255 ml 600 ml Balance -357.5 ml 150 ml IV Total 897.5 ml 750 ml Output Urine Total 1255 ml 600 ml CXR: 02/12 Patchy interstitial and alveolar densities demonstrated throughout the lungs bilaterally slightly worse compared to the prior occasion and most likely on the basis of interstitial edema. Heart size is relatively normal. Lung volumes are low. IMPRESSION: Suspected moderate pulmonary edema ET-Tube: 7.5 ET Position: 26 Thelma Cano NP Feb 13, 2019 07:39
[2019-02-13] MEDS ORDERED: Albuterol/Ipratropium 3ml neb HHN PRN ×2 (07:45→17:00)
--- NOTE | 2019-02-13 07:57 | NUR ---
NURSE NOTES: Received call from lab, requesting pink top for type and cross, blood sample obtained and sent to lab.
--- NOTE | 2019-02-13 08:00 | Progress Note ---
DATE: 02/13/2019 SUBJECTIVE: This is a 68-year-old male with sepsis and dehydration. This patient is still very confused and disorganized. Mood labile. He has no logical plan for his own self care. He has got . He is still in the ICU, very confused, disorganized, combative, . MENTAL STATUS EXAMINATION: This is a 68-year-old male. Appearance is disheveled. Attitude, irritable and agitated. Affect, guarded and restricted. Intellect poor. Mood, depressed and anxious. Motor activity, psychomotor agitation. Insight and judgment is poor. DIAGNOSIS: Paranoid schizophrenia. PLAN: Continue him on psychotropic medications to stabilize his mood and 20 minutes of behavioral management therapy. Chart reviewed. Discussed with staff. Seen and assessed at bedside. Stacie Paige M.D. DR: MEY JOB#: [id number] CC:
--- NOTE | 2019-02-13 08:40 | NUR ---
NURSE NOTES: [employer] IRA HERE TO SEE PT. WAS INFORMED OF PT ON 1L NC, SATING 95%, RR14-23. BRADYCARDIC, 40-50. PT EATING MINIMAL PERCENTAGE OF MEALS. WILL STILL NEED PEG, IVC FILTER, PLATELETS. FEELS PT CAN BE TRANSFERRED OUT ICU, LIKELY TELE. SHE WILL CHECK ADDITIONAL LABS, PLACED ORDER FOR K REPLACEMENT.
--- NOTE | 2019-02-13 08:49 | Diagnostic Imaging Report ---
EXAM: XR Chest, 1 View CLINICAL HISTORY: DYSPNEA TECHNIQUE: Frontal view of the chest. COMPARISON: Chest x-ray 02/12/19 812 FINDINGS: Lungs: Similar bilateral interstitial and airspace opacities, likely pulmonary edema. Pleural space: Unremarkable. No pneumothorax. Heart: Unremarkable. No cardiomegaly. Mediastinum: Unremarkable. Bones/joints: Unremarkable. IMPRESSION: Similar bilateral interstitial and airspace opacities, likely pulmonary edema.
[2019-02-13] MEDS: Ascorbic Acid 500mg tab ORAL SCH ×2 (08:58→17:37)
[2019-02-13] MEDS: Midodrine 10mg tab NG SCH ×2 (08:59→13:00)
[2019-02-13] MEDS ORDERED: D5 1/2NS 1000ml IV ONE ×2 (09:37)
[2019-02-13] MEDS ORDERED: Tubing IV Secondary IV ONE ×2 (09:37→15:27)
--- NOTE | 2019-02-13 11:46 | NUR ---
NURSE NOTES: 03/17 units of platelets transfusing. AX temp 97.0, used alternate route pt unable to keep probe under tongue for accurate reading. BP 113/48, Hr 55. educated pt s/s to report while receiving transfusion, will continue to monitor pt.
--- NOTE | 2019-02-13 12:04 | NUR ---
NURSE NOTES: 03/17 unit platelets running, ax temp 97.3, HR 50, BP 123/51. PT IS NOT SHOWING S/S OF REACTION, WILL CONTINUE TO MONITOR PT
--- NOTE | 2019-02-13 12:30 | NUR ---
NURSE NOTES: pt cleaned and repositioned. Afebrile, BP stable. asymptomatic bradycardia 40's. urine output 40ml/hr. no bm at this time.
--- NOTE | 2019-02-13 14:47 | Surgery Progress Note ---
Surgery Progress Note Subjective Additional Comments Patient is alert awake not aggressive today comfortable states he is well has no complaints. Wants food. No nausea vomiting fever chills. Labs noted. Pending PEG Objective Last 24 Hour Vital Signs Date Time Temp Pulse Resp B/P (MAP) Pulse Ox O2 Delivery O2 Flow Rate FiO2 02/13/19 14:00 57 19 109/61 (77) 98 02/13/19 13:00 63 19 146/51 (82) 98 02/13/19 12:00 97.3 55 17 122/51 (74) 99 02/13/19 12:00 64 02/13/19 12:00 Nasal Cannula 1.0 02/13/19 11:00 45 16 113/52 (72) 98 02/13/19 10:00 48 10 122/45 (70) 98 02/13/19 09:06 96 Nasal Cannula 2.0 28 02/13/19 09:00 52 16 126/56 (79) 96 02/13/19 08:00 50 02/13/19 08:00 Nasal Cannula 1.0 02/13/19 08:00 99.0 83 19 131/89 (103) 92 02/13/19 07:00 53 18 118/55 (76) 90 02/13/19 06:00 62 18 108/40 (62) 95 02/13/19 05:00 57 15 120/55 (76) 96 02/13/19 04:00 Nasal Cannula 1.0 02/13/19 04:00 98.1 63 17 127/47 (73) 92 02/13/19 03:00 74 14 126/66 (86) 94 02/13/19 02:00 50 17 108/51 (70) 96 02/13/19 01:00 50 11 128/50 (76) 98 02/13/19 00:00 Nasal Cannula 1.0 02/13/19 00:00 48 02/13/19 00:00 99.2 51 19 111/55 (73) 100 02/12/19 23:00 55 16 111/56 (74) 100 02/12/19 22:00 68 18 117/63 (81) 02/12/19 21:00 Nasal Cannula 1.0 02/12/19 21:00 57 19 110/55 (73) 96 02/12/19 21:00 54 02/12/19 20:00 51 17 108/48 (68) 93 02/12/19 19:03 93 Nasal Cannula 2.0 28 02/12/19 19:00 62 18 122/67 (85) 96 02/12/19 18:00 57 22 114/60 (78) 94 02/12/19 17:00 77 22 135/67 (89) 93 02/12/19 16:00 Nasal Cannula 1.0 02/12/19 16:00 98.1 67 19 115/64 (81) 97 02/12/19 15:52 54 02/12/19 15:00 54 11 127/55 (79) 95 I&O Intake and Output 02/12/19 02/13/19 19:00 07:00 Intake Total 897.5 ml 750 ml Output Total 1255 ml 600 ml Balance -357.5 ml 150 ml IV Total 897.5 ml 750 ml Output Urine Total 1255 ml 600 ml Dressing: other Wound: other Drains: other Cardiovascular: RSR Respiratory: decreased breath sounds Abdomen: soft, present bowel sounds Extremities: no cyanosis Laboratory Tests Test 02/13/19 04:00 White Blood Count 7.1 K/UL (4.8-10.8) Red Blood Count 3.51 M/UL (4.70-6.10) L Hemoglobin 10.4 G/DL (14.2-18.0) L Hematocrit 31.8 % (42.0-52.0) L Mean Corpuscular Volume 91 FL (80-99) Mean Corpuscular Hemoglobin 29.8 PG (27.0-31.0) Mean Corpuscular Hemoglobin Concent 32.9 G/DL (32.0-36.0) Red Cell Distribution Width 13.8 % (11.6-14.8) Platelet Count 46 K/UL (150-450) L Mean Platelet Volume 8.0 FL (6.5-10.1) Neutrophils (%) (Auto) % (45.0-75.0) Lymphocytes (%) (Auto) % (20.0-45.0) Monocytes (%) (Auto) % (1.0-10.0) Eosinophils (%) (Auto) % (0.0-3.0) Basophils (%) (Auto) % (0.0-2.0) Differential Total Cells Counted 100 Neutrophils % (Manual) 75 % (45-75) Lymphocytes % (Manual) 23 % (20-45) Monocytes % (Manual) 2 % (1-10) Eosinophils % (Manual) 0 % (0-3) Basophils % (Manual) 0 % (0-2) Band Neutrophils 0 % (0-8) Platelet Estimate Decreased L Platelet Morphology Normal Red Blood Cell Morphology Normal Prothrombin Time 12.4 SEC (9.30-11.50) H Prothromb Time International Ratio 1.2 (0.9-1.1) H Activated Partial Thromboplast Time 26 SEC (23-33) Sodium Level 140 MMOL/L (136-145) Potassium Level 3.1 MMOL/L (3.5-5.1) L Chloride Level 104 MMOL/L (98-107) Carbon Dioxide Level 34 MMOL/L (21-32) H Anion Gap 2 mmol/L (5-15) L Blood Urea Nitrogen 10 mg/dL (7-18) Creatinine 0.9 MG/DL (0.55-1.30) Estimat Glomerular Filtration Rate > 60 mL/min (>60) Glucose Level 135 MG/DL (74-106) H Calcium Level 7.3 MG/DL (8.5-10.1) L Phosphorus Level 3.0 MG/DL (2.5-4.9) Magnesium Level 2.1 MG/DL (1.8-2.4) Total Bilirubin 0.7 MG/DL (0.2-1.0) Aspartate Amino Transf (AST/SGOT) 38 U/L (15-37) H Alanine Aminotransferase (ALT/SGPT) 57 U/L (12-78) Alkaline Phosphatase 105 U/L (46-116) Total Protein 5.4 G/DL (6.4-8.2) L Albumin 2.0 G/DL (3.4-5.0) L Globulin 3.4 g/dL Albumin/Globulin Ratio 0.6 (1.0-2.7) L Plan Problems: (1) Sepsis Assessment & Plan: afebrile, HD improving HR -noted cardiology input leukocytosis lactic acidosis resolved slowly improving -IV abx as per ID -trend labs -swallow eval not ready so wait until once more responsive plan for trial swallow again next week if cont to fail will discuss with team about peg as currently he is fairly alert discussed with GI. reviewed bioethics Neuro eval for dementia PEG friday. medically necessary and indicated -will follow with recs thank you (2) Septic shock (3) Wound, open Assessment & Plan: Patient presented on admission with multiple pressure injuries being identified. Non-blanching erythema without induration noted to sacrum ,Right and Left buttocks. Scattered areas that are darker and maroon in color noted within base of wound. Scrotum is also erythematous. Unstageable pressure injury noted to Left heel. Base of wound is 100% necrotic but soft. Erythematous margins with surrounding non-blanching erythema.(L)3.2cm x (W)3cm. no drainage Right heel is boggy with non-blanching erythema.. Keloid scar noted distal R tibia. Partial thickness ulcer noted to dorsal R foot. Base of wound is moist and viable. Small amt serous exudate noted. Scattered small dry scabs noted to dorsal R foot. Non-blanching erythema without induration sacrum. R heel boggy but blanchable. Unstageable pressure injury L heel. Soft necrosis with detached borders. Scattered Slough, erythema along borders. Mild odor noted.(L)2.4cm x (W)3.5cm. Non-blanching erythema with fluctuance periwound.Wound Tx. are effective and continued as ordered. All wound prevention protocols continued as care-planned. Tx.Plan: Swab Dorsal R foot and R heel with Betadine. Cover with Optifoam drsg. Change every 3 days and prn. Apply Moisture Barrier Paste to buttocks. Cover sacrum with Optifoam drsg. Change every 3 days and prn. Apply Cavilon Skin Barrier to L heel.Cover with Optifoam drsg. Change every 7 days and prn. APM/JELLY mattress. Reposition at least every 2hours or as tolerated. Off-load heels with pillow. Nutritional Optimization Will monitor while in critical condition DAILY ESTIMATED NEEDS: Needs based on Critical care, sepsis, wounds 69kg 22-30 kcals/kg 8254-6555 total kcals 1.25-2 g protein/kg 86-138 g total protein 25-30 mL/kg 2892-4145 total fluid mLs NUTRITION DIAGNOSIS: Increased kcal and pro needs r/t sepsis, wound healing, and underweight status as evidenced by pt w respiratory distress now intubated, critically elev WBC (*29.7), elev BG (200's), w/ multiple wounds (refer to eval), pt is @88% if Rolla Body Weight. CURRENT TF: Glucerna 1.2 @30ml ENTERAL NUTRITION RECOMMENDATIONS: VITAL AF 1.2 @60ml/hr x24 hrs to provide 1440ml, 1728 kcal, 108g pro, 1168ml free H2O - WITH HEMODYNAMIC STABILITY, rec TF change to VITAL 1.2 to better meet est needs. Start @20ml/hr for 6 hrs. Advance as tolerated 10ml/hr q4-6 hrs to goal. - Flush per . HOB over 30 degrees If pt remains on pressor support, rec trophic feeds of Vital 1.2 @5-10ml/hr to maintain gut integrity. ------ ADDITIONAL RECOMMENDATIONS: 1) Per SNF: HT 71 inches, 152 lbs (69.1kg) 2) Wound care: Add DANIELA in 4oz water BID via OGT + VIT C 250mg BID (f/up w/ WC specialist) 3) Monitor lytes daily, replete as needed 4) Daily calibrated bed scale wts Mauricio Anne Feb 13, 2019 14:47
--- NOTE | 2019-02-13 15:00 | NUR ---
NURSE NOTES: LATE ENTRY: PT IN BED WATCHING TV. FLAT EFFECT. A/OX1. NO C/O PAIN. ON 2L NC SATING 90%. HOB30. MILD COUGH, NO SPUTUM AT THIS TIME. ABDOMEN ROUND, SOFT, NON TENDER. WELLS CATH DRAINING BELOW BLADDER, YELLOW URINE. JONATHAN PICC, DRESSING INTACT. RUNNING D51/2 NS AT 50ML/HR. CONTACT PRECAUTIONS IN PLACE. CALL LIGHT IN REACH, BED LOCKED IN LOW POSITION. WILL CONTINUE TO MONITOR PT.
[2019-02-13] MEDS ORDERED: NS 275ml ONE (15:27)
[2019-02-13] MEDS ORDERED: Tubing IV Blood Pump IV ONE (15:27)
--- NOTE | 2019-02-13 15:50 | NUR ---
HAND-OFF: Report given to WINNIE BELLO. PT IN ROOM 205-1 TELE UNIT. VSS. PT IN NO ACUTE DISTRESS, ENDORSED PT'S BASELINE SB AT 50'S, GOES LOW 40'S WHEN RESTING, FEEDER ON ASPIRATION PRECAUTIONS.NURSE NOTES:
[2019-02-13] MEDS ORDERED: D5 1/2NS 1,000 ML IV SCH (16:00)
--- NOTE | 2019-02-13 16:00 | NUR ---
NURSE NOTES: I received patient from the ICU and report from Gregg Lomax RN. Patient's mcmahon in place and draining well. PICC line dressing dry and intact. Patient alert and oriented to name. Bed in the lowest position, bed locked and call light within reach. NC on the place and set at 1L. Patient's vital signs are stable and he does not display any signs of distress or SOB.
[2019-02-13] MEDS ORDERED: Haloperidol 5mg/ml Inj IM PRN (17:00)
--- NOTE | 2019-02-13 17:18 | Nephrology Progress Note ---
Assessment/Plan Problem List: (1) Renal failure (ARF), acute on chronic (2) Acute respiratory failure (3) Septic shock (4) Bradyarrhythmia Assessment Renal failure- Likely acute on Chronic- Cr lower Acute respiratory failure- intubated on Vent Septic Shock- On pressors COPD PVD Schizophrenia Plan not eating - need PEG NGT could not be inserted in past trials K and Phos IV as needed Haldol PRN Now ( 02/02) extubated- tolerating well pulmonary support aim to taper dopamine stop IV fluid renal dose dopamin for low HR K supplement down on hydration One dose IV Lasix mag and Phos and K supplement as needed 2D Echo Low Ej Fx - Global Hypokinesis Avoid nephrotoxics afterload reduction monitor renal parameters urine studies ADRIAN IMPRESSION: Nonobstructive stones in the left kidney demonstrated. Bilateral renal cysts. Subjective ROS Limited/Unobtainable: No Constitutional: Reports: malaise Objective Objective Last 24 Hour Vital Signs Date Time Temp Pulse Resp B/P (MAP) Pulse Ox O2 Delivery O2 Flow Rate FiO2 02/13/19 16:00 97.5 59 18 144/67 (92) 96 02/13/19 15:00 53 15 117/45 (69) 98 02/13/19 14:00 57 19 109/61 (77) 98 02/13/19 13:00 63 19 146/51 (82) 98 02/13/19 12:00 97.3 55 17 122/51 (74) 99 02/13/19 12:00 64 02/13/19 12:00 Nasal Cannula 1.0 02/13/19 11:00 45 16 113/52 (72) 98 02/13/19 10:00 48 10 122/45 (70) 98 02/13/19 09:06 96 Nasal Cannula 2.0 28 02/13/19 09:00 52 16 126/56 (79) 96 02/13/19 08:00 50 02/13/19 08:00 Nasal Cannula 1.0 02/13/19 08:00 99.0 83 19 131/89 (103) 92 02/13/19 07:00 53 18 118/55 (76) 90 02/13/19 06:00 62 18 108/40 (62) 95 02/13/19 05:00 57 15 120/55 (76) 96 02/13/19 04:00 Nasal Cannula 1.0 02/13/19 04:00 98.1 63 17 127/47 (73) 92 02/13/19 03:00 74 14 126/66 (86) 94 02/13/19 02:00 50 17 108/51 (70) 96 02/13/19 01:00 50 11 128/50 (76) 98 02/13/19 00:00 Nasal Cannula 1.0 02/13/19 00:00 48 02/13/19 00:00 99.2 51 19 111/55 (73) 100 02/12/19 23:00 55 16 111/56 (74) 100 02/12/19 22:00 68 18 117/63 (81) 02/12/19 21:00 Nasal Cannula 1.0 02/12/19 21:00 57 19 110/55 (73) 96 02/12/19 21:00 54 02/12/19 20:00 51 17 108/48 (68) 93 02/12/19 19:03 93 Nasal Cannula 2.0 28 02/12/19 19:00 62 18 122/67 (85) 96 02/12/19 18:00 57 22 114/60 (78) 94 Intake and Output 02/12/19 02/13/19 19:00 07:00 Intake Total 897.5 ml 750 ml Output Total 1255 ml 600 ml Balance -357.5 ml 150 ml IV Total 897.5 ml 750 ml Output Urine Total 1255 ml 600 ml Laboratory Tests 02/13/19 04:00: White Blood Count 7.1, Red Blood Count 3.51L, Hemoglobin 10.4L, Hematocrit 31.8L , Mean Corpuscular Volume 91, Mean Corpuscular Hemoglobin 29.8, Mean Corpuscular Hemoglobin Concent 32.9, Red Cell Distribution Width 13.8, Platelet Count 46L, Mean Platelet Volume 8.0, Neutrophils (%) (Auto) , Lymphocytes (%) ( Auto) , Monocytes (%) (Auto) , Eosinophils (%) (Auto) , Basophils (%) (Auto) , Differential Total Cells Counted 100, Neutrophils % (Manual) 75, Lymphocytes % ( Manual) 23, Monocytes % (Manual) 2, Eosinophils % (Manual) 0, Basophils % ( Manual) 0, Band Neutrophils 0, Platelet Estimate DecreasedL, Platelet Morphology Normal, Red Blood Cell Morphology Normal, Prothrombin Time 12.4H, Prothromb Time International Ratio 1.2H, Activated Partial Thromboplast Time 26 , Sodium Level 140, Potassium Level 3.1L, Chloride Level 104, Carbon Dioxide Level 34H, Anion Gap 2L, Blood Urea Nitrogen 10, Creatinine 0.9, Estimat Glomerular Filtration Rate > 60, Glucose Level 135H, Calcium Level 7.3L, Phosphorus Level 3.0, Magnesium Level 2.1, Total Bilirubin 0.7, Aspartate Amino Transf (AST/SGOT) 38H, Alanine Aminotransferase (ALT/SGPT) 57, Alkaline Phosphatase 105, Total Protein 5.4L, Albumin 2.0L, Globulin 3.4, Albumin/ Globulin Ratio 0.6L Height (Feet): 5 Height (Inches): 7.00 Weight (Pounds): 157 General Appearance: no apparent distress Cardiovascular: bradycardia Respiratory/Chest: lungs clear Abdomen: distended Objective no change Bienvenido Gonzalez MD Feb 13, 2019 17:18
[2019-02-13] MEDS: Midodrine 10mg tab ORAL SCH (17:22)
--- NOTE | 2019-02-13 17:56 | NUR ---
NURSE NOTES: I went to the patient's room to check his blood sugar and administer medications. The patient refused. I will attempt again.
--- NOTE | 2019-02-13 19:10 | NUR ---
NURSE NOTES: Received report from EUGENIA Espinosa. Patient is awake, lying in semi ramirez's; resting comfortably. A/Ox1-2 with periods of confusion. Denies pain at this time. No signs of acute distress noted. With JONATHAN PICC line, patent and flushed. No erythema, bleeding or infiltration noted. With mcmahon catheter draining well to gravity. On P200 mattress for wound management. Bed at lowest position, brakes on, [id number]. Call light within reach. Will continue to monitor. Addendum: 02/13/19 at 2225 by Sharon Marino RN On oxygen via NC @ 1LPM. No SOB/ noted.
--- NOTE | 2019-02-13 19:20 | NUR ---
HAND-OFF: Report given to Bhavani Marino RN.
[2019-02-13] MEDS ORDERED: Miralax 17gm pkt ORAL PRN (20:00)
[2019-02-13] MEDS: Dyna-Hex 2% Top Sol 2oz TOPIC SCH (20:18)
--- NOTE | 2019-02-13 21:29 | General Progress Note ---
Assessment/Plan Problem List: (1) COPD (chronic obstructive pulmonary disease) ICD Codes: J44.9 - Chronic obstructive pulmonary disease, unspecified SNOMED: 15760981 Qualifiers: Qualified Codes: J44.9 - Chronic obstructive pulmonary disease, unspecified (2) DM (diabetes mellitus) ICD Codes: E11.9 - Type 2 diabetes mellitus without complications SNOMED: 25406910 (3) Thrombocytopenia ICD Codes: D69.6 - Thrombocytopenia, unspecified SNOMED: 601337309 (4) Sepsis ICD Codes: A41.9 - Sepsis, unspecified organism SNOMED: 66971312 Qualifiers: Qualified Codes: A41.9 - Sepsis, unspecified organism (5) Wound, open ICD Codes: T14.8XXA - Other injury of unspecified body region, initial encounter SNOMED: 405056587 (6) Chronic kidney disease ICD Codes: N18.9 - Chronic kidney disease, unspecified SNOMED: 378819521 (7) Malignant neoplasm of right kidney ICD Codes: C64.1 - Malignant neoplasm of right kidney, except renal pelvis SNOMED: 906286316 (8) PVD (peripheral vascular disease) ICD Codes: I73.9 - Peripheral vascular disease, unspecified SNOMED: 240594168 (9) Schizophrenia ICD Codes: F20.9 - Schizophrenia, unspecified SNOMED: 86333808 (10) Acute respiratory failure ICD Codes: J96.00 - Acute respiratory failure, unspecified whether with hypoxia or hypercapnia SNOMED: 31698469 (11) Septic shock ICD Codes: A41.9 - Sepsis, unspecified organism; R65.21 - Severe sepsis with septic shock SNOMED: 05176982 (12) Systolic heart failure ICD Codes: I50.20 - Unspecified systolic (congestive) heart failure SNOMED: 389218635 (13) Renal failure (ARF), acute on chronic ICD Codes: N17.9 - Acute kidney failure, unspecified; N18.9 - Chronic kidney disease, unspecified SNOMED: 932802328 (14) Bradyarrhythmia ICD Codes: I49.8 - Other specified cardiac arrhythmias SNOMED: 691005089 (15) Dysphagia ICD Codes: R13.10 - Dysphagia, unspecified SNOMED: 06724586, 656112768 (16) Encounter for PEG (percutaneous endoscopic gastrostomy) ICD Codes: Z43.1 - Encounter for attention to gastrostomy SNOMED: 511090969, 120007167 (17) cardiomyopathy with EF of 35% Status: stable, progressing, unchanged Assessment/Plan: low k low platlet sepsis fluid management per renal chf improving Subjective ROS Limited/Unobtainable: Yes Allergies: Coded Allergies: No Known Allergies (Unverified , 01/24/19) Objective Last 24 Hour Vital Signs Date Time Temp Pulse Resp B/P (MAP) Pulse Ox O2 Delivery O2 Flow Rate FiO2 02/13/19 20:07 94 Nasal Cannula 2.0 28 02/13/19 19:22 80 18 94 Nasal Cannula 2.0 28 02/13/19 16:08 59 02/13/19 16:00 97.5 59 18 144/67 (92) 96 02/13/19 15:00 53 15 117/45 (69) 98 02/13/19 14:00 57 19 109/61 (77) 98 02/13/19 13:00 63 19 146/51 (82) 98 02/13/19 12:00 97.3 55 17 122/51 (74) 99 02/13/19 12:00 64 02/13/19 12:00 Nasal Cannula 1.0 02/13/19 11:00 45 16 113/52 (72) 98 02/13/19 10:00 48 10 122/45 (70) 98 02/13/19 09:06 96 Nasal Cannula 2.0 28 02/13/19 09:00 52 16 126/56 (79) 96 02/13/19 08:00 50 02/13/19 08:00 Nasal Cannula 1.0 02/13/19 08:00 99.0 83 19 131/89 (103) 92 02/13/19 07:00 53 18 118/55 (76) 90 02/13/19 06:00 62 18 108/40 (62) 95 02/13/19 05:00 57 15 120/55 (76) 96 02/13/19 04:00 Nasal Cannula 1.0 02/13/19 04:00 98.1 63 17 127/47 (73) 92 02/13/19 03:00 74 14 126/66 (86) 94 02/13/19 02:00 50 17 108/51 (70) 96 02/13/19 01:00 50 11 128/50 (76) 98 02/13/19 00:00 Nasal Cannula 1.0 02/13/19 00:00 48 02/13/19 00:00 99.2 51 19 111/55 (73) 100 02/12/19 23:00 55 16 111/56 (74) 100 02/12/19 22:00 68 18 117/63 (81) Intake and Output 02/12/19 02/13/19 19:00 07:00 Intake Total 897.5 ml 750 ml Output Total 1255 ml 600 ml Balance -357.5 ml 150 ml IV Total 897.5 ml 750 ml Output Urine Total 1255 ml 600 ml Laboratory Tests 02/13/19 04:00: White Blood Count 7.1, Red Blood Count 3.51L, Hemoglobin 10.4L, Hematocrit 31.8L , Mean Corpuscular Volume 91, Mean Corpuscular Hemoglobin 29.8, Mean Corpuscular Hemoglobin Concent 32.9, Red Cell Distribution Width 13.8, Platelet Count 46L, Mean Platelet Volume 8.0, Neutrophils (%) (Auto) , Lymphocytes (%) ( Auto) , Monocytes (%) (Auto) , Eosinophils (%) (Auto) , Basophils (%) (Auto) , Differential Total Cells Counted 100, Neutrophils % (Manual) 75, Lymphocytes % ( Manual) 23, Monocytes % (Manual) 2, Eosinophils % (Manual) 0, Basophils % ( Manual) 0, Band Neutrophils 0, Platelet Estimate DecreasedL, Platelet Morphology Normal, Red Blood Cell Morphology Normal, Prothrombin Time 12.4H, Prothromb Time International Ratio 1.2H, Activated Partial Thromboplast Time 26 , Sodium Level 140, Potassium Level 3.1L, Chloride Level 104, Carbon Dioxide Level 34H, Anion Gap 2L, Blood Urea Nitrogen 10, Creatinine 0.9, Estimat Glomerular Filtration Rate > 60, Glucose Level 135H, Calcium Level 7.3L, Phosphorus Level 3.0, Magnesium Level 2.1, Total Bilirubin 0.7, Aspartate Amino Transf (AST/SGOT) 38H, Alanine Aminotransferase (ALT/SGPT) 57, Alkaline Phosphatase 105, Total Protein 5.4L, Albumin 2.0L, Globulin 3.4, Albumin/ Globulin Ratio 0.6L Height (Feet): 5 Height (Inches): 7.00 Weight (Pounds): 157 Tomeka Holloway MD Feb 13, 2019 21:28
[2019-02-14] VITALS: BP 129/66
[2019-02-14] MEDS: NovoLOG Insulin Flexpen SUBQ SCH ×4 (00:26→17:29)
--- NOTE | 2019-02-14 01:17 | NUR ---
NURSE NOTES: Resting throughout the night. No significant change of condition noted. Will continue to monitor.
[2019-02-14] MEDS: Hydrocortisone 100mg Inj IV SCH ×2 (05:46→20:18)
[2019-02-14] MEDS ORDERED: DOPamine 400mg/250ml 250 ML IV SCH (06:00)
[2019-02-14 06:24] LABS: HEMATOCRIT 28.9 % (42.0-52.0); HEMOGLOBIN 9.8 G/DL (14.2-18.0); MEAN CORPUSCULAR VOLUME 90 FL (80-99); PLATELET COUNT 77 K/UL (150-450); RED BLOOD COUNT 3.21 M/UL (4.70-6.10); WHITE BLOOD COUNT 9.4 K/UL (4.8-10.8)
[2019-02-14 06:36] LABS: ALANINE AMINOTRANSFERASE 51 U/L (12-78); ALBUMIN/GLOBULIN RATIO 0.6 (1.0-2.7); ALKALINE PHOSPHATASE 105 U/L (46-116); ANION GAP 2 mmol/L (5-15); ASPARTATE AMINO TRANSFERASE 33 U/L (15-37); BILIRUBIN,TOTAL 0.6 MG/DL (0.2-1.0); BLOOD UREA NITROGEN 10 mg/dL (7-18); CALCIUM 7.1 MG/DL (8.5-10.1); CARBON DIOXIDE 35 MMOL/L (21-32); CHLORIDE 105 MMOL/L (98-107); CREATININE 0.9 MG/DL (0.55-1.30); PHOSPHORUS 2.4 MG/DL (2.5-4.9); POTASSIUM 2.8 MMOL/L (3.5-5.1); SODIUM 142 MMOL/L (136-145)
--- NOTE | 2019-02-14 07:15 | NUR ---
HAND-OFF: Report given to EUGENIA Espinosa. Plan of care endorsed.
--- NOTE | 2019-02-14 07:20 | NUR ---
NURSE NOTES: I received the patient resting in bed. Patient alert to name only. Bed in the lowest position, bed locked and call light within reach. I fed the patient breakfast and he tolerated breakfast well. Costello in place and draining well. Patient does not display any signs of distress or SOB.
[2019-02-14 08:00] VITALS: BP 127/69
--- NOTE | 2019-02-14 08:59 | Pulmonology Progress Note ---
Assessment/Plan Assessment/Plan ASSESSMENT Acute respiratory failure requiring intubation, s/p extubation 02/02 Septic shock -resolved Acute metabolic encephalopathy Lactic acidosis MRSA pneumonia Acute on chronic renal failure Anemia Sinus bradycardia LV Systolic dysfunction Cardiomyopathy with EF 30 to 35% COPD Acute DVT LLE Diabetes mellitus Multiple pressure injury present on admission Paranoid schizophrenia with acute exacerbation Thrombocytopenia PLAN OF CARE off pressors, on Midodrine extubated 02/02 now in tele O2 HHN prn fup with CXR in am abx as per ID-competed, monitor off abx as per ID recs Echo with EF 30 to 35% global LV hypokinesis monitor renal parameters, lytes ; correct electrolytes as needed ; avoid nephrotoxic ; replaced K and P as per nephro venous Duplex 02/09 + acute DVT LLE no a/c given low PLT ; need IVC filter DVT prophylaxis taper steroids swallow eval / BSSE and VSSE noted, started on diet with diet texture as per ST recs with strict asp precautions ? PEG? repeat swallow eval BS management with SSI monitor H&H with goal to keep Hgb above 7 wound care as per surgeon recommendation strict aspiration precaution ; tube feeding heme follows, transfuse PLT as per heme order supportive care case discussed and evaluated by supervising physician Subjective Allergies: Coded Allergies: No Known Allergies (Unverified , 01/24/19) Subjective transferred to tele, remains afebrile, pulse ox stable Mg stable after replacement 02/13, low K and P this am Objective Last 24 Hour Vital Signs Date Time Temp Pulse Resp B/P (MAP) Pulse Ox O2 Delivery O2 Flow Rate FiO2 02/14/19 08:17 Nasal Cannula 1.0 02/14/19 07:16 71 18 93 Room Air 21 02/14/19 07:16 93 Room Air 21 02/14/19 04:00 51 02/14/19 00:00 56 02/14/19 00:00 97.4 62 19 129/66 (87) 97 02/13/19 20:07 94 Nasal Cannula 2.0 28 02/13/19 20:00 97.7 68 19 123/60 (81) 96 02/13/19 20:00 62 02/13/19 20:00 Nasal Cannula 1.0 02/13/19 19:22 80 18 94 Nasal Cannula 2.0 28 02/13/19 16:08 59 02/13/19 16:00 97.5 59 18 144/67 (92) 96 02/13/19 15:00 53 15 117/45 (69) 98 02/13/19 14:00 57 19 109/61 (77) 98 02/13/19 13:00 63 19 146/51 (82) 98 02/13/19 12:00 97.3 55 17 122/51 (74) 99 02/13/19 12:00 64 02/13/19 12:00 Nasal Cannula 1.0 02/13/19 11:00 45 16 113/52 (72) 98 02/13/19 10:00 48 10 122/45 (70) 98 02/13/19 09:06 96 Nasal Cannula 2.0 28 02/13/19 09:00 52 16 126/56 (79) 96 Intake and Output 02/13/19 02/14/19 19:00 07:00 Intake Total 870 ml Output Total 1055 ml Balance -185 ml Intake Oral 60 ml IV Total 800 ml Other 10 ml Output Urine Total 1055 ml Objective Status: awake, responsive, comfortable Condition: improving HEENT: atraumatic, normocephalic, Lungs: CTAB Heart: SB in 50th Abdomen: soft, non-tender, + BS : Costello Extremities: no C/C/E Laboratory Tests 02/14/19 04:30: White Blood Count 9.4, Red Blood Count 3.21L, Hemoglobin 9.8L, Hematocrit 28.9L , Mean Corpuscular Volume 90, Mean Corpuscular Hemoglobin 30.5, Mean Corpuscular Hemoglobin Concent 33.8, Red Cell Distribution Width 14.0, Platelet Count 77#L, Mean Platelet Volume 7.1, Neutrophils (%) (Auto) , Lymphocytes (%) ( Auto) , Monocytes (%) (Auto) , Eosinophils (%) (Auto) , Basophils (%) (Auto) , Differential Total Cells Counted 100, Neutrophils % (Manual) 79H, Lymphocytes % (Manual) 13L, Monocytes % (Manual) 8, Eosinophils % (Manual) 0, Basophils % ( Manual) 0, Band Neutrophils 0, Platelet Estimate DecreasedL, Platelet Morphology Normal, Anisocytosis 1+, Sodium Level 142, Potassium Level 2.8L, Chloride Level 105, Carbon Dioxide Level 35H, Anion Gap 2L, Blood Urea Nitrogen 10, Creatinine 0.9, Estimat Glomerular Filtration Rate > 60, Glucose Level 134H , Calcium Level 7.1L, Phosphorus Level 2.4L, Magnesium Level 1.8, Total Bilirubin 0.6, Aspartate Amino Transf (AST/SGOT) 33, Alanine Aminotransferase ( ALT/SGPT) 51, Alkaline Phosphatase 105, Total Protein 5.2L, Albumin 2.0L, Globulin 3.2, Albumin/Globulin Ratio 0.6L Current Medications Medications (Trade) Dose Ordered Sig/Ricardo Route PRN Reason Start Time Stop Time Status Last Admin Dose Admin Acetaminophen (Tylenol) 650 mg Q4H PRN ORAL T>100.5 02/13/19 16:00 02/23/19 19:59 Albuterol/ Ipratropium (Albuterol/ Ipratropium) 3 ml Q4H PRN HHN Shortness of Breath 02/13/19 17:00 02/18/19 16:59 Ascorbic Acid (Vitamin C) 250 mg TWICE A DAY ORAL 02/13/19 18:00 02/26/19 17:59 Chlorhexidine Gluconate (Roseanna-Hex 2%) 1 applic DAILY@2000 TOPIC 02/13/19 20:00 03/09/19 19:59 02/13/19 20:18 Dextrose (Dextrose 50%) 25 ml Q30M PRN IV Hypoglycemia 02/13/19 16:00 02/24/19 18:59 Dextrose (Dextrose 50%) 50 ml Q30M PRN IV Hypoglycemia 02/13/19 16:00 02/24/19 18:59 Dextrose/ Electrolytes 1,000 ml @ 50 mls/hr Q20H IV 02/14/19 09:30 03/16/19 09:29 Haloperidol Lactate (Haldol) 2 mg Q4H PRN IM Agitation 02/13/19 17:00 03/13/19 16:59 Hydrocortisone (Solu-CORTEF) 100 mg EVERY 8 HOURS IV 02/13/19 22:00 03/07/19 21:59 02/14/19 05:46 Insulin Aspart (NovoLOG) EVERY 6 HOURS SUBQ 02/13/19 18:00 02/25/19 00:00 02/14/19 05:48 Midodrine (Pro-Amatine) 10 mg THREE TIMES A DAY ORAL 02/13/19 18:00 03/01/19 12:59 Pantoprazole (Protonix) 40 mg DAILY ORAL 02/13/19 17:30 03/15/19 17:29 Polyethylene Glycol (Miralax) 17 gm DAILYPRN PRN ORAL Constipation 02/13/19 20:00 02/23/19 19:59 Potassium Phosphate 30 mm/ Sodium Chloride 285 ml @ 47.5 mls/hr ONCE ONCE IV 02/14/19 10:00 02/14/19 15:59 Quetiapine Fumarate (SEROqueL) 50 mg Q12HR ORAL 02/13/19 21:00 03/13/19 10:14 02/13/19 20:18 Thelma Cano NP Feb 14, 2019 08:59
[2019-02-14] MEDS: Midodrine 10mg tab ORAL SCH ×3 (09:00→17:28)
[2019-02-14] MEDS: Ascorbic Acid 500mg tab ORAL SCH ×2 (09:16→17:29)
[2019-02-14] MEDS: D5 1/2NS w/KCl 40meq 1000ml 1,000 ML IV SCH (09:16)
--- NOTE | 2019-02-14 09:35 | Nephrology Progress Note ---
Assessment/Plan Problem List: (1) Renal failure (ARF), acute on chronic (2) Acute respiratory failure (3) Septic shock (4) Bradyarrhythmia Assessment Renal failure- Likely acute on Chronic- Cr lower Acute respiratory failure- intubated on Vent Septic Shock- On pressors COPD PVD Schizophrenia Plan not eating - need PEG NGT could not be inserted in past trials K and Phos IV as needed Haldol PRN Now ( 02/02) extubated- tolerating well pulmonary support aim to taper dopamine stop IV fluid renal dose dopamin for low HR K supplement down on hydration One dose IV Lasix mag and Phos and K supplement as needed 2D Echo Low Ej Fx - Global Hypokinesis Avoid nephrotoxics afterload reduction monitor renal parameters urine studies ADRIAN IMPRESSION: Nonobstructive stones in the left kidney demonstrated. Bilateral renal cysts. Subjective ROS Limited/Unobtainable: No Constitutional: Reports: malaise Objective Objective Last 24 Hour Vital Signs Date Time Temp Pulse Resp B/P (MAP) Pulse Ox O2 Delivery O2 Flow Rate FiO2 02/14/19 08:17 Nasal Cannula 1.0 02/14/19 08:00 98.1 77 19 127/69 (88) 91 02/14/19 07:16 71 18 93 Room Air 21 02/14/19 07:16 93 Room Air 21 02/14/19 04:00 51 02/14/19 00:00 56 02/14/19 00:00 97.4 62 19 129/66 (87) 97 02/13/19 20:07 94 Nasal Cannula 2.0 28 02/13/19 20:00 97.7 68 19 123/60 (81) 96 02/13/19 20:00 62 02/13/19 20:00 Nasal Cannula 1.0 02/13/19 19:22 80 18 94 Nasal Cannula 2.0 28 02/13/19 16:08 59 02/13/19 16:00 97.5 59 18 144/67 (92) 96 02/13/19 15:00 53 15 117/45 (69) 98 02/13/19 14:00 57 19 109/61 (77) 98 02/13/19 13:00 63 19 146/51 (82) 98 02/13/19 12:00 97.3 55 17 122/51 (74) 99 02/13/19 12:00 64 02/13/19 12:00 Nasal Cannula 1.0 02/13/19 11:00 45 16 113/52 (72) 98 02/13/19 10:00 48 10 122/45 (70) 98 Intake and Output 02/13/19 02/14/19 19:00 07:00 Intake Total 870 ml Output Total 1055 ml Balance -185 ml Intake Oral 60 ml IV Total 800 ml Other 10 ml Output Urine Total 1055 ml Laboratory Tests 02/14/19 04:30: White Blood Count 9.4, Red Blood Count 3.21L, Hemoglobin 9.8L, Hematocrit 28.9L , Mean Corpuscular Volume 90, Mean Corpuscular Hemoglobin 30.5, Mean Corpuscular Hemoglobin Concent 33.8, Red Cell Distribution Width 14.0, Platelet Count 77#L, Mean Platelet Volume 7.1, Neutrophils (%) (Auto) , Lymphocytes (%) ( Auto) , Monocytes (%) (Auto) , Eosinophils (%) (Auto) , Basophils (%) (Auto) , Differential Total Cells Counted 100, Neutrophils % (Manual) 79H, Lymphocytes % (Manual) 13L, Monocytes % (Manual) 8, Eosinophils % (Manual) 0, Basophils % ( Manual) 0, Band Neutrophils 0, Platelet Estimate DecreasedL, Platelet Morphology Normal, Anisocytosis 1+, Sodium Level 142, Potassium Level 2.8L, Chloride Level 105, Carbon Dioxide Level 35H, Anion Gap 2L, Blood Urea Nitrogen 10, Creatinine 0.9, Estimat Glomerular Filtration Rate > 60, Glucose Level 134H , Calcium Level 7.1L, Phosphorus Level 2.4L, Magnesium Level 1.8, Total Bilirubin 0.6, Aspartate Amino Transf (AST/SGOT) 33, Alanine Aminotransferase ( ALT/SGPT) 51, Alkaline Phosphatase 105, Total Protein 5.2L, Albumin 2.0L, Globulin 3.2, Albumin/Globulin Ratio 0.6L Height (Feet): 5 Height (Inches): 7.00 Weight (Pounds): 187 General Appearance: no apparent distress Objective no change Bienvenido Gonzalez MD Feb 14, 2019 09:35
[2019-02-14] MEDS ORDERED: Potassium Phosphate 30 MM in NS 275 ML IV ONE (10:00)
--- NOTE | 2019-02-14 10:03 | Infectious Diseases Prog Note ---
Assessment/Plan Assessment/Plan 68yo gentleman with PMH below presents with fever(100.1 is highest recorded in transfer packet) and worsened congestion from SNF. In the ED, pt was placed on oxygen then BiPAP but ultimately intubated. ID consulted for antimicrobial recommendation. Fever (Tmax 100.1) at half-way, SP Leukocytosis, hydrocortisone 01/25-02/02;' SP Lactic acidosis, SP Shock, was on levophed, titrated off, but now on dopamine MRSA PNA COPD? CHF? thick secretions per nurse flu swab negative 01/24 CXR: Extensive opacities within upper lobes demonstrated. In addition there is generalized interstitial densities throughout both lung craig. 01/25 CXR: Bilateral infiltrates appear fairly extensive but unchanged. TTE with EF 30-35% 01/25 sputum cx: MRSA 01/25 urine legionella ag: P 01/27 CXR: Extensive infiltrates bilaterally. Some degree of a superimposed interstitial edema has improved since the last exam. Endotracheal tube and NG tube remain in satisfactory in position. 01/28 CXR: Extensive bilateral infiltrates are again demonstrated without change. Tubes and lines are stable. 01/28 sputum cx: MRSA 01/30 CXR: 1. Overall similar patchy opacities in the lungs, most prominently in the right upper lung and right mid and lower lung. Probable small bilateral pleural effusions. 2. Endotracheal tube terminates in the region of the lower thoracic aorta above the cristina. Enteric tube courses past the diaphragm and out of the [id number], but the sidehole is seen near the GE junction. 02/02 CXR: Interim removal of previously demonstrated nasogastric tube and endotracheal tube. Right arm PICC remains. Bilateral fairly extensive interstitial opacities persist, unchanged. There is a small left pleural effusion again demonstrated 02/04 CXR: Patchy interstitial prominence demonstrated bilaterally. Heart size is stable. 02/08 CXR: No significant change compared to the prior exam Possible UTI? new mcmahon placed in ED 01/25 UA 15-20 WBC 01/25 Ucx: NG Renal US: Nonobstructive stones in the left kidney demonstrated. Bilateral renal cysts. Limited evaluation due to body habitus. 01/25 BCx: ngtd 01/31 bcx: ngtd Failed Swallow evaluation 02/04 at risk for aspiration pneumonitis and pneumonia Thrombocytopenia No diarrhea HIV test negative MRSA screen positive RLE skin graft b/l LE heel pressure ulcers and sacral ulcer Tobacco abuse COPD HTN Kidney cancer OA CKD Anemia Schizophrenia PVD CHF Plan: Continue to monitor off abx as he is stable 02/11 SP Doxycycline #11 02/01 SP Azithromycin #5/5 for atypicals 01/31 Ertapenem #8 01/31 DC Amikacin and vancomycin #6 SP cefepime #1 SP flagyl #1 SP vancomycin #1 aspiration precaution, elevate HOB, oral care, frequent suction pulmonary toilet, chest PT DVT PPX discussed with RN Thank you for this consult. [facility] will continue to follow the patient with you. Subjective Allergies: Coded Allergies: No Known Allergies (Unverified , 01/24/19) Subjective Afebrile No Leukocytosis Objective Vital Signs Last 24 Hour Vital Signs Date Time Temp Pulse Resp B/P (MAP) Pulse Ox O2 Delivery O2 Flow Rate FiO2 02/14/19 08:17 Nasal Cannula 1.0 02/14/19 08:00 98.1 77 19 127/69 (88) 91 02/14/19 07:44 63 02/14/19 07:16 71 18 93 Room Air 21 02/14/19 07:16 93 Room Air 21 02/14/19 04:00 51 02/14/19 00:00 56 02/14/19 00:00 97.4 62 19 129/66 (87) 97 02/13/19 20:07 94 Nasal Cannula 2.0 28 02/13/19 20:00 97.7 68 19 123/60 (81) 96 02/13/19 20:00 62 02/13/19 20:00 Nasal Cannula 1.0 02/13/19 19:22 80 18 94 Nasal Cannula 2.0 28 02/13/19 16:08 59 02/13/19 16:00 97.5 59 18 144/67 (92) 96 02/13/19 15:00 53 15 117/45 (69) 98 02/13/19 14:00 57 19 109/61 (77) 98 02/13/19 13:00 63 19 146/51 (82) 98 02/13/19 12:00 97.3 55 17 122/51 (74) 99 02/13/19 12:00 64 02/13/19 12:00 Nasal Cannula 1.0 02/13/19 11:00 45 16 113/52 (72) 98 Height (Feet): 5 Height (Inches): 7.00 Weight (Pounds): 187 Objective Gen: NAD HEENT: NCAT CV: RRR. Resp: coarse. equal chest rise. Abd: soft. normoactive Bs+ Neuro: awake. appropriate Skin: RLE skin graft Laboratory Tests Test 02/14/19 04:30 White Blood Count 9.4 K/UL (4.8-10.8) Red Blood Count 3.21 M/UL (4.70-6.10) L Hemoglobin 9.8 G/DL (14.2-18.0) L Hematocrit 28.9 % (42.0-52.0) L Mean Corpuscular Volume 90 FL (80-99) Mean Corpuscular Hemoglobin 30.5 PG (27.0-31.0) Mean Corpuscular Hemoglobin Concent 33.8 G/DL (32.0-36.0) Red Cell Distribution Width 14.0 % (11.6-14.8) Platelet Count 77 K/UL (150-450) #L Mean Platelet Volume 7.1 FL (6.5-10.1) Neutrophils (%) (Auto) % (45.0-75.0) Lymphocytes (%) (Auto) % (20.0-45.0) Monocytes (%) (Auto) % (1.0-10.0) Eosinophils (%) (Auto) % (0.0-3.0) Basophils (%) (Auto) % (0.0-2.0) Differential Total Cells Counted 100 Neutrophils % (Manual) 79 % (45-75) H Lymphocytes % (Manual) 13 % (20-45) L Monocytes % (Manual) 8 % (1-10) Eosinophils % (Manual) 0 % (0-3) Basophils % (Manual) 0 % (0-2) Band Neutrophils 0 % (0-8) Platelet Estimate Decreased L Platelet Morphology Normal Anisocytosis 1+ Sodium Level 142 MMOL/L (136-145) Potassium Level 2.8 MMOL/L (3.5-5.1) L Chloride Level 105 MMOL/L (98-107) Carbon Dioxide Level 35 MMOL/L (21-32) H Anion Gap 2 mmol/L (5-15) L Blood Urea Nitrogen 10 mg/dL (7-18) Creatinine 0.9 MG/DL (0.55-1.30) Estimat Glomerular Filtration Rate > 60 mL/min (>60) Glucose Level 134 MG/DL (74-106) H Calcium Level 7.1 MG/DL (8.5-10.1) L Phosphorus Level 2.4 MG/DL (2.5-4.9) L Magnesium Level 1.8 MG/DL (1.8-2.4) Total Bilirubin 0.6 MG/DL (0.2-1.0) Aspartate Amino Transf (AST/SGOT) 33 U/L (15-37) Alanine Aminotransferase (ALT/SGPT) 51 U/L (12-78) Alkaline Phosphatase 105 U/L (46-116) Total Protein 5.2 G/DL (6.4-8.2) L Albumin 2.0 G/DL (3.4-5.0) L Globulin 3.2 g/dL Albumin/Globulin Ratio 0.6 (1.0-2.7) L Current Medications Medications (Trade) Dose Ordered Sig/Ricardo Route PRN Reason Start Time Stop Time Status Last Admin Dose Admin Acetaminophen (Tylenol) 650 mg Q4H PRN ORAL T>100.5 02/13/19 16:00 02/23/19 19:59 Albuterol/ Ipratropium (Albuterol/ Ipratropium) 3 ml Q4H PRN HHN Shortness of Breath 02/13/19 17:00 02/18/19 16:59 Ascorbic Acid (Vitamin C) 250 mg TWICE A DAY ORAL 02/13/19 18:00 02/26/19 17:59 02/14/19 09:16 Chlorhexidine Gluconate (Roseanna-Hex 2%) 1 applic DAILY@2000 TOPIC 02/13/19 20:00 03/09/19 19:59 02/13/19 20:18 Dextrose (Dextrose 50%) 25 ml Q30M PRN IV Hypoglycemia 02/13/19 16:00 02/24/19 18:59 Dextrose (Dextrose 50%) 50 ml Q30M PRN IV Hypoglycemia 02/13/19 16:00 02/24/19 18:59 Dextrose/ Electrolytes 1,000 ml @ 50 mls/hr Q20H IV 02/14/19 09:30 03/16/19 09:29 02/14/19 09:16 Haloperidol Lactate (Haldol) 2 mg Q4H PRN IM Agitation 02/13/19 17:00 03/13/19 16:59 Hydrocortisone (Solu-CORTEF) 100 mg EVERY 8 HOURS IV 02/13/19 22:00 03/07/19 21:59 02/14/19 05:46 Insulin Aspart (NovoLOG) EVERY 6 HOURS SUBQ 02/13/19 18:00 02/25/19 00:00 02/14/19 05:48 Midodrine (Pro-Amatine) 10 mg THREE TIMES A DAY ORAL 02/13/19 18:00 03/01/19 12:59 Pantoprazole (Protonix) 40 mg DAILY ORAL 02/13/19 17:30 03/15/19 17:29 Polyethylene Glycol (Miralax) 17 gm DAILYPRN PRN ORAL Constipation 02/13/19 20:00 02/23/19 19:59 Potassium Phosphate 30 mm/ Sodium Chloride 285 ml @ 47.5 mls/hr ONCE ONCE IV 02/14/19 10:00 02/14/19 15:59 Quetiapine Fumarate (SEROqueL) 50 mg Q12HR ORAL 02/13/19 21:00 03/13/19 10:14 02/14/19 09:17 Sebastian Harley MD Feb 14, 2019 10:03
--- NOTE | 2019-02-14 10:34 | Diagnostic Imaging Report ---
EXAM: XR Chest, 1 View CLINICAL HISTORY: SOB TECHNIQUE: Frontal view of the chest. COMPARISON: Chest x-ray, 02/13/19 804 FINDINGS: Lungs: Similar appearance of bilateral interstitial and airspace opacities. Slightly improved aeration of lung bases. Pleural space: Unremarkable. No pneumothorax. Heart: Unremarkable. No cardiomegaly. Mediastinum: Unremarkable. Bones/joints: Unremarkable. Tubes, lines and devices: Stable right PICC line. IMPRESSION: Similar appearance of bilateral interstitial and airspace opacities. Slightly improved aeration of lung bases.
--- NOTE | 2019-02-14 11:50 | General Progress Note ---
Assessment/Plan Problem List: (1) COPD (chronic obstructive pulmonary disease) ICD Codes: J44.9 - Chronic obstructive pulmonary disease, unspecified SNOMED: 04190861 Qualifiers: Qualified Codes: J44.9 - Chronic obstructive pulmonary disease, unspecified (2) DM (diabetes mellitus) ICD Codes: E11.9 - Type 2 diabetes mellitus without complications SNOMED: 66836689 (3) Thrombocytopenia ICD Codes: D69.6 - Thrombocytopenia, unspecified SNOMED: 861635683 (4) Sepsis ICD Codes: A41.9 - Sepsis, unspecified organism SNOMED: 30872298 Qualifiers: Qualified Codes: A41.9 - Sepsis, unspecified organism (5) Wound, open ICD Codes: T14.8XXA - Other injury of unspecified body region, initial encounter SNOMED: 673757827 (6) Chronic kidney disease ICD Codes: N18.9 - Chronic kidney disease, unspecified SNOMED: 273531126 (7) Malignant neoplasm of right kidney ICD Codes: C64.1 - Malignant neoplasm of right kidney, except renal pelvis SNOMED: 818541891 (8) PVD (peripheral vascular disease) ICD Codes: I73.9 - Peripheral vascular disease, unspecified SNOMED: 443007311 (9) Schizophrenia ICD Codes: F20.9 - Schizophrenia, unspecified SNOMED: 84087770 (10) Acute respiratory failure ICD Codes: J96.00 - Acute respiratory failure, unspecified whether with hypoxia or hypercapnia SNOMED: 12986238 (11) Septic shock ICD Codes: A41.9 - Sepsis, unspecified organism; R65.21 - Severe sepsis with septic shock SNOMED: 52302445 (12) Systolic heart failure ICD Codes: I50.20 - Unspecified systolic (congestive) heart failure SNOMED: 616193097 (13) Renal failure (ARF), acute on chronic ICD Codes: N17.9 - Acute kidney failure, unspecified; N18.9 - Chronic kidney disease, unspecified SNOMED: 062379738 (14) Bradyarrhythmia ICD Codes: I49.8 - Other specified cardiac arrhythmias SNOMED: 134776296 (15) Dysphagia ICD Codes: R13.10 - Dysphagia, unspecified SNOMED: 58933416, 568268503 (16) Encounter for PEG (percutaneous endoscopic gastrostomy) ICD Codes: Z43.1 - Encounter for attention to gastrostomy SNOMED: 390135029, 342477607 (17) cardiomyopathy with EF of 35% Status: stable, progressing, unchanged Assessment/Plan: low k improving low platlet sepsis tumor arrythmia copd no wheezing azotemia fluid management per renal chf improving Subjective ROS Limited/Unobtainable: Yes Allergies: Coded Allergies: No Known Allergies (Unverified , 01/24/19) Objective Last 24 Hour Vital Signs Date Time Temp Pulse Resp B/P (MAP) Pulse Ox O2 Delivery O2 Flow Rate FiO2 02/14/19 08:17 Nasal Cannula 1.0 02/14/19 08:00 98.1 77 19 127/69 (88) 91 02/14/19 07:44 63 02/14/19 07:16 71 18 93 Room Air 21 02/14/19 07:16 93 Room Air 21 02/14/19 04:00 51 02/14/19 00:00 56 02/14/19 00:00 97.4 62 19 129/66 (87) 97 02/13/19 20:07 94 Nasal Cannula 2.0 28 02/13/19 20:00 97.7 68 19 123/60 (81) 96 02/13/19 20:00 62 02/13/19 20:00 Nasal Cannula 1.0 02/13/19 19:22 80 18 94 Nasal Cannula 2.0 28 02/13/19 16:08 59 02/13/19 16:00 97.5 59 18 144/67 (92) 96 02/13/19 15:00 53 15 117/45 (69) 98 02/13/19 14:00 57 19 109/61 (77) 98 02/13/19 13:00 63 19 146/51 (82) 98 02/13/19 12:00 97.3 55 17 122/51 (74) 99 02/13/19 12:00 64 02/13/19 12:00 Nasal Cannula 1.0 Intake and Output 02/13/19 02/14/19 19:00 07:00 Intake Total 870 ml Output Total 1055 ml Balance -185 ml Intake Oral 60 ml IV Total 800 ml Other 10 ml Output Urine Total 1055 ml Laboratory Tests 02/14/19 04:30: White Blood Count 9.4, Red Blood Count 3.21L, Hemoglobin 9.8L, Hematocrit 28.9L , Mean Corpuscular Volume 90, Mean Corpuscular Hemoglobin 30.5, Mean Corpuscular Hemoglobin Concent 33.8, Red Cell Distribution Width 14.0, Platelet Count 77#L, Mean Platelet Volume 7.1, Neutrophils (%) (Auto) , Lymphocytes (%) ( Auto) , Monocytes (%) (Auto) , Eosinophils (%) (Auto) , Basophils (%) (Auto) , Differential Total Cells Counted 100, Neutrophils % (Manual) 79H, Lymphocytes % (Manual) 13L, Monocytes % (Manual) 8, Eosinophils % (Manual) 0, Basophils % ( Manual) 0, Band Neutrophils 0, Platelet Estimate DecreasedL, Platelet Morphology Normal, Anisocytosis 1+, Sodium Level 142, Potassium Level 2.8L, Chloride Level 105, Carbon Dioxide Level 35H, Anion Gap 2L, Blood Urea Nitrogen 10, Creatinine 0.9, Estimat Glomerular Filtration Rate > 60, Glucose Level 134H , Calcium Level 7.1L, Phosphorus Level 2.4L, Magnesium Level 1.8, Total Bilirubin 0.6, Aspartate Amino Transf (AST/SGOT) 33, Alanine Aminotransferase ( ALT/SGPT) 51, Alkaline Phosphatase 105, Total Protein 5.2L, Albumin 2.0L, Globulin 3.2, Albumin/Globulin Ratio 0.6L Height (Feet): 5 Height (Inches): 7.00 Weight (Pounds): 187 Cardiovascular: normal rate Respiratory/Chest: lungs clear Tomeka Holloway MD Feb 14, 2019 11:50
[2019-02-14 12:00] VITALS: BP 139/71
--- NOTE | 2019-02-14 13:21 | Surgery Progress Note ---
Surgery Progress Note Subjective Additional Comments downgraded has been started on oral feeding trail requires aspiration precautions and caregiver for feeding reviewed FOUNTAIN CLERK notes Objective Last 24 Hour Vital Signs Date Time Temp Pulse Resp B/P (MAP) Pulse Ox O2 Delivery O2 Flow Rate FiO2 02/14/19 12:00 97.2 63 20 139/71 (93) 97 02/14/19 08:17 Nasal Cannula 1.0 02/14/19 08:00 98.1 77 19 127/69 (88) 91 02/14/19 07:44 63 02/14/19 07:16 71 18 93 Room Air 21 02/14/19 07:16 93 Room Air 21 02/14/19 04:00 51 02/14/19 00:00 56 02/14/19 00:00 97.4 62 19 129/66 (87) 97 02/13/19 20:07 94 Nasal Cannula 2.0 28 02/13/19 20:00 97.7 68 19 123/60 (81) 96 02/13/19 20:00 62 02/13/19 20:00 Nasal Cannula 1.0 02/13/19 19:22 80 18 94 Nasal Cannula 2.0 28 02/13/19 16:08 59 02/13/19 16:00 97.5 59 18 144/67 (92) 96 02/13/19 15:00 53 15 117/45 (69) 98 02/13/19 14:00 57 19 109/61 (77) 98 I&O Intake and Output 02/13/19 02/14/19 19:00 07:00 Intake Total 870 ml Output Total 1055 ml Balance -185 ml Intake Oral 60 ml IV Total 800 ml Other 10 ml Output Urine Total 1055 ml Dressing: other Wound: other Drains: other Cardiovascular: RSR Respiratory: decreased breath sounds Abdomen: soft, present bowel sounds Extremities: no cyanosis, other Laboratory Tests Test 02/14/19 04:30 White Blood Count 9.4 K/UL (4.8-10.8) Red Blood Count 3.21 M/UL (4.70-6.10) L Hemoglobin 9.8 G/DL (14.2-18.0) L Hematocrit 28.9 % (42.0-52.0) L Mean Corpuscular Volume 90 FL (80-99) Mean Corpuscular Hemoglobin 30.5 PG (27.0-31.0) Mean Corpuscular Hemoglobin Concent 33.8 G/DL (32.0-36.0) Red Cell Distribution Width 14.0 % (11.6-14.8) Platelet Count 77 K/UL (150-450) #L Mean Platelet Volume 7.1 FL (6.5-10.1) Neutrophils (%) (Auto) % (45.0-75.0) Lymphocytes (%) (Auto) % (20.0-45.0) Monocytes (%) (Auto) % (1.0-10.0) Eosinophils (%) (Auto) % (0.0-3.0) Basophils (%) (Auto) % (0.0-2.0) Differential Total Cells Counted 100 Neutrophils % (Manual) 79 % (45-75) H Lymphocytes % (Manual) 13 % (20-45) L Monocytes % (Manual) 8 % (1-10) Eosinophils % (Manual) 0 % (0-3) Basophils % (Manual) 0 % (0-2) Band Neutrophils 0 % (0-8) Platelet Estimate Decreased L Platelet Morphology Normal Anisocytosis 1+ Sodium Level 142 MMOL/L (136-145) Potassium Level 2.8 MMOL/L (3.5-5.1) L Chloride Level 105 MMOL/L (98-107) Carbon Dioxide Level 35 MMOL/L (21-32) H Anion Gap 2 mmol/L (5-15) L Blood Urea Nitrogen 10 mg/dL (7-18) Creatinine 0.9 MG/DL (0.55-1.30) Estimat Glomerular Filtration Rate > 60 mL/min (>60) Glucose Level 134 MG/DL (74-106) H Calcium Level 7.1 MG/DL (8.5-10.1) L Phosphorus Level 2.4 MG/DL (2.5-4.9) L Magnesium Level 1.8 MG/DL (1.8-2.4) Total Bilirubin 0.6 MG/DL (0.2-1.0) Aspartate Amino Transf (AST/SGOT) 33 U/L (15-37) Alanine Aminotransferase (ALT/SGPT) 51 U/L (12-78) Alkaline Phosphatase 105 U/L (46-116) Total Protein 5.2 G/DL (6.4-8.2) L Albumin 2.0 G/DL (3.4-5.0) L Globulin 3.2 g/dL Albumin/Globulin Ratio 0.6 (1.0-2.7) L Plan Problems: (1) Sepsis Assessment & Plan: afebrile, HD improving HR -noted cardiology input leukocytosis lactic acidosis resolved slowly improving -IV abx as per ID -trend labs if cont to fail will discuss with team about peg as currently he is fairly alert discussed with GI. reviewed bioethics Neuro eval for dementia FOUNTAIN CLERK notes reviewed has been started on trial oral feeds -will follow with recs thank you (2) Septic shock (3) Wound, open Assessment & Plan: Patient presented on admission with multiple pressure injuries being identified. Non-blanching erythema without induration noted to sacrum ,Right and Left buttocks. Scattered areas that are darker and maroon in color noted within base of wound. Scrotum is also erythematous. Unstageable pressure injury noted to Left heel. Base of wound is 100% necrotic but soft. Erythematous margins with surrounding non-blanching erythema.(L)3.2cm x (W)3cm. no drainage Right heel is boggy with non-blanching erythema.. Keloid scar noted distal R tibia. Partial thickness ulcer noted to dorsal R foot. Base of wound is moist and viable. Small amt serous exudate noted. Scattered small dry scabs noted to dorsal R foot. Non-blanching erythema without induration sacrum. R heel boggy but blanchable. Unstageable pressure injury L heel. Soft necrosis with detached borders. Scattered Slough, erythema along borders. Mild odor noted.(L)2.4cm x (W)3.5cm. Non-blanching erythema with fluctuance periwound.Wound Tx. are effective and continued as ordered. All wound prevention protocols continued as care-planned. Tx.Plan: Swab Dorsal R foot and R heel with Betadine. Cover with Optifoam drsg. Change every 3 days and prn. Apply Moisture Barrier Paste to buttocks. Cover sacrum with Optifoam drsg. Change every 3 days and prn. Apply Cavilon Skin Barrier to L heel.Cover with Optifoam drsg. Change every 7 days and prn. APM/JELLY mattress. Reposition at least every 2hours or as tolerated. Off-load heels with pillow. Nutritional Optimization Will monitor while in critical condition DAILY ESTIMATED NEEDS: Needs based on Critical care, sepsis, wounds 69kg 22-30 kcals/kg 4106-2780 total kcals 1.25-2 g protein/kg 86-138 g total protein 25-30 mL/kg 3670-3731 total fluid mLs NUTRITION DIAGNOSIS: Increased kcal and pro needs r/t sepsis, wound healing, and underweight status as evidenced by pt w respiratory distress now intubated, critically elev WBC (*29.7), elev BG (200's), w/ multiple wounds (refer to eval), pt is @88% if [place] Body Weight. CURRENT TF: Glucerna 1.2 @30ml ENTERAL NUTRITION RECOMMENDATIONS: VITAL AF 1.2 @60ml/hr x24 hrs to provide 1440ml, 1728 kcal, 108g pro, 1168ml free H2O - WITH HEMODYNAMIC STABILITY, rec TF change to VITAL 1.2 to better meet est needs. Start @20ml/hr for 6 hrs. Advance as tolerated 10ml/hr q4-6 hrs to goal. - Flush per MD. HOB over 30 degrees If pt remains on pressor support, rec trophic feeds of Vital 1.2 @5-10ml/hr to maintain gut integrity. ------ ADDITIONAL RECOMMENDATIONS: 1) Per SNF: HT 71 inches, 152 lbs (69.1kg) 2) Wound care: Add DANIELA in 4oz water BID via OGT + VIT C 250mg BID (f/up w/ WC specialist) 3) Monitor lytes daily, replete as needed 4) Daily calibrated bed scale wtMauricio Harrison Feb 14, 2019 13:21
--- NOTE | 2019-02-14 13:31 | Hematology/Onc Progress Note ---
Assessment/Plan Assessment/Plan Assessment and Recs: # Dvt of the lower left superficial femoral vein with low platelets id contraindicated for ATC therapy --> ordered ivc filter, as per pulm--> at this time, contraindicated for anticoagulants --> no further heparin given low counts --> lack of consent, this is an emergency procedure --> pending bioethics eval # Thrombocytopenia - potential causes multifactorial, evaluate liver and viral etiologies to begin, us abd shows Coarsened hepatic echogenicity, may indicate hepatocellular disease, INr also high, also may be related to sepsis, recovery may have HEP C --> Hep panel pending and HIV negative --> US abd does show some coarsened liver, query cirrhosis, Inr also high --> Peripheral smear ordered to evaluate for blasts /schistocytes --> abx and other meds have been reviewed --> ok for ppx if plt >50k w/ either heparin or lovenox --> Transfuse if Plt < 20k and fever, or if Plt < 10k without fever --> plt trend 74-->70->59k-->46k-->77k --> platelets to be given before procedure, this is an emergency procedure 02/13 # Anemia of chronic disease, borderline --> hgb trend 11-->10.7-->10.4-->9.8 --> panel has been reviewed --> no bleeding noted # Dysphagia, necessitating ng and peg --> ng unsuccessful --> as per gi, pending peg with consent # Septic shock with multiple infection --> on abx per id # Resp failure s/p intubation --> extubated 02/02 --> on nc # COPD # PVD # Schizophrenia # Cardiomyopathy # Dvt ppx scds, needs ivcf DW Rn and appreciate consultation. Subjective Allergies: Coded Allergies: No Known Allergies (Unverified , 01/24/19) Subjective 02/11: remains in the icu, labs noted, reviewed, no bleeding or chills, hep panel pend 02/12: no events noted, remains in icu, needs bioethics pending eval, plts pending 02/13: no major changes, on nc, no bleeding, labs plt 46k, to get 1 unit plts 02/14: transferred to [facility], afebrile, s/p plt tx, plt improved to 77k Objective Objective Current Medications Medications (Trade) Dose Ordered Sig/Ricardo Route PRN Reason Start Time Stop Time Status Last Admin Dose Admin Acetaminophen (Tylenol) 650 mg Q4H PRN ORAL T>100.5 02/13/19 16:00 02/23/19 19:59 Albuterol/ Ipratropium (Albuterol/ Ipratropium) 3 ml Q4H PRN HHN Shortness of Breath 02/13/19 17:00 02/18/19 16:59 Ascorbic Acid (Vitamin C) 250 mg TWICE A DAY ORAL 02/13/19 18:00 02/26/19 17:59 02/14/19 09:16 Chlorhexidine Gluconate (Roseanna-Hex 2%) 1 applic DAILY@1999 TOPIC 02/13/19 20:00 03/09/19 19:59 02/13/19 20:18 Dextrose (Dextrose 50%) 25 ml Q30M PRN IV Hypoglycemia 02/13/19 16:00 02/24/19 18:59 Dextrose (Dextrose 50%) 50 ml Q30M PRN IV Hypoglycemia 02/13/19 16:00 02/24/19 18:59 Dextrose/ Electrolytes 1,000 ml @ 50 mls/hr Q20H IV 02/14/19 09:30 03/16/19 09:29 02/14/19 09:16 Haloperidol Lactate (Haldol) 2 mg Q4H PRN IM Agitation 02/13/19 17:00 03/13/19 16:59 Hydrocortisone (Solu-CORTEF) 100 mg EVERY 12 HOURS IV 02/14/19 21:00 03/07/19 21:59 Insulin Aspart (NovoLOG) EVERY 6 HOURS SUBQ 02/13/19 18:00 02/25/19 00:00 02/14/19 12:08 Midodrine (Pro-Amatine) 10 mg THREE TIMES A DAY ORAL 02/13/19 18:00 03/01/19 12:59 Pantoprazole (Protonix) 40 mg DAILY ORAL 02/13/19 17:30 03/15/19 17:29 02/14/19 10:25 Polyethylene Glycol (Miralax) 17 gm DAILYPRN PRN ORAL Constipation 02/13/19 20:00 02/23/19 19:59 Potassium Phosphate 30 mm/ Sodium Chloride 285 ml @ 47.5 mls/hr ONCE ONCE IV 02/14/19 10:00 02/14/19 15:59 02/14/19 10:25 Quetiapine Fumarate (SEROqueL) 50 mg Q12HR ORAL 02/13/19 21:00 03/13/19 10:14 02/14/19 09:17 Last 24 Hour Vital Signs Date Time Temp Pulse Resp B/P (MAP) Pulse Ox O2 Delivery O2 Flow Rate FiO2 02/14/19 12:00 97.2 63 20 139/71 (93) 97 02/14/19 08:17 Nasal Cannula 1.0 02/14/19 08:00 98.1 77 19 127/69 (88) 91 02/14/19 07:44 63 02/14/19 07:16 71 18 93 Room Air 21 02/14/19 07:16 93 Room Air 21 02/14/19 04:00 51 02/14/19 00:00 56 02/14/19 00:00 97.4 62 19 129/66 (87) 97 02/13/19 20:07 94 Nasal Cannula 2.0 28 02/13/19 20:00 97.7 68 19 123/60 (81) 96 02/13/19 20:00 62 02/13/19 20:00 Nasal Cannula 1.0 02/13/19 19:22 80 18 94 Nasal Cannula 2.0 28 02/13/19 16:08 59 02/13/19 16:00 97.5 59 18 144/67 (92) 96 02/13/19 15:00 53 15 117/45 (69) 98 02/13/19 14:00 57 19 109/61 (77) 98 02/13/19 13:00 63 19 146/51 (82) 98 02/13/19 12:00 97.3 55 17 122/51 (74) 99 02/13/19 12:00 64 02/13/19 12:00 Nasal Cannula 1.0 02/13/19 11:00 45 16 113/52 (72) 98 02/13/19 10:00 48 10 122/45 (70) 98 02/13/19 09:06 96 Nasal Cannula 2.0 28 02/13/19 09:00 52 16 126/56 (79) 96 02/13/19 08:00 50 02/13/19 08:00 Nasal Cannula 1.0 02/13/19 08:00 99.0 83 19 131/89 (103) 92 02/13/19 07:00 53 18 118/55 (76) 90 02/13/19 06:00 62 18 108/40 (62) 95 02/13/19 05:00 57 15 120/55 (76) 96 02/13/19 04:00 Nasal Cannula 1.0 02/13/19 04:00 98.1 63 17 127/47 (73) 92 02/13/19 03:00 74 14 126/66 (86) 94 02/13/19 02:00 50 17 108/51 (70) 96 02/13/19 01:00 50 11 128/50 (76) 98 02/13/19 00:00 Nasal Cannula 1.0 02/13/19 00:00 48 02/13/19 00:00 99.2 51 19 111/55 (73) 100 02/12/19 23:00 55 16 111/56 (74) 100 02/12/19 22:00 68 18 117/63 (81) 02/12/19 21:00 Nasal Cannula 1.0 02/12/19 21:00 57 19 110/55 (73) 96 02/12/19 21:00 54 02/12/19 20:00 51 17 108/48 (68) 93 02/12/19 19:03 93 Nasal Cannula 2.0 28 02/12/19 19:00 62 18 122/67 (85) 96 02/12/19 18:00 57 22 114/60 (78) 94 02/12/19 17:00 77 22 135/67 (89) 93 02/12/19 16:00 Nasal Cannula 1.0 02/12/19 16:00 98.1 67 19 115/64 (81) 97 02/12/19 15:52 54 02/12/19 15:00 54 11 127/55 (79) 95 02/12/19 14:00 52 19 112/59 (76) 95 Intake and Output 02/13/19 02/14/19 19:00 07:00 Intake Total 870 ml Output Total 1055 ml Balance -185 ml Intake Oral 60 ml IV Total 800 ml Other 10 ml Output Urine Total 1055 ml Labs Test 02/12/19 03:30 02/13/19 04:00 02/14/19 04:30 White Blood Count 7.7 K/UL (4.8-10.8) 7.1 K/UL (4.8-10.8) 9.4 K/UL (4.8-10.8) Red Blood Count 3.34 M/UL (4.70-6.10) 3.51 M/UL (4.70-6.10) 3.21 M/UL (4.70-6.10) Hemoglobin 10.2 G/DL (14.2-18.0) 10.4 G/DL (14.2-18.0) 9.8 G/DL (14.2-18.0) Hematocrit 30.6 % (42.0-52.0) 31.8 % (42.0-52.0) 28.9 % (42.0-52.0) Mean Corpuscular Volume 92 FL (80-99) 91 FL (80-99) 90 FL (80-99) Mean Corpuscular Hemoglobin 30.5 PG (27.0-31.0) 29.8 PG (27.0-31.0) 30.5 PG (27.0-31.0) Mean Corpuscular Hemoglobin Concent 33.3 G/DL (32.0-36.0) 32.9 G/DL (32.0-36.0) 33.8 G/DL (32.0-36.0) Red Cell Distribution Width 14.4 % (11.6-14.8) 13.8 % (11.6-14.8) 14.0 % (11.6-14.8) Platelet Count 46 K/UL (150-450) 46 K/UL (150-450) 77 K/UL (150-450) Mean Platelet Volume 6.5 FL (6.5-10.1) 8.0 FL (6.5-10.1) 7.1 FL (6.5-10.1) Neutrophils (%) (Auto) % (45.0-75.0) % (45.0-75.0) % (45.0-75.0) Lymphocytes (%) (Auto) % (20.0-45.0) % (20.0-45.0) % (20.0-45.0) Monocytes (%) (Auto) % (1.0-10.0) % (1.0-10.0) % (1.0-10.0) Eosinophils (%) (Auto) % (0.0-3.0) % (0.0-3.0) % (0.0-3.0) Basophils (%) (Auto) % (0.0-2.0) % (0.0-2.0) % (0.0-2.0) Differential Total Cells Counted 100 100 100 Neutrophils % (Manual) 83 % (45-75) 75 % (45-75) 79 % (45-75) Lymphocytes % (Manual) 13 % (20-45) 23 % (20-45) 13 % (20-45) Monocytes % (Manual) 4 % (1-10) 2 % (1-10) 8 % (1-10) Eosinophils % (Manual) 0 % (0-3) 0 % (0-3) 0 % (0-3) Basophils % (Manual) 0 % (0-2) 0 % (0-2) 0 % (0-2) Band Neutrophils 0 % (0-8) 0 % (0-8) 0 % (0-8) Platelet Estimate Decreased Decreased Decreased Platelet Morphology Normal Normal Normal Anisocytosis 1+ 1+ Sodium Level 142 MMOL/L (136-145) 140 MMOL/L (136-145) 142 MMOL/L (136-145) Potassium Level 3.7 MMOL/L (3.5-5.1) 3.1 MMOL/L (3.5-5.1) 2.8 MMOL/L (3.5-5.1) Chloride Level 106 MMOL/L (98-107) 104 MMOL/L (98-107) 105 MMOL/L (98-107) Carbon Dioxide Level 34 MMOL/L (21-32) 34 MMOL/L (21-32) 35 MMOL/L (21-32) Anion Gap 3 mmol/L (5-15) 2 mmol/L (5-15) 2 mmol/L (5-15) Blood Urea Nitrogen 11 mg/dL (7-18) 10 mg/dL (7-18) 10 mg/dL (7-18) Creatinine 1.0 MG/DL (0.55-1.30) 0.9 MG/DL (0.55-1.30) 0.9 MG/DL (0.55-1.30) Estimat Glomerular Filtration Rate > 60 mL/min (>60) > 60 mL/min (>60) > 60 mL/min (>60) Glucose Level 132 MG/DL (74-106) 135 MG/DL (74-106) 134 MG/DL (74-106) Calcium Level 7.5 MG/DL (8.5-10.1) 7.3 MG/DL (8.5-10.1) 7.1 MG/DL (8.5-10.1) Phosphorus Level 2.1 MG/DL (2.5-4.9) 3.0 MG/DL (2.5-4.9) 2.4 MG/DL (2.5-4.9) Magnesium Level 1.6 MG/DL (1.8-2.4) 2.1 MG/DL (1.8-2.4) 1.8 MG/DL (1.8-2.4) Total Bilirubin 0.7 MG/DL (0.2-1.0) 0.7 MG/DL (0.2-1.0) 0.6 MG/DL (0.2-1.0) Aspartate Amino Transf (AST/SGOT) 41 U/L (15-37) 38 U/L (15-37) 33 U/L (15-37) Alanine Aminotransferase (ALT/SGPT) 60 U/L (12-78) 57 U/L (12-78) 51 U/L (12-78) Alkaline Phosphatase 103 U/L (46-116) 105 U/L (46-116) 105 U/L (46-116) C-Reactive Protein, Quantitative 2.1 mg/dL (0.00-0.90) Pro-B-Type Natriuretic Peptide 46227 pg/mL (0-125) Total Protein 5.3 G/DL (6.4-8.2) 5.4 G/DL (6.4-8.2) 5.2 G/DL (6.4-8.2) Albumin 2.0 G/DL (3.4-5.0) 2.0 G/DL (3.4-5.0) 2.0 G/DL (3.4-5.0) Globulin 3.3 g/dL 3.4 g/dL 3.2 g/dL Albumin/Globulin Ratio 0.6 (1.0-2.7) 0.6 (1.0-2.7) 0.6 (1.0-2.7) Red Blood Cell Morphology Normal Prothrombin Time 12.4 SEC (9.30-11.50) Prothromb Time International Ratio 1.2 (0.9-1.1) Activated Partial Thromboplast Time 26 SEC (23-33) Height (Feet): 5 Height (Inches): 7.00 Weight (Pounds): 187 Objective Physical Exam Vital Signs noted Gen: agitated Neck: supple Respiratory: normal breath sounds + 2l nc Cardiovascular: normal rate Gastrointestinal: soft Rectal: deferred Neurologic: alert, responsive Med Izquierdo MD Feb 14, 2019 13:31
--- NOTE | 2019-02-14 15:15 | Progress Note ---
DATE: 02/14/2019 SUBJECTIVE: The patient is a 68-year-old male patient with sepsis and dehydration. He has some confusion, some disorganized thought process. He has got mood lability, no logical plan for his own self-care, feelings of helplessness, hopelessness, low energy, poor appetite, loss of interest in activity that is why he does require inpatient treatment at this time. He is extremely mood labile, still very confused, he is in ICU on telemetry now, . I am going to continue treatment with medications to stabilize his mood. DIAGNOSIS: Paranoid schizophrenia with acute exacerbation. PLAN: Continue titrating up on his medications to stabilize his mood. Provide him with 20 minutes of behavioral management. Chart reviewed. Discussed with staff. Seen and assessed at bedside at telemetry unit. Stacie Paige M.D. DR: Laron JOB#: [id number] CC:
[2019-02-14 16:00] VITALS: BP 126/88
--- NOTE | 2019-02-14 19:10 | NUR ---
NURSE NOTES: Received report from EUGENIA Espinosa. Patient is asleep, arousable to name, lying in semi ramirez's; resting comfortably. A/Ox1. Denies pain at this time. No signs of acute distress noted. Checked JONATHAN PICC line patent and flushed with ongoing IV fluid D5 1/2NS + KCl 40mEq @ 50mls/hr. No erythema, bleeding or infiltration noted. With mcmahon catheter draining well to gravity. On P200 mattress for wound management. Bed at lowest position, brakes on, [email or web address]. Call light within reach. Will continue to monitor.
--- NOTE | 2019-02-14 19:10 | NUR ---
HAND-OFF: Report given to EUGENIA Herrera.
[2019-02-14] MEDS: Dyna-Hex 2% Top Sol 2oz TOPIC SCH (20:18)
[2019-02-14 22:00] VITALS: BP 138/77
[2019-02-15] VITALS (8 sets, daily range): BP systolic 118–143; BP diastolic 57–81
[2019-02-15] MEDS: NovoLOG Insulin Flexpen SUBQ SCH ×4 (01:10→17:34)
--- NOTE | 2019-02-15 02:11 | NUR ---
NURSE NOTES: Resting throughout the night. No significant change of condition noted. Will continue to monitor.
[2019-02-15] MEDS: D5 1/2NS w/KCl 40meq 1000ml 1,000 ML IV SCH (05:49)
--- NOTE | 2019-02-15 06:12 | Hematology/Onc Progress Note ---
Assessment/Plan Assessment/Plan Assessment and Recs: # Dvt of the lower left superficial femoral vein with low platelets id contraindicated for ATC therapy --> ordered ivc filter, as per pulm--> at this time, contraindicated for anticoagulants --> no further heparin given low counts --> lack of consent, this is an emergency procedure --> pending bioethics eval # Thrombocytopenia - potential causes multifactorial, evaluate liver and viral etiologies to begin, us abd shows Coarsened hepatic echogenicity, may indicate hepatocellular disease, INr also high, also may be related to sepsis, recovery may have HEP C --> Hep panel pending and HIV negative --> US abd does show some coarsened liver, query cirrhosis, Inr also high --> Peripheral smear ordered to evaluate for blasts /schistocytes --> abx and other meds have been reviewed --> ok for ppx if plt >50k w/ either heparin or lovenox --> Transfuse if Plt < 20k and fever, or if Plt < 10k without fever --> plt trend 74-->70->59k-->46k-->77k --> platelets to be given before procedure, this is an emergency procedure 02/13 # Anemia of chronic disease, borderline --> hgb trend 11-->10.7-->10.4-->9.8 --> panel has been reviewed --> no bleeding noted # Dysphagia, necessitating ng and peg --> ng unsuccessful --> as per gi, pending peg with consent # Septic shock with multiple infection --> on abx per id # Resp failure s/p intubation --> extubated 02/02 --> on nc # COPD # PVD # Schizophrenia # Cardiomyopathy # Dvt ppx scds, needs ivcf FROILAN Rn and appreciate consultation. Subjective Constitutional: Denies: no symptoms, chills, fever, malaise, weakness, other HEENT: Denies: no symptoms, eye pain, blurred vision, tearing, double vision, ear pain, ear discharge, nose pain, nose congestion, throat pain, throat swelling, mouth pain, mouth swelling, other Cardiovascular: Denies: no symptoms, chest pain, edema, irregular heart rate, lightheadedness, palpitations, syncope, other Respiratory: Denies: no symptoms, cough, shortness of breath, SOB with excertion, SOB at rest, sputum, wheezing, other Gastrointestinal/Abdominal: Denies: no symptoms, abdomen distended, abdominal pain, black stools, tarry stools, blood in stool, constipated, diarrhea, difficulty swallowing, nausea, poor appetite, poor fluid intake, rectal bleeding , vomiting, other Hematologic/Lymphatic: Denies: no symptoms, anemia, easy bleeding, easy bruising, adenopathy, other Allergies: Coded Allergies: No Known Allergies (Unverified , 01/24/19) Subjective 02/11: remains in the icu, labs noted, reviewed, no bleeding or chills, hep panel pend 02/12: no events noted, remains in icu, needs bioethics pending eval, plts pending 02/13: no major changes, on nc, no bleeding, labs plt 46k, to get 1 unit plts 02/14: transferred to [facility], afebrile, s/p plt tx, plt improved to 77k 02/15: no major changes, remains arousable, no bleeding, labs pend Objective Objective Current Medications Medications (Trade) Dose Ordered Sig/Ricardo Route PRN Reason Start Time Stop Time Status Last Admin Dose Admin Acetaminophen (Tylenol) 650 mg Q4H PRN ORAL T>100.5 02/13/19 16:00 02/23/19 19:59 Albuterol/ Ipratropium (Albuterol/ Ipratropium) 3 ml Q4H PRN HHN Shortness of Breath 02/13/19 17:00 02/18/19 16:59 Ascorbic Acid (Vitamin C) 250 mg TWICE A DAY ORAL 02/13/19 18:00 02/26/19 17:59 02/14/19 17:29 Chlorhexidine Gluconate (Roseanna-Hex 2%) 1 applic DAILY@2000 TOPIC 02/13/19 20:00 03/09/19 19:59 02/14/19 20:18 Dextrose (Dextrose 50%) 25 ml Q30M PRN IV Hypoglycemia 02/13/19 16:00 02/24/19 18:59 Dextrose (Dextrose 50%) 50 ml Q30M PRN IV Hypoglycemia 02/13/19 16:00 02/24/19 18:59 Dextrose/ Electrolytes 1,000 ml @ 50 mls/hr Q20H IV 02/14/19 09:30 03/16/19 09:29 02/15/19 05:49 Haloperidol Lactate (Haldol) 2 mg Q4H PRN IM Agitation 02/13/19 17:00 03/13/19 16:59 Hydrocortisone (Solu-CORTEF) 100 mg EVERY 12 HOURS IV 02/14/19 21:00 03/07/19 21:59 02/14/19 20:18 Insulin Aspart (NovoLOG) EVERY 6 HOURS SUBQ 02/13/19 18:00 02/25/19 00:00 02/15/19 01:10 Midodrine (Pro-Amatine) 10 mg THREE TIMES A DAY ORAL 02/13/19 18:00 03/01/19 12:59 Pantoprazole (Protonix) 40 mg DAILY ORAL 02/13/19 17:30 03/15/19 17:29 02/14/19 10:25 Polyethylene Glycol (Miralax) 17 gm DAILYPRN PRN ORAL Constipation 02/13/19 20:00 02/23/19 19:59 Quetiapine Fumarate (SEROqueL) 50 mg Q12HR ORAL 02/13/19 21:00 03/13/19 10:14 02/14/19 20:18 Last 24 Hour Vital Signs Date Time Temp Pulse Resp B/P (MAP) Pulse Ox O2 Delivery O2 Flow Rate FiO2 02/15/19 04:00 53 02/15/19 00:00 98.0 72 18 134/81 (98) 96 02/15/19 00:00 75 02/14/19 22:00 97.9 76 17 138/77 (97) 96 02/14/19 20:06 92 Nasal Cannula 2.0 28 02/14/19 20:05 72 18 95 Nasal Cannula 2.0 28 02/14/19 20:00 64 02/14/19 20:00 Nasal Cannula 1.0 02/14/19 16:03 51 02/14/19 16:00 98.0 69 19 126/88 (101) 98 02/14/19 12:00 97.2 63 20 139/71 (93) 97 02/14/19 11:45 58 02/14/19 08:17 Nasal Cannula 1.0 02/14/19 08:00 98.1 77 19 127/69 (88) 91 02/14/19 07:44 63 02/14/19 07:16 71 18 93 Room Air 21 02/14/19 07:16 93 Room Air 21 02/14/19 04:00 51 02/14/19 00:00 56 02/14/19 00:00 97.4 62 19 129/66 (87) 97 02/13/19 20:07 94 Nasal Cannula 2.0 28 02/13/19 20:00 97.7 68 19 123/60 (81) 96 02/13/19 20:00 62 02/13/19 20:00 Nasal Cannula 1.0 02/13/19 19:22 80 18 94 Nasal Cannula 2.0 28 02/13/19 16:08 59 02/13/19 16:00 97.5 59 18 144/67 (92) 96 02/13/19 15:00 53 15 117/45 (69) 98 02/13/19 14:00 57 19 109/61 (77) 98 02/13/19 13:00 63 19 146/51 (82) 98 02/13/19 12:00 97.3 55 17 122/51 (74) 99 02/13/19 12:00 64 02/13/19 12:00 Nasal Cannula 1.0 02/13/19 11:00 45 16 113/52 (72) 98 02/13/19 10:00 48 10 122/45 (70) 98 02/13/19 09:06 96 Nasal Cannula 2.0 28 02/13/19 09:00 52 16 126/56 (79) 96 02/13/19 08:00 50 02/13/19 08:00 Nasal Cannula 1.0 02/13/19 08:00 99.0 83 19 131/89 (103) 92 02/13/19 07:00 53 18 118/55 (76) 90 Intake and Output 02/14/19 02/15/19 19:00 07:00 Intake Total 520 ml 360 ml Output Total 800 ml 1700 ml Balance -280 ml -1340 ml Intake Oral 520 ml 360 ml Output Urine Total 800 ml 1700 ml # Voids 2 # Bowel Movements 2 1 Labs Test 02/13/19 04:00 02/14/19 04:30 White Blood Count 7.1 K/UL (4.8-10.8) 9.4 K/UL (4.8-10.8) Red Blood Count 3.51 M/UL (4.70-6.10) 3.21 M/UL (4.70-6.10) Hemoglobin 10.4 G/DL (14.2-18.0) 9.8 G/DL (14.2-18.0) Hematocrit 31.8 % (42.0-52.0) 28.9 % (42.0-52.0) Mean Corpuscular Volume 91 FL (80-99) 90 FL (80-99) Mean Corpuscular Hemoglobin 29.8 PG (27.0-31.0) 30.5 PG (27.0-31.0) Mean Corpuscular Hemoglobin Concent 32.9 G/DL (32.0-36.0) 33.8 G/DL (32.0-36.0) Red Cell Distribution Width 13.8 % (11.6-14.8) 14.0 % (11.6-14.8) Platelet Count 46 K/UL (150-450) 77 K/UL (150-450) Mean Platelet Volume 8.0 FL (6.5-10.1) 7.1 FL (6.5-10.1) Neutrophils (%) (Auto) % (45.0-75.0) % (45.0-75.0) Lymphocytes (%) (Auto) % (20.0-45.0) % (20.0-45.0) Monocytes (%) (Auto) % (1.0-10.0) % (1.0-10.0) Eosinophils (%) (Auto) % (0.0-3.0) % (0.0-3.0) Basophils (%) (Auto) % (0.0-2.0) % (0.0-2.0) Differential Total Cells Counted 100 100 Neutrophils % (Manual) 75 % (45-75) 79 % (45-75) Lymphocytes % (Manual) 23 % (20-45) 13 % (20-45) Monocytes % (Manual) 2 % (1-10) 8 % (1-10) Eosinophils % (Manual) 0 % (0-3) 0 % (0-3) Basophils % (Manual) 0 % (0-2) 0 % (0-2) Band Neutrophils 0 % (0-8) 0 % (0-8) Platelet Estimate Decreased Decreased Platelet Morphology Normal Normal Red Blood Cell Morphology Normal Prothrombin Time 12.4 SEC (9.30-11.50) Prothromb Time International Ratio 1.2 (0.9-1.1) Activated Partial Thromboplast Time 26 SEC (23-33) Sodium Level 140 MMOL/L (136-145) 142 MMOL/L (136-145) Potassium Level 3.1 MMOL/L (3.5-5.1) 2.8 MMOL/L (3.5-5.1) Chloride Level 104 MMOL/L (98-107) 105 MMOL/L (98-107) Carbon Dioxide Level 34 MMOL/L (21-32) 35 MMOL/L (21-32) Anion Gap 2 mmol/L (5-15) 2 mmol/L (5-15) Blood Urea Nitrogen 10 mg/dL (7-18) 10 mg/dL (7-18) Creatinine 0.9 MG/DL (0.55-1.30) 0.9 MG/DL (0.55-1.30) Estimat Glomerular Filtration Rate > 60 mL/min (>60) > 60 mL/min (>60) Glucose Level 135 MG/DL (74-106) 134 MG/DL (74-106) Calcium Level 7.3 MG/DL (8.5-10.1) 7.1 MG/DL (8.5-10.1) Phosphorus Level 3.0 MG/DL (2.5-4.9) 2.4 MG/DL (2.5-4.9) Magnesium Level 2.1 MG/DL (1.8-2.4) 1.8 MG/DL (1.8-2.4) Total Bilirubin 0.7 MG/DL (0.2-1.0) 0.6 MG/DL (0.2-1.0) Aspartate Amino Transf (AST/SGOT) 38 U/L (15-37) 33 U/L (15-37) Alanine Aminotransferase (ALT/SGPT) 57 U/L (12-78) 51 U/L (12-78) Alkaline Phosphatase 105 U/L (46-116) 105 U/L (46-116) Total Protein 5.4 G/DL (6.4-8.2) 5.2 G/DL (6.4-8.2) Albumin 2.0 G/DL (3.4-5.0) 2.0 G/DL (3.4-5.0) Globulin 3.4 g/dL 3.2 g/dL Albumin/Globulin Ratio 0.6 (1.0-2.7) 0.6 (1.0-2.7) Anisocytosis 1+ Height (Feet): 5 Height (Inches): 7.00 Weight (Pounds): 178 Objective Physical Exam Vital Signs noted Gen: agitated Neck: supple Respiratory: normal breath sounds + 2l nc Cardiovascular: normal rate Gastrointestinal: soft Rectal: deferred Neurologic: alert, responsive Med Izquierdo MD Feb 15, 2019 06:12
--- NOTE | 2019-02-15 07:00 | NUR ---
HAND-OFF: Report given to EUGENIA White. Plan of care endorsed.
--- NOTE | 2019-02-15 07:45 | Progress Note ---
DATE: 02/15/2019 SUBJECTIVE: This is a 68-year-old male patient. This patient is admitted because of and is currently in the telemetry unit. Seen and assessed at bedside. This patient is admitted to telemetry unit secondary to sepsis and dehydration, but this patient also has some psychomotor agitation, mood lability as well and he has some agitation, irritability as well. That is why, his attending physician has requested daily psychiatric consultation. MENTAL STATUS EXAMINATION: This is a 68-year-old male. Appearance is disheveled. Attitude, irritable and agitated. Affect, guarded and restricted. Intellect poor. Mood, depressed and anxious. Motor activity, psychomotor agitation. Attention span is poor. Orientation x1. Speech is nonsensical. Thought processes, disorganized and illogical. Insight and judgment is poor. DIAGNOSIS: Paranoid schizophrenia acute exacerbation. PLAN: For this patient, treat him with a medication regimen consisting of Seroquel 50 mg q.12 hours and he will continue to be followed by Psychiatry throughout hospital course day. Chart reviewed. Discussed with staff. The patient is seen and assessed in his room. 20 minutes of behavioral management provided. Stacie Paige M.D. DR: CELINE JOB#: [id number] CC:
[2019-02-15 08:47] LABS: HEMATOCRIT 30.3 % (42.0-52.0); HEMOGLOBIN 10.1 G/DL (14.2-18.0); MEAN CORPUSCULAR VOLUME 90 FL (80-99); PLATELET COUNT 76 K/UL (150-450); RED BLOOD COUNT 3.36 M/UL (4.70-6.10); RED CELL DISTRIBUTION WIDTH 13.7 % (11.6-14.8); WHITE BLOOD COUNT 8.7 K/UL (4.8-10.8)
[2019-02-15 09:10] LABS: ANION GAP 2 mmol/L (5-15); BLOOD UREA NITROGEN 10 mg/dL (7-18); CALCIUM 7.3 MG/DL (8.5-10.1); CARBON DIOXIDE 35 MMOL/L (21-32); CHLORIDE 105 MMOL/L (98-107); CREATININE 0.9 MG/DL (0.55-1.30); PHOSPHORUS 2.2 MG/DL (2.5-4.9); POTASSIUM 3.1 MMOL/L (3.5-5.1); SODIUM 142 MMOL/L (136-145)
--- NOTE | 2019-02-15 09:22 | General Progress Note ---
Assessment/Plan Problem List: (1) Renal failure (ARF), acute on chronic ICD Codes: N17.9 - Acute kidney failure, unspecified; N18.9 - Chronic kidney disease, unspecified SNOMED: 862907578 (2) Sepsis ICD Codes: A41.9 - Sepsis, unspecified organism SNOMED: 45286564 Qualifiers: Qualified Codes: A41.9 - Sepsis, unspecified organism (3) Malignant neoplasm of right kidney ICD Codes: C64.1 - Malignant neoplasm of right kidney, except renal pelvis SNOMED: 092495191 (4) Acute respiratory failure ICD Codes: J96.00 - Acute respiratory failure, unspecified whether with hypoxia or hypercapnia SNOMED: 92688029 (5) PVD (peripheral vascular disease) ICD Codes: I73.9 - Peripheral vascular disease, unspecified SNOMED: 811704585 Status: stable, progressing, unchanged Assessment/Plan: vent abx wound care cbc bmp am aru eval Subjective Constitutional: Reports: weakness Allergies: Coded Allergies: No Known Allergies (Unverified , 01/24/19) All Systems: reviewed and negative except above Subjective calm in bed Objective Last 24 Hour Vital Signs Date Time Temp Pulse Resp B/P (MAP) Pulse Ox O2 Delivery O2 Flow Rate FiO2 02/15/19 08:29 Nasal Cannula 1.0 02/15/19 08:22 96 Nasal Cannula 2.0 28 02/15/19 08:22 75 18 96 Nasal Cannula 2.0 28 02/15/19 04:00 53 02/15/19 00:00 98.0 72 18 134/81 (98) 96 02/15/19 00:00 75 02/14/19 22:00 97.9 76 17 138/77 (97) 96 02/14/19 20:06 92 Nasal Cannula 2.0 28 02/14/19 20:05 72 18 95 Nasal Cannula 2.0 28 02/14/19 20:00 64 02/14/19 20:00 Nasal Cannula 1.0 02/14/19 16:03 51 02/14/19 16:00 98.0 69 19 126/88 (101) 98 02/14/19 12:00 97.2 63 20 139/71 (93) 97 02/14/19 11:45 58 Intake and Output 02/14/19 02/15/19 18:59 06:59 Intake Total 520 ml 929.4 ml Output Total 800 ml 1700 ml Balance -280 ml -770.6 ml Intake Oral 520 ml 360 ml IV Total 569.4 ml Output Urine Total 800 ml 1700 ml # Voids 2 # Bowel Movements 2 1 Laboratory Tests 02/15/19 08:30: White Blood Count 8.7, Red Blood Count 3.36L, Hemoglobin 10.1L, Hematocrit 30.3L , Mean Corpuscular Volume 90, Mean Corpuscular Hemoglobin 30.1, Mean Corpuscular Hemoglobin Concent 33.3, Red Cell Distribution Width 13.7, Platelet Count 76L, Mean Platelet Volume 6.2L, Neutrophils (%) (Auto) , Lymphocytes (%) ( Auto) , Monocytes (%) (Auto) , Eosinophils (%) (Auto) , Basophils (%) (Auto) , Neutrophils % (Manual) [Pending], Lymphocytes % (Manual) [Pending], Platelet Estimate [Pending], Platelet Morphology [Pending], Sodium Level 142, Potassium Level 3.1L, Chloride Level 105, Carbon Dioxide Level 35H, Anion Gap 2L, Blood Urea Nitrogen 10, Creatinine 0.9, Estimat Glomerular Filtration Rate > 60, Glucose Level 118H, Calcium Level 7.3L, Phosphorus Level 2.2L Height (Feet): 5 Height (Inches): 7.00 Weight (Pounds): 178 General Appearance: lethargic EENT: normal ENT inspection Neck: normal alignment Cardiovascular: normal peripheral pulses, normal rate, regular rhythm Respiratory/Chest: chest wall non-tender, lungs clear, normal breath sounds Abdomen: normal bowel sounds, non tender, soft Extremities: normal inspection Edema: no edema noted Arm (L), no edema noted Arm (R), no edema noted Leg (L), no edema noted Leg (R), no edema noted Pedal (L), no edema noted Pedal (R), no edema noted Generalized Neurologic: motor weakness Skin: normal pigmentation, warm/dry Corey Short DO Feb 15, 2019 09:22
--- NOTE | 2019-02-15 09:27 | NUR ---
RADIOLOGY: CXR COMPLETED 0910HRS. NF
[2019-02-15] MEDS: Midodrine 10mg tab ORAL SCH ×3 (09:44→17:37)
[2019-02-15] MEDS: Hydrocortisone 100mg Inj IV SCH (09:45)
[2019-02-15] MEDS: Ascorbic Acid 500mg tab ORAL SCH ×2 (09:45→17:38)
--- NOTE | 2019-02-15 10:34 | General Progress Note ---
Assessment/Plan Problem List: (1) DM (diabetes mellitus) ICD Codes: E11.9 - Type 2 diabetes mellitus without complications SNOMED: 21618825 (2) cardiomyopathy with EF of 35% (3) Encounter for PEG (percutaneous endoscopic gastrostomy) ICD Codes: Z43.1 - Encounter for attention to gastrostomy SNOMED: 553298158, 690225711 (4) Dysphagia ICD Codes: R13.10 - Dysphagia, unspecified SNOMED: 51892274, 395556116 (5) Bradyarrhythmia ICD Codes: I49.8 - Other specified cardiac arrhythmias SNOMED: 684078220 (6) Systolic heart failure ICD Codes: I50.20 - Unspecified systolic (congestive) heart failure SNOMED: 210165698 (7) Schizophrenia ICD Codes: F20.9 - Schizophrenia, unspecified SNOMED: 87863844 (8) COPD (chronic obstructive pulmonary disease) ICD Codes: J44.9 - Chronic obstructive pulmonary disease, unspecified SNOMED: 01569027 Qualifiers: Qualified Codes: J44.9 - Chronic obstructive pulmonary disease, unspecified Status: stable, progressing, unchanged Assessment/Plan: failed swallow eval needs peg Bioethic consult recommended against peg if dementia is severe neuro eval appreciated>>> limited evaluation multiple attempt to place NGT failed patient does not have severe dementia and has psych issues D/W primary team and speech therapiest patient needs PEG to survive will proceed with MD consent Subjective ROS Limited/Unobtainable: No Allergies: Coded Allergies: No Known Allergies (Unverified , 01/24/19) Objective Last 24 Hour Vital Signs Date Time Temp Pulse Resp B/P (MAP) Pulse Ox O2 Delivery O2 Flow Rate FiO2 02/15/19 08:29 Nasal Cannula 1.0 02/15/19 08:22 96 Nasal Cannula 2.0 28 02/15/19 08:22 75 18 96 Nasal Cannula 2.0 28 02/15/19 04:00 53 02/15/19 00:00 98.0 72 18 134/81 (98) 96 02/15/19 00:00 75 02/14/19 22:00 97.9 76 17 138/77 (97) 96 02/14/19 20:06 92 Nasal Cannula 2.0 28 02/14/19 20:05 72 18 95 Nasal Cannula 2.0 28 02/14/19 20:00 64 02/14/19 20:00 Nasal Cannula 1.0 02/14/19 16:03 51 02/14/19 16:00 98.0 69 19 126/88 (101) 98 02/14/19 12:00 97.2 63 20 139/71 (93) 97 02/14/19 11:45 58 Intake and Output 02/14/19 02/15/19 18:59 06:59 Intake Total 520 ml 929.4 ml Output Total 800 ml 1700 ml Balance -280 ml -770.6 ml Intake Oral 520 ml 360 ml IV Total 569.4 ml Output Urine Total 800 ml 1700 ml # Voids 2 # Bowel Movements 2 1 Laboratory Tests 02/15/19 08:30: White Blood Count 8.7, Red Blood Count 3.36L, Hemoglobin 10.1L, Hematocrit 30.3L , Mean Corpuscular Volume 90, Mean Corpuscular Hemoglobin 30.1, Mean Corpuscular Hemoglobin Concent 33.3, Red Cell Distribution Width 13.7, Platelet Count 76L, Mean Platelet Volume 6.2L, Neutrophils (%) (Auto) , Lymphocytes (%) ( Auto) , Monocytes (%) (Auto) , Eosinophils (%) (Auto) , Basophils (%) (Auto) , Differential Total Cells Counted 100, Neutrophils % (Manual) 60, Lymphocytes % ( Manual) 33, Monocytes % (Manual) 7, Eosinophils % (Manual) 0, Basophils % ( Manual) 0, Band Neutrophils 0, Platelet Estimate DecreasedL, Platelet Morphology Normal, Hypochromasia 1+, Spherocytes 1+, Sodium Level 142, Potassium Level 3.1L, Chloride Level 105, Carbon Dioxide Level 35H, Anion Gap 2L , Blood Urea Nitrogen 10, Creatinine 0.9, Estimat Glomerular Filtration Rate > 60, Glucose Level 118H, Calcium Level 7.3L, Phosphorus Level 2.2L Height (Feet): 5 Height (Inches): 7.00 Weight (Pounds): 178 General Appearance: lethargic EENT: normal ENT inspection Neck: supple Cardiovascular: normal rate Respiratory/Chest: decreased breath sounds Abdomen: normal bowel sounds, non tender, soft Extremities: non-tender Leonel Valderrama MD Feb 15, 2019 10:34
--- NOTE | 2019-02-15 10:35 | Anethesia Preoperative Eval ---
Anesthesia Pre-op PMH/ROS General Date of Evaluation: Feb 15, 2019 Time of Evaluation: 10:34 Anesthesiologist: bar ASA Score: ASA 4 Mallampati Score Class I : Soft palate, uvula, fauces, pillars visible Class II: Soft palate, uvula, fauces visible Class III: Soft palate, base of uvula visible Class IV: Only hard plate visible Mallampati Classification: Class II Surgeon: elsy Diagnosis: dysphagia Surgical Procedure: peg Anesthesia History: none Social History: smoking - nonsmoker Family History: no anesthesia problems Allergies: Coded Allergies: No Known Allergies (Unverified , 01/24/19) Medications: see eMAR Patient NPO?: Yes Past Medical History Cardiovascular: Reports: HTN, arrhythmia - bradycardia, other - cardiomyopathy , peripheral vascular disease Pulmonary: Reports: COPD Gastrointestinal/Genitourinary: Reports: ESRD - on hemodialysis, other - renal cancer, dysphagia Neurologic/Psychiatric: Reports: other - schizophrenia Endocrine: Reports: DM Hematology/Immune: Reports: anemia, DVT, other - septic shock Musculoskeletal/Integumentary: Reports: OA Anesthesia Pre-op Phys. Exam Physician Exam Last Vital Signs Date Time Temp Pulse Resp B/P (MAP) Pulse Ox O2 Delivery O2 Flow Rate FiO2 02/15/19 08:29 Nasal Cannula 1.0 02/15/19 08:22 96 28 02/15/19 08:22 75 18 02/15/19 00:00 98.0 134/81 (98) Constitutional: NAD Neurologic: CN 2-12 intact Cardiovascular: RRR Respiratory: CTA Gastrointestinal: S/NT/ND Airway Exam Mallampati Score: Class II MO: limited Neck: flexible TMD: 2fb ROM: limited Teeth: missing Anesthesia Pre-op A/P Labs Hematology Test 02/15/19 08:30 White Blood Count 8.7 K/UL (4.8-10.8) Red Blood Count 3.36 M/UL (4.70-6.10) L Hemoglobin 10.1 G/DL (14.2-18.0) L Hematocrit 30.3 % (42.0-52.0) L Mean Corpuscular Volume 90 FL (80-99) Mean Corpuscular Hemoglobin 30.1 PG (27.0-31.0) Mean Corpuscular Hemoglobin Concent 33.3 G/DL (32.0-36.0) Red Cell Distribution Width 13.7 % (11.6-14.8) Platelet Count 76 K/UL (150-450) L Mean Platelet Volume 6.2 FL (6.5-10.1) L Neutrophils (%) (Auto) % (45.0-75.0) Lymphocytes (%) (Auto) % (20.0-45.0) Monocytes (%) (Auto) % (1.0-10.0) Eosinophils (%) (Auto) % (0.0-3.0) Basophils (%) (Auto) % (0.0-2.0) Differential Total Cells Counted 100 Neutrophils % (Manual) 60 % (45-75) Lymphocytes % (Manual) 33 % (20-45) Monocytes % (Manual) 7 % (1-10) Eosinophils % (Manual) 0 % (0-3) Basophils % (Manual) 0 % (0-2) Band Neutrophils 0 % (0-8) Platelet Estimate Decreased L Platelet Morphology Normal Hypochromasia 1+ Spherocytes 1+ Chemistry Test 02/15/19 08:30 Sodium Level 142 MMOL/L (136-145) Potassium Level 3.1 MMOL/L (3.5-5.1) L Chloride Level 105 MMOL/L (98-107) Carbon Dioxide Level 35 MMOL/L (21-32) H Anion Gap 2 mmol/L (5-15) L Blood Urea Nitrogen 10 mg/dL (7-18) Creatinine 0.9 MG/DL (0.55-1.30) Estimat Glomerular Filtration Rate > 60 mL/min (>60) Glucose Level 118 MG/DL (74-106) H Calcium Level 7.3 MG/DL (8.5-10.1) L Phosphorus Level 2.2 MG/DL (2.5-4.9) L Risk Assessment & Plan Assessment: asa4 Plan: mac Status Change Before Surgery: No Pre-Antibiotics Drug: cefoxitin 1 gram Given Within 1 Hr of Incision: Yes Time Given: 11:00 Martha Carrasco MD Feb 15, 2019 10:35
[2019-02-15] MEDS ORDERED: cefOXitin 1gm Inj ONE (10:49)
--- NOTE | 2019-02-15 10:51 | NUR ---
[facility] Lab. Transporter here to sheepskin pickler patient. Elfego Rn made aware, no consent, Pt. no known Family, no capacity to give consent. Per Elfego, Dr. Valderrama is aware. and he will proceed with planned G-Tube placement.
[2019-02-15] MEDS ORDERED: NS 500ML IVPB ONE (10:56)
[2019-02-15] MEDS ORDERED: Propofol 200mg/20ml IV ONE (11:00)
[2019-02-15] MEDS ORDERED: Lidocaine 1% MPF 10mg/ml 5ml ONE (11:00)
[2019-02-15] MEDS ORDERED: Potassium Phosphate 30 MM in NS 275 ML IV SCH (11:00)
[2019-02-15] MEDS ORDERED: Atropine Inj 1mg/10ml Syr IV PRN (11:30)
[2019-02-15] MEDS ORDERED: DiphenhydrAMINE 50mg/ml Inj IVP PRN (11:30)
[2019-02-15] MEDS ORDERED: Midazolam 2mg/2ml Inj IVP PRN (11:30)
[2019-02-15] MEDS ORDERED: fentaNYL 100 mcg/2 mL IV PRN (11:30)
--- NOTE | 2019-02-15 11:54 | Immediate Post-Op Evaluation ---
Immediate Post-Op Evalulation Immediate Post-Op Evalulation Procedure: egd/peg Date of Evaluation: Feb 15, 2019 Time of Evaluation: 11:37 IV Fluids: 125ml 0.9ns Blood Products: none Estimated Blood Loss: negligible Blood Pressure Systolic: 123 Blood Pressure Diastolic: 57 Pulse Rate: 77 Respiratory Rate: 18 O2 Sat by Pulse Oximetry: 96 Temperature (Fahrenheit): 97.3 Pain Score (1-10): 0 Nausea: No Vomiting: No Complications none Patient Status: awake, reacts, patent Hydration Status: adequate Drug: cefoxitin 1 gram Given Within 1 Hr of Incision: Yes Time Given: 11:00 Martha Carrasco MD Feb 15, 2019 11:54
--- NOTE | 2019-02-15 11:56 | 48 Hour Post Anesthesia Eval ---
Post Anesthesia Evaluation Procedure: egd/peg Date of Evaluation: Feb 15, 2019 Time of Evaluation: 11:39 Blood Pressure Systolic: 130 0: 66 Pulse Rate: 67 Respiratory Rate: 18 Temperature (Fahrenheit): 97.3 O2 Sat by Pulse Oximetry: 96 Airway: patent Nausea: No Vomiting: No Pain Intensity: 0 Hydration Status: adequate Cardiopulmonary Status: stable Mental Status/LOC: patient returned to baseline Post-Anesthesia Complications: none Follow-up care needed: N/A Martha Carrasco MD Feb 15, 2019 11:56
--- NOTE | 2019-02-15 12:02 | Infectious Diseases Prog Note ---
Assessment/Plan Assessment/Plan 68yo gentleman with PMH below presents with fever(100.1 is highest recorded in transfer packet) and worsened congestion from SNF. In the ED, pt was placed on oxygen then BiPAP but ultimately intubated. ID consulted for antimicrobial recommendation. Fever (Tmax 100.1) at [facility], SP Leukocytosis, hydrocortisone 01/25-02/02;' SP Lactic acidosis, SP Shock, was on levophed, titrated off, but now on dopamine MRSA PNA COPD? CHF? thick secretions per nurse flu swab negative 01/24 CXR: Extensive opacities within upper lobes demonstrated. In addition there is generalized interstitial densities throughout both lung craig. 01/25 CXR: Bilateral infiltrates appear fairly extensive but unchanged. TTE with EF 30-35% 01/25 sputum cx: MRSA 01/25 urine legionella ag: P 01/27 CXR: Extensive infiltrates bilaterally. Some degree of a superimposed interstitial edema has improved since the last exam. Endotracheal tube and NG tube remain in satisfactory in position. 01/28 CXR: Extensive bilateral infiltrates are again demonstrated without change. Tubes and lines are stable. 01/28 sputum cx: MRSA 01/30 CXR: 1. Overall similar patchy opacities in the lungs, most prominently in the right upper lung and right mid and lower lung. Probable small bilateral pleural effusions. 2. Endotracheal tube terminates in the region of the lower thoracic aorta above the cristina. Enteric tube courses past the diaphragm and out of the [id number], but the sidehole is seen near the GE junction. 02/02 CXR: Interim removal of previously demonstrated nasogastric tube and endotracheal tube. Right arm PICC remains. Bilateral fairly extensive interstitial opacities persist, unchanged. There is a small left pleural effusion again demonstrated 02/04 CXR: Patchy interstitial prominence demonstrated bilaterally. Heart size is stable. 02/08 CXR: No significant change compared to the prior exam Possible UTI? new mcmahon placed in ED 01/25 UA 15-20 WBC 01/25 Ucx: NG Renal US: Nonobstructive stones in the left kidney demonstrated. Bilateral renal cysts. Limited evaluation due to body habitus. 01/25 BCx: ngtd 01/31 bcx: ngtd Failed Swallow evaluation 02/04 at risk for aspiration pneumonitis and pneumonia Thrombocytopenia No diarrhea HIV test negative MRSA screen positive RLE skin graft b/l LE heel pressure ulcers and sacral ulcer Tobacco abuse COPD HTN Kidney cancer OA CKD Anemia Schizophrenia PVD CHF Plan: Continue to monitor off abx as he is stable 02/11 SP Doxycycline #11 02/01 SP Azithromycin #5/5 for atypicals 01/31 Ertapenem #8 01/31 DC Amikacin and vancomycin #6 SP cefepime #1 SP flagyl #1 SP vancomycin #1 aspiration precaution, elevate HOB, oral care, frequent suction pulmonary toilet, chest PT DVT PPX discussed with RN Thank you for this consult. [facility] will continue to follow the patient with you. Subjective Allergies: Coded Allergies: No Known Allergies (Unverified , 01/24/19) Subjective afebrile no leukocytosis at 2L NC Objective Vital Signs Last 24 Hour Vital Signs Date Time Temp Pulse Resp B/P (MAP) Pulse Ox O2 Delivery O2 Flow Rate FiO2 02/15/19 11:56 67 18 96 02/15/19 11:54 77 18 96 02/15/19 11:45 60 16 143/66 96 Nasal Cannula 2 02/15/19 11:35 67 18 130/66 96 Nasal Cannula 2 02/15/19 11:30 62 18 127/65 96 Nasal Cannula 2 02/15/19 11:25 97.3 60 15 123/57 96 Nasal Cannula 2 02/15/19 08:29 Nasal Cannula 1.0 02/15/19 08:22 96 Nasal Cannula 2.0 28 02/15/19 08:22 75 18 96 Nasal Cannula 2.0 28 02/15/19 04:00 53 02/15/19 00:00 98.0 72 18 134/81 (98) 96 02/15/19 00:00 75 02/14/19 22:00 97.9 76 17 138/77 (97) 96 02/14/19 20:06 92 Nasal Cannula 2.0 28 02/14/19 20:05 72 18 95 Nasal Cannula 2.0 28 02/14/19 20:00 64 02/14/19 20:00 Nasal Cannula 1.0 02/14/19 16:03 51 02/14/19 16:00 98.0 69 19 126/88 (101) 98 Height (Feet): 5 Height (Inches): 7.00 Weight (Pounds): 178 Objective Gen: NAD HEENT: anicteric sclera. CV: RRR. Resp: coarse. equal chest rise. Abd: soft. normoactive Bs+ Neuro: awake. appropriate Skin: RLE skin graft Laboratory Tests Test 02/15/19 08:30 White Blood Count 8.7 K/UL (4.8-10.8) Red Blood Count 3.36 M/UL (4.70-6.10) L Hemoglobin 10.1 G/DL (14.2-18.0) L Hematocrit 30.3 % (42.0-52.0) L Mean Corpuscular Volume 90 FL (80-99) Mean Corpuscular Hemoglobin 30.1 PG (27.0-31.0) Mean Corpuscular Hemoglobin Concent 33.3 G/DL (32.0-36.0) Red Cell Distribution Width 13.7 % (11.6-14.8) Platelet Count 76 K/UL (150-450) L Mean Platelet Volume 6.2 FL (6.5-10.1) L Neutrophils (%) (Auto) % (45.0-75.0) Lymphocytes (%) (Auto) % (20.0-45.0) Monocytes (%) (Auto) % (1.0-10.0) Eosinophils (%) (Auto) % (0.0-3.0) Basophils (%) (Auto) % (0.0-2.0) Differential Total Cells Counted 100 Neutrophils % (Manual) 60 % (45-75) Lymphocytes % (Manual) 33 % (20-45) Monocytes % (Manual) 7 % (1-10) Eosinophils % (Manual) 0 % (0-3) Basophils % (Manual) 0 % (0-2) Band Neutrophils 0 % (0-8) Platelet Estimate Decreased L Platelet Morphology Normal Hypochromasia 1+ Spherocytes 1+ Sodium Level 142 MMOL/L (136-145) Potassium Level 3.1 MMOL/L (3.5-5.1) L Chloride Level 105 MMOL/L (98-107) Carbon Dioxide Level 35 MMOL/L (21-32) H Anion Gap 2 mmol/L (5-15) L Blood Urea Nitrogen 10 mg/dL (7-18) Creatinine 0.9 MG/DL (0.55-1.30) Estimat Glomerular Filtration Rate > 60 mL/min (>60) Glucose Level 118 MG/DL (74-106) H Calcium Level 7.3 MG/DL (8.5-10.1) L Phosphorus Level 2.2 MG/DL (2.5-4.9) L Current Medications Medications (Trade) Dose Ordered Sig/Ricardo Route PRN Reason Start Time Stop Time Status Last Admin Dose Admin Acetaminophen (Tylenol) 650 mg Q4H PRN ORAL T>100.5 02/13/19 16:00 02/23/19 19:59 Acetaminophen (Tylenol) 650 mg Q4H PRN ORAL Mild Pain (Pain Scale 1-3) 02/15/19 11:30 02/15/19 18:00 Al Hydroxide/Mg Hydroxide (Mylanta) 15 ml Q1H PRN ORAL gi upset 02/15/19 11:30 02/15/19 18:00 Albuterol/ Ipratropium (Albuterol/ Ipratropium) 3 ml Q4H PRN HHN Shortness of Breath 02/13/19 17:00 02/18/19 16:59 Ascorbic Acid (Vitamin C) 250 mg TWICE A DAY ORAL 02/13/19 18:00 02/26/19 17:59 02/15/19 09:45 Atropine Sulfate (Atropine) 0.5 mg Q5M PRN IV bpm less than 45 02/15/19 11:30 02/15/19 18:00 Chlorhexidine Gluconate (Roseanna-Hex 2%) 1 applic DAILY@2000 TOPIC 02/13/19 20:00 03/09/19 19:59 02/14/19 20:18 Dextrose (Dextrose 50%) 25 ml Q30M PRN IV Hypoglycemia 02/13/19 16:00 02/24/19 18:59 Dextrose (Dextrose 50%) 50 ml Q30M PRN IV Hypoglycemia 02/13/19 16:00 02/24/19 18:59 Dextrose/ Electrolytes 1,000 ml @ 50 mls/hr Q20H IV 02/14/19 09:30 03/16/19 09:29 02/15/19 05:49 Diphenhydramine HCl (Benadryl) 25 mg Q15M PRN IVP Itching 02/15/19 11:30 02/15/19 18:00 Fentanyl Citrate (Sublimaze 100 mcg/2 mL) 25 mcg Q10M PRN IV Moderate Pain (Pain Scale 4-6) 02/15/19 11:30 02/15/19 18:00 Haloperidol Lactate (Haldol) 2 mg Q4H PRN IM Agitation 02/13/19 17:00 03/13/19 16:59 Hydralazine HCl (Apresoline) 5 mg Q30M PRN IV SBP>160 OR___/DBP>90 OR___ 02/15/19 11:30 02/15/19 18:00 Hydrocortisone (Solu-CORTEF) 100 mg EVERY 12 HOURS IV 02/14/19 21:00 03/07/19 21:59 02/15/19 09:45 Insulin Aspart (NovoLOG) EVERY 6 HOURS SUBQ 02/13/19 18:00 02/25/19 00:00 02/15/19 01:10 Midazolam HCl (Versed 2mg/2ml vial) 1 mg Q15M PRN IVP For Anxiety 02/15/19 11:30 02/15/19 18:00 Midodrine (Pro-Amatine) 10 mg THREE TIMES A DAY ORAL 02/13/19 18:00 03/01/19 12:59 02/15/19 09:44 Pantoprazole (Protonix) 40 mg DAILY ORAL 02/13/19 17:30 03/15/19 17:29 02/15/19 09:44 Polyethylene Glycol (Miralax) 17 gm DAILYPRN PRN ORAL Constipation 02/13/19 20:00 02/23/19 19:59 Potassium Phosphate 30 mm/ Sodium Chloride 285 ml @ 47.5 mls/hr ONCE IV 02/15/19 11:00 02/15/19 17:00 Quetiapine Fumarate (SEROqueL) 50 mg Q12HR ORAL 02/13/19 21:00 03/13/19 10:14 02/15/19 09:44 Sodium Chloride 1,000 ml @ 10 mls/hr Q24H IVLG 02/15/19 11:19 02/15/19 13:18 Lesli Michaels M.D. Feb 15, 2019 12:02
--- NOTE | 2019-02-15 12:32 | Pulmonology Progress Note ---
Assessment/Plan Problems: (1) Septic shock (2) COPD (chronic obstructive pulmonary disease) (3) Chronic kidney disease (4) Malignant neoplasm of right kidney (5) PVD (peripheral vascular disease) (6) Schizophrenia Assessment/Plan Gtube was reinserted today pt is slightly agitated respiratory treatment continue antipsychotic meds taper down steroids check electrolytes Ativan prn. Subjective ROS Limited/Unobtainable: No Constitutional: Reports: no symptoms HEENT: Repors: no symptoms Respiratory: Reports: no symptoms Allergies: Coded Allergies: No Known Allergies (Unverified , 01/24/19) Objective Last 24 Hour Vital Signs Date Time Temp Pulse Resp B/P (MAP) Pulse Ox O2 Delivery O2 Flow Rate FiO2 02/15/19 12:15 97.1 67 15 132/68 97 Nasal Cannula 2 02/15/19 12:00 58 12 132/69 94 Nasal Cannula 2 02/15/19 11:56 67 18 96 02/15/19 11:54 77 18 96 02/15/19 11:45 60 16 143/66 96 Nasal Cannula 2 02/15/19 11:35 67 18 130/66 96 Nasal Cannula 2 02/15/19 11:30 62 18 127/65 96 Nasal Cannula 2 02/15/19 11:25 97.3 60 15 123/57 96 Nasal Cannula 2 02/15/19 08:29 Nasal Cannula 1.0 02/15/19 08:22 96 Nasal Cannula 2.0 28 02/15/19 08:22 75 18 96 Nasal Cannula 2.0 28 02/15/19 04:00 53 02/15/19 00:00 98.0 72 18 134/81 (98) 96 02/15/19 00:00 75 02/14/19 22:00 97.9 76 17 138/77 (97) 96 02/14/19 20:06 92 Nasal Cannula 2.0 28 02/14/19 20:05 72 18 95 Nasal Cannula 2.0 28 02/14/19 20:00 64 02/14/19 20:00 Nasal Cannula 1.0 02/14/19 16:03 51 02/14/19 16:00 98.0 69 19 126/88 (101) 98 Intake and Output 02/14/19 02/15/19 19:00 07:00 Intake Total 570 ml 929.4 ml Output Total 800 ml 1700 ml Balance -230 ml -770.6 ml Intake Oral 520 ml 360 ml IV Total 50 ml 569.4 ml Output Urine Total 800 ml 1700 ml # Voids 2 # Bowel Movements 2 1 General Appearance: WD/WN HEENT: normocephalic, atraumatic Respiratory/Chest: chest wall non-tender, lungs clear, no respiratory distress Cardiovascular: normal peripheral pulses, normal rate, regular rhythm Abdomen: normal bowel sounds, soft, non tender Genitourinary: normal external genitalia Extremities: no cyanosis Skin: no lesions 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 Laboratory Tests 02/15/19 08:30: White Blood Count 8.7, Red Blood Count 3.36L, Hemoglobin 10.1L, Hematocrit 30.3L , Mean Corpuscular Volume 90, Mean Corpuscular Hemoglobin 30.1, Mean Corpuscular Hemoglobin Concent 33.3, Red Cell Distribution Width 13.7, Platelet Count 76L, Mean Platelet Volume 6.2L, Neutrophils (%) (Auto) , Lymphocytes (%) ( Auto) , Monocytes (%) (Auto) , Eosinophils (%) (Auto) , Basophils (%) (Auto) , Differential Total Cells Counted 100, Neutrophils % (Manual) 60, Lymphocytes % ( Manual) 33, Monocytes % (Manual) 7, Eosinophils % (Manual) 0, Basophils % ( Manual) 0, Band Neutrophils 0, Platelet Estimate DecreasedL, Platelet Morphology Normal, Hypochromasia 1+, Spherocytes 1+, Sodium Level 142, Potassium Level 3.1L, Chloride Level 105, Carbon Dioxide Level 35H, Anion Gap 2L , Blood Urea Nitrogen 10, Creatinine 0.9, Estimat Glomerular Filtration Rate > 60, Glucose Level 118H, Calcium Level 7.3L, Phosphorus Level 2.2L Current Medications Medications (Trade) Dose Ordered Sig/Ricardo Route PRN Reason Start Time Stop Time Status Last Admin Dose Admin Acetaminophen (Tylenol) 650 mg Q4H PRN ORAL T>100.5 02/13/19 16:00 02/23/19 19:59 Acetaminophen (Tylenol) 650 mg Q4H PRN ORAL Mild Pain (Pain Scale 1-3) 02/15/19 11:30 02/15/19 18:00 Al Hydroxide/Mg Hydroxide (Mylanta) 15 ml Q1H PRN ORAL gi upset 02/15/19 11:30 02/15/19 18:00 Albuterol/ Ipratropium (Albuterol/ Ipratropium) 3 ml Q4H PRN HHN Shortness of Breath 02/13/19 17:00 02/18/19 16:59 Ascorbic Acid (Vitamin C) 250 mg TWICE A DAY ORAL 02/13/19 18:00 02/26/19 17:59 02/15/19 09:45 Atropine Sulfate (Atropine) 0.5 mg Q5M PRN IV bpm less than 45 02/15/19 11:30 02/15/19 18:00 Chlorhexidine Gluconate (Roseanna-Hex 2%) 1 applic DAILY@2000 TOPIC 02/13/19 20:00 03/09/19 19:59 02/14/19 20:18 Dextrose (Dextrose 50%) 25 ml Q30M PRN IV Hypoglycemia 02/13/19 16:00 02/24/19 18:59 Dextrose (Dextrose 50%) 50 ml Q30M PRN IV Hypoglycemia 02/13/19 16:00 02/24/19 18:59 Dextrose/ Electrolytes 1,000 ml @ 50 mls/hr Q20H IV 02/14/19 09:30 03/16/19 09:29 02/15/19 05:49 Diphenhydramine HCl (Benadryl) 25 mg Q15M PRN IVP Itching 02/15/19 11:30 02/15/19 18:00 Fentanyl Citrate (Sublimaze 100 mcg/2 mL) 25 mcg Q10M PRN IV Moderate Pain (Pain Scale 4-6) 02/15/19 11:30 02/15/19 18:00 Haloperidol Lactate (Haldol) 2 mg Q4H PRN IM Agitation 02/13/19 17:00 03/13/19 16:59 Hydralazine HCl (Apresoline) 5 mg Q30M PRN IV SBP>160 OR___/DBP>90 OR___ 02/15/19 11:30 02/15/19 18:00 Hydrocortisone (Solu-CORTEF) 100 mg EVERY 12 HOURS IV 02/14/19 21:00 03/07/19 21:59 02/15/19 09:45 Insulin Aspart (NovoLOG) EVERY 6 HOURS SUBQ 02/13/19 18:00 02/25/19 00:00 02/15/19 01:10 Midazolam HCl (Versed 2mg/2ml vial) 1 mg Q15M PRN IVP For Anxiety 02/15/19 11:30 02/15/19 18:00 Midodrine (Pro-Amatine) 10 mg THREE TIMES A DAY ORAL 02/13/19 18:00 03/01/19 12:59 02/15/19 09:44 Pantoprazole (Protonix) 40 mg DAILY ORAL 02/13/19 17:30 03/15/19 17:29 02/15/19 09:44 Polyethylene Glycol (Miralax) 17 gm DAILYPRN PRN ORAL Constipation 02/13/19 20:00 02/23/19 19:59 Potassium Phosphate 30 mm/ Sodium Chloride 285 ml @ 47.5 mls/hr ONCE IV 02/15/19 11:00 02/15/19 17:00 02/15/19 12:23 Quetiapine Fumarate (SEROqueL) 50 mg Q12HR ORAL 02/13/19 21:00 03/13/19 10:14 02/15/19 09:44 Sodium Chloride 1,000 ml @ 10 mls/hr Q24H IVLG 02/15/19 11:19 02/15/19 13:18 02/15/19 11:19 Ron Anthony MD Feb 15, 2019 12:32
--- NOTE | 2019-02-15 12:52 | Diagnostic Imaging Report ---
Indication: Dyspnea Comparison: 02/14/2019 A single view chest radiograph was obtained. Findings: Interstitial edema appears slightly worse. PICC line is stable. Heart size is stable. IMPRESSION: Interstitial edema
--- NOTE | 2019-02-15 13:45 | General Progress Note ---
Assessment/Plan Status: stable, progressing, unchanged Assessment/Plan: Patient with multiple medical issues currently. Need to continue therahoney to the ulcer to loosen the eschar enough to allow removal of it. Anticipate removal in the next week. Continue to float the heels on pillows. Once the eschar has loosened can excise at the bedside. This will then allow more definite wound care recommendations as well as define the true stage of the ulcer. Subjective Date patient seen: Feb 15, 2019 Time patient seen: 13:43 Allergies: Coded Allergies: No Known Allergies (Unverified , 01/24/19) Subjective Follow up evaluation on patient with a left heel unstageable pressure ulcer. Patient just returned from for g-tube placement. Biotene dressing in place and heels are floating. Objective Last 24 Hour Vital Signs Date Time Temp Pulse Resp B/P (MAP) Pulse Ox O2 Delivery O2 Flow Rate FiO2 02/15/19 12:15 97.1 67 15 132/68 97 Nasal Cannula 2 02/15/19 12:00 58 12 132/69 94 Nasal Cannula 2 02/15/19 11:56 67 18 96 02/15/19 11:54 77 18 96 02/15/19 11:45 60 16 143/66 96 Nasal Cannula 2 02/15/19 11:35 67 18 130/66 96 Nasal Cannula 2 02/15/19 11:30 62 18 127/65 96 Nasal Cannula 2 02/15/19 11:25 97.3 60 15 123/57 96 Nasal Cannula 2 02/15/19 08:29 Nasal Cannula 1.0 02/15/19 08:22 96 Nasal Cannula 2.0 28 02/15/19 08:22 75 18 96 Nasal Cannula 2.0 28 02/15/19 04:00 53 02/15/19 00:00 98.0 72 18 134/81 (98) 96 02/15/19 00:00 75 02/14/19 22:00 97.9 76 17 138/77 (97) 96 02/14/19 20:06 92 Nasal Cannula 2.0 28 02/14/19 20:05 72 18 95 Nasal Cannula 2.0 28 02/14/19 20:00 64 02/14/19 20:00 Nasal Cannula 1.0 02/14/19 16:03 51 02/14/19 16:00 98.0 69 19 126/88 (101) 98 Intake and Output 02/14/19 02/15/19 19:00 07:00 Intake Total 570 ml 929.4 ml Output Total 800 ml 1700 ml Balance -230 ml -770.6 ml Intake Oral 520 ml 360 ml IV Total 50 ml 569.4 ml Output Urine Total 800 ml 1700 ml # Voids 2 # Bowel Movements 2 1 Laboratory Tests 02/15/19 08:30: White Blood Count 8.7, Red Blood Count 3.36L, Hemoglobin 10.1L, Hematocrit 30.3L , Mean Corpuscular Volume 90, Mean Corpuscular Hemoglobin 30.1, Mean Corpuscular Hemoglobin Concent 33.3, Red Cell Distribution Width 13.7, Platelet Count 76L, Mean Platelet Volume 6.2L, Neutrophils (%) (Auto) , Lymphocytes (%) ( Auto) , Monocytes (%) (Auto) , Eosinophils (%) (Auto) , Basophils (%) (Auto) , Differential Total Cells Counted 100, Neutrophils % (Manual) 60, Lymphocytes % ( Manual) 33, Monocytes % (Manual) 7, Eosinophils % (Manual) 0, Basophils % ( Manual) 0, Band Neutrophils 0, Platelet Estimate DecreasedL, Platelet Morphology Normal, Hypochromasia 1+, Spherocytes 1+, Sodium Level 142, Potassium Level 3.1L, Chloride Level 105, Carbon Dioxide Level 35H, Anion Gap 2L , Blood Urea Nitrogen 10, Creatinine 0.9, Estimat Glomerular Filtration Rate > 60, Glucose Level 118H, Calcium Level 7.3L, Phosphorus Level 2.2L Height (Feet): 5 Height (Inches): 7.00 Weight (Pounds): 178 General Appearance: alert Respiratory/Chest: no respiratory distress Extremities: non-tender Skin: other - Left heel eschar still adherent but beginning to loosen from the sides. No erythema or warmth. No drainage. Surjit Daniel MD Feb 15, 2019 13:45
--- NOTE | 2019-02-15 14:39 | NUR ---
RD ASSESSMENT & RECOMMENDATIONS SEE CARE ACTIVITY FOR COMPLETE ASSESSMENT DAILY ESTIMATED NEEDS: Needs based on Pulmonary, sepsis, wounds 69kg 25-30 kcals/kg 2591-7299 total kcals 1.25-2 g protein/kg 86-138 g total protein 25-30 mL/kg 2395-1067 total fluid mLs NUTRITION DIAGNOSIS: *Swallowing difficulty R/T dysphagia, confusion as evidenced by s/p pt failed MBSS, TUGBOAT MATE recommends nonoral feeding, s/p failed attempts to insert NGT, pt is now s/p PEG placement. * Altered nutrition related lab values R/T clinical condition as evidenced by elev BNP (18322), low K (3.1), low phos (2.2) *Increased kcal and pro needs r/t sepsis, wound healing, and underweight status as evidenced by pt w respiratory distress now s/p extubation, critically elev WBC (*29.7-> wnl), elev BGs-> now improved, w/ multiple wounds (refer to eval), pt is @88% if [place] Body Weight. PT ON LIQUIFY PUREED, NTL FROM 02/12 LUNCH-02/15 BREAKFAST, MAGGIE COUNT X 72 HRS WAS ORDERED. NOW S/P PEG PLACEMENT THIS AM 02/15. 02/12 lunch: 10% of tray 02/12 dinner: 10% of tray 02/13 breakfast: 5% cream of wheat, 1% eggs, 0% bread, 5% Glucerna 02/13 lunch: 1% veg soup, 5% chicken, 0% bread, 5% Glucerna 02/13 dinner: 0% chicken, 0% soup, 100% mashed potatoes liquify pureed, 0% Glucerna, 0% juice 02/14 breakfast: 50% oatmeal liquify pureed, 60% Glucerna, 10% eggs liquify pureed 02/14 lunch: 75% meatloaf liquify pureed, 10% green beans liquify pureed 02/14 dinner: 100% turkey liquify pureed, 100% mushroom liquify pureed, 75% bread liquify pureed 02/15 breakfast: 100% oatmeal liquify pureed, 50% eggs liquify pureed, 50% bread liquify pureed, 50% Glucerna RESULT: pt w/ minimal intake from 02/12-02/13. However, observed improved intake from 02/14-02/15. Pt consumed ~1000 kcal in the last 24 hrs. It is difficult to obtain accurate kcal intake as liquify pureed diet is diluted w/ water or broth to get liquify pureed soup like consistency. Pt is now s/p PEG placement, diet order dc'ed. ------- RECOMMEND: pt currently without diet order, s/p PEG placement. Rec TUGBOAT MATE eval for possible oral grat if pt is safe to continue oral intake. CURRENT DIET:NPO CURRENT TF:Glucerna 1.2 @ 60ml/hr x 24 hrs ordered (PEG placed this AM) PO DIET RECOMMENDATIONS: IF ORAL GRAT INDICATED: rec liberalized REGULAR/ texture per TUGBOAT MATE ENTERAL NUTRITION RECOMMENDATIONS: Glucerna 1.5 @ 50ml/hr x24 hrs to provide 1200ml, 1800 kcal, 99g pro, 911ml free H2o -> Rec TF change to Glucerna 1.5 for less free water (UPH=55998) -> initiate Glucerna 1.5 @ 10ml/hr x 6 hrs -> Advance 10ml q 4-6 hrs as tolerated to goal rate. . -> HOB over 30 degrees/ water flush per MD ADDITIONAL RECOMMENDATIONS: 1) Per SNF: HT 71 inches, 152 lbs (69.1kg) + daily calibrated bedscale wts -> REC RECALIBRATED BEDSCALE WT (now w/ added p200 mattress + pump) 2) Wound care: Continue Vit C; add Christian 1pkt BID 3) Monitor lytes daily, replete as needed (low K and phos) 4) TUGBOAT MATE re-eval for possible oral grat w/ GT feeds 5) Monitor BGs closely while on Solumedrol .
--- NOTE | 2019-02-15 16:30 | Procedure Note ---
DATE OF PROCEDURE: 02/15/2019 SURGEON: Leonel Valderrama M.D. PROCEDURE: Upper endoscopy with PEG placement. ANESTHESIA: Per AdyMorfin. INSTRUMENT: Olympus adult flexible upper endoscope. INDICATION: Dysphagia. REASON FOR PROCEDURE: The procedure, risks, benefits, and possible consequences, including hemorrhage, aspiration, perforation and infection, and alternative treatments, were explained to the patient/legal guardian by Dr. Leonel Valderrama and the patient/legal guardian understood and accepted these risks. PROCEDURE IN DETAIL: After informed consent was obtained and the patient was adequately sedated, Olympus upper endoscope was advanced from mouth into the second portion of the duodenum and retroflexion was performed in the stomach. The patient has severe atrophic gastritis. Then under endoscopic guidance, under sterile condition, a 20-Nigerien pull type of G-tube was successfully placed in the epigastric area. The distance from the tip of the tube to skin was about 2 cm in size. The patient tolerated the procedure very well without any complication. SUMMARY OF FINDING: Status post successful PEG placement. RECOMMENDATIONS: 1. Abdominal binder. 2. Elevate the head of the bed at all times. 3. G-tube flush. 4. G-tube care. 5. Start tube feeding later today. Leonel Valderrama M.D. DR: BRI JOB#: [id number] CC:
--- NOTE | 2019-02-15 17:57 | Surgery Progress Note ---
Surgery Progress Note Subjective Additional Comments peg placed today otherwise stable tube feeds tolerated so far Objective Last 24 Hour Vital Signs Date Time Temp Pulse Resp B/P (MAP) Pulse Ox O2 Delivery O2 Flow Rate FiO2 02/15/19 16:00 73 02/15/19 12:15 97.1 67 15 132/68 97 Nasal Cannula 2 02/15/19 12:00 58 12 132/69 94 Nasal Cannula 2 02/15/19 12:00 58 02/15/19 11:56 67 18 96 02/15/19 11:54 77 18 96 02/15/19 11:45 60 16 143/66 96 Nasal Cannula 2 02/15/19 11:35 67 18 130/66 96 Nasal Cannula 2 02/15/19 11:30 62 18 127/65 96 Nasal Cannula 2 02/15/19 11:25 97.3 60 15 123/57 96 Nasal Cannula 2 02/15/19 08:29 Nasal Cannula 1.0 02/15/19 08:22 96 Nasal Cannula 2.0 28 02/15/19 08:22 75 18 96 Nasal Cannula 2.0 28 02/15/19 08:00 88 02/15/19 04:00 53 02/15/19 00:00 98.0 72 18 134/81 (98) 96 02/15/19 00:00 75 02/14/19 22:00 97.9 76 17 138/77 (97) 96 02/14/19 20:06 92 Nasal Cannula 2.0 28 02/14/19 20:05 72 18 95 Nasal Cannula 2.0 28 02/14/19 20:00 64 02/14/19 20:00 Nasal Cannula 1.0 I&O Intake and Output 02/14/19 02/15/19 19:00 07:00 Intake Total 570 ml 929.4 ml Output Total 800 ml 1700 ml Balance -230 ml -770.6 ml Intake Oral 520 ml 360 ml IV Total 50 ml 569.4 ml Output Urine Total 800 ml 1700 ml # Voids 2 # Bowel Movements 2 1 Dressing: other Wound: other Drains: other Cardiovascular: RSR Respiratory: decreased breath sounds Abdomen: soft, present bowel sounds, non-distended Extremities: no cyanosis Laboratory Tests Test 02/15/19 08:30 White Blood Count 8.7 K/UL (4.8-10.8) Red Blood Count 3.36 M/UL (4.70-6.10) L Hemoglobin 10.1 G/DL (14.2-18.0) L Hematocrit 30.3 % (42.0-52.0) L Mean Corpuscular Volume 90 FL (80-99) Mean Corpuscular Hemoglobin 30.1 PG (27.0-31.0) Mean Corpuscular Hemoglobin Concent 33.3 G/DL (32.0-36.0) Red Cell Distribution Width 13.7 % (11.6-14.8) Platelet Count 76 K/UL (150-450) L Mean Platelet Volume 6.2 FL (6.5-10.1) L Neutrophils (%) (Auto) % (45.0-75.0) Lymphocytes (%) (Auto) % (20.0-45.0) Monocytes (%) (Auto) % (1.0-10.0) Eosinophils (%) (Auto) % (0.0-3.0) Basophils (%) (Auto) % (0.0-2.0) Differential Total Cells Counted 100 Neutrophils % (Manual) 60 % (45-75) Lymphocytes % (Manual) 33 % (20-45) Monocytes % (Manual) 7 % (1-10) Eosinophils % (Manual) 0 % (0-3) Basophils % (Manual) 0 % (0-2) Band Neutrophils 0 % (0-8) Platelet Estimate Decreased L Platelet Morphology Normal Hypochromasia 1+ Spherocytes 1+ Sodium Level 142 MMOL/L (136-145) Potassium Level 3.1 MMOL/L (3.5-5.1) L Chloride Level 105 MMOL/L (98-107) Carbon Dioxide Level 35 MMOL/L (21-32) H Anion Gap 2 mmol/L (5-15) L Blood Urea Nitrogen 10 mg/dL (7-18) Creatinine 0.9 MG/DL (0.55-1.30) Estimat Glomerular Filtration Rate > 60 mL/min (>60) Glucose Level 118 MG/DL (74-106) H Calcium Level 7.3 MG/DL (8.5-10.1) L Phosphorus Level 2.2 MG/DL (2.5-4.9) L Plan Problems: (1) Sepsis Assessment & Plan: afebrile, HD improving HR -noted cardiology input leukocytosis lactic acidosis resolved slowly improving -IV abx as per ID -trend labs if cont to fail will discuss with team about peg as currently he is fairly alert discussed with GI. reviewed bioethics Neuro eval for dementia [employer] notes reviewed tube feeds d/c planning placement -will follow with recs thank you (2) Septic shock (3) Wound, open Assessment & Plan: Patient presented on admission with multiple pressure injuries being identified. Non-blanching erythema without induration noted to sacrum ,Right and Left buttocks. Scattered areas that are darker and maroon in color noted within base of wound. Scrotum is also erythematous. Unstageable pressure injury noted to Left heel. Base of wound is 100% necrotic but soft. Erythematous margins with surrounding non-blanching erythema.(L)3.2cm x (W)3cm. no drainage Right heel is boggy with non-blanching erythema.. Keloid scar noted distal R tibia. Partial thickness ulcer noted to dorsal R foot. Base of wound is moist and viable. Small amt serous exudate noted. Scattered small dry scabs noted to dorsal R foot. Non-blanching erythema without induration sacrum. R heel boggy but blanchable. Unstageable pressure injury L heel. Soft necrosis with detached borders. Scattered Slough, erythema along borders. Mild odor noted.(L)2.4cm x (W)3.5cm. Non-blanching erythema with fluctuance periwound.Wound Tx. are effective and continued as ordered. All wound prevention protocols continued as care-planned. Tx.Plan: Swab Dorsal R foot and R heel with Betadine. Cover with Optifoam drsg. Change every 3 days and prn. Apply Moisture Barrier Paste to buttocks. Cover sacrum with Optifoam drsg. Change every 3 days and prn. Apply Cavilon Skin Barrier to L heel.Cover with Optifoam drsg. Change every 7 days and prn. APM/JELLY mattress. Reposition at least every 2hours or as tolerated. Off-load heels with pillow. Nutritional Optimization Will monitor while in critical condition DAILY ESTIMATED NEEDS: Needs based on Critical care, sepsis, wounds 69kg 22-30 kcals/kg 7279-6747 total kcals 1.25-2 g protein/kg 86-138 g total protein 25-30 mL/kg 6642-6339 total fluid mLs NUTRITION DIAGNOSIS: Increased kcal and pro needs r/t sepsis, wound healing, and underweight status as evidenced by pt w respiratory distress now intubated, critically elev WBC (*29.7), elev BG (200's), w/ multiple wounds (refer to eval), pt is @88% if [place] Body Weight. CURRENT TF: Glucerna 1.2 @30ml ENTERAL NUTRITION RECOMMENDATIONS: VITAL AF 1.2 @60ml/hr x24 hrs to provide 1440ml, 1728 kcal, 108g pro, 1168ml free H2O - WITH HEMODYNAMIC STABILITY, rec TF change to VITAL 1.2 to better meet est needs. Start @20ml/hr for 6 hrs. Advance as tolerated 10ml/hr q4-6 hrs to goal. - Flush per . HOB over 30 degrees If pt remains on pressor support, rec trophic feeds of Vital 1.2 @5-10ml/hr to maintain gut integrity. ------ ADDITIONAL RECOMMENDATIONS: 1) Per SNF: HT 71 inches, 152 lbs (69.1kg) 2) Wound care: Add DANIELA in 4oz water BID via OGT + VIT C 250mg BID (f/up w/ WC specialist) 3) Monitor lytes daily, replete as needed 4) Daily calibrated bed scale Mauricio Jack Feb 15, 2019 17:57
--- NOTE | 2019-02-15 19:15 | NUR ---
NURSE NOTES: Received pt from EUGENIA White. Pt is awake and resting in bed in no distress. Iv site intact. Bed locked in lowest position, bed alarm on, call light within reach. Will continue with plan of care.
--- NOTE | 2019-02-15 20:08 | Cardiology Progress Note ---
Assessment/Plan Assessment/Plan 1. Septic syndrome. 2. Respiratory failure now extubated 3. Pneumonia. 4. Schizophrenia and dementia. 5. Urinary tract infection. 6. Renal failure. 7. Hypoalbuminemia/malnutrition. 8. Sinus tachycardia secondary to above resolved 9. Left ventricular systolic dysfunction. 10. sinus alanna renal fxn stable tele sinus / alanna off all pressors avoid any neg chronotropic agents , sinus alanna only no pauses on tele bp seem fien s/p peg k supplement per dr villa Subjective Cardiovascular: Denies: chest pain Objective Last 24 Hour Vital Signs Date Time Temp Pulse Resp B/P (MAP) Pulse Ox O2 Delivery O2 Flow Rate FiO2 02/15/19 16:00 73 02/15/19 12:15 97.1 67 15 132/68 97 Nasal Cannula 2 02/15/19 12:00 58 12 132/69 94 Nasal Cannula 2 02/15/19 12:00 58 02/15/19 11:56 67 18 96 02/15/19 11:54 77 18 96 02/15/19 11:45 60 16 143/66 96 Nasal Cannula 2 02/15/19 11:35 67 18 130/66 96 Nasal Cannula 2 02/15/19 11:30 62 18 127/65 96 Nasal Cannula 2 02/15/19 11:25 97.3 60 15 123/57 96 Nasal Cannula 2 02/15/19 08:29 Nasal Cannula 1.0 02/15/19 08:22 96 Nasal Cannula 2.0 28 02/15/19 08:22 75 18 96 Nasal Cannula 2.0 28 02/15/19 08:00 88 02/15/19 04:00 53 02/15/19 00:00 98.0 72 18 134/81 (98) 96 02/15/19 00:00 75 02/14/19 22:00 97.9 76 17 138/77 (97) 96 General Appearance: no apparent distress, alert, patient on isolation Abdomen: soft Intake and Output 02/14/19 02/15/19 19:00 07:00 Intake Total 570 ml 929.4 ml Output Total 800 ml 1700 ml Balance -230 ml -770.6 ml Intake Oral 520 ml 360 ml IV Total 50 ml 569.4 ml Output Urine Total 800 ml 1700 ml # Voids 2 # Bowel Movements 2 1 Laboratory Tests Test 02/15/19 08:30 White Blood Count 8.7 K/UL (4.8-10.8) Red Blood Count 3.36 M/UL (4.70-6.10) L Hemoglobin 10.1 G/DL (14.2-18.0) L Hematocrit 30.3 % (42.0-52.0) L Mean Corpuscular Volume 90 FL (80-99) Mean Corpuscular Hemoglobin 30.1 PG (27.0-31.0) Mean Corpuscular Hemoglobin Concent 33.3 G/DL (32.0-36.0) Red Cell Distribution Width 13.7 % (11.6-14.8) Platelet Count 76 K/UL (150-450) L Mean Platelet Volume 6.2 FL (6.5-10.1) L Neutrophils (%) (Auto) % (45.0-75.0) Lymphocytes (%) (Auto) % (20.0-45.0) Monocytes (%) (Auto) % (1.0-10.0) Eosinophils (%) (Auto) % (0.0-3.0) Basophils (%) (Auto) % (0.0-2.0) Differential Total Cells Counted 100 Neutrophils % (Manual) 60 % (45-75) Lymphocytes % (Manual) 33 % (20-45) Monocytes % (Manual) 7 % (1-10) Eosinophils % (Manual) 0 % (0-3) Basophils % (Manual) 0 % (0-2) Band Neutrophils 0 % (0-8) Platelet Estimate Decreased L Platelet Morphology Normal Hypochromasia 1+ Spherocytes 1+ Sodium Level 142 MMOL/L (136-145) Potassium Level 3.1 MMOL/L (3.5-5.1) L Chloride Level 105 MMOL/L (98-107) Carbon Dioxide Level 35 MMOL/L (21-32) H Anion Gap 2 mmol/L (5-15) L Blood Urea Nitrogen 10 mg/dL (7-18) Creatinine 0.9 MG/DL (0.55-1.30) Estimat Glomerular Filtration Rate > 60 mL/min (>60) Glucose Level 118 MG/DL (74-106) H Calcium Level 7.3 MG/DL (8.5-10.1) L Phosphorus Level 2.2 MG/DL (2.5-4.9) L VolodymyrSammy S. MD Feb 15, 2019 20:08
[2019-02-15] MEDS: Dyna-Hex 2% Top Sol 2oz TOPIC SCH (20:15)
[2019-02-16] VITALS: BP 122/63
[2019-02-16] MEDS: NovoLOG Insulin Flexpen SUBQ SCH ×4 (00:13→18:11)
[2019-02-16] MEDS: D5 1/2NS w/KCl 40meq 1000ml 1,000 ML IV SCH ×2 (02:30→21:11)
--- NOTE | 2019-02-16 06:33 | Hematology/Onc Progress Note ---
Assessment/Plan Assessment/Plan Assessment and Recs: # Dvt of the lower left superficial femoral vein with low platelets id contraindicated for ATC therapy --> ordered ivc filter, as per pulm--> at this time, contraindicated for anticoagulants --> no further heparin given low counts --> lack of consent, this is an emergency procedure --> pending bioethics eval # Thrombocytopenia - potential causes multifactorial, evaluate liver and viral etiologies to begin, us abd shows Coarsened hepatic echogenicity, may indicate hepatocellular disease, INr also high, also may be related to sepsis, recovery may have HEP C --> Hep panel pending and HIV negative --> US abd does show some coarsened liver, query cirrhosis, Inr also high --> Peripheral smear ordered to evaluate for blasts /schistocytes --> abx and other meds have been reviewed --> ok for ppx if plt >50k w/ either heparin or lovenox --> Transfuse if Plt < 20k and fever, or if Plt < 10k without fever --> plt trend 74-->70->59k-->46k-->77k-->76k --> platelets to be given before procedure, now s/p peg # Anemia of chronic disease, borderline --> hgb trend 11-->10.7-->10.4-->9.8 --> panel has been reviewed --> no bleeding noted # Dysphagia, now s/p peg --> ng unsuccessful --> as per gi, s/p peg # Septic shock with multiple infection --> on abx per id # Resp failure s/p intubation --> extubated 02/02 --> on nc # COPD # PVD # Schizophrenia # Cardiomyopathy # Dvt ppx scds, needs ivcf DW Rn and appreciate consultation. Subjective Constitutional: Denies: no symptoms, chills, fever, malaise, weakness, other HEENT: Denies: no symptoms, eye pain, blurred vision, tearing, double vision, ear pain, ear discharge, nose pain, nose congestion, throat pain, throat swelling, mouth pain, mouth swelling, other Cardiovascular: Denies: no symptoms, chest pain, edema, irregular heart rate, lightheadedness, palpitations, syncope, other Respiratory: Denies: no symptoms, cough, shortness of breath, SOB with excertion, SOB at rest, sputum, wheezing, other Gastrointestinal/Abdominal: Denies: no symptoms, abdomen distended, abdominal pain, black stools, tarry stools, blood in stool, constipated, diarrhea, difficulty swallowing, nausea, poor appetite, poor fluid intake, rectal bleeding , vomiting, other Genitourinary: Denies: no symptoms, burning, discharge, frequency, flank pain, hematuria, incontinence, pain, urgency, other Neurologic/Psychiatric: Denies: no symptoms, anxiety, depressed, emotional problems, headache, numbness, paresthesia, pre-existing deficit, seizure, tingling, tremors, weakness, other Allergies: Coded Allergies: No Known Allergies (Unverified , 01/24/19) Subjective 02/11: remains in the icu, labs noted, reviewed, no bleeding or chills, hep panel pend 02/12: no events noted, remains in icu, needs bioethics pending eval, plts pending 02/13: no major changes, on nc, no bleeding, labs plt 46k, to get 1 unit plts 02/14: transferred to [facility], afebrile, s/p plt tx, plt improved to 77k 02/15: no major changes, remains arousable, no bleeding, labs pend 02/16: s/p peg, no bleeding, labs reviewed Objective Objective Current Medications Medications (Trade) Dose Ordered Sig/Ricardo Route PRN Reason Start Time Stop Time Status Last Admin Dose Admin Acetaminophen (Tylenol) 650 mg Q4H PRN ORAL T>100.5 02/13/19 16:00 02/23/19 19:59 Albuterol/ Ipratropium (Albuterol/ Ipratropium) 3 ml Q4H PRN HHN Shortness of Breath 02/13/19 17:00 02/18/19 16:59 Ascorbic Acid (Vitamin C) 250 mg TWICE A DAY ORAL 02/13/19 18:00 02/26/19 17:59 02/15/19 17:38 Chlorhexidine Gluconate (Roseanna-Hex 2%) 1 applic DAILY@1999 TOPIC 02/13/19 20:00 03/09/19 19:59 02/15/19 20:15 Dextrose (Dextrose 50%) 25 ml Q30M PRN IV Hypoglycemia 02/13/19 16:00 02/24/19 18:59 Dextrose (Dextrose 50%) 50 ml Q30M PRN IV Hypoglycemia 02/13/19 16:00 02/24/19 18:59 Dextrose/ Electrolytes 1,000 ml @ 50 mls/hr Q20H IV 02/14/19 09:30 03/16/19 09:29 02/16/19 02:30 Haloperidol Lactate (Haldol) 2 mg Q4H PRN IM Agitation 02/13/19 17:00 03/13/19 16:59 Hydrocortisone (Solu-CORTEF) 100 mg DAILY IV 02/16/19 09:00 03/07/19 21:59 Insulin Aspart (NovoLOG) EVERY 6 HOURS SUBQ 02/13/19 18:00 02/25/19 00:00 02/16/19 00:13 Midodrine (Pro-Amatine) 10 mg THREE TIMES A DAY ORAL 02/13/19 18:00 03/01/19 12:59 02/15/19 17:37 Pantoprazole (Protonix) 40 mg DAILY ORAL 02/13/19 17:30 03/15/19 17:29 02/15/19 09:44 Polyethylene Glycol (Miralax) 17 gm DAILYPRN PRN ORAL Constipation 02/13/19 20:00 02/23/19 19:59 Quetiapine Fumarate (SEROqueL) 50 mg Q12HR ORAL 02/13/19 21:00 03/13/19 10:14 02/15/19 20:15 Last 24 Hour Vital Signs Date Time Temp Pulse Resp B/P (MAP) Pulse Ox O2 Delivery O2 Flow Rate FiO2 02/16/19 04:00 60 02/16/19 00:00 58 02/16/19 00:00 97.4 58 16 122/63 (82) 96 02/15/19 20:22 67 18 97 Nasal Cannula 2.0 28 02/15/19 20:22 97 Nasal Cannula 2.0 28 02/15/19 20:00 80 02/15/19 20:00 97.8 80 17 118/66 (83) 94 02/15/19 16:00 73 02/15/19 12:15 97.1 67 15 132/68 97 Nasal Cannula 2 02/15/19 12:00 58 12 132/69 94 Nasal Cannula 2 02/15/19 12:00 58 02/15/19 11:56 67 18 96 02/15/19 11:54 77 18 96 02/15/19 11:45 60 16 143/66 96 Nasal Cannula 2 02/15/19 11:35 67 18 130/66 96 Nasal Cannula 2 02/15/19 11:30 62 18 127/65 96 Nasal Cannula 2 02/15/19 11:25 97.3 60 15 123/57 96 Nasal Cannula 2 02/15/19 08:29 Nasal Cannula 1.0 02/15/19 08:22 96 Nasal Cannula 2.0 28 02/15/19 08:22 75 18 96 Nasal Cannula 2.0 28 02/15/19 08:00 88 02/15/19 04:00 53 02/15/19 00:00 98.0 72 18 134/81 (98) 96 02/15/19 00:00 75 02/14/19 22:00 97.9 76 17 138/77 (97) 96 02/14/19 20:06 92 Nasal Cannula 2.0 28 02/14/19 20:05 72 18 95 Nasal Cannula 2.0 28 02/14/19 20:00 64 02/14/19 20:00 Nasal Cannula 1.0 02/14/19 16:03 51 02/14/19 16:00 98.0 69 19 126/88 (101) 98 02/14/19 12:00 97.2 63 20 139/71 (93) 97 02/14/19 11:45 58 02/14/19 08:17 Nasal Cannula 1.0 02/14/19 08:00 98.1 77 19 127/69 (88) 91 02/14/19 07:44 63 02/14/19 07:16 71 18 93 Room Air 21 02/14/19 07:16 93 Room Air 21 Intake and Output 02/15/19 02/16/19 18:59 06:59 Intake Total 465 ml 700 ml Output Total 800 ml Balance -335 ml 700 ml Intake Oral 240 ml Free Water 200 ml IV Total 225 ml Tube Feeding 500 ml Output Urine Total 800 ml Labs Test 02/14/19 04:30 02/15/19 08:30 White Blood Count 9.4 K/UL (4.8-10.8) 8.7 K/UL (4.8-10.8) Red Blood Count 3.21 M/UL (4.70-6.10) 3.36 M/UL (4.70-6.10) Hemoglobin 9.8 G/DL (14.2-18.0) 10.1 G/DL (14.2-18.0) Hematocrit 28.9 % (42.0-52.0) 30.3 % (42.0-52.0) Mean Corpuscular Volume 90 FL (80-99) 90 FL (80-99) Mean Corpuscular Hemoglobin 30.5 PG (27.0-31.0) 30.1 PG (27.0-31.0) Mean Corpuscular Hemoglobin Concent 33.8 G/DL (32.0-36.0) 33.3 G/DL (32.0-36.0) Red Cell Distribution Width 14.0 % (11.6-14.8) 13.7 % (11.6-14.8) Platelet Count 77 K/UL (150-450) 76 K/UL (150-450) Mean Platelet Volume 7.1 FL (6.5-10.1) 6.2 FL (6.5-10.1) Neutrophils (%) (Auto) % (45.0-75.0) % (45.0-75.0) Lymphocytes (%) (Auto) % (20.0-45.0) % (20.0-45.0) Monocytes (%) (Auto) % (1.0-10.0) % (1.0-10.0) Eosinophils (%) (Auto) % (0.0-3.0) % (0.0-3.0) Basophils (%) (Auto) % (0.0-2.0) % (0.0-2.0) Differential Total Cells Counted 100 100 Neutrophils % (Manual) 79 % (45-75) 60 % (45-75) Lymphocytes % (Manual) 13 % (20-45) 33 % (20-45) Monocytes % (Manual) 8 % (1-10) 7 % (1-10) Eosinophils % (Manual) 0 % (0-3) 0 % (0-3) Basophils % (Manual) 0 % (0-2) 0 % (0-2) Band Neutrophils 0 % (0-8) 0 % (0-8) Platelet Estimate Decreased Decreased Platelet Morphology Normal Normal Anisocytosis 1+ Sodium Level 142 MMOL/L (136-145) 142 MMOL/L (136-145) Potassium Level 2.8 MMOL/L (3.5-5.1) 3.1 MMOL/L (3.5-5.1) Chloride Level 105 MMOL/L (98-107) 105 MMOL/L (98-107) Carbon Dioxide Level 35 MMOL/L (21-32) 35 MMOL/L (21-32) Anion Gap 2 mmol/L (5-15) 2 mmol/L (5-15) Blood Urea Nitrogen 10 mg/dL (7-18) 10 mg/dL (7-18) Creatinine 0.9 MG/DL (0.55-1.30) 0.9 MG/DL (0.55-1.30) Estimat Glomerular Filtration Rate > 60 mL/min (>60) > 60 mL/min (>60) Glucose Level 134 MG/DL (74-106) 118 MG/DL (74-106) Calcium Level 7.1 MG/DL (8.5-10.1) 7.3 MG/DL (8.5-10.1) Phosphorus Level 2.4 MG/DL (2.5-4.9) 2.2 MG/DL (2.5-4.9) Magnesium Level 1.8 MG/DL (1.8-2.4) Total Bilirubin 0.6 MG/DL (0.2-1.0) Aspartate Amino Transf (AST/SGOT) 33 U/L (15-37) Alanine Aminotransferase (ALT/SGPT) 51 U/L (12-78) Alkaline Phosphatase 105 U/L (46-116) Total Protein 5.2 G/DL (6.4-8.2) Albumin 2.0 G/DL (3.4-5.0) Globulin 3.2 g/dL Albumin/Globulin Ratio 0.6 (1.0-2.7) Hypochromasia 1+ Spherocytes 1+ Height (Feet): 5 Height (Inches): 7.00 Weight (Pounds): 176 Objective Physical Exam Vital Signs noted Gen: agitated Neck: supple Respiratory: normal breath sounds + 2l nc Cardiovascular: normal rate Gastrointestinal: soft Rectal: deferred Neurologic: alert, responsive Med Izquierdo MD Feb 16, 2019 06:33
--- NOTE | 2019-02-16 06:42 | General Progress Note ---
Assessment/Plan Problem List: (1) DM (diabetes mellitus) ICD Codes: E11.9 - Type 2 diabetes mellitus without complications SNOMED: 90049464 (2) cardiomyopathy with EF of 35% (3) Encounter for PEG (percutaneous endoscopic gastrostomy) ICD Codes: Z43.1 - Encounter for attention to gastrostomy SNOMED: 817010297, 423762533 (4) Dysphagia ICD Codes: R13.10 - Dysphagia, unspecified SNOMED: 17112369, 070474240 (5) Bradyarrhythmia ICD Codes: I49.8 - Other specified cardiac arrhythmias SNOMED: 828540675 (6) Systolic heart failure ICD Codes: I50.20 - Unspecified systolic (congestive) heart failure SNOMED: 360121361 (7) Schizophrenia ICD Codes: F20.9 - Schizophrenia, unspecified SNOMED: 63949917 (8) COPD (chronic obstructive pulmonary disease) ICD Codes: J44.9 - Chronic obstructive pulmonary disease, unspecified SNOMED: 56481922 Qualifiers: Qualified Codes: J44.9 - Chronic obstructive pulmonary disease, unspecified Status: stable, progressing, unchanged Assessment/Plan: s/p PEG placement on GTF monitor labs dc planning per primary team Subjective ROS Limited/Unobtainable: No Allergies: Coded Allergies: No Known Allergies (Unverified , 01/24/19) Objective Last 24 Hour Vital Signs Date Time Temp Pulse Resp B/P (MAP) Pulse Ox O2 Delivery O2 Flow Rate FiO2 02/16/19 04:00 60 02/16/19 00:00 58 02/16/19 00:00 97.4 58 16 122/63 (82) 96 02/15/19 20:22 67 18 97 Nasal Cannula 2.0 28 02/15/19 20:22 97 Nasal Cannula 2.0 28 02/15/19 20:00 80 02/15/19 20:00 97.8 80 17 118/66 (83) 94 02/15/19 16:00 73 02/15/19 12:15 97.1 67 15 132/68 97 Nasal Cannula 2 02/15/19 12:00 58 12 132/69 94 Nasal Cannula 2 02/15/19 12:00 58 02/15/19 11:56 67 18 96 02/15/19 11:54 77 18 96 02/15/19 11:45 60 16 143/66 96 Nasal Cannula 2 02/15/19 11:35 67 18 130/66 96 Nasal Cannula 2 02/15/19 11:30 62 18 127/65 96 Nasal Cannula 2 02/15/19 11:25 97.3 60 15 123/57 96 Nasal Cannula 2 02/15/19 08:29 Nasal Cannula 1.0 02/15/19 08:22 96 Nasal Cannula 2.0 28 02/15/19 08:22 75 18 96 Nasal Cannula 2.0 28 02/15/19 08:00 88 Intake and Output 02/15/19 02/16/19 19:00 07:00 Intake Total 455 ml 660 ml Output Total 800 ml Balance -345 ml 660 ml Intake Oral 240 ml Free Water 200 ml IV Total 175 ml Tube Feeding 40 ml 460 ml Output Urine Total 800 ml Laboratory Tests 02/15/19 08:30: White Blood Count 8.7, Red Blood Count 3.36L, Hemoglobin 10.1L, Hematocrit 30.3L , Mean Corpuscular Volume 90, Mean Corpuscular Hemoglobin 30.1, Mean Corpuscular Hemoglobin Concent 33.3, Red Cell Distribution Width 13.7, Platelet Count 76L, Mean Platelet Volume 6.2L, Neutrophils (%) (Auto) , Lymphocytes (%) ( Auto) , Monocytes (%) (Auto) , Eosinophils (%) (Auto) , Basophils (%) (Auto) , Differential Total Cells Counted 100, Neutrophils % (Manual) 60, Lymphocytes % ( Manual) 33, Monocytes % (Manual) 7, Eosinophils % (Manual) 0, Basophils % ( Manual) 0, Band Neutrophils 0, Platelet Estimate DecreasedL, Platelet Morphology Normal, Hypochromasia 1+, Spherocytes 1+, Sodium Level 142, Potassium Level 3.1L, Chloride Level 105, Carbon Dioxide Level 35H, Anion Gap 2L , Blood Urea Nitrogen 10, Creatinine 0.9, Estimat Glomerular Filtration Rate > 60, Glucose Level 118H, Calcium Level 7.3L, Phosphorus Level 2.2L Height (Feet): 5 Height (Inches): 7.00 Weight (Pounds): 176 General Appearance: no apparent distress EENT: normal ENT inspection Neck: supple Cardiovascular: normal rate Respiratory/Chest: decreased breath sounds Abdomen: normal bowel sounds, non tender, soft Extremities: non-tender Leonel Valderrama MD Feb 16, 2019 06:42
--- NOTE | 2019-02-16 07:38 | NUR ---
HAND-OFF: Report given to EUGENIA Ribera. Endorsed plan of care.
--- NOTE | 2019-02-16 07:39 | NUR ---
NURSE NOTES: HANDOFF RECEIVED FROM EUGENIA RINCON. PATIENT RECEIVED AWAKE AND ALERT AND ABLE TO MAKE NEEDS KNOWN. PATIENT HAS RIGHT UPPER ARM PICC RUNNING PRESCRIBED FLUIDS. BED IN THE LOW AND LOCKED POSITION WITH CALL LIGHT WITHIN REACH, WILL CONTINUE TO MONITOR PATIENT.
[2019-02-16 08:00] VITALS: BP 122/69
--- NOTE | 2019-02-16 08:00 | NUR ---
NURSE NOTES: PATIENT HAS PROCEDURE TODAY, STOPPED GTUBE FEEDING AT 0800 PATIENT WAS NOT CURRENTLY NPO. CALLED AND NOTIFIED RADIOLOGY. ALSO TRIED CONTACTING [employer]ER AND [employer] IS ON THE CASE THERE IS NO FAMILY TO OBTAIN CONSENT FOR THE PROCEDURE. UNABLE TO GET HOLD OF CASE MANAGEMENT OR CONTACT [employer] [facility] AT THIS TIME.
[2019-02-16 08:01] LABS: HEMATOCRIT 33.5 % (42.0-52.0); MEAN CORPUSCULAR VOLUME 92 FL (80-99); PLATELET COUNT 87 K/UL (150-450); RED BLOOD COUNT 3.64 M/UL (4.70-6.10); RED CELL DISTRIBUTION WIDTH 15.1 % (11.6-14.8); WHITE BLOOD COUNT 10.5 K/UL (4.8-10.8)
[2019-02-16 08:19] LABS: ALANINE AMINOTRANSFERASE 59 U/L (12-78); ALBUMIN/GLOBULIN RATIO 0.6 (1.0-2.7); ALKALINE PHOSPHATASE 140 U/L (46-116); ASPARTATE AMINO TRANSFERASE 38 U/L (15-37); BILIRUBIN,TOTAL 0.8 MG/DL (0.2-1.0); BLOOD UREA NITROGEN 13 mg/dL (7-18); CALCIUM 7.2 MG/DL (8.5-10.1); CARBON DIOXIDE 39 MMOL/L (21-32); CHLORIDE 106 MMOL/L (98-107); CREATININE 1.2 MG/DL (0.55-1.30); PHOSPHORUS 2.6 MG/DL (2.5-4.9); POTASSIUM 4.2 MMOL/L (3.5-5.1); SODIUM 141 MMOL/L (136-145)
[2019-02-16] MEDS: Hydrocortisone 100mg Inj IV SCH (08:32)
[2019-02-16] MEDS: Ascorbic Acid 500mg tab ORAL SCH ×2 (08:32→18:11)
[2019-02-16] MEDS: Midodrine 10mg tab ORAL SCH ×3 (08:33→18:00)
--- NOTE | 2019-02-16 10:04 | NUR ---
NURSE NOTES: CALLED [employer] BUT WAS TOLD [employer] IS ON THE CASE. [employer] IS NOT IN YET, WILL CALL BACK LATER TO FOLLOW UP REGARDING [employer] FOR THE PROCEDURE.
--- NOTE | 2019-02-16 11:08 | Infectious Diseases Prog Note ---
Assessment/Plan Assessment/Plan 68yo gentleman with PMH below presents with fever(100.1 is highest recorded in transfer packet) and worsened congestion from SNF. In the ED, pt was placed on oxygen then BiPAP but ultimately intubated. ID consulted for antimicrobial recommendation. Fever (Tmax 100.1) at custodial, SP Leukocytosis, hydrocortisone 01/25-02/02;' SP Lactic acidosis, SP Shock, SP MRSA PNA, sp rx COPD? CHF? thick secretions per nurse flu swab negative 01/24 CXR: Extensive opacities within upper lobes demonstrated. In addition there is generalized interstitial densities throughout both lung craig. 01/25 CXR: Bilateral infiltrates appear fairly extensive but unchanged. TTE with EF 30-35% 01/25 sputum cx: MRSA 01/25 urine legionella ag: P 01/27 CXR: Extensive infiltrates bilaterally. Some degree of a superimposed interstitial edema has improved since the last exam. Endotracheal tube and NG tube remain in satisfactory in position. 01/28 CXR: Extensive bilateral infiltrates are again demonstrated without change. Tubes and lines are stable. 01/28 sputum cx: MRSA 01/30 CXR: 1. Overall similar patchy opacities in the lungs, most prominently in the right upper lung and right mid and lower lung. Probable small bilateral pleural effusions. 2. Endotracheal tube terminates in the region of the lower thoracic aorta above the cristina. Enteric tube courses past the diaphragm and out of the [id number], but the sidehole is seen near the GE junction. 02/02 CXR: Interim removal of previously demonstrated nasogastric tube and endotracheal tube. Right arm PICC remains. Bilateral fairly extensive interstitial opacities persist, unchanged. There is a small left pleural effusion again demonstrated 02/04 CXR: Patchy interstitial prominence demonstrated bilaterally. Heart size is stable. 02/08 CXR: No significant change compared to the prior exam 02/15 CXR: Interstitial edema Possible UTI? new mcmahon placed in ED 01/25 UA 15-20 WBC 01/25 Ucx: NG Renal US: Nonobstructive stones in the left kidney demonstrated. Bilateral renal cysts. Limited evaluation due to body habitus. 01/25 BCx: ngtd 01/31 bcx: ngtd Failed Swallow evaluation 02/04 at risk for aspiration pneumonitis and pneumonia Thrombocytopenia No diarrhea HIV test negative MRSA screen positive RLE skin graft b/l LE heel pressure ulcers and sacral ulcer Tobacco abuse COPD HTN Kidney cancer OA CKD Anemia Schizophrenia PVD CHF Plan: Continue to monitor off abx as he is stable 02/11 SP Doxycycline #11 02/01 SP Azithromycin #5/5 for atypicals 01/31 Ertapenem #8 01/31 DC Amikacin and vancomycin #6 SP cefepime #1 SP flagyl #1 SP vancomycin #1 aspiration precaution, elevate HOB, oral care, frequent suction pulmonary toilet, chest PT DVT PPX discussed with RN Thank you for this consult. [facility] will continue to follow the patient with you. Subjective Allergies: Coded Allergies: No Known Allergies (Unverified , 01/24/19) Subjective afebrile no leukocytosis at 2L NC Objective Vital Signs Last 24 Hour Vital Signs Date Time Temp Pulse Resp B/P (MAP) Pulse Ox O2 Delivery O2 Flow Rate FiO2 02/16/19 09:00 Nasal Cannula 1.0 02/16/19 08:00 98.0 61 20 122/69 (86) 94 02/16/19 08:00 82 02/16/19 04:00 60 02/16/19 00:00 58 02/16/19 00:00 97.4 58 16 122/63 (82) 96 02/15/19 20:22 67 18 97 Nasal Cannula 2.0 28 02/15/19 20:22 97 Nasal Cannula 2.0 28 02/15/19 20:00 80 02/15/19 20:00 97.8 80 17 118/66 (83) 94 02/15/19 16:00 73 02/15/19 12:15 97.1 67 15 132/68 97 Nasal Cannula 2 02/15/19 12:00 58 12 132/69 94 Nasal Cannula 2 02/15/19 12:00 58 02/15/19 11:56 67 18 96 02/15/19 11:54 77 18 96 02/15/19 11:45 60 16 143/66 96 Nasal Cannula 2 02/15/19 11:35 67 18 130/66 96 Nasal Cannula 2 02/15/19 11:30 62 18 127/65 96 Nasal Cannula 2 02/15/19 11:25 97.3 60 15 123/57 96 Nasal Cannula 2 Height (Feet): 5 Height (Inches): 7.00 Weight (Pounds): 176 Objective Gen: NAD HEENT: anicteric sclera. CV: RRR. Resp: coarse. equal chest rise. Abd: soft. normoactive Bs+ Neuro: awake. appropriate Skin: RLE skin graft Laboratory Tests Test 02/16/19 07:15 White Blood Count 10.5 K/UL (4.8-10.8) Red Blood Count 3.64 M/UL (4.70-6.10) L Hemoglobin 11.0 G/DL (14.2-18.0) L Hematocrit 33.5 % (42.0-52.0) L Mean Corpuscular Volume 92 FL (80-99) Mean Corpuscular Hemoglobin 30.4 PG (27.0-31.0) Mean Corpuscular Hemoglobin Concent 33.0 G/DL (32.0-36.0) Red Cell Distribution Width 15.1 % (11.6-14.8) H Platelet Count 87 K/UL (150-450) L Mean Platelet Volume 6.4 FL (6.5-10.1) L Neutrophils (%) (Auto) % (45.0-75.0) Lymphocytes (%) (Auto) % (20.0-45.0) Monocytes (%) (Auto) % (1.0-10.0) Eosinophils (%) (Auto) % (0.0-3.0) Basophils (%) (Auto) % (0.0-2.0) Differential Total Cells Counted 100 Neutrophils % (Manual) 80 % (45-75) H Lymphocytes % (Manual) 16 % (20-45) L Monocytes % (Manual) 4 % (1-10) Eosinophils % (Manual) 0 % (0-3) Basophils % (Manual) 0 % (0-2) Band Neutrophils 0 % (0-8) Platelet Estimate Decreased L Platelet Morphology Normal Anisocytosis 1+ Sodium Level 141 MMOL/L (136-145) Potassium Level 4.2 MMOL/L (3.5-5.1) Chloride Level 106 MMOL/L (98-107) Carbon Dioxide Level 39 MMOL/L (21-32) H Blood Urea Nitrogen 13 mg/dL (7-18) Creatinine 1.2 MG/DL (0.55-1.30) Estimat Glomerular Filtration Rate > 60 mL/min (>60) Glucose Level 111 MG/DL (74-106) H Calcium Level 7.2 MG/DL (8.5-10.1) L Phosphorus Level 2.6 MG/DL (2.5-4.9) Magnesium Level 1.8 MG/DL (1.8-2.4) Total Bilirubin 0.8 MG/DL (0.2-1.0) Aspartate Amino Transf (AST/SGOT) 38 U/L (15-37) H Alanine Aminotransferase (ALT/SGPT) 59 U/L (12-78) Alkaline Phosphatase 140 U/L (46-116) H Total Protein 5.4 G/DL (6.4-8.2) L Albumin 2.0 G/DL (3.4-5.0) L Globulin 3.4 g/dL Albumin/Globulin Ratio 0.6 (1.0-2.7) L Current Medications Medications (Trade) Dose Ordered Sig/Ricardo Route PRN Reason Start Time Stop Time Status Last Admin Dose Admin Acetaminophen (Tylenol) 650 mg Q4H PRN ORAL T>100.5 02/13/19 16:00 02/23/19 19:59 Albuterol/ Ipratropium (Albuterol/ Ipratropium) 3 ml Q4H PRN HHN Shortness of Breath 02/13/19 17:00 02/18/19 16:59 Ascorbic Acid (Vitamin C) 250 mg TWICE A DAY ORAL 02/13/19 18:00 02/26/19 17:59 02/16/19 08:32 Chlorhexidine Gluconate (Roseanna-Hex 2%) 1 applic DAILY@2000 TOPIC 02/13/19 20:00 03/09/19 19:59 02/15/19 20:15 Dextrose (Dextrose 50%) 25 ml Q30M PRN IV Hypoglycemia 02/13/19 16:00 02/24/19 18:59 Dextrose (Dextrose 50%) 50 ml Q30M PRN IV Hypoglycemia 02/13/19 16:00 02/24/19 18:59 Dextrose/ Electrolytes 1,000 ml @ 50 mls/hr Q20H IV 02/14/19 09:30 03/16/19 09:29 02/16/19 02:30 Haloperidol Lactate (Haldol) 2 mg Q4H PRN IM Agitation 02/13/19 17:00 03/13/19 16:59 Hydrocortisone (Solu-CORTEF) 100 mg DAILY IV 02/16/19 09:00 03/07/19 21:59 02/16/19 08:32 Insulin Aspart (NovoLOG) EVERY 6 HOURS SUBQ 02/13/19 18:00 02/25/19 00:00 02/16/19 00:13 Midodrine (Pro-Amatine) 10 mg THREE TIMES A DAY ORAL 02/13/19 18:00 03/01/19 12:59 02/15/19 17:37 Pantoprazole (Protonix) 40 mg DAILY ORAL 02/13/19 17:30 03/15/19 17:29 02/16/19 08:32 Polyethylene Glycol (Miralax) 17 gm DAILYPRN PRN ORAL Constipation 02/13/19 20:00 02/23/19 19:59 Quetiapine Fumarate (SEROqueL) 50 mg Q12HR ORAL 02/13/19 21:00 03/13/19 10:14 02/16/19 08:33 Lesli Michaels M.D. Feb 16, 2019 11:08
[2019-02-16 12:00] VITALS: BP 117/66
--- NOTE | 2019-02-16 12:00 | NUR ---
NURSE NOTES: HELP INSULIN PATIENT IS NPO FOR PROCEDURE.
--- NOTE | 2019-02-16 12:09 | Cardiology Progress Note ---
Assessment/Plan Assessment/Plan 1. Septic syndrome. 2. Respiratory failure now extubated 3. Pneumonia. 4. Schizophrenia and dementia. 5. Urinary tract infection. 6. Renal failure. 7. Hypoalbuminemia/malnutrition. 8. Sinus tachycardia secondary to above resolved 9. Left ventricular systolic dysfunction. 10. sinus alanna renal fxn stable tele sinus / alanna avoid any neg chronotropic agents , sinus alanna only no pauses on tele bp seem fien s/p peg k supplement per dr villa Subjective ROS Limited/Unobtainable: Yes Objective Last 24 Hour Vital Signs Date Time Temp Pulse Resp B/P (MAP) Pulse Ox O2 Delivery O2 Flow Rate FiO2 02/16/19 09:00 Nasal Cannula 1.0 02/16/19 08:00 98.0 61 20 122/69 (86) 94 02/16/19 08:00 82 02/16/19 04:00 60 02/16/19 00:00 58 02/16/19 00:00 97.4 58 16 122/63 (82) 96 02/15/19 20:22 67 18 97 Nasal Cannula 2.0 28 02/15/19 20:22 97 Nasal Cannula 2.0 28 02/15/19 20:00 80 02/15/19 20:00 97.8 80 17 118/66 (83) 94 02/15/19 16:00 73 02/15/19 12:15 97.1 67 15 132/68 97 Nasal Cannula 2 General Appearance: alert Cardiovascular: normal rate Respiratory/Chest: rhonchi - right Abdomen: soft Extremities: no swelling Intake and Output 02/15/19 02/16/19 18:59 06:59 Intake Total 465 ml 700 ml Output Total 800 ml Balance -335 ml 700 ml Intake Oral 240 ml Free Water 200 ml IV Total 225 ml Tube Feeding 500 ml Output Urine Total 800 ml Laboratory Tests Test 02/16/19 07:15 White Blood Count 10.5 K/UL (4.8-10.8) Red Blood Count 3.64 M/UL (4.70-6.10) L Hemoglobin 11.0 G/DL (14.2-18.0) L Hematocrit 33.5 % (42.0-52.0) L Mean Corpuscular Volume 92 FL (80-99) Mean Corpuscular Hemoglobin 30.4 PG (27.0-31.0) Mean Corpuscular Hemoglobin Concent 33.0 G/DL (32.0-36.0) Red Cell Distribution Width 15.1 % (11.6-14.8) H Platelet Count 87 K/UL (150-450) L Mean Platelet Volume 6.4 FL (6.5-10.1) L Neutrophils (%) (Auto) % (45.0-75.0) Lymphocytes (%) (Auto) % (20.0-45.0) Monocytes (%) (Auto) % (1.0-10.0) Eosinophils (%) (Auto) % (0.0-3.0) Basophils (%) (Auto) % (0.0-2.0) Differential Total Cells Counted 100 Neutrophils % (Manual) 80 % (45-75) H Lymphocytes % (Manual) 16 % (20-45) L Monocytes % (Manual) 4 % (1-10) Eosinophils % (Manual) 0 % (0-3) Basophils % (Manual) 0 % (0-2) Band Neutrophils 0 % (0-8) Platelet Estimate Decreased L Platelet Morphology Normal Anisocytosis 1+ Sodium Level 141 MMOL/L (136-145) Potassium Level 4.2 MMOL/L (3.5-5.1) Chloride Level 106 MMOL/L (98-107) Carbon Dioxide Level 39 MMOL/L (21-32) H Blood Urea Nitrogen 13 mg/dL (7-18) Creatinine 1.2 MG/DL (0.55-1.30) Estimat Glomerular Filtration Rate > 60 mL/min (>60) Glucose Level 111 MG/DL (74-106) H Calcium Level 7.2 MG/DL (8.5-10.1) L Phosphorus Level 2.6 MG/DL (2.5-4.9) Magnesium Level 1.8 MG/DL (1.8-2.4) Total Bilirubin 0.8 MG/DL (0.2-1.0) Aspartate Amino Transf (AST/SGOT) 38 U/L (15-37) H Alanine Aminotransferase (ALT/SGPT) 59 U/L (12-78) Alkaline Phosphatase 140 U/L (46-116) H Total Protein 5.4 G/DL (6.4-8.2) L Albumin 2.0 G/DL (3.4-5.0) L Globulin 3.4 g/dL Albumin/Globulin Ratio 0.6 (1.0-2.7) L Sammy Helm MD Feb 16, 2019 12:09
--- NOTE | 2019-02-16 12:17 | NUR ---
NURSE NOTES: SPOKE TO TRAFFIC ENGINEERING DIRECTOR REGARDING PROCEDURE FOR PATIENT. ADVISED THAT BIOETHICS NOT REQUIRED, JUST NEED 2 DOCTORS TO DOCUMENT THAT THE PROCEDURE IS MEDICALLY NECESSARY. SPOKE TO DR ORTIZ WHO SAID HE WILL DOCUMENT THAT THE PROCEDURE IS NECESSARY FOR THE PATIENT. WILL FOLLOW UP WITH RADIOLOGY ONCE THE DOCTORS NOTE IS ENTERED INTO THE EMAR.
--- NOTE | 2019-02-16 12:29 | Pulmonology Progress Note ---
Assessment/Plan Problems: (1) Thrombocytopenia (2) DVT (deep venous thrombosis) (3) Septic shock Assessment & Plan: resolved (4) COPD (chronic obstructive pulmonary disease) (5) Chronic kidney disease (6) Malignant neoplasm of right kidney (7) PVD (peripheral vascular disease) (8) Schizophrenia (9) Encounter for PEG (percutaneous endoscopic gastrostomy) (10) cardiomyopathy with EF of 35% Assessment/Plan Gtube was reinserted today pt is slightly agitated respiratory treatment continue antipsychotic meds taper down steroids check electrolytes Ativan prn. Pt needs IVC filter because of DVT and concomitant thrombocytopenia. He doesn' t have anybody to sign his consents. Subjective ROS Limited/Unobtainable: No Constitutional: Reports: no symptoms HEENT: Repors: no symptoms Allergies: Coded Allergies: No Known Allergies (Unverified , 01/24/19) Objective Last 24 Hour Vital Signs Date Time Temp Pulse Resp B/P (MAP) Pulse Ox O2 Delivery O2 Flow Rate FiO2 02/16/19 09:00 Nasal Cannula 1.0 02/16/19 08:00 98.0 61 20 122/69 (86) 94 02/16/19 08:00 82 02/16/19 04:00 60 02/16/19 00:00 58 02/16/19 00:00 97.4 58 16 122/63 (82) 96 02/15/19 20:22 67 18 97 Nasal Cannula 2.0 28 02/15/19 20:22 97 Nasal Cannula 2.0 28 02/15/19 20:00 80 02/15/19 20:00 97.8 80 17 118/66 (83) 94 02/15/19 16:00 73 Intake and Output 02/15/19 02/16/19 18:59 06:59 Intake Total 465 ml 700 ml Output Total 800 ml Balance -335 ml 700 ml Intake Oral 240 ml Free Water 200 ml IV Total 225 ml Tube Feeding 500 ml Output Urine Total 800 ml General Appearance: WD/WN, no acute distress HEENT: normocephalic Respiratory/Chest: chest wall non-tender, lungs clear Cardiovascular: normal peripheral pulses, normal rate Abdomen: normal bowel sounds, soft, non tender Genitourinary: normal external genitalia Extremities: no clubbing Skin: no rash Laboratory Tests 02/16/19 07:15: White Blood Count 10.5, Red Blood Count 3.64L, Hemoglobin 11.0L, Hematocrit 33.5L, Mean Corpuscular Volume 92, Mean Corpuscular Hemoglobin 30.4, Mean Corpuscular Hemoglobin Concent 33.0, Red Cell Distribution Width 15.1H, Platelet Count 87L, Mean Platelet Volume 6.4L, Neutrophils (%) (Auto) , Lymphocytes (%) (Auto) , Monocytes (%) (Auto) , Eosinophils (%) (Auto) , Basophils (%) (Auto) , Differential Total Cells Counted 100, Neutrophils % ( Manual) 80H, Lymphocytes % (Manual) 16L, Monocytes % (Manual) 4, Eosinophils % ( Manual) 0, Basophils % (Manual) 0, Band Neutrophils 0, Platelet Estimate DecreasedL, Platelet Morphology Normal, Anisocytosis 1+, Sodium Level 141, Potassium Level 4.2, Chloride Level 106, Carbon Dioxide Level 39H, Blood Urea Nitrogen 13, Creatinine 1.2, Estimat Glomerular Filtration Rate > 60, Glucose Level 111H, Calcium Level 7.2L, Phosphorus Level 2.6, Magnesium Level 1.8, Total Bilirubin 0.8, Aspartate Amino Transf (AST/SGOT) 38H, Alanine Aminotransferase (ALT/SGPT) 59, Alkaline Phosphatase 140H, Total Protein 5.4L, Albumin 2.0L, Globulin 3.4, Albumin/Globulin Ratio 0.6L Current Medications Medications (Trade) Dose Ordered Sig/Ricardo Route PRN Reason Start Time Stop Time Status Last Admin Dose Admin Acetaminophen (Tylenol) 650 mg Q4H PRN ORAL T>100.5 02/13/19 16:00 02/23/19 19:59 Albuterol/ Ipratropium (Albuterol/ Ipratropium) 3 ml Q4H PRN HHN Shortness of Breath 02/13/19 17:00 02/18/19 16:59 Ascorbic Acid (Vitamin C) 250 mg TWICE A DAY ORAL 02/13/19 18:00 02/26/19 17:59 02/16/19 08:32 Chlorhexidine Gluconate (Roseanna-Hex 2%) 1 applic DAILY@1999 TOPIC 02/13/19 20:00 03/09/19 19:59 02/15/19 20:15 Dextrose (Dextrose 50%) 25 ml Q30M PRN IV Hypoglycemia 02/13/19 16:00 02/24/19 18:59 Dextrose (Dextrose 50%) 50 ml Q30M PRN IV Hypoglycemia 02/13/19 16:00 02/24/19 18:59 Dextrose/ Electrolytes 1,000 ml @ 50 mls/hr Q20H IV 02/14/19 09:30 03/16/19 09:29 02/16/19 02:30 Haloperidol Lactate (Haldol) 2 mg Q4H PRN IM Agitation 02/13/19 17:00 03/13/19 16:59 Hydrocortisone (Solu-CORTEF) 100 mg DAILY IV 02/16/19 09:00 03/07/19 21:59 02/16/19 08:32 Insulin Aspart (NovoLOG) EVERY 6 HOURS SUBQ 02/13/19 18:00 02/25/19 00:00 02/16/19 00:13 Midodrine (Pro-Amatine) 10 mg THREE TIMES A DAY ORAL 02/13/19 18:00 03/01/19 12:59 02/15/19 17:37 Pantoprazole (Protonix) 40 mg DAILY ORAL 02/13/19 17:30 03/15/19 17:29 02/16/19 08:32 Polyethylene Glycol (Miralax) 17 gm DAILYPRN PRN ORAL Constipation 02/13/19 20:00 02/23/19 19:59 Quetiapine Fumarate (SEROqueL) 50 mg Q12HR ORAL 02/13/19 21:00 03/13/19 10:14 02/16/19 08:33 Ron Anthony MD Feb 16, 2019 12:29
--- NOTE | 2019-02-16 12:41 | General Progress Note ---
Assessment/Plan Problem List: (1) Renal failure (ARF), acute on chronic ICD Codes: N17.9 - Acute kidney failure, unspecified; N18.9 - Chronic kidney disease, unspecified SNOMED: 852651489 (2) Sepsis ICD Codes: A41.9 - Sepsis, unspecified organism SNOMED: 80925839 Qualifiers: Qualified Codes: A41.9 - Sepsis, unspecified organism (3) Malignant neoplasm of right kidney ICD Codes: C64.1 - Malignant neoplasm of right kidney, except renal pelvis SNOMED: 703558326 (4) Acute respiratory failure ICD Codes: J96.00 - Acute respiratory failure, unspecified whether with hypoxia or hypercapnia SNOMED: 55431717 (5) PVD (peripheral vascular disease) ICD Codes: I73.9 - Peripheral vascular disease, unspecified SNOMED: 284405070 Status: stable, progressing Assessment/Plan: vent abx wound care cbc bmp am aru eval Subjective Constitutional: Reports: weakness Allergies: Coded Allergies: No Known Allergies (Unverified , 01/24/19) All Systems: reviewed and negative except above Subjective o2nc calm in bed Objective Last 24 Hour Vital Signs Date Time Temp Pulse Resp B/P (MAP) Pulse Ox O2 Delivery O2 Flow Rate FiO2 02/16/19 09:00 Nasal Cannula 1.0 02/16/19 08:00 98.0 61 20 122/69 (86) 94 02/16/19 08:00 82 02/16/19 04:00 60 02/16/19 00:00 58 02/16/19 00:00 97.4 58 16 122/63 (82) 96 02/15/19 20:22 67 18 97 Nasal Cannula 2.0 28 02/15/19 20:22 97 Nasal Cannula 2.0 28 02/15/19 20:00 80 02/15/19 20:00 97.8 80 17 118/66 (83) 94 02/15/19 16:00 73 Intake and Output 02/15/19 02/16/19 18:59 06:59 Intake Total 465 ml 700 ml Output Total 800 ml Balance -335 ml 700 ml Intake Oral 240 ml Free Water 200 ml IV Total 225 ml Tube Feeding 500 ml Output Urine Total 800 ml Laboratory Tests 02/16/19 07:15: White Blood Count 10.5, Red Blood Count 3.64L, Hemoglobin 11.0L, Hematocrit 33.5L, Mean Corpuscular Volume 92, Mean Corpuscular Hemoglobin 30.4, Mean Corpuscular Hemoglobin Concent 33.0, Red Cell Distribution Width 15.1H, Platelet Count 87L, Mean Platelet Volume 6.4L, Neutrophils (%) (Auto) , Lymphocytes (%) (Auto) , Monocytes (%) (Auto) , Eosinophils (%) (Auto) , Basophils (%) (Auto) , Differential Total Cells Counted 100, Neutrophils % ( Manual) 80H, Lymphocytes % (Manual) 16L, Monocytes % (Manual) 4, Eosinophils % ( Manual) 0, Basophils % (Manual) 0, Band Neutrophils 0, Platelet Estimate DecreasedL, Platelet Morphology Normal, Anisocytosis 1+, Sodium Level 141, Potassium Level 4.2, Chloride Level 106, Carbon Dioxide Level 39H, Blood Urea Nitrogen 13, Creatinine 1.2, Estimat Glomerular Filtration Rate > 60, Glucose Level 111H, Calcium Level 7.2L, Phosphorus Level 2.6, Magnesium Level 1.8, Total Bilirubin 0.8, Aspartate Amino Transf (AST/SGOT) 38H, Alanine Aminotransferase (ALT/SGPT) 59, Alkaline Phosphatase 140H, Total Protein 5.4L, Albumin 2.0L, Globulin 3.4, Albumin/Globulin Ratio 0.6L Height (Feet): 5 Height (Inches): 7.00 Weight (Pounds): 176 General Appearance: lethargic EENT: normal ENT inspection Neck: normal alignment Cardiovascular: normal peripheral pulses, normal rate, regular rhythm Respiratory/Chest: chest wall non-tender, lungs clear, normal breath sounds Abdomen: normal bowel sounds, non tender, soft Extremities: normal inspection Edema: no edema noted Arm (L), no edema noted Arm (R), no edema noted Leg (L), no edema noted Leg (R), no edema noted Pedal (L), no edema noted Pedal (R), no edema noted Generalized Neurologic: motor weakness Skin: normal pigmentation, warm/dry Corey Short DO Feb 16, 2019 12:41
--- NOTE | 2019-02-16 13:17 | NUR ---
NURSE NOTES: ORDER FOR IVC FILTER CONFIRMED BY [facility]. CALLED RADIOLOGY TO NOTIFY AND GOT TRANSFERRED TO EXTENSION 1066, HAVE CALLED MULTIPLE TIMES AND AM NOT ABLE TO GET HOLD OF ANYONE.
--- NOTE | 2019-02-16 14:21 | Surgery Progress Note ---
Surgery Progress Note Subjective Additional Comments agitated, pulling at lines Objective Last 24 Hour Vital Signs Date Time Temp Pulse Resp B/P (MAP) Pulse Ox O2 Delivery O2 Flow Rate FiO2 02/16/19 12:00 97.7 68 18 117/66 (83) 95 02/16/19 09:00 Nasal Cannula 1.0 02/16/19 08:00 98.0 61 20 122/69 (86) 94 02/16/19 08:00 82 02/16/19 04:00 60 02/16/19 00:00 58 02/16/19 00:00 97.4 58 16 122/63 (82) 96 02/15/19 20:22 67 18 97 Nasal Cannula 2.0 28 02/15/19 20:22 97 Nasal Cannula 2.0 28 02/15/19 20:00 80 02/15/19 20:00 97.8 80 17 118/66 (83) 94 02/15/19 16:00 73 I&O Intake and Output 02/15/19 02/16/19 18:59 06:59 Intake Total 465 ml 700 ml Output Total 800 ml Balance -335 ml 700 ml Intake Oral 240 ml Free Water 200 ml IV Total 225 ml Tube Feeding 500 ml Output Urine Total 800 ml Dressing: saturated Wound: other Drains: other Cardiovascular: RSR Respiratory: decreased breath sounds Abdomen: soft, present bowel sounds, non-distended Extremities: no cyanosis, other Laboratory Tests Test 02/16/19 07:15 White Blood Count 10.5 K/UL (4.8-10.8) Red Blood Count 3.64 M/UL (4.70-6.10) L Hemoglobin 11.0 G/DL (14.2-18.0) L Hematocrit 33.5 % (42.0-52.0) L Mean Corpuscular Volume 92 FL (80-99) Mean Corpuscular Hemoglobin 30.4 PG (27.0-31.0) Mean Corpuscular Hemoglobin Concent 33.0 G/DL (32.0-36.0) Red Cell Distribution Width 15.1 % (11.6-14.8) H Platelet Count 87 K/UL (150-450) L Mean Platelet Volume 6.4 FL (6.5-10.1) L Neutrophils (%) (Auto) % (45.0-75.0) Lymphocytes (%) (Auto) % (20.0-45.0) Monocytes (%) (Auto) % (1.0-10.0) Eosinophils (%) (Auto) % (0.0-3.0) Basophils (%) (Auto) % (0.0-2.0) Differential Total Cells Counted 100 Neutrophils % (Manual) 80 % (45-75) H Lymphocytes % (Manual) 16 % (20-45) L Monocytes % (Manual) 4 % (1-10) Eosinophils % (Manual) 0 % (0-3) Basophils % (Manual) 0 % (0-2) Band Neutrophils 0 % (0-8) Platelet Estimate Decreased L Platelet Morphology Normal Anisocytosis 1+ Sodium Level 141 MMOL/L (136-145) Potassium Level 4.2 MMOL/L (3.5-5.1) Chloride Level 106 MMOL/L (98-107) Carbon Dioxide Level 39 MMOL/L (21-32) H Blood Urea Nitrogen 13 mg/dL (7-18) Creatinine 1.2 MG/DL (0.55-1.30) Estimat Glomerular Filtration Rate > 60 mL/min (>60) Glucose Level 111 MG/DL (74-106) H Calcium Level 7.2 MG/DL (8.5-10.1) L Phosphorus Level 2.6 MG/DL (2.5-4.9) Magnesium Level 1.8 MG/DL (1.8-2.4) Total Bilirubin 0.8 MG/DL (0.2-1.0) Aspartate Amino Transf (AST/SGOT) 38 U/L (15-37) H Alanine Aminotransferase (ALT/SGPT) 59 U/L (12-78) Alkaline Phosphatase 140 U/L (46-116) H Total Protein 5.4 G/DL (6.4-8.2) L Albumin 2.0 G/DL (3.4-5.0) L Globulin 3.4 g/dL Albumin/Globulin Ratio 0.6 (1.0-2.7) L Plan Problems: (1) Sepsis Assessment & Plan: afebrile, HD improving HR -noted cardiology input leukocytosis lactic acidosis resolved slowly improving -IV abx as per ID -trend labs if cont to fail will discuss with team about peg as currently he is fairly alert discussed with GI. 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 Non-blanching erythema without induration noted to sacrum ,Right and Left buttocks. Scattered areas that are darker and maroon in color noted within base of wound. Scrotum is also erythematous. Unstageable pressure injury noted to Left heel. Base of wound is 100% necrotic but soft. Erythematous margins with surrounding non-blanching erythema.(L)3.2cm x (W)3cm. no drainage Right heel is boggy with non-blanching erythema.. Keloid scar noted distal R tibia. Partial thickness ulcer noted to dorsal R foot. Base of wound is moist and viable. Small amt serous exudate noted. Scattered small dry scabs noted to dorsal R foot. Non-blanching erythema without induration sacrum. R heel boggy but blanchable. Unstageable pressure injury L heel. Soft necrosis with detached borders. Scattered Slough, erythema along borders. Mild odor noted.(L)2.4cm x (W)3.5cm. Non-blanching erythema with fluctuance periwound.Wound Tx. are effective and continued as ordered. All wound prevention protocols continued as care-planned. Tx.Plan: Swab Dorsal R foot and R heel with Betadine. Cover with Optifoam drsg. Change every 3 days and prn. Apply Moisture Barrier Paste to buttocks. Cover sacrum with Optifoam drsg. Change every 3 days and prn. Apply Cavilon Skin Barrier to L heel.Cover with Optifoam drsg. Change every 7 days and prn. APM/JELLY mattress. Reposition at least every 2hours or as tolerated. Off-load heels with pillow. Nutritional Optimization Will monitor while in critical condition DAILY ESTIMATED NEEDS: Needs based on Critical care, sepsis, wounds 69kg 22-30 kcals/kg 8240-1827 total kcals 1.25-2 g protein/kg 86-138 g total protein 25-30 mL/kg 6039-6521 total fluid mLs NUTRITION DIAGNOSIS: Increased kcal and pro needs r/t sepsis, wound healing, and underweight status as evidenced by pt w respiratory distress now intubated, critically elev WBC (*29.7), elev BG (200's), w/ multiple wounds (refer to eval), pt is @88% if [place] Body Weight. CURRENT TF: Glucerna 1.2 @30ml ENTERAL NUTRITION RECOMMENDATIONS: VITAL AF 1.2 @60ml/hr x24 hrs to provide 1440ml, 1728 kcal, 108g pro, 1168ml free H2O - WITH HEMODYNAMIC STABILITY, rec TF change to VITAL 1.2 to better meet est needs. Start @20ml/hr for 6 hrs. Advance as tolerated 10ml/hr q4-6 hrs to goal. - Flush per . HOB over 30 degrees If pt remains on pressor support, rec trophic feeds of Vital 1.2 @5-10ml/hr to maintain gut integrity. ------ ADDITIONAL RECOMMENDATIONS: 1) Per SNF: HT 71 inches, 152 lbs (69.1kg) 2) Wound care: Add DANIELA in 4oz water BID via OGT + VIT C 250mg BID (f/up w/ WC specialist) 3) Monitor lytes daily, replete as needed 4) Daily calibrated bed scale wts Mauricio Anne Feb 16, 2019 14:21
--- NOTE | 2019-02-16 14:44 | Nephrology Progress Note ---
Assessment/Plan Problem List: (1) Renal failure (ARF), acute on chronic (2) Acute respiratory failure (3) Septic shock (4) Bradyarrhythmia Assessment Renal failure- Likely acute on Chronic- Cr lower Acute respiratory failure- intubated on Vent Septic Shock- On pressors COPD PVD Schizophrenia Plan not eating - need PEG, due today NGT could not be inserted in past trials K and Phos IV as needed Haldol PRN Now ( 02/02) extubated- tolerating well pulmonary support aim to taper dopamine stop IV fluid renal dose dopamin for low HR K supplement down on hydration One dose IV Lasix mag and Phos and K supplement as needed 2D Echo Low Ej Fx - Global Hypokinesis Avoid nephrotoxics afterload reduction monitor renal parameters urine studies ADRIAN IMPRESSION: Nonobstructive stones in the left kidney demonstrated. Bilateral renal cysts. Subjective ROS Limited/Unobtainable: No Constitutional: Reports: malaise Objective Objective Last 24 Hour Vital Signs Date Time Temp Pulse Resp B/P (MAP) Pulse Ox O2 Delivery O2 Flow Rate FiO2 02/16/19 12:00 62 02/16/19 12:00 97.7 68 18 117/66 (83) 95 02/16/19 09:00 Nasal Cannula 1.0 02/16/19 08:00 98.0 61 20 122/69 (86) 94 02/16/19 08:00 82 02/16/19 04:00 60 02/16/19 00:00 58 02/16/19 00:00 97.4 58 16 122/63 (82) 96 02/15/19 20:22 67 18 97 Nasal Cannula 2.0 28 02/15/19 20:22 97 Nasal Cannula 2.0 28 02/15/19 20:00 80 02/15/19 20:00 97.8 80 17 118/66 (83) 94 02/15/19 16:00 73 Intake and Output 02/15/19 02/16/19 18:59 06:59 Intake Total 465 ml 700 ml Output Total 800 ml Balance -335 ml 700 ml Intake Oral 240 ml Free Water 200 ml IV Total 225 ml Tube Feeding 500 ml Output Urine Total 800 ml Laboratory Tests 02/16/19 07:15: White Blood Count 10.5, Red Blood Count 3.64L, Hemoglobin 11.0L, Hematocrit 33.5L, Mean Corpuscular Volume 92, Mean Corpuscular Hemoglobin 30.4, Mean Corpuscular Hemoglobin Concent 33.0, Red Cell Distribution Width 15.1H, Platelet Count 87L, Mean Platelet Volume 6.4L, Neutrophils (%) (Auto) , Lymphocytes (%) (Auto) , Monocytes (%) (Auto) , Eosinophils (%) (Auto) , Basophils (%) (Auto) , Differential Total Cells Counted 100, Neutrophils % ( Manual) 80H, Lymphocytes % (Manual) 16L, Monocytes % (Manual) 4, Eosinophils % ( Manual) 0, Basophils % (Manual) 0, Band Neutrophils 0, Platelet Estimate DecreasedL, Platelet Morphology Normal, Anisocytosis 1+, Sodium Level 141, Potassium Level 4.2, Chloride Level 106, Carbon Dioxide Level 39H, Blood Urea Nitrogen 13, Creatinine 1.2, Estimat Glomerular Filtration Rate > 60, Glucose Level 111H, Calcium Level 7.2L, Phosphorus Level 2.6, Magnesium Level 1.8, Total Bilirubin 0.8, Aspartate Amino Transf (AST/SGOT) 38H, Alanine Aminotransferase (ALT/SGPT) 59, Alkaline Phosphatase 140H, Total Protein 5.4L, Albumin 2.0L, Globulin 3.4, Albumin/Globulin Ratio 0.6L Height (Feet): 5 Height (Inches): 7.00 Weight (Pounds): 176 General Appearance: no apparent distress Cardiovascular: normal rate Respiratory/Chest: lungs clear, other - GT Abdomen: soft Objective no change Bienvenido Gonzalez MD Feb 16, 2019 14:44
[2019-02-16 15:35] VITALS: BP 125/70
--- NOTE | 2019-02-16 15:43 | NUR ---
NURSE NOTES: CALLED YET AGAIN TO FOLLOW UP REGARDING THE PATIENT'S PROCEDURE. HAVE BEEN NOTIFIED THAT THE STAFF FINISHED AT 1530 SO THE PROCEDURE IS BEING PUSHED UNTIL TOMORROW. WILL RESTART THE PATIENTS GTUBE FEEDING.
--- NOTE | 2019-02-16 16:16 | NUR ---
NURSE NOTES: CONTACTED DR CALABRESE TO UPDATE HIM THAT THE PROCEDURE WAS NOT DONE TODAY.
--- NOTE | 2019-02-16 19:35 | NUR ---
HAND-OFF: Report given to EUGENIA LAGUNA.
--- NOTE | 2019-02-16 19:48 | NUR ---
NURSE NOTES: Pt received from EUGENIA Ribera alert and oriented x4 with no acute s/s of distress noted. IV site asymptoamtic and patent. Bed in lowest position, call light and belongings within reach. Costello catheter draining to clear and yellow urine.
[2019-02-16] MEDS: Dyna-Hex 2% Top Sol 2oz TOPIC SCH (21:11)
[2019-02-17] VITALS: BP 126/68
[2019-02-17] MEDS: NovoLOG Insulin Flexpen SUBQ SCH ×4 (00:22→17:47)
--- NOTE | 2019-02-17 02:30 | Progress Note ---
DATE: 02/15/2019 SUBJECTIVE: This is a 68-year-old male patient who is in telemetry unit. He still has sepsis and dehydration, psychomotor agitation, mood lability, agitation, and irritability. That is why, his attending physician continues to request daily psychiatric consultation. MENTAL STATUS EXAMINATION: This is a 68-year-old male. Appearance is disheveled. Attitude, irritable and agitated. Intellect, poor. Mood, depressed and anxious. Motor activity, psychomotor agitation. Attention span is poor. Orientation x2. Speech is nonsensical. Thought process, disorganized and illogical. Insight and judgment is poor. DIAGNOSIS: Paranoid schizophrenia with acute exacerbation. PLAN: Treat this patient with Seroquel 50 mg q.12 hours and he will continue to be followed by Psychiatry throughout his hospital course. A 20 minutes of behavioral management provided. A 20 minutes of reality-based supportive psychotherapy provided. Chart reviewed. Discussed with staff. Seen and assessed at bedside. Stacie Paige M.D. DR: MEY JOB#: [id number] CC:
[2019-02-17 04:00] VITALS: BP 129/64
--- NOTE | 2019-02-17 07:10 | NUR ---
HAND-OFF: Report given to EUGENIA Espinosa. Plan of care endorsed.
[2019-02-17 07:14] LABS: HEMATOCRIT 30.6 % (42.0-52.0); MEAN CORPUSCULAR VOLUME 91 FL (80-99); PLATELET COUNT 71 K/UL (150-450); RED BLOOD COUNT 3.36 M/UL (4.70-6.10); RED CELL DISTRIBUTION WIDTH 14.5 % (11.6-14.8); WHITE BLOOD COUNT 10.6 K/UL (4.8-10.8)
--- NOTE | 2019-02-17 07:20 | NUR ---
NURSE NOTES: I received the patient resting in bed. Patient is alert to name. Patient's g-tube flushing well. Patient does not display any signs of distress or SOB. Bed in the lowest position, bed locked and call light within reach.
[2019-02-17 08:00] VITALS: BP 105/60
[2019-02-17 08:20] LABS: ANION GAP 0 mmol/L (5-15); BLOOD UREA NITROGEN 15 mg/dL (7-18); CALCIUM 7.4 MG/DL (8.5-10.1); CARBON DIOXIDE 34 MMOL/L (21-32); CHLORIDE 106 MMOL/L (98-107); PHOSPHORUS 1.8 MG/DL (2.5-4.9); POTASSIUM 4.4 MMOL/L (3.5-5.1); SODIUM 140 MMOL/L (136-145)
--- NOTE | 2019-02-17 08:46 | General Progress Note ---
Assessment/Plan Problem List: (1) DM (diabetes mellitus) ICD Codes: E11.9 - Type 2 diabetes mellitus without complications SNOMED: 57464668 (2) cardiomyopathy with EF of 35% (3) Encounter for PEG (percutaneous endoscopic gastrostomy) ICD Codes: Z43.1 - Encounter for attention to gastrostomy SNOMED: 719529145, 605005898 (4) Dysphagia ICD Codes: R13.10 - Dysphagia, unspecified SNOMED: 91219661, 124162747 (5) Bradyarrhythmia ICD Codes: I49.8 - Other specified cardiac arrhythmias SNOMED: 409904927 (6) Systolic heart failure ICD Codes: I50.20 - Unspecified systolic (congestive) heart failure SNOMED: 280074528 (7) Schizophrenia ICD Codes: F20.9 - Schizophrenia, unspecified SNOMED: 23012025 (8) COPD (chronic obstructive pulmonary disease) ICD Codes: J44.9 - Chronic obstructive pulmonary disease, unspecified SNOMED: 40465322 Qualifiers: Qualified Codes: J44.9 - Chronic obstructive pulmonary disease, unspecified Status: stable, progressing Assessment/Plan: s/p PEG placement on GTF monitor labs dc planning per primary team Subjective ROS Limited/Unobtainable: No Allergies: Coded Allergies: No Known Allergies (Unverified , 01/24/19) Objective Last 24 Hour Vital Signs Date Time Temp Pulse Resp B/P (MAP) Pulse Ox O2 Delivery O2 Flow Rate FiO2 02/17/19 08:00 97.9 64 20 105/60 (75) 93 02/17/19 04:00 98.0 72 18 129/64 (85) 97 02/17/19 04:00 62 02/17/19 00:00 55 02/17/19 00:00 98.0 68 18 126/68 (87) 95 02/16/19 21:00 Nasal Cannula 1.0 02/16/19 20:16 73 18 96 Nasal Cannula 2.0 28 02/16/19 20:16 96 Nasal Cannula 2.0 28 02/16/19 20:00 67 02/16/19 16:00 58 02/16/19 15:35 97.2 79 18 125/70 (88) 96 02/16/19 12:00 62 02/16/19 12:00 97.7 68 18 117/66 (83) 95 02/16/19 09:00 Nasal Cannula 1.0 Intake and Output 02/16/19 02/17/19 19:00 07:00 Intake Total 150 ml 600 ml Output Total 1300 ml Balance -1150 ml 600 ml Free Water 100 ml 100 ml IV Total 250 ml Tube Feeding 50 ml 250 ml Output Urine Total 1300 ml Laboratory Tests 02/17/19 05:00: White Blood Count 10.6, Red Blood Count 3.36L, Hemoglobin 10.0L, Hematocrit 30.6L, Mean Corpuscular Volume 91, Mean Corpuscular Hemoglobin 29.8, Mean Corpuscular Hemoglobin Concent 32.6, Red Cell Distribution Width 14.5, Platelet Count 71L, Mean Platelet Volume 6.9, Neutrophils (%) (Auto) , Lymphocytes (%) ( Auto) , Monocytes (%) (Auto) , Eosinophils (%) (Auto) , Basophils (%) (Auto) , Neutrophils % (Manual) [Pending], Lymphocytes % (Manual) [Pending], Platelet Estimate [Pending], Platelet Morphology [Pending], Sodium Level 140, Potassium Level 4.4, Chloride Level 106, Carbon Dioxide Level 34H, Anion Gap 0L, Blood Urea Nitrogen 15, Creatinine 1.0, Estimat Glomerular Filtration Rate > 60, Glucose Level 94, Calcium Level 7.4L, Phosphorus Level 1.8L, Magnesium Level 1.8 Height (Feet): 5 Height (Inches): 7.00 Weight (Pounds): 164 General Appearance: lethargic EENT: normal ENT inspection Neck: supple Cardiovascular: normal rate Respiratory/Chest: decreased breath sounds Abdomen: normal bowel sounds, non tender, soft Extremities: non-tender Leonel Valderrama MD Feb 17, 2019 08:46
[2019-02-17] MEDS: Hydrocortisone 100mg Inj IV SCH (08:57)
[2019-02-17] MEDS: Midodrine 10mg tab ORAL SCH ×3 (08:57→17:42)
[2019-02-17] MEDS: Ascorbic Acid 500mg tab ORAL SCH ×2 (08:58→17:42)
--- NOTE | 2019-02-17 09:09 | General Progress Note ---
Assessment/Plan Problem List: (1) Renal failure (ARF), acute on chronic ICD Codes: N17.9 - Acute kidney failure, unspecified; N18.9 - Chronic kidney disease, unspecified SNOMED: 060278231 (2) Sepsis ICD Codes: A41.9 - Sepsis, unspecified organism SNOMED: 29796852 Qualifiers: Qualified Codes: A41.9 - Sepsis, unspecified organism (3) Malignant neoplasm of right kidney ICD Codes: C64.1 - Malignant neoplasm of right kidney, except renal pelvis SNOMED: 097057394 (4) Acute respiratory failure ICD Codes: J96.00 - Acute respiratory failure, unspecified whether with hypoxia or hypercapnia SNOMED: 56696692 (5) PVD (peripheral vascular disease) ICD Codes: I73.9 - Peripheral vascular disease, unspecified SNOMED: 198909747 Status: stable, progressing Assessment/Plan: vent abx wound care cbc bmp am dc plan snf Subjective Constitutional: Reports: weakness Allergies: Coded Allergies: No Known Allergies (Unverified , 01/24/19) All Systems: reviewed and negative except above Subjective o2nc calm in bed Objective Last 24 Hour Vital Signs Date Time Temp Pulse Resp B/P (MAP) Pulse Ox O2 Delivery O2 Flow Rate FiO2 02/17/19 08:00 97.9 64 20 105/60 (75) 93 02/17/19 04:00 98.0 72 18 129/64 (85) 97 02/17/19 04:00 62 02/17/19 00:00 55 02/17/19 00:00 98.0 68 18 126/68 (87) 95 02/16/19 21:00 Nasal Cannula 1.0 02/16/19 20:16 73 18 96 Nasal Cannula 2.0 28 02/16/19 20:16 96 Nasal Cannula 2.0 28 02/16/19 20:00 67 02/16/19 16:00 58 02/16/19 15:35 97.2 79 18 125/70 (88) 96 02/16/19 12:00 62 02/16/19 12:00 97.7 68 18 117/66 (83) 95 Intake and Output 02/16/19 02/17/19 19:00 07:00 Intake Total 150 ml 600 ml Output Total 1300 ml Balance -1150 ml 600 ml Free Water 100 ml 100 ml IV Total 250 ml Tube Feeding 50 ml 250 ml Output Urine Total 1300 ml Laboratory Tests 02/17/19 05:00: White Blood Count 10.6, Red Blood Count 3.36L, Hemoglobin 10.0L, Hematocrit 30.6L, Mean Corpuscular Volume 91, Mean Corpuscular Hemoglobin 29.8, Mean Corpuscular Hemoglobin Concent 32.6, Red Cell Distribution Width 14.5, Platelet Count 71L, Mean Platelet Volume 6.9, Neutrophils (%) (Auto) , Lymphocytes (%) ( Auto) , Monocytes (%) (Auto) , Eosinophils (%) (Auto) , Basophils (%) (Auto) , Neutrophils % (Manual) [Pending], Lymphocytes % (Manual) [Pending], Platelet Estimate [Pending], Platelet Morphology [Pending], Sodium Level 140, Potassium Level 4.4, Chloride Level 106, Carbon Dioxide Level 34H, Anion Gap 0L, Blood Urea Nitrogen 15, Creatinine 1.0, Estimat Glomerular Filtration Rate > 60, Glucose Level 94, Calcium Level 7.4L, Phosphorus Level 1.8L, Magnesium Level 1.8 Height (Feet): 5 Height (Inches): 7.00 Weight (Pounds): 164 General Appearance: lethargic EENT: normal ENT inspection Neck: normal alignment Cardiovascular: normal peripheral pulses, normal rate, regular rhythm Respiratory/Chest: chest wall non-tender, lungs clear, normal breath sounds Abdomen: normal bowel sounds, non tender, soft Extremities: normal inspection Edema: no edema noted Arm (L), no edema noted Arm (R), no edema noted Leg (L), no edema noted Leg (R), no edema noted Pedal (L), no edema noted Pedal (R), no edema noted Generalized Neurologic: motor weakness Skin: normal pigmentation, warm/dry Corey Short DO Feb 17, 2019 09:09
--- NOTE | 2019-02-17 10:22 | Nephrology Progress Note ---
Assessment/Plan Problem List: (1) Renal failure (ARF), acute on chronic (2) Acute respiratory failure (3) Septic shock (4) Bradyarrhythmia Assessment Renal failure- Likely acute on Chronic- Cr lower Acute respiratory failure- intubated on Vent Septic Shock- On pressors COPD PVD Schizophrenia Plan not eating - need PEG, due today NGT could not be inserted in past trials K and Phos IV as needed Haldol PRN Now ( 02/02) extubated- tolerating well pulmonary support aim to taper dopamine stop IV fluid renal dose dopamin for low HR K supplement down on hydration One dose IV Lasix mag and Phos and K supplement as needed 2D Echo Low Ej Fx - Global Hypokinesis Avoid nephrotoxics afterload reduction monitor renal parameters urine studies ADRIAN IMPRESSION: Nonobstructive stones in the left kidney demonstrated. Bilateral renal cysts. Subjective ROS Limited/Unobtainable: No Constitutional: Reports: malaise Objective Objective Last 24 Hour Vital Signs Date Time Temp Pulse Resp B/P (MAP) Pulse Ox O2 Delivery O2 Flow Rate FiO2 02/17/19 09:00 Nasal Cannula 1.0 02/17/19 08:00 97.9 64 20 105/60 (75) 93 02/17/19 07:41 62 02/17/19 04:00 98.0 72 18 129/64 (85) 97 02/17/19 04:00 62 02/17/19 00:00 55 02/17/19 00:00 98.0 68 18 126/68 (87) 95 02/16/19 21:00 Nasal Cannula 1.0 02/16/19 20:16 73 18 96 Nasal Cannula 2.0 28 02/16/19 20:16 96 Nasal Cannula 2.0 28 02/16/19 20:00 67 02/16/19 16:00 58 02/16/19 15:35 97.2 79 18 125/70 (88) 96 02/16/19 12:00 62 02/16/19 12:00 97.7 68 18 117/66 (83) 95 Intake and Output 02/16/19 02/17/19 19:00 07:00 Intake Total 150 ml 600 ml Output Total 1300 ml Balance -1150 ml 600 ml Free Water 100 ml 100 ml IV Total 250 ml Tube Feeding 50 ml 250 ml Output Urine Total 1300 ml Laboratory Tests 02/17/19 05:00: White Blood Count 10.6, Red Blood Count 3.36L, Hemoglobin 10.0L, Hematocrit 30.6L, Mean Corpuscular Volume 91, Mean Corpuscular Hemoglobin 29.8, Mean Corpuscular Hemoglobin Concent 32.6, Red Cell Distribution Width 14.5, Platelet Count 71L, Mean Platelet Volume 6.9, Neutrophils (%) (Auto) , Lymphocytes (%) ( Auto) , Monocytes (%) (Auto) , Eosinophils (%) (Auto) , Basophils (%) (Auto) , Neutrophils % (Manual) [Pending], Lymphocytes % (Manual) [Pending], Platelet Estimate [Pending], Platelet Morphology [Pending], Sodium Level 140, Potassium Level 4.4, Chloride Level 106, Carbon Dioxide Level 34H, Anion Gap 0L, Blood Urea Nitrogen 15, Creatinine 1.0, Estimat Glomerular Filtration Rate > 60, Glucose Level 94, Calcium Level 7.4L, Phosphorus Level 1.8L, Magnesium Level 1.8 Height (Feet): 5 Height (Inches): 7.00 Weight (Pounds): 164 General Appearance: no apparent distress Objective no change Bienvenido Gonzalez MD Feb 17, 2019 10:22
--- NOTE | 2019-02-17 10:25 | Diagnostic Imaging Report ---
APPROVED REPORT CPT Code: 92991 Present Symptoms Comments: Screening Weakness RIGHT LEG: Venous imaging reveals a patent deep venous system. There is no evidence of thrombus within the femoral, popliteal or tibial segments. The greater saphenous vein is also within normal limits. Doppler indicates normal spontaneous flow within these segments. LEFT LEG: Venous imaging reveals acute thrombus in the superficial femoral vein. Imaging also reveals patency of the common femoral femoral, popliteal and calf veins. Greater saphenous vein within normal limits. RN was notified of abnormal results at 1140 hours.
[2019-02-17] MEDS ORDERED: Phospha 250 Neutral tab ORAL SCH (10:30)
[2019-02-17] MEDS ORDERED: LORazepam 1mg tab ORAL PRN (11:45)
[2019-02-17 12:00] VITALS: BP 103/56
--- NOTE | 2019-02-17 12:41 | Infectious Diseases Prog Note ---
Assessment/Plan Assessment/Plan 68yo gentleman with PMH below presents with fever(100.1 is highest recorded in transfer packet) and worsened congestion from SNF. In the ED, pt was placed on oxygen then BiPAP but ultimately intubated. ID consulted for antimicrobial recommendation. Fever (Tmax 100.1) at skilled nursing, SP Leukocytosis, hydrocortisone 01/25-02/02;' SP Lactic acidosis, SP Shock, SP MRSA PNA, sp rx COPD? CHF? thick secretions per nurse flu swab negative 01/24 CXR: Extensive opacities within upper lobes demonstrated. In addition there is generalized interstitial densities throughout both lung craig. 01/25 CXR: Bilateral infiltrates appear fairly extensive but unchanged. TTE with EF 30-35% 01/25 sputum cx: MRSA 01/25 urine legionella ag: P 01/27 CXR: Extensive infiltrates bilaterally. Some degree of a superimposed interstitial edema has improved since the last exam. Endotracheal tube and NG tube remain in satisfactory in position. 01/28 CXR: Extensive bilateral infiltrates are again demonstrated without change. Tubes and lines are stable. 01/28 sputum cx: MRSA 01/30 CXR: 1. Overall similar patchy opacities in the lungs, most prominently in the right upper lung and right mid and lower lung. Probable small bilateral pleural effusions. 2. Endotracheal tube terminates in the region of the lower thoracic aorta above the cristina. Enteric tube courses past the diaphragm and out of the [id number], but the sidehole is seen near the GE junction. 02/02 CXR: Interim removal of previously demonstrated nasogastric tube and endotracheal tube. Right arm PICC remains. Bilateral fairly extensive interstitial opacities persist, unchanged. There is a small left pleural effusion again demonstrated 02/04 CXR: Patchy interstitial prominence demonstrated bilaterally. Heart size is stable. 02/08 CXR: No significant change compared to the prior exam 02/15 CXR: Interstitial edema Possible UTI? new mmcahon placed in ED 01/25 UA 15-20 WBC 01/25 Ucx: NG Renal US: Nonobstructive stones in the left kidney demonstrated. Bilateral renal cysts. Limited evaluation due to body habitus. 01/25 BCx: ngtd 01/31 bcx: ngtd Failed Swallow evaluation 02/04 at risk for aspiration pneumonitis and pneumonia Thrombocytopenia No diarrhea HIV test negative MRSA screen positive RLE skin graft b/l LE heel pressure ulcers and sacral ulcer Tobacco abuse COPD HTN Kidney cancer OA CKD Anemia Schizophrenia PVD CHF Plan: Continue to monitor off abx as he is stable 02/11 SP Doxycycline #11 02/01 SP Azithromycin #5/5 for atypicals 01/31 Ertapenem #8 01/31 DC Amikacin and vancomycin #6 SP cefepime #1 SP flagyl #1 SP vancomycin #1 aspiration precaution, elevate HOB, oral care, frequent suction pulmonary toilet, chest PT DVT PPX discussed with RN Thank you for this consult. [facility] will continue to follow the patient with you. Subjective Allergies: Coded Allergies: No Known Allergies (Unverified , 01/24/19) Subjective afebrile no leukocytosis at 2L NC Objective Vital Signs Last 24 Hour Vital Signs Date Time Temp Pulse Resp B/P (MAP) Pulse Ox O2 Delivery O2 Flow Rate FiO2 02/17/19 12:00 97.0 79 20 103/56 (72) 93 02/17/19 11:37 95 Nasal Cannula 2.0 28 02/17/19 11:36 77 20 95 Nasal Cannula 2.0 28 02/17/19 09:00 Nasal Cannula 1.0 02/17/19 08:00 97.9 64 20 105/60 (75) 93 02/17/19 07:41 62 02/17/19 04:00 98.0 72 18 129/64 (85) 97 02/17/19 04:00 62 02/17/19 00:00 55 02/17/19 00:00 98.0 68 18 126/68 (87) 95 02/16/19 21:00 Nasal Cannula 1.0 02/16/19 20:16 73 18 96 Nasal Cannula 2.0 28 02/16/19 20:16 96 Nasal Cannula 2.0 28 02/16/19 20:00 67 02/16/19 16:00 58 02/16/19 15:35 97.2 79 18 125/70 (88) 96 Height (Feet): 5 Height (Inches): 7.00 Weight (Pounds): 164 Objective Gen: NAD HEENT: anicteric sclera. CV: RRR. Resp: coarse. equal chest rise. Abd: soft. normoactive Bs+ Neuro: awake. appropriate Skin: RLE skin graft Laboratory Tests Test 02/17/19 05:00 White Blood Count 10.6 K/UL (4.8-10.8) Red Blood Count 3.36 M/UL (4.70-6.10) L Hemoglobin 10.0 G/DL (14.2-18.0) L Hematocrit 30.6 % (42.0-52.0) L Mean Corpuscular Volume 91 FL (80-99) Mean Corpuscular Hemoglobin 29.8 PG (27.0-31.0) Mean Corpuscular Hemoglobin Concent 32.6 G/DL (32.0-36.0) Red Cell Distribution Width 14.5 % (11.6-14.8) Platelet Count 71 K/UL (150-450) L Mean Platelet Volume 6.9 FL (6.5-10.1) Neutrophils (%) (Auto) % (45.0-75.0) Lymphocytes (%) (Auto) % (20.0-45.0) Monocytes (%) (Auto) % (1.0-10.0) Eosinophils (%) (Auto) % (0.0-3.0) Basophils (%) (Auto) % (0.0-2.0) Differential Total Cells Counted 100 Neutrophils % (Manual) 79 % (45-75) H Lymphocytes % (Manual) 10 % (20-45) L Monocytes % (Manual) 9 % (1-10) Eosinophils % (Manual) 2 % (0-3) Basophils % (Manual) 0 % (0-2) Band Neutrophils 0 % (0-8) Platelet Estimate Decreased L Platelet Morphology Normal Anisocytosis 1+ Sodium Level 140 MMOL/L (136-145) Potassium Level 4.4 MMOL/L (3.5-5.1) Chloride Level 106 MMOL/L (98-107) Carbon Dioxide Level 34 MMOL/L (21-32) H Anion Gap 0 mmol/L (5-15) L Blood Urea Nitrogen 15 mg/dL (7-18) Creatinine 1.0 MG/DL (0.55-1.30) Estimat Glomerular Filtration Rate > 60 mL/min (>60) Glucose Level 94 MG/DL (74-106) Calcium Level 7.4 MG/DL (8.5-10.1) L Phosphorus Level 1.8 MG/DL (2.5-4.9) L Magnesium Level 1.8 MG/DL (1.8-2.4) Current Medications Medications (Trade) Dose Ordered Sig/Ricardo Route PRN Reason Start Time Stop Time Status Last Admin Dose Admin Acetaminophen (Tylenol) 650 mg Q4H PRN ORAL T>100.5 02/13/19 16:00 02/23/19 19:59 Albuterol/ Ipratropium (Albuterol/ Ipratropium) 3 ml Q4H PRN HHN Shortness of Breath 02/13/19 17:00 02/18/19 16:59 Ascorbic Acid (Vitamin C) 250 mg TWICE A DAY ORAL 02/13/19 18:00 02/26/19 17:59 02/17/19 08:58 Chlorhexidine Gluconate (Roseanna-Hex 2%) 1 applic DAILY@1999 TOPIC 02/13/19 20:00 03/09/19 19:59 02/16/19 21:11 Dextrose (Dextrose 50%) 25 ml Q30M PRN IV Hypoglycemia 02/13/19 16:00 02/24/19 18:59 Dextrose (Dextrose 50%) 50 ml Q30M PRN IV Hypoglycemia 02/13/19 16:00 02/24/19 18:59 Dextrose/ Electrolytes 1,000 ml @ 50 mls/hr Q20H IV 02/14/19 09:30 03/16/19 09:29 02/16/19 21:11 Haloperidol Lactate (Haldol) 2 mg Q4H PRN IM Agitation 02/13/19 17:00 03/13/19 16:59 Hydrocortisone (Solu-CORTEF) 100 mg DAILY IV 02/16/19 09:00 03/07/19 21:59 02/17/19 08:57 Insulin Aspart (NovoLOG) EVERY 6 HOURS SUBQ 02/13/19 18:00 02/25/19 00:00 02/17/19 00:22 Lorazepam (Ativan) 1 mg Q6H PRN ORAL For Anxiety 02/17/19 11:45 02/24/19 11:44 Midodrine (Pro-Amatine) 10 mg THREE TIMES A DAY ORAL 02/13/19 18:00 03/01/19 12:59 02/17/19 08:57 Pantoprazole (Protonix) 40 mg DAILY ORAL 02/13/19 17:30 03/15/19 17:29 02/17/19 08:58 Polyethylene Glycol (Miralax) 17 gm DAILYPRN PRN ORAL Constipation 02/13/19 20:00 02/23/19 19:59 Quetiapine Fumarate (SEROqueL) 50 mg Q12HR ORAL 02/13/19 21:00 03/13/19 10:14 02/17/19 08:58 Lesli Michaels M.D. Feb 17, 2019 12:41
--- NOTE | 2019-02-17 13:26 | Pulmonology Progress Note ---
Assessment/Plan Problems: (1) Thrombocytopenia (2) DVT (deep venous thrombosis) (3) Septic shock Assessment & Plan: resolved (4) COPD (chronic obstructive pulmonary disease) (5) Chronic kidney disease (6) Malignant neoplasm of right kidney (7) PVD (peripheral vascular disease) (8) Schizophrenia (9) Encounter for PEG (percutaneous endoscopic gastrostomy) (10) cardiomyopathy with EF of 35% Assessment/Plan Gtube still in pt is less agitated respiratory treatment continue antipsychotic meds check electrolytes Ativan prn. Subjective ROS Limited/Unobtainable: No Constitutional: Reports: no symptoms HEENT: Repors: no symptoms Respiratory: Reports: no symptoms Allergies: Coded Allergies: No Known Allergies (Unverified , 01/24/19) Objective Last 24 Hour Vital Signs Date Time Temp Pulse Resp B/P (MAP) Pulse Ox O2 Delivery O2 Flow Rate FiO2 02/17/19 12:00 97.0 79 20 103/56 (72) 93 02/17/19 11:37 95 Nasal Cannula 2.0 28 02/17/19 11:36 77 20 95 Nasal Cannula 2.0 28 02/17/19 09:00 Nasal Cannula 1.0 02/17/19 08:00 97.9 64 20 105/60 (75) 93 02/17/19 07:41 62 02/17/19 04:00 98.0 72 18 129/64 (85) 97 02/17/19 04:00 62 02/17/19 00:00 55 02/17/19 00:00 98.0 68 18 126/68 (87) 95 02/16/19 21:00 Nasal Cannula 1.0 02/16/19 20:16 73 18 96 Nasal Cannula 2.0 28 02/16/19 20:16 96 Nasal Cannula 2.0 28 02/16/19 20:00 67 02/16/19 16:00 58 02/16/19 15:35 97.2 79 18 125/70 (88) 96 Intake and Output 02/16/19 02/17/19 18:59 06:59 Intake Total 750 ml Output Total 1300 ml Balance -1300 ml 750 ml Free Water 200 ml IV Total 250 ml Tube Feeding 300 ml Output Urine Total 1300 ml General Appearance: WD/WN HEENT: normocephalic, atraumatic Respiratory/Chest: chest wall non-tender, lungs clear Cardiovascular: normal peripheral pulses, normal rate Abdomen: normal bowel sounds, soft, non tender Genitourinary: normal external genitalia Neurologic/Psychiatric: senior qa tester II-XII grossly normal Lymphatic: no neck adenopathy Laboratory Tests 02/17/19 05:00: White Blood Count 10.6, Red Blood Count 3.36L, Hemoglobin 10.0L, Hematocrit 30.6L, Mean Corpuscular Volume 91, Mean Corpuscular Hemoglobin 29.8, Mean Corpuscular Hemoglobin Concent 32.6, Red Cell Distribution Width 14.5, Platelet Count 71L, Mean Platelet Volume 6.9, Neutrophils (%) (Auto) , Lymphocytes (%) ( Auto) , Monocytes (%) (Auto) , Eosinophils (%) (Auto) , Basophils (%) (Auto) , Differential Total Cells Counted 100, Neutrophils % (Manual) 79H, Lymphocytes % (Manual) 10L, Monocytes % (Manual) 9, Eosinophils % (Manual) 2, Basophils % ( Manual) 0, Band Neutrophils 0, Platelet Estimate DecreasedL, Platelet Morphology Normal, Anisocytosis 1+, Sodium Level 140, Potassium Level 4.4, Chloride Level 106, Carbon Dioxide Level 34H, Anion Gap 0L, Blood Urea Nitrogen 15, Creatinine 1.0, Estimat Glomerular Filtration Rate > 60, Glucose Level 94, Calcium Level 7.4L, Phosphorus Level 1.8L, Magnesium Level 1.8 Current Medications Medications (Trade) Dose Ordered Sig/Ricardo Route PRN Reason Start Time Stop Time Status Last Admin Dose Admin Acetaminophen (Tylenol) 650 mg Q4H PRN ORAL T>100.5 02/13/19 16:00 02/23/19 19:59 Albuterol/ Ipratropium (Albuterol/ Ipratropium) 3 ml Q4H PRN HHN Shortness of Breath 02/13/19 17:00 02/18/19 16:59 Ascorbic Acid (Vitamin C) 250 mg TWICE A DAY ORAL 02/13/19 18:00 02/26/19 17:59 02/17/19 08:58 Chlorhexidine Gluconate (Roseanna-Hex 2%) 1 applic DAILY@1999 TOPIC 02/13/19 20:00 03/09/19 19:59 02/16/19 21:11 Dextrose (Dextrose 50%) 25 ml Q30M PRN IV Hypoglycemia 02/13/19 16:00 02/24/19 18:59 Dextrose (Dextrose 50%) 50 ml Q30M PRN IV Hypoglycemia 02/13/19 16:00 02/24/19 18:59 Dextrose/ Electrolytes 1,000 ml @ 50 mls/hr Q20H IV 02/14/19 09:30 03/16/19 09:29 02/16/19 21:11 Haloperidol Lactate (Haldol) 2 mg Q4H PRN IM Agitation 02/13/19 17:00 03/13/19 16:59 Hydrocortisone (Solu-CORTEF) 100 mg DAILY IV 02/16/19 09:00 03/07/19 21:59 02/17/19 08:57 Insulin Aspart (NovoLOG) EVERY 6 HOURS SUBQ 02/13/19 18:00 02/25/19 00:00 02/17/19 00:22 Lorazepam (Ativan) 1 mg Q6H PRN ORAL For Anxiety 02/17/19 11:45 02/24/19 11:44 Midodrine (Pro-Amatine) 10 mg THREE TIMES A DAY ORAL 02/13/19 18:00 03/01/19 12:59 02/17/19 12:47 Pantoprazole (Protonix) 40 mg DAILY ORAL 02/13/19 17:30 03/15/19 17:29 02/17/19 08:58 Polyethylene Glycol (Miralax) 17 gm DAILYPRN PRN ORAL Constipation 02/13/19 20:00 02/23/19 19:59 Quetiapine Fumarate (SEROqueL) 50 mg Q12HR ORAL 02/13/19 21:00 03/13/19 10:14 02/17/19 08:58 Ron Anthony MD Feb 17, 2019 13:26
--- NOTE | 2019-02-17 13:41 | Hematology/Onc Progress Note ---
Assessment/Plan Assessment/Plan Assessment and Recs: # Dvt of the lower left superficial femoral vein with low platelets id contraindicated for ATC therapy --> ordered ivc filter, as per pulm--> at this time, contraindicated for anticoagulants --> no further heparin given low counts --> lack of consent, this is an emergency procedure --> pending bioethics eval # Thrombocytopenia - potential causes multifactorial, evaluate liver and viral etiologies to begin, us abd shows Coarsened hepatic echogenicity, may indicate hepatocellular disease, INr also high, also may be related to sepsis, recovery may have HEP C --> Hep panel pending and HIV negative --> US abd does show some coarsened liver, query cirrhosis, Inr also high --> Peripheral smear ordered to evaluate for blasts /schistocytes --> abx and other meds have been reviewed --> ok for ppx if plt >50k w/ either heparin or lovenox --> Transfuse if Plt < 20k and fever, or if Plt < 10k without fever --> plt trend 74-->70->59k-->46k-->77k-->76k->71k --> platelets to be given before procedure, now s/p peg # Anemia of chronic disease, borderline --> hgb trend 11-->10.7-->10.4-->9.8-->10 --> panel has been reviewed --> no bleeding noted # Dysphagia, now s/p peg --> ng unsuccessful --> as per gi, s/p peg # Septic shock with multiple infection --> on abx per id # Resp failure s/p intubation --> extubated 02/02 --> on nc # COPD # PVD # Schizophrenia # Cardiomyopathy # Dvt ppx scds, needs ivcf DW Rn and appreciate consultation. Subjective HEENT: Denies: no symptoms, eye pain, blurred vision, tearing, double vision, ear pain, ear discharge, nose pain, nose congestion, throat pain, throat swelling, mouth pain, mouth swelling, other Cardiovascular: Denies: no symptoms, chest pain, edema, irregular heart rate, lightheadedness, palpitations, syncope, other Respiratory: Denies: no symptoms, cough, shortness of breath, SOB with excertion, SOB at rest, sputum, wheezing, other Neurologic/Psychiatric: Denies: no symptoms, anxiety, depressed, emotional problems, headache, numbness, paresthesia, pre-existing deficit, seizure, tingling, tremors, weakness, other Endocrine: Denies: no symptoms, excessive sweating, flushing, intolerance to cold, intolerance to heat, increased hunger, increased thirst, increased urine, unexplained weight gain, unexplained weight loss, other Allergies: Coded Allergies: No Known Allergies (Unverified , 01/24/19) Subjective 02/11: remains in the icu, labs noted, reviewed, no bleeding or chills, hep panel pend 02/12: no events noted, remains in icu, needs bioethics pending eval, plts pending 02/13: no major changes, on nc, no bleeding, labs plt 46k, to get 1 unit plts 02/[facility]: [facility], s/p plt tx, plt improved to 77k 02/15: no major changes, remains arousable, no bleeding, labs pend 02/16: s/p peg, no bleeding, labs reviewed 02/17: gtube flush as needed, no bleeding, labs have been reviewed Objective Objective Current Medications Medications (Trade) Dose Ordered Sig/Ricardo Route PRN Reason Start Time Stop Time Status Last Admin Dose Admin Acetaminophen (Tylenol) 650 mg Q4H PRN ORAL T>100.5 02/13/19 16:00 02/23/19 19:59 Albuterol/ Ipratropium (Albuterol/ Ipratropium) 3 ml Q4H PRN HHN Shortness of Breath 02/13/19 17:00 02/18/19 16:59 Ascorbic Acid (Vitamin C) 250 mg TWICE A DAY ORAL 02/13/19 18:00 02/26/19 17:59 02/17/19 08:58 Chlorhexidine Gluconate (Roseanna-Hex 2%) 1 applic DAILY@1999 TOPIC 02/13/19 20:00 03/09/19 19:59 02/16/19 21:11 Dextrose (Dextrose 50%) 25 ml Q30M PRN IV Hypoglycemia 02/13/19 16:00 02/24/19 18:59 Dextrose (Dextrose 50%) 50 ml Q30M PRN IV Hypoglycemia 02/13/19 16:00 02/24/19 18:59 Dextrose/ Electrolytes 1,000 ml @ 50 mls/hr Q20H IV 02/14/19 09:30 03/16/19 09:29 02/16/19 21:11 Haloperidol Lactate (Haldol) 2 mg Q4H PRN IM Agitation 02/13/19 17:00 03/13/19 16:59 Hydrocortisone (Solu-CORTEF) 50 mg DAILY IV 02/18/19 09:00 03/07/19 21:59 Insulin Aspart (NovoLOG) EVERY 6 HOURS SUBQ 02/13/19 18:00 02/25/19 00:00 02/17/19 00:22 Lorazepam (Ativan) 1 mg Q6H PRN ORAL For Anxiety 02/17/19 11:45 02/24/19 11:44 Midodrine (Pro-Amatine) 10 mg THREE TIMES A DAY ORAL 02/13/19 18:00 03/01/19 12:59 02/17/19 12:47 Pantoprazole (Protonix) 40 mg DAILY ORAL 02/13/19 17:30 03/15/19 17:29 02/17/19 08:58 Polyethylene Glycol (Miralax) 17 gm DAILYPRN PRN ORAL Constipation 02/13/19 20:00 02/23/19 19:59 Quetiapine Fumarate (SEROqueL) 50 mg Q12HR ORAL 02/13/19 21:00 03/13/19 10:14 02/17/19 08:58 Last 24 Hour Vital Signs Date Time Temp Pulse Resp B/P (MAP) Pulse Ox O2 Delivery O2 Flow Rate FiO2 02/17/19 12:00 97.0 79 20 103/56 (72) 93 02/17/19 11:37 95 Nasal Cannula 2.0 28 02/17/19 11:36 77 20 95 Nasal Cannula 2.0 28 02/17/19 09:00 Nasal Cannula 1.0 02/17/19 08:00 97.9 64 20 105/60 (75) 93 02/17/19 07:41 62 02/17/19 04:00 98.0 72 18 129/64 (85) 97 02/17/19 04:00 62 02/17/19 00:00 55 02/17/19 00:00 98.0 68 18 126/68 (87) 95 02/16/19 21:00 Nasal Cannula 1.0 02/16/19 20:16 73 18 96 Nasal Cannula 2.0 28 02/16/19 20:16 96 Nasal Cannula 2.0 28 02/16/19 20:00 67 02/16/19 16:00 58 02/16/19 15:35 97.2 79 18 125/70 (88) 96 02/16/19 12:00 62 02/16/19 12:00 97.7 68 18 117/66 (83) 95 02/16/19 09:00 Nasal Cannula 1.0 02/16/19 08:00 98.0 61 20 122/69 (86) 94 02/16/19 08:00 82 02/16/19 04:00 60 02/16/19 00:00 58 02/16/19 00:00 97.4 58 16 122/63 (82) 96 02/15/19 20:22 67 18 97 Nasal Cannula 2.0 28 02/15/19 20:22 97 Nasal Cannula 2.0 28 02/15/19 20:00 80 02/15/19 20:00 97.8 80 17 118/66 (83) 94 02/15/19 16:00 73 Intake and Output 02/16/19 02/17/19 18:59 06:59 Intake Total 750 ml Output Total 1300 ml Balance -1300 ml 750 ml Free Water 200 ml IV Total 250 ml Tube Feeding 300 ml Output Urine Total 1300 ml Labs Test 02/15/19 08:30 02/16/19 07:15 02/17/19 05:00 White Blood Count 8.7 K/UL (4.8-10.8) 10.5 K/UL (4.8-10.8) 10.6 K/UL (4.8-10.8) Red Blood Count 3.36 M/UL (4.70-6.10) 3.64 M/UL (4.70-6.10) 3.36 M/UL (4.70-6.10) Hemoglobin 10.1 G/DL (14.2-18.0) 11.0 G/DL (14.2-18.0) 10.0 G/DL (14.2-18.0) Hematocrit 30.3 % (42.0-52.0) 33.5 % (42.0-52.0) 30.6 % (42.0-52.0) Mean Corpuscular Volume 90 FL (80-99) 92 FL (80-99) 91 FL (80-99) Mean Corpuscular Hemoglobin 30.1 PG (27.0-31.0) 30.4 PG (27.0-31.0) 29.8 PG (27.0-31.0) Mean Corpuscular Hemoglobin Concent 33.3 G/DL (32.0-36.0) 33.0 G/DL (32.0-36.0) 32.6 G/DL (32.0-36.0) Red Cell Distribution Width 13.7 % (11.6-14.8) 15.1 % (11.6-14.8) 14.5 % (11.6-14.8) Platelet Count 76 K/UL (150-450) 87 K/UL (150-450) 71 K/UL (150-450) Mean Platelet Volume 6.2 FL (6.5-10.1) 6.4 FL (6.5-10.1) 6.9 FL (6.5-10.1) Neutrophils (%) (Auto) % (45.0-75.0) % (45.0-75.0) % (45.0-75.0) Lymphocytes (%) (Auto) % (20.0-45.0) % (20.0-45.0) % (20.0-45.0) Monocytes (%) (Auto) % (1.0-10.0) % (1.0-10.0) % (1.0-10.0) Eosinophils (%) (Auto) % (0.0-3.0) % (0.0-3.0) % (0.0-3.0) Basophils (%) (Auto) % (0.0-2.0) % (0.0-2.0) % (0.0-2.0) Differential Total Cells Counted 100 100 100 Neutrophils % (Manual) 60 % (45-75) 80 % (45-75) 79 % (45-75) Lymphocytes % (Manual) 33 % (20-45) 16 % (20-45) 10 % (20-45) Monocytes % (Manual) 7 % (1-10) 4 % (1-10) 9 % (1-10) Eosinophils % (Manual) 0 % (0-3) 0 % (0-3) 2 % (0-3) Basophils % (Manual) 0 % (0-2) 0 % (0-2) 0 % (0-2) Band Neutrophils 0 % (0-8) 0 % (0-8) 0 % (0-8) Platelet Estimate Decreased Decreased Decreased Platelet Morphology Normal Normal Normal Hypochromasia 1+ Spherocytes 1+ Sodium Level 142 MMOL/L (136-145) 141 MMOL/L (136-145) 140 MMOL/L (136-145) Potassium Level 3.1 MMOL/L (3.5-5.1) 4.2 MMOL/L (3.5-5.1) 4.4 MMOL/L (3.5-5.1) Chloride Level 105 MMOL/L (98-107) 106 MMOL/L (98-107) 106 MMOL/L (98-107) Carbon Dioxide Level 35 MMOL/L (21-32) 39 MMOL/L (21-32) 34 MMOL/L (21-32) Anion Gap 2 mmol/L (5-15) 0 mmol/L (5-15) Blood Urea Nitrogen 10 mg/dL (7-18) 13 mg/dL (7-18) 15 mg/dL (7-18) Creatinine 0.9 MG/DL (0.55-1.30) 1.2 MG/DL (0.55-1.30) 1.0 MG/DL (0.55-1.30) Estimat Glomerular Filtration Rate > 60 mL/min (>60) > 60 mL/min (>60) > 60 mL/min (>60) Glucose Level 118 MG/DL (74-106) 111 MG/DL (74-106) 94 MG/DL (74-106) Calcium Level 7.3 MG/DL (8.5-10.1) 7.2 MG/DL (8.5-10.1) 7.4 MG/DL (8.5-10.1) Phosphorus Level 2.2 MG/DL (2.5-4.9) 2.6 MG/DL (2.5-4.9) 1.8 MG/DL (2.5-4.9) Anisocytosis 1+ 1+ Magnesium Level 1.8 MG/DL (1.8-2.4) 1.8 MG/DL (1.8-2.4) Total Bilirubin 0.8 MG/DL (0.2-1.0) Aspartate Amino Transf (AST/SGOT) 38 U/L (15-37) Alanine Aminotransferase (ALT/SGPT) 59 U/L (12-78) Alkaline Phosphatase 140 U/L (46-116) Total Protein 5.4 G/DL (6.4-8.2) Albumin 2.0 G/DL (3.4-5.0) Globulin 3.4 g/dL Albumin/Globulin Ratio 0.6 (1.0-2.7) Height (Feet): 5 Height (Inches): 7.00 Weight (Pounds): 164 Objective Physical Exam Vital Signs noted Gen: agitated Neck: supple Respiratory: normal breath sounds + 2l nc Cardiovascular: normal rate Gastrointestinal: soft Rectal: deferred Neurologic: alert, responsive Med Izquierdo MD Feb 17, 2019 13:41
--- NOTE | 2019-02-17 13:55 | NUR ---
NURSE NOTES:WOUND CARE FOLLOW-UP NOTES:Sacral area is pink with historical scar from previous wound. Non-blanching erythema without fluctuance L heel. Soft necrosis with detached borders noted to R heel. Wound is malodorous with small amt brown exudate. Periwound is pink and boggy. (L)2.7cm x (W)4cm.Wound Tx. continued as ordered . All wound prevention protocols continued as care-planned.
--- NOTE | 2019-02-17 15:35 | Surgery Progress Note ---
Surgery Progress Note Subjective Additional Comments No acute events. Comfortable. Restraints off. States he wants more food. States he is in no pain. States he does not want to remove his tube. Objective Last 24 Hour Vital Signs Date Time Temp Pulse Resp B/P (MAP) Pulse Ox O2 Delivery O2 Flow Rate FiO2 02/17/19 12:00 97.0 79 20 103/56 (72) 93 02/17/19 11:38 64 02/17/19 11:37 95 Nasal Cannula 2.0 28 02/17/19 11:36 77 20 95 Nasal Cannula 2.0 28 02/17/19 09:00 Nasal Cannula 1.0 02/17/19 08:00 97.9 64 20 105/60 (75) 93 02/17/19 07:41 62 02/17/19 04:00 98.0 72 18 129/64 (85) 97 02/17/19 04:00 62 02/17/19 00:00 55 02/17/19 00:00 98.0 68 18 126/68 (87) 95 02/16/19 21:00 Nasal Cannula 1.0 02/16/19 20:16 73 18 96 Nasal Cannula 2.0 28 02/16/19 20:16 96 Nasal Cannula 2.0 28 02/16/19 20:00 67 02/16/19 16:00 58 02/16/19 15:35 97.2 79 18 125/70 (88) 96 I&O Intake and Output 02/16/19 02/17/19 18:59 06:59 Intake Total 750 ml Output Total 1300 ml Balance -1300 ml 750 ml Free Water 200 ml IV Total 250 ml Tube Feeding 300 ml Output Urine Total 1300 ml Dressing: other Wound: other Drains: other Cardiovascular: RSR Respiratory: clear, decreased breath sounds Abdomen: soft, present bowel sounds, other, non-distended Extremities: no cyanosis, other Laboratory Tests Test 02/17/19 05:00 White Blood Count 10.6 K/UL (4.8-10.8) Red Blood Count 3.36 M/UL (4.70-6.10) L Hemoglobin 10.0 G/DL (14.2-18.0) L Hematocrit 30.6 % (42.0-52.0) L Mean Corpuscular Volume 91 FL (80-99) Mean Corpuscular Hemoglobin 29.8 PG (27.0-31.0) Mean Corpuscular Hemoglobin Concent 32.6 G/DL (32.0-36.0) Red Cell Distribution Width 14.5 % (11.6-14.8) Platelet Count 71 K/UL (150-450) L Mean Platelet Volume 6.9 FL (6.5-10.1) Neutrophils (%) (Auto) % (45.0-75.0) Lymphocytes (%) (Auto) % (20.0-45.0) Monocytes (%) (Auto) % (1.0-10.0) Eosinophils (%) (Auto) % (0.0-3.0) Basophils (%) (Auto) % (0.0-2.0) Differential Total Cells Counted 100 Neutrophils % (Manual) 79 % (45-75) H Lymphocytes % (Manual) 10 % (20-45) L Monocytes % (Manual) 9 % (1-10) Eosinophils % (Manual) 2 % (0-3) Basophils % (Manual) 0 % (0-2) Band Neutrophils 0 % (0-8) Platelet Estimate Decreased L Platelet Morphology Normal Anisocytosis 1+ Sodium Level 140 MMOL/L (136-145) Potassium Level 4.4 MMOL/L (3.5-5.1) Chloride Level 106 MMOL/L (98-107) Carbon Dioxide Level 34 MMOL/L (21-32) H Anion Gap 0 mmol/L (5-15) L Blood Urea Nitrogen 15 mg/dL (7-18) Creatinine 1.0 MG/DL (0.55-1.30) Estimat Glomerular Filtration Rate > 60 mL/min (>60) Glucose Level 94 MG/DL (74-106) Calcium Level 7.4 MG/DL (8.5-10.1) L Phosphorus Level 1.8 MG/DL (2.5-4.9) L Magnesium Level 1.8 MG/DL (1.8-2.4) Plan Problems: (1) Sepsis Assessment & Plan: afebrile, HD improving HR -noted cardiology input leukocytosis lactic acidosis resolved slowly improving -IV abx as per ID -trend labs if cont to fail will discuss with team about peg as currently he is fairly alert discussed with GI. reviewed bioethics Neuro eval for dementia [employer] notes reviewed tube feeds iv filter placement -will follow with recs thank you (2) Septic shock (3) Wound, open Assessment & Plan: Patient presented on admission with multiple pressure injuries being identified. Non-blanching erythema without induration noted to sacrum ,Right and Left buttocks. Scattered areas that are darker and maroon in color noted within base of wound. Scrotum is also erythematous. Unstageable pressure injury noted to Left heel. Base of wound is 100% necrotic but soft. Erythematous margins with surrounding non-blanching erythema.(L)3.2cm x (W)3cm. no drainage Right heel is boggy with non-blanching erythema.. Keloid scar noted distal R tibia. Partial thickness ulcer noted to dorsal R foot. Base of wound is moist and viable. Small amt serous exudate noted. Scattered small dry scabs noted to dorsal R foot. Non-blanching erythema without induration sacrum. R heel boggy but blanchable. Unstageable pressure injury L heel. Soft necrosis with detached borders. Scattered Slough, erythema along borders. Mild odor noted.(L)2.4cm x (W)3.5cm. Non-blanching erythema with fluctuance periwound.Wound Tx. are effective and continued as ordered. All wound prevention protocols continued as care-planned. Sacral area is pink with historical scar from previous wound. Non-blanching erythema without fluctuance L heel. Soft necrosis with detached borders noted to R heel. Wound is malodorous with small amt brown exudate. Periwound is pink and boggy. (L)2.7cm x (W)4cm.Wound Tx. continued as ordered . All wound prevention protocols continued as care-planned. Tx.Plan: Swab Dorsal R foot and R heel with Betadine. Cover with Optifoam drsg. Change every 3 days and prn. Apply Moisture Barrier Paste to buttocks. Cover sacrum with Optifoam drsg. Change every 3 days and prn. Apply Cavilon Skin Barrier to L heel.Cover with Optifoam drsg. Change every 7 days and prn. APM/JELLY mattress. Reposition at least every 2hours or as tolerated. Off-load heels with pillow. Nutritional Optimization Will monitor while in critical condition DAILY ESTIMATED NEEDS: Needs based on Critical care, sepsis, wounds 69kg 22-30 kcals/kg [id number] total kcals 1.25-2 g protein/kg 86-138 g total protein 25-30 mL/kg 4164-8063 total fluid mLs NUTRITION DIAGNOSIS: Increased kcal and pro needs r/t sepsis, wound healing, and underweight status as evidenced by pt w respiratory distress now intubated, critically elev WBC (*29.7), elev BG (200's), w/ multiple wounds (refer to eval), pt is @88% if [place] Body Weight. CURRENT TF: Glucerna 1.2 @30ml ENTERAL NUTRITION RECOMMENDATIONS: VITAL AF 1.2 @60ml/hr x24 hrs to provide 1440ml, 1728 kcal, 108g pro, 1168ml free H2O - WITH HEMODYNAMIC STABILITY, rec TF change to VITAL 1.2 to better meet est needs. Start @20ml/hr for 6 hrs. Advance as tolerated 10ml/hr q4-6 hrs to goal. - Flush per . HOB over 30 degrees If pt remains on pressor support, rec trophic feeds of Vital 1.2 @5-10ml/hr to maintain gut integrity. ------ ADDITIONAL RECOMMENDATIONS: 1) Per SNF: HT 71 inches, 152 lbs (69.1kg) 2) Wound care: Add DANIELA in 4oz water BID via OGT + VIT C 250mg BID (f/up w/ WC specialist) 3) Monitor lytes daily, replete as needed 4) Daily calibrated bed scale wts Mauricio Anne Feb 17, 2019 15:35
--- NOTE | 2019-02-17 15:45 | Progress Note ---
DATE: 02/17/2019 SUBJECTIVE: The patient is a 68-year-old patient with sepsis and dehydration. The patient is a male patient who has some confusion, some disorganized thought process, and decline in cognition below his baseline. That is why, his attending has requested daily psychiatric consultation at this time. He is on telemetry unit, but he has mood lability, irritability, and agitation and altered mental status as well. That is why, his attending has requested daily psychiatric consultation. MENTAL STATUS EXAMINATION: This is a 68-year-old male. Appearance is disheveled. Attitude, irritable and agitated. Affect, guarded and restricted. Intellect, poor. Mood, depressed and anxious. Motor activity, psychomotor agitation. Attention span is poor. Orientation x2. Speech is low volume, slurred. Thought process, disorganized, illogical. Insight and judgment is poor. DIAGNOSIS: Paranoid schizophrenia with acute exacerbation. PLAN: Plan for this patient is to treat him with Seroquel 50 mg p.o. q.12 h. and Haldol 2 mg IM q.4 h. p.r.n. anxiety, agitation and I am also going to continue with a dose of Ativan at a dose of 1 mg every 6 hours p.r.n. anxiety and agitation. A 20 minutes of behavioral management. Chart reviewed. Discussed with staff. Seen and assessed in his room. Stacie Paige M.D. DR: WANDA JOB#: [id number] CC:
[2019-02-17 16:01] VITALS: BP 106/42
[2019-02-17] MEDS: D5 1/2NS w/KCl 40meq 1000ml 1,000 ML IV SCH (16:31)
--- NOTE | 2019-02-17 19:15 | NUR ---
NURSE NOTES: received report from Francisca Rn, pt. received in bed awake, pt. A/O x's 1 to name, no signs or symptoms of acute cardiac or respiratory distress noted, bed alarm on, side rails up x's3 and safety brakes engaged, pt. appears to be sating well on 2L NC no distress noted, call light within easy reach, Glucerna 1.2 running via G tube at 60cc/hr- no residual. [place] intact and draining to gravity, dressings dry and intact, repositioned and turned pt. and comfort measures provided, JONATHAN PICC intact and patent running D5 1/2NS +40KCL at 50cc/hr- IV intact and patent, safety measures continued, will continue with plan of care.
--- NOTE | 2019-02-17 19:36 | NUR ---
HAND-OFF: Report given to Ryan Xie RN.
--- NOTE | 2019-02-17 19:56 | Cardiology Progress Note ---
Assessment/Plan Assessment/Plan 1. Septic syndrome. 2. Respiratory failure now extubated 3. Pneumonia. 4. Schizophrenia and dementia. 5. Urinary tract infection. 6. Renal failure. 7. Hypoalbuminemia/malnutrition. 8. Sinus tachycardia secondary to above resolved 9. Left ventricular systolic dysfunction. 10. sinus alanna renal fxn stable tele sinus / alanna avoid any neg chronotropic agents , sinus alanna only no pauses on tele bp seem fien s/p peg cv stable Subjective ROS Limited/Unobtainable: Yes Objective Last 24 Hour Vital Signs Date Time Temp Pulse Resp B/P (MAP) Pulse Ox O2 Delivery O2 Flow Rate FiO2 02/17/19 16:01 97.0 49 19 106/42 (63) 95 02/17/19 15:13 50 02/17/19 12:00 97.0 79 20 103/56 (72) 93 02/17/19 11:38 64 02/17/19 11:37 95 Nasal Cannula 2.0 28 02/17/19 11:36 77 20 95 Nasal Cannula 2.0 28 02/17/19 09:00 Nasal Cannula 1.0 02/17/19 08:00 97.9 64 20 105/60 (75) 93 02/17/19 07:41 62 02/17/19 04:00 98.0 72 18 129/64 (85) 97 02/17/19 04:00 62 02/17/19 00:00 55 02/17/19 00:00 98.0 68 18 126/68 (87) 95 02/16/19 21:00 Nasal Cannula 1.0 02/16/19 20:16 73 18 96 Nasal Cannula 2.0 28 02/16/19 20:16 96 Nasal Cannula 2.0 28 02/16/19 20:00 67 General Appearance: no apparent distress, alert Intake and Output 02/16/19 02/17/19 19:00 07:00 Intake Total 150 ml 600 ml Output Total 1300 ml Balance -1150 ml 600 ml Free Water 100 ml 100 ml IV Total 250 ml Tube Feeding 50 ml 250 ml Output Urine Total 1300 ml Laboratory Tests Test 02/17/19 05:00 White Blood Count 10.6 K/UL (4.8-10.8) Red Blood Count 3.36 M/UL (4.70-6.10) L Hemoglobin 10.0 G/DL (14.2-18.0) L Hematocrit 30.6 % (42.0-52.0) L Mean Corpuscular Volume 91 FL (80-99) Mean Corpuscular Hemoglobin 29.8 PG (27.0-31.0) Mean Corpuscular Hemoglobin Concent 32.6 G/DL (32.0-36.0) Red Cell Distribution Width 14.5 % (11.6-14.8) Platelet Count 71 K/UL (150-450) L Mean Platelet Volume 6.9 FL (6.5-10.1) Neutrophils (%) (Auto) % (45.0-75.0) Lymphocytes (%) (Auto) % (20.0-45.0) Monocytes (%) (Auto) % (1.0-10.0) Eosinophils (%) (Auto) % (0.0-3.0) Basophils (%) (Auto) % (0.0-2.0) Differential Total Cells Counted 100 Neutrophils % (Manual) 79 % (45-75) H Lymphocytes % (Manual) 10 % (20-45) L Monocytes % (Manual) 9 % (1-10) Eosinophils % (Manual) 2 % (0-3) Basophils % (Manual) 0 % (0-2) Band Neutrophils 0 % (0-8) Platelet Estimate Decreased L Platelet Morphology Normal Anisocytosis 1+ Sodium Level 140 MMOL/L (136-145) Potassium Level 4.4 MMOL/L (3.5-5.1) Chloride Level 106 MMOL/L (98-107) Carbon Dioxide Level 34 MMOL/L (21-32) H Anion Gap 0 mmol/L (5-15) L Blood Urea Nitrogen 15 mg/dL (7-18) Creatinine 1.0 MG/DL (0.55-1.30) Estimat Glomerular Filtration Rate > 60 mL/min (>60) Glucose Level 94 MG/DL (74-106) Calcium Level 7.4 MG/DL (8.5-10.1) L Phosphorus Level 1.8 MG/DL (2.5-4.9) L Magnesium Level 1.8 MG/DL (1.8-2.4) Sammy Helm MD Feb 17, 2019 19:56
[2019-02-17 20:00] VITALS: BP 115/54
[2019-02-17] MEDS: Dyna-Hex 2% Top Sol 2oz TOPIC SCH (20:32)
[2019-02-18 04:00] VITALS: BP 113/57
[2019-02-18] MEDS: NovoLOG Insulin Flexpen SUBQ SCH ×4 (05:18→17:57)
[2019-02-18 05:54] LABS: HEMATOCRIT 30.9 % (42.0-52.0); HEMOGLOBIN 9.9 G/DL (14.2-18.0); MEAN CORPUSCULAR VOLUME 92 FL (80-99); PLATELET COUNT 74 K/UL (150-450); RED BLOOD COUNT 3.35 M/UL (4.70-6.10); RED CELL DISTRIBUTION WIDTH 14.9 % (11.6-14.8); WHITE BLOOD COUNT 7.9 K/UL (4.8-10.8)
--- NOTE | 2019-02-18 05:57 | Hematology/Onc Progress Note ---
Assessment/Plan Assessment/Plan Assessment and Recs: # Dvt of the lower left superficial femoral vein with low platelets id contraindicated for ATC therapy --> ordered ivc filter, as per pulm--> at this time, contraindicated for anticoagulants --> no further heparin given low counts --> lack of consent, this is an emergency procedure --> pending bioethics eval # Thrombocytopenia - potential causes multifactorial, evaluate liver and viral etiologies to begin, us abd shows Coarsened hepatic echogenicity, may indicate hepatocellular disease, INr also high, also may be related to sepsis, recovery may have HEP C++ --> Hep panel pending and HIV negative --> US abd does show some coarsened liver, query cirrhosis, Inr also high --> Peripheral smear ordered to evaluate for blasts /schistocytes --> abx and other meds have been reviewed --> ok for ppx if plt >50k w/ either heparin or lovenox --> Transfuse if Plt < 20k and fever, or if Plt < 10k without fever --> plt trend 74-->70->59k-->46k-->77k-->76k->71k --> platelets to be given before procedure, now s/p peg # Anemia of chronic disease, borderline --> hgb trend 11-->10.7-->10.4-->9.8-->10 --> panel has been reviewed --> no bleeding noted # Dysphagia, now s/p peg --> ng unsuccessful --> as per gi, s/p peg # Septic shock with multiple infection --> on abx per id # Resp failure s/p intubation --> extubated 02/02 --> on nc # COPD --> per pulm eval # PVD # Schizophrenia # Cardiomyopathy # Dvt ppx scds, needs ivcf DW Rn and appreciate consultation. Subjective Constitutional: Denies: no symptoms, chills, fever, malaise, weakness, other HEENT: Denies: no symptoms, eye pain, blurred vision, tearing, double vision, ear pain, ear discharge, nose pain, nose congestion, throat pain, throat swelling, mouth pain, mouth swelling, other Cardiovascular: Denies: no symptoms, chest pain, edema, irregular heart rate, lightheadedness, palpitations, syncope, other Respiratory: Denies: no symptoms, cough, shortness of breath, SOB with excertion, SOB at rest, sputum, wheezing, other Gastrointestinal/Abdominal: Denies: no symptoms, abdomen distended, abdominal pain, black stools, tarry stools, blood in stool, constipated, diarrhea, difficulty swallowing, nausea, poor appetite, poor fluid intake, rectal bleeding , vomiting, other Genitourinary: Denies: no symptoms, burning, discharge, frequency, flank pain, hematuria, incontinence, pain, urgency, other Neurologic/Psychiatric: Denies: no symptoms, anxiety, depressed, emotional problems, headache, numbness, paresthesia, pre-existing deficit, seizure, tingling, tremors, weakness, other Endocrine: Denies: no symptoms, excessive sweating, flushing, intolerance to cold, intolerance to heat, increased hunger, increased thirst, increased urine, unexplained weight gain, unexplained weight loss, other Hematologic/Lymphatic: Denies: no symptoms, anemia, easy bleeding, easy bruising, adenopathy, other Allergies: Coded Allergies: No Known Allergies (Unverified , 01/24/19) Subjective 02/11: remains in the icu, labs noted, reviewed, no bleeding or chills, hep panel pend 02/12: no events noted, remains in icu, needs bioethics pending eval, plts pending 02/13: no major changes, on nc, no bleeding, labs plt 46k, to get 1 unit plts 02/14: transferred to [facility], afebrile, s/p plt tx, plt improved to 77k 02/15: no major changes, remains arousable, no bleeding, labs pend 02/16: s/p peg, no bleeding, labs reviewed 02/17: gtube flush as needed, no bleeding, labs have been reviewed' 02/18: remains confused, on 2lnc, s/p peg, on glucerna Objective Objective Current Medications Medications (Trade) Dose Ordered Sig/Ricardo Route PRN Reason Start Time Stop Time Status Last Admin Dose Admin Acetaminophen (Tylenol) 650 mg Q4H PRN ORAL T>100.5 02/13/19 16:00 02/23/19 19:59 Albuterol/ Ipratropium (Albuterol/ Ipratropium) 3 ml Q4H PRN HHN Shortness of Breath 02/13/19 17:00 02/18/19 16:59 Ascorbic Acid (Vitamin C) 250 mg TWICE A DAY ORAL 02/13/19 18:00 02/26/19 17:59 02/17/19 17:42 Chlorhexidine Gluconate (Roseanna-Hex 2%) 1 applic DAILY@2000 TOPIC 02/13/19 20:00 03/09/19 19:59 02/17/19 20:32 Dextrose (Dextrose 50%) 25 ml Q30M PRN IV Hypoglycemia 02/13/19 16:00 02/24/19 18:59 Dextrose (Dextrose 50%) 50 ml Q30M PRN IV Hypoglycemia 02/13/19 16:00 02/24/19 18:59 Dextrose/ Electrolytes 1,000 ml @ 50 mls/hr Q20H IV 02/14/19 09:30 03/16/19 09:29 02/17/19 16:31 Haloperidol Lactate (Haldol) 2 mg Q4H PRN IM Agitation 02/13/19 17:00 03/13/19 16:59 Hydrocortisone (Solu-CORTEF) 50 mg DAILY IV 02/18/19 09:00 03/07/19 21:59 Insulin Aspart (NovoLOG) EVERY 6 HOURS SUBQ 02/13/19 18:00 02/25/19 00:00 02/17/19 17:47 Lorazepam (Ativan) 1 mg Q6H PRN ORAL For Anxiety 02/17/19 11:45 02/24/19 11:44 Midodrine (Pro-Amatine) 10 mg THREE TIMES A DAY ORAL 02/13/19 18:00 03/01/19 12:59 02/17/19 17:42 Pantoprazole (Protonix) 40 mg DAILY ORAL 02/13/19 17:30 03/15/19 17:29 02/17/19 08:58 Polyethylene Glycol (Miralax) 17 gm DAILYPRN PRN ORAL Constipation 02/13/19 20:00 02/23/19 19:59 Quetiapine Fumarate (SEROqueL) 50 mg Q12HR ORAL 02/13/19 21:00 03/13/19 10:14 02/17/19 20:33 Last 24 Hour Vital Signs Date Time Temp Pulse Resp B/P (MAP) Pulse Ox O2 Delivery O2 Flow Rate FiO2 02/18/19 04:00 97.4 57 18 113/57 (75) 94 02/18/19 04:00 50 02/17/19 23:30 50 02/17/19 21:00 Nasal Cannula 1.0 02/17/19 20:00 75 18 96 Nasal Cannula 2.0 28 02/17/19 20:00 98.1 50 19 115/54 (74) 96 02/17/19 20:00 96 Nasal Cannula 2.0 28 02/17/19 19:08 51 02/17/19 16:01 97.0 49 19 106/42 (63) 95 02/17/19 15:13 50 02/17/19 12:00 97.0 79 20 103/56 (72) 93 02/17/19 11:38 64 02/17/19 11:37 95 Nasal Cannula 2.0 28 02/17/19 11:36 77 20 95 Nasal Cannula 2.0 28 02/17/19 09:00 Nasal Cannula 1.0 02/17/19 08:00 97.9 64 20 105/60 (75) 93 02/17/19 07:41 62 02/17/19 04:00 98.0 72 18 129/64 (85) 97 02/17/19 04:00 62 02/17/19 00:00 55 02/17/19 00:00 98.0 68 18 126/68 (87) 95 02/16/19 21:00 Nasal Cannula 1.0 02/16/19 20:16 73 18 96 Nasal Cannula 2.0 28 02/16/19 20:16 96 Nasal Cannula 2.0 28 02/16/19 20:00 67 02/16/19 16:00 58 02/16/19 15:35 97.2 79 18 125/70 (88) 96 02/16/19 12:00 62 02/16/19 12:00 97.7 68 18 117/66 (83) 95 02/16/19 09:00 Nasal Cannula 1.0 02/16/19 08:00 98.0 61 20 122/69 (86) 94 02/16/19 08:00 82 Intake and Output 02/17/19 02/18/19 19:00 07:00 Intake Total 760 ml 1000 ml Output Total 700 ml Balance 60 ml 1000 ml Free Water 100 ml 200 ml IV Total 400 ml 500 ml Tube Feeding 260 ml 300 ml Output Urine Total 700 ml Labs Test 02/15/19 08:30 02/16/19 07:15 02/17/19 05:00 02/18/19 04:30 White Blood Count 8.7 K/UL (4.8-10.8) 10.5 K/UL (4.8-10.8) 10.6 K/UL (4.8-10.8) Red Blood Count 3.36 M/UL (4.70-6.10) 3.64 M/UL (4.70-6.10) 3.36 M/UL (4.70-6.10) Hemoglobin 10.1 G/DL (14.2-18.0) 11.0 G/DL (14.2-18.0) 10.0 G/DL (14.2-18.0) Hematocrit 30.3 % (42.0-52.0) 33.5 % (42.0-52.0) 30.6 % (42.0-52.0) Mean Corpuscular Volume 90 FL (80-99) 92 FL (80-99) 91 FL (80-99) Mean Corpuscular Hemoglobin 30.1 PG (27.0-31.0) 30.4 PG (27.0-31.0) 29.8 PG (27.0-31.0) Mean Corpuscular Hemoglobin Concent 33.3 G/DL (32.0-36.0) 33.0 G/DL (32.0-36.0) 32.6 G/DL (32.0-36.0) Red Cell Distribution Width 13.7 % (11.6-14.8) 15.1 % (11.6-14.8) 14.5 % (11.6-14.8) Platelet Count 76 K/UL (150-450) 87 K/UL (150-450) 71 K/UL (150-450) Mean Platelet Volume 6.2 FL (6.5-10.1) 6.4 FL (6.5-10.1) 6.9 FL (6.5-10.1) Neutrophils (%) (Auto) % (45.0-75.0) % (45.0-75.0) % (45.0-75.0) Lymphocytes (%) (Auto) % (20.0-45.0) % (20.0-45.0) % (20.0-45.0) Monocytes (%) (Auto) % (1.0-10.0) % (1.0-10.0) % (1.0-10.0) Eosinophils (%) (Auto) % (0.0-3.0) % (0.0-3.0) % (0.0-3.0) Basophils (%) (Auto) % (0.0-2.0) % (0.0-2.0) % (0.0-2.0) Differential Total Cells Counted 100 100 100 Neutrophils % (Manual) 60 % (45-75) 80 % (45-75) 79 % (45-75) Lymphocytes % (Manual) 33 % (20-45) 16 % (20-45) 10 % (20-45) Monocytes % (Manual) 7 % (1-10) 4 % (1-10) 9 % (1-10) Eosinophils % (Manual) 0 % (0-3) 0 % (0-3) 2 % (0-3) Basophils % (Manual) 0 % (0-2) 0 % (0-2) 0 % (0-2) Band Neutrophils 0 % (0-8) 0 % (0-8) 0 % (0-8) Platelet Estimate Decreased Decreased Decreased Platelet Morphology Normal Normal Normal Hypochromasia 1+ Spherocytes 1+ Sodium Level 142 MMOL/L (136-145) 141 MMOL/L (136-145) 140 MMOL/L (136-145) Potassium Level 3.1 MMOL/L (3.5-5.1) 4.2 MMOL/L (3.5-5.1) 4.4 MMOL/L (3.5-5.1) Chloride Level 105 MMOL/L (98-107) 106 MMOL/L (98-107) 106 MMOL/L (98-107) Carbon Dioxide Level 35 MMOL/L (21-32) 39 MMOL/L (21-32) 34 MMOL/L (21-32) Anion Gap 2 mmol/L (5-15) 0 mmol/L (5-15) Blood Urea Nitrogen 10 mg/dL (7-18) 13 mg/dL (7-18) 15 mg/dL (7-18) Creatinine 0.9 MG/DL (0.55-1.30) 1.2 MG/DL (0.55-1.30) 1.0 MG/DL (0.55-1.30) Estimat Glomerular Filtration Rate > 60 mL/min (>60) > 60 mL/min (>60) > 60 mL/min (>60) Glucose Level 118 MG/DL (74-106) 111 MG/DL (74-106) 94 MG/DL (74-106) Calcium Level 7.3 MG/DL (8.5-10.1) 7.2 MG/DL (8.5-10.1) 7.4 MG/DL (8.5-10.1) Phosphorus Level 2.2 MG/DL (2.5-4.9) 2.6 MG/DL (2.5-4.9) 1.8 MG/DL (2.5-4.9) Anisocytosis 1+ 1+ Magnesium Level 1.8 MG/DL (1.8-2.4) 1.8 MG/DL (1.8-2.4) Total Bilirubin 0.8 MG/DL (0.2-1.0) Aspartate Amino Transf (AST/SGOT) 38 U/L (15-37) Alanine Aminotransferase (ALT/SGPT) 59 U/L (12-78) Alkaline Phosphatase 140 U/L (46-116) Total Protein 5.4 G/DL (6.4-8.2) Albumin 2.0 G/DL (3.4-5.0) Globulin 3.4 g/dL Albumin/Globulin Ratio 0.6 (1.0-2.7) Height (Feet): 5 Height (Inches): 7.00 Weight (Pounds): 176 Objective Physical Exam Vital Signs noted Gen: agitated Neck: supple Respiratory: normal breath sounds + 2l nc Cardiovascular: normal rate Gastrointestinal: soft Rectal: deferred Neurologic: alert, responsive Med Izquierdo MD Feb 18, 2019 05:57
[2019-02-18 06:28] LABS: ANION GAP -2 mmol/L (5-15); BLOOD UREA NITROGEN 16 mg/dL (7-18); CALCIUM 7.6 MG/DL (8.5-10.1); CARBON DIOXIDE 36 MMOL/L (21-32); CHLORIDE 105 MMOL/L (98-107); CREATININE 1.1 MG/DL (0.55-1.30); POTASSIUM 4.4 MMOL/L (3.5-5.1); SODIUM 139 MMOL/L (136-145)
--- NOTE | 2019-02-18 07:16 | NUR ---
HAND-OFF: Report given to Veronika RN, pt. remians stable and no signs of distress noted- Nurse aware to f/u on am labs.
[2019-02-18 08:00] VITALS: BP 125/60
--- NOTE | 2019-02-18 08:12 | NUR ---
NURSE NOTES: pt. awake and talking. Pt has NG tube, NPO for procedure today. Pt has awake overnight monitor, no signs of cardiac or respiratory distress at this time. Call light within reach. Pt. has Picc line on R upper arm, it is not flushing. IV site R arm. Bed is in lowest position and locked. Will continue to follow plans of care
[2019-02-18] MEDS ORDERED: Hydrocortisone 100mg Inj IV SCH (09:00)
[2019-02-18] MEDS: Ascorbic Acid 500mg tab ORAL SCH ×2 (10:07→17:55)
[2019-02-18] MEDS: Midodrine 10mg tab ORAL SCH ×3 (10:08→17:57)
--- NOTE | 2019-02-18 11:36 | General Progress Note ---
Assessment/Plan Problem List: (1) Renal failure (ARF), acute on chronic ICD Codes: N17.9 - Acute kidney failure, unspecified; N18.9 - Chronic kidney disease, unspecified SNOMED: 810830317 (2) Sepsis ICD Codes: A41.9 - Sepsis, unspecified organism SNOMED: 04136049 Qualifiers: Qualified Codes: A41.9 - Sepsis, unspecified organism (3) Malignant neoplasm of right kidney ICD Codes: C64.1 - Malignant neoplasm of right kidney, except renal pelvis SNOMED: 313197954 (4) Acute respiratory failure ICD Codes: J96.00 - Acute respiratory failure, unspecified whether with hypoxia or hypercapnia SNOMED: 82421769 (5) PVD (peripheral vascular disease) ICD Codes: I73.9 - Peripheral vascular disease, unspecified SNOMED: 799639995 Status: stable, progressing Assessment/Plan: vent abx wound care cbc bmp am dc plan snf Subjective Constitutional: Reports: weakness Allergies: Coded Allergies: No Known Allergies (Unverified , 01/24/19) All Systems: reviewed and negative except above Subjective o2nc calm in bed Objective Last 24 Hour Vital Signs Date Time Temp Pulse Resp B/P (MAP) Pulse Ox O2 Delivery O2 Flow Rate FiO2 02/18/19 08:00 97.5 52 18 125/60 (81) 96 02/18/19 04:00 97.4 57 18 113/57 (75) 94 02/18/19 04:00 50 02/17/19 23:30 50 02/17/19 21:00 Nasal Cannula 1.0 02/17/19 20:00 75 18 96 Nasal Cannula 2.0 28 02/17/19 20:00 98.1 50 19 115/54 (74) 96 02/17/19 20:00 96 Nasal Cannula 2.0 28 02/17/19 19:08 51 02/17/19 16:01 97.0 49 19 106/42 (63) 95 02/17/19 15:13 50 02/17/19 12:00 97.0 79 20 103/56 (72) 93 02/17/19 11:38 64 02/17/19 11:37 95 Nasal Cannula 2.0 28 Intake and Output 02/17/19 02/18/19 19:00 07:00 Intake Total 760 ml 1100 ml Output Total 700 ml Balance 60 ml 1100 ml Free Water 100 ml 200 ml IV Total 400 ml 600 ml Tube Feeding 260 ml 300 ml Output Urine Total 700 ml Laboratory Tests 02/18/19 04:30: White Blood Count 7.9, Red Blood Count 3.35L, Hemoglobin 9.9L, Hematocrit 30.9L , Mean Corpuscular Volume 92, Mean Corpuscular Hemoglobin 29.5, Mean Corpuscular Hemoglobin Concent 32.0, Red Cell Distribution Width 14.9H, Platelet Count 74L, Mean Platelet Volume 7.5, Neutrophils (%) (Auto) , Lymphocytes (%) (Auto) , Monocytes (%) (Auto) , Eosinophils (%) (Auto) , Basophils (%) (Auto) , Sodium Level 139, Potassium Level 4.4, Chloride Level 105 , Carbon Dioxide Level 36H, Anion Gap -2L, Blood Urea Nitrogen 16, Creatinine 1.1, Estimat Glomerular Filtration Rate > 60, Glucose Level 83, Calcium Level 7.6L Height (Feet): 5 Height (Inches): 7.00 Weight (Pounds): 165 General Appearance: lethargic EENT: normal ENT inspection Neck: normal alignment Cardiovascular: normal peripheral pulses, normal rate, regular rhythm Respiratory/Chest: chest wall non-tender, lungs clear, normal breath sounds Abdomen: normal bowel sounds, non tender, soft Extremities: normal inspection Edema: no edema noted Arm (L), no edema noted Arm (R), no edema noted Leg (L), no edema noted Leg (R), no edema noted Pedal (L), no edema noted Pedal (R), no edema noted Generalized Neurologic: motor weakness Skin: normal pigmentation, warm/dry Corey Short DO Feb 18, 2019 11:36
[2019-02-18 12:00] VITALS: BP 114/53
--- NOTE | 2019-02-18 12:36 | GI Progress Note ---
Assessment/Plan Problems: (1) Encounter for PEG (percutaneous endoscopic gastrostomy) ICD Codes: Z43.1 - Encounter for attention to gastrostomy SNOMED: 537068344, 486566371 (2) Dysphagia ICD Codes: R13.10 - Dysphagia, unspecified SNOMED: 08291923, 212378669 Status: stable Status Narrative Discussed with Dr. Valderrama Assessment/Plan s/p PEG placement Will need swallow evaluation for oral gratification on GTF per RD monitor labs Reglan for GI motility as needed dc planning per primary team The patient was seen and examined at bedside and all new and available data was reviewed in the patients chart. I agree with the above findings, impression and plan. (Patient seen earlier today. Signature stamp does not reflect patient encounter time.). - Leonel Valderrama MD Subjective Subjective Denies any abdominal pain Denies any nausea vomiting Objective Last 24 Hour Vital Signs Date Time Temp Pulse Resp B/P (MAP) Pulse Ox O2 Delivery O2 Flow Rate FiO2 02/18/19 08:00 97.5 52 18 125/60 (81) 96 02/18/19 04:00 97.4 57 18 113/57 (75) 94 02/18/19 04:00 50 02/17/19 23:30 50 02/17/19 21:00 Nasal Cannula 1.0 02/17/19 20:00 75 18 96 Nasal Cannula 2.0 28 02/17/19 20:00 98.1 50 19 115/54 (74) 96 02/17/19 20:00 96 Nasal Cannula 2.0 28 02/17/19 19:08 51 02/17/19 16:01 97.0 49 19 106/42 (63) 95 02/17/19 15:13 50 Intake and Output 02/17/19 02/18/19 19:00 07:00 Intake Total 760 ml 1100 ml Output Total 700 ml Balance 60 ml 1100 ml Free Water 100 ml 200 ml IV Total 400 ml 600 ml Tube Feeding 260 ml 300 ml Output Urine Total 700 ml Laboratory Tests Test 02/18/19 04:30 White Blood Count 7.9 K/UL (4.8-10.8) Red Blood Count 3.35 M/UL (4.70-6.10) L Hemoglobin 9.9 G/DL (14.2-18.0) L Hematocrit 30.9 % (42.0-52.0) L Mean Corpuscular Volume 92 FL (80-99) Mean Corpuscular Hemoglobin 29.5 PG (27.0-31.0) Mean Corpuscular Hemoglobin Concent 32.0 G/DL (32.0-36.0) Red Cell Distribution Width 14.9 % (11.6-14.8) H Platelet Count 74 K/UL (150-450) L Mean Platelet Volume 7.5 FL (6.5-10.1) Neutrophils (%) (Auto) % (45.0-75.0) Lymphocytes (%) (Auto) % (20.0-45.0) Monocytes (%) (Auto) % (1.0-10.0) Eosinophils (%) (Auto) % (0.0-3.0) Basophils (%) (Auto) % (0.0-2.0) Sodium Level 139 MMOL/L (136-145) Potassium Level 4.4 MMOL/L (3.5-5.1) Chloride Level 105 MMOL/L (98-107) Carbon Dioxide Level 36 MMOL/L (21-32) H Anion Gap -2 mmol/L (5-15) L Blood Urea Nitrogen 16 mg/dL (7-18) Creatinine 1.1 MG/DL (0.55-1.30) Estimat Glomerular Filtration Rate > 60 mL/min (>60) Glucose Level 83 MG/DL (74-106) Calcium Level 7.6 MG/DL (8.5-10.1) L Height (Feet): 5 Height (Inches): 7.00 Weight (Pounds): 165 General Appearance: WD/WN, no apparent distress, alert Cardiovascular: normal rate Respiratory/Chest: normal breath sounds, no respiratory distress Abdominal Exam: normal bowel sounds, non tender, soft Extremities: non-tender Jose Jarquin NP Feb 18, 2019 12:36
--- NOTE | 2019-02-18 12:50 | Infectious Diseases Prog Note ---
Assessment/Plan Assessment/Plan 68yo gentleman with PMH below presents with fever(100.1 is highest recorded in transfer packet) and worsened congestion from SNF. In the ED, pt was placed on oxygen then BiPAP but ultimately intubated. ID consulted for antimicrobial recommendation. Fever (Tmax 100.1) at snf, SP Leukocytosis, hydrocortisone 01/25-02/02;' SP Lactic acidosis, SP Shock, SP MRSA PNA, sp rx COPD? CHF? thick secretions per nurse flu swab negative 01/24 CXR: Extensive opacities within upper lobes demonstrated. In addition there is generalized interstitial densities throughout both lung craig. 01/25 CXR: Bilateral infiltrates appear fairly extensive but unchanged. TTE with EF 30-35% 01/25 sputum cx: MRSA 01/25 urine legionella ag: P 01/27 CXR: Extensive infiltrates bilaterally. Some degree of a superimposed interstitial edema has improved since the last exam. Endotracheal tube and NG tube remain in satisfactory in position. 01/28 CXR: Extensive bilateral infiltrates are again demonstrated without change. Tubes and lines are stable. 01/28 sputum cx: MRSA 01/30 CXR: 1. Overall similar patchy opacities in the lungs, most prominently in the right upper lung and right mid and lower lung. Probable small bilateral pleural effusions. 2. Endotracheal tube terminates in the region of the lower thoracic aorta above the cristina. Enteric tube courses past the diaphragm and out of the [id number], but the sidehole is seen near the GE junction. 02/02 CXR: Interim removal of previously demonstrated nasogastric tube and endotracheal tube. Right arm PICC remains. Bilateral fairly extensive interstitial opacities persist, unchanged. There is a small left pleural effusion again demonstrated 02/04 CXR: Patchy interstitial prominence demonstrated bilaterally. Heart size is stable. 02/08 CXR: No significant change compared to the prior exam 02/15 CXR: Interstitial edema Possible UTI? new mcmahon placed in ED 01/25 UA 15-20 WBC 01/25 Ucx: NG Renal US: Nonobstructive stones in the left kidney demonstrated. Bilateral renal cysts. Limited evaluation due to body habitus. 01/25 BCx: ngtd 01/31 bcx: ngtd Failed Swallow evaluation 02/04 at risk for aspiration pneumonitis and pneumonia Thrombocytopenia No diarrhea HIV test negative MRSA screen positive RLE skin graft b/l LE heel pressure ulcers and sacral ulcer Tobacco abuse COPD HTN Kidney cancer OA CKD Anemia Schizophrenia PVD CHF Plan: Continue to monitor off abx as he is stable 02/11 SP Doxycycline #11 02/01 SP Azithromycin #5/5 for atypicals 01/31 Ertapenem #8 01/31 DC Amikacin and vancomycin #6 SP cefepime #1 SP flagyl #1 SP vancomycin #1 aspiration precaution, elevate HOB, oral care, frequent suction pulmonary toilet, chest PT DVT PPX discussed with RN Thank you for this consult. [facility] will continue to follow the patient with you. Subjective Allergies: Coded Allergies: No Known Allergies (Unverified , 01/24/19) Subjective afebrile no leukocytosis at 2L NC Objective Vital Signs Last 24 Hour Vital Signs Date Time Temp Pulse Resp B/P (MAP) Pulse Ox O2 Delivery O2 Flow Rate FiO2 02/18/19 08:00 97.5 52 18 125/60 (81) 96 02/18/19 04:00 97.4 57 18 113/57 (75) 94 02/18/19 04:00 50 02/17/19 23:30 50 02/17/19 21:00 Nasal Cannula 1.0 02/17/19 20:00 75 18 96 Nasal Cannula 2.0 28 02/17/19 20:00 98.1 50 19 115/54 (74) 96 02/17/19 20:00 96 Nasal Cannula 2.0 28 02/17/19 19:08 51 02/17/19 16:01 97.0 49 19 106/42 (63) 95 02/17/19 15:13 50 Height (Feet): 5 Height (Inches): 7.00 Weight (Pounds): 165 Objective Gen: NAD HEENT: anicteric sclera. CV: RRR. Resp: coarse. equal chest rise. Abd: soft. normoactive Bs+ Neuro: awake. appropriate Skin: RLE skin graft Laboratory Tests Test 02/18/19 04:30 White Blood Count 7.9 K/UL (4.8-10.8) Red Blood Count 3.35 M/UL (4.70-6.10) L Hemoglobin 9.9 G/DL (14.2-18.0) L Hematocrit 30.9 % (42.0-52.0) L Mean Corpuscular Volume 92 FL (80-99) Mean Corpuscular Hemoglobin 29.5 PG (27.0-31.0) Mean Corpuscular Hemoglobin Concent 32.0 G/DL (32.0-36.0) Red Cell Distribution Width 14.9 % (11.6-14.8) H Platelet Count 74 K/UL (150-450) L Mean Platelet Volume 7.5 FL (6.5-10.1) Neutrophils (%) (Auto) % (45.0-75.0) Lymphocytes (%) (Auto) % (20.0-45.0) Monocytes (%) (Auto) % (1.0-10.0) Eosinophils (%) (Auto) % (0.0-3.0) Basophils (%) (Auto) % (0.0-2.0) Sodium Level 139 MMOL/L (136-145) Potassium Level 4.4 MMOL/L (3.5-5.1) Chloride Level 105 MMOL/L (98-107) Carbon Dioxide Level 36 MMOL/L (21-32) H Anion Gap -2 mmol/L (5-15) L Blood Urea Nitrogen 16 mg/dL (7-18) Creatinine 1.1 MG/DL (0.55-1.30) Estimat Glomerular Filtration Rate > 60 mL/min (>60) Glucose Level 83 MG/DL (74-106) Calcium Level 7.6 MG/DL (8.5-10.1) L Current Medications Medications (Trade) Dose Ordered Sig/Ricardo Route PRN Reason Start Time Stop Time Status Last Admin Dose Admin Acetaminophen (Tylenol) 650 mg Q4H PRN ORAL T>100.5 02/13/19 16:00 02/23/19 19:59 Albuterol/ Ipratropium (Albuterol/ Ipratropium) 3 ml Q4H PRN HHN Shortness of Breath 02/13/19 17:00 02/18/19 16:59 Ascorbic Acid (Vitamin C) 250 mg TWICE A DAY ORAL 02/13/19 18:00 02/26/19 17:59 02/18/19 10:07 Chlorhexidine Gluconate (Roseanna-Hex 2%) 1 applic DAILY@1999 TOPIC 02/13/19 20:00 03/09/19 19:59 02/17/19 20:32 Dextrose (Dextrose 50%) 25 ml Q30M PRN IV Hypoglycemia 02/13/19 16:00 02/24/19 18:59 Dextrose (Dextrose 50%) 50 ml Q30M PRN IV Hypoglycemia 02/13/19 16:00 02/24/19 18:59 Dextrose/ Electrolytes 1,000 ml @ 50 mls/hr Q20H IV 02/14/19 09:30 03/16/19 09:29 02/17/19 16:31 Haloperidol Lactate (Haldol) 2 mg Q4H PRN IM Agitation 02/13/19 17:00 03/13/19 16:59 Hydrocortisone (Solu-CORTEF) 50 mg DAILY IV 02/18/19 09:00 03/07/19 21:59 02/18/19 10:07 Insulin Aspart (NovoLOG) EVERY 6 HOURS SUBQ 02/13/19 18:00 02/25/19 00:00 02/17/19 17:47 Lorazepam (Ativan) 1 mg Q6H PRN ORAL For Anxiety 02/17/19 11:45 02/24/19 11:44 Midodrine (Pro-Amatine) 10 mg THREE TIMES A DAY ORAL 02/13/19 18:00 03/01/19 12:59 02/18/19 10:08 Pantoprazole (Protonix) 40 mg DAILY ORAL 02/13/19 17:30 03/15/19 17:29 02/18/19 10:08 Polyethylene Glycol (Miralax) 17 gm DAILYPRN PRN ORAL Constipation 02/13/19 20:00 02/23/19 19:59 Quetiapine Fumarate (SEROqueL) 50 mg Q12HR ORAL 02/13/19 21:00 03/13/19 10:14 02/18/19 10:08 Lesli Michaels M.D. Feb 18, 2019 12:50
--- NOTE | 2019-02-18 13:04 | Pulmonology Progress Note ---
Assessment/Plan Problems: (1) COPD (chronic obstructive pulmonary disease) (2) Septic shock Assessment & Plan: resolved (3) DVT (deep venous thrombosis) (4) Thrombocytopenia (5) Chronic kidney disease (6) Malignant neoplasm of right kidney (7) PVD (peripheral vascular disease) (8) Schizophrenia (9) cardiomyopathy with EF of 35% (10) Feeding by G-tube (11) DM (diabetes mellitus) Assessment/Plan pt wants to eat, I think he should get some food for oral gravitation. pt is less agitated respiratory treatment continue antipsychotic meds check electrolytes Ativan prn. Subjective ROS Limited/Unobtainable: No Constitutional: Reports: no symptoms HEENT: Repors: no symptoms Respiratory: Reports: no symptoms Cardiovascular: Reports: no symptoms Allergies: Coded Allergies: No Known Allergies (Unverified , 01/24/19) Objective Last 24 Hour Vital Signs Date Time Temp Pulse Resp B/P (MAP) Pulse Ox O2 Delivery O2 Flow Rate FiO2 02/18/19 08:00 97.5 52 18 125/60 (81) 96 02/18/19 04:00 97.4 57 18 113/57 (75) 94 02/18/19 04:00 50 02/17/19 23:30 50 02/17/19 21:00 Nasal Cannula 1.0 02/17/19 20:00 75 18 96 Nasal Cannula 2.0 28 02/17/19 20:00 98.1 50 19 115/54 (74) 96 02/17/19 20:00 96 Nasal Cannula 2.0 28 02/17/19 19:08 51 02/17/19 16:01 97.0 49 19 106/42 (63) 95 02/17/19 15:13 50 Intake and Output 02/17/19 02/18/19 19:00 07:00 Intake Total 760 ml 1100 ml Output Total 700 ml Balance 60 ml 1100 ml Free Water 100 ml 200 ml IV Total 400 ml 600 ml Tube Feeding 260 ml 300 ml Output Urine Total 700 ml General Appearance: WD/WN HEENT: normocephalic, atraumatic Respiratory/Chest: chest wall non-tender, lungs clear Cardiovascular: normal peripheral pulses, normal rate Abdomen: normal bowel sounds, soft, non tender Genitourinary: normal external genitalia Extremities: no cyanosis Neurologic/Psychiatric: binder cutter II-XII grossly normal Laboratory Tests 02/18/19 04:30: White Blood Count 7.9, Red Blood Count 3.35L, Hemoglobin 9.9L, Hematocrit 30.9L , Mean Corpuscular Volume 92, Mean Corpuscular Hemoglobin 29.5, Mean Corpuscular Hemoglobin Concent 32.0, Red Cell Distribution Width 14.9H, Platelet Count 74L, Mean Platelet Volume 7.5, Neutrophils (%) (Auto) , Lymphocytes (%) (Auto) , Monocytes (%) (Auto) , Eosinophils (%) (Auto) , Basophils (%) (Auto) , Sodium Level 139, Potassium Level 4.4, Chloride Level 105 , Carbon Dioxide Level 36H, Anion Gap -2L, Blood Urea Nitrogen 16, Creatinine 1.1, Estimat Glomerular Filtration Rate > 60, Glucose Level 83, Calcium Level 7.6L Current Medications Medications (Trade) Dose Ordered Sig/Ricardo Route PRN Reason Start Time Stop Time Status Last Admin Dose Admin Acetaminophen (Tylenol) 650 mg Q4H PRN ORAL T>100.5 02/13/19 16:00 02/23/19 19:59 Albuterol/ Ipratropium (Albuterol/ Ipratropium) 3 ml Q4H PRN HHN Shortness of Breath 02/13/19 17:00 02/18/19 16:59 Ascorbic Acid (Vitamin C) 250 mg TWICE A DAY ORAL 02/13/19 18:00 02/26/19 17:59 02/18/19 10:07 Chlorhexidine Gluconate (Roseanna-Hex 2%) 1 applic DAILY@2000 TOPIC 02/13/19 20:00 03/09/19 19:59 02/17/19 20:32 Dextrose (Dextrose 50%) 25 ml Q30M PRN IV Hypoglycemia 02/13/19 16:00 02/24/19 18:59 Dextrose (Dextrose 50%) 50 ml Q30M PRN IV Hypoglycemia 02/13/19 16:00 02/24/19 18:59 Dextrose/ Electrolytes 1,000 ml @ 50 mls/hr Q20H IV 02/14/19 09:30 03/16/19 09:29 02/17/19 16:31 Haloperidol Lactate (Haldol) 2 mg Q4H PRN IM Agitation 02/13/19 17:00 03/13/19 16:59 Hydrocortisone (Solu-CORTEF) 50 mg DAILY IV 02/18/19 09:00 03/07/19 21:59 02/18/19 10:07 Insulin Aspart (NovoLOG) EVERY 6 HOURS SUBQ 02/13/19 18:00 02/25/19 00:00 02/17/19 17:47 Lorazepam (Ativan) 1 mg Q6H PRN ORAL For Anxiety 02/17/19 11:45 02/24/19 11:44 Midodrine (Pro-Amatine) 10 mg THREE TIMES A DAY ORAL 02/13/19 18:00 03/01/19 12:59 02/18/19 10:08 Pantoprazole (Protonix) 40 mg DAILY ORAL 02/13/19 17:30 03/15/19 17:29 02/18/19 10:08 Polyethylene Glycol (Miralax) 17 gm DAILYPRN PRN ORAL Constipation 02/13/19 20:00 02/23/19 19:59 Quetiapine Fumarate (SEROqueL) 50 mg Q12HR ORAL 02/13/19 21:00 03/13/19 10:14 02/18/19 10:08 Ron Anthony MD Feb 18, 2019 13:04
--- NOTE | 2019-02-18 13:30 | NUR ---
RD ASSESSMENT & RECOMMENDATIONS SEE CARE ACTIVITY FOR COMPLETE ASSESSMENT DAILY ESTIMATED NEEDS: Needs based on Pulmonary, sepsis, wounds 69kg 25-30 kcals/kg 2732-0259 total kcals 1.25-2 g protein/kg 86-138 g total protein 25-30 mL/kg 7411-5586 total fluid mLs NUTRITION DIAGNOSIS: *Swallowing difficulty R/T dysphagia, confusion as evidenced by s/p pt failed MBSS, CARD FEEDER recommends nonoral feeding, s/p failed attempts to insert NGT, pt is now s/p PEG placement. * Altered nutrition related lab values R/T clinical condition as evidenced by elev BNP (27440), low K (now wnl), low phos (1.8) *Increased kcal and pro needs r/t sepsis, wound healing, and underweight status as evidenced by pt w respiratory distress now s/p extubation, critically elev WBC (*29.7-> wnl), elev BGs-> now improved, w/ multiple wounds (refer to eval), pt is @88% if [place] Body Weight. CURRENT TF:NPO PO DIET RECOMMENDATIONS: IF ORAL GRAT INDICATED: rec liberalized REGULAR/ texture per CARD FEEDER ENTERAL NUTRITION RECOMMENDATIONS: Glucerna 1.5 @ 50ml/hr x24 hrs to provide 1200ml, 1800 kcal, 99g pro, 911ml free H2o RESUME TF MEDICALLY APPROPRIATE (NPO FOR IVC FILTER AT THIS TIME) -> initiate Glucerna 1.5 @ 20ml/hr x 6 hrs -> Advance 10ml q 4-6 hrs as tolerated to goal rate. . -> HOB over 30 degrees/ water flush per MD ADDITIONAL RECOMMENDATIONS: 1) Per SNF: HT 71 inches, 152 lbs (69.1kg) + daily calibrated bedscale wts -> REC RECALIBRATED BEDSCALE WT (now w/ added p200 mattress + pump) 2) Wound care: Continue Vit C; add Christian 1pkt BID 3) Monitor lytes daily, replete as needed (low phos) 4) CARD FEEDER re-eval for possible oral grat w/ GT feeds -> Pt asking for food 5) Monitor BGs closely while on steroidal med
--- NOTE | 2019-02-18 13:47 | Nephrology Progress Note ---
Assessment/Plan Problem List: (1) Renal failure (ARF), acute on chronic (2) Acute respiratory failure (3) Septic shock (4) Bradyarrhythmia Assessment Renal failure- Likely acute on Chronic- Cr lower Acute respiratory failure- intubated on Vent Septic Shock- On pressors COPD PVD Schizophrenia Plan not eating - HAS PEG NOW NGT could not be inserted in past trials K and Phos IV as needed Haldol PRN Now ( 02/02) extubated- tolerating well pulmonary support aim to taper dopamine stop IV fluid renal dose dopamin for low HR K supplement down on hydration One dose IV Lasix mag and Phos and K supplement as needed 2D Echo Low Ej Fx - Global Hypokinesis Avoid nephrotoxics afterload reduction monitor renal parameters urine studies ADRIAN IMPRESSION: Nonobstructive stones in the left kidney demonstrated. Bilateral renal cysts. Subjective ROS Limited/Unobtainable: No Constitutional: Reports: malaise, weakness Objective Objective Last 24 Hour Vital Signs Date Time Temp Pulse Resp B/P (MAP) Pulse Ox O2 Delivery O2 Flow Rate FiO2 02/18/19 08:12 96 Nasal Cannula 2.0 28 02/18/19 08:12 78 18 96 Nasal Cannula 2.0 28 02/18/19 08:00 97.5 52 18 125/60 (81) 96 02/18/19 04:00 97.4 57 18 113/57 (75) 94 02/18/19 04:00 50 02/17/19 23:30 50 02/17/19 21:00 Nasal Cannula 1.0 02/17/19 20:00 75 18 96 Nasal Cannula 2.0 28 02/17/19 20:00 98.1 50 19 115/54 (74) 96 02/17/19 20:00 96 Nasal Cannula 2.0 28 02/17/19 19:08 51 02/17/19 16:01 97.0 49 19 106/42 (63) 95 02/17/19 15:13 50 Intake and Output 02/17/19 02/18/19 19:00 07:00 Intake Total 760 ml 1100 ml Output Total 700 ml Balance 60 ml 1100 ml Free Water 100 ml 200 ml IV Total 400 ml 600 ml Tube Feeding 260 ml 300 ml Output Urine Total 700 ml Laboratory Tests 02/18/19 04:30: White Blood Count 7.9, Red Blood Count 3.35L, Hemoglobin 9.9L, Hematocrit 30.9L , Mean Corpuscular Volume 92, Mean Corpuscular Hemoglobin 29.5, Mean Corpuscular Hemoglobin Concent 32.0, Red Cell Distribution Width 14.9H, Platelet Count 74L, Mean Platelet Volume 7.5, Neutrophils (%) (Auto) , Lymphocytes (%) (Auto) , Monocytes (%) (Auto) , Eosinophils (%) (Auto) , Basophils (%) (Auto) , Sodium Level 139, Potassium Level 4.4, Chloride Level 105 , Carbon Dioxide Level 36H, Anion Gap -2L, Blood Urea Nitrogen 16, Creatinine 1.1, Estimat Glomerular Filtration Rate > 60, Glucose Level 83, Calcium Level 7.6L Height (Feet): 5 Height (Inches): 7.00 Weight (Pounds): 165 General Appearance: no apparent distress, lethargic Cardiovascular: bradycardia Respiratory/Chest: decreased breath sounds Abdomen: distended, other - has PEG Objective no change Bienvenido Gonzalez MD Feb 18, 2019 13:47
--- NOTE | 2019-02-18 14:19 | Surgery Progress Note ---
Surgery Progress Note Subjective Additional Comments no acute events no pain no n/v/f/c wants food comfortable Objective Last 24 Hour Vital Signs Date Time Temp Pulse Resp B/P (MAP) Pulse Ox O2 Delivery O2 Flow Rate FiO2 02/18/19 12:00 97.5 54 20 114/53 (73) 97 02/18/19 12:00 56 02/18/19 08:12 96 Nasal Cannula 2.0 28 02/18/19 08:12 78 18 96 Nasal Cannula 2.0 28 02/18/19 08:00 50 02/18/19 08:00 97.5 52 18 125/60 (81) 96 02/18/19 04:00 97.4 57 18 113/57 (75) 94 02/18/19 04:00 50 02/17/19 23:30 50 02/17/19 21:00 Nasal Cannula 1.0 02/17/19 20:00 75 18 96 Nasal Cannula 2.0 28 02/17/19 20:00 98.1 50 19 115/54 (74) 96 02/17/19 20:00 96 Nasal Cannula 2.0 28 02/17/19 19:08 51 02/17/19 16:01 97.0 49 19 106/42 (63) 95 02/17/19 15:13 50 I&O Intake and Output 02/17/19 02/18/19 18:59 06:59 Intake Total 650 ml 1160 ml Output Total 700 ml Balance -50 ml 1160 ml Free Water 100 ml 200 ml IV Total 350 ml 600 ml Tube Feeding 200 ml 360 ml Output Urine Total 700 ml Dressing: other Wound: other Cardiovascular: RSR Respiratory: clear Abdomen: soft, non-tender, present bowel sounds, non-distended Extremities: no edema, no tenderness, no cyanosis Laboratory Tests Test 02/18/19 04:30 White Blood Count 7.9 K/UL (4.8-10.8) Red Blood Count 3.35 M/UL (4.70-6.10) L Hemoglobin 9.9 G/DL (14.2-18.0) L Hematocrit 30.9 % (42.0-52.0) L Mean Corpuscular Volume 92 FL (80-99) Mean Corpuscular Hemoglobin 29.5 PG (27.0-31.0) Mean Corpuscular Hemoglobin Concent 32.0 G/DL (32.0-36.0) Red Cell Distribution Width 14.9 % (11.6-14.8) H Platelet Count 74 K/UL (150-450) L Mean Platelet Volume 7.5 FL (6.5-10.1) Neutrophils (%) (Auto) % (45.0-75.0) Lymphocytes (%) (Auto) % (20.0-45.0) Monocytes (%) (Auto) % (1.0-10.0) Eosinophils (%) (Auto) % (0.0-3.0) Basophils (%) (Auto) % (0.0-2.0) Sodium Level 139 MMOL/L (136-145) Potassium Level 4.4 MMOL/L (3.5-5.1) Chloride Level 105 MMOL/L (98-107) Carbon Dioxide Level 36 MMOL/L (21-32) H Anion Gap -2 mmol/L (5-15) L Blood Urea Nitrogen 16 mg/dL (7-18) Creatinine 1.1 MG/DL (0.55-1.30) Estimat Glomerular Filtration Rate > 60 mL/min (>60) Glucose Level 83 MG/DL (74-106) Calcium Level 7.6 MG/DL (8.5-10.1) L Plan Problems: (1) Sepsis Assessment & Plan: afebrile, HD improving HR -noted cardiology input leukocytosis lactic acidosis resolved slowly improving -IV abx as per ID -trend labs if cont to fail will discuss with team about peg as currently he is fairly alert discussed with GI. reviewed bioethics Neuro eval for dementia ARTIST BLACKSMITH notes reviewed tube feeds iv filter placement d/c planning oral diet for gratification -will follow with recs thank you (2) Septic shock (3) Wound, open Assessment & Plan: Patient presented on admission with multiple pressure injuries being identified. Non-blanching erythema without induration noted to sacrum ,Right and Left buttocks. Scattered areas that are darker and maroon in color noted within base of wound. Scrotum is also erythematous. Unstageable pressure injury noted to Left heel. Base of wound is 100% necrotic but soft. Erythematous margins with surrounding non-blanching erythema.(L)3.2cm x (W)3cm. no drainage Right heel is boggy with non-blanching erythema.. Keloid scar noted distal R tibia. Partial thickness ulcer noted to dorsal R foot. Base of wound is moist and viable. Small amt serous exudate noted. Scattered small dry scabs noted to dorsal R foot. Non-blanching erythema without induration sacrum. R heel boggy but blanchable. Unstageable pressure injury L heel. Soft necrosis with detached borders. Scattered Slough, erythema along borders. Mild odor noted.(L)2.4cm x (W)3.5cm. Non-blanching erythema with fluctuance periwound.Wound Tx. are effective and continued as ordered. All wound prevention protocols continued as care-planned. Sacral area is pink with historical scar from previous wound. Non-blanching erythema without fluctuance L heel. Soft necrosis with detached borders noted to R heel. Wound is malodorous with small amt brown exudate. Periwound is pink and boggy. (L)2.7cm x (W)4cm.Wound Tx. continued as ordered . All wound prevention protocols continued as care-planned. Tx.Plan: Swab Dorsal R foot and R heel with Betadine. Cover with Optifoam drsg. Change every 3 days and prn. Apply Moisture Barrier Paste to buttocks. Cover sacrum with Optifoam drsg. Change every 3 days and prn. Apply Cavilon Skin Barrier to L heel.Cover with Optifoam drsg. Change every 7 days and prn. APM/JELLY mattress. Reposition at least every 2hours or as tolerated. Off-load heels with pillow. Nutritional Optimization Will monitor while in critical condition DAILY ESTIMATED NEEDS: Needs based on Critical care, sepsis, wounds 69kg 22-30 kcals/kg 1735-0095 total kcals 1.25-2 g protein/kg 86-138 g total protein 25-30 mL/kg 4724-8242 total fluid mLs NUTRITION DIAGNOSIS: Increased kcal and pro needs r/t sepsis, wound healing, and underweight status as evidenced by pt w respiratory distress now intubated, critically elev WBC (*29.7), elev BG (200's), w/ multiple wounds (refer to eval), pt is @88% if Boon Body Weight. CURRENT TF: Glucerna 1.2 @30ml ENTERAL NUTRITION RECOMMENDATIONS: VITAL AF 1.2 @60ml/hr x24 hrs to provide 1440ml, 1728 kcal, 108g pro, 1168ml free H2O - WITH HEMODYNAMIC STABILITY, rec TF change to VITAL 1.2 to better meet est needs. Start @20ml/hr for 6 hrs. Advance as tolerated 10ml/hr q4-6 hrs to goal. - Flush per MD. HOB over 30 degrees If pt remains on pressor support, rec trophic feeds of Vital 1.2 @5-10ml/hr to maintain gut integrity. ------ ADDITIONAL RECOMMENDATIONS: 1) Per SNF: HT 71 inches, 152 lbs (69.1kg) 2) Wound care: Add DANIELA in 4oz water BID via OGT + VIT C 250mg BID (f/up w/ WC specialist) 3) Monitor lytes daily, replete as needed 4) Daily calibrated bed scale wts Mauricio Anne Feb 18, 2019 14:19
[2019-02-18] MEDS: D5 1/2NS w/KCl 40meq 1000ml 1,000 ML IV SCH (14:39)
--- NOTE | 2019-02-18 15:54 | NUR ---
SWALLOW STATUS/WEEKLY SUMMARY:/D/C SUMMARY: PATIENT CLEARED FOR ST INTERVENTION BY EUGENIA GREENWOOD. HE WAS ALERT, AWAKE, INITIALLY COOPERATIVE, VERBAL WHICH THEN DETERIORATED TO YELLING, AGITATION, GOAL MET FOR IDENTIFYING PATIENTS RISK FOR ASPIRATION PER FINDINGS OF VIDEO SWALLOW STUDY COMPLETED) RECOMMENDATION INCLUDED: NON/ORAL FEEDING MANAGEMENT. PEG PLACEMENT COMPLETED. FOLLOWUP P.O. TRIALS WITH 3 ML AMOUNTS OF WATER PRESENTED VIA SPOON: PATIENT APPEARED TO TOLERATE TRIAL AND THEN COUGHED POST SWALLOW. HIS COUGH IS NON/CLEARING, NON/PRODUCTIVE. NO FURTHER SKILLED ST SERVICES APPEAR TO BE NEEDED AT THIS TIME D/C PENDING TO RETURN TO SNF
[2019-02-18 16:00] VITALS: BP 109/65
--- NOTE | 2019-02-18 16:15 | Progress Note ---
DATE: 02/18/2019 SUBJECTIVE: This is a 68-year-old male patient with sepsis and dehydration, but this patient still has COPD, chronic renal disease, altered mental status, and decline in cognition below his baseline. That is why, his attending physician has requested daily psychiatric consultation. MENTAL STATUS EXAMINATION: This is a 68-year-old male. Appearance is disheveled. Attitude, irritable and agitated. Affect, guarded and restricted. Intellect poor. Mood, depressed and anxious. Motor activity, psychomotor agitation. Attention span is poor. Orientation x2. Speech is nonsensical. Thought process, disorganized and illogical. Insight and judgment is poor. DIAGNOSIS: Paranoid schizophrenia with acute exacerbation. PLAN: My plan for this patient is to treat him with a psychotropic medication regimen, consisting of Seroquel 50 mg p.o. q.12 h. and Ativan 1 mg every 6 hours p.r.n. anxiety and agitation. A 20 minutes of behavioral management. Chart reviewed. Discussed with staff. Seen and assessed at bedside. Stacie Paige M.D. DR: WANDA JOB#: [id number] CC:
--- NOTE | 2019-02-18 16:43 | NUR ---
DISCHARGE PLANNING DISCHARGE ORDER NOTED Patient has been accepted to; [facility] [address] [place] [address] Bed: 53-B Skilled [phone] for Nurse to Nurse report [facility] ETA for transportation: 17:30
--- NOTE | 2019-02-18 18:05 | NUR ---
NURSE NOTES: per doctor Han pt to have mcmahon DC before discharge. mcmahon was DC at 1805.
--- NOTE | 2019-02-18 19:00 | NUR ---
HAND OFF: PT in stable condition report given to Nicole
--- NOTE | 2019-02-18 19:10 | NUR ---
NURSE NOTES: Received patient from EUGENIA Banda. Patient is awake, lying in ramirez's; resting comfortably. A/Ox1,confused. Denies pain at this time. No signs of acute distress noted. JONATHAN picc line patent and flushed, with ongoing IV fluid D5 1/2NS + 40mEq KCl. Dressing dry and intact. No erythema, bleeding or infiltration noted. On P200 mattress for wound management. G tube patent with no residual volume, on Glucerna 1.2 @ 60mls/hr. Bed at lowest position, brakes on, siderailsx3. Call light within reach. Will continue to monitor. Addendum: 02/18/19 at 2325 by Sharon Marino RN On oxygen via NC @ 2LPM.
--- NOTE | 2019-02-18 19:18 | NUR ---
NURSE NOTES: Paged Dr. Short to discontinue PICC line. Awaiting for callback.
--- NOTE | 2019-02-18 19:44 | NUR ---
NURSE NOTES: Per Dr. Short, to discontinue PICC line and change hydrocortisone 50mg IV to PO daily. Noted and carried out.
--- NOTE | 2019-02-18 19:50 | NUR ---
NURSE NOTES: Called [facility] and spoke with Andi for pickup ETA 2145.
[2019-02-18] MEDS: Dyna-Hex 2% Top Sol 2oz TOPIC SCH (20:00)
--- NOTE | 2019-02-18 20:20 | NUR ---
NURSE NOTES: Wound photos taken and uploaded.
--- NOTE | 2019-02-18 20:40 | NUR ---
NURSE NOTES: PICC line removed with catheter 35cm long and catheter tip intact. Pressure dressing applied at site. Will monitor for bleeding.
--- NOTE | 2019-02-18 21:00 | NUR ---
NURSE NOTES: Vital signs taken which revealed T=96.7, HR=68, RR=19, BP 116/65. Patient in stable condition.
--- NOTE | 2019-02-18 22:40 | NUR ---
NURSE NOTES: [facility] arrived to picker and sorter load and unload patient. Addendum: 02/18/19 at 2311 by Sharon Marino RN Discharge packet and report given to EMT.
--- NOTE | 2019-02-18 22:45 | NUR ---
NURSE NOTES: Called [facility] and spoke with EUGENIA Barnett that [facility] arrived and patient will be transported to their facility. Addendum: 02/18/19 at 2311 by Sharon Marino RN Confirmed with EUGENIA Barnett that report was given to ESTEPHANIE foley. Addendum: 02/18/19 at 2319 by Sharon Marino RN Confirmed with EUGENIA Barnett that report was already given by ESTEPHANIE foley.
--- NOTE | 2019-02-18 22:55 | NUR ---
NURSE NOTES: 2250 Patient was transferred to [facility] by 2 music composer. 2255 Patient left the hospital via [facility] accompanied by 2 music composer. Vital signs stable. No signs of distress noted. Patient is in stable condition. Addendum: 02/19/19 at 0014 by Sharon Marino RN 2250 Tele box off and tolerating well.
--- NOTE | 2019-02-19 11:35 | Discharge Summary ---
Discharge Summary Discharge Summary _ DATE OF ADMISSION: 01/24/2019 DATE OF DISCHARGE: 02/18/2019 DISCHARGED BY: Dr Short REASON FOR ADMISSION: 68 years old male with past medical history of COPD, chronic kidney disease, renal CA, hypertension, anemia, osteoarthritis, was sent from the residential facility due to fever and respiratory distress. Patient had prior hospitalization at [facility]. Patient was unable to provide any information due to altered mental status. Upon evaluation patient was hypotensive, tachycardic and hypoxic. Patient subsequently required placement of central line and emergency oral intubation. Laboratory work-up revealed leukocytosis , stable hemoglobin and hematocrit. Urinalysis revealed mild pyuria and occasional bacteria. Troponin - 0.017. Pro BNP 2369. EKG revealed sinus tachycardia, no acute ischemic changes. Chest x-ray revealed mixed interstitial alveolar infiltrate. Septic work-up initiated in emergency room. Patient subsequently admitted for further management to ICU. CONSULTANTS: core analyst Dr. Helm neurologist Dr. Aguiar pulmonary/critical care Dr. Sanabria ID specialist Dr. Lenz structural shop helper Dr. Gonzalez knot bumper/oncologist Dr. Izquierdo surgery Dr. Hampton plastic surgeon Dr. Daniel psychiatrist Dr. Paige [facility] COURSE: Patient admitted to ICU. Patient was on pressor, titrated to keep mean arterial blood pressure above 65. Ventilator support and pulmonary toilet provided. Patient was followed-up with ABG and chest x-ray. Patient subsequently was able to be weaned from pressors. Per cardiology, sinus tachycardia was likely secondary to septic and septic shock , resolved. Hemodynamic status was closely monitored. Patient noted to have sinus bradycardia , no pauses. Patient started on dopamine drip for heart rate. Echocardiogram revealed left ventricular ejection fraction 30 to 35%. Global left ventricular hypokinesia except the basal segments. Apical ballooning syndrome or Takotsubo cardiomyopathy could not be excluded Moderately elevated left atrial pressure grade 2. Right ventricular systolic pressure of 19. No beta-micaela , given sinus bradycardia. Trial of hydrocortisone while in ICU started and then taper down to discontinue Patient eventually was able to be extubated on . Patient was weaned off dopamine drip. Blood pressure was supported with midodrine. Patient subsequently was transferred to telemetry floor. Supplemental oxygen provided and titrated to keep pulse oximetry above 92%. Pulmonary toilet with bronchodilator via HHN provided as needed. Patient was followed-up with chest x-ray. Antibiotic provided as per ID specialist recommendation. Initial and repeated blood culture were negative. Sputum culture revealed MRSA. Urine culture was negative. Patient completed antibiotics. ID specialist recommended to keep patient off antibiotics. Renal parameters and electrolytes were closely monitored, electrolytes corrected as needed, nephrotoxins were avoided. Potassium , magnesium and phosphorus were replaced. Creatinine from 2.6 down to 1.1 and BUN 33 down to 16. Acute kidney injury was likely due to sepsis and resolved. Fur Scraper recommended to avoid any negative chronotropic agents, given sinus bradycardia. Patient was on telemetry and exhibited sinus bradycardia, no pauses. Blood pressure stabilized. Patient remained cardiovascularly stable. Heart rate eventually stabilized , and prior to discharge heart rate 62. Venous duplex on 02/09 revealed acute DVT left lower extremity. Given thrombocytopenia no anticoagulation was recommended by knot bumper. Online Journalist ordered placement of IVC filter by interventional radiology. Patient undergone bedside and video swallow evaluation . Patient failed swallow evaluation. Speech therapist recommended continue n.p.o. status and consider nonoral feeding. Patient subsequently undergone upper endoscopy with PEG placement on 02/15. Patient started on tube feeding with goal rate as per registered public surveyor recommendation. Protein supplements implemented in plan of care. Strict aspiration precaution maintained. Oral diet provided for oral gratification. Bowel regimen instituted. GI prophylaxis provided. Blood sugar was managed with sliding scale of insulin. Hemoglobin A1c 5.4. Hemoglobin and hematocrit were closely monitored with goal to keep hemoglobin above 7. Anemia work-up revealed evidence of anemia of chronic disease. Prior to discharge hemoglobin 9.9 hematocrit 30.9. Thrombocytopenia was multifactorial. Hepatitis panel was negative. HIV status was negative. Patient undergone transfusion of 1 unit of platelet-pheresis while in the hospital. Upon discharge platelet count 74. Wound care provided per surgeon recommendation. Supportive care provided. Neurologist evaluated patient for altered mental status. Per neurologist patient had history of schizophrenia along with metabolic encephalopathy related to renal disease , pulmonary disease and anemia. Patient was unable to make any decision at this point. Psychiatrist followed. Psychiatrist diagnosed patient with paranoid schizophrenia with acute exacerbation Psychiatric medication regimen optimized. Online Journalist followed. Unable to obtain consent for IVC filter. Bioethics consult requested, and was pending. Patient clinically stabilized and was ready for transfer back to residential facility for continuation of care. Patient will need IVC filter placement to be arranged by the residential facility as urgent procedure after consent obtained or bioethics recommendation available. FINAL DIAGNOSES: Acute respiratory failure requiring intubation, status post extubation 02/02 Septic shock -resolved Sepsis MRSA pneumonia, status post treatment Possible UTI Severe thrombocytopenia Acute metabolic encephalopathy Sinus bradycardia Left ventricle systolic dysfunction Cardiomyopathy with ejection fraction 30 to 35% COPD Acute DVT left lower extremity Acute on chronic renal failure Diabetes mellitus Multiply pressure injury , present on admission Paranoid schizophrenia with acute exacerbation History of renal cancer Chronic kidney disease Tobacco abuse Dysphagia Status post upper endoscopy DISCHARGE MEDICATIONS: List of medication was sent to accepting facility. DISCHARGE INSTRUCTIONS: Patient was discharged to the residential facility. Follow up with medical doctor at the facility. I have been assigned to dictate discharge summary for this account. I was not involved in the patient's management. Thelma Cano NP Feb 19, 2019 11:35
== END 2019-02-18 22:55 | disposition short-term general hospital (02) | DRG 870 ==
LOC: EDBD 13:00 → EMR 14:16 → ICU 14:19 → EDBEDREQSVC 15:00 → EDBEDREQ 16:05 → EDBEDREQSVC 17:12 → EDBEDREQ 17:12 → ICU 02-10 09:27 → 2E 02-13 15:56
PROC: 0BH17EZ Insertion of Endotracheal Airway into Trachea, Via Natural or Artificial Opening (ICD-10-PCS; principal; 2019-01-24)
PROC: 06HM33Z Insertion of Infusion Device into Right Femoral Vein, Percutaneous Approach (ICD-10-PCS; principal; 2019-01-24)
PROC: 5A1955Z Respiratory Ventilation, Greater than 96 Consecutive Hours (ICD-10-PCS; principal; 2019-01-24)
PROC: B548ZZA Ultrasonography of Superior Vena Cava, Guidance (ICD-10-PCS; 2019-01-29)
PROC: 02HV33Z Insertion of Infusion Device into Superior Vena Cava, Percutaneous Approach (ICD-10-PCS; 2019-01-29)
PROC: 0DH63UZ Insertion of Feeding Device into Stomach, Percutaneous Approach (ICD-10-PCS; 2019-02-15)
DX: A41.9 Sepsis, unspecified organism (principal); R65.21 Severe sepsis with septic shock; J15.212 Pneumonia due to Methicillin resistant Staphylococcus aureus; G93.41 Metabolic encephalopathy; J96.01 Acute respiratory failure with hypoxia; I13.0 Hypertensive heart and chronic kidney disease with heart failure and stage 1 through stage 4 chronic kidney disease, or unspecified chronic kidney disease; N17.9 Acute kidney failure, unspecified; J44.0 Chronic obstructive pulmonary disease with (acute) lower respiratory infection; I50.20 Unspecified systolic (congestive) heart failure; C64.1 Malignant neoplasm of right kidney, except renal pelvis; F20.0 Paranoid schizophrenia; N39.0 Urinary tract infection, site not specified; E46 Unspecified protein-calorie malnutrition; I82.412 Acute embolism and thrombosis of left femoral vein; I42.9 Cardiomyopathy, unspecified; N18.9 Chronic kidney disease, unspecified; J44.9 Chronic obstructive pulmonary disease, unspecified; L89.150 Pressure ulcer of sacral region, unstageable; L89.891 Pressure ulcer of other site, stage 1; K29.40 Chronic atrophic gastritis without bleeding; E86.0 Dehydration; I73.9 Peripheral vascular disease, unspecified; Z72.0 Tobacco use; Z68.25 Body mass index [BMI] 25.0-25.9, adult; Z78.1 Physical restraint status; D69.6 Thrombocytopenia, unspecified; R13.10 Dysphagia, unspecified; D64.9 Anemia, unspecified; K29.70 Gastritis, unspecified, without bleeding; E11.22 Type 2 diabetes mellitus with diabetic chronic kidney disease
CPT/HCPCS: 31500; 36415; 36569; 36600; 71045; 74018; 74230; 76700; 76770; 76937; 80048; 80053; 80061; 80076; 80150; 80202; 81001; 81003; 82043; 82140; 82164; 82248; 82378; 82550; 82553; 82607; 82728; 82746; 82803; 82962; 83036; 83540; 83550; 83605; 83615; 83735; 83880; 83935; 84100; 84300; 84443; 84478; 84484; 84550; 85007; 85025; 85044; 85060; 85610; 85651; 85730; 86140; 86703; 86705; 86709; 86710; 86803; 86850; 86900; 86901; 87040; 87070; 87081; 87086; 87181; 87205; 87340; 89050; 92610; 93005; 93306; 93970; 94002; 94003; 94150; 94640; 94664; 96361; 96365; 96367; 96368; 96375; 99291; C9399; J1815; J7030; J7620; J8499

== ENCOUNTER 2019-04-22 07:42 | Emergency (ER) | payer MEDICAID, MEDICARE ==
[~2019-04-22] VITALS: Ht 175.3 cm; Wt 63.0 kg
[2019-04-22 07:42] VITALS: BP 111/59
[~2019-04-22 07:42] MED LIST changes: +ACETAMINOPHEN325 M1 ORAL; +ARICEPT5 MG ORAL; -Cefepime HCl 1 GM in D5W 55 ML IVPB ONE; +DOCUSATE SODIU100 MG ORAL; +DULCOLAX10 MG RC; +FERROUS SULFAT325 MG ORAL; +FLEET ENEMA133 ML RECTAL; +LACTULOSE20 GM/301 ORAL; +LIDODERM700 M1 TOPIC; +LOVENOX10 M4 SUBQ; +MILK OF MA400 MG/51 ORAL; +MULTIVITAMINS1 EAC2 ORAL; +MULTIVITAMINS1 EAC8 ORAL; +NEURONTIN100 MG ORAL; +NORCO 5-325 TA1 EACH ORAL; +PLAVIX75 MG ORAL; +PROTONIX40 MG ORAL; +QUETIAPINE FUM200 MG ORAL; +SENNA8.6 M2 PO; +SEROQUEL100 MG ORAL; +VITAMIN B-121000 MCG PO; +VITAMIN B-12500 MCG ORAL; +VITAMIN C500 M1 ORAL; -Vancomycin 1.5 GM in NS 275 ML IVPB ONE; +ZINC SULFATE220 M1 ORAL
--- NOTE | 2019-04-22 08:05 | Emergency Room Report ---
History of Present Illness General Chief Complaint: Malfunctioning Gastric Tube Source: Medical Record, EMS Present Illness HPI This patient presents from a shelter facility. He presents because his G-tube was dislodged. The facility replaced it with a Costello catheter. Patient is feeding tube dependent. There are no other complaints. Allergies: Coded Allergies: No Known Allergies (Unverified , 01/24/19) Patient History Past Medical History: see triage record, old chart reviewed, DM, CAD, COPD, dementia, psych hx, other - Renal Ca, DVT Social History: Denies: smoking, alcohol use, drug use Reviewed Nursing Documentation: PMH: Agreed; PSxH: Agreed Nursing Documentation-PMH Hx Cardiac Problems: Yes Hx Hypertension: Yes Hx COPD: Yes Hx Cancer: Yes Hx Gastrointestinal Problems: Yes Hx Dialysis: No - Chronic Renal Disease Hx Neurological Problems: No - Osteoarthritis Hx Dementia: Yes Hx Memory Loss: Yes Hx Weakness: Yes Review of Systems All Other Systems: limited Physical Exam Vital Signs Date Time Temp Pulse Resp B/P (MAP) Pulse Ox O2 Delivery O2 Flow Rate FiO2 04/22/19 07:42 97.7 56 18 111/59 (76) 98 Room Air Sp02 EP Interpretation: reviewed, normal General Appearance: no apparent distress, alert, GCS 15, non-toxic Head: normocephalic, atraumatic Eyes: bilateral eye normal inspection, bilateral eye PERRL ENT: hearing grossly normal, normal pharynx, no angioedema, normal voice Neck: normal inspection, full range of motion Respiratory: no respiratory distress, no retraction, no accessory muscle use, speaking full sentences Cardiovascular #2: 2+ carotid (R), 2+ carotid (L), 2+ radial (R), 2+ radial (L) , 2+ femoral (R), 2+ femoral (L), 2+ dorsalis pedis (R), 2+ dorsalis pedis (L) Gastrointestinal: non tender, soft, non-distended, no guarding, no rebound, other - Costello catheter located in G-Tube site Rectal: deferred Musculoskeletal: back normal, non-tender Neurologic: alert, responsive, speech normal, no focal defects Psychiatric: mood/affect normal, no suicidal/homicidal ideation Skin: other - See RN skin exam Medical Decision Making Diagnostic Impression: Primary Impression: Malfunction of percutaneous endoscopic gastrostomy (PEG) tube ER Course This patient presents for G-tube replacement. The G-tube was replaced in the typical manner without complication or incident. A KUB was obtained which showed Gastrografin consistent with appropriate placement in the stomach. The patient was returned to the shelter facility. Other X-Ray Diagnostic Results Other X-Ray Diagnostic Results : X-Ray ordered: KUB # of Views/Limited Vs Complete: 1 View Indication: Other - Tube placement EP Interpretation: Yes Interpretation: other - Findings c/w G-tube located in the Stomach ( appropriate placement). Last Vital Signs Date Time Temp Pulse Resp B/P (MAP) Pulse Ox O2 Delivery O2 Flow Rate FiO2 04/22/19 07:42 97.7 56 18 111/59 (76) 98 Room Air Status: improved Disposition: XFER SNF Condition: Improved Patient Instructions: Gastrostomy Tube Home Guide, Adult Doretha See DO Apr 22, 2019 08:05
[2019-04-22 09:35] VITALS: BP 122/65
[2019-04-22 11:10] VITALS: BP 135/70
--- NOTE | 2019-04-22 12:28 | Diagnostic Imaging Report ---
Indication: Gastrostomy check Comparison: None Single view of the abdomen obtained Findings: There is a gastrostomy tube present. This is projected over the stomach. The catheter tubing that is opacified by contrast is oriented transversely. This projects distally in the mid body of the stomach. There is no contrast appreciated in the stomach but there is contrast in the duodenal bulb and in the proximal jejunum. IMPRESSION: Gastrostomy noted. Contrast demonstrated within the duodenum and proximal small bowel. The balloon is poorly seen but is projected in the area of the mid body. There is no extravasation of contrast appreciated.
== END 2019-04-22 11:10 ==
LOC: EDBD 07:42 → EMR 08:05
DX: K94.23 Gastrostomy malfunction (principal); J44.9 Chronic obstructive pulmonary disease, unspecified; C80.1 Malignant (primary) neoplasm, unspecified; I12.9 Hypertensive chronic kidney disease with stage 1 through stage 4 chronic kidney disease, or unspecified chronic kidney disease; N18.9 Chronic kidney disease, unspecified; E11.22 Type 2 diabetes mellitus with diabetic chronic kidney disease; F03.90 Unspecified dementia, unspecified severity, without behavioral disturbance, psychotic disturbance, mood disturbance, and anxiety; I25.10 Atherosclerotic heart disease of native coronary artery without angina pectoris
CPT/HCPCS: 74018; 99284

== ENCOUNTER 2019-06-15 02:11 | Inpatient (IN) | payer MEDICARE ==
[~2019-06-15] VITALS: Ht 175.3 cm; Wt 68.0 kg
[2019-06-15] VITALS (11 sets, daily range): BP systolic 98–127; BP diastolic 44–82
[2019-06-15] MEDS ORDERED: CORTEF5 MG PO (02:28)
[2019-06-15] MEDS ORDERED: BENADRYL ALLERG25 M1 PO (02:28)
[2019-06-15] MEDS ORDERED: VITAMIN C250 MG ORAL (02:28)
[2019-06-15] MEDS ORDERED: XARELTO10 MG ORAL (02:28)
--- NOTE | 2019-06-15 03:02 | Emergency Room Report ---
History of Present Illness General Chief Complaint: Upper Respiratory Illness Source: Patient, Medical Record, EMS Present Illness HPI This is a 68-year-old male with a history of schizophrenia, high blood pressure , neoplasm who presents from a [place] [facility] with chief plaint of fever and pneumonia. He has been coughing and had a fever 101 today. Tylenol was given. Chest x-ray done earlier today was reported by [place] [facility] staff as showing pneumonia. Patient was sent here for evaluation. History is limited on this patient because of his dementia and schizophrenia. He is not cooperative. No nausea or vomiting. No diarrhea. Cough is nonproductive in nature. Nothing made it better. Nothing made it worse. Allergies: Coded Allergies: No Known Allergies (Unverified , 01/24/19) COVID-19 Screening Contact w/high risk pt: No Recent Travel to affected area: No Experienced COVID-19 symptoms?: Yes COVID-19 symptoms experienced: Fever (T>100.4F or >38C), Cough Patient History Past Medical History: see triage record, old chart reviewed, HTN, dementia, psych hx Past Surgical History: other Pertinent Family History: none Social History: Denies: smoking Immunizations: other Reviewed Nursing Documentation: PMH: Agreed; PSxH: Agreed Nursing Documentation-PMH Past Medical History: No History, Except For Hx Cardiac Problems: Yes Hx Hypertension: Yes Hx COPD: Yes Hx Cancer: Yes Hx Gastrointestinal Problems: Yes Hx Dialysis: No - Chronic Renal Disease Hx Neurological Problems: No - Osteoarthritis Hx Dementia: Yes Hx Memory Loss: Yes Hx Weakness: Yes Review of Systems Constitutional: Reports: fever Eye: Denies: eye pain, blurred vision ENT: Denies: ear pain, nose congestion, throat swelling Respiratory: Reports: cough, shortness of breath Cardiovascular: Denies: chest pain, palpitations Gastrointestinal: Denies: abdominal pain, diarrhea, nausea, vomiting Musculoskeletal: Denies: back pain, joint pain Skin: Denies: rash Neurological: Denies: headache, numbness Endocrine: Denies: increased thirst, increased urine Hematologic/Lymphatic: Denies: easy bruising All Other Systems: negative except mentioned in HPI Physical Exam Vital Signs Date Time Temp Pulse Resp B/P (MAP) Pulse Ox O2 Delivery O2 Flow Rate FiO2 06/15/19 02:12 98.2 82 16 100/60 (73) Room Air Vitals unremarkable Sp02 EP Interpretation: reviewed, abnormal General Appearance: well appearing, no apparent distress, alert Head: normocephalic, atraumatic Eyes: bilateral eye PERRL, bilateral eye EOMI ENT: hearing grossly normal, normal pharynx Neck: full range of motion, supple, no meningismus Respiratory: chest non-tender, normal breath sounds, rhonchi Cardiovascular #1: regular rate, rhythm, no murmur Gastrointestinal: normal bowel sounds, non tender, no mass, no organomegaly, no bruit, non-distended Musculoskeletal: back normal, normal range of motion Neurologic: alert, oriented Psychiatric: other - Easily agitated Skin: other - Skin picking and erythema to the left upper chest and arm Medical Decision Making Diagnostic Impression: Primary Impression: Sepsis Qualified Codes: A41.9 - Sepsis, unspecified organism; R65.20 - Severe sepsis without septic shock; N17.9 - Acute kidney failure, unspecified Additional Impressions: HCAP (healthcare-associated pneumonia) Suspected COVID-19 virus infection LILIAM (acute kidney injury) ER Course Patient presents with fever and cough. Chest x-ray showed infiltrates. Wide spectrum antibiotics given. Because he is in a [place] [facility] and has fever and cough, he also has COVID-19 action. Nasal swab sent. Blood pressure stable. It turned out that [place] [facility] gave the wrong report on this patient. He had fever and cough and congestion was sent here to be evaluated. Chest x-ray was not done at the [place] [facility]. Patient will be admitted for IV antibiotics and IV fluid. I contacted Dr. Short for admission. EKG Diagnostic Results Rate: normal Rhythm: NSR ST Segments: other - NSST changes Rhythm Strip Diag. Results EP Interpretation: yes Rate: 90 Rhythm: NSR, no PVC's, no ectopy Chest X-Ray Diagnostic Results Chest X-Ray Diagnostic Results : Chest X-Ray Ordered: Yes # of Views/Limited/Complete: 1 View Indication: Shortness of Breath EP Interpretation: Yes Interpretation: no effusion, no pneumothorax, other - LLL infiltrate Impression: Other - LLL infiltrate Electronically Signed by: Giovany Jarquin MD Last Vital Signs Date Time Temp Pulse Resp B/P (MAP) Pulse Ox O2 Delivery O2 Flow Rate FiO2 06/15/19 02:12 98.2 82 16 100/60 (73) Room Air Status: improved Disposition: ADMITTED INPATIENT Condition: Serious Referrals: Corey Short DO (PCP) Giovany Jarquin MD Jun 15, 2019 03:02
[2019-06-15 03:03] LABS: HEMATOCRIT 35.6 % (42.0-52.0); HEMOGLOBIN 12.4 G/DL (14.2-18.0); MEAN CORPUSCULAR VOLUME 92 FL (80-99); PLATELET COUNT 243 K/UL (150-450); RED BLOOD COUNT 3.88 M/UL (4.70-6.10); RED CELL DISTRIBUTION WIDTH 13.6 % (11.6-14.8); WHITE BLOOD COUNT 20.9 K/UL (4.8-10.8)
[2019-06-15 03:14] LABS: ANION GAP 7 mmol/L (5-15); BLOOD UREA NITROGEN 23 mg/dL (7-18); CALCIUM 8.7 MG/DL (8.5-10.1); CARBON DIOXIDE 32 MMOL/L (21-32); CHLORIDE 103 MMOL/L (98-107); CREATININE 1.7 MG/DL (0.55-1.30); POTASSIUM 4.8 MMOL/L (3.5-5.1); SODIUM 142 MMOL/L (136-145)
[2019-06-15 03:24] LABS: APPEARANCE,URINE CLEAR; BILIRUBIN, URINE NEGATIVE (NEGATIVE); COLOR,URINE PALE YELLOW; GLUCOSE, URINE (UA) NEGATIVE (NEGATIVE); KETONES,URINE NEGATIVE (NEGATIVE); LEUKOCYTE ESTERASE ,URINE NEGATIVE (NEGATIVE); NITRITE,URINE NEGATIVE (NEGATIVE); PH,URINE 6.5 (4.5-8.0); PROTEIN,URINE 2+ (NEGATIVE); UROBILINOGEN,URINE 1 MG/DL (0.0-1.0)
[2019-06-15 03:28] LABS: ALANINE AMINOTRANSFERASE 29 U/L (12-78); ALBUMIN 2.3 G/DL (3.4-5.0); ALBUMIN/GLOBULIN RATIO 0.5 (1.0-2.7); ALKALINE PHOSPHATASE 110 U/L (46-116); ASPARTATE AMINO TRANSFERASE 30 U/L (15-37); BILIRUBIN,TOTAL 0.4 MG/DL (0.2-1.0); CKMB 1.4 NG/ML (0.0-3.6); CREATINE KINASE 76 U/L (26-308)
[2019-06-15] MEDS ORDERED: Cefepime HCl 1 GM in D5W 55 ML IVPB ONE (03:45)
--- NOTE | 2019-06-15 03:55 | Emergency Room Report ---
Sepsis Event Note Evaluation Current Stage of Sepsis: Sepsis Possible Source: Pulmonary Focused Exam Allergies: Coded Allergies: No Known Allergies (Unverified , 01/24/19) Date Exam Occurred: Jun 15, 2019 Time Exam Occurred: 03:54 Laboratory Studies Laboratory Tests Test 06/15/19 02:45 06/15/19 03:03 White Blood Count 20.9 K/UL (4.8-10.8) H Red Blood Count 3.88 M/UL (4.70-6.10) L Hemoglobin 12.4 G/DL (14.2-18.0) L Hematocrit 35.6 % (42.0-52.0) L Mean Corpuscular Volume 92 FL (80-99) Mean Corpuscular Hemoglobin 32.0 PG (27.0-31.0) H Mean Corpuscular Hemoglobin Concent 34.8 G/DL (32.0-36.0) Red Cell Distribution Width 13.6 % (11.6-14.8) Platelet Count 243 K/UL (150-450) Mean Platelet Volume 4.7 FL (6.5-10.1) L Neutrophils (%) (Auto) % (45.0-75.0) Lymphocytes (%) (Auto) % (20.0-45.0) Monocytes (%) (Auto) % (1.0-10.0) Eosinophils (%) (Auto) % (0.0-3.0) Basophils (%) (Auto) % (0.0-2.0) Differential Total Cells Counted 100 Neutrophils % (Manual) 69 % (45-75) Lymphocytes % (Manual) 20 % (20-45) Monocytes % (Manual) 10 % (1-10) Eosinophils % (Manual) 1 % (0-3) Basophils % (Manual) 0 % (0-2) Band Neutrophils 0 % (0-8) Platelet Estimate Adequate Platelet Morphology Normal Sodium Level 142 MMOL/L (136-145) Potassium Level 4.8 MMOL/L (3.5-5.1) Chloride Level 103 MMOL/L (98-107) Carbon Dioxide Level 32 MMOL/L (21-32) Anion Gap 7 mmol/L (5-15) Blood Urea Nitrogen 23 mg/dL (7-18) H Creatinine 1.7 MG/DL (0.55-1.30) H Estimat Glomerular Filtration Rate 40.3 mL/min (>60) Glucose Level 121 MG/DL (74-106) H Lactic Acid Level 3.80 mmol/L (0.4-2.0) H Calcium Level 8.7 MG/DL (8.5-10.1) Total Bilirubin 0.4 MG/DL (0.2-1.0) Aspartate Amino Transf (AST/SGOT) 30 U/L (15-37) Alanine Aminotransferase (ALT/SGPT) 29 U/L (12-78) Alkaline Phosphatase 110 U/L (46-116) Total Creatine Kinase 76 U/L (26-308) Creatine Kinase MB 1.4 NG/ML (0.0-3.6) Creatine Kinase MB Relative Index 1.8 Troponin I 0.023 ng/mL (0.000-0.056) Total Protein 6.9 G/DL (6.4-8.2) Albumin 2.3 G/DL (3.4-5.0) L Globulin 4.6 g/dL Albumin/Globulin Ratio 0.5 (1.0-2.7) L Urine Color Pale yellow Urine Appearance Clear Urine pH 6.5 (4.5-8.0) Urine Specific [place] 1.015 (1.005-1.035) Urine Protein 2+ (NEGATIVE) H Urine Glucose (UA) Negative (NEGATIVE) Urine Ketones Negative (NEGATIVE) Urine Blood 5+ (NEGATIVE) H Urine Nitrite Negative (NEGATIVE) Urine Bilirubin Negative (NEGATIVE) Urine Urobilinogen 1 MG/DL (0.0-1.0) H Urine Leukocyte Esterase Negative (NEGATIVE) Urine RBC 40-60 /HPF (0 - 0) H Urine WBC 0-2 /HPF (0 - 0) Urine Squamous Epithelial Cells None /LPF (NONE/OCC) Urine Bacteria Few /HPF (NONE) Vital Signs Last 24 Hour Vital Signs Date Time Temp Pulse Resp B/P (MAP) Pulse Ox O2 Delivery O2 Flow Rate FiO2 06/15/19 02:17 82 16 Room Air 06/15/19 02:17 98.2 82 16 100/60 96 Room Air 06/15/19 02:12 98.2 82 16 100/60 (73) Room Air Respiratory Exam: Rhonchi Cardiovascular Exam: RRR Capillary Refill: Less Than 2 Seconds Peripheral Pulse: Strong Pulse Location: Radial Skin Exam: Normal Turgor Jarquin,Giovany MD Jun 15, 2019 03:55
[2019-06-15] MEDS ORDERED: Miralax 17gm pkt ORAL PRN (08:30)
[2019-06-15] MEDS ORDERED: Nitroglycerin Subl 0.4mg tab SL PRN (08:30)
[2019-06-15] MEDS ORDERED: Promethazine/Codeine 5ml UD ORAL PRN (08:30)
[2019-06-15] MEDS ORDERED: Albuterol/Ipratropium 3ml neb HHN PRN (08:30)
[2019-06-15] MEDS: Xarelto 10mg tab ORAL SCH (09:51)
[2019-06-15] MEDS: Donepezil 5mg Tab ORAL SCH (09:51)
[2019-06-15] MEDS ORDERED: Vancomycin 1.25 GM in NS 275 ML IVPB ONE (10:00)
--- NOTE | 2019-06-15 10:55 | Diagnostic Imaging Report ---
Indication: Cough and shortness of breath for one day Technique: One view of the chest Comparison: 02/15/2019 Findings: There is mild interstitial prominence in the right upper lobe and left perihilar region. This is much less extensive than was seen on prior exam of 02/15/2019. The pleural spaces are clear. The heart size is normal. There is unusual appearance of both distal clavicles which appears chronic, unchanged Impression: Right upper lobe and left perihilar mild interstitial opacities. This is nonspecific, could indicate infectious interstitial disease is, residual chronic interstitial disease, or mild pulmonary edema, among many other possibilities
[2019-06-15] MEDS: Cefepime HCl 1 GM in D5W 55 ML IV SCH (15:29)
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
--- NOTE | 2019-06-15 17:00 | History and Physical Report ---
DATE OF ADMISSION: 06/15/2019 DATE AND TIME SEEN: 06/15/2019, 1 p.m. CONSULTANTS: 1. Ron Anthony M.D. 2. Michael Tesfaye M.D. CHIEF COMPLAINT: Fever, shortness of breath, pneumonia, pending COVID test. BRIEF HISTORY: This is a 68-year-old male from [facility], presented with above-mentioned diagnosis, sent to [facility], diagnosed with the above, awaiting bed placement currently. Mask in place, sleeping in bed in the ER gurney, not really responding to questions. REVIEW OF SYSTEMS: Unavailable. PAST MEDICAL HISTORY: Include diabetes, LILIAM, PVD, right kidney cancer, cardiomyopathy, history of DVT. PAST SURGICAL HISTORY: G-tube. ALLERGIES: Denies. MEDICATIONS: Include cefepime, vancomycin, temazepam, Neurontin, Seroquel, Xarelto, MiraLAX, promethazine, albuterol, vancomycin. SOCIAL HISTORY: Unable to obtain secondary to the patient's condition and very lethargic. PHYSICAL EXAMINATION: VITAL SIGNS: Temperature is 98, pulse 76, respirations 18, blood pressure 116/64. GENERAL: Sleepy in bed. HEENT: Normocephalic, atraumatic. NECK: Trachea midline. CARDIOVASCULAR: No peripheral edema. PULMONARY: Breathing comfortably on room air. ABDOMEN: No apparent wounds noted. EXTREMITIES: No cyanosis or clubbing. LABORATORY AND DIAGNOSTIC DATA: Labs at this time show white count 20, hemoglobin and hematocrit 12/35, platelets 243,000. BUN and creatinine 23/1.7, glucose 121, albumin 2.3. Urinalysis show 5+ blood, 2+ protein. ASSESSMENT: 1. Fever. 2. Shortness breath. 3. Pneumonia. 4. Sepsis. 5. Leukocytosis. 6. Pending COVID results. 7. Anemia. 8. Diabetes. 9. LILIAM. 10. PVD. 11. Malnutrition. 12. Right kidney cancer. 13. Cardiomyopathy. 14. History of DVT. PLAN: 1. O2 and pulmonary treatment. 2. Antibiotics per Infectious Disease. 3. Blood pressure, blood sugar, pain control. 4. Dietary followup. 5. Resume home medications. 6. PT and dietary evaluation. 7. CBC, BMP in the morning. 8. We will continue to follow this patient. Corey Short D.O. DR: DANTE JOB#: [id number] CC:
[2019-06-15] MEDS ORDERED: Acetaminophen 650mg/20.3ml GT PRN (18:30)
[2019-06-15] MEDS: D5 1/2NS 1,000 ML IV SCH (20:00)
[2019-06-16] VITALS: BP_SYST 101; BP_DIAS 58; BP_DIAS 60
[2019-06-16 04:00] VITALS: BP 97/58
[2019-06-16 08:00] VITALS: BP 98/67
--- NOTE | 2019-06-16 09:02 | General Progress Note ---
Assessment/Plan Problem List: (1) DM (diabetes mellitus) ICD Codes: E11.9 - Type 2 diabetes mellitus without complications SNOMED: 78528321 (2) Feeding by G-tube ICD Codes: Z93.1 - Gastrostomy status SNOMED: 796724279, 377883689, 025768633 (3) LILIAM (acute kidney injury) ICD Codes: N17.9 - Acute kidney failure, unspecified SNOMED: 54178716, 8029744 (4) Sepsis ICD Codes: A41.9 - Sepsis, unspecified organism SNOMED: 12795643, 763877594 Qualifiers: Qualified Codes: A41.9 - Sepsis, unspecified organism; R65.20 - Severe sepsis without septic shock; N17.9 - Acute kidney failure, unspecified (5) Suspected COVID-19 virus infection ICD Codes: R68.89 - Other general symptoms and signs SNOMED: 912091700 (6) PVD (peripheral vascular disease) ICD Codes: I73.9 - Peripheral vascular disease, unspecified SNOMED: 577523569 (7) Encounter for PEG (percutaneous endoscopic gastrostomy) ICD Codes: Z43.1 - Encounter for attention to gastrostomy SNOMED: 056772980, 463790148 Status: unchanged Assessment/Plan: o2 pulm tx abx pt diet cbc bmp am Subjective Constitutional: Reports: weakness Allergies: Coded Allergies: No Known Allergies (Unverified , 01/24/19) All Systems: reviewed and negative except above Subjective o2nc sleep Objective Last 24 Hour Vital Signs Date Time Temp Pulse Resp B/P (MAP) Pulse Ox O2 Delivery O2 Flow Rate FiO2 06/16/19 04:00 98.1 95 24 97/58 (71) 97 06/16/19 04:00 88 06/16/19 04:00 Nasal Cannula 4.0 06/16/19 00:00 95 06/16/19 00:00 97.9 100 24 101/58 (72) 97 06/16/19 00:00 Nasal Cannula 4.0 06/15/19 20:00 98.8 106 22 111/60 (77) 97 06/15/19 20:00 119 06/15/19 20:00 Nasal Cannula 4.0 06/15/19 17:15 107 06/15/19 16:56 Nasal Cannula 2.0 06/15/19 16:00 99.7 122 22 127/82 (97) 95 06/15/19 15:44 98.1 80 19 112/70 98 Nasal Cannula 2.0 06/15/19 15:02 97.8 78 18 108/72 99 Room Air 06/15/19 14:05 98.1 68 16 102/66 95 Nasal Cannula 06/15/19 14:00 97.8 76 18 100/68 100 Room Air 06/15/19 12:00 97.9 72 18 98/71 95 Room Air 06/15/19 10:00 97.9 76 18 119/64 99 Room Air Intake and Output 06/15/19 06/16/19 18:59 06:59 Intake Total 55 ml 675 ml Output Total 850 ml Balance 55 ml -175 ml Intake IV Total 55 ml 675 ml Output Urine Total 850 ml # Voids 1 Laboratory Tests 06/16/19 08:35: White Blood Count [Pending], Red Blood Count [Pending], Hemoglobin [Pending], Hematocrit [Pending], Mean Corpuscular Volume [Pending], Mean Corpuscular Hemoglobin [Pending], Mean Corpuscular Hemoglobin Concent [Pending], Red Cell Distribution Width [Pending], Platelet Count [Pending], Mean Platelet Volume [ Pending], Neutrophils (%) (Auto) [Pending], Lymphocytes (%) (Auto) [Pending], Monocytes (%) (Auto) [Pending], Eosinophils (%) (Auto) [Pending], Basophils (%) (Auto) [Pending], Sodium Level [Pending], Potassium Level [Pending], Chloride Level [Pending], Carbon Dioxide Level [Pending], Blood Urea Nitrogen [Pending], Creatinine [Pending], Estimat Glomerular Filtration Rate [Pending], Glucose Level [Pending], Calcium Level [Pending], Phosphorus Level [Pending], Albumin [ Pending], Random Vancomycin Level [Pending] Height (Feet): 5 Height (Inches): 9.00 Weight (Pounds): 150 General Appearance: lethargic EENT: normal ENT inspection Neck: normal alignment Cardiovascular: normal rate, regular rhythm Extremities: normal inspection Skin: normal pigmentation Corey Short DO Jun 16, 2019 09:02
[2019-06-16 09:07] LABS: BASOPHILS % (AUTO) 0.7 % (0.0-2.0); EOSINOPHILS % (AUTO) 2.3 % (0.0-3.0); HEMATOCRIT 34.8 % (42.0-52.0); LYMPHOCYTES % (AUTO) 16.2 % (20.0-45.0); MEAN CORPUSCULAR VOLUME 91 FL (80-99); MONOCYTES % (AUTO) 13.1 % (1.0-10.0); NEUTROPHILS % (AUTO) 67.8 % (45.0-75.0); PLATELET COUNT 238 K/UL (150-450); RED CELL DISTRIBUTION WIDTH 13.8 % (11.6-14.8); WHITE BLOOD COUNT 16.1 K/UL (4.8-10.8)
[2019-06-16] MEDS: Xarelto 10mg tab ORAL SCH (09:15)
[2019-06-16] MEDS: Donepezil 5mg Tab ORAL SCH (09:15)
[2019-06-16 09:16] LABS: ANION GAP 6 mmol/L (5-15); BLOOD UREA NITROGEN 19 mg/dL (7-18); CALCIUM 8.6 MG/DL (8.5-10.1); CARBON DIOXIDE 27 MMOL/L (21-32); CHLORIDE 104 MMOL/L (98-107); CREATININE 1.1 MG/DL (0.55-1.30); POTASSIUM 4.1 MMOL/L (3.5-5.1); SODIUM 137 MMOL/L (136-145)
[2019-06-16] MEDS: D5 1/2NS 1,000 ML IV SCH ×2 (09:16→23:02)
[2019-06-16 09:25] LABS: ANION GAP 7 mmol/L (5-15); BLOOD UREA NITROGEN 19 mg/dL (7-18); CALCIUM 8.7 MG/DL (8.5-10.1); CARBON DIOXIDE 28 MMOL/L (21-32); CHLORIDE 103 MMOL/L (98-107); CREATININE 1.1 MG/DL (0.55-1.30); PHOSPHORUS 2.9 MG/DL (2.5-4.9); POTASSIUM 4.1 MMOL/L (3.5-5.1); SODIUM 138 MMOL/L (136-145)
--- NOTE | 2019-06-16 11:01 | Consultation ---
History of Present Illness General Date patient seen: Jun 16, 2019 Reason for Hospitalization: Upper Respiratory Illness Present Illness HPI This is a 68-year-old male with known to me from prior admissions who presents to [facility] for evaluation of fever URI CO VID evaluation. On admission patient identified to have abnormal punched-out lesions in his upper extremity back lower extremity and decubitus ulcers as well as potential ischemic. Labs noted. Exam performed. Surgery called to evaluate and assist with care. Patient seen, patient evaluated, chart reviewed patient unaware of how long he has had these for and states that they do significantly hurt. On palpation during evaluation they were tender and uncomfortable. Allergies: Coded Allergies: No Known Allergies (Unverified , 01/24/19) COVID-19 Screening Contact w/high risk pt: No Recent Travel to affected area: No Experienced COVID-19 symptoms?: Yes COVID-19 symptoms experienced: Fever (T>100.4F or >38C), Cough Medication History Scheduled Ascorbic Acid* (Vitamin C*), 500 MG ORAL DAILY, (Reported) Ascorbic Acid* (Vitamin C*), 250 MG ORAL DAILY, (Reported) Clopidogrel Bisulfate* (Plavix*), 75 MG ORAL DAILY, (Reported) Cyanocobalamin (Vitamin B-12) (Vitamin B-12), 1,000 MCG PO DAILY, (Reported) Docusate Sodium* (Docusate Sodium*), 100 MG ORAL DAILY, (Reported) Donepezil Hcl* (Aricept*), 5 MG ORAL DAILY, (Reported) Enoxaparin* (Lovenox*), 40 MG SUBQ DAILY, (Reported) Ferrous Sulfate* (Ferrous Sulfate*), 325 MG ORAL DAILY, (Reported) Gabapentin* (Neurontin*), 300 MG ORAL THREE TIMES A DAY, (Reported) Lactulose (Lactulose*), 30 ML ORAL DAILY, (Reported) Lidocaine Patch* (Lidoderm Patch*), 1 PATCH TOPIC DAILY, (Reported) Multivitamin With Minerals (Multivitamins With Minerals*), 1 TAB ORAL DAILY, ( Reported) Pantoprazole* (Protonix*), 40 MG ORAL DAILY, (Reported) Quetiapine Fumarate* (Seroquel*), 100 MG ORAL TWICE A DAY, (Reported) Quetiapine Fumarate* (Seroquel*), 200 MG ORAL QHS, (Reported) Rivaroxaban (Xarelto*), 20 MG ORAL DAILY, (Reported) Sennosides (Senna), 2 TAB PO QHS, (Reported) Zinc Sulfate (Zinc Sulfate*), 220 MG ORAL DAILY, (Reported) Scheduled PRN Acetaminophen* (Acetaminophen 325MG Tablet*), 650 MG ORAL Q4H PRN for Mild Pain/ Temp > 100.5, (Reported) Bisacodyl (Dulcolax), 10 MG RC PRN PRN for IF MOM INEFFECTIVE, (Reported) Hydrocodone Bit/Acetaminophen 5-325* ([place] 5-325*), 1 TAB ORAL Q4H PRN for Severe Pain (Pain Scale 7-10), (Reported) Magnesium Hydroxide* (Milk Of Magnesia*), 30 ML ORAL DAILY PRN for Constipation, (Reported) Na Phos,M-B/Na Phos,Di-Ba* (Fleet Enema*), 133 ML RECTAL DAILY PRN for IF DULCOLAX INEFFECTIVE, (Reported) Miscellaneous Medications Diphenhydramine Hcl (Benadryl Allergy), 25 MG PO, (Reported) Hydrocortisone (Cortef), 10 MG PO, (Reported) Patient History Limited by: medical condition History Provided By: Patient, Medical Record, PMD Healthcare decision maker Resuscitation status Full Code Advanced Directive on File Past Medical/Surgical History Past Medical/Surgical History: (1) Thrombocytopenia (2) Acute DVT (deep venous thrombosis) (3) DVT (deep venous thrombosis) (4) HCAP (healthcare-associated pneumonia) (5) Sepsis (6) DM (diabetes mellitus) (7) Feeding by G-tube (8) LILIAM (acute kidney injury) (9) Suspected COVID-19 virus infection (10) Wound, open (11) Chronic kidney disease (12) Malignant neoplasm of right kidney (13) PVD (peripheral vascular disease) (14) Schizophrenia (15) Acute respiratory failure (16) Septic shock (17) Systolic heart failure (18) Renal failure (ARF), acute on chronic (19) Bradyarrhythmia (20) Dysphagia (21) Encounter for PEG (percutaneous endoscopic gastrostomy) (22) cardiomyopathy with EF of 35% Review of Systems Review of Symptoms General ROS: no weight loss or fever Psychological ROS: no depression or mood changes, no memory loss Ophthalmic ROS: no visual changes or eye irritation ENT ROS: no nasal congestion, hearing loss, dizziness Allergy and Immunology ROS: no allergic symptoms or urticaria Hematological and Lymphatic ROS: no swollen glands, unusual bleeding or bruising Endocrine ROS: no polyuria, polydipsia, weight changes, temperature intolerance Respiratory ROS: no cough, shortness of breath, or wheezing Cardiovascular ROS: no chest pain or dyspnea on exertion Gastrointestinal ROS: denies abdominal pain, bright red blood in stool. Musculoskeletal ROS: no myalgias or arthralgias Neurological ROS: no TIA or stroke symptoms Dermatological ROS: no new or changing skin lesions, rashes or pruritis Physical Exam Physical Exam General appearance: alert, cooperative, no distress, appears stated age Head: Normocephalic, without obvious abnormality, atraumatic Eyes: conjunctivae/corneas clear. PERRL, EOM's intact. Fundi benign Throat: Lips, mucosa, and tongue normal. Teeth and gums normal Neck: supple, symmetrical, trachea midline, no adenopathy, thyroid: not enlarged, symmetric, no tenderness/mass/nodules, no carotid bruit and no JVD Lungs: clear to auscultation bilaterally Heart: regular rate and rhythm, S1, S2 normal, no murmur, click, rub or gallop Abdomen: soft, non-tender. Bowel sounds normal. No masses, no organomegaly Extremities: extremities see below Pulses: 2+ and symmetric Skin: See below Neurologic: Grossly normal Last 24 Hour Vital Signs Date Time Temp Pulse Resp B/P (MAP) Pulse Ox O2 Delivery O2 Flow Rate FiO2 06/16/19 08:00 100.0 98 25 98/67 (77) 99 06/16/19 04:00 98.1 95 24 97/58 (71) 97 06/16/19 04:00 88 06/16/19 04:00 Nasal Cannula 4.0 06/16/19 00:00 95 06/16/19 00:00 97.9 100 24 101/58 (72) 97 06/16/19 00:00 Nasal Cannula 4.0 06/15/19 20:00 98.8 106 22 111/60 (77) 97 06/15/19 20:00 119 06/15/19 20:00 Nasal Cannula 4.0 06/15/19 17:15 107 06/15/19 16:56 Nasal Cannula 2.0 06/15/19 16:00 99.7 122 22 127/82 (97) 95 06/15/19 15:44 98.1 80 19 112/70 98 Nasal Cannula 2.0 06/15/19 15:02 97.8 78 18 108/72 99 Room Air 06/15/19 14:05 98.1 68 16 102/66 95 Nasal Cannula 06/15/19 14:00 97.8 76 18 100/68 100 Room Air 06/15/19 12:00 97.9 72 18 98/71 95 Room Air Intake and Output 06/15/19 06/16/19 19:00 07:00 Intake Total 55 ml 750 ml Output Total 850 ml Balance 55 ml -100 ml Intake IV Total 55 ml 750 ml Output Urine Total 850 ml # Voids 1 Laboratory Tests Test 06/16/19 08:35 White Blood Count 16.1 K/UL (4.8-10.8) H Red Blood Count 3.80 M/UL (4.70-6.10) L Hemoglobin 12.0 G/DL (14.2-18.0) L Hematocrit 34.8 % (42.0-52.0) L Mean Corpuscular Volume 91 FL (80-99) Mean Corpuscular Hemoglobin 31.6 PG (27.0-31.0) H Mean Corpuscular Hemoglobin Concent 34.5 G/DL (32.0-36.0) Red Cell Distribution Width 13.8 % (11.6-14.8) Platelet Count 238 K/UL (150-450) Mean Platelet Volume 5.1 FL (6.5-10.1) L Neutrophils (%) (Auto) 67.8 % (45.0-75.0) Lymphocytes (%) (Auto) 16.2 % (20.0-45.0) L Monocytes (%) (Auto) 13.1 % (1.0-10.0) H Eosinophils (%) (Auto) 2.3 % (0.0-3.0) Basophils (%) (Auto) 0.7 % (0.0-2.0) Sodium Level 137 MMOL/L (136-145) Potassium Level 4.1 MMOL/L (3.5-5.1) Chloride Level 104 MMOL/L (98-107) Carbon Dioxide Level 27 MMOL/L (21-32) Anion Gap 6 mmol/L (5-15) Blood Urea Nitrogen 19 mg/dL (7-18) H Creatinine 1.1 MG/DL (0.55-1.30) Estimat Glomerular Filtration Rate > 60 mL/min (>60) Glucose Level 82 MG/DL (74-106) Calcium Level 8.6 MG/DL (8.5-10.1) Phosphorus Level 2.9 MG/DL (2.5-4.9) Albumin 2.0 G/DL (3.4-5.0) L Random Vancomycin Level 20.6 ug/mL Height (Feet): 5 Height (Inches): 9.00 Weight (Pounds): 150 Medications Current Medications Medications (Trade) Dose Ordered Sig/Ricardo Route PRN Reason Start Time Stop Time Status Last Admin Dose Admin Acetaminophen (Tylenol) 650 mg Q4H PRN GT Mild Pain/Temp > 100.5 06/15/19 18:30 07/15/19 18:29 Albuterol/ Ipratropium (Albuterol/ Ipratropium) 3 ml Q4H PRN HHN Shortness of Breath 06/15/19 08:30 06/20/19 08:29 Cefepime HCl 1 gm/ Dextrose 55 ml @ 110 mls/hr Q24H IV 06/15/19 15:00 06/22/19 14:59 06/15/19 15:29 Dextrose/Sodium Chloride 1,000 ml @ 75 mls/hr [id number] IV 06/15/19 20:00 07/15/19 19:59 06/16/19 09:16 Donepezil HCl (Aricept) 5 mg DAILY ORAL 06/15/19 09:00 07/15/19 08:59 06/16/19 09:15 Gabapentin (Neurontin) 300 mg THREE TIMES A DAY ORAL 06/15/19 09:00 07/15/19 08:59 06/16/19 09:15 Nitroglycerin (Ntg) 0.4 mg Q5M PRN SL Prn Chest Pain 06/15/19 08:30 07/15/19 08:29 Ondansetron HCl (Zofran) 4 mg Q6H PRN IVP Nausea & Vomiting 06/15/19 08:30 07/15/19 08:29 Polyethylene Glycol (Miralax) 17 gm DAILYPRN PRN ORAL Constipation 06/15/19 08:30 07/15/19 08:29 Promethazine HCl/ Codeine (Phenergan with Codeine) 5 ml Q4H PRN ORAL For Cough 06/15/19 08:30 07/15/19 08:29 Quetiapine Fumarate (SEROqueL) 100 mg TWICE A DAY ORAL 06/15/19 09:00 07/30/19 08:59 06/16/19 09:15 Rivaroxaban (Xarelto) 20 mg DAILY ORAL 06/15/19 09:00 09/13/19 08:59 06/16/19 09:15 Temazepam (Restoril) 15 mg HSPRN PRN ORAL Insomnia 06/15/19 08:30 06/22/19 08:29 Vancomycin HCl (Vanco rx to dose) 1 ea DAILY PRN MISC Per rx protocol 06/15/19 08:30 07/15/19 08:29 Vancomycin HCl 750 mg/Dextrose 275 ml @ 183.333 mls/hr Q24H IVPB 06/16/19 18:00 06/21/19 17:59 Assessment/Plan Problem List: (1) Sepsis Assessment & Plan: This is a 68-year-old male that presented with fevers, leukocytosis, lactic acidosis. Patient septic and requiring work-up care and management. COPD ID evaluation. IV antibiotics per infectious disease. IV fluid hydration. Lactic improving with hydration. Patient awake alert responsive otherwise comfortable but does have wounds that are very tender. Wounds unlikely etiology of infection. Pending microbiology. Labs reviewed. ICD Codes: A41.9 - Sepsis, unspecified organism SNOMED: 52319347, 874470064 Qualifiers: Qualified Codes: A41.9 - Sepsis, unspecified organism; R65.20 - Severe sepsis without septic shock; N17.9 - Acute kidney failure, unspecified (2) DM (diabetes mellitus) ICD Codes: E11.9 - Type 2 diabetes mellitus without complications SNOMED: 61332621 (3) Feeding by G-tube Assessment & Plan: DAILY ESTIMATED NEEDS: Needs based on Pulmonary, sepsis, wounds 69kg 25-30 kcals/kg 2213-9300 total kcals 1.25-2 g protein/kg 86-138 g total protein 25-30 mL/kg 7571-3526 total fluid mLs NUTRITION DIAGNOSIS: *Swallowing difficulty R/T dysphagia, confusion as evidenced by s/p PEG placement, on oral diet at SNF, now w/ recs for GT feeds pending VSS. CURRENT DIET:NPO PO DIET RECOMMENDATIONS: IF ORAL GRAT INDICATED: rec liberalized REGULAR/ texture per COIN WRAPPING MACHINE OPERATOR ENTERAL NUTRITION RECOMMENDATIONS: Glucerna 1.5 @ 50ml/hr x24 hrs to provide 1200ml, 1800 kcal, 99g pro, 911ml free H2o As medically able, rec start GT feeds to meet est nutritional needs - Initiate Glucerna 1.5 @ 20ml/hr x 6 hrs - Advance 10ml q 4-6 hrs as tolerated to goal rate. - HOB over 30 degrees/ water flush per MD ADDITIONAL RECOMMENDATIONS: 1) Per SNF: HT 71 inches, rec calibrated bed scale wts for eval 2) Updated HgA1C for eval 3) Wound care: w/ diet, rec DANIELA BID (via GT or oral) + Vit C 250mg BID F/up w/ WC eval 4) COIN WRAPPING MACHINE OPERATOR re-eval for possible oral grat w/ GT feeds . ICD Codes: Z93.1 - Gastrostomy status SNOMED: 311698437, 667500380, 515726238 (4) LILIAM (acute kidney injury) ICD Codes: N17.9 - Acute kidney failure, unspecified SNOMED: 47742600, 4128947 (5) Suspected COVID-19 virus infection ICD Codes: R68.89 - Other general symptoms and signs SNOMED: 247749667 (6) Thrombocytopenia ICD Codes: D69.6 - Thrombocytopenia, unspecified SNOMED: 589785054 (7) DVT (deep venous thrombosis) ICD Codes: I82.409 - Acute embolism and thrombosis of unspecified deep veins of unspecified lower extremity SNOMED: 858024586 (8) HCAP (healthcare-associated pneumonia) ICD Codes: J18.9 - Pneumonia, unspecified organism SNOMED: 403160513, 786591314 (9) Acute DVT (deep venous thrombosis) ICD Codes: I82.409 - Acute embolism and thrombosis of unspecified deep veins of unspecified lower extremity SNOMED: 306812072456670 (10) Wound, open Assessment & Plan: Patient presented on admission with multiple wounds some decubitus some potential ischemic and open. Interesting location and etiology wounds. Patient unsure of how he is obtain them but states they do feel uncomfortable. Patient identified to have a decubitus ulcer stage IV left heel 3 cm x 2 cm with a few millimeters deep. No active drainage. Dry eschar noted. Furthermore patient identified to have a ischemic necrotic ulcer on his lower right distal third ray. No active drainage. Mild cellulitis. Patient identified also to have a punched-out lesion in his upper back 2 cm x 1 cm x 4 mm deep. Periwound maceration noted. Erythema. Furthermore patient identified to have a punched out open lesion on his left upper extremity. 2 cm x 1 cm x 3 mm deep. Neither look actively infected. Mild serous drainage no pus noted. Periwound is macerated with some erythema. Treatment plan wash wounds daily with normal saline. Swab left heel and right toe ulcer with Betadine. Cover with foam dressing. Applied daily and as needed Apply Thera honey gauze to upper back and left upper extremity open wounds. Cover with foam dressing. Daily and as needed Turn every 2 hours nutritional optimization thank you will follow the recommendation Offload heels with pillow ICD Codes: T14.8XXA - Other injury of unspecified body region, initial encounter SNOMED: 330543307 (11) Chronic kidney disease ICD Codes: N18.9 - Chronic kidney disease, unspecified SNOMED: 774065584 (12) Malignant neoplasm of right kidney ICD Codes: C64.1 - Malignant neoplasm of right kidney, except renal pelvis SNOMED: 769193275 (13) PVD (peripheral vascular disease) ICD Codes: I73.9 - Peripheral vascular disease, unspecified SNOMED: 851845616 (14) Schizophrenia ICD Codes: F20.9 - Schizophrenia, unspecified SNOMED: 46429092 (15) Acute respiratory failure ICD Codes: J96.00 - Acute respiratory failure, unspecified whether with hypoxia or hypercapnia SNOMED: 91208697 (16) Septic shock ICD Codes: A41.9 - Sepsis, unspecified organism; R65.21 - Severe sepsis with septic shock SNOMED: 27026281 (17) Systolic heart failure ICD Codes: I50.20 - Unspecified systolic (congestive) heart failure SNOMED: 604770912 (18) Renal failure (ARF), acute on chronic ICD Codes: N17.9 - Acute kidney failure, unspecified; N18.9 - Chronic kidney disease, unspecified SNOMED: 508369066 (19) Bradyarrhythmia ICD Codes: I49.8 - Other specified cardiac arrhythmias SNOMED: 847328641 (20) Dysphagia ICD Codes: R13.10 - Dysphagia, unspecified SNOMED: 38100707, 175371165 (21) Encounter for PEG (percutaneous endoscopic gastrostomy) ICD Codes: Z43.1 - Encounter for attention to gastrostomy SNOMED: 730649910, 314882527 (22) cardiomyopathy with EF of 35% Mauricio Anne Jun 16, 2019 11:01
--- NOTE | 2019-06-16 11:41 | Consultation ---
History of Present Illness General Date patient seen: Jun 16, 2019 Chief Complaint: Upper Respiratory Illness Referring physician: Dr. Short Present Illness HPI 68 year old make with hx of dementia, schizophrenia, PVD with grafts, COPD, ? renal cell cancer, detention resident presented to ER with CC of increasing shortness of breath. His CXR in detention confirmed the dx of pneumonia. He had a temp of 101 at that facilityb as well. Allergies: Coded Allergies: No Known Allergies (Unverified , 01/24/19) Medication History Scheduled Ascorbic Acid* (Vitamin C*), 500 MG ORAL DAILY, (Reported) Ascorbic Acid* (Vitamin C*), 250 MG ORAL DAILY, (Reported) Clopidogrel Bisulfate* (Plavix*), 75 MG ORAL DAILY, (Reported) Cyanocobalamin (Vitamin B-12) (Vitamin B-12), 1,000 MCG PO DAILY, (Reported) Docusate Sodium* (Docusate Sodium*), 100 MG ORAL DAILY, (Reported) Donepezil Hcl* (Aricept*), 5 MG ORAL DAILY, (Reported) Enoxaparin* (Lovenox*), 40 MG SUBQ DAILY, (Reported) Ferrous Sulfate* (Ferrous Sulfate*), 325 MG ORAL DAILY, (Reported) Gabapentin* (Neurontin*), 300 MG ORAL THREE TIMES A DAY, (Reported) Lactulose (Lactulose*), 30 ML ORAL DAILY, (Reported) Lidocaine Patch* (Lidoderm Patch*), 1 PATCH TOPIC DAILY, (Reported) Multivitamin With Minerals (Multivitamins With Minerals*), 1 TAB ORAL DAILY, ( Reported) Pantoprazole* (Protonix*), 40 MG ORAL DAILY, (Reported) Quetiapine Fumarate* (Seroquel*), 100 MG ORAL TWICE A DAY, (Reported) Quetiapine Fumarate* (Seroquel*), 200 MG ORAL QHS, (Reported) Rivaroxaban (Xarelto*), 20 MG ORAL DAILY, (Reported) Sennosides (Senna), 2 TAB PO QHS, (Reported) Zinc Sulfate (Zinc Sulfate*), 220 MG ORAL DAILY, (Reported) Scheduled PRN Acetaminophen* (Acetaminophen 325MG Tablet*), 650 MG ORAL Q4H PRN for Mild Pain/ Temp > 100.5, (Reported) Bisacodyl (Dulcolax), 10 MG RC PRN PRN for IF MOM INEFFECTIVE, (Reported) Hydrocodone Bit/Acetaminophen 5-325* ([place] 5-325*), 1 TAB ORAL Q4H PRN for Severe Pain (Pain Scale 7-10), (Reported) Magnesium Hydroxide* (Milk Of Magnesia*), 30 ML ORAL DAILY PRN for Constipation, (Reported) Na Phos,M-B/Na Phos,Di-Ba* (Fleet Enema*), 133 ML RECTAL DAILY PRN for IF DULCOLAX INEFFECTIVE, (Reported) Miscellaneous Medications Diphenhydramine Hcl (Benadryl Allergy), 25 MG PO, (Reported) Hydrocortisone (Cortef), 10 MG PO, (Reported) Patient History Healthcare decision maker Resuscitation status Full Code Advanced Directive on File Past Medical/Surgical History Past Medical/Surgical History: (1) cardiomyopathy with EF of 35% (2) Encounter for PEG (percutaneous endoscopic gastrostomy) (3) Schizophrenia (4) Malignant neoplasm of right kidney (5) Chronic kidney disease (6) HCAP (healthcare-associated pneumonia) (7) DVT (deep venous thrombosis) (8) DM (diabetes mellitus) (9) Feeding by G-tube Review of Systems All Other Systems: negative except mentioned in HPI Physical Exam General Appearance: thin Lines, tubes and drains: peripheral HEENT: normocephalic, atraumatic Neck: non-tender, normal alignment Respiratory/Chest: chest wall non-tender, rhonchi - left, rhonchi - right Cardiovascular/Chest: normal peripheral pulses, normal rate Abdomen: normal bowel sounds, non tender Genitourinary/Rectal: normal genital exam, normal rectal exam Extremities: normal range of motion Last 24 Hour Vital Signs Date Time Temp Pulse Resp B/P (MAP) Pulse Ox O2 Delivery O2 Flow Rate FiO2 06/16/19 08:00 100.0 98 25 98/67 (77) 99 06/16/19 07:26 101 06/16/19 04:00 98.1 95 24 97/58 (71) 97 06/16/19 04:00 88 06/16/19 04:00 Nasal Cannula 4.0 06/16/19 00:00 95 06/16/19 00:00 97.9 100 24 101/58 (72) 97 06/16/19 00:00 Nasal Cannula 4.0 06/15/19 20:00 98.8 106 22 111/60 (77) 97 06/15/19 20:00 119 06/15/19 20:00 Nasal Cannula 4.0 06/15/19 17:15 107 06/15/19 16:56 Nasal Cannula 2.0 06/15/19 16:00 99.7 122 22 127/82 (97) 95 06/15/19 15:44 98.1 80 19 112/70 98 Nasal Cannula 2.0 06/15/19 15:02 97.8 78 18 108/72 99 Room Air 06/15/19 14:05 98.1 68 16 102/66 95 Nasal Cannula 06/15/19 14:00 97.8 76 18 100/68 100 Room Air 06/15/19 12:00 97.9 72 18 98/71 95 Room Air Intake and Output 06/15/19 06/16/19 18:59 06:59 Intake Total 55 ml 675 ml Output Total 850 ml Balance 55 ml -175 ml Intake IV Total 55 ml 675 ml Output Urine Total 850 ml # Voids 1 Laboratory Tests Test 06/16/19 08:35 White Blood Count 16.1 K/UL (4.8-10.8) H Red Blood Count 3.80 M/UL (4.70-6.10) L Hemoglobin 12.0 G/DL (14.2-18.0) L Hematocrit 34.8 % (42.0-52.0) L Mean Corpuscular Volume 91 FL (80-99) Mean Corpuscular Hemoglobin 31.6 PG (27.0-31.0) H Mean Corpuscular Hemoglobin Concent 34.5 G/DL (32.0-36.0) Red Cell Distribution Width 13.8 % (11.6-14.8) Platelet Count 238 K/UL (150-450) Mean Platelet Volume 5.1 FL (6.5-10.1) L Neutrophils (%) (Auto) 67.8 % (45.0-75.0) Lymphocytes (%) (Auto) 16.2 % (20.0-45.0) L Monocytes (%) (Auto) 13.1 % (1.0-10.0) H Eosinophils (%) (Auto) 2.3 % (0.0-3.0) Basophils (%) (Auto) 0.7 % (0.0-2.0) Sodium Level 137 MMOL/L (136-145) Potassium Level 4.1 MMOL/L (3.5-5.1) Chloride Level 104 MMOL/L (98-107) Carbon Dioxide Level 27 MMOL/L (21-32) Anion Gap 6 mmol/L (5-15) Blood Urea Nitrogen 19 mg/dL (7-18) H Creatinine 1.1 MG/DL (0.55-1.30) Estimat Glomerular Filtration Rate > 60 mL/min (>60) Glucose Level 82 MG/DL (74-106) Calcium Level 8.6 MG/DL (8.5-10.1) Phosphorus Level 2.9 MG/DL (2.5-4.9) Albumin 2.0 G/DL (3.4-5.0) L Random Vancomycin Level 20.6 ug/mL Height (Feet): 5 Height (Inches): 9.00 Weight (Pounds): 150 Medications Current Medications Medications (Trade) Dose Ordered Sig/Ricardo Route PRN Reason Start Time Stop Time Status Last Admin Dose Admin Acetaminophen (Tylenol) 650 mg Q4H PRN GT Mild Pain/Temp > 100.5 06/15/19 18:30 07/15/19 18:29 Albuterol/ Ipratropium (Albuterol/ Ipratropium) 3 ml Q4H PRN HHN Shortness of Breath 06/15/19 08:30 06/20/19 08:29 Cefepime HCl 1 gm/ Dextrose 55 ml @ 110 mls/hr Q24H IV 06/15/19 15:00 06/22/19 14:59 06/15/19 15:29 Dextrose/Sodium Chloride 1,000 ml @ 75 mls/hr [id number] IV 06/15/19 20:00 07/15/19 19:59 06/16/19 09:16 Donepezil HCl (Aricept) 5 mg DAILY ORAL 06/15/19 09:00 07/15/19 08:59 06/16/19 09:15 Gabapentin (Neurontin) 300 mg THREE TIMES A DAY ORAL 06/15/19 09:00 07/15/19 08:59 06/16/19 09:15 Nitroglycerin (Ntg) 0.4 mg Q5M PRN SL Prn Chest Pain 06/15/19 08:30 07/15/19 08:29 Ondansetron HCl (Zofran) 4 mg Q6H PRN IVP Nausea & Vomiting 06/15/19 08:30 07/15/19 08:29 Polyethylene Glycol (Miralax) 17 gm DAILYPRN PRN ORAL Constipation 06/15/19 08:30 07/15/19 08:29 Promethazine HCl/ Codeine (Phenergan with Codeine) 5 ml Q4H PRN ORAL For Cough 06/15/19 08:30 07/15/19 08:29 Quetiapine Fumarate (SEROqueL) 100 mg TWICE A DAY ORAL 06/15/19 09:00 07/30/19 08:59 06/16/19 09:15 Rivaroxaban (Xarelto) 20 mg DAILY ORAL 06/15/19 09:00 09/13/19 08:59 06/16/19 09:15 Temazepam (Restoril) 15 mg HSPRN PRN ORAL Insomnia 06/15/19 08:30 06/22/19 08:29 Vancomycin HCl (Vanco rx to dose) 1 ea DAILY PRN MISC Per rx protocol 06/15/19 08:30 07/15/19 08:29 Vancomycin HCl 750 mg/Dextrose 275 ml @ 183.333 mls/hr Q24H IVPB 06/16/19 18:00 06/21/19 17:59 Assessment/Plan Problem List: (1) Suspected COVID-19 virus infection ICD Codes: R68.89 - Other general symptoms and signs SNOMED: 554086001 (2) HCAP (healthcare-associated pneumonia) ICD Codes: J18.9 - Pneumonia, unspecified organism SNOMED: 552453175, 643618355 (3) Systolic heart failure ICD Codes: I50.20 - Unspecified systolic (congestive) heart failure SNOMED: 049275520 (4) DM (diabetes mellitus) ICD Codes: E11.9 - Type 2 diabetes mellitus without complications SNOMED: 86746134 (5) cardiomyopathy with EF of 35% (6) Schizophrenia ICD Codes: F20.9 - Schizophrenia, unspecified SNOMED: 83083205 Assessment/Plan: respiratory isolation respiratory treatment titrate fio2 to sat of 92% tao culture iv abx swallow study psych to see dvt prophylaxis. Ron Anthony MD Jun 16, 2019 11:41
[2019-06-16 12:00] VITALS: BP 118/63
--- NOTE | 2019-06-16 13:57 | Infectious Diseases Prog Note ---
Assessment/Plan Assessment/Plan Fever 101, at [place] Leukocytosis Sepsis Elevated lactate, SP PNA r/o probable COVID CXR: Right upper lobe and left perihilar mild interstitial opacities. This is nonspecific, could indicate infectious interstitial disease is, residual chronic interstitial disease, or mild pulmonary edema, among many other possibilities flu swab negative Probable Scabies r/o bacteremia unlikely UTI UA neg Multiple pressure injuries h/o MRSA pneumonia GERD DM Schizophrenia HTN HI resident COPD Tobacco abuse Kidney cancer OA CKD Anemia PVD CHF Plan: Cefepime and vanc #2 06/14 SP Permethrin #1, repeat in one week 06/14 SP Levaquin #1 f/u COVID f/u bcx f/u sputum culture monitor temp and CBC monitor resp status isolation precaution DW RN Subjective Allergies: Coded Allergies: No Known Allergies (Unverified , 01/24/19) Subjective Tmax 100 now on 4L NC WBC better Denies problems. hallucinating. Objective Vital Signs Last 24 Hour Vital Signs Date Time Temp Pulse Resp B/P (MAP) Pulse Ox O2 Delivery O2 Flow Rate FiO2 06/16/19 12:00 Nasal Cannula 4.0 06/16/19 11:29 84 06/16/19 08:00 Nasal Cannula 4.0 06/16/19 08:00 100.0 98 25 98/67 (77) 99 06/16/19 07:26 101 06/16/19 04:00 98.1 95 24 97/58 (71) 97 06/16/19 04:00 88 06/16/19 04:00 Nasal Cannula 4.0 06/16/19 00:00 95 06/16/19 00:00 97.9 100 24 101/58 (72) 97 06/16/19 00:00 Nasal Cannula 4.0 06/15/19 20:00 98.8 106 22 111/60 (77) 97 06/15/19 20:00 119 06/15/19 20:00 Nasal Cannula 4.0 06/15/19 17:15 107 06/15/19 16:56 Nasal Cannula 2.0 06/15/19 16:00 99.7 122 22 127/82 (97) 95 06/15/19 15:44 98.1 80 19 112/70 98 Nasal Cannula 2.0 06/15/19 15:02 97.8 78 18 108/72 99 Room Air 06/15/19 14:05 98.1 68 16 102/66 95 Nasal Cannula 06/15/19 14:00 97.8 76 18 100/68 100 Room Air Height (Feet): 5 Height (Inches): 9.00 Weight (Pounds): 150 Objective Gen: NAD. normocephalic. atraumatic. well nourished. CV: S1+S2. regular. no rubs. Resp: RRR. unlabored. equal chest rise. Abd: Soft. no TTP. nondistended. Psych: labile. visual hallucination Microbiology Date/Time Source Procedure Growth Status 06/15/19 02:45 Blood Blood Culture - Preliminary NO GROWTH AFTER 24 HOURS Resulted 06/15/19 02:30 Blood Blood Culture - Preliminary NO GROWTH AFTER 24 HOURS Resulted 06/15/19 02:45 Nasal Nares - Final Complete 06/15/19 02:45 Nasal Nares - Final Complete Laboratory Tests Test 06/16/19 08:35 White Blood Count 16.1 K/UL (4.8-10.8) H Red Blood Count 3.80 M/UL (4.70-6.10) L Hemoglobin 12.0 G/DL (14.2-18.0) L Hematocrit 34.8 % (42.0-52.0) L Mean Corpuscular Volume 91 FL (80-99) Mean Corpuscular Hemoglobin 31.6 PG (27.0-31.0) H Mean Corpuscular Hemoglobin Concent 34.5 G/DL (32.0-36.0) Red Cell Distribution Width 13.8 % (11.6-14.8) Platelet Count 238 K/UL (150-450) Mean Platelet Volume 5.1 FL (6.5-10.1) L Neutrophils (%) (Auto) 67.8 % (45.0-75.0) Lymphocytes (%) (Auto) 16.2 % (20.0-45.0) L Monocytes (%) (Auto) 13.1 % (1.0-10.0) H Eosinophils (%) (Auto) 2.3 % (0.0-3.0) Basophils (%) (Auto) 0.7 % (0.0-2.0) Sodium Level 137 MMOL/L (136-145) Potassium Level 4.1 MMOL/L (3.5-5.1) Chloride Level 104 MMOL/L (98-107) Carbon Dioxide Level 27 MMOL/L (21-32) Anion Gap 6 mmol/L (5-15) Blood Urea Nitrogen 19 mg/dL (7-18) H Creatinine 1.1 MG/DL (0.55-1.30) Estimat Glomerular Filtration Rate > 60 mL/min (>60) Glucose Level 82 MG/DL (74-106) Calcium Level 8.6 MG/DL (8.5-10.1) Phosphorus Level 2.9 MG/DL (2.5-4.9) Albumin 2.0 G/DL (3.4-5.0) L Random Vancomycin Level 20.6 ug/mL Current Medications Medications (Trade) Dose Ordered Sig/Ricardo Route PRN Reason Start Time Stop Time Status Last Admin Dose Admin Acetaminophen (Tylenol) 650 mg Q4H PRN GT Mild Pain/Temp > 100.5 06/15/19 18:30 07/15/19 18:29 Albuterol/ Ipratropium (Albuterol/ Ipratropium) 3 ml Q4H PRN HHN Shortness of Breath 06/15/19 08:30 06/20/19 08:29 Cefepime HCl 1 gm/ Dextrose 55 ml @ 110 mls/hr Q24H IV 06/15/19 15:00 06/22/19 14:59 06/15/19 15:29 Dextrose/Sodium Chloride 1,000 ml @ 75 mls/hr [id number] IV 06/15/19 20:00 07/15/19 19:59 06/16/19 09:16 Donepezil HCl (Aricept) 5 mg DAILY ORAL 06/15/19 09:00 07/15/19 08:59 06/16/19 09:15 Gabapentin (Neurontin) 300 mg THREE TIMES A DAY ORAL 06/15/19 09:00 07/15/19 08:59 06/16/19 09:15 Nitroglycerin (Ntg) 0.4 mg Q5M PRN SL Prn Chest Pain 06/15/19 08:30 07/15/19 08:29 Ondansetron HCl (Zofran) 4 mg Q6H PRN IVP Nausea & Vomiting 06/15/19 08:30 07/15/19 08:29 Polyethylene Glycol (Miralax) 17 gm DAILYPRN PRN ORAL Constipation 06/15/19 08:30 07/15/19 08:29 Promethazine HCl/ Codeine (Phenergan with Codeine) 5 ml Q4H PRN ORAL For Cough 06/15/19 08:30 07/15/19 08:29 Quetiapine Fumarate (SEROqueL) 100 mg TWICE A DAY ORAL 06/15/19 09:00 07/30/19 08:59 06/16/19 09:15 Rivaroxaban (Xarelto) 20 mg DAILY ORAL 06/15/19 09:00 09/13/19 08:59 06/16/19 09:15 Temazepam (Restoril) 15 mg HSPRN PRN ORAL Insomnia 06/15/19 08:30 06/22/19 08:29 Vancomycin HCl (Vanco rx to dose) 1 ea DAILY PRN MISC Per rx protocol 06/15/19 08:30 07/15/19 08:29 Vancomycin HCl 750 mg/Dextrose 275 ml @ 183.333 mls/hr Q24H IVPB 06/16/19 18:00 06/21/19 17:59 Pili Lenz MD Jun 16, 2019 13:57
[2019-06-16 16:00] VITALS: BP 128/71
[2019-06-16] MEDS: Cefepime HCl 1 GM in D5W 55 ML IV SCH (16:44)
[2019-06-16] MEDS ORDERED: Vancomycin 750mg/D5W 275ml IVPB SCH ×2 (18:00)
[2019-06-16 20:00] VITALS: BP 114/57
[2019-06-17] VITALS: BP 114/53
[2019-06-17 04:00] VITALS: BP 112/49
[2019-06-17 08:02] VITALS: BP 92/62
[2019-06-17 09:49] LABS: HEMATOCRIT 34.2 % (42.0-52.0); HEMOGLOBIN 11.7 G/DL (14.2-18.0); MEAN CORPUSCULAR VOLUME 90 FL (80-99); PLATELET COUNT 160 K/UL (150-450); RED BLOOD COUNT 3.79 M/UL (4.70-6.10); RED CELL DISTRIBUTION WIDTH 13.3 % (11.6-14.8); WHITE BLOOD COUNT 6.4 K/UL (4.8-10.8)
[2019-06-17 09:52] LABS: PHOSPHORUS 2.3 MG/DL (2.5-4.9)
[2019-06-17 09:56] LABS: ALANINE AMINOTRANSFERASE 20 U/L (12-78); ALBUMIN 1.8 G/DL (3.4-5.0); ALBUMIN/GLOBULIN RATIO 0.4 (1.0-2.7); ALKALINE PHOSPHATASE 87 U/L (46-116); ANION GAP 6 mmol/L (5-15); ASPARTATE AMINO TRANSFERASE 49 U/L (15-37); BILIRUBIN,TOTAL 0.3 MG/DL (0.2-1.0); BLOOD UREA NITROGEN 15 mg/dL (7-18); CALCIUM 8.4 MG/DL (8.5-10.1); CARBON DIOXIDE 28 MMOL/L (21-32); CHLORIDE 102 MMOL/L (98-107); CREATININE 0.8 MG/DL (0.55-1.30); POTASSIUM 3.2 MMOL/L (3.5-5.1); SODIUM 136 MMOL/L (136-145)
[2019-06-17] MEDS: Donepezil 5mg Tab ORAL SCH (10:01)
[2019-06-17] MEDS: Xarelto 10mg tab ORAL SCH (10:06)
[2019-06-17] MEDS: D5 1/2NS 1,000 ML IV SCH ×2 (10:07→14:00)
--- NOTE | 2019-06-17 10:46 | Pulmonology Progress Note ---
Assessment/Plan Problems: (1) HCAP (healthcare-associated pneumonia) (2) Suspected COVID-19 virus infection (3) Systolic heart failure (4) DM (diabetes mellitus) (5) cardiomyopathy with EF of 35% (6) Schizophrenia Assessment/Plan afebrile now wb decreasing respiratory isolation respiratory treatment titrate fio2 to sat of 92% tao culture iv abx swallow study psych to see dvt prophylaxis. Subjective ROS Limited/Unobtainable: No Constitutional: Reports: no symptoms HEENT: Repors: no symptoms Allergies: Coded Allergies: No Known Allergies (Unverified , 01/24/19) Objective Last 24 Hour Vital Signs Date Time Temp Pulse Resp B/P (MAP) Pulse Ox O2 Delivery O2 Flow Rate FiO2 06/17/19 08:02 97.0 66 18 92/62 (72) 100 06/17/19 07:54 66 06/17/19 04:00 Nasal Cannula 4.0 06/17/19 04:00 97.0 62 18 112/49 (70) 98 06/17/19 03:34 60 06/17/19 00:00 74 06/17/19 00:00 Nasal Cannula 4.0 06/17/19 00:00 97.0 72 18 114/53 (73) 95 06/16/19 20:00 95 06/16/19 20:00 Nasal Cannula 4.0 06/16/19 20:00 97.2 90 18 114/57 (76) 98 06/16/19 16:00 Nasal Cannula 4.0 06/16/19 16:00 98.7 115 24 128/71 (90) 98 06/16/19 15:00 96 06/16/19 12:00 Nasal Cannula 4.0 06/16/19 12:00 98.5 91 25 118/63 (81) 99 06/16/19 11:29 84 Intake and Output 06/16/19 06/17/19 19:00 07:00 Intake Total 655 ml 783.333 ml Output Total 900 ml 700 ml Balance -245 ml 83.333 ml Intake IV Total 655 ml 783.333 ml Output Urine Total 900 ml 700 ml General Appearance: cachetic HEENT: normocephalic, atraumatic Respiratory/Chest: chest wall non-tender, lungs clear, crackles/rales Cardiovascular: normal peripheral pulses, normal rate Abdomen: normal bowel sounds, soft, non tender Genitourinary: normal external genitalia Extremities: no cyanosis Skin: no rash Neurologic/Psychiatric: 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 intern II-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 grossly normal Microbiology Date/Time Source Procedure Growth Status 06/15/19 02:45 Blood Blood Culture - Preliminary NO GROWTH AFTER 48 HOURS Resulted 06/15/19 02:30 Blood Blood Culture - Preliminary NO GROWTH AFTER 48 HOURS Resulted 06/15/19 02:45 Nasopharynx Coronavirus COVID-19 PCR ([facility]) - Final Complete 06/15/19 02:45 Nasal Nares - Final Complete 06/15/19 02:45 Nasal Nares - Final Complete Laboratory Tests 06/17/19 08:50: White Blood Count 6.4#, Red Blood Count 3.79L, Hemoglobin 11.7L, Hematocrit 34.2L, Mean Corpuscular Volume 90, Mean Corpuscular Hemoglobin 30.8, Mean Corpuscular Hemoglobin Concent 34.1, Red Cell Distribution Width 13.3, Platelet Count 160, Mean Platelet Volume 5.2L, Neutrophils (%) (Auto) , Lymphocytes (%) ( Auto) , Monocytes (%) (Auto) , Eosinophils (%) (Auto) , Basophils (%) (Auto) , Neutrophils % (Manual) [Pending], Lymphocytes % (Manual) [Pending], Platelet Estimate [Pending], Platelet Morphology [Pending], Erythrocyte Sedimentation Rate [Pending], Sodium Level 136, Potassium Level 3.2L, Chloride Level 102, Carbon Dioxide Level 28, Anion Gap 6, Blood Urea Nitrogen 15, Creatinine 0.8, Estimat Glomerular Filtration Rate > 60, Glucose Level 111H, Calcium Level 8.4L , Phosphorus Level 2.3L, Magnesium Level 1.7L, Total Bilirubin 0.3, Aspartate Amino Transf (AST/SGOT) 49H, Alanine Aminotransferase (ALT/SGPT) 20, Alkaline Phosphatase 87, C-Reactive Protein, Quantitative 9.6H, Total Protein 6.0L, Albumin 1.8L, Globulin 4.2, Albumin/Globulin Ratio 0.4L Current Medications Medications (Trade) Dose Ordered Sig/Ricardo Route PRN Reason Start Time Stop Time Status Last Admin Dose Admin Acetaminophen (Tylenol) 650 mg Q4H PRN GT Mild Pain/Temp > 100.5 06/15/19 18:30 07/15/19 18:29 Albuterol/ Ipratropium (Albuterol/ Ipratropium) 3 ml Q4H PRN HHN Shortness of Breath 06/15/19 08:30 06/20/19 08:29 Cefepime HCl 1 gm/ Dextrose 55 ml @ 110 mls/hr Q24H IV 06/15/19 15:00 06/22/19 14:59 06/16/19 16:44 Dextrose/Sodium Chloride 1,000 ml @ 75 mls/hr [id number] IV 06/15/19 20:00 07/15/19 19:59 06/17/19 10:07 Donepezil HCl (Aricept) 5 mg DAILY ORAL 06/15/19 09:00 07/15/19 08:59 06/17/19 10:01 Gabapentin (Neurontin) 300 mg THREE TIMES A DAY ORAL 06/15/19 09:00 07/15/19 08:59 06/17/19 10:03 Magnesium Sulfate 100 ml @ 100 mls/hr Q1H IV 06/17/19 12:45 06/17/19 14:44 UNV Nitroglycerin (Ntg) 0.4 mg Q5M PRN SL Prn Chest Pain 06/15/19 08:30 07/15/19 08:29 Ondansetron HCl (Zofran) 4 mg Q6H PRN IVP Nausea & Vomiting 06/15/19 08:30 07/15/19 08:29 Polyethylene Glycol (Miralax) 17 gm DAILYPRN PRN ORAL Constipation 06/15/19 08:30 07/15/19 08:29 Potassium Chloride 100 ml @ 100 mls/hr Q1H IVPB 06/17/19 10:45 06/17/19 14:44 UNV Promethazine HCl/ Codeine (Phenergan with Codeine) 5 ml Q4H PRN ORAL For Cough 06/15/19 08:30 07/15/19 08:29 Quetiapine Fumarate (SEROqueL) 100 mg TWICE A DAY ORAL 06/15/19 09:00 07/30/19 08:59 06/16/19 18:07 Rivaroxaban (Xarelto) 20 mg DAILY ORAL 06/15/19 09:00 09/13/19 08:59 06/17/19 10:06 Sodium Phosphate 30 mm/Sodium Chloride 285 ml @ 47.5 mls/hr ONCE ONCE IV 06/17/19 12:45 06/17/19 18:44 UNV Temazepam (Restoril) 15 mg HSPRN PRN ORAL Insomnia 06/15/19 08:30 06/22/19 08:29 Vancomycin HCl (Vanco rx to dose) 1 ea DAILY PRN MISC Per rx protocol 06/15/19 08:30 07/15/19 08:29 Vancomycin HCl 750 mg/Dextrose 275 ml @ 183.333 mls/hr Q24H IVPB 06/16/19 18:00 06/21/19 17:59 06/16/19 18:05 Ron Anthony MD Jun 17, 2019 10:46
--- NOTE | 2019-06-17 11:37 | General Progress Note ---
Assessment/Plan Problem List: (1) DM (diabetes mellitus) ICD Codes: E11.9 - Type 2 diabetes mellitus without complications SNOMED: 21832232 (2) Feeding by G-tube ICD Codes: Z93.1 - Gastrostomy status SNOMED: 263544744, 859815911, 163097713 (3) LILIAM (acute kidney injury) ICD Codes: N17.9 - Acute kidney failure, unspecified SNOMED: 26986465, 9880681 (4) Sepsis ICD Codes: A41.9 - Sepsis, unspecified organism SNOMED: 06453106, 353521839 Qualifiers: Qualified Codes: A41.9 - Sepsis, unspecified organism; R65.20 - Severe sepsis without septic shock; N17.9 - Acute kidney failure, unspecified (5) Suspected COVID-19 virus infection ICD Codes: R68.89 - Other general symptoms and signs SNOMED: 870821781 (6) PVD (peripheral vascular disease) ICD Codes: I73.9 - Peripheral vascular disease, unspecified SNOMED: 376774860 (7) Encounter for PEG (percutaneous endoscopic gastrostomy) ICD Codes: Z43.1 - Encounter for attention to gastrostomy SNOMED: 070000725, 353864196 Status: stable, progressing Assessment/Plan: o2 pulm tx abx pt diet cbc bmp am Subjective Constitutional: Reports: weakness Allergies: Coded Allergies: No Known Allergies (Unverified , 01/24/19) All Systems: reviewed and negative except above Subjective o2nc sleep Objective Last 24 Hour Vital Signs Date Time Temp Pulse Resp B/P (MAP) Pulse Ox O2 Delivery O2 Flow Rate FiO2 06/17/19 08:02 97.0 66 18 92/62 (72) 100 06/17/19 07:54 66 06/17/19 04:00 Nasal Cannula 4.0 06/17/19 04:00 97.0 62 18 112/49 (70) 98 06/17/19 03:34 60 06/17/19 00:00 74 06/17/19 00:00 Nasal Cannula 4.0 06/17/19 00:00 97.0 72 18 114/53 (73) 95 06/16/19 20:00 95 06/16/19 20:00 Nasal Cannula 4.0 06/16/19 20:00 97.2 90 18 114/57 (76) 98 06/16/19 16:00 Nasal Cannula 4.0 06/16/19 16:00 98.7 115 24 128/71 (90) 98 06/16/19 15:00 96 06/16/19 12:00 Nasal Cannula 4.0 06/16/19 12:00 98.5 91 25 118/63 (81) 99 Intake and Output 06/16/19 06/17/19 19:00 07:00 Intake Total 655 ml 783.333 ml Output Total 900 ml 700 ml Balance -245 ml 83.333 ml Intake IV Total 655 ml 783.333 ml Output Urine Total 900 ml 700 ml Laboratory Tests 06/17/19 08:50: White Blood Count 6.4#, Red Blood Count 3.79L, Hemoglobin 11.7L, Hematocrit 34.2L, Mean Corpuscular Volume 90, Mean Corpuscular Hemoglobin 30.8, Mean Corpuscular Hemoglobin Concent 34.1, Red Cell Distribution Width 13.3, Platelet Count 160, Mean Platelet Volume 5.2L, Neutrophils (%) (Auto) , Lymphocytes (%) ( Auto) , Monocytes (%) (Auto) , Eosinophils (%) (Auto) , Basophils (%) (Auto) , Differential Total Cells Counted 100, Neutrophils % (Manual) 51, Lymphocytes % ( Manual) 24, Monocytes % (Manual) 19H, Eosinophils % (Manual) 5H, Basophils % ( Manual) 0, Band Neutrophils 1, Platelet Estimate Adequate, Platelet Morphology Normal, Hypochromasia 1+, Anisocytosis 1+, Erythrocyte Sedimentation Rate 84H, Sodium Level 136, Potassium Level 3.2L, Chloride Level 102, Carbon Dioxide Level 28, Anion Gap 6, Blood Urea Nitrogen 15, Creatinine 0.8, Estimat Glomerular Filtration Rate > 60, Glucose Level 111H, Calcium Level 8.4L, Phosphorus Level 2.3L, Magnesium Level 1.7L, Total Bilirubin 0.3, Aspartate Amino Transf (AST/SGOT) 49H, Alanine Aminotransferase (ALT/SGPT) 20, Alkaline Phosphatase 87, C-Reactive Protein, Quantitative 9.6H, Total Protein 6.0L, Albumin 1.8L, Globulin 4.2, Albumin/Globulin Ratio 0.4L Height (Feet): 5 Height (Inches): 9.00 Weight (Pounds): 150 General Appearance: lethargic EENT: normal ENT inspection Neck: normal alignment Cardiovascular: normal peripheral pulses, normal rate, regular rhythm Respiratory/Chest: chest wall non-tender, lungs clear, normal breath sounds Abdomen: normal bowel sounds, non tender, soft Extremities: normal inspection Edema: no edema noted Arm (L), no edema noted Arm (R), no edema noted Leg (L), no edema noted Leg (R), no edema noted Pedal (L), no edema noted Pedal (R), no edema noted Generalized Neurologic: motor weakness Skin: normal pigmentation, warm/dry Corey Short DO Jun 17, 2019 11:37
[2019-06-17 12:00] VITALS: BP 111/62
[2019-06-17] MEDS ORDERED: Nitroglycerin Subl 0.4mg tab SL PRN (14:00)
--- NOTE | 2019-06-17 14:04 | Surgery Progress Note ---
Surgery Progress Note Subjective Additional Comments labs noted micro pending eaxm stable comfortable Objective Last 24 Hour Vital Signs Date Time Temp Pulse Resp B/P (MAP) Pulse Ox O2 Delivery O2 Flow Rate FiO2 06/17/19 12:00 Nasal Cannula 4.0 06/17/19 12:00 97.0 72 18 111/62 (78) 100 06/17/19 11:40 63 06/17/19 08:02 97.0 66 18 92/62 (72) 100 06/17/19 08:00 Nasal Cannula 4.0 06/17/19 07:54 66 06/17/19 04:00 Nasal Cannula 4.0 06/17/19 04:00 97.0 62 18 112/49 (70) 98 06/17/19 03:34 60 06/17/19 00:00 74 06/17/19 00:00 Nasal Cannula 4.0 06/17/19 00:00 97.0 72 18 114/53 (73) 95 06/16/19 20:00 95 06/16/19 20:00 Nasal Cannula 4.0 06/16/19 20:00 97.2 90 18 114/57 (76) 98 06/16/19 16:00 Nasal Cannula 4.0 06/16/19 16:00 98.7 115 24 128/71 (90) 98 06/16/19 15:00 96 I&O Intake and Output 06/16/19 06/17/19 19:00 07:00 Intake Total 655 ml 783.333 ml Output Total 900 ml 700 ml Balance -245 ml 83.333 ml Intake IV Total 655 ml 783.333 ml Output Urine Total 900 ml 700 ml Dressing: dry Wound: clean Cardiovascular: RSR Respiratory: clear Abdomen: flat, non-tender, present bowel sounds Extremities: no cyanosis Laboratory Tests Test 06/17/19 08:50 White Blood Count 6.4 K/UL (4.8-10.8) # Red Blood Count 3.79 M/UL (4.70-6.10) L Hemoglobin 11.7 G/DL (14.2-18.0) L Hematocrit 34.2 % (42.0-52.0) L Mean Corpuscular Volume 90 FL (80-99) Mean Corpuscular Hemoglobin 30.8 PG (27.0-31.0) Mean Corpuscular Hemoglobin Concent 34.1 G/DL (32.0-36.0) Red Cell Distribution Width 13.3 % (11.6-14.8) Platelet Count 160 K/UL (150-450) Mean Platelet Volume 5.2 FL (6.5-10.1) L Neutrophils (%) (Auto) % (45.0-75.0) Lymphocytes (%) (Auto) % (20.0-45.0) Monocytes (%) (Auto) % (1.0-10.0) Eosinophils (%) (Auto) % (0.0-3.0) Basophils (%) (Auto) % (0.0-2.0) Differential Total Cells Counted 100 Neutrophils % (Manual) 51 % (45-75) Lymphocytes % (Manual) 24 % (20-45) Monocytes % (Manual) 19 % (1-10) H Eosinophils % (Manual) 5 % (0-3) H Basophils % (Manual) 0 % (0-2) Band Neutrophils 1 % (0-8) Platelet Estimate Adequate Platelet Morphology Normal Hypochromasia 1+ Anisocytosis 1+ Erythrocyte Sedimentation Rate 84 MM/HR (0-20) H Sodium Level 136 MMOL/L (136-145) Potassium Level 3.2 MMOL/L (3.5-5.1) L Chloride Level 102 MMOL/L (98-107) Carbon Dioxide Level 28 MMOL/L (21-32) Anion Gap 6 mmol/L (5-15) Blood Urea Nitrogen 15 mg/dL (7-18) Creatinine 0.8 MG/DL (0.55-1.30) Estimat Glomerular Filtration Rate > 60 mL/min (>60) Glucose Level 111 MG/DL (74-106) H Calcium Level 8.4 MG/DL (8.5-10.1) L Phosphorus Level 2.3 MG/DL (2.5-4.9) L Magnesium Level 1.7 MG/DL (1.8-2.4) L Total Bilirubin 0.3 MG/DL (0.2-1.0) Aspartate Amino Transf (AST/SGOT) 49 U/L (15-37) H Alanine Aminotransferase (ALT/SGPT) 20 U/L (12-78) Alkaline Phosphatase 87 U/L (46-116) C-Reactive Protein, Quantitative 9.6 mg/dL (0.00-0.90) H Total Protein 6.0 G/DL (6.4-8.2) L Albumin 1.8 G/DL (3.4-5.0) L Globulin 4.2 g/dL Albumin/Globulin Ratio 0.4 (1.0-2.7) L Plan Problems: (1) Sepsis Assessment & Plan: This is a 68-year-old male that presented with fevers, leukocytosis, lactic acidosis. Patient septic and requiring work-up care and management. COPD ID evaluation. IV antibiotics per infectious disease. IV fluid hydration. Lactic improving with hydration. Patient awake alert responsive otherwise comfortable but does have wounds that are very tender. Wounds unlikely etiology of infection. Pending microbiology. Labs reviewed. (2) DM (diabetes mellitus) (3) Feeding by G-tube Assessment & Plan: DAILY ESTIMATED NEEDS: Needs based on Pulmonary, sepsis, wounds 69kg 25-30 kcals/kg 7072-7088 total kcals 1.25-2 g protein/kg 86-138 g total protein 25-30 mL/kg 5474-6744 total fluid mLs NUTRITION DIAGNOSIS: *Swallowing difficulty R/T dysphagia, confusion as evidenced by s/p PEG placement, on oral diet at SNF, now w/ recs for GT feeds pending VSS. CURRENT DIET:NPO PO DIET RECOMMENDATIONS: IF ORAL GRAT INDICATED: rec liberalized REGULAR/ texture per COMMERCIAL LEASE ADMINISTRATOR ENTERAL NUTRITION RECOMMENDATIONS: Glucerna 1.5 @ 50ml/hr x24 hrs to provide 1200ml, 1800 kcal, 99g pro, 911ml free H2o As medically able, rec start GT feeds to meet est nutritional needs - Initiate Glucerna 1.5 @ 20ml/hr x 6 hrs - Advance 10ml q 4-6 hrs as tolerated to goal rate. - HOB over 30 degrees/ water flush per MD ADDITIONAL RECOMMENDATIONS: 1) Per SNF: HT 71 inches, rec calibrated bed scale wts for eval 2) Updated HgA1C for eval 3) Wound care: w/ diet, rec DANIELA BID (via GT or oral) + Vit C 250mg BID F/up w/ WC eval 4) COMMERCIAL LEASE ADMINISTRATOR re-eval for possible oral grat w/ GT feeds . (4) LILIAM (acute kidney injury) (5) Suspected COVID-19 virus infection (6) Thrombocytopenia (7) DVT (deep venous thrombosis) (8) HCAP (healthcare-associated pneumonia) (9) Acute DVT (deep venous thrombosis) (10) Wound, open Assessment & Plan: Pt presented on admission with two wounds of unknown etiology, Pressure injury sacrum and both heels. Generalized rash which is pink and pimple-like in appearance, scaled rash noted to both distal lower extremities and both feet. 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 (L)1cm x (W)1.8cm x (D)1.2cm. Yellow slough noted along hartmann of wound. Edges and periwound erythematous. NO elevation in skin temp or induration periwound. Small amt haemopurulent exudate noted. Full thickness stage 4 wound noted to upper back(L)0.7cm x (W)1.9cm, tunneled depth 0.9cm. Mixed slough and erythema noted along hartmann of wound.Small amt seropurulent exudate. No odor noted. Marginal erythema without induration or elevation in skin temp periwound. Non-blanching erythema without induration sacrum. Historical scars noted to R and L ischial tuberosities. Unstageable pressure injury noted to L heel(L)1.5cm x (W)2.5cm. 100% dry eschar noted at base of heel. Edges adherent,erythematous and dry. Periwound heel is boggy with non-blanching erythema. R heel is boggy with non-blanchable erythema. Non-blanchable erythema without induration or fluctuance medial/lateral L foot.( L)1.5cm x (W)1.5cm. Non-blanchable erythema without induration or fluctuance noted to distal/ lateral L foot. Non-blanchable erythema without fluctuance or induration R lateral Malleolus(L) 2cm x (W)1.5cm. Tx.Plan: Cleanse wound upper back with Saline. Loosely pack with Therahoney impregnated kerlix . Apply Cavilon Skin Barrier periwound. Cover with Optifoam drsg Daily and prn. Cleanse wound L Brachial with Saline. Loosely pack with Therahoney impregnated Kerlix. Apply Cavilon Skin Barrier periwound. Cover with Optifoam drsg Daily and prn. Apply Moisture Barrier Paste to sacrum. Cover with Optifoam drsg. Change every 3 days and prn. Apply Betadine to L heel. Cover with Optifoam drsg. Change every 3 days and prn Apply Cavilon Skin Barrier to R heel, R malleolus. Cover each site with Optifoam drsg. Change every 7 days and prn. Apply Cavilon Skin Barrier to medial/lateral, and Distal/Lateral L foot. Cover with Optifoam drsg. Change every 7 days and prn. Reposition at least every 2hours or as tolerated. Off-load heels with pillow. APM/JELLY Mattress overlay. (11) Chronic kidney disease (12) Malignant neoplasm of right kidney (13) PVD (peripheral vascular disease) (14) Schizophrenia (15) Acute respiratory failure (16) Septic shock (17) Systolic heart failure (18) Renal failure (ARF), acute on chronic (19) Bradyarrhythmia (20) Dysphagia (21) Encounter for PEG (percutaneous endoscopic gastrostomy) (22) cardiomyopathy with EF of 35% Mauricio Anne Jun 17, 2019 14:04
[2019-06-17] MEDS ORDERED: Miralax 17gm pkt ORAL PRN (14:30)
[2019-06-17] MEDS ORDERED: Acetaminophen 650mg/20.3ml GT PRN (14:30)
[2019-06-17] MEDS ORDERED: Promethazine/Codeine 5ml UD ORAL PRN (14:45)
[2019-06-17] MEDS ORDERED: Albuterol/Ipratropium 3ml neb HHN PRN (14:45)
[2019-06-17] MEDS ORDERED: Sodium Phosphate 30 MM in NS 275 ML IV ONE ×4 (15:00)
[2019-06-17] MEDS: Cefepime HCl 1 GM in D5W 55 ML IV SCH (15:06)
--- NOTE | 2019-06-17 15:37 | Infectious Diseases Prog Note ---
Assessment/Plan Assessment/Plan Fever 101, at [place] Leukocytosis Sepsis Elevated lactate, SP PNA CXR: Right upper lobe and left perihilar mild interstitial opacities. This is nonspecific, could indicate infectious interstitial disease is, residual chronic interstitial disease, or mild pulmonary edema, among many other possibilities flu swab negative STAN-CoV PCR negative Probable Scabies, sp rx r/o bacteremia unlikely UTI UA neg Multiple pressure injuries h/o MRSA pneumonia GERD DM Schizophrenia HTN [place] resident COPD Tobacco abuse Kidney cancer OA CKD Anemia PVD CHF Plan: Cefepime and vanc #3/7 06/14 SP Permethrin #1, repeat in one week 06/14 SP Levaquin #1 f/u bcx f/u sputum culture monitor temp and CBC monitor resp status DW RN Subjective Allergies: Coded Allergies: No Known Allergies (Unverified , 01/24/19) Subjective Afebrile. stable 4L no leukocytosis comfortable Objective Vital Signs Last 24 Hour Vital Signs Date Time Temp Pulse Resp B/P (MAP) Pulse Ox O2 Delivery O2 Flow Rate FiO2 06/17/19 12:00 Nasal Cannula 4.0 06/17/19 12:00 97.0 72 18 111/62 (78) 100 06/17/19 11:40 63 06/17/19 08:02 97.0 66 18 92/62 (72) 100 06/17/19 08:00 Nasal Cannula 4.0 06/17/19 07:54 66 06/17/19 04:00 Nasal Cannula 4.0 06/17/19 04:00 97.0 62 18 112/49 (70) 98 06/17/19 03:34 60 06/17/19 00:00 74 06/17/19 00:00 Nasal Cannula 4.0 06/17/19 00:00 97.0 72 18 114/53 (73) 95 06/16/19 20:00 95 06/16/19 20:00 Nasal Cannula 4.0 06/16/19 20:00 97.2 90 18 114/57 (76) 98 06/16/19 16:00 Nasal Cannula 4.0 06/16/19 16:00 98.7 115 24 128/71 (90) 98 Height (Feet): 5 Height (Inches): 9.00 Weight (Pounds): 150 Objective Gen: NAD. normocephalic. atraumatic. well nourished. CV: S1+S2. regular. no rubs. Resp: RRR. unlabored. equal chest rise. Abd: Soft. no TTP. nondistended. Psych: labile. visual hallucination Skin: raised papules Microbiology Date/Time Source Procedure Growth Status 06/15/19 02:45 Blood Blood Culture - Preliminary NO GROWTH AFTER 48 HOURS Resulted 06/15/19 02:30 Blood Blood Culture - Preliminary NO GROWTH AFTER 48 HOURS Resulted 06/15/19 02:45 Nasopharynx Coronavirus COVID-19 PCR ([facility]) - Final Complete 06/15/19 02:45 Nasal Nares - Final Complete 06/15/19 02:45 Nasal Nares - Final Complete Laboratory Tests Test 06/17/19 08:50 White Blood Count 6.4 K/UL (4.8-10.8) # Red Blood Count 3.79 M/UL (4.70-6.10) L Hemoglobin 11.7 G/DL (14.2-18.0) L Hematocrit 34.2 % (42.0-52.0) L Mean Corpuscular Volume 90 FL (80-99) Mean Corpuscular Hemoglobin 30.8 PG (27.0-31.0) Mean Corpuscular Hemoglobin Concent 34.1 G/DL (32.0-36.0) Red Cell Distribution Width 13.3 % (11.6-14.8) Platelet Count 160 K/UL (150-450) Mean Platelet Volume 5.2 FL (6.5-10.1) L Neutrophils (%) (Auto) % (45.0-75.0) Lymphocytes (%) (Auto) % (20.0-45.0) Monocytes (%) (Auto) % (1.0-10.0) Eosinophils (%) (Auto) % (0.0-3.0) Basophils (%) (Auto) % (0.0-2.0) Differential Total Cells Counted 100 Neutrophils % (Manual) 51 % (45-75) Lymphocytes % (Manual) 24 % (20-45) Monocytes % (Manual) 19 % (1-10) H Eosinophils % (Manual) 5 % (0-3) H Basophils % (Manual) 0 % (0-2) Band Neutrophils 1 % (0-8) Platelet Estimate Adequate Platelet Morphology Normal Hypochromasia 1+ Anisocytosis 1+ Erythrocyte Sedimentation Rate 84 MM/HR (0-20) H Sodium Level 136 MMOL/L (136-145) Potassium Level 3.2 MMOL/L (3.5-5.1) L Chloride Level 102 MMOL/L (98-107) Carbon Dioxide Level 28 MMOL/L (21-32) Anion Gap 6 mmol/L (5-15) Blood Urea Nitrogen 15 mg/dL (7-18) Creatinine 0.8 MG/DL (0.55-1.30) Estimat Glomerular Filtration Rate > 60 mL/min (>60) Glucose Level 111 MG/DL (74-106) H Calcium Level 8.4 MG/DL (8.5-10.1) L Phosphorus Level 2.3 MG/DL (2.5-4.9) L Magnesium Level 1.7 MG/DL (1.8-2.4) L Total Bilirubin 0.3 MG/DL (0.2-1.0) Aspartate Amino Transf (AST/SGOT) 49 U/L (15-37) H Alanine Aminotransferase (ALT/SGPT) 20 U/L (12-78) Alkaline Phosphatase 87 U/L (46-116) C-Reactive Protein, Quantitative 9.6 mg/dL (0.00-0.90) H Total Protein 6.0 G/DL (6.4-8.2) L Albumin 1.8 G/DL (3.4-5.0) L Globulin 4.2 g/dL Albumin/Globulin Ratio 0.4 (1.0-2.7) L Current Medications Medications (Trade) Dose Ordered Sig/Ricardo Route PRN Reason Start Time Stop Time Status Last Admin Dose Admin Acetaminophen (Tylenol) 650 mg Q4H PRN GT Mild Pain/Temp > 100.5 06/17/19 14:30 07/15/19 18:29 Albuterol/ Ipratropium (Albuterol/ Ipratropium) 3 ml Q4H PRN HHN Shortness of Breath 06/17/19 14:45 06/20/19 14:44 Cefepime HCl 1 gm/ Dextrose 55 ml @ 110 mls/hr Q24H IV 06/17/19 15:00 06/22/19 14:59 06/17/19 15:06 Dextrose/Sodium Chloride 1,000 ml @ 75 mls/hr [id number] IV 06/17/19 14:00 07/15/19 19:59 Donepezil HCl (Aricept) 5 mg DAILY ORAL 06/18/19 09:00 07/15/19 08:59 Gabapentin (Neurontin) 300 mg THREE TIMES A DAY ORAL 06/17/19 18:00 07/15/19 08:59 Magnesium Sulfate 100 ml @ 100 mls/hr Q1H IVPB 06/17/19 21:00 06/17/19 22:59 Nitroglycerin (Ntg) 0.4 mg Q5M PRN SL Prn Chest Pain 06/17/19 14:00 07/15/19 08:29 Ondansetron HCl (Zofran) 4 mg Q6H PRN IVP Nausea & Vomiting 06/17/19 14:30 07/15/19 08:29 Polyethylene Glycol (Miralax) 17 gm DAILYPRN PRN ORAL Constipation 06/17/19 14:30 07/17/19 14:29 Potassium Chloride 100 ml @ 110 mls/hr Q1H IVPB 06/17/19 14:30 06/17/19 16:25 06/17/19 14:40 Promethazine HCl/ Codeine (Phenergan with Codeine) 5 ml Q4H PRN ORAL For Cough 06/17/19 14:45 07/15/19 14:44 Quetiapine Fumarate (SEROqueL) 100 mg TWICE A DAY ORAL 06/17/19 18:00 07/30/19 08:59 Rivaroxaban (Xarelto) 20 mg DAILY ORAL 06/18/19 09:00 09/13/19 08:59 Sodium Phosphate 30 mm/Sodium Chloride 285 ml @ 47.5 mls/hr ONCE ONCE IV 06/17/19 15:00 06/17/19 20:59 Temazepam (Restoril) 15 mg HSPRN PRN ORAL Insomnia 06/17/19 14:45 06/24/19 14:44 Vancomycin HCl (Vanco rx to dose) 1 ea DAILY PRN MISC Per rx protocol 06/18/19 09:00 07/15/19 08:29 Vancomycin HCl 750 mg/Dextrose 275 ml @ 183.333 mls/hr Q24H IVPB 06/17/19 18:00 06/21/19 17:59 Pili Lenz MD Jun 17, 2019 15:37
[2019-06-17 16:00] VITALS: BP 109/66
[2019-06-17] MEDS: Vancomycin 750 MG in D5W 275 ML IVPB SCH (18:40)
[2019-06-17 20:00] VITALS: BP 128/50
[2019-06-18] VITALS (7 sets, daily range): BP systolic 93–111; BP diastolic 43–71
[2019-06-18] MEDS: D5 1/2NS 1,000 ML IV SCH (03:20)
[2019-06-18 07:34] LABS: BASOPHILS % (AUTO) 0.9 % (0.0-2.0); EOSINOPHILS % (AUTO) 7.2 % (0.0-3.0); HEMATOCRIT 34.6 % (42.0-52.0); HEMOGLOBIN 11.8 G/DL (14.2-18.0); LYMPHOCYTES % (AUTO) 31.1 % (20.0-45.0); MEAN CORPUSCULAR VOLUME 91 FL (80-99); MONOCYTES % (AUTO) 14.5 % (1.0-10.0); NEUTROPHILS % (AUTO) 46.4 % (45.0-75.0); PLATELET COUNT 127 K/UL (150-450); RED BLOOD COUNT 3.81 M/UL (4.70-6.10); RED CELL DISTRIBUTION WIDTH 13.3 % (11.6-14.8); WHITE BLOOD COUNT 6.9 K/UL (4.8-10.8)
[2019-06-18 07:58] LABS: ALANINE AMINOTRANSFERASE 22 U/L (12-78); ALBUMIN 1.8 G/DL (3.4-5.0); ALBUMIN/GLOBULIN RATIO 0.4 (1.0-2.7); ALKALINE PHOSPHATASE 92 U/L (46-116); ANION GAP 7 mmol/L (5-15); ASPARTATE AMINO TRANSFERASE 49 U/L (15-37); BILIRUBIN,TOTAL 0.3 MG/DL (0.2-1.0); BLOOD UREA NITROGEN 11 mg/dL (7-18); CALCIUM 8.1 MG/DL (8.5-10.1); CARBON DIOXIDE 27 MMOL/L (21-32); CHLORIDE 105 MMOL/L (98-107); CREATININE 0.9 MG/DL (0.55-1.30); PHOSPHORUS 3.4 MG/DL (2.5-4.9); POTASSIUM 4.4 MMOL/L (3.5-5.1); SODIUM 139 MMOL/L (136-145)
--- NOTE | 2019-06-18 08:40 | General Progress Note ---
Assessment/Plan Problem List: (1) DM (diabetes mellitus) ICD Codes: E11.9 - Type 2 diabetes mellitus without complications SNOMED: 93263686 (2) Feeding by G-tube ICD Codes: Z93.1 - Gastrostomy status SNOMED: 510139436, 152404803, 599895359 (3) LILIAM (acute kidney injury) ICD Codes: N17.9 - Acute kidney failure, unspecified SNOMED: 34408816, 0620103 (4) Sepsis ICD Codes: A41.9 - Sepsis, unspecified organism SNOMED: 68829920, 463393138 Qualifiers: Qualified Codes: A41.9 - Sepsis, unspecified organism; R65.20 - Severe sepsis without septic shock; N17.9 - Acute kidney failure, unspecified (5) PVD (peripheral vascular disease) ICD Codes: I73.9 - Peripheral vascular disease, unspecified SNOMED: 383080442 (6) Encounter for PEG (percutaneous endoscopic gastrostomy) ICD Codes: Z43.1 - Encounter for attention to gastrostomy SNOMED: 786062730, 884200412 Status: stable, progressing Assessment/Plan: o2 pulm tx abx pt diet cbc bmp am dc plan Subjective Constitutional: Reports: weakness Allergies: Coded Allergies: No Known Allergies (Unverified , 01/24/19) All Systems: reviewed and negative except above Subjective o2nc sleep Objective Last 24 Hour Vital Signs Date Time Temp Pulse Resp B/P (MAP) Pulse Ox O2 Delivery O2 Flow Rate FiO2 06/18/19 04:00 98.6 71 18 100/50 (67) 96 06/18/19 04:00 72 06/18/19 00:00 98.0 74 16 100/54 (69) 95 06/18/19 00:00 74 06/17/19 21:00 Nasal Cannula 2.0 06/17/19 20:00 85 06/17/19 20:00 97.7 72 16 128/50 (76) 96 06/17/19 16:00 97.9 78 20 109/66 (80) 98 06/17/19 16:00 73 06/17/19 12:00 Nasal Cannula 4.0 06/17/19 12:00 97.0 72 18 111/62 (78) 100 06/17/19 11:40 63 Intake and Output 06/17/19 06/18/19 19:00 07:00 Intake Total 880 ml Output Total 450 ml 1200 ml Balance 430 ml -1200 ml Intake IV Total 880 ml Output Urine Total 450 ml 1200 ml Stool Total 0 ml # Voids 1 Laboratory Tests 06/17/19 08:50: White Blood Count 6.4#, Red Blood Count 3.79L, Hemoglobin 11.7L, Hematocrit 34.2L, Mean Corpuscular Volume 90, Mean Corpuscular Hemoglobin 30.8, Mean Corpuscular Hemoglobin Concent 34.1, Red Cell Distribution Width 13.3, Platelet Count 160, Mean Platelet Volume 5.2L, Neutrophils (%) (Auto) , Lymphocytes (%) ( Auto) , Monocytes (%) (Auto) , Eosinophils (%) (Auto) , Basophils (%) (Auto) , Differential Total Cells Counted 100, Neutrophils % (Manual) 51, Lymphocytes % ( Manual) 24, Monocytes % (Manual) 19H, Eosinophils % (Manual) 5H, Basophils % ( Manual) 0, Band Neutrophils 1, Platelet Estimate Adequate, Platelet Morphology Normal, Hypochromasia 1+, Anisocytosis 1+, Erythrocyte Sedimentation Rate 84H, Sodium Level 136, Potassium Level 3.2L, Chloride Level 102, Carbon Dioxide Level 28, Anion Gap 6, Blood Urea Nitrogen 15, Creatinine 0.8, Estimat Glomerular Filtration Rate > 60, Glucose Level 111H, Calcium Level 8.4L, Phosphorus Level 2.3L, Magnesium Level 1.7L, Total Bilirubin 0.3, Aspartate Amino Transf (AST/SGOT) 49H, Alanine Aminotransferase (ALT/SGPT) 20, Alkaline Phosphatase 87, C-Reactive Protein, Quantitative 9.6H, Total Protein 6.0L, Albumin 1.8L, Globulin 4.2, Albumin/Globulin Ratio 0.4L 06/18/19 06:04: White Blood Count 6.9, Red Blood Count 3.81L, Hemoglobin 11.8L, Hematocrit 34.6L , Mean Corpuscular Volume 91, Mean Corpuscular Hemoglobin 31.0, Mean Corpuscular Hemoglobin Concent 34.1, Red Cell Distribution Width 13.3, Platelet Count 127L, Mean Platelet Volume 6.3L, Neutrophils (%) (Auto) 46.4, Lymphocytes (%) (Auto) 31.1, Monocytes (%) (Auto) 14.5H, Eosinophils (%) (Auto) 7.2H, Basophils (%) (Auto) 0.9, Erythrocyte Sedimentation Rate [Pending], Sodium Level 139, Potassium Level 4.4, Chloride Level 105, Carbon Dioxide Level 27, Anion Gap 7, Blood Urea Nitrogen 11, Creatinine 0.9, Estimat Glomerular Filtration Rate > 60, Glucose Level 84, Calcium Level 8.1L, Phosphorus Level 3.4 , Magnesium Level 2.2, Total Bilirubin 0.3, Aspartate Amino Transf (AST/SGOT) 49H, Alanine Aminotransferase (ALT/SGPT) 22, Alkaline Phosphatase 92, C- Reactive Protein, Quantitative 7.9H, Total Protein 6.1L, Albumin 1.8L, Globulin 4.3, Albumin/Globulin Ratio 0.4L Height (Feet): 5 Height (Inches): 9.00 Weight (Pounds): 150 General Appearance: lethargic EENT: normal ENT inspection Neck: normal alignment Cardiovascular: normal peripheral pulses, normal rate, regular rhythm Respiratory/Chest: chest wall non-tender, lungs clear, normal breath sounds Abdomen: normal bowel sounds, non tender, soft Extremities: normal inspection Edema: no edema noted Arm (L), no edema noted Arm (R), no edema noted Leg (L), no edema noted Leg (R), no edema noted Pedal (L), no edema noted Pedal (R), no edema noted Generalized Neurologic: motor weakness Skin: normal pigmentation, warm/dry Corey Short DO Jun 18, 2019 08:40
[2019-06-18] MEDS ORDERED: Xarelto 10mg tab ORAL SCH (09:00)
[2019-06-18] MEDS ORDERED: Donepezil 5mg Tab ORAL SCH (09:00)
--- NOTE | 2019-06-18 12:44 | Pulmonology Progress Note ---
Assessment/Plan Problems: (1) HCAP (healthcare-associated pneumonia) (2) Suspected COVID-19 virus infection (3) Systolic heart failure (4) DM (diabetes mellitus) (5) cardiomyopathy with EF of 35% (6) Schizophrenia Assessment/Plan afebrile now wbc decreasing respiratory isolation respiratory treatment titrate fio2 to sat of 92% tao culture iv abx dc iv fluids med/surg First Covid is negative, group home asking for a second one psych to see dvt prophylaxis. Subjective ROS Limited/Unobtainable: No Interval Events: skin rash by scabies HEENT: Repors: no symptoms Allergies: Coded Allergies: No Known Allergies (Unverified , 01/24/19) Objective Last 24 Hour Vital Signs Date Time Temp Pulse Resp B/P (MAP) Pulse Ox O2 Delivery O2 Flow Rate FiO2 06/18/19 12:00 97.4 90 20 107/64 (78) 95 06/18/19 09:00 Nasal Cannula 2.0 06/18/19 08:00 95 06/18/19 08:00 97.3 89 20 108/71 (83) 96 06/18/19 04:00 98.6 71 18 100/50 (67) 96 06/18/19 04:00 72 06/18/19 00:00 98.0 74 16 100/54 (69) 95 06/18/19 00:00 74 06/17/19 21:00 Nasal Cannula 2.0 06/17/19 20:00 85 06/17/19 20:00 97.7 72 16 128/50 (76) 96 06/17/19 16:00 97.9 78 20 109/66 (80) 98 06/17/19 16:00 73 Intake and Output 06/17/19 06/18/19 19:00 07:00 Intake Total 880 ml Output Total 450 ml 1200 ml Balance 430 ml -1200 ml Intake IV Total 880 ml Output Urine Total 450 ml 1200 ml Stool Total 0 ml # Voids 1 General Appearance: WD/WN Respiratory/Chest: chest wall non-tender, lungs clear Cardiovascular: normal peripheral pulses, normal rate Abdomen: normal bowel sounds, soft, non tender Extremities: no cyanosis Skin: no rash Neurologic/Psychiatric: manager film II-XII grossly normal Laboratory Tests 06/18/19 06:04: White Blood Count 6.9, Red Blood Count 3.81L, Hemoglobin 11.8L, Hematocrit 34.6L , Mean Corpuscular Volume 91, Mean Corpuscular Hemoglobin 31.0, Mean Corpuscular Hemoglobin Concent 34.1, Red Cell Distribution Width 13.3, Platelet Count 127L, Mean Platelet Volume 6.3L, Neutrophils (%) (Auto) 46.4, Lymphocytes (%) (Auto) 31.1, Monocytes (%) (Auto) 14.5H, Eosinophils (%) (Auto) 7.2H, Basophils (%) (Auto) 0.9, Erythrocyte Sedimentation Rate 66H, Sodium Level 139, Potassium Level 4.4, Chloride Level 105, Carbon Dioxide Level 27, Anion Gap 7, Blood Urea Nitrogen 11, Creatinine 0.9, Estimat Glomerular Filtration Rate > 60 , Glucose Level 84, Calcium Level 8.1L, Phosphorus Level 3.4, Magnesium Level 2.2, Total Bilirubin 0.3, Aspartate Amino Transf (AST/SGOT) 49H, Alanine Aminotransferase (ALT/SGPT) 22, Alkaline Phosphatase 92, C-Reactive Protein, Quantitative 7.9H, Total Protein 6.1L, Albumin 1.8L, Globulin 4.3, Albumin/ Globulin Ratio 0.4L Current Medications Medications (Trade) Dose Ordered Sig/Ricardo Route PRN Reason Start Time Stop Time Status Last Admin Dose Admin Acetaminophen (Tylenol) 650 mg Q4H PRN GT Mild Pain/Temp > 100.5 06/17/19 14:30 07/15/19 18:29 Albuterol/ Ipratropium (Albuterol/ Ipratropium) 3 ml Q4H PRN HHN Shortness of Breath 06/17/19 14:45 06/20/19 14:44 Cefepime HCl 1 gm/ Dextrose 55 ml @ 110 mls/hr Q24H IV 06/17/19 15:00 06/22/19 14:59 06/17/19 15:06 Dextrose/Sodium Chloride 1,000 ml @ 75 mls/hr [id number] IV 06/17/19 14:00 07/15/19 19:59 06/18/19 03:20 Donepezil HCl (Aricept) 5 mg DAILY ORAL 06/18/19 09:00 07/15/19 08:59 06/18/19 09:09 Gabapentin (Neurontin) 300 mg THREE TIMES A DAY ORAL 06/17/19 18:00 07/15/19 08:59 06/18/19 09:09 Nitroglycerin (Ntg) 0.4 mg Q5M PRN SL Prn Chest Pain 06/17/19 14:00 07/15/19 08:29 Ondansetron HCl (Zofran) 4 mg Q6H PRN IVP Nausea & Vomiting 06/17/19 14:30 07/15/19 08:29 Polyethylene Glycol (Miralax) 17 gm DAILYPRN PRN ORAL Constipation 06/17/19 14:30 07/17/19 14:29 Promethazine HCl/ Codeine (Phenergan with Codeine) 5 ml Q4H PRN ORAL For Cough 06/17/19 14:45 07/15/19 14:44 Quetiapine Fumarate (SEROqueL) 100 mg TWICE A DAY ORAL 06/17/19 18:00 07/30/19 08:59 06/18/19 09:09 Rivaroxaban (Xarelto) 20 mg DAILY ORAL 06/18/19 09:00 09/13/19 08:59 06/18/19 09:09 Temazepam (Restoril) 15 mg HSPRN PRN ORAL Insomnia 06/17/19 14:45 06/24/19 14:44 Vancomycin HCl (Vanco rx to dose) 1 ea DAILY PRN MISC Per rx protocol 06/18/19 09:00 07/15/19 08:29 Vancomycin HCl 750 mg/Dextrose 275 ml @ 183.333 mls/hr Q24H IVPB 06/17/19 18:00 06/21/19 17:59 06/17/19 18:40 Ron Anthony MD Jun 18, 2019 12:44
[2019-06-18] MEDS: Cefepime HCl 1 GM in D5W 55 ML IV SCH (15:26)
[2019-06-18] MEDS ORDERED: Varibar Honey 250ml MC PRN (16:45)
[2019-06-18] MEDS ORDERED: Varibar Pudding 230ml MC PRN (16:45)
[2019-06-18] MEDS ORDERED: Varibar Nectar 240ml MC PRN (16:45)
[2019-06-18] MEDS: Vancomycin 750 MG in D5W 275 ML IVPB SCH ×2 (17:04→18:42)
[2019-06-18] MEDS ORDERED: Acetaminophen 650mg/20.3ml GT PRN ×2 (17:41→20:44)
[2019-06-18] MEDS ORDERED: Promethazine/Codeine 5ml UD ORAL PRN ×2 (17:44→21:45)
[2019-06-18] MEDS ORDERED: Nitroglycerin Subl 0.4mg tab SL PRN ×2 (17:45→20:35)
--- NOTE | 2019-06-18 17:51 | Infectious Diseases Prog Note ---
Assessment/Plan Assessment/Plan Fever 101 at NH, SP Leukocytosis, SP Sepsis, improving Elevated lactate, SP PNA, on rx CXR: Right upper lobe and left perihilar mild interstitial opacities. This is nonspecific, could indicate infectious interstitial disease is, residual chronic interstitial disease, or mild pulmonary edema, among many other possibilities flu swab negative SARS-CoV PCR negative Probable Scabies, sp rx r/o bacteremia unlikely UTI UA neg Multiple pressure injuries h/o MRSA pneumonia GERD DM Schizophrenia HTN [place] resident COPD Tobacco abuse Kidney cancer OA CKD Anemia PVD CHF Plan: Cefepime and vanc #4/7 06/14 SP Permethrin #1, repeat in one week 06/14 SP Levaquin #1 f/u bcx f/u sputum culture monitor temp and CBC monitor resp status DW RN Subjective Allergies: Coded Allergies: No Known Allergies (Unverified , 01/24/19) Subjective Afebrile. on 2L transferring out of telemetry Objective Vital Signs Last 24 Hour Vital Signs Date Time Temp Pulse Resp B/P (MAP) Pulse Ox O2 Delivery O2 Flow Rate FiO2 06/18/19 16:00 97.8 84 20 111/43 (65) 94 06/18/19 16:00 90 06/18/19 12:00 85 06/18/19 12:00 97.4 90 20 107/64 (78) 95 06/18/19 09:00 Nasal Cannula 2.0 06/18/19 08:00 95 06/18/19 08:00 97.3 89 20 108/71 (83) 96 06/18/19 04:00 98.6 71 18 100/50 (67) 96 06/18/19 04:00 72 06/18/19 00:00 98.0 74 16 100/54 (69) 95 06/18/19 00:00 74 06/17/19 21:00 Nasal Cannula 2.0 06/17/19 20:00 85 06/17/19 20:00 97.7 72 16 128/50 (76) 96 Height (Feet): 5 Height (Inches): 9.00 Weight (Pounds): 150 Objective Gen: NAD. normocephalic. atraumatic. well nourished. CV: S1+S2. regular. no rubs. Resp: RRR. unlabored. equal chest rise. Abd: Soft. no TTP. nondistended. Laboratory Tests Test 06/18/19 06:04 06/18/19 17:15 White Blood Count 6.9 K/UL (4.8-10.8) Red Blood Count 3.81 M/UL (4.70-6.10) L Hemoglobin 11.8 G/DL (14.2-18.0) L Hematocrit 34.6 % (42.0-52.0) L Mean Corpuscular Volume 91 FL (80-99) Mean Corpuscular Hemoglobin 31.0 PG (27.0-31.0) Mean Corpuscular Hemoglobin Concent 34.1 G/DL (32.0-36.0) Red Cell Distribution Width 13.3 % (11.6-14.8) Platelet Count 127 K/UL (150-450) L Mean Platelet Volume 6.3 FL (6.5-10.1) L Neutrophils (%) (Auto) 46.4 % (45.0-75.0) Lymphocytes (%) (Auto) 31.1 % (20.0-45.0) Monocytes (%) (Auto) 14.5 % (1.0-10.0) H Eosinophils (%) (Auto) 7.2 % (0.0-3.0) H Basophils (%) (Auto) 0.9 % (0.0-2.0) Erythrocyte Sedimentation Rate 66 MM/HR (0-20) H Sodium Level 139 MMOL/L (136-145) Potassium Level 4.4 MMOL/L (3.5-5.1) Chloride Level 105 MMOL/L (98-107) Carbon Dioxide Level 27 MMOL/L (21-32) Anion Gap 7 mmol/L (5-15) Blood Urea Nitrogen 11 mg/dL (7-18) Creatinine 0.9 MG/DL (0.55-1.30) Estimat Glomerular Filtration Rate > 60 mL/min (>60) Glucose Level 84 MG/DL (74-106) Calcium Level 8.1 MG/DL (8.5-10.1) L Phosphorus Level 3.4 MG/DL (2.5-4.9) Magnesium Level 2.2 MG/DL (1.8-2.4) Total Bilirubin 0.3 MG/DL (0.2-1.0) Aspartate Amino Transf (AST/SGOT) 49 U/L (15-37) H Alanine Aminotransferase (ALT/SGPT) 22 U/L (12-78) Alkaline Phosphatase 92 U/L (46-116) C-Reactive Protein, Quantitative 7.9 mg/dL (0.00-0.90) H Total Protein 6.1 G/DL (6.4-8.2) L Albumin 1.8 G/DL (3.4-5.0) L Globulin 4.3 g/dL Albumin/Globulin Ratio 0.4 (1.0-2.7) L Vancomycin Level Trough Pending Current Medications Medications (Trade) Dose Ordered Sig/Ricardo Route PRN Reason Start Time Stop Time Status Last Admin Dose Admin Acetaminophen (Tylenol) 650 mg Q4H PRN GT MILD/TEMP 06/18/19 17:41 07/15/19 17:40 Albuterol/ Ipratropium (Albuterol/ Ipratropium) 3 ml Q4H PRN HHN Shortness of Breath 06/18/19 18:45 06/20/19 14:44 Barium Sulfate (Varibar Honey) 250 ml NOW PRN MC RAD 06/19/19 16:45 06/21/19 16:32 Barium Sulfate (Varibar Blue Sky) 240 ml NOW PRN MC RAD 06/19/19 16:45 06/21/19 16:32 Barium Sulfate (Varibar Pudding) 230 ml NOW PRN MC RAD 06/19/19 16:45 06/21/19 16:32 Cefepime HCl 1 gm/ Dextrose 55 ml @ 110 mls/hr Q24H IV 06/19/19 15:00 06/22/19 14:59 Donepezil HCl (Aricept) 5 mg DAILY ORAL 06/19/19 09:00 07/15/19 08:59 Gabapentin (Neurontin) 300 mg THREE TIMES A DAY ORAL 06/18/19 18:00 07/15/19 08:59 Nitroglycerin (Ntg) 0.4 mg Q5M PRN SL Prn Chest Pain 06/18/19 17:45 07/15/19 08:29 Ondansetron HCl (Zofran) 4 mg Q6H PRN IVP Nausea & Vomiting 06/18/19 17:43 07/15/19 17:42 Polyethylene Glycol (Miralax) 17 gm DAILYPRN PRN ORAL Constipation 06/19/19 14:30 07/17/19 14:29 Promethazine HCl/ Codeine (Phenergan with Codeine) 5 ml Q4H PRN ORAL For Cough 06/18/19 17:44 07/15/19 17:43 Quetiapine Fumarate (SEROqueL) 100 mg TWICE A DAY ORAL 06/18/19 18:00 07/30/19 08:59 Rivaroxaban (Xarelto) 20 mg DAILY ORAL 06/19/19 09:00 09/13/19 08:59 Temazepam (Restoril) 15 mg HSPRN PRN ORAL Insomnia 06/18/19 21:00 06/25/19 20:59 Vancomycin HCl (Vanco rx to dose) 1 ea DAILY PRN MISC Per rx protocol 06/19/19 09:00 07/15/19 08:29 Vancomycin HCl 750 mg/Dextrose 275 ml @ 183.333 mls/hr Q24H IVPB 06/18/19 18:00 06/21/19 17:59 Pili Lenz MD Jun 18, 2019 17:51
[2019-06-18] MEDS ORDERED: Vancomycin 750 MG in D5W 275 ML IVPB SCH (18:00)
[2019-06-18] MEDS ORDERED: Albuterol/Ipratropium 3ml neb HHN PRN ×2 (18:45→22:45)
--- NOTE | 2019-06-18 19:37 | Surgery Progress Note ---
Surgery Progress Note Subjective Symptoms: improved, tolerating diet, passing flatus, BM Objective Last 24 Hour Vital Signs Date Time Temp Pulse Resp B/P (MAP) Pulse Ox O2 Delivery O2 Flow Rate FiO2 06/18/19 16:00 97.8 84 20 111/43 (65) 94 06/18/19 16:00 90 06/18/19 12:00 85 06/18/19 12:00 97.4 90 20 107/64 (78) 95 06/18/19 09:00 Nasal Cannula 2.0 06/18/19 08:00 95 06/18/19 08:00 97.3 89 20 108/71 (83) 96 06/18/19 04:00 98.6 71 18 100/50 (67) 96 06/18/19 04:00 72 06/18/19 00:00 98.0 74 16 100/54 (69) 95 06/18/19 00:00 74 06/17/19 21:00 Nasal Cannula 2.0 06/17/19 20:00 85 06/17/19 20:00 97.7 72 16 128/50 (76) 96 I&O Intake and Output 06/17/19 06/18/19 19:00 07:00 Intake Total 880 ml Output Total 450 ml 1200 ml Balance 430 ml -1200 ml Intake IV Total 880 ml Output Urine Total 450 ml 1200 ml Stool Total 0 ml # Voids 1 Dressing: saturated Wound: other Drains: other Cardiovascular: RSR Respiratory: decreased breath sounds Abdomen: soft, non-tender, present bowel sounds Extremities: edema, no tenderness, no cyanosis Laboratory Tests Test 06/18/19 06:04 06/18/19 17:15 White Blood Count 6.9 K/UL (4.8-10.8) Red Blood Count 3.81 M/UL (4.70-6.10) L Hemoglobin 11.8 G/DL (14.2-18.0) L Hematocrit 34.6 % (42.0-52.0) L Mean Corpuscular Volume 91 FL (80-99) Mean Corpuscular Hemoglobin 31.0 PG (27.0-31.0) Mean Corpuscular Hemoglobin Concent 34.1 G/DL (32.0-36.0) Red Cell Distribution Width 13.3 % (11.6-14.8) Platelet Count 127 K/UL (150-450) L Mean Platelet Volume 6.3 FL (6.5-10.1) L Neutrophils (%) (Auto) 46.4 % (45.0-75.0) Lymphocytes (%) (Auto) 31.1 % (20.0-45.0) Monocytes (%) (Auto) 14.5 % (1.0-10.0) H Eosinophils (%) (Auto) 7.2 % (0.0-3.0) H Basophils (%) (Auto) 0.9 % (0.0-2.0) Erythrocyte Sedimentation Rate 66 MM/HR (0-20) H Sodium Level 139 MMOL/L (136-145) Potassium Level 4.4 MMOL/L (3.5-5.1) Chloride Level 105 MMOL/L (98-107) Carbon Dioxide Level 27 MMOL/L (21-32) Anion Gap 7 mmol/L (5-15) Blood Urea Nitrogen 11 mg/dL (7-18) Creatinine 0.9 MG/DL (0.55-1.30) Estimat Glomerular Filtration Rate > 60 mL/min (>60) Glucose Level 84 MG/DL (74-106) Calcium Level 8.1 MG/DL (8.5-10.1) L Phosphorus Level 3.4 MG/DL (2.5-4.9) Magnesium Level 2.2 MG/DL (1.8-2.4) Total Bilirubin 0.3 MG/DL (0.2-1.0) Aspartate Amino Transf (AST/SGOT) 49 U/L (15-37) H Alanine Aminotransferase (ALT/SGPT) 22 U/L (12-78) Alkaline Phosphatase 92 U/L (46-116) C-Reactive Protein, Quantitative 7.9 mg/dL (0.00-0.90) H Total Protein 6.1 G/DL (6.4-8.2) L Albumin 1.8 G/DL (3.4-5.0) L Globulin 4.3 g/dL Albumin/Globulin Ratio 0.4 (1.0-2.7) L Vancomycin Level Trough 14.7 ug/mL (5.0-12.0) H Plan Problems: (1) Sepsis Assessment & Plan: This is a 68-year-old male that presented with fevers, leukocytosis, lactic acidosis. Patient septic and requiring work-up care and management. COPD ID evaluation. IV antibiotics per infectious disease. IV fluid hydration. Lactic improving with hydration. Patient awake alert responsive otherwise comfortable but does have wounds that are very tender. Wounds unlikely etiology of infection. Pending microbiology. Labs reviewed. improved covid neg d/c planning (2) DM (diabetes mellitus) (3) Feeding by G-tube Assessment & Plan: DAILY ESTIMATED NEEDS: Needs based on Pulmonary, sepsis, wounds 69kg 25-30 kcals/kg 9418-1129 total kcals 1.25-2 g protein/kg 86-138 g total protein 25-30 mL/kg 2311-0162 total fluid mLs NUTRITION DIAGNOSIS: *Swallowing difficulty R/T dysphagia, confusion as evidenced by s/p PEG placement, on oral diet at SNF, now w/ recs for GT feeds pending VSS. CURRENT DIET:NPO PO DIET RECOMMENDATIONS: IF ORAL GRAT INDICATED: rec liberalized REGULAR/ texture per FOREIGN LEGAL CONSULTANT ENTERAL NUTRITION RECOMMENDATIONS: Glucerna 1.5 @ 50ml/hr x24 hrs to provide 1200ml, 1800 kcal, 99g pro, 911ml free H2o As medically able, rec start GT feeds to meet est nutritional needs - Initiate Glucerna 1.5 @ 20ml/hr x 6 hrs - Advance 10ml q 4-6 hrs as tolerated to goal rate. - HOB over 30 degrees/ water flush per MD ADDITIONAL RECOMMENDATIONS: 1) Per SNF: HT 71 inches, rec calibrated bed scale wts for eval 2) Updated HgA1C for eval 3) Wound care: w/ diet, rec DANIELA BID (via GT or oral) + Vit C 250mg BID F/up w/ WC eval 4) FOREIGN LEGAL CONSULTANT re-eval for possible oral grat w/ GT feeds . (4) LILIAM (acute kidney injury) (5) Suspected COVID-19 virus infection (6) Thrombocytopenia (7) DVT (deep venous thrombosis) (8) HCAP (healthcare-associated pneumonia) (9) Acute DVT (deep venous thrombosis) (10) Wound, open Assessment & Plan: Pt presented on admission with two wounds of unknown etiology, Pressure injury sacrum and both heels. Generalized rash which is pink and pimple-like in appearance, scaled rash noted to both distal lower extremities and both feet. 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 (L)1cm x (W)1.8cm x (D)1.2cm. Yellow slough noted along hartmann of wound. Edges and periwound erythematous. NO elevation in skin temp or induration periwound. Small amt haemopurulent exudate noted. Full thickness stage 4 wound noted to upper back(L)0.7cm x (W)1.9cm, tunneled depth 0.9cm. Mixed slough and erythema noted along hartmann of wound.Small amt seropurulent exudate. No odor noted. Marginal erythema without induration or elevation in skin temp periwound. Non-blanching erythema without induration sacrum. Historical scars noted to R and L ischial tuberosities. Unstageable pressure injury noted to L heel(L)1.5cm x (W)2.5cm. 100% dry eschar noted at base of heel. Edges adherent,erythematous and dry. Periwound heel is boggy with non-blanching erythema. R heel is boggy with non-blanchable erythema. Non-blanchable erythema without induration or fluctuance medial/lateral L foot.( L)1.5cm x (W)1.5cm. Non-blanchable erythema without induration or fluctuance noted to distal/ lateral L foot. Non-blanchable erythema without fluctuance or induration R lateral Malleolus(L) 2cm x (W)1.5cm. Tx.Plan: Cleanse wound upper back with Saline. Loosely pack with Therahoney impregnated kerlix . Apply Cavilon Skin Barrier periwound. Cover with Optifoam drsg Daily and prn. Cleanse wound L Brachial with Saline. Loosely pack with Therahoney impregnated Kerlix. Apply Cavilon Skin Barrier periwound. Cover with Optifoam drsg Daily and prn. Apply Moisture Barrier Paste to sacrum. Cover with Optifoam drsg. Change every 3 days and prn. Apply Betadine to L heel. Cover with Optifoam drsg. Change every 3 days and prn Apply Cavilon Skin Barrier to R heel, R malleolus. Cover each site with Optifoam drsg. Change every 7 days and prn. Apply Cavilon Skin Barrier to medial/lateral, and Distal/Lateral L foot. Cover with Optifoam drsg. Change every 7 days and prn. Reposition at least every 2hours or as tolerated. Off-load heels with pillow. APM/JELLY Mattress overlay. (11) Chronic kidney disease (12) Malignant neoplasm of right kidney (13) PVD (peripheral vascular disease) (14) Schizophrenia (15) Acute respiratory failure (16) Septic shock (17) Systolic heart failure (18) Renal failure (ARF), acute on chronic (19) Bradyarrhythmia (20) Dysphagia (21) Encounter for PEG (percutaneous endoscopic gastrostomy) (22) cardiomyopathy with EF of 35% Mauricio Anne Jun 18, 2019 19:37
[2019-06-19 04:00] VITALS: BP 99/49
[2019-06-19 07:37] LABS: BASOPHILS % (AUTO) 0.4 % (0.0-2.0); EOSINOPHILS % (AUTO) 5.3 % (0.0-3.0); HEMATOCRIT 36.7 % (42.0-52.0); HEMOGLOBIN 12.5 G/DL (14.2-18.0); LYMPHOCYTES % (AUTO) 26.4 % (20.0-45.0); MEAN CORPUSCULAR VOLUME 91 FL (80-99); MONOCYTES % (AUTO) 11.6 % (1.0-10.0); NEUTROPHILS % (AUTO) 56.3 % (45.0-75.0); PLATELET COUNT 135 K/UL (150-450); RED BLOOD COUNT 4.03 M/UL (4.70-6.10); RED CELL DISTRIBUTION WIDTH 13.3 % (11.6-14.8); WHITE BLOOD COUNT 9.6 K/UL (4.8-10.8)
[2019-06-19 07:38] LABS: ANION GAP 3 mmol/L (5-15); BLOOD UREA NITROGEN 10 mg/dL (7-18); CALCIUM 8.6 MG/DL (8.5-10.1); CARBON DIOXIDE 32 MMOL/L (21-32); CHLORIDE 104 MMOL/L (98-107); CREATININE 0.9 MG/DL (0.55-1.30); SODIUM 139 MMOL/L (136-145)
--- NOTE | 2019-06-19 08:00 | Pulmonology Progress Note ---
Assessment/Plan Problems: (1) HCAP (healthcare-associated pneumonia) (2) Suspected COVID-19 virus infection (3) Systolic heart failure (4) DM (diabetes mellitus) (5) cardiomyopathy with EF of 35% (6) Schizophrenia Assessment/Plan afebrile now wbc decreasing, normal now respiratory isolation is off now respiratory treatment titrate fio2 to sat of 92% tao culture iv abx dc iv fluids med/surg First Covid is negative, detention asking for a second one psych to see dvt prophylaxis. Subjective ROS Limited/Unobtainable: No Constitutional: Reports: no symptoms HEENT: Repors: no symptoms Allergies: Coded Allergies: No Known Allergies (Unverified , 01/24/19) Objective Last 24 Hour Vital Signs Date Time Temp Pulse Resp B/P (MAP) Pulse Ox O2 Delivery O2 Flow Rate FiO2 06/19/19 04:00 97.9 98 20 99/49 (66) 95 06/18/19 23:53 97.9 74 20 109/54 (72) 96 06/18/19 21:00 Nasal Cannula 2.0 06/18/19 19:47 98.4 93 20 93/46 (62) 95 06/18/19 16:00 97.8 84 20 111/43 (65) 94 06/18/19 16:00 90 06/18/19 12:00 85 06/18/19 12:00 97.4 90 20 107/64 (78) 95 06/18/19 09:00 Nasal Cannula 2.0 06/18/19 08:00 95 06/18/19 08:00 97.3 89 20 108/71 (83) 96 Intake and Output 06/18/19 06/19/19 19:00 07:00 Intake Total 50 ml 600 ml Output Total 900 ml Balance -850 ml 600 ml Intake Free Water 200 ml Tube Feeding 50 ml 400 ml Output Urine Total 900 ml # Voids 2 Objective General Appearance: WD/WN HEENT: normocephalic Respiratory/Chest: chest wall non-tender, lungs clear Cardiovascular: normal peripheral pulses, normal rate, no gallop/murmur Abdomen: soft, non tender, non distended Extremities: no clubbing Skin: no rash, no lesions Laboratory Tests 06/18/19 17:15: Vancomycin Level Trough 14.7H 06/19/19 05:15: White Blood Count 9.6, Red Blood Count 4.03L, Hemoglobin 12.5L, Hematocrit 36.7L , Mean Corpuscular Volume 91, Mean Corpuscular Hemoglobin 31.0, Mean Corpuscular Hemoglobin Concent 34.1, Red Cell Distribution Width 13.3, Platelet Count 135L, Mean Platelet Volume 5.9L, Neutrophils (%) (Auto) 56.3, Lymphocytes (%) (Auto) 26.4, Monocytes (%) (Auto) 11.6H, Eosinophils (%) (Auto) 5.3H, Basophils (%) (Auto) 0.4, Sodium Level 139, Potassium Level 5.0, Chloride Level 104, Carbon Dioxide Level 32, Anion Gap 3L, Blood Urea Nitrogen 10, Creatinine 0.9, Estimat Glomerular Filtration Rate > 60, Glucose Level 92, Calcium Level 8.6 Current Medications Medications (Trade) Dose Ordered Sig/Ricardo Route PRN Reason Start Time Stop Time Status Last Admin Dose Admin Acetaminophen (Tylenol) 650 mg Q4H PRN GT MILD/TEMP 06/18/19 20:44 07/15/19 20:43 Albuterol/ Ipratropium (Albuterol/ Ipratropium) 3 ml Q4H PRN HHN Shortness of Breath 06/18/19 22:45 06/20/19 14:44 Barium Sulfate (Varibar Honey) 250 ml NOW PRN MC RAD 06/19/19 16:45 06/21/19 16:32 Barium Sulfate (Varibar [place]) 240 ml NOW PRN MC RAD 06/19/19 16:45 06/21/19 16:32 Barium Sulfate (Varibar [place]ud[place]) 230 ml NOW PRN MC RAD 06/19/19 16:45 06/21/19 16:32 Cefepime HCl 1 gm/ Dextrose 55 ml @ 110 mls/hr Q24H IV 06/19/19 15:00 06/22/19 14:59 Donepezil HCl (Aricept) 5 mg DAILY ORAL 06/19/19 09:00 07/15/19 08:59 Gabapentin (Neurontin) 300 mg THREE TIMES A DAY ORAL 06/19/19 09:00 07/15/19 08:59 Nitroglycerin (Ntg) 0.4 mg Q5M PRN SL Prn Chest Pain 06/18/19 20:35 07/15/19 08:29 Ondansetron HCl (Zofran) 4 mg Q6H PRN IVP Nausea & Vomiting 06/18/19 20:45 07/15/19 20:44 Polyethylene Glycol (Miralax) 17 gm DAILYPRN PRN ORAL Constipation 06/19/19 14:30 07/17/19 14:29 Promethazine HCl/ Codeine (Phenergan with Codeine) 5 ml Q4H PRN ORAL For Cough 06/18/19 21:45 07/15/19 17:43 Quetiapine Fumarate (SEROqueL) 100 mg TWICE A DAY ORAL 06/19/19 09:00 07/30/19 08:59 Rivaroxaban (Xarelto) 20 mg DAILY ORAL 06/19/19 09:00 09/13/19 08:59 Temazepam (Restoril) 15 mg HSPRN PRN ORAL Insomnia 06/18/19 21:00 06/25/19 20:59 Vancomycin HCl (Vanco rx to dose) 1 ea DAILY PRN MISC Per rx protocol 06/19/19 09:00 07/15/19 08:29 Vancomycin HCl 750 mg/Dextrose 275 ml @ 183.333 mls/hr Q24H IVPB 06/19/19 18:00 06/21/19 17:59 Ron Anthony MD Jun 19, 2019 08:00
[2019-06-19] MEDS ORDERED: Donepezil 5mg Tab ORAL SCH (09:00)
[2019-06-19] MEDS ORDERED: Xarelto 10mg tab ORAL SCH (09:00)
--- NOTE | 2019-06-19 09:06 | General Progress Note ---
Assessment/Plan Problem List: (1) DM (diabetes mellitus) ICD Codes: E11.9 - Type 2 diabetes mellitus without complications SNOMED: 82474474 (2) Feeding by G-tube ICD Codes: Z93.1 - Gastrostomy status SNOMED: 166316228, 818225276, 794552680 (3) LILIAM (acute kidney injury) ICD Codes: N17.9 - Acute kidney failure, unspecified SNOMED: 64748509, 0636948 (4) Sepsis ICD Codes: A41.9 - Sepsis, unspecified organism SNOMED: 34303550, 875352273 Qualifiers: Qualified Codes: A41.9 - Sepsis, unspecified organism; R65.20 - Severe sepsis without septic shock; N17.9 - Acute kidney failure, unspecified (5) PVD (peripheral vascular disease) ICD Codes: I73.9 - Peripheral vascular disease, unspecified SNOMED: 728729771 (6) Encounter for PEG (percutaneous endoscopic gastrostomy) ICD Codes: Z43.1 - Encounter for attention to gastrostomy SNOMED: 879633469, 050873074 Status: stable, progressing Assessment/Plan: o2 pulm tx abx pt diet cbc bmp am dc if clear Subjective Constitutional: Reports: weakness Allergies: Coded Allergies: No Known Allergies (Unverified , 01/24/19) All Systems: reviewed and negative except above Subjective calm in bed Objective Last 24 Hour Vital Signs Date Time Temp Pulse Resp B/P (MAP) Pulse Ox O2 Delivery O2 Flow Rate FiO2 06/19/19 04:00 97.9 98 20 99/49 (66) 95 06/18/19 23:53 97.9 74 20 109/54 (72) 96 06/18/19 21:00 Nasal Cannula 2.0 06/18/19 19:47 98.4 93 20 93/46 (62) 95 06/18/19 16:00 97.8 84 20 111/43 (65) 94 06/18/19 16:00 90 06/18/19 12:00 85 06/18/19 12:00 97.4 90 20 107/64 (78) 95 Intake and Output 06/18/19 06/19/19 19:00 07:00 Intake Total 50 ml 600 ml Output Total 900 ml Balance -850 ml 600 ml Intake Free Water 200 ml Tube Feeding 50 ml 400 ml Output Urine Total 900 ml # Voids 2 Laboratory Tests 06/18/19 17:15: Vancomycin Level Trough 14.7H 06/19/19 05:15: White Blood Count 9.6, Red Blood Count 4.03L, Hemoglobin 12.5L, Hematocrit 36.7L , Mean Corpuscular Volume 91, Mean Corpuscular Hemoglobin 31.0, Mean Corpuscular Hemoglobin Concent 34.1, Red Cell Distribution Width 13.3, Platelet Count 135L, Mean Platelet Volume 5.9L, Neutrophils (%) (Auto) 56.3, Lymphocytes (%) (Auto) 26.4, Monocytes (%) (Auto) 11.6H, Eosinophils (%) (Auto) 5.3H, Basophils (%) (Auto) 0.4, Sodium Level 139, Potassium Level 5.0, Chloride Level 104, Carbon Dioxide Level 32, Anion Gap 3L, Blood Urea Nitrogen 10, Creatinine 0.9, Estimat Glomerular Filtration Rate > 60, Glucose Level 92, Calcium Level 8.6 Height (Feet): 5 Height (Inches): 9.00 Weight (Pounds): 150 General Appearance: lethargic EENT: normal ENT inspection Neck: normal alignment Cardiovascular: normal peripheral pulses, normal rate, regular rhythm Respiratory/Chest: chest wall non-tender, lungs clear, normal breath sounds Abdomen: normal bowel sounds, non tender, soft Extremities: normal inspection Edema: no edema noted Arm (L), no edema noted Arm (R), no edema noted Leg (L), no edema noted Leg (R), no edema noted Pedal (L), no edema noted Pedal (R), no edema noted Generalized Neurologic: motor weakness Skin: normal pigmentation, warm/dry Corey Short DO Jun 19, 2019 09:06
[2019-06-19] MEDS: Donepezil 5mg Tab ORAL SCH (09:40)
[2019-06-19] MEDS: Xarelto 10mg tab ORAL SCH (09:41)
[2019-06-19] MEDS ORDERED: NS 275ml ONE (10:25)
[2019-06-19] MEDS ORDERED: Tubing IV Blood Pump IV ONE (10:25)
[2019-06-19] MEDS ORDERED: Sterile Water Irrig 1000ml IRRIG ONE (10:25)
[2019-06-19] MEDS ORDERED: Tubing IV Secondary IV ONE ×2 (10:25→10:32)
[2019-06-19] MEDS ORDERED: D5 1/2NS 1000ml IV ONE ×2 (10:25→10:32)
[2019-06-19] MEDS: Cefepime HCl 1 GM in D5W 55 ML IVPB SCH ×2 (11:55→23:23)
[2019-06-19 12:00] VITALS: BP 100/53
--- NOTE | 2019-06-19 12:07 | Infectious Diseases Prog Note ---
Assessment/Plan Assessment/Plan A: Fever 101 at NH, SP Leukocytosis, SP Sepsis, improving Elevated lactate, SP PNA, on rx CXR: Right upper lobe and left perihilar mild interstitial opacities. This is nonspecific, could indicate infectious interstitial disease is, residual chronic interstitial disease, or mild pulmonary edema, among many other possibilities flu swab negative SARS-CoV PCR negative x 1 Probable Scabies, sp rx r/o bacteremia unlikely UTI UA neg Multiple pressure injuries h/o MRSA pneumonia GERD DM Schizophrenia HTN [place] resident COPD Tobacco abuse Kidney cancer OA CKD Anemia PVD CHF Plan: Cefepime and vanc # 5/7 06/14 SP Permethrin #1, repeat in one week 06/14 SP Levaquin #1 f/u bcx f/u sputum culture monitor temp and CBC monitor resp status Rpt COVID-19 : P FROILAN RN and house Sup,. pt need to be in isolation while 2nd COVID-19 is pending Subjective Constitutional: Denies: no symptoms, fever, chills, fatigue, anorexia, drenching sweats, other Allergies: Coded Allergies: No Known Allergies (Unverified , 01/24/19) Objective Vital Signs Last 24 Hour Vital Signs Date Time Temp Pulse Resp B/P (MAP) Pulse Ox O2 Delivery O2 Flow Rate FiO2 06/19/19 04:00 97.9 98 20 99/49 (66) 95 06/18/19 23:53 97.9 74 20 109/54 (72) 96 06/18/19 21:00 Nasal Cannula 2.0 06/18/19 19:47 98.4 93 20 93/46 (62) 95 06/18/19 16:00 97.8 84 20 111/43 (65) 94 06/18/19 16:00 90 Height (Feet): 5 Height (Inches): 9.00 Weight (Pounds): 150 HEENT: anicteric Respiratory/Chest: no respiratory distress Cardiovascular: regular rhythm Abdomen: no organomegaly Laboratory Tests Test 06/18/19 17:15 06/19/19 05:15 Vancomycin Level Trough 14.7 ug/mL (5.0-12.0) H White Blood Count 9.6 K/UL (4.8-10.8) Red Blood Count 4.03 M/UL (4.70-6.10) L Hemoglobin 12.5 G/DL (14.2-18.0) L Hematocrit 36.7 % (42.0-52.0) L Mean Corpuscular Volume 91 FL (80-99) Mean Corpuscular Hemoglobin 31.0 PG (27.0-31.0) Mean Corpuscular Hemoglobin Concent 34.1 G/DL (32.0-36.0) Red Cell Distribution Width 13.3 % (11.6-14.8) Platelet Count 135 K/UL (150-450) L Mean Platelet Volume 5.9 FL (6.5-10.1) L Neutrophils (%) (Auto) 56.3 % (45.0-75.0) Lymphocytes (%) (Auto) 26.4 % (20.0-45.0) Monocytes (%) (Auto) 11.6 % (1.0-10.0) H Eosinophils (%) (Auto) 5.3 % (0.0-3.0) H Basophils (%) (Auto) 0.4 % (0.0-2.0) Sodium Level 139 MMOL/L (136-145) Potassium Level 5.0 MMOL/L (3.5-5.1) Chloride Level 104 MMOL/L (98-107) Carbon Dioxide Level 32 MMOL/L (21-32) Anion Gap 3 mmol/L (5-15) L Blood Urea Nitrogen 10 mg/dL (7-18) Creatinine 0.9 MG/DL (0.55-1.30) Estimat Glomerular Filtration Rate > 60 mL/min (>60) Glucose Level 92 MG/DL (74-106) Calcium Level 8.6 MG/DL (8.5-10.1) Current Medications Medications (Trade) Dose Ordered Sig/Ricardo Route PRN Reason Start Time Stop Time Status Last Admin Dose Admin Acetaminophen (Tylenol) 650 mg Q4H PRN GT MILD/TEMP 06/18/19 20:44 07/15/19 20:43 Albuterol/ Ipratropium (Albuterol/ Ipratropium) 3 ml Q4H PRN HHN Shortness of Breath 06/18/19 22:45 06/20/19 14:44 Barium Sulfate (Varibar Honey) 250 ml NOW PRN MC RAD 06/19/19 16:45 06/21/19 16:32 Barium Sulfate (Varibar [place]) 240 ml NOW PRN MC RAD 06/19/19 16:45 06/21/19 16:32 Barium Sulfate (Varibar Pudding) 230 ml NOW PRN MC RAD 06/19/19 16:45 06/21/19 16:32 Cefepime HCl 1 gm/ Dextrose 55 ml @ 110 mls/hr Q12H IVPB 06/19/19 11:00 06/26/19 10:59 06/19/19 11:55 Donepezil HCl (Aricept) 5 mg DAILY ORAL 06/19/19 09:00 07/15/19 08:59 06/19/19 09:40 Gabapentin (Neurontin) 300 mg THREE TIMES A DAY ORAL 06/19/19 09:00 07/15/19 08:59 06/19/19 09:40 Nitroglycerin (Ntg) 0.4 mg Q5M PRN SL Prn Chest Pain 06/18/19 20:35 07/15/19 08:29 Ondansetron HCl (Zofran) 4 mg Q6H PRN IVP Nausea & Vomiting 06/18/19 20:45 07/15/19 20:44 Polyethylene Glycol (Miralax) 17 gm DAILYPRN PRN ORAL Constipation 06/19/19 14:30 07/17/19 14:29 Promethazine HCl/ Codeine (Phenergan with Codeine) 5 ml Q4H PRN ORAL For Cough 06/18/19 21:45 07/15/19 17:43 Quetiapine Fumarate (SEROqueL) 100 mg TWICE A DAY ORAL 06/19/19 09:00 07/30/19 08:59 06/19/19 09:40 Rivaroxaban (Xarelto) 20 mg DAILY ORAL 06/19/19 09:00 09/13/19 08:59 06/19/19 09:41 Temazepam (Restoril) 15 mg HSPRN PRN ORAL Insomnia 06/18/19 21:00 06/25/19 20:59 Vancomycin HCl (Vanco rx to dose) 1 ea DAILY PRN MISC Per rx protocol 06/19/19 09:00 07/15/19 08:29 Vancomycin HCl 750 mg/Dextrose 275 ml @ 183.333 mls/hr Q24H IVPB 06/19/19 18:00 06/21/19 17:59 Michael Tesfaye MD Jun 19, 2019 12:07
[2019-06-19] MEDS ORDERED: Miralax 17gm pkt ORAL PRN ×2 (14:30)
[2019-06-19] MEDS ORDERED: Cefepime HCl 1 GM in D5W 55 ML IV SCH ×4 (15:00)
--- NOTE | 2019-06-19 15:06 | Surgery Progress Note ---
Surgery Progress Note Subjective Symptoms: improved, tolerating diet, passing flatus Objective Last 24 Hour Vital Signs Date Time Temp Pulse Resp B/P (MAP) Pulse Ox O2 Delivery O2 Flow Rate FiO2 06/19/19 12:00 97.7 70 19 100/53 (69) 96 06/19/19 09:00 Nasal Cannula 2.0 06/19/19 04:00 97.9 98 20 99/49 (66) 95 06/18/19 23:53 97.9 74 20 109/54 (72) 96 06/18/19 21:00 Nasal Cannula 2.0 06/18/19 19:47 98.4 93 20 93/46 (62) 95 06/18/19 16:00 97.8 84 20 111/43 (65) 94 06/18/19 16:00 90 I&O Intake and Output 06/18/19 06/19/19 19:00 07:00 Intake Total 50 ml 600 ml Output Total 900 ml Balance -850 ml 600 ml Intake Free Water 200 ml Tube Feeding 50 ml 400 ml Output Urine Total 900 ml # Voids 2 Dressing: saturated Wound: clean Cardiovascular: RSR Respiratory: clear Abdomen: soft, non-tender, present bowel sounds Extremities: no cyanosis Laboratory Tests Test 06/18/19 17:15 06/19/19 05:15 Vancomycin Level Trough 14.7 ug/mL (5.0-12.0) H White Blood Count 9.6 K/UL (4.8-10.8) Red Blood Count 4.03 M/UL (4.70-6.10) L Hemoglobin 12.5 G/DL (14.2-18.0) L Hematocrit 36.7 % (42.0-52.0) L Mean Corpuscular Volume 91 FL (80-99) Mean Corpuscular Hemoglobin 31.0 PG (27.0-31.0) Mean Corpuscular Hemoglobin Concent 34.1 G/DL (32.0-36.0) Red Cell Distribution Width 13.3 % (11.6-14.8) Platelet Count 135 K/UL (150-450) L Mean Platelet Volume 5.9 FL (6.5-10.1) L Neutrophils (%) (Auto) 56.3 % (45.0-75.0) Lymphocytes (%) (Auto) 26.4 % (20.0-45.0) Monocytes (%) (Auto) 11.6 % (1.0-10.0) H Eosinophils (%) (Auto) 5.3 % (0.0-3.0) H Basophils (%) (Auto) 0.4 % (0.0-2.0) Sodium Level 139 MMOL/L (136-145) Potassium Level 5.0 MMOL/L (3.5-5.1) Chloride Level 104 MMOL/L (98-107) Carbon Dioxide Level 32 MMOL/L (21-32) Anion Gap 3 mmol/L (5-15) L Blood Urea Nitrogen 10 mg/dL (7-18) Creatinine 0.9 MG/DL (0.55-1.30) Estimat Glomerular Filtration Rate > 60 mL/min (>60) Glucose Level 92 MG/DL (74-106) Calcium Level 8.6 MG/DL (8.5-10.1) Plan Problems: (1) Sepsis Assessment & Plan: This is a 68-year-old male that presented with fevers, leukocytosis, lactic acidosis. Patient septic and requiring work-up care and management. COPD ID evaluation. IV antibiotics per infectious disease. IV fluid hydration. Lactic improving with hydration. Patient awake alert responsive otherwise comfortable but does have wounds that are very tender. Wounds unlikely etiology of infection. Pending microbiology. Labs reviewed. improved covid neg d/c planning (2) DM (diabetes mellitus) (3) Feeding by G-tube Assessment & Plan: DAILY ESTIMATED NEEDS: Needs based on Pulmonary, sepsis, wounds 69kg 25-30 kcals/kg 8916-5776 total kcals 1.25-2 g protein/kg 86-138 g total protein 25-30 mL/kg 6206-9664 total fluid mLs NUTRITION DIAGNOSIS: *Swallowing difficulty R/T dysphagia, confusion as evidenced by s/p PEG placement, on oral diet at SNF, now w/ recs for GT feeds pending VSS. CURRENT DIET:NPO PO DIET RECOMMENDATIONS: IF ORAL GRAT INDICATED: rec liberalized REGULAR/ texture per [employer] ENTERAL NUTRITION RECOMMENDATIONS: Glucerna 1.5 @ 50ml/hr x24 hrs to provide 1200ml, 1800 kcal, 99g pro, 911ml free H2o As medically able, rec start GT feeds to meet est nutritional needs - Initiate Glucerna 1.5 @ 20ml/hr x 6 hrs - Advance 10ml q 4-6 hrs as tolerated to goal rate. - HOB over 30 degrees/ water flush per MD ADDITIONAL RECOMMENDATIONS: 1) Per SNF: HT 71 inches, rec calibrated bed scale wts for eval 2) Updated HgA1C for eval 3) Wound care: w/ diet, rec DANIELA BID (via GT or oral) + Vit C 250mg BID F/up w/ WC eval 4) [employer] re-eval for possible oral grat w/ GT feeds . (4) LILIAM (acute kidney injury) (5) Suspected COVID-19 virus infection (6) Thrombocytopenia (7) DVT (deep venous thrombosis) (8) HCAP (healthcare-associated pneumonia) (9) Acute DVT (deep venous thrombosis) (10) Wound, open Assessment & Plan: Pt presented on admission with two wounds of unknown etiology, Pressure injury sacrum and both heels. Generalized rash which is pink and pimple-like in appearance, scaled rash noted to both distal lower extremities and both feet. 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 (L)1cm x (W)1.8cm x (D)1.2cm. Yellow slough noted along hartmann of wound. Edges and periwound erythematous. NO elevation in skin temp or induration periwound. Small amt haemopurulent exudate noted. Full thickness stage 4 wound noted to upper back(L)0.7cm x (W)1.9cm, tunneled depth 0.9cm. Mixed slough and erythema noted along hartmann of wound.Small amt seropurulent exudate. No odor noted. Marginal erythema without induration or elevation in skin temp periwound. Non-blanching erythema without induration sacrum. Historical scars noted to R and L ischial tuberosities. Unstageable pressure injury noted to L heel(L)1.5cm x (W)2.5cm. 100% dry eschar noted at base of heel. Edges adherent,erythematous and dry. Periwound heel is boggy with non-blanching erythema. R heel is boggy with non-blanchable erythema. Non-blanchable erythema without induration or fluctuance medial/lateral L foot.( L)1.5cm x (W)1.5cm. Non-blanchable erythema without induration or fluctuance noted to distal/ lateral L foot. Non-blanchable erythema without fluctuance or induration R lateral Malleolus(L) 2cm x (W)1.5cm. Tx.Plan: Cleanse wound upper back with Saline. Loosely pack with Therahoney impregnated kerlix . Apply Cavilon Skin Barrier periwound. Cover with Optifoam drsg Daily and prn. Cleanse wound L Brachial with Saline. Loosely pack with Therahoney impregnated Kerlix. Apply Cavilon Skin Barrier periwound. Cover with Optifoam drsg Daily and prn. Apply Moisture Barrier Paste to sacrum. Cover with Optifoam drsg. Change every 3 days and prn. Apply Betadine to L heel. Cover with Optifoam drsg. Change every 3 days and prn Apply Cavilon Skin Barrier to R heel, R malleolus. Cover each site with Optifoam drsg. Change every 7 days and prn. Apply Cavilon Skin Barrier to medial/lateral, and Distal/Lateral L foot. Cover with Optifoam drsg. Change every 7 days and prn. Reposition at least every 2hours or as tolerated. Off-load heels with pillow. APM/JELLY Mattress overlay. (11) Chronic kidney disease (12) Malignant neoplasm of right kidney (13) PVD (peripheral vascular disease) (14) Schizophrenia (15) Acute respiratory failure (16) Septic shock (17) Systolic heart failure (18) Renal failure (ARF), acute on chronic (19) Bradyarrhythmia (20) Dysphagia (21) Encounter for PEG (percutaneous endoscopic gastrostomy) (22) cardiomyopathy with EF of 35% Mauricio Anne Jun 19, 2019 15:06
[2019-06-19 16:00] VITALS: BP 109/55
[2019-06-19] MEDS ORDERED: Varibar Nectar 240ml MC PRN ×2 (16:45)
[2019-06-19] MEDS ORDERED: Varibar Honey 250ml MC PRN ×2 (16:45)
[2019-06-19] MEDS ORDERED: Varibar Pudding 230ml MC PRN ×2 (16:45)
[2019-06-19] MEDS ORDERED: Vancomycin 750 MG in D5W 275 ML IVPB SCH (18:00)
[2019-06-19 20:19] VITALS: BP 100/55
[2019-06-19 23:26] VITALS: BP 111/56
[2019-06-20 03:23] VITALS: BP 139/73
[2019-06-20 05:46] LABS: ANION GAP -1 mmol/L (5-15); BASOPHILS % (AUTO) 0.3 % (0.0-2.0); BLOOD UREA NITROGEN 14 mg/dL (7-18); CALCIUM 8.8 MG/DL (8.5-10.1); CARBON DIOXIDE 32 MMOL/L (21-32); CHLORIDE 101 MMOL/L (98-107); EOSINOPHILS % (AUTO) 4.6 % (0.0-3.0); HEMOGLOBIN 12.6 G/DL (14.2-18.0); LYMPHOCYTES % (AUTO) 24.9 % (20.0-45.0); MEAN CORPUSCULAR VOLUME 90 FL (80-99); MONOCYTES % (AUTO) 12.6 % (1.0-10.0); NEUTROPHILS % (AUTO) 57.6 % (45.0-75.0); PLATELET COUNT 136 K/UL (150-450); POTASSIUM 4.8 MMOL/L (3.5-5.1); RED BLOOD COUNT 4.01 M/UL (4.70-6.10); RED CELL DISTRIBUTION WIDTH 13.5 % (11.6-14.8); SODIUM 132 MMOL/L (136-145); WHITE BLOOD COUNT 9.1 K/UL (4.8-10.8)
--- NOTE | 2019-06-20 07:46 | Pulmonology Progress Note ---
Assessment/Plan Problems: (1) HCAP (healthcare-associated pneumonia) (2) Suspected COVID-19 virus infection (3) Systolic heart failure (4) DM (diabetes mellitus) (5) cardiomyopathy with EF of 35% (6) Schizophrenia Assessment/Plan afebrile now wbc decreasing, normal now respiratory isolation is off now respiratory treatment titrate fio2 to sat of 92% tao culture iv abx dc iv fluids med/surg First Covid is negative, [facility] asking for a second one psych to see dvt prophylaxis. Subjective ROS Limited/Unobtainable: No Constitutional: Reports: no symptoms HEENT: Repors: no symptoms Allergies: Coded Allergies: No Known Allergies (Unverified , 01/24/19) Objective Last 24 Hour Vital Signs Date Time Temp Pulse Resp B/P (MAP) Pulse Ox O2 Delivery O2 Flow Rate FiO2 06/20/19 03:23 98.4 100 20 139/73 (95) 92 06/19/19 23:26 97.0 88 20 111/56 (74) 92 06/19/19 21:53 Nasal Cannula 2.0 06/19/19 20:19 97.7 100 19 100/55 (70) 92 06/19/19 16:00 98.1 103 19 109/55 (73) 97 06/19/19 12:00 97.7 70 19 100/53 (69) 96 06/19/19 09:00 Nasal Cannula 2.0 Intake and Output 06/19/19 06/20/19 19:00 07:00 Intake Total 935 ml 605 ml Output Total 800 ml Balance 935 ml -195 ml Intake Free Water 230 ml 50 ml IV Total 55 ml 55 ml Tube Feeding 650 ml 500 ml Output Urine Total 800 ml # Voids 3 Objective General Appearance: WD/WN HEENT: normocephalic Respiratory/Chest: chest wall non-tender, lungs clear Cardiovascular: normal peripheral pulses, normal rate, no gallop/murmur Abdomen: soft, non tender, non distended Extremities: no clubbing Skin: no rash, no lesions Laboratory Tests 06/20/19 05:10: White Blood Count 9.1, Red Blood Count 4.01L, Hemoglobin 12.6L, Hematocrit 36.0L , Mean Corpuscular Volume 90, Mean Corpuscular Hemoglobin 31.5H, Mean Corpuscular Hemoglobin Concent 35.1, Red Cell Distribution Width 13.5, Platelet Count 136L, Mean Platelet Volume 5.6L, Neutrophils (%) (Auto) 57.6, Lymphocytes (%) (Auto) 24.9, Monocytes (%) (Auto) 12.6H, Eosinophils (%) (Auto) 4.6H, Basophils (%) (Auto) 0.3, Sodium Level 132L, Potassium Level 4.8, Chloride Level 101, Carbon Dioxide Level 32, Anion Gap -1L, Blood Urea Nitrogen 14, Creatinine 1.0, Estimat Glomerular Filtration Rate > 60, Glucose Level 111H, Calcium Level 8.8 Current Medications Medications (Trade) Dose Ordered Sig/Ricardo Route PRN Reason Start Time Stop Time Status Last Admin Dose Admin Acetaminophen (Tylenol) 650 mg Q4H PRN GT MILD/TEMP 06/18/19 20:44 07/15/19 20:43 Albuterol/ Ipratropium (Albuterol/ Ipratropium) 3 ml Q4H PRN HHN Shortness of Breath 06/18/19 22:45 06/20/19 14:44 Barium Sulfate (Varibar Honey) 250 ml NOW PRN MC RAD 06/19/19 16:45 06/21/19 16:32 Barium Sulfate (Varibar [place]) 240 ml NOW PRN MC RAD 06/19/19 16:45 06/21/19 16:32 Barium Sulfate (Varibar Pudding) 230 ml NOW PRN MC RAD 06/19/19 16:45 06/21/19 16:32 Cefepime HCl 1 gm/ Dextrose 55 ml @ 110 mls/hr Q12H IVPB 06/19/19 11:00 06/26/19 10:59 06/19/19 23:23 Donepezil HCl (Aricept) 5 mg DAILY ORAL 06/19/19 09:00 07/15/19 08:59 06/19/19 09:40 Gabapentin (Neurontin) 300 mg THREE TIMES A DAY ORAL 06/19/19 09:00 07/15/19 08:59 06/19/19 18:15 Nitroglycerin (Ntg) 0.4 mg Q5M PRN SL Prn Chest Pain 06/18/19 20:35 07/15/19 08:29 Ondansetron HCl (Zofran) 4 mg Q6H PRN IVP Nausea & Vomiting 06/18/19 20:45 07/15/19 20:44 Polyethylene Glycol (Miralax) 17 gm DAILYPRN PRN ORAL Constipation 06/19/19 14:30 07/17/19 14:29 Promethazine HCl/ Codeine (Phenergan with Codeine) 5 ml Q4H PRN ORAL For Cough 06/18/19 21:45 07/15/19 17:43 Quetiapine Fumarate (SEROqueL) 100 mg TWICE A DAY ORAL 06/19/19 09:00 07/30/19 08:59 06/19/19 18:15 Rivaroxaban (Xarelto) 20 mg DAILY ORAL 06/19/19 09:00 09/13/19 08:59 06/19/19 09:41 Temazepam (Restoril) 15 mg HSPRN PRN ORAL Insomnia 06/18/19 21:00 06/25/19 20:59 Vancomycin HCl (Vanco rx to dose) 1 ea DAILY PRN MISC Per rx protocol 06/19/19 09:00 07/15/19 08:29 Vancomycin HCl 750 mg/Dextrose 275 ml @ 183.333 mls/hr Q24H IVPB 06/19/19 18:00 06/21/19 17:59 06/19/19 18:16 Ron Anthony MD Jun 20, 2019 07:46
--- NOTE | 2019-06-20 09:09 | General Progress Note ---
Assessment/Plan Problem List: (1) DM (diabetes mellitus) ICD Codes: E11.9 - Type 2 diabetes mellitus without complications SNOMED: 61984283 (2) Feeding by G-tube ICD Codes: Z93.1 - Gastrostomy status SNOMED: 999870420, 794445852, 933663176 (3) LILIAM (acute kidney injury) ICD Codes: N17.9 - Acute kidney failure, unspecified SNOMED: 09879869, 0227802 (4) Sepsis ICD Codes: A41.9 - Sepsis, unspecified organism SNOMED: 03180009, 534288853 Qualifiers: Qualified Codes: A41.9 - Sepsis, unspecified organism; R65.20 - Severe sepsis without septic shock; N17.9 - Acute kidney failure, unspecified (5) PVD (peripheral vascular disease) ICD Codes: I73.9 - Peripheral vascular disease, unspecified SNOMED: 916496127 (6) Encounter for PEG (percutaneous endoscopic gastrostomy) ICD Codes: Z43.1 - Encounter for attention to gastrostomy SNOMED: 563838210, 732594179 (7) Suspected COVID-19 virus infection ICD Codes: R68.89 - Other general symptoms and signs SNOMED: 471453080 Status: unchanged Assessment/Plan: o2 pulm tx abx pt diet cbc bmp am Subjective Constitutional: Reports: weakness Allergies: Coded Allergies: No Known Allergies (Unverified , 01/24/19) All Systems: reviewed and negative except above Subjective o2nc sleep Objective Last 24 Hour Vital Signs Date Time Temp Pulse Resp B/P (MAP) Pulse Ox O2 Delivery O2 Flow Rate FiO2 06/20/19 03:23 98.4 100 20 139/73 (95) 92 06/19/19 23:26 97.0 88 20 111/56 (74) 92 06/19/19 21:53 Nasal Cannula 2.0 06/19/19 20:19 97.7 100 19 100/55 (70) 92 06/19/19 16:00 98.1 103 19 109/55 (73) 97 06/19/19 12:00 97.7 70 19 100/53 (69) 96 Intake and Output 06/19/19 06/20/19 19:00 07:00 Intake Total 935 ml 605 ml Output Total 800 ml Balance 935 ml -195 ml Intake Free Water 230 ml 50 ml IV Total 55 ml 55 ml Tube Feeding 650 ml 500 ml Output Urine Total 800 ml # Voids 3 Laboratory Tests 06/20/19 05:10: White Blood Count 9.1, Red Blood Count 4.01L, Hemoglobin 12.6L, Hematocrit 36.0L , Mean Corpuscular Volume 90, Mean Corpuscular Hemoglobin 31.5H, Mean Corpuscular Hemoglobin Concent 35.1, Red Cell Distribution Width 13.5, Platelet Count 136L, Mean Platelet Volume 5.6L, Neutrophils (%) (Auto) 57.6, Lymphocytes (%) (Auto) 24.9, Monocytes (%) (Auto) 12.6H, Eosinophils (%) (Auto) 4.6H, Basophils (%) (Auto) 0.3, Sodium Level 132L, Potassium Level 4.8, Chloride Level 101, Carbon Dioxide Level 32, Anion Gap -1L, Blood Urea Nitrogen 14, Creatinine 1.0, Estimat Glomerular Filtration Rate > 60, Glucose Level 111H, Calcium Level 8.8 Height (Feet): 5 Height (Inches): 9.00 Weight (Pounds): 150 General Appearance: lethargic EENT: normal ENT inspection Neck: normal alignment Cardiovascular: normal rate, regular rhythm Respiratory/Chest: no accessory muscle use Extremities: normal inspection Skin: normal pigmentation, warm/dry Corey Short DO Jun 20, 2019 09:09
[2019-06-20 10:00] VITALS: BP 105/78
[2019-06-20] MEDS: Cefepime HCl 1 GM in D5W 55 ML IVPB SCH ×2 (11:05→22:35)
[2019-06-20] MEDS: Donepezil 5mg Tab ORAL SCH (11:05)
[2019-06-20] MEDS: Xarelto 10mg tab ORAL SCH (11:06)
[2019-06-20 12:00] VITALS: BP 101/76
[2019-06-20] MEDS ORDERED: Acetaminophen 650mg/20.3ml GT PRN (15:48)
[2019-06-20] MEDS ORDERED: Nitroglycerin Subl 0.4mg tab SL PRN (15:49)
[2019-06-20] MEDS ORDERED: Miralax 17gm pkt ORAL PRN (15:49)
[2019-06-20] MEDS ORDERED: Promethazine/Codeine 5ml UD ORAL PRN (15:50)
[2019-06-20 16:00] VITALS: BP 137/75
[2019-06-20] MEDS ORDERED: Varibar Honey 250ml MC PRN (16:45)
[2019-06-20] MEDS ORDERED: Varibar Nectar 240ml MC PRN (16:45)
[2019-06-20] MEDS ORDERED: Varibar Pudding 230ml MC PRN (16:45)
[2019-06-20] MEDS: Vancomycin 750 MG in D5W 275 ML IVPB SCH (18:00)
--- NOTE | 2019-06-20 18:17 | Surgery Progress Note ---
Surgery Progress Note Subjective Additional Comments improved no n/v/f/c first covid negative pending repeat Objective Last 24 Hour Vital Signs Date Time Temp Pulse Resp B/P (MAP) Pulse Ox O2 Delivery O2 Flow Rate FiO2 06/20/19 12:00 102.0 101 20 101/76 (84) 90 06/20/19 10:00 99.1 103 20 105/78 (87) 91 06/20/19 09:00 Nasal Cannula 2.0 06/20/19 03:23 98.4 100 20 139/73 (95) 92 06/19/19 23:26 97.0 88 20 111/56 (74) 92 06/19/19 21:53 Nasal Cannula 2.0 06/19/19 20:19 97.7 100 19 100/55 (70) 92 I&O Intake and Output 06/19/19 06/20/19 19:00 07:00 Intake Total 935 ml 655 ml Output Total 800 ml Balance 935 ml -145 ml Intake Free Water 230 ml 50 ml IV Total 55 ml 55 ml Tube Feeding 650 ml 550 ml Output Urine Total 800 ml # Voids 3 Dressing: other Wound: other Drains: other Cardiovascular: RSR Respiratory: decreased breath sounds Abdomen: soft, non-tender, present bowel sounds Extremities: no cyanosis Laboratory Tests Test 06/20/19 05:10 White Blood Count 9.1 K/UL (4.8-10.8) Red Blood Count 4.01 M/UL (4.70-6.10) L Hemoglobin 12.6 G/DL (14.2-18.0) L Hematocrit 36.0 % (42.0-52.0) L Mean Corpuscular Volume 90 FL (80-99) Mean Corpuscular Hemoglobin 31.5 PG (27.0-31.0) H Mean Corpuscular Hemoglobin Concent 35.1 G/DL (32.0-36.0) Red Cell Distribution Width 13.5 % (11.6-14.8) Platelet Count 136 K/UL (150-450) L Mean Platelet Volume 5.6 FL (6.5-10.1) L Neutrophils (%) (Auto) 57.6 % (45.0-75.0) Lymphocytes (%) (Auto) 24.9 % (20.0-45.0) Monocytes (%) (Auto) 12.6 % (1.0-10.0) H Eosinophils (%) (Auto) 4.6 % (0.0-3.0) H Basophils (%) (Auto) 0.3 % (0.0-2.0) Sodium Level 132 MMOL/L (136-145) L Potassium Level 4.8 MMOL/L (3.5-5.1) Chloride Level 101 MMOL/L (98-107) Carbon Dioxide Level 32 MMOL/L (21-32) Anion Gap -1 mmol/L (5-15) L Blood Urea Nitrogen 14 mg/dL (7-18) Creatinine 1.0 MG/DL (0.55-1.30) Estimat Glomerular Filtration Rate > 60 mL/min (>60) Glucose Level 111 MG/DL (74-106) H Calcium Level 8.8 MG/DL (8.5-10.1) Plan Problems: (1) Sepsis Assessment & Plan: This is a 68-year-old male that presented with fevers, leukocytosis, lactic acidosis. Patient septic and requiring work-up care and management. COPD ID evaluation. IV antibiotics per infectious disease. IV fluid hydration. Lactic improving with hydration. Patient awake alert responsive otherwise comfortable but does have wounds that are very tender. Wounds unlikely etiology of infection. Pending microbiology. Labs reviewed. improved covid neg d/c planning (2) DM (diabetes mellitus) (3) Feeding by G-tube Assessment & Plan: DAILY ESTIMATED NEEDS: Needs based on Pulmonary, sepsis, wounds 69kg 25-30 kcals/kg 4455-1246 total kcals 1.25-2 g protein/kg 86-138 g total protein 25-30 mL/kg 6321-3788 total fluid mLs NUTRITION DIAGNOSIS: *Swallowing difficulty R/T dysphagia, confusion as evidenced by s/p PEG placement, on oral diet at [facility], now w/ recs for GT feeds pending VSS. 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 (4) LILIAM (acute kidney injury) (5) Suspected COVID-19 virus infection (6) Thrombocytopenia (7) DVT (deep venous thrombosis) (8) HCAP (healthcare-associated pneumonia) (9) Acute DVT (deep venous thrombosis) (10) Wound, open Assessment & Plan: Pt presented on admission with two wounds of unknown etiology, Pressure injury sacrum and both heels. Generalized rash which is pink and pimple-like in appearance, scaled rash noted to both distal lower extremities and both feet. 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 (L)1cm x (W)1.8cm x (D)1.2cm. Yellow slough noted along hartmann of wound. Edges and periwound erythematous. NO elevation in skin temp or induration periwound. Small amt haemopurulent exudate noted. Full thickness stage 4 wound noted to upper back(L)0.7cm x (W)1.9cm, tunneled depth 0.9cm. Mixed slough and erythema noted along hartmann of wound.Small amt seropurulent exudate. No odor noted. Marginal erythema without induration or elevation in skin temp periwound. Non-blanching erythema without induration sacrum. Historical scars noted to R and L ischial tuberosities. Unstageable pressure injury noted to L heel(L)1.5cm x (W)2.5cm. 100% dry eschar noted at base of heel. Edges adherent,erythematous and dry. Periwound heel is boggy with non-blanching erythema. R heel is boggy with non-blanchable erythema. Non-blanchable erythema without induration or fluctuance medial/lateral L foot.( L)1.5cm x (W)1.5cm. Non-blanchable erythema without induration or fluctuance noted to distal/ lateral L foot. Non-blanchable erythema without fluctuance or induration R lateral Malleolus(L) 2cm x (W)1.5cm. Tx.Plan: Cleanse wound upper back with Saline. Loosely pack with Therahoney impregnated kerlix . Apply Cavilon Skin Barrier periwound. Cover with Optifoam drsg Daily and prn. Cleanse wound L Brachial with Saline. Loosely pack with Therahoney impregnated Kerlix. Apply Cavilon Skin Barrier periwound. Cover with Optifoam drsg Daily and prn. Apply Moisture Barrier Paste to sacrum. Cover with Optifoam drsg. Change every 3 days and prn. Apply Betadine to L heel. Cover with Optifoam drsg. Change every 3 days and prn Apply Cavilon Skin Barrier to R heel, R malleolus. Cover each site with Optifoam drsg. Change every 7 days and prn. Apply Cavilon Skin Barrier to medial/lateral, and Distal/Lateral L foot. Cover with Optifoam drsg. Change every 7 days and prn. Reposition at least every 2hours or as tolerated. Off-load heels with pillow. APM/JELLY Mattress overlay. (11) Chronic kidney disease (12) Malignant neoplasm of right kidney (13) PVD (peripheral vascular disease) (14) Schizophrenia (15) Acute respiratory failure (16) Septic shock (17) Systolic heart failure (18) Renal failure (ARF), acute on chronic (19) Bradyarrhythmia (20) Dysphagia (21) Encounter for PEG (percutaneous endoscopic gastrostomy) (22) cardiomyopathy with EF of 35% Mauricio Anne Jun 20, 2019 18:17
[2019-06-20 20:00] VITALS: BP 127/82
[2019-06-21] VITALS (7 sets, daily range): BP systolic 105–136; BP diastolic 55–83
[2019-06-21 05:46] LABS: BASOPHILS % (AUTO) 0.3 % (0.0-2.0); EOSINOPHILS % (AUTO) 2.6 % (0.0-3.0); HEMATOCRIT 35.8 % (42.0-52.0); HEMOGLOBIN 12.4 G/DL (14.2-18.0); LYMPHOCYTES % (AUTO) 27.2 % (20.0-45.0); MEAN CORPUSCULAR VOLUME 90 FL (80-99); MONOCYTES % (AUTO) 16.6 % (1.0-10.0); NEUTROPHILS % (AUTO) 53.3 % (45.0-75.0); PLATELET COUNT 141 K/UL (150-450); RED CELL DISTRIBUTION WIDTH 13.2 % (11.6-14.8); WHITE BLOOD COUNT 10.9 K/UL (4.8-10.8)
[2019-06-21 06:05] LABS: ANION GAP 7 mmol/L (5-15); BLOOD UREA NITROGEN 16 mg/dL (7-18); CALCIUM 8.6 MG/DL (8.5-10.1); CARBON DIOXIDE 28 MMOL/L (21-32); CHLORIDE 99 MMOL/L (98-107); CREATININE 1.1 MG/DL (0.55-1.30); POTASSIUM 4.7 MMOL/L (3.5-5.1); SODIUM 134 MMOL/L (136-145)
[2019-06-21] MEDS: Xarelto 10mg tab ORAL SCH (08:39)
[2019-06-21] MEDS: Donepezil 5mg Tab ORAL SCH (08:39)
--- NOTE | 2019-06-21 09:20 | General Progress Note ---
Assessment/Plan Problem List: (1) DM (diabetes mellitus) ICD Codes: E11.9 - Type 2 diabetes mellitus without complications SNOMED: 22862620 (2) Feeding by G-tube ICD Codes: Z93.1 - Gastrostomy status SNOMED: 877254725, 475321242, 338440553 (3) LILIAM (acute kidney injury) ICD Codes: N17.9 - Acute kidney failure, unspecified SNOMED: 68084557, 3943588 (4) Sepsis ICD Codes: A41.9 - Sepsis, unspecified organism SNOMED: 73339770, 373668025 Qualifiers: Qualified Codes: A41.9 - Sepsis, unspecified organism; R65.20 - Severe sepsis without septic shock; N17.9 - Acute kidney failure, unspecified (5) PVD (peripheral vascular disease) ICD Codes: I73.9 - Peripheral vascular disease, unspecified SNOMED: 681683314 (6) Encounter for PEG (percutaneous endoscopic gastrostomy) ICD Codes: Z43.1 - Encounter for attention to gastrostomy SNOMED: 885838363, 102768583 (7) Suspected COVID-19 virus infection ICD Codes: R68.89 - Other general symptoms and signs SNOMED: 041506543 Status: unchanged Assessment/Plan: o2 pulm tx abx pt diet cbc bmp am Subjective Constitutional: Reports: weakness Allergies: Coded Allergies: No Known Allergies (Unverified , 01/24/19) Subjective o2nc sleep Objective Last 24 Hour Vital Signs Date Time Temp Pulse Resp B/P (MAP) Pulse Ox O2 Delivery O2 Flow Rate FiO2 06/21/19 08:00 99.9 91 21 120/55 (76) 95 06/21/19 04:00 Nasal Cannula 2.0 06/21/19 04:00 99.6 102 22 106/60 (75) 97 06/21/19 03:37 103 06/21/19 00:00 Nasal Cannula 2.0 06/21/19 00:00 99.4 103 22 122/66 (84) 96 06/20/19 23:30 102 06/20/19 20:00 99.0 107 22 127/82 (97) 95 06/20/19 20:00 Nasal Cannula 2.0 06/20/19 16:00 98.4 96 20 137/75 (95) 96 06/20/19 12:00 102.0 101 20 101/76 (84) 90 06/20/19 10:00 99.1 103 20 105/78 (87) 91 Intake and Output 06/20/19 06/21/19 19:00 07:00 Intake Total 783.333 ml 896.667 ml Output Total 450 ml 700 ml Balance 333.333 ml 196.667 ml Intake Free Water 150 ml 200 ml IV Total 183.333 ml 146.667 ml Tube Feeding 450 ml 550 ml Output Urine Total 450 ml 700 ml Laboratory Tests 06/21/19 03:40: White Blood Count 10.9H, Red Blood Count 4.00L, Hemoglobin 12.4L, Hematocrit 35.8L, Mean Corpuscular Volume 90, Mean Corpuscular Hemoglobin 30.9, Mean Corpuscular Hemoglobin Concent 34.5, Red Cell Distribution Width 13.2, Platelet Count 141L, Mean Platelet Volume 5.8L, Neutrophils (%) (Auto) 53.3, Lymphocytes (%) (Auto) 27.2, Monocytes (%) (Auto) 16.6H, Eosinophils (%) (Auto) 2.6, Basophils (%) (Auto) 0.3, Sodium Level 134L, Potassium Level 4.7, Chloride Level 99, Carbon Dioxide Level 28, Anion Gap 7, Blood Urea Nitrogen 16, Creatinine 1.1, Estimat Glomerular Filtration Rate > 60, Glucose Level 106, Calcium Level 8.6 Height (Feet): 5 Height (Inches): 9.00 Weight (Pounds): 150 General Appearance: lethargic EENT: normal ENT inspection Neck: normal alignment Cardiovascular: normal rate, regular rhythm Respiratory/Chest: no accessory muscle use Extremities: normal inspection Skin: normal pigmentation Corey Short DO Jun 21, 2019 09:20
--- NOTE | 2019-06-21 10:35 | Pulmonology Progress Note ---
Assessment/Plan Problems: (1) 2019 novel coronavirus disease (COVID-19) (2) HCAP (healthcare-associated pneumonia) (3) Systolic heart failure (4) DM (diabetes mellitus) (5) cardiomyopathy with EF of 35% (6) Schizophrenia Assessment/Plan afebrile now wbc decreasing, normal now second Covid-19 came back positive respiratory isolation respiratory treatment titrate fio2 to sat of 92% tao culture iv abx dc iv fluids med/surg psych to see dvt prophylaxis. Subjective ROS Limited/Unobtainable: No Constitutional: Reports: no symptoms HEENT: Repors: no symptoms Allergies: Coded Allergies: No Known Allergies (Unverified , 01/24/19) Objective Last 24 Hour Vital Signs Date Time Temp Pulse Resp B/P (MAP) Pulse Ox O2 Delivery O2 Flow Rate FiO2 06/21/19 10:00 102 06/21/19 08:00 99.9 91 21 120/55 (76) 95 06/21/19 08:00 Nasal Cannula 2.0 06/21/19 04:00 Nasal Cannula 2.0 06/21/19 04:00 99.6 102 22 106/60 (75) 97 06/21/19 03:37 103 06/21/19 00:00 Nasal Cannula 2.0 06/21/19 00:00 99.4 103 22 122/66 (84) 96 06/20/19 23:30 102 06/20/19 20:00 99.0 107 22 127/82 (97) 95 06/20/19 20:00 Nasal Cannula 2.0 06/20/19 16:00 98.4 96 20 137/75 (95) 96 06/20/19 12:00 102.0 101 20 101/76 (84) 90 Intake and Output 06/20/19 06/21/19 19:00 07:00 Intake Total 783.333 ml 896.667 ml Output Total 450 ml 700 ml Balance 333.333 ml 196.667 ml Intake Free Water 150 ml 200 ml IV Total 183.333 ml 146.667 ml Tube Feeding 450 ml 550 ml Output Urine Total 450 ml 700 ml Objective General Appearance: WD/WN HEENT: normocephalic Respiratory/Chest: chest wall non-tender, lungs clear Cardiovascular: normal peripheral pulses, normal rate, no gallop/murmur Abdomen: soft, non tender, non distended Extremities: no clubbing Skin: no rash, no lesions Microbiology Date/Time Source Procedure Growth Status 06/18/19 12:12 Nasopharynx Coronavirus COVID-19 PCR ([facility]) - Final Complete Laboratory Tests 06/21/19 03:40: White Blood Count 10.9H, Red Blood Count 4.00L, Hemoglobin 12.4L, Hematocrit 35.8L, Mean Corpuscular Volume 90, Mean Corpuscular Hemoglobin 30.9, Mean Corpuscular Hemoglobin Concent 34.5, Red Cell Distribution Width 13.2, Platelet Count 141L, Mean Platelet Volume 5.8L, Neutrophils (%) (Auto) 53.3, Lymphocytes (%) (Auto) 27.2, Monocytes (%) (Auto) 16.6H, Eosinophils (%) (Auto) 2.6, Basophils (%) (Auto) 0.3, Sodium Level 134L, Potassium Level 4.7, Chloride Level 99, Carbon Dioxide Level 28, Anion Gap 7, Blood Urea Nitrogen 16, Creatinine 1.1, Estimat Glomerular Filtration Rate > 60, Glucose Level 106, Calcium Level 8.6 Current Medications Medications (Trade) Dose Ordered Sig/Ricardo Route PRN Reason Start Time Stop Time Status Last Admin Dose Admin Acetaminophen (Tylenol) 650 mg Q4H PRN GT MILD/TEMP 06/20/19 15:48 07/15/19 15:47 Barium Sulfate (Varibar Honey) 250 ml NOW PRN MC RAD 06/20/19 16:45 06/21/19 16:32 Barium Sulfate (Varibar [place]) 240 ml NOW PRN MC RAD 06/20/19 16:45 06/21/19 16:32 Barium Sulfate (Varibar Pudding) 230 ml NOW PRN MC RAD 06/20/19 16:45 06/21/19 16:32 Cefepime HCl 1 gm/ Dextrose 55 ml @ 110 mls/hr Q12H IVPB 06/20/19 23:00 06/26/19 10:59 06/20/19 22:35 Donepezil HCl (Aricept) 5 mg DAILY ORAL 06/21/19 09:00 07/15/19 08:59 06/21/19 08:39 Gabapentin (Neurontin) 300 mg THREE TIMES A DAY ORAL 06/20/19 18:00 07/15/19 08:59 06/21/19 08:39 Nitroglycerin (Ntg) 0.4 mg Q5M PRN SL Prn Chest Pain 06/20/19 15:49 07/15/19 15:48 Ondansetron HCl (Zofran) 4 mg Q6H PRN IVP Nausea & Vomiting 06/20/19 15:49 07/15/19 15:48 Polyethylene Glycol (Miralax) 17 gm DAILYPRN PRN ORAL Constipation 06/20/19 15:49 07/20/19 15:48 Promethazine HCl/ Codeine (Phenergan with Codeine) 5 ml Q4H PRN ORAL For Cough 06/20/19 15:50 07/15/19 15:49 Quetiapine Fumarate (SEROqueL) 100 mg TWICE A DAY ORAL 06/20/19 18:00 07/30/19 08:59 06/21/19 08:39 Rivaroxaban (Xarelto) 20 mg DAILY ORAL 06/21/19 09:00 09/13/19 08:59 06/21/19 08:39 Temazepam (Restoril) 15 mg HSPRN PRN ORAL Insomnia 06/20/19 21:00 06/25/19 20:59 Vancomycin HCl (Vanco rx to dose) 1 ea DAILY PRN MISC Per rx protocol 06/21/19 09:00 07/15/19 08:29 Vancomycin HCl 750 mg/Dextrose 275 ml @ 183.333 mls/hr Q24H IVPB 06/20/19 18:00 06/21/19 23:00 06/20/19 18:00 Ron Anthony MD Jun 21, 2019 10:35
[2019-06-21] MEDS: Cefepime HCl 1 GM in D5W 55 ML IVPB SCH ×2 (12:30→23:07)
[2019-06-21] MEDS ORDERED: NS 275ml ONE (13:11)
[2019-06-21] MEDS ORDERED: Tubing IV Secondary IV ONE (13:11)
--- NOTE | 2019-06-21 14:48 | Infectious Diseases Prog Note ---
Assessment/Plan Assessment/Plan A: Fever, recurrent Leukocytosis, recurrent Sepsis, improving Elevated lactate, SP Confirmed COVID-19 PNA, on rx CXR: Right upper lobe and left perihilar mild interstitial opacities. This is nonspecific, could indicate infectious interstitial disease is, residual chronic interstitial disease, or mild pulmonary edema, among many other possibilities flu swab negative First SARS-CoV PCR negative Second SARS-CoV PCR positive Probable Scabies, sp rx r/o bacteremia unlikely UTI UA neg Multiple pressure injuries h/o MRSA pneumonia GERD DM Schizophrenia HTN [place] resident COPD Tobacco abuse Kidney cancer OA CKD Anemia PVD CHF Plan: Plaquenil #1. will avoid azithromycin since QTc 424 Cefepime and vanc # /06/14 SP Permethrin #1, repeat in one week 06/14 SP Levaquin #1 f/u bcx f/u sputum culture monitor temp and CBC monitor resp status continue isolation DW RN Subjective Allergies: Coded Allergies: No Known Allergies (Unverified , 01/24/19) Subjective fever Mild leukocytosis Objective Vital Signs Last 24 Hour Vital Signs Date Time Temp Pulse Resp B/P (MAP) Pulse Ox O2 Delivery O2 Flow Rate FiO2 06/21/19 12:00 103 06/21/19 12:00 Nasal Cannula 2.0 06/21/19 12:00 97.9 104 20 112/60 (77) 97 06/21/19 10:00 102 06/21/19 08:00 99.9 91 21 120/55 (76) 95 06/21/19 08:00 Nasal Cannula 2.0 06/21/19 04:00 Nasal Cannula 2.0 06/21/19 04:00 99.6 102 22 106/60 (75) 97 06/21/19 03:37 103 06/21/19 00:00 Nasal Cannula 2.0 06/21/19 00:00 99.4 103 22 122/66 (84) 96 06/20/19 23:30 102 06/20/19 20:00 99.0 107 22 127/82 (97) 95 06/20/19 20:00 Nasal Cannula 2.0 06/20/19 16:00 98.4 96 20 137/75 (95) 96 Height (Feet): 5 Height (Inches): 9.00 Weight (Pounds): 150 Objective Gen: NAD. normocephalic. atraumatic. well nourished. CV: S1+S2. regular. no rubs. Resp: RRR. unlabored. equal chest rise. Abd: Soft. nondistended. Laboratory Tests Test 06/21/19 03:40 White Blood Count 10.9 K/UL (4.8-10.8) H Red Blood Count 4.00 M/UL (4.70-6.10) L Hemoglobin 12.4 G/DL (14.2-18.0) L Hematocrit 35.8 % (42.0-52.0) L Mean Corpuscular Volume 90 FL (80-99) Mean Corpuscular Hemoglobin 30.9 PG (27.0-31.0) Mean Corpuscular Hemoglobin Concent 34.5 G/DL (32.0-36.0) Red Cell Distribution Width 13.2 % (11.6-14.8) Platelet Count 141 K/UL (150-450) L Mean Platelet Volume 5.8 FL (6.5-10.1) L Neutrophils (%) (Auto) 53.3 % (45.0-75.0) Lymphocytes (%) (Auto) 27.2 % (20.0-45.0) Monocytes (%) (Auto) 16.6 % (1.0-10.0) H Eosinophils (%) (Auto) 2.6 % (0.0-3.0) Basophils (%) (Auto) 0.3 % (0.0-2.0) Sodium Level 134 MMOL/L (136-145) L Potassium Level 4.7 MMOL/L (3.5-5.1) Chloride Level 99 MMOL/L (98-107) Carbon Dioxide Level 28 MMOL/L (21-32) Anion Gap 7 mmol/L (5-15) Blood Urea Nitrogen 16 mg/dL (7-18) Creatinine 1.1 MG/DL (0.55-1.30) Estimat Glomerular Filtration Rate > 60 mL/min (>60) Glucose Level 106 MG/DL (74-106) Calcium Level 8.6 MG/DL (8.5-10.1) Current Medications Medications (Trade) Dose Ordered Sig/Ricardo Route PRN Reason Start Time Stop Time Status Last Admin Dose Admin Acetaminophen (Tylenol) 650 mg Q4H PRN GT MILD/TEMP 06/20/19 15:48 07/15/19 15:47 Barium Sulfate (Varibar Honey) 250 ml NOW PRN MC RAD 06/20/19 16:45 06/21/19 16:32 Barium Sulfate (Varibar [place]) 240 ml NOW PRN MC RAD 06/20/19 16:45 06/21/19 16:32 Barium Sulfate (Varibar Pudding) 230 ml NOW PRN MC RAD 06/20/19 16:45 06/21/19 16:32 Cefepime HCl 1 gm/ Dextrose 55 ml @ 110 mls/hr Q12H IVPB 06/20/19 23:00 06/26/19 10:59 06/21/19 12:30 Donepezil HCl (Aricept) 5 mg DAILY ORAL 06/21/19 09:00 07/15/19 08:59 06/21/19 08:39 Gabapentin (Neurontin) 300 mg THREE TIMES A DAY ORAL 06/20/19 18:00 07/15/19 08:59 06/21/19 13:11 Nitroglycerin (Ntg) 0.4 mg Q5M PRN SL Prn Chest Pain 06/20/19 15:49 07/15/19 15:48 Ondansetron HCl (Zofran) 4 mg Q6H PRN IVP Nausea & Vomiting 06/20/19 15:49 07/15/19 15:48 Polyethylene Glycol (Miralax) 17 gm DAILYPRN PRN ORAL Constipation 06/20/19 15:49 07/20/19 15:48 Promethazine HCl/ Codeine (Phenergan with Codeine) 5 ml Q4H PRN ORAL For Cough 06/20/19 15:50 07/15/19 15:49 Quetiapine Fumarate (SEROqueL) 100 mg TWICE A DAY ORAL 06/20/19 18:00 07/30/19 08:59 06/21/19 08:39 Rivaroxaban (Xarelto) 20 mg DAILY ORAL 06/21/19 09:00 09/13/19 08:59 06/21/19 08:39 Temazepam (Restoril) 15 mg HSPRN PRN ORAL Insomnia 06/20/19 21:00 06/25/19 20:59 Vancomycin HCl (Vanco rx to dose) 1 ea DAILY PRN MISC Per rx protocol 06/21/19 09:00 07/15/19 08:29 Vancomycin HCl 750 mg/Dextrose 275 ml @ 183.333 mls/hr Q24H IVPB 06/20/19 18:00 06/21/19 23:00 06/20/19 18:00 Pili Lenz MD Jun 21, 2019 14:48
--- NOTE | 2019-06-21 17:27 | Surgery Progress Note ---
Surgery Progress Note Subjective Additional Comments COVID + labs stable exam stable no acute events Objective Last 24 Hour Vital Signs Date Time Temp Pulse Resp B/P (MAP) Pulse Ox O2 Delivery O2 Flow Rate FiO2 06/21/19 12:00 103 06/21/19 12:00 Nasal Cannula 2.0 06/21/19 12:00 97.9 104 20 112/60 (77) 97 06/21/19 10:00 102 06/21/19 08:00 99.9 91 21 120/55 (76) 95 06/21/19 08:00 Nasal Cannula 2.0 06/21/19 04:00 Nasal Cannula 2.0 06/21/19 04:00 99.6 102 22 106/60 (75) 97 06/21/19 03:37 103 06/21/19 00:00 Nasal Cannula 2.0 06/21/19 00:00 99.4 103 22 122/66 (84) 96 06/20/19 23:30 102 06/20/19 20:00 99.0 107 22 127/82 (97) 95 06/20/19 20:00 Nasal Cannula 2.0 I&O Intake and Output 06/20/19 06/21/19 19:00 07:00 Intake Total 783.333 ml 896.667 ml Output Total 450 ml 700 ml Balance 333.333 ml 196.667 ml Intake Free Water 150 ml 200 ml IV Total 183.333 ml 146.667 ml Tube Feeding 450 ml 550 ml Output Urine Total 450 ml 700 ml Cardiovascular: RSR Respiratory: decreased breath sounds Abdomen: soft, non-tender, present bowel sounds Extremities: no tenderness, no cyanosis Laboratory Tests Test 06/21/19 03:40 White Blood Count 10.9 K/UL (4.8-10.8) H Red Blood Count 4.00 M/UL (4.70-6.10) L Hemoglobin 12.4 G/DL (14.2-18.0) L Hematocrit 35.8 % (42.0-52.0) L Mean Corpuscular Volume 90 FL (80-99) Mean Corpuscular Hemoglobin 30.9 PG (27.0-31.0) Mean Corpuscular Hemoglobin Concent 34.5 G/DL (32.0-36.0) Red Cell Distribution Width 13.2 % (11.6-14.8) Platelet Count 141 K/UL (150-450) L Mean Platelet Volume 5.8 FL (6.5-10.1) L Neutrophils (%) (Auto) 53.3 % (45.0-75.0) Lymphocytes (%) (Auto) 27.2 % (20.0-45.0) Monocytes (%) (Auto) 16.6 % (1.0-10.0) H Eosinophils (%) (Auto) 2.6 % (0.0-3.0) Basophils (%) (Auto) 0.3 % (0.0-2.0) Sodium Level 134 MMOL/L (136-145) L Potassium Level 4.7 MMOL/L (3.5-5.1) Chloride Level 99 MMOL/L (98-107) Carbon Dioxide Level 28 MMOL/L (21-32) Anion Gap 7 mmol/L (5-15) Blood Urea Nitrogen 16 mg/dL (7-18) Creatinine 1.1 MG/DL (0.55-1.30) Estimat Glomerular Filtration Rate > 60 mL/min (>60) Glucose Level 106 MG/DL (74-106) Calcium Level 8.6 MG/DL (8.5-10.1) Plan Problems: (1) Sepsis Assessment & Plan: This is a 68-year-old male that presented with fevers, leukocytosis, lactic acidosis. Patient septic and requiring work-up care and management. COPD ID evaluation. IV antibiotics per infectious disease. IV fluid hydration. Lactic improving with hydration. Patient awake alert responsive otherwise comfortable but does have wounds that are very tender. Wounds unlikely etiology of infection. Pending microbiology. Labs reviewed. improved covid neg second covid positive (2) DM (diabetes mellitus) (3) Feeding by G-tube Assessment & Plan: DAILY ESTIMATED NEEDS: Needs based on Pulmonary, sepsis, wounds 69kg 25-30 kcals/kg 9737-2931 total kcals 1.25-2 g protein/kg 86-138 g total protein 25-30 mL/kg 8618-7714 total fluid mLs NUTRITION DIAGNOSIS: *Swallowing difficulty R/T dysphagia, confusion as evidenced by s/p PEG placement, on oral diet at [facility], now w/ recs for GT feeds pending VSS. CURRENT DIET:NPO PO DIET RECOMMENDATIONS: IF ORAL GRAT INDICATED: rec liberalized REGULAR/ texture per [employer] ENTERAL NUTRITION RECOMMENDATIONS: Glucerna 1.5 @ 50ml/hr x24 hrs to provide 1200ml, 1800 kcal, 99g pro, 911ml free H2o As medically able, rec start GT feeds to meet est nutritional needs - Initiate Glucerna 1.5 @ 20ml/hr x 6 hrs - Advance 10ml q 4-6 hrs as tolerated to goal rate. - HOB over 30 degrees/ water flush per MD ADDITIONAL RECOMMENDATIONS: 1) Per SNF: HT 71 inches, rec calibrated bed scale wts for eval 2) Updated HgA1C for eval 3) Wound care: w/ diet, rec DANIELA BID (via GT or oral) + Vit C 250mg BID F/up w/ WC eval 4) [employer] re-eval for possible oral grat w/ GT feeds . (4) LILIAM (acute kidney injury) (5) Suspected COVID-19 virus infection (6) Thrombocytopenia (7) DVT (deep venous thrombosis) (8) HCAP (healthcare-associated pneumonia) (9) Acute DVT (deep venous thrombosis) (10) Wound, open Assessment & Plan: Pt presented on admission with two wounds of unknown etiology, Pressure injury sacrum and both heels. Generalized rash which is pink and pimple-like in appearance, scaled rash noted to both distal lower extremities and both feet. 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 (L)1cm x (W)1.8cm x (D)1.2cm. Yellow slough noted along hartmann of wound. Edges and periwound erythematous. NO elevation in skin temp or induration periwound. Small amt haemopurulent exudate noted. Full thickness stage 4 wound noted to upper back(L)0.7cm x (W)1.9cm, tunneled depth 0.9cm. Mixed slough and erythema noted along hartmann of wound.Small amt seropurulent exudate. No odor noted. Marginal erythema without induration or elevation in skin temp periwound. Non-blanching erythema without induration sacrum. Historical scars noted to R and L ischial tuberosities. Unstageable pressure injury noted to L heel(L)1.5cm x (W)2.5cm. 100% dry eschar noted at base of heel. Edges adherent,erythematous and dry. Periwound heel is boggy with non-blanching erythema. R heel is boggy with non-blanchable erythema. Non-blanchable erythema without induration or fluctuance medial/lateral L foot.( L)1.5cm x (W)1.5cm. Non-blanchable erythema without induration or fluctuance noted to distal/ lateral L foot. Non-blanchable erythema without fluctuance or induration R lateral Malleolus(L) 2cm x (W)1.5cm. Tx.Plan: Cleanse wound upper back with Saline. Loosely pack with Therahoney impregnated kerlix . Apply Cavilon Skin Barrier periwound. Cover with Optifoam drsg Daily and prn. Cleanse wound L Brachial with Saline. Loosely pack with Therahoney impregnated Kerlix. Apply Cavilon Skin Barrier periwound. Cover with Optifoam drsg Daily and prn. Apply Moisture Barrier Paste to sacrum. Cover with Optifoam drsg. Change every 3 days and prn. Apply Betadine to L heel. Cover with Optifoam drsg. Change every 3 days and prn Apply Cavilon Skin Barrier to R heel, R malleolus. Cover each site with Optifoam drsg. Change every 7 days and prn. Apply Cavilon Skin Barrier to medial/lateral, and Distal/Lateral L foot. Cover with Optifoam drsg. Change every 7 days and prn. Reposition at least every 2hours or as tolerated. Off-load heels with pillow. APM/JELLY Mattress overlay. (11) Chronic kidney disease (12) Malignant neoplasm of right kidney (13) PVD (peripheral vascular disease) (14) Schizophrenia (15) Acute respiratory failure (16) Septic shock (17) Systolic heart failure (18) Renal failure (ARF), acute on chronic (19) Bradyarrhythmia (20) Dysphagia (21) Encounter for PEG (percutaneous endoscopic gastrostomy) (22) cardiomyopathy with EF of 35% Mauricio Anne Jun 21, 2019 17:27
[2019-06-21] MEDS: Vancomycin 750 MG in D5W 275 ML IVPB SCH (18:00)
[2019-06-22] VITALS: BP 117/63
[2019-06-22 04:00] VITALS: BP 103/60
[2019-06-22 05:39] LABS: HEMATOCRIT 34.7 % (42.0-52.0); HEMOGLOBIN 12.1 G/DL (14.2-18.0); MEAN CORPUSCULAR VOLUME 90 FL (80-99); PLATELET COUNT 146 K/UL (150-450); RED BLOOD COUNT 3.86 M/UL (4.70-6.10); RED CELL DISTRIBUTION WIDTH 13.6 % (11.6-14.8); WHITE BLOOD COUNT 10.5 K/UL (4.8-10.8)
[2019-06-22 06:14] LABS: ANION GAP 7 mmol/L (5-15); BLOOD UREA NITROGEN 22 mg/dL (7-18); CALCIUM 8.7 MG/DL (8.5-10.1); CARBON DIOXIDE 29 MMOL/L (21-32); CHLORIDE 99 MMOL/L (98-107); CREATININE 1.2 MG/DL (0.55-1.30); POTASSIUM 4.4 MMOL/L (3.5-5.1); SODIUM 135 MMOL/L (136-145)
[2019-06-22 08:00] VITALS: BP 100/53
[2019-06-22] MEDS: Xarelto 10mg tab ORAL SCH (09:10)
[2019-06-22] MEDS: Donepezil 5mg Tab ORAL SCH (09:10)
--- NOTE | 2019-06-22 10:34 | Infectious Diseases Prog Note ---
Assessment/Plan Assessment/Plan A: Fever, recurrent Leukocytosis, recurrent Sepsis, improving Elevated lactate, SP Confirmed COVID-19 PNA, on rx CXR: Right upper lobe and left perihilar mild interstitial opacities. This is nonspecific, could indicate infectious interstitial disease is, residual chronic interstitial disease, or mild pulmonary edema, among many other possibilities flu swab negative First SARS-CoV PCR negative Second SARS-CoV PCR positive Probable Scabies, sp rx r/o bacteremia BCx: ngtd unlikely UTI UA neg Multiple pressure injuries h/o MRSA pneumonia GERD DM Schizophrenia HTN [place] resident COPD Tobacco abuse Kidney cancer OA CKD Anemia PVD CHF Plan: Plaquenil #2. will avoid azithromycin since QTc 424 06/14 SP Permethrin #1, repeat 06/21 06/20 SP cefepime/vanc #7 06/14 SP Levaquin #1 f/u bcx f/u sputum culture monitor temp and CBC monitor resp status continue isolation DW RN Subjective Allergies: Coded Allergies: No Known Allergies (Unverified , 01/24/19) Subjective Afebrile saturation is borderline on nasal canula Objective Vital Signs Last 24 Hour Vital Signs Date Time Temp Pulse Resp B/P (MAP) Pulse Ox O2 Delivery O2 Flow Rate FiO2 06/22/19 08:00 97.7 1 16 100/53 (69) 94 06/22/19 04:00 98.5 103 21 103/60 (74) 95 06/22/19 04:00 Nasal Cannula 2.0 06/22/19 04:00 100 06/22/19 00:00 98.1 107 22 117/63 (81) 94 06/22/19 00:00 107 06/22/19 00:00 Nasal Cannula 2.0 06/21/19 20:00 Nasal Cannula 2.0 06/21/19 20:00 98.6 117 21 105/64 (78) 94 06/21/19 20:00 115 06/21/19 18:00 97.9 115 21 136/83 (100) 98 06/21/19 16:00 90 06/21/19 16:00 97.9 115 21 136/83 (100) 98 06/21/19 16:00 Nasal Cannula 2.0 06/21/19 12:00 103 06/21/19 12:00 Nasal Cannula 2.0 06/21/19 12:00 97.9 104 20 112/60 (77) 97 Height (Feet): 5 Height (Inches): 9.00 Weight (Pounds): 150 Objective Gen: NAD. normocephalic. atraumatic. well nourished. CV: S1+S2. regular. no rubs. Resp: RRR. unlabored. equal chest rise. coarse Abd: Soft. nondistended. Neuro: lethargic Laboratory Tests Test 06/22/19 04:50 White Blood Count 10.5 K/UL (4.8-10.8) Red Blood Count 3.86 M/UL (4.70-6.10) L Hemoglobin 12.1 G/DL (14.2-18.0) L Hematocrit 34.7 % (42.0-52.0) L Mean Corpuscular Volume 90 FL (80-99) Mean Corpuscular Hemoglobin 31.3 PG (27.0-31.0) H Mean Corpuscular Hemoglobin Concent 34.7 G/DL (32.0-36.0) Red Cell Distribution Width 13.6 % (11.6-14.8) Platelet Count 146 K/UL (150-450) L Mean Platelet Volume 5.4 FL (6.5-10.1) L Neutrophils (%) (Auto) % (45.0-75.0) Lymphocytes (%) (Auto) % (20.0-45.0) Monocytes (%) (Auto) % (1.0-10.0) Eosinophils (%) (Auto) % (0.0-3.0) Basophils (%) (Auto) % (0.0-2.0) Differential Total Cells Counted 100 Neutrophils % (Manual) 51 % (45-75) Lymphocytes % (Manual) 24 % (20-45) Monocytes % (Manual) 20 % (1-10) H Eosinophils % (Manual) 5 % (0-3) H Basophils % (Manual) 0 % (0-2) Band Neutrophils 0 % (0-8) Platelet Estimate Decreased L Platelet Morphology Normal Red Blood Cell Morphology Normal Sodium Level 135 MMOL/L (136-145) L Potassium Level 4.4 MMOL/L (3.5-5.1) Chloride Level 99 MMOL/L (98-107) Carbon Dioxide Level 29 MMOL/L (21-32) Anion Gap 7 mmol/L (5-15) Blood Urea Nitrogen 22 mg/dL (7-18) H Creatinine 1.2 MG/DL (0.55-1.30) Estimat Glomerular Filtration Rate > 60 mL/min (>60) Glucose Level 123 MG/DL (74-106) H Calcium Level 8.7 MG/DL (8.5-10.1) Current Medications Medications (Trade) Dose Ordered Sig/Ricardo Route PRN Reason Start Time Stop Time Status Last Admin Dose Admin Acetaminophen (Tylenol) 650 mg Q4H PRN GT MILD/TEMP 06/20/19 15:48 07/15/19 15:47 Cefepime HCl 1 gm/ Dextrose 55 ml @ 110 mls/hr Q12H IVPB 06/20/19 23:00 06/26/19 10:59 06/21/19 23:07 Donepezil HCl (Aricept) 5 mg DAILY ORAL 06/21/19 09:00 07/15/19 08:59 06/22/19 09:10 Gabapentin (Neurontin) 300 mg THREE TIMES A DAY ORAL 06/20/19 18:00 07/15/19 08:59 06/22/19 09:10 Hydroxychloroquine Sulfate (Plaquenil) 200 mg BID ORAL 06/22/19 18:00 06/26/19 09:01 Nitroglycerin (Ntg) 0.4 mg Q5M PRN SL Prn Chest Pain 06/20/19 15:49 07/15/19 15:48 Ondansetron HCl (Zofran) 4 mg Q6H PRN IVP Nausea & Vomiting 06/20/19 15:49 07/15/19 15:48 Permethrin (Elimite) 1 applic ONCE ONCE TOPIC 06/22/19 16:00 06/22/19 16:01 Polyethylene Glycol (Miralax) 17 gm DAILYPRN PRN ORAL Constipation 06/20/19 15:49 07/20/19 15:48 Promethazine HCl/ Codeine (Phenergan with Codeine) 5 ml Q4H PRN ORAL For Cough 06/20/19 15:50 07/15/19 15:49 Quetiapine Fumarate (SEROqueL) 100 mg TWICE A DAY ORAL 06/20/19 18:00 07/30/19 08:59 06/22/19 09:10 Rivaroxaban (Xarelto) 20 mg DAILY ORAL 06/21/19 09:00 09/13/19 08:59 06/22/19 09:10 Temazepam (Restoril) 15 mg HSPRN PRN ORAL Insomnia 06/20/19 21:00 06/25/19 20:59 Vancomycin HCl (Vanco rx to dose) 1 ea DAILY PRN MISC Per rx protocol 06/21/19 09:00 07/15/19 08:29 Pili Lenz MD Jun 22, 2019 10:34
--- NOTE | 2019-06-22 11:29 | Pulmonology Progress Note ---
Assessment/Plan Problems: (1) 2019 novel coronavirus disease (COVID-19) (2) HCAP (healthcare-associated pneumonia) (3) Systolic heart failure (4) DM (diabetes mellitus) (5) cardiomyopathy with EF of 35% (6) Schizophrenia Assessment/Plan afebrile now wbc decreasing, normal now second Covid-19 came back positive on Hydroxychloroquine respiratory isolation respiratory treatment titrate fio2 to sat of 92% tao culture iv abx dc iv fluids med/surg psych to see dvt prophylaxis. Subjective ROS Limited/Unobtainable: No Constitutional: Reports: no symptoms HEENT: Repors: no symptoms Allergies: Coded Allergies: No Known Allergies (Unverified , 01/24/19) Objective Last 24 Hour Vital Signs Date Time Temp Pulse Resp B/P (MAP) Pulse Ox O2 Delivery O2 Flow Rate FiO2 06/22/19 08:00 97.7 1 16 100/53 (69) 94 06/22/19 08:00 Nasal Cannula 2.0 06/22/19 07:44 99 06/22/19 04:00 98.5 103 21 103/60 (74) 95 06/22/19 04:00 Nasal Cannula 2.0 06/22/19 04:00 100 06/22/19 00:00 98.1 107 22 117/63 (81) 94 06/22/19 00:00 107 06/22/19 00:00 Nasal Cannula 2.0 06/21/19 20:00 Nasal Cannula 2.0 06/21/19 20:00 98.6 117 21 105/64 (78) 94 06/21/19 20:00 115 06/21/19 18:00 97.9 115 21 136/83 (100) 98 06/21/19 16:00 90 06/21/19 16:00 97.9 115 21 136/83 (100) 98 06/21/19 16:00 Nasal Cannula 2.0 06/21/19 12:00 103 06/21/19 12:00 Nasal Cannula 2.0 06/21/19 12:00 97.9 104 20 112/60 (77) 97 Intake and Output 06/21/19 06/22/19 19:00 07:00 Intake Total 150 ml 650 ml Output Total 750 ml 750 ml Balance -600 ml -100 ml Intake Free Water 50 ml 100 ml Tube Feeding 100 ml 550 ml Output Urine Total 750 ml 750 ml Objective General Appearance: WD/WN HEENT: normocephalic Respiratory/Chest: chest wall non-tender, lungs clear Cardiovascular: normal peripheral pulses, normal rate, no gallop/murmur Abdomen: soft, non tender, non distended Extremities: no clubbing Skin: no rash, no lesions Laboratory Tests 06/22/19 04:50: White Blood Count 10.5, Red Blood Count 3.86L, Hemoglobin 12.1L, Hematocrit 34.7L, Mean Corpuscular Volume 90, Mean Corpuscular Hemoglobin 31.3H, Mean Corpuscular Hemoglobin Concent 34.7, Red Cell Distribution Width 13.6, Platelet Count 146L, Mean Platelet Volume 5.4L, Neutrophils (%) (Auto) , Lymphocytes (%) (Auto) , Monocytes (%) (Auto) , Eosinophils (%) (Auto) , Basophils (%) (Auto) , Differential Total Cells Counted 100, Neutrophils % (Manual) 51, Lymphocytes % ( Manual) 24, Monocytes % (Manual) 20H, Eosinophils % (Manual) 5H, Basophils % ( Manual) 0, Band Neutrophils 0, Platelet Estimate DecreasedL, Platelet Morphology Normal, Red Blood Cell Morphology Normal, Sodium Level 135L, Potassium Level 4.4, Chloride Level 99, Carbon Dioxide Level 29, Anion Gap 7, Blood Urea Nitrogen 22H, Creatinine 1.2, Estimat Glomerular Filtration Rate > 60 , Glucose Level 123H, Calcium Level 8.7 Current Medications Medications (Trade) Dose Ordered Sig/Ricardo Route PRN Reason Start Time Stop Time Status Last Admin Dose Admin Acetaminophen (Tylenol) 650 mg Q4H PRN GT MILD/TEMP 06/20/19 15:48 07/15/19 15:47 Donepezil HCl (Aricept) 5 mg DAILY ORAL 06/21/19 09:00 07/15/19 08:59 06/22/19 09:10 Gabapentin (Neurontin) 300 mg THREE TIMES A DAY ORAL 06/20/19 18:00 07/15/19 08:59 06/22/19 09:10 Hydroxychloroquine Sulfate (Plaquenil) 200 mg BID ORAL 06/22/19 18:00 06/26/19 09:01 Nitroglycerin (Ntg) 0.4 mg Q5M PRN SL Prn Chest Pain 06/20/19 15:49 07/15/19 15:48 Ondansetron HCl (Zofran) 4 mg Q6H PRN IVP Nausea & Vomiting 06/20/19 15:49 07/15/19 15:48 Permethrin (Elimite) 1 applic ONCE ONCE TOPIC 06/22/19 16:00 06/22/19 16:01 Polyethylene Glycol (Miralax) 17 gm DAILYPRN PRN ORAL Constipation 06/20/19 15:49 07/20/19 15:48 Promethazine HCl/ Codeine (Phenergan with Codeine) 5 ml Q4H PRN ORAL For Cough 06/20/19 15:50 07/15/19 15:49 Quetiapine Fumarate (SEROqueL) 100 mg TWICE A DAY ORAL 06/20/19 18:00 07/30/19 08:59 06/22/19 09:10 Rivaroxaban (Xarelto) 20 mg DAILY ORAL 06/21/19 09:00 09/13/19 08:59 06/22/19 09:10 Temazepam (Restoril) 15 mg HSPRN PRN ORAL Insomnia 06/20/19 21:00 06/25/19 20:59 Ron Anthony MD Jun 22, 2019 11:29
[2019-06-22 12:00] VITALS: BP 98/62
--- NOTE | 2019-06-22 12:33 | General Progress Note ---
Assessment/Plan Problem List: (1) DM (diabetes mellitus) ICD Codes: E11.9 - Type 2 diabetes mellitus without complications SNOMED: 67232560 (2) Feeding by G-tube ICD Codes: Z93.1 - Gastrostomy status SNOMED: 312365649, 371064462, 210201637 (3) LILIAM (acute kidney injury) ICD Codes: N17.9 - Acute kidney failure, unspecified SNOMED: 75083035, 3751828 (4) Sepsis ICD Codes: A41.9 - Sepsis, unspecified organism SNOMED: 73961471, 504030094 Qualifiers: Qualified Codes: A41.9 - Sepsis, unspecified organism; R65.20 - Severe sepsis without septic shock; N17.9 - Acute kidney failure, unspecified (5) PVD (peripheral vascular disease) ICD Codes: I73.9 - Peripheral vascular disease, unspecified SNOMED: 442619811 (6) Encounter for PEG (percutaneous endoscopic gastrostomy) ICD Codes: Z43.1 - Encounter for attention to gastrostomy SNOMED: 165324122, 505758584 (7) Suspected COVID-19 virus infection ICD Codes: R68.89 - Other general symptoms and signs SNOMED: 592789132 Status: unchanged Assessment/Plan: o2 pulm tx abx pt diet cbc bmp am Subjective Constitutional: Reports: weakness Allergies: Coded Allergies: No Known Allergies (Unverified , 01/24/19) All Systems: reviewed and negative except above Subjective o2nc sleep Objective Last 24 Hour Vital Signs Date Time Temp Pulse Resp B/P (MAP) Pulse Ox O2 Delivery O2 Flow Rate FiO2 06/22/19 12:00 96.8 99 16 98/62 (74) 93 06/22/19 08:00 97.7 1 16 100/53 (69) 94 06/22/19 08:00 Nasal Cannula 2.0 06/22/19 07:44 99 06/22/19 04:00 98.5 103 21 103/60 (74) 95 06/22/19 04:00 Nasal Cannula 2.0 06/22/19 04:00 100 06/22/19 00:00 98.1 107 22 117/63 (81) 94 06/22/19 00:00 107 06/22/19 00:00 Nasal Cannula 2.0 4/6/20 20:00 Nasal Cannula 2.0 06/21/19 20:00 98.6 117 21 105/64 (78) 94 06/21/19 20:00 115 06/21/19 18:00 97.9 115 21 136/83 (100) 98 06/21/19 16:00 90 06/21/19 16:00 97.9 115 21 136/83 (100) 98 06/21/19 16:00 Nasal Cannula 2.0 Intake and Output 06/21/19 06/22/19 19:00 07:00 Intake Total 150 ml 650 ml Output Total 750 ml 750 ml Balance -600 ml -100 ml Intake Free Water 50 ml 100 ml Tube Feeding 100 ml 550 ml Output Urine Total 750 ml 750 ml Laboratory Tests 06/22/19 04:50: White Blood Count 10.5, Red Blood Count 3.86L, Hemoglobin 12.1L, Hematocrit 34.7L, Mean Corpuscular Volume 90, Mean Corpuscular Hemoglobin 31.3H, Mean Corpuscular Hemoglobin Concent 34.7, Red Cell Distribution Width 13.6, Platelet Count 146L, Mean Platelet Volume 5.4L, Neutrophils (%) (Auto) , Lymphocytes (%) (Auto) , Monocytes (%) (Auto) , Eosinophils (%) (Auto) , Basophils (%) (Auto) , Differential Total Cells Counted 100, Neutrophils % (Manual) 51, Lymphocytes % ( Manual) 24, Monocytes % (Manual) 20H, Eosinophils % (Manual) 5H, Basophils % ( Manual) 0, Band Neutrophils 0, Platelet Estimate DecreasedL, Platelet Morphology Normal, Red Blood Cell Morphology Normal, Sodium Level 135L, Potassium Level 4.4, Chloride Level 99, Carbon Dioxide Level 29, Anion Gap 7, Blood Urea Nitrogen 22H, Creatinine 1.2, Estimat Glomerular Filtration Rate > 60 , Glucose Level 123H, Calcium Level 8.7 Height (Feet): 5 Height (Inches): 9.00 Weight (Pounds): 150 General Appearance: lethargic EENT: normal ENT inspection Neck: normal alignment Cardiovascular: normal rate, regular rhythm Respiratory/Chest: no accessory muscle use Extremities: normal inspection Skin: normal pigmentation HanCorey VermaFloryMirna Jun 22, 2019 12:33
--- NOTE | 2019-06-22 12:50 | Surgery Progress Note ---
Surgery Progress Note Subjective Additional Comments no acute events Objective Last 24 Hour Vital Signs Date Time Temp Pulse Resp B/P (MAP) Pulse Ox O2 Delivery O2 Flow Rate FiO2 06/22/19 12:00 96.8 99 16 98/62 (74) 93 06/22/19 08:00 97.7 1 16 100/53 (69) 94 06/22/19 08:00 Nasal Cannula 2.0 06/22/19 07:44 99 06/22/19 04:00 98.5 103 21 103/60 (74) 95 06/22/19 04:00 Nasal Cannula 2.0 06/22/19 04:00 100 06/22/19 00:00 98.1 107 22 117/63 (81) 94 06/22/19 00:00 107 06/22/19 00:00 Nasal Cannula 2.0 06/21/19 20:00 Nasal Cannula 2.0 06/21/19 20:00 98.6 117 21 105/64 (78) 94 06/21/19 20:00 115 06/21/19 18:00 97.9 115 21 136/83 (100) 98 06/21/19 16:00 90 06/21/19 16:00 97.9 115 21 136/83 (100) 98 06/21/19 16:00 Nasal Cannula 2.0 I&O Intake and Output 06/21/19 06/22/19 19:00 07:00 Intake Total 150 ml 650 ml Output Total 750 ml 750 ml Balance -600 ml -100 ml Intake Free Water 50 ml 100 ml Tube Feeding 100 ml 550 ml Output Urine Total 750 ml 750 ml Dressing: other Wound: other Drains: other Cardiovascular: RSR Respiratory: decreased breath sounds Abdomen: soft, non-tender, present bowel sounds Extremities: no cyanosis Laboratory Tests Test 06/22/19 04:50 White Blood Count 10.5 K/UL (4.8-10.8) Red Blood Count 3.86 M/UL (4.70-6.10) L Hemoglobin 12.1 G/DL (14.2-18.0) L Hematocrit 34.7 % (42.0-52.0) L Mean Corpuscular Volume 90 FL (80-99) Mean Corpuscular Hemoglobin 31.3 PG (27.0-31.0) H Mean Corpuscular Hemoglobin Concent 34.7 G/DL (32.0-36.0) Red Cell Distribution Width 13.6 % (11.6-14.8) Platelet Count 146 K/UL (150-450) L Mean Platelet Volume 5.4 FL (6.5-10.1) L Neutrophils (%) (Auto) % (45.0-75.0) Lymphocytes (%) (Auto) % (20.0-45.0) Monocytes (%) (Auto) % (1.0-10.0) Eosinophils (%) (Auto) % (0.0-3.0) Basophils (%) (Auto) % (0.0-2.0) Differential Total Cells Counted 100 Neutrophils % (Manual) 51 % (45-75) Lymphocytes % (Manual) 24 % (20-45) Monocytes % (Manual) 20 % (1-10) H Eosinophils % (Manual) 5 % (0-3) H Basophils % (Manual) 0 % (0-2) Band Neutrophils 0 % (0-8) Platelet Estimate Decreased L Platelet Morphology Normal Red Blood Cell Morphology Normal Sodium Level 135 MMOL/L (136-145) L Potassium Level 4.4 MMOL/L (3.5-5.1) Chloride Level 99 MMOL/L (98-107) Carbon Dioxide Level 29 MMOL/L (21-32) Anion Gap 7 mmol/L (5-15) Blood Urea Nitrogen 22 mg/dL (7-18) H Creatinine 1.2 MG/DL (0.55-1.30) Estimat Glomerular Filtration Rate > 60 mL/min (>60) Glucose Level 123 MG/DL (74-106) H Calcium Level 8.7 MG/DL (8.5-10.1) Plan Problems: (1) Sepsis Assessment & Plan: This is a 68-year-old male that presented with fevers, leukocytosis, lactic acidosis. Patient septic and requiring work-up care and management. COPD ID evaluation. IV antibiotics per infectious disease. IV fluid hydration. Lactic improving with hydration. Patient awake alert responsive otherwise comfortable but does have wounds that are very tender. Wounds unlikely etiology of infection. Pending microbiology. Labs reviewed. improved covid neg second covid positive (2) DM (diabetes mellitus) (3) Feeding by G-tube Assessment & Plan: DAILY ESTIMATED NEEDS: Needs based on Pulmonary, sepsis, wounds 69kg 25-30 kcals/kg 2817-3911 total kcals 1.25-2 g protein/kg 86-138 g total protein 25-30 mL/kg 9174-6867 total fluid mLs NUTRITION DIAGNOSIS: *Swallowing difficulty R/T dysphagia, confusion as evidenced by s/p PEG placement, on oral diet at SNF, now w/ recs for GT feeds pending VSS. CURRENT DIET:NPO PO DIET RECOMMENDATIONS: IF ORAL GRAT INDICATED: rec liberalized REGULAR/ texture per GENERATOR SWITCHBOARD OPERATOR ENTERAL NUTRITION RECOMMENDATIONS: Glucerna 1.5 @ 50ml/hr x24 hrs to provide 1200ml, 1800 kcal, 99g pro, 911ml free H2o As medically able, rec start GT feeds to meet est nutritional needs - Initiate Glucerna 1.5 @ 20ml/hr x 6 hrs - Advance 10ml q 4-6 hrs as tolerated to goal rate. - HOB over 30 degrees/ water flush per MD ADDITIONAL RECOMMENDATIONS: 1) Per SNF: HT 71 inches, rec calibrated bed scale wts for eval 2) Updated HgA1C for eval 3) Wound care: w/ diet, rec DANIELA BID (via GT or oral) + Vit C 250mg BID F/up w/ WC eval 4) GENERATOR SWITCHBOARD OPERATOR re-eval for possible oral grat w/ GT feeds . (4) LILIAM (acute kidney injury) (5) Suspected COVID-19 virus infection (6) Thrombocytopenia (7) DVT (deep venous thrombosis) (8) HCAP (healthcare-associated pneumonia) (9) Acute DVT (deep venous thrombosis) (10) Wound, open Assessment & Plan: Pt presented on admission with two wounds of unknown etiology, Pressure injury sacrum and both heels. Generalized rash which is pink and pimple-like in appearance, scaled rash noted to both distal lower extremities and both feet. 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 (L)1cm x (W)1.8cm x (D)1.2cm. Yellow slough noted along hartmann of wound. Edges and periwound erythematous. NO elevation in skin temp or induration periwound. Small amt haemopurulent exudate noted. Full thickness stage 4 wound noted to upper back(L)0.7cm x (W)1.9cm, tunneled depth 0.9cm. Mixed slough and erythema noted along hartmann of wound.Small amt seropurulent exudate. No odor noted. Marginal erythema without induration or elevation in skin temp periwound. Non-blanching erythema without induration sacrum. Historical scars noted to R and L ischial tuberosities. Unstageable pressure injury noted to L heel(L)1.5cm x (W)2.5cm. 100% dry eschar noted at base of heel. Edges adherent,erythematous and dry. Periwound heel is boggy with non-blanching erythema. R heel is boggy with non-blanchable erythema. Non-blanchable erythema without induration or fluctuance medial/lateral L foot.( L)1.5cm x (W)1.5cm. Non-blanchable erythema without induration or fluctuance noted to distal/ lateral L foot. Non-blanchable erythema without fluctuance or induration R lateral Malleolus(L) 2cm x (W)1.5cm. Tx.Plan: Cleanse wound upper back with Saline. Loosely pack with Therahoney impregnated kerlix . Apply Cavilon Skin Barrier periwound. Cover with Optifoam drsg Daily and prn. Cleanse wound L Brachial with Saline. Loosely pack with Therahoney impregnated Kerlix. Apply Cavilon Skin Barrier periwound. Cover with Optifoam drsg Daily and prn. Apply Moisture Barrier Paste to sacrum. Cover with Optifoam drsg. Change every 3 days and prn. Apply Betadine to L heel. Cover with Optifoam drsg. Change every 3 days and prn Apply Cavilon Skin Barrier to R heel, R malleolus. Cover each site with Optifoam drsg. Change every 7 days and prn. Apply Cavilon Skin Barrier to medial/lateral, and Distal/Lateral L foot. Cover with Optifoam drsg. Change every 7 days and prn. Reposition at least every 2hours or as tolerated. Off-load heels with pillow. APM/JELLY Mattress overlay. (11) Chronic kidney disease (12) Malignant neoplasm of right kidney (13) PVD (peripheral vascular disease) (14) Schizophrenia (15) Acute respiratory failure (16) Septic shock (17) Systolic heart failure (18) Renal failure (ARF), acute on chronic (19) Bradyarrhythmia (20) Dysphagia (21) Encounter for PEG (percutaneous endoscopic gastrostomy) (22) cardiomyopathy with EF of 35% Mauricio Anne Jun 22, 2019 12:50
[2019-06-22 16:00] VITALS: BP 124/70
[2019-06-22 20:00] VITALS: BP 100/70
[2019-06-22] MEDS ORDERED: Calcium Chloride 10% 10ml carpuject IVP ONE (22:10)
[2019-06-22] MEDS ORDERED: Sodium Bicarbonate 50ml Carp ONE (22:10)
[2019-06-23] VITALS: BP 100/70
[2019-06-23 04:00] VITALS: BP 110/73
[2019-06-23 06:59] LABS: BASOPHILS % (AUTO) 0.5 % (0.0-2.0); EOSINOPHILS % (AUTO) 4.2 % (0.0-3.0); HEMATOCRIT 36.4 % (42.0-52.0); HEMOGLOBIN 12.6 G/DL (14.2-18.0); LYMPHOCYTES % (AUTO) 20.5 % (20.0-45.0); MEAN CORPUSCULAR VOLUME 90 FL (80-99); MONOCYTES % (AUTO) 18.2 % (1.0-10.0); NEUTROPHILS % (AUTO) 56.7 % (45.0-75.0); PLATELET COUNT 132 K/UL (150-450); RED BLOOD COUNT 4.02 M/UL (4.70-6.10); RED CELL DISTRIBUTION WIDTH 13.9 % (11.6-14.8); WHITE BLOOD COUNT 15.3 K/UL (4.8-10.8)
--- NOTE | 2019-06-23 07:14 | Infectious Diseases Prog Note ---
Assessment/Plan Assessment/Plan A: Fever, SP Leukocytosis, recurrent Sepsis, improving Elevated lactate, SP Confirmed COVID-19 PNA, on rx CXR: Right upper lobe and left perihilar mild interstitial opacities. This is nonspecific, could indicate infectious interstitial disease is, residual chronic interstitial disease, or mild pulmonary edema, among many other possibilities flu swab negative First SARS-CoV PCR negative Second SARS-CoV PCR positive Probable Scabies, sp rx r/o bacteremia BCx: ngtd unlikely UTI UA neg Multiple pressure injuries h/o MRSA pneumonia GERD DM Schizophrenia HTN [place] resident COPD Tobacco abuse Kidney cancer OA CKD Anemia PVD CHF Plan: Plaquenil #3/5. will avoid azithromycin since QTc 424>>451>>453. monitor daily EKG. 06/14 SP Permethrin #1, repeat 06/21 #2 06/20 SP cefepime/vanc #7 06/14 SP Levaquin #1 f/u bcx monitor temp and CBC monitor resp status continue isolation DW RN Subjective Allergies: Coded Allergies: No Known Allergies (Unverified , 01/24/19) Subjective Afebrile now on 15L NRB Uptrendin leukocytosis pt denies sob but is somolent Objective Vital Signs Last 24 Hour Vital Signs Date Time Temp Pulse Resp B/P (MAP) Pulse Ox O2 Delivery O2 Flow Rate FiO2 06/23/19 04:00 Non-Rebreather 15.0 06/23/19 04:00 97.5 94 18 110/73 (85) 99 06/23/19 04:00 90 06/23/19 00:00 Non-Rebreather 15.0 06/23/19 00:00 97.5 94 16 100/70 (80) 100 06/22/19 23:37 85 06/22/19 20:00 Non-Rebreather 15.0 06/22/19 20:00 97.3 94 16 100/70 (80) 100 06/22/19 19:29 89 06/22/19 16:00 97.2 94 16 124/70 (88) 100 06/22/19 16:00 Non-Rebreather 15.0 06/22/19 15:32 80 06/22/19 12:00 96.8 99 16 98/62 (74) 93 06/22/19 12:00 Nasal Cannula 2.0 06/22/19 11:40 98 06/22/19 08:00 97.7 101 16 100/53 (69) 94 06/22/19 08:00 Nasal Cannula 2.0 06/22/19 07:44 99 Height (Feet): 5 Height (Inches): 9.00 Weight (Pounds): 150 Objective Gen: NAD. calm CV: S1+S2. regular. no rubs. Resp: RRR. unlabored. equal chest rise. coarse Abd: Soft. nondistended. Neuro: lethargic Laboratory Tests Test 06/22/19 15:34 06/23/19 05:30 Arterial Blood pH 7.418 (7.350-7.450) Arterial Blood Partial Pressure CO2 51.1 mmHg (35.0-45.0) H Arterial Blood Partial Pressure O2 44.2 mmHg (75.0-100.0) Arterial Blood HCO3 32.3 mmol/L (22.0-26.0) H Arterial Blood Oxygen Saturation 80.8 % (95-100) *L Arterial Blood Base Excess 6.5 (-2-2) H Kvng Test Positive White Blood Count 15.3 K/UL (4.8-10.8) H Red Blood Count 4.02 M/UL (4.70-6.10) L Hemoglobin 12.6 G/DL (14.2-18.0) L Hematocrit 36.4 % (42.0-52.0) L Mean Corpuscular Volume 90 FL (80-99) Mean Corpuscular Hemoglobin 31.2 PG (27.0-31.0) H Mean Corpuscular Hemoglobin Concent 34.5 G/DL (32.0-36.0) Red Cell Distribution Width 13.9 % (11.6-14.8) Platelet Count 132 K/UL (150-450) L Mean Platelet Volume 7.1 FL (6.5-10.1) Neutrophils (%) (Auto) 56.7 % (45.0-75.0) Lymphocytes (%) (Auto) 20.5 % (20.0-45.0) Monocytes (%) (Auto) 18.2 % (1.0-10.0) H Eosinophils (%) (Auto) 4.2 % (0.0-3.0) H Basophils (%) (Auto) 0.5 % (0.0-2.0) Sodium Level Pending Potassium Level Pending Chloride Level Pending Carbon Dioxide Level Pending Blood Urea Nitrogen Pending Creatinine Pending Estimat Glomerular Filtration Rate Pending Glucose Level Pending Calcium Level Pending Current Medications Medications (Trade) Dose Ordered Sig/Ricardo Route PRN Reason Start Time Stop Time Status Last Admin Dose Admin Acetaminophen (Tylenol) 650 mg Q4H PRN GT MILD/TEMP 06/20/19 15:48 07/15/19 15:47 Donepezil HCl (Aricept) 5 mg DAILY ORAL 06/21/19 09:00 07/15/19 08:59 06/22/19 09:10 Gabapentin (Neurontin) 300 mg THREE TIMES A DAY ORAL 06/20/19 18:00 07/15/19 08:59 06/22/19 18:08 Hydroxychloroquine Sulfate (Plaquenil) 200 mg BID ORAL 06/22/19 18:00 06/26/19 09:01 06/22/19 18:08 Nitroglycerin (Ntg) 0.4 mg Q5M PRN SL Prn Chest Pain 06/20/19 15:49 07/15/19 15:48 Ondansetron HCl (Zofran) 4 mg Q6H PRN IVP Nausea & Vomiting 06/20/19 15:49 07/15/19 15:48 Polyethylene Glycol (Miralax) 17 gm DAILYPRN PRN ORAL Constipation 06/20/19 15:49 07/20/19 15:48 Promethazine HCl/ Codeine (Phenergan with Codeine) 5 ml Q4H PRN ORAL For Cough 06/20/19 15:50 07/15/19 15:49 Quetiapine Fumarate (SEROqueL) 100 mg TWICE A DAY ORAL 06/20/19 18:00 07/30/19 08:59 06/22/19 09:10 Rivaroxaban (Xarelto) 20 mg DAILY ORAL 06/21/19 09:00 09/13/19 08:59 06/22/19 09:10 Temazepam (Restoril) 15 mg HSPRN PRN ORAL Insomnia 06/20/19 21:00 06/25/19 20:59 Pili Lenz MD Jun 23, 2019 07:14
[2019-06-23 07:25] LABS: ANION GAP 3 mmol/L (5-15); BLOOD UREA NITROGEN 30 mg/dL (7-18); CALCIUM 9.4 MG/DL (8.5-10.1); CARBON DIOXIDE 34 MMOL/L (21-32); CHLORIDE 101 MMOL/L (98-107); CREATININE 1.2 MG/DL (0.55-1.30); POTASSIUM 5.1 MMOL/L (3.5-5.1); SODIUM 138 MMOL/L (136-145)
[2019-06-23 08:00] VITALS: BP 136/88
--- NOTE | 2019-06-23 09:16 | Diagnostic Imaging Report ---
Indication: Shortness of breath Technique: One view of the chest Comparison: 06/15/2019 Findings: There is fairly extensive bilateral mostly interstitial disease, markedly increased from the previous study. The pleural spaces are clear. The heart size is normal. Impression: Bilateral interstitial disease, fairly extensive and markedly increased from prior 06/15/2019. This could indicate infectious or noninfectious inflammatory infiltrates, versus edema, among many other possibilities. Correlate with clinical findings
--- NOTE | 2019-06-23 09:32 | General Progress Note ---
Assessment/Plan Problem List: (1) DM (diabetes mellitus) ICD Codes: E11.9 - Type 2 diabetes mellitus without complications SNOMED: 24564391 (2) Feeding by G-tube ICD Codes: Z93.1 - Gastrostomy status SNOMED: 057569941, 727351990, 316182823 (3) LILIAM (acute kidney injury) ICD Codes: N17.9 - Acute kidney failure, unspecified SNOMED: 04849438, 2912224 (4) Sepsis ICD Codes: A41.9 - Sepsis, unspecified organism SNOMED: 66069701, 095579333 Qualifiers: Qualified Codes: A41.9 - Sepsis, unspecified organism; R65.20 - Severe sepsis without septic shock; N17.9 - Acute kidney failure, unspecified (5) PVD (peripheral vascular disease) ICD Codes: I73.9 - Peripheral vascular disease, unspecified SNOMED: 768399271 (6) Encounter for PEG (percutaneous endoscopic gastrostomy) ICD Codes: Z43.1 - Encounter for attention to gastrostomy SNOMED: 840509286, 303221043 (7) Suspected COVID-19 virus infection ICD Codes: R68.89 - Other general symptoms and signs SNOMED: 706102102 Status: unchanged Assessment/Plan: o2 pulm tx abx pt diet cbc bmp am Subjective Constitutional: Reports: weakness Allergies: Coded Allergies: No Known Allergies (Unverified , 01/24/19) All Systems: reviewed and negative except above Subjective o2nc sleep Objective Last 24 Hour Vital Signs Date Time Temp Pulse Resp B/P (MAP) Pulse Ox O2 Delivery O2 Flow Rate FiO2 06/23/19 04:00 Non-Rebreather 15.0 06/23/19 04:00 97.5 94 18 110/73 (85) 99 06/23/19 04:00 90 06/23/19 00:00 Non-Rebreather 15.0 06/23/19 00:00 97.5 94 16 100/70 (80) 100 06/22/19 23:37 85 06/22/19 20:00 Non-Rebreather 15.0 06/22/19 20:00 97.3 94 16 100/70 (80) 100 06/22/19 19:29 89 06/22/19 16:00 97.2 94 16 124/70 (88) 100 06/22/19 16:00 Non-Rebreather 15.0 06/22/19 15:32 80 06/22/19 12:00 96.8 99 16 98/62 (74) 93 06/22/19 12:00 Nasal Cannula 2.0 06/22/19 11:40 98 Intake and Output 06/22/19 06/23/19 19:00 07:00 Intake Total 870 ml 700 ml Output Total 1200 ml 430 ml Balance -330 ml 270 ml Intake Free Water 50 ml 150 ml Tube Feeding 600 ml 550 ml Other 220 ml Output Urine Total 1200 ml 430 ml Laboratory Tests 06/22/19 15:34: Arterial Blood pH 7.418, Arterial Blood Partial Pressure CO2 51.1H, Arterial Blood Partial Pressure O2 44.2*L, Arterial Blood HCO3 32.3H, Arterial Blood Oxygen Saturation 80.8*L, Arterial Blood Base Excess 6.5H, Kvng Test Positive 06/23/19 05:30: White Blood Count 15.3H, Red Blood Count 4.02L, Hemoglobin 12.6L, Hematocrit 36.4L, Mean Corpuscular Volume 90, Mean Corpuscular Hemoglobin 31.2H, Mean Corpuscular Hemoglobin Concent 34.5, Red Cell Distribution Width 13.9, Platelet Count 132L, Mean Platelet Volume 7.1, Neutrophils (%) (Auto) 56.7, Lymphocytes ( %) (Auto) 20.5, Monocytes (%) (Auto) 18.2H, Eosinophils (%) (Auto) 4.2H, Basophils (%) (Auto) 0.5, Sodium Level 138, Potassium Level 5.1, Chloride Level 101, Carbon Dioxide Level 34H, Anion Gap 3L, Blood Urea Nitrogen 30H, Creatinine 1.2, Estimat Glomerular Filtration Rate > 60, Glucose Level 119H, Calcium Level 9.4 Height (Feet): 5 Height (Inches): 9.00 Weight (Pounds): 150 General Appearance: lethargic EENT: normal ENT inspection Neck: normal alignment Cardiovascular: normal rate, regular rhythm Respiratory/Chest: no accessory muscle use Extremities: normal inspection Skin: normal pigmentation Corey Short DO Jun 23, 2019 09:32
--- NOTE | 2019-06-23 10:46 | Pulmonology Progress Note ---
Assessment/Plan Problems: (1) 2019 novel coronavirus disease (COVID-19) (2) HCAP (healthcare-associated pneumonia) (3) Systolic heart failure (4) DM (diabetes mellitus) (5) cardiomyopathy with EF of 35% (6) Schizophrenia Assessment/Plan cxr:Impression: Bilateral interstitial disease, fairly extensive and markedly increased from prior 06/15/2019. This could indicate infectious or noninfectious inflammatory infiltrates, versus edema, among many other possibilities. Correlate with clinical findings afebrile now wbc decreasing, normal now second Covid-19 came back positive on Hydroxychloroquine respiratory isolation respiratory treatment titrate fio2 to sat of 92% tao culture iv abx dvt prophylaxis. Subjective ROS Limited/Unobtainable: No Constitutional: Reports: no symptoms HEENT: Repors: no symptoms Allergies: Coded Allergies: No Known Allergies (Unverified , 01/24/19) Objective Last 24 Hour Vital Signs Date Time Temp Pulse Resp B/P (MAP) Pulse Ox O2 Delivery O2 Flow Rate FiO2 06/23/19 08:00 92 06/23/19 04:00 Non-Rebreather 15.0 06/23/19 04:00 97.5 94 18 110/73 (85) 99 06/23/19 04:00 90 06/23/19 00:00 Non-Rebreather 15.0 06/23/19 00:00 97.5 94 16 100/70 (80) 100 06/22/19 23:37 85 06/22/19 20:00 Non-Rebreather 15.0 06/22/19 20:00 97.3 94 16 100/70 (80) 100 06/22/19 19:29 89 06/22/19 16:00 97.2 94 16 124/70 (88) 100 06/22/19 16:00 Non-Rebreather 15.0 06/22/19 15:32 80 06/22/19 12:00 96.8 99 16 98/62 (74) 93 06/22/19 12:00 Nasal Cannula 2.0 06/22/19 11:40 98 Intake and Output 06/22/19 06/23/19 19:00 07:00 Intake Total 870 ml 700 ml Output Total 1200 ml 430 ml Balance -330 ml 270 ml Intake Free Water 50 ml 150 ml Tube Feeding 600 ml 550 ml Other 220 ml Output Urine Total 1200 ml 430 ml Objective General Appearance: WD/WN HEENT: normocephalic Respiratory/Chest: chest wall non-tender, lungs clear Cardiovascular: normal peripheral pulses, normal rate, no gallop/murmur Abdomen: soft, non tender, non distended Extremities: no clubbing Skin: no rash, no lesions Laboratory Tests 06/22/19 15:34: Arterial Blood pH 7.418, Arterial Blood Partial Pressure CO2 51.1H, Arterial Blood Partial Pressure O2 44.2*L, Arterial Blood HCO3 32.3H, Arterial Blood Oxygen Saturation 80.8*L, Arterial Blood Base Excess 6.5H, Kvng Test Positive 06/23/19 05:30: White Blood Count 15.3H, Red Blood Count 4.02L, Hemoglobin 12.6L, Hematocrit 36.4L, Mean Corpuscular Volume 90, Mean Corpuscular Hemoglobin 31.2H, Mean Corpuscular Hemoglobin Concent 34.5, Red Cell Distribution Width 13.9, Platelet Count 132L, Mean Platelet Volume 7.1, Neutrophils (%) (Auto) 56.7, Lymphocytes ( %) (Auto) 20.5, Monocytes (%) (Auto) 18.2H, Eosinophils (%) (Auto) 4.2H, Basophils (%) (Auto) 0.5, Sodium Level 138, Potassium Level 5.1, Chloride Level 101, Carbon Dioxide Level 34H, Anion Gap 3L, Blood Urea Nitrogen 30H, Creatinine 1.2, Estimat Glomerular Filtration Rate > 60, Glucose Level 119H, Calcium Level 9.4 Current Medications Medications (Trade) Dose Ordered Sig/Ricardo Route PRN Reason Start Time Stop Time Status Last Admin Dose Admin Acetaminophen (Tylenol) 650 mg Q4H PRN GT MILD/TEMP 06/20/19 15:48 07/15/19 15:47 Donepezil HCl (Aricept) 5 mg DAILY ORAL 06/21/19 09:00 07/15/19 08:59 06/22/19 09:10 Gabapentin (Neurontin) 300 mg THREE TIMES A DAY ORAL 06/20/19 18:00 07/15/19 08:59 06/22/19 18:08 Hydroxychloroquine Sulfate (Plaquenil) 200 mg BID ORAL 06/22/19 18:00 06/26/19 09:01 06/22/19 18:08 Nitroglycerin (Ntg) 0.4 mg Q5M PRN SL Prn Chest Pain 06/20/19 15:49 07/15/19 15:48 Ondansetron HCl (Zofran) 4 mg Q6H PRN IVP Nausea & Vomiting 06/20/19 15:49 07/15/19 15:48 Polyethylene Glycol (Miralax) 17 gm DAILYPRN PRN ORAL Constipation 06/20/19 15:49 07/20/19 15:48 Promethazine HCl/ Codeine (Phenergan with Codeine) 5 ml Q4H PRN ORAL For Cough 06/20/19 15:50 07/15/19 15:49 Quetiapine Fumarate (SEROqueL) 100 mg TWICE A DAY ORAL 06/20/19 18:00 07/30/19 08:59 06/22/19 09:10 Rivaroxaban (Xarelto) 20 mg DAILY ORAL 06/21/19 09:00 09/13/19 08:59 06/22/19 09:10 Temazepam (Restoril) 15 mg HSPRN PRN ORAL Insomnia 06/20/19 21:00 06/25/19 20:59 Ron Anthony MD Jun 23, 2019 10:46
[2019-06-23] MEDS: Xarelto 10mg tab ORAL SCH (10:57)
[2019-06-23] MEDS: Donepezil 5mg Tab ORAL SCH (10:58)
[2019-06-23 12:00] VITALS: BP 93/40
--- NOTE | 2019-06-23 13:54 | Surgery Progress Note ---
Surgery Progress Note Subjective Additional Comments ill appearing wbc 15k cxr reviewed and bad appreciate pulm input on hdroxy Objective Last 24 Hour Vital Signs Date Time Temp Pulse Resp B/P (MAP) Pulse Ox O2 Delivery O2 Flow Rate FiO2 06/23/19 12:32 102 06/23/19 12:00 98.1 102 22 93/40 (57) 100 06/23/19 12:00 Non-Rebreather 15.0 06/23/19 08:00 Non-Rebreather 15.0 06/23/19 08:00 96.1 98 23 136/88 (104) 99 06/23/19 08:00 92 06/23/19 04:00 Non-Rebreather 15.0 06/23/19 04:00 97.5 94 18 110/73 (85) 99 06/23/19 04:00 90 06/23/19 00:00 Non-Rebreather 15.0 06/23/19 00:00 97.5 94 16 100/70 (80) 100 06/22/19 23:37 85 06/22/19 20:00 Non-Rebreather 15.0 06/22/19 20:00 97.3 94 16 100/70 (80) 100 06/22/19 19:29 89 06/22/19 16:00 97.2 94 16 124/70 (88) 100 06/22/19 16:00 Non-Rebreather 15.0 06/22/19 15:32 80 I&O Intake and Output 06/22/19 06/23/19 19:00 07:00 Intake Total 870 ml 700 ml Output Total 1200 ml 430 ml Balance -330 ml 270 ml Intake Free Water 50 ml 150 ml Tube Feeding 600 ml 550 ml Other 220 ml Output Urine Total 1200 ml 430 ml Dressing: other Wound: other Drains: other Cardiovascular: RSR Respiratory: decreased breath sounds Abdomen: soft, non-tender, present bowel sounds Extremities: no cyanosis, other Laboratory Tests Test 06/22/19 15:34 06/23/19 05:30 Arterial Blood pH 7.418 (7.350-7.450) Arterial Blood Partial Pressure CO2 51.1 mmHg (35.0-45.0) H Arterial Blood Partial Pressure O2 44.2 mmHg (75.0-100.0) Arterial Blood HCO3 32.3 mmol/L (22.0-26.0) H Arterial Blood Oxygen Saturation 80.8 % (95-100) *L Arterial Blood Base Excess 6.5 (-2-2) H Kvng Test Positive White Blood Count 15.3 K/UL (4.8-10.8) H Red Blood Count 4.02 M/UL (4.70-6.10) L Hemoglobin 12.6 G/DL (14.2-18.0) L Hematocrit 36.4 % (42.0-52.0) L Mean Corpuscular Volume 90 FL (80-99) Mean Corpuscular Hemoglobin 31.2 PG (27.0-31.0) H Mean Corpuscular Hemoglobin Concent 34.5 G/DL (32.0-36.0) Red Cell Distribution Width 13.9 % (11.6-14.8) Platelet Count 132 K/UL (150-450) L Mean Platelet Volume 7.1 FL (6.5-10.1) Neutrophils (%) (Auto) 56.7 % (45.0-75.0) Lymphocytes (%) (Auto) 20.5 % (20.0-45.0) Monocytes (%) (Auto) 18.2 % (1.0-10.0) H Eosinophils (%) (Auto) 4.2 % (0.0-3.0) H Basophils (%) (Auto) 0.5 % (0.0-2.0) Sodium Level 138 MMOL/L (136-145) Potassium Level 5.1 MMOL/L (3.5-5.1) Chloride Level 101 MMOL/L (98-107) Carbon Dioxide Level 34 MMOL/L (21-32) H Anion Gap 3 mmol/L (5-15) L Blood Urea Nitrogen 30 mg/dL (7-18) H Creatinine 1.2 MG/DL (0.55-1.30) Estimat Glomerular Filtration Rate > 60 mL/min (>60) Glucose Level 119 MG/DL (74-106) H Calcium Level 9.4 MG/DL (8.5-10.1) Plan Problems: (1) Sepsis Assessment & Plan: This is a 68-year-old male that presented with fevers, leukocytosis, lactic acidosis. Patient septic and requiring work-up care and management. COPD ID evaluation. IV antibiotics per infectious disease. IV fluid hydration. Lactic improving with hydration. Patient awake alert responsive otherwise comfortable but does have wounds that are very tender. Wounds unlikely etiology of infection. Pending microbiology. Labs reviewed. improved covid neg second covid positive Findings: There is fairly extensive bilateral mostly interstitial disease, markedly increased from the previous study. The pleural spaces are clear. The heart size is normal. Impression: Bilateral interstitial disease, fairly extensive and markedly increased from prior 06/15/2019. This could indicate infectious or noninfectious inflammatory infiltrates, versus edema, among many other possibilities. Correlate with clinical findings on aviral ill appearing prognosis guarded (2) DM (diabetes mellitus) (3) Feeding by G-tube Assessment & Plan: DAILY ESTIMATED NEEDS: Needs based on Pulmonary, sepsis, wounds 69kg 25-30 kcals/kg 8477-5345 total kcals 1.25-2 g protein/kg 86-138 g total protein 25-30 mL/kg 4122-9609 total fluid mLs NUTRITION DIAGNOSIS: *Swallowing difficulty R/T dysphagia, confusion as evidenced by s/p PEG placement, on oral diet at SNF, now w/ recs for GT feeds pending VSS. CURRENT DIET:NPO PO DIET RECOMMENDATIONS: IF ORAL GRAT INDICATED: rec liberalized REGULAR/ texture per RUNWAY MODEL ENTERAL NUTRITION RECOMMENDATIONS: Glucerna 1.5 @ 50ml/hr x24 hrs to provide 1200ml, 1800 kcal, 99g pro, 911ml free H2o As medically able, rec start GT feeds to meet est nutritional needs - Initiate Glucerna 1.5 @ 20ml/hr x 6 hrs - Advance 10ml q 4-6 hrs as tolerated to goal rate. - HOB over 30 degrees/ water flush per MD ADDITIONAL RECOMMENDATIONS: 1) Per SNF: HT 71 inches, rec calibrated bed scale wts for eval 2) Updated HgA1C for eval 3) Wound care: w/ diet, rec DANIELA BID (via GT or oral) + Vit C 250mg BID F/up w/ WC eval 4) RUNWAY MODEL re-eval for possible oral grat w/ GT feeds . (4) LILIAM (acute kidney injury) (5) Suspected COVID-19 virus infection (6) Thrombocytopenia (7) DVT (deep venous thrombosis) (8) HCAP (healthcare-associated pneumonia) (9) Acute DVT (deep venous thrombosis) (10) Wound, open Assessment & Plan: Pt presented on admission with two wounds of unknown etiology, Pressure injury sacrum and both heels. Generalized rash which is pink and pimple-like in appearance, scaled rash noted to both distal lower extremities and both feet. 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 (L)1cm x (W)1.8cm x (D)1.2cm. Yellow slough noted along hartmann of wound. Edges and periwound erythematous. NO elevation in skin temp or induration periwound. Small amt haemopurulent exudate noted. Full thickness stage 4 wound noted to upper back(L)0.7cm x (W)1.9cm, tunneled depth 0.9cm. Mixed slough and erythema noted along hartmann of wound.Small amt seropurulent exudate. No odor noted. Marginal erythema without induration or elevation in skin temp periwound. Non-blanching erythema without induration sacrum. Historical scars noted to R and L ischial tuberosities. Unstageable pressure injury noted to L heel(L)1.5cm x (W)2.5cm. 100% dry eschar noted at base of heel. Edges adherent,erythematous and dry. Periwound heel is boggy with non-blanching erythema. R heel is boggy with non-blanchable erythema. Non-blanchable erythema without induration or fluctuance medial/lateral L foot.( L)1.5cm x (W)1.5cm. Non-blanchable erythema without induration or fluctuance noted to distal/ lateral L foot. Non-blanchable erythema without fluctuance or induration R lateral Malleolus(L) 2cm x (W)1.5cm. Tx.Plan: Cleanse wound upper back with Saline. Loosely pack with Therahoney impregnated kerlix . Apply Cavilon Skin Barrier periwound. Cover with Optifoam drsg Daily and prn. Cleanse wound L Brachial with Saline. Loosely pack with Therahoney impregnated Kerlix. Apply Cavilon Skin Barrier periwound. Cover with Optifoam drsg Daily and prn. Apply Moisture Barrier Paste to sacrum. Cover with Optifoam drsg. Change every 3 days and prn. Apply Betadine to L heel. Cover with Optifoam drsg. Change every 3 days and prn Apply Cavilon Skin Barrier to R heel, R malleolus. Cover each site with Optifoam drsg. Change every 7 days and prn. Apply Cavilon Skin Barrier to medial/lateral, and Distal/Lateral L foot. Cover with Optifoam drsg. Change every 7 days and prn. Reposition at least every 2hours or as tolerated. Off-load heels with pillow. APM/JELLY Mattress overlay. (11) Chronic kidney disease (12) Malignant neoplasm of right kidney (13) PVD (peripheral vascular disease) (14) Schizophrenia (15) Acute respiratory failure (16) Septic shock (17) Systolic heart failure (18) Renal failure (ARF), acute on chronic (19) Bradyarrhythmia (20) Dysphagia (21) Encounter for PEG (percutaneous endoscopic gastrostomy) (22) cardiomyopathy with EF of 35% Mauricio Anne Jun 23, 2019 13:54
[2019-06-23 16:44] VITALS: BP 96/46
[2019-06-23 20:00] VITALS: BP 97/57
[2019-06-24] VITALS (11 sets, daily range): BP systolic 53–135; BP diastolic 22–93
[2019-06-24 06:07] LABS: HEMATOCRIT 34.5 % (42.0-52.0); HEMOGLOBIN 11.9 G/DL (14.2-18.0); MEAN CORPUSCULAR VOLUME 91 FL (80-99); PLATELET COUNT 142 K/UL (150-450); RED BLOOD COUNT 3.79 M/UL (4.70-6.10); RED CELL DISTRIBUTION WIDTH 13.8 % (11.6-14.8); WHITE BLOOD COUNT 11.7 K/UL (4.8-10.8)
[2019-06-24 06:30] LABS: ANION GAP 3 mmol/L (5-15); BLOOD UREA NITROGEN 31 mg/dL (7-18); CALCIUM 8.7 MG/DL (8.5-10.1); CARBON DIOXIDE 35 MMOL/L (21-32); CHLORIDE 102 MMOL/L (98-107); CREATININE 1.3 MG/DL (0.55-1.30); POTASSIUM 5.1 MMOL/L (3.5-5.1); SODIUM 140 MMOL/L (136-145)
--- NOTE | 2019-06-24 07:10 | Infectious Diseases Prog Note ---
Assessment/Plan Assessment/Plan A: Fever, SP Leukocytosis, recurrent Sepsis, improving Elevated lactate, SP Confirmed COVID-19 PNA, on rx CXR: Right upper lobe and left perihilar mild interstitial opacities. This is nonspecific, could indicate infectious interstitial disease is, residual chronic interstitial disease, or mild pulmonary edema, among many other possibilities flu swab negative First SARS-CoV PCR negative Second SARS-CoV PCR positive Probable Scabies, sp rx r/o bacteremia BCx: ngtd unlikely UTI UA neg Multiple pressure injuries h/o MRSA pneumonia GERD DM Schizophrenia HTN [place] resident COPD Tobacco abuse Kidney cancer OA CKD Anemia PVD CHF Plan: DC Plaquenil #4 given prolonged QTc. will avoid azithromycin since QTc 424>>451> >453>>476 06/14 SP Permethrin #1, repeat 06/21 #2 06/20 SP cefepime/vanc #7 06/14 SP Levaquin #1 f/u bcx monitor temp and CBC monitor resp status continue isolation DW RN Subjective Allergies: Coded Allergies: No Known Allergies (Unverified , 01/24/19) Subjective Afebrile still on 15L NRB Leukocytosis better Objective Vital Signs Last 24 Hour Vital Signs Date Time Temp Pulse Resp B/P (MAP) Pulse Ox O2 Delivery O2 Flow Rate FiO2 06/24/19 04:00 Non-Rebreather 15.0 06/24/19 04:00 97.7 98 22 97/52 (67) 97 06/24/19 03:36 102 06/24/19 00:00 98 06/24/19 00:00 Non-Rebreather 15.0 06/24/19 00:00 97.7 98 22 109/51 (70) 98 06/23/19 20:00 98.2 107 23 97/57 (70) 99 06/23/19 20:00 Non-Rebreather 15.0 06/23/19 19:03 109 06/23/19 16:44 98.2 108 23 96/46 (63) 99 06/23/19 16:00 Non-Rebreather 15.0 06/23/19 16:00 102 06/23/19 12:32 102 06/23/19 12:00 98.1 102 22 93/40 (57) 100 06/23/19 12:00 Non-Rebreather 15.0 06/23/19 08:00 Non-Rebreather 15.0 06/23/19 08:00 96.1 98 23 136/88 (104) 99 06/23/19 08:00 92 Height (Feet): 5 Height (Inches): 9.00 Weight (Pounds): 150 Laboratory Tests Test 06/24/19 05:30 White Blood Count 11.7 K/UL (4.8-10.8) H Red Blood Count 3.79 M/UL (4.70-6.10) L Hemoglobin 11.9 G/DL (14.2-18.0) L Hematocrit 34.5 % (42.0-52.0) L Mean Corpuscular Volume 91 FL (80-99) Mean Corpuscular Hemoglobin 31.4 PG (27.0-31.0) H Mean Corpuscular Hemoglobin Concent 34.5 G/DL (32.0-36.0) Red Cell Distribution Width 13.8 % (11.6-14.8) Platelet Count 142 K/UL (150-450) L Mean Platelet Volume 6.5 FL (6.5-10.1) Neutrophils (%) (Auto) % (45.0-75.0) Lymphocytes (%) (Auto) % (20.0-45.0) Monocytes (%) (Auto) % (1.0-10.0) Eosinophils (%) (Auto) % (0.0-3.0) Basophils (%) (Auto) % (0.0-2.0) Neutrophils % (Manual) Pending Lymphocytes % (Manual) Pending Platelet Estimate Pending Platelet Morphology Pending Sodium Level 140 MMOL/L (136-145) Potassium Level 5.1 MMOL/L (3.5-5.1) Chloride Level 102 MMOL/L (98-107) Carbon Dioxide Level 35 MMOL/L (21-32) H Anion Gap 3 mmol/L (5-15) L Blood Urea Nitrogen 31 mg/dL (7-18) H Creatinine 1.3 MG/DL (0.55-1.30) Estimat Glomerular Filtration Rate 54.9 mL/min (>60) Glucose Level 135 MG/DL (74-106) H Calcium Level 8.7 MG/DL (8.5-10.1) Current Medications Medications (Trade) Dose Ordered Sig/Ricardo Route PRN Reason Start Time Stop Time Status Last Admin Dose Admin Acetaminophen (Tylenol) 650 mg Q4H PRN GT MILD/TEMP 06/20/19 15:48 07/15/19 15:47 Donepezil HCl (Aricept) 5 mg DAILY ORAL 06/21/19 09:00 07/15/19 08:59 06/23/19 10:58 Gabapentin (Neurontin) 300 mg THREE TIMES A DAY ORAL 06/20/19 18:00 07/15/19 08:59 06/23/19 17:39 Hydroxychloroquine Sulfate (Plaquenil) 200 mg BID ORAL 06/22/19 18:00 06/26/19 09:01 06/23/19 17:39 Nitroglycerin (Ntg) 0.4 mg Q5M PRN SL Prn Chest Pain 06/20/19 15:49 07/15/19 15:48 Ondansetron HCl (Zofran) 4 mg Q6H PRN IVP Nausea & Vomiting 06/20/19 15:49 07/15/19 15:48 Polyethylene Glycol (Miralax) 17 gm DAILYPRN PRN ORAL Constipation 06/20/19 15:49 07/20/19 15:48 Promethazine HCl/ Codeine (Phenergan with Codeine) 5 ml Q4H PRN ORAL For Cough 06/20/19 15:50 07/15/19 15:49 Quetiapine Fumarate (SEROqueL) 100 mg TWICE A DAY ORAL 06/20/19 18:00 07/30/19 08:59 06/23/19 17:39 Rivaroxaban (Xarelto) 20 mg DAILY ORAL 06/21/19 09:00 09/13/19 08:59 06/23/19 10:57 Temazepam (Restoril) 15 mg HSPRN PRN ORAL Insomnia 06/20/19 21:00 06/25/19 20:59 Pili Lenz MD Jun 24, 2019 07:10
[2019-06-24] MEDS: Donepezil 5mg Tab ORAL SCH (09:00)
--- NOTE | 2019-06-24 11:17 | Pulmonology Progress Note ---
Assessment/Plan Problems: (1) 2019 novel coronavirus disease (COVID-19) (2) HCAP (healthcare-associated pneumonia) (3) Systolic heart failure (4) DM (diabetes mellitus) (5) cardiomyopathy with EF of 35% (6) Schizophrenia Assessment/Plan doing better cxr:Impression: Bilateral interstitial disease, fairly extensive and markedly increased from prior 06/15/2019. This could indicate infectious or noninfectious inflammatory infiltrates, versus edema, among many other possibilities. Correlate with clinical findings afebrile now wbc decreasing, normal now second Covid-19 came back positive on Hydroxychloroquine respiratory isolation respiratory treatment titrate fio2 to sat of 92% tao culture iv abx dvt prophylaxis. Subjective ROS Limited/Unobtainable: Yes Constitutional: Reports: no symptoms HEENT: Repors: no symptoms Allergies: Coded Allergies: No Known Allergies (Unverified , 01/24/19) Objective Last 24 Hour Vital Signs Date Time Temp Pulse Resp B/P (MAP) Pulse Ox O2 Delivery O2 Flow Rate FiO2 06/24/19 08:00 Non-Rebreather 15.0 06/24/19 08:00 97.2 106 22 96/50 (65) 96 06/24/19 07:53 105 06/24/19 04:00 Non-Rebreather 15.0 06/24/19 04:00 97.7 98 22 97/52 (67) 97 06/24/19 03:36 102 06/24/19 00:00 98 06/24/19 00:00 Non-Rebreather 15.0 06/24/19 00:00 97.7 98 22 109/51 (70) 98 06/23/19 20:00 98.2 107 23 97/57 (70) 99 06/23/19 20:00 Non-Rebreather 15.0 06/23/19 19:03 109 06/23/19 16:44 98.2 108 23 96/46 (63) 99 06/23/19 16:00 Non-Rebreather 15.0 06/23/19 16:00 102 06/23/19 12:32 102 06/23/19 12:00 98.1 102 22 93/40 (57) 100 06/23/19 12:00 Non-Rebreather 15.0 Intake and Output 06/23/19 06/24/19 19:00 07:00 Intake Total 800 ml 700 ml Output Total 550 ml 400 ml Balance 250 ml 300 ml Intake Free Water 250 ml 150 ml Tube Feeding 550 ml 550 ml Output Urine Total 550 ml 400 ml Objective General Appearance: WD/WN HEENT: normocephalic Respiratory/Chest: chest wall non-tender, lungs clear Cardiovascular: normal peripheral pulses, normal rate, no gallop/murmur Abdomen: soft, non tender, non distended Extremities: no clubbing Skin: no rash, no lesions Laboratory Tests 06/24/19 05:30: White Blood Count 11.7H, Red Blood Count 3.79L, Hemoglobin 11.9L, Hematocrit 34.5L, Mean Corpuscular Volume 91, Mean Corpuscular Hemoglobin 31.4H, Mean Corpuscular Hemoglobin Concent 34.5, Red Cell Distribution Width 13.8, Platelet Count 142L, Mean Platelet Volume 6.5, Neutrophils (%) (Auto) , Lymphocytes (%) ( Auto) , Monocytes (%) (Auto) , Eosinophils (%) (Auto) , Basophils (%) (Auto) , Differential Total Cells Counted 100, Neutrophils % (Manual) 51, Lymphocytes % ( Manual) 21, Monocytes % (Manual) 20H, Eosinophils % (Manual) 7H, Basophils % ( Manual) 1, Band Neutrophils 0, Platelet Estimate DecreasedL, Platelet Morphology Normal, Anisocytosis 1+, Sodium Level 140, Potassium Level 5.1, Chloride Level 102, Carbon Dioxide Level 35H, Anion Gap 3L, Blood Urea Nitrogen 31H, Creatinine 1.3, Estimat Glomerular Filtration Rate 54.9, Glucose Level 135H , Calcium Level 8.7 Current Medications Medications (Trade) Dose Ordered Sig/Riacrdo Route PRN Reason Start Time Stop Time Status Last Admin Dose Admin Acetaminophen (Tylenol) 650 mg Q4H PRN GT MILD/TEMP 06/20/19 15:48 07/15/19 15:47 Donepezil HCl (Aricept) 5 mg DAILY ORAL 06/21/19 09:00 07/15/19 08:59 06/23/19 10:58 Gabapentin (Neurontin) 300 mg THREE TIMES A DAY ORAL 06/20/19 18:00 07/15/19 08:59 06/23/19 17:39 Hydroxychloroquine Sulfate (Plaquenil) 200 mg BID ORAL 06/22/19 18:00 06/26/19 09:01 06/23/19 17:39 Nitroglycerin (Ntg) 0.4 mg Q5M PRN SL Prn Chest Pain 06/20/19 15:49 07/15/19 15:48 Ondansetron HCl (Zofran) 4 mg Q6H PRN IVP Nausea & Vomiting 06/20/19 15:49 07/15/19 15:48 Polyethylene Glycol (Miralax) 17 gm DAILYPRN PRN ORAL Constipation 06/20/19 15:49 07/20/19 15:48 Promethazine HCl/ Codeine (Phenergan with Codeine) 5 ml Q4H PRN ORAL For Cough 06/20/19 15:50 07/15/19 15:49 Quetiapine Fumarate (SEROqueL) 100 mg TWICE A DAY ORAL 06/20/19 18:00 07/30/19 08:59 06/23/19 17:39 Rivaroxaban (Xarelto) 20 mg DAILY ORAL 06/21/19 09:00 09/13/19 08:59 06/23/19 10:57 Temazepam (Restoril) 15 mg HSPRN PRN ORAL Insomnia 06/20/19 21:00 06/25/19 20:59 Ron Anthony MD Jun 24, 2019 11:17
--- NOTE | 2019-06-24 12:34 | General Progress Note ---
Assessment/Plan Problem List: (1) DM (diabetes mellitus) ICD Codes: E11.9 - Type 2 diabetes mellitus without complications SNOMED: 85882993 (2) Feeding by G-tube ICD Codes: Z93.1 - Gastrostomy status SNOMED: 232005802, 249025578, 655687130 (3) LILIAM (acute kidney injury) ICD Codes: N17.9 - Acute kidney failure, unspecified SNOMED: 50077747, 8761904 (4) Sepsis ICD Codes: A41.9 - Sepsis, unspecified organism SNOMED: 88408251, 009461595 Qualifiers: Qualified Codes: A41.9 - Sepsis, unspecified organism; R65.20 - Severe sepsis without septic shock; N17.9 - Acute kidney failure, unspecified (5) PVD (peripheral vascular disease) ICD Codes: I73.9 - Peripheral vascular disease, unspecified SNOMED: 669658738 (6) Encounter for PEG (percutaneous endoscopic gastrostomy) ICD Codes: Z43.1 - Encounter for attention to gastrostomy SNOMED: 244931944, 479330699 (7) Suspected COVID-19 virus infection ICD Codes: R68.89 - Other general symptoms and signs SNOMED: 533432075 Status: unchanged Assessment/Plan: o2 pulm tx abx pt diet cbc bmp am Subjective Constitutional: Reports: weakness Allergies: Coded Allergies: No Known Allergies (Unverified , 01/24/19) All Systems: reviewed and negative except above Subjective o2nc sleep Objective Last 24 Hour Vital Signs Date Time Temp Pulse Resp B/P (MAP) Pulse Ox O2 Delivery O2 Flow Rate FiO2 06/24/19 12:00 Non-Rebreather 15.0 06/24/19 11:58 97.3 101 21 94/51 (65) 95 06/24/19 08:00 Non-Rebreather 15.0 06/24/19 08:00 97.2 106 22 96/50 (65) 96 06/24/19 07:53 105 06/24/19 04:00 Non-Rebreather 15.0 06/24/19 04:00 97.7 98 22 97/52 (67) 97 06/24/19 03:36 102 06/24/19 00:00 98 06/24/19 00:00 Non-Rebreather 15.0 06/24/19 00:00 97.7 98 22 109/51 (70) 98 06/23/19 20:00 98.2 107 23 97/57 (70) 99 06/23/19 20:00 Non-Rebreather 15.0 06/23/19 19:03 109 06/23/19 16:44 98.2 108 23 96/46 (63) 99 06/23/19 16:00 Non-Rebreather 15.0 06/23/19 16:00 102 Intake and Output 06/23/19 06/24/19 19:00 07:00 Intake Total 800 ml 750 ml Output Total 550 ml 800 ml Balance 250 ml -50 ml Intake Free Water 250 ml 150 ml Tube Feeding 550 ml 600 ml Output Urine Total 550 ml 800 ml Laboratory Tests 06/24/19 05:30: White Blood Count 11.7H, Red Blood Count 3.79L, Hemoglobin 11.9L, Hematocrit 34.5L, Mean Corpuscular Volume 91, Mean Corpuscular Hemoglobin 31.4H, Mean Corpuscular Hemoglobin Concent 34.5, Red Cell Distribution Width 13.8, Platelet Count 142L, Mean Platelet Volume 6.5, Neutrophils (%) (Auto) , Lymphocytes (%) ( Auto) , Monocytes (%) (Auto) , Eosinophils (%) (Auto) , Basophils (%) (Auto) , Differential Total Cells Counted 100, Neutrophils % (Manual) 51, Lymphocytes % ( Manual) 21, Monocytes % (Manual) 20H, Eosinophils % (Manual) 7H, Basophils % ( Manual) 1, Band Neutrophils 0, Platelet Estimate DecreasedL, Platelet Morphology Normal, Anisocytosis 1+, Sodium Level 140, Potassium Level 5.1, Chloride Level 102, Carbon Dioxide Level 35H, Anion Gap 3L, Blood Urea Nitrogen 31H, Creatinine 1.3, Estimat Glomerular Filtration Rate 54.9, Glucose Level 135H , Calcium Level 8.7 Height (Feet): 5 Height (Inches): 9.00 Weight (Pounds): 150 General Appearance: lethargic EENT: normal ENT inspection Neck: normal alignment Cardiovascular: normal rate, regular rhythm Respiratory/Chest: no accessory muscle use Extremities: normal inspection Edema: trace edema Corey Short ChiFloryMirna DO Jun 24, 2019 12:34
--- NOTE | 2019-06-24 14:32 | Surgery Progress Note ---
Surgery Progress Note Subjective Symptoms: worse, voiding well, passing flatus Objective Last 24 Hour Vital Signs Date Time Temp Pulse Resp B/P (MAP) Pulse Ox O2 Delivery O2 Flow Rate FiO2 06/24/19 12:00 Non-Rebreather 15.0 06/24/19 11:58 97.3 101 21 94/51 (65) 95 06/24/19 08:00 Non-Rebreather 15.0 06/24/19 08:00 97.2 106 22 96/50 (65) 96 06/24/19 07:53 105 06/24/19 04:00 Non-Rebreather 15.0 06/24/19 04:00 97.7 98 22 97/52 (67) 97 06/24/19 03:36 102 06/24/19 00:00 98 06/24/19 00:00 Non-Rebreather 15.0 06/24/19 00:00 97.7 98 22 109/51 (70) 98 06/23/19 20:00 98.2 107 23 97/57 (70) 99 06/23/19 20:00 Non-Rebreather 15.0 06/23/19 19:03 109 06/23/19 16:44 98.2 108 23 96/46 (63) 99 06/23/19 16:00 Non-Rebreather 15.0 06/23/19 16:00 102 I&O Intake and Output 06/23/19 06/24/19 19:00 07:00 Intake Total 800 ml 750 ml Output Total 550 ml 800 ml Balance 250 ml -50 ml Intake Free Water 250 ml 150 ml Tube Feeding 550 ml 600 ml Output Urine Total 550 ml 800 ml Dressing: saturated Wound: other Drains: other Cardiovascular: RSR Respiratory: decreased breath sounds Abdomen: soft, non-tender, present bowel sounds Extremities: no tenderness, no cyanosis Laboratory Tests Test 06/24/19 05:30 White Blood Count 11.7 K/UL (4.8-10.8) H Red Blood Count 3.79 M/UL (4.70-6.10) L Hemoglobin 11.9 G/DL (14.2-18.0) L Hematocrit 34.5 % (42.0-52.0) L Mean Corpuscular Volume 91 FL (80-99) Mean Corpuscular Hemoglobin 31.4 PG (27.0-31.0) H Mean Corpuscular Hemoglobin Concent 34.5 G/DL (32.0-36.0) Red Cell Distribution Width 13.8 % (11.6-14.8) Platelet Count 142 K/UL (150-450) L Mean Platelet Volume 6.5 FL (6.5-10.1) Neutrophils (%) (Auto) % (45.0-75.0) Lymphocytes (%) (Auto) % (20.0-45.0) Monocytes (%) (Auto) % (1.0-10.0) Eosinophils (%) (Auto) % (0.0-3.0) Basophils (%) (Auto) % (0.0-2.0) Differential Total Cells Counted 100 Neutrophils % (Manual) 51 % (45-75) Lymphocytes % (Manual) 21 % (20-45) Monocytes % (Manual) 20 % (1-10) H Eosinophils % (Manual) 7 % (0-3) H Basophils % (Manual) 1 % (0-2) Band Neutrophils 0 % (0-8) Platelet Estimate Decreased L Platelet Morphology Normal Anisocytosis 1+ Sodium Level 140 MMOL/L (136-145) Potassium Level 5.1 MMOL/L (3.5-5.1) Chloride Level 102 MMOL/L (98-107) Carbon Dioxide Level 35 MMOL/L (21-32) H Anion Gap 3 mmol/L (5-15) L Blood Urea Nitrogen 31 mg/dL (7-18) H Creatinine 1.3 MG/DL (0.55-1.30) Estimat Glomerular Filtration Rate 54.9 mL/min (>60) Glucose Level 135 MG/DL (74-106) H Calcium Level 8.7 MG/DL (8.5-10.1) Plan Problems: (1) Sepsis Assessment & Plan: This is a 68-year-old male that presented with fevers, leukocytosis, lactic acidosis. Patient septic and requiring work-up care and management. COPD ID evaluation. IV antibiotics per infectious disease. IV fluid hydration. Lactic improving with hydration. Patient awake alert responsive otherwise comfortable but does have wounds that are very tender. Wounds unlikely etiology of infection. Pending microbiology. Labs reviewed. improved covid neg second covid positive Findings: There is fairly extensive bilateral mostly interstitial disease, markedly increased from the previous study. The pleural spaces are clear. The heart size is normal. Impression: Bilateral interstitial disease, fairly extensive and markedly increased from prior 06/15/2019. This could indicate infectious or noninfectious inflammatory infiltrates, versus edema, among many other possibilities. Correlate with clinical findings on aviral ill appearing prognosis guarded (2) DM (diabetes mellitus) (3) Feeding by G-tube Assessment & Plan: DAILY ESTIMATED NEEDS: Needs based on Pulmonary, sepsis, wounds 69kg 25-30 kcals/kg 3196-3128 total kcals 1.25-2 g protein/kg 86-138 g total protein 25-30 mL/kg 8415-2697 total fluid mLs NUTRITION DIAGNOSIS: *Swallowing difficulty R/T dysphagia, confusion as evidenced by s/p PEG placement, on oral diet at SNF, now w/ recs for GT feeds pending VSS. CURRENT DIET:NPO PO DIET RECOMMENDATIONS: IF ORAL GRAT INDICATED: rec liberalized REGULAR/ texture per [employer] ENTERAL NUTRITION RECOMMENDATIONS: Glucerna 1.5 @ 50ml/hr x24 hrs to provide 1200ml, 1800 kcal, 99g pro, 911ml free H2o As medically able, rec start GT feeds to meet est nutritional needs - Initiate Glucerna 1.5 @ 20ml/hr x 6 hrs - Advance 10ml q 4-6 hrs as tolerated to goal rate. - HOB over 30 degrees/ water flush per MD ADDITIONAL RECOMMENDATIONS: 1) Per SNF: HT 71 inches, rec calibrated bed scale wts for eval 2) Updated HgA1C for eval 3) Wound care: w/ diet, rec DANIELA BID (via GT or oral) + Vit C 250mg BID F/up w/ WC eval 4) [employer] re-eval for possible oral grat w/ GT feeds . (4) LILIAM (acute kidney injury) (5) Suspected COVID-19 virus infection (6) Thrombocytopenia (7) DVT (deep venous thrombosis) (8) HCAP (healthcare-associated pneumonia) (9) Acute DVT (deep venous thrombosis) (10) Wound, open Assessment & Plan: Pt presented on admission with two wounds of unknown etiology, Pressure injury sacrum and both heels. Generalized rash which is pink and pimple-like in appearance, scaled rash noted to both distal lower extremities and both feet. 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 (L)1cm x (W)1.8cm x (D)1.2cm. Yellow slough noted along hartmann of wound. Edges and periwound erythematous. NO elevation in skin temp or induration periwound. Small amt haemopurulent exudate noted. Full thickness stage 4 wound noted to upper back(L)0.7cm x (W)1.9cm, tunneled depth 0.9cm. Mixed slough and erythema noted along hartmann of wound.Small amt seropurulent exudate. No odor noted. Marginal erythema without induration or elevation in skin temp periwound. Non-blanching erythema without induration sacrum. Historical scars noted to R and L ischial tuberosities. Unstageable pressure injury noted to L heel(L)1.5cm x (W)2.5cm. 100% dry eschar noted at base of heel. Edges adherent,erythematous and dry. Periwound heel is boggy with non-blanching erythema. R heel is boggy with non-blanchable erythema. Non-blanchable erythema without induration or fluctuance medial/lateral L foot.( L)1.5cm x (W)1.5cm. Non-blanchable erythema without induration or fluctuance noted to distal/ lateral L foot. Non-blanchable erythema without fluctuance or induration R lateral Malleolus(L) 2cm x (W)1.5cm. Tx.Plan: Cleanse wound upper back with Saline. Loosely pack with Therahoney impregnated kerlix . Apply Cavilon Skin Barrier periwound. Cover with Optifoam drsg Daily and prn. Cleanse wound L Brachial with Saline. Loosely pack with Therahoney impregnated Kerlix. Apply Cavilon Skin Barrier periwound. Cover with Optifoam drsg Daily and prn. Apply Moisture Barrier Paste to sacrum. Cover with Optifoam drsg. Change every 3 days and prn. Apply Betadine to L heel. Cover with Optifoam drsg. Change every 3 days and prn Apply Cavilon Skin Barrier to R heel, R malleolus. Cover each site with Optifoam drsg. Change every 7 days and prn. Apply Cavilon Skin Barrier to medial/lateral, and Distal/Lateral L foot. Cover with Optifoam drsg. Change every 7 days and prn. Reposition at least every 2hours or as tolerated. Off-load heels with pillow. APM/JELLY Mattress overlay. (11) Chronic kidney disease (12) Malignant neoplasm of right kidney (13) PVD (peripheral vascular disease) (14) Schizophrenia (15) Acute respiratory failure (16) Septic shock (17) Systolic heart failure (18) Renal failure (ARF), acute on chronic (19) Bradyarrhythmia (20) Dysphagia (21) Encounter for PEG (percutaneous endoscopic gastrostomy) (22) cardiomyopathy with EF of 35% Mauricio Anne Jun 24, 2019 14:32
[2019-06-24] MEDS: Xarelto 10mg tab ORAL SCH (14:47)
[2019-06-24] MEDS ORDERED: Levophed 4mg/4mL Inj IV ONE (23:27)
[2019-06-25] VITALS (31 sets, daily range): BP systolic 46–154; BP diastolic 24–91
--- NOTE | 2019-06-25 00:20 | Emergency Room Report ---
History of Present Illness General Chief Complaint: Upper Respiratory Illness Source: Patient, Medical Record, PMD Present Illness HPI This is a 68-year-old male who was admitted for COVID-19 pneumonia. I was asked to evaluate the patient for respiratory distress and hypoxia. Patient was transferred to the ICU when I saw him. On my arrival, he has rest or distress with hypoxia. Agonal respiration. I proceeded to intubate the patient. He also became hypotensive so I placed a central line. Allergies: Coded Allergies: No Known Allergies (Unverified , 01/24/19) COVID-19 Screening Contact w/high risk pt: No Recent Travel to affected area: No Experienced COVID-19 symptoms?: Yes COVID-19 symptoms experienced: Fever (T>100.4F or >38C), Cough Patient History Past Medical History: see triage record, old chart reviewed Past Surgical History: other Pertinent Family History: none Social History: Denies: smoking Immunizations: other Reviewed Nursing Documentation: PMH: Agreed; PSxH: Agreed Nursing Documentation-PMH Past Medical History: No History, Except For Hx Cardiac Problems: Yes Hx Hypertension: Yes Hx COPD: Yes Hx Cancer: Yes Hx Gastrointestinal Problems: Yes Hx Dialysis: No - Chronic Renal Disease Hx Neurological Problems: Yes Hx Dementia: Yes Hx Memory Loss: Yes Hx Weakness: Yes Review of Systems Respiratory: Reports: shortness of breath All Other Systems: limited - Secondary to condition Physical Exam Vital Signs Date Time Temp Pulse Resp B/P (MAP) Pulse Ox O2 Delivery O2 Flow Rate FiO2 06/21/19 08:00 Nasal Cannula 2.0 06/21/19 08:00 99.9 91 21 120/55 (76) 95 06/24/19 23:36 100 Sp02 EP Interpretation: abnormal General Appearance: severe distress, Stupor Eyes: bilateral eye PERRL ENT: dry mucus membranes Neck: supple Respiratory: decreased breath sounds, accessory muscle use, crackles, rhonchi Cardiovascular #1: regular rate, rhythm Gastrointestinal: normal inspection, non tender Musculoskeletal: no lower extremity edema Neurologic: other - Grimace to painful stimuli Skin: normal color Procedures Critical Care Time Critical Care Time Critical care is mandated in this patient who presented with severe respiratory distress requiring intubation. Patient require my urgent intervention to attenuate the risks of metabolic collapse which may lead to cardiovascular collapse and . Critical care time is 35 minutes excluding any reportable procedure. Critical care time included evaluation, multiple reevaluation, looking at old charts, interpreting laboratory and diagnostic data, discussing case with patient and family and consultants, and charting. Central Line Central Line : Consent: Emergent Central Line Lumen: triple Maximal Sterile Barrier Tech: yes cap, yes mask, yes sterile gown, yes sterile gloves, yes large sterile sheet, yes hand hygiene, yes chlorhexidine prep Central Line Postion: femoral (R) Complications: none Central Line Post Position: sutured, good blood return Attempts: One Patient Tolerated: Well Complications: None Intubation Intubation : Consent: Verbal Intubation Method: orotracheal Tube Size (cm): 7.5 Medications: Etomidate, Succinylcholine Breath Sounds after Intubation: equal Intubation Complications: no complications Post Intubation Xray: Yes Progress/Xray Impression: multiple infiltrates. no ptx, ett in good position Attempts: One Patient Tolerated: Well Complications: None Medical Decision Making Diagnostic Impression: Primary Impression: Sepsis Qualified Codes: A41.9 - Sepsis, unspecified organism; R65.20 - Severe sepsis without septic shock; N17.9 - Acute kidney failure, unspecified Additional Impressions: Suspected COVID-19 virus infection HCAP (healthcare-associated pneumonia) LILIAM (acute kidney injury) Respiratory failure requiring intubation Pneumonia due to COVID-19 virus Septic shock ER Course Patient with respiratory failure requiring intubation secondary he has pneumonia secondary to coronavirus. Prognosis is poor. I discussed the case with Dr. Anthony. Chest X-Ray Diagnostic Results Chest X-Ray Diagnostic Results : Chest X-Ray Ordered: Yes # of Views/Limited/Complete: 1 View Indication: Shortness of Breath EP Interpretation: Yes Interpretation: no effusion, no pneumothorax, other - Tracheal tube in good position. Multi lobar infiltrates Impression: Other - s/p post intubation. Worsening infiltrates Electronically Signed by: Giovany Jarquin MD Other X-Ray Diagnostic Results Other X-Ray Diagnostic Results : X-Ray ordered: KUB # of Views/Limited Vs Complete: 1 View Indication: Pain EP Interpretation: Yes Interpretation: no dislocation, no soft tissue swelling, no fractures, other - NGT in good position Impression: Other - s/p NGT Electronically Signed by: Giovany Jarquin MD Last Vital Signs Date Time Temp Pulse Resp B/P (MAP) Pulse Ox O2 Delivery O2 Flow Rate FiO2 06/24/19 23:36 78 16 100 06/24/19 20:00 95.4 90/38 (55) 85 06/24/19 16:00 Non-Rebreather 15.0 Status: improved Disposition: ADMITTED INPATIENT Condition: Critical Referrals: Corey Short DO (PCP) Giovany Jarquin MD Jun 25, 2019 00:19
[2019-06-25] MEDS ORDERED: Morphine Sulfate 4mg/ml Inj (IV USE ONLY) IVP PRN (00:30)
[2019-06-25] MEDS: LORazepam Inj 2mg/ml 1ml IV PRN ×2 (00:49→09:30)
--- NOTE | 2019-06-25 00:50 | Diagnostic Imaging Report ---
Indication: Post intubation Technique: One view of the chest Comparison: 06/24/2019 Findings: Interim endotracheal intubation, endotracheal tube tip projecting approximately 2 cm above the cristina. Interim marked increase in bilateral infiltrates, with in particular increased airspace opacities seen in the left upper lobe, left perihilar region, right upper lobe and right infrahilar region. Increased mixed interstitial and airspace opacities are also seen diffusely elsewhere. The heart size is normal. No definite effusions. The heart size is normal. Impression: Satisfactory endotracheal intubation Worsening bilateral infiltrates, over one day This agrees with the preliminary interpretation provided overnight by [facility].
--- NOTE | 2019-06-25 00:51 | Diagnostic Imaging Report ---
Indication: Post femoral central line placement Technique: Supine view of the abdomen Comparison: 04/22/2019 Findings: The bowel gas pattern is unremarkable. There is a right femoral central venous catheter, tip which projects at the level of the mid common iliac vein. Degenerative changes of the hip joints are noted. Parenchymal disease is seen in the left lung base Impression: Satisfactory position of central venous catheter Other findings as noted This agrees with the preliminary interpretation provided overnight by [facility].
[2019-06-25] MEDS ORDERED: Levophed 4mg/4mL Inj IV ONE (04:02)
[2019-06-25 07:27] LABS: ANION GAP 18 mmol/L (5-15); BASOPHILS % (AUTO) 1.2 % (0.0-2.0); BLOOD UREA NITROGEN 39 mg/dL (7-18); CALCIUM 8.7 MG/DL (8.5-10.1); CARBON DIOXIDE 20 MMOL/L (21-32); CHLORIDE 107 MMOL/L (98-107); CREATININE 2.1 MG/DL (0.55-1.30); HEMATOCRIT 35.7 % (42.0-52.0); HEMOGLOBIN 11.4 G/DL (14.2-18.0); LYMPHOCYTES % (AUTO) 8.2 % (20.0-45.0); MEAN CORPUSCULAR VOLUME 97 FL (80-99); MONOCYTES % (AUTO) 7.1 % (1.0-10.0); NEUTROPHILS % (AUTO) 83.5 % (45.0-75.0); PLATELET COUNT 135 K/UL (150-450); POTASSIUM 3.9 MMOL/L (3.5-5.1); RED CELL DISTRIBUTION WIDTH 17.6 % (11.6-14.8); SODIUM 145 MMOL/L (136-145); WHITE BLOOD COUNT 12.4 K/UL (4.8-10.8)
--- NOTE | 2019-06-25 08:37 | Infectious Diseases Prog Note ---
Assessment/Plan Assessment/Plan A: Fever, SP Leukocytosis, recurrent Sepsis, improving Elevated lactate, SP Confirmed COVID-19 pneumonia PNA, on rx CXR: Right upper lobe and left perihilar mild interstitial opacities. This is nonspecific, could indicate infectious interstitial disease is, residual chronic interstitial disease, or mild pulmonary edema, among many other possibilities flu swab negative First SARS-CoV PCR negative Second SARS-CoV PCR positive Probable Scabies, sp rx r/o bacteremia BCx: ngtd unlikely UTI UA neg Multiple pressure injuries h/o MRSA pneumonia GERD DM Schizophrenia HTN IN resident COPD Tobacco abuse Kidney cancer OA CKD Anemia PVD CHF Plan: Zosyn and linezolid #1 pending sp cx and MRSA screen 06/23 DC Plaquenil #4 given prolonged QTc. will avoid azithromycin since QTc 424>>[id number]>>453>>476 06/14 SP Permethrin #1, repeat 06/21 #2 06/20 SP cefepime/vanc #7 06/14 SP Levaquin #1 f/u bcx monitor temp and CBC monitor resp status continue isolation FROILAN RN Subjective Allergies: Coded Allergies: No Known Allergies (Unverified , 01/24/19) Subjective Afebrile had a code and got intubated last night On max levophed Objective Vital Signs Last 24 Hour Vital Signs Date Time Temp Pulse Resp B/P (MAP) Pulse Ox O2 Delivery O2 Flow Rate FiO2 06/25/19 07:42 82 26 100 06/25/19 07:00 105/41 06/25/19 06:00 106/39 06/25/19 05:21 86 26 100 06/25/19 05:00 87/43 06/25/19 04:30 85 28 104/42 (62) 83 06/25/19 04:23 104/43 06/25/19 04:15 85 26 103/47 (65) 78 06/25/19 04:00 77 06/25/19 04:00 Mechanical Ventilator 06/25/19 04:00 97.0 86 27 102/42 (62) 78 06/25/19 03:45 85 25 108/41 (63) 79 06/25/19 03:30 85 26 80 06/25/19 03:21 86 26 100 06/25/19 03:15 86 28 106/45 (65) 83 06/25/19 03:00 79 27 110/91 (97) 81 06/25/19 02:10 104/43 06/25/19 02:00 86 27 99/35 (56) 80 06/25/19 01:32 82 16 100 06/25/19 01:30 87 27 111/51 (71) 82 06/25/19 01:15 87 27 111/46 (67) 83 06/25/19 01:00 79 27 111/46 (67) 84 06/25/19 00:45 79 27 108/38 (61) 84 06/25/19 00:30 79 27 104/54 (71) 84 06/25/19 00:19 54/38 06/25/19 00:15 79 27 110/91 (97) 81 06/25/19 00:00 79 27 92/42 (59) 78 06/25/19 00:00 Non-Rebreather 15.0 06/25/19 00:00 86 06/24/19 23:45 79 27 71/52 (58) 82 06/24/19 23:36 78 16 100 06/24/19 23:30 79 27 67/31 (43) 82 06/24/19 23:15 79 27 70/22 (38) 82 06/24/19 23:00 97.0 84 27 135/93 (107) 76 06/24/19 22:58 90 22 82 06/24/19 20:00 96 06/24/19 20:00 Non-Rebreather 15.0 06/24/19 20:00 95.4 100 20 90/38 (55) 85 06/24/19 16:00 Non-Rebreather 15.0 06/24/19 16:00 95.5 102 22 92/39 (56) 92 06/24/19 15:46 99 06/24/19 12:00 Non-Rebreather 15.0 06/24/19 12:00 102 06/24/19 11:58 97.3 101 21 94/51 (65) 95 Height (Feet): 5 Height (Inches): 9.00 Weight (Pounds): 150 Objective Gen: intubated. HEENT: ETT Resp: equal chest rise Abd: nondistended Neuro: not alert Laboratory Tests Test 06/24/19 20:27 06/25/19 01:25 06/25/19 04:17 06/25/19 06:00 Arterial Blood pH 7.241 (7.350-7.450) 7.098 (7.350-7.450) 7.112 (7.350-7.450) Arterial Blood Partial Pressure CO2 48.6 mmHg (35.0-45.0) H 53.8 mmHg (35.0-45.0) H 51.7 mmHg (35.0-45.0) H Arterial Blood Partial Pressure O2 45.4 mmHg (75.0-100.0) 53.7 mmHg (75.0-100.0) L 48.7 mmHg (75.0-100.0) Arterial Blood HCO3 20.4 mmol/L (22.0-26.0) L 16.3 mmol/L (22.0-26.0) *L 16.1 mmol/L (22.0-26.0) *L Arterial Blood Oxygen Saturation 77.2 % (95-100) *L 79.8 % (95-100) *L 76.7 % (95-100) *L Arterial Blood Base Excess -7 (-2-2) L -13.4 (-2-2) *L -13.2 (-2-2) *L Kvng Test Positive Positive Positive White Blood Count 12.4 K/UL (4.8-10.8) H Red Blood Count 3.70 M/UL (4.70-6.10) L Hemoglobin 11.4 G/DL (14.2-18.0) L Hematocrit 35.7 % (42.0-52.0) L Mean Corpuscular Volume 97 FL (80-99) Mean Corpuscular Hemoglobin 30.8 PG (27.0-31.0) Mean Corpuscular Hemoglobin Concent 31.9 G/DL (32.0-36.0) L Red Cell Distribution Width 17.6 % (11.6-14.8) H Platelet Count 135 K/UL (150-450) L Mean Platelet Volume 8.3 FL (6.5-10.1) Neutrophils (%) (Auto) 83.5 % (45.0-75.0) H Lymphocytes (%) (Auto) 8.2 % (20.0-45.0) L Monocytes (%) (Auto) 7.1 % (1.0-10.0) Eosinophils (%) (Auto) 0.0 % (0.0-3.0) Basophils (%) (Auto) 1.2 % (0.0-2.0) Sodium Level 145 MMOL/L (136-145) Potassium Level 3.9 MMOL/L (3.5-5.1) Chloride Level 107 MMOL/L (98-107) Carbon Dioxide Level 20 MMOL/L (21-32) L Anion Gap 18 mmol/L (5-15) H Blood Urea Nitrogen 39 mg/dL (7-18) H Creatinine 2.1 MG/DL (0.55-1.30) #H Estimat Glomerular Filtration Rate 31.6 mL/min (>60) Glucose Level 178 MG/DL (74-106) H Calcium Level 8.7 MG/DL (8.5-10.1) Current Medications Medications (Trade) Dose Ordered Sig/Ricardo Route PRN Reason Start Time Stop Time Status Last Admin Dose Admin Acetaminophen (Tylenol) 650 mg Q4H PRN GT MILD/TEMP 06/20/19 15:48 07/15/19 15:47 Donepezil HCl (Aricept) 5 mg DAILY ORAL 06/21/19 09:00 07/15/19 08:59 06/24/19 09:00 Gabapentin (Neurontin) 300 mg THREE TIMES A DAY ORAL 06/20/19 18:00 07/15/19 08:59 06/24/19 18:22 Linezolid 300 ml @ 300 mls/hr Q12HR IVPB 06/25/19 09:00 07/02/19 08:59 UNV Lorazepam (Ativan 2mg/ml 1ml) 2 mg Q4H PRN IV For Anxiety 06/25/19 00:30 07/02/19 00:29 06/25/19 00:49 Morphine Sulfate (Morphine Sulfate) 4 mg Q4H PRN IVP For Pain 06/25/19 00:30 07/02/19 00:29 Nitroglycerin (Ntg) 0.4 mg Q5M PRN SL Prn Chest Pain 06/20/19 15:49 07/15/19 15:48 Norepinephrine Bitartrate 8 mg/ Dextrose 508 ml @ 0 mls/hr Q24H IV 06/25/19 04:00 07/25/19 03:59 06/25/19 04:23 Ondansetron HCl (Zofran) 4 mg Q6H PRN IVP Nausea & Vomiting 06/20/19 15:49 07/15/19 15:48 Pantoprazole (Protonix) 40 mg DAILY IV 06/25/19 09:00 07/25/19 08:59 Piperacillin Sod/ Tazobactam Sod 3.375 gm/Sodium Chloride 110 ml @ 27.5 mls/hr EVERY 8 HOURS IVPB 06/25/19 08:45 06/30/19 08:44 UNV Polyethylene Glycol (Miralax) 17 gm DAILYPRN PRN ORAL Constipation 06/20/19 15:49 07/20/19 15:48 Promethazine HCl/ Codeine (Phenergan with Codeine) 5 ml Q4H PRN ORAL For Cough 06/20/19 15:50 07/15/19 15:49 Quetiapine Fumarate (SEROqueL) 100 mg TWICE A DAY ORAL 06/20/19 18:00 07/30/19 08:59 06/24/19 18:22 Rivaroxaban (Xarelto) 20 mg DAILY ORAL 06/21/19 09:00 09/13/19 08:59 06/24/19 14:47 Temazepam (Restoril) 15 mg HSPRN PRN ORAL Insomnia 06/20/19 21:00 06/25/19 20:59 Pili Lenz MD Jun 25, 2019 08:37
--- NOTE | 2019-06-25 08:55 | General Progress Note ---
Assessment/Plan Problem List: (1) DM (diabetes mellitus) ICD Codes: E11.9 - Type 2 diabetes mellitus without complications SNOMED: 19806832 (2) Feeding by G-tube ICD Codes: Z93.1 - Gastrostomy status SNOMED: 930532830, 377532360, 000478278 (3) LILIAM (acute kidney injury) ICD Codes: N17.9 - Acute kidney failure, unspecified SNOMED: 51883738, 9632429 (4) Sepsis ICD Codes: A41.9 - Sepsis, unspecified organism SNOMED: 69651336, 494233526 Qualifiers: Qualified Codes: A41.9 - Sepsis, unspecified organism; R65.20 - Severe sepsis without septic shock; N17.9 - Acute kidney failure, unspecified (5) PVD (peripheral vascular disease) ICD Codes: I73.9 - Peripheral vascular disease, unspecified SNOMED: 667968522 (6) Encounter for PEG (percutaneous endoscopic gastrostomy) ICD Codes: Z43.1 - Encounter for attention to gastrostomy SNOMED: 640093213, 938520355 (7) Suspected COVID-19 virus infection ICD Codes: R68.89 - Other general symptoms and signs SNOMED: 649665068 Status: unchanged Assessment/Plan: o2 pulm tx abx pt diet cbc bmp am Subjective Constitutional: Reports: weakness Allergies: Coded Allergies: No Known Allergies (Unverified , 01/24/19) All Systems: reviewed and negative except above Subjective intub sedated in icu Objective Last 24 Hour Vital Signs Date Time Temp Pulse Resp B/P (MAP) Pulse Ox O2 Delivery O2 Flow Rate FiO2 06/25/19 07:42 82 26 100 06/25/19 07:00 105/41 06/25/19 06:00 106/39 06/25/19 05:21 86 26 100 06/25/19 05:00 87/43 06/25/19 04:30 85 28 104/42 (62) 83 06/25/19 04:23 104/43 06/25/19 04:15 85 26 103/47 (65) 78 06/25/19 04:00 77 06/25/19 04:00 Mechanical Ventilator 06/25/19 04:00 97.0 86 27 102/42 (62) 78 06/25/19 03:45 85 25 108/41 (63) 79 06/25/19 03:30 85 26 80 06/25/19 03:21 86 26 100 06/25/19 03:15 86 28 106/45 (65) 83 06/25/19 03:00 79 27 110/91 (97) 81 06/25/19 02:10 104/43 06/25/19 02:00 86 27 99/35 (56) 80 06/25/19 01:32 82 16 100 06/25/19 01:30 87 27 111/51 (71) 82 06/25/19 01:15 87 27 111/46 (67) 83 06/25/19 01:00 79 27 111/46 (67) 84 06/25/19 00:45 79 27 108/38 (61) 84 06/25/19 00:30 79 27 104/54 (71) 84 06/25/19 00:19 54/38 06/25/19 00:15 79 27 110/91 (97) 81 06/25/19 00:00 79 27 92/42 (59) 78 06/25/19 00:00 Non-Rebreather 15.0 06/25/19 00:00 86 06/24/19 23:45 79 27 71/52 (58) 82 06/24/19 23:36 78 16 100 06/24/19 23:30 79 27 67/31 (43) 82 06/24/19 23:15 79 27 70/22 (38) 82 06/24/19 23:00 97.0 84 27 135/93 (107) 76 06/24/19 22:58 90 22 82 06/24/19 20:00 96 06/24/19 20:00 Non-Rebreather 15.0 06/24/19 20:00 95.4 100 20 90/38 (55) 85 06/24/19 16:00 Non-Rebreather 15.0 06/24/19 16:00 95.5 102 22 92/39 (56) 92 06/24/19 15:46 99 06/24/19 12:00 Non-Rebreather 15.0 06/24/19 12:00 102 06/24/19 11:58 97.3 101 21 94/51 (65) 95 Intake and Output 06/24/19 06/25/19 19:00 07:00 Intake Total 900 ml 763.6 ml Output Total 1350 ml 650 ml Balance -450 ml 113.6 ml Intake Free Water 300 ml IV Total 613.6 ml Tube Feeding 600 ml 150 ml Output Urine Total 1350 ml 650 ml # Bowel Movements 1 Laboratory Tests 06/24/19 20:27: Arterial Blood pH 7.241*L, Arterial Blood Partial Pressure CO2 48.6H, Arterial Blood Partial Pressure O2 45.4*L, Arterial Blood HCO3 20.4L, Arterial Blood Oxygen Saturation 77.2*L, Arterial Blood Base Excess -7L, Kvng Test Positive 06/25/19 01:25: Arterial Blood pH 7.098*L, Arterial Blood Partial Pressure CO2 53.8H, Arterial Blood Partial Pressure O2 53.7L, Arterial Blood HCO3 16.3*L, Arterial Blood Oxygen Saturation 79.8*L, Arterial Blood Base Excess -13.4*L, Kvng Test Positive 06/25/19 04:17: Arterial Blood pH 7.112*L, Arterial Blood Partial Pressure CO2 51.7H, Arterial Blood Partial Pressure O2 48.7*L, Arterial Blood HCO3 16.1*L, Arterial Blood Oxygen Saturation 76.7*L, Arterial Blood Base Excess -13.2*L, Kvng Test Positive 06/25/19 06:00: White Blood Count 12.4H, Red Blood Count 3.70L, Hemoglobin 11.4L, Hematocrit 35.7L, Mean Corpuscular Volume 97, Mean Corpuscular Hemoglobin 30.8, Mean Corpuscular Hemoglobin Concent 31.9L, Red Cell Distribution Width 17.6H, Platelet Count 135L, Mean Platelet Volume 8.3, Neutrophils (%) (Auto) 83.5H, Lymphocytes (%) (Auto) 8.2L, Monocytes (%) (Auto) 7.1, Eosinophils (%) (Auto) 0.0, Basophils (%) (Auto) 1.2, Sodium Level 145, Potassium Level 3.9, Chloride Level 107, Carbon Dioxide Level 20L, Anion Gap 18H, Blood Urea Nitrogen 39H, Creatinine 2.1#H, Estimat Glomerular Filtration Rate 31.6, Glucose Level 178H, Calcium Level 8.7 Height (Feet): 5 Height (Inches): 9.00 Weight (Pounds): 150 General Appearance: lethargic EENT: normal ENT inspection Neck: normal alignment Cardiovascular: normal rate, regular rhythm Extremities: normal inspection Skin: normal pigmentation Corey Short DO Jun 25, 2019 08:55
[2019-06-25] MEDS ORDERED: Pantoprazole Inj IV SCH (09:00)
[2019-06-25] MEDS: Xarelto 10mg tab ORAL SCH (09:30)
[2019-06-25] MEDS: Donepezil 5mg Tab ORAL SCH (09:30)
[2019-06-25] MEDS ORDERED: Piperacillin/Tazobactam 3.375 GM in NS 110 ML IVPB SCH (10:00)
[2019-06-25] MEDS ORDERED: Atropine Sulfate 0.4mg/ml inj 20ML ONE (10:28)
[2019-06-25] MEDS ORDERED: Etomidate 40mg/20ml Inj IV ONE (10:49)
[2019-06-25] MEDS ORDERED: Succinylcholine 20mg/ml 10ml vial ONE (10:49)
--- NOTE | 2019-06-25 10:59 | Emergency Room Report ---
History of Present Illness General Chief Complaint: Upper Respiratory Illness Source: Patient, Medical Record, PMD Present Illness Allergies: Coded Allergies: No Known Allergies (Unverified , 01/24/19) COVID-19 Screening Contact w/high risk pt: No Recent Travel to affected area: No Experienced COVID-19 symptoms?: Yes COVID-19 symptoms experienced: Fever (T>100.4F or >38C), Cough Nursing Documentation-PMH Past Medical History: No History, Except For Hx Cardiac Problems: Yes Hx Hypertension: Yes Hx COPD: Yes Hx Cancer: Yes Hx Gastrointestinal Problems: Yes Hx Dialysis: No - Chronic Renal Disease Hx Neurological Problems: Yes Hx Dementia: Yes Hx Memory Loss: Yes Hx Weakness: Yes Physical Exam Vital Signs Date Time Temp Pulse Resp B/P (MAP) Pulse Ox O2 Delivery O2 Flow Rate FiO2 06/21/19 08:00 Nasal Cannula 2.0 06/21/19 08:00 99.9 91 21 120/55 (76) 95 06/24/19 23:36 100 Procedures CPR/Code Blue CPR/Code Blue Narrative I was called upstairs to a CODE BLUE Patient was previously seen by ER physician recently had airway intubation and central line placed Upon arrival to the floor patient has received epinephrine And appears to have regained palpable pulses blood pressure 120/70 Patient is covid-19 positive X-ray shows worsening findings from previous on review of medical records at this time Further intervention was not required care handed back to the Yeast P[facility]her Medical Decision Making Diagnostic Impression: Primary Impression: Sepsis Additional Impressions: Pneumonia due to COVID-19 virus Suspected COVID-19 virus infection HCAP (healthcare-associated pneumonia) Septic shock Respiratory failure requiring intubation LILIAM (acute kidney injury) Last Vital Signs Date Time Temp Pulse Resp B/P (MAP) Pulse Ox O2 Delivery O2 Flow Rate FiO2 06/25/19 09:00 80 30 100 06/25/19 07:00 105/41 06/25/19 04:30 83 06/25/19 04:00 Mechanical Ventilator 06/25/19 04:00 97.0 06/25/19 00:00 15.0 Disposition: ADMITTED INPATIENT Condition: Critical Referrals: Corey Short DO (PCP) Tomeka Schofield DO Jun 25, 2019 10:59
--- NOTE | 2019-06-25 11:13 | General Progress Note ---
Progress Note Progress Note Pt coded twice since last night. He was being coded again when I walked to ICU. He is COVID positive with worsening pneumonia on cxr. It was difficult to keep his saturation above 90%. Considering the gravity of his illness and underlying medical conditions, he has a extremely poor prognosis. I reached out to head of ethics committee, Dr. Galvez as requested by the Primary physician. He agreed that pt should not be coded again. A few minutes later, pt 's heart stopped to beat. Ron Anthony MD Jun 25, 2019 11:13
[2019-06-25] MEDS ORDERED: D5W 275ml ONE (11:14)
[2019-06-25] MEDS ORDERED: NS 275ml ONE ×2 (11:14)
[2019-06-25] MEDS ORDERED: Tubing IV Secondary IV ONE (11:14)
[2019-06-25] MEDS ORDERED: NS 500ML ONE (11:14)
[2019-06-25] MEDS ORDERED: 1/2 NS 1000ml IV ONE (11:14)
[2019-06-25] MEDS ORDERED: D5W 550ml IV ONE (11:14)
[2019-06-25] MEDS ORDERED: D5 1/2NS 1000ml IV ONE (11:14)
--- NOTE | 2019-06-27 16:59 | Discharge Summary ---
Discharge Summary Discharge Summary _ DATE OF ADMISSION: June 15, 2019 DATE OF DISCHARGE: June BRIEF SUMMARY: Patient is an unfortunate 68-year-old male, who presented from [facility], due to fever and pneumonia. Patient has history of schizophrenia and high blood pressure. Patient had a cough and fever of 101. Patient was then sent to ED for further evaluation. Upon evaluation at ED, blood work showed WBC elevated to 21. Hemoglobin 12, hematocrit 36. BUN 23 and creatinine 1.7. Chest x-ray showed left lower lobe infiltrate. He was tested for covid 19. Patient was then admitted for IV antibiotics and fluid. He was placed on respiratory isolation. He was given nebulizer treatment. ID was consulted. He was started empirically on cefepime and vancomycin. He had rashes, and was treated empirically with permethrin. On admission, he had wounds of unknown etiology, pressure injury on the sacrum and both heels. He had full-thickness stage IV left brachial; full-thickness stage IV wound on the upper back; unstageable pressure injury to the left heel. He was given local wound care. He was placed on APM/JELLY overlay mattress with frequent repositioning and offloading. Covid testing was negative. Influenza swab negative. jail requested for a second covid testing. He spiked fever. He had recurrent leukocytosis. Second SARS-CoV PCR was positive. He completed cefepime and vancomycin. He was given Plaquenil. Unable to give azithromycin due to QT prolongation. He became more dyspneic and was placed on high flow O2. Chest x-ray showed bilateral interstitial disease, markedly increased. On June 25, 2019, patient had respiratory distress. He was transferred to ICU. He was orally intubated. He was hypotensive and central line was inserted. He was started on IV pressors. Chest x-ray post intubation showed worsening infiltrates. He was started on Zosyn and linezolid. CODE BLUE was called. Patient had poor prognosis. He was given epinephrine and regained a pulse. He then continued to code. Bioethics committee consulted and agreed that patient should not be coded again. Patient eventually . FINAL DIAGNOSES: Cardiorespiratory arrest secondary to covid 19 pneumonia Healthcare associated pneumonia Sepsis Probable scabies Multiple pressure injuries, present on admission GERD Diabetes mellitus Schizophrenia Hypertension COPD History of kidney CA Osteoarthritis CKD Anemia PVD Cardiomyopathy with EF of 35% Systolic heart failure DISPOSITION: Patient . I have been assigned to complete a discharge summary on this account, I was not involved with the patient's management.--ROSHAN Cordero Jacqueline Robles NP Jun 27, 2019 16:59
== END 2019-06-25 11:15 | disposition expired | DRG 871 ==
LOC: EDBD 02:11 → EDUNIT# 02:11 → EMR 02:34 → 2W 03:48 → EDBEDREQ 13:44 → 2E 06-17 13:52 → 4E 06-18 17:19 → 2W 06-20 15:06 → ICU 06-24 23:12
PROC: 0BH17EZ Insertion of Endotracheal Airway into Trachea, Via Natural or Artificial Opening (ICD-10-PCS; principal; 2019-06-25)
PROC: 5A1935Z Respiratory Ventilation, Less than 24 Consecutive Hours (ICD-10-PCS; principal; 2019-06-25)
PROC: 06HM33Z Insertion of Infusion Device into Right Femoral Vein, Percutaneous Approach (ICD-10-PCS; principal; 2019-06-25)
DX: A41.89 Other specified sepsis (principal); L89.524 Pressure ulcer of left ankle, stage 4; L89.104 Pressure ulcer of unspecified part of back, stage 4; U07.1 COVID-19; J12.89 Other viral pneumonia; R65.21 Severe sepsis with septic shock; J96.00 Acute respiratory failure, unspecified whether with hypoxia or hypercapnia; N17.9 Acute kidney failure, unspecified; E46 Unspecified protein-calorie malnutrition; I50.22 Chronic systolic (congestive) heart failure; I82.409 Acute embolism and thrombosis of unspecified deep veins of unspecified lower extremity; C64.1 Malignant neoplasm of right kidney, except renal pelvis; I42.9 Cardiomyopathy, unspecified; I13.0 Hypertensive heart and chronic kidney disease with heart failure and stage 1 through stage 4 chronic kidney disease, or unspecified chronic kidney disease; Z43.1 Encounter for attention to gastrostomy; Z68.22 Body mass index [BMI] 22.0-22.9, adult; I73.9 Peripheral vascular disease, unspecified; Z86.718 Personal history of other venous thrombosis and embolism; B86 Scabies; L89.90 Pressure ulcer of unspecified site, unspecified stage; L89.159 Pressure ulcer of sacral region, unspecified stage; L89.619 Pressure ulcer of right heel, unspecified stage; K21.9 Gastro-esophageal reflux disease without esophagitis; F20.9 Schizophrenia, unspecified; M19.90 Unspecified osteoarthritis, unspecified site; E11.22 Type 2 diabetes mellitus with diabetic chronic kidney disease; N18.9 Chronic kidney disease, unspecified; J44.9 Chronic obstructive pulmonary disease, unspecified; Z85.528 Personal history of other malignant neoplasm of kidney; D64.9 Anemia, unspecified; Z86.14 Personal history of Methicillin resistant Staphylococcus aureus infection; D69.6 Thrombocytopenia, unspecified
CPT/HCPCS: 36415; 36600; 71045; 74018; 80048; 80053; 80069; 80202; 81003; 82550; 82553; 82803; 82962; 83605; 83735; 84100; 84484; 85007; 85025; 85651; 86140; 86710; 87040; 87635; 92950; 93005; 94002; 94003; 96361; 96365; 96368; 99285; J0171; J7030